=== PATIENT | female | born 1990 | race Caucasian/White ===

== ENCOUNTER → 2016-08-06 | Outpatient (CLI) | payer BC ==
[2016-08-06 15:12] VITALS: BP 144/77; PULSE 76; RESP 14; TEMP 98.4; BMI 42.2
--- NOTE | 2016-08-06 15:42 | P.HPBAR ---
Bariatric H&P - History & Physicial H&P Date: 08/06/16 History & Physicial: Visit/CC: sleeve f/u (March 2016) Patient initial contact: Initial weight: 138.062 kg Initial weight in pounds: 304.37 Height: 5 ft 3 in Initial BMI: 53.8 Last weight: Current weight: 108.136 kg Current weight in pounds: 238.40 Current BMI: 42.2 [place] body weight (based on NIH guidelines): 52.163 kg Excess body weight loss: 34.8% The patient is a 26 year-old F who presents for Bariatric Assessment. The patient presents for sleeve follow-up. She is doing quite well. She has minimal GERD symptoms. She denies any dysphagia. She's lost approximately 65 pounds since surgery. Past Medical History Past Medical History: No Reported History Additional Past Medical History / Comment(s): NAUSEA AND VOMITING History of Any Multi-Drug Resistant Organisms: None Reported Past Surgical History: Bariatric Surgery, Cholecystectomy Additional Past Surgical History / Comment(s): right fallopian tube removed May 2015, SLEEVE GASTRECTOMY 03/26/16 Past Anesthesia/Blood Transfusion Reactions: Postoperative Nausea & Vomiting ( PONV) Past Psychological History: Panic Disorder Smoking Status: Never smoker Past Alcohol Use History: None Reported Past Drug Use History: None Reported - Past Family History Sister(s) Family Medical History: Deep Vein Thrombosis (DVT) Mother Additional Family Medical History / Comment(s): HEART PROBLEMS, IRREG RYTHM Father Family Medical History: Hyperlipidemia, Hypertension Surgical - Exam Vital Signs Temp Pulse Resp BP 98.4 F 76 14 144/77 08/06/16 15:06 08/06/16 15:06 08/06/16 15:06 08/06/16 15:06 - General well developed, no distress - Eyes PERRL - Abdomen Abdomen: soft, non tender Bariatric Assessment & Plan Plan: Status post sleeve gastrectomy. Patient's input well. Her weight loss has been excellent. Her GERD symptoms will be observed. She is currently being treated with omeprazole. She'll follow-up one month. Bariatric Checklist Checklist: Plan: Checklist: EGD: 1. Hiatal hernia: 2. H. Pylori: HgbA1c: Vitamin D: Smoking: Never smoker Primary care physician referral: Dr. Allen Psychiatry clearance: Cardiology clearance: Sleep study: Diet journal: VTE risk score: VTE risk level: Rehab needs at discharge:
[2016-08-06 17:04] LABS: CH 28.8; CHCM 31.7; HCT 38.9 % (34.0-46.0); HDW 2.57; HGB 12.4 gm/dL (11.4-16.0); MCH 29.1 pg (25.0-35.0); MCHC 31.9 g/dL (31.0-37.0); MCV 91.2 fL (80.0-100.0); Mean Platelet Volume 7.3; RBC 4.26 m/uL (3.80-5.40); RDW 13.5 % (11.5-15.5); WBC 6.4 k/uL (3.8-10.6)
[2016-08-06 17:28] LABS: ALT 49 U/L (9-52); AST 30 U/L (14-36); Alkaline Phosphatase 80 U/L (38-126); Anion Gap 11 mmol/L; Blood Urea Nitrogen 13 mg/dL (7-17); Carbon Dioxide 25 mmol/L (22-30); Chloride 107 mmol/L (98-107); Glucose 85 mg/dL (74-99); Non-African American GFR(MDRD) >60 (>60 ml/min/1.73 sqM); Potassium 4.9 mmol/L (3.5-5.1); Sodium 143 mmol/L (137-145); Total Bilirubin 0.5 mg/dL (0.2-1.3); Total Protein 6.6 g/dL (6.3-8.2)
[2016-08-06 17:38] LABS: Prealbumin 17 mg/dL (18-36); Total Iron Binding Capacity 342 ug/dL (265-497)
[2016-08-06 18:33] LABS: Vitamin B12 424 pg/mL (239-931)
== END | disposition home or self-care (01) ==
LOC: BARWHC3 14:49
PROVIDERS: ATTEND Surgery
DX: Z48.815 Encounter for surgical aftercare following surgery on the digestive system (principal); Z71.3 Dietary counseling and surveillance; Z98.84 Bariatric surgery status; E66.01 Morbid (severe) obesity due to excess calories; Z68.41 Body mass index [BMI] 40.0-44.9, adult; K21.9 Gastro-esophageal reflux disease without esophagitis; Z79.899 Other long term (current) drug therapy
CPT/HCPCS: 36415; 80053; 82306; 82607; 82746; 83550; 84134; 84425; 84443; 85027; 99211

== ENCOUNTER → 2016-09-10 | Outpatient (CLI) | payer BC ==
[2016-09-10 13:40] VITALS: BP 123/82; PULSE 56; TEMP 98.2; BMI 40.4
--- NOTE | 2016-09-10 14:07 | P.HPBAR ---
Bariatric H&P - History & Physicial H&P Date: 09/10/16 History & Physicial: Visit/CC: 6 MONTH FOLLOW UP VISIT Patient initial contact: Initial weight: 138.062 kg Initial weight in pounds: 304.37 Height: 5 ft 3 in Initial BMI: 53.8 Last weight: Current weight: 103.51 kg Current weight in pounds: 228.20 Current BMI: 40.4 [place] body weight (based on NIH guidelines): 52.163 kg Excess body weight loss: 40.2% The patient is a 26 year-old F who presents for Bariatric Assessment. The patient presents for sleeve gastrectomy follow-up. She states that she got the flu last week. Her entire family was sick. She had a three-day history of nausea vomiting. Patient states that her symptoms have resolved. She denies any nausea or vomiting today. She's able to drink water without any difficulty. She's had minimal GERD symptoms. Past Medical History Past Medical History: No Reported History Additional Past Medical History / Comment(s): NAUSEA AND VOMITING History of Any Multi-Drug Resistant Organisms: None Reported Past Surgical History: Bariatric Surgery, Cholecystectomy Additional Past Surgical History / Comment(s): right fallopian tube removed May 2015, SLEEVE GASTRECTOMY 03/26/16 Past Anesthesia/Blood Transfusion Reactions: Postoperative Nausea & Vomiting ( PONV) Past Psychological History: Panic Disorder Smoking Status: Never smoker Past Alcohol Use History: None Reported Past Drug Use History: None Reported - Past Family History Sister(s) Family Medical History: Deep Vein Thrombosis (DVT) Mother Additional Family Medical History / Comment(s): HEART PROBLEMS, IRREG RYTHM Father Family Medical History: Hyperlipidemia, Hypertension Surgical - Exam Vital Signs Temp Pulse BP 98.2 F 56 L 123/82 09/10/16 13:37 09/10/16 13:37 09/10/16 13:37 - General well developed, no distress - Eyes PERRL - ENT normal pinna - Neck no masses - Respiratory normal expansion - Cardiovascular Rhythm: regular - Abdomen Abdomen: soft, non tender Bariatric Assessment & Plan Plan: Status post sleeve gastrectomy. Patient's is doing well with weight loss. She will follow-up in one month. Her GERD symptoms we will observe. Bariatric Checklist Checklist: Plan: Checklist: EGD: 1. Hiatal hernia: 2. H. Pylori: HgbA1c: Vitamin D: Smoking: Never smoker Primary care physician referral: Dr. Allen Psychiatry clearance: Cardiology clearance: Sleep study: Diet journal: VTE risk score: VTE risk level: Rehab needs at discharge:
== END | disposition home or self-care (01) ==
LOC: BARWHC3 12:50
PROVIDERS: ATTEND Surgery
DX: Z48.815 Encounter for surgical aftercare following surgery on the digestive system (principal); Z71.3 Dietary counseling and surveillance; K21.9 Gastro-esophageal reflux disease without esophagitis; E55.9 Vitamin D deficiency, unspecified; Z98.84 Bariatric surgery status; Z68.41 Body mass index [BMI] 40.0-44.9, adult
CPT/HCPCS: 99211

== ENCOUNTER 2016-09-30 19:53 | Inpatient (IN) | payer BC, OTHER ==
[2016-09-30] MEDS ORDERED: ONDANSETRON 4 MG/2 ML VIAL IVP STA ×2 (21:19→22:51)
[2016-09-30] MEDS ORDERED: SODIUM CHLORIDE 0.9% 500 ML IV STA (21:19)
[2016-09-30] MEDS ORDERED: MORPHINE SULFATE 4 MG/ML SYRINGE IV STA (21:19)
--- NOTE | 2016-09-30 21:23 | ED ---
Abdominal Pain HPI - General Chief Complaint: Abdominal Pain Stated Complaint: NVD Time Seen by Provider: 09/30/16 21:01 Source: patient Mode of arrival: wheelchair Limitations: no limitations - History of Present Illness Initial Comments: This patient is a 26-year-old woman with history of previous gastric sleeve surgery who presents with complaint that she developed vomiting and diarrhea this morning before she went to work. She states that she did go to work today but then was sent home because she was not feeling well. She had developed epigastric pain that she describes as sharp and aching. She has also continued to have multiple episodes of the vomiting and diarrhea. She has not seen any hematemesis or bloody or dark tarry stools. She states that she had similar symptoms to this back in April when she states she had an obstruction of her "upper intestinal tract" following the gastric sleeve surgery. MD Complaint: abdominal pain Onset/Timin -: hour(s) Location: periumbilical, epigastric Radiation: none Migration to: no migration Severity: severe Quality: aching, sharp Consistency: constant Improves With: nothing Worsens With: nothing Associated Symptoms: nausea, vomiting, diarrhea - Related Data Home Medications Medication Instructions Recorded Confirmed Multivitamin [Multivitamins Adult 1 each PO BID 08/06/16 09/30/16 Gummies] Allergies Allergy/AdvReac Type Severity Reaction Status Date / Time amoxicillin [Amoxicillin] AdvReac yeast Verified 09/30/16 20:22 infection Review of Systems ROS Statement: Those systems with pertinent positive or pertinent negative responses have been documented in the HPI. ROS Other: All systems not noted in ROS Statement are negative. Constitutional: Denies: fever, chills, weakness Respiratory: Denies: cough, dyspnea Cardiovascular: Denies: chest pain, syncope Gastrointestinal: Reports: abdominal pain, nausea, vomiting, diarrhea. Denies: hematemesis, melena, hematochezia Genitourinary: Denies: dysuria Musculoskeletal: Denies: back pain Skin: Denies: rash Neurological: Denies: headache, weakness, numbness Past Medical History Past Medical History: No Reported History Additional Past Medical History / Comment(s): NAUSEA AND VOMITING History of Any Multi-Drug Resistant Organisms: None Reported Past Surgical History: Bariatric Surgery, Cholecystectomy Additional Past Surgical History / Comment(s): right fallopian tube removed May 2015, SLEEVE GASTRECTOMY 03/26/16 Past Anesthesia/Blood Transfusion Reactions: Postoperative Nausea & Vomiting ( PONV) Past Psychological History: Panic Disorder Smoking Status: Never smoker Past Alcohol Use History: None Reported Past Drug Use History: None Reported - Past Family History Sister(s) Family Medical History: Deep Vein Thrombosis (DVT) Mother Additional Family Medical History / Comment(s): HEART PROBLEMS, IRREG RYTHM Father Family Medical History: Hyperlipidemia, Hypertension General Exam Limitations: no limitations General appearance: alert, obese Head exam: Present: atraumatic, normocephalic Eye exam: Present: normal appearance. Absent: scleral icterus, conjunctival injection ENT exam: Present: mucous membranes dry Neck exam: Present: normal inspection Respiratory exam: Present: normal lung sounds bilaterally. Absent: respiratory distress, wheezes, rales, rhonchi, stridor Cardiovascular Exam: Present: regular rate, normal rhythm, normal heart sounds. Absent: systolic murmur, diastolic murmur, rubs, gallop GI/Abdominal exam: Present: soft, tenderness (epigastric tenderness), normal bowel sounds. Absent: distended, guarding, rebound, rigid, mass, bruit, pulsatile mass, hernia Extremities exam: Present: normal inspection, normal capillary refill. Absent: pedal edema, calf tenderness Back exam: Present: normal inspection. Absent: CVA tenderness (R), CVA tenderness (L) Skin exam: Present: warm, dry, intact, normal color. Absent: rash, cyanosis, diaphoretic, erythema, petechiae, pallor, mottled Course Vital Signs 09/30/16 09/30/16 20:14 23:03 Temperature 100.1 F H Pulse Rate 106 H 91 Respiratory 22 16 Rate Blood Pressure 143/97 125/59 O2 Sat by Pulse 100 100 Oximetry Medical Decision Making - Medical Decision Making Patient's a 26-year-old woman with nausea, vomiting and abdominal pain. The workup does reveal elevated transaminases levels. I did review with the patient her use of acetaminophen-containing medications and the patient states that she has not had any Tylenol nor to her knowledge any combination medicines. The ultrasound is negative. Discussed case with Dr. Cruz who is covering tonight and will admit the patient for observation. She has had improvement of the vomiting and some improvement in the pain though it does continue. - Lab Data Result diagrams: 09/30/16 21:45 09/30/16 21:45 Lab Results 09/30/16 09/30/16 09/30/16 Range/Units 21:16 21:16 21:45 WBC (3.8-10.6) k/uL RBC (3.80-5.40) m/uL Hgb (11.4-16.0) gm/dL Hct (34.0-46.0) % MCV (80.0-100.0) fL MCH (25.0-35.0) pg MCHC (31.0-37.0) g/dL RDW (11.5-15.5) % Plt Count (150-450) k/uL Neutrophils % % Lymphocytes % % Monocytes % % Eosinophils % % Basophils % % Neutrophils # (1.3-7.7) k/uL Lymphocytes # (1.0-4.8) k/uL Monocytes # (0-1.0) k/uL Eosinophils # (0-0.7) k/uL Basophils # (0-0.2) k/uL Sodium 140 (137-145) mmol/L Potassium 3.7 (3.5-5.1) mmol/L Chloride 105 (98-107) mmol/L Carbon Dioxide 23 (22-30) mmol/L Anion Gap 12 mmol/L BUN 13 (7-17) mg/dL Creatinine 0.69 (0.52-1.04) mg/dL Est GFR (MDRD) Af Amer >60 (>60 ml/min/1.73 sqM) Est GFR (MDRD) Non-Af >60 (>60 ml/min/1.73 sqM) Glucose 94 (74-99) mg/dL Calcium 8.8 (8.4-10.2) mg/dL Total Bilirubin 1.2 (0.2-1.3) mg/dL AST 311 H (14-36) U/L ALT 155 H (9-52) U/L Alkaline Phosphatase 105 (38-126) U/L Total Protein 6.9 (6.3-8.2) g/dL Albumin 4.0 (3.5-5.0) g/dL Amylase 39 (30-110) U/L Lipase 92 (23-300) U/L Urine Color Yellow Urine Appearance Cloudy H (Clear) Urine pH 5.5 (5.0-8.0) Ur Specific [place] 1.028 (1.001-1.035) Urine Protein Trace H (Negative) Urine Glucose (UA) Negative (Negative) Urine Ketones 1+ H (Negative) Urine Blood Negative (Negative) Urine Nitrite Negative (Negative) Urine Bilirubin 1+ H (Negative) Urine Urobilinogen 2.0 (<2.0) mg/dL Ur Leukocyte Esterase Trace H (Negative) Urine RBC <1 (0-5) /hpf Urine WBC 5 (0-5) /hpf Ur Squamous Epith Cells 11 H (0-4) /hpf Calcium Oxalate Crystal Many H (None) /hpf Hyaline Casts 1 (0-2) /lpf Urine Mucus Rare H (None) /hpf Urine HCG, Qual Not Detected (Not Detectd) 09/30/16 Range/Units 21:45 WBC 6.5 (3.8-10.6) k/uL RBC 4.69 (3.80-5.40) m/uL Hgb 13.5 (11.4-16.0) gm/dL Hct 41.7 (34.0-46.0) % MCV 88.8 (80.0-100.0) fL MCH 28.8 (25.0-35.0) pg MCHC 32.4 (31.0-37.0) g/dL RDW 13.2 (11.5-15.5) % Plt Count 225 (150-450) k/uL Neutrophils % 83 % Lymphocytes % 11 % Monocytes % 4 % Eosinophils % 1 % Basophils % 0 % Neutrophils # 5.3 (1.3-7.7) k/uL Lymphocytes # 0.7 L (1.0-4.8) k/uL Monocytes # 0.3 (0-1.0) k/uL Eosinophils # 0.0 (0-0.7) k/uL Basophils # 0.0 (0-0.2) k/uL Sodium (137-145) mmol/L Potassium (3.5-5.1) mmol/L Chloride (98-107) mmol/L Carbon Dioxide (22-30) mmol/L Anion Gap mmol/L BUN (7-17) mg/dL Creatinine (0.52-1.04) mg/dL Est GFR (MDRD) Af Amer (>60 ml/min/1.73 sqM) Est GFR (MDRD) Non-Af (>60 ml/min/1.73 sqM) Glucose (74-99) mg/dL Calcium (8.4-10.2) mg/dL Total Bilirubin (0.2-1.3) mg/dL AST (14-36) U/L ALT (9-52) U/L Alkaline Phosphatase (38-126) U/L Total Protein (6.3-8.2) g/dL Albumin (3.5-5.0) g/dL Amylase (30-110) U/L Lipase (23-300) U/L Urine Color Urine Appearance (Clear) Urine pH (5.0-8.0) Ur Specific [place] (1.001-1.035) Urine Protein (Negative) Urine Glucose (UA) (Negative) Urine Ketones (Negative) Urine Blood (Negative) Urine Nitrite (Negative) Urine Bilirubin (Negative) Urine Urobilinogen (<2.0) mg/dL Ur Leukocyte Esterase (Negative) Urine RBC (0-5) /hpf Urine WBC (0-5) /hpf Ur Squamous Epith Cells (0-4) /hpf Calcium Oxalate Crystal (None) /hpf Hyaline Casts (0-2) /lpf Urine Mucus (None) /hpf Urine HCG, Qual (Not Detectd) Disposition Clinical Impression: Abdominal pain Disposition: ADMITTED IP TO THIS HOSP Condition: Fair
[2016-09-30 21:31] LABS: Appearance,Urine Cloudy (Clear); Bilirubin,Urine 1+ (Negative); Calcium Oxalate Crystals,Urine Many /hpf; Glucose,Urine (UA) Negative (Negative); Ketones,Urine 1+ (Negative); Leukocyte Esterase,Urine Trace (Negative); Mucus,Urine Rare /hpf; Nitrite,Urine Negative (Negative); PH, Urine 5.5 (5.0-8.0); Particle Count 5799; Protein,Urine Trace (Negative); RBC,Urine <1 /hpf (0-5); Specific Gravity,Urine 1.028 (1.001-1.035); Squamous Epithelial Cell,Urine 11 /hpf (0-4); UA Billing (MACRO vs. MICRO) MICRO; WBC,Urine 5 /hpf (0-5)
[2016-09-30 21:51] LABS: Basophils % (A) 0 %; CHCM 32.7; Eosinophils % (A) 1 %; HCT 41.7 % (34.0-46.0); HDW 2.61; HGB 13.5 gm/dL (11.4-16.0); Luc # (Auto) 0.08; Luc % (Auto) 1; Lymphocytes # (A) 0.7 k/uL (1.0-4.8); Lymphocytes % (A) 11 %; MCH 28.8 pg (25.0-35.0); MCHC 32.4 g/dL (31.0-37.0); MCV 88.8 fL (80.0-100.0); Mean Platelet Volume 7.3; Monocytes # (A) 0.3 k/uL (0-1.0); Monocytes % (A) 4 %; Neutrophils # (A) 5.3 k/uL (1.3-7.7); Neutrophils % (A) 83 %; RBC 4.69 m/uL (3.80-5.40); RDW 13.2 % (11.5-15.5); WBC 6.5 k/uL (3.8-10.6); WBC (Perox) 6.54
[2016-09-30 22:01] LABS: ALT 155 U/L (9-52); AST 311 U/L (14-36); Alkaline Phosphatase 105 U/L (38-126); Amylase 39 U/L (30-110); Anion Gap 12 mmol/L; Blood Urea Nitrogen 13 mg/dL (7-17); Calcium 8.8 mg/dL (8.4-10.2); Carbon Dioxide 23 mmol/L (22-30); Chloride 105 mmol/L (98-107); Glucose 94 mg/dL (74-99); Non-African American GFR(MDRD) >60 (>60 ml/min/1.73 sqM); Potassium 3.7 mmol/L (3.5-5.1); Sodium 140 mmol/L (137-145); Total Bilirubin 1.2 mg/dL (0.2-1.3); Total Protein 6.9 g/dL (6.3-8.2)
--- NOTE | 2016-09-30 22:01 | XR ---
EXAMINATION TYPE: XR abdomen acute w cxr DATE OF EXAM: 09/30/2016 9:55 PM CLINICAL HISTORY: Pain per order. N/V/D per patient. TECHNIQUE: Single frontal view of chest is obtained. Supine and upright views of the abdomen are acq uired. COMPARISON: CXR 07-13-2014. CT abdomen and pelvis 05-11-2016. FINDINGS: The lungs are grossly clear without pleural effusion or pneumothorax. Cardiac silhouette size appears within normal limits. Osseous structures are intact. Sutures epigastric region from sleeve redemonstrated. Gas is noted in nondistended small bowel loops . Gas and fecal material is seen in nondistended colon. Allegra. clips redemonstrated. No pneumoperi toneum, visceromegaly, or suspicious calcification is identified. The osseous structures are intact. IMPRESSION: 1. No acute pulmonary process. 2. Overall nonspecific but likely nonobstructive bowel gas pattern.
[2016-09-30] MEDS ORDERED: HYDROmorphone 1 MG/ML 1 ML SYRINGE IVP STA (22:51)
--- NOTE | 2016-10-01 01:23 | US ---
EXAM: US Abdomen Complete. CLINICAL HISTORY: Reason: Pain, ATTN RUQ. TECHNIQUE: Real-time ultrasound of the abdomen (complete) with image documentation. COMPARISON: CT abdomen and pelvis, 05/11/16 FINDINGS: Liver: Liver measures 13.3 cm. No intrahepatic bile duct dilation. Gallbladder: Gallbladder surgically absent. Common bile duct: CBD measures 3.6 mm. No stones. No dilation. Pancreas: Unremarkable as visualized. Kidneys: Right kidney measures 10.3 cm long. No stones. No hydronephrosis. IMPRESSION: No acute findings. Gallbladder surgically absent.
[2016-10-01] MEDS ORDERED: NALOXONE 0.4 MG/ML 1 ML VIAL IV PRN (02:43)
[2016-10-01] MEDS ORDERED: ONDANSETRON 4 MG/2 ML VIAL IVP PRN (02:43)
[2016-10-01] MEDS ORDERED: SODIUM CHLORIDE 0.9% 1,000 ML IV SCH (02:45)
[2016-10-01] MEDS: FAMOTIDINE 20 MG TAB PO SCH ×2 (09:07→21:00)
[2016-10-01 11:32] LABS: Glucose,Whole Blood 72 mg/dL (75-99)
[2016-10-01] MEDS ORDERED: IOHEXOL 350 MG/ML 25 ML BOTTLE (ORAL USE) PO PRN (12:38)
[2016-10-01] MEDS ORDERED: RX INFO: IV CONTRAST WAS GIVEN 1 EACH MISC MISCELLANE PRN (12:38)
--- NOTE | 2016-10-01 12:42 | P.GSHP ---
History of Present Illness H&P Date: 10/01/16 Chief Complaint: Abdominal pain Patient hospitalized through the emergency department last night with complaints of abdominal pain nausea vomiting and diarrhea. She had a small amount of blood within the emesis on one occasion. She is a patient of Dr. Neely and underwent sleeve gastrectomy in March of last year. Apparently postoperatively she had an episode of a bowel obstruction requiring a one-week hospitalization. On this occasion she first began feeling ill a day or so prior to arrival. She was having some loose stools as well. She thought it may have been related to something that she had eaten. Stools have been brownish in color. No fevers. Her liver enzymes were elevated. She is post cholecystectomy in 2007. White blood cell count amylase and lipase are all normal. She is afebrile. She is still nauseous. No further stool since her hospitalization. Pain is in the upper midabdomen. An ultrasound was done which was normal. No additional studies were performed. She had a T-max of 100.1 on arrival. - Review of Systems Comment: The patient denies any acute changes in his vision or hearing, no dysphagia or odynophagia, no chest pain or shortness of breath, no dysuria or hematuria, no headache, no runny nose, no rectal bleeding or melena, no unexplained weight loss Past Medical History Past Medical History: No Reported History Additional Past Medical History / Comment(s): NAUSEA AND VOMITING History of Any Multi-Drug Resistant Organisms: None Reported Past Surgical History: Bariatric Surgery, Cholecystectomy Additional Past Surgical History / Comment(s): right fallopian tube removed May 2015, SLEEVE GASTRECTOMY 03/26/16 Past Anesthesia/Blood Transfusion Reactions: Postoperative Nausea & Vomiting ( PONV) Past Psychological History: Panic Disorder Smoking Status: Never smoker Past Alcohol Use History: None Reported Past Drug Use History: None Reported - Past Family History Sister(s) Family Medical History: Deep Vein Thrombosis (DVT) Mother Family Medical History: Hyperlipidemia, Hypertension Additional Family Medical History / Comment(s): HEART PROBLEMS, IRREG RYTHM Father Family Medical History: Hyperlipidemia, Hypertension Medications and Allergies Home Medications Medication Instructions Recorded Confirmed Type Multivitamin [Multivitamins Adult 1 tab PO BID 08/06/16 10/01/16 History Gummies] Allergies Allergy/AdvReac Type Severity Reaction Status Date / Time amoxicillin [Amoxicillin] AdvReac yeast Verified 10/01/16 08:37 infection Surgical - Exam Vital Signs Temp Pulse Resp BP Pulse Ox 100.1 F H 106 H 22 143/97 100 09/30/16 20:14 09/30/16 20:14 09/30/16 20:14 09/30/16 20:14 09/30/16 20:14 Physical exam: General: Well-developed, well-nourished HEENT: Normocephalic, sclerae nonicteric Abdomen: Mild upper abdominal tenderness, nondistended Extremities: No edema Neuro: Alert and oriented Results - Labs 09/30/16 21:45 09/30/16 21:45 Abnormal Lab Results - Last 24 Hours (Table) 10/01/16 Range/Units 11:31 POC Glucose (mg/dL) 72 L (75-99) mg/dL Assessment and Plan (1) Abdominal pain Narrative/Plan: Abdominal pain with elevated liver enzymes. Will order a CT abdomen and pelvis to better evaluate this patient's symptoms. Continue nothing by mouth for now. Repeat lab work pending for today. Status: Acute
[2016-10-01] MEDS: DEXTROSE 5%-0.9% NACL 1,000 ML IV SCH ×2 (13:12→21:02)
[2016-10-01 13:48] LABS: Basophils % (A) 0 %; CH 29.2; CHCM 32.5; Eosinophils # (A) 0.1 k/uL (0-0.7); Eosinophils % (A) 4 %; HCT 37.9 % (34.0-46.0); HDW 2.59; Luc # (Auto) 0.08; Luc % (Auto) 3; Lymphocytes # (A) 0.8 k/uL (1.0-4.8); Lymphocytes % (A) 28 %; MCH 28.7 pg (25.0-35.0); MCHC 31.7 g/dL (31.0-37.0); MCV 90.4 fL (80.0-100.0); Mean Platelet Volume 7.9; Monocytes # (A) 0.2 k/uL (0-1.0); Monocytes % (A) 7 %; Neutrophils # (A) 1.7 k/uL (1.3-7.7); Neutrophils % (A) 58 %; RDW 13.4 % (11.5-15.5); WBC 2.9 k/uL (3.8-10.6); WBC (Perox) 3.07
[2016-10-01 13:54] LABS: ALT 930 U/L (9-52); Alkaline Phosphatase 135 U/L (38-126); Anion Gap 10 mmol/L; Blood Urea Nitrogen 11 mg/dL (7-17); Calcium 8.5 mg/dL (8.4-10.2); Carbon Dioxide 23 mmol/L (22-30); Chloride 108 mmol/L (98-107); Glucose 84 mg/dL (74-99); Non-African American GFR(MDRD) >60 (>60 ml/min/1.73 sqM); Sodium 141 mmol/L (137-145); Total Bilirubin 1.3 mg/dL (0.2-1.3); Total Protein 5.9 g/dL (6.3-8.2)
[2016-10-01 14:06] LABS: AST 959 U/L (14-36)
--- NOTE | 2016-10-01 14:17 | P.CONS ---
History of Present Illness - Reason for Consult Consult date: 10/01/16 Requesting physician: Aaron Cruz - Chief Complaint Right upper quadrant abdominal pain radiating to the back - History of Present Illness There is a 26-year-old morbidly obese female who presents to the hospital via the emergency room with acute abdominal pain nausea vomiting and loose stool patient had a small amount of blood with emesis on one occasion she is patient of Dr. 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 He's had no fevers liver enzymes are elevated. Post cholecystectomy in 2007. White cell count Amylase lipase are all normal and she is afebrile patient is still nauseous and has moderate to significant abdominal pain T-max was approximately 100.1 on arrival to the emergency room Review of Systems Constitutional: Reports as per HPI Ears, nose, mouth and throat: Reports as per HPI Cardiovascular: Reports as per HPI Respiratory: Reports as per HPI Gastrointestinal: Reports abdominal pain, Reports nausea, Reports vomiting Past Medical History Past Medical History: No Reported History Additional Past Medical History / Comment(s): NAUSEA AND VOMITING, history of sleeve gastrectomy as well as laparoscopic gallbladder surgery as well History of Any Multi-Drug Resistant Organisms: None Reported Past Surgical History: Bariatric Surgery, Cholecystectomy Additional Past Surgical History / Comment(s): right fallopian tube removed May 2015, SLEEVE GASTRECTOMY 03/26/16 Past Anesthesia/Blood Transfusion Reactions: Postoperative Nausea & Vomiting ( PONV) Past Psychological History: Panic Disorder Smoking Status: Never smoker Past Alcohol Use History: None Reported Past Drug Use History: None Reported - Past Family History Sister(s) Family Medical History: Deep Vein Thrombosis (DVT) Mother Family Medical History: Hyperlipidemia, Hypertension Additional Family Medical History / Comment(s): HEART PROBLEMS, IRREG RYTHM Father Family Medical History: Hyperlipidemia, Hypertension Medications and Allergies Home Medications Medication Instructions Recorded Confirmed Type Multivitamin [Multivitamins Adult 1 tab PO BID 08/06/16 10/01/16 History Gummies] Allergies Allergy/AdvReac Type Severity Reaction Status Date / Time amoxicillin [Amoxicillin] AdvReac yeast Verified 10/01/16 08:37 infection Physical Exam Osteopathic Statement: *. No significant issues noted on an osteopathic structural exam other than those noted in the History and Physical/Consult. Vitals: Vital Signs Temp Pulse Pulse Resp BP Pulse Ox 10/01/16 14:02 98.3 F 57 L 17 113/76 99 10/01/16 03:30 98.6 F 94 18 133/75 Intake and Output 09/30/16 10/01/16 10/01/16 22:59 06:59 14:59 Intake Total 350 100 Balance 350 100 Intake: Intake, IV Titration 200 Amount Sodium Chloride 0.9% 1, 200 000 ml @ 100 mls/hr IV . Q10H JULIO Rx#:[id number] Oral 150 100 Other: Voiding Method Toilet # Voids 1 General: [Patient awake, alert and oriented times 3. Patient in no acute distress.] HEENT: [PERRL. EOMI. No pharyngeal erythema or exudate.] Neck: [No adenopathy.] Cardiac: [Heart regular in rate and rhythm. No S3. No S4. No clicks, rubs. No murmur.] Lungs: [Clear to auscultation bilaterally.] Abdomen: [No mass. No organomegaly. Bowel sounds presnt and pain right upper quadrant radiating to mid epigastric on minimal palpation patient does complains of significant pain Extremes: [No edema no cyanosis no claudication normal pulses] : [] Musculoskeletal: [No joint erythema, edema or tenderness.] Skin: [No rash.] Neurologic: [No lateralizing deficits. CN II - XII grossly intact.] Lymphatic: [No adenopathy.] Results CBC & Chem 7: 10/01/16 13:20 10/01/16 13:20 Labs: Abnormal Lab Results - Last 24 Hours (Table) 10/01/16 10/01/16 10/01/16 Range/Units 11:31 13:20 13:20 WBC 2.9 L (3.8-10.6) k/uL Lymphocytes # 0.8 L (1.0-4.8) k/uL Chloride 108 H (98-107) mmol/L POC Glucose (mg/dL) 72 L (75-99) mg/dL ALT 930 H (9-52) U/L Alkaline Phosphatase 135 H (38-126) U/L Total Protein 5.9 L (6.3-8.2) g/dL Albumin 3.2 L (3.5-5.0) g/dL Assessment and Plan (1) Abdominal pain Narrative/Plan: Elevated liver enzymes and moderate to severe abdominal pain right upper quadrant CT abdomen and pelvis is pending Status: Acute Plan: Thank you Dr. Cruz for this message Suggesting consultation awaiting results of CAT scan at this time
--- NOTE | 2016-10-01 15:29 | CT ---
EXAMINATION TYPE: CT abdomen pelvis w con DATE OF EXAM: 10/01/2016 3:02 PM COMPARISON: 05/11/2016 HISTORY: Right upper quadrant pain and vomiting CT DLP: 1667 mGycm Automated exposure control for dose reduction was used. CONTRAST: CT scan of the abdomen pelvis is performed , patient injected with 100 mL of Omnipaque 300. FINDINGS- LUNG BASES- No significant abnormality is appreciated. LIVER/GB-previous cholecystectomy noted. There is a wedge-shaped area of low attenuation near the dom e of the liver involving the right lobe. Differential include hepatic infarct. Localized fatty infilt ration also a consideration. Hepatic injury felt less likely but should be correlated with the patien t's symptoms and history. PANCREAS- No gross abnormality is seen. SPLEEN- No gross abnormality is seen. ADRENALS- No gross abnormality is seen. KIDNEYS/BLADDER- no hydronephrosis nephrolithiasis or renal mass. BOWEL-a surgical change involving the stomach noted. No abnormal attenuation is seen along the postsu rgical gastric sleeve site.. LYMPH NODES- No greater than 1cm abdominal or pelvic lymph nodes areappreciated. OSSEOUS STRUCTURES- No significant abnormality is seen. OTHER-aorta of normal caliber. 1.5 cm right ovarian cyst noted. IMPRESSION- 1. There is a wedge-shaped have defect extending the outer margin of the liver which is not definitiv papo seen on the previous exam. Finding may represent an area of localized infarction of the liver whi ch would be unusual given the dual blood supply but should be correlated clinically. Localized fatty infiltration or hepatic injury not excluded although there is no surrounding sizable fluid collection . Correlate clinically.
[2016-10-01 16:40] LABS: Glucose,Whole Blood 83 mg/dL (75-99)
[2016-10-01 17:17] LABS: Amylase 30 U/L (30-110)
[2016-10-01] MEDS: MORPHINE SULFATE 4 MG/ML SYRINGE IV PRN (18:44)
[2016-10-01 21:06] LABS: Hepatitis B Surface Ag Index 0.11
[2016-10-01 21:06] LABS: Glucose,Whole Blood 84 mg/dL (75-99)
[2016-10-01 21:12] LABS: Hepatitis B Core IgM Index 0.03
[2016-10-01 21:24] LABS: Hepatitis C Virus IgG Index 0.02
[2016-10-01 21:26] LABS: Hepatitis C Virus IgG Ab Negative (Negative)
[2016-10-02] MEDS: MORPHINE SULFATE 4 MG/ML SYRINGE IV PRN ×2 (02:45→19:20)
[2016-10-02 07:20] LABS: Basophils % (A) 1 %; CH 28.8; Eosinophils # (A) 0.2 k/uL (0-0.7); Eosinophils % (A) 8 %; HCT 37.6 % (34.0-46.0); HDW 2.64; Luc # (Auto) 0.09; Luc % (Auto) 3; Lymphocytes # (A) 0.9 k/uL (1.0-4.8); Lymphocytes % (A) 29 %; MCV 90.6 fL (80.0-100.0); Mean Platelet Volume 8.1; Monocytes # (A) 0.2 k/uL (0-1.0); Monocytes % (A) 8 %; Neutrophils # (A) 1.6 k/uL (1.3-7.7); Neutrophils % (A) 52 %; RBC 4.15 m/uL (3.80-5.40); RDW 13.3 % (11.5-15.5); WBC 3.1 k/uL (3.8-10.6); WBC (Perox) 3.22
[2016-10-02 07:44] LABS: Glucose,Whole Blood 78 mg/dL (75-99)
[2016-10-02 07:59] LABS: ALT 693 U/L (9-52); AST 444 U/L (14-36); Alkaline Phosphatase 154 U/L (38-126); Anion Gap 8 mmol/L; Blood Urea Nitrogen 8 mg/dL (7-17); Calcium 8.6 mg/dL (8.4-10.2); Carbon Dioxide 26 mmol/L (22-30); Chloride 109 mmol/L (98-107); Glucose 93 mg/dL (74-99); Non-African American GFR(MDRD) >60 (>60 ml/min/1.73 sqM); Sodium 143 mmol/L (137-145); Total Bilirubin 1.3 mg/dL (0.2-1.3); Total Protein 5.6 g/dL (6.3-8.2)
[2016-10-02] MEDS: FAMOTIDINE 20 MG TAB PO SCH ×2 (08:01→19:51)
[2016-10-02] MEDS: DEXTROSE 5%-0.9% NACL 1,000 ML IV SCH ×2 (08:02→17:19)
[2016-10-02] MEDS: ONDANSETRON 4 MG/2 ML VIAL IVP PRN (09:17)
[2016-10-02] MEDS: LEVOFLOXACIN 750MG-D5W PMX 750 MG in DEXTROSE/WATER 1 150ML.BAG IVPB SCH ×2 (11:04→14:05)
[2016-10-02 12:15] LABS: Glucose,Whole Blood 91 mg/dL (75-99)
--- NOTE | 2016-10-02 13:10 | P.PN ---
Subjective Principal diagnosis: Abdominal pain Patient is a 26-year-old female with medical history significant for sleeve gastrectomy and cholecystectomy admitted with acute right-sided abdominal pain associated with nausea, vomiting, and loose stools [address] of abdomen and pelvis with evidence of wedge-shaped area of low attenuation in the dome of the liver involving the right lobe with differential diagnosis of hepatic infarct, possible fatty infiltration, or hepatic injury per radiologist. AST and ALT improved from yesterday. Alkaline phosphatase increased from yesterday. Total bilirubin within normal limits. Hepatitis panel negative. Hematology and gastroenterology has been consulted. Patient afebrile. WBC 3.1. Patient continues to complain of mostly right upper quadrant abdominal pain radiating to her back described as dull associated with nausea and vomiting. Patient reports sweats. Denies shortness of breath, chest pain, leg swelling, numbness or tingling. Patient is urinating without difficulty. Patient reports flatus without bowel movements. Objective - Vital Signs Vital signs: Vital Signs Temp 97.8 F 10/02/16 07:00 Pulse 64 10/02/16 08:00 Resp 16 10/02/16 08:00 BP 113/74 10/02/16 07:00 Pulse Ox 100 10/02/16 07:00 Intake & Output 10/01/16 10/02/16 10/02/16 18:59 06:59 18:59 Intake Total 1650 100 120 Balance 1650 100 120 Weight 99.79 kg Intake: Intake, IV Titration 750 Amount Dextrose 5%-0.9% NaCl 1, 750 000 ml @ 100 mls/hr IV . Q10H [facility] Rx#:[id number] Oral 900 100 120 Other: Voiding Method Toilet Toilet # Voids 1 1 - Exam GENERAL: Pt awake and alert, well-appearing, well-nourished, and in no acute distress. HEAD: Atraumatic, normocephalic. EYES: Pupils equal, round, and reactive to light, extraocular movements intact, sclera anicteric, conjunctiva are normal. ENT: Moist mucous membranes. NECK: Supple without lymphadenopathy or JVD. LUNGS: Breath sounds clear to auscultation bilaterally. No wheezes, rales, or rhonchi. HEART: Heart S1, S2, no S3 or S4. Regular rate and rhythm. No murmurs, rubs or gallops. ABDOMEN: Soft, right upper quadrant tenderness, nondistended, normoactive bowel sounds. No guarding, no rebound. No masses or organomegaly appreciated. EXTREMITIES: Palpable peripheral pulses. No edema. No calf tenderness. NEUROLOGICAL: Pt oriented x 3. Cranial nerves II through XII grossly intact. Strength and sensation grossly intact. PSYCH: Normal mood, normal affect. SKIN: Warm, dry, intact. Normal turgor. No rashes or lesions. - Labs CBC & Chem 7: 10/02/16 06:48 10/02/16 06:48 Labs: Abnormal Lab Results - Last 24 Hours (Table) 10/01/16 10/01/16 10/02/16 Range/Units 13:20 13:20 06:48 WBC 2.9 L 3.1 L (3.8-10.6) k/uL Lymphocytes # 0.8 L 0.9 L (1.0-4.8) k/uL Chloride 108 H (98-107) mmol/L AST 959 H (14-36) U/L ALT 930 H (9-52) U/L Alkaline Phosphatase 135 H (38-126) U/L Total Protein 5.9 L (6.3-8.2) g/dL Albumin 3.2 L (3.5-5.0) g/dL 10/02/16 Range/Units 06:48 WBC (3.8-10.6) k/uL Lymphocytes # (1.0-4.8) k/uL Chloride 109 H (98-107) mmol/L AST 444 H (14-36) U/L ALT 693 H (9-52) U/L Alkaline Phosphatase 154 H (38-126) U/L Total Protein 5.6 L (6.3-8.2) g/dL Albumin 3.0 L (3.5-5.0) g/dL Assessment and Plan Plan: Impression: 1. Right upper quadrant abdominal pain, present on admission, associated with nausea, vomiting, and diarrhea. 2. Elevated liver enzymes. 3. Wedge-shaped area of low attenuation near dome of liver involving right lobe with differential diagnosis of hepatic infarct, fatty infiltration, or hepatic injury. 4. Leukopenia. 5. 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 6. History of laparoscopic cholecystectomy. Plan: 1. Continue to monitor patient. Continue to follow with general surgery, GI service, and hematology. Did speak with Dr. Cruz and patient will be started on IV Levaquin for empiric coverage for possible underlying infectious process. Continue symptomatic and pain management. Continue IV hydration. Continue GI and DVT prophylaxis. Repeat CBC, CMP in a.m. The above impression and plan have been discussed and directed by Dr. Erickson. Epifanio CHAUDHARI acting as scribe for Dr. Erickson.
[2016-10-02] MEDS: LEVOFLOXACIN 750 MG TAB PO SCH (14:35)
[2016-10-02 17:20] LABS: Glucose,Whole Blood 104 mg/dL (75-99)
[2016-10-02] MEDS ORDERED: HYDROmorphone 1 MG/ML 1 ML SYRINGE IVP STA (20:31)
[2016-10-02 20:45] LABS: Glucose,Whole Blood 90 mg/dL (75-99)
[2016-10-02] MEDS ORDERED: HYDROmorphone 1 MG/ML 1 ML SYRINGE IVP PRN (21:48)
--- NOTE | 2016-10-02 21:52 | P.PN ---
Subjective Principal diagnosis: abdominal pain patient apparently had been doing fairly well today. She was hoping to go home. This evening per the family the pain became more severe. The mother believes that she was trying to minimize her symptoms so that she could go home after she was told she was staying she began to exhibit more symptoms. Her pain she says is stabbing in nature and present in the right upper abdomen. There is some radiation of the back. No nausea or vomiting at this point. She was eating her diet earlier today. Her liver enzymes which went up yesterday did improved today. The patient was seen by hematology and the CAT scan was apparently reviewed a second time. The likelihood of a liver infarct on that review per hematology was quite low. Isolated fatty infiltration of the liver was suspected. Underlying choledocholithiasis or cholangitis was suspected as the possible etiology for the elevation of liver enzymes. A consultation to GI was placed and I believe that is still pending at this time. Objective - Vital Signs Vital signs: Vital Signs Temp 98.2 F 10/02/16 15:00 Pulse 66 10/02/16 16:00 Resp 16 10/02/16 16:00 BP 105/69 10/02/16 15:00 Pulse Ox 99 10/02/16 15:00 Intake & Output 10/02/16 10/02/16 10/03/16 06:59 18:59 06:59 Intake Total 100 520 Balance 100 520 Weight 99.79 kg Intake: Intake, IV Titration 400 Amount Dextrose 5%-0.9% NaCl 1, 400 000 ml @ 100 mls/hr IV . Q10H [facility] Rx#:[id number] Oral 100 120 Other: Voiding Method Toilet Toilet # Voids 1 1 - Exam abdomen: Soft, mild right upper quadrant tenderness, no rebound or guarding - Labs CBC & Chem 7: 10/02/16 06:48 10/02/16 06:48 Labs: Abnormal Lab Results - Last 24 Hours (Table) 10/02/16 10/02/16 10/02/16 Range/Units 06:48 06:48 17:03 WBC 3.1 L (3.8-10.6) k/uL Lymphocytes # 0.9 L (1.0-4.8) k/uL Chloride 109 H (98-107) mmol/L POC Glucose (mg/dL) 104 H (75-99) mg/dL AST 444 H (14-36) U/L ALT 693 H (9-52) U/L Alkaline Phosphatase 154 H (38-126) U/L Total Protein 5.6 L (6.3-8.2) g/dL Albumin 3.0 L (3.5-5.0) g/dL Assessment and Plan (1) Abdominal pain Narrative/Plan: we'll plan repeat lab work in a.m. Will switch to nothing by mouth until this patient's pain is improved. Add both Dilaudid and Toradol for pain control. Await GI evaluations. Status: Acute
--- NOTE | 2016-10-03 00:58 | P.CONS ---
History of Present Illness - Reason for Consult Consult date: 10/03/16 Possible hepatic infarct - History of Present Illness The patient is a 22-year-old lady, with a prior history of bariatric surgery a few years ago. The patient came to [facility] ER as, she developed right upper quadrant pain, as well as some sweats, fever nausea and vomiting. Liver enzymes were also found to be quite elevated. She was therefore admitted for further management. Ultrasound of the abdomen, did not show any specific liver abnormality. A computed tomography scan of the abdomen and pelvis was done, which noted a possible infarct in the hepatic dome on the right. This appeared to be a different finding compared to a computed tomography scan done in 04/29, when the patient was admitted with nausea vomiting and diarrhea. Consult was therefore placed for further evaluation and recommendations. Patient denies any prior history of venous or arterial thrombo embolism, or any suspicious family history. She denies smoking, or use of any oral contraceptives or steroids. She also denies any cardiac history. Review of Systems Constitutional: Reports chills, Reports fever, Reports poor appetite Eyes: denies blurred vision, denies pain Ears: deny: decreased hearing, ear discharge, earache, tinnitus Ears, nose, mouth and throat: Denies headache, Denies sore throat Cardiovascular: Denies chest pain, Denies shortness of breath Respiratory: Denies cough Gastrointestinal: Reports abdominal pain, Reports nausea, Reports vomiting Genitourinary: Denies dysuria, Denies hematuria Musculoskeletal: Denies myalgias Integumentary: Denies pruritus, Denies rash Neurological: Denies numbness, Denies weakness Psychiatric: Reports anxiety Endocrine: Reports fatigue Hematologic/Lymphatic: Reports as per HPI Past Medical History Past Medical History: No Reported History Additional Past Medical History / Comment(s): NAUSEA AND VOMITING, history of sleeve gastrectomy as well as laparoscopic gallbladder surgery as well History of Any Multi-Drug Resistant Organisms: None Reported Past Surgical History: Bariatric Surgery, Cholecystectomy Additional Past Surgical History / Comment(s): right fallopian tube removed May 2015, SLEEVE GASTRECTOMY 03/26/16 Past Anesthesia/Blood Transfusion Reactions: Postoperative Nausea & Vomiting ( PONV) Past Psychological History: Panic Disorder Smoking Status: Never smoker Past Alcohol Use History: None Reported Past Drug Use History: None Reported - Past Family History Sister(s) Family Medical History: Deep Vein Thrombosis (DVT) Mother Family Medical History: Hyperlipidemia, Hypertension Additional Family Medical History / Comment(s): HEART PROBLEMS, IRREG RYTHM Father Family Medical History: Hyperlipidemia, Hypertension Medications and Allergies Home Medications Medication Instructions Recorded Confirmed Type Multivitamin [Multivitamins Adult 1 tab PO BID 08/06/16 10/01/16 History Gummies] Allergies Allergy/AdvReac Type Severity Reaction Status Date / Time amoxicillin [Amoxicillin] AdvReac yeast Verified 10/01/16 08:37 infection Physical Exam Vitals: Vital Signs Temp Pulse Resp BP Pulse Ox 10/02/16 22:50 66 16 111/74 100 10/02/16 20:00 97.2 F L 64 16 111/69 98 10/02/16 16:00 66 16 10/02/16 15:00 98.2 F 66 16 105/69 99 10/02/16 08:00 64 16 10/02/16 07:00 97.8 F 64 16 113/74 100 10/02/16 02:31 96.9 F L 58 L 16 101/71 100 Intake and Output 10/02/16 10/02/16 10/03/16 14:59 22:59 06:59 Intake Total 520 Balance 520 Intake: Intake, IV Titration 400 Amount Dextrose 5%-0.9% NaCl 1, 400 000 ml @ 100 mls/hr IV . Q10H [facility] Rx#:[id number] Oral 120 Other: Voiding Method Toilet Toilet # Voids 1 1 Weight 99.79 kg 99.79 kg Patient Weight 10/03/16 06:59 Weight 99.79 kg - Constitutional General appearance: no acute distress - EENT Eyes: EOMI, PERRLA ENT: hearing grossly normal, normal oropharynx - Neck Neck: no lymphadenopathy Thyroid: bilateral: normal size - Respiratory Respiratory: bilateral: CTA - Cardiovascular Rhythm: regular Heart sounds: normal: S1, S2 - Gastrointestinal General gastrointestinal: normal bowel sounds, soft Localized gastrointestinal: tender: RUQ - Neurologic Neurologic: CNII-XII intact - Musculoskeletal Musculoskeletal: generalized weakness, strength equal bilaterally - Psychiatric Psychiatric: A&O x's 3, appropriate affect Results CBC & Chem 7: 10/02/16 06:48 10/02/16 06:48 Labs: Abnormal Lab Results - Last 24 Hours (Table) 10/02/16 10/02/1617 Range/Units 06:48 06:48 17:03 WBC 3.1 L (3.8-10.6) k/uL Lymphocytes # 0.9 L (1.0-4.8) k/uL Chloride 109 H (98-107) mmol/L POC Glucose (mg/dL) 104 H (75-99) mg/dL AST 444 H (14-36) U/L ALT 693 H (9-52) U/L Alkaline Phosphatase 154 H (38-126) U/L Total Protein 5.6 L (6.3-8.2) g/dL Albumin 3.0 L (3.5-5.0) g/dL Chest x-ray: report reviewed CT scan - abdomen: report reviewed CT scan - pelvis: report reviewed US - abdomen: report reviewed Assessment and Plan (1) Abdominal pain Narrative/Plan: There is concern for hepatic infarct, as the reason for presentation. The current computed tomography scan, as well as previous computed tomography scan from 04/29 were both reviewed personally. Results were also discussed with radiology, and Dr. Cruz. Hepatic infarcts are extremely rare, because of the double blood supply in the liver. The patient has no risk factors for thromboembolism, or personal or family history for the same . For my discussion with radiology, they felt that area did show delayed filling, and was therefore much less likely to be an infarct. Limited fat infiltration was felt to be much more likely. Even in patients with known hypercoagulable states, hepatic infarcts would be extremely rare. Based on the above, at this time it appears to be much less likely the patient even has hepatic infarct. Therefore , anticoagulation or hypercoagulable state testing is not justified at this point. Per my discussion of Dr. Cruz, an echocardiogram may be considered to rule out a cardiac thrombus. The patient does not have any cardiac risk factors. This would be however, a reasonable modality for further workup. Per my discussion with radiology, there did appear to be any atherosclerotic changes in the visualized arteries Status: Acute
[2016-10-03] MEDS: KETOROLAC 30 MG/ML 1 ML VIAL IVP SCH ×4 (01:58→17:59)
[2016-10-03] MEDS: DEXTROSE 5%-0.9% NACL 1,000 ML IV SCH ×2 (05:12→17:59)
[2016-10-03 07:00] LABS: Glucose,Whole Blood 72 mg/dL (75-99)
[2016-10-03 07:07] LABS: Basophils % (A) 1 %; CH 28.5; CHCM 31.5; Eosinophils # (A) 0.2 k/uL (0-0.7); Eosinophils % (A) 5 %; HCT 35.3 % (34.0-46.0); HDW 2.61; HGB 11.2 gm/dL (11.4-16.0); Hypochromasia Slight; Luc # (Auto) 0.18; Luc % (Auto) 4; Lymphocytes # (A) 1.2 k/uL (1.0-4.8); Lymphocytes % (A) 28 %; MCH 28.9 pg (25.0-35.0); MCHC 31.8 g/dL (31.0-37.0); MCV 90.9 fL (80.0-100.0); Mean Platelet Volume 7.2; Monocytes # (A) 0.2 k/uL (0-1.0); Monocytes % (A) 5 %; Neutrophils # (A) 2.3 k/uL (1.3-7.7); Neutrophils % (A) 57 %; RBC 3.89 m/uL (3.80-5.40); RDW 13.3 % (11.5-15.5); WBC 4.1 k/uL (3.8-10.6); WBC (Perox) 4.37
[2016-10-03 07:20] LABS: ALT 456 U/L (9-52); AST 158 U/L (14-36); Alkaline Phosphatase 132 U/L (38-126); Amylase <30 U/L (30-110); Anion Gap 9 mmol/L; Blood Urea Nitrogen 7 mg/dL (7-17); Calcium 8.7 mg/dL (8.4-10.2); Carbon Dioxide 25 mmol/L (22-30); Chloride 108 mmol/L (98-107); Glucose 87 mg/dL (74-99); Non-African American GFR(MDRD) >60 (>60 ml/min/1.73 sqM); Potassium 4.2 mmol/L (3.5-5.1); Sodium 142 mmol/L (137-145); Total Bilirubin 0.6 mg/dL (0.2-1.3); Total Protein 5.4 g/dL (6.3-8.2)
[2016-10-03] MEDS: FAMOTIDINE 20 MG TAB PO SCH ×2 (08:32→23:24)
--- NOTE | 2016-10-03 08:43 | P.CONS ---
History of Present Illness - Reason for Consult Consult date: 10/03/16 elevated liver enzymezs Requesting physician: Aaron Cruz - History of Present Illness 26-year-old female with a past medical history of cholecystectomy for symptomatic gallstones in 2007, morbid obesity status post laparoscopic sleeve gastrectomy March 2016, and panic disorder. Consultation requested for elevated liver enzymes. Patient presented to the hospital Saturday night with reports of intractable nausea vomiting and nonbloody diarrhea right upper quadrant abdominal pain that started Saturday evening. 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 No recent travels, sick contacts, or changes in diet. She takes a multivitamin daily. No new additional medications over the last few weeks. Presently she still reporting right upper quadrant abdominal pain exacerbated last night but somewhat improved this morning. Diarrhea has subsided. One small emesis/dry heave yesterday. She reports right upper quadrant abdominal pain with multiple episodes of retching diarrhea that proceeded into Saturday. She was feeling very lightheaded on Saturday near passing out when driving to her parents home, almost had to pull her car over to the side of the road. No history of this type of pain. Denies fever, chills, hematemesis, hematochezia, or melena. T-max on admission 100.1. Liver enzymes on 08/06/2016 were normal. 09/30/2016: AST 311. ALT 155. Alkaline phosphatase 105. Lipase 92. Total bilirubin 1.2. 10/01/2016 AST 959. ALT 930. Alkaline phosphatase 135. Total bilirubin 1.3. 10/02/2016 AST 444. ALT 693. Alkaline phosphates 154. Total bilirubin 1.3. 10/03/2016 AST 158. ALT 456. [place] phosphatase 132. Total bilirubin 0.6. White count 2.9-4.1. Hemoglobin 11.2. Hepatitis panel negative. Ultrasound abdomen no focal liver mass. No bile duct dilation. Common bile duct 3.[address] abdomen and pelvis with contrast reported wedge-shaped area of low attenuation near the dome of the liver involving the right lobe differential included hepatic infarct. Localized fatty infiltration also considered. No sizable fluid collection. Review of Systems Constitutional: Denies fever, chills, sweats, weight gain, or loss. HEENT: Negative for migraines, blurred vision or loss, earaches, drainage, tinnitus, oral mucosal lesions, dysphagia, or odynophagia. CARDIAC: Negative for chest pain, arrhythmias, or palpitation. RESPIRATORY: Negative for shortness of breath, hemoptysis, cough, or sputum production. GI: See HPI for pertinent findings. : Negative for hematuria, urgency, frequency, polyuria, or dysuria. GYNc: Denies possibility of . Negative vaginal discharge. MUSCULOSKELETAL: Negative for muscle aches, swelling, arthritis, and arthralgias. NEUROLOGIC: Negative for stroke or TIA. ENDOCRINE: Negative for thyroid problems. SKIN: Negative for rash or itching. PSYCHIATRIC: History of panic disorder. Negative history for depression and anxiety Past Medical History Past Medical History: No Reported History Additional Past Medical History / Comment(s): NAUSEA AND VOMITING, history of sleeve gastrectomy as well as laparoscopic gallbladder surgery as well History of Any Multi-Drug Resistant Organisms: None Reported Past Surgical History: Bariatric Surgery, Cholecystectomy Additional Past Surgical History / Comment(s): right fallopian tube removed May 2015, SLEEVE GASTRECTOMY 03/26/16 Past Anesthesia/Blood Transfusion Reactions: Postoperative Nausea & Vomiting ( PONV) Past Psychological History: Panic Disorder Smoking Status: Never smoker Past Alcohol Use History: None Reported Past Drug Use History: None Reported - Past Family History Sister(s) Family Medical History: Deep Vein Thrombosis (DVT) Mother Family Medical History: Hyperlipidemia, Hypertension Additional Family Medical History / Comment(s): HEART PROBLEMS, IRREG RYTHM Father Family Medical History: Hyperlipidemia, Hypertension Medications and Allergies Home Medications Medication Instructions Recorded Confirmed Type Multivitamin [Multivitamins Adult 1 tab PO BID 08/06/16 10/01/16 History Gummies] Allergies Allergy/AdvReac Type Severity Reaction Status Date / Time amoxicillin [Amoxicillin] AdvReac yeast Verified 10/01/16 08:37 infection Physical Exam Vitals: Vital Signs Temp Pulse Resp BP Pulse Ox 10/03/16 07:00 98.1 F 62 16 110/59 99 10/03/16 01:52 98.7 F 57 L 16 127/73 100 10/02/16 22:50 66 16 111/74 100 10/02/16 20:00 97.2 F L 64 16 111/69 98 10/02/16 16:00 66 16 10/02/16 15:00 98.2 F 66 16 105/69 99 Intake and Output 10/02/16 10/03/16 10/03/16 22:59 06:59 14:59 Intake Total 900 Balance 900 Intake: Intake, IV Titration 900 Amount Dextrose 5%-0.9% NaCl 1, 900 000 ml @ 100 mls/hr IV . Q10H [facility] Rx#:[id number] Other: Voiding Method Toilet # Voids 1 1 Weight 99.79 kg General appearance: The patient is alert, oriented, in no acute distress. HET: Head is normocephalic and atraumatic. Pupils are equal and reactive. Oropharynx is clear without lesions. Neck: Supple without lymphadenopathy. Trachea midline. Heart: S1 S2. Regular rate and rhythm. Lungs: No crackles or wheezes are heard. Abdomen: Soft, mild right upper quadrant abdominal pain, nondistended with bowel sounds. No peritoneal signs. No palpable organomegaly or masses. Extremities: Normal skin color and turgor. No cyanosis, rash, ulceration, clubbing, or edema. Radial and pedal pulses are 2/4 bilaterally. Neurological: No focal deficits. Strength and sensation are grossly intact. Results CBC & Chem 7: 10/03/16 06:25 10/03/16 06:25 Labs: Abnormal Lab Results - Last 24 Hours (Table) 10/02/16 10/03/16 10/03/16 Range/Units 17:03 06:25 06:25 Hgb 11.2 L (11.4-16.0) gm/dL Chloride 108 H (98-107) mmol/L POC Glucose (mg/dL) 104 H (75-99) mg/dL AST 158 H (14-36) U/L ALT 456 H (9-52) U/L Alkaline Phosphatase 132 H (38-126) U/L Total Protein 5.4 L (6.3-8.2) g/dL Albumin 2.9 L (3.5-5.0) g/dL Amylase <30 L (30-110) U/L 10/03/16 Range/Units 06:56 Hgb (11.4-16.0) gm/dL Chloride (98-107) mmol/L POC Glucose (mg/dL) 72 L (75-99) mg/dL AST (14-36) U/L ALT (9-52) U/L Alkaline Phosphatase (38-126) U/L Total Protein (6.3-8.2) g/dL Albumin (3.5-5.0) g/dL Amylase (30-110) U/L CT scan - abdomen: report reviewed (Reviewed by Dr. Vallejo) US - abdomen: report reviewed (Reviewed by Dr. Vallejo) Assessment and Plan (1) Elevated liver enzymes Narrative/Plan: Acute hepatocellular injury secondary to suspected ischemic hepatitis from unwitnessed hypotension dehydration. Patient reports history of multiple episodes of nausea vomiting diarrhea with lightheadedness near syncope prior to admission. Other differentials to consider is passage of choledocholithiasis, she has a history of laparoscopic cholecystectomy for symptomatic gallstones in 2007, passage of microlithiasis could be reason for her right upper quadrant abdominal pain. It is also possible a combination of these 2 factors could have contributed to her presentation. Status: Acute (2) Hepatocellular injury Status: Acute (3) History of cholelithiasis Status: Chronic (4) History of sleeve gastrectomy Status: Chronic (5) Obesity (BMI 30-39.9) Status: Chronic Plan: Recommendations: 1. Considering patient's biochemical profile is improving with absence of fever and leukocytosis would advise starting a clear liquid diet. Continue to observe today with continuation of IV fluids and repeat liver chemistries in the morning. No further workup at this time. Case was discussed with Dr. Cruz. We'll continue to follow closely with you. Thank you for this kind referral and the opportunity to participate in the care of your patient. This consultation was discussed with Dr. Vallejo. The impression and plan of care have been directed as dictated.
[2016-10-03 11:34] LABS: Glucose,Whole Blood 87 mg/dL (75-99)
--- NOTE | 2016-10-03 11:52 | P.PN ---
Subjective Principal diagnosis: abdominal pain Patient's pain is improved since last night. Yesterday evening and with a 10 out of 10 when she was crying in pain. This morning is about a 6 out of 10. She appears comfortable. Pain is in the same location right upper quadrant with stabbing in nature. Today's labs are improved. She is afebrile. No diarrhea. Objective - Vital Signs Vital signs: Vital Signs Temp 98.1 F 10/03/16 07:00 Pulse 62 10/03/16 07:00 Resp 16 10/03/16 07:00 BP 110/59 10/03/16 07:00 Pulse Ox 99 10/03/16 07:00 Intake & Output 10/02/16 10/03/16 10/03/16 18:59 06:59 18:59 Intake Total 520 900 Balance 520 900 Weight 99.79 kg Intake: Intake, IV Titration 400 900 Amount Dextrose 5%-0.9% NaCl 1, 400 900 000 ml @ 100 mls/hr IV . Q10H [facility] Rx#:[id number] Oral 120 Other: Voiding Method Toilet Toilet # Voids 1 1 - Exam Abdomen: Soft, nondistended, mild right upper quadrant tenderness, no rebound or guarding - Labs CBC & Chem 7: 10/03/16 06:25 10/03/16 06:25 Labs: Abnormal Lab Results - Last 24 Hours (Table) 10/02/16 10/03/16 10/03/16 Range/Units 17:03 06:25 06:25 Hgb 11.2 L (11.4-16.0) gm/dL Chloride 108 H (98-107) mmol/L POC Glucose (mg/dL) 104 H (75-99) mg/dL AST 158 H (14-36) U/L ALT 456 H (9-52) U/L Alkaline Phosphatase 132 H (38-126) U/L Total Protein 5.4 L (6.3-8.2) g/dL Albumin 2.9 L (3.5-5.0) g/dL Amylase <30 L (30-110) U/L 10/03/16 Range/Units 06:56 Hgb (11.4-16.0) gm/dL Chloride (98-107) mmol/L POC Glucose (mg/dL) 72 L (75-99) mg/dL AST (14-36) U/L ALT (9-52) U/L Alkaline Phosphatase (38-126) U/L Total Protein (6.3-8.2) g/dL Albumin (3.5-5.0) g/dL Amylase (30-110) U/L Assessment and Plan (1) Abdominal pain Narrative/Plan: Abdominal pain persists although it is improved from yesterday. Her liver enzymes are likewise improving. Still question choledocholithiasis but other etiologies were also discussed with the patient and with GI earlier this morning. Advised continued observation here in the hospital. Repeat liver enzymes tomorrow. Status: Acute
--- NOTE | 2016-10-03 14:12 | P.PN ---
Subjective Patient is a 26-year-old female with medical history significant for sleeve gastrectomy and cholecystectomy admitted with acute right-sided abdominal pain associated with nausea, vomiting, and loose stools 4 days with elevated liver enzymes. Upon exam, patient reports that her abdominal pain is unchanged from when she originally presented to the hospital. Patient reports that she had an episode of severe right upper quadrant abdominal pain last night and waited 10 out of 10 that was treated with Dilaudid and Toradol with relief. Currently patient rates pain 6 out of 10. Patient was kept nothing by mouth overnight and start into liquids this morning. Patient is tolerating diet without difficulty. Patient reports flatus without bowel movement since admission. Afebrile. Liver enzymes improving since yesterday. No evidence of leukocytosis. Surgical service and GI service continues to follow patient. Objective - Vital Signs Vital signs: Vital Signs Temp 97.1 F L 10/03/16 13:52 Pulse 55 L 10/03/16 13:52 Resp 16 10/03/16 13:52 BP 115/70 10/03/16 13:52 Pulse Ox 100 10/03/16 13:52 Intake & Output 10/02/16 10/03/16 10/03/16 18:59 06:59 18:59 Intake Total 520 900 Balance 520 900 Weight 99.79 kg Intake: Intake, IV Titration 400 900 Amount Dextrose 5%-0.9% NaCl 1, 400 900 000 ml @ 100 mls/hr IV . Q10H [facility] Rx#:[id number] Oral 120 Other: Voiding Method Toilet Toilet # Voids 1 1 - Exam GENERAL: Pt awake and alert, well-appearing, well-nourished, and in no acute distress. HEAD: Atraumatic, normocephalic. EYES: Pupils equal, round, and reactive to light, sclera anicteric, conjunctiva are normal. ENT: Moist mucous membranes. NECK: Supple without lymphadenopathy or JVD. LUNGS: Breath sounds clear to auscultation bilaterally. No wheezes, rales, or rhonchi. HEART: Heart S1, S2, no S3 or S4. Regular rate and rhythm. No murmurs, rubs or gallops. ABDOMEN: Soft, right upper quadrant tenderness, nondistended, normoactive bowel sounds. No guarding, no rebound. No masses or organomegaly appreciated. EXTREMITIES: Palpable peripheral pulses. No edema. No calf tenderness. NEUROLOGICAL: Pt oriented x 3. Cranial nerves II through XII grossly intact. Strength and sensation grossly intact. PSYCH: Normal mood, normal affect. SKIN: Warm, dry, intact. Normal turgor. No rashes or lesions. - Labs CBC & Chem 7: 10/03/16 06:25 10/03/16 06:25 Labs: Abnormal Lab Results - Last 24 Hours (Table) 10/02/16 10/03/16 10/03/16 Range/Units 17:03 06:25 06:25 Hgb 11.2 L (11.4-16.0) gm/dL Chloride 108 H (98-107) mmol/L POC Glucose (mg/dL) 104 H (75-99) mg/dL AST 158 H (14-36) U/L ALT 456 H (9-52) U/L Alkaline Phosphatase 132 H (38-126) U/L Total Protein 5.4 L (6.3-8.2) g/dL Albumin 2.9 L (3.5-5.0) g/dL Amylase <30 L (30-110) U/L 10/03/16 Range/Units 06:56 Hgb (11.4-16.0) gm/dL Chloride (98-107) mmol/L POC Glucose (mg/dL) 72 L (75-99) mg/dL AST (14-36) U/L ALT (9-52) U/L Alkaline Phosphatase (38-126) U/L Total Protein (6.3-8.2) g/dL Albumin (3.5-5.0) g/dL Amylase (30-110) U/L Assessment and Plan Plan: Impression: 1. Right upper quadrant abdominal pain, present on admission, associated with nausea, vomiting, and diarrhea. 2. Elevated liver enzymes, improving. Differential diagnoses include possible ischemic hepatitis from hypotension secondary to dehydration; or possibly choledocholithiasis. 3. Wedge-shaped area of low attenuation near dome of liver involving right lobe with differential diagnosis of hepatic infarct, fatty infiltration, or hepatic injury. 4. 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 5. History of laparoscopic cholecystectomy. Plan: 1. Continue to monitor patient. Continue to follow with general surgery, GI service, and hematology. Continue symptomatic and pain management. Continue IV hydration. Continue antibiotics. No further imaging plan at this time. Continue GI and DVT prophylaxis. Repeat CBC, CMP in a.m. The above impression and plan have been discussed and directed by Dr. Erickson. Epiafnio CHAUDHARI acting as scribe for Dr. Erickson.
[2016-10-03 16:55] LABS: Glucose,Whole Blood 74 mg/dL (75-99)
[2016-10-03] MEDS: LEVOFLOXACIN 750 MG TAB PO SCH (18:04)
[2016-10-03] MEDS: MORPHINE SULFATE 4 MG/ML SYRINGE IV PRN (19:34)
[2016-10-03] MEDS: ONDANSETRON 4 MG/2 ML VIAL IVP PRN (19:34)
[2016-10-03 20:32] LABS: Glucose,Whole Blood 81 mg/dL (75-99)
[2016-10-03 21:40] LABS: ALT 410 U/L (9-52); AST 141 U/L (14-36)
[2016-10-04] MEDS: KETOROLAC 30 MG/ML 1 ML VIAL IVP SCH ×2 (00:53→05:40)
[2016-10-04 07:00] LABS: Glucose,Whole Blood 74 mg/dL (75-99)
[2016-10-04 08:14] LABS: Basophils % (A) 0 %; CH 28.6; CHCM 31.7; Eosinophils # (A) 0.1 k/uL (0-0.7); Eosinophils % (A) 3 %; HCT 36.8 % (34.0-46.0); HDW 2.62; HGB 11.8 gm/dL (11.4-16.0); Luc # (Auto) 0.14; Luc % (Auto) 4; Lymphocytes # (A) 1.1 k/uL (1.0-4.8); Lymphocytes % (A) 28 %; MCH 29.2 pg (25.0-35.0); MCHC 32.1 g/dL (31.0-37.0); MCV 90.9 fL (80.0-100.0); Mean Platelet Volume 7.1; Monocytes # (A) 0.3 k/uL (0-1.0); Monocytes % (A) 6 %; Neutrophils # (A) 2.4 k/uL (1.3-7.7); Neutrophils % (A) 59 %; RBC 4.05 m/uL (3.80-5.40); RDW 13.4 % (11.5-15.5); WBC 4.1 k/uL (3.8-10.6); WBC (Perox) 4.22
[2016-10-04] MEDS: ONDANSETRON 4 MG/2 ML VIAL IVP PRN ×2 (08:15→21:49)
[2016-10-04] MEDS: FAMOTIDINE 20 MG TAB PO SCH ×2 (08:16→23:04)
[2016-10-04] MEDS: MORPHINE SULFATE 4 MG/ML SYRINGE IV PRN ×2 (08:16→21:49)
[2016-10-04 08:39] LABS: ALT 482 U/L (9-52); AST 210 U/L (14-36); Alkaline Phosphatase 168 U/L (38-126); Anion Gap 8 mmol/L; Blood Urea Nitrogen 9 mg/dL (7-17); Calcium 9.1 mg/dL (8.4-10.2); Carbon Dioxide 26 mmol/L (22-30); Chloride 109 mmol/L (98-107); Glucose 79 mg/dL (74-99); Non-African American GFR(MDRD) >60 (>60 ml/min/1.73 sqM); Potassium 4.3 mmol/L (3.5-5.1); Sodium 143 mmol/L (137-145); Total Bilirubin 0.8 mg/dL (0.2-1.3); Total Protein 5.8 g/dL (6.3-8.2)
--- NOTE | 2016-10-04 10:36 | P.PN ---
Subjective Principal diagnosis: Right upper quadrant abdominal pain. Elevated liver enzymes. 26-year-old female admitted with gastroenteritis clinical picture with right upper quadrant abdominal pain with elevated liver enzymes. Suspected a component of ischemic hepatitis possible passage of microlithiasis. Transaminases improved this morning they are slightly more elevated than yesterday. Total bilirubin 0.8. Patient is still reporting right upper quadrant abdominal discomfort with emesis last night and after breakfast this morning. Afebrile. Objective - Vital Signs Vital signs: Vital Signs Temp 96.6 F L 10/04/16 07:00 Pulse 48 L 10/04/16 07:00 Resp 16 10/04/16 07:00 BP 105/59 10/04/16 07:00 Pulse Ox 93 L 10/04/16 07:00 Intake & Output 10/03/16 10/04/16 10/04/16 18:59 06:59 18:59 Intake Total 1180 Balance 1180 Intake: Intake, IV Titration 1000 Amount Dextrose 5%-0.9% NaCl 1, 1000 000 ml @ 100 mls/hr IV . Q10H [facility] Rx#:[id number] Oral 180 Other: Voiding Method Toilet # Voids 1 - Exam General appearance: The patient is alert, oriented, in no acute distress. HET: Head is normocephalic and atraumatic. Pupils are equal and reactive. Oropharynx is clear without lesions. Neck: Supple without lymphadenopathy. Trachea midline. Heart: S1 S2. Regular rate and rhythm. Lungs: No crackles or wheezes are heard. Abdomen: Soft, mild right upper quadrant abdominal pain, nondistended with bowel sounds. No peritoneal signs. No palpable organomegaly or masses. Extremities: Normal skin color and turgor. No cyanosis, rash, ulceration, clubbing, or edema. Radial and pedal pulses are 2/4 bilaterally. Neurological: No focal deficits. Strength and sensation are grossly intact. - Labs CBC & Chem 7: 10/04/16 07:10 10/04/16 07:10 Labs: Abnormal Lab Results - Last 24 Hours (Table) 10/03/16 10/03/16 10/04/16 Range/Units 16:51 21:18 06:52 Chloride (98-107) mmol/L POC Glucose (mg/dL) 74 L 74 L (75-99) mg/dL AST 141 H (14-36) U/L ALT 410 H (9-52) U/L Alkaline Phosphatase (38-126) U/L Total Protein (6.3-8.2) g/dL Albumin (3.5-5.0) g/dL 10/04/16 Range/Units 07:10 Chloride 109 H (98-107) mmol/L POC Glucose (mg/dL) (75-99) mg/dL AST 210 H (14-36) U/L ALT 482 H (9-52) U/L Alkaline Phosphatase 168 H (38-126) U/L Total Protein 5.8 L (6.3-8.2) g/dL Albumin 3.2 L (3.5-5.0) g/dL Assessment and Plan (1) Elevated liver enzymes Narrative/Plan: Acute hepatocellular injury secondary to suspected ischemic hepatitis from unwitnessed hypotension dehydration. Patient reports history of multiple episodes of nausea vomiting diarrhea with lightheadedness near syncope prior to admission. Other differentials to consider is passage of choledocholithiasis, she has a history of laparoscopic cholecystectomy for symptomatic gallstones in 2007, passage of microlithiasis could be reason for her right upper quadrant abdominal pain. It is also possible a combination of these 2 factors could have contributed to her presentation. Status: Acute (2) Hepatocellular injury Status: Acute (3) History of cholelithiasis Status: Chronic (4) History of sleeve gastrectomy Status: Chronic (5) Obesity (BMI 30-39.9) Status: Chronic Plan: Recommendations: 1. Liver enzymes/transaminases slightly elevated today compared to yesterday. Still reporting right upper quadrant abdominal pain with persistent intermittent nausea and small emesis. We'll proceed with MRI liver/bile ducts evaluation to rule choledocholithiasis and/or other pathology. Repeat liver chemistries in the morning. Consideration for EGD may be performed by surgical service and/or ERCP based on clinical course over the next 24 hours. 2. Repeat liver chemistries in the morning. Assessment and plan a care discussed with Dr. Vallejo.
[2016-10-04 11:13] LABS: Glucose,Whole Blood 69 mg/dL (75-99)
[2016-10-04] MEDS: LEVOFLOXACIN 750 MG TAB PO SCH (14:52)
--- NOTE | 2016-10-04 15:41 | P.PN ---
Subjective Principal diagnosis: Abdominal pain Patient is a 26-year-old female with medical history significant for sleeve gastrectomy and cholecystectomy admitted with acute right-sided abdominal pain associated with nausea, vomiting, and loose stools 4 days with elevated liver enzymes. Upon exam, patient currently denies abdominal pain except if she tries to eat or drink and then at that time pain is 10 out of 10 associated with nausea and vomiting. Patient reports flatus without bowel movement since admission. Afebrile. No evidence of leukocytosis. Liver enzymes worse than yesterday. Patient is currently scheduled for an MRI of the liver for persistent elevated liver enzymes to rule out common bile duct stone. Surgical service and GI service continues to follow patient. Objective - Vital Signs Vital signs: Vital Signs Temp 97.1 F L 10/04/16 14:03 Pulse 63 10/04/16 14:03 Resp 16 10/04/16 14:03 BP 129/87 10/04/16 14:03 Pulse Ox 100 10/04/16 14:03 Intake & Output 10/03/16 10/04/16 10/04/16 18:59 06:59 18:59 Intake Total 1180 Balance 1180 Intake: Intake, IV Titration 1000 Amount Dextrose 5%-0.9% NaCl 1, 1000 000 ml @ 100 mls/hr IV . Q10H [facility] Rx#:[id number] Oral 180 Other: Voiding Method Toilet # Voids 1 - Exam GENERAL: Pt awake and alert, well-appearing, well-nourished, and in no acute distress. HEAD: Atraumatic, normocephalic. EYES: Pupils equal, round, and reactive to light, sclera anicteric, conjunctiva are normal. ENT: Moist mucous membranes. NECK: Supple without lymphadenopathy or JVD. LUNGS: Breath sounds clear to auscultation bilaterally. No wheezes, rales, or rhonchi. HEART: Heart S1, S2, no S3 or S4. Regular rate and rhythm. No murmurs, rubs or gallops. ABDOMEN: Soft, right upper quadrant tenderness, nondistended, normoactive bowel sounds. No guarding, no rebound. No masses or organomegaly appreciated. EXTREMITIES: Palpable peripheral pulses. No edema. No calf tenderness. NEUROLOGICAL: Pt oriented x 3. Cranial nerves II through XII grossly intact. Strength and sensation grossly intact. PSYCH: Normal mood, normal affect. SKIN: Warm, dry, intact. Normal turgor. No rashes or lesions. - Labs CBC & Chem 7: 10/04/16 07:10 10/04/16 07:10 Labs: Abnormal Lab Results - Last 24 Hours (Table) 10/03/16 10/03/16 10/04/16 Range/Units 16:51 21:18 06:52 Chloride (98-107) mmol/L POC Glucose (mg/dL) 74 L 74 L (75-99) mg/dL AST 141 H (14-36) U/L ALT 410 H (9-52) U/L Alkaline Phosphatase (38-126) U/L Total Protein (6.3-8.2) g/dL Albumin (3.5-5.0) g/dL 10/04/16 10/04/16 Range/Units 07:10 11:10 Chloride 109 H (98-107) mmol/L POC Glucose (mg/dL) 69 L (75-99) mg/dL AST 210 H (14-36) U/L ALT 482 H (9-52) U/L Alkaline Phosphatase 168 H (38-126) U/L Total Protein 5.8 L (6.3-8.2) g/dL Albumin 3.2 L (3.5-5.0) g/dL Assessment and Plan Plan: Impression: 1. Right upper quadrant abdominal pain, present on admission, associated with nausea, vomiting, and diarrhea. 2. Elevated liver enzymes, slightly worse than yesterday. Differential diagnoses include possible ischemic hepatitis from hypotension secondary to dehydration; or possibly choledocholithiasis. Patient scheduled for an MRI of liver to rule out common bile duct stone. 3. Wedge-shaped area of low attenuation near dome of liver involving right lobe with differential diagnosis of hepatic infarct, fatty infiltration, or hepatic injury. 4. 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 5. History of laparoscopic cholecystectomy. Plan: 1. Continue to monitor patient. Continue to follow with general surgery, GI service, and hematology. Continue symptomatic and pain management. Continue IV hydration. Continue antibiotics. Await results of MRI. Continue GI and DVT prophylaxis. Repeat CBC, CMP in a.m. The above impression and plan have been discussed and directed by Dr. Erickson. Epifanio CHAUDHARI acting as scribe for Dr. Erickson.
--- NOTE | 2016-10-04 16:17 | P.PN ---
Subjective Patient is a 26-year-old female with medical history significant for sleeve gastrectomy and cholecystectomy admitted with acute right-sided abdominal pain associated with nausea, vomiting, and loose stools 4 days with elevated liver enzymes. Upon exam, patient currently denies abdominal pain except if she tries to eat or drink and then at that time pain is 10 out of 10 associated with nausea and vomiting. Patient reports flatus without bowel movement since admission. Afebrile. No evidence of leukocytosis. Liver enzymes worse than yesterday. Patient is currently scheduled for an MRI of the liver for persistent elevated liver enzymes to rule out common bile duct stone. Objective - Vital Signs Vital signs: Vital Signs Temp 97.1 F L 10/04/16 14:03 Pulse 63 10/04/16 14:03 Resp 16 10/04/16 14:03 BP 129/87 10/04/16 14:03 Pulse Ox 100 10/04/16 14:03 Intake & Output 10/03/16 10/04/16 10/04/16 18:59 06:59 18:59 Intake Total 1180 Balance 1180 Intake: Intake, IV Titration 1000 Amount Dextrose 5%-0.9% NaCl 1, 1000 000 ml @ 100 mls/hr IV . Q10H [facility] Rx#:[id number] Oral 180 Other: Voiding Method Toilet # Voids 1 - Exam GENERAL: Pt awake and alert, well-appearing, well-nourished, and in no acute distress. LUNGS: Breath sounds clear to auscultation bilaterally. No wheezes, rales, or rhonchi. HEART: Heart S1, S2, no S3 or S4. Regular rate and rhythm. No murmurs, rubs or gallops. ABDOMEN: Soft, right upper quadrant tenderness, nondistended, normoactive bowel sounds. No guarding, no rebound. No masses or organomegaly appreciated. EXTREMITIES: Palpable peripheral pulses. NEUROLOGICAL: Pt oriented x 3. - Labs CBC & Chem 7: 10/04/16 07:10 10/04/16 07:10 Labs: Abnormal Lab Results - Last 24 Hours (Table) 10/03/16 10/03/16 10/04/16 Range/Units 16:51 21:18 06:52 Chloride (98-107) mmol/L POC Glucose (mg/dL) 74 L 74 L (75-99) mg/dL AST 141 H (14-36) U/L ALT 410 H (9-52) U/L Alkaline Phosphatase (38-126) U/L Total Protein (6.3-8.2) g/dL Albumin (3.5-5.0) g/dL 10/04/16 10/04/16 Range/Units 07:10 11:10 Chloride 109 H (98-107) mmol/L POC Glucose (mg/dL) 69 L (75-99) mg/dL AST 210 H (14-36) U/L ALT 482 H (9-52) U/L Alkaline Phosphatase 168 H (38-126) U/L Total Protein 5.8 L (6.3-8.2) g/dL Albumin 3.2 L (3.5-5.0) g/dL Assessment and Plan Plan: Impression: 1. Right upper quadrant abdominal pain, present on admission, associated with nausea, vomiting, and diarrhea. 2. Elevated liver enzymes, slightly worse than yesterday. Differential diagnoses include possible ischemic hepatitis from hypotension secondary to dehydration; or possibly choledocholithiasis. Patient scheduled for an MRI of liver to rule out common bile duct stone. 3. Wedge-shaped area of low attenuation near dome of liver involving right lobe suspect fatty infiltration. 4. 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 5. History of laparoscopic cholecystectomy. Plan: 1. Continue to monitor patient. Continue to follow with GI service and medical service. Continue symptomatic and pain management. Continue IV hydration. Continue antibiotics. Await results of MRI. Continue GI and DVT prophylaxis. Repeat CBC, CMP in a.m. The above impression and plan have been discussed and directed by Dr. Jha. Epifanio CHAUDHARI acting as scribe for Dr. Jha.
[2016-10-04 16:40] LABS: Glucose,Whole Blood 73 mg/dL (75-99)
[2016-10-04] MEDS ORDERED: LORazepam 0.5 MG TAB PO PRN (19:24)
[2016-10-04 21:21] LABS: Glucose,Whole Blood 92 mg/dL (75-99)
[2016-10-04] MEDS: DEXTROSE 5%-0.9% NACL 1,000 ML IV SCH (21:50)
[2016-10-05] MEDS: DEXTROSE 5%-0.9% NACL 1,000 ML IV SCH (03:10)
[2016-10-05 07:06] LABS: Glucose,Whole Blood 83 mg/dL (75-99)
[2016-10-05 07:41] LABS: Basophils % (A) 1 %; CH 28.6; CHCM 31.6; Eosinophils # (A) 0.2 k/uL (0-0.7); Eosinophils % (A) 3 %; HCT 38.8 % (34.0-46.0); HDW 2.56; HGB 12.2 gm/dL (11.4-16.0); Luc # (Auto) 0.17; Luc % (Auto) 3; Lymphocytes # (A) 1.4 k/uL (1.0-4.8); Lymphocytes % (A) 28 %; MCH 28.6 pg (25.0-35.0); MCHC 31.4 g/dL (31.0-37.0); MCV 90.9 fL (80.0-100.0); Mean Platelet Volume 7.3; Monocytes # (A) 0.3 k/uL (0-1.0); Monocytes % (A) 5 %; Neutrophils # (A) 3.1 k/uL (1.3-7.7); Neutrophils % (A) 61 %; RBC 4.26 m/uL (3.80-5.40); RDW 13.3 % (11.5-15.5); WBC 5.2 k/uL (3.8-10.6); WBC (Perox) 5.44
[2016-10-05 08:04] LABS: ALT 408 U/L (9-52); AST 135 U/L (14-36); Alkaline Phosphatase 152 U/L (38-126); Anion Gap 9 mmol/L; Blood Urea Nitrogen 10 mg/dL (7-17); Calcium 9.1 mg/dL (8.4-10.2); Carbon Dioxide 27 mmol/L (22-30); Chloride 107 mmol/L (98-107); Glucose 82 mg/dL (74-99); Non-African American GFR(MDRD) >60 (>60 ml/min/1.73 sqM); Sodium 143 mmol/L (137-145); Total Protein 6.2 g/dL (6.3-8.2)
--- NOTE | 2016-10-05 08:41 | P.PN ---
Subjective Principal diagnosis: Right upper quadrant abdominal pain. Elevated liver enzymes. 26-year-old female admitted with gastroenteritis clinical picture with right upper quadrant abdominal pain with elevated liver enzymes. Suspected a component of ischemic hepatitis possible passage of microlithiasis. Transaminases improved this morning they are slightly better than yesterday. Still reporting right upper quadrant abdominal discomfort but improved. Tolerate clear liquids yesterday afternoon and evening. MRI scheduled for 4 PM today. Afebrile. Objective - Vital Signs Vital signs: Vital Signs Temp 96.6 F L 10/05/16 02:40 Pulse 79 10/05/16 02:40 Resp 17 10/05/16 02:40 BP 108/59 10/05/16 02:40 Pulse Ox 100 10/05/16 02:40 Intake & Output 10/04/16 10/05/16 10/05/16 18:59 06:59 18:59 Intake Total 240 Balance 240 Intake: IV 200 Dextrose 5%-0.9% NaCl 1, 200 000 ml @ 100 mls/hr IV . Q10H [facility] Rx#:[id number] Oral 40 Other: Voiding Method Toilet # Voids 1 - Exam General appearance: The patient is alert, oriented, in no acute distress. HET: Head is normocephalic and atraumatic. Pupils are equal and reactive. Oropharynx is clear without lesions. Neck: Supple without lymphadenopathy. Trachea midline. Heart: S1 S2. Regular rate and rhythm. Lungs: No crackles or wheezes are heard. Abdomen: Soft, mild right upper quadrant abdominal pain, nondistended with bowel sounds. No peritoneal signs. No palpable organomegaly or masses. Extremities: Normal skin color and turgor. No cyanosis, rash, ulceration, clubbing, or edema. Radial and pedal pulses are 2/4 bilaterally. Neurological: No focal deficits. Strength and sensation are grossly intact. - Labs CBC & Chem 7: 10/05/16 07:22 10/05/16 07:22 Labs: Abnormal Lab Results - Last 24 Hours (Table) 10/04/16 10/04/16 10/04/16 Range/Units 07:10 11:10 16:38 Chloride 109 H (98-107) mmol/L POC Glucose (mg/dL) 69 L 73 L (75-99) mg/dL AST 210 H (14-36) U/L ALT 482 H (9-52) U/L Alkaline Phosphatase 168 H (38-126) U/L Total Protein 5.8 L (6.3-8.2) g/dL Albumin 3.2 L (3.5-5.0) g/dL 10/05/16 Range/Units 07:22 Chloride (98-107) mmol/L POC Glucose (mg/dL) (75-99) mg/dL AST 135 H (14-36) U/L ALT 408 H (9-52) U/L Alkaline Phosphatase 152 H (38-126) U/L Total Protein 6.2 L (6.3-8.2) g/dL Albumin (3.5-5.0) g/dL Assessment and Plan (1) Elevated liver enzymes Status: Acute (2) Hepatocellular injury Status: Acute (3) History of cholelithiasis Status: Chronic (4) History of sleeve gastrectomy Status: Chronic (5) Obesity (BMI 30-39.9) Status: Chronic Plan: Recommendations: 1. MRI liver/MRCP. Further recommendations forthcoming at review of MRI. Assessment and plan a care discussed with Dr. Haile.
[2016-10-05] MEDS: FAMOTIDINE 20 MG TAB PO SCH (09:25)
[2016-10-05 11:59] LABS: Glucose,Whole Blood 80 mg/dL (75-99)
[2016-10-05 14:02] VITALS: BMI 38.9
--- NOTE | 2016-10-05 14:44 | P.PN ---
Subjective Patient is a 26-year-old female with medical history significant for sleeve gastrectomy and cholecystectomy admitted with acute right-sided abdominal pain associated with nausea, vomiting, and loose stools 4 days with elevated liver enzymes. Upon exam, patient currently denies abdominal pain. Patient reports flatus without bowel movement since admission. Afebrile. No evidence of leukocytosis. Liver enzymes improved today. Patient is currently scheduled for an MRI of the liver for persistent elevated liver enzymes to rule out common bile duct stone at 4 PM this afternoon. Objective - Vital Signs Vital signs: Vital Signs Temp 97.9 F 10/05/16 07:00 Pulse 78 10/05/16 07:00 Resp 15 10/05/16 07:00 BP 118/73 10/05/16 07:00 Pulse Ox 100 10/05/16 07:00 Intake & Output 10/04/16 10/05/16 10/05/16 18:59 06:59 18:59 Intake Total 240 Balance 240 Weight 99.79 kg Intake: IV 200 Dextrose 5%-0.9% NaCl 1, 200 000 ml @ 100 mls/hr IV . Q10H [facility] Rx#:[id number] Oral 40 Other: Voiding Method Toilet Toilet # Voids 1 - Exam GENERAL: Pt awake and alert, well-appearing, well-nourished, and in no acute distress. LUNGS: Breath sounds clear to auscultation bilaterally. No wheezes, rales, or rhonchi. HEART: Heart S1, S2, no S3 or S4. Regular rate and rhythm. No murmurs, rubs or gallops. ABDOMEN: Soft, mild right upper quadrant tenderness, nondistended, normoactive bowel sounds. No guarding, no rebound. No masses or organomegaly appreciated. EXTREMITIES: Palpable peripheral pulses. NEUROLOGICAL: Pt oriented x 3. - Labs CBC & Chem 7: 10/05/16 07:22 10/05/16 07:22 Labs: Abnormal Lab Results - Last 24 Hours (Table) 10/04/16 10/05/16 Range/Units 16:38 07:22 POC Glucose (mg/dL) 73 L (75-99) mg/dL AST 135 H (14-36) U/L ALT 408 H (9-52) U/L Alkaline Phosphatase 152 H (38-126) U/L Total Protein 6.2 L (6.3-8.2) g/dL Assessment and Plan Plan: Impression: 1. Right upper quadrant abdominal pain, present on admission, associated with nausea, vomiting, and diarrhea. 2. Elevated liver enzymes, slightly improved since yesterday. Differential diagnoses include possible ischemic hepatitis from hypotension secondary to dehydration; or possibly choledocholithiasis. Patient scheduled for an MRI of liver to rule out common bile duct stone. 3. Wedge-shaped area of low attenuation near dome of liver involving right lobe suspect fatty infiltration. 4. 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 5. History of laparoscopic cholecystectomy. Plan: 1. Continue to monitor patient. Continue to follow with GI service and medical service. Continue symptomatic and pain management. Continue IV hydration. Continue antibiotics. Await results of MRI. Continue GI and DVT prophylaxis. Repeat CBC, CMP in a.m. The above impression and plan have been discussed and directed by Dr. Erickson. Epifanio CHAUDHARI acting as scribe for Dr. Erickson.
[2016-10-05 14:56] VITALS: BP 119/76; PULSE 53; RESP 16; TEMP 97.7
[2016-10-05] MEDS ORDERED: [UNRECOGNIZED DRUG - REMARK] IV SCH ×3 (16:00)
--- NOTE | 2016-10-05 16:16 | P.DS ---
Providers Date of admission: 10/01/16 02:45 Expected date of discharge: 10/05/16 Attending physician: Cali Jha Consults: 10/01/16 12:43 Consult Physician Routine Consulting Provider: Arley Allen Consult Reason/Comments: Medical management Do you want consulting provider notified?: Yes 10/01/16 18:34 Consult Physician Routine Consulting Provider: Sudhir Aburto Consult Reason/Comments: POSSIBLE LIVER INFARCT Do you want consulting provider notified?: Yes 10/02/16 10:24 Consult Physician Urgent Consulting Provider: Ekaterina Haile Consult Reason/Comments: ABDOMINAL PAIN/ELEVATED LIVER ENZYMES Do you want consulting provider notified?: Yes Primary care physician: Arley Allen Hospital Course: Patient is a 26-year-old female with medical history significant for sleeve gastrectomy and cholecystectomy admitted with acute right-sided abdominal pain associated with nausea, vomiting, and loose stools 4 days with elevated liver enzymes. Patient was evaluated by gastrointestinal service who recommended patient undergo an MRI of the liver for persistent elevated liver enzymes to rule out common bile duct stone. Abdominal pain improved during hospital stay with diet restriction and conservative management. Patient very determined to go home and will be discharged after MRI of liver with and without contrast and MRCP later this afternoon. Patient will follow-up with Dr. Jha on Saturday in the office. Discharge diagnosis: 1. Right upper quadrant abdominal pain, present on admission, associated with nausea, vomiting, and diarrhea. 2. Elevated liver enzymes, slightly worse than yesterday. Differential diagnoses include possible ischemic hepatitis from hypotension secondary to dehydration; or possibly choledocholithiasis. Patient scheduled for an MRI of liver to rule out common bile duct stone. 3. Wedge-shaped area of low attenuation near dome of liver involving right lobe with differential diagnosis of hepatic infarct, fatty infiltration, or hepatic injury. 4. 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 5. History of laparoscopic cholecystectomy. The above impression and plan have been discussed and directed by Dr. Jha. Epifanio CHAUDHARI acting as scribe for Dr. Jha. Pertinent Studies: Acute abdomen series; abdomen ultrasound; abdomen/pelvis CT Patient Condition at Discharge: Stable Plan - Discharge Summary Discharge Medication List Multivitamin [Multivitamins Adult Gummies] 1 tab PO BID 08/06/16 [History] Follow up Appointment(s)/Referral(s): Arley Allen MD [Primary Care Provider] - 1-2 days Cali Jha MD [STAFF PHYSICIAN] - 10/08/16 Patient Instructions/Handouts: Abdominal Pain (ED) Activity/Diet/Wound Care/Special Instructions: Clear liquid diet, advance as tolerated Discharge Disposition: HOME SELF-CARE Pending Studies Pending Results: MRI liver with and without contrast and MRCP
[2016-10-05 16:58] LABS: Glucose,Whole Blood 73 mg/dL (75-99)
[2016-10-05] MEDS: LEVOFLOXACIN 750 MG TAB PO SCH (18:21)
--- NOTE | 2016-10-05 23:36 | MR ---
EXAMINATION TYPE: MR liver wo/w con and mrcp DATE OF EXAM: 10/05/2016 4:52 PM COMPARISON: NONE HISTORY: PATIENT HAVING RIGHT UPPER QUADRANT PAIN WITH ELEVATED LIVER ENZYMES, R/O CDB STONE CONTRAST: Standard multiplanar, multisequence MRI departmental protocol utilizing 20 mL intravenous MultiHance gadolinium contrast. FINDINGS: Liver has normal size and contour. Bile ducts are not dilated. Spleen appears normal. Ther e is no evidence of a pancreatic mass. There is no ascites. Kidneys show no hydronephrosis. There is no sign of retroperitoneal adenopathy. There is no adrenal mass. There is a somewhat wedge-shaped area that measures 4 x 2 cm in the lateral right lobe of the liver t hat shows differential contrast enhancement. This probably relates to a hemangioma. This appears to f ill-in with contrast on the delayed images and shows increased enhancement on the delayed contrast im ages. The MRCP images show no dilated ducts. I see no filling defect in the common bile duct. Common bile d uct measures up to 5 mm. There is normal tapering of the distal common bile duct. IMPRESSION: Normal MRCP. Wedge-shaped area of delayed enhancement in the lateral right lobe of the liver consistent with a hem angioma. No dilated ducts. No evidence of a common duct stone.
--- NOTE | 2016-10-11 07:54 | CDI ---
In responding to this query, please exercise your independent professional judgment. The [facility] Coding Staff and Clinical Documentation Specialists appreciate your assistance in clarifying documentation, maintaining compliance with coding guidelines, accurately documenting patients condition and capturing severity of illness. The fact that a question is asked does not imply that any particular answer is desired or expected. Communication forms are a method of clarifying documentation and are not made part of the Legal Health Record. Thank you in advance for your clarification. Last Revision, September 2015 Denice Schneider [address] [place] [place] [address] Documentation Clarification Form Date: 10/11/2016 7:29:00 AM From: Iraida Branch Phone: Admit Date: 10/01/2016 2:45:00 AM Patient Name: Caroline Newton Visit Number: [id number] Discharge Date: 10/11/16 Dr. Epifanio Lang Abdominal pain and elevated liver enzymes are documented in the discharge summary. Patient history/risk factors: sp sleeve gastrectomy & cholecystectomy Clinical Indicators: RUQ pain associated with n/v & diarrhea MRI of liver: Normal MRCP, wedge-shape area of delayed enhancement in the lateral right lobe of the liver consistent with a hemangioma. No dilated ducts. No evidence of a common duct stone. In your professional opinion, can you please further clarify the cause of the abdominal pain & elevated liver functions, if known? Please specify Unable to determine Please document in your progress notes and discharge summary in order to capture severity of illness and risk of mortality. Include clinical findings that support your diagnosis. 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 The patient had a transient elevation of her liver function tests. The reason for this was unknown. ERNESTOD
== END 2016-10-05 18:54 | disposition home or self-care (01) | DRG 443 ==
LOC: EC 19:53 → 3SUR 10-01 02:45
PROVIDERS: ADMIT Surgery; ATTEND Surgery
DX: K72.00 Acute and subacute hepatic failure without coma (principal); I95.9 Hypotension, unspecified; K76.0 Fatty (change of) liver, not elsewhere classified; E66.01 Morbid (severe) obesity due to excess calories; E86.0 Dehydration; Z68.39 Body mass index [BMI] 39.0-39.9, adult; R11.2 Nausea with vomiting, unspecified; R19.7 Diarrhea, unspecified; Z90.49 Acquired absence of other specified parts of digestive tract; Z98.84 Bariatric surgery status; Z86.59 Personal history of other mental and behavioral disorders; Z79.899 Other long term (current) drug therapy
CPT/HCPCS: 36415; 74022; 74177; 74183; 76705; 80053; 80074; 81001; 81025; 82150; 83690; 84450; 84460; 85025; 93005; 96361; 96374; 96375; 96376; 99285

== ENCOUNTER → 2016-10-08 | Outpatient (CLI) | payer BC ==
--- NOTE | 2016-10-08 14:29 | FL ---
EXAMINATION TYPE: FL barium swallow DATE OF EXAM ORDERED: 10/08/2016 2:24 PM HISTORY: Epigastric pain. COMPARISON: None. FINDINGS: There is a moderate holdup of barium from the distal esophagus into the stomach. Once in t he stomach, barium quickly reached the ligament of Treitz. IMPRESSION: MODERATE DELAY IN THE EGRESS OF BARIUM FROM THE ESOPHAGUS INTO THE STOMACH.
== END | disposition home or self-care (01) ==
LOC: RADFLWHC 13:43
PROVIDERS: ATTEND Surgery
DX: R13.10 Dysphagia, unspecified (principal)
CPT/HCPCS: 74220

== ENCOUNTER → 2016-10-08 | Outpatient (CLI) | payer BC ==
[2016-10-08 13:26] VITALS: BP 138/98; PULSE 73; TEMP 98.1
--- NOTE | 2016-10-08 15:12 | P.HPBAR ---
Bariatric H&P - History & Physicial H&P Date: 10/08/16 History & Physicial: Visit/CC: Patient initial contact: Initial weight: 138.062 kg Initial weight in pounds: 304.37 Height: 5 ft 3 in Initial BMI: Last weight: Current weight: 101.196 kg Current weight in pounds: Current BMI: [place] body weight (based on NIH guidelines): Excess body weight loss: The patient is a 26 year-old F who presents for Bariatric Assessment. The patient still has some complaints of dysphagia. She's had limited oral intake over the weekend. Review of Systems Constitutional: Reports as per HPI Past Medical History Past Medical History: No Reported History Additional Past Medical History / Comment(s): NAUSEA AND VOMITING, history of sleeve gastrectomy as well as laparoscopic gallbladder surgery as well History of Any Multi-Drug Resistant Organisms: None Reported Past Surgical History: Bariatric Surgery, Cholecystectomy Additional Past Surgical History / Comment(s): right fallopian tube removed May 2015, SLEEVE GASTRECTOMY 03/26/16 Past Anesthesia/Blood Transfusion Reactions: Postoperative Nausea & Vomiting ( PONV) Past Psychological History: Panic Disorder Smoking Status: Never smoker Past Alcohol Use History: None Reported Past Drug Use History: None Reported - Past Family History Sister(s) Family Medical History: Deep Vein Thrombosis (DVT) Mother Family Medical History: Hyperlipidemia, Hypertension Additional Family Medical History / Comment(s): HEART PROBLEMS, IRREG RYTHM Father Family Medical History: Hyperlipidemia, Hypertension Surgical - Exam Vital Signs Temp Pulse BP 98.1 F 73 138/98 10/08/16 13:24 10/08/16 13:24 10/08/16 13:24 - General well developed - Eyes PERRL - ENT normal pinna - Abdomen Abdomen: soft, non tender Bariatric Assessment & Plan Plan: The patient had an esophagram performed. There appears to be some stenosis near the GE junction. There is no evidence of any obstruction during course of her sleeve. The patient will undergo EGD with possible balloon dilatation of GE junction in a.m. Bariatric Checklist Checklist: Plan: Checklist: EGD: 1. Hiatal hernia: 2. H. Pylori: HgbA1c: Vitamin D: Smoking: Never smoker Primary care physician referral: Dr. Allen Psychiatry clearance: Cardiology clearance: Sleep study: Diet journal: VTE risk score: VTE risk level: Rehab needs at discharge:
== END | disposition home or self-care (01) ==
LOC: BARWHC3 13:02
PROVIDERS: ATTEND Surgery
DX: Z48.815 Encounter for surgical aftercare following surgery on the digestive system (principal); R13.10 Dysphagia, unspecified; Z98.84 Bariatric surgery status
CPT/HCPCS: 99211

== ENCOUNTER 2016-10-09 09:18 | Day surgery (SDC) | payer BC ==
[2016-10-09] MEDS ORDERED: LIDOCAINE 1% 20 ML VIAL (10MG/ML) FOR IV START INTRADERMA ONE (09:31)
[2016-10-09 09:58] VITALS: BMI 39.4
[2016-10-09] MEDS ORDERED: LACTATED RINGERS 1,000 ML IV ONE (09:58)
[2016-10-09] MEDS ORDERED: LIDOCAINE 1% INJ 10MG/ML (20 ML MDV) ONE (10:49)
[2016-10-09] MEDS ORDERED: PROPOFOL 10 MG/ML 20 ML VIAL IV ONE (10:49)
--- NOTE | 2016-10-09 10:57 | P.GSHP ---
History of Present Illness H&P Date: 10/09/16 Chief Complaint: Dysphagia, GERD This a 18-year-old female who presents safer EGD. Patient had a recent esophagram which shows possible stenosis of the GE junction. She presents today for EGD and balloon dilatation. Past Medical History Past Medical History: No Reported History Additional Past Medical History / Comment(s): NAUSEA AND VOMITING, history of sleeve gastrectomy as well as laparoscopic gallbladder surgery as well History of Any Multi-Drug Resistant Organisms: None Reported Past Surgical History: Bariatric Surgery, Cholecystectomy Additional Past Surgical History / Comment(s): right fallopian tube removed May 2015, SLEEVE GASTRECTOMY 03/26/16 Past Anesthesia/Blood Transfusion Reactions: Postoperative Nausea & Vomiting ( PONV) Past Psychological History: Panic Disorder Additional Psychological History / Comment(s): PASSED OUT AT WORK AND HAD PANIC ATTACK Smoking Status: Never smoker Past Alcohol Use History: None Reported Past Drug Use History: None Reported - Past Family History Sister(s) Family Medical History: Deep Vein Thrombosis (DVT) Mother Family Medical History: Hyperlipidemia, Hypertension Additional Family Medical History / Comment(s): HEART PROBLEMS, IRREG RYTHM Father Family Medical History: Hyperlipidemia, Hypertension Medications and Allergies Home Medications Medication Instructions Recorded Confirmed Type Multivitamin [Multivitamins Adult 1 tab PO BID 08/06/16 10/09/16 History Gummies] Allergies Allergy/AdvReac Type Severity Reaction Status Date / Time amoxicillin [Amoxicillin] AdvReac yeast Verified 10/09/16 09:33 infection Surgical - Exam Vital Signs Temp Pulse Resp BP Pulse Ox 98.1 F 71 16 132/66 100 10/09/16 10:02 10/09/16 10:02 10/09/16 10:02 10/09/16 10:02 10/09/16 10:02 - General well developed, no distress - Eyes PERRL - ENT normal pinna - Neck no masses - Respiratory normal expansion - Abdomen Abdomen: soft, non tender Assessment and Plan Plan: GERD, dysphagia. We'll perform EGD with possible balloon dilatation of GE junction.
--- NOTE | 2016-10-09 11:15 | P.OP ---
Date of Procedure: 10/09/16 Preoperative Diagnosis: Dysphagia Postoperative Diagnosis: Mild esophagitis No evidence of stricture Procedure(s) Performed: EGD Anesthesia: MAC Surgeon: Cali Jha Pathology: none sent Condition: stable Disposition: PACU Description of Procedure: The patient's placed on the endoscopy table in the lateral position. She received IV sedation. The gastroscope some placed oropharynx passed into the esophagus and into the stomach and then through the pylorus into the first and second portion of duodenum. There appeared to be no evidence of a significant stricture the GE junction. Scope was then withdrawn and the antrum appeared normal. The sleeve appeared to be normal. The GE junction appeared normal. Due to the patient's symptoms and her recent esophagram which showed a possible stricture of the GE junction a 20 mm balloon was placed across the GE junction and held in position for 3 minutes. This is performed the balloon was also placed across the incisura of the stomach and help position for 3 minutes. The balloon was then brought back and there is no evidence of this leave or GE junction. The balloon was easily passed between the esophagus and stomach. This point the balloon was withdrawn and then the scope was withdrawn there is some minimal esophagitis. The proximal esophagus appeared normal. Scope was withdrawn for patient.
[2016-10-09] MEDS ORDERED: HYDROmorphone 1 MG/ML 1 ML SYRINGE IVP ONE ×3 (12:15→13:49)
--- NOTE | 2016-10-09 13:25 | XR ---
EXAMINATION TYPE: XR abdomen 1V DATE OF EXAM: 10/09/2016 1:09 PM CLINICAL HISTORY: Endoscope with esophageal dilatation with new pain. TECHNIQUE: Single upright KUB image of the abdomen is obtained. COMPARISON: CT abdomen and pelvis from 8 days ago. FINDINGS: Gas is seen in nondistended bowel loops. Gas and contrast material is seen in nondistended colon. Cholecystectomy clips are redemonstrated. No pneumoperitoneum is identified. Lung bases are cl ear. Calcified right infrahilar nodules are noted suggesting old granulomatous disease. IMPRESSION: No pneumoperitoneum after recent procedure.
[2016-10-09] MEDS ORDERED: ONDANSETRON 4 MG/2 ML VIAL IVP ONE (13:50)
[2016-10-09] MEDS ORDERED: DEXAMETHASONE SOD PHOSPHATE 10 MG/ML 1 ML VIAL IV ONE (15:45)
[2016-10-09] MEDS ORDERED: PROMETHAZINE INJ 25 MG/ML 1 ML VIAL IVPB ONE (16:32)
[2016-10-09] MEDS ORDERED: HYDROcodone/APAP 5-325MG 1 EACH TAB PO PRN (19:24)
[2016-10-09] MEDS ORDERED: ONDANSETRON 4 MG/2 ML VIAL IVP PRN (19:25)
[2016-10-09] MEDS ORDERED: LACTATED RINGERS 1,000 ML IV SCH (19:30)
[2016-10-09] MEDS ORDERED: KETOROLAC 30 MG/ML 1 ML VIAL IVP PRN ×2 (20:46→20:49)
[2016-10-10 08:10] LABS: Basophils % (A) 0 %; CH 28.7; CHCM 32.4; Eosinophils % (A) 0 %; HDW 2.66; HGB 13.7 gm/dL (11.4-16.0); Luc # (Auto) 0.12; Luc % (Auto) 1; Lymphocytes % (A) 9 %; MCH 29.9 pg (25.0-35.0); MCHC 33.5 g/dL (31.0-37.0); MCV 89.1 fL (80.0-100.0); Monocytes # (A) 0.4 k/uL (0-1.0); Monocytes % (A) 4 %; Neutrophils # (A) 10.1 k/uL (1.3-7.7); Neutrophils % (A) 86 %; RDW 13.3 % (11.5-15.5); WBC 11.7 k/uL (3.8-10.6); WBC (Perox) 12.03
[2016-10-10 08:31] LABS: ALT 168 U/L (9-52); AST 58 U/L (14-36); Alkaline Phosphatase 143 U/L (38-126); Anion Gap 12 mmol/L; Blood Urea Nitrogen 8 mg/dL (7-17); Calcium 9.6 mg/dL (8.4-10.2); Carbon Dioxide 26 mmol/L (22-30); Chloride 106 mmol/L (98-107); Glucose 112 mg/dL (74-99); Non-African American GFR(MDRD) >60 (>60 ml/min/1.73 sqM); Potassium 4.5 mmol/L (3.5-5.1); Sodium 144 mmol/L (137-145); Total Bilirubin 1.1 mg/dL (0.2-1.3); Total Protein 6.7 g/dL (6.3-8.2)
[2016-10-10 08:53] VITALS: BP 118/79; PULSE 88; RESP 20
[2016-10-10 08:59] VITALS: TEMP 97.9
[2016-10-10] MEDS ORDERED: IBUPROFEN 600 MG TAB PO STA (11:45)
--- NOTE | 2016-10-10 12:03 | P.HPIM ---
History of Present Illness H&P Date: 10/10/16 Chief Complaint: Dysphagia This is an medical H&P and discharge summary combined: Patient is a 26-year-old female with medical history significant for nausea and vomiting, history of sleeve gastrectomy as well as laparoscopic cholecystectomy. Patient was recently admitted to the hospital for right upper quadrant pain with elevated liver enzymes suspect secondary from ischemic hepatitis from hypotension secondary to decreased hydration secondary to GI losses. MRCP at that time was negative for choledocholithiasis. Patient recently underwent esophagram which showed possible stenosis of the GE junction. Patient presented to the hospital for elective EGD and balloon dilatation with evidence of mild esophagitis but no evidence of stricture. Postoperatively, patient was complaining of a stabbing pain to the right side and mid abdomen associated with nausea. Patient received 2 mg of Dilaudid and was admitted for observation overnight. Upon examination, patient is feeling much better. Patient denies nausea, vomiting, shortness of breath, or chest pain. Denies dysphagia. Patient reports mild right upper quadrant pain rated 2 out of 10. Patient is tolerating a clear liquid diet and is asking for soft food for lunch. States she is hungry. Patient is urinating without difficulty. Patient is passing flatus. No bowel movement this morning. No fevers.WBC 11.7, liver eimproving from 10/05/2016. Past Medical History Past Medical History: No Reported History Additional Past Medical History / Comment(s): NAUSEA AND VOMITING, history of sleeve gastrectomy as well as laparoscopic gallbladder surgery as well in 2007. removal of rt falopian tube due to cyst in 2014 History of Any Multi-Drug Resistant Organisms: None Reported Past Surgical History: Bariatric Surgery, Cholecystectomy Additional Past Surgical History / Comment(s): right fallopian tube removed May 2015, SLEEVE GASTRECTOMY 03/26/16 Past Anesthesia/Blood Transfusion Reactions: Postoperative Nausea & Vomiting ( PONV) Past Psychological History: Panic Disorder Additional Psychological History / Comment(s): PASSED OUT AT WORK AND HAD PANIC ATTACK. one time issue per pt. no problems since Smoking Status: Never smoker Past Alcohol Use History: None Reported Past Drug Use History: None Reported - Past Family History Sister(s) Family Medical History: Deep Vein Thrombosis (DVT) Mother Family Medical History: Hyperlipidemia, Hypertension Additional Family Medical History / Comment(s): HEART PROBLEMS, IRREG RYTHM Father Family Medical History: Hyperlipidemia, Hypertension Medications and Allergies Home Medications Medication Instructions Recorded Confirmed Type Multivitamin [Multivitamins Adult 1 tab PO BID 08/06/16 10/09/16 History Gummies] Allergies Allergy/AdvReac Type Severity Reaction Status Date / Time amoxicillin [Amoxicillin] AdvReac yeast Verified 10/09/16 09:33 infection Physical Exam Vitals: Vital Signs Temp Pulse Pulse Resp BP BP BP 10/10/16 08:58 97.9 F 10/10/16 08:30 88 20 118/79 10/10/16 04:00 97.6 F 60 18 97/51 10/10/16 00:00 98.0 F 64 18 98/49 10/09/16 20:10 98.6 F 78 18 114/61 10/09/16 20:00 98.6 F 78 20 114/61 10/09/16 19:46 82 16 115/79 10/09/16 17:49 69 18 10/09/16 17:08 68 18 138/81 10/09/16 16:23 87 16 123/78 10/09/16 14:12 81 16 114/80 10/09/16 13:51 75 16 124/82 10/09/16 13:14 62 16 122/83 10/09/16 12:51 72 16 135/91 10/09/16 12:27 57 L 16 124/88 10/09/16 11:59 80 16 147/93 10/09/16 11:46 61 16 138/95 Pulse Ox 10/10/16 08:58 10/10/16 08:30 100 10/10/16 04:00 98 10/10/16 00:00 97 10/09/16 20:10 96 10/09/16 20:00 96 10/09/16 19:46 94 L 10/09/16 17:49 99 10/09/16 17:08 98 10/09/16 16:23 98 10/09/16 14:12 95 10/09/16 13:51 97 10/09/16 13:14 97 10/09/16 12:51 95 10/09/16 12:27 97 10/09/16 11:59 99 10/09/16 11:46 99 Intake and Output 10/09/16 10/10/16 10/10/16 22:59 06:59 14:59 Intake Total 200 Output Total 650 Balance -450 Intake: Oral 200 Output: Urine 650 Other: Voiding Method Toilet # Voids 1 Weight 101.151 kg GENERAL: Pt awake and alert, well-appearing, well-nourished, and in no acute distress. HEAD: Atraumatic, normocephalic. EYES: Pupils equal, round, and reactive to light, extraocular movements intact, sclera anicteric, conjunctiva are normal. ENT: Oropharynx clear without exudates. Moist mucous membranes. NECK: Supple without lymphadenopathy or JVD. No carotid bruits. Thyroid midline , small and firm without palpable masses. LUNGS: Breath sounds clear to auscultation bilaterally. No wheezes, rales, or rhonchi. HEART: Heart S1, S2, no S3 or S4. Regular rate and rhythm. No murmurs, rubs or gallops. ABDOMEN: Soft, mild right upper quadrant tenderness, nondistended, normoactive bowel sounds. No guarding, no rebound. No masses or organomegaly appreciated. EXTREMITIES: Palpable peripheral pulses. No edema, clubbing or cyanosis. No calf tenderness. NEUROLOGICAL: Pt oriented x 3. No focal deficits noted. Strength and sensation grossly intact. PSYCH: Normal mood, normal affect. SKIN: Warm, dry, intact. Normal turgor. No rashes or lesions. Results CBC & Chem 7: 10/10/16 07:58 10/10/16 07:58 Labs: Abnormal Lab Results - Last 24 Hours (Table) 10/10/16 10/10/16 Range/Units 07:58 07:58 WBC 11.7 H (3.8-10.6) k/uL Neutrophils # 10.1 H (1.3-7.7) k/uL Glucose 112 H (74-99) mg/dL AST 58 H (14-36) U/L ALT 168 H (9-52) U/L Alkaline Phosphatase 143 H (38-126) U/L Abdominal x-ray: report reviewed (Negative for pneumoperitoneum.) Thrombosis Risk Factor Assmnt - DVT/VTE Prophylaxis DVT/VTE Prophylaxis: Low risk, early ambulation encouraged - Choose All That Apply Each Factor Represents 1 point: Medical pt on bed rest, Obesity (BMI >25) Other Risk Factors: No Other congenital or acquired thrombophilia - If yes, enter type in comment: No Thrombosis Risk Factor Assessment Total Risk Factor Score: 2 Thrombosis Risk Factor Assessment Level: Low Risk Assessment and Plan Plan: Impression and plan: 1. Dysphagia status post EGD with balloon dilatation with findings of mild esophagitis but no evidence of stricture. 2. Acute abdominal pain postoperatively, resolved. Abdominal x-ray negative for pneumoperitoneum. 3. Leukocytosis, suspect reactive. 4. Elevated liver enzymes, improved, suspect secondary to history of ischemic hepatitis from hypotension secondary to dehydration. 5. 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 6. History of laparoscopic cholecystectomy. From a surgical and medical standpoint, patient is stable for discharge. Patient will be discharged on a soft diet and follow-up with Dr. Allen in the outpatient setting. Discharge diagnoses: 1. Dysphagia status post EGD with balloon dilatation with findings of mild esophagitis but no evidence of stricture. 2. Acute abdominal pain postoperatively, resolved. 3. Leukocytosis, suspect reactive. 4. Elevated liver enzymes, improved, suspect secondary to history of ischemic hepatitis from hypotension secondary to dehydration. 5. 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 6. History of laparoscopic cholecystectomy. The above impression and plan have been discussed and directed by Dr. Allen. Epifanio CHAUDHARI acting as scribe for Dr. Allen.
--- NOTE | 2016-10-10 12:56 | P.GSCN ---
History of Present Illness Consult date: 10/10/16 Reason for Consult: Post EGD, abdominal pain Requesting physician: Arley Allen History of present illness: Patient is a 26-year-old female with medical history significant for nausea and vomiting, history of sleeve gastrectomy as well as laparoscopic cholecystectomy. Patient recently underwent esophagram which showed possible stenosis of the GE junction. Patient presented to the hospital for elective EGD and balloon dilatation with evidence of mild esophagitis but no evidence of stricture. Postoperatively, patient was complaining of a stabbing pain to the right side and mid abdomen associated with nausea. Patient received 2 mg of Dilaudid and was admitted for observation overnight. This morning, patient is feeling much better. Patient denies nausea, vomiting, shortness of breath, or chest pain. Denies dysphagia. Patient reports mild right upper quadrant pain rated 2 out of 10. Patient is tolerating a clear liquid diet and is asking for soft food for lunch. States she is hungry. Patient is urinating without difficulty. Patient is passing flatus. Afebrile. WBC 11.7. Past Medical History Past Medical History: No Reported History Additional Past Medical History / Comment(s): NAUSEA AND VOMITING, history of sleeve gastrectomy as well as laparoscopic gallbladder surgery as well in 2007. removal of rt falopian tube due to cyst in 2014 History of Any Multi-Drug Resistant Organisms: None Reported Past Surgical History: Bariatric Surgery, Cholecystectomy Additional Past Surgical History / Comment(s): right fallopian tube removed May 2015, SLEEVE GASTRECTOMY 03/26/16 Past Anesthesia/Blood Transfusion Reactions: Postoperative Nausea & Vomiting ( PONV) Past Psychological History: Panic Disorder Additional Psychological History / Comment(s): PASSED OUT AT WORK AND HAD PANIC ATTACK. one time issue per pt. no problems since Smoking Status: Never smoker Past Alcohol Use History: None Reported Past Drug Use History: None Reported - Past Family History Sister(s) Family Medical History: Deep Vein Thrombosis (DVT) Mother Family Medical History: Hyperlipidemia, Hypertension Additional Family Medical History / Comment(s): HEART PROBLEMS, IRREG RYTHM Father Family Medical History: Hyperlipidemia, Hypertension Medications and Allergies Home Medications Medication Instructions Recorded Confirmed Type Multivitamin [Multivitamins Adult 1 tab PO BID 08/06/16 10/09/16 History Gummies] Allergies Allergy/AdvReac Type Severity Reaction Status Date / Time amoxicillin [Amoxicillin] AdvReac yeast Verified 10/09/16 09:33 infection Surgical - Exam Vital Signs Temp Pulse Resp BP Pulse Ox 98.1 F 71 16 132/66 100 10/09/16 10:02 10/09/16 10:02 10/09/16 10:02 10/09/16 10:02 10/09/16 10:02 GENERAL: Pt awake and alert, well-appearing, well-nourished, and in no acute distress. HEAD: Atraumatic, normocephalic. EYES: Pupils equal, round, and reactive to light, extraocular movements intact, sclera anicteric, conjunctiva are normal. ENT: Oropharynx clear without exudates. Moist mucous membranes. NECK: Supple without lymphadenopathy or JVD. No carotid bruits. Thyroid midline , small and firm without palpable masses. LUNGS: Breath sounds clear to auscultation bilaterally. No wheezes, rales, or rhonchi. HEART: Heart S1, S2, no S3 or S4. Regular rate and rhythm. No murmurs, rubs or gallops. ABDOMEN: Soft, mild right upper quadrant tenderness, nondistended, normoactive bowel sounds. No guarding, no rebound. No masses or organomegaly appreciated. EXTREMITIES: Palpable peripheral pulses. No edema, clubbing or cyanosis. No calf tenderness. NEUROLOGICAL: Pt oriented x 3. No focal deficits noted. Strength and sensation grossly intact. PSYCH: Normal mood, normal affect. SKIN: Warm, dry, intact. Normal turgor. No rashes or lesions. Results - Labs 10/10/16 07:58 10/10/16 07:58 Abnormal Lab Results - Last 24 Hours (Table) 10/10/16 10/10/16 Range/Units 07:58 07:58 WBC 11.7 H (3.8-10.6) k/uL Neutrophils # 10.1 H (1.3-7.7) k/uL Glucose 112 H (74-99) mg/dL AST 58 H (14-36) U/L ALT 168 H (9-52) U/L Alkaline Phosphatase 143 H (38-126) U/L Diabetes panel 10/10/16 Range/Units 07:58 Sodium 144 (137-145) mmol/L Potassium 4.5 (3.5-5.1) mmol/L Chloride 106 (98-107) mmol/L Carbon Dioxide 26 (22-30) mmol/L BUN 8 (7-17) mg/dL Creatinine 0.53 (0.52-1.04) mg/dL Glucose 112 H (74-99) mg/dL Calcium 9.6 (8.4-10.2) mg/dL AST 58 H (14-36) U/L ALT 168 H (9-52) U/L Alkaline Phosphatase 143 H (38-126) U/L Total Protein 6.7 (6.3-8.2) g/dL Albumin 3.9 (3.5-5.0) g/dL Calcium panel 10/10/16 Range/Units 07:58 Calcium 9.6 (8.4-10.2) mg/dL Albumin 3.9 (3.5-5.0) g/dL Pituitary panel 10/10/16 Range/Units 07:58 Sodium 144 (137-145) mmol/L Potassium 4.5 (3.5-5.1) mmol/L Chloride 106 (98-107) mmol/L Carbon Dioxide 26 (22-30) mmol/L BUN 8 (7-17) mg/dL Creatinine 0.53 (0.52-1.04) mg/dL Glucose 112 H (74-99) mg/dL Calcium 9.6 (8.4-10.2) mg/dL Adrenal panel 10/10/16 Range/Units 07:58 Sodium 144 (137-145) mmol/L Potassium 4.5 (3.5-5.1) mmol/L Chloride 106 (98-107) mmol/L Carbon Dioxide 26 (22-30) mmol/L BUN 8 (7-17) mg/dL Creatinine 0.53 (0.52-1.04) mg/dL Glucose 112 H (74-99) mg/dL Calcium 9.6 (8.4-10.2) mg/dL Total Bilirubin 1.1 (0.2-1.3) mg/dL AST 58 H (14-36) U/L ALT 168 H (9-52) U/L Alkaline Phosphatase 143 H (38-126) U/L Total Protein 6.7 (6.3-8.2) g/dL Albumin 3.9 (3.5-5.0) g/dL - Imaging Abdominal x-ray: report reviewed Assessment and Plan Plan: Impression and plan: 1. Dysphagia status post EGD with balloon dilatation with findings of mild esophagitis but no evidence of stricture. 2. Acute abdominal pain postoperatively, resolved. Abdominal x-ray negative for pneumoperitoneum. 3. Leukocytosis, suspect reactive. 4. Elevated liver enzymes, improved, suspect secondary to history of ischemic hepatitis from hypotension secondary to dehydration. 5. 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 6. History of laparoscopic cholecystectomy. From a surgical standpoint, patient is stable for discharge. Patient will be discharged on a soft diet and follow-up with Dr. Jha in the outpatient setting. The above impression and plan have been discussed and directed by Dr. Jha. Epifanio CHAUDHARI acting as scribe for Dr. Jha.
[2016-10-11 04:33] LABS: EBV - VCA (IgG) <10.0 U/mL (<18.0)
[2016-10-11 04:34] LABS: EBV - EA (IgG) <5.0 U/mL (<9.0); EBV - EBNA (IgG) 11.8 U/mL (<18.0); EBV - VCA IgM <10.0 U/mL (<36.0)
== END 2016-10-10 15:37 | disposition home or self-care (01) ==
LOC: ORWHC2ENDO 09:18 → 6PED 11:09 → ORWHC2ENDO 10-10 15:37
PROVIDERS: ATTEND Surgery
DX: K20.9 Esophagitis, unspecified (principal); R13.10 Dysphagia, unspecified; D72.829 Elevated white blood cell count, unspecified; R74.8 Abnormal levels of other serum enzymes; Z98.84 Bariatric surgery status; E66.9 Obesity, unspecified; F41.0 Panic disorder [episodic paroxysmal anxiety]
CPT/HCPCS: 81025; 85379; 86665 ×2; 80053; 86663; 86664; 85025; 86644; 86645; 74000; 43249; J1100; J2550; J2405; J2001; J1170; J2704; C1726

== ENCOUNTER → 2016-10-23 | Outpatient (CLI) | payer BC ==
[2016-10-23 16:52] LABS: CH 28.7; HCT 43.2 % (34.0-46.0); HDW 2.51; HGB 13.9 gm/dL (11.4-16.0); MCHC 32.2 g/dL (31.0-37.0); Mean Platelet Volume 7.2; RBC 4.79 m/uL (3.80-5.40); RDW 13.6 % (11.5-15.5); WBC 10.3 k/uL (3.8-10.6)
[2016-10-23 17:12] LABS: ALT 34 U/L (9-52); AST 25 U/L (14-36); Alkaline Phosphatase 81 U/L (38-126); Amylase 54 U/L (30-110); Anion Gap 11 mmol/L; Blood Urea Nitrogen 17 mg/dL (7-17); Calcium 9.4 mg/dL (8.4-10.2); Carbon Dioxide 23 mmol/L (22-30); Chloride 107 mmol/L (98-107); Glucose 88 mg/dL (74-99); Non-African American GFR(MDRD) >60 (>60 ml/min/1.73 sqM); Potassium 4.7 mmol/L (3.5-5.1); Sodium 141 mmol/L (137-145); Total Protein 7.5 g/dL (6.3-8.2)
== END | disposition home or self-care (01) ==
LOC: LABWHC1 16:39
PROVIDERS: ATTEND Family Medicine
DX: E66.01 Morbid (severe) obesity due to excess calories (principal); R10.11 Right upper quadrant pain; Z71.89 Other specified counseling; Z68.43 Body mass index [BMI] 50.0-59.9, adult
CPT/HCPCS: 36415; 80053; 82150; 83690; 85027

== ENCOUNTER 2016-10-24 12:47 | Day surgery (SDC) | payer BC ==
[2016-10-24 13:19] VITALS: RESP 16; TEMP 98
[2016-10-24] MEDS ORDERED: LACTATED RINGERS 1,000 ML IV ONE (13:23)
--- NOTE | 2016-10-24 14:32 | P.GSHP ---
History of Present Illness H&P Date: 10/24/16 Chief Complaint: Epigastric and right quadrant pain This is a 18-year-old female who presents today for EGD. Patient's had complaints of epigastric and right upper quadrant pain. Patient has a previous history of gastric sleeve surgery. Patient states her pain ranges from 5-8 out of 10. It is intermittent and crampy - Constitutional Constitutional: Reports as per HPI Past Medical History Past Medical History: No Reported History Additional Past Medical History / Comment(s): NAUSEA AND VOMITING, history of sleeve gastrectomy as well as laparoscopic gallbladder surgery as well in 2007. removal of rt falopian tube due to cyst in 2014 History of Any Multi-Drug Resistant Organisms: None Reported Past Surgical History: Bariatric Surgery, Cholecystectomy Additional Past Surgical History / Comment(s): right fallopian tube removed May 2015, SLEEVE GASTRECTOMY 03/26/16 Past Anesthesia/Blood Transfusion Reactions: Postoperative Nausea & Vomiting ( PONV) Past Psychological History: Panic Disorder Additional Psychological History / Comment(s): PASSED OUT AT WORK AND HAD PANIC ATTACK. one time issue per pt. no problems since Smoking Status: Never smoker Past Alcohol Use History: None Reported Past Drug Use History: None Reported - Past Family History Sister(s) Family Medical History: Deep Vein Thrombosis (DVT) Mother Family Medical History: Hyperlipidemia, Hypertension Additional Family Medical History / Comment(s): HEART PROBLEMS, IRREG RYTHM Father Family Medical History: Hyperlipidemia, Hypertension Medications and Allergies Home Medications Medication Instructions Recorded Confirmed Type Multivitamin [Multivitamins Adult 1 tab PO BID 08/06/16 10/24/16 History Gummies] Cephalexin [Keflex] 500 mg PO Q8HR 10/24/16 10/24/16 History traMADol HCL [Ultram] 50 mg PO Q6HR PRN 10/24/16 10/24/16 History Allergies Allergy/AdvReac Type Severity Reaction Status Date / Time amoxicillin [Amoxicillin] AdvReac yeast Verified 10/09/16 09:33 infection Surgical - Exam Vital Signs Temp Pulse Resp BP Pulse Ox 98.0 F 76 16 126/87 99 10/24/16 13:17 10/24/16 13:17 10/24/16 13:17 10/24/16 13:17 10/24/16 13:17 - General well developed, no distress - Eyes PERRL - ENT normal pinna - Neck no masses - Respiratory normal expansion - Cardiovascular Rhythm: regular - Abdomen Abdomen: soft, non tender Assessment and Plan Plan: Epigastric abdominal pain. We'll perform EGD.
[2016-10-24] MEDS ORDERED: PROPOFOL 10 MG/ML 20 ML VIAL IV ONE (14:37)
--- NOTE | 2016-10-24 14:49 | P.OP ---
Date of Procedure: 10/24/16 Preoperative Diagnosis: Epigastric pain Postoperative Diagnosis: Mild antral gastritis No evidence of sleeve stricture No evidence of GE junction stricture Procedure(s) Performed: EGD Anesthesia: MAC Surgeon: Cali Jha Pathology: other (Antrum, esophagus) Condition: stable Disposition: PACU Description of Procedure: The patient's placed on the endoscopy table in the lateral position. She received IV sedation. The gastroscope placed oropharynx and passed into the esophagus and into the stomach. The scope was then placed through the pylorus. The first and second portion of the duodenum appeared normal. The scope was then brought back the antrum and this appeared to be mild inflammation. This was biopsied. The scope was then brought back through the gastric sleeve. There is no evidence of any twisting or scarring of the sleeve. There is no stenosis of the sleeve. The scope was then brought back to the level of the GE junction and this appeared to be no evidence of obstruction or stenosis. The scope was then brought back and the distal esophagus and this appeared mildly inflamed. A biopsies was performed. The proximal esophagus appeared normal. The scope was withdrawn for patient.
[2016-10-24] MEDS ORDERED: HYDROmorphone 1 MG/ML 1 ML SYRINGE IVP STA ×2 (15:44→16:30)
[2016-10-24] MEDS ORDERED: ONDANSETRON 4 MG/2 ML VIAL IVP STA (15:45)
[2016-10-24 17:13] VITALS: BP 118/74; PULSE 63
== END 2016-10-24 17:51 | disposition home or self-care (01) ==
LOC: ORWHC2ENDO 12:47
PROVIDERS: ATTEND Surgery
DX: K20.8 Other esophagitis (principal); K29.50 Unspecified chronic gastritis without bleeding; Z88.0 Allergy status to penicillin; Z79.1 Long term (current) use of non-steroidal anti-inflammatories (NSAID); Z98.84 Bariatric surgery status; Z79.2 Long term (current) use of antibiotics
CPT/HCPCS: 81025; 88305; 88342; 43239; J2405; J1170; J2704

== ENCOUNTER 2016-10-31 15:36 | Emergency (ER) | payer BC ==
[2016-10-31 16:35] VITALS: RESP 18; TEMP 98.1
[2016-10-31] MEDS ORDERED: HYDROmorphone 1 MG/ML 1 ML SYRINGE IVP STA ×2 (16:58→19:01)
[2016-10-31] MEDS ORDERED: SODIUM CHLORIDE 0.9% 1,000 ML IV STA (16:58)
[2016-10-31] MEDS ORDERED: ONDANSETRON 4 MG/2 ML VIAL IVP STA (16:58)
--- NOTE | 2016-10-31 17:06 | ED ---
Abdominal Pain HPI - General Chief Complaint: Abdominal Pain Stated Complaint: Dr Aguilar/Rt side pain Time Seen by Provider: 10/31/16 16:52 Source: patient, RN notes reviewed Mode of arrival: ambulatory Limitations: no limitations - History of Present Illness Initial Comments: 26-year-old female presents emergency Department chief complaint of right-sided abdominal pain. Patient states she is admitted proximal one month ago for elevated liver function, similar pain. Patient states she's been a few days in the hospital which came back down to normal. Patient states that over the last day or 2 she's had increased pain. She states she saw her primary care physician yesterday Dr. Allen who gave her pain shot and told to come emergency department symptoms worsen. Patient contacted the office today advised to come here. Patient states she's nauseated no vomiting. She states she has had some loose stool and pain with bowel movements. Patient has a rectal bleeding or melena. Patient denies fever, chills, chest pain or shortness breath. She states she cannot tolerate the pain anymore she did try taking Tylenol codeine at home with no relief. Patient denies dysuria or hematuria. She has admitted to started her menstrual cycle and thought this was her pain initially. Patient had a prior gastric sleeve, cholecystectomy, right fallopian tube removed secondary to cyst. Patient states she is scheduled for exploratory surgery but Dr. Jha. Patient has had recent EGD with biopsy which showed gastritis. - Related Data Home Medications Medication Instructions Recorded Confirmed Multivitamin [Multivitamins Adult 1 tab PO BID 08/06/16 10/31/16 Gummies] Cephalexin [Keflex] 500 mg PO Q8HR 10/24/16 10/31/16 Acetaminophen with Codeine 1 tab PO Q4-6H PRN 10/31/16 10/31/16 [Tylenol w/codeine #4] Previous Rx's Medication Instructions Recorded Ketorolac [Toradol] 10 mg PO Q6HR PRN #24 tab 10/10/16 HYDROcodone/APAP 7.5-325MG [[place] 1 tab PO Q6HR PRN #20 tab 10/31/16 7.5-325] Allergies Allergy/AdvReac Type Severity Reaction Status Date / Time amoxicillin [Amoxicillin] AdvReac yeast Verified 10/31/16 17:19 infection Review of Systems ROS Statement: Those systems with pertinent positive or pertinent negative responses have been documented in the HPI. ROS Other: All systems not noted in ROS Statement are negative. Past Medical History Past Medical History: No Reported History Additional Past Medical History / Comment(s): NAUSEA AND VOMITING, history of sleeve gastrectomy as well as laparoscopic gallbladder surgery as well in 2007. removal of rt falopian tube due to cyst in 2014 History of Any Multi-Drug Resistant Organisms: None Reported Past Surgical History: Bariatric Surgery, Cholecystectomy Additional Past Surgical History / Comment(s): right fallopian tube removed May 2015, SLEEVE GASTRECTOMY 03/26/16 Past Anesthesia/Blood Transfusion Reactions: Postoperative Nausea & Vomiting ( PONV) Past Psychological History: Panic Disorder Additional Psychological History / Comment(s): PASSED OUT AT WORK AND HAD PANIC ATTACK. one time issue per pt. no problems since Smoking Status: Never smoker Past Alcohol Use History: None Reported Past Drug Use History: None Reported - Past Family History Sister(s) Family Medical History: Deep Vein Thrombosis (DVT) Mother Family Medical History: Hyperlipidemia, Hypertension Additional Family Medical History / Comment(s): HEART PROBLEMS, IRREG RYTHM Father Family Medical History: Hyperlipidemia, Hypertension General Exam Limitations: no limitations General appearance: alert, in no apparent distress ENT exam: Present: normal exam, mucous membranes moist Neck exam: Present: normal inspection. Absent: tenderness, meningismus, lymphadenopathy Respiratory exam: Present: normal lung sounds bilaterally. Absent: respiratory distress, wheezes, rales, rhonchi, stridor Cardiovascular Exam: Present: regular rate, normal rhythm, normal heart sounds. Absent: systolic murmur, diastolic murmur, rubs, gallop, clicks GI/Abdominal exam: Present: soft, tenderness (Moderate right-sided abdominal tenderness severe lower to mid ), normal bowel sounds. Absent: distended, guarding, rebound, rigid Back exam: Present: full ROM, CVA tenderness (R). Absent: CVA tenderness (L), paraspinal tenderness, vertebral tenderness Neurological exam: Present: alert, oriented X3, CN II-XII intact, reflexes normal. Absent: motor sensory deficit Skin exam: Present: warm, dry, intact, normal color. Absent: rash Course Vital Signs 10/31/16 16:32 Temperature 98.1 F Pulse Rate 78 Respiratory 18 Rate Blood Pressure 139/77 O2 Sat by Pulse 100 Oximetry Medical Decision Making - Medical Decision Making 18-year-old female presented emergency department with chief complaint of developing. CT shows no acute abnormality, lab work within normal limits. Patient has been having ongoing pain. Patient be discharged with pain medication and advised to follow-up with Dr. Jha. - Lab Data Result diagrams: 10/31/16 17:30 10/31/16 17:30 Lab Results 10/31/16 10/31/16 10/31/16 Range/Units 17:30 17:30 17:30 WBC 9.1 (3.8-10.6) k/uL RBC 4.25 (3.80-5.40) m/uL Hgb 12.4 (11.4-16.0) gm/dL Hct 38.4 (34.0-46.0) % MCV 90.4 (80.0-100.0) fL MCH 29.1 (25.0-35.0) pg MCHC 32.2 (31.0-37.0) g/dL RDW 13.6 (11.5-15.5) % Plt Count 239 (150-450) k/uL Neutrophils % 73 % Lymphocytes % 20 % Monocytes % 4 % Eosinophils % 2 % Basophils % 0 % Neutrophils # 6.6 (1.3-7.7) k/uL Lymphocytes # 1.8 (1.0-4.8) k/uL Monocytes # 0.4 (0-1.0) k/uL Eosinophils # 0.1 (0-0.7) k/uL Basophils # 0.0 (0-0.2) k/uL Sodium 142 (137-145) mmol/L Potassium 4.3 (3.5-5.1) mmol/L Chloride 107 (98-107) mmol/L Carbon Dioxide 24 (22-30) mmol/L Anion Gap 11 mmol/L BUN 19 H (7-17) mg/dL Creatinine 0.73 (0.52-1.04) mg/dL Est GFR (MDRD) Af Amer >60 (>60 ml/min/1.73 sqM) Est GFR (MDRD) Non-Af >60 (>60 ml/min/1.73 sqM) Glucose 83 (74-99) mg/dL Calcium 9.4 (8.4-10.2) mg/dL Total Bilirubin 0.8 (0.2-1.3) mg/dL AST 31 (14-36) U/L ALT 39 (9-52) U/L Alkaline Phosphatase 85 (38-126) U/L Total Protein 7.5 (6.3-8.2) g/dL Albumin 4.4 (3.5-5.0) g/dL Amylase 57 (30-110) U/L Lipase 123 (23-300) U/L HCG, Qual Not Detected Urine Color Urine Appearance (Clear) Urine pH (5.0-8.0) Ur Specific [place] (1.001-1.035) Urine Protein (Negative) Urine Glucose (UA) (Negative) Urine Ketones (Negative) Urine Blood (Negative) Urine Nitrite (Negative) Urine Bilirubin (Negative) Urine Urobilinogen (<2.0) mg/dL Ur Leukocyte Esterase (Negative) Urine RBC (0-5) /hpf Urine WBC (0-5) /hpf Urine HCG, Qual (Not Detectd) 10/31/16 10/31/16 Range/Units 17:54 17:54 WBC (3.8-10.6) k/uL RBC (3.80-5.40) m/uL Hgb (11.4-16.0) gm/dL Hct (34.0-46.0) % MCV (80.0-100.0) fL MCH (25.0-35.0) pg MCHC (31.0-37.0) g/dL RDW (11.5-15.5) % Plt Count (150-450) k/uL Neutrophils % % Lymphocytes % % Monocytes % % Eosinophils % % Basophils % % Neutrophils # (1.3-7.7) k/uL Lymphocytes # (1.0-4.8) k/uL Monocytes # (0-1.0) k/uL Eosinophils # (0-0.7) k/uL Basophils # (0-0.2) k/uL Sodium (137-145) mmol/L Potassium (3.5-5.1) mmol/L Chloride (98-107) mmol/L Carbon Dioxide (22-30) mmol/L Anion Gap mmol/L BUN (7-17) mg/dL Creatinine (0.52-1.04) mg/dL Est GFR (MDRD) Af Amer (>60 ml/min/1.73 sqM) Est GFR (MDRD) Non-Af (>60 ml/min/1.73 sqM) Glucose (74-99) mg/dL Calcium (8.4-10.2) mg/dL Total Bilirubin (0.2-1.3) mg/dL AST (14-36) U/L ALT (9-52) U/L Alkaline Phosphatase (38-126) U/L Total Protein (6.3-8.2) g/dL Albumin (3.5-5.0) g/dL Amylase (30-110) U/L Lipase (23-300) U/L HCG, Qual Urine Color Light Red Urine Appearance Clear (Clear) Urine pH 5.5 (5.0-8.0) Ur Specific [place] 1.020 (1.001-1.035) Urine Protein 1+ H (Negative) Urine Glucose (UA) Negative (Negative) Urine Ketones 1+ H (Negative) Urine Blood Large H (Negative) Urine Nitrite Negative (Negative) Urine Bilirubin Negative (Negative) Urine Urobilinogen <2.0 (<2.0) mg/dL Ur Leukocyte Esterase Small H (Negative) Urine RBC >182 H (0-5) /hpf Urine WBC 14 H (0-5) /hpf Urine HCG, Qual Not Detected (Not Detectd) Disposition Clinical Impression: Abdominal pain Disposition: HOME SELF-CARE Condition: Stable Instructions: Abdominal Pain (ED) Additional Instructions: Follow-up with your primary care physician and surgeon.Please return to the Emergency Department if symptoms worsen or any other concerns. Prescriptions: HYDROcodone/APAP 7.5-325MG [[place] 7.5-325] 1 tab PO Q6HR PRN #20 tab PRN Reason: Pain Time of Disposition: 19:33
[2016-10-31 17:40] LABS: Basophils % (A) 0 %; CH 29.3; CHCM 32.6; Eosinophils # (A) 0.1 k/uL (0-0.7); Eosinophils % (A) 2 %; HCT 38.4 % (34.0-46.0); HDW 2.42; HGB 12.4 gm/dL (11.4-16.0); Luc # (Auto) 0.14; Luc % (Auto) 2; Lymphocytes # (A) 1.8 k/uL (1.0-4.8); Lymphocytes % (A) 20 %; MCH 29.1 pg (25.0-35.0); MCHC 32.2 g/dL (31.0-37.0); MCV 90.4 fL (80.0-100.0); Mean Platelet Volume 7.4; Monocytes # (A) 0.4 k/uL (0-1.0); Monocytes % (A) 4 %; Neutrophils # (A) 6.6 k/uL (1.3-7.7); Neutrophils % (A) 73 %; RBC 4.25 m/uL (3.80-5.40); RDW 13.6 % (11.5-15.5); WBC 9.1 k/uL (3.8-10.6); WBC (Perox) 9.36
[2016-10-31 17:50] LABS: ALT 39 U/L (9-52); AST 31 U/L (14-36); Alkaline Phosphatase 85 U/L (38-126); Amylase 57 U/L (30-110); Anion Gap 11 mmol/L; Blood Urea Nitrogen 19 mg/dL (7-17); Calcium 9.4 mg/dL (8.4-10.2); Carbon Dioxide 24 mmol/L (22-30); Chloride 107 mmol/L (98-107); Glucose 83 mg/dL (74-99); Non-African American GFR(MDRD) >60 (>60 ml/min/1.73 sqM); Potassium 4.3 mmol/L (3.5-5.1); Sodium 142 mmol/L (137-145); Total Bilirubin 0.8 mg/dL (0.2-1.3); Total Protein 7.5 g/dL (6.3-8.2)
[2016-10-31] MEDS ORDERED: RX INFO: IV CONTRAST WAS GIVEN 1 EACH MISC MISCELLANE PRN (17:55)
[2016-10-31 18:26] LABS: Appearance,Urine Clear (Clear); Bilirubin,Urine Negative (Negative); Glucose,Urine (UA) Negative (Negative); Ketones,Urine 1+ (Negative); Leukocyte Esterase,Urine Small (Negative); Nitrite,Urine Negative (Negative); PH, Urine 5.5 (5.0-8.0); Particle Count 3037; Protein,Urine 1+ (Negative); RBC,Urine >182 /hpf (0-5); UA Billing (MACRO vs. MICRO) MICRO; Urobilinogen,Urine <2.0 mg/dL (<2.0); WBC,Urine 14 /hpf (0-5)
--- NOTE | 2016-10-31 19:13 | CT ---
EXAMINATION TYPE: CT abdomen pelvis w con DATE OF EXAM: 10/31/2016 6:59 PM COMPARISON: 10/01/2016 HISTORY: Right lower quadrant pain x [address] DLP: 1694.00 mGycm Automated exposure control for dose reduction was used. TECHNIQUE: Helical acquisition of images was performed from the lung bases through the pelvis. CONTRAST: Performed without Oral Contrast and with IV Contrast, patient injected with 100 mL of Omnipaque 300. FINDINGS: The lung bases are clear. There is no pleural effusion. There are clips from cholecystectomy. Liver spleen pancreas appear normal. Bile ducts are not dilated . There is no adrenal mass. Kidneys show satisfactory contrast opacification. There is no hydronephro sis. There is no retroperitoneal adenopathy. There is no ascites. Bladder distends smoothly. There is no sign of a pelvic mass. I see no intestinal wall thickening. There are no dilated loops. Appendix appears normal. There is no evidence of a bony destructive process. IMPRESSION: CHOLECYSTECTOMY. NO DILATED DUCTS. NO SIGN OF ACUTE ABDOMEN AND PELVIS. NORMAL APPENDIX.
[2016-10-31] MEDS ORDERED: KETOROLAC 30 MG/ML 1 ML VIAL IVP STA (19:33)
[2016-10-31 20:16] VITALS: BP 117/63; PULSE 77
== END 2016-10-31 19:54 | disposition home or self-care (01) ==
LOC: EC 15:36
DX: R10.9 Unspecified abdominal pain (principal); R11.0 Nausea; Z79.899 Other long term (current) drug therapy; Z88.0 Allergy status to penicillin; Z98.84 Bariatric surgery status; Z90.49 Acquired absence of other specified parts of digestive tract; Z90.3 Acquired absence of stomach [part of]
CPT/HCPCS: 36415; 80053; 82150; 83690; 85025; 81001; 81025; 84703; 74177; 99284; 96374; 96376; 96375; 96361; J2405; J1170; Q9967

== ENCOUNTER 2016-11-04 19:57 | Emergency (ER) | payer BC ==
[2016-11-04] MEDS ORDERED: SODIUM CHLORIDE 0.9% 1,000 ML IV STA (20:54)
[2016-11-04] MEDS ORDERED: HYDROmorphone 1 MG/ML 1 ML SYRINGE IVP STA ×2 (20:54→23:02)
[2016-11-04] MEDS ORDERED: ONDANSETRON 4 MG/2 ML VIAL IVP STA (20:54)
[2016-11-04 21:45] LABS: Basophils % (A) 1 %; CH 29.6; CHCM 33.3; Eosinophils # (A) 0.2 k/uL (0-0.7); Eosinophils % (A) 2 %; HCT 37.8 % (34.0-46.0); HDW 2.45; HGB 12.2 gm/dL (11.4-16.0); Luc # (Auto) 0.16; Luc % (Auto) 2; Lymphocytes # (A) 2.2 k/uL (1.0-4.8); Lymphocytes % (A) 31 %; MCH 28.8 pg (25.0-35.0); MCHC 32.3 g/dL (31.0-37.0); Monocytes # (A) 0.3 k/uL (0-1.0); Monocytes % (A) 4 %; Neutrophils # (A) 4.5 k/uL (1.3-7.7); Neutrophils % (A) 61 %; RBC 4.25 m/uL (3.80-5.40); RDW 13.7 % (11.5-15.5); WBC 7.4 k/uL (3.8-10.6); WBC (Perox) 7.14
[2016-11-04 21:49] VITALS: RESP 16
[2016-11-04 21:55] LABS: ALT 46 U/L (9-52); AST 25 U/L (14-36); Alkaline Phosphatase 71 U/L (38-126); Amylase 40 U/L (30-110); Anion Gap 9 mmol/L; Blood Urea Nitrogen 17 mg/dL (7-17); Calcium 9.2 mg/dL (8.4-10.2); Carbon Dioxide 23 mmol/L (22-30); Chloride 109 mmol/L (98-107); Glucose 82 mg/dL (74-99); Non-African American GFR(MDRD) >60 (>60 ml/min/1.73 sqM); Potassium 4.1 mmol/L (3.5-5.1); Sodium 141 mmol/L (137-145); Total Bilirubin 0.6 mg/dL (0.2-1.3); Total Protein 6.5 g/dL (6.3-8.2)
--- NOTE | 2016-11-04 21:56 | ED ---
Abdominal Pain HPI - General Chief Complaint: Abdominal Pain Stated Complaint: right flank pain-revisit Time Seen by Provider: 11/04/16 20:20 Source: patient, RN notes reviewed, old records reviewed Mode of arrival: ambulatory Limitations: no limitations - History of Present Illness Initial Comments: Patient is a 26-year-old female with chief complaint of right upper quadrant flank pain for approximately few weeks. She was seen in emergency department a few days ago and was told to follow-up with her surgeon. Lab work at that time was also negative. Patient states that she had a CAT scan earlier this week. Patient states that she was discharged with medication and advised to follow-up with her surgeon Dr. Jha on Saturday. She does have an appointment tomorrow with him. She states that she's been vomiting and she is unable to get comfortable at all. Patient states she's had chills no fever. - Related Data Home Medications Medication Instructions Recorded Confirmed Multivitamin [Multivitamins Adult 1 tab PO BID 08/06/16 11/04/16 Gummies] Acetaminophen Tab [Tylenol Tab] 1,000 mg PO Q6HR PRN 11/04/16 11/04/16 Previous Rx's Medication Instructions Recorded HYDROcodone/APAP 5-325MG [[place] 1 tab PO Q6HR PRN #10 tab 11/04/16 5-325] Ondansetron Odt [Zofran Odt] 4 mg PO Q8HR PRN #12 tab 11/04/16 Allergies Allergy/AdvReac Type Severity Reaction Status Date / Time amoxicillin [Amoxicillin] AdvReac yeast Verified 11/04/16 20:22 infection Review of Systems ROS Statement: Those systems with pertinent positive or pertinent negative responses have been documented in the HPI. ROS Other: All systems not noted in ROS Statement are negative. Past Medical History Past Medical History: No Reported History Additional Past Medical History / Comment(s): NAUSEA AND VOMITING, history of sleeve gastrectomy as well as laparoscopic gallbladder surgery as well in 2007. removal of rt falopian tube due to cyst in 2014 History of Any Multi-Drug Resistant Organisms: None Reported Past Surgical History: Bariatric Surgery, Cholecystectomy Additional Past Surgical History / Comment(s): right fallopian tube removed May 2015, SLEEVE GASTRECTOMY 03/26/16 Past Anesthesia/Blood Transfusion Reactions: Postoperative Nausea & Vomiting ( PONV) Past Psychological History: Panic Disorder Additional Psychological History / Comment(s): PASSED OUT AT WORK AND HAD PANIC ATTACK. one time issue per pt. no problems since Smoking Status: Never smoker Past Alcohol Use History: None Reported Past Drug Use History: None Reported - Past Family History Sister(s) Family Medical History: Deep Vein Thrombosis (DVT) Mother Family Medical History: Hyperlipidemia, Hypertension Additional Family Medical History / Comment(s): HEART PROBLEMS, IRREG RYTHM Father Family Medical History: Hyperlipidemia, Hypertension General Exam - General Exam Comments Initial Comments: 18-year-old female chief complaint of right upper quadrant and right flank pain. Patient reports she does have some diffuse abdominal tenderness. Patient appears to be in discomfort. Limitations: no limitations General appearance: alert, in no apparent distress Head exam: Present: atraumatic, normocephalic, normal inspection Eye exam: Present: normal appearance, PERRL, EOMI. Absent: scleral icterus, conjunctival injection, periorbital swelling ENT exam: Present: normal exam, mucous membranes moist Neck exam: Present: normal inspection. Absent: tenderness, meningismus, lymphadenopathy Respiratory exam: Present: normal lung sounds bilaterally. Absent: respiratory distress, wheezes, rales, rhonchi, stridor Cardiovascular Exam: Present: regular rate, normal rhythm, normal heart sounds. Absent: systolic murmur, diastolic murmur, rubs, gallop, clicks GI/Abdominal exam: Present: soft, tenderness (Right upper quadrant right flank tenderness.), normal bowel sounds. Absent: distended, guarding, rebound, rigid Extremities exam: Present: normal inspection, full ROM, normal capillary refill. Absent: tenderness, pedal edema, joint swelling, calf tenderness Back exam: Present: normal inspection Neurological exam: Present: alert, oriented X3, CN II-XII intact Psychiatric exam: Present: normal affect, normal mood Skin exam: Present: warm, dry, intact, normal color. Absent: rash Course Vital Signs 11/04/16 11/04/16 11/04/16 20:11 21:48 23:23 Temperature 98.6 F 98.2 F 97.8 F Pulse Rate 68 80 78 Respiratory 20 16 16 Rate Blood Pressure 143/91 128/78 140/85 O2 Sat by Pulse 100 98 99 Oximetry Medical Decision Making - Medical Decision Making Patient is a 26-year-old female with chief complaint of right upper quadrant flank pain for approximately few weeks. She was seen in emergency department a few days ago and was told to follow-up with her surgeon. Lab work at that time was also negative. Patient states that she had a CAT scan earlier this week. Patient states that she was discharged with medication and advised to follow-up with her surgeon Dr. Jha on Saturday. Lab work was negative today. Patient given lakeshia medication. Discussed negative cat scan earlier in the week, should not be repeated. Patient agrees to to follow up, will be discharged with pain and nausea medication. - Lab Data Result diagrams: 11/04/16 21:30 11/04/16 21:30 Lab Results 11/04/16 11/04/16 11/04/16 Range/Units 21:30 21:30 22:25 WBC 7.4 (3.8-10.6) k/uL RBC 4.25 (3.80-5.40) m/uL Hgb 12.2 (11.4-16.0) gm/dL Hct 37.8 (34.0-46.0) % MCV 89.0 (80.0-100.0) fL MCH 28.8 (25.0-35.0) pg MCHC 32.3 (31.0-37.0) g/dL RDW 13.7 (11.5-15.5) % Plt Count 237 (150-450) k/uL Neutrophils % 61 % Lymphocytes % 31 % Monocytes % 4 % Eosinophils % 2 % Basophils % 1 % Neutrophils # 4.5 (1.3-7.7) k/uL Lymphocytes # 2.2 (1.0-4.8) k/uL Monocytes # 0.3 (0-1.0) k/uL Eosinophils # 0.2 (0-0.7) k/uL Basophils # 0.0 (0-0.2) k/uL Sodium 141 (137-145) mmol/L Potassium 4.1 (3.5-5.1) mmol/L Chloride 109 H (98-107) mmol/L Carbon Dioxide 23 (22-30) mmol/L Anion Gap 9 mmol/L BUN 17 (7-17) mg/dL Creatinine 0.60 (0.52-1.04) mg/dL Est GFR (MDRD) Af Amer >60 (>60 ml/min/1.73 sqM) Est GFR (MDRD) Non-Af >60 (>60 ml/min/1.73 sqM) Glucose 82 (74-99) mg/dL Calcium 9.2 (8.4-10.2) mg/dL Total Bilirubin 0.6 (0.2-1.3) mg/dL AST 25 (14-36) U/L ALT 46 (9-52) U/L Alkaline Phosphatase 71 (38-126) U/L Total Protein 6.5 (6.3-8.2) g/dL Albumin 3.8 (3.5-5.0) g/dL Amylase 40 (30-110) U/L Lipase 94 (23-300) U/L Urine Color Yellow Urine Appearance Clear (Clear) Urine pH 6.5 (5.0-8.0) Ur Specific [place] 1.021 (1.001-1.035) Urine Protein Negative (Negative) Urine Glucose (UA) Negative (Negative) Urine Ketones 1+ H (Negative) Urine Blood Trace H (Negative) Urine Nitrite Negative (Negative) Urine Bilirubin Negative (Negative) Urine Urobilinogen 2.0 (<2.0) mg/dL Ur Leukocyte Esterase Negative (Negative) Urine RBC 1 (0-5) /hpf Urine WBC 1 (0-5) /hpf Ur Squamous Epith Cells 2 (0-4) /hpf Amorphous Sediment Rare H (None) /hpf Hyaline Casts 1 (0-2) /lpf Urine Mucus Rare H (None) /hpf Disposition Clinical Impression: Abdominal pain Disposition: HOME SELF-CARE Condition: Good Instructions: Abdominal Pain (ED) Additional Instructions: Patient has follow-up with Dr. Jha tomorrow. Continue take pain medication as needed. The emergency room if any alarming signs or symptoms occur. Prescriptions: HYDROcodone/APAP 5-325MG [[place] 5-325] 1 tab PO Q6HR PRN #10 tab PRN Reason: Pain Ondansetron Odt [Zofran Odt] 4 mg PO Q8HR PRN #12 tab PRN Reason: Nausea Referrals: Arley Allen MD [Primary Care Provider] - 1-2 days Time of Disposition: 23:13
[2016-11-04 22:41] LABS: Amorphous Sediment,Urine Rare /hpf; Appearance,Urine Clear (Clear); Bilirubin,Urine Negative (Negative); Glucose,Urine (UA) Negative (Negative); Ketones,Urine 1+ (Negative); Leukocyte Esterase,Urine Negative (Negative); Mucus,Urine Rare /hpf; Nitrite,Urine Negative (Negative); PH, Urine 6.5 (5.0-8.0); Particle Count 3007; Protein,Urine Negative (Negative); RBC,Urine 1 /hpf (0-5); Specific Gravity,Urine 1.021 (1.001-1.035); Squamous Epithelial Cell,Urine 2 /hpf (0-4); UA Billing (MACRO vs. MICRO) MICRO; WBC,Urine 1 /hpf (0-5)
[2016-11-04] MEDS ORDERED: METOCLOPRAMIDE 5 MG/ML 2 ML VIAL IVP STA (23:02)
[2016-11-04 23:25] VITALS: BP 140/85; PULSE 78; TEMP 97.8
== END 2016-11-04 23:48 | disposition home or self-care (01) ==
LOC: EC 19:57
DX: R10.11 Right upper quadrant pain (principal); R11.10 Vomiting, unspecified; Z79.899 Other long term (current) drug therapy; Z88.0 Allergy status to penicillin; Z90.49 Acquired absence of other specified parts of digestive tract; Z98.84 Bariatric surgery status
CPT/HCPCS: 36415; 80053; 82150; 83690; 85025; 81001; 99284; 96374; 96375 ×2; 96376; 96361; J2765; J2405; J1170

== ENCOUNTER → 2016-11-05 | Outpatient (CLI) | payer BC ==
[2016-11-05 12:51] VITALS: BP 128/81; PULSE 69; RESP 16; TEMP 98.1; BMI 38.5
--- NOTE | 2016-11-05 13:43 | P.HPBAR ---
Bariatric H&P - History & Physicial H&P Date: 11/05/16 History & Physicial: Visit/CC: sleeve follow-up Patient initial contact: Initial weight: 138.062 kg Initial weight in pounds: 304.37 Height: 5 ft 3 in Initial BMI: 53.8 Last weight: Current weight: 98.685 kg Current weight in pounds: 217.00 Current BMI: 38.5 [place] body weight (based on NIH guidelines): 52.163 kg Excess body weight loss: 46.1% The patient is a 26 year-old F who presents for Bariatric Assessment. Patient presents today for follow-up. She has complaints of right upper quadrant and right lower quadrant pain she states the pain is quite severe she had she went to the hospital last night and was seen in the emergency room due to pain. Her previous workup including EGD ultrasound CAT scan have all been normal. She states she's had some minimal GERD symptoms. Past Medical History Past Medical History: No Reported History Additional Past Medical History / Comment(s): NAUSEA AND VOMITING, history of sleeve gastrectomy as well as laparoscopic gallbladder surgery as well in 2007. removal of rt falopian tube due to cyst in 2014 History of Any Multi-Drug Resistant Organisms: None Reported Past Surgical History: Bariatric Surgery, Cholecystectomy Additional Past Surgical History / Comment(s): right fallopian tube removed May 2015, SLEEVE GASTRECTOMY 03/26/16 Past Anesthesia/Blood Transfusion Reactions: Postoperative Nausea & Vomiting ( PONV) Past Psychological History: Panic Disorder Additional Psychological History / Comment(s): PASSED OUT AT WORK AND HAD PANIC ATTACK. one time issue per pt. no problems since Smoking Status: Never smoker Past Alcohol Use History: None Reported Past Drug Use History: None Reported - Past Family History Sister(s) Family Medical History: Deep Vein Thrombosis (DVT) Mother Family Medical History: Hyperlipidemia, Hypertension Additional Family Medical History / Comment(s): HEART PROBLEMS, IRREG RYTHM Father Family Medical History: Hyperlipidemia, Hypertension Surgical - Exam Vital Signs Temp Pulse Resp BP 98.1 F 69 16 128/81 11/05/16 12:46 11/05/16 12:46 11/05/16 12:46 11/05/16 12:46 - General well developed, no distress - Eyes PERRL - ENT normal pinna - Neck no masses - Respiratory normal expansion - Cardiovascular Rhythm: regular - Abdomen Patient's abdomen soft. There is some right-sided abdominal pain there is no rebound or guarding. Abdomen: non tender Bariatric Assessment & Plan Plan: Dilantin discussion with the patient. Her workup to date has been negative. The patient wishes to undergo diagnostic laparoscopy to evaluate her pain. I told her that this is unlikely to provide any significant answers for pain. She may have some mild adhesions. I did tell her that I did not think the yield will be high from a diagnostic laparoscopy however the patient is very frustrated. Patiently scheduled for diagnostic laparoscopy. Then over the risks and benefits of the procedure. Bariatric Checklist Checklist: Plan: Checklist: EGD: 1. Hiatal hernia: 2. H. Pylori: HgbA1c: Vitamin D: Smoking: Never smoker Primary care physician referral: Dr. Allen Psychiatry clearance: Cardiology clearance: Sleep study: Diet journal: VTE risk score: VTE risk level: Rehab needs at discharge:
== END | disposition home or self-care (01) ==
LOC: BARWHC3 12:14
PROVIDERS: ATTEND Surgery
DX: R10.31 Right lower quadrant pain (principal); R10.11 Right upper quadrant pain
CPT/HCPCS: 99211

== ENCOUNTER 2016-11-07 11:13 | Observation (INO) | payer BC ==
[2016-11-06 12:12] VITALS: BMI 38.4
[~2016-11-07 11:13] MED LIST: DEXAMETHASONE SOD PHOSPHATE 10 MG/ML 1 ML VIAL IV ONE; LACTATED RINGERS 1,000 ML IV SCH; MIDAZOLAM 2 MG/2 ML VIAL IV PRN; ONDANSETRON 4 MG/2 ML VIAL IVP ONE; Pre Op ABX Message 1 EACH MISC MISCELLANE ONE; SCOPOLAMINE 1.5MG/72HR PATCH TRANSDERM ONE
--- NOTE | 2016-11-07 12:47 | P.GSHP ---
History of Present Illness H&P Date: 11/07/16 Chief Complaint: Abdominal pain This is a 26-year-old female evidence today for diagnostic laparoscopy. The patient has had debilitating right upper quadrant and right lower quadrant pain. Patient's had a previous cholecystectomy performed in the distant past. She has had a CAT scan, EGD, ultrasound which have been normal. The patient states that she is appears history of right ovarian cyst. - Constitutional Constitutional: Reports as per HPI Past Medical History Past Medical History: No Reported History Additional Past Medical History / Comment(s): NAUSEA AND VOMITING, RT FLANK PAIN, History of Any Multi-Drug Resistant Organisms: None Reported Past Surgical History: Bariatric Surgery, Cholecystectomy Additional Past Surgical History / Comment(s): right fallopian tube removed May 2015, SLEEVE GASTRECTOMY 03/26/16, Past Anesthesia/Blood Transfusion Reactions: Postoperative Nausea & Vomiting ( PONV) Past Psychological History: Panic Disorder Additional Psychological History / Comment(s): PASSED OUT AT WORK AND HAD PANIC ATTACK. one time issue per pt. no problems since Smoking Status: Never smoker Past Alcohol Use History: None Reported Past Drug Use History: None Reported - Past Family History Sister(s) Family Medical History: Deep Vein Thrombosis (DVT) Mother Family Medical History: Hyperlipidemia, Hypertension Additional Family Medical History / Comment(s): HEART PROBLEMS, IRREG RYTHM Father Family Medical History: Hyperlipidemia, Hypertension Medications and Allergies Home Medications Medication Instructions Recorded Confirmed Type Multivitamin [Multivitamins Adult 1 tab PO BID 08/06/16 11/07/16 History Gummies] Acetaminophen Tab [Tylenol Tab] 1,000 mg PO Q6HR PRN 11/04/16 11/07/16 History Allergies Allergy/AdvReac Type Severity Reaction Status Date / Time amoxicillin [Amoxicillin] AdvReac yeast Verified 11/07/16 11:42 infection Surgical - Exam Vital Signs Temp Pulse Resp BP Pulse Ox 98.1 F 102 H 16 139/94 99 11/07/16 11:41 11/07/16 11:41 11/07/16 11:41 11/07/16 11:41 11/07/16 11:41 - General well developed, no distress - Eyes PERRL - ENT normal pinna - Neck no masses - Respiratory normal expansion - Cardiovascular Rhythm: regular - Abdomen Abdomen soft. There is mild right upper quadrant and right lower quadrant pain Abdomen: soft Assessment and Plan Plan: Chronic right upper quadrant and right lower quadrant pain we'll perform diagnostic laparoscopy.
[2016-11-07] MEDS ORDERED: fentaNYL (PF) 50 MCG/ML 2 ML AMP ONE (12:59)
[2016-11-07] MEDS ORDERED: GLYCOPYRROLATE 0.2 MG/ML 2 ML VIAL ONE (12:59)
[2016-11-07] MEDS ORDERED: PROPOFOL 10 MG/ML 20 ML VIAL IV ONE (12:59)
[2016-11-07] MEDS ORDERED: SUCCINYLCHOLINE CHLORIDE 100 MG/5 ML SYR IV ONE (12:59)
[2016-11-07] MEDS ORDERED: ROCURONIUM BROMIDE 10 MG/ML 10 ML VIAL IV ONE (12:59)
[2016-11-07] MEDS ORDERED: HYDROmorphone (PF) 1 MG/ML ONE (12:59)
[2016-11-07] MEDS ORDERED: LIDOCAINE 1% INJ 10MG/ML (20 ML MDV) ONE (12:59)
[2016-11-07] MEDS ORDERED: NEOSTIGMINE 1 MG/ML 10 ML VIAL ONE (12:59)
[2016-11-07] MEDS ORDERED: BUPIVACAIN-EPI 0.25%-1:200,000 30 ML VIAL SQ ONE ×2 (13:18)
[2016-11-07] MEDS ORDERED: SODIUM CHLORIDE 0.9% 50 ML with ceFAZolin 2,000 MG IV ONE ×2 (13:29)
--- NOTE | 2016-11-07 14:00 | P.OP ---
Date of Procedure: 11/07/16 Preoperative Diagnosis: Right sided abdominal pain Adhesions Postoperative Diagnosis: Right side dull pain Adhesion Procedure(s) Performed: Diagnostic laparoscopy Lysis of adhesion Anesthesia: ANDI Surgeon: Cali Jha Estimated Blood Loss (ml): 5 Pathology: none sent Condition: stable Disposition: PACU Description of Procedure: The patient's placed on the operating table in the supine position. She received general anesthesia. Her abdomen was prepped and draped in the usual sterile fashion. Using a 5 mm trocar under direct visualization the perineal cavity was entered in the left upper quadrant. Some placed back the pleural cavity and then another 5 mm trocar was placed in the left lower quadrant and another 5 mm trocar was placed in the left lateral position. There were minimal adhesions noted between the right colon and lateral abdominal wall. At this point the patient's placed in Trendelenburg position pelvis was examined. The uterus and ovaries appeared normal. There appeared to be evidence of previous Salpingectomy on the right side. There were adhesions noted between the distal ascending colon and abdominal wall. These were lysed using the Harmonic scissors. There were no other adhesions seen. The small bowel appeared normal. The patient's gastric sleeve was examined and this appeared normal. There is no evidence of any ventral hernias. At this point the trochars withdrawn. The skin was closed interrupted 3-0 Monocryl suture. Dermabond was applied.
[2016-11-07] MEDS: HYDROmorphone 1 MG/ML 1 ML SYRINGE IVP PRN ×5 (14:19→22:13)
[2016-11-07] MEDS ORDERED: HYDROmorphone 1 MG/ML 1 ML SYRINGE IVP ONE ×2 (14:37→15:41)
[2016-11-07] MEDS ORDERED: KETOROLAC 30 MG/ML 1 ML VIAL IVP ONE (14:38)
[2016-11-07] MEDS ORDERED: MEPERIDINE 50 MG/ML SYRINGE IVP ONE (14:44)
[2016-11-07] MEDS ORDERED: MIDAZOLAM 2 MG/2 ML VIAL IVP ONE ×2 (14:47→16:45)
[2016-11-07] MEDS ORDERED: LACTATED RINGERS 1,000 ML IV ONE ×2 (14:54→16:24)
[2016-11-07] MEDS ORDERED: NALOXONE 0.4 MG/ML 1 ML VIAL IV PRN (16:24)
[2016-11-07] MEDS ORDERED: ONDANSETRON 4 MG/2 ML VIAL IVP PRN (16:24)
[2016-11-07] MEDS ORDERED: HYDROcodone/APAP 5-325MG 1 EACH TAB PO PRN (16:24)
[2016-11-07] MEDS ORDERED: MORPHINE SULFATE 4 MG/ML SYRINGE IVP ONE (16:27)
[2016-11-07] MEDS ORDERED: MORPHINE SULFATE 4 MG/ML SYRINGE IVP PRN (16:41)
[2016-11-07] MEDS: KETOROLAC 30 MG/ML 1 ML VIAL IVP SCH (21:08)
[2016-11-08] MEDS: KETOROLAC 30 MG/ML 1 ML VIAL IVP SCH ×2 (02:15→08:20)
[2016-11-08] MEDS: HYDROmorphone 1 MG/ML 1 ML SYRINGE IVP PRN (05:37)
[2016-11-08 07:26] LABS: Basophils % (A) 0 %; CHCM 32.2; Eosinophils % (A) 0 %; HCT 38.2 % (34.0-46.0); HDW 2.51; HGB 12.3 gm/dL (11.4-16.0); Luc # (Auto) 0.07; Luc % (Auto) 1; Lymphocytes # (A) 0.7 k/uL (1.0-4.8); Lymphocytes % (A) 5 %; MCHC 32.1 g/dL (31.0-37.0); MCV 90.3 fL (80.0-100.0); Mean Platelet Volume 6.9; Monocytes # (A) 0.4 k/uL (0-1.0); Monocytes % (A) 4 %; Neutrophils % (A) 90 %; RBC 4.23 m/uL (3.80-5.40); RDW 13.4 % (11.5-15.5); WBC 12.1 k/uL (3.8-10.6); WBC (Perox) 11.69
[2016-11-08] MEDS ORDERED: ENOXAPARIN 40 MG/0.4 ML SYRINGE SQ SCH (09:00)
[2016-11-08] MEDS ORDERED: oxyCODONE-APAP 5-325MG 1 EACH TAB PO PRN (10:43)
--- NOTE | 2016-11-08 11:55 | P.CONS ---
History of Present Illness - Reason for Consult Consult date: 11/07/16 Medical management Requesting physician: Cali Jha - Chief Complaint Abdominal pain - History of Present Illness Patient is a 26-year-old female with medical history significant for nausea and vomiting, history of sleeve gastrectomy as well as laparoscopic cholecystectomy. Patient was recently admitted to the hospital for right upper quadrant pain with elevated liver enzymes and underwent MRCP that was negative for choledocholithiasis. Patient also recently underwent elective EGD and balloon dilatation with evidence of mild esophagitis but no evidence of stricture. Patient continued with complaints of right upper quadrant and right lower quadrant pain and presented to the hospital for elective diagnostic laparoscopy by Dr. Jha on 11/07/2016 where she underwent lysis of adhesions. Postoperatively, patient was admitted for observation overnight for intractable abdominal pain. This morning, patient is sitting up in bed complaining of nausea and left-sided incisional pain. Patient currently rates pain 7 out of 10. Patient has been up ambulating to the bathroom and is urinating without difficulty. Patient reports flatus without bowel movement. Patient tolerated a clear liquid diet for breakfast. Denies chills, fevers, vomiting, shortness of breath, or chest pain. Patient is afebrile. WBC 12.1. Past Medical History Past Medical History: No Reported History Additional Past Medical History / Comment(s): NAUSEA AND VOMITING, RT FLANK PAIN, History of Any Multi-Drug Resistant Organisms: None Reported Past Surgical History: Bariatric Surgery, Cholecystectomy Additional Past Surgical History / Comment(s): right fallopian tube removed May 2015, SLEEVE GASTRECTOMY 03/26/16, Past Anesthesia/Blood Transfusion Reactions: Postoperative Nausea & Vomiting ( PONV) Past Psychological History: Panic Disorder Additional Psychological History / Comment(s): PASSED OUT AT WORK AND HAD PANIC ATTACK. one time issue per pt. no problems since Smoking Status: Never smoker Past Alcohol Use History: None Reported Past Drug Use History: None Reported - Past Family History Sister(s) Family Medical History: Deep Vein Thrombosis (DVT) Mother Family Medical History: Hyperlipidemia, Hypertension Additional Family Medical History / Comment(s): HEART PROBLEMS, IRREG RYTHM Father Family Medical History: Hyperlipidemia, Hypertension Medications and Allergies Home Medications Medication Instructions Recorded Confirmed Type Multivitamin [Multivitamins Adult 1 tab PO BID 08/06/16 11/08/16 History Gummies] Acetaminophen Tab [Tylenol Tab] 1,000 mg PO Q6HR PRN 11/04/16 11/08/16 History Allergies Allergy/AdvReac Type Severity Reaction Status Date / Time amoxicillin [Amoxicillin] AdvReac yeast Verified 11/07/16 14:02 infection Physical Exam Vitals: Vital Signs Temp Pulse Resp BP Pulse Ox 11/08/16 08:15 97.3 F L 51 L 16 115/72 100 11/07/16 23:41 98 F 67 16 120/60 97 11/07/16 21:00 98.2 F 62 18 108/52 97 11/07/16 19:30 61 18 114/55 97 11/07/16 19:00 92 18 111/65 96 11/07/16 18:30 97 18 119/60 96 11/07/16 18:05 76 20 118/75 95 11/07/16 17:50 111 H 20 110/78 95 11/07/16 17:35 98.2 F 116 H 21 129/78 91 L 11/07/16 16:58 85 18 119/67 97 11/07/16 16:30 118 H 18 137/61 97 11/07/16 16:00 118 H 18 143/90 98 11/07/16 15:36 133 H 18 152/87 98 11/07/16 15:21 132 H 18 141/88 97 11/07/16 15:06 147 H 18 148/99 99 11/07/16 15:05 142 H 16 152/87 97 11/07/16 14:45 84 18 155/87 100 11/07/16 14:30 107 H 16 146/85 100 11/07/16 14:15 79 18 140/83 100 11/07/16 14:00 89 16 142/87 100 11/07/16 13:56 96.8 F L 76 18 143/85 100 11/07/16 11:41 98.1 F 102 H 16 139/94 99 Intake and Output 11/07/16 11/08/16 11/08/16 22:59 06:59 14:59 Intake Total 1999 190 Output Total 50 Balance 1999 140 Intake: IV 1999 Oral 190 Output: Emesis 50 Other: Voiding Method Toilet # Voids 2 # Emeses 1 Weight 98.43 kg GENERAL: Pt awake and alert, well-nourished, and in no acute distress. HEAD: Atraumatic, normocephalic. EYES: Pupils equal, round, and reactive to light, extraocular movements intact, sclera anicteric, conjunctiva are normal. ENT: Oropharynx clear without exudates. Moist mucous membranes. NECK:Normal range of motion, supple without lymphadenopathy or JVD. LUNGS: Breath sounds clear to auscultation bilaterally. No wheezes, rales, or rhonchi. HEART: Heart S1, S2, no S3 or S4. Regular rate and rhythm. No murmurs, rubs or gallops. ABDOMEN: Soft, moderate incisional tenderness, nondistended, normoactive bowel sounds. No guarding, no rebound. No masses or organomegaly appreciated. Laparoscopic surgical incisions dry and intact. No erythema or drainage. EXTREMITIES: 2+ peripheral pulses. No edema. No calf tenderness. NEUROLOGICAL: Pt oriented x 3. No focal deficits noted. Strength and sensation grossly intact. PSYCH: Normal mood, normal affect. SKIN: Warm, dry, intact. Normal turgor. No rashes or lesions. Results CBC & Chem 7: 11/08/16 06:29 Labs: Abnormal Lab Results - Last 24 Hours (Table) 11/08/16 Range/Units 06:29 WBC 12.1 H (3.8-10.6) k/uL Neutrophils # 11.0 H (1.3-7.7) k/uL Lymphocytes # 0.7 L (1.0-4.8) k/uL Assessment and Plan Plan: Impression: 1. Right-sided abdominal pain and adhesions, present on admission, status post diagnostic laparoscopic with lysis of adhesions on 11/07/2016. 2. Leukocytosis, suspect reactive. 3. Acute abdominal pain postoperatively, improved. 4. History of laparoscopic sleeve gastrectomy. 5. History of laparoscopic cholecystectomy. Plan: Continue surgical management by surgical service. Continue current medications. We'll add Percocet 5 for moderate to severe pain every 4 hours as needed. Continue GI and DVT prophylaxis. Continue incentive spirometry 10 times an hour while awake. Encourage ambulation. Discharge per surgical service. Patient will follow-up with Dr. Allen in the outpatient setting once discharged. The above impression and plan have been discussed and directed by Dr. Allen. Epifanio CHAUDHARI acting as scribe for Dr. Allen.
[2016-11-08 12:24] VITALS: BP 103/58; PULSE 57; RESP 20; TEMP 98
--- NOTE | 2016-11-08 17:19 | P.PN ---
Subjective Principal diagnosis: adhesions Patient is a 26-year-old female with medical history significant for nausea and vomiting, history of sleeve gastrectomy as well as laparoscopic cholecystectomy. Patient was recently admitted to the hospital for right upper quadrant pain with elevated liver enzymes and underwent MRCP that was negative for choledocholithiasis. Patient also recently underwent elective EGD and balloon dilatation with evidence of mild esophagitis but no evidence of stricture. Patient continued with complaints of right upper quadrant and right lower quadrant pain and presented to the hospital for elective diagnostic laparoscopy on 11/07/2016 where she underwent lysis of adhesions. Postoperatively, patient was admitted for observation overnight for intractable abdominal pain. This morning, patient is sitting up in bed complaining of nausea and left-sided incisional pain. Patient currently rates pain 7 out of 10. Patient has been up ambulating to the bathroom and is urinating without difficulty. Patient reports flatus without bowel movement. Patient tolerated a clear liquid diet for breakfast. Denies chills, fevers, vomiting, shortness of breath, or chest pain. Patient is afebrile. WBC 12.1. Objective - Vital Signs Vital signs: Vital Signs Temp 98.0 F 11/08/16 11:40 Pulse 57 L 11/08/16 11:40 Resp 20 11/08/16 11:40 BP 103/58 11/08/16 11:40 Pulse Ox 96 11/08/16 11:40 Intake & Output 11/07/16 11/08/16 11/08/16 18:59 06:59 18:59 Intake Total 3150 690 Output Total 5 50 Balance 3145 640 Weight 98.43 kg Intake: IV 3150 Oral 690 Output: Emesis 50 Estimated Blood Loss 5 Other: Voiding Method Toilet # Voids 2 2 # Emeses 1 - Exam GENERAL: Pt awake and alert, well-nourished, and in no acute distress. LUNGS: Breath sounds clear to auscultation bilaterally. No wheezes, rales, or rhonchi. HEART: Heart S1, S2, no S3 or S4. Regular rate and rhythm. No murmurs, rubs or gallops. ABDOMEN: Soft, moderate incisional tenderness, nondistended, normoactive bowel sounds. No guarding, no rebound. No masses or organomegaly appreciated. Laparoscopic surgical incisions dry and intact. No erythema or drainage. EXTREMITIES: 2+ peripheral pulses. No edema. No calf tenderness. NEUROLOGICAL: Pt oriented x 3. - Labs CBC & Chem 7: 11/08/16 06:29 Labs: Abnormal Lab Results - Last 24 Hours (Table) 11/08/16 Range/Units 06:29 WBC 12.1 H (3.8-10.6) k/uL Neutrophils # 11.0 H (1.3-7.7) k/uL Lymphocytes # 0.7 L (1.0-4.8) k/uL Assessment and Plan Plan: Impression: 1. Right-sided abdominal pain and adhesions, present on admission, status post diagnostic laparoscopic with lysis of adhesions on 11/07/2016. 2. Leukocytosis, suspect reactive. 3. Acute abdominal pain postoperatively, improved. 4. History of laparoscopic sleeve gastrectomy. 5. History of laparoscopic cholecystectomy. Plan: Continue to monitor patient. Continue current medications. Continue supportive treatment and pain management. Advance diet as tolerated. Continue GI and DVT prophylaxis. Continue incentive spirometry 10 times an hour while awake. Encourage ambulation. Possible discharge later this afternoon. The above impression and plan have been discussed and directed by Dr. Jha. Epifanio CHAUDHARI acting as scribe for Dr. Jha.
--- NOTE | 2016-11-08 17:22 | P.DS ---
Providers Date of admission: 11/08/16 01:50 Expected date of discharge: 11/08/16 Attending physician: Cali Jha Consults: 11/07/16 16:24 Consult Physician Routine Consulting Provider: Arley Gaspar Consult Reason/Comments: Medical management Do you want consulting provider notified?: Yes Primary care physician: Arley Gaspar [facility] Hospital Course: Patient is a 26-year-old female with medical history significant for nausea and vomiting, history of sleeve gastrectomy as well as laparoscopic cholecystectomy. Patient was recently admitted to the hospital for right upper quadrant pain with elevated liver enzymes and underwent MRCP that was negative for choledocholithiasis. Patient also recently underwent elective EGD and balloon dilatation with evidence of mild esophagitis but no evidence of stricture. Patient continued with complaints of right upper quadrant and right lower quadrant pain and presented to the hospital for elective diagnostic laparoscopy on 11/07/2016 where she underwent lysis of adhesions. Postoperatively, patient was admitted for observation overnight for intractable abdominal pain. Patient improved significantly overnight with supportive care and pain management. Patient was deemed stable for discharge to home with close follow-up in the outpatient setting. Discharge diagnoses: Right-sided abdominal pain and adhesions status post diagnostic laparoscopic with lysis of adhesions. The above impression and plan have been discussed and directed by Dr. Jha. Epifanio CHAUDHARI acting as scribe for Dr. Jha. Procedures: diagnostic laparoscopic status post lysis of adhesions. Patient Condition at Discharge: Good Plan - Discharge Summary New Discharge Prescriptions: Docusate [Colace] 100 mg PO BID #20 capsule HYDROcodone/APAP 7.5-325MG [Nixa 7.5] 1 each PO Q4H PRN #60 tab PRN Reason: Pain Discharge Medication List Multivitamin [Multivitamins Adult Gummies] 1 tab PO BID 08/06/16 [History] Acetaminophen Tab [Tylenol Tab] 1,000 mg PO Q6HR PRN 11/04/16 [History] HYDROcodone/APAP 5-325MG [Nixa 5-325] 1 tab PO Q6HR PRN #10 tab 11/04/16 [Rx] Ondansetron Odt [Zofran Odt] 4 mg PO Q8HR PRN #12 tab 11/04/16 [Rx] Docusate [Colace] 100 mg PO BID #20 capsule 11/07/16 [Rx] HYDROcodone/APAP 7.5-325MG [Nixa 7.5] 1 each PO Q4H PRN #60 tab 11/07/16 [Rx] Follow up Appointment(s)/Referral(s): [facility] [NON-STAFF] - 1 Week Arley Gaspar MD [Primary Care Provider] - 1 Week Patient Instructions/Handouts: Lysis of Abdominal Adhesions (DC) Activity/Diet/Wound Care/Special Instructions: HOME TODAY RECHECK IN ONE WEEK WITH DR GASPAR AND ONE WEEK WITH DR JHA, CALL SOONER FOR PROBLEMS OR CONCERNS IE..FEVER, CHILLS, PAIN NOT RELIEVED BY MEDICATION, NOT ABLE TO TOLERATE FLUID/LIGHT DIET, PAIN OR SWELLING IN LOWER EXTREMITIES, PAINFUL URINATION OR ANY OTHER PROBLEMS OR CONCERNS. NO HEAVY LIFTING, PUSHING , OR PULLING OF OBJECTS GREATER THAN 5#. NO DRIVING WHILE TAKING NARCOTICS. SHOWER DAILY AND PAT INCISIONS DRY, NO TUB BATHS, SWIMMING POOLS, OR HOT TUBS. Discharge Disposition: HOME SELF-CARE
== END 2016-11-08 14:30 | disposition home or self-care (01) ==
LOC: OR 11:13 → 6PED 14:01 → OR 11-08 01:50 → 6PED 11-08 01:50
PROVIDERS: ADMIT Surgery; ATTEND Surgery
DX: R10.11 Right upper quadrant pain (principal); R10.31 Right lower quadrant pain; K66.0 Peritoneal adhesions (postprocedural) (postinfection); D72.829 Elevated white blood cell count, unspecified; G89.18 Other acute postprocedural pain; R11.0 Nausea; Z90.49 Acquired absence of other specified parts of digestive tract; Z82.49 Family history of ischemic heart disease and other diseases of the circulatory system; Z88.0 Allergy status to penicillin; Z98.84 Bariatric surgery status
CPT/HCPCS: 81025; 85025; 49329; G0378; J2250; J2270; J1100; J2710; J2175; J2405 ×2; J2001; J1650; J3010; J1885 ×2; J1170 ×2; J0690; J0330; J2704; 96375

== ENCOUNTER → 2016-11-12 | Outpatient (CLI) | payer BC ==
[2016-11-12 13:19] VITALS: BP 141/64; PULSE 74; RESP 16; TEMP 98.1; BMI 37.9
--- NOTE | 2016-11-12 15:38 | P.HPBAR ---
Bariatric H&P - History & Physicial H&P Date: 11/12/16 History & Physicial: Visit/CC: Sleeve follow-up Patient initial contact: Initial weight: 138.062 kg Initial weight in pounds: 304.37 Height: 5 ft 3 in Initial BMI: 53.8 Last weight: Current weight: 97.097 kg Current weight in pounds: 214.00 Current BMI: 37.9 [place] body weight (based on NIH guidelines): 52.163 kg Excess body weight loss: 47.7% The patient is a 26 year-old F who presents for Bariatric Assessment. Patient presents today for follow-up. She underwent recent diagnostic laparoscopy with lysis of adhesion a week ago. She states her right-sided abdominal pain has resolved. Some minimal left-sided pain due to her incision sites for the trochars. Past Medical History Past Medical History: No Reported History Additional Past Medical History / Comment(s): NAUSEA AND VOMITING, RT FLANK PAIN, History of Any Multi-Drug Resistant Organisms: None Reported Past Surgical History: Bariatric Surgery, Cholecystectomy Additional Past Surgical History / Comment(s): right fallopian tube removed May 2015, SLEEVE GASTRECTOMY 03/26/16, Past Anesthesia/Blood Transfusion Reactions: Postoperative Nausea & Vomiting ( PONV) Past Psychological History: Panic Disorder Additional Psychological History / Comment(s): PASSED OUT AT WORK AND HAD PANIC ATTACK. one time issue per pt. no problems since Smoking Status: Never smoker Past Alcohol Use History: None Reported Past Drug Use History: None Reported - Past Family History Sister(s) Family Medical History: Deep Vein Thrombosis (DVT) Mother Family Medical History: Hyperlipidemia, Hypertension Additional Family Medical History / Comment(s): HEART PROBLEMS, IRREG RYTHM Father Family Medical History: Hyperlipidemia, Hypertension Surgical - Exam Vital Signs Temp Pulse Resp BP 98.1 F 74 16 141/64 11/12/16 13:16 11/12/16 13:16 11/12/16 13:16 11/12/16 13:16 - General well developed, no distress - Eyes PERRL - ENT normal pinna - Neck no masses - Cardiovascular Rhythm: regular - Abdomen Abdomen: soft, non tender Bariatric Assessment & Plan Plan: Status post diagnostic laparoscopy with lysis of adhesions. Patient is one- week postop. Her right-sided abdominal pain has resolved. She'll follow-up with the bariatric clinic in 1 month. Bariatric Checklist Checklist: Plan: Checklist: EGD: 1. Hiatal hernia: 2. H. Pylori: HgbA1c: Vitamin D: Smoking: Never smoker Primary care physician referral: Dr. Allen Psychiatry clearance: Cardiology clearance: Sleep study: Diet journal: VTE risk score: VTE risk level: Rehab needs at discharge:
== END ==
LOC: BARWHC3 12:58
PROVIDERS: ATTEND Surgery
DX: Z48.815 Encounter for surgical aftercare following surgery on the digestive system (principal); Z98.84 Bariatric surgery status
CPT/HCPCS: 99211

== ENCOUNTER 2016-11-14 02:18 | Emergency (ER) | payer BC ==
[2016-11-14] MEDS ORDERED: ONDANSETRON 4 MG/2 ML VIAL IVP STA (02:38)
[2016-11-14] MEDS ORDERED: SODIUM CHLORIDE 0.9% 1,000 ML IV STA (02:38)
[2016-11-14] MEDS ORDERED: HYDROmorphone 1 MG/ML 1 ML SYRINGE IVP STA (02:38)
[2016-11-14] MEDS ORDERED: RX INFO: IV CONTRAST WAS GIVEN 1 EACH MISC MISCELLANE PRN (03:34)
--- NOTE | 2016-11-14 03:36 | ED ---
General Adult HPI - General Source: patient, RN notes reviewed Mode of arrival: ambulatory Limitations: no limitations <Aaron Vaca - Last Filed: 11/14/16 03:36> <Carlos Marcano - Last Filed: 11/14/16 05:48> - General Chief complaint: Abdominal Pain Stated complaint: constipation post surgery Time Seen by Provider: 11/14/16 02:31 - History of Present Illness Initial comments: Patient 26-year-old female status post laparoscopic abdominal surgery times one week, who presents emergency room today with chief complaint of increased abdominal pain with bouts constipation. Patient does admit that a bowel movement since surgery. States she's tried stool softeners. Patient does admit to increased pressure in the lower abdomen. Patient mitts that she began having symptoms of nausea vomiting this afternoon. States she's had decreased flatulence. Patient denies any other complaints or symptoms. Patient denies any recent fever, chills, shortness of breath, chest pain, back pain, numbness or tingling, dysuria or hematuria, constipation or diarrhea, headaches or visual changes, or any other complaints. (Aaron Vaca) - Related Data Home Medications Medication Instructions Recorded Confirmed Multivitamin [Multivitamins Adult 1 tab PO BID 08/06/16 11/08/16 Gummies] Acetaminophen Tab [Tylenol Tab] 1,000 mg PO Q6HR PRN 11/04/16 11/08/16 Previous Rx's Medication Instructions Recorded HYDROcodone/APAP 5-325MG [Center 1 tab PO Q6HR PRN #10 tab 11/04/16 5-325] Ondansetron Odt [Zofran Odt] 4 mg PO Q8HR PRN #12 tab 11/04/16 Docusate [Colace] 100 mg PO BID #20 capsule 11/07/16 HYDROcodone/APAP 7.5-325MG [Center 1 each PO Q4H PRN #60 tab 11/07/16 7.5] Allergies Allergy/AdvReac Type Severity Reaction Status Date / Time amoxicillin [Amoxicillin] AdvReac yeast Verified 11/14/16 02:29 infection Review of Systems ROS Other: All systems not noted in ROS Statement are negative. <Aaron Vaca - Last Filed: 11/14/16 03:36> ROS Other: All systems not noted in ROS Statement are negative. <Carlos Marcano - Last Filed: 11/14/16 05:48> ROS Statement: Those systems with pertinent positive or pertinent negative responses have been documented in the HPI. Past Medical History Past Medical History: No Reported History Additional Past Medical History / Comment(s): NAUSEA AND VOMITING, RT FLANK PAIN, History of Any Multi-Drug Resistant Organisms: None Reported Past Surgical History: Bariatric Surgery, Cholecystectomy Additional Past Surgical History / Comment(s): right fallopian tube removed May 2015, SLEEVE GASTRECTOMY 03/26/16, Past Anesthesia/Blood Transfusion Reactions: Postoperative Nausea & Vomiting ( PONV) Past Psychological History: Panic Disorder Additional Psychological History / Comment(s): PASSED OUT AT WORK AND HAD PANIC ATTACK. one time issue per pt. no problems since Smoking Status: Never smoker Past Alcohol Use History: None Reported Past Drug Use History: None Reported - Past Family History Sister(s) Family Medical History: Deep Vein Thrombosis (DVT) Mother Family Medical History: Hyperlipidemia, Hypertension Additional Family Medical History / Comment(s): HEART PROBLEMS, IRREG RYTHM Father Family Medical History: Hyperlipidemia, Hypertension <Aaron Vaca - Last Filed: 11/14/16 03:36> General Exam Limitations: no limitations <Aaron Vaca - Last Filed: 11/14/16 03:36> <Carlos Marcano - Last Filed: 11/14/16 05:48> - General Exam Comments Initial Comments: General: The patient is awake and alert, in no distress, and does not appear acutely ill. Eye: Pupils are equal, round and reactive to light, extra-ocular movements are intact. No nystagmus. There is normal conjunctiva bilaterally. No signs of icterus. Ears, nose, mouth and throat: There are moist mucous membranes and no oral lesions. Neck: The neck is supple, there is no tenderness or JVD. Cardiovascular: There is a regular rate and rhythm. No murmur, rub or gallop is appreciated. Respiratory: Lungs are clear to auscultation, respirations are non-labored, breath sounds are equal. No wheezes, stridor, rales, or rhonchi. Gastrointestinal: Normal appearance abdomen. Normal bowel sounds. Surgical incisions healing well 3 small incisions on the left side of the abdomen. Patient does have tenderness both left and right lower quadrant. Greater on the left side. No rebound tenderness. No guarding. Musculoskeletal: Normal ROM, no tenderness. Strength 5/5. Sensation intact. Pulses equal bilaterally 2+. Neurological: A&O x 3. CN II-XII intact, There are no obvious motor or sensory deficits. Coordination appears grossly intact. Speech is normal. Skin: Skin is warm and dry and no rashes or lesions are noted. Psychiatric: Cooperative, appropriate mood & affect, normal judgment. (Aaron Vaca) Course <Aaron Vaca - Last Filed: 11/14/16 03:36> <Carlos Marcano - Last Filed: 11/14/16 05:48> Vital Signs 11/14/16 11/14/16 02:27 04:49 Temperature 97.6 F 97.5 F L Pulse Rate 105 H 93 Respiratory 22 18 Rate Blood Pressure 137/98 116/68 O2 Sat by Pulse 99 99 Oximetry - Reevaluation(s) Reevaluation #1: 11/14/16 03:36 Case discussed signed out physician at this time. (Aaron Vaca) Medical Decision Making - Lab Data Result diagrams: 11/14/16 04:04 11/14/16 04:04 <Carlos Marcano - Last Filed: 11/14/16 05:48> - Lab Data Lab Results 11/14/16 11/14/16 11/14/16 Range/Units 03:08 03:08 04:04 WBC 7.3 (3.8-10.6) k/uL RBC 4.08 (3.80-5.40) m/uL Hgb 11.8 (11.4-16.0) gm/dL Hct 36.2 (34.0-46.0) % MCV 88.9 (80.0-100.0) fL MCH 29.0 (25.0-35.0) pg MCHC 32.6 (31.0-37.0) g/dL RDW 13.7 (11.5-15.5) % Plt Count 231 (150-450) k/uL Neutrophils % 69 % Lymphocytes % 20 % Monocytes % 6 % Eosinophils % 3 % Basophils % 0 % Neutrophils # 5.0 (1.3-7.7) k/uL Lymphocytes # 1.5 (1.0-4.8) k/uL Monocytes # 0.4 (0-1.0) k/uL Eosinophils # 0.2 (0-0.7) k/uL Basophils # 0.0 (0-0.2) k/uL Sodium (137-145) mmol/L Potassium (3.5-5.1) mmol/L Chloride (98-107) mmol/L Carbon Dioxide (22-30) mmol/L Anion Gap mmol/L BUN (7-17) mg/dL Creatinine (0.52-1.04) mg/dL Est GFR (MDRD) Af Amer (>60 ml/min/1.73 sqM) Est GFR (MDRD) Non-Af (>60 ml/min/1.73 sqM) Glucose (74-99) mg/dL Calcium (8.4-10.2) mg/dL Phosphorus (2.5-4.5) mg/dL Magnesium (1.6-2.3) mg/dL Total Bilirubin (0.2-1.3) mg/dL AST (14-36) U/L ALT (9-52) U/L Alkaline Phosphatase (38-126) U/L Total Protein (6.3-8.2) g/dL Albumin (3.5-5.0) g/dL Lipase (23-300) U/L Urine Color Yellow Urine Appearance Clear (Clear) Urine pH 7.0 (5.0-8.0) Ur Specific [place] 1.011 (1.001-1.035) Urine Protein Negative (Negative) Urine Glucose (UA) Negative (Negative) Urine Ketones Negative (Negative) Urine Blood Negative (Negative) Urine Nitrite Negative (Negative) Urine Bilirubin Negative (Negative) Urine Urobilinogen <2.0 (<2.0) mg/dL Ur Leukocyte Esterase Negative (Negative) Urine RBC <1 (0-5) /hpf Urine WBC 1 (0-5) /hpf Ur Squamous Epith Cells 1 (0-4) /hpf Urine Mucus Rare H (None) /hpf Urine HCG, Qual Not Detected (Not Detectd) 11/14/16 Range/Units 04:04 WBC (3.8-10.6) k/uL RBC (3.80-5.40) m/uL Hgb (11.4-16.0) gm/dL Hct (34.0-46.0) % MCV (80.0-100.0) fL MCH (25.0-35.0) pg MCHC (31.0-37.0) g/dL RDW (11.5-15.5) % Plt Count (150-450) k/uL Neutrophils % % Lymphocytes % % Monocytes % % Eosinophils % % Basophils % % Neutrophils # (1.3-7.7) k/uL Lymphocytes # (1.0-4.8) k/uL Monocytes # (0-1.0) k/uL Eosinophils # (0-0.7) k/uL Basophils # (0-0.2) k/uL Sodium 140 (137-145) mmol/L Potassium 3.9 (3.5-5.1) mmol/L Chloride 110 H (98-107) mmol/L Carbon Dioxide 22 (22-30) mmol/L Anion Gap 8 mmol/L BUN 12 (7-17) mg/dL Creatinine 0.53 (0.52-1.04) mg/dL Est GFR (MDRD) Af Amer >60 (>60 ml/min/1.73 sqM) Est GFR (MDRD) Non-Af >60 (>60 ml/min/1.73 sqM) Glucose 91 (74-99) mg/dL Calcium 8.3 L (8.4-10.2) mg/dL Phosphorus 3.5 (2.5-4.5) mg/dL Magnesium 1.8 (1.6-2.3) mg/dL Total Bilirubin 0.8 (0.2-1.3) mg/dL AST 17 (14-36) U/L ALT 41 (9-52) U/L Alkaline Phosphatase 56 (38-126) U/L Total Protein 5.6 L (6.3-8.2) g/dL Albumin 3.0 L (3.5-5.0) g/dL Lipase 109 (23-300) U/L Urine Color Urine Appearance (Clear) Urine pH (5.0-8.0) Ur Specific [place] (1.001-1.035) Urine Protein (Negative) Urine Glucose (UA) (Negative) Urine Ketones (Negative) Urine Blood (Negative) Urine Nitrite (Negative) Urine Bilirubin (Negative) Urine Urobilinogen (<2.0) mg/dL Ur Leukocyte Esterase (Negative) Urine RBC (0-5) /hpf Urine WBC (0-5) /hpf Ur Squamous Epith Cells (0-4) /hpf Urine Mucus (None) /hpf Urine HCG, Qual (Not Detectd) Disposition <Aaron Vaca - Last Filed: 11/14/16 03:36> <Carlos Marcano - Last Filed: 11/14/16 05:48> Clinical Impression: Constipation, Abdominal pain Disposition: HOME SELF-CARE Condition: Good Instructions: Abdominal Pain (ED), Constipation (ED) Referrals: Arley Allen MD [Primary Care Provider] - 1-2 days
[2016-11-14 03:38] LABS: Appearance,Urine Clear (Clear); Bilirubin,Urine Negative (Negative); Glucose,Urine (UA) Negative (Negative); Ketones,Urine Negative (Negative); Leukocyte Esterase,Urine Negative (Negative); Mucus,Urine Rare /hpf; Nitrite,Urine Negative (Negative); Particle Count 1257; Protein,Urine Negative (Negative); RBC,Urine <1 /hpf (0-5); Specific Gravity,Urine 1.011 (1.001-1.035); Squamous Epithelial Cell,Urine 1 /hpf (0-4); UA Billing (MACRO vs. MICRO) CHEM; Urobilinogen,Urine <2.0 mg/dL (<2.0); WBC,Urine 1 /hpf (0-5)
--- NOTE | 2016-11-14 03:57 | XR ---
EXAM: XR Abdomen Complete, 2 or More Views CLINICAL HISTORY: Reason: pain TECHNIQUE: Frontal view of the abdomen/pelvis with upright and left side down decubitus views of the abdomen. COMPARISON: 10/09/16 plain films, 05/11/16 CT. FINDINGS: Intraperitoneal space: No free air or air-fluid levels are seen on the upright or decubitus views. Gastrointestinal tract: There is a mild-moderate amount of colonic stool, that is seen to the level of the rectum. There is again some air within the colon including splenic flexure, as on the prior radiographs. No dilated small bowel loops are seen. Organs: Prior cholecystectomy. Slightly elongated hepatic shadow is unchanged. Bones/joints: Stable. IMPRESSION: 1. No definite evidence of intestinal obstruction, nor perforation. 2. Mild to moderate colonic stool throughout.
[2016-11-14 04:16] LABS: Basophils % (A) 0 %; CH 28.9; CHCM 32.6; Eosinophils # (A) 0.2 k/uL (0-0.7); Eosinophils % (A) 3 %; HCT 36.2 % (34.0-46.0); HDW 2.52; HGB 11.8 gm/dL (11.4-16.0); Luc # (Auto) 0.14; Luc % (Auto) 2; Lymphocytes # (A) 1.5 k/uL (1.0-4.8); Lymphocytes % (A) 20 %; MCHC 32.6 g/dL (31.0-37.0); MCV 88.9 fL (80.0-100.0); Mean Platelet Volume 6.8; Monocytes # (A) 0.4 k/uL (0-1.0); Monocytes % (A) 6 %; Neutrophils % (A) 69 %; RBC 4.08 m/uL (3.80-5.40); RDW 13.7 % (11.5-15.5); WBC 7.3 k/uL (3.8-10.6); WBC (Perox) 7.35
--- NOTE | 2016-11-14 04:22 | CT ---
EXAM: CT Abdomen and Pelvis With Intravenous Contrast CLINICAL HISTORY: Reason: Pain TECHNIQUE: Axial computed tomography images of the abdomen and pelvis with intravenous contrast. CTDI is 41.20 mGy and DLP is 1430.60 mGy-cm This CT exam was performed using one or more of the following dose reduction techniques: automated exposure control, adjustment of the mA and/or kV according to patient size, and/or use of iterative reconstruction technique. COMPARISON: Current plain films, and recent 10/31/16 CT. FINDINGS: Lower thorax: No acute findings. ABDOMEN: Liver: Stable. No mass. Gallbladder and bile ducts: Prior cholecystectomy. No ductal dilation. Pancreas: Stable. No mass. No ductal dilation. Spleen: Stable. No splenomegaly. Adrenals: Stable. No mass. Kidneys and ureters: Stable. No solid mass. No stone or hydronephrosis. Stomach and bowel: Previous gastric bypass. Moderate amounts of colonic stool throughout, including within the rectum, and increased from prior. No evidence of intestinal obstruction is seen. Appendix: No findings to suggest acute appendicitis. PELVIS: Bladder: Unremarkable. No mass. Reproductive: Within physiologic normal limits. ABDOMEN and PELVIS: Intraperitoneal space: No free air. No significant fluid collection. Bones/joints: Stable. Small sclerotic focus within the left femoral neck is unchanged, statistically a bone island. There are mild degenerative changes including within the SI joints. Soft tissues: Stable. Vasculature: No abdominal aortic aneurysm. Lymph nodes: No adenopathy. IMPRESSION: 1. A somewhat greater degree of colonic stool is now present. 2. The balance of the exam is otherwise unchanged, without new acute intra-abdominal or pelvic abnormality seen, as above.
[2016-11-14 04:27] LABS: ALT 41 U/L (9-52); AST 17 U/L (14-36); Alkaline Phosphatase 56 U/L (38-126); Anion Gap 8 mmol/L; Blood Urea Nitrogen 12 mg/dL (7-17); Calcium 8.3 mg/dL (8.4-10.2); Carbon Dioxide 22 mmol/L (22-30); Chloride 110 mmol/L (98-107); Glucose 91 mg/dL (74-99); Magnesium 1.8 mg/dL (1.6-2.3); Non-African American GFR(MDRD) >60 (>60 ml/min/1.73 sqM); Phosphorous 3.5 mg/dL (2.5-4.5); Potassium 3.9 mmol/L (3.5-5.1); Sodium 140 mmol/L (137-145); Total Bilirubin 0.8 mg/dL (0.2-1.3); Total Protein 5.6 g/dL (6.3-8.2)
[2016-11-14] MEDS ORDERED: MAGNESIUM CITRATE 296 ML BOTTLE PO ONE (04:30)
[2016-11-14] MEDS ORDERED: GLYCERIN ADULT SUPPOSITORY 1 EACH RECTAL STA (04:30)
[2016-11-14] MEDS ORDERED: SENNOSIDES-DOCUSATE SODIUM 1 EACH TAB PO STA (04:30)
[2016-11-14 04:52] VITALS: BP 116/68; PULSE 93; RESP 18; TEMP 97.5
[2016-11-14] MEDS ORDERED: MAGNESIUM CITRATE 296 ML BOTTLE ONE (11:24)
== END 2016-11-14 05:56 | disposition home or self-care (01) ==
LOC: EC 02:18
DX: K59.00 Constipation, unspecified (principal); R10.9 Unspecified abdominal pain; Z79.899 Other long term (current) drug therapy; Z88.0 Allergy status to penicillin; Z98.84 Bariatric surgery status; Z90.49 Acquired absence of other specified parts of digestive tract
CPT/HCPCS: 36415; 80053; 83690; 83735; 84100; 85025; 81003; 81025; 87086; 74020; 74177; 99284; 96374; 96375; 96361 ×2; J2405; J1170; Q9967; 74000; 96372

== ENCOUNTER 2016-11-14 12:19 | Emergency (ER) | payer BC ==
--- NOTE | 2016-11-14 13:02 | ED ---
Abdominal Pain HPI - General Chief Complaint: Abdominal Pain Stated Complaint: Bowel Obstruction Time Seen by Provider: 11/14/16 12:51 Source: patient, RN notes reviewed Mode of arrival: ambulatory Limitations: no limitations - History of Present Illness Initial Comments: 26-year-old female presents emergency Department chief complaint abdominal pain , constipation. Patient states that she had slurred her surgery last week by Dr. Jha. Patient had multiple surgeries in the past including gastric sleeve, cholecystectomy. Patient was found to have adhesions last week. Patient states she has not had a bowel movement since was seen in emergency department by had lab work, CT which she'll constipation. Patient called bariatric services in which they recommended her trying enema. She states she tried which she makes symptoms worse. Patient denies any fevers or chills. Denies any nausea vomiting. Patient has been taking pain medication secondary to pain. Patient states that she did not talk to Dr. Jha this time. - Related Data Home Medications Medication Instructions Recorded Confirmed Multivit with Calcium,Iron,Min 1 tab PO DAILY 11/14/16 11/14/16 [Women's Multivitamin] Allergies Allergy/AdvReac Type Severity Reaction Status Date / Time amoxicillin [Amoxicillin] AdvReac yeast Verified 11/14/16 13:25 infection Review of Systems ROS Statement: Those systems with pertinent positive or pertinent negative responses have been documented in the HPI. ROS Other: All systems not noted in ROS Statement are negative. Past Medical History Past Medical History: No Reported History Additional Past Medical History / Comment(s): NAUSEA AND VOMITING, RT FLANK PAIN, History of Any Multi-Drug Resistant Organisms: None Reported Past Surgical History: Bariatric Surgery, Cholecystectomy Additional Past Surgical History / Comment(s): right fallopian tube removed May 2015, SLEEVE GASTRECTOMY 03/26/16, Past Anesthesia/Blood Transfusion Reactions: Postoperative Nausea & Vomiting ( PONV) Past Psychological History: Panic Disorder Additional Psychological History / Comment(s): PASSED OUT AT WORK AND HAD PANIC ATTACK. one time issue per pt. no problems since Smoking Status: Never smoker Past Alcohol Use History: None Reported Past Drug Use History: None Reported - Past Family History Sister(s) Family Medical History: Deep Vein Thrombosis (DVT) Mother Family Medical History: Hyperlipidemia, Hypertension Additional Family Medical History / Comment(s): HEART PROBLEMS, IRREG RYTHM Father Family Medical History: Hyperlipidemia, Hypertension General Exam Limitations: no limitations General appearance: alert, in no apparent distress Respiratory exam: Present: normal lung sounds bilaterally. Absent: respiratory distress, wheezes, rales, rhonchi, stridor Cardiovascular Exam: Present: regular rate, normal rhythm, normal heart sounds. Absent: systolic murmur, diastolic murmur, rubs, gallop, clicks GI/Abdominal exam: Present: soft, tenderness (Diffuse mild, moderate left lower quadrant tenderness), normal bowel sounds. Absent: distended, guarding, rebound , rigid Back exam: Absent: CVA tenderness (R), CVA tenderness (L) Neurological exam: Present: alert, oriented X3, CN II-XII intact Skin exam: Present: warm, dry, intact, normal color. Absent: rash Course Vital Signs 11/14/16 12:38 Temperature 98.0 F Pulse Rate 112 H Respiratory 20 Rate Blood Pressure 130/61 O2 Sat by Pulse 100 Oximetry - Reevaluation(s) Reevaluation #1: 11/14/16 15:24 Patient had soapsuds, and molasses enema patient had large bowel movement. Patient states pains approved but she is nauseated. Patient be given Reglan at this time. Patient be discharged with follow-up with Dr. Jha. Medical Decision Making - Medical Decision Making 18-year-old female presented for constipation or abdominal pain. Patient had enema here had large bowel movement pain has improved. Patient be discharged at this time with follow-up with Dr. Jha. Disposition Clinical Impression: Constipation, Abdominal pain Disposition: HOME SELF-CARE Condition: Stable Instructions: Constipation (ED) Additional Instructions: Please return to the Emergency Department if symptoms worsen or any other concerns. Time of Disposition: 15:25
--- NOTE | 2016-11-14 13:37 | XR ---
EXAMINATION TYPE: XR KUB DATE OF EXAM: 11/14/2016 1:10 PM COMPARISON: NONE HISTORY: Pain TECHNIQUE: Single supine KUB image of the abdomen is obtained FINDINGS: Small bowel demonstrates no evidence for dilatation or air fluid levels. Gas and fecal material is seen in non-distended colon. No convincing evidence for pneumoperitoneum. No unusual calcifications. Contrast is identified within the urinary bladder. The lung bases are clear. The osseous structures are intact. IMPRESSION: 1. Overall nonobstructive bowel gas pattern.
[2016-11-14] MEDS: MAGNESIUM CITRATE 296 ML BOTTLE PO ONE ×2 (13:38→13:39)
[2016-11-14] MEDS ORDERED: METOCLOPRAMIDE 5 MG/ML 2 ML VIAL IM STA (15:24)
[2016-11-14 15:43] VITALS: BP 140/85; PULSE 66; RESP 16; TEMP 98.1
== END 2016-11-14 15:47 | disposition home or self-care (01) ==
LOC: EC 12:19
DX: K59.00 Constipation, unspecified (principal); R10.9 Unspecified abdominal pain; Z90.49 Acquired absence of other specified parts of digestive tract; Z98.84 Bariatric surgery status; Z88.0 Allergy status to penicillin
CPT/HCPCS: 99284; 96372; 74000; J2765

== ENCOUNTER → 2016-11-26 | Outpatient (CLI) | payer BC ==
[2016-11-26 14:49] VITALS: BP 147/80; PULSE 83; TEMP 98.4; BMI 37.9
--- NOTE | 2016-11-26 15:11 | P.HPBAR ---
Bariatric H&P - History & Physicial H&P Date: 11/26/16 History & Physicial: Visit/CC: post op follow up visit Patient initial contact: Initial weight: 138.062 kg Initial weight in pounds: 304.37 Height: 5 ft 3 in Initial BMI: 53.8 Last weight: Current weight: 97.069 kg Current weight in pounds: 214.00 Current BMI: 37.9 [place] body weight (based on NIH guidelines): 52.163 kg Excess body weight loss: 47.7% The patient is a 26 year-old F who presents for Bariatric Assessment. The patient transferred today for sleeve gastrectomy fall. He states her GERD and dysphagia symptoms are resolved. She has no abdominal pain today. She's had trouble with constipation. Past Medical History Past Medical History: No Reported History Additional Past Medical History / Comment(s): NAUSEA AND VOMITING, RT FLANK PAIN, History of Any Multi-Drug Resistant Organisms: None Reported Past Surgical History: Bariatric Surgery, Cholecystectomy Additional Past Surgical History / Comment(s): right fallopian tube removed May 2015, SLEEVE GASTRECTOMY 03/26/16, Past Anesthesia/Blood Transfusion Reactions: Postoperative Nausea & Vomiting ( PONV) Past Psychological History: Panic Disorder Additional Psychological History / Comment(s): PASSED OUT AT WORK AND HAD PANIC ATTACK. one time issue per pt. no problems since Smoking Status: Never smoker Past Alcohol Use History: None Reported Past Drug Use History: None Reported - Past Family History Sister(s) Family Medical History: Deep Vein Thrombosis (DVT) Mother Family Medical History: Hyperlipidemia, Hypertension Additional Family Medical History / Comment(s): HEART PROBLEMS, IRREG RYTHM Father Family Medical History: Hyperlipidemia, Hypertension Surgical - Exam Vital Signs Temp Pulse BP 98.4 F 83 147/80 11/26/16 14:46 11/26/16 14:46 11/26/16 14:46 - General well developed, no distress - Eyes PERRL - ENT normal pinna - Neck no masses - Respiratory normal expansion - Cardiovascular Rhythm: regular - Abdomen Abdomen: soft, non tender Bariatric Assessment & Plan Plan: Status post sleeve yesterday. Patient's GERD symptoms are well-controlled. I recommended she try Benefiber 1 tablespoon by mouth twice a day for treatment of constipation.. She'll follow-up in one month. Bariatric Checklist Checklist: Plan: Checklist: EGD: 1. Hiatal hernia: 2. H. Pylori: HgbA1c: Vitamin D: Smoking: Never smoker Primary care physician referral: Dr. Allen Psychiatry clearance: Cardiology clearance: Sleep study: Diet journal: VTE risk score: VTE risk level: Rehab needs at discharge:
== END | disposition home or self-care (01) ==
LOC: BARWHC3 14:02
PROVIDERS: ATTEND Surgery
DX: Z09 Encounter for follow-up examination after completed treatment for conditions other than malignant neoplasm (principal); Z98.84 Bariatric surgery status
CPT/HCPCS: 99211

== ENCOUNTER 2016-12-06 16:58 | Emergency (ER) | payer BC ==
--- NOTE | 2016-12-06 17:53 | ED ---
General Adult HPI - General Source: patient, RN notes reviewed Mode of arrival: wheelchair Limitations: no limitations <Carlos Levy - Last Filed: 12/06/16 18:36> <Carlos Marcano - Last Filed: 12/06/16 22:20> - General Chief complaint: Dizziness Stated complaint: Lightheaded Time Seen by Provider: 12/06/16 17:15 - History of Present Illness Initial comments: This is a 26-year-old female presents to the emergency department stating that she felt as though she was going to pass out earlier. 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 Patient states associated with this she feels as though her heart is racing. Patient denies any history of similar symptoms. Patient denies any history of anxiety. Patient denies any chest pain or pressure. Patient denies any shortness of breath or difficulty breathing. Patient denies any headache patient denies any numbness or weakness. Patient denies any recent fever chills or cough. Patient denies abdominal pain patient denies nausea vomiting or diarrhea. Patient denies any dysuria hematuria urinary frequency. (Carlos Levy) - Related Data Home Medications Medication Instructions Recorded Confirmed Multivitamin [Multivitamins Adult 1 tab PO BID 12/06/16 12/06/16 Gummies] Allergies Allergy/AdvReac Type Severity Reaction Status Date / Time amoxicillin [Amoxicillin] AdvReac Yeast Verified 12/06/16 17:50 Infection Review of Systems ROS Other: All systems not noted in ROS Statement are negative. <Carlos Levy - Last Filed: 12/06/16 18:36> ROS Other: All systems not noted in ROS Statement are negative. <Carlos Marcano - Last Filed: 12/06/16 22:20> ROS Statement: Those systems with pertinent positive or pertinent negative responses have been documented in the HPI. Past Medical History Past Medical History: No Reported History Additional Past Medical History / Comment(s): NAUSEA AND VOMITING, RT FLANK PAIN, History of Any Multi-Drug Resistant Organisms: None Reported Past Surgical History: Bariatric Surgery, Cholecystectomy Additional Past Surgical History / Comment(s): right fallopian tube removed May 2015, SLEEVE GASTRECTOMY 03/26/16, Past Anesthesia/Blood Transfusion Reactions: Postoperative Nausea & Vomiting ( PONV) Past Psychological History: Panic Disorder Additional Psychological History / Comment(s): PASSED OUT AT WORK AND HAD PANIC ATTACK. one time issue per pt. no problems since Smoking Status: Never smoker Past Alcohol Use History: None Reported Past Drug Use History: None Reported - Past Family History Sister(s) Family Medical History: Deep Vein Thrombosis (DVT) Mother Family Medical History: Hyperlipidemia, Hypertension Additional Family Medical History / Comment(s): HEART PROBLEMS, IRREG RYTHM Father Family Medical History: Hyperlipidemia, Hypertension <Carlos Levy - Last Filed: 12/06/16 18:36> General Exam Limitations: no limitations <Carlos Levy - Last Filed: 12/06/16 18:36> <Carlos Marcano - Last Filed: 12/06/16 22:20> - General Exam Comments Initial Comments: GENERAL: Patient is well-developed and well-nourished. Patient is nontoxic and well- hydrated and is in mild distress. ENT: Neck is soft and supple. No significant lymphadenopathy is noted. Oropharynx is clear. Moist mucous membranes. Neck has full range of motion without eliciting any pain. EYES: The sclera were anicteric and conjunctiva were pink and moist. Extraocular movements were intact and pupils were equal round and reactive to light. Eyelids were unremarkable. PULMONARY: Unlabored respirations. Good breath sounds bilaterally. No audible rales rhonchi or wheezing was noted. CARDIOVASCULAR: There is a regular rate and rhythm without any murmurs gallops or rubs. ABDOMEN: Soft and nontender with normal bowel sounds. No palpable organomegaly was noted. There is no palpable pulsatile mass. SKIN: Skin is clear with no lesions or rashes and otherwise unremarkable. NEUROLOGIC: Patient is alert and oriented x3. Cranial nerves II through XII are grossly intact. Motor and sensory are also intact. Normal speech, volume and content. Symmetrical smile. MUSCULOSKELETAL: Normal extremities with adequate strength and full range of motion. No lower extremity swelling or edema. No calf tenderness. LYMPHATICS: No significant lymphadenopathy is noted PSYCHIATRIC: Patient is mildly anxious (Carlos Levy) Medical Decision Making - Lab Data Result diagrams: 12/06/16 17:54 12/06/16 17:54 <Carlos Levy - Last Filed: 12/06/16 18:36> - Lab Data Result diagrams: 12/06/16 17:54 12/06/16 17:54 <Carlos Marcano - Last Filed: 12/06/16 22:20> - Medical Decision Making EKG shows normal sinus rhythm at [address] interval is 140 QRS is 82 QT interval 396 QTC is 442. Patient's EKG shows no ST segment elevation or depression or T-wave abdomen is noted. Dr. Marcano dictating of the care of this patient at 6:30 (Carlos Levy) - Lab Data Lab Results 12/06/16 12/06/16 12/06/16 Range/Units 17:54 17:54 17:54 WBC 6.7 (3.8-10.6) k/uL RBC 4.22 (3.80-5.40) m/uL Hgb 12.1 (11.4-16.0) gm/dL Hct 37.3 (34.0-46.0) % MCV 88.5 (80.0-100.0) fL MCH 28.7 (25.0-35.0) pg MCHC 32.4 (31.0-37.0) g/dL RDW 13.8 (11.5-15.5) % Plt Count 249 (150-450) k/uL Neutrophils % 65 % Lymphocytes % 26 % Monocytes % 4 % Eosinophils % 3 % Basophils % 0 % Neutrophils # 4.3 (1.3-7.7) k/uL Lymphocytes # 1.7 (1.0-4.8) k/uL Monocytes # 0.3 (0-1.0) k/uL Eosinophils # 0.2 (0-0.7) k/uL Basophils # 0.0 (0-0.2) k/uL PT (9.0-12.0) sec INR (<1.1) APTT (22.0-30.0) sec D-Dimer (<0.60) mg/L FEU Sodium 141 (137-145) mmol/L Potassium 4.2 (3.5-5.1) mmol/L Chloride 109 H (98-107) mmol/L Carbon Dioxide 21 L (22-30) mmol/L Anion Gap 11 mmol/L BUN 18 H (7-17) mg/dL Creatinine 0.60 (0.52-1.04) mg/dL Est GFR (MDRD) Af Amer >60 (>60 ml/min/1.73 sqM) Est GFR (MDRD) Non-Af >60 (>60 ml/min/1.73 sqM) Glucose 79 (74-99) mg/dL Calcium 9.2 (8.4-10.2) mg/dL Phosphorus (2.5-4.5) mg/dL Magnesium 1.9 (1.6-2.3) mg/dL Total Bilirubin 0.5 (0.2-1.3) mg/dL AST 24 (14-36) U/L ALT 32 (9-52) U/L Alkaline Phosphatase 59 (38-126) U/L Total Creatine Kinase 60 (30-135) U/L CK-MB (CK-2) 0.4 (0.0-2.4) ng/mL CK-MB (CK-2) Rel Index 0.7 Troponin I <0.012 (0.000-0.034) ng/mL Total Protein 6.5 (6.3-8.2) g/dL Albumin 4.0 (3.5-5.0) g/dL Lipase (23-300) U/L TSH 0.836 (0.465-4.680) mIU/L Free T4 0.97 (0.78-2.19) ng/dL Urine Color Urine Appearance (Clear) Urine pH (5.0-8.0) Ur Specific [place] (1.001-1.035) Urine Protein (Negative) Urine Glucose (UA) (Negative) Urine Ketones (Negative) Urine Blood (Negative) Urine Nitrite (Negative) Urine Bilirubin (Negative) Urine Urobilinogen (<2.0) mg/dL Ur Leukocyte Esterase (Negative) Urine RBC (0-5) /hpf Urine WBC (0-5) /hpf Ur Squamous Epith Cells (0-4) /hpf Urine Mucus (None) /hpf Urine HCG, Qual (Not Detectd) Urine Opiates Screen (NotDetected) Ur Oxycodone Screen (NotDetected) Urine Methadone Screen (NotDetected) Ur Propoxyphene Screen (NotDetected) Ur Barbiturates Screen (NotDetected) U Tricyclic Antidepress (NotDetected) Ur Phencyclidine Scrn (NotDetected) Ur Amphetamines Screen (NotDetected) U Methamphetamines Scrn (NotDetected) U Benzodiazepines Scrn (NotDetected) Urine Cocaine Screen (NotDetected) U Marijuana (THC) Screen (NotDetected) 12/06/16 12/06/16 12/06/16 Range/Units 17:54 17:54 17:54 WBC (3.8-10.6) k/uL RBC (3.80-5.40) m/uL Hgb (11.4-16.0) gm/dL Hct (34.0-46.0) % MCV (80.0-100.0) fL MCH (25.0-35.0) pg MCHC (31.0-37.0) g/dL RDW (11.5-15.5) % Plt Count (150-450) k/uL Neutrophils % % Lymphocytes % % Monocytes % % Eosinophils % % Basophils % % Neutrophils # (1.3-7.7) k/uL Lymphocytes # (1.0-4.8) k/uL Monocytes # (0-1.0) k/uL Eosinophils # (0-0.7) k/uL Basophils # (0-0.2) k/uL PT 10.6 (9.0-12.0) sec INR 1.0 (<1.1) APTT 23.5 (22.0-30.0) sec D-Dimer 0.19 (<0.60) mg/L FEU Sodium (137-145) mmol/L Potassium (3.5-5.1) mmol/L Chloride (98-107) mmol/L Carbon Dioxide (22-30) mmol/L Anion Gap mmol/L BUN (7-17) mg/dL Creatinine (0.52-1.04) mg/dL Est GFR (MDRD) Af Amer (>60 ml/min/1.73 sqM) Est GFR (MDRD) Non-Af (>60 ml/min/1.73 sqM) Glucose (74-99) mg/dL Calcium (8.4-10.2) mg/dL Phosphorus 3.3 (2.5-4.5) mg/dL Magnesium (1.6-2.3) mg/dL Total Bilirubin (0.2-1.3) mg/dL AST (14-36) U/L ALT (9-52) U/L Alkaline Phosphatase (38-126) U/L Total Creatine Kinase (30-135) U/L CK-MB (CK-2) (0.0-2.4) ng/mL CK-MB (CK-2) Rel Index Troponin I (0.000-0.034) ng/mL Total Protein (6.3-8.2) g/dL Albumin (3.5-5.0) g/dL Lipase 155 (23-300) U/L TSH (0.465-4.680) mIU/L Free T4 (0.78-2.19) ng/dL Urine Color Urine Appearance (Clear) Urine pH (5.0-8.0) Ur Specific [place] (1.001-1.035) Urine Protein (Negative) Urine Glucose (UA) (Negative) Urine Ketones (Negative) Urine Blood (Negative) Urine Nitrite (Negative) Urine Bilirubin (Negative) Urine Urobilinogen (<2.0) mg/dL Ur Leukocyte Esterase (Negative) Urine RBC (0-5) /hpf Urine WBC (0-5) /hpf Ur Squamous Epith Cells (0-4) /hpf Urine Mucus (None) /hpf Urine HCG, Qual (Not Detectd) Urine Opiates Screen (NotDetected) Ur Oxycodone Screen (NotDetected) Urine Methadone Screen (NotDetected) Ur Propoxyphene Screen (NotDetected) Ur Barbiturates Screen (NotDetected) U Tricyclic Antidepress (NotDetected) Ur Phencyclidine Scrn (NotDetected) Ur Amphetamines Screen (NotDetected) U Methamphetamines Scrn (NotDetected) U Benzodiazepines Scrn (NotDetected) Urine Cocaine Screen (NotDetected) U Marijuana (THC) Screen (NotDetected) 12/06/16 12/06/16 Range/Units 17:54 18:05 WBC (3.8-10.6) k/uL RBC (3.80-5.40) m/uL Hgb (11.4-16.0) gm/dL Hct (34.0-46.0) % MCV (80.0-100.0) fL MCH (25.0-35.0) pg MCHC (31.0-37.0) g/dL RDW (11.5-15.5) % Plt Count (150-450) k/uL Neutrophils % % Lymphocytes % % Monocytes % % Eosinophils % % Basophils % % Neutrophils # (1.3-7.7) k/uL Lymphocytes # (1.0-4.8) k/uL Monocytes # (0-1.0) k/uL Eosinophils # (0-0.7) k/uL Basophils # (0-0.2) k/uL PT (9.0-12.0) sec INR (<1.1) APTT (22.0-30.0) sec D-Dimer (<0.60) mg/L FEU Sodium (137-145) mmol/L Potassium (3.5-5.1) mmol/L Chloride (98-107) mmol/L Carbon Dioxide (22-30) mmol/L Anion Gap mmol/L BUN (7-17) mg/dL Creatinine (0.52-1.04) mg/dL Est GFR (MDRD) Af Amer (>60 ml/min/1.73 sqM) Est GFR (MDRD) Non-Af (>60 ml/min/1.73 sqM) Glucose (74-99) mg/dL Calcium (8.4-10.2) mg/dL Phosphorus (2.5-4.5) mg/dL Magnesium (1.6-2.3) mg/dL Total Bilirubin (0.2-1.3) mg/dL AST (14-36) U/L ALT (9-52) U/L Alkaline Phosphatase (38-126) U/L Total Creatine Kinase (30-135) U/L CK-MB (CK-2) (0.0-2.4) ng/mL CK-MB (CK-2) Rel Index Troponin I (0.000-0.034) ng/mL Total Protein (6.3-8.2) g/dL Albumin (3.5-5.0) g/dL Lipase (23-300) U/L TSH (0.465-4.680) mIU/L Free T4 (0.78-2.19) ng/dL Urine Color Yellow Urine Appearance Clear (Clear) Urine pH 6.5 (5.0-8.0) Ur Specific [place] 1.027 (1.001-1.035) Urine Protein Trace H (Negative) Urine Glucose (UA) Negative (Negative) Urine Ketones 1+ H (Negative) Urine Blood Negative (Negative) Urine Nitrite Negative (Negative) Urine Bilirubin Negative (Negative) Urine Urobilinogen 3.0 (<2.0) mg/dL Ur Leukocyte Esterase Small H (Negative) Urine RBC 1 (0-5) /hpf Urine WBC 1 (0-5) /hpf Ur Squamous Epith Cells 2 (0-4) /hpf Urine Mucus Rare H (None) /hpf Urine HCG, Qual Not Detected (Not Detectd) Urine Opiates Screen Not Detected (NotDetected) Ur Oxycodone Screen Not Detected (NotDetected) Urine Methadone Screen Not Detected (NotDetected) Ur Propoxyphene Screen Not Detected (NotDetected) Ur Barbiturates Screen Not Detected (NotDetected) U Tricyclic Antidepress Not Detected (NotDetected) Ur Phencyclidine Scrn Not Detected (NotDetected) Ur Amphetamines Screen Not Detected (NotDetected) U Methamphetamines Scrn Not Detected (NotDetected) U Benzodiazepines Scrn Not Detected (NotDetected) Urine Cocaine Screen Not Detected (NotDetected) U Marijuana (THC) Screen Not Detected (NotDetected) Disposition <Carlos Levy - Last Filed: 12/06/16 18:36> <Carlos Marcano - Last Filed: 12/06/16 22:20> Clinical Impression: Dizziness Disposition: HOME SELF-CARE Condition: Good Instructions: Dizziness (ED) Referrals: Arley Allen MD [Primary Care Provider] - 1-2 days
[2016-12-06 18:01] LABS: Basophils % (A) 0 %; CH 29.3; CHCM 33.2; Eosinophils # (A) 0.2 k/uL (0-0.7); Eosinophils % (A) 3 %; HCT 37.3 % (34.0-46.0); HDW 2.49; HGB 12.1 gm/dL (11.4-16.0); Luc # (Auto) 0.18; Luc % (Auto) 3; Lymphocytes # (A) 1.7 k/uL (1.0-4.8); Lymphocytes % (A) 26 %; MCH 28.7 pg (25.0-35.0); MCHC 32.4 g/dL (31.0-37.0); MCV 88.5 fL (80.0-100.0); Mean Platelet Volume 6.8; Monocytes # (A) 0.3 k/uL (0-1.0); Monocytes % (A) 4 %; Neutrophils # (A) 4.3 k/uL (1.3-7.7); Neutrophils % (A) 65 %; RBC 4.22 m/uL (3.80-5.40); RDW 13.8 % (11.5-15.5); WBC 6.7 k/uL (3.8-10.6); WBC (Perox) 6.75
[2016-12-06 18:09] LABS: Partial Thromboplastin Time 23.5 sec (22.0-30.0); Prothrombin Time 10.6 sec (9.0-12.0)
[2016-12-06 18:17] LABS: ALT 32 U/L (9-52); AST 24 U/L (14-36); Alkaline Phosphatase 59 U/L (38-126); Anion Gap 11 mmol/L; Blood Urea Nitrogen 18 mg/dL (7-17); Calcium 9.2 mg/dL (8.4-10.2); Carbon Dioxide 21 mmol/L (22-30); Chloride 109 mmol/L (98-107); Glucose 79 mg/dL (74-99); Magnesium 1.9 mg/dL (1.6-2.3); Non-African American GFR(MDRD) >60 (>60 ml/min/1.73 sqM); Potassium 4.2 mmol/L (3.5-5.1); Sodium 141 mmol/L (137-145); Total Bilirubin 0.5 mg/dL (0.2-1.3); Total Protein 6.5 g/dL (6.3-8.2)
--- NOTE | 2016-12-06 18:25 | XR ---
EXAMINATION TYPE: XR chest 2V DATE OF EXAM: 12/06/2016 6:21 PM COMPARISON: 07/13/2014 HISTORY: Dizziness TECHNIQUE: Frontal and lateral views of the chest are obtained. FINDINGS: Heart and mediastinum are normal. Lungs are clear. Diaphragm is normal. There are chest le ads. Bony thorax is intact. IMPRESSION: Normal chest. No change.
[2016-12-06 18:36] LABS: Creatine Kinase 60 U/L (30-135)
[2016-12-06 18:38] LABS: Appearance,Urine Clear (Clear); Bilirubin,Urine Negative (Negative); Glucose,Urine (UA) Negative (Negative); Ketones,Urine 1+ (Negative); Leukocyte Esterase,Urine Small (Negative); Mucus,Urine Rare /hpf; Nitrite,Urine Negative (Negative); PH, Urine 6.5 (5.0-8.0); Particle Count 3709; Protein,Urine Trace (Negative); RBC,Urine 1 /hpf (0-5); Specific Gravity,Urine 1.027 (1.001-1.035); Squamous Epithelial Cell,Urine 2 /hpf (0-4); UA Billing (MACRO vs. MICRO) MICRO; WBC,Urine 1 /hpf (0-5)
[2016-12-06] MEDS ORDERED: ONDANSETRON 4 MG/2 ML VIAL IVP STA (18:48)
[2016-12-06] MEDS ORDERED: SODIUM CHLORIDE 0.9% 1,000 ML IV STA ×2 (18:48)
[2016-12-06] MEDS ORDERED: SODIUM CHLORIDE 0.9% 500 ML IV STA (18:48)
[2016-12-06 18:50] LABS: Creatine Kinase MB 0.4 ng/mL (0.0-2.4); Troponin I <0.012 ng/mL (0.000-0.034)
[2016-12-06 19:13] LABS: Phosphorous 3.3 mg/dL (2.5-4.5)
[2016-12-06 19:29] VITALS: RESP 18
[2016-12-06] MEDS ORDERED: DIAZEPAM 5 MG/ML 2 ML SYRINGE IVP STA (19:50)
[2016-12-06] MEDS ORDERED: THIAMINE 100 MG/ML 2 ML VIAL IVP STA (19:50)
[2016-12-06] MEDS ORDERED: diphenhydrAMINE 50 MG/ML 1 ML VIAL IVP STA (21:17)
[2016-12-06] MEDS ORDERED: MORPHINE SULFATE 2 MG/ML SYRINGE IVP ONE (21:17)
[2016-12-06 22:39] VITALS: BP 118/67; PULSE 65; TEMP 97.8
== END 2016-12-06 22:48 | disposition home or self-care (01) ==
LOC: EC 16:58
DX: R42 Dizziness and giddiness (principal); R00.2 Palpitations; Z79.899 Other long term (current) drug therapy; Z88.0 Allergy status to penicillin
CPT/HCPCS: 36415; 93005; 85379; 84439; 80053; 82550; 82553; 83690; 83735; 84100; 84443; 84484; 85025; 85610; 85730; 81001; 81025; 80306; 71020; 99284; 96374; 96375 ×4; 96361 ×3; J1200; J3411; J3360; J2405; J2270

== ENCOUNTER 2016-12-16 16:47 | Emergency (ER) | payer BC, OTHER ==
[2016-12-16 17:00] VITALS: RESP 20
[2016-12-16] MEDS ORDERED: ONDANSETRON 4 MG ODT STARTER PACK 2 TAB BTL PO STA (18:32)
[2016-12-16] MEDS ORDERED: ACETAMINOPHEN TAB 500 MG TAB PO STA (18:32)
--- NOTE | 2016-12-16 19:07 | CT ---
EXAMINATION TYPE: CT brain wo con DATE OF EXAM: 12/16/2016 7:03 PM COMPARISON: NONE HISTORY: Left parietal injury today. complains of Headache, nausea and dizziness CT DLP: 999.8 mGycm Automated exposure control for dose reduction was used. FINDINGS: The ventricles and sulci appear normal. There is no mass effect nor midline shift. There is no sign o f intracranial hemorrhage. The calvarium is intact. IMPRESSION: Normal unenhanced head CT scan.
--- NOTE | 2016-12-16 19:11 | ED ---
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 PAtient reports she bent over, stood up quickly and hit the back of her head on a towel dispense.She reports that since then she has felt dizzy, vomited twice, and has a horrible headache. Patient denies an laceration to the scalp. Denies change in vision, peripheral paresthesias, abdominal pain, chest pain, shortness of breath. Place: work - Related Data Home Medications Medication Instructions Recorded Confirmed Multivitamin [Multivitamins Adult 1 tab PO BID 12/06/16 12/17/16 Gummies] Acetaminophen with Codeine 1 tab PO DAILY PRN 12/16/16 12/17/16 [Tylenol w/codeine #4] Allergies/Adverse reactions: Allergies Allergy/AdvReac Type Severity Reaction Status Date / Time amoxicillin [Amoxicillin] AdvReac Yeast Verified 12/17/16 15:50 Infection Review of Systems ROS Statement: Those systems with pertinent positive or pertinent negative responses have been documented in the HPI. ROS Other: All systems not noted in ROS Statement are negative. Past Medical History Past Medical History: No Reported History Additional Past Medical History / Comment(s): NAUSEA AND VOMITING, RT FLANK PAIN, History of Any Multi-Drug Resistant Organisms: None Reported Past Surgical History: Bariatric Surgery, Cholecystectomy Additional Past Surgical History / Comment(s): right fallopian tube removed May 2015, SLEEVE GASTRECTOMY 03/26/16, Past Anesthesia/Blood Transfusion Reactions: Postoperative Nausea & Vomiting ( PONV) Past Psychological History: Panic Disorder Additional Psychological History / Comment(s): PASSED OUT AT WORK AND HAD PANIC ATTACK. one time issue per pt. no problems since Smoking Status: Never smoker Past Alcohol Use History: None Reported Past Drug Use History: None Reported - Past Family History Sister(s) Family Medical History: Deep Vein Thrombosis (DVT) Mother Family Medical History: Hyperlipidemia, Hypertension Additional Family Medical History / Comment(s): HEART PROBLEMS, IRREG RYTHM Father Family Medical History: Hyperlipidemia, Hypertension General Exam - General Exam Comments Initial Comments: Well appearing 26 year old female. No acute distress. Limitations: no limitations General appearance: alert, in no apparent distress Head exam: Present: atraumatic, normocephalic, normal inspection Eye exam: Present: normal appearance, PERRL, EOMI. Absent: scleral icterus, conjunctival injection, periorbital swelling ENT exam: Present: normal exam, mucous membranes moist Neck exam: Present: normal inspection. Absent: tenderness, meningismus, lymphadenopathy Respiratory exam: Present: normal lung sounds bilaterally. Absent: respiratory distress, wheezes, rales, rhonchi, stridor Cardiovascular Exam: Present: regular rate, normal rhythm, normal heart sounds. Absent: systolic murmur, diastolic murmur, rubs, gallop, clicks GI/Abdominal exam: Present: soft, normal bowel sounds. Absent: distended, tenderness, guarding, rebound, rigid Extremities exam: Present: normal inspection, full ROM, normal capillary refill. Absent: tenderness, pedal edema, joint swelling, calf tenderness Back exam: Present: normal inspection Neurological exam: Present: alert, oriented X3, CN II-XII intact Expanded Patient oriented to: Present: person, place, time Speech: Present: fluid speech Cranial nerves: EOM's Intact: Normal, Gag Reflex: Normal, Tongue Deviation: Normal, Facial Sensation: Normal Cerebellar function: Finger to Nose: Normal Upper motor neuron: Pronator Drift: Normal Sensory exam: Upper Extremity Light Touch: Normal, Lower Extremity Light Touch: Normal Motor strength exam: RUE: 5, LUE: 5, RLE: 5, LLE: 5 Eye Response: (4) open spontaneously Motor Response: (6) obeys commands Verbal Response: (5) oriented [place] Total: 15 Psychiatric exam: Present: normal affect, normal mood Course Vital Signs 12/16/16 12/16/16 16:57 19:36 Temperature 98.4 F 98.0 F Pulse Rate 87 86 Respiratory 20 20 Rate Blood Pressure 129/73 148/80 O2 Sat by Pulse 100 98 Oximetry Medical Decision Making - Medical Decision Making This is a 26 year old female with chief 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 PAtient reports she bent over, stood up quickly and hit the back of her head on a towel dispense.She reports that since then she has felt dizzy, vomited twice, and has a horrible headache. Patient denies an laceration to the scalp. Denies change in vision, peripheral paresthesias, abdominal pain, chest pain, shortness of breath. Patient is neurologically intact, given tyelnol for headache. Given nature of symptoms, patient given CT Brain. Negative for any acute process. Given the rest of the day and tomorrow off of work. Instructed with head injury precautions. PAtient understands treatment plan and will comply. - Radiology Data Radiology results: report reviewed CT brain negative. Disposition Clinical Impression: Minor head injury without loss of consciousness Disposition: HOME SELF-CARE Condition: Good Instructions: Head Injury (ED) Additional Instructions: Patient is advised to take any Motrin or Tylenol for pain. He is not medication as needed. Follow-up with her primary care provider tomorrow. Return to the emergency department if any alarming signs or symptoms occur. Referrals: Arley Allen MD [Primary Care Provider] - 1-2 days Time of Disposition: 19:10
[2016-12-16 19:37] VITALS: BP 148/80; PULSE 86; TEMP 98
== END 2016-12-16 19:35 | disposition home or self-care (01) ==
LOC: EC 16:47
DX: S09.90XA Unspecified injury of head, initial encounter (principal); Z79.899 Other long term (current) drug therapy; Z88.0 Allergy status to penicillin; W22.8XXA Striking against or struck by other objects, initial encounter; Y93.89 Activity, other specified; Y92.69 Other specified industrial and construction area as the place of occurrence of the external cause
CPT/HCPCS: 70450; 99283; S0119

== ENCOUNTER → 2016-12-17 | Outpatient (CLI) | payer BC ==
[2016-12-17 14:37] VITALS: BP 127/74; PULSE 89; RESP 16; TEMP 98.1; BMI 37.2
--- NOTE | 2016-12-17 15:47 | P.HPBAR ---
Bariatric H&P - History & Physicial H&P Date: 12/17/16 History & Physicial: Visit/CC: Sleeve follow-up Patient initial contact: Initial weight: 138.062 kg Initial weight in pounds: 304.37 Height: 5 ft 3 in Initial BMI: 53.8 Last weight: Current weight: 95.254 kg Current weight in pounds: 210.00 Current BMI: 37.2 [place] body weight (based on NIH guidelines): 52.163 kg Excess body weight loss: 49.8% The patient is a 26 year-old F who presents for Bariatric Assessment. The patient states that she bumped her head at work yesterday. She had her head on a metal first a box. She states she had a quite hard and was sent to the emergency room she had a small scalp hematoma. Patient developed some nausea after striking her head. She states prior to this that she was able eat and drink without difficulty. She's had good weight loss with her sleeve gastrectomy. Past Medical History Past Medical History: No Reported History Additional Past Medical History / Comment(s): NAUSEA AND VOMITING, RT FLANK PAIN, History of Any Multi-Drug Resistant Organisms: None Reported Past Surgical History: Bariatric Surgery, Cholecystectomy Additional Past Surgical History / Comment(s): right fallopian tube removed May 2015, SLEEVE GASTRECTOMY 03/26/16, Past Anesthesia/Blood Transfusion Reactions: Postoperative Nausea & Vomiting ( PONV) Past Psychological History: Panic Disorder Additional Psychological History / Comment(s): PASSED OUT AT WORK AND HAD PANIC ATTACK. one time issue per pt. no problems since Smoking Status: Never smoker Past Alcohol Use History: None Reported Past Drug Use History: None Reported - Past Family History Sister(s) Family Medical History: Deep Vein Thrombosis (DVT) Mother Family Medical History: Hyperlipidemia, Hypertension Additional Family Medical History / Comment(s): HEART PROBLEMS, IRREG RYTHM Father Family Medical History: Hyperlipidemia, Hypertension Surgical - Exam Vital Signs Temp Pulse Resp BP 98.1 F 89 16 127/74 12/17/16 14:35 12/17/16 14:35 12/17/16 14:35 12/17/16 14:35 - General well developed, no distress - Eyes PERRL - ENT normal pinna - Neck no masses - Respiratory normal expansion - Cardiovascular Rhythm: regular - Abdomen Abdomen: soft, non tender Bariatric Assessment & Plan Plan: Nausea related to mild head injury. Patient will be observed. She'll follow- up in clinic in 2-4 weeks. Bariatric Checklist Checklist: Plan: Checklist: EGD: 1. Hiatal hernia: 2. H. Pylori: HgbA1c: Vitamin D: Smoking: Never smoker Primary care physician referral: Dr. Allen Psychiatry clearance: Cardiology clearance: Sleep study: Diet journal: VTE risk score: VTE risk level: Rehab needs at discharge:
== END | disposition home or self-care (01) ==
LOC: BARWHC3 14:19
PROVIDERS: ATTEND Surgery
DX: Z48.815 Encounter for surgical aftercare following surgery on the digestive system (principal); Z98.84 Bariatric surgery status
CPT/HCPCS: 99211

== ENCOUNTER → 2017-01-02 | Outpatient (CLI) | payer BC ==
--- NOTE | 2017-01-02 12:37 | XR ---
EXAMINATION TYPE: XR abdomen complete w decub DATE OF EXAM: 01/02/2017 CLINICAL HISTORY: Upper abdominal pain for 3 weeks per patient. Right upper quadrant pain per order TECHNIQUE: Supine, upright, and left side down lateral decubitus views of the abdomen are obtained. COMPARISON: Abdominal x-ray and CT abdomen and pelvis November 14, 2016. FINDINGS: Surgical sutures epigastric region from gastric sleeve procedure are redemonstrated Scatter ed gas is seen in non-distended small bowel loops. Gas and fecal material is seen in non-distended c olon. Cholecystectomy clips are again seen. No pneumoperitoneum is identified. No visceromegaly is se en. Lung bases are clear and visualized osseous structures are intact. IMPRESSION: Overall nonobstructive bowel gas pattern. No significant change from prior studies.
[2017-01-03 09:41] LABS: HCT 40.9 % (34.0-46.0); MCHC 31.7 g/dL (31.0-37.0); MCV 91.3 fL (80.0-100.0); RBC 4.48 m/uL (3.80-5.40); WBC 4.5 k/uL (3.8-10.6); WBC (Perox) 4.82
[2017-01-03 09:42] LABS: Basophils % (A) 0 %; Eosinophils # (A) 0.1 k/uL (0-0.7); Eosinophils % (A) 2 %; Lymphocytes # (A) 1.2 k/uL (1.0-4.8); Lymphocytes % (A) 27 %; Monocytes # (A) 0.2 k/uL (0-1.0); Monocytes % (A) 5 %; Neutrophils # (A) 2.8 k/uL (1.3-7.7); Neutrophils % (A) 63 %; RDW 13.5 % (11.5-15.5)
[2017-01-03 09:43] LABS: CHCM 31.9; HDW 2.42
[2017-01-03 09:44] LABS: Luc # (Auto) 0.11; Luc % (Auto) 3; Mean Platelet Volume 7.2
[2017-01-03 09:46] LABS: Anion Gap 11 mmol/L; Blood Urea Nitrogen 14 mg/dL (7-17); Calcium 9.3 mg/dL (8.4-10.2); Carbon Dioxide 25 mmol/L (22-30); Chloride 106 mmol/L (98-107); Glucose 94 mg/dL (74-99); Non-African American GFR(MDRD) >60 (>60 ml/min/1.73 sqM); Potassium 4.9 mmol/L (3.5-5.1); Sodium 142 mmol/L (137-145)
[2017-01-03 09:47] LABS: ALT 195 U/L (9-52); AST 61 U/L (14-36); Alkaline Phosphatase 103 U/L (38-126); Total Protein 6.9 g/dL (6.3-8.2)
== END | disposition home or self-care (01) ==
LOC: LABWHC1 11:55
PROVIDERS: ATTEND Family Medicine
DX: R10.11 Right upper quadrant pain (principal)
CPT/HCPCS: 36415; 74020; 80053; 84443; 85025

== ENCOUNTER → 2017-01-07 | Outpatient (CLI) | payer BC ==
[2017-01-07 15:22] VITALS: BP 129/84; PULSE 97; TEMP 97.8; BMI 36.8
--- NOTE | 2017-01-21 16:55 | P.HPBAR ---
Bariatric H&P - History & Physicial H&P Date: 01/07/17 History & Physicial: Visit/CC: follow up visit Patient initial contact: Initial weight: 138.062 kg Initial weight in pounds: 304.37 Height: 5 ft 3 in Initial BMI: 53.8 Last weight: Current weight: 94.302 kg Current weight in pounds: 207.90 Current BMI: 36.8 [place] body weight (based on NIH guidelines): 52.163 kg Excess body weight loss: 50.9% The patient is a 26 year-old F who presents for Bariatric Assessment. Patient presents today for sleeve gastric a follow-up. She states her nausea and abdominal pain symptoms improved. She has mild GERD and mild arthritis of her feet. Past Medical History Past Medical History: No Reported History Additional Past Medical History / Comment(s): NAUSEA AND VOMITING, RT FLANK PAIN, History of Any Multi-Drug Resistant Organisms: None Reported Past Surgical History: Bariatric Surgery, Cholecystectomy Additional Past Surgical History / Comment(s): right fallopian tube removed May 2015, SLEEVE GASTRECTOMY 03/26/16, Past Anesthesia/Blood Transfusion Reactions: Postoperative Nausea & Vomiting ( PONV) Past Psychological History: Panic Disorder Additional Psychological History / Comment(s): PASSED OUT AT WORK AND HAD PANIC ATTACK. one time issue per pt. no problems since Smoking Status: Never smoker - Past Family History Sister(s) Family Medical History: Deep Vein Thrombosis (DVT) Mother Family Medical History: Hyperlipidemia, Hypertension Additional Family Medical History / Comment(s): HEART PROBLEMS, IRREG RYTHM Father Family Medical History: Hyperlipidemia, Hypertension Surgical - Exam Vital Signs Temp Pulse BP 97.8 F 97 129/84 01/07/17 15:18 01/07/17 15:18 01/07/17 15:18 - General well developed, no distress - Eyes PERRL - ENT normal pinna - Neck no masses - Abdomen Abdomen: soft, non tender Bariatric Assessment & Plan Plan: Status post sleeve yesterday. Patient is doing quite well. Her GERD symptoms are minimal be observed. Bariatric Checklist Checklist: Plan: Checklist: EGD: 1. Hiatal hernia: 2. H. Pylori: HgbA1c: Vitamin D: Smoking: Never smoker Primary care physician referral: Dr. Allen Psychiatry clearance: Cardiology clearance: Sleep study: Diet journal: VTE risk score: VTE risk level: Rehab needs at discharge:
== END | disposition home or self-care (01) ==
LOC: BARWHC3 14:34
PROVIDERS: ATTEND Surgery
DX: Z09 Encounter for follow-up examination after completed treatment for conditions other than malignant neoplasm (principal); Z98.84 Bariatric surgery status
CPT/HCPCS: 99211

== ENCOUNTER 2017-01-15 21:01 | Emergency (ER) | payer BC ==
[2017-01-15 21:22] VITALS: RESP 18
[2017-01-15] MEDS ORDERED: SODIUM CHLORIDE 0.9% 1,000 ML IV ONE (21:33)
[2017-01-15] MEDS ORDERED: KETOROLAC 30 MG/ML 1 ML VIAL IVP STA (21:49)
[2017-01-15] MEDS ORDERED: ONDANSETRON 4 MG/2 ML VIAL IVP STA (21:49)
--- NOTE | 2017-01-15 21:52 | ED ---
Nausea/Vomiting/Diarrhea HPI - General Chief complaint: Nausea/Vomiting/Diarrhea Stated complaint: vomiting Time Seen by Provider: 01/15/17 21:31 Source: patient, RN notes reviewed Mode of arrival: ambulatory Limitations: no limitations - History of Present Illness Initial comments: Patient is a 26-year-old female presents to the emergency room for evaluation nausea, vomiting and diarrhea. Patient states that she's had nausea and diarrhea since yesterday. Patient states that she feels very weak from vomiting. Patient states she's having abdominal discomfort from vomiting. Patient states she has a history of gastric sleeve in 2016, cholecystectomy and scar tissue removed from right lower quadrant. Patient denies any fevers or chills. Patient denies recent travels out of the country. Patient denies trying new foods. Patient denies recent antibiotic use. Patient states she's having 7 out of 10 pain. Patient states she is still very nauseous. Patient states her last menstrual cycle was 12/22/16. Patient denies any possibility being . Patient denies any other symptoms or complaints. - Related Data Home Medications Medication Instructions Recorded Confirmed Multivitamin [Multivitamins Adult 1 tab PO BID 12/06/16 01/15/17 Gummies] Previous Rx's Medication Instructions Recorded Ondansetron Odt [Zofran Odt] 4 mg PO Q8HR PRN #12 tab 01/16/17 Allergies Allergy/AdvReac Type Severity Reaction Status Date / Time amoxicillin [Amoxicillin] AdvReac Yeast Verified 01/15/17 21:22 Infection Review of Systems ROS Statement: Those systems with pertinent positive or pertinent negative responses have been documented in the HPI. ROS Other: All systems not noted in ROS Statement are negative. Past Medical History Past Medical History: No Reported History Additional Past Medical History / Comment(s): NAUSEA AND VOMITING, RT FLANK PAIN, History of Any Multi-Drug Resistant Organisms: None Reported Past Surgical History: Bariatric Surgery, Cholecystectomy Additional Past Surgical History / Comment(s): right fallopian tube removed May 2015, SLEEVE GASTRECTOMY 03/26/16, gastric sleeve 03/2016 Past Anesthesia/Blood Transfusion Reactions: Postoperative Nausea & Vomiting ( PONV) Past Psychological History: Panic Disorder Smoking Status: Never smoker Past Alcohol Use History: None Reported Past Drug Use History: None Reported - Past Family History Sister(s) Family Medical History: Deep Vein Thrombosis (DVT) Mother Family Medical History: Hyperlipidemia, Hypertension Additional Family Medical History / Comment(s): HEART PROBLEMS, IRREG RYTHM Father Family Medical History: Hyperlipidemia, Hypertension General Exam - General Exam Comments Initial Comments: Laying in exam room, no acute distress. Limitations: no limitations General appearance: alert, in no apparent distress Head exam: Present: atraumatic, normocephalic, normal inspection Eye exam: Present: normal appearance ENT exam: Present: normal exam Neck exam: Present: normal inspection Respiratory exam: Present: normal lung sounds bilaterally. Absent: respiratory distress Cardiovascular Exam: Present: regular rate, normal rhythm, normal heart sounds GI/Abdominal exam: Present: soft, tenderness (RUQ, LUQ, upper epigastric discomfort on palpation), normal bowel sounds. Absent: distended, guarding, rebound, rigid Extremities exam: Present: normal inspection Back exam: Present: normal inspection Neurological exam: Present: alert, oriented X3, CN II-XII intact, normal gait Psychiatric exam: Present: normal affect, normal mood Skin exam: Present: warm, dry, intact, normal color. Absent: rash Course Vital Signs 01/15/17 01/15/17 01/15/17 21:18 22:11 23:44 Temperature 98.6 F Pulse Rate 89 92 87 Respiratory 18 18 18 Rate Blood Pressure 143/86 114/58 102/55 O2 Sat by Pulse 100 100 98 Oximetry Medical Decision Making - Medical Decision Making Patient is a 18-year-old female since emergency room for evaluation nausea, vomiting and diarrhea. Patient is complaining of upper abdominal pain. Abdomen/ pelvis CT nondilated scattered fluid-filled small bowel loops are nonspecific. Enteritis cannot be excluded. No small bowel obstruction or inflammation. Normal appendix. Patient's symptoms consistent with gastroenteritis. Patient will be sent home with [facility] and advised follow-up with primary care provider. Patient states she understands everything that was discussed with her. Return parameters discussed. Case discussed Dr. Hill. - Lab Data Result diagrams: 01/15/17 22:05 01/15/17 22:05 Lab Results 01/15/17 01/15/17 01/15/17 Range/Units 22:05 22:05 22:05 WBC 9.8 (3.8-10.6) k/uL RBC 4.35 (3.80-5.40) m/uL Hgb 13.1 (11.4-16.0) gm/dL Hct 38.3 (34.0-46.0) % MCV 88.0 (80.0-100.0) fL MCH 30.2 (25.0-35.0) pg MCHC 34.3 (31.0-37.0) g/dL RDW 13.3 (11.5-15.5) % Plt Count 270 (150-450) k/uL Neutrophils % 65 % Lymphocytes % 24 % Monocytes % 6 % Eosinophils % 2 % Basophils % 0 % Neutrophils # 6.4 (1.3-7.7) k/uL Lymphocytes # 2.3 (1.0-4.8) k/uL Monocytes # 0.6 (0-1.0) k/uL Eosinophils # 0.2 (0-0.7) k/uL Basophils # 0.0 (0-0.2) k/uL Sodium 142 (137-145) mmol/L Potassium 4.2 (3.5-5.1) mmol/L Chloride 109 H (98-107) mmol/L Carbon Dioxide 23 (22-30) mmol/L Anion Gap 10 mmol/L BUN 18 H (7-17) mg/dL Creatinine 0.69 (0.52-1.04) mg/dL Est GFR (MDRD) Af Amer >60 (>60 ml/min/1.73 sqM) Est GFR (MDRD) Non-Af >60 (>60 ml/min/1.73 sqM) Glucose 94 (74-99) mg/dL Calcium 9.0 (8.4-10.2) mg/dL Total Bilirubin 0.6 (0.2-1.3) mg/dL AST 20 (14-36) U/L ALT 33 (9-52) U/L Alkaline Phosphatase 71 (38-126) U/L Total Protein 6.7 (6.3-8.2) g/dL Albumin 3.9 (3.5-5.0) g/dL Amylase 46 (30-110) U/L Lipase 155 (23-300) U/L Urine Color Urine Appearance (Clear) Urine pH (5.0-8.0) Ur Specific [place] (1.001-1.035) Urine Protein (Negative) Urine Glucose (UA) (Negative) Urine Ketones (Negative) Urine Blood (Negative) Urine Nitrite (Negative) Urine Bilirubin (Negative) Urine Urobilinogen (<2.0) mg/dL Ur Leukocyte Esterase (Negative) Urine RBC (0-5) /hpf Urine WBC (0-5) /hpf Ur Squamous Epith Cells (0-4) /hpf Urine Bacteria (None) /hpf Urine Mucus (None) /hpf Urine HCG, Qual Not Detected (Not Detectd) 01/15/17 Range/Units 22:05 WBC (3.8-10.6) k/uL RBC (3.80-5.40) m/uL Hgb (11.4-16.0) gm/dL Hct (34.0-46.0) % MCV (80.0-100.0) fL MCH (25.0-35.0) pg MCHC (31.0-37.0) g/dL RDW (11.5-15.5) % Plt Count (150-450) k/uL Neutrophils % % Lymphocytes % % Monocytes % % Eosinophils % % Basophils % % Neutrophils # (1.3-7.7) k/uL Lymphocytes # (1.0-4.8) k/uL Monocytes # (0-1.0) k/uL Eosinophils # (0-0.7) k/uL Basophils # (0-0.2) k/uL Sodium (137-145) mmol/L Potassium (3.5-5.1) mmol/L Chloride (98-107) mmol/L Carbon Dioxide (22-30) mmol/L Anion Gap mmol/L BUN (7-17) mg/dL Creatinine (0.52-1.04) mg/dL Est GFR (MDRD) Af Amer (>60 ml/min/1.73 sqM) Est GFR (MDRD) Non-Af (>60 ml/min/1.73 sqM) Glucose (74-99) mg/dL Calcium (8.4-10.2) mg/dL Total Bilirubin (0.2-1.3) mg/dL AST (14-36) U/L ALT (9-52) U/L Alkaline Phosphatase (38-126) U/L Total Protein (6.3-8.2) g/dL Albumin (3.5-5.0) g/dL Amylase (30-110) U/L Lipase (23-300) U/L Urine Color Yellow Urine Appearance Cloudy H (Clear) Urine pH 5.5 (5.0-8.0) Ur Specific [place] 1.030 (1.001-1.035) Urine Protein Trace H (Negative) Urine Glucose (UA) Negative (Negative) Urine Ketones Negative (Negative) Urine Blood Negative (Negative) Urine Nitrite Negative (Negative) Urine Bilirubin Negative (Negative) Urine Urobilinogen 2.0 (<2.0) mg/dL Ur Leukocyte Esterase Negative (Negative) Urine RBC 2 (0-5) /hpf Urine WBC <1 (0-5) /hpf Ur Squamous Epith Cells 2 (0-4) /hpf Urine Bacteria Rare H (None) /hpf Urine Mucus Rare H (None) /hpf Urine HCG, Qual (Not Detectd) - Radiology Data Radiology results: report reviewed, image reviewed Disposition Clinical Impression: Nausea & vomiting, Diarrhea Disposition: HOME SELF-CARE Condition: Good Instructions: Gastroenteritis (ED) Additional Instructions: Drink plenty of water. Clear liquid diet for the next 1-2 days. Take Zofran as needed for nausea. Please follow up with primary care provider in 1-2 days. If any new symptom arises or symptoms worsen, return to ER as soon as possible. Prescriptions: Ondansetron Odt [Zofran Odt] 4 mg PO Q8HR PRN #12 tab PRN Reason: Nausea Referrals: Arley Allen MD [Primary Care Provider] - 1-2 days Time of Disposition: 00:14
[2017-01-15 22:21] LABS: Basophils % (A) 0 %; CHCM 33.1; Eosinophils # (A) 0.2 k/uL (0-0.7); Eosinophils % (A) 2 %; HCT 38.3 % (34.0-46.0); HDW 2.51; HGB 13.1 gm/dL (11.4-16.0); Luc # (Auto) 0.22; Luc % (Auto) 2; Lymphocytes # (A) 2.3 k/uL (1.0-4.8); Lymphocytes % (A) 24 %; MCH 30.2 pg (25.0-35.0); MCHC 34.3 g/dL (31.0-37.0); Mean Platelet Volume 7.4; Monocytes # (A) 0.6 k/uL (0-1.0); Monocytes % (A) 6 %; Neutrophils # (A) 6.4 k/uL (1.3-7.7); Neutrophils % (A) 65 %; RBC 4.35 m/uL (3.80-5.40); RDW 13.3 % (11.5-15.5); WBC 9.8 k/uL (3.8-10.6); WBC (Perox) 10.28
[2017-01-15 22:25] LABS: Appearance,Urine Cloudy (Clear); Bacteria,Urine Rare /hpf; Bilirubin,Urine Negative (Negative); Glucose,Urine (UA) Negative (Negative); Ketones,Urine Negative (Negative); Leukocyte Esterase,Urine Negative (Negative); Mucus,Urine Rare /hpf; Nitrite,Urine Negative (Negative); PH, Urine 5.5 (5.0-8.0); Particle Count 4433; Protein,Urine Trace (Negative); RBC,Urine 2 /hpf (0-5); Squamous Epithelial Cell,Urine 2 /hpf (0-4); UA Billing (MACRO vs. MICRO) MICRO; WBC,Urine <1 /hpf (0-5)
[2017-01-15 22:33] LABS: ALT 33 U/L (9-52); AST 20 U/L (14-36); Alkaline Phosphatase 71 U/L (38-126); Amylase 46 U/L (30-110); Anion Gap 10 mmol/L; Blood Urea Nitrogen 18 mg/dL (7-17); Carbon Dioxide 23 mmol/L (22-30); Chloride 109 mmol/L (98-107); Glucose 94 mg/dL (74-99); Non-African American GFR(MDRD) >60 (>60 ml/min/1.73 sqM); Potassium 4.2 mmol/L (3.5-5.1); Sodium 142 mmol/L (137-145); Total Bilirubin 0.6 mg/dL (0.2-1.3); Total Protein 6.7 g/dL (6.3-8.2)
[2017-01-15] MEDS ORDERED: HYDROmorphone 1 MG/ML 1 ML SYRINGE IVP STA (23:19)
[2017-01-15] MEDS ORDERED: RX INFO: IV CONTRAST WAS GIVEN 1 EACH MISC MISCELLANE PRN (23:20)
[2017-01-15] MEDS ORDERED: FAMOTIDINE 20 MG/2 ML VIAL IV STA (23:20)
--- NOTE | 2017-01-16 00:08 | CT ---
EXAM: CT Abdomen and Pelvis With Intravenous Contrast CLINICAL HISTORY: Reason: nausea, vomitting , diarrhea, lower abd pain TECHNIQUE: Axial computed tomography images of the abdomen and pelvis with intravenous contrast. CTDI is 37 mGy and DLP is 1411.20 mGy-cm. This CT exam was performed using one or more of the following dose reduction techniques: automated exposure control, adjustment of the mA and/or kV according to patient size, and/or use of iterative reconstruction technique. COMPARISON: CT abdomen/pelvis on 11/14/2016 FINDINGS: Liver: Normal. No focal lesion. Spleen: Normal. No focal lesion. Gallbladder: Status post cholecystectomy. Pancreas: Normal. No mass. Adrenal glands: Stable nonspecific tiny nodule in the left adrenal gland. Kidneys: Normal. No hydronephrosis or stone. No mass. Bowel: Status post gastric bypass surgery. Normal appendix. Nondilated scattered fluid-filled small bowel loops, nonspecific. No bowel obstruction or inflammation. Urinary bladder: Normal. No wall thickening or mass. Reproductive organs: Involuting cyst/follicle in the right ovary. Muscles: No mass. Subcutaneous tissues: Postsurgical changes of the anterior abdominal wall. Peritoneal space: Normal. No free fluid. Lymph nodes: Similar small mesenteric lymph nodes are nonspecific but likely reactive. Vessels: Normal. No aneurysm or dissection. Bones: Stable bone island in the left femoral head. No acute fracture. Lung bases: Stable 5 mm nodule in the right lower lobe. IMPRESSION: 1. Nondilated scattered fluid-filled small bowel loops are nonspecific. Enteritis cannot be excluded. No small bowel obstruction or inflammation. Normal appendix. 2. Other incidental findings as described above.
[2017-01-16 00:39] VITALS: BP 109/53; PULSE 82; TEMP 97.6
== END 2017-01-16 00:39 | disposition home or self-care (01) ==
LOC: EC 21:01
DX: R11.2 Nausea with vomiting, unspecified (principal); R19.7 Diarrhea, unspecified; R10.811 Right upper quadrant abdominal tenderness; R10.812 Left upper quadrant abdominal tenderness; R10.816 Epigastric abdominal tenderness; R53.1 Weakness; Z90.49 Acquired absence of other specified parts of digestive tract; Z88.0 Allergy status to penicillin; Z79.899 Other long term (current) drug therapy
CPT/HCPCS: 99284; 96374; 96375 ×3; 96361; 36415; 80053; 82150; 83690; 85025; 81001; 81025; 74177; J2405; J1885; J1170; Q9967

== ENCOUNTER → 2017-01-21 | Outpatient (CLI) | payer BC ==
--- NOTE | 2017-01-21 09:54 | US ---
EXAMINATION TYPE: US abdomen complete DATE OF EXAM: 01/21/2017 COMPARISON: NONE CLINICAL HISTORY: 26-year-old female with R94.5 ABD PAIN. Fluctuating liver enzymes, in September 12 was,0 00 now back down to 200, h/o cholecystectomy, weight loss surgery TECHNIQUE: Multiple sonographic images of the abdomen are obtained. FINDINGS: Liver Length: 15.1 cm Gallbladder Wall: N/A cm CBD: 0.6 cm Spleen: 11.9 cm Right Kidney: 8.9 x 4.5 x 4.8 cm Left Kidney: 10.1 x 5.1 x 5.9 cm Pancreas: Only a small portion of the pancreatic neck is seen. Remainder suboptimally visualized sec ondary to shadowing from bowel gas. Liver: Slightly heterogeneous echotexture could be on a technical basis. No focal lesion is seen. Gallbladder: Surgically absent Evidence for sonographic Lang's sign: no CBD: Borderline dilated but within normal limits postcholecystectomy status. Spleen: wnl Right Kidney: smaller in size without hydronephrosis. Left Kidney: No hydronephrosis Upper IVC: wnl Abd Aorta: limited views appeared wnl IMPRESSION: 1. Borderline dilatation of the bile duct (6 mm), likely within normal limits postcholecystectomy sta tus. 2. Slight heterogeneous echotexture of the liver could be on a technical basis. Correlate to exclude nonspecific hepatocellular disease.
== END | disposition home or self-care (01) ==
LOC: RADUSWWP 08:49
PROVIDERS: ATTEND Family Medicine
DX: K76.89 Other specified diseases of liver (principal); Z90.49 Acquired absence of other specified parts of digestive tract
CPT/HCPCS: 76700

== ENCOUNTER 2017-01-23 20:55 | Emergency (ER) | payer BC ==
[2017-01-23] MEDS ORDERED: ONDANSETRON 4 MG/2 ML VIAL IVP STA (21:29)
[2017-01-23] MEDS ORDERED: MAG HYDROX/AL HYDROX/SIMETH 30 ML, HYOSCYAMINE ELIXIR 10 ML, CIMETIDINE HCL 300 MG, LID... PO STA ×4 (21:29)
[2017-01-23] MEDS ORDERED: SODIUM CHLORIDE 0.9% 1,000 ML IV STA (21:29)
--- NOTE | 2017-01-23 21:38 | ED ---
Abdominal Pain HPI - General Chief Complaint: Abdominal Pain Stated Complaint: Abd Pain Time Seen by Provider: 01/23/17 21:25 Source: patient, family, RN notes reviewed Mode of arrival: ambulatory - History of Present Illness Initial Comments: 26-year-old female presents to the emergency department with a chief complaint of epigastric abdominal pain. Patient suffers chronically from this epigastric abdominal pain and is waiting to see a GI specialist this coming week. Tonight her chronic pain flared up. Patient states the stabbing type pain right in her epigastric area. Patient denies any chest pain or shortness of breath with this. Patient states she has not had any nausea or vomiting. Patient states exactly like her typical flareup of her chronic pain. Patient states they have not found a cause for this pain yet and that is worse when specialist. She took a Motrin tonight with no improvement to the symptoms so she thought maybe we could help her feel better. Patient is very tearful.Patient denies any recent fever, chills, shortness of breath, chest pain, back pain, nausea vomiting, numbness or tingling, dysuria or hematuria, constipation or diarrhea, headaches or visual changes, or any other current symptoms. - Related Data Home Medications Medication Instructions Recorded Confirmed No Known Home Medications [No 01/23/17 01/23/17 Known Home Medications] Allergies Allergy/AdvReac Type Severity Reaction Status Date / Time amoxicillin [Amoxicillin] AdvReac Yeast Verified 01/23/17 21:11 Infection Review of Systems ROS Statement: Those systems with pertinent positive or pertinent negative responses have been documented in the HPI. ROS Other: All systems not noted in ROS Statement are negative. Past Medical History Past Medical History: No Reported History Additional Past Medical History / Comment(s): elevated liver ezymes for unknown reason. History of Any Multi-Drug Resistant Organisms: None Reported Past Surgical History: Bariatric Surgery, Cholecystectomy Additional Past Surgical History / Comment(s): right fallopian tube removed May 2015, SLEEVE GASTRECTOMY 03/26/16, gastric sleeve 03/2016 Past Anesthesia/Blood Transfusion Reactions: Postoperative Nausea & Vomiting ( PONV) Past Psychological History: Panic Disorder Smoking Status: Never smoker Past Alcohol Use History: None Reported Past Drug Use History: None Reported - Past Family History Sister(s) Family Medical History: Deep Vein Thrombosis (DVT) Mother Family Medical History: Hyperlipidemia, Hypertension Additional Family Medical History / Comment(s): HEART PROBLEMS, IRREG RYTHM Father Family Medical History: Hyperlipidemia, Hypertension General Exam - General Exam Comments Initial Comments: General: The patient is awake and alert, cheerful, and does not appear acutely ill. Eye: Pupils are equal, round and reactive to light, extra-ocular movements are intact; there is normal conjunctiva bilaterally. No signs of icterus. Ears, nose, mouth and throat: There are moist mucous membranes and no oral lesions. Neck: The neck is supple, there is no tenderness or JVD. Cardiovascular: There is a regular rate and rhythm. No murmur, rub or gallop is appreciated. Respiratory: Lungs are clear to auscultation, respirations are non-labored, breath sounds are equal. No wheezes, stridor, rales, or rhonchi. Gastrointestinal: Soft, non-distended, non-tender abdomen without masses or organomegaly noted. There is no rebound or guarding present. CVA tenderness. Bowel sounds are unremarkable. Back: There is no tenderness to palpation in the midline. There is no obvious deformity. No rashes noted. Musculoskeletal: Normal ROM, no tenderness, There is no pedal edema. There is no calf tenderness or swelling. Sensation intact. Pulses equal bilaterally 2+. Neurological: CN II-XII intact, There are no obvious motor or sensory deficits. Coordination appears grossly intact. Speech is normal. Skin: Skin is warm and dry and no rashes or lesions are noted. Psychiatric: Cooperative, appropriate mood & affect, normal judgment. Course Vital Signs 01/23/17 01/23/17 01/23/17 21:05 22:15 22:58 Temperature 97.9 F 97.5 F L Pulse Rate 130 H 90 78 Respiratory 18 16 16 Rate Blood Pressure 153/88 137/91 117/66 O2 Sat by Pulse 99 96 100 Oximetry Medical Decision Making - Medical Decision Making 26-year-old female presents to the emergency Department chief complaint of epigastric abdominal pain. At this time patient is reexamined and states her pain has improved with our treatment. At this time we did discuss that she needs to follow-up with GI and she was given their information. This time lab work is not showing any acute process. X-rays reviewed and does not show any abnormalities. This and the patient will be discharged home to follow-up. The patient stated that she understood all her questions have been answered. - Lab Data Result diagrams: 01/23/17 21:25 01/23/17 21:25 Lab Results 01/23/17 01/23/17 01/23/17 Range/Units 21:25 21:25 22:07 WBC 8.8 (3.8-10.6) k/uL RBC 4.23 (3.80-5.40) m/uL Hgb 12.2 (11.4-16.0) gm/dL Hct 36.2 (34.0-46.0) % MCV 85.5 (80.0-100.0) fL MCH 28.7 (25.0-35.0) pg MCHC 33.6 (31.0-37.0) g/dL RDW 13.4 (11.5-15.5) % Plt Count 245 (150-450) k/uL Neutrophils % 65 % Lymphocytes % 26 % Monocytes % 5 % Eosinophils % 2 % Basophils % 0 % Neutrophils # 5.7 (1.3-7.7) k/uL Lymphocytes # 2.3 (1.0-4.8) k/uL Monocytes # 0.4 (0-1.0) k/uL Eosinophils # 0.2 (0-0.7) k/uL Basophils # 0.0 (0-0.2) k/uL Sodium 141 (137-145) mmol/L Potassium 4.2 (3.5-5.1) mmol/L Chloride 108 H (98-107) mmol/L Carbon Dioxide 25 (22-30) mmol/L Anion Gap 8 mmol/L BUN 21 H (7-17) mg/dL Creatinine 0.75 (0.52-1.04) mg/dL Est GFR (MDRD) Af Amer >60 (>60 ml/min/1.73 sqM) Est GFR (MDRD) Non-Af >60 (>60 ml/min/1.73 sqM) Glucose 95 (74-99) mg/dL Calcium 9.2 (8.4-10.2) mg/dL Total Bilirubin 0.4 (0.2-1.3) mg/dL AST 34 (14-36) U/L ALT 42 (9-52) U/L Alkaline Phosphatase 68 (38-126) U/L Total Protein 6.9 (6.3-8.2) g/dL Albumin 4.1 (3.5-5.0) g/dL Amylase 53 (30-110) U/L Lipase 200 (23-300) U/L Urine Color Yellow Urine Appearance Cloudy H (Clear) Urine pH 7.0 (5.0-8.0) Ur Specific [place] 1.021 (1.001-1.035) Urine Protein Trace H (Negative) Urine Glucose (UA) Negative (Negative) Urine Ketones Negative (Negative) Urine Blood Trace H (Negative) Urine Nitrite Negative (Negative) Urine Bilirubin Negative (Negative) Urine Urobilinogen <2.0 (<2.0) mg/dL Ur Leukocyte Esterase Trace H (Negative) Urine RBC 3 (0-5) /hpf Urine WBC 1 (0-5) /hpf Ur Squamous Epith Cells 3 (0-4) /hpf Amorphous Sediment Rare H (None) /hpf Urine Bacteria Occasional H (None) /hpf Urine Mucus Rare H (None) /hpf - EKG Data -: EKG Interpreted by Me 01/23/17 21:39 Sinus tachycardia 103 bpm, normal axis, no atopy, no S-T depressions or elevations, Disposition Clinical Impression: Chronic abdominal pain Disposition: HOME SELF-CARE Condition: Stable Instructions: Abdominal Pain (ED) Additional Instructions: Please use medication as discussed. Please follow up with family doctor if symptoms have not improved over the next two days. Please return to the emergency room if your symptoms increase or worsen or for any other concerns. Referrals: Arley Allen MD [Primary Care Provider] - 1-2 days [place] Vallejo MD [STAFF PHYSICIAN] - 1-2 days Time of Disposition: 23:24
[2017-01-23 21:49] LABS: Basophils % (A) 0 %; CH 28.7; CHCM 33.7; Eosinophils # (A) 0.2 k/uL (0-0.7); Eosinophils % (A) 2 %; HCT 36.2 % (34.0-46.0); HDW 2.53; HGB 12.2 gm/dL (11.4-16.0); Luc % (Auto) 2; Lymphocytes # (A) 2.3 k/uL (1.0-4.8); Lymphocytes % (A) 26 %; MCH 28.7 pg (25.0-35.0); MCHC 33.6 g/dL (31.0-37.0); MCV 85.5 fL (80.0-100.0); Mean Platelet Volume 7.1; Monocytes # (A) 0.4 k/uL (0-1.0); Monocytes % (A) 5 %; Neutrophils # (A) 5.7 k/uL (1.3-7.7); Neutrophils % (A) 65 %; RBC 4.23 m/uL (3.80-5.40); RDW 13.4 % (11.5-15.5); WBC 8.8 k/uL (3.8-10.6); WBC (Perox) 8.86
--- NOTE | 2017-01-23 22:00 | XR ---
EXAMINATION TYPE: XR abdomen 2V DATE OF EXAM: 01/23/2017 HISTORY: Pain. Technique: 3 views of the abdomen are submitted. Comparison: None. Findings: There is no convincing evidence of pneumoperitoneum. The Bowel gas pattern is nonspecific and nonobstructive. No sizable air-fluid levels are seen. No mass effects are noted. No renal calcifications are identified. IMPRESSION: 1. Nonspecific nonobstructive bowel gas pattern
[2017-01-23 22:11] LABS: ALT 42 U/L (9-52); AST 34 U/L (14-36); Alkaline Phosphatase 68 U/L (38-126); Amylase 53 U/L (30-110); Anion Gap 8 mmol/L; Blood Urea Nitrogen 21 mg/dL (7-17); Calcium 9.2 mg/dL (8.4-10.2); Carbon Dioxide 25 mmol/L (22-30); Chloride 108 mmol/L (98-107); Glucose 95 mg/dL (74-99); Non-African American GFR(MDRD) >60 (>60 ml/min/1.73 sqM); Potassium 4.2 mmol/L (3.5-5.1); Sodium 141 mmol/L (137-145); Total Bilirubin 0.4 mg/dL (0.2-1.3); Total Protein 6.9 g/dL (6.3-8.2)
[2017-01-23] MEDS ORDERED: KETOROLAC 30 MG/ML 1 ML VIAL IVP STA (22:14)
[2017-01-23 22:15] VITALS: RESP 16
[2017-01-23 22:35] LABS: Amorphous Sediment,Urine Rare /hpf; Appearance,Urine Cloudy (Clear); Bacteria,Urine Occasional /hpf; Bilirubin,Urine Negative (Negative); Glucose,Urine (UA) Negative (Negative); Ketones,Urine Negative (Negative); Leukocyte Esterase,Urine Trace (Negative); Mucus,Urine Rare /hpf; Nitrite,Urine Negative (Negative); Particle Count 8498; Protein,Urine Trace (Negative); RBC,Urine 3 /hpf (0-5); Specific Gravity,Urine 1.021 (1.001-1.035); Squamous Epithelial Cell,Urine 3 /hpf (0-4); UA Billing (MACRO vs. MICRO) MICRO; Urobilinogen,Urine <2.0 mg/dL (<2.0); WBC,Urine 1 /hpf (0-5)
[2017-01-23] MEDS ORDERED: FAMOTIDINE 20 MG/2 ML VIAL IV STA (22:37)
[2017-01-23] MEDS ORDERED: DICYCLOMINE 10 MG/ML 2 ML AMP IM STA (22:37)
[2017-01-23 22:59] VITALS: BP 117/66; PULSE 78; TEMP 97.5
== END 2017-01-23 23:35 | disposition home or self-care (01) ==
LOC: EC 20:55
DX: G89.29 Other chronic pain (principal); R10.13 Epigastric pain; Z98.84 Bariatric surgery status; Z88.0 Allergy status to penicillin
CPT/HCPCS: 36415; 93005; 80053; 82150; 83690; 85025; 81001; 74020; 99284; 96372; 96374; 96375; 96361; J0500; J2405; J1885

== ENCOUNTER 2017-02-05 21:51 | Emergency (ER) | payer BC ==
[2017-02-05 21:59] VITALS: BP 139/90; PULSE 96; RESP 18; TEMP 98.8
[2017-02-05] MEDS ORDERED: LORATADINE-PSEUDOEPH 5-120 MG 1 EACH TAB.ER.12H PO STA (22:15)
--- NOTE | 2017-02-05 22:15 | ED ---
General Adult HPI - General Chief complaint: ENT Stated complaint: Ear Pain Time Seen by Provider: 02/05/17 21:59 Source: patient, family, RN notes reviewed Mode of arrival: ambulatory Limitations: no limitations - History of Present Illness Initial comments: 18-year-old female presents emergency room chief complaint of left ear pain. Patient states this started over the last day or so. Patient was unable to get into her doctor's office so she came here. Patient states that it radiates into her jaw. Patient denies any fever chills with this any cough cold. Patient states she is not currently having any other symptoms at this time. Patient denies any recent fever, chills, shortness of breath, chest pain, back pain, abdominal pain, nausea vomiting, numbness or tingling, dysuria or hematuria, constipation or diarrhea, headaches or visual changes, or any other current symptoms. - Related Data Home Medications Medication Instructions Recorded Confirmed Multivitamin [Multivitamins Adult 2 each PO 02/05/17 Gummies] Previous Rx's Medication Instructions Recorded Loratadine-Pseudoeph 10-240 mg 1 each PO DAILY #10 tab 02/05/17 [Claritin-D 24 Hr] Allergies Allergy/AdvReac Type Severity Reaction Status Date / Time amoxicillin [Amoxicillin] AdvReac Yeast Verified 02/05/17 22:01 Infection hydrocodone [From [place]] AdvReac Nausea & Verified 02/05/17 22:01 Vomiting Review of Systems ROS Statement: Those systems with pertinent positive or pertinent negative responses have been documented in the HPI. ROS Other: All systems not noted in ROS Statement are negative. Past Medical History Past Medical History: No Reported History Additional Past Medical History / Comment(s): elevated liver ezymes for unknown reason. History of Any Multi-Drug Resistant Organisms: None Reported Past Surgical History: Bariatric Surgery, Cholecystectomy Additional Past Surgical History / Comment(s): right fallopian tube removed May 2015, SLEEVE GASTRECTOMY 03/26/16, gastric sleeve 03/2016 Past Anesthesia/Blood Transfusion Reactions: Postoperative Nausea & Vomiting ( PONV) Past Psychological History: Panic Disorder Smoking Status: Never smoker Past Alcohol Use History: None Reported Past Drug Use History: None Reported - Past Family History Sister(s) Family Medical History: Deep Vein Thrombosis (DVT) Mother Family Medical History: Hyperlipidemia, Hypertension Additional Family Medical History / Comment(s): HEART PROBLEMS, IRREG RYTHM Father Family Medical History: Hyperlipidemia, Hypertension General Exam - General Exam Comments Initial Comments: General exam: Alert, active, comfortable in no apparent distress Head: Normocephalic Eyes: Normal reaction of pupils, equal size, normal range of extraocular motion Ears: normal external ear canals, pink tympanic membranes with normal cone of light Nose: clear with pink turbinates Throat: no erythema or exudates with normal sized tonsils Neck: no masses, no nuchal rigidity Chest: no chest wall deformity Lungs: equal air entry with no crackles or wheeze CVS: S1 and S2 normal with no audible mumurs, regular rhythm Spine: no scoliosis or deformity Skin: no rashes Neurological: No focal deficits, tone is normal in all 4 extremities Limitations: no limitations Course Vital Signs 02/05/17 21:55 Temperature 98.8 F Pulse Rate 96 Respiratory 18 Rate Blood Pressure 139/90 O2 Sat by Pulse 99 Oximetry Medical Decision Making - Medical Decision Making 18-year-old female presents emergency Department chief complaint of left ear pain. This time we will start the patient on Claritin. We did discuss return parameters and follow-up. Questions. Patient stated that she understood and she is in agreement the plan. This time she will be discharged home. Disposition Clinical Impression: Left ear pain Disposition: HOME SELF-CARE Condition: Stable Instructions: Earache (ED) Additional Instructions: Please use medication as discussed. Please follow up with family doctor if symptoms have not improved over the next two days. Please return to the emergency room if your symptoms increase or worsen or for any other concerns. Prescriptions: Loratadine-Pseudoeph 10-240 mg [Claritin-D 24 Hr] 1 each PO DAILY #10 tab Referrals: Arley Allen MD [Primary Care Provider] - 1-2 days Time of Disposition: 22:15
== END 2017-02-05 22:32 | disposition home or self-care (01) ==
LOC: EC 21:51
DX: H92.02 Otalgia, left ear (principal); Z79.899 Other long term (current) drug therapy; Z88.0 Allergy status to penicillin; Z88.5 Allergy status to narcotic agent
CPT/HCPCS: 99282

== ENCOUNTER 2017-03-01 18:40 | Inpatient (IN) | payer BC ==
[2017-03-01] MEDS ORDERED: SODIUM CHLORIDE 0.9% 2,000 ML IV STA (19:19)
[2017-03-01] MEDS ORDERED: ONDANSETRON 4 MG/2 ML VIAL IVP STA ×2 (19:19→20:53)
[2017-03-01] MEDS ORDERED: SODIUM CHLORIDE 0.9% 1,000 ML IV STA (19:19)
[2017-03-01] MEDS ORDERED: HYDROmorphone 1 MG/ML 1 ML SYRINGE IVP STA ×2 (19:19→21:04)
[2017-03-01] MEDS ORDERED: RX INFO: IV CONTRAST WAS GIVEN 1 EACH MISC MISCELLANE PRN (19:25)
[2017-03-01] MEDS ORDERED: IOHEXOL 350 MG/ML 25 ML BOTTLE (ORAL USE) PO PRN (19:25)
--- NOTE | 2017-03-01 19:30 | ED ---
General Adult HPI - General Chief complaint: Abdominal Pain Stated complaint: abdominal pain Time Seen by Provider: 03/01/17 19:07 Source: patient, RN notes reviewed, old records reviewed Mode of arrival: ambulatory Limitations: no limitations - History of Present Illness Initial comments: Chief complaint and history of present illness a 26-year-old female complaining of epigastric pain ongoing for 7 days. Nausea but no vomiting she has had diarrhea for 3 days. In March of last year she had bariatric surgery, the sleeve. No problems for the first for 6 months and then she started having upper epigastric pain. - Related Data Home Medications Medication Instructions Recorded Confirmed Ibuprofen [Motrin] 400 mg PO TID PRN 03/01/17 03/01/17 Multivitamins, Thera [Multivitamin 1 tab PO BID 03/01/17 03/01/17 (formulary)] Allergies Allergy/AdvReac Type Severity Reaction Status Date / Time amoxicillin [Amoxicillin] AdvReac Yeast Verified 03/01/17 19:05 Infection hydrocodone [From [place]] AdvReac Nausea & Verified 03/01/17 19:05 Vomiting Review of Systems ROS Statement: Those systems with pertinent positive or pertinent negative responses have been documented in the HPI. Review of systems. No headache or visual acuity changes no chest pain or shortness of breath she has pain in the epigastric region. No back pain. Nausea but no vomiting, diarrhea for 3 days. Epigastric pain ongoing for 7 days. Afraid to eat because it causes discomfort. All systems are reviewed. Past medical problems as noted above bariatric surgery March last . She 's also had a cholecystectomy, right fallopian tube surgery. Otherwise denies any medical problems. Family history includes cancers prostate, thyroid and cervical. Nonsmoker nondrinker. Patient has ALLERGIES to amoxicillin and hydrocodone. But she states she can take Dilaudid. ROS Other: All systems not noted in ROS Statement are negative. Past Medical History Past Medical History: No Reported History Additional Past Medical History / Comment(s): elevated liver ezymes for unknown reason. History of Any Multi-Drug Resistant Organisms: None Reported Past Surgical History: Bariatric Surgery, Cholecystectomy Additional Past Surgical History / Comment(s): right fallopian tube removed May 2015, SLEEVE GASTRECTOMY 03/26/16, gastric sleeve 03/2016 Past Anesthesia/Blood Transfusion Reactions: Postoperative Nausea & Vomiting ( PONV) Past Psychological History: Panic Disorder Smoking Status: Never smoker Past Alcohol Use History: None Reported Past Drug Use History: None Reported - Past Family History Sister(s) Family Medical History: Deep Vein Thrombosis (DVT) Mother Family Medical History: Hyperlipidemia, Hypertension Additional Family Medical History / Comment(s): HEART PROBLEMS, IRREG RYTHM Father Family Medical History: Hyperlipidemia, Hypertension General Exam - General Exam Comments Initial Comments: General: The patient is awake and alert, mild to moderate distress because of persistent epigastric pain. Vital signs temperature 98.0 pulse 95 respiratory rate 20 pulse ox on percent room air blood pressure 168. Eye: Pupils are equal, , extra-ocular movements are intact; there is normal conjunctiva bilaterally. No signs of icterus. Ears, nose, mouth and throat: There are moist mucous membranes Neck: The neck is supple, there is no tenderness Cardiovascular: There is a regular rate and rhythm. No murmur, rub or gallop is appreciated. Respiratory: Lungs are clear to auscultation, respirations are non-labored, breath sounds are equal. No wheezes, stridor, rales, or rhonchi. Gastrointestinal: Epigastric pain persistent and getting worse over the past week. Diarrhea for 3 days. Decreased appetite. History bariatric, sleeve surgery. Back: There is no tenderness to palpation in the midline. There is no obvious deformity. No rashes noted. Musculoskeletal: Normal ROM, no tenderness, There is no pedal edema. There is no calf tenderness or swelling. Sensation intact. Neurological: No neuro deficits Skin: Skin is warm and dry and no rashes or lesions are noted. Limitations: no limitations Course Vital Signs 03/01/17 03/01/17 19:03 19:46 Temperature 98.0 F Pulse Rate 95 95 Respiratory 20 18 Rate Blood Pressure 168/97 136/80 O2 Sat by Pulse 100 98 Oximetry Medical Decision Making - Medical Decision Making Medical decision making; patient's white count 6.7 hemoglobin 12.7 hematocrit 38.3. His INR is 1.1, potassium 4.3 with a BUN of 15 creatinine 0.6 and GFR greater than 60. Glucose 85. Urine shows 7 red 2 whites. Urine test negative. CT of the abdomen was done and reviewed by radiologist; findings include lung bases are clear. There is no pleural effusion. There are surgical clips apparently from bariatric surgery in the stomach. Liver shows no focal defect. There are clips from cholecystectomy. Spleen and pancreas are normal. Bile ducts are not dilated. There is no adrenal mass. Kidney show satisfactory contrast opacification. There is no hydronephrosis. Significant tests normal thickening. There are no dilated loops bladder is almost empty. There is no ascites. There is no sign of pelvic mass. There is normal. I see no bony destructive process. Uterus anteverted. Impression negative computed tomography scan of the abdomen and pelvis. No adverse change compared to old exam. There is clearing of the problem cyst on the right ovary compared to the old exam. As read by Dr. Goldberg Patient continues have discomfort. Reexamination finds epigastric discomfort. No rebound. Case discussed with Dr. Garnica. Patient be admitted his service with consultation from Dr. dr boucher. Patient be kept nothing by mouth at this time IV fluids and repeat labs in the morning. - Lab Data Result diagrams: 03/01/17 19:35 03/01/17 19:35 Lab Results 03/01/17 03/01/17 03/01/17 Range/Units 19:35 19:35 19:35 WBC 6.7 (3.8-10.6) k/uL RBC 4.35 (3.80-5.40) m/uL Hgb 12.7 (11.4-16.0) gm/dL Hct 38.3 (34.0-46.0) % MCV 88.2 (80.0-100.0) fL MCH 29.3 (25.0-35.0) pg MCHC 33.2 (31.0-37.0) g/dL RDW 13.6 (11.5-15.5) % Plt Count 263 (150-450) k/uL Neutrophils % 65 % Lymphocytes % 26 % Monocytes % 4 % Eosinophils % 3 % Basophils % 0 % Neutrophils # 4.3 (1.3-7.7) k/uL Lymphocytes # 1.7 (1.0-4.8) k/uL Monocytes # 0.3 (0-1.0) k/uL Eosinophils # 0.2 (0-0.7) k/uL Basophils # 0.0 (0-0.2) k/uL PT (9.0-12.0) sec INR (<1.2) Sodium 143 (137-145) mmol/L Potassium 4.3 (3.5-5.1) mmol/L Chloride 108 H (98-107) mmol/L Carbon Dioxide 23 (22-30) mmol/L Anion Gap 12 mmol/L BUN 15 (7-17) mg/dL Creatinine 0.60 (0.52-1.04) mg/dL Est GFR (MDRD) Af Amer >60 (>60 ml/min/1.73 sqM) Est GFR (MDRD) Non-Af >60 (>60 ml/min/1.73 sqM) Glucose 85 (74-99) mg/dL Plasma Lactic Acid Roney (0.7-2.0) mmol/L Calcium 9.3 (8.4-10.2) mg/dL Total Bilirubin 0.6 (0.2-1.3) mg/dL AST 22 (14-36) U/L ALT 37 (9-52) U/L Alkaline Phosphatase 61 (38-126) U/L Total Protein 6.3 (6.3-8.2) g/dL Albumin 3.9 (3.5-5.0) g/dL Amylase 41 (30-110) U/L Lipase 85 (23-300) U/L Urine Color Yellow Urine Appearance Cloudy H (Clear) Urine pH 6.0 (5.0-8.0) Ur Specific [place] 1.028 (1.001-1.035) Urine Protein Trace H (Negative) Urine Glucose (UA) Negative (Negative) Urine Ketones 1+ H (Negative) Urine Blood Negative (Negative) Urine Nitrite Negative (Negative) Urine Bilirubin Negative (Negative) Urine Urobilinogen 2.0 (<2.0) mg/dL Ur Leukocyte Esterase Trace H (Negative) Urine RBC 7 H (0-5) /hpf Urine WBC 2 (0-5) /hpf Ur Squamous Epith Cells 7 H (0-4) /hpf Urine Bacteria Rare H (None) /hpf Urine Mucus Few H (None) /hpf Urine HCG, Qual (Not Detectd) 03/01/17 03/01/17 03/01/17 Range/Units 19:35 19:35 19:35 WBC (3.8-10.6) k/uL RBC (3.80-5.40) m/uL Hgb (11.4-16.0) gm/dL Hct (34.0-46.0) % MCV (80.0-100.0) fL MCH (25.0-35.0) pg MCHC (31.0-37.0) g/dL RDW (11.5-15.5) % Plt Count (150-450) k/uL Neutrophils % % Lymphocytes % % Monocytes % % Eosinophils % % Basophils % % Neutrophils # (1.3-7.7) k/uL Lymphocytes # (1.0-4.8) k/uL Monocytes # (0-1.0) k/uL Eosinophils # (0-0.7) k/uL Basophils # (0-0.2) k/uL PT 10.9 (9.0-12.0) sec INR 1.1 (<1.2) Sodium (137-145) mmol/L Potassium (3.5-5.1) mmol/L Chloride (98-107) mmol/L Carbon Dioxide (22-30) mmol/L Anion Gap mmol/L BUN (7-17) mg/dL Creatinine (0.52-1.04) mg/dL Est GFR (MDRD) Af Amer (>60 ml/min/1.73 sqM) Est GFR (MDRD) Non-Af (>60 ml/min/1.73 sqM) Glucose (74-99) mg/dL Plasma Lactic Acid Roney 1.0 (0.7-2.0) mmol/L Calcium (8.4-10.2) mg/dL Total Bilirubin (0.2-1.3) mg/dL AST (14-36) U/L ALT (9-52) U/L Alkaline Phosphatase (38-126) U/L Total Protein (6.3-8.2) g/dL Albumin (3.5-5.0) g/dL Amylase (30-110) U/L Lipase (23-300) U/L Urine Color Urine Appearance (Clear) Urine pH (5.0-8.0) Ur Specific Randolph (1.001-1.035) Urine Protein (Negative) Urine Glucose (UA) (Negative) Urine Ketones (Negative) Urine Blood (Negative) Urine Nitrite (Negative) Urine Bilirubin (Negative) Urine Urobilinogen (<2.0) mg/dL Ur Leukocyte Esterase (Negative) Urine RBC (0-5) /hpf Urine WBC (0-5) /hpf Ur Squamous Epith Cells (0-4) /hpf Urine Bacteria (None) /hpf Urine Mucus (None) /hpf Urine HCG, Qual Not Detected (Not Detectd) Disposition Clinical Impression: Abdominal pain Disposition: ADMITTED IP TO THIS HOSP Condition: Stable Referrals: Arley Allen MD [Primary Care Provider] - 1-2 days
[2017-03-01 19:58] LABS: Basophils % (A) 0 %; CH 28.7; CHCM 32.6; Eosinophils # (A) 0.2 k/uL (0-0.7); Eosinophils % (A) 3 %; HCT 38.3 % (34.0-46.0); HDW 2.48; HGB 12.7 gm/dL (11.4-16.0); Luc # (Auto) 0.19; Luc % (Auto) 3; Lymphocytes # (A) 1.7 k/uL (1.0-4.8); Lymphocytes % (A) 26 %; MCH 29.3 pg (25.0-35.0); MCHC 33.2 g/dL (31.0-37.0); MCV 88.2 fL (80.0-100.0); Monocytes # (A) 0.3 k/uL (0-1.0); Monocytes % (A) 4 %; Neutrophils # (A) 4.3 k/uL (1.3-7.7); Neutrophils % (A) 65 %; RBC 4.35 m/uL (3.80-5.40); RDW 13.6 % (11.5-15.5); WBC 6.7 k/uL (3.8-10.6); WBC (Perox) 6.95
[2017-03-01 20:02] LABS: Appearance,Urine Cloudy (Clear); Bacteria,Urine Rare /hpf; Bilirubin,Urine Negative (Negative); Glucose,Urine (UA) Negative (Negative); Ketones,Urine 1+ (Negative); Leukocyte Esterase,Urine Trace (Negative); Mucus,Urine Few /hpf; Nitrite,Urine Negative (Negative); Particle Count 6328; Protein,Urine Trace (Negative); RBC,Urine 7 /hpf (0-5); Specific Gravity,Urine 1.028 (1.001-1.035); Squamous Epithelial Cell,Urine 7 /hpf (0-4); UA Billing (MACRO vs. MICRO) MICRO; WBC,Urine 2 /hpf (0-5)
[2017-03-01 20:09] LABS: INR 1.1 (<1.2); Prothrombin Time 10.9 sec (9.0-12.0)
[2017-03-01 20:21] LABS: ALT 37 U/L (9-52); AST 22 U/L (14-36); Alkaline Phosphatase 61 U/L (38-126); Amylase 41 U/L (30-110); Anion Gap 12 mmol/L; Blood Urea Nitrogen 15 mg/dL (7-17); Calcium 9.3 mg/dL (8.4-10.2); Carbon Dioxide 23 mmol/L (22-30); Chloride 108 mmol/L (98-107); Glucose 85 mg/dL (74-99); Non-African American GFR(MDRD) >60 (>60 ml/min/1.73 sqM); Potassium 4.3 mmol/L (3.5-5.1); Sodium 143 mmol/L (137-145); Total Bilirubin 0.6 mg/dL (0.2-1.3); Total Protein 6.3 g/dL (6.3-8.2)
--- NOTE | 2017-03-01 20:35 | CT ---
EXAMINATION TYPE: CT abdomen pelvis w con DATE OF EXAM: 03/01/2017 COMPARISON: 01/15/2017 HISTORY: Mid upper abdominal pain x 1 week. Diarrhea x [address] DLP: 1532.00 mGycm Automated exposure control for dose reduction was used. TECHNIQUE: Helical acquisition of images was performed from the lung bases through the pelvis. CONTRAST: Performed with Oral Contrast and with IV Contrast, patient injected with 100 mL of Omnipaque 300. FINDINGS: Lung bases are clear. There is no pleural effusion. There are surgical clips apparently from bariatri c surgery in the stomach. Liver shows no focal defect. There are clips from cholecystectomy. Spleen a nd pancreas appear normal. Bile ducts are not dilated. There is no adrenal mass. Kidneys show satisfactory contrast opacification. There is no hydronephrosis. I see no intestinal wal l thickening. There are no dilated loops. Bladder is almost empty. There is no ascites. There is no s ign of a pelvic mass. Appendix appears normal. I see no bony destructive process. Uterus is anteverte d. IMPRESSION: NEGATIVE CT SCAN OF THE ABDOMEN AND PELVIS. NO ADVERSE CHANGE COMPARED TO OLD EXAM. THERE IS CLEARING OF THE PROBABLE 2 CM CYST ON THE RIGHT OVARY COMPARED TO OLD EXAM.
[2017-03-01] MEDS ORDERED: HYDROmorphone 1 MG/ML 1 ML SYRINGE IV PRN (21:04)
[2017-03-01] MEDS ORDERED: NALOXONE 0.4 MG/ML 1 ML VIAL IV PRN (21:04)
[2017-03-01] MEDS: SODIUM CHLORIDE 0.9% 1,000 ML IV SCH (21:35)
[2017-03-01] MEDS: PANTOPRAZOLE 40 MG/10 ML VIAL IV SCH (22:23)
[2017-03-02] MEDS: HYDROmorphone 1 MG/ML 1 ML SYRINGE IV PRN ×8 (00:30→23:22)
[2017-03-02] MEDS: SODIUM CHLORIDE 0.9% 1,000 ML IV SCH ×2 (04:35→11:59)
[2017-03-02 06:11] VITALS: BMI 36.4
[2017-03-02] MEDS: ONDANSETRON 4 MG/2 ML VIAL IVP PRN ×2 (06:29→16:23)
[2017-03-02 06:57] LABS: Basophils % (A) 0 %; CH 29.4; Eosinophils # (A) 0.1 k/uL (0-0.7); Eosinophils % (A) 2 %; HCT 35.9 % (34.0-46.0); HDW 2.43; HGB 11.1 gm/dL (11.4-16.0); Luc # (Auto) 0.11; Luc % (Auto) 2; Lymphocytes # (A) 1.3 k/uL (1.0-4.8); Lymphocytes % (A) 23 %; MCH 28.4 pg (25.0-35.0); MCHC 30.9 g/dL (31.0-37.0); MCV 92.1 fL (80.0-100.0); Mean Platelet Volume 7.6; Monocytes # (A) 0.3 k/uL (0-1.0); Monocytes % (A) 5 %; Neutrophils # (A) 3.9 k/uL (1.3-7.7); Neutrophils % (A) 67 %; WBC 5.8 k/uL (3.8-10.6)
[2017-03-02 07:14] LABS: ALT 35 U/L (9-52); AST 25 U/L (14-36); Alkaline Phosphatase 47 U/L (38-126); Anion Gap 5 mmol/L; Blood Urea Nitrogen 8 mg/dL (7-17); Calcium 8.2 mg/dL (8.4-10.2); Carbon Dioxide 25 mmol/L (22-30); Chloride 109 mmol/L (98-107); Glucose 84 mg/dL (74-99); Non-African American GFR(MDRD) >60 (>60 ml/min/1.73 sqM); Sodium 139 mmol/L (137-145); Total Bilirubin 0.7 mg/dL (0.2-1.3); Total Protein 5.2 g/dL (6.3-8.2)
[2017-03-02] MEDS: PANTOPRAZOLE 40 MG/10 ML VIAL IV SCH (09:24)
--- NOTE | 2017-03-02 10:33 | P.GSCN ---
History of Present Illness Consult date: 03/02/17 Reason for Consult: Abdominal pain. Requesting physician: Beto Erickson Jr History of present illness: Thank you very much for asking us to see this patient. She is a 26-year-old white female who had a 60 procedure in March 2016. She did fine until about a week ago when she developed some epigastric right upper quadrant discomfort that progressively worsened. Seem to be worse with eating food. No fever or chills. No radiation to the back. Some nausea but no vomiting. Did have several frequent the loose stools over the last 3 days. She did have in addition to the sleeve procedure laparoscopic cholecystectomy in the past and salpingo-oophorectomy. Denies any excessive alcohol intake infection doesn't drink. She cannot recall any precipitating factors. Does take ibuprofen 200 mg to 3 times a day as needed. Computed tomography scan was unremarkable for any significant pathology. In particular the liver and bile ducts looked normal with no distention. No fluid collection. No evidence of any bowel obstruction. Does have a history of elevated liver enzymes in the past. However her LFTs on admission are normal. Denies any urinary symptoms. Past history. As above. Otherwise fairly healthy. Does have a history of panic disorder. ALLERGIES. [place] the [place] of [place] with the amoxicillin. Hydrocodone causes nausea. Social history. Nonsmoker denies alcohol. On examination the patient is well-built well-nourished in no acute distress. She states the pain is a 7 on a scale 1-10. Did receive some Dilaudid within the last few minutes. We'll. Vitals are normal. She is anicteric. No color is good hydration is good. Her abdomen is quite soft. Trocar sites look fine with no evidence of hernia. No mass or organomegaly. Has some mild epigastric tenderness the and some tenderness in the right upper quadrant but no guarding or rebound or rigidity. No mass or organomegaly is noted. Urinalysis is unremarkable. CBC is normal. WBC is normal. LFTs are normal. CT was reviewed. Impression upper abdominal pain with nausea and some diarrhea. Possible gastroenteritis. Possible peptic ulcer disease. Rule out common bile duct pathology. Recommendation. Continued antiulcer regimen symptomatic treatment for now. Ultrasound evaluate her biliary tree mostly. May need EGD. We will follow with you. Past Medical History Past Medical History: No Reported History Additional Past Medical History / Comment(s): Elevated liver enzymes for unknown reason in September 2016 History of Any Multi-Drug Resistant Organisms: None Reported Past Surgical History: Bariatric Surgery, Cholecystectomy Additional Past Surgical History / Comment(s): Right fallopian tube removed May 2015, SLEEVE GASTRECTOMY 03/26/15, Choleycystectomy Past Anesthesia/Blood Transfusion Reactions: Postoperative Nausea & Vomiting ( PONV) Past Psychological History: Panic Disorder Additional Psychological History / Comment(s): PASSED OUT AT WORK AND HAD PANIC ATTACK. one time issue per pt. no problems since Smoking Status: Never smoker Past Alcohol Use History: None Reported Past Drug Use History: None Reported - Past Family History Sister(s) Family Medical History: Cancer, Deep Vein Thrombosis (DVT) Additional Family Medical History / Comment(s): Cervical cancer Mother Family Medical History: Hyperlipidemia, Hypertension Additional Family Medical History / Comment(s): HEART PROBLEMS, IRREG RYTHM Father Family Medical History: Hyperlipidemia, Hypertension Additional Family Medical History / Comment(s): Paternal grandfather had kidney disorder and colon cancer. Medications and Allergies Home Medications Medication Instructions Recorded Confirmed Type Ibuprofen [Motrin] 400 mg PO TID PRN 03/01/17 03/01/17 History Multivitamins, Thera [Multivitamin 1 tab PO BID 03/01/17 03/01/17 History (formulary)] Allergies Allergy/AdvReac Type Severity Reaction Status Date / Time amoxicillin [Amoxicillin] AdvReac Yeast Verified 03/01/17 19:05 Infection hydrocodone [From [place]] AdvReac Nausea & Verified 03/01/17 19:05 Vomiting Surgical - Exam Vital Signs Temp Pulse Resp BP Pulse Ox 98.0 F 95 20 168/97 100 03/01/17 19:03 03/01/17 19:03 03/01/17 19:03 03/01/17 19:03 03/01/17 19:03 Results - Labs 03/02/17 06:39 03/02/17 06:39 Abnormal Lab Results - Last 24 Hours (Table) 03/01/17 03/01/17 03/02/17 Range/Units 19:35 19:35 06:39 Hgb 11.1 L (11.4-16.0) gm/dL MCHC 30.9 L (31.0-37.0) g/dL Chloride 108 H (98-107) mmol/L Calcium (8.4-10.2) mg/dL Total Protein (6.3-8.2) g/dL Albumin (3.5-5.0) g/dL Urine Appearance Cloudy H (Clear) Urine Protein Trace H (Negative) Urine Ketones 1+ H (Negative) Ur Leukocyte Esterase Trace H (Negative) Urine RBC 7 H (0-5) /hpf Ur Squamous Epith Cells 7 H (0-4) /hpf Urine Bacteria Rare H (None) /hpf Urine Mucus Few H (None) /hpf 03/02/17 Range/Units 06:39 Hgb (11.4-16.0) gm/dL MCHC (31.0-37.0) g/dL Chloride 109 H (98-107) mmol/L Calcium 8.2 L (8.4-10.2) mg/dL Total Protein 5.2 L (6.3-8.2) g/dL Albumin 3.1 L (3.5-5.0) g/dL Urine Appearance (Clear) Urine Protein (Negative) Urine Ketones (Negative) Ur Leukocyte Esterase (Negative) Urine RBC (0-5) /hpf Ur Squamous Epith Cells (0-4) /hpf Urine Bacteria (None) /hpf Urine Mucus (None) /hpf Microbiology - Last 24 Hours (Table) 03/01/17 19:35 Urine Culture - Preliminary Urine,Voided Diabetes panel 03/01/17 03/02/17 Range/Units 19:35 06:39 Sodium 143 139 (137-145) mmol/L Potassium 4.3 4.0 (3.5-5.1) mmol/L Chloride 108 H 109 H (98-107) mmol/L Carbon Dioxide 23 25 (22-30) mmol/L BUN 15 8 (7-17) mg/dL Creatinine 0.60 0.58 (0.52-1.04) mg/dL Glucose 85 84 (74-99) mg/dL Calcium 9.3 8.2 L (8.4-10.2) mg/dL AST 22 25 (14-36) U/L ALT 37 35 (9-52) U/L Alkaline Phosphatase 61 47 (38-126) U/L Total Protein 6.3 5.2 L (6.3-8.2) g/dL Albumin 3.9 3.1 L (3.5-5.0) g/dL Calcium panel 03/01/17 03/02/17 Range/Units 19:35 06:39 Calcium 9.3 8.2 L (8.4-10.2) mg/dL Albumin 3.9 3.1 L (3.5-5.0) g/dL Pituitary panel 03/01/17 03/02/17 Range/Units 19:35 06:39 Sodium 143 139 (137-145) mmol/L Potassium 4.3 4.0 (3.5-5.1) mmol/L Chloride 108 H 109 H (98-107) mmol/L Carbon Dioxide 23 25 (22-30) mmol/L BUN 15 8 (7-17) mg/dL Creatinine 0.60 0.58 (0.52-1.04) mg/dL Glucose 85 84 (74-99) mg/dL Calcium 9.3 8.2 L (8.4-10.2) mg/dL Adrenal panel 03/01/17 03/02/17 Range/Units 19:35 06:39 Sodium 143 139 (137-145) mmol/L Potassium 4.3 4.0 (3.5-5.1) mmol/L Chloride 108 H 109 H (98-107) mmol/L Carbon Dioxide 23 25 (22-30) mmol/L BUN 15 8 (7-17) mg/dL Creatinine 0.60 0.58 (0.52-1.04) mg/dL Glucose 85 84 (74-99) mg/dL Calcium 9.3 8.2 L (8.4-10.2) mg/dL Total Bilirubin 0.6 0.7 (0.2-1.3) mg/dL AST 22 25 (14-36) U/L ALT 37 35 (9-52) U/L Alkaline Phosphatase 61 47 (38-126) U/L Total Protein 6.3 5.2 L (6.3-8.2) g/dL Albumin 3.9 3.1 L (3.5-5.0) g/dL
--- NOTE | 2017-03-02 12:42 | US ---
EXAMINATION TYPE: US abdomen limited DATE OF EXAM: 03/02/2017 COMPARISON: NONE CLINICAL HISTORY: RUQ pain. EXAM MEASUREMENTS: Liver Length: 15.9 cm Gallbladder Wall: Surgically absent cm 01/21/2017 CBD: 0.51 cm Right Kidney: 10.3 x 4.9 x 4.9 cm Pancreas: Tail obscured by overlying bowel gas Liver: wnl Gallbladder: Surgically absent CBD: wnl Right Kidney: No hydronephrosis or masses seen IMPRESSION: Cholecystectomy. No dilated ducts. No adverse change compared to old exam.
--- NOTE | 2017-03-02 14:03 | P.HPIM ---
History of Present Illness H&P Date: 03/02/17 Chief Complaint: Right upper quadrant abdominal pain This is a 26-year-old female known to the practice, employee here at [facility] who underwent a gastric sleeve bariatric procedure March of last year. Patient had no surgical complications or problems for the first 6 month, then she began starting having intermittent abdominal pain epigastric pain. She also underwent laparoscopic cholecystectomy. She has had multiple loose stools up until 10 per day over the last 4 or 5 days and she describes one episode of vomiting yesterday. Review of Systems Constitutional: Reports as per HPI, Reports poor appetite Ears, nose, mouth and throat: Reports as per HPI Cardiovascular: Reports as per HPI Respiratory: Reports as per HPI Gastrointestinal: Reports abdominal pain, Reports diarrhea, Reports dyspepsia, Reports heartburn, Reports vomiting Genitourinary: Reports as per HPI Menstruation: Reports as per HPI Musculoskeletal: Reports as per HPI Integumentary: Reports as per HPI Neurological: Reports as per HPI Psychiatric: Reports as per HPI Past Medical History Past Medical History: No Reported History Additional Past Medical History / Comment(s): Elevated liver enzymes for unknown reason in September 2016 History of Any Multi-Drug Resistant Organisms: None Reported Past Surgical History: Bariatric Surgery, Cholecystectomy Additional Past Surgical History / Comment(s): Right fallopian tube removed May 2015, SLEEVE GASTRECTOMY 03/26/15, Choleycystectomy Past Anesthesia/Blood Transfusion Reactions: Postoperative Nausea & Vomiting ( PONV) Past Psychological History: Panic Disorder Additional Psychological History / Comment(s): PASSED OUT AT WORK AND HAD PANIC ATTACK. one time issue per pt. no problems since Smoking Status: Never smoker Past Alcohol Use History: None Reported Past Drug Use History: None Reported - Past Family History Sister(s) Family Medical History: Cancer, Deep Vein Thrombosis (DVT) Additional Family Medical History / Comment(s): Cervical cancer Mother Family Medical History: Hyperlipidemia, Hypertension Additional Family Medical History / Comment(s): HEART PROBLEMS, IRREG RYTHM Father Family Medical History: Hyperlipidemia, Hypertension Additional Family Medical History / Comment(s): Paternal grandfather had kidney disorder and colon cancer. Medications and Allergies Home Medications Medication Instructions Recorded Confirmed Type Ibuprofen [Motrin] 400 mg PO TID PRN 03/01/17 03/01/17 History Multivitamins, Thera [Multivitamin 1 tab PO BID 03/01/17 03/01/17 History (formulary)] Allergies Allergy/AdvReac Type Severity Reaction Status Date / Time amoxicillin [Amoxicillin] AdvReac Yeast Verified 03/01/17 19:05 Infection hydrocodone [From [place]] AdvReac Nausea & Verified 03/01/17 19:05 Vomiting Physical Exam Osteopathic Statement: *. No significant issues noted on an osteopathic structural exam other than those noted in the History and Physical/Consult. Vitals: Vital Signs Temp Pulse Pulse Resp BP BP Pulse Ox 03/02/17 11:56 97.9 F 75 19 130/83 100 03/02/17 07:00 97.5 F L 65 18 98/56 100 03/01/17 21:40 97.8 F 78 20 125/79 99 03/01/17 21:02 95 18 134/86 95 03/01/17 19:46 95 18 136/80 98 03/01/17 19:03 98.0 F 95 20 168/97 100 Intake and Output 03/01/17 03/02/17 03/02/17 22:59 06:59 14:59 Intake Total 940 Output Total 500 Balance 940 -500 Intake: IV 940 Sodium Chloride 0.9% 1, 940 000 ml @ 125 mls/hr IV . Q8H [facility] Rx#:[id number] Output: Urine 500 Other: # Voids 1 Weight 93.34 kg General: [Patient awake, alert and oriented times 3. Patient in no acute distress.] HEENT: [PERRL. EOMI. No pharyngeal erythema or exudate.] Neck: [No adenopathy.] Cardiac: [Heart regular in rate and rhythm. No S3. No S4. No clicks, rubs. No murmur.] Lungs: [Clear to auscultation bilaterally.] Abdomen: [No mass. No organomegaly. Bowel sounds diminished and right upper quadrant tenderness epigastric tenderness to palpation Extremes: [No edema no cyanosis no claudication normal pulses] : [] Musculoskeletal: [No joint erythema, edema or tenderness.] Skin: [No rash.] Neurologic: [No lateralizing deficits. CN II - XII grossly intact.] Lymphatic: [No adenopathy.] Results CBC & Chem 7: 03/02/17 06:39 03/02/17 06:39 Labs: Abnormal Lab Results - Last 24 Hours (Table) 03/01/17 03/01/17 03/02/17 Range/Units 19:35 19:35 06:39 Hgb 11.1 L (11.4-16.0) gm/dL MCHC 30.9 L (31.0-37.0) g/dL Chloride 108 H (98-107) mmol/L Calcium (8.4-10.2) mg/dL Total Protein (6.3-8.2) g/dL Albumin (3.5-5.0) g/dL Urine Appearance Cloudy H (Clear) Urine Protein Trace H (Negative) Urine Ketones 1+ H (Negative) Ur Leukocyte Esterase Trace H (Negative) Urine RBC 7 H (0-5) /hpf Ur Squamous Epith Cells 7 H (0-4) /hpf Urine Bacteria Rare H (None) /hpf Urine Mucus Few H (None) /hpf 03/02/17 Range/Units 06:39 Hgb (11.4-16.0) gm/dL MCHC (31.0-37.0) g/dL Chloride 109 H (98-107) mmol/L Calcium 8.2 L (8.4-10.2) mg/dL Total Protein 5.2 L (6.3-8.2) g/dL Albumin 3.1 L (3.5-5.0) g/dL Urine Appearance (Clear) Urine Protein (Negative) Urine Ketones (Negative) Ur Leukocyte Esterase (Negative) Urine RBC (0-5) /hpf Ur Squamous Epith Cells (0-4) /hpf Urine Bacteria (None) /hpf Urine Mucus (None) /hpf Microbiology - Last 24 Hours (Table) 03/01/17 19:35 Urine Culture - Preliminary Urine,Voided Thrombosis Risk Factor Assmnt - DVT/VTE Prophylaxis DVT/VTE Prophylaxis: Low risk, early ambulation encouraged - Choose All That Apply Each Factor Represents 1 point: Obesity (BMI >25) Thrombosis Risk Factor Assessment Total Risk Factor Score: 1 Thrombosis Risk Factor Assessment Level: Low Risk Assessment and Plan (1) Abdominal pain Status: Acute Plan: Abdominal pain, epigastric tenderness, heartburn History of cholecystectomy History of laparoscopic sleeve gastrectomy Laboratory evaluation unremarkable CAT scan findings were unremarkable Abdominal ultrasound was also unremarkable Surgical evaluation reviewed We will reevaluate patient in the morning
[2017-03-03] MEDS: ONDANSETRON 4 MG/2 ML VIAL IVP PRN (00:19)
[2017-03-03] MEDS: SODIUM CHLORIDE 0.9% 1,000 ML IV SCH ×3 (01:08→12:21)
[2017-03-03] MEDS: HYDROmorphone 1 MG/ML 1 ML SYRINGE IV PRN ×4 (01:42→06:33)
[2017-03-03] MEDS: PANTOPRAZOLE 40 MG/10 ML VIAL IV SCH (08:43)
[2017-03-03 09:26] VITALS: RESP 19
--- NOTE | 2017-03-03 12:19 | P.PN ---
Progress Note - Text The patient continues complaining of epigastric pain. She states that somewhat improved but still moderate to severe. She did have a few small emesis last night but this morning she feels a lot better in terms of wanting to have some soft food to eat. The is passing some flatus. On examination the patient is awake alert in absolutely no distress. Vitals are normal temperature is normal. Abdomen is quite soft with no tenderness at all. No guarding or rebound no mass or organomegaly megaly or hernia noted. Ultrasound of the right upper quadrant was entirely normal. Impression epigastric pain etiology undetermined. Somewhat improved. Recommendation. Soft diet. If tolerated she can probably go home and have her EGD scheduled as an outpatient. If however she doesn't tolerate it and continues to have pain consider EGD as an inpatient.
[2017-03-03 13:10] VITALS: BP 141/72; PULSE 95; TEMP 98.8
--- NOTE | 2017-03-03 13:16 | P.DS ---
Providers Date of admission: 03/01/17 21:08 Expected date of discharge: 03/03/17 Attending physician: Beto rEickson Consults: 03/01/17 21:04 Consult Physician Stat Consulting Provider: Dariel Pina Consult Reason/Comments: Abdominal pain Do you want consulting provider notified?: Already Contacted Primary care physician: Arley Allen - Discharge Diagnosis(es) (1) Abdominal pain Current Visit: Yes Status: Acute Hospital Course: Patient was admitted via the emergency room with abdominal pain Negative CAT scan , a negative ultrasound Unremarkable laboratory evaluation Today patient states abdominal pain is not as significant as yesterday, she did not tolerate soft diet. Plan at this time is to discharge patient home on clear liquids, and schedule an EGD as an outpatient with Dr. Aaron Cruz M.D. at patient's request General: [Patient awake, alert and oriented times 3. Patient in no acute distress.] HEENT: [PERRL. EOMI. No pharyngeal erythema or exudate.] Neck: [No adenopathy.] Cardiac: [Heart regular in rate and rhythm. No S3. No S4. No clicks, rubs. No murmur.] Lungs: [Clear to auscultation bilaterally.] Abdomen: [No mass. No organomegaly. Bowel sounds presnt and normoactive in all 4 quadrants.] Soft nonsurgical abdomen Extremes: [No edema no cyanosis no claudication normal pulses] : [] Musculoskeletal: [No joint erythema, edema or tenderness.] Skin: [No rash.] Neurologic: [No lateralizing deficits. CN II - XII grossly intact.] Lymphatic: [No adenopathy.] Pertinent Studies: Negative CAT scan Negative ultrasound of the abdomen and pelvis Unremarkable laboratory evaluation Procedures: Will schedule EGD as outpatient Patient Condition at Discharge: Stable Plan - Discharge Summary New Discharge Prescriptions: New Ondansetron [Zuplenz] 8 mg PO TID #20 film Pantoprazole Sodium [Protonix] 40 mg PO DAILY #30 tablet.dr Ordonez Action Multivitamins, Thera [Multivitamin (formulary)] 1 tab PO BID Ibuprofen [Motrin] 400 mg PO TID PRN PRN Reason: Pain Discharge Medication List Ibuprofen [Motrin] 400 mg PO TID PRN 03/01/17 [History] Multivitamins, Thera [Multivitamin (formulary)] 1 tab PO BID 03/01/17 [History] Ondansetron [Zuplenz] 8 mg PO TID #20 film 03/03/17 [Rx] Pantoprazole Sodium [Protonix] 40 mg PO DAILY #30 tablet. 03/03/17 [Rx] Follow up Appointment(s)/Referral(s): Arley Allen MD [Primary Care Provider] - 1-2 days
== END 2017-03-03 13:57 | disposition home or self-care (01) | DRG 392 ==
LOC: EC 18:40 → 6PED 21:08
PROVIDERS: ADMIT Family Medicine; ATTEND Family Medicine
DX: R10.13 Epigastric pain (principal); R11.2 Nausea with vomiting, unspecified; R19.7 Diarrhea, unspecified; Z88.1 Allergy status to other antibiotic agents; Z90.49 Acquired absence of other specified parts of digestive tract; Z79.899 Other long term (current) drug therapy; Z88.5 Allergy status to narcotic agent
CPT/HCPCS: 36415; 74177; 76705; 80053; 81001; 81025; 82150; 83605; 83690; 85025; 85610; 87086; 96361; 96374; 96375; 96376; 99285

== ENCOUNTER → 2017-03-11 | Outpatient (CLI) | payer BC ==
[2017-03-11 16:32] VITALS: BP 133/78; PULSE 78; TEMP 98.3; BMI 35.3
--- NOTE | 2017-03-11 16:52 | P.HPBAR ---
Bariatric H&P - History & Physicial H&P Date: 03/11/17 History & Physicial: Visit/CC: folow up visit Patient initial contact: Initial weight: 138.062 kg Initial weight in pounds: 304.37 Height: 5 ft 3 in Initial BMI: 53.8 Last weight: Current weight: 90.537 kg Current weight in pounds: 199.60 Current BMI: 35.3 [place] body weight (based on NIH guidelines): 52.163 kg Excess body weight loss: 55.3% The patient is a 26 year-old F who presents for Bariatric Assessment. The patient had a recent hospital for abdominal pain last week. Apparently her pain resolved spontaneously. She has been taking Motrin for an inflamed wisdom tooth. She states taking 46 Motrin per day. Past Medical History Past Medical History: No Reported History Additional Past Medical History / Comment(s): Elevated liver enzymes for unknown reason in September 2016 History of Any Multi-Drug Resistant Organisms: None Reported Past Surgical History: Bariatric Surgery, Cholecystectomy Additional Past Surgical History / Comment(s): Right fallopian tube removed May 2015, SLEEVE GASTRECTOMY 03/26/15, Choleycystectomy Past Anesthesia/Blood Transfusion Reactions: Postoperative Nausea & Vomiting ( PONV) Past Psychological History: Panic Disorder Additional Psychological History / Comment(s): PASSED OUT AT WORK AND HAD PANIC ATTACK. one time issue per pt. no problems since Smoking Status: Never smoker Past Alcohol Use History: None Reported Past Drug Use History: None Reported - Past Family History Sister(s) Family Medical History: Cancer, Deep Vein Thrombosis (DVT) Additional Family Medical History / Comment(s): Cervical cancer Mother Family Medical History: Hyperlipidemia, Hypertension Additional Family Medical History / Comment(s): HEART PROBLEMS, IRREG RYTHM Father Family Medical History: Hyperlipidemia, Hypertension Additional Family Medical History / Comment(s): Paternal grandfather had kidney disorder and colon cancer. Surgical - Exam Vital Signs Temp Pulse BP 98.3 F 78 133/78 03/11/17 16:26 03/11/17 16:26 03/11/17 16:26 - General well developed, no distress - Eyes PERRL - Abdomen Abdomen: soft, non tender Bariatric Assessment & Plan Plan: The patient was scheduled for esophagram. She'll undergo EGD this week. I've instructed to stop Motrin and use Tylenol for pain. Patient most likely has some gastritis due to NSAID use Bariatric Checklist Checklist: Plan: Checklist: EGD: 1. Hiatal hernia: 2. H. Pylori: HgbA1c: Vitamin D: Smoking: Never smoker Primary care physician referral: Dr. Allen Psychiatry clearance: Cardiology clearance: Sleep study: Diet journal: VTE risk score: VTE risk level: Rehab needs at discharge:
== END | disposition home or self-care (01) ==
LOC: BARWHC3 15:37
PROVIDERS: ATTEND Surgery
DX: Z48.815 Encounter for surgical aftercare following surgery on the digestive system (principal); Z98.84 Bariatric surgery status; Z79.1 Long term (current) use of non-steroidal anti-inflammatories (NSAID)
CPT/HCPCS: 99211

== ENCOUNTER → 2017-03-12 | Outpatient (CLI) | payer BC ==
--- NOTE | 2017-03-12 13:27 | FL ---
EXAMINATION TYPE: FL barium swallow DATE OF EXAM: 03/12/2017 CLINICAL HISTORY: Vomiting and upper abdominal pain for one week. Heartburn and diarrhea. TECHNIQUE: A single contrast esophagram is performed utilizing air and barium. COMPARISON: None FINDINGS: The esophagus shows normal motility and emptying into the stomach during the gravity depend ent portion the examination. No evidence of hiatal hernia or stricture noted. During the gravity ind ependent portion of the examination there is delayed propulsion and spontaneous reflux to the level o f the distal thoracic esophagus. IMPRESSION: Delayed propulsion through the distal esophagus on the gravity independent portion of the examination with mild spontaneous reflux.
== END | disposition home or self-care (01) ==
LOC: RADFLMAIN 11:51
PROVIDERS: ATTEND Surgery
DX: K21.9 Gastro-esophageal reflux disease without esophagitis (principal)
CPT/HCPCS: 74220

== ENCOUNTER 2017-03-13 08:45 | Day surgery (SDC) | payer BC ==
[2017-03-12 13:24] VITALS: BMI 35.2
[2017-03-13 09:57] VITALS: TEMP 97.3
[2017-03-13] MEDS ORDERED: LACTATED RINGERS 1,000 ML IV ONE (10:09)
[2017-03-13] MEDS ORDERED: LIDOCAINE 1% INJ 10MG/ML (20 ML MDV) ONE (11:10)
[2017-03-13] MEDS ORDERED: PROPOFOL 10 MG/ML 20 ML VIAL IV ONE (11:10)
[2017-03-13] MEDS ORDERED: fentaNYL (PF) 50 MCG/ML 2 ML AMP ONE ×2 (11:10)
--- NOTE | 2017-03-13 11:16 | P.GSHP ---
History of Present Illness H&P Date: 03/13/17 Chief Complaint: Dysphagia This a 18-year-old female with a history of gastric sleeve. Patient's had problems intermittent dysphagia. She feels today for EGD. Her recent esophagram shows no evidence of obstruction or stricture. Past Medical History Past Medical History: No Reported History Additional Past Medical History / Comment(s): Elevated liver enzymes for unknown reason in September 2016, vomtiing,diarrhea and heartburn for past week. lost of 7 lb in past week History of Any Multi-Drug Resistant Organisms: None Reported Past Surgical History: Bariatric Surgery, Cholecystectomy Additional Past Surgical History / Comment(s): Right fallopian tube removed, gastric SLEEVE 03/26/15 Past Anesthesia/Blood Transfusion Reactions: Postoperative Nausea & Vomiting ( PONV) Smoking Status: Never smoker - Past Family History Sister(s) Family Medical History: Cancer, Deep Vein Thrombosis (DVT) Additional Family Medical History / Comment(s): Cervical cancer Mother Family Medical History: Hyperlipidemia Additional Family Medical History / Comment(s): HEART PROBLEMS, IRREG RYTHM Father Family Medical History: Hyperlipidemia, Hypertension Additional Family Medical History / Comment(s): Paternal grandfather had kidney disorder and colon cancer. Medications and Allergies Home Medications Medication Instructions Recorded Confirmed Type Multivitamins, Thera [Multivitamin 1 tab PO BID 03/01/17 03/13/17 History (formulary)] Ranitidine HCl [Zantac] 150 mg PO BID 03/12/17 03/13/17 History Allergies Allergy/AdvReac Type Severity Reaction Status Date / Time amoxicillin [Amoxicillin] AdvReac Yeast Verified 03/13/17 09:59 Infection hydrocodone [From [place]] AdvReac Nausea & Verified 03/13/17 09:59 Vomiting Surgical - Exam Vital Signs Temp Pulse Resp BP Pulse Ox 97.3 F L 62 20 124/88 99 03/13/17 09:55 03/13/17 09:55 03/13/17 09:55 03/13/17 09:55 03/13/17 09:55 - General well developed, no distress - Eyes PERRL - ENT normal pinna - Neck no masses - Respiratory normal expansion - Cardiovascular Rhythm: regular - Abdomen Abdomen: soft, non tender Assessment and Plan Plan: Dysphagia. We'll perform EGD.
--- NOTE | 2017-03-13 11:23 | P.OP ---
Date of Procedure: 03/13/17 Preoperative Diagnosis: Dysphagia Postoperative Diagnosis: Mild antral gastritis No evidence of stricture of gastric sleeve Slightly proximal dilated gastric pouch Procedure(s) Performed: EGD Implants: Anesthesia: MAC Surgeon: Cali Jha Pathology: other (Antrum) Condition: stable Disposition: PACU Indications for Procedure: Operative Findings: Description of Procedure: The patient's placed on the endoscopy table in the lateral position. She received IV sedation. The gastric scope was placed oropharynx passed in the esophagus and into the stomach. Scope was then placed through the pylorus. The first and second portion of the duodenum appeared normal. The scope was then brought back and the antrum and this appeared mildly inflamed. A biopsies was performed. The scope was then brought back through the gastric sleeve. There is no evidence of any stricture of the gastric sleeve. The scope was brought back to the cardia stomach and there appeared to be slightly dilated proximal gastric pouch. There is no incision any GE junction stricture or hiatal hernia. The distal esophagus appeared normal. The proximal esophagus. Normal. Scope was withdrawn for patient.
[2017-03-13] MEDS ORDERED: FAMOTIDINE 20 MG/2 ML VIAL IVP ONE (11:40)
[2017-03-13 11:41] VITALS: RESP 16
[2017-03-13 12:22] VITALS: BP 117/79; PULSE 60
[2017-03-13] MEDS ORDERED: METOCLOPRAMIDE 5 MG/ML 2 ML VIAL IVP ONE (12:45)
[2017-03-13] MEDS ORDERED: ONDANSETRON 4 MG/2 ML VIAL IVP ONE (12:50)
[2017-03-13] MEDS ORDERED: ACETAMINOPHEN IV (For NPO) 1,000 MG/100 ML VIAL IVPB ONE (12:52)
== END 2017-03-13 13:25 | disposition home or self-care (01) ==
LOC: ORWHC2ENDO 08:45
PROVIDERS: ATTEND Surgery
DX: K21.9 Gastro-esophageal reflux disease without esophagitis (principal); K29.50 Unspecified chronic gastritis without bleeding; Z98.84 Bariatric surgery status; Z79.899 Other long term (current) drug therapy; Z88.5 Allergy status to narcotic agent; Z88.0 Allergy status to penicillin
CPT/HCPCS: 81025; 88305; 88342; 43239; J2765; J2405; J2001; J3010; J0131; J2704

== ENCOUNTER → 2017-04-01 | Outpatient (CLI) | payer BC ==
[2017-04-01 11:47] LABS: Basophils % (A) 0 %; CH 29.4; CHCM 32.8; Eosinophils # (A) 0.1 k/uL (0-0.7); Eosinophils % (A) 1 %; HDW 2.56; HGB 12.9 gm/dL (11.4-16.0); Luc # (Auto) 0.14; Luc % (Auto) 3; Lymphocytes # (A) 1.2 k/uL (1.0-4.8); Lymphocytes % (A) 25 %; MCHC 32.2 g/dL (31.0-37.0); MCV 89.9 fL (80.0-100.0); Monocytes # (A) 0.3 k/uL (0-1.0); Monocytes % (A) 5 %; Neutrophils # (A) 3.2 k/uL (1.3-7.7); Neutrophils % (A) 66 %; RBC 4.44 m/uL (3.80-5.40); RDW 14.4 % (11.5-15.5); WBC 4.9 k/uL (3.8-10.6); WBC (Perox) 5.19
[2017-04-01 12:07] LABS: Anion Gap 8 mmol/L; Blood Urea Nitrogen 17 mg/dL (7-17); Carbon Dioxide 26 mmol/L (22-30); Chloride 108 mmol/L (98-107); Glucose 83 mg/dL (74-99); Non-African American GFR(MDRD) >60 (>60 ml/min/1.73 sqM); Potassium 4.4 mmol/L (3.5-5.1); Sodium 142 mmol/L (137-145)
== END ==
LOC: LABWHC1 11:23
PROVIDERS: ATTEND Family Medicine
DX: J00 Acute nasopharyngitis [common cold] (principal); R94.5 Abnormal results of liver function studies
CPT/HCPCS: 36415; 80048; 84439; 84443; 85025

== ENCOUNTER 2017-07-17 16:36 | Inpatient (IN) | payer BC ==
[2017-07-17] MEDS ORDERED: ONDANSETRON 4 MG/2 ML VIAL IVP STA (17:20)
[2017-07-17] MEDS ORDERED: HYDROmorphone 1 MG/ML 1 ML SYRINGE IVP STA (17:20)
[2017-07-17] MEDS ORDERED: SODIUM CHLORIDE 0.9% 1,000 ML IV STA (17:20)
--- NOTE | 2017-07-17 17:44 | ED ---
Abdominal Pain HPI - General Chief Complaint: Abdominal Pain Stated Complaint: Rt side Pain Time Seen by Provider: 07/17/17 17:01 Source: patient Mode of arrival: wheelchair Limitations: no limitations - History of Present Illness Initial Comments: 27-year-old female patient presents to the emergency department today with complaints of right upper quadrant abdominal pain. Patient states that she has had this pain on and off for the last couple of weeks. She states that over the last 4 days the pain has been worsening. States that she has had multiple episodes of vomiting over the last couple of days with this. Patient states that having normal bowel movements with no diarrhea, hematochezia, or melena. She denies any hematemesis. Patient has underwent gastric bypass surgery in 2016. She states that she has had episodes similar to this throughout the last year, had transaminitis and intractable nausea and vomiting. She states there were never able to find a cause for her elevated liver enzymes. She states that she has underwent multiple testing including MRI of the liver, pancreatic ducts, HIDA scan, and upper GI scopes without any diagnosis of what has been causing her pain. Patient is also status post cholecystectomy. Patient states that with this current episode she has been unable to keep any food or fluids down. States that the pain is currently constant, she describes it as a sharp pain. She denies any fevers or chills. She denies any hematuria, dysuria, urinary frequency, urinary urgency. Denies any chance of . Patient denies any recent rash, shortness breath, numbness, tingling, dizziness, weakness, headache, visual changes, or any other complaints. - Related Data Home Medications Medication Instructions Recorded Confirmed Multivitamins, Thera [Multivitamin 1 tab PO DAILY 03/01/17 07/17/17 (formulary)] Ranitidine HCl [Zantac] 150 mg PO BID 04/21/17 07/17/17 Diazepam [Valium] 10 mg PO HS 07/17/17 07/17/17 HYDROcodone/APAP 7.5-325MG [[place] 1 tab PO Q6HR PRN 07/17/17 07/17/17 7.5-325] Allergies Allergy/AdvReac Type Severity Reaction Status Date / Time amoxicillin [Amoxicillin] AdvReac Yeast Verified 07/17/17 17:08 Infection hydrocodone [From [place]] AdvReac Nausea & Verified 07/17/17 17:08 Vomiting Review of Systems ROS Statement: Those systems with pertinent positive or pertinent negative responses have been documented in the HPI. ROS Other: All systems not noted in ROS Statement are negative. Past Medical History Past Medical History: No Reported History Additional Past Medical History / Comment(s): Elevated liver enzymes for unknown reason in September 2016, gall stones History of Any Multi-Drug Resistant Organisms: None Reported Past Surgical History: Cholecystectomy Additional Past Surgical History / Comment(s): Right fallopian tube removed May 2015, SLEEVE GASTRECTOMY 03/26/15 Past Anesthesia/Blood Transfusion Reactions: Postoperative Nausea & Vomiting ( PONV) Past Psychological History: Panic Disorder Smoking Status: Never smoker Past Alcohol Use History: None Reported Past Drug Use History: None Reported - Past Family History Sister(s) Family Medical History: Cancer, Deep Vein Thrombosis (DVT) Additional Family Medical History / Comment(s): Cervical cancer Mother Family Medical History: Hyperlipidemia Additional Family Medical History / Comment(s): HEART PROBLEMS, IRREG RYTHM Father Family Medical History: Hyperlipidemia, Hypertension Additional Family Medical History / Comment(s): Paternal grandfather had kidney disorder and colon cancer. General Exam Limitations: no limitations General appearance: alert, in no apparent distress, other (This is a well- developed, well-nourished adult female patient in no acute distress. Vital signs upon presentation were temperature 98.0F, pulse 84, respirations 16, blood pressure 127/70, pulse ox 100% on room air.) Eye exam: Present: normal appearance, PERRL, EOMI. Absent: scleral icterus, conjunctival injection, periorbital swelling ENT exam: Present: normal exam, normal oropharynx, mucous membranes moist Respiratory exam: Present: normal lung sounds bilaterally. Absent: respiratory distress, wheezes, rales, rhonchi, stridor Cardiovascular Exam: Present: regular rate, normal rhythm, normal heart sounds. Absent: systolic murmur, diastolic murmur, rubs, gallop, clicks GI/Abdominal exam: Present: soft, tenderness (Mid epigastric tenderness, right upper quadrant tenderness), normal bowel sounds. Absent: distended, guarding, rebound, rigid Neurological exam: Present: alert, oriented X3, CN II-XII intact Psychiatric exam: Present: normal affect, normal mood Skin exam: Present: warm, dry, intact, normal color. Absent: rash Course Vital Signs 07/17/17 07/17/17 07/17/17 16:44 18:58 20:30 Temperature 98 F 97.8 F 97.9 F Pulse Rate 84 86 88 Respiratory 16 18 16 Rate Blood Pressure 127/70 133/65 124/67 O2 Sat by Pulse 100 100 97 Oximetry Medical Decision Making - Medical Decision Making 27-year-old female patient percents to the emergency department today for complaints of right upper quadrant abdominal pain. Physical examination did reveal some tenderness to the right upper quadrant and the mid epigastric region. Labs reviewed and are unremarkable. Urinalysis was negative for any acute infection. HCG was not detected. KUB x-ray of the abdomen was negative for any acute process. Patient does have a history of chronic abdominal pain, has had idiopathic transaminitis and intractable nausea and vomiting in the past. They were unable to find a cause for her symptoms. Patient reports that she has too uncomfortable to be discharged home at this time. She does follow with Dr. Haile outpatient. I did speak to Alonzo Scott for Dr. Pollock who accepts patient. We will consult Dr. Haile. Patient has been informed of plan. - Lab Data Result diagrams: 07/17/17 17:49 07/17/17 17:49 Lab Results 07/17/17 07/17/17 07/17/17 Range/Units 17:49 17:49 17:49 WBC 6.1 (3.8-10.6) k/uL RBC 4.08 (3.80-5.40) m/uL Hgb 11.6 (11.4-16.0) gm/dL Hct 36.0 (34.0-46.0) % MCV 88.1 (80.0-100.0) fL MCH 28.3 (25.0-35.0) pg MCHC 32.2 (31.0-37.0) g/dL RDW 14.4 (11.5-15.5) % Plt Count 225 (150-450) k/uL Neutrophils % 53 % Lymphocytes % 28 % Monocytes % 5 % Eosinophils % 9 % Basophils % 1 % Neutrophils # 3.3 (1.3-7.7) k/uL Lymphocytes # 1.7 (1.0-4.8) k/uL Monocytes # 0.3 (0-1.0) k/uL Eosinophils # 0.5 (0-0.7) k/uL Basophils # 0.0 (0-0.2) k/uL Sodium 142 (137-145) mmol/L Potassium 4.1 (3.5-5.1) mmol/L Chloride 107 (98-107) mmol/L Carbon Dioxide 26 (22-30) mmol/L Anion Gap 9 mmol/L BUN 17 (7-17) mg/dL Creatinine 0.60 (0.52-1.04) mg/dL Est GFR (MDRD) Af Amer >60 (>60 ml/min/1.73 sqM) Est GFR (MDRD) Non-Af >60 (>60 ml/min/1.73 sqM) Glucose 83 (74-99) mg/dL Calcium 8.8 (8.4-10.2) mg/dL Total Bilirubin 0.3 (0.2-1.3) mg/dL AST 22 (14-36) U/L ALT 44 (9-52) U/L Alkaline Phosphatase 64 (38-126) U/L Total Protein 6.0 L (6.3-8.2) g/dL Albumin 3.4 L (3.5-5.0) g/dL Amylase 44 (30-110) U/L Lipase 138 (23-300) U/L Urine Color Yellow Urine Appearance Cloudy H (Clear) Urine pH 6.5 (5.0-8.0) Ur Specific [place] 1.022 (1.001-1.035) Urine Protein Trace H (Negative) Urine Glucose (UA) Negative (Negative) Urine Ketones Negative (Negative) Urine Blood Negative (Negative) Urine Nitrite Negative (Negative) Urine Bilirubin Negative (Negative) Urine Urobilinogen <2.0 (<2.0) mg/dL Ur Leukocyte Esterase Negative (Negative) Urine RBC 1 (0-5) /hpf Urine WBC 3 (0-5) /hpf Ur Squamous Epith Cells 7 H (0-4) /hpf Urine Mucus Rare H (None) /hpf Urine HCG, Qual (Not Detectd) 07/17/17 Range/Units 18:44 WBC (3.8-10.6) k/uL RBC (3.80-5.40) m/uL Hgb (11.4-16.0) gm/dL Hct (34.0-46.0) % MCV (80.0-100.0) fL MCH (25.0-35.0) pg MCHC (31.0-37.0) g/dL RDW (11.5-15.5) % Plt Count (150-450) k/uL Neutrophils % % Lymphocytes % % Monocytes % % Eosinophils % % Basophils % % Neutrophils # (1.3-7.7) k/uL Lymphocytes # (1.0-4.8) k/uL Monocytes # (0-1.0) k/uL Eosinophils # (0-0.7) k/uL Basophils # (0-0.2) k/uL Sodium (137-145) mmol/L Potassium (3.5-5.1) mmol/L Chloride (98-107) mmol/L Carbon Dioxide (22-30) mmol/L Anion Gap mmol/L BUN (7-17) mg/dL Creatinine (0.52-1.04) mg/dL Est GFR (MDRD) Af Amer (>60 ml/min/1.73 sqM) Est GFR (MDRD) Non-Af (>60 ml/min/1.73 sqM) Glucose (74-99) mg/dL Calcium (8.4-10.2) mg/dL Total Bilirubin (0.2-1.3) mg/dL AST (14-36) U/L ALT (9-52) U/L Alkaline Phosphatase (38-126) U/L Total Protein (6.3-8.2) g/dL Albumin (3.5-5.0) g/dL Amylase (30-110) U/L Lipase (23-300) U/L Urine Color Urine Appearance (Clear) Urine pH (5.0-8.0) Ur Specific [place] (1.001-1.035) Urine Protein (Negative) Urine Glucose (UA) (Negative) Urine Ketones (Negative) Urine Blood (Negative) Urine Nitrite (Negative) Urine Bilirubin (Negative) Urine Urobilinogen (<2.0) mg/dL Ur Leukocyte Esterase (Negative) Urine RBC (0-5) /hpf Urine WBC (0-5) /hpf Ur Squamous Epith Cells (0-4) /hpf Urine Mucus (None) /hpf Urine HCG, Qual Not Detected (Not Detectd) - Radiology Data Radiology results: report reviewed, image reviewed Disposition Clinical Impression: Intractable abdominal pain Disposition: ADMITTED IP TO THIS [facility] Condition: Serious Decision to Admit Reason: Admit from EC Decision Date: 07/17/17 Decision Time: 19:39
[2017-07-17 18:04] LABS: Appearance,Urine Cloudy (Clear); Basophils % (A) 1 %; Bilirubin,Urine Negative (Negative); Blood,Urine Negative (Negative); Color,Urine Yellow; Eosinophils # (A) 0.5 k/uL (0-0.7); Eosinophils % (A) 9 %; Glucose,Urine (UA) Negative (Negative); HGB 11.6 gm/dL (11.4-16.0); Ketones,Urine Negative (Negative); Leukocyte Esterase,Urine Negative (Negative); Lymphocytes # (A) 1.7 k/uL (1.0-4.8); Lymphocytes % (A) 28 %; MCH 28.3 pg (25.0-35.0); MCHC 32.2 g/dL (31.0-37.0); MCV 88.1 fL (80.0-100.0); Mean Platelet Volume 7.7; Monocytes # (A) 0.3 k/uL (0-1.0); Monocytes % (A) 5 %; Mucus,Urine Rare /hpf; Neutrophils # (A) 3.3 k/uL (1.3-7.7); Neutrophils % (A) 53 %; Nitrite,Urine Negative (Negative); PH, Urine 6.5 (5.0-8.0); Platelet Count 225 k/uL (150-450); Protein,Urine Trace (Negative); RBC 4.08 m/uL (3.80-5.40); RBC,Urine 1 /hpf (0-5); RDW 14.4 % (11.5-15.5); Specific Gravity,Urine 1.022 (1.001-1.035); Squamous Epithelial Cell,Urine 7 /hpf (0-4); Urobilinogen,Urine <2.0 mg/dL (<2.0); WBC 6.1 k/uL (3.8-10.6); WBC,Urine 3 /hpf (0-5)
[2017-07-17 18:19] LABS: ALT 44 U/L (9-52); AST 22 U/L (14-36); Albumin 3.4 g/dL (3.5-5.0); Alkaline Phosphatase 64 U/L (38-126); Amylase 44 U/L (30-110); Anion Gap 9 mmol/L; Blood Urea Nitrogen 17 mg/dL (7-17); Calcium 8.8 mg/dL (8.4-10.2); Carbon Dioxide 26 mmol/L (22-30); Chloride 107 mmol/L (98-107); Glucose 83 mg/dL (74-99); Lipase 138 U/L (23-300); Potassium 4.1 mmol/L (3.5-5.1); Sodium 142 mmol/L (137-145); Total Bilirubin 0.3 mg/dL (0.2-1.3)
--- NOTE | 2017-07-17 19:17 | XR ---
EXAMINATION TYPE: XR KUB DATE OF EXAM: 07/17/2017 COMPARISON: 01/23/2017 HISTORY: Pain and vomiting TECHNIQUE: 2 views FINDINGS: There are clips from cholecystectomy. Bowel gas pattern is normal. There is no sign of inte stinal obstruction or pneumoperitoneum. Fecal pattern is normal. There are no pathologic calcificatio ns over the kidneys. Lung bases are clear. IMPRESSION: Nonacute abdomen. No change.
[2017-07-17] MEDS ORDERED: NALOXONE 0.4 MG/ML 1 ML VIAL IV PRN (19:39)
[2017-07-17] MEDS: HYDROmorphone 1 MG/ML 1 ML SYRINGE IVP PRN (20:17)
[2017-07-17] MEDS: SODIUM CHLORIDE 0.9% 1,000 ML IV SCH (20:20)
[2017-07-17] MEDS: DIAZEPAM 5 MG TAB PO SCH (21:21)
[2017-07-17] MEDS: KETOROLAC 30 MG/ML 1 ML VIAL IVP PRN (21:21)
[2017-07-17] MEDS: FAMOTIDINE 20 MG TAB PO SCH (21:21)
[2017-07-17] MEDS ORDERED: HYDROcodone/APAP 7.5-325MG 1 EACH TAB PO PRN (23:04)
[2017-07-18] MEDS: HYDROmorphone 1 MG/ML 1 ML SYRINGE IVP PRN ×6 (00:08→18:41)
[2017-07-18] MEDS: KETOROLAC 30 MG/ML 1 ML VIAL IVP PRN ×2 (04:28→21:06)
[2017-07-18] MEDS: SODIUM CHLORIDE 0.9% 1,000 ML IV SCH ×2 (04:28→15:05)
--- NOTE | 2017-07-18 05:32 | HP ---
HISTORY AND PHYSICAL DATE OF SERVICE: 07/17/2017 CHIEF COMPLAINT: Abdominal pain. HISTORY OF PRESENT ILLNESS: This 27-year-old woman with a past medical history of multiple medical problems including history of sleeve gastrectomy 03/16/2015 and history of the elevated liver enzymes, history of panic disorder being followed by Dr. Jha in the outpatient setting was complaining abdominal pain. Patient also had cholecystectomy also. The pain is mainly felt on the upper part of the chest and below the breast, which is ongoing for the last several weeks which was intolerable last night. The patient came to [facility] and admitted for further evaluation and treatment. In the emergency room, evaluation showed normal CBC, CMP, and as for the urine was cloudy. The patient also had abdominal x-ray, KUB x-ray, which did not show any acute abnormality. The patient also had further evaluation recently including MRCP in the month of April showed no evidence of choledocholithiasis and no other findings as well. A CAT scan of the abdomen and pelvis also done during the same time during the hospitalization which showed mild hepatomegaly. There is no history of fever, rigors or chills. No history of headache, loss of consciousness, seizures. PAST MEDICAL HISTORY: History of gastric bypass sleeve gastrectomy, cholecystectomy, and elevated LFTs. MEDICATIONS: Medications prior to admission: 2. Zantac 150 mg b.i.d. 3. Multivitamins. 4. Valium 10 mg q.h.s. ALLERGIES: AMOXICILLIN. FAMILY HISTORY: History of cancer, DVT, cervical cancer in the family. SOCIAL HISTORY: No history of smoking. No history of alcohol. REVIEW OF SYSTEMS: ENT: No diminished hearing or diminished vision. CARDIOVASCULAR SYSTEM: No angina. RESPIRATORY SYSTEM: as mentioned earlier. GI: As mentioned earlier. : No dysuria. NERVOUS SYSTEM: No numbness or weakness. ALLERGY/IMMUNOLOGY: No history of asthma or hayfever. MUSCULOSKELETAL: As mentioned earlier. HEMATOLOGY/ONCOLOGY: No history of anemia. ENDOCRINE: No history of diabetes or hypothyroidism. CONSTITUTIONAL: As mentioned earlier. DERMATOLOGY: Negative. RHEUMATOLOGY: Negative. PSYCHIATRY: As mentioned earlier. PHYSICAL EXAMINATION: The patient is alert and oriented x3. Pulse 88, blood pressure 124/67, respirations 16, temperature 97.9, pulse ox 97% in room air. HEENT: Conjunctivae normal. Oral mucosa moist. Neck is no jugular venous distention. No carotid bruit. No lymph node enlargement. CARDIOVASCULAR: S1 and S2 muffled. RESPIRATORY: Breath sounds diminished at the base. No rhonchi, no crackles. ABDOMEN: Soft, obese, mild diffuse tenderness present. No guarding. No rigidity. No mass palpable. LEGS: No edema, no swelling. NERVOUS SYSTEM: Higher functions as mentioned. Moves all 4 limbs. No focal motor or sensory deficits. LYMPHATICS: No lymphadenopathy of the neck, axillae or groin. SKIN: No ulcer, rash or bleeding. LABS: Labs are CBC, CMP within normal limits and HCG is negative. UA noted. ASSESSMENT: 1. Abdominal pain, upper abdominal acute on chronic abdominal pain. Etiology undetermined, possible acute gastritis. 2. Status post gastric sleeve surgery. 3. Previous negative MRCP. 4. History of elevated LFTs, currently normal. 5. History of panic disorder. 6. FULL CODE. RECOMMENDATIONS AND DISCUSSION: In this 27-year-old woman who presented with multiple complex medical issues, will monitor the patient closely. Continue the current medications. Continue symptomatic treatment. We will resume the home medications also. DVT prophylaxis. Otherwise surgical evaluation and gastroenterology evaluation. Repeat labs. Prognosis guarded because of multiple complex medical issues. Further recommendations to follow. Discussed with patient. Recommend close follow up with Dr. Ruiz in the outpatient setting also. MMSHANIQUAL / IJN: [id number] / MTDBeatriz
[2017-07-18 08:01] LABS: Basophils % (A) 1 %; Eosinophils # (A) 0.4 k/uL (0-0.7); Eosinophils % (A) 8 %; HGB 10.5 gm/dL (11.4-16.0); Lymphocytes # (A) 1.3 k/uL (1.0-4.8); Lymphocytes % (A) 28 %; MCH 27.7 pg (25.0-35.0); MCHC 29.9 g/dL (31.0-37.0); MCV 92.6 fL (80.0-100.0); Mean Platelet Volume 7.5; Monocytes # (A) 0.3 k/uL (0-1.0); Monocytes % (A) 6 %; Neutrophils # (A) 2.7 k/uL (1.3-7.7); Neutrophils % (A) 55 %; Platelet Count 196 k/uL (150-450); RBC 3.78 m/uL (3.80-5.40); RDW 14.6 % (11.5-15.5); WBC 4.9 k/uL (3.8-10.6)
[2017-07-18] MEDS: FAMOTIDINE 20 MG TAB PO SCH ×2 (08:06→21:06)
[2017-07-18 08:31] LABS: ALT 48 U/L (9-52); AST 34 U/L (14-36); Albumin 2.8 g/dL (3.5-5.0); Alkaline Phosphatase 59 U/L (38-126); Anion Gap 5 mmol/L; Blood Urea Nitrogen 15 mg/dL (7-17); Calcium 8.8 mg/dL (8.4-10.2); Carbon Dioxide 27 mmol/L (22-30); Chloride 108 mmol/L (98-107); Glucose 77 mg/dL (74-99); Potassium 4.2 mmol/L (3.5-5.1); Sodium 140 mmol/L (137-145); Total Bilirubin 0.5 mg/dL (0.2-1.3); Total Protein 5.1 g/dL (6.3-8.2)
[2017-07-18] MEDS: MULTIVITAMINS, THERA 1 EACH TAB PO SCH (11:50)
--- NOTE | 2017-07-18 12:17 | P.CONS ---
History of Present Illness - Reason for Consult Consult date: 07/18/17 Abdominal pain Requesting physician: Reta Pollock - History of Present Illness 27-year-old female with a history of sleeve gastrectomy, laparoscopic adhesive lysis performed both by Dr. Jha, cholecystectomy well-known to the GI service patient of Dr. Haile. Presents with acute on chronic abdominal pain. Patient states since her cholecystectomy she has experienced persistent upper abdominal pain for the last several months with change in bowel habits more constipation. Pain is localized the midepigastrium radiating around to the bilateral upper abdomen. In the past she's had transient elevation of her liver enzymes. MRI/CT abdomen April 2017 unremarkable. EGD w/Dr. Jha February 2017 mild antral gastritis. She was referred to a tertiary center in regards to intermittent elevated transaminases over the last several months and underwent an EUS April with unremarkable findings. Recent left foot surgery was taking Motrin but it's been more than a few weeks since her last dose. Denies hematemesis hematochezia melena. Slow persistent weight loss over the last several months. Admission white count 6.1. Hemoglobin 11.6. LFTs within normal limits. Lipase 138. HCG not detected. KUB nonacute abdomen. No change. Review of Systems Constitutional: Denies fever, chills, sweats, weight gain, or loss. HEENT: Negative for migraines, blurred vision or loss, earaches, drainage, tinnitus, oral mucosal lesions, dysphagia, or odynophagia. CARDIAC: Negative for chest pain, arrhythmias, or palpitation. RESPIRATORY: Negative for shortness of breath, hemoptysis, cough, or sputum production. GI: See HPI for pertinent findings. : Negative for hematuria, urgency, frequency, polyuria, or dysuria. GYNc: Denies possibility of . Negative vaginal discharge. MUSCULOSKELETAL: Negative for muscle aches, swelling, arthritis, and arthralgias. NEUROLOGIC: Negative for stroke or TIA. ENDOCRINE: Negative for thyroid problems. SKIN: Negative for rash or itching. PSYCHIATRIC: Negative history for depression and anxiety Past Medical History Past Medical History: No Reported History Additional Past Medical History / Comment(s): Elevated liver enzymes for unknown reason in September 2016, gall stones History of Any Multi-Drug Resistant Organisms: None Reported Past Surgical History: Cholecystectomy Additional Past Surgical History / Comment(s): Right fallopian tube removed May 2015, SLEEVE GASTRECTOMY 03/26/15 Past Anesthesia/Blood Transfusion Reactions: Postoperative Nausea & Vomiting ( PONV) Past Psychological History: Panic Disorder Smoking Status: Never smoker Past Alcohol Use History: None Reported Past Drug Use History: None Reported - Past Family History Sister(s) Family Medical History: Cancer, Deep Vein Thrombosis (DVT) Additional Family Medical History / Comment(s): Cervical cancer Mother Family Medical History: Hyperlipidemia Additional Family Medical History / Comment(s): HEART PROBLEMS, IRREG RYTHM Father Family Medical History: Hyperlipidemia, Hypertension Additional Family Medical History / Comment(s): Paternal grandfather had kidney disorder and colon cancer. Medications and Allergies Home Medications Medication Instructions Recorded Confirmed Type Multivitamins, Thera [Multivitamin 1 tab PO DAILY 03/01/17 07/17/17 History (formulary)] Ranitidine HCl [Zantac] 150 mg PO BID 04/21/17 07/17/17 History Diazepam [Valium] 10 mg PO HS 07/17/17 07/17/17 History HYDROcodone/APAP 7.5-325MG [[place] 1 tab PO Q6HR PRN 07/17/17 07/17/17 History 7.5-325] Allergies Allergy/AdvReac Type Severity Reaction Status Date / Time amoxicillin [Amoxicillin] AdvReac Yeast Verified 07/17/17 17:08 Infection hydrocodone [From [place]] AdvReac Nausea & Verified 07/17/17 17:08 Vomiting Physical Exam Vitals: Vital Signs Temp Pulse Pulse Resp BP BP Pulse Ox 07/18/17 11:22 98.0 F 79 16 106/62 97 07/18/17 08:10 97.8 F 82 16 108/62 96 07/18/17 04:32 14 07/17/17 20:44 97.3 F L 78 20 132/89 96 07/17/17 20:30 97.9 F 88 16 124/67 97 07/17/17 18:58 97.8 F 86 18 133/65 100 07/17/17 16:44 98 F 84 16 127/70 100 Intake and Output 07/17/17 07/18/17 07/18/17 22:59 06:59 14:59 Intake Total 0 0 Output Total 300 300 Balance -300 0 -300 Intake: Oral 0 0 Output: Urine 300 300 Other: Voiding Method Toilet Weight 85.275 kg General appearance: The patient is alert, oriented, in no acute distress. HET: Head is normocephalic and atraumatic. Pupils are equal and reactive. Oropharynx is clear without lesions. Neck: Supple without lymphadenopathy. Trachea midline. Heart: S1 S2. Regular rate and rhythm. Lungs: No crackles or wheezes are heard. Abdomen: Soft, tenderness midepigastrium left upper quadrant, nondistended with bowel sounds. No peritoneal signs. No palpable organomegaly or masses. Extremities: Normal skin color and turgor. No cyanosis, rash, ulceration, clubbing, or edema. Radial and pedal pulses are 2/4 bilaterally. Neurological: No focal deficits. Strength and sensation are grossly intact. Results CBC & Chem 7: 07/18/17 06:58 07/18/17 06:58 Labs: Abnormal Lab Results - Last 24 Hours (Table) 07/17/17 07/17/17 07/18/17 Range/Units 17:49 17:49 06:58 RBC 3.78 L (3.80-5.40) m/uL Hgb 10.5 L (11.4-16.0) gm/dL MCHC 29.9 L (31.0-37.0) g/dL Chloride (98-107) mmol/L Total Protein 6.0 L (6.3-8.2) g/dL Albumin 3.4 L (3.5-5.0) g/dL Urine Appearance Cloudy H (Clear) Urine Protein Trace H (Negative) Ur Squamous Epith Cells 7 H (0-4) /hpf Urine Mucus Rare H (None) /hpf 07/18/17 Range/Units 06:58 RBC (3.80-5.40) m/uL Hgb (11.4-16.0) gm/dL MCHC (31.0-37.0) g/dL Chloride 108 H (98-107) mmol/L Total Protein 5.1 L (6.3-8.2) g/dL Albumin 2.8 L (3.5-5.0) g/dL Urine Appearance (Clear) Urine Protein (Negative) Ur Squamous Epith Cells (0-4) /hpf Urine Mucus (None) /hpf Abdominal x-ray: report reviewed (Dr. Vallejo) Assessment and Plan (1) Abdominal pain Narrative/Plan: Unclear etiology with extensive workup over the last several months including tertiary care center evaluation with unremarkable findings. History of sleeve gastrectomy cholecystectomy. Current Visit: No Status: Acute Code(s): R10.9 - UNSPECIFIED ABDOMINAL PAIN SNOMED Code(s): 99763344 Plan: 1. Agree with general surgical evaluation unsure patient's symptomology is mechanical in nature or not. We'll defer to general surgery for further workup. Endoscopic exams are not planned at this time. Continue GI prophylaxis. Diet as tolerated after evaluated by general surgery if agreeable. Thank you for this kind referral and the opportunity to participate in the care of your patient. This consultation was discussed with Dr. Vallejo. The impression and plan of care have been directed as dictated.
[2017-07-18] MEDS: ONDANSETRON 4 MG/2 ML VIAL IVP PRN (15:11)
--- NOTE | 2017-07-18 18:22 | P.GSCN ---
History of Present Illness Consult date: 07/18/17 Reason for Consult: Abdominal pain, nausea History of present illness: 's is a 27-year-old female who is well-known to myself. Patient has a previous history of sleeve gastrectomy. Patient lost approximately 120 pounds since her surgery. The patient states she's had a one-week history of epigastric abdominal pain. The pain radiates to the right left upper quadrant. She's also had some nausea. Past Medical History Past Medical History: No Reported History Additional Past Medical History / Comment(s): Elevated liver enzymes for unknown reason in September 2016, gall stones History of Any Multi-Drug Resistant Organisms: None Reported Past Surgical History: Cholecystectomy Additional Past Surgical History / Comment(s): Right fallopian tube removed May 2015, SLEEVE GASTRECTOMY 03/26/15 Past Anesthesia/Blood Transfusion Reactions: Postoperative Nausea & Vomiting ( PONV) Past Psychological History: Panic Disorder Smoking Status: Never smoker Past Alcohol Use History: None Reported Past Drug Use History: None Reported - Past Family History Sister(s) Family Medical History: Cancer, Deep Vein Thrombosis (DVT) Additional Family Medical History / Comment(s): Cervical cancer Mother Family Medical History: Hyperlipidemia Additional Family Medical History / Comment(s): HEART PROBLEMS, IRREG RYTHM Father Family Medical History: Hyperlipidemia, Hypertension Additional Family Medical History / Comment(s): Paternal grandfather had kidney disorder and colon cancer. Medications and Allergies Home Medications Medication Instructions Recorded Confirmed Type Multivitamins, Thera [Multivitamin 1 tab PO DAILY 03/01/17 07/17/17 History (formulary)] Ranitidine HCl [Zantac] 150 mg PO BID 04/21/17 07/17/17 History Diazepam [Valium] 10 mg PO HS 07/17/17 07/17/17 History HYDROcodone/APAP 7.5-325MG [[place] 1 tab PO Q6HR PRN 07/17/17 07/17/17 History 7.5-325] Allergies Allergy/AdvReac Type Severity Reaction Status Date / Time amoxicillin [Amoxicillin] AdvReac Yeast Verified 07/17/17 17:08 Infection hydrocodone [From [place]] AdvReac Nausea & Verified 07/17/17 17:08 Vomiting Surgical - Exam Vital Signs Temp Pulse Resp BP Pulse Ox 98 F 84 16 127/70 100 07/17/17 16:44 07/17/17 16:44 07/17/17 16:44 07/17/17 16:44 07/17/17 16:44 - General well developed, no distress - Eyes PERRL - ENT normal pinna - Neck no masses - Respiratory normal expansion - Cardiovascular Rhythm: regular - Abdomen Mild epigastric tenderness. There is no rebound or guarding. Patient is also tender in the right and left upper quadrants. There is no evidence of any peritoneal signs. Abdomen: soft Results - Labs 07/18/17 06:58 07/18/17 06:58 Abnormal Lab Results - Last 24 Hours (Table) 07/17/17 07/18/17 07/18/17 Range/Units 17:49 06:58 06:58 RBC 3.78 L (3.80-5.40) m/uL Hgb 10.5 L (11.4-16.0) gm/dL MCHC 29.9 L (31.0-37.0) g/dL Chloride 108 H (98-107) mmol/L Total Protein 6.0 L 5.1 L (6.3-8.2) g/dL Albumin 3.4 L 2.8 L (3.5-5.0) g/dL Diabetes panel 07/17/17 07/18/17 Range/Units 17:49 06:58 Sodium 142 140 (137-145) mmol/L Potassium 4.1 4.2 (3.5-5.1) mmol/L Chloride 107 108 H (98-107) mmol/L Carbon Dioxide 26 27 (22-30) mmol/L BUN 17 15 (7-17) mg/dL Creatinine 0.60 0.66 (0.52-1.04) mg/dL Glucose 83 77 (74-99) mg/dL Calcium 8.8 8.8 (8.4-10.2) mg/dL AST 22 34 (14-36) U/L ALT 44 48 (9-52) U/L Alkaline Phosphatase 64 59 (38-126) U/L Total Protein 6.0 L 5.1 L (6.3-8.2) g/dL Albumin 3.4 L 2.8 L (3.5-5.0) g/dL Calcium panel 07/17/17 07/18/17 Range/Units 17:49 06:58 Calcium 8.8 8.8 (8.4-10.2) mg/dL Albumin 3.4 L 2.8 L (3.5-5.0) g/dL Pituitary panel 07/17/17 07/18/17 Range/Units 17:49 06:58 Sodium 142 140 (137-145) mmol/L Potassium 4.1 4.2 (3.5-5.1) mmol/L Chloride 107 108 H (98-107) mmol/L Carbon Dioxide 26 27 (22-30) mmol/L BUN 17 15 (7-17) mg/dL Creatinine 0.60 0.66 (0.52-1.04) mg/dL Glucose 83 77 (74-99) mg/dL Calcium 8.8 8.8 (8.4-10.2) mg/dL Adrenal panel 18 07/18/17 Range/Units 17:49 06:58 Sodium 142 140 (137-145) mmol/L Potassium 4.1 4.2 (3.5-5.1) mmol/L Chloride 107 108 H (98-107) mmol/L Carbon Dioxide 26 27 (22-30) mmol/L BUN 17 15 (7-17) mg/dL Creatinine 0.60 0.66 (0.52-1.04) mg/dL Glucose 83 77 (74-99) mg/dL Calcium 8.8 8.8 (8.4-10.2) mg/dL Total Bilirubin 0.3 0.5 (0.2-1.3) mg/dL AST 22 34 (14-36) U/L ALT 44 48 (9-52) U/L Alkaline Phosphatase 64 59 (38-126) U/L Total Protein 6.0 L 5.1 L (6.3-8.2) g/dL Albumin 3.4 L 2.8 L (3.5-5.0) g/dL Assessment and Plan Assessment: Abdominal pain and nausea. Unsure of etiology this point. Patient will be observed. We'll place her on a clear liquid diet.
[2017-07-18] MEDS: DIAZEPAM 5 MG TAB PO SCH (21:06)
[2017-07-19] MEDS: ONDANSETRON 4 MG/2 ML VIAL IVP PRN (03:21)
[2017-07-19] MEDS: HYDROmorphone 1 MG/ML 1 ML SYRINGE IVP PRN (03:22)
[2017-07-19] MEDS: SODIUM CHLORIDE 0.9% 1,000 ML IV SCH (08:21)
[2017-07-19] MEDS: FAMOTIDINE 20 MG TAB PO SCH ×2 (08:21→21:01)
[2017-07-19] MEDS: KETOROLAC 30 MG/ML 1 ML VIAL IVP PRN ×3 (08:25→21:00)
[2017-07-19] MEDS: HYDROmorphone 2 MG/ML 1 ML SYRINGE IVP PRN ×4 (10:49→23:38)
[2017-07-19] MEDS: MULTIVITAMINS, THERA 1 EACH TAB PO SCH (11:57)
--- NOTE | 2017-07-19 14:26 | P.PN ---
<Helena Rajan - Last Filed: 07/19/17 14:07> Subjective Progress Note Date: 07/19/17 27-year-old female seen and examined sitting up in bed reports "if I were to drink even water causes pain across my abdominal wall I feel nauseated and start get dry heaves patient states is the been ongoing for the past several weeks patient states feeling frustrated that she not getting any better. Patient has a prior history of having a sleeve gastrectomy done no labs pending this morning Objective - Vital Signs Vital signs: Vital Signs Temp 97.7 F 07/19/17 10:58 Pulse 80 07/19/17 10:58 Resp 16 07/19/17 10:58 BP 111/62 07/19/17 10:58 Pulse Ox 100 07/19/17 10:58 Intake & Output 07/18/17 07/19/17 07/19/17 18:59 06:59 18:59 Output Total 300 400 Balance -300 -400 Output: Urine 300 400 Other: Voiding Method Toilet Toilet # Voids 2 1 - Exam Physical exam 27-year-old female sitting up in bed talkative Lungs adequate air movement bilaterally on room air Heart S1-S2 audible regular denying chest pain Abdomen diffuse abdominal discomfort across the abdominal wall bowel tones present states has not had a bowel movement "days reports a nausea sensation inability to keep liquids down bowel tones present soft not distended Extremities no edema noted cast on the left lower extremity - Labs CBC & Chem 7: 07/18/17 06:58 07/18/17 06:58 Assessment and Plan Assessment: Impression Present on admission abdominal pain with nausea sensation unclear etiology with an extensive workup over the last several months including tertiary center eval unremarkable Plan IV fluid hydration GI prophylaxis Will order a esophagram follow up on results The above impression and plan of care have been discussed and directed by signing physician. Helena Rajan nurse practitioner acting as scribe for signing physician. <Cali Jha - Last Filed: 07/19/17 16:14> Objective - Vital Signs Vital signs: Vital Signs Temp 97.7 F 07/19/17 10:58 Pulse 80 07/19/17 10:58 Resp 16 07/19/17 10:58 BP 111/62 07/19/17 10:58 Pulse Ox 100 07/19/17 10:58 Intake & Output 07/18/17 07/19/17 07/19/17 18:59 06:59 18:59 Output Total 300 400 Balance -300 -400 Output: Urine 300 400 Other: Voiding Method Toilet Toilet # Voids 2 1 1 - Labs CBC & Chem 7: 07/18/17 06:58 07/18/17 06:58 Assessment and Plan Assessment: The patient's esophagram shows a proximal dilatation stomach. The gastric sleeve appeared to be patent. There is presumed to be some stenosis of the proximal gastric sleeve. On exam the patient is lesser stable. Her abdomen soft. She has some mild epigastric tenderness. Patient will undergo EGD with possible balloon dilatation of the gastric sleeve tomorrow.
--- NOTE | 2017-07-19 14:55 | FL ---
EXAMINATION TYPE: FL barium swallow DATE OF EXAM: 07/19/2017 LIMITED UGI: CLINICAL HISTORY: Nausea and vomiting with right upper quadrant pain. History of gastric sleeve surg marco 1 year ago. TECHNIQUE: Limited esophagram is performed utilizing 20 oz of Omnipaque 350. A total of 2 minutes 1 8 seconds of fluoroscopic time was utilized during procedure. 24 spot images are saved. COMPARISON: CT abdomen pelvis April 21, 2017. Prior Limited esophagram study March 12, 2017 FINDINGS: The patient swallowed contrast without difficulty or delay. Esophageal peristalsis and mo tility are within normal limits. There is good flow of contrast along the diaphragmatic hiatus into proximal stomach above the proximal anastomosis of gastric sleeve. There is marked delay in passage o f contrast through proximal anastomosis into sleeve. There is small irregular outpouching along mesen teric surface suspect tiny diverticulum. There is poor flow through sleeve. There is poor flow at dis waqas anastomosis into remnant antrum. There is significant amount of reflux back into distal esophagus seen at several times during procedure. Cholecystectomy clips are visualized. Patient is nauseous wi thout vomiting throughout the procedure. IMPRESSION: Moderate to severe obstruction proximal anastomosis with gastroesophageal reflux, poor fl ow of contrast through sleeve and distal anastomosis also noted.
--- NOTE | 2017-07-19 18:47 | P.PN ---
Subjective Progress Note Date: 07/18/17 Progress note being dictated for Dr. Das. Interval history: A 27-year-old female admitted with acute on chronic abdominal pain, etiology unclear, possible acute gastritis in a patient with history of gastric sleeve and multiple other medical issues. Complains of nausea. LFTs normal. Lipase 138. Hemoglobin 11.6 denies chest pain, palpitations or shortness of breath.. Evaluated by GI with recommendations noted. Surgical consult in place with recommendations pending. Objective - Vital Signs Vital signs: Vital Signs Temp 98.0 F 07/18/17 11:22 Pulse 79 07/18/17 11:22 Resp 16 07/18/17 11:22 BP 106/62 07/18/17 11:22 Pulse Ox 97 07/18/17 11:22 Intake & Output 07/17/17 07/18/17 07/18/17 18:59 06:59 18:59 Intake Total 0 Output Total 300 300 Balance -300 -300 Weight 85.275 kg Intake: Oral 0 Output: Urine 300 300 Other: Voiding Method Toilet # Voids 2 - Exam PHYSICAL EXAM: VITAL SIGNS: [As above] GENERAL: Sitting up in bed, no acute distress HEENT: Conjunctivae normal. eyes normal. Oral mucosa moist. NECK: No JVD. No thyroid enlargement. No LNs CARDIOVASCULAR: S1, S2 muffled. No murmur RESPIRATION: Breath sounds diminished in the bases. No rhonchi or crackles. ABDOMEN: Soft, mild diffuse tenderness -to minimal touch. No guarding. no masses palpable. No ascites, No hepatosplenomegaly.Bowel sounds heard. LEGS: No edema. no swelling PSYCHIATRY: Alert and oriented -3, mood and affect normal. NERVOUS SYSTEM: Cranial N 2-12 grossly normal. Moves all 4 limbs. Diffuse weakness No focal deficits. No sensory deficit. Skin: no ulcer no rash Joints: No active swelling. No inflammation. Lymphatic system. No LN neck axilla or groin. - Labs CBC & Chem 7: 07/18/17 06:58 07/18/17 06:58 Labs: Abnormal Lab Results - Last 24 Hours (Table) 07/17/17 07/18/17 07/18/17 Range/Units 17:49 06:58 06:58 RBC 3.78 L (3.80-5.40) m/uL Hgb 10.5 L (11.4-16.0) gm/dL MCHC 29.9 L (31.0-37.0) g/dL Chloride 108 H (98-107) mmol/L Total Protein 6.0 L 5.1 L (6.3-8.2) g/dL Albumin 3.4 L 2.8 L (3.5-5.0) g/dL Assessment and Plan Assessment: 1. Abdominal pain, upper abdominal acute on chronic, etiology unclear, possible acute gastritis. 2. [ Status post gastric sleeve surgery]. 3. [ Previous negative MRCP]. 4. [ History of elevated LFTs, currently normal]. 5. [Panic disorder]. Plan: Continue on current medication regime ,monitoring and symptomatic treatment. Surgical evaluation and recommendations pending. GI and DVT prophylaxis in place. Increase in relation as tolerated. Aggressive pulmonary toileting. The impression and plan of care has been dictated as directed. : I performed a history and examination of this patient, discussed the same with the dictator. I agree with the dictator's note ,documented as a scribe. Any additional findings or plans will be noted.
--- NOTE | 2017-07-19 18:50 | P.PN ---
Subjective Progress Note Date: 07/19/17 Progress note being dictated for Dr. Das. Interval history: A 27-year-old female admitted with acute on chronic abdominal pain, etiology unclear, possible acute gastritis in a patient with history of gastric sleeve and multiple other medical issues. Complains of nausea. LFTs normal. Lipase 138. Hemoglobin 11.6 denies chest pain, palpitations or shortness of breath.. Evaluated by GI with recommendations noted. Surgical consult in place with recommendations pending. -2017. No acute overnight events. Maintained on IV fluid hydration. Complaining of nausea and vomiting, unable to tolerate diet. Evaluated by surgery, esophagram ordered. Nares chest pain, palpitations or shortness of breath. Objective - Vital Signs Vital signs: Vital Signs Temp 99.1 F 07/19/17 16:16 Pulse 70 07/19/17 16:16 Resp 20 07/19/17 16:16 BP 134/76 07/19/17 16:16 Pulse Ox 100 07/19/17 16:16 Intake & Output 07/18/17 07/19/17 07/19/17 18:59 06:59 18:59 Output Total 300 400 Balance -300 -400 Output: Urine 300 400 Other: Voiding Method Toilet Toilet # Voids 2 1 1 - Exam PHYSICAL EXAM: VITAL SIGNS: [As above] GENERAL: Sitting up in bed, no acute distress HEENT: Conjunctivae normal. eyes normal. Oral mucosa moist. NECK: No JVD. No thyroid enlargement. No LNs CARDIOVASCULAR: S1, S2 muffled. No murmur RESPIRATION: Breath sounds diminished in the bases. No rhonchi or crackles. ABDOMEN: Soft, mild diffuse tenderness -to minimal touch. No guarding. no masses palpable. No ascites, No hepatosplenomegaly.Bowel sounds heard. LEGS: No edema. no swelling PSYCHIATRY: Alert and oriented -3, mood and affect normal. NERVOUS SYSTEM: Cranial N 2-12 grossly normal. Moves all 4 limbs. Diffuse weakness No focal deficits. No sensory deficit. Skin: no ulcer no rash Joints: No active swelling. No inflammation. Lymphatic system. No LN neck axilla or groin. - Labs CBC & Chem 7: 07/18/17 06:58 07/18/17 06:58 Assessment and Plan Assessment: 1. Abdominal pain, upper abdominal acute on chronic, etiology unclear, possible acute gastritis. 2. [ Status post gastric sleeve surgery]. 3. [ Previous negative MRCP]. 4. [ History of elevated LFTs, currently normal]. 5. [Panic disorder]. Plan: Continue on current medication regime ,monitoring and symptomatic treatment. Esophagram pending. Aggressive pulmonary toileting. Increase ambulation as tolerated. Discharge planning in progress for tomorrow. The impression and plan of care has been dictated as directed. : I performed a history and examination of this patient, discussed the same with the dictator. I agree with the dictator's note ,documented as a scribe. Any additional findings or plans will be noted.
[2017-07-19] MEDS: DIAZEPAM 5 MG TAB PO SCH (21:01)
[2017-07-20] MEDS: HYDROmorphone 2 MG/ML 1 ML SYRINGE IVP PRN ×4 (06:00→20:17)
[2017-07-20] MEDS ORDERED: LIDOCAINE 1% INJ 10MG/ML (20 ML MDV) ONE (08:22)
[2017-07-20] MEDS ORDERED: IV FLUID CONTINUATION 1,000 ML IV ONE (08:22)
[2017-07-20] MEDS ORDERED: PROPOFOL 10 MG/ML 20 ML VIAL IV ONE (08:22)
--- NOTE | 2017-07-20 08:51 | P.OP ---
Date of Procedure: 07/20/17 Preoperative Diagnosis: Epigastric abdominal pain Postoperative Diagnosis: Mild antral gastritis No significant sleeve stricture Procedure(s) Performed: EGD with biopsy and dilatation of gastric sleeve Anesthesia: MAC Surgeon: Cali Jha Pathology: other (Antrum) Condition: stable Disposition: PACU Description of Procedure: The patient's placed on the endoscopy table in the lateral position. She received IV sedation. The gastric was placed oropharynx and passed into the esophagus and into the stomach. The scope was then placed through the pylorus. The first and second portion of duodenum appeared normal. Scope was then brought back the antrum and this was mildly inflamed. The patient a previous gastric sleeve. The gastric sleeve appeared to be patent. There is no significant stricture seen. Due to the patient's complaints of abdominal pain a balloon dilator was placed across the gastric sleeve. A 20 mm balloon was placed across the incisura and inflated. There is no evidence of any stricture of the gaseously the balloon. We brought back easily within the gastric sleeve. The balloon was then removed. The scope was then brought back and the gaseously was inspected. There is known to any inflammatory changes along the gastric sleeve. The patient had a mildly enlarged fundic areas. There is known to any inflammatory changes of this area. The GE junction was at 47 is. The distal esophagus appeared normal. The proximal esophagus appeared normal. Scope was then withdrawn for patient.
[2017-07-20] MEDS: SODIUM CHLORIDE 0.9% 1,000 ML IV SCH (10:04)
--- NOTE | 2017-07-20 10:42 | P.PN ---
Progress Note - Text Progress Note Date: 07/20/17 The patient underwent EGD this morning. No significant obstruction was visualized. On exam the patient's vital signs are stable. She has complaints of epigastric abdominal pain. I had a lengthy discussion the patient and regarding her EGD. I recommended we try clear liquid diet. She'll be observed. If her pain improves we will feed her. The parents patient is also had complaints of some constipation. She will receive a Fleet enema today.
[2017-07-20] MEDS ORDERED: NA PHOS,M-B/NA PHOS,DI-BA 133 ML ENEMA RECTAL ONE (11:00)
[2017-07-20] MEDS: FAMOTIDINE 20 MG TAB PO SCH ×2 (11:24→21:34)
[2017-07-20] MEDS: MULTIVITAMINS, THERA 1 EACH TAB PO SCH (12:00)
[2017-07-20] MEDS: KETOROLAC 30 MG/ML 1 ML VIAL IVP PRN ×2 (12:05→18:58)
[2017-07-20] MEDS ORDERED: HYDROmorphone 1 MG/ML 1 ML SYRINGE IVP PRN (13:14)
[2017-07-20] MEDS ORDERED: HYDROcodone/APAP 5-325MG 1 EACH TAB PO PRN (13:15)
[2017-07-20] MEDS: ONDANSETRON 4 MG/2 ML VIAL IVP PRN (13:52)
--- NOTE | 2017-07-20 19:11 | PN ---
PROGRESS NOTE DATE OF SERVICE: 07/20/2017 This 27 year-old woman who was admitted with abdominal pain, was found to have gastric sleeve stricture, underwent EGD and as well as dilatation by Dr. Jha antral gastritis noted. No chest pain. No palpitations. No fever. EXAM: Alert and oriented times three. Pulse 62. Blood pressure 113/76, respiration 18, temperature 97.8, pulse ox 100% on room air. HEENT: Conjunctivae normal. Neck: No jugular venous distention. Cardiovascular: S1, S2 muffled. Respiratory: Breath sounds diminished in the bases. A few scattered rhonchi. No crackles. Abdomen is soft, nontender. No mass palpable. Legs are no edema. No swelling. LABS: WBC 4.2, hemoglobin is 10.5, and albumin is 2.8. Urinalysis is negative. ASSESSMENT: 1. Abdominal pain, possibly gastric sleeve stricture status post EGD and dilatation. 2. Status post gastric sleeve surgery. 3. History of previous negative MRCP. 4. History of increased LFTs, currently normal. 5. History of panic disorder. RECOMMENDATIONS AND DISCUSSION: Recommend to continue current management and symptomatic treatment. Closely follow with gastric surgery. Guarded prognosis. Further recommendations to follow. MMODL / IJN: [id number] /
[2017-07-20] MEDS: DIAZEPAM 5 MG TAB PO SCH (21:34)
[2017-07-20] MEDS: PANTOPRAZOLE 40 MG/10 ML VIAL IVP SCH (21:34)
[2017-07-21] MEDS: PANTOPRAZOLE 40 MG/10 ML VIAL IVP SCH ×2 (08:44→21:30)
[2017-07-21] MEDS: FAMOTIDINE 20 MG TAB PO SCH ×2 (08:44→21:26)
[2017-07-21] MEDS: KETOROLAC 30 MG/ML 1 ML VIAL IVP PRN ×3 (08:56→21:29)
--- NOTE | 2017-07-21 10:58 | P.PN ---
Progress Note - Text Progress Note Date: 07/21/17 The patient states she feels slightly better today. She is tolerating clear liquids. She states her pain is decreased. She thinks she can get off of that a lot of. On exam her vital signs are stable. Her abdomen soft. She has minimal right and left upper quadrant discomfort. The patient will have her diet advanced to a full liquid diet. If she continues to improve she'll be discharged home tomorrow.
[2017-07-21] MEDS: HYDROmorphone 2 MG/ML 1 ML SYRINGE IVP PRN ×3 (11:44→23:37)
[2017-07-21] MEDS: MULTIVITAMINS, THERA 1 EACH TAB PO SCH (12:25)
[2017-07-21] MEDS: ONDANSETRON 4 MG/2 ML VIAL IVP PRN ×2 (13:10→23:38)
--- NOTE | 2017-07-21 15:57 | PN ---
PROGRESS NOTE DATE OF SERVICE: 07/22/2016 This 27-year-old woman was admitted with abdominal pain. Possibly gastric sleeve stricture is being closely monitored. The diet has been advanced by Dr. Jha. No chest pain. No palpitations. No fever. EXAM: Alert and oriented times three. Pulse 69, blood pressure 130/74, respiration 18, temperature 98.4, pulse ox 98% on room air. HEENT: Conjunctivae normal. Neck: No JVD. Cardiovascular: S1, S2 muffled. Respiratory: Breath sounds diminished in the bases. A few scattered rhonchi. No crackles. Abdomen is soft, mild tenderness present. Legs are no edema. No swelling. Central nervous system: No focal deficits. LABORATORY DATA: WBC 4.2, hemoglobin 7.5. ASSESSMENT: 1. Abdominal pain possible gastric sleeve stricture status post EGD and dilatation. 2. History of gastric sleeve surgery. 3. History of previous negative MRCP. 4. History of increased LFTs, currently normal. 5. History of panic disorder. RECOMMENDATIONS AND DISCUSSION: Recommend to continue current management. Continue current medications. Symptomatic treatment. Otherwise, at this time, I recommend follow the patient closely. Otherwise further recommendations to follow. MMODL / IJN: [id number] /
[2017-07-21] MEDS: SODIUM CHLORIDE 0.9% 1,000 ML IV SCH (16:17)
[2017-07-21] MEDS: DIAZEPAM 5 MG TAB PO SCH (21:26)
[2017-07-22] MEDS: FAMOTIDINE 20 MG TAB PO SCH ×2 (07:52→21:23)
[2017-07-22] MEDS: PANTOPRAZOLE 40 MG/10 ML VIAL IVP SCH ×2 (07:52→21:23)
[2017-07-22] MEDS: HYDROmorphone 2 MG/ML 1 ML SYRINGE IVP PRN ×3 (08:03→19:36)
[2017-07-22] MEDS: SODIUM CHLORIDE 0.9% 1,000 ML IV SCH (08:07)
[2017-07-22] MEDS: KETOROLAC 30 MG/ML 1 ML VIAL IVP PRN ×2 (10:44→16:35)
[2017-07-22] MEDS: MULTIVITAMINS, THERA 1 EACH TAB PO SCH (12:13)
[2017-07-22] MEDS ORDERED: IOHEXOL 350 MG/ML 25 ML BOTTLE (ORAL USE) PO PRN (17:56)
[2017-07-22] MEDS ORDERED: RX INFO: IV CONTRAST WAS GIVEN 1 EACH MISC MISCELLANE PRN (17:56)
[2017-07-22] MEDS: ONDANSETRON 4 MG/2 ML VIAL IVP PRN (19:36)
--- NOTE | 2017-07-22 20:25 | CT ---
EXAMINATION TYPE: CT abdomen pelvis w con DATE OF EXAM: 07/22/2017 HISTORY: Generalized pain CT DLP: 1616mGycm Automated Exposure Control for Dose Reduction was Utilized. CONTRAST: CT scan of the abdomen and pelvis is performed with IV Contrast, patient injected with 100 mL of Omni paque 300. COMPARISON: 04/21/2017, 04/22/2017 and 05/29/2015 FINDINGS: LUNG BASES: Minimal left basilar subsegmental atelectasis is noted as well as stable right lower lobe 4 mm, or nodule. This is stable back to 05/29/2015 and should be considered benign. LIVER/GB: There is a linear bandlike focal area of hypoattenuation within the right hepatic lobe that is unchanged in comparison to the exam of 04/21/2017. This may represent a focal area of scarring fro m prior trauma or atypical focal fatty infiltration. Gallbladder surgically absent. PANCREAS: No significant abnormality is seen. SPLEEN: Spleen is nonenlarged. ADRENALS: No significant abnormality is seen. KIDNEYS: Kidneys are of symmetric enhancement. BOWEL: No significant abnormality is seen. No dilated bowel. UTERUS/ADNEXA: Follicular changes are seen in the ovaries with crenulated follicle of the left ovary, likely relating to an involuting hemorrhagic cyst. There is diffuse low-attenuation in the endometri um, likely related to the phase of menses in this premenopausal female. LYMPH NODES: No greater than 1cm abdominal or pelvic lymph nodes are appreciated. OSSEOUS STRUCTURES: Nonspecific sclerotic focus of the left femoral head likely relates to a bone isl and. OTHER: No significant additional abnormality is seen. IMPRESSION: 1. No significant acute finding is seen to account for patient's clinical symptoms. 2. Follicular changes of the ovaries with a crenulated left ovarian follicle likely representing an i nvoluting hemorrhagic cyst/follicle. 3. No evidence of bowel obstruction. 4. Bandlike area of hypoattenuation within the right hepatic lobe that may represent sequela of prior trauma, scarring or atypical focal fatty infiltration.
[2017-07-22] MEDS: DIAZEPAM 5 MG TAB PO SCH (21:23)
[2017-07-22] MEDS: HYDROmorphone 2 MG/ML 1 ML SYRINGE IV PRN (23:30)
[2017-07-23] MEDS: ONDANSETRON 4 MG/2 ML VIAL IVP PRN ×2 (02:59→15:17)
[2017-07-23] MEDS: SODIUM CHLORIDE 0.9% 1,000 ML IV SCH ×2 (02:59→21:22)
[2017-07-23] MEDS: HYDROmorphone 2 MG/ML 1 ML SYRINGE IV PRN ×2 (03:29→10:53)
[2017-07-23] MEDS: FAMOTIDINE 20 MG TAB PO SCH (08:10)
[2017-07-23] MEDS: PANTOPRAZOLE 40 MG/10 ML VIAL IVP SCH ×2 (08:10→21:23)
[2017-07-23] MEDS: METOCLOPRAMIDE 5 MG/ML 2 ML VIAL IVP SCH ×3 (09:57→21:24)
--- NOTE | 2017-07-23 10:20 | PN ---
PROGRESS NOTE DATE OF SERVICE: 07/22/2017 INTERVAL HISTORY: This 27-year-old woman who was admitted with abdominal pain also had EGD as well as dilatation. An abdominal-pelvis CAT scan was done by Dr. Jha, which showed no significant acute findings. No chest pain. No palpitations. No fever. EXAM: Alert and oriented x3. Pulse is 64, blood pressure 123/74, respirations 16, temperature 97.8, pulse ox 100% on room air. HEENT: Conjunctivae normal. NECK: No jugular venous distention. RESPIRATORY: Breath sounds diminished in the bases. No rhonchi. No crackles. ABDOMEN: Soft. Mild diffuse tenderness present. No guarding. No rigidity. No mass palpable. LEGS: No edema. NERVOUS SYSTEM: Nonfocal. LABS: WBC 4.2, hemoglobin is 10.5. ASSESSMENT: 1. Abdominal pain with possible gastric sleeve stricture status post esophagogastroduodenoscopy with dilatation. 2. History of gastric sleeve surgery. 3. History of previous negative magnetic resonance cholangiopancreatography. 4. Increased LFTs, currently normal. 5. History of panic disorder. RECOMMENDATIONS AND DISCUSSION: Recommend to continue current medical management and symptomatic treatment. Also closely follow with Gastroenterology as well as Surgery. Guarded prognosis because of multiple complex medical issues. Further recommendations to follow. MMODL / IJN: [id number] /
--- NOTE | 2017-07-23 12:35 | P.PN ---
Subjective Progress Note Date: 07/23/17 27-year-old female seen and examined sitting up in bed. Patient states symptoms have not resolved they feel the same as when she came into the hospital "the only thing that I think will help is to have surgery think I have adhesions again" IV pain medication helps relieve the pain patient states has no appetite. CAT scan of the abdomen pelvis showed no significant acute findings to account for patient's clinical symptoms. No evidence of a bowel obstruction area bandlike area of hypoattenuation within the right hepatic lobe could represent atypical hepatic infiltrate prior trauma or scarring Objective - Vital Signs Vital signs: Vital Signs Temp 98.3 F 07/23/17 08:00 Pulse 64 07/23/17 08:00 Resp 20 07/23/17 08:00 BP 114/66 07/23/17 08:00 Pulse Ox 100 07/23/17 08:00 Intake & Output 07/22/17 07/23/17 07/23/17 18:59 06:59 18:59 Intake Total 60 Output Total 31 Balance 29 Weight 87.1 kg Intake: Oral 60 Output: Emesis 31 Other: # Voids 1 1 - Exam Physical exam 27-year-old female sitting up in bed appears in no acute distress talkative Lungs adequate air movement bilaterally Heart S1-S2 audible regular Abdomen soft not distended states diffuse tenderness across the abdominal wall lack of appetite nausea sensation no active emesis states no bowel movement extremities no edema - Labs CBC & Chem 7: 07/18/17 06:58 07/18/17 06:58 Assessment and Plan Assessment: Impression Present on admission abdominal pain with nausea sensation unclear etiology with an extensive workup over the last several months including tertiary center eval unremarkable CAT scan abdomen pelvis done July 22 show no significant acute findings to contributed patient's clinical symptoms no evidence of a bowel obstruction Plan IV fluid hydration GI prophylaxis Pain control Further surgical recommendations pending The above impression and plan of care have been discussed and directed by signing physician. Helena Rajan nurse practitioner acting as scribe for signing physician.
[2017-07-23] MEDS: MULTIVITAMINS, THERA 1 EACH TAB PO SCH (12:48)
[2017-07-23] MEDS ORDERED: HYDROcodone/APAP 5-325MG 1 EACH TAB PO PRN (13:43)
--- NOTE | 2017-07-23 17:32 | PN ---
PROGRESS NOTE DATE OF SERVICE: 07/23/2017 This 27-year-old woman with past medical history of multiple medical problems was admitted with epigastric abdominal pain. Mild antral gastritis and no significant esophageal stricture was noted by Dr. Jha. However the patient underwent EGD with biopsy and dilatation of the gastric sleeve. No chest pain. No palpitations. No fever. EXAM: Alert and oriented times three. Pulse is 64. Blood pressure 114/66, respiration 20, temp 98.2, pulse ox 100% on room air. HEENT: Conjunctivae normal. Neck: No jugular venous distention. Cardiovascular: S1, S2 muffled. Respirations: Breath sounds diminished in the bases. No rhonchi and no crackles. Abdomen is soft, mild diffuse tenderness. Legs are no edema, no swelling. Central nervous system: No focal deficits. LABS: WBC 4.2, hemoglobin 10.5. Urine HCG is negative. ASSESSMENT: 1. Abdominal pain status post EGD and as well as a gastric sleeve dilatation with no evidence of significant gastric sleeve stricture or EGD. 2. History of gastric sleeve surgery. 3. History of previous negative MRCP. 4. Increased LFTs, currently normal. 5. History of panic disorder. RECOMMENDATIONS AND DISCUSSION: Recommend to continue current medications, management and symptomatic treatment. Repeat labs and advance diet per surgery. Symptomatic treatment being offered. Guarded prognosis. Further recommendations to follow. MMODL / IJN: [id number] /
[2017-07-23] MEDS ORDERED: HYDROmorphone 1 MG/ML 1 ML SYRINGE IVP PRN (19:56)
[2017-07-23] MEDS: DIAZEPAM 5 MG TAB PO SCH (21:23)
[2017-07-23] MEDS: HYDROmorphone 2 MG/ML 1 ML SYRINGE IVP PRN (21:24)
[2017-07-24] MEDS: HYDROmorphone 2 MG/ML 1 ML SYRINGE IVP PRN ×8 (00:39→21:54)
[2017-07-24] MEDS: METOCLOPRAMIDE 5 MG/ML 2 ML VIAL IVP SCH ×4 (02:57→18:44)
[2017-07-24] MEDS: PANTOPRAZOLE 40 MG/10 ML VIAL IVP SCH ×2 (09:38→21:26)
[2017-07-24] MEDS: MULTIVITAMINS, THERA 1 EACH TAB PO SCH (12:32)
[2017-07-24] MEDS: SODIUM CHLORIDE 0.9% 1,000 ML IV SCH (15:56)
--- NOTE | 2017-07-24 17:27 | P.PN ---
Subjective Progress Note Date: 07/24/17 Principal diagnosis: Abdominal pain, nausea The patient states she has pain now that is in the periumbilical area with radiates to the pubic area. She is requiring Dilaudid every 3 hours. She did try to eat something this morning and had some nausea and emesis. She is now to water without difficulty during the day. Objective - Vital Signs Vital signs: Vital Signs Temp 98.8 F 07/24/17 16:38 Pulse 69 07/24/17 16:38 Resp 20 07/24/17 16:38 BP 112/74 07/24/17 16:38 Pulse Ox 99 07/24/17 16:38 Intake & Output 07/23/17 07/24/17 07/24/17 18:59 06:59 18:59 Intake Total 60 1160 Output Total 0 Balance 60 1160 Weight 87.1 kg Intake: Oral 60 1160 Output: Urine 0 Other: Voiding Method Toilet # Voids 1 1 1 # Emeses 1 - Constitutional General appearance: Present: cooperative - Cardiovascular Rhythm: regular - Gastrointestinal Gastrointestinal Comment(s): Abdomen soft. There is some infraumbilical pain. There is no rebound or guarding. - Labs CBC & Chem 7: 07/18/17 06:58 07/18/17 06:58 Assessment and Plan Assessment: Chronic nausea and abdominal pain requiring narcotic pain control. I don't discussion the patient . I'm not sure was causing her pain. I did review her esophagram with her. She does have some proximal dilation of her gastric fundus. However there is no obstruction of her sleeve. The patient's symptoms are not obstructive. Her pain is the main issue. The patient will be observed tonight. If she still has significant pain and recommend transferring [facility] in the a.m. For second opinion.
[2017-07-24 18:04] LABS: Basophils % (A) 1 %; Eosinophils # (A) 0.2 k/uL (0-0.7); Eosinophils % (A) 5 %; HCT 37.1 % (34.0-46.0); HGB 11.6 gm/dL (11.4-16.0); Lymphocytes # (A) 1.1 k/uL (1.0-4.8); Lymphocytes % (A) 28 %; MCH 27.8 pg (25.0-35.0); MCHC 31.3 g/dL (31.0-37.0); MCV 88.8 fL (80.0-100.0); Mean Platelet Volume 7.6; Monocytes # (A) 0.3 k/uL (0-1.0); Monocytes % (A) 7 %; Neutrophils # (A) 2.2 k/uL (1.3-7.7); Neutrophils % (A) 57 %; Platelet Count 210 k/uL (150-450); RBC 4.18 m/uL (3.80-5.40); RDW 14.8 % (11.5-15.5); WBC 3.8 k/uL (3.8-10.6)
[2017-07-24 18:15] LABS: ALT 172 U/L (9-52); AST 204 U/L (14-36); Albumin 3.4 g/dL (3.5-5.0); Alkaline Phosphatase 85 U/L (38-126); Anion Gap 9 mmol/L; Blood Urea Nitrogen 6 mg/dL (7-17); Calcium 8.8 mg/dL (8.4-10.2); Carbon Dioxide 27 mmol/L (22-30); Chloride 106 mmol/L (98-107); Glucose 80 mg/dL (74-99); Sodium 142 mmol/L (137-145); Total Bilirubin 0.6 mg/dL (0.2-1.3); Total Protein 5.8 g/dL (6.3-8.2)
[2017-07-24] MEDS: 1: MVI, ADULT NO.4 WITH VIT K 10 ML, THIAMINE 100 MG, FOLIC ACID 1 MG in SODIUM CHLORIDE IV SCH ×4 (19:03)
[2017-07-24] MEDS: DIAZEPAM 5 MG TAB PO SCH (21:26)
[2017-07-25] MEDS: METOCLOPRAMIDE 5 MG/ML 2 ML VIAL IVP SCH ×3 (00:23→12:08)
[2017-07-25] MEDS: HYDROmorphone 2 MG/ML 1 ML SYRINGE IVP PRN ×4 (01:29→11:26)
[2017-07-25] MEDS: 1: MVI, ADULT NO.4 WITH VIT K 10 ML, THIAMINE 100 MG, FOLIC ACID 1 MG in SODIUM CHLORIDE IV SCH ×4 (04:41)
[2017-07-25 07:21] LABS: ALT 139 U/L (9-52); AST 97 U/L (14-36); Albumin 3.3 g/dL (3.5-5.0); Alkaline Phosphatase 84 U/L (38-126); Anion Gap 8 mmol/L; Blood Urea Nitrogen 5 mg/dL (7-17); Calcium 8.9 mg/dL (8.4-10.2); Carbon Dioxide 28 mmol/L (22-30); Chloride 105 mmol/L (98-107); Glucose 76 mg/dL (74-99); Potassium 3.8 mmol/L (3.5-5.1); Sodium 141 mmol/L (137-145); Total Bilirubin 0.8 mg/dL (0.2-1.3); Total Protein 5.6 g/dL (6.3-8.2)
[2017-07-25] MEDS: PANTOPRAZOLE 40 MG/10 ML VIAL IVP SCH (08:20)
[2017-07-25 11:46] VITALS: BP 101/66; PULSE 74; RESP 16; TEMP 98.1
--- NOTE | 2017-07-25 12:21 | P.OBCN ---
History of Present Illness Consult date: 07/25/17 Requesting physician: Cali Jha Reason for consult: pelvic pain Chief complaint: abdominal pain over the last 6 days History of present illness: 27 year old admitted for epigastric pain 6 days ago requiring IV narcotic pain medication. She has a history of gastric sleeve surgery in 2014 and then laparoscopic adhesiolysis last year. She says the pain is now periumbilical and sometimes radiates to both sides of her pelvis. I did take her for a laparoscopy myself in 2014 for a significant 13cm torsed hydrosalpinx. CT scan a few days ago showed an involuting hemorrahagic cyst which fits with her history of having a period 3 weeks ago as she probably just ovulated earlier this week. I was consulted for this cyst as a possible cause for her pain. Review of Systems All systems: negative Constitutional: Denies chills, Denies fever Eyes: denies blurred vision, denies pain Ears, nose, mouth and throat: Denies headache, Denies sore throat Cardiovascular: Denies chest pain, Denies shortness of breath Respiratory: Denies cough Gastrointestinal: Reports abdominal pain, Reports constipation (has not had a bowel movement since last Saturday (4 days)), Denies diarrhea, Denies nausea, Denies vomiting Genitourinary: Denies dysuria, Denies hematuria Musculoskeletal: Denies myalgias Integumentary: Denies pruritus, Denies rash Neurological: Denies numbness, Denies weakness Psychiatric: Denies anxiety, Denies depression Endocrine: Denies fatigue, Denies weight change Past Medical History Past Medical History: No Reported History Additional Past Medical History / Comment(s): Elevated liver enzymes for unknown reason in September 2016, gall stones History of Any Multi-Drug Resistant Organisms: None Reported Past Surgical History: Cholecystectomy Additional Past Surgical History / Comment(s): Right fallopian tube removed May 2015, SLEEVE GASTRECTOMY 03/26/15 Past Anesthesia/Blood Transfusion Reactions: Postoperative Nausea & Vomiting ( PONV) Past Psychological History: Panic Disorder Smoking Status: Never smoker Past Alcohol Use History: None Reported Past Drug Use History: None Reported - Past Family History Sister(s) Family Medical History: Cancer, Deep Vein Thrombosis (DVT) Additional Family Medical History / Comment(s): Cervical cancer Mother Family Medical History: Hyperlipidemia Additional Family Medical History / Comment(s): HEART PROBLEMS, IRREG RYTHM Father Family Medical History: Hyperlipidemia, Hypertension Additional Family Medical History / Comment(s): Paternal grandfather had kidney disorder and colon cancer. Medications and Allergies Home Medications Medication Instructions Recorded Confirmed Type Multivitamins, Thera [Multivitamin 1 tab PO DAILY 03/01/17 07/17/17 History (formulary)] Diazepam [Valium] 10 mg PO HS 07/17/17 07/17/17 History HYDROcodone/APAP 7.5-325MG [[place] 1 tab PO Q6HR PRN 07/17/17 07/17/17 History 7.5-325] Pantoprazole Sodium [Protonix] 40 mg PO BID #60 tablet. 07/22/17 Rx Allergies Allergy/AdvReac Type Severity Reaction Status Date / Time amoxicillin [Amoxicillin] AdvReac Yeast Verified 07/17/17 17:08 Infection hydrocodone [From [place]] AdvReac Nausea & Verified 07/17/17 17:08 Vomiting Exam Osteopathic Statement: *. No significant issues noted on an osteopathic structural exam other than those noted in the History and Physical/Consult. - Vital Signs Vital signs: Vital Signs Temp Pulse Pulse Resp BP Pulse Ox 07/25/17 11:45 98.1 F 74 16 101/66 100 07/25/17 08:05 98.3 F 81 18 118/76 100 07/25/17 00:00 98.1 F 68 18 125/78 07/24/17 20:04 98.2 F 66 20 125/83 100 07/24/17 19:20 66 20 07/24/17 16:38 98.8 F 69 20 112/74 99 07/24/17 15:54 98.6 F 80 16 98/62 97 07/24/17 12:20 98.3 F 80 16 115/71 99 Intake and Output 07/24/17 07/25/17 07/25/17 22:59 06:59 14:59 Other: Voiding Method Toilet Toilet Toilet # Voids 1 1 1 Abdomen: soft, mildly tender periumbilical. Results Result Diagrams: 07/24/17 17:48 07/25/17 06:38 Abnormal Lab Results - Last 24 Hours (Table) 07/24/17 07/25/17 Range/Units 17:48 06:38 BUN 6 L 5 L (7-17) mg/dL AST 204 H 97 H (14-36) U/L ALT 172 H 139 H (9-52) U/L Total Protein 5.8 L 5.6 L (6.3-8.2) g/dL Albumin 3.4 L 3.3 L (3.5-5.0) g/dL Assessment and Plan (1) Abdominal pain Current Visit: No Status: Acute Code(s): R10.9 - UNSPECIFIED ABDOMINAL PAIN SNOMED Code(s): 38404863 (2) Follicular cyst of left ovary Current Visit: Yes Status: Acute Code(s): N83.02 - FOLLICULAR CYST OF LEFT OVARY SNOMED Code(s): 5540587 Plan: 1. pelvic ultrasound 2. if pelvic ultrasound is normal, I would be agreeable to patient being discharged home and follow up outpatient. She may need to be seen in the pelvic pain clinic at [facility].
--- NOTE | 2017-07-25 13:32 | US ---
EXAMINATION TYPE: US pelvic complete DATE OF EXAM: 07/25/2017 COMPARISON: CT dated July 22, 2017 CLINICAL HISTORY: pelvic pain, cyst. recent Ct mentioned possible involuting cyst TECHNIQUE: TA Date of LMP: 07/03/2017 EXAM MEASUREMENTS: Uterus: 8.6 x 5.1 x 4.0 cm Endometrial Stripe: 0.9 cm Right Ovary: 2.6 x 1.8 x 1.3 cm Left Ovary: 3.4 x 2.6 x 1.9 cm 1. Uterus: Anteverted wnl 2. Endometrium: wnl 3. Right Ovary: wnl 4. Left Ovary: wnl 5. Bilateral Adnexa: wnl 6. Posterior cul-de-sac: wnl IMPRESSION: 1. No significant abnormality identified.
[2017-07-25 14:56] VITALS: BMI 34.0
--- NOTE | 2017-07-25 15:01 | P.PN ---
Subjective Progress Note Date: 07/24/17 Progress note being dictated for Dr. Davis Interval history: A 27-year-old female admitted with acute on chronic abdominal pain, etiology unclear, possible acute gastritis in a patient with history of gastric sleeve and multiple other medical issues. Complains of nausea. LFTs normal. Lipase 138. Hemoglobin 11.6 denies chest pain, palpitations or shortness of breath.. Evaluated by GI with recommendations noted. Surgical consult in place with recommendations pending. -2017. No acute overnight events. Maintained on IV fluid hydration. Complaining of nausea and vomiting, unable to tolerate diet. Evaluated by surgery, esophagram ordered. Nares chest pain, palpitations or shortness of breath. 07/24/2017 continues on IV fluid hydration. complains of nausea ,small amount of emesis post breakfast, periumbilical tenderness.States pain controlled on Dilaudid IV push-receiving every 3 hours when necessary.denies chest pain, palpitations or shortness of breath.afebrile, normal WBC. Surgery reviewed esophagram and reports some proximal dilation of her gastric fundus with no obstruction of her sleeve. Objective - Vital Signs Vital signs: Vital Signs Temp 98.1 F 07/25/17 11:45 Pulse 74 07/25/17 11:45 Resp 16 07/25/17 11:45 BP 101/66 07/25/17 11:45 Pulse Ox 100 07/25/17 11:45 Intake & Output 07/24/17 07/25/17 07/25/17 18:59 06:59 18:59 Other: Voiding Method Toilet Toilet Toilet # Voids 1 1 1 # Emeses 1 - Exam PHYSICAL EXAM: VITAL SIGNS: [As above] GENERAL: Sitting up in bed, no acute distress HEENT: Conjunctivae normal. eyes normal. Oral mucosa moist. NECK: No JVD. No thyroid enlargement. No LNs CARDIOVASCULAR: S1, S2 muffled. No murmur RESPIRATION: Breath sounds diminished in the bases. No rhonchi or crackles. ABDOMEN: Soft, mild diffuse tenderness periumbilical. No guarding. no masses palpable. No ascites, No hepatosplenomegaly.Bowel sounds heard. LEGS: No edema. no swelling PSYCHIATRY: Alert and oriented -3, mood and affect normal. NERVOUS SYSTEM: Cranial N 2-12 grossly normal. Moves all 4 limbs. Diffuse weakness No focal deficits. No sensory deficit. Skin: no ulcer no rash Joints: No active swelling. No inflammation. Lymphatic system. No LN neck axilla or groin. - Labs CBC & Chem 7: 07/24/17 17:48 07/25/17 06:38 Labs: Abnormal Lab Results - Last 24 Hours (Table) 07/24/17 07/25/17 Range/Units 17:48 06:38 BUN 6 L 5 L (7-17) mg/dL AST 204 H 97 H (14-36) U/L ALT 172 H 139 H (9-52) U/L Total Protein 5.8 L 5.6 L (6.3-8.2) g/dL Albumin 3.4 L 3.3 L (3.5-5.0) g/dL Assessment and Plan Assessment: 1. Abdominal pain, upper abdominal acute on chronic, etiology unclear, possible acute gastritis. 2. [ Status post gastric sleeve surgery]. 3. [ Previous negative MRCP]. 4. [ History of elevated LFTs, currently normal]. 5. [Panic disorder]. Plan: Continue on current medication regime ,monitoring and symptomatic treatment. Aggressive pulmonary toileting. Increase ambulation as tolerated. pelvis ultrasound pending. Discharge planning in progress for tomorrow. The impression and plan of care has been dictated as directed. : I performed a history and examination of this patient, discussed the same with the dictator. I agree with the dictator's note ,documented as a scribe. Any additional findings or plans will be noted.
--- NOTE | 2017-07-25 15:24 | P.DS ---
Providers Date of admission: 07/23/17 13:56 Expected date of discharge: 07/25/17 Attending physician: Reta Davis Consults: 07/17/17 22:46 Consult Physician Routine Consulting Provider: Cali Jha Consult Reason/Comments: Prior Gastric Sleeve surgery Do you want consulting provider notified?: Yes 07/25/17 09:05 Consult Physician Routine Consulting Provider: Pippa Pichardo Consult Reason/Comments: hx of ovarian cyst...abdominal pain Do you want consulting provider notified?: Already Contacted Primary care physician: Sara Cole [facility] Course: Final Diagnoses: 1. Abdominal pain, upper abdominal acute on chronic, etiology unclear,status post esophagogram, mild chronic gastritis per pathology. 2. [ Status post gastric sleeve surgery]. 3. [ Previous negative MRCP]. 4. [ History of elevated LFTs, currently normal]. 5. [Panic disorder]. Hospital Course:A 27-year-old female admitted with acute on chronic abdominal pain, etiology unclear, possible acute gastritis in a patient with history of gastric sleeve and multiple other medical issues.evaluated by general surgery, [employer], GI. multiple radiography tests.maintained on IV fluid hydration along with pain management. Significant clinical improvement. Patient cleared by all consults for discharge. Patient is being discharged home in a stable condition with guarded prognosis. physical exam:VSS, cardiovascular: Regular S1 and S2, no edema. Respiratory lungs clear, no rhonchi, no crackles no wheezes. Abdomen soft,mild diffuse tenderness, positive bowel sounds. psychiatry: A & O X 3, mood and affect normal,No focal deficits. The impression and plan of care has been dictated as directed. : I performed a history and examination of this patient, discussed the same with the dictator. I agree with the dictator's note ,documented as a scribe. Any additional findings or plans will be noted. time taken:35 minutes Patient Condition at Discharge: Stable Plan - Discharge Summary Discharge Rx Participant: Yes New Discharge Prescriptions: New Pantoprazole Sodium [Protonix] 40 mg PO BID #60 tablet. HYDROcodone/APAP 7.5-325MG [[place] 7.5] 1 each PO Q4H PRN #30 tab PRN Reason: Pain Continue Multivitamins, Thera [Multivitamin (formulary)] 1 tab PO DAILY Diazepam [Valium] 10 mg PO HS HYDROcodone/APAP 7.5-325MG [[place] 7.5-325] 1 tab PO Q6HR PRN PRN Reason: Severe Pain Discharge Medication List Multivitamins, Thera [Multivitamin (formulary)] 1 tab PO DAILY 03/01/17 [History ] Diazepam [Valium] 10 mg PO HS 07/17/17 [History] HYDROcodone/APAP 7.5-325MG [[place] 7.5-325] 1 tab PO Q6HR PRN 07/17/17 [History] Pantoprazole Sodium [Protonix] 40 mg PO BID #60 tablet. 07/22/17 [Rx] HYDROcodone/APAP 7.5-325MG [[place] 7.5] 1 each PO Q4H PRN #30 tab 07/25/17 [Rx] Follow up Appointment(s)/Referral(s): Berlin Vallejo MD [STAFF PHYSICIAN] - As Needed Kelsey Ruiz MD [Primary Care Provider] - 3 Days (FOLLOW UP ON AT 1:20PM) Cali Jha MD [STAFF PHYSICIAN] - 10 Days (July AT 2PM) Ambulatory/Diagnostic Orders: Complete Blood Count w/diff [LAB.AMB] Time Frame: 3 Days, Location: Determined By Patient Activity/Diet/Wound Care/Special Instructions: OK TO DISCHARGE HOME, FOLLOW UP DIRECTED. PER DR JHA IF PAIN PERSISTS OR WORSENS WILL NEED EVALUATION AT [facility]. Discharge Disposition: HOME SELF-CARE
== END 2017-07-25 15:01 | disposition home or self-care (01) | DRG 392 ==
LOC: EC 16:36 → 6PED 19:42 → OBSVTOIN 07-23 13:56 → 6PED 07-25 12:37
PROVIDERS: ADMIT Internal Medicine; ATTEND Internal Medicine
PROC: 0D768ZZ Dilation of Stomach, Via Natural or Artificial Opening Endoscopic (ICD-10-PCS; principal; 2017-07-23)
DX: R10.10 Upper abdominal pain, unspecified (principal); F41.0 Panic disorder [episodic paroxysmal anxiety]; K29.60 Other gastritis without bleeding; G89.29 Other chronic pain; K59.00 Constipation, unspecified; K31.89 Other diseases of stomach and duodenum; N83.02 Follicular cyst of left ovary; Z80.0 Family history of malignant neoplasm of digestive organs; Z80.49 Family history of malignant neoplasm of other genital organs; Z82.49 Family history of ischemic heart disease and other diseases of the circulatory system; Z98.84 Bariatric surgery status; Z79.899 Other long term (current) drug therapy; Z88.1 Allergy status to other antibiotic agents
CPT/HCPCS: 36415; 43239; 43249; 74018; 74177; 74220; 76856; 80053; 81001; 81025; 82150; 83690; 85025; 88305; 88342; 96361; 96374; 96375; 96376; 99285

== ENCOUNTER 2017-08-09 10:49 | Day surgery (SDC) | payer BC ==
[2017-08-08 11:33] VITALS: BMI 32.9
[~2017-08-09 10:49] MED LIST changes: -DEXAMETHASONE SOD PHOSPHATE 10 MG/ML 1 ML VIAL IV ONE; -MIDAZOLAM 2 MG/2 ML VIAL IV PRN; -ONDANSETRON 4 MG/2 ML VIAL IVP ONE; -Pre Op ABX Message 1 EACH MISC MISCELLANE ONE; -SCOPOLAMINE 1.5MG/72HR PATCH TRANSDERM ONE
[2017-08-09 11:23] VITALS: TEMP 98.2
[2017-08-09] MEDS ORDERED: PROPOFOL 10 MG/ML 20 ML VIAL IV ONE (12:24)
--- NOTE | 2017-08-09 12:26 | P.GSHP ---
History of Present Illness H&P Date: 08/09/17 Chief Complaint: Constipation, abdominal pain This a 27-year-old female referred from Dr. Ruiz. Patient presents today for colonoscopy. She's had chronic issues with constipation and bilateral lower quadrant abdominal pain. Past Medical History Past Medical History: No Reported History Additional Past Medical History / Comment(s): ABDOMINAL PAIN, CONSTIPATION/ DIARRHEA, Elevated liver enzymes for unknown reason. WEARING BOOT ON LEFT FOOT POST SX. UNABLE TO WALK LONG DISTANCES ON FOOT AT THIS TIME History of Any Multi-Drug Resistant Organisms: None Reported Past Surgical History: Cholecystectomy, Orthopedic Surgery Additional Past Surgical History / Comment(s): LEFT FOOT SX, Right fallopian tube removed May 2015, SLEEVE GASTRECTOMY 03/26/15, EGD Past Anesthesia/Blood Transfusion Reactions: Postoperative Nausea & Vomiting ( PONV) Smoking Status: Never smoker - Past Family History Sister(s) Family Medical History: Cancer, Deep Vein Thrombosis (DVT) Additional Family Medical History / Comment(s): Cervical cancer Mother Family Medical History: Hyperlipidemia Additional Family Medical History / Comment(s): HEART PROBLEMS, IRREG RYTHM Father Family Medical History: Hyperlipidemia, Hypertension Additional Family Medical History / Comment(s): Paternal grandfather had kidney disorder and colon cancer. Medications and Allergies Home Medications Medication Instructions Recorded Confirmed Type Multivitamins, Thera [Multivitamin 1 tab PO DAILY 03/01/17 08/08/17 History (formulary)] Diazepam [Valium] 10 mg PO HS 07/17/17 08/08/17 History HYDROcodone/APAP 7.5-325MG [[place] 1 tab PO Q6HR PRN 07/17/17 08/08/17 History 7.5-325] Pantoprazole Sodium [Protonix] 40 mg PO BID #60 tablet. 07/22/17 08/08/17 Rx Ranitidine HCl [Zantac] 300 mg PO BID 08/08/17 08/08/17 History Allergies Allergy/AdvReac Type Severity Reaction Status Date / Time amoxicillin [Amoxicillin] AdvReac Yeast Verified 08/08/17 11:12 Infection hydrocodone [From [place]] AdvReac Nausea & Verified 08/08/17 11:12 Vomiting Surgical - Exam Vital Signs Temp Pulse Resp BP Pulse Ox 98.2 F 92 16 128/89 99 08/09/17 11:21 08/09/17 11:21 08/09/17 11:21 08/09/17 11:21 08/09/17 11:21 - General well developed, no distress - Eyes PERRL - ENT normal pinna - Neck no masses - Respiratory normal expansion - Cardiovascular Rhythm: regular - Abdomen Mild tenderness in the right and left lower quadrant Abdomen: soft Assessment and Plan Assessment: Constipation, bilateral lower quadrant abdominal pain. We'll perform colonoscopy.
--- NOTE | 2017-08-09 12:38 | P.OP ---
Date of Procedure: 08/09/17 Preoperative Diagnosis: Constipation Abdominal pain Postoperative Diagnosis: Normal colonoscopy Procedure(s) Performed: Colonoscopy Anesthesia: MAC Surgeon: Cali Jha Pathology: none sent Condition: stable Disposition: PACU Description of Procedure: N PROCEDURE: The patient was placed on the endoscopy table in the lateral position. Digital rectal examination was performed which revealed no abnormalities. . Flexible colonoscope was then placed in the patient's anus and passed throughout the entire colon. The ileocecal valve was visualized. The cecum, ascending, transverse, descending and sigmoid colon were normal. The rectum was normal as well. There were no masses, polyps or diverticula noted in the entire colon. SUMMARY OF FINDINGS: Normal colonoscopy.
[2017-08-09] MEDS ORDERED: fentaNYL (PF) 50 MCG/ML 2 ML AMP IV ONE (13:08)
[2017-08-09] MEDS ORDERED: HYDROmorphone 1 MG/ML 1 ML SYRINGE IVP ONE (13:20)
[2017-08-09] MEDS ORDERED: MORPHINE SULFATE 10 MG/ML SYRINGE IV ONE ×2 (14:17→15:13)
[2017-08-09] MEDS ORDERED: ONDANSETRON 4 MG/2 ML VIAL IVP ONE (14:29)
[2017-08-09 14:42] VITALS: RESP 16
--- NOTE | 2017-08-09 14:50 | XR ---
EXAMINATION TYPE: XR abdomen 2V DATE OF EXAM: 08/09/2017 2:40 PM CLINICAL HISTORY: Abdominal pain TECHNIQUE: Upright and supine abdominal radiograph's were obtained. COMPARISON: 07/17/2017. FINDINGS: Scattered gas is seen in non-distended small bowel loops. Gas and fecal material is seen in non-distended colon. No differential air-fluid levels. There is no visceromegaly, pneumoperitoneum, or abnormal calcification appreciated. The lung bases are clear and the osseous structures are intact . Surgical sutures are seen within the left upper quadrant. Cholecystectomy changes are noted within the right upper quadrant. IMPRESSION: Nonobstructive bowel gas pattern.
[2017-08-09 15:58] VITALS: BP 112/58; PULSE 100
== END 2017-08-09 16:20 | disposition home or self-care (01) ==
LOC: ORWHC2ENDO 10:49
PROVIDERS: ATTEND Surgery
DX: K59.00 Constipation, unspecified (principal); K21.9 Gastro-esophageal reflux disease without esophagitis; F39 Unspecified mood [affective] disorder; R10.32 Left lower quadrant pain; R10.31 Right lower quadrant pain; Z90.3 Acquired absence of stomach [part of]; Z98.51 Tubal ligation status; Z82.49 Family history of ischemic heart disease and other diseases of the circulatory system; Z80.0 Family history of malignant neoplasm of digestive organs; Z79.899 Other long term (current) drug therapy; Z88.0 Allergy status to penicillin; Z88.5 Allergy status to narcotic agent; Z90.49 Acquired absence of other specified parts of digestive tract
CPT/HCPCS: 74019; 45378; J2270; J2405; J3010; J1170; J2704

== ENCOUNTER 2017-08-11 12:31 | Observation (INO) | payer BC ==
[2017-08-11] MEDS ORDERED: HYDROmorphone 2 MG/ML 1 ML SYRINGE IVP STA ×2 (13:53→16:13)
[2017-08-11] MEDS ORDERED: SODIUM CHLORIDE 0.9% 1,000 ML IV STA (13:53)
[2017-08-11] MEDS ORDERED: RX INFO: IV CONTRAST WAS GIVEN 1 EACH MISC MISCELLANE PRN (13:53)
[2017-08-11] MEDS ORDERED: ONDANSETRON 4 MG/2 ML VIAL IVP STA (13:53)
--- NOTE | 2017-08-11 13:56 | ED ---
General Adult HPI - General Chief complaint: Abdominal Pain Stated complaint: PO Colonoscopy/Abdominal Pain Time Seen by Provider: 08/11/17 13:44 Source: patient, RN notes reviewed Mode of arrival: ambulatory Limitations: no limitations - History of Present Illness Initial comments: Patient is a 27-year-old female status post colonoscopy 2 days, who presents emergency room today with chief complaint of increased lower abdominal pain. She does admit that she was experiencing pain on the right side of the lower abdomen. She states she's had this off-and-on over the last several months. States had a colonoscopy 2 days ago and since waking up from a colonoscopy is having increased pain both in the right lower side radiating across the lower abdomen. Patient does admit to feeling nauseated. She admits to having a loose stool yesterday. Patient denies any other associated symptoms. Patient denies any recent fever, chills, shortness of breath, chest pain, back pain, vomiting, numbness or tingling, dysuria or hematuria, constipation, headaches or visual changes, or any other complaints. - Related Data Home Medications Medication Instructions Recorded Confirmed Multivitamins, Thera [Multivitamin 1 tab PO DAILY 03/01/17 08/11/17 (formulary)] Diazepam [Valium] 10 mg PO HS 07/17/17 08/11/17 HYDROcodone/APAP 7.5-325MG [[place] 1 tab PO Q6HR PRN 07/17/17 08/11/17 7.5-325] Ranitidine HCl [Zantac] 300 mg PO BID 08/08/17 08/11/17 Previous Rx's Medication Instructions Recorded Pantoprazole Sodium [Protonix] 40 mg PO BID #60 tablet. 07/22/17 Allergies Allergy/AdvReac Type Severity Reaction Status Date / Time amoxicillin [Amoxicillin] AdvReac Yeast Verified 08/11/17 13:59 Infection hydrocodone [From [place]] AdvReac Nausea & Verified 08/11/17 13:59 Vomiting Review of Systems ROS Statement: Those systems with pertinent positive or pertinent negative responses have been documented in the HPI. ROS Other: All systems not noted in ROS Statement are negative. Past Medical History Past Medical History: No Reported History Additional Past Medical History / Comment(s): ABDOMINAL PAIN, CONSTIPATION/ DIARRHEA, Elevated liver enzymes for unknown reason. WEARING BOOT ON LEFT FOOT POST SX. UNABLE TO WALK LONG DISTANCES ON FOOT AT THIS TIME History of Any Multi-Drug Resistant Organisms: None Reported Past Surgical History: Cholecystectomy, Orthopedic Surgery Additional Past Surgical History / Comment(s): LEFT FOOT SX, Right fallopian tube removed May 2015, SLEEVE GASTRECTOMY 03/26/15, EGD Past Anesthesia/Blood Transfusion Reactions: Postoperative Nausea & Vomiting ( PONV) Past Psychological History: Panic Disorder Smoking Status: Never smoker - Past Family History Sister(s) Family Medical History: Cancer, Deep Vein Thrombosis (DVT) Additional Family Medical History / Comment(s): Cervical cancer Mother Family Medical History: Hyperlipidemia Additional Family Medical History / Comment(s): HEART PROBLEMS, IRREG RYTHM Father Family Medical History: Hyperlipidemia, Hypertension Additional Family Medical History / Comment(s): Paternal grandfather had kidney disorder and colon cancer. General Exam - General Exam Comments Initial Comments: General: The patient is awake and alert, in no distress, and does not appear acutely ill. Eye: Pupils are equal, round and reactive to light, extra-ocular movements are intact. No nystagmus. There is normal conjunctiva bilaterally. No signs of icterus. Ears, nose, mouth and throat: There are moist mucous membranes and no oral lesions. Neck: The neck is supple, there is no tenderness or JVD. Cardiovascular: There is a regular rate and rhythm. No murmur, rub or gallop is appreciated. Respiratory: Lungs are clear to auscultation, respirations are non-labored, breath sounds are equal. No wheezes, stridor, rales, or rhonchi. Gastrointestinal: Normal appearance of the abdomen. Normal bowel sounds. Abdomen is soft on palpation. Increased tenderness greatest the right lower quadrant. Tender in left lower quadrant. No rebound tenderness no guarding. Musculoskeletal: Normal ROM, no tenderness. Strength 5/5. Sensation intact. Pulses equal bilaterally 2+. Neurological: A&O x 3. CN II-XII intact, There are no obvious motor or sensory deficits. Coordination appears grossly intact. Speech is normal. Skin: Skin is warm and dry and no rashes or lesions are noted. Psychiatric: Cooperative, appropriate mood & affect, normal judgment. Limitations: no limitations Course Vital Signs 08/11/17 08/11/17 08/11/17 12:36 15:01 16:30 Temperature 97.5 F L 98.0 F Pulse Rate 103 H 80 Respiratory 18 18 16 Rate Blood Pressure 137/77 113/64 O2 Sat by Pulse 100 100 Oximetry Medical Decision Making - Medical Decision Making Patient's CT reviewed and showing no acute abnormality to account the patient's symptoms. She does admit that she was advised by on-call surgeon to come here to the emergency room. She states she's talked to Dr. Arriola in the past about exploratory laparotomy. Patient still expressing discomfort in lower abdomen. Pain medicine has not helped improve her symptoms very much. Patient will be admitted with surgical consult. Labs are unremarkable. Negative lactic gas. Vital stable with no fever. No evidence for any free air. - Lab Data Result diagrams: 08/11/17 14:50 08/11/17 15:54 Lab Results 08/11/17 08/11/17 08/11/17 Range/Units 14:50 14:50 14:50 WBC 7.3 (3.8-10.6) k/uL RBC 4.56 (3.80-5.40) m/uL Hgb 12.9 (11.4-16.0) gm/dL Hct 41.2 (34.0-46.0) % MCV 90.3 (80.0-100.0) fL MCH 28.4 (25.0-35.0) pg MCHC 31.4 (31.0-37.0) g/dL RDW 13.8 (11.5-15.5) % Plt Count 224 (150-450) k/uL Neutrophils % 63 % Lymphocytes % 24 % Monocytes % 5 % Eosinophils % 5 % Basophils % 1 % Neutrophils # 4.6 (1.3-7.7) k/uL Lymphocytes # 1.7 (1.0-4.8) k/uL Monocytes # 0.4 (0-1.0) k/uL Eosinophils # 0.4 (0-0.7) k/uL Basophils # 0.0 (0-0.2) k/uL Sodium (137-145) mmol/L Potassium (3.5-5.1) mmol/L Chloride (98-107) mmol/L Carbon Dioxide (22-30) mmol/L Anion Gap mmol/L BUN (7-17) mg/dL Creatinine (0.52-1.04) mg/dL Est GFR (MDRD) Af Amer (>60 ml/min/1.73 sqM) Est GFR (MDRD) Non-Af (>60 ml/min/1.73 sqM) Glucose (74-99) mg/dL Plasma Lactic Acid Roney (0.7-2.0) mmol/L Calcium (8.4-10.2) mg/dL Total Bilirubin (0.2-1.3) mg/dL AST (14-36) U/L ALT (9-52) U/L Alkaline Phosphatase (38-126) U/L Total Protein (6.3-8.2) g/dL Albumin (3.5-5.0) g/dL Amylase (30-110) U/L Lipase (23-300) U/L Urine Color Yellow Urine Appearance Cloudy H (Clear) Urine pH 7.0 (5.0-8.0) Ur Specific [place] 1.023 (1.001-1.035) Urine Protein Trace H (Negative) Urine Glucose (UA) Negative (Negative) Urine Ketones 1+ H (Negative) Urine Blood Negative (Negative) Urine Nitrite Negative (Negative) Urine Bilirubin Negative (Negative) Urine Urobilinogen 2.0 (<2.0) mg/dL Ur Leukocyte Esterase Trace H (Negative) Urine WBC 4 (0-5) /hpf Ur Squamous Epith Cells 14 H (0-4) /hpf Calcium Oxalate Crystal Rare H (None) /hpf Urine Bacteria Rare H (None) /hpf Urine Mucus Many H (None) /hpf Urine HCG, Qual Not Detected (Not Detectd) 08/11/17 08/11/17 Range/Units 15:54 15:54 WBC (3.8-10.6) k/uL RBC (3.80-5.40) m/uL Hgb (11.4-16.0) gm/dL Hct (34.0-46.0) % MCV (80.0-100.0) fL MCH (25.0-35.0) pg MCHC (31.0-37.0) g/dL RDW (11.5-15.5) % Plt Count (150-450) k/uL Neutrophils % % Lymphocytes % % Monocytes % % Eosinophils % % Basophils % % Neutrophils # (1.3-7.7) k/uL Lymphocytes # (1.0-4.8) k/uL Monocytes # (0-1.0) k/uL Eosinophils # (0-0.7) k/uL Basophils # (0-0.2) k/uL Sodium 140 (137-145) mmol/L Potassium 3.9 (3.5-5.1) mmol/L Chloride 107 (98-107) mmol/L Carbon Dioxide 24 (22-30) mmol/L Anion Gap 9 mmol/L BUN 15 (7-17) mg/dL Creatinine 0.60 (0.52-1.04) mg/dL Est GFR (MDRD) Af Amer >60 (>60 ml/min/1.73 sqM) Est GFR (MDRD) Non-Af >60 (>60 ml/min/1.73 sqM) Glucose 77 (74-99) mg/dL Plasma Lactic Acid Roney 1.0 (0.7-2.0) mmol/L Calcium 8.4 (8.4-10.2) mg/dL Total Bilirubin 0.4 (0.2-1.3) mg/dL AST 20 (14-36) U/L ALT 24 (9-52) U/L Alkaline Phosphatase 51 (38-126) U/L Total Protein 5.7 L (6.3-8.2) g/dL Albumin 3.3 L (3.5-5.0) g/dL Amylase 36 (30-110) U/L Lipase 147 (23-300) U/L Urine Color Urine Appearance (Clear) Urine pH (5.0-8.0) Ur Specific Hood (1.001-1.035) Urine Protein (Negative) Urine Glucose (UA) (Negative) Urine Ketones (Negative) Urine Blood (Negative) Urine Nitrite (Negative) Urine Bilirubin (Negative) Urine Urobilinogen (<2.0) mg/dL Ur Leukocyte Esterase (Negative) Urine WBC (0-5) /hpf Ur Squamous Epith Cells (0-4) /hpf Calcium Oxalate Crystal (None) /hpf Urine Bacteria (None) /hpf Urine Mucus (None) /hpf Urine HCG, Qual (Not Detectd) Disposition Clinical Impression: Intractable abdominal pain Disposition: ADMITTED IP TO THIS [facility] Condition: Stable Instructions: Abdominal Pain (ED) Referrals: Kelsey Ruiz MD [Primary Care Provider] - 1-2 days Time of Disposition: 17:14
[2017-08-11 15:09] LABS: Basophils % (A) 1 %; Eosinophils # (A) 0.4 k/uL (0-0.7); Eosinophils % (A) 5 %; HCT 41.2 % (34.0-46.0); HGB 12.9 gm/dL (11.4-16.0); Lymphocytes # (A) 1.7 k/uL (1.0-4.8); Lymphocytes % (A) 24 %; MCH 28.4 pg (25.0-35.0); MCHC 31.4 g/dL (31.0-37.0); MCV 90.3 fL (80.0-100.0); Mean Platelet Volume 8.3; Monocytes # (A) 0.4 k/uL (0-1.0); Monocytes % (A) 5 %; Neutrophils # (A) 4.6 k/uL (1.3-7.7); Neutrophils % (A) 63 %; Platelet Count 224 k/uL (150-450); RBC 4.56 m/uL (3.80-5.40); RDW 13.8 % (11.5-15.5); WBC 7.3 k/uL (3.8-10.6)
[2017-08-11 15:16] LABS: Appearance,Urine Cloudy (Clear); Bacteria,Urine Rare /hpf; Bilirubin,Urine Negative (Negative); Blood,Urine Negative (Negative); Calcium Oxalate Crystals,Urine Rare /hpf; Color,Urine Yellow; Glucose,Urine (UA) Negative (Negative); Ketones,Urine 1+ (Negative); Leukocyte Esterase,Urine Trace (Negative); Mucus,Urine Many /hpf; Nitrite,Urine Negative (Negative); Protein,Urine Trace (Negative); Specific Gravity,Urine 1.023 (1.001-1.035); Squamous Epithelial Cell,Urine 14 /hpf (0-4); WBC,Urine 4 /hpf (0-5)
--- NOTE | 2017-08-11 15:36 | XR ---
EXAMINATION TYPE: XR KUB DATE OF EXAM: 08/11/2017 3:30 PM CLINICAL HISTORY: Abdominal pain TECHNIQUE: Upright abdominal radiograph was obtained. COMPARISON: None. FINDINGS: Scattered gas is seen in non-distended small bowel loops. Gas and fecal material is seen in non-distended colon. There is no visceromegaly, pneumoperitoneum, or abnormal calcification apprecia los. The lung bases are clear and the osseous structures are intact. Cholecystectomy clips are noted within the right upper quadrant IMPRESSION: Nonobstructive bowel gas pattern.
--- NOTE | 2017-08-11 16:05 | CT ---
EXAMINATION TYPE: CT abdomen pelvis w con DATE OF EXAM: 08/11/2017 HISTORY: Lower abd pain with recent colonoscopy. CT DLP: 1581mGycm Automated Exposure Control for Dose Reduction was Utilized. CONTRAST: CT scan of the abdomen and pelvis is performed with IV Contrast, patient injected with 100ml mL of Om nipaque 300. COMPARISON: 07/22/2017. FINDINGS: LUNG BASES: No significant abnormality is appreciated. LIVER/GB: Again there is a linear bandlike focal area of hypoattenuation within the right hepatic lob e dating back to 05/03/2017. This could represent atypical focal fatty infiltration or scarring from prior trauma. No perihepatic fluid is seen. Cholecystectomy has been performed. PANCREAS: No significant abnormality is seen. SPLEEN: No significant abnormality is seen. ADRENALS: No significant abnormality is seen. KIDNEYS: There is a 2 mm nonobstructing left midpole renal calculus. No hydronephrosis or right-sided nephrolithiasis. No calcifications along the courses of the ureters or within the urinary bladder. BOWEL: Postsurgical changes of the greater curvature the stomach. Appendix is air-filled and within n ormal limits. No dilated bowel to suggest obstruction. UTERUS/ADNEXA:. Crenulated appearing left adnexal lesion on the prior exam has increased in the inter im now measuring 2.7 cm, this meet size criteria for a dominant follicle but not a cyst. LYMPH NODES: No greater than 1cm abdominal or pelvic lymph nodes are appreciated. OSSEOUS STRUCTURES: Again the nonspecific punctate sclerotic focus of the left femoral head likely re lates to a bone island although other etiologies are possible. Osseous structures appear intact. IMPRESSION: 1. No significant acute finding is seen to account for patient's clinical symptoms. No evidence of pn eumoperitoneum or bowel obstruction. 2. Minimally enlarging left ovarian follicle. 3. Redemonstration of a bandlike area of hypoattenuation within the right hepatic lobe that may repre sent sequela of prior trauma/scarring or atypical focal fatty infiltration. This is unchanged from prior exam.
[2017-08-11] MEDS ORDERED: KETOROLAC 30 MG/ML 1 ML VIAL IVP STA (16:13)
[2017-08-11 16:27] LABS: ALT 24 U/L (9-52); AST 20 U/L (14-36); Albumin 3.3 g/dL (3.5-5.0); Alkaline Phosphatase 51 U/L (38-126); Amylase 36 U/L (30-110); Anion Gap 9 mmol/L; Blood Urea Nitrogen 15 mg/dL (7-17); Calcium 8.4 mg/dL (8.4-10.2); Carbon Dioxide 24 mmol/L (22-30); Chloride 107 mmol/L (98-107); Glucose 77 mg/dL (74-99); Lipase 147 U/L (23-300); Potassium 3.9 mmol/L (3.5-5.1); Sodium 140 mmol/L (137-145); Total Bilirubin 0.4 mg/dL (0.2-1.3); Total Protein 5.7 g/dL (6.3-8.2)
[2017-08-11] MEDS ORDERED: LORazepam 2 MG/ML INJ IV PRN (17:18)
[2017-08-11] MEDS ORDERED: NALOXONE 0.4 MG/ML 1 ML VIAL IV PRN (17:18)
[2017-08-11] MEDS ORDERED: ONDANSETRON 4 MG/2 ML VIAL IVP PRN (17:18)
[2017-08-11 18:53] VITALS: BMI 32.5
[2017-08-11] MEDS: LACTATED RINGERS 1,000 ML IV SCH (19:57)
[2017-08-11] MEDS: HYDROmorphone 2 MG/ML 1 ML SYRINGE IVP PRN ×2 (19:57→23:19)
[2017-08-12] MEDS: HYDROmorphone 2 MG/ML 1 ML SYRINGE IVP PRN ×3 (02:23→09:41)
[2017-08-12] MEDS: LACTATED RINGERS 1,000 ML IV SCH (04:40)
[2017-08-12 06:36] LABS: Basophils % (A) 0 %; Eosinophils # (A) 0.3 k/uL (0-0.7); Eosinophils % (A) 6 %; HCT 31.2 % (34.0-46.0); Hypochromasia Slight; Lymphocytes # (A) 1.7 k/uL (1.0-4.8); Lymphocytes % (A) 37 %; MCH 28.7 pg (25.0-35.0); MCHC 32.2 g/dL (31.0-37.0); MCV 89.1 fL (80.0-100.0); Mean Platelet Volume 8.6; Monocytes # (A) 0.2 k/uL (0-1.0); Monocytes % (A) 5 %; Neutrophils # (A) 2.2 k/uL (1.3-7.7); Neutrophils % (A) 49 %; Platelet Count 188 k/uL (150-450); RDW 14.6 % (11.5-15.5); WBC 4.6 k/uL (3.8-10.6)
[2017-08-12 06:47] LABS: ALT 28 U/L (9-52); AST 18 U/L (14-36); Albumin 2.8 g/dL (3.5-5.0); Alkaline Phosphatase 48 U/L (38-126); Anion Gap 8 mmol/L; Blood Urea Nitrogen 14 mg/dL (7-17); Calcium 8.7 mg/dL (8.4-10.2); Carbon Dioxide 28 mmol/L (22-30); Chloride 108 mmol/L (98-107); Glucose 71 mg/dL (74-99); Sodium 144 mmol/L (137-145); Total Bilirubin 0.6 mg/dL (0.2-1.3); Total Protein 5.1 g/dL (6.3-8.2)
--- NOTE | 2017-08-12 13:15 | P.HPIM ---
History of Present Illness 27-year-old female status post colonoscopy 2 days, who presents emergency room today with chief complaint of increased lower abdominal pain. She does admit that she was experiencing pain on the right side of the lower abdomen. She states she's had this off-and-on over the last several months. States had a colonoscopy 2 days ago and since waking up from a colonoscopy is having increased pain both in the right lower side radiating across the lower abdomen. Patient does admit to feeling nauseated. She admits to having a loose stool yesterday. Patient denies any other associated symptoms. Patient denies any recent fever, chills, shortness of breath, chest pain, back pain, vomiting, numbness or tingling, dysuria or hematuria, constipation, headaches or visual changes, or any other complaints. Patient has multiple hospitalizations for similar abdominal pain was extensively evaluated in the past patient follows with Dr. Archer Senior surgery for her abdominal pain who suggested follow-up as an outpatient in [facility] nothing much can be offered as no etiology was found for her abdominal pain. Patient is still complaining of 8 x 10 abdominal pain. Patient denied any fever chills or diarrhea urease completely contaminated urine sample. Patient's he is not consistent with urinary tract infection. Patient has narcotic seeking behavior. Opiates that were ordered for her abdominal pain from ER were discontinued Review of Systems REVIEW OF SYSTEMS: CONSTITUTIONAL: No fever, no malaise, no fatigue. HEENT: No recent visual problems or hearing problems. Denied any sore throat. CARDIOVASCULAR: No chest pain, orthopnea, PND, no palpitations, no syncope. PULMONARY: No shortness of breath, no cough, no hemoptysis. GASTROINTESTINAL: No diarrhea, no nausea, no vomiting, NEUROLOGICAL: No headaches, no weakness, no numbness. HEMATOLOGICAL: Denies any bleeding or petechiae. GENITOURINARY: Denies any burning micturition, frequency, or urgency. MUSCULOSKELETAL/RHEUMATOLOGICAL: Denies any joint pain, swelling, or any muscle pain. ENDOCRINE: Denies any polyuria or polydipsia. The rest of the 14-point review of systems is negative. Past Medical History Past Medical History: No Reported History Additional Past Medical History / Comment(s): ABDOMINAL PAIN, CONSTIPATION/ DIARRHEA, Elevated liver enzymes for unknown reason. WEARING BOOT ON LEFT FOOT POST SX. UNABLE TO WALK LONG DISTANCES ON FOOT AT THIS TIME History of Any Multi-Drug Resistant Organisms: None Reported Past Surgical History: Cholecystectomy, Orthopedic Surgery Additional Past Surgical History / Comment(s): LEFT FOOT SX, Right fallopian tube removed May 2015, SLEEVE GASTRECTOMY 03/26/15, EGD Past Anesthesia/Blood Transfusion Reactions: Postoperative Nausea & Vomiting ( PONV) Additional Psychological History / Comment(s): PASSED OUT AT WORK AND HAD PANIC ATTACK. one time issue per pt. no problems since Smoking Status: Never smoker Past Alcohol Use History: None Reported Past Drug Use History: None Reported - Past Family History Sister(s) Family Medical History: Cancer, Deep Vein Thrombosis (DVT) Additional Family Medical History / Comment(s): Cervical cancer Mother Family Medical History: Hyperlipidemia Additional Family Medical History / Comment(s): HEART PROBLEMS, IRREG RYTHM Father Family Medical History: Hyperlipidemia, Hypertension Additional Family Medical History / Comment(s): Paternal grandfather had kidney disorder and colon cancer. Medications and Allergies Home Medications Medication Instructions Recorded Confirmed Type Multivitamins, Thera [Multivitamin 1 tab PO DAILY 03/01/17 08/11/17 History (formulary)] Diazepam [Valium] 10 mg PO HS 07/17/17 08/11/17 History HYDROcodone/APAP 7.5-325MG [[place] 1 tab PO Q6HR PRN 07/17/17 08/11/17 History 7.5-325] Pantoprazole Sodium [Protonix] 40 mg PO BID #60 tablet. 07/22/17 08/11/17 Rx Ranitidine HCl [Zantac] 300 mg PO BID 08/08/17 08/11/17 History Allergies Allergy/AdvReac Type Severity Reaction Status Date / Time amoxicillin [Amoxicillin] AdvReac Yeast Verified 08/11/17 13:59 Infection hydrocodone [From [place]] AdvReac Nausea & Verified 08/11/17 13:59 Vomiting Physical Exam Vitals: Vital Signs Temp Pulse Pulse Resp BP BP Pulse Ox 08/12/17 08:15 97.9 F 86 17 115/77 100 08/12/17 02:15 97.9 F 99 16 97/55 99 08/11/17 18:45 97.8 F 73 18 125/80 100 08/11/17 18:22 98.0 F 85 16 140/81 96 08/11/17 16:30 98.0 F 80 16 113/64 100 08/11/17 15:01 18 Intake and Output 08/11/17 08/12/17 08/12/17 22:59 06:59 14:59 Intake Total 500 950 Balance 500 950 Intake: Amount of Fluid Infused ( 500 ml) Intake, IV Titration 950 Amount Lactated Ringers 1,000 ml 950 @ 100 mls/hr IV .Q10H JULIO Rx#:[id number] Other: # Voids 1 2 Weight 83.461 kg PHYSICAL EXAMINATION: GENERAL: The patient is alert and oriented x3, not in any acute distress. Well developed, well nourished. HEENT: Pupils are round and equally reacting to light. EOMI. No scleral icterus. No conjunctival pallor. Normocephalic, atraumatic. No pharyngeal erythema. No thyromegaly. CARDIOVASCULAR: S1 and S2 present. No murmurs, rubs, or gallops. PULMONARY: Chest is clear to auscultation, no wheezing or crackles. ABDOMEN: Soft, no rebound or rigidity but patient does have some subjective to suprapubic tenderness, nondistended, normoactive bowel sounds. No palpable organomegaly. MUSCULOSKELETAL: No joint swelling or deformity. EXTREMITIES: No cyanosis, clubbing, or pedal edema. NEUROLOGICAL: Gross neurological examination did not reveal any focal deficits. SKIN: No rashes. Results CBC & Chem 7: 08/12/17 06:16 08/12/17 06:16 Labs: Abnormal Lab Results - Last 24 Hours (Table) 08/11/17 08/11/17 08/12/17 Range/Units 14:50 15:54 06:16 RBC 3.50 L (3.80-5.40) m/uL Hgb 10.0 L D (11.4-16.0) gm/dL Hct 31.2 L (34.0-46.0) % Chloride (98-107) mmol/L Glucose (74-99) mg/dL Total Protein 5.7 L (6.3-8.2) g/dL Albumin 3.3 L (3.5-5.0) g/dL Urine Appearance Cloudy H (Clear) Urine Protein Trace H (Negative) Urine Ketones 1+ H (Negative) Ur Leukocyte Esterase Trace H (Negative) Ur Squamous Epith Cells 14 H (0-4) /hpf Calcium Oxalate Crystal Rare H (None) /hpf Urine Bacteria Rare H (None) /hpf Urine Mucus Many H (None) /hpf 08/12/17 Range/Units 06:16 RBC (3.80-5.40) m/uL Hgb (11.4-16.0) gm/dL Hct (34.0-46.0) % Chloride 108 H (98-107) mmol/L Glucose 71 L (74-99) mg/dL Total Protein 5.1 L (6.3-8.2) g/dL Albumin 2.8 L (3.5-5.0) g/dL Urine Appearance (Clear) Urine Protein (Negative) Urine Ketones (Negative) Ur Leukocyte Esterase (Negative) Ur Squamous Epith Cells (0-4) /hpf Calcium Oxalate Crystal (None) /hpf Urine Bacteria (None) /hpf Urine Mucus (None) /hpf Thrombosis Risk Factor Assmnt - Choose All That Apply Any of the Below Risk Factors Present?: Yes Each Factor Represents 1 point: Obesity (BMI >25) Thrombosis Risk Factor Assessment Total Risk Factor Score: 1 Thrombosis Risk Factor Assessment Level: Low Risk Assessment and Plan Plan: -Abdominal pain: Etiology is unknown extensive workup did not reveal any significant findings patient most probably is malingering or psychosomatic in nature.-History of bariatric surgery in the past. -Contaminated urine sample without any urinary tract infection rule out UTI
--- NOTE | 2017-08-12 13:16 | P.DS ---
Providers Date of admission: 08/11/17 17:52 Attending physician: Lucia Das Consults: 08/11/17 17:18 Consult Physician Stat Consulting Provider: Cali Jha Consult Reason/Comments: Abdominal pain Do you want consulting provider notified?: Yes Primary care physician: Sara Cole [facility] Course: Please refer to my HPI Patient Condition at Discharge: Stable Plan - Discharge Summary New Discharge Prescriptions: No Action Multivitamins, Thera [Multivitamin (formulary)] 1 tab PO DAILY Diazepam [Valium] 10 mg PO HS HYDROcodone/APAP 7.5-325MG [[place] 7.5-325] 1 tab PO Q6HR PRN PRN Reason: Severe Pain Pantoprazole Sodium [Protonix] 40 mg PO BID #60 tablet. Ranitidine HCl [Zantac] 300 mg PO BID Discharge Medication List Multivitamins, Thera [Multivitamin (formulary)] 1 tab PO DAILY 03/01/17 [History ] Diazepam [Valium] 10 mg PO HS 07/17/17 [History] HYDROcodone/APAP 7.5-325MG [[place] 7.5-325] 1 tab PO Q6HR PRN 07/17/17 [History] Pantoprazole Sodium [Protonix] 40 mg PO BID #60 tablet. 07/22/17 [Rx] Ranitidine HCl [Zantac] 300 mg PO BID 08/08/17 [History] Follow up Appointment(s)/Referral(s): Kelsey Ruiz MD [Primary Care Provider] - 3 Days Patient Instructions/Handouts: Abdominal Pain (ED)
[2017-08-12 13:23] VITALS: BP 114/75; PULSE 84; RESP 18; TEMP 98.1
--- NOTE | 2017-08-12 14:31 | P.GSCN ---
History of Present Illness Consult date: 08/12/17 Reason for Consult: Intractable abdominal pain History of present illness: This is a 27-year-old female well-known to myself. Patient was admitted through the emergency room with complaints of right and left lower quadrant abdominal pain. Patient has chronic issues abdominal pain. The patient's had a recent hospital for similar problem. Chin extensive workup including multiple CAT scans and x-rays. All her testing has been normal. She had a recent colonoscopy which was normal as well. Patient states that she had pain before colonoscopy and after her colonoscopy. She is requesting narcotic pain medications. Past Medical History Past Medical History: No Reported History Additional Past Medical History / Comment(s): ABDOMINAL PAIN, CONSTIPATION/ DIARRHEA, Elevated liver enzymes for unknown reason. WEARING BOOT ON LEFT FOOT POST SX. UNABLE TO WALK LONG DISTANCES ON FOOT AT THIS TIME History of Any Multi-Drug Resistant Organisms: None Reported Past Surgical History: Cholecystectomy, Orthopedic Surgery Additional Past Surgical History / Comment(s): LEFT FOOT SX, Right fallopian tube removed May 2015, SLEEVE GASTRECTOMY 03/26/15, EGD Past Anesthesia/Blood Transfusion Reactions: Postoperative Nausea & Vomiting ( PONV) Additional Psychological History / Comment(s): PASSED OUT AT WORK AND HAD PANIC ATTACK. one time issue per pt. no problems since Smoking Status: Never smoker Past Alcohol Use History: None Reported Past Drug Use History: None Reported - Past Family History Sister(s) Family Medical History: Cancer, Deep Vein Thrombosis (DVT) Additional Family Medical History / Comment(s): Cervical cancer Mother Family Medical History: Hyperlipidemia Additional Family Medical History / Comment(s): HEART PROBLEMS, IRREG RYTHM Father Family Medical History: Hyperlipidemia, Hypertension Additional Family Medical History / Comment(s): Paternal grandfather had kidney disorder and colon cancer. Medications and Allergies Home Medications Medication Instructions Recorded Confirmed Type Multivitamins, Thera [Multivitamin 1 tab PO DAILY 03/01/17 08/11/17 History (formulary)] Diazepam [Valium] 10 mg PO HS 07/17/17 08/11/17 History HYDROcodone/APAP 7.5-325MG [[place] 1 tab PO Q6HR PRN 07/17/17 08/11/17 History 7.5-325] Pantoprazole Sodium [Protonix] 40 mg PO BID #60 tablet. 07/22/17 08/11/17 Rx Ranitidine HCl [Zantac] 300 mg PO BID 08/08/17 08/11/17 History Allergies Allergy/AdvReac Type Severity Reaction Status Date / Time amoxicillin [Amoxicillin] AdvReac Yeast Verified 08/11/17 13:59 Infection hydrocodone [From [place]] AdvReac Nausea & Verified 08/11/17 13:59 Vomiting Surgical - Exam Vital Signs Temp Pulse Resp BP Pulse Ox 97.5 F L 103 H 18 137/77 100 08/11/17 12:36 08/11/17 12:36 08/11/17 12:36 08/11/17 12:36 08/11/17 12:36 - General well developed, no distress - Eyes PERRL - ENT normal pinna - Neck no masses - Respiratory normal expansion - Cardiovascular Rhythm: regular - Abdomen Mild tenderness in the right and left lower quadrants. There is no rebound or guarding. Abdomen: soft Results - Labs 08/12/17 06:16 08/12/17 06:16 Abnormal Lab Results - Last 24 Hours (Table) 08/11/17 08/11/17 08/12/17 Range/Units 14:50 15:54 06:16 RBC 3.50 L (3.80-5.40) m/uL Hgb 10.0 L D (11.4-16.0) gm/dL Hct 31.2 L (34.0-46.0) % Chloride (98-107) mmol/L Glucose (74-99) mg/dL Total Protein 5.7 L (6.3-8.2) g/dL Albumin 3.3 L (3.5-5.0) g/dL Urine Appearance Cloudy H (Clear) Urine Protein Trace H (Negative) Urine Ketones 1+ H (Negative) Ur Leukocyte Esterase Trace H (Negative) Ur Squamous Epith Cells 14 H (0-4) /hpf Calcium Oxalate Crystal Rare H (None) /hpf Urine Bacteria Rare H (None) /hpf Urine Mucus Many H (None) /hpf 08/12/17 Range/Units 06:16 RBC (3.80-5.40) m/uL Hgb (11.4-16.0) gm/dL Hct (34.0-46.0) % Chloride 108 H (98-107) mmol/L Glucose 71 L (74-99) mg/dL Total Protein 5.1 L (6.3-8.2) g/dL Albumin 2.8 L (3.5-5.0) g/dL Urine Appearance (Clear) Urine Protein (Negative) Urine Ketones (Negative) Ur Leukocyte Esterase (Negative) Ur Squamous Epith Cells (0-4) /hpf Calcium Oxalate Crystal (None) /hpf Urine Bacteria (None) /hpf Urine Mucus (None) /hpf Diabetes panel 08/11/17 08/12/17 Range/Units 15:54 06:16 Sodium 140 144 (137-145) mmol/L Potassium 3.9 4.0 (3.5-5.1) mmol/L Chloride 107 108 H (98-107) mmol/L Carbon Dioxide 24 28 (22-30) mmol/L BUN 15 14 (7-17) mg/dL Creatinine 0.60 0.64 (0.52-1.04) mg/dL Glucose 77 71 L (74-99) mg/dL Calcium 8.4 8.7 (8.4-10.2) mg/dL AST 20 18 (14-36) U/L ALT 24 28 (9-52) U/L Alkaline Phosphatase 51 48 (38-126) U/L Total Protein 5.7 L 5.1 L (6.3-8.2) g/dL Albumin 3.3 L 2.8 L (3.5-5.0) g/dL Calcium panel 08/11/17 08/12/17 Range/Units 15:54 06:16 Calcium 8.4 8.7 (8.4-10.2) mg/dL Albumin 3.3 L 2.8 L (3.5-5.0) g/dL Pituitary panel 08/11/17 08/12/17 Range/Units 15:54 06:16 Sodium 140 144 (137-145) mmol/L Potassium 3.9 4.0 (3.5-5.1) mmol/L Chloride 107 108 H (98-107) mmol/L Carbon Dioxide 24 28 (22-30) mmol/L BUN 15 14 (7-17) mg/dL Creatinine 0.60 0.64 (0.52-1.04) mg/dL Glucose 77 71 L (74-99) mg/dL Calcium 8.4 8.7 (8.4-10.2) mg/dL Adrenal panel 08/11/17 08/12/17 Range/Units 15:54 06:16 Sodium 140 144 (137-145) mmol/L Potassium 3.9 4.0 (3.5-5.1) mmol/L Chloride 107 108 H (98-107) mmol/L Carbon Dioxide 24 28 (22-30) mmol/L BUN 15 14 (7-17) mg/dL Creatinine 0.60 0.64 (0.52-1.04) mg/dL Glucose 77 71 L (74-99) mg/dL Calcium 8.4 8.7 (8.4-10.2) mg/dL Total Bilirubin 0.4 0.6 (0.2-1.3) mg/dL AST 20 18 (14-36) U/L ALT 24 28 (9-52) U/L Alkaline Phosphatase 51 48 (38-126) U/L Total Protein 5.7 L 5.1 L (6.3-8.2) g/dL Albumin 3.3 L 2.8 L (3.5-5.0) g/dL - Imaging CT scan - pelvis: report reviewed (Computed tomography scan shows no significant abnormalities. There is no sign of bowel obstruction. There is known to any inflammatory changes.) Assessment and Plan Assessment: Chronic abdominal pain. I recommended stopping all narcotic pain medications. The patient's her full liquid diet. She'll be hopefully discharge home later today.
== END 2017-08-12 15:15 | disposition home or self-care (01) ==
LOC: EC 12:31 → 6PED 17:52
PROVIDERS: ADMIT Hospitalist; ATTEND Hospitalist
DX: R10.32 Left lower quadrant pain (principal); Z98.890 Other specified postprocedural states; F41.0 Panic disorder [episodic paroxysmal anxiety]; E66.9 Obesity, unspecified; Z68.25 Body mass index [BMI] 25.0-25.9, adult; Z98.84 Bariatric surgery status; Z79.891 Long term (current) use of opiate analgesic; Z79.899 Other long term (current) drug therapy; Z88.0 Allergy status to penicillin; Z88.5 Allergy status to narcotic agent; Z80.49 Family history of malignant neoplasm of other genital organs; Z82.49 Family history of ischemic heart disease and other diseases of the circulatory system; Z80.0 Family history of malignant neoplasm of digestive organs; Z83.2 Family history of diseases of the blood and blood-forming organs and certain disorders involving the immune mechanism
CPT/HCPCS: 99285 ×2; 96374 ×2; 96375 ×3; 96376 ×4; 96361 ×5; 36415; 80053 ×2; 82150; 83605; 83690; 85025 ×2; 81001; 81025; 74018; 74177; G0378 ×2; J1170 ×2; J2405; J1885; Q9967

== ENCOUNTER 2017-08-29 19:00 | Observation (INO) | payer BC ==
[2017-08-29] MEDS ORDERED: ONDANSETRON 4 MG/2 ML VIAL IVP STA (20:35)
[2017-08-29] MEDS ORDERED: KETOROLAC 30 MG/ML 1 ML VIAL IVP STA (20:35)
[2017-08-29] MEDS ORDERED: SODIUM CHLORIDE 0.9% 1,000 ML IV STA (20:35)
[2017-08-29 20:38] LABS: Appearance,Urine Cloudy (Clear); Bilirubin,Urine Negative (Negative); Blood,Urine Negative (Negative); Color,Urine Yellow; Glucose,Urine (UA) Negative (Negative); Ketones,Urine Negative (Negative); Leukocyte Esterase,Urine Small (Negative); Mucus,Urine Many /hpf; Nitrite,Urine Negative (Negative); Protein,Urine Trace (Negative); RBC,Urine 4 /hpf (0-5); Specific Gravity,Urine 1.028 (1.001-1.035); Squamous Epithelial Cell,Urine 6 /hpf (0-4); WBC,Urine 2 /hpf (0-5)
--- NOTE | 2017-08-29 20:46 | ED ---
Abdominal Pain HPI - General Chief Complaint: Abdominal Pain Stated Complaint: Abdominal pain Time Seen by Provider: 08/29/17 20:14 Source: patient, old records reviewed Mode of arrival: ambulatory Limitations: no limitations - History of Present Illness Initial Comments: Patient presents with chronic abdominal pain. His recurrent problem for her. Patient states she started experiencing worsening symptoms today while at work, therefore she left and came to the ER. Patient has multiple ER visits for similar problem, well known to staff at the hospital. Patient states she was referred to [facility] for her chronic abdominal pain, states they are starting her on Linzess. Patient states she has intermittent constipation, feels that she has been constipated this week with small hard stools. Patient complains of nausea. Patient has a history of gastric sleeve surgery. Denies fevers, chills, vomiting, diarrhea. Patient states this is the same chronic abdominal pain she always experiences, nothing new about this time. States "I just wish they could tell me what is causing it". Patient was admitted 2017 for the same symptoms. Computed tomography scan of that time was negative. MD Complaint: abdominal pain Location: diffuse - Related Data Home Medications Medication Instructions Recorded Confirmed Multivitamins, Thera [Multivitamin 1 tab PO DAILY 03/01/17 08/29/17 (formulary)] Diazepam [Valium] 10 mg PO HS 07/17/17 08/29/17 Ranitidine HCl [Zantac] 300 mg PO BID 08/08/17 08/29/17 Acetaminophen-Codeine 300-30mg 1 tab PO Q6H PRN 08/29/17 08/29/17 [Tylenol #3] Ibuprofen [Motrin] 800 mg PO TID PRN 08/29/17 08/29/17 Linaclotide [Linzess] 72 mcg PO DAILY 08/29/17 08/29/17 Previous Rx's Medication Instructions Recorded Pantoprazole Sodium [Protonix] 40 mg PO BID #60 tablet. 07/22/17 Allergies Allergy/AdvReac Type Severity Reaction Status Date / Time amoxicillin [Amoxicillin] AdvReac Yeast Verified 08/29/17 20:37 Infection hydrocodone [From [place]] AdvReac Nausea & Verified 08/29/17 20:37 Vomiting Review of Systems ROS Statement: Those systems with pertinent positive or pertinent negative responses have been documented in the HPI. ROS Other: All systems not noted in ROS Statement are negative. Constitutional: Denies: fever, chills, weakness Eyes: Denies: vision change ENT: Denies: ear pain, throat pain, congestion Respiratory: Denies: cough Cardiovascular: Denies: chest pain Endocrine: Denies: fatigue Gastrointestinal: Reports: abdominal pain, nausea, constipation. Denies: vomiting, diarrhea, hematemesis, melena, hematochezia Genitourinary: Denies: urgency, dysuria, frequency, hematuria, discharge, abnormal menses Musculoskeletal: Denies: back pain Skin: Denies: rash, change in color Neurological: Denies: headache Past Medical History Past Medical History: No Reported History Additional Past Medical History / Comment(s): ABDOMINAL PAIN, CONSTIPATION/ DIARRHEA, Elevated liver enzymes for unknown reason. WEARING BOOT ON LEFT FOOT POST SX. UNABLE TO WALK LONG DISTANCES ON FOOT AT THIS TIME History of Any Multi-Drug Resistant Organisms: None Reported Past Surgical History: Cholecystectomy, Orthopedic Surgery Additional Past Surgical History / Comment(s): LEFT FOOT SX, Right fallopian tube removed May 2015, SLEEVE GASTRECTOMY 03/26/15, EGD Past Anesthesia/Blood Transfusion Reactions: Postoperative Nausea & Vomiting ( PONV) Past Psychological History: Panic Disorder Smoking Status: Never smoker Past Alcohol Use History: None Reported Past Drug Use History: None Reported - Past Family History Sister(s) Family Medical History: Cancer, Deep Vein Thrombosis (DVT) Additional Family Medical History / Comment(s): Cervical cancer Mother Family Medical History: Hyperlipidemia Additional Family Medical History / Comment(s): HEART PROBLEMS, IRREG RYTHM Father Family Medical History: Hyperlipidemia, Hypertension Additional Family Medical History / Comment(s): Paternal grandfather had kidney disorder and colon cancer. General Exam - General Exam Comments Initial Comments: Sitting up on side of her car. No acute distress. Well appearing. Does not appear in pain. Limitations: no limitations General appearance: alert, in no apparent distress Head exam: Present: atraumatic, normocephalic Eye exam: Present: normal appearance, PERRL, EOMI ENT exam: Present: normal exam, normal oropharynx, mucous membranes moist Neck exam: Present: normal inspection. Absent: tenderness Respiratory exam: Present: normal lung sounds bilaterally. Absent: respiratory distress, wheezes, rales, rhonchi, stridor Cardiovascular Exam: Present: regular rate, normal rhythm GI/Abdominal exam: Present: soft, tenderness, normal bowel sounds. Absent: distended, guarding, rebound, rigid, hernia (No hernias appreciated. Mild generalized tenderness, however abdomen appears nontender when distracted.) Extremities exam: Present: other (No gross deformities) Neurological exam: Present: alert, oriented X3 Psychiatric exam: Present: normal affect, normal mood Skin exam: Present: warm, dry, intact, normal color. Absent: rash, diaphoretic Course Vital Signs 08/29/17 19:35 Temperature 98.0 F Pulse Rate 98 Respiratory 20 Rate Blood Pressure 166/72 O2 Sat by Pulse 99 Oximetry Medical Decision Making - Medical Decision Making IV fluids, Zofran, Toradol ordered. Risk-benefit of computed tomography scan discussed with patient, states she has had multiple the past, states her symptoms are the exact same as when CAT scans have been negative in the past, patient request and at this time. Patient agrees to acute abdominal series x-rays. We'll draw blood work. Notes from patient's last admission reviewed, surgeon Dr. Jarvis's notes indicate that he knows patient well and recommends no narcotics. 20:51 05 by RN patient is declining Toradol for pain, and requesting narcotics for pain. Explained to patient will continue with workup as ordered, at this time will not treat chronic pain with narcotic medications. No acute process on acute abdominal series. No significant abnormalities on lab work. Patient agreed to dose of Toradol, however states she continues in pain. Spoke with patient's primary care physician Dr. Burt, updated patient condition results, agrees with observation at this time for intractable abdominal pain, request consult to GI and general surgery. Patient updated with results and plan. Per previous recommendations will hold narcotics at this time. Motrin and Tylenol for pain. - Lab Data Result diagrams: 08/29/17 20:51 08/29/17 20:51 Lab Results 08/29/17 08/29/17 08/29/17 Range/Units 20:25 20:25 20:51 WBC 5.9 (3.8-10.6) k/uL RBC 4.08 (3.80-5.40) m/uL Hgb 11.4 (11.4-16.0) gm/dL Hct 37.0 (34.0-46.0) % MCV 90.5 (80.0-100.0) fL MCH 28.0 (25.0-35.0) pg MCHC 31.0 (31.0-37.0) g/dL RDW 13.8 (11.5-15.5) % Plt Count 223 (150-450) k/uL Neutrophils % 56 % Lymphocytes % 32 % Monocytes % 5 % Eosinophils % 5 % Basophils % 0 % Neutrophils # 3.3 (1.3-7.7) k/uL Lymphocytes # 1.9 (1.0-4.8) k/uL Monocytes # 0.3 (0-1.0) k/uL Eosinophils # 0.3 (0-0.7) k/uL Basophils # 0.0 (0-0.2) k/uL Sodium (137-145) mmol/L Potassium (3.5-5.1) mmol/L Chloride (98-107) mmol/L Carbon Dioxide (22-30) mmol/L Anion Gap mmol/L BUN (7-17) mg/dL Creatinine (0.52-1.04) mg/dL Est GFR (MDRD) Af Amer (>60 ml/min/1.73 sqM) Est GFR (MDRD) Non-Af (>60 ml/min/1.73 sqM) Glucose (74-99) mg/dL Calcium (8.4-10.2) mg/dL Total Bilirubin (0.2-1.3) mg/dL AST (14-36) U/L ALT (9-52) U/L Alkaline Phosphatase (38-126) U/L Total Protein (6.3-8.2) g/dL Albumin (3.5-5.0) g/dL Lipase (23-300) U/L Urine Color Yellow Urine Appearance Cloudy H (Clear) Urine pH 6.0 (5.0-8.0) Ur Specific [place]all[place] 1.028 (1.001-1.035) Urine Protein Trace H (Negative) Urine Glucose (UA) Negative (Negative) Urine Ketones Negative (Negative) Urine Blood Negative (Negative) Urine Nitrite Negative (Negative) Urine Bilirubin Negative (Negative) Urine Urobilinogen 3.0 (<2.0) mg/dL Ur Leukocyte Esterase Small H (Negative) Urine RBC 4 (0-5) /hpf Urine WBC 2 (0-5) /hpf Ur Squamous Epith Cells 6 H (0-4) /hpf Urine Mucus Many H (None) /hpf Urine HCG, Qual Not Detected (Not Detectd) 08/29/17 Range/Units 20:51 WBC (3.8-10.6) k/uL RBC (3.80-5.40) m/uL Hgb (11.4-16.0) gm/dL Hct (34.0-46.0) % MCV (80.0-100.0) fL MCH (25.0-35.0) pg MCHC (31.0-37.0) g/dL RDW (11.5-15.5) % Plt Count (150-450) k/uL Neutrophils % % Lymphocytes % % Monocytes % % Eosinophils % % Basophils % % Neutrophils # (1.3-7.7) k/uL Lymphocytes # (1.0-4.8) k/uL Monocytes # (0-1.0) k/uL Eosinophils # (0-0.7) k/uL Basophils # (0-0.2) k/uL Sodium 142 (137-145) mmol/L Potassium 4.1 (3.5-5.1) mmol/L Chloride 105 (98-107) mmol/L Carbon Dioxide 26 (22-30) mmol/L Anion Gap 11 mmol/L BUN 23 H (7-17) mg/dL Creatinine 0.77 (0.52-1.04) mg/dL Est GFR (MDRD) Af Amer >60 (>60 ml/min/1.73 sqM) Est GFR (MDRD) Non-Af >60 (>60 ml/min/1.73 sqM) Glucose 89 (74-99) mg/dL Calcium 9.5 (8.4-10.2) mg/dL Total Bilirubin 0.4 (0.2-1.3) mg/dL AST 19 (14-36) U/L ALT 21 (9-52) U/L Alkaline Phosphatase 65 (38-126) U/L Total Protein 7.0 (6.3-8.2) g/dL Albumin 4.2 (3.5-5.0) g/dL Lipase 127 (23-300) U/L Urine Color Urine Appearance (Clear) Urine pH (5.0-8.0) Ur Specific [place] (1.001-1.035) Urine Protein (Negative) Urine Glucose (UA) (Negative) Urine Ketones (Negative) Urine Blood (Negative) Urine Nitrite (Negative) Urine Bilirubin (Negative) Urine Urobilinogen (<2.0) mg/dL Ur Leukocyte Esterase (Negative) Urine RBC (0-5) /hpf Urine WBC (0-5) /hpf Ur Squamous Epith Cells (0-4) /hpf Urine Mucus (None) /hpf Urine HCG, Qual (Not Detectd) Disposition Clinical Impression: Intractable abdominal pain Disposition: ADMITTED IP TO THIS HOSP Referrals: Jacinto Olivares MD [Primary Care Provider] - 1-2 days
[2017-08-29 21:10] LABS: ALT 21 U/L (9-52); AST 19 U/L (14-36); Albumin 4.2 g/dL (3.5-5.0); Alkaline Phosphatase 65 U/L (38-126); Anion Gap 11 mmol/L; Basophils % (A) 0 %; Blood Urea Nitrogen 23 mg/dL (7-17); Calcium 9.5 mg/dL (8.4-10.2); Carbon Dioxide 26 mmol/L (22-30); Chloride 105 mmol/L (98-107); Eosinophils # (A) 0.3 k/uL (0-0.7); Eosinophils % (A) 5 %; Glucose 89 mg/dL (74-99); HGB 11.4 gm/dL (11.4-16.0); Lipase 127 U/L (23-300); Lymphocytes # (A) 1.9 k/uL (1.0-4.8); Lymphocytes % (A) 32 %; MCV 90.5 fL (80.0-100.0); Mean Platelet Volume 7.2; Monocytes # (A) 0.3 k/uL (0-1.0); Monocytes % (A) 5 %; Neutrophils # (A) 3.3 k/uL (1.3-7.7); Neutrophils % (A) 56 %; Platelet Count 223 k/uL (150-450); Potassium 4.1 mmol/L (3.5-5.1); RBC 4.08 m/uL (3.80-5.40); RDW 13.8 % (11.5-15.5); Sodium 142 mmol/L (137-145); Total Bilirubin 0.4 mg/dL (0.2-1.3); WBC 5.9 k/uL (3.8-10.6)
--- NOTE | 2017-08-29 21:50 | XR ---
EXAMINATION TYPE: XR abdomen acute w cxr DATE OF EXAM: 08/29/2017 COMPARISON: 08/11/2017 HISTORY: Chest pain abdominal pain TECHNIQUE: 3 views FINDINGS: Heart and mediastinum are normal. Lungs are clear. Diaphragm is normal. There is contrast in the colo n. I see no sign of intestinal obstruction or pneumoperitoneum. Fecal pattern is normal. There are cl ips from cholecystectomy. There is no evidence of a mass. IMPRESSION: Normal chest. Nonacute abdomen. No change compared to old exam.
[2017-08-29] MEDS ORDERED: IBUPROFEN 400 MG TAB PO PRN (23:35)
[2017-08-30] MEDS ORDERED: CYCLOBENZAPRINE 5 MG TAB PO STA (00:51)
[2017-08-30] MEDS: DIAZEPAM 5 MG TAB PO SCH ×2 (00:54→20:46)
[2017-08-30] MEDS: DOCUSATE 100 MG CAP PO SCH ×3 (04:38→21:19)
[2017-08-30 07:23] LABS: Basophils % (A) 1 %; Eosinophils # (A) 0.2 k/uL (0-0.7); Eosinophils % (A) 5 %; HCT 31.5 % (34.0-46.0); HGB 10.1 gm/dL (11.4-16.0); Lymphocytes # (A) 1.7 k/uL (1.0-4.8); Lymphocytes % (A) 41 %; MCH 28.4 pg (25.0-35.0); Mean Platelet Volume 7.6; Monocytes # (A) 0.2 k/uL (0-1.0); Monocytes % (A) 6 %; Neutrophils # (A) 1.8 k/uL (1.3-7.7); Neutrophils % (A) 44 %; Platelet Count 198 k/uL (150-450); RBC 3.53 m/uL (3.80-5.40); RDW 13.6 % (11.5-15.5); WBC 4.1 k/uL (3.8-10.6)
[2017-08-30 07:30] LABS: ALT 21 U/L (9-52); AST 14 U/L (14-36); Alkaline Phosphatase 48 U/L (38-126); Anion Gap 5 mmol/L; Blood Urea Nitrogen 17 mg/dL (7-17); Calcium 8.8 mg/dL (8.4-10.2); Carbon Dioxide 26 mmol/L (22-30); Chloride 110 mmol/L (98-107); Glucose 83 mg/dL (74-99); Magnesium 1.9 mg/dL (1.6-2.3); Phosphorus 4.6 mg/dL (2.5-4.5); Sodium 141 mmol/L (137-145); Total Bilirubin 0.7 mg/dL (0.2-1.3); Total Protein 5.3 g/dL (6.3-8.2)
[2017-08-30] MEDS: LINACLOTIDE 72 MCG PO SCH (07:57)
[2017-08-30] MEDS: FAMOTIDINE 20 MG TAB PO SCH ×2 (07:57→20:46)
[2017-08-30] MEDS: PANTOPRAZOLE 40 MG TABLET PO SCH ×2 (07:57→20:47)
[2017-08-30] MEDS: MULTIVITAMINS, THERA 1 EACH TAB PO SCH (07:57)
--- NOTE | 2017-08-30 08:05 | P.CONS ---
History of Present Illness - Reason for Consult Consult date: 08/30/17 abdominal pain Requesting physician: Jacinto Olivares - Chief Complaint abdominal pain vomiting - History of Present Illness 27-year-old female with a history of chronic abdominal pain greater than 6 months duration, sleeve gastrectomy, laparoscopic adhesiolysis, cholecystectomy , cholelithiasis, ovarian cysts, and right oophorectomy. Patient has had multiple hospitalizations for chronic abdominal pain nausea vomiting. She was recently evaluated by the GI service early July 2017 for these symptoms. Pain is localized mostly in the mid epigastrium across the mid bilateral abdomen. She has had multiple CAT scans MRIs, endoscopic exams not are able to clearly identify source of her symptoms. She has had consultations with WATER TREATMENT TECHNICIAN and general surgery. She was referred to the [facility] and was seen in consultation by a field crop grower week ago Saturday. She reports blood work and repeat barium swallow exam was performed. She cannot provide the field crop grower name except that started with the letter "N". She was told that she may have a bowel motility disorder and was placed on Linzess which she takes daily, [facility] follow-up appointment scheduled November 12. She reports her symptoms have not improved with Linzess. She is admitted with intractable nausea vomiting abdominal pain. She is requesting pain medications. Home medications included but not limited to Zantac, Motrin and Lortab E.S, Valium. Last bowel movement 3 days ago. Denied fevers. No bleeding. Hemoglobin 10.1. White count 4.1. Platelet 198. She was evaluated by general surgery last month and underwent EGD with biopsy with findings of gastritis and dilation of gastric sleeve by Dr. Jha. Biopsies negative for H. pylori. Three-view of the abdomen normal chest; nonacute abdomen no change compared to old exam. Review of Systems Constitutional: Denies fever, chills, sweats, weight gain, or loss. HEENT: Negative for migraines, blurred vision or loss, earaches, drainage, tinnitus, oral mucosal lesions, dysphagia, or odynophagia. CARDIAC: Negative for chest pain, arrhythmias, or palpitation. RESPIRATORY: Negative for shortness of breath, hemoptysis, cough, or sputum production. GI: See HPI for pertinent findings. : Negative for hematuria, urgency, frequency, polyuria, or dysuria. GYNc: Denies possibility of . Negative vaginal discharge. MUSCULOSKELETAL: Negative for muscle aches, swelling, arthritis, and arthralgias. NEUROLOGIC: Negative for stroke or TIA. ENDOCRINE: Negative for thyroid problems. SKIN: Negative for rash or itching. PSYCHIATRIC: Negative history for depression and anxiety Past Medical History Past Medical History: GERD/Reflux Additional Past Medical History / Comment(s): ABDOMINAL PAIN, CONSTIPATION/ DIARRHEA, Elevated liver enzymes for unknown reason. History of Any Multi-Drug Resistant Organisms: None Reported Past Surgical History: Cholecystectomy, Orthopedic Surgery Additional Past Surgical History / Comment(s): LEFT FOOT SX, Right fallopian tube removed May 2015, SLEEVE GASTRECTOMY 03/26/15, EGD Past Anesthesia/Blood Transfusion Reactions: Postoperative Nausea & Vomiting ( PONV) Past Psychological History: Panic Disorder Additional Psychological History / Comment(s): PASSED OUT AT WORK AND HAD PANIC ATTACK. one time issue per pt. no problems since Smoking Status: Never smoker Past Alcohol Use History: None Reported Past Drug Use History: None Reported - Past Family History Sister(s) Family Medical History: Cancer, Deep Vein Thrombosis (DVT) Additional Family Medical History / Comment(s): Cervical cancer Mother Family Medical History: Hyperlipidemia Additional Family Medical History / Comment(s): HEART PROBLEMS, IRREG RYTHM Father Family Medical History: Hyperlipidemia, Hypertension Additional Family Medical History / Comment(s): Paternal grandfather had kidney disorder and colon cancer. Medications and Allergies Home Medications Medication Instructions Recorded Confirmed Type Multivitamins, Thera [Multivitamin 1 tab PO DAILY 03/01/17 08/29/17 History (formulary)] Diazepam [Valium] 10 mg PO HS 07/17/17 08/29/17 History Pantoprazole Sodium [Protonix] 40 mg PO BID #60 tablet. 07/22/17 08/29/17 Rx Ranitidine HCl [Zantac] 300 mg PO BID 08/08/17 08/29/17 History Acetaminophen-Codeine 300-30mg 1 tab PO Q6H PRN 08/29/17 08/29/17 History [Tylenol #3] Ibuprofen [Motrin] 800 mg PO TID PRN 08/29/17 08/29/17 History Linaclotide [Linzess] 72 mcg PO DAILY 08/29/17 08/29/17 History Hydrocodone/Acetaminophen 1 each PO Q6HR PRN 08/30/17 08/30/17 History [Hydrocodon-Acetaminoph 7.5-325] Allergies Allergy/AdvReac Type Severity Reaction Status Date / Time amoxicillin [Amoxicillin] AdvReac Yeast Verified 08/29/17 20:37 Infection hydrocodone [From [place]] AdvReac Nausea & Verified 08/29/17 20:37 Vomiting Physical Exam Vitals: Vital Signs Temp Pulse Pulse Resp BP BP Pulse Ox 08/30/17 00:04 97.9 F 79 18 128/75 99 08/30/17 00:00 97.9 F 82 18 146/80 100 08/29/17 19:35 98.0 F 98 20 166/72 99 Intake and Output 08/29/17 08/30/17 08/30/17 22:59 06:59 14:59 Intake Total 0 Balance 0 Intake: Oral 0 Other: # Voids 1 # Bowel Movements 1 Weight 83.915 kg 87.1 kg General appearance: The patient is alert, oriented, in no acute distress. HET: Head is normocephalic and atraumatic. Pupils are equal and reactive. Oropharynx is clear without lesions. Neck: Supple without lymphadenopathy. Trachea midline. Heart: S1 S2. Regular rate and rhythm. Lungs: No crackles or wheezes are heard. Abdomen: Soft, mild tenderness midepigastrium upper midabdomen, nondistended with bowel sounds. No peritoneal signs. No palpable organomegaly or masses. Extremities: Normal skin color and turgor. No cyanosis, rash, ulceration, clubbing, or edema. Radial and pedal pulses are 2/4 bilaterally. Neurological: No focal deficits. Strength and sensation are grossly intact. Results CBC & Chem 7: 08/30/17 06:41 08/30/17 06:41 Labs: Abnormal Lab Results - Last 24 Hours (Table) 08/29/17 08/29/17 08/30/17 Range/Units 20:25 20:51 06:41 RBC 3.53 L (3.80-5.40) m/uL Hgb 10.1 L (11.4-16.0) gm/dL Hct 31.5 L (34.0-46.0) % Chloride (98-107) mmol/L BUN 23 H (7-17) mg/dL Phosphorus (2.5-4.5) mg/dL Total Protein (6.3-8.2) g/dL Albumin (3.5-5.0) g/dL Urine Appearance Cloudy H (Clear) Urine Protein Trace H (Negative) Ur Leukocyte Esterase Small H (Negative) Ur Squamous Epith Cells 6 H (0-4) /hpf Urine Mucus Many H (None) /hpf 08/30/17 Range/Units 06:41 RBC (3.80-5.40) m/uL Hgb (11.4-16.0) gm/dL Hct (34.0-46.0) % Chloride 110 H (98-107) mmol/L BUN (7-17) mg/dL Phosphorus 4.6 H (2.5-4.5) mg/dL Total Protein 5.3 L (6.3-8.2) g/dL Albumin 3.0 L (3.5-5.0) g/dL Urine Appearance (Clear) Urine Protein (Negative) Ur Leukocyte Esterase (Negative) Ur Squamous Epith Cells (0-4) /hpf Urine Mucus (None) /hpf Microbiology - Last 24 Hours (Table) 08/29/17 20:25 Urine Culture - Preliminary Urine,Clean Catch Abdominal x-ray: report reviewed (Dr. Vallejo) Assessment and Plan (1) Chronic abdominal pain Narrative/Plan: 27-year-old female with a history of sleeve gastrectomy chronic abdominal pain greater than 6 months duration unclear etiology. She's had multiple radiographic imaging studies, surgical and WATER TREATMENT TECHNICIAN consultations, endoscopic exams and barium swallows without clear source. Recently refer to [facility] is presently being evaluated placed on Linzess with minimal improvement. Current Visit: Yes Status: Acute Code(s): R10.9 - UNSPECIFIED ABDOMINAL PAIN ; G89.29 - OTHER CHRONIC PAIN SNOMED Code(s): 557809329 Plan: 1. Patient is requesting pain medications she was advised to discuss this with her attending. 2. Diet as tolerated. 3. Patient was advised to have her spouse bring in her Linzess as it is not formulary and may continue as previously advised. 4. General surgical consult. 5. Endoscopic exams are not planned at this time. 6. She was advised to follow-up with [facility] field crop grower for further evaluation and workup. Thank you for this kind referral and the opportunity to participate in the care of your patient. This consultation was discussed with Dr. Vallejo. The impression and plan of care have been directed as dictated.
[2017-08-30] MEDS: ACETAMINOPHEN TAB 325 MG TAB PO PRN (10:42)
--- NOTE | 2017-08-30 12:24 | P.GSCN ---
<Helena Rajan - Last Filed: 08/30/17 12:25> History of Present Illness Consult date: 08/30/17 Reason for Consult: Abdominal pain History of present illness: 27-year-old female being seen for a surgical eval at the request of the attending. Patient is well known to Dr. boucher service. was seen twice in July for admissions for abdominal pain seen by surgical service. Patient has chronic issues with abdominal pain. Patient has had an extensive workup involving multiple CAT scans and x-rays all the testing had been normal. There was a recent colonoscopy August 09 2017 done by which was normal additionally patient underwent on July 20 this year EGD which showed mild antral gastritis no significant sleeve stricture. Procedure EGD with biopsy and dilatation of the gastric sleeve was done procedure was done by Dr. boucher. Patient has a history of having a gastric sleeve surgery done. Also reports having chronic intermittent episodes of nausea The most recent admission August 11 for similar presentation at that time Dr. boucher recommended no IV narcotics or oral and would not treat chronic abdominal pain with narcotic medication this was reinforced to the patient this admission patient verbalized an understanding Patient presented to the emergency room stating that she's been experiencing bilateral lower abdominal pain pain was intense left work came into the emergency room. Patient has had multiple emergency room visits for abdominal pain. Patient states that she was referred to the [facility] for her chronic abdominal pain and was started on linzess. According to the patient has been on it for at least 2 weeks Patient states that she has episodes of intermittent constipation and her last bowel movement was 2 days ago. Patient states she did see a doctor kaur at the [facility] 2 weeks ago. He started the patient on linzess and according to the patient she had lab work drawn there as well as a barium enema has not heard the results. Patient states she is told that she will follow-up in November. Patient states no prescription for narcotics was provided by this doctor dr dietrich Review of Systems Essentially unremarkable except as mentioned in the present illness Past Medical History Past Medical History: GERD/Reflux Additional Past Medical History / Comment(s): ABDOMINAL PAIN, CONSTIPATION/ DIARRHEA, Elevated liver enzymes for unknown reason. History of Any Multi-Drug Resistant Organisms: None Reported Past Surgical History: Cholecystectomy, Orthopedic Surgery Additional Past Surgical History / Comment(s): LEFT FOOT SX, Right fallopian tube removed May 2015, SLEEVE GASTRECTOMY 03/26/15, EGD Past Anesthesia/Blood Transfusion Reactions: Postoperative Nausea & Vomiting ( PONV) Past Psychological History: Panic Disorder Additional Psychological History / Comment(s): PASSED OUT AT WORK AND HAD PANIC ATTACK. one time issue per pt. no problems since Smoking Status: Never smoker Past Alcohol Use History: None Reported Past Drug Use History: None Reported - Past Family History Sister(s) Family Medical History: Cancer, Deep Vein Thrombosis (DVT) Additional Family Medical History / Comment(s): Cervical cancer Mother Family Medical History: Hyperlipidemia Additional Family Medical History / Comment(s): HEART PROBLEMS, IRREG RYTHM Father Family Medical History: Hyperlipidemia, Hypertension Additional Family Medical History / Comment(s): Paternal grandfather had kidney disorder and colon cancer. Medications and Allergies Home Medications Medication Instructions Recorded Confirmed Type Multivitamins, Thera [Multivitamin 1 tab PO DAILY 03/01/17 08/29/17 History (formulary)] Diazepam [Valium] 10 mg PO HS 07/17/17 08/29/17 History Pantoprazole Sodium [Protonix] 40 mg PO BID #60 tablet. 07/22/17 08/29/17 Rx Ranitidine HCl [Zantac] 300 mg PO BID 08/08/17 08/29/17 History Acetaminophen-Codeine 300-30mg 1 tab PO Q6H PRN 08/29/17 08/29/17 History [Tylenol w/codeine #3] Ibuprofen [Motrin] 800 mg PO TID PRN 08/29/17 08/29/17 History Linaclotide [Linzess] 72 mcg PO DAILY 08/29/17 08/29/17 History Hydrocodone/Acetaminophen 1 each PO Q6HR PRN 08/30/17 08/30/17 History [Hydrocodon-Acetaminoph 7.5-325] HYDROcodone/APAP 7.5-325MG [[place] 1 each PO Q4H PRN #20 tab 09/02/17 Rx 7.5-325] Allergies Allergy/AdvReac Type Severity Reaction Status Date / Time amoxicillin [Amoxicillin] AdvReac Yeast Verified 08/29/17 20:37 Infection hydrocodone [From [place]] AdvReac Nausea & Verified 08/29/17 20:37 Vomiting Surgical - Exam Vital Signs Temp Pulse Resp BP Pulse Ox 98.0 F 98 20 166/72 99 08/29/17 19:35 08/29/17 19:35 08/29/17 19:35 08/29/17 19:35 08/29/17 19:35 GENERAL APPEARANCE: 27-year-old female patient is alert, oriented, in no acute distress. Talkative VITAL SIGNS: Reviewed HEENT: Head is normocephalic and atraumatic. Pupils are equal and reactive. The nares are patent. Oropharynx is clear without lesions. NECK: Supple without lymphadenopathy. Traches midline. HEART: S1, S2. Regular rate and rhythm. No murmur noted LUNGS: No crackles or wheezes are heard. Adequate air movement bilaterally ABDOMEN: Soft, nontender, nondistended with good bowel sounds. No peritoneal signs. No palpable organomegaly or masses. States is hungry currently nothing by mouth no nausea no vomiting no stool states last bowel movement 2 days ago EXTREMITIES: Normal skin color and turgor. No cyanosis, rash, ulceration, clubbing or edema. Radial pedal pulses are 2/4 bilaterally. NEUROLOGICAL: No focal deficits. Strength and sensation are grossly intact. Results - Labs 08/30/17 06:41 08/30/17 06:41 Abnormal Lab Results - Last 24 Hours (Table) 08/29/17 08/29/17 08/30/17 Range/Units 20:25 20:51 06:41 RBC 3.53 L (3.80-5.40) m/uL Hgb 10.1 L (11.4-16.0) gm/dL Hct 31.5 L (34.0-46.0) % Chloride (98-107) mmol/L BUN 23 H (7-17) mg/dL Phosphorus (2.5-4.5) mg/dL Total Protein (6.3-8.2) g/dL Albumin (3.5-5.0) g/dL Urine Appearance Cloudy H (Clear) Urine Protein Trace H (Negative) Ur Leukocyte Esterase Small H (Negative) Ur Squamous Epith Cells 6 H (0-4) /hpf Urine Mucus Many H (None) /hpf 08/30/17 Range/Units 06:41 RBC (3.80-5.40) m/uL Hgb (11.4-16.0) gm/dL Hct (34.0-46.0) % Chloride 110 H (98-107) mmol/L BUN (7-17) mg/dL Phosphorus 4.6 H (2.5-4.5) mg/dL Total Protein 5.3 L (6.3-8.2) g/dL Albumin 3.0 L (3.5-5.0) g/dL Urine Appearance (Clear) Urine Protein (Negative) Ur Leukocyte Esterase (Negative) Ur Squamous Epith Cells (0-4) /hpf Urine Mucus (None) /hpf Microbiology - Last 24 Hours (Table) 08/29/17 20:25 Urine Culture - Preliminary Urine,Clean Catch Diabetes panel 08/29/17 08/30/17 Range/Units 20:51 06:41 Sodium 142 141 (137-145) mmol/L Potassium 4.1 4.0 (3.5-5.1) mmol/L Chloride 105 110 H (98-107) mmol/L Carbon Dioxide 26 26 (22-30) mmol/L BUN 23 H 17 (7-17) mg/dL Creatinine 0.77 0.68 (0.52-1.04) mg/dL Glucose 89 83 (74-99) mg/dL Calcium 9.5 8.8 (8.4-10.2) mg/dL AST 19 14 (14-36) U/L ALT 21 21 (9-52) U/L Alkaline Phosphatase 65 48 (38-126) U/L Total Protein 7.0 5.3 L (6.3-8.2) g/dL Albumin 4.2 3.0 L (3.5-5.0) g/dL Calcium panel 08/29/17 08/30/17 Range/Units 20:51 06:41 Calcium 9.5 8.8 (8.4-10.2) mg/dL Phosphorus 4.6 H (2.5-4.5) mg/dL Albumin 4.2 3.0 L (3.5-5.0) g/dL Pituitary panel 08/29/17 08/30/17 Range/Units 20:51 06:41 Sodium 142 141 (137-145) mmol/L Potassium 4.1 4.0 (3.5-5.1) mmol/L Chloride 105 110 H (98-107) mmol/L Carbon Dioxide 26 26 (22-30) mmol/L BUN 23 H 17 (7-17) mg/dL Creatinine 0.77 0.68 (0.52-1.04) mg/dL Glucose 89 83 (74-99) mg/dL Calcium 9.5 8.8 (8.4-10.2) mg/dL Adrenal panel 08/29/17 08/30/17 Range/Units 20:51 06:41 Sodium 142 141 (137-145) mmol/L Potassium 4.1 4.0 (3.5-5.1) mmol/L Chloride 105 110 H (98-107) mmol/L Carbon Dioxide 26 26 (22-30) mmol/L BUN 23 H 17 (7-17) mg/dL Creatinine 0.77 0.68 (0.52-1.04) mg/dL Glucose 89 83 (74-99) mg/dL Calcium 9.5 8.8 (8.4-10.2) mg/dL Total Bilirubin 0.4 0.7 (0.2-1.3) mg/dL AST 19 14 (14-36) U/L ALT 21 21 (9-52) U/L Alkaline Phosphatase 65 48 (38-126) U/L Total Protein 7.0 5.3 L (6.3-8.2) g/dL Albumin 4.2 3.0 L (3.5-5.0) g/dL Assessment and Plan Assessment: Impression Chronic abdominal pain greater than 6 months Recently diagnosed bowel motility disorder started on linzess History of sleeve gastrectomy March 2015 Recent EGD 07/20/2017 mild antral gastritis, no significant sleeve stricture Recent 08/09/2017 colonoscopy normal no acute findings Recent in June 2017 left foot surgery plan no narcotic pain mediction for chronic abdominal pain start full liquid diet No further surgical recommendations at this time No evidence of an acute surgical abdomen Defer to the attending for medical management Resume home meds Reinforce to the patient the need to follow-up with [facility] ornamental metal worker helper dr dietrich as directed Continue recommendations by GI service no plan for further endoscopic is at this time Surgical consultation note dictated for dr Miranda rounding on behalf of dr boucher The above impression and plan of care have been discussed and directed by signing physician. Helena Rajan nurse practitioner acting as scribe for signing physician. <Alexsandra Miranda Last Filed: 09/03/17 04:33> Surgical - Exam Vital Signs Temp Pulse Resp BP Pulse Ox 98.0 F 98 20 166/72 99 08/29/17 19:35 08/29/17 19:35 08/29/17 19:35 08/29/17 19:35 08/29/17 19:35 Results - Labs 09/02/17 05:20 08/30/17 06:41 Abnormal Lab Results - Last 24 Hours (Table) 09/02/17 09/02/17 Range/Units 05:20 05:20 WBC 3.5 L (3.8-10.6) k/uL RBC 3.32 L (3.80-5.40) m/uL Hgb 9.3 L (11.4-16.0) gm/dL Hct 30.1 L (34.0-46.0) % MCHC 30.9 L (31.0-37.0) g/dL Iron 37 L (50-170) ug/dL Diabetes panel 09/02/17 Range/Units 05:20 Hemoglobin A1c 4.4 (4.0-6.0) % Thyroid panel 09/02/17 Range/Units 05:20 TSH 3.340 (0.465-4.680) mIU/L Pituitary panel 09/02/17 Range/Units 05:20 TSH 3.340 (0.465-4.680) mIU/L Assessment and Plan (1) Peritonitis Status: Acute Code(s): K65.9 - PERITONITIS, UNSPECIFIED SNOMED Code(s): 81266377 (2) Chronic abdominal pain Status: Acute Code(s): R10.9 - UNSPECIFIED ABDOMINAL PAIN; G89.29 - OTHER CHRONIC PAIN SNOMED Code(s): 231955354 (3) Hemoperitoneum (nontraumatic) Status: Acute Code(s): K66.1 - HEMOPERITONEUM SNOMED Code(s): 65765602 (4) Endometriosis determined by laparoscopy Status: Acute Code(s): N80.9 - ENDOMETRIOSIS, UNSPECIFIED SNOMED Code(s): 460734912 (5) Small bowel volvulus Status: Acute Code(s): K56.2 - VOLVULUS SNOMED Code(s): 678041920
[2017-08-30] MEDS: ONDANSETRON 4 MG/2 ML VIAL IVP PRN (15:38)
[2017-08-30] MEDS: KETOROLAC 30 MG/ML 1 ML VIAL IVP PRN ×2 (16:25→23:48)
--- NOTE | 2017-08-31 02:40 | HP ---
HISTORY AND PHYSICAL CHIEF COMPLAINT: A 27-year-old white female comes in with acute abdominal pain, acute on chronic abdominal pain she has had for the last 9 months. She has been to [facility]. They looked for stenosis in the gastric sleeve area, she had before, that has been repair. Her pain still persists right lower quadrant, where she had pain 9 month ago, relieved with a laparoscopy with scar tissue removal, which improved her pain. She is requesting this again by her surgeon at this time. Gastroenterology says there is nothing more they can do. They gave her Linzess. That is all they can do. Waiting for surgical consultation at this time. Apparently there has been some concerns with a lot of narcotics from multiple doctors. The patient states she is not addicted to any narcotics and nothing is really taking her pain away. She is requesting surgery for scar tissue to be repaired. White count 4.1, hemoglobin 10.1, platelets 198. She was evaluated by General surgery. EGD with biopsy, gastritis, dilation, gastric sleeve. Negative for H pylori, but pain has continued to persist and the pain is in the right lower quadrant. She was cleared by gynecology apparently on last admission 2 weeks ago. REVIEW OF SYSTEM: Fourteen point review of systems negative except from HPI. She is a pretty healthy female. PAST MEDICAL HISTORY: GERD, reflux, constipation, diarrhea, elevated liver enzymes. PAST SURGICAL HISTORY: Cholecystectomy, orthopedic surgery, sleeve gastrectomy, right fallopian tube removal, left foot surgery, panic disorder. SOCIAL HISTORY: No alcohol, no drugs. PAST FAMILY HISTORY: Sister with DVT and cancers. Mother, dyslipidemia, heart problems, father with hypertension, colon cancer. HOME MEDICINES: 1. Valium 10 mg at night. 2. Protonix 40 mg b.i.d. 3. Zantac 300 b.i.d. 4. Tylenol 3 1 every 6 hours p.r.n. 5. Linzess 72 mcg daily. 6. Motrin 800 mg t.i.d. 7. [place] p.r.n. ALLERGIES: MENTIONED ABOVE WOUND AMOXICILLIN, HYDROCODONE FROM [place], NAUSEA VOMITING. PHYSICAL EXAMINATION: Vital signs: Blood pressure 120s over 70s, respiratory 18-20, temp 97 to 98, pulse 79 to 80. General appearance: She is alert, oriented x3. Head: Normocephalic atraumatic. Neck is supple. Midline. Heart S1, S2 with regular rate and rhythm. Lungs is no crackles, rales, or wheezes. Abdomen is soft. Mild midepigastric tenderness, but great most of her tenderness is right lower quadrant, right inguinal area. Extremities: Normal skin color. No cyanosis, clubbing, or edema. Neurologic: Cranial nerves are intact. LABORATORY DATA: UA is negative. Potassium 4.6. Total protein 5.3, albumin is 3.0, chloride is 110. ASSESSMENT: Chronic abdominal pain, status post gastric sleeve, status post fallopian tube removal right lower quadrant, status post cyst removal right lower quadrant, status post prior laparotomy for scar tissue removal was cleared by Gynecology 2 weeks ago. Endoscopy, barium swallows are improved on last admission 2 weeks ago. Suspect she has a scar tissue in the right lower quadrant in need of vascular tissue repair with a laparoscopy. Awaiting surgical consultation. Possible referral back to [facility]. I doubt anybody will do anything from a Gastroenterology perspective, possibly surgery. If not, transferred down to [facility]. MMSHANIQUAL / NERISSAN: [id number] /
--- NOTE | 2017-08-31 02:42 | HP ---
HISTORY AND PHYSICAL CHIEF COMPLAINT: This is a 27-year-old white female with chronic abdominal pain for about 8-9 months, unclear etiology. She has seen Gastroenterology and surgical on admissions multiple times without any improvement except for 1 time she had. She states she has scar tissue, improved with surgery, but since then continue to have abdominal pain. MMODL / IJN: [id number] /
[2017-08-31] MEDS: ACETAMINOPHEN TAB 325 MG TAB PO PRN (07:09)
--- NOTE | 2017-08-31 07:56 | P.PN ---
Subjective Progress Note Date: 08/31/17 The patient is a 27-year-old female with acute on chronic abdominal pain. She reports decreased bowel movements including flatus. She reports having personal history of peritoneal adhesions. Since admission, her pain continues to progress. His history of multiple abdominal surgeries. She reports intolerance to her diet. Objective - Vital Signs Vital signs: Vital Signs Temp 97.5 F L 08/31/17 00:02 Pulse 75 08/31/17 00:02 Resp 16 08/31/17 00:02 BP 93/55 08/31/17 00:02 Pulse Ox 96 08/31/17 00:02 Intake & Output 08/30/17 08/31/17 08/31/17 18:59 06:59 18:59 Intake Total 240 Balance 240 Intake: Oral 240 Other: Voiding Method Toilet # Voids 1 - Exam GENERAL: Well developed and in mild distress. Pleasant. HEENT: No sclera icterus. Extraocular movements grossly intact. Moist buccal mucosa. Head is atraumatic, normocephalic. Hears conversational speech. No nasal drainage. NECK: Supple without lymphadenopathy. No JV distention. CHEST: Non-labored respirations and equal bilateral excursions. CARDIOVASCULAR: Palpable 2+ radial pulses. ABDOMEN: Tender along the right lower quadrant. Has rebound tenderness. MUSCULOSKELETAL: No clubbing, cyanosis or edema. NEUROLOGIC: No focal or lateralizing signs. PSYCH: Appropriate affect. Alert and oriented to person, place and time. SKIN: Good skin turgor. Well perfused. - Labs CBC & Chem 7: 08/30/17 06:41 08/30/17 06:41 Labs: Microbiology - Last 24 Hours (Table) 08/29/17 20:25 Urine Culture - Final Urine,Clean Catch Assessment and Plan (1) Peritonitis Current Visit: Yes Status: Acute Code(s): K65.9 - PERITONITIS, UNSPECIFIED SNOMED Code(s): 81994241 (2) Chronic abdominal pain Current Visit: Yes Status: Acute Code(s): R10.9 - UNSPECIFIED ABDOMINAL PAIN ; G89.29 - OTHER CHRONIC PAIN SNOMED Code(s): 903230193 Plan: 1. On exam, she has rebound tenderness including guarding of the right lower quadrant. Recommend surgical intervention. Possibility of recurrent peritoneal adhesions were described.
[2017-08-31] MEDS: KETOROLAC 30 MG/ML 1 ML VIAL IVP PRN (12:51)
[2017-08-31] MEDS: FAMOTIDINE 20 MG TAB PO SCH ×2 (12:56→22:42)
[2017-08-31] MEDS: MULTIVITAMINS, THERA 1 EACH TAB PO SCH (12:56)
[2017-08-31] MEDS: DOCUSATE 100 MG CAP PO SCH ×2 (12:56→22:42)
[2017-08-31] MEDS: PANTOPRAZOLE 40 MG TABLET PO SCH ×2 (12:56→22:42)
[2017-08-31] MEDS: LINACLOTIDE 72 MCG PO SCH (12:56)
[2017-08-31] MEDS ORDERED: LIDOCAINE 1% INJ 10MG/ML (20 ML MDV) ONE (17:17)
[2017-08-31] MEDS ORDERED: SUCCINYLCHOLINE CHLORIDE 100 MG/5 ML SYR IV ONE (17:17)
[2017-08-31] MEDS ORDERED: fentaNYL (PF) 50 MCG/ML 2 ML AMP ONE (17:17)
[2017-08-31] MEDS ORDERED: PROPOFOL 10 MG/ML 20 ML VIAL IV ONE (17:17)
[2017-08-31] MEDS ORDERED: MIDAZOLAM 2 MG/2 ML VIAL ONE (17:17)
[2017-08-31] MEDS ORDERED: ceFAZolin 1,000 MG VIAL ONE (17:17)
[2017-08-31] MEDS ORDERED: LACTATED RINGERS 1,000 ML IV ONE ×2 (17:17→19:30)
[2017-08-31] MEDS ORDERED: HYDROmorphone (PF) 1 MG/ML ONE (17:17)
[2017-08-31] MEDS ORDERED: GLYCOPYRROLATE 0.2 MG/ML 2 ML VIAL ONE (17:17)
[2017-08-31] MEDS ORDERED: ONDANSETRON 4 MG/2 ML VIAL ONE (17:17)
[2017-08-31] MEDS ORDERED: DEXAMETHASONE SOD PHOS (MDV) 100 MG/10 ML VIAL ONE (17:17)
[2017-08-31] MEDS ORDERED: ROCURONIUM BROMIDE 10 MG/ML 10 ML VIAL IV ONE (17:17)
[2017-08-31] MEDS ORDERED: NEOSTIGMINE 1 MG/ML 10 ML VIAL ONE (17:17)
[2017-08-31] MEDS ORDERED: SODIUM CHLORIDE 0.9% 50 ML with ceFAZolin 2,000 MG IV ONE ×2 (17:20)
[2017-08-31] MEDS ORDERED: BUPIVACAINE (PF) 0.25% 30 ML VIAL SQ ONE (17:45)
--- NOTE | 2017-08-31 18:24 | P.PCN ---
Date of Procedure: 08/31/17 Preoperative Diagnosis: Acute and chronic abdominal pain, peritonitis Postoperative Diagnosis: Same, hemoperitoneum, endometriosis involving sigmoid colon, pelvis, small bowel volvulus involving jejunum Procedure(s) Performed: Laparoscopic evacuation of hemoperitoneum, laparoscopic ablation of endometrial deposits pelvis, laparoscopic reduction of small bowel volvulus Anesthesia: GETA, local Surgeon: Alexsandra Miranda Estimated Blood Loss (ml): 5 Pathology: none sent Condition: stable Disposition: floor Operative Findings: 1. Small bowel volvulus involving the jejunum 2. Hemoperitoneum along the pelvis. 3. Endometrial deposits along the pelvis including the sigmoid colon
[2017-08-31] MEDS ORDERED: ACETAMINOPHEN IV (For NPO) 1,000 MG in EMPTY BAG 1 BAG IVPB ONE (18:25)
[2017-08-31] MEDS ORDERED: HYDROcodone/APAP 5-325MG 1 EACH TAB PO PRN (18:25)
[2017-08-31] MEDS ORDERED: NALOXONE 0.4 MG/ML 1 ML VIAL IV PRN (18:25)
[2017-08-31] MEDS ORDERED: MIDAZOLAM 2 MG/2 ML VIAL IVP ONE (18:40)
[2017-08-31] MEDS: MEPERIDINE 50 MG/ML SYRINGE IVP ONE ×2 (18:50→19:10)
--- NOTE | 2017-08-31 21:14 | PN ---
PROGRESS NOTE SUBJECTIVE: 27-year-old white female who has been evaluated by Dr. Miranda is going to do a laparoscopy for scar tissue removal of the right lower quadrant and possibly a Kristin revision down the road. CARDIOVASCULAR: S1, S2. Lungs clear. GI: Tenderness to palpation right lower quadrant. ASSESSMENT: 1. Chronic constipation secondary to possibly abdominal adhesions. 2. Gastroesophageal reflux disease status post Kristin repair. Continue with current treatments. Proton pump inhibitors. Possible scar tissue reduction today per Dr. Miranda. Follow up in the next 24 hours. MMODL / IJN: [id number] /
[2017-08-31] MEDS: ONDANSETRON 4 MG/2 ML VIAL IVP PRN (21:48)
[2017-08-31] MEDS: HYDROmorphone 0.5 MG/0.5 ML SYRINGE IVP PRN (21:48)
[2017-08-31] MEDS: DIAZEPAM 5 MG TAB PO SCH (22:42)
[2017-09-01] MEDS: HYDROmorphone 0.5 MG/0.5 ML SYRINGE IVP PRN ×5 (01:24→22:14)
[2017-09-01] MEDS: ONDANSETRON 4 MG/2 ML VIAL IVP PRN ×2 (05:21→13:17)
[2017-09-01] MEDS: KETOROLAC 30 MG/ML 1 ML VIAL IVP PRN ×2 (05:27→13:36)
[2017-09-01 07:34] LABS: Basophils % (A) 0 %; Eosinophils % (A) 0 %; HCT 34.4 % (34.0-46.0); HGB 10.5 gm/dL (11.4-16.0); Lymphocytes # (A) 0.8 k/uL (1.0-4.8); Lymphocytes % (A) 10 %; MCH 27.7 pg (25.0-35.0); MCHC 30.6 g/dL (31.0-37.0); MCV 90.3 fL (80.0-100.0); Mean Platelet Volume 6.8; Monocytes # (A) 0.3 k/uL (0-1.0); Monocytes % (A) 4 %; Neutrophils # (A) 6.6 k/uL (1.3-7.7); Neutrophils % (A) 84 %; Platelet Count 214 k/uL (150-450); RBC 3.81 m/uL (3.80-5.40); RDW 13.2 % (11.5-15.5); WBC 7.8 k/uL (3.8-10.6)
[2017-09-01] MEDS: LINACLOTIDE 72 MCG PO SCH (09:12)
[2017-09-01] MEDS: FAMOTIDINE 20 MG TAB PO SCH ×2 (09:20→22:11)
[2017-09-01] MEDS: DOCUSATE 100 MG CAP PO SCH ×2 (09:21→22:14)
[2017-09-01] MEDS: PANTOPRAZOLE 40 MG TABLET PO SCH ×2 (09:21→22:12)
[2017-09-01] MEDS: MULTIVITAMINS, THERA 1 EACH TAB PO SCH (10:06)
--- NOTE | 2017-09-01 12:27 | P.PN ---
Subjective Progress Note Date: 09/01/17 The patient is a 27-year-old female with acute on chronic abdominal pain. She is now postoperative day 1 status post diagnostic laparoscopy with evacuation of hemoperitoneum. Her initial presenting pain is now resolved. She complains of mild post incisional pain. She continues to have gastroesophageal reflux disease as a result of her sleeve gastrectomy. Objective - Vital Signs Vital signs: Vital Signs Temp 98.2 F 09/01/17 11:20 Pulse 76 09/01/17 11:20 Resp 18 09/01/17 11:20 BP 115/73 09/01/17 11:20 Pulse Ox 97 09/01/17 11:20 Intake & Output 08/31/17 09/01/17 09/01/17 18:59 06:59 18:59 Intake Total 500 1320 Output Total 30 Balance 470 1320 Intake: IV 500 400 Oral 920 Output: Urine 25 Estimated Blood Loss 5 Other: # Voids 2 1 - Exam GENERAL: Well developed and in mild distress. Pleasant. HEENT: No sclera icterus. Extraocular movements grossly intact. Moist buccal mucosa. Head is atraumatic, normocephalic. Hears conversational speech. No nasal drainage. NECK: Supple without lymphadenopathy. No JV distention. CHEST: Non-labored respirations and equal bilateral excursions. CARDIOVASCULAR: Palpable 2+ radial pulses. ABDOMEN: Resolve rebound tenderness. All incisions clean dry and intact. Minimal incisional pain. MUSCULOSKELETAL: No clubbing, cyanosis or edema. NEUROLOGIC: No focal or lateralizing signs. PSYCH: Appropriate affect. Alert and oriented to person, place and time. SKIN: Good skin turgor. Well perfused. - Labs CBC & Chem 7: 09/01/17 07:18 08/30/17 06:41 Labs: Abnormal Lab Results - Last 24 Hours (Table) 09/01/17 Range/Units 07:18 Hgb 10.5 L (11.4-16.0) gm/dL MCHC 30.6 L (31.0-37.0) g/dL Lymphocytes # 0.8 L (1.0-4.8) k/uL Assessment and Plan (1) Peritonitis Current Visit: Yes Status: Acute Code(s): K65.9 - PERITONITIS, UNSPECIFIED SNOMED Code(s): 27892477 (2) Chronic abdominal pain Current Visit: Yes Status: Acute Code(s): R10.9 - UNSPECIFIED ABDOMINAL PAIN ; G89.29 - OTHER CHRONIC PAIN SNOMED Code(s): 578202123 (3) Hemoperitoneum (nontraumatic) Current Visit: Yes Status: Acute Code(s): K66.1 - HEMOPERITONEUM SNOMED Code(s): 20267478 (4) Endometriosis determined by laparoscopy Current Visit: Yes Status: Acute Code(s): N80.9 - ENDOMETRIOSIS, UNSPECIFIED SNOMED Code(s): 478044784 (5) Small bowel volvulus Current Visit: Yes Status: Acute Code(s): K56.2 - VOLVULUS SNOMED Code(s) : 424671271 Plan: 1. Clinically, her pain has improved. 2. Diet as tolerated. 3. Patient cleared from a surgical standpoint for discharge with follow-up in the office in 48-72 hours.
[2017-09-01] MEDS ORDERED: SCOPOLAMINE 1.5MG/72HR PATCH TRANSDERM STA (13:20)
[2017-09-01] MEDS: SODIUM CHLORIDE 0.9% 1,000 ML IV SCH ×2 (13:33→14:39)
--- NOTE | 2017-09-01 14:55 | PN ---
PROGRESS NOTE SUBJECTIVE: A 27-year-old white female with chronic abdominal pain postoperative day 1 after surgery for which found endometriosis, hemoperitoneum. Her pain is greatly improved in the right lower quadrant. She has incisional pain. She is worried about her GERD from the gastric sleeve surgery. Vital signs appear to be stable. Pulse 76, respiratory 16 to 18, temp 98.2, blood pressure 151/over 70s, O2 97% on room air. Cardiovascular S1, S2. Lungs are clear. GI incisional pain, right lower quadrant pain is much improved. Psych: Fair mood and affect. White count 7.8, hemoglobin 10.5. ASSESSMENT: 1. Acute abdominal pain status post laparoscopy. Diagnosed by surgery with hemoperitoneum. 2. Peritonitis. 3. Chronic abdominal pain. 4. Endometriosis. 5. Small-bowel volvulus. Her pain is improving. Diet as tolerated. Discharge home in the next 24-48 hours. MMODL / IJN: [id number] /
[2017-09-01 17:46] LABS: Magnesium 1.6 mg/dL (1.6-2.3); Phosphorus 3.4 mg/dL (2.5-4.5)
[2017-09-01] MEDS: DIAZEPAM 5 MG TAB PO SCH (22:12)
[2017-09-02 00:46] VITALS: RESP 18
[2017-09-02] MEDS: HYDROmorphone 0.5 MG/0.5 ML SYRINGE IVP PRN ×3 (01:40→09:27)
[2017-09-02 05:57] LABS: Basophils % (A) 1 %; Eosinophils # (A) 0.2 k/uL (0-0.7); Eosinophils % (A) 5 %; HCT 30.1 % (34.0-46.0); HGB 9.3 gm/dL (11.4-16.0); Hypochromasia Slight; Lymphocytes # (A) 1.7 k/uL (1.0-4.8); Lymphocytes % (A) 49 %; MCHC 30.9 g/dL (31.0-37.0); MCV 90.8 fL (80.0-100.0); Mean Platelet Volume 7.4; Monocytes # (A) 0.2 k/uL (0-1.0); Monocytes % (A) 4 %; Neutrophils # (A) 1.4 k/uL (1.3-7.7); Neutrophils % (A) 39 %; Platelet Count 171 k/uL (150-450); RBC 3.32 m/uL (3.80-5.40); RDW 13.5 % (11.5-15.5); WBC 3.5 k/uL (3.8-10.6)
[2017-09-02] MEDS: MAGNESIUM SULFATE-D5W PMX 1 GM in DEXTROSE/WATER 1 100ML.BAG IVPB SCH ×4 (06:51→10:51)
[2017-09-02 08:01] VITALS: BP 105/70; PULSE 62; TEMP 97.9
[2017-09-02] MEDS: LINACLOTIDE 72 MCG PO SCH (08:25)
[2017-09-02] MEDS: DOCUSATE 100 MG CAP PO SCH (08:27)
[2017-09-02] MEDS: FAMOTIDINE 20 MG TAB PO SCH (08:27)
[2017-09-02] MEDS: MULTIVITAMINS, THERA 1 EACH TAB PO SCH (08:27)
[2017-09-02] MEDS: PANTOPRAZOLE 40 MG TABLET PO SCH (08:27)
[2017-09-02 12:01] LABS: Iron Saturation 12.85 (12.00-45.00)
[2017-09-02 12:05] LABS: Parathyroid Hormone Intact 24.4 pg/mL (14.0-72.0)
[2017-09-02] MEDS: HYDROcodone/APAP 7.5-325MG 1 EACH TAB PO PRN ×2 (12:43→13:49)
[2017-09-02] MEDS: ONDANSETRON 4 MG/2 ML VIAL IVP PRN (12:58)
--- NOTE | 2017-09-02 13:22 | P.PN ---
<Helena Rajan M - Last Filed: 09/02/17 13:16> Subjective Progress Note Date: 09/02/17 27-year-old female seen and examined sitting up in bed. Patient states she has been up ambulating in the hallway. Patient states passing gas and tolerating a diet and is asking per diet to be advanced. Patient was seen with Dr. Miranda at the bedside. Patient is anxious to be discharged. The plan will be to discharge the patient home today and patient will be seen tomorrow in the office with Dr. Miranda Patient is postop 31 of August Laparoscopic evacuation of hemoperitoneum, laparoscopic ablation of endometrial deposits pelvis, laparoscopic reduction of small bowel volvulus Objective - Vital Signs Vital signs: Vital Signs Temp 97.9 F 09/02/17 07:58 Pulse 62 09/02/17 07:58 Resp 18 09/02/17 07:58 BP 105/70 09/02/17 07:58 Pulse Ox 100 09/02/17 07:58 Intake & Output 09/01/17 09/02/17 09/02/17 18:59 06:59 18:59 Intake Total 60 Output Total 60 65 Balance 0 -65 Intake: Oral 60 Output: Urine 25 Emesis 60 40 Other: Voiding Method Toilet Toilet # Voids 1 1 1 - Exam Physical exam 27-year-old female sitting up in bed does not appear in any acute distress Lungs clear adequate air movement on room air Heart S1-S2 audible regular Abdomen surgical incision sites dry no redness surgical tenderness appropriate not distended bowel tones active passing gas no stool Extremities no edema - Labs CBC & Chem 7: 09/02/17 05:20 08/30/17 06:41 Labs: Abnormal Lab Results - Last 24 Hours (Table) 09/02/17 09/02/17 Range/Units 05:20 05:20 WBC 3.5 L (3.8-10.6) k/uL RBC 3.32 L (3.80-5.40) m/uL Hgb 9.3 L (11.4-16.0) gm/dL Hct 30.1 L (34.0-46.0) % MCHC 30.9 L (31.0-37.0) g/dL Iron 37 L (50-170) ug/dL Assessment and Plan Assessment: Impression Chronic abdominal pain greater than 6 months 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 Miranda start full liquid diet Defer to the attending for medical management Resume home meds Reinforce to the patient the need to follow-up with [facility] factory superintendent dr dietrich as directed Continue recommendations by GI service no plan for further endoscopic is at this time note dictated for dr Miranda rounding on behalf of dr boucher The above impression and plan of care have been discussed and directed by signing physician. Helena Rajan nurse practitioner acting as scribe for signing physician. <Alexsandra Miranda N - Last Filed: 09/03/17 04:33> Objective - Vital Signs Vital signs: Vital Signs Temp 97.9 F 09/02/17 07:58 Pulse 62 09/02/17 07:58 Resp 18 09/02/17 07:58 BP 105/70 09/02/17 07:58 Pulse Ox 100 09/02/17 07:58 Intake & Output 09/02/17 09/02/17 09/03/17 06:59 18:59 06:59 Intake Total 60 Output Total 65 Balance -5 Intake: Oral 60 Output: Urine 25 Emesis 40 Other: Voiding Method Toilet Toilet # Voids 1 1 - Labs CBC & Chem 7: 09/02/17 05:20 08/30/17 06:41 Labs: Abnormal Lab Results - Last 24 Hours (Table) 09/02/17 09/02/17 Range/Units 05:20 05:20 WBC 3.5 L (3.8-10.6) k/uL RBC 3.32 L (3.80-5.40) m/uL Hgb 9.3 L (11.4-16.0) gm/dL Hct 30.1 L (34.0-46.0) % MCHC 30.9 L (31.0-37.0) g/dL Iron 37 L (50-170) ug/dL Assessment and Plan (1) Peritonitis Status: Acute Code(s): K65.9 - PERITONITIS, UNSPECIFIED SNOMED Code(s): 42059294 (2) Chronic abdominal pain Status: Acute Code(s): R10.9 - UNSPECIFIED ABDOMINAL PAIN; G89.29 - OTHER CHRONIC PAIN SNOMED Code(s): 227084813 (3) Hemoperitoneum (nontraumatic) Status: Acute Code(s): K66.1 - HEMOPERITONEUM SNOMED Code(s): 04289898 (4) Endometriosis determined by laparoscopy Status: Acute Code(s): N80.9 - ENDOMETRIOSIS, UNSPECIFIED SNOMED Code(s): 217099136 (5) Small bowel volvulus Status: Acute Code(s): K56.2 - VOLVULUS SNOMED Code(s): 930612852
[2017-09-02 13:27] LABS: Folate, Serum 7.3 ng/mL
[2017-09-02 13:58] LABS: Hemoglobin A1C 4.4 % (4.0-6.0)
[2017-09-03 14:08] LABS: Zinc, Serum 71 ug/dL (60-130)
[2017-09-03 14:18] LABS: Vitamin D, 1, 25-Dihydroxy 36 pg/mL (20 - 79)
[2017-09-04 03:56] LABS: Vitamin B1 38 ug/L (38-122)
[2017-09-04 05:56] LABS: Vitamin A 18 ug/dL (38-106)
--- NOTE | 2017-09-11 22:17 | P.OP ---
Date of Procedure: 08/31/17 Description of Procedure: Date of Procedure: 08/31/17 SURGEON: JAGUAR PRADO MD LINE CLEARANCE FOREMAN: Corazon Hooper PREOPERATIVE DIAGNOSES: 1. Acute and chronic abdominal pain 2. Peritonitis 3. History of sleeve gastrectomy 4. Status post massive weight loss, 100+ pounds 5. Intractable nausea and vomiting 6. Obesity, BMI 34.0. 7. Previous history of intra-abdominal adhesions. POSTOPERATIVE DIAGNOSES: 1. Acute and chronic abdominal pain 2. Peritonitis 3. History of sleeve gastrectomy 4. Status post massive weight loss, 100+ pounds 5. Intractable nausea and vomiting 6. Obesity, BMI 34.0. 7. Previous history of intra-abdominal adhesions. 8. Hemoperitoneum 9. Endometriosis involving sigmoid colon and pelvis 10. Small bowel volvulus involving jejunum PROCEDURES PERFORMED: 1. Diagnostic laparoscopy. 2. Laparoscopic evacuation of hemoperitoneum 3. Laparoscopic ablation of endometrial deposits along the pelvis 4. Laparoscopic reduction of small bowel volvulus ANESTHESIA: GETA, local ESTIMATED BLOOD LOSS: 5 mL SPECIMENS REMOVED: None. COMPLICATIONS: None. Condition: stable Disposition: floor OPERATIVE FINDINGS: 1. Small bowel volvulus involving the jejunum 2. Hemoperitoneum along the pelvis. 3. Endometrial deposits along the pelvis including the sigmoid colon INDICATIONS: The patient is a 27-year-old female who presents with acute on chronic abdominal pain. Clinical exam consistent with peritonitis out of proportion to exam. Given the severity of her symptoms, diagnostic laparoscopy with lysis of adhesions was described. Benefits and risks, including possibility of open technique were described at length. Informed consent was obtained. DESCRIPTION OF PROCEDURE: Patient was brought to the operating room, laid in supine position. After general induction, the abdomen was prepped and draped in standard sterile fashion. Prior to incision, a timeout protocol was confirmed with surgical team regarding patient's name including procedure to be performed. Preoperative medications including antibiotics were given. Additionally, bilateral SCDs including heparin was administered. A 5 mm laparoscopic trocar entry performed of the left upper quadrant after anesthetizing the skin with local anesthetic. The abdomen was insufflated to 15 mmHg pressure she tolerated well. Diagnostic laparoscopy demonstrated blood along the pelvis of unclear etiology. Bilateral ovaries including the ovary was within normal limits. Along the pelvis and sigmoid colon, endometrial deposits were identified and ablated with electrical cautery. Next, the hemoperitoneum pelvis was aspirated at least 30 to 50 mL. No bilateral inguinal hernias were identified. Additionally, the small bowel was slightly distended. Two additional 5-mm trocars were placed along the left lateral abdominal wall. The base of the cecum was without inflammation. The small bowel was investigated from the terminal ileum proximally. A marked demarcation of the jejunum was identified with a small bowel volvulus. The small bowel was reduced from proximally to distally. The abdomen was irrigated with 1 L of normal saline until the aspirant was completely clear. The small bowel was re-investigated in a retrograde fashion as well as the antegrade fashion to confirm closure of all internal hernias including reduction of any small bowel volvulus. Final inspection of the abdomen demonstrated adequate hemostasis including no enterotomies. All instruments and pneumoperitoneum were evacuated from the abdominal cavity. All local was infiltrated in all wounds for postop analgesia. The skin was cleansed with hydrogen peroxide. Dermabond was applied to the skin after reapproximating the incisions with 4-0 Monocryl as described. At the end of the procedure, needle, sponge, and instrument count was verified correct by fire protection equipment technician. The patient had tolerated the procedure well, was taken to the postanesthesia care unit in stable condition. Intraoperative abdominal films were described and discussed with the family who were overall pleased with the level of care.
== END 2017-09-02 15:41 | disposition home or self-care (01) ==
LOC: EC 19:00 → 6PED 23:39
PROVIDERS: ADMIT Family Medicine; ATTEND Family Medicine
DX: G89.29 Other chronic pain (principal); K65.9 Peritonitis, unspecified; K56.2 Volvulus; N80.5 Endometriosis of intestine; N80.3 Endometriosis of pelvic peritoneum; K66.1 Hemoperitoneum; F41.0 Panic disorder [episodic paroxysmal anxiety]; R74.8 Abnormal levels of other serum enzymes; K21.9 Gastro-esophageal reflux disease without esophagitis; K29.70 Gastritis, unspecified, without bleeding; Z88.5 Allergy status to narcotic agent; Z98.84 Bariatric surgery status; Z79.899 Other long term (current) drug therapy; Z88.0 Allergy status to penicillin; Z90.49 Acquired absence of other specified parts of digestive tract; Z80.49 Family history of malignant neoplasm of other genital organs; Z80.0 Family history of malignant neoplasm of digestive organs; Z82.49 Family history of ischemic heart disease and other diseases of the circulatory system; Z83.2 Family history of diseases of the blood and blood-forming organs and certain disorders involving the immune mechanism; Z90.721 Acquired absence of ovaries, unilateral; R63.4 Abnormal weight loss; Z68.34 Body mass index [BMI] 34.0-34.9, adult; E66.9 Obesity, unspecified
CPT/HCPCS: 58662; 44238; 96361 ×2; 96374 ×2; 96375 ×2; 96376 ×2; 99285; 36415; 84255; 82652; 84425; 80053 ×2; 82607; 82728; 82525; 82746; 83540; 83550; 83690; 83735 ×2; 84100 ×2; 84443; 84590; 84630; 85025 ×4; 81001; 81025; 83970; 87086; 83036; 74022; G0378 ×5; J2250; J2710; J2175; J2405 ×5; J0690 ×2; J2001; J3010; J1885 ×4; J1170 ×4; J3475; J1100; J0131; J0330; J2704

== ENCOUNTER → 2017-09-04 | Outpatient (CLI) | payer BC ==
[2017-09-04 17:01] VITALS: BP 141/82; PULSE 83; RESP 15; TEMP 98.2; BMI 33.1
--- NOTE | 2017-11-07 13:50 | P.PN ---
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 Intraoperative findings included hemoperitoneum which was evacuated. Additional workup including review her records demonstrated narrowing and stenosis of her sleeve. She had a prior sleeve gastrectomy 2016. Previous balloon dilatation was performed. She reports recurrent nausea and vomiting. Fluid intake has been minimal. At height of 5 feet 3 inches, her ideal body weight is 140 pounds. Highest weight of 304 pounds. She comes in 185 pounds. Total weight loss 119 pounds. Percent excess weight loss 72%. Body mass index reduced from 54.0 to 33.1 PHYSICAL EXAM: VITAL SIGNS: Height 5 foot 3 inches, weight 185 pounds. BMI 33.1 Vital Signs Temp 98.2 F 09/04/17 14:59 Pulse 83 09/04/17 14:59 Resp 15 09/04/17 14:59 BP 141/82 09/04/17 14:59 Pulse Ox GENERAL: Well-developed in no acute distress. HEENT: No scleral icterus. Extraocular movements grossly intact. Hears conversational speech. No nasal drainage. NECK: Supple without lymphadenopathy. CHEST: Nonlabored respirations with equal bilateral excursions. CARDIOVASCULAR: Regular rate and regular rhythm. Distal 2+ pulses. ABDOMEN: Obese, soft, nontender, nondistended. Incisions well approximated. No signs of infection. MUSCULOSKELETAL: No clubbing, cyanosis. Gross strength 5/5 distal lower extremities. NEURO: No focal or lateralizing signs. Cranial nerves 2 through 12 grossly within normal limits. PSYCH: Appropriate affect. Alert and oriented to person, place and time. SKIN: Poor skin turgor. Well perfused. ASSESSMENT: 1. Morbid obesity due to excess calories. 2. Body mass index of 53.4 to 33.1 3. Intractable nausea and vomiting 4. Complications sleeve gastrectomy 5. Dehydration 6. History of hypomagnesia PLAN: 1. 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 May benefit from a revision to a gastric bypass. 2. In the interim, scopolamine patches for chronic nausea. 3. IV fluid hydration recommended. 4. Recommend correction of nutritional deficiencies.
== END | disposition home or self-care (01) ==
LOC: BARWHC3 13:50
PROVIDERS: ATTEND Surgery Plastic and Reconstructive Surgery
DX: K95.89 Other complications of other bariatric procedure (principal); E66.01 Morbid (severe) obesity due to excess calories; R11.2 Nausea with vomiting, unspecified; E86.0 Dehydration; E83.42 Hypomagnesemia; Z68.33 Body mass index [BMI] 33.0-33.9, adult; Z98.84 Bariatric surgery status
CPT/HCPCS: 99211

== ENCOUNTER → 2017-09-11 | Outpatient (CLI) | payer BC ==
--- NOTE | 2017-09-11 10:36 | FL ---
EXAMINATION TYPE: FL esophagus cervic/pharynx DATE OF EXAM: 09/11/2017 COMPARISON: 07/19/2017 CLINICAL HISTORY: Gastric sleeve with stricture dilatation x4. Contrast: Omnipaque 350 50 mL 54 seconds of fluoroscopic time. 14 images submitted. Noted are changes of sleeve gastrectomy. There is no evidence for esophageal dilatation. Previously n oted area of stricture demonstrates persistent mild narrowing however there is no evidence for obstru ction as contrast is noted to flow into the distal stomach without difficulty or delay. There is no e vidence for leak. IMPRESSION: 1. Persistent mild narrowing at the site of prior dilatation proximal gastric body however there is n o evidence for obstruction at this time as contrast is noted to flow into the distal stomach without significant delay at this time.
== END | disposition home or self-care (01) ==
LOC: RADFLWHC 09:51
PROVIDERS: ATTEND Surgery
DX: K31.89 Other diseases of stomach and duodenum (principal); Z88.1 Allergy status to other antibiotic agents; Z88.5 Allergy status to narcotic agent
CPT/HCPCS: 74210

== ENCOUNTER → 2017-09-16 | Outpatient (CLI) | payer BC ==
[2017-09-16 13:45] VITALS: BP 121/70; PULSE 95; RESP 14; TEMP 98.4; BMI 32.3
--- NOTE | 2017-09-16 15:05 | P.HPBAR ---
Bariatric H&P - History & Physicial H&P Date: 09/16/17 History & Physicial: Visit/CC: dysphagia, discuss potential EGD Patient initial contact: Initial weight: 138.062 kg Initial weight in pounds: 304.37 Height: 5 ft 3 in Initial BMI: 53.8 Last weight: Current weight: 82.962 kg Current weight in pounds: 182.90 Current BMI: 32.3 Ellinger body weight (based on NIH guidelines): 52.163 kg Excess body weight loss: 64.1% The patient is a 27 year-old F who presents for Bariatric Assessment. Patient presents today for sleeve gastrectomy follow-up. She's had issues with some chronic nausea and dysphagia. She denies a significant abdominal pain. Past Medical History Past Medical History: GERD/Reflux Additional Past Medical History / Comment(s): ABDOMINAL PAIN, CONSTIPATION/ DIARRHEA, Elevated liver enzymes for unknown reason. History of Any Multi-Drug Resistant Organisms: None Reported Past Surgical History: Cholecystectomy, Orthopedic Surgery Additional Past Surgical History / Comment(s): LEFT FOOT SX, Right fallopian tube removed May 2015, SLEEVE GASTRECTOMY 03/26/15, EGD Past Anesthesia/Blood Transfusion Reactions: Postoperative Nausea & Vomiting ( PONV) Past Psychological History: Panic Disorder Additional Psychological History / Comment(s): PASSED OUT AT WORK AND HAD PANIC ATTACK. one time issue per pt. no problems since Smoking Status: Never smoker Past Alcohol Use History: None Reported Past Drug Use History: None Reported - Past Family History Sister(s) Family Medical History: Cancer, Deep Vein Thrombosis (DVT) Additional Family Medical History / Comment(s): Cervical cancer Mother Family Medical History: Hyperlipidemia Additional Family Medical History / Comment(s): HEART PROBLEMS, IRREG RYTHM Father Family Medical History: Hyperlipidemia, Hypertension Additional Family Medical History / Comment(s): Paternal grandfather had kidney disorder and colon cancer. Surgical - Exam Vital Signs Temp Pulse Resp BP 98.4 F 95 14 121/70 09/16/17 13:40 09/16/17 13:40 09/16/17 13:40 09/16/17 13:40 - General well developed, no distress - Eyes PERRL - ENT normal pinna - Neck no masses - Respiratory normal expansion - Cardiovascular Rhythm: regular - Abdomen Abdomen: soft, non tender Bariatric Assessment & Plan Plan: Status post sleeve yesterday. Patient has chronic nausea dysphagia and intermittent GERD. Patient is scheduled for EGD tomorrow. Bariatric Checklist Checklist: Plan: Checklist: EGD: 1. Hiatal hernia: 2. H. Pylori: HgbA1c: Vitamin D: Smoking: Never smoker Primary care physician referral: DR. Nanette PHAM Psychiatry clearance: Cardiology clearance: Sleep study: Diet journal: VTE risk score: VTE risk level: Rehab needs at discharge:
== END | disposition home or self-care (01) ==
LOC: BARWHC3 13:22
PROVIDERS: ATTEND Surgery
DX: Z48.815 Encounter for surgical aftercare following surgery on the digestive system (principal); K95.89 Other complications of other bariatric procedure; K21.9 Gastro-esophageal reflux disease without esophagitis; R11.2 Nausea with vomiting, unspecified; F41.0 Panic disorder [episodic paroxysmal anxiety]; Z90.49 Acquired absence of other specified parts of digestive tract; Z98.84 Bariatric surgery status; Z98.890 Other specified postprocedural states
CPT/HCPCS: 99211

== ENCOUNTER 2017-09-17 08:35 | Day surgery (SDC) | payer BC ==
[2017-09-17 09:41] VITALS: TEMP 98.4
[2017-09-17] MEDS: LACTATED RINGERS 1,000 ML IV SCH ×2 (09:51→10:00)
[2017-09-17] MEDS ORDERED: PROPOFOL 10 MG/ML 20 ML VIAL IV ONE (10:02)
[2017-09-17] MEDS ORDERED: LIDOCAINE 1% INJ 10MG/ML (20 ML MDV) ONE (10:02)
--- NOTE | 2017-09-17 10:12 | P.GSHP ---
History of Present Illness H&P Date: 09/17/17 Chief Complaint: GERD, dysphagia This a 27-year-old female who's had complaints of GERD and dysphagia. Patient presents today for EGD. She has a history of gastric sleeve. Past Medical History Past Medical History: GERD/Reflux Additional Past Medical History / Comment(s): ABDOMINAL PAIN, CONSTIPATION/ DIARRHEA, Elevated liver enzymes for unknown reason. History of Any Multi-Drug Resistant Organisms: None Reported Past Surgical History: Cholecystectomy, Orthopedic Surgery Additional Past Surgical History / Comment(s): LEFT FOOT SX, Right fallopian tube removed May 2015, SLEEVE GASTRECTOMY 03/26/15, EGD W DILATION, LAPROSCOPIC EXAM [address] PRADO Past Anesthesia/Blood Transfusion Reactions: Postoperative Nausea & Vomiting ( PONV) Past Psychological History: Panic Disorder Additional Psychological History / Comment(s): PASSED OUT AT WORK AND HAD PANIC ATTACK. one time issue per pt. no problems since Smoking Status: Never smoker Past Alcohol Use History: None Reported Past Drug Use History: None Reported - Past Family History Sister(s) Family Medical History: Cancer, Deep Vein Thrombosis (DVT) Additional Family Medical History / Comment(s): Cervical cancer Mother Family Medical History: Hyperlipidemia Additional Family Medical History / Comment(s): HEART PROBLEMS, IRREG RYTHM Father Family Medical History: Hyperlipidemia, Hypertension Additional Family Medical History / Comment(s): Paternal grandfather had kidney disorder and colon cancer. Medications and Allergies Home Medications Medication Instructions Recorded Confirmed Type Multivitamins, Thera [Multivitamin 1 tab PO DAILY 03/01/17 09/17/17 History (formulary)] Pantoprazole Sodium [Protonix] 40 mg PO BID #60 tablet. 07/22/17 09/17/17 Rx Ranitidine HCl [Zantac] 300 mg PO BID 08/08/17 09/17/17 History Temazepam [Restoril] 7.5 mg PO DAILY 09/10/17 09/17/17 History Cyanocobalamin (Vitamin B-12) 1,000 mcg PO DAILY 09/14/17 09/17/17 History [Vitamin B-12] Vitamin A Acetate [Vitamin A] 10,000 unit SL DAILY 09/14/17 09/17/17 History Ibuprofen 200 mg PO DAILY PRN 09/16/17 09/17/17 History Magnesium 500 mg PO DAILY 09/17/17 09/17/17 History Allergies Allergy/AdvReac Type Severity Reaction Status Date / Time amoxicillin [Amoxicillin] AdvReac Yeast Verified 09/17/17 09:40 Infection hydrocodone [From [place]] AdvReac Nausea & Verified 09/17/17 09:40 Vomiting Surgical - Exam Vital Signs Temp Pulse Resp BP Pulse Ox 98.4 F 81 16 116/71 100 09/17/17 09:38 09/17/17 09:38 09/17/17 09:38 09/17/17 09:38 09/17/17 09:38 - General well developed, no distress - Eyes PERRL - ENT normal pinna - Neck no masses - Respiratory normal expansion - Cardiovascular Rhythm: regular - Abdomen Abdomen: soft, non tender Assessment and Plan Assessment: GERD. We'll perform EGD and possible balloon dilatation of gastric sleeve. Patient is where risks of surgery including sleeve perforation.
--- NOTE | 2017-09-17 10:23 | P.OP ---
Date of Procedure: 09/17/17 Preoperative Diagnosis: GERD Postoperative Diagnosis: Antral gastritis Procedure(s) Performed: EGD with balloon dilatation Anesthesia: MAC Surgeon: Cali Jha Pathology: other (Antrum) Condition: stable Disposition: PACU Description of Procedure: The patient's placed on the endoscopy table in the lateral position. She received IV sedation. The gastroscope placed oropharynx passed in the esophagus and stomach. Scope was then placed through the pylorus. First and second portion of the duodenum appeared normal. Scope was then brought back the antrum this is mildly inflamed. A biopsies performed. The scope was then brought back through the sleeve. There is no evidence of any obvious obstruction the sleeve. Due to patient's symptoms and dysphagia a 20 mm balloon was placed into the gastric sleeve. This balloon traveled easily throughout sleeve. Just below the GE junction into. There is slight torsion of the gastric sleeve in this area was dilated easily. The GE junction was at 47 is. There was no evidence of a hiatal hernia. The distal esophagus appeared normal. The proximal esophagus. Normal. Scope was then withdrawn for patient.
[2017-09-17] MEDS ORDERED: ONDANSETRON 4 MG/2 ML VIAL IVP ONE (10:40)
[2017-09-17] MEDS ORDERED: fentaNYL (PF) 50 MCG/ML 2 ML AMP IVP ONE ×2 (10:52→11:11)
[2017-09-17] MEDS ORDERED: FAMOTIDINE 20 MG/2 ML VIAL IVP ONE (10:52)
[2017-09-17] MEDS ORDERED: MIDAZOLAM 2 MG/2 ML VIAL IVP ONE ×2 (10:52→11:27)
[2017-09-17 12:04] VITALS: RESP 18
[2017-09-17 12:05] VITALS: BP 114/64; PULSE 74
== END 2017-09-17 12:33 | disposition home or self-care (01) ==
LOC: ORWHC2ENDO 08:35
PROVIDERS: ATTEND Surgery
DX: K29.50 Unspecified chronic gastritis without bleeding (principal); K21.9 Gastro-esophageal reflux disease without esophagitis; R13.10 Dysphagia, unspecified; Z98.84 Bariatric surgery status; K95.89 Other complications of other bariatric procedure; R74.8 Abnormal levels of other serum enzymes; Z79.899 Other long term (current) drug therapy; Z88.5 Allergy status to narcotic agent; Z88.0 Allergy status to penicillin
CPT/HCPCS: 81025; 88305; 43239; 43245; J2250; J2405; J2001; J3010; J2704; C1726

== ENCOUNTER → 2018-01-08 | Outpatient (CLI) | payer BC ==
[2018-01-08 12:18] LABS: Basophils % (A) 0 %; Eosinophils # (A) 0.2 k/uL (0-0.7); Eosinophils % (A) 2 %; HCT 38.2 % (34.0-46.0); HGB 13.1 gm/dL (11.4-16.0); Lymphocytes # (A) 1.4 k/uL (1.0-4.8); Lymphocytes % (A) 23 %; MCH 31.6 pg (25.0-35.0); MCHC 34.3 g/dL (31.0-37.0); MCV 92.1 fL (80.0-100.0); Mean Platelet Volume 6.9; Monocytes # (A) 0.3 k/uL (0-1.0); Monocytes % (A) 5 %; Neutrophils # (A) 4.3 k/uL (1.3-7.7); Neutrophils % (A) 68 %; Platelet Count 200 k/uL (150-450); RBC 4.15 m/uL (3.80-5.40); WBC 6.3 k/uL (3.8-10.6)
--- NOTE | 2018-01-08 12:22 | US ---
EXAMINATION TYPE: US kidneys/renal and bladder DATE OF EXAM: 01/08/2018 COMPARISON: CT 08/11/2017 CLINICAL HISTORY: R10.2 LUQ Abdominal Pain. fever x 3 days EXAM MEASUREMENTS: Right Kidney: 10.1 x 5.3 x 4.2 cm Left Kidney: 11.0 x 5.5 x 5.2 cm Post Void Residual Volume: Bladder insufficiently full to get post void mL Right Kidney: No hydronephrosis or masses seen Left Kidney: No hydronephrosis or masses seen Bladder: Insufficiently full to fully evaluate Bilateral Jets seen: Yes Normal Post Void Residual: Bladder insufficiently full to get post void There is no evidence for hydronephrosis at this point in time. No nephrolithiasis is seen. No andressa s are identified. The urinary bladder is anechoic. Bilateral ureteral jets are seen. Sub optimal exam overall due to overlying bowel gas and insufficiently full bladder. IMPRESSION: 1. Limited examination. No distinct abnormality appreciated at this time.
[2018-01-08 12:28] LABS: Calcium 8.8 mg/dL (8.4-10.2); Magnesium 1.8 mg/dL (1.6-2.3)
== END | disposition home or self-care (01) ==
LOC: RADUSWWP 11:32
PROVIDERS: ATTEND Family Medicine
DX: R10.12 Left upper quadrant pain (principal); I10 Essential (primary) hypertension; N39.0 Urinary tract infection, site not specified; B89 Unspecified parasitic disease
CPT/HCPCS: 36415; 76770; 82150; 82310; 83690; 83735; 84443; 85025

== ENCOUNTER 2018-01-13 10:45 | Observation (INO) | payer BC ==
[2018-01-13 12:58] VITALS: BMI 34.4
[2018-01-13] MEDS ORDERED: HYDROcodone/APAP 5-325MG 1 EACH TAB PO PRN (15:23)
[2018-01-13] MEDS ORDERED: ACETAMINOPHEN TAB 500 MG TAB PO PRN (15:40)
[2018-01-13 15:41] VITALS: RESP 18
[2018-01-13 16:03] LABS: HCT 37.5 % (34.0-46.0); HGB 12.5 gm/dL (11.4-16.0); MCH 30.6 pg (25.0-35.0); MCHC 33.4 g/dL (31.0-37.0); MCV 91.8 fL (80.0-100.0); Platelet Count 184 k/uL (150-450); RBC 4.09 m/uL (3.80-5.40); RDW 12.9 % (11.5-15.5); WBC 5.2 k/uL (3.8-10.6)
[2018-01-13 16:12] LABS: ALT 31 U/L (9-52); AST 19 U/L (14-36); Albumin 3.4 g/dL (3.5-5.0); Alkaline Phosphatase 42 U/L (38-126); Anion Gap 8 mmol/L; Blood Urea Nitrogen 11 mg/dL (7-17); Calcium 8.5 mg/dL (8.4-10.2); Carbon Dioxide 25 mmol/L (22-30); Chloride 106 mmol/L (98-107); Glucose 84 mg/dL (74-99); Potassium 4.2 mmol/L (3.5-5.1); Sodium 139 mmol/L (137-145); Total Bilirubin 0.5 mg/dL (0.2-1.3); Total Protein 5.8 g/dL (6.3-8.2)
[2018-01-13] MEDS: SODIUM CHLORIDE 0.9% 1,000 ML IV SCH (17:31)
[2018-01-13] MEDS: ZOLPIDEM 5 MG TAB PO SCH ×2 (20:21→21:46)
[2018-01-13] MEDS: PANTOPRAZOLE 40 MG TABLET PO SCH (22:57)
[2018-01-14] MEDS ORDERED: ONDANSETRON 4 MG/2 ML VIAL IVP STA (04:14)
[2018-01-14] MEDS ORDERED: KETOROLAC 30 MG/ML 1 ML VIAL IVP PRN (04:26)
[2018-01-14] MEDS ORDERED: PANTOPRAZOLE 40 MG TABLET PO SCH (07:30)
[2018-01-14 07:31] LABS: Basophils % (A) 0 %; Eosinophils # (A) 0.2 k/uL (0-0.7); Eosinophils % (A) 5 %; HCT 34.7 % (34.0-46.0); HGB 11.6 gm/dL (11.4-16.0); Lymphocytes # (A) 1.9 k/uL (1.0-4.8); Lymphocytes % (A) 41 %; MCH 30.8 pg (25.0-35.0); MCHC 33.5 g/dL (31.0-37.0); Mean Platelet Volume 7.1; Monocytes # (A) 0.3 k/uL (0-1.0); Monocytes % (A) 7 %; Neutrophils # (A) 2.1 k/uL (1.3-7.7); Neutrophils % (A) 45 %; Platelet Count 164 k/uL (150-450); RBC 3.77 m/uL (3.80-5.40); RDW 12.9 % (11.5-15.5); WBC 4.6 k/uL (3.8-10.6)
[2018-01-14] MEDS: SODIUM CHLORIDE 0.9% 1,000 ML IV SCH (07:37)
[2018-01-14 07:47] LABS: ALT 29 U/L (9-52); AST 18 U/L (14-36); Albumin 2.8 g/dL (3.5-5.0); Alkaline Phosphatase 34 U/L (38-126); Anion Gap 8 mmol/L; Blood Urea Nitrogen 9 mg/dL (7-17); Calcium 8.2 mg/dL (8.4-10.2); Carbon Dioxide 23 mmol/L (22-30); Chloride 109 mmol/L (98-107); Glucose 78 mg/dL (74-99); Potassium 3.9 mmol/L (3.5-5.1); Sodium 140 mmol/L (137-145); Total Bilirubin 0.6 mg/dL (0.2-1.3); Total Protein 5.2 g/dL (6.3-8.2)
[2018-01-14 07:50] VITALS: BP 105/74; PULSE 53; TEMP 98.3
[2018-01-14] MEDS: PANTOPRAZOLE 40 MG TABLET PO SCH (08:18)
--- NOTE | 2018-01-14 08:20 | US ---
EXAMINATION TYPE: US abdomen complete DATE OF EXAM: 01/14/2018 COMPARISON: Renal US 01/08/2018, CT 08/11/2017, Abdomen US 01/21/2017 CLINICAL HISTORY: abdominal pain. Patient had gastric sleeve done a couple years ago. Abdominal pain ever since. GB surgically absent EXAM MEASUREMENTS: Liver Length: 17.4 cm Gallbladder Wall: Surgically absent CBD: 0.3 cm Spleen: 10.0 cm Right Kidney: 10.6 x 4.2 x 5.1 cm Left Kidney: 10.5 x 5.4 x 4.8 cm Pancreas: Tail obscured by overlying bowel gas, visualized portions wnl Liver: Measuring upper limits of normal, heterogeneous. Portal vein appears prominent measuring 1.4 cm Gallbladder: Surgically absent Evidence for sonographic Lang's sign: No CBD: wnl Spleen: wnl Right Kidney: No hydronephrosis or masses seen Left Kidney: No hydronephrosis or masses seen Upper IVC: wnl Abd Aorta: wnl IMPRESSION: 1. Liver is heterogeneous is nonspecific and be seen with diffuse hepatocellular disease, fatty infil tration, or hepatitis. Portal vein is prominent in size correlate for portal hypertension. 2. Postcholecystectomy changes. 3. Limited assessment of the pancreas.
--- NOTE | 2018-01-14 09:15 | P.GSCN ---
<Helena Rajan - Last Filed: 01/14/18 09:07> History of Present Illness Consult date: 01/14/18 Reason for Consult: Abdominal pain History of present illness: 27-year-old female being seen at the request of the attending for a surgical eval for abdominal discomfort. Patient was a direct admission from her PCPs office Dr. Olivares. Patient stated that she presented to the office for eval having episodes of nausea with no emesis. Stated that she was having heartburn sensation. Patient stated that she had been seen in the past at [facility] in the gastroenterology service and did have an EGD but continues to have persistent esophageal reflux symptoms. Patient is also known to Dr. Richard service. Did undergo on September [address] Richard. White count on admission was 4.6. Patient was afebrile. Ultrasound of the abdomen post cholecystectomy changes AST and ALT were not elevated alk phos nonelevated Currently patient states abdominal discomfort esophageal reflux symptoms slightly improved. Patient is felt to be appropriate to be discharged from a surgical perspective Patient does have a history of having a gastric sleeve surgery done. Also reports having chronic intermittent episodes of nausea. Patient is being followed by [facility] gastroenterology service for the symptoms. Review of Systems Essentially unremarkable except as mentioned present illness Past Medical History Past Medical History: GERD/Reflux Additional Past Medical History / Comment(s): ABDOMINAL PAIN, CONSTIPATION/ DIARRHEA, Elevated liver enzymes for unknown reason 2016 History of Any Multi-Drug Resistant Organisms: None Reported Past Surgical History: Cholecystectomy, Orthopedic Surgery Additional Past Surgical History / Comment(s): LEFT FOOT SX, Right fallopian tube removed May 2015, SLEEVE GASTRECTOMY 2015, EGD W DILATION ALEN TONY , LAPROSCOPIC EXAM DR PRADO AUG 2017, Past Anesthesia/Blood Transfusion Reactions: Postoperative Nausea & Vomiting ( PONV) Past Psychological History: Panic Disorder Additional Psychological History / Comment(s): PASSED OUT AT WORK AND HAD PANIC ATTACK. one time issue per pt. no problems since Smoking Status: Never smoker Past Alcohol Use History: None Reported Past Drug Use History: None Reported - Past Family History Sister(s) Family Medical History: Cancer, Deep Vein Thrombosis (DVT) Additional Family Medical History / Comment(s): Cervical cancer Mother Family Medical History: Hyperlipidemia Additional Family Medical History / Comment(s): HEART PROBLEMS, IRREG RYTHM Father Family Medical History: Hyperlipidemia, Hypertension Additional Family Medical History / Comment(s): Paternal grandfather had kidney disorder and colon cancer. Medications and Allergies Home Medications Medication Instructions Recorded Confirmed Type Multivit/Folic Acid/Vit K1 1 tab PO DAILY 01/13/18 01/13/18 History [One-A-Day Women's 50 Plus Tab] RX: Omeprazole 40 mg PO BID 01/13/18 01/13/18 History Zolpidem Tartrate [Ambien Cr] 12.5 mg PO DAILY 01/13/18 01/13/18 History Ranitidine HCl [Zantac] 150 mg PO BID #60 tab 01/14/18 Rx Allergies Allergy/AdvReac Type Severity Reaction Status Date / Time amoxicillin [Amoxicillin] AdvReac Yeast Verified 01/13/18 12:57 Infection hydrocodone [From [place]] AdvReac Nausea & Verified 01/13/18 12:57 Vomiting Surgical - Exam Vital Signs Temp Pulse Resp BP Pulse Ox 98.3 F 73 16 132/81 98 01/13/18 12:05 01/13/18 12:05 01/13/18 12:05 01/13/18 12:05 01/13/18 12:05 GENERAL APPEARANCE: 27 -year-old female patient is alert, oriented, in no acute distress. VITAL SIGNS: Reviewed HEENT: Head is normocephalic and atraumatic. Pupils are equal and reactive. The nares are patent. Oropharynx is clear without lesions. NECK: Supple without lymphadenopathy. Traches midline. HEART: S1, S2. Regular rate and rhythm. Denying chest pain LUNGS: No crackles or wheezes are heard. No shortness of breath ABDOMEN: Soft, nontender, nondistended with good bowel sounds. No peritoneal signs. No palpable organomegaly or masses. EXTREMITIES: Normal skin color and turgor. No cyanosis, rash, ulceration, clubbing or edema. Radial pedal pulses are 2/4 bilaterally. NEUROLOGICAL: No focal deficits. Strength and sensation are grossly intact. Results - Labs 01/14/18 06:52 01/14/18 06:52 Abnormal Lab Results - Last 24 Hours (Table) 01/13/18 01/14/18 01/14/18 Range/Units 15:45 06:52 06:52 RBC 3.77 L (3.80-5.40) m/uL Chloride 109 H (98-107) mmol/L Calcium 8.2 L (8.4-10.2) mg/dL Alkaline Phosphatase 34 L (38-126) U/L Total Protein 5.8 L 5.2 L (6.3-8.2) g/dL Albumin 3.4 L 2.8 L (3.5-5.0) g/dL Diabetes panel 01/13/18 01/14/18 Range/Units 15:45 06:52 Sodium 139 140 (137-145) mmol/L Potassium 4.2 3.9 (3.5-5.1) mmol/L Chloride 106 109 H (98-107) mmol/L Carbon Dioxide 25 23 (22-30) mmol/L BUN 11 9 (7-17) mg/dL Creatinine 0.66 0.67 (0.52-1.04) mg/dL Glucose 84 78 (74-99) mg/dL Calcium 8.5 8.2 L (8.4-10.2) mg/dL AST 19 18 (14-36) U/L ALT 31 29 (9-52) U/L Alkaline Phosphatase 42 34 L (38-126) U/L Total Protein 5.8 L 5.2 L (6.3-8.2) g/dL Albumin 3.4 L 2.8 L (3.5-5.0) g/dL Calcium panel 01/13/18 01/14/18 Range/Units 15:45 06:52 Calcium 8.5 8.2 L (8.4-10.2) mg/dL Albumin 3.4 L 2.8 L (3.5-5.0) g/dL Pituitary panel 01/13/18 01/14/18 Range/Units 15:45 06:52 Sodium 139 140 (137-145) mmol/L Potassium 4.2 3.9 (3.5-5.1) mmol/L Chloride 106 109 H (98-107) mmol/L Carbon Dioxide 25 23 (22-30) mmol/L BUN 11 9 (7-17) mg/dL Creatinine 0.66 0.67 (0.52-1.04) mg/dL Glucose 84 78 (74-99) mg/dL Calcium 8.5 8.2 L (8.4-10.2) mg/dL Adrenal panel 01/13/18 01/14/18 Range/Units 15:45 06:52 Sodium 139 140 (137-145) mmol/L Potassium 4.2 3.9 (3.5-5.1) mmol/L Chloride 106 109 H (98-107) mmol/L Carbon Dioxide 25 23 (22-30) mmol/L BUN 11 9 (7-17) mg/dL Creatinine 0.66 0.67 (0.52-1.04) mg/dL Glucose 84 78 (74-99) mg/dL Calcium 8.5 8.2 L (8.4-10.2) mg/dL Total Bilirubin 0.5 0.6 (0.2-1.3) mg/dL AST 19 18 (14-36) U/L ALT 31 29 (9-52) U/L Alkaline Phosphatase 42 34 L (38-126) U/L Total Protein 5.8 L 5.2 L (6.3-8.2) g/dL Albumin 3.4 L 2.8 L (3.5-5.0) g/dL Assessment and Plan Assessment: Impression Chronic intermittent episodes of nausea History of a gastric sleeve done Chronic issues with abdominal pain with an extensive workup involving multiple CAT scans and x-rays all testing have been normal Endometriosis determined by a prior laparoscopically Plan No surgical intervention at this time no evidence of an acute surgical abdomen From a surgical perspective is felt to be appropriate to be discharged per to the timing to the attending Increase Zantac to 50 twice a day and continue protonix 40 twice a day Follow-up with Dr. Prado in the bariatric center as directed Continue clear liquid diet advance slowly as tolerated Surgical consultation note dictated for Dr. Prado The above impression and plan of care have been discussed and directed by signing physician. Helena Rajan nurse practitioner acting as scribe for signing physician. <Alexsandra Prado - Last Filed: 01/16/18 14:23> Surgical - Exam Vital Signs Temp Pulse Resp BP Pulse Ox 98.3 F 73 16 132/81 98 01/13/18 12:05 01/13/18 12:05 01/13/18 12:05 01/13/18 12:05 01/13/18 12:05 Results - Labs 01/14/18 06:52 01/14/18 06:52 Assessment and Plan Plan: Patient has history of chronic abdominal pain. Patient advised to follow up at the bariatric center. May add Zantac to help with severity of reflux.
--- NOTE | 2018-01-14 09:18 | HP ---
HISTORY AND PHYSICAL CHIEF COMPLAINT: A 27-year-old white female who was admitted with left upper quadrant abdominal pain for surgical evaluation, 8 out of 10, curled up into ball, unable ambulate she states. She says she was told she had a problem with a gastric sleeve done in [place] and wants it repaired. She is nauseated and vomiting with any intake. She was admitted for surgical observation at this time. Unable to keep any solids or liquids down. Abdominal ultrasound was ordered of the abdomen which came back essentially possibly some portal hypertension with no acute abdominal findings. REVIEW OF SYSTEMS: Fourteen point review of systems negative except for mentioned in HPI. PHYSICAL EXAM: Temp 98.3, pulse is 53 to 57, respiratory rate 16 to 18, blood pressure 109/69 and 100% on room air. CARDIOVASCULAR: S1, S2. LUNGS: Clear. ENDOCRINE: BMI is over 40. GI: Tender to palpation left upper quadrant. No guarding. No rebound tenderness. HEMATOLOGY: Negative Homans. PSYCH: Fair mood and affect. ASSESSMENT: Acute abdominal pain left upper quadrant, status post gastric sleeve with abdominal folding abnormality on recent test at [place]. Await surgical evaluation. Rehydrate the patient. cleared for discharge then I will have to send her home. MMODL / IJN: [id number] /
== END 2018-01-14 09:56 | disposition home or self-care (01) ==
LOC: 3OBS 11:17
PROVIDERS: ADMIT Family Medicine; ATTEND Family Medicine
DX: G89.29 Other chronic pain (principal); R10.12 Left upper quadrant pain; Z98.84 Bariatric surgery status; N80.9 Endometriosis, unspecified; K21.9 Gastro-esophageal reflux disease without esophagitis; F41.0 Panic disorder [episodic paroxysmal anxiety]; Z90.49 Acquired absence of other specified parts of digestive tract; Z80.49 Family history of malignant neoplasm of other genital organs; Z82.49 Family history of ischemic heart disease and other diseases of the circulatory system; Z80.0 Family history of malignant neoplasm of digestive organs; Z84.1 Family history of disorders of kidney and ureter; Z79.899 Other long term (current) drug therapy; Z88.5 Allergy status to narcotic agent; Z88.0 Allergy status to penicillin
CPT/HCPCS: 96374; 96375; 80053 ×2; 85025; 85027; 76700; G0378 ×2; G0379; J2405; J1885

== ENCOUNTER → 2018-01-22 | Outpatient (CLI) | payer BC ==
[2018-01-22 16:10] VITALS: BP 134/85; PULSE 70; RESP 16; TEMP 98.3; BMI 33.2
--- NOTE | 2018-01-22 16:27 | P.PN ---
Subjective Progress Note Date: 01/22/18 HPI: She has severe reflux and change in contour of her sleeve. She has been referred to many different bariatric centers for correction of her operation. Clinically, she has been placed on double dose Zantac and Omeprazole above therapuetic doses. Her gallbladder is removed. She complains STUDIES: UGI confirmed abnormality of sleeve contour with functional GERD not amenable to dilation. PLAN: 1. Recommend EGD for severe GERD. 2. Release of medical information from [facility] 3. Recommend corrective revisional surgery to anti-reflux operation of the gastric bypass. Objective - Vital Signs Vital signs: Vital Signs Temp 98.3 F 01/22/18 16:07 Pulse 70 01/22/18 16:07 Resp 16 01/22/18 16:07 BP 134/85 01/22/18 16:07 Pulse Ox Intake & Output 01/21/18 01/22/18 01/22/18 18:59 06:59 18:59 Weight 85.049 kg
== END | disposition home or self-care (01) ==
LOC: BARWHC3 15:30
PROVIDERS: ATTEND Surgery Plastic and Reconstructive Surgery
DX: K21.9 Gastro-esophageal reflux disease without esophagitis (principal); Z79.899 Other long term (current) drug therapy; Z90.49 Acquired absence of other specified parts of digestive tract
CPT/HCPCS: 99211

== ENCOUNTER → 2018-01-23 | Outpatient (CLI) | payer BC ==
[2018-01-23 15:51] LABS: Partial Thromboplastin Time 23.3 sec (22.0-30.0); Prothrombin Time 9.9 sec (9.0-12.0)
[2018-01-23 15:56] LABS: Phosphorus 3.6 mg/dL (2.5-4.5)
[2018-01-24 00:42] LABS: Parathyroid Hormone Intact 40.1 pg/mL (14.0-72.0)
[2018-01-24 01:16] LABS: Iron Saturation 30.62 (12.00-45.00)
[2018-01-24 12:13] LABS: Zinc, Serum 71 ug/dL (60-130)
== END | disposition home or self-care (01) ==
LOC: LABWHC1 15:12
PROVIDERS: ATTEND Surgery Plastic and Reconstructive Surgery
DX: E44.1 Mild protein-calorie malnutrition (principal); E66.01 Morbid (severe) obesity due to excess calories; D50.8 Other iron deficiency anemias; E55.9 Vitamin D deficiency, unspecified; K74.1 Hepatic sclerosis; N19 Unspecified kidney failure; K50.90 Crohn's disease, unspecified, without complications
CPT/HCPCS: 36415; 82306; 82525; 82607; 82728; 82746; 83540; 83550; 83970; 84100; 84134; 84255; 84425; 84443; 84590; 84630; 85610; 85730

== ENCOUNTER 2018-02-21 10:24 | Day surgery (SDC) | payer BC ==
[2018-02-18 15:33] VITALS: BMI 32.9
[2018-02-21 11:01] VITALS: RESP 18; TEMP 98
[2018-02-21] MEDS ORDERED: LIDOCAINE 1% 20 ML VIAL (10MG/ML) FOR IV START INTRADERMA ONE (11:06)
[2018-02-21] MEDS ORDERED: ONDANSETRON 4 MG/2 ML VIAL IVP ONE (11:09)
--- NOTE | 2018-02-21 11:09 | P.GSHP ---
History of Present Illness H&P Date: 02/21/18 CHIEF COMPLAINT: GERD HISTORY OF PRESENT ILLNESS: The patient is a 27-year-old female who presents reports gastroesophageal reflux disease. Upper endoscopy was offered for further evaluation and management. PAST MEDICAL HISTORY: Please see list. PAST SURGICAL HISTORY: Please see list. MEDICATIONS: Please see list. ALLERGIES: Please see list. SOCIAL HISTORY: No illicit drug use FAMILY HISTORY: No reports of Crohn disease or ulcerative colitis. REVIEW OF ORGAN SYSTEMS: CONSTITUTIONAL: No reports of fevers or chills. GI: Denies any blood in stools or constipation. PHYSICAL EXAM: VITAL SIGNS: Stable GENERAL: Well-developed and pleasant in no acute distress. HEENT: No scleral icterus. Extraocular movements grossly intact. Moist buccal mucosa. NECK: Supple without lymphadenopathy. CHEST: Unlabored respirations. Equal bilateral excursions. CARDIOVASCULAR: Regular rate and rhythm. Distal 2+ pulses. ABDOMEN: Soft, nondistended. MUSCULOSKELETAL: No clubbing, cyanosis, or edema. ASSESSMENT: 1. Gastroesophageal reflux disease PLAN: 1. Recommend proceeding with an upper endoscopy Past Medical History Past Medical History: GERD/Reflux Additional Past Medical History / Comment(s): ABDOMINAL PAIN, CONSTIPATION/ DIARRHEA, Elevated liver enzymes for unknown reason 2017 History of Any Multi-Drug Resistant Organisms: None Reported Past Surgical History: Cholecystectomy, Orthopedic Surgery Additional Past Surgical History / Comment(s): LEFT FOOT SX, Right fallopian tube removed; SLEEVE GASTRECTOMY; EGD W DILATION [place], LAPROSCOPIC EXAM Past Anesthesia/Blood Transfusion Reactions: Postoperative Nausea & Vomiting ( PONV) Smoking Status: Never smoker - Past Family History Sister(s) Family Medical History: Cancer, Deep Vein Thrombosis (DVT) Additional Family Medical History / Comment(s): Cervical cancer Mother Family Medical History: Hyperlipidemia Additional Family Medical History / Comment(s): HEART PROBLEMS, IRREG RYTHM Father Family Medical History: Hyperlipidemia, Hypertension Additional Family Medical History / Comment(s): Paternal grandfather had kidney disorder and colon cancer. Medications and Allergies Home Medications Medication Instructions Recorded Confirmed Type Omeprazole 40 mg PO BID 01/13/18 02/21/18 History Zolpidem Tartrate [Ambien Cr] 12.5 mg PO HS 01/13/18 02/21/18 History Ranitidine HCl [Zantac] 150 mg PO BID #60 tab 01/14/18 02/21/18 Rx Cholecalciferol (Vitamin D3) 10,000 unit PO DAILY 02/18/18 02/18/18 History [Vitamin D3] Multivitamins, Thera [Multivitamin 1 tab PO DAILY 02/18/18 02/18/18 History (formulary)] Allergies Allergy/AdvReac Type Severity Reaction Status Date / Time amoxicillin [Amoxicillin] AdvReac Yeast Verified 02/18/18 15:28 Infection hydrocodone [From [place]] AdvReac Nausea & Verified 02/18/18 15:28 Vomiting Surgical - Exam Vital Signs Temp Pulse Resp BP Pulse Ox 98.0 F 106 H 18 118/80 100 02/21/18 11:00 02/21/18 11:00 02/21/18 11:00 02/21/18 11:00 02/21/18 11:00
[2018-02-21] MEDS ORDERED: PROPOFOL 10 MG/ML 20 ML VIAL IV ONE (11:12)
[2018-02-21] MEDS ORDERED: MIDAZOLAM 2 MG/2 ML VIAL IVP ONE (12:22)
[2018-02-21 12:28] VITALS: BP 126/80; PULSE 79
--- NOTE | 2018-02-21 12:40 | P.PCN ---
Date of Procedure: 02/21/18 Description of Procedure: PREOPERATIVE DIAGNOSIS: Status post sleeve gastrectomy. Gastroesophageal reflux disease. Epigastric abdominal pain. POSTOPERATIVE DIAGNOSIS: Status post sleeve gastrectomy. Gastroesophageal reflux disease. Epigastric abdominal pain. OPERATION: Esophagogastroduodenoscopy SURGEON: Alexsandra Miranda MD ANESTHESIA: MAC. INDICATIONS: The patient is a 27-year-old female who presents with a history of sleeve gastrectomy with abdominal pain. She is 2 years out from her bariatric procedure. Benefits and risks of the procedure were described. Informed consent was obtained. DESCRIPTION: The patient was brought into the endoscopy suite and laid in the left lateral decubitus position. An Olympus gastroscope was passed along the posterior oropharynx down to the distal esophagus where the squamocolumnar junction was at 36 centimeters from the incisors and unremarkable. The stomach was entered where she had no evidence of a large hiatal hernia as the diaphragmatic hiatus found at 36 cm. The sleeve reservoir allowed easy retroflexion of the scope to view the angularis incisura. No acute gastritis was found. The first through third portion of the duodenum was examined and unremarkable. The scope again had easily retroflexed along the antrum. The stomach was desufflated. The patient tolerated the procedure well. FINDINGS: No acute ulceration found along her sleeve. No corkscrewing sleeve gastrectomy. Squamocolumnar junction at 36 cm from the incisors. Diaphragmatic hiatus at 36 cm. Moderate large gastric reservoir with prior history of sleeve gastrectomy allowing easy retroflexion of the gastroscope to view the angularis incisura No moderate stricture was identified along the angularis incisura. No LA grade A erosive esophagitis. No active duodenitis. No chronic gastritis. RECOMMENDATIONS: Upper endoscopy as needed. Patient may benefit from follow-[facility] at [facility]. Plan - Discharge Summary New Discharge Prescriptions: No Action Omeprazole 40 mg PO BID Zolpidem Tartrate [Ambien Cr] 12.5 mg PO HS Ranitidine HCl [Zantac] 150 mg PO BID #60 tab Multivitamins, Thera [Multivitamin (formulary)] 1 tab PO DAILY Cholecalciferol (Vitamin D3) [Vitamin D3] 10,000 unit PO DAILY Discharge Medication List Omeprazole 40 mg PO BID 01/13/18 [History] Zolpidem Tartrate [Ambien Cr] 12.5 mg PO HS 01/13/18 [History] Ranitidine HCl [Zantac] 150 mg PO BID #60 tab 01/14/18 [Rx] Cholecalciferol (Vitamin D3) [Vitamin D3] 10,000 unit PO DAILY 02/18/18 [History ] Multivitamins, Thera [Multivitamin (formulary)] 1 tab PO DAILY 02/18/18 [History ] Patient Instructions/Handouts: *Surgery [facility] - (Anesthesia) Endoscopy Discharge Instructions, Upper Endoscopy (GEN)
== END 2018-02-21 13:04 | disposition home or self-care (01) ==
LOC: ORWHC2ENDO 10:24
PROVIDERS: ATTEND Surgery Plastic and Reconstructive Surgery
DX: K21.9 Gastro-esophageal reflux disease without esophagitis (principal); Z98.84 Bariatric surgery status; Z90.3 Acquired absence of stomach [part of]; F39 Unspecified mood [affective] disorder; Z90.49 Acquired absence of other specified parts of digestive tract; Z79.899 Other long term (current) drug therapy; Z88.5 Allergy status to narcotic agent; Z88.0 Allergy status to penicillin
CPT/HCPCS: 81025; 43235; J2250; J2405; J2704

== ENCOUNTER 2018-06-07 02:40 | Emergency (ER) | payer BC ==
[2018-06-07 02:47] VITALS: TEMP 97.7
[2018-06-07] MEDS ORDERED: SODIUM CHLORIDE 0.9% 1,000 ML IV STA ×2 (02:52)
[2018-06-07] MEDS ORDERED: PANTOPRAZOLE 40 MG/10 ML VIAL IVP STA (02:52)
[2018-06-07] MEDS ORDERED: ONDANSETRON 4 MG/2 ML VIAL IVP STA (02:52)
[2018-06-07 03:36] LABS: Basophils % (A) 0 %; Eosinophils # (A) 0.2 k/uL (0-0.7); Eosinophils % (A) 2 %; HCT 37.6 % (34.0-46.0); HGB 12.7 gm/dL (11.4-16.0); Lymphocytes # (A) 1.7 k/uL (1.0-4.8); Lymphocytes % (A) 19 %; MCH 30.6 pg (25.0-35.0); MCHC 33.9 g/dL (31.0-37.0); MCV 90.4 fL (80.0-100.0); Monocytes # (A) 0.4 k/uL (0-1.0); Monocytes % (A) 5 %; Neutrophils # (A) 6.3 k/uL (1.3-7.7); Neutrophils % (A) 72 %; Platelet Count 220 k/uL (150-450); RBC 4.16 m/uL (3.80-5.40); RDW 12.7 % (11.5-15.5); WBC 8.8 k/uL (3.8-10.6)
[2018-06-07 03:39] LABS: Albumin 3.6 g/dL (3.5-5.0); Amylase 43 U/L (30-110); Anion Gap 4 mmol/L; Calcium 8.8 mg/dL (8.4-10.2); Carbon Dioxide 25 mmol/L (22-30); Chloride 109 mmol/L (98-107); Glucose 101 mg/dL (74-99); INR 1.1 (<1.2); Lipase 162 U/L (23-300); Partial Thromboplastin Time 23.1 sec (22.0-30.0); Prothrombin Time 10.3 sec (9.0-12.0); Sodium 138 mmol/L (137-145); Total Bilirubin 0.7 mg/dL (0.2-1.3); Total Protein 6.5 g/dL (6.3-8.2)
[2018-06-07 03:47] LABS: Blood Urea Nitrogen 21 mg/dL (7-17); Potassium 4.3 mmol/L (3.5-5.1)
[2018-06-07 03:48] LABS: ALT 25 U/L (9-52); AST 24 U/L (14-36); Alkaline Phosphatase 38 U/L (38-126)
[2018-06-07] MEDS ORDERED: MAG HYDROX/AL HYDROX/SIMETH 30 ML, HYOSCYAMINE ELIXIR 10 ML, CIMETIDINE HCL 300 MG, LID... PO STA ×4 (03:51)
[2018-06-07 04:18] LABS: Appearance,Urine Clear (Clear); Bilirubin,Urine Negative (Negative); Blood,Urine Large (Negative); Color,Urine Yellow; Glucose,Urine (UA) Negative (Negative); Ketones,Urine Negative (Negative); Leukocyte Esterase,Urine Small (Negative); Mucus,Urine Occasional /hpf; Nitrite,Urine Negative (Negative); Protein,Urine Trace (Negative); RBC,Urine >182 /hpf (0-5); Specific Gravity,Urine 1.026 (1.001-1.035); Squamous Epithelial Cell,Urine 1 /hpf (0-4); WBC,Urine 5 /hpf (0-5)
--- NOTE | 2018-06-07 04:27 | XR ---
EXAMINATION TYPE: XR KUB DATE OF EXAM: 06/07/2018 COMPARISON: 08/29/2017 HISTORY: Abdominal pain TECHNIQUE: 2 views upright FINDINGS: Bowel gas pattern is normal. There is no sign of intestinal obstruction or pneumoperitoneum . Fecal pattern is normal. There are clips from cholecystectomy. There are no pathologic calcificatio ns over the kidneys. Lung bases are clear. IMPRESSION: Nonacute abdomen. No change.
--- NOTE | 2018-06-07 04:28 | ED ---
Abdominal Pain HPI - General Source: patient, RN notes reviewed, old records reviewed Mode of arrival: ambulatory Limitations: no limitations <Tricia Viveros - Last Filed: 06/07/18 05:49> <Jeison Fowler - Last Filed: 06/07/18 06:12> - General Chief Complaint: Abdominal Pain Stated Complaint: Abd pain Time Seen by Provider: 06/07/18 02:51 - History of Present Illness Initial Comments: Patient is a 28-year-old female presents emergency department today she complained of epigastric abdominal pain. Instructions for the past 4 days. She also reports that she's had history of gastric bypass surgery. Since that time she's had severe acid reflux. She's been using Pepcid, Prilosec, and Reglan to help regulate this. Patient states that she did have a bowel movement 3 days ago. She states it seemed bloody dark at that time. Patient reports that she's had no further bowel movements since then. Patient reports that she's had no significant emesis. Patient denies any chest pain shortness breath. Patient's surgeon is Dr. Richard (Tricia Viveros) - Related Data Home Medications Medication Instructions Recorded Confirmed Omeprazole 40 mg PO BID 01/13/18 02/21/18 Zolpidem Tartrate [Ambien Cr] 12.5 mg PO HS 01/13/18 02/21/18 Cholecalciferol (Vitamin D3) 10,000 unit PO DAILY 02/18/18 02/18/18 [Vitamin D3] Multivitamins, Thera [Multivitamin 1 tab PO DAILY 02/18/18 02/18/18 (formulary)] Previous Rx's Medication Instructions Recorded Ranitidine HCl [Zantac] 150 mg PO BID #60 tab 01/14/18 HYDROcodone/APAP 5-325MG [[place] 1 tab PO Q6HR PRN 3 Days #10 tab 06/07/18 5-325] Allergies Allergy/AdvReac Type Severity Reaction Status Date / Time amoxicillin [Amoxicillin] AdvReac Yeast Verified 06/07/18 02:46 Infection hydrocodone [From [place]] AdvReac Nausea & Verified 06/07/18 02:46 Vomiting Review of Systems ROS Other: All systems not noted in ROS Statement are negative. <Tricia Viveros - Last Filed: 06/07/18 05:49> ROS Other: All systems not noted in ROS Statement are negative. <Jeison Fowler - Last Filed: 06/07/18 06:12> ROS Statement: Those systems with pertinent positive or pertinent negative responses have been documented in the HPI. Past Medical History Past Medical History: GERD/Reflux Additional Past Medical History / Comment(s): ABDOMINAL PAIN, CONSTIPATION/ DIARRHEA, Elevated liver enzymes for unknown reason 2017 History of Any Multi-Drug Resistant Organisms: None Reported Past Surgical History: Cholecystectomy, Orthopedic Surgery Additional Past Surgical History / Comment(s): LEFT FOOT SX, Right fallopian tube removed; SLEEVE GASTRECTOMY; EGD W DILATION WTIH BALLON, LAPROSCOPIC EXAM Past Anesthesia/Blood Transfusion Reactions: Postoperative Nausea & Vomiting ( PONV) Past Psychological History: Panic Disorder Smoking Status: Never smoker - Past Family History Sister(s) Family Medical History: Cancer, Deep Vein Thrombosis (DVT) Additional Family Medical History / Comment(s): Cervical cancer Mother Family Medical History: Hyperlipidemia Additional Family Medical History / Comment(s): HEART PROBLEMS, IRREG RYTHM Father Family Medical History: Hyperlipidemia, Hypertension Additional Family Medical History / Comment(s): Paternal grandfather had kidney disorder and colon cancer. <Tricia Viveros - Last Filed: 06/07/18 05:49> General Exam Limitations: no limitations General appearance: alert, in no apparent distress Head exam: Present: atraumatic, normocephalic, normal inspection Eye exam: Present: normal appearance, PERRL, EOMI. Absent: scleral icterus, conjunctival injection, periorbital swelling ENT exam: Present: normal exam, mucous membranes moist Neck exam: Present: normal inspection. Absent: tenderness, meningismus, lymphadenopathy Respiratory exam: Present: normal lung sounds bilaterally. Absent: respiratory distress, wheezes, rales, rhonchi, stridor Cardiovascular Exam: Present: regular rate, normal rhythm, normal heart sounds. Absent: systolic murmur, diastolic murmur, rubs, gallop, clicks GI/Abdominal exam: Present: soft, normal bowel sounds. Absent: distended, tenderness, guarding, rebound, rigid Extremities exam: Present: normal inspection, full ROM, normal capillary refill. Absent: tenderness, pedal edema, joint swelling, calf tenderness Back exam: Present: normal inspection Neurological exam: Present: alert, oriented X3, CN II-XII intact Psychiatric exam: Present: normal affect, normal mood Skin exam: Present: warm, dry, intact, normal color. Absent: rash <Tricia Viveros - Last Filed: 06/07/18 05:49> <Jeison Fowler - Last Filed: 06/07/18 06:12> - General Exam Comments Initial Comments: This is a 28-year-old female. Alert and oriented. Patient appears in no significant distress. (Tricia Viveros) Vital Signs 06/07/18 06/07/18 02:43 05:18 Temperature 97.7 F Pulse Rate 104 H 74 Respiratory 16 20 Rate Blood Pressure 149/97 126/89 O2 Sat by Pulse 100 99 Oximetry Medical Decision Making - Lab Data Result diagrams: 06/07/18 03:10 06/07/18 03:10 <Tricia Viveros - Last Filed: 06/07/18 05:49> - Lab Data Result diagrams: 06/07/18 03:10 06/07/18 03:10 <Jeison Fowler - Last Filed: 06/07/18 06:12> - Medical Decision Making 28-year-old female history gastric bypass surgery presents for energy with epigastric abdominal pain for 4 days as well as multiple episodes of vomiting. She's been using [id number] medications and prescribed Reglan to help regulate her GI tract. At this time Patient states that she has had multiple episodes vomiting. Given IV fluids, Rob nausea medication. She is given GI cocktail proceeded to vomit this up. I discussed concern for other etiologies considered for bowel obstruction and proceeded with computed tomography scan. Patient case transferred to Dr. Nunez at 5:[address] results. Patient's blood work was reviewed and normal. She is also on her menstrual cycle and can account for the hematuria. (Tricia Viveros) This is a 28-year-old female who presents emergency department for epigastric abdominal pain. The patient has a history of a gastric sleeve. Apparently the patient has had this pain multiple times in the past with unclear etiology. She 's had multiple EGDs in the past. Patient was given morphine with improvement in her symptoms. CTA did not show any acute abnormalities. Blood work was reviewed and unremarkable. The patient will be sent home. She has follow-up with her doctor the next 3 days. I told her that I would give her some [place] to get her through the next 3 days. Can return if she has worsening or changing symptoms. All questions were answered. (Jeison Fowler) - Lab Data Lab Results 06/07/18 06/07/18 06/07/18 Range/Units 03:10 03:10 03:10 WBC 8.8 (3.8-10.6) k/uL RBC 4.16 (3.80-5.40) m/uL Hgb 12.7 (11.4-16.0) gm/dL Hct 37.6 (34.0-46.0) % MCV 90.4 (80.0-100.0) fL MCH 30.6 (25.0-35.0) pg MCHC 33.9 (31.0-37.0) g/dL RDW 12.7 (11.5-15.5) % Plt Count 220 (150-450) k/uL Neutrophils % 72 % Lymphocytes % 19 % Monocytes % 5 % Eosinophils % 2 % Basophils % 0 % Neutrophils # 6.3 (1.3-7.7) k/uL Lymphocytes # 1.7 (1.0-4.8) k/uL Monocytes # 0.4 (0-1.0) k/uL Eosinophils # 0.2 (0-0.7) k/uL Basophils # 0.0 (0-0.2) k/uL PT 10.3 (9.0-12.0) sec INR 1.1 (<1.2) APTT 23.1 (22.0-30.0) sec Sodium 138 (137-145) mmol/L Potassium 4.3 (3.5-5.1) mmol/L Chloride 109 H (98-107) mmol/L Carbon Dioxide 25 (22-30) mmol/L Anion Gap 4 mmol/L BUN 21 H (7-17) mg/dL Creatinine 0.61 (0.52-1.04) mg/dL Est GFR (CKD-EPI)AfAm >90 (>60 ml/min/1.73 sqM) Est GFR (CKD-EPI)NonAf >90 (>60 ml/min/1.73 sqM) Glucose 101 H (74-99) mg/dL Calcium 8.8 (8.4-10.2) mg/dL Total Bilirubin 0.7 (0.2-1.3) mg/dL AST 24 (14-36) U/L ALT 25 (9-52) U/L Alkaline Phosphatase 38 (38-126) U/L Total Protein 6.5 (6.3-8.2) g/dL Albumin 3.6 (3.5-5.0) g/dL Amylase 43 (30-110) U/L Lipase 162 (23-300) U/L Urine Color Urine Appearance (Clear) Urine pH (5.0-8.0) Ur Specific [place] (1.001-1.035) Urine Protein (Negative) Urine Glucose (UA) (Negative) Urine Ketones (Negative) Urine Blood (Negative) Urine Nitrite (Negative) Urine Bilirubin (Negative) Urine Urobilinogen (<2.0) mg/dL Ur Leukocyte Esterase (Negative) Urine RBC (0-5) /hpf Urine WBC (0-5) /hpf Ur Squamous Epith Cells (0-4) /hpf Urine Mucus (None) /hpf 06/07/18 Range/Units 04:05 WBC (3.8-10.6) k/uL RBC (3.80-5.40) m/uL Hgb (11.4-16.0) gm/dL Hct (34.0-46.0) % MCV (80.0-100.0) fL MCH (25.0-35.0) pg MCHC (31.0-37.0) g/dL RDW (11.5-15.5) % Plt Count (150-450) k/uL Neutrophils % % Lymphocytes % % Monocytes % % Eosinophils % % Basophils % % Neutrophils # (1.3-7.7) k/uL Lymphocytes # (1.0-4.8) k/uL Monocytes # (0-1.0) k/uL Eosinophils # (0-0.7) k/uL Basophils # (0-0.2) k/uL PT (9.0-12.0) sec INR (<1.2) APTT (22.0-30.0) sec Sodium (137-145) mmol/L Potassium (3.5-5.1) mmol/L Chloride (98-107) mmol/L Carbon Dioxide (22-30) mmol/L Anion Gap mmol/L BUN (7-17) mg/dL Creatinine (0.52-1.04) mg/dL Est GFR (CKD-EPI)AfAm (>60 ml/min/1.73 sqM) Est GFR (CKD-EPI)NonAf (>60 ml/min/1.73 sqM) Glucose (74-99) mg/dL Calcium (8.4-10.2) mg/dL Total Bilirubin (0.2-1.3) mg/dL AST (14-36) U/L ALT (9-52) U/L Alkaline Phosphatase (38-126) U/L Total Protein (6.3-8.2) g/dL Albumin (3.5-5.0) g/dL Amylase (30-110) U/L Lipase (23-300) U/L Urine Color Yellow Urine Appearance Clear (Clear) Urine pH 6.0 (5.0-8.0) Ur Specific [place] 1.026 (1.001-1.035) Urine Protein Trace H (Negative) Urine Glucose (UA) Negative (Negative) Urine Ketones Negative (Negative) Urine Blood Large H (Negative) Urine Nitrite Negative (Negative) Urine Bilirubin Negative (Negative) Urine Urobilinogen 2.0 (<2.0) mg/dL Ur Leukocyte Esterase Small H (Negative) Urine RBC >182 H (0-5) /hpf Urine WBC 5 (0-5) /hpf Ur Squamous Epith Cells 1 (0-4) /hpf Urine Mucus Occasional H (None) /hpf Disposition <Tricia Viveros - Last Filed: 06/07/18 05:49> Is patient prescribed a controlled substance at d/c from ED?: Yes When asked, does pt state using other controlled substances?: No If prescribed controlled substance>3 days was MAPS reviewed?: Prescribed <3 Days If opioid is for acute pain is fill amount 7 days or less?: Yes If Rx opioid, was Start Talking consent form obtained?: Yes <Jeison Fowler - Last Filed: 06/07/18 06:12> Clinical Impression: Epigastric pain Disposition: HOME SELF-CARE Condition: Stable Instructions: Abdominal Pain (ED) Prescriptions: HYDROcodone/APAP 5-325MG [[place] 5-325] 1 tab PO Q6HR PRN 3 Days #10 tab PRN Reason: Pain Referrals: Mullally,Jacinto, MD [Primary Care Provider] - 1-2 days
[2018-06-07] MEDS ORDERED: IOPAMIDOL-300 CONTRAST 30 ML VIAL (ORAL USE) PO PRN (04:45)
[2018-06-07] MEDS ORDERED: MORPHINE SULFATE 4 MG/ML SYRINGE IVP STA (04:45)
--- NOTE | 2018-06-07 05:53 | CT ---
EXAM: CT Abdomen and Pelvis With Intravenous Contrast CLINICAL HISTORY: Epigastric pain, Bypass surgery TECHNIQUE: Axial computed tomography images of the abdomen and pelvis with intravenous contrast. CTDI is 20.7 mGy and DLP is no evidence for mGy-cm. This CT exam was performed using one or more of the following dose reduction techniques: automated exposure control, adjustment of the mA and/or kV according to patient size, and/or use of iterative reconstruction technique. Coronal and sagittal reconstructions are performed COMPARISON: 08/11/17 FINDINGS: Lung bases: Unremarkable. No mass. No consolidation. ABDOMEN: Liver: Unremarkable. No mass. Gallbladder and bile ducts: Cholecystectomy clips. No ductal dilation. Pancreas: Unremarkable. No mass. No ductal dilation. Spleen: Unremarkable. No splenomegaly. Adrenals: Unremarkable. No mass. Kidneys and ureters: 3 mm nonobstructing midpole left renal stone. Stomach and bowel: partial gastrectomy sutures. No obstruction. PELVIS: Appendix: Normal appendix. Bladder: Unremarkable. No mass. Reproductive: Unremarkable as visualized. ABDOMEN and PELVIS: Intraperitoneal space: Unremarkable. No free air. No significant fluid collection. Bones/joints: No acute fracture. No dislocation. Soft tissues: Midline abdominal and pelvic scar.. Vasculature: Unremarkable. No abdominal aortic aneurysm. Lymph nodes: Unremarkable. No enlarged lymph nodes. IMPRESSION: No acute findings or substantial change.
[2018-06-07 06:37] VITALS: BP 129/89; PULSE 78; RESP 18
== END 2018-06-07 06:37 | disposition home or self-care (01) ==
LOC: EC 02:40
DX: R10.13 Epigastric pain (principal); R11.10 Vomiting, unspecified; K21.9 Gastro-esophageal reflux disease without esophagitis; Z90.49 Acquired absence of other specified parts of digestive tract; Z98.84 Bariatric surgery status; Z79.899 Other long term (current) drug therapy; Z88.0 Allergy status to penicillin; Z88.5 Allergy status to narcotic agent
CPT/HCPCS: 36415; 80053; 82150; 83690; 85025; 85610; 85730; 81001; 74018; 74177; 99284; 96374; 96375 ×2; 96361 ×3; J2270; J2405; C9113; Q9967

== ENCOUNTER 2018-07-30 16:18 | Emergency (ER) | payer BC ==
[2018-07-30 16:38] VITALS: TEMP 98.7
[2018-07-30] MEDS ORDERED: ONDANSETRON 4 MG/2 ML VIAL IVP STA (17:03)
[2018-07-30] MEDS ORDERED: HYDROmorphone 1 MG/ML 1 ML SYRINGE IVP STA ×2 (17:03→18:53)
[2018-07-30 17:30] LABS: Basophils % (A) 0 %; Eosinophils # (A) 0.2 k/uL (0-0.7); Eosinophils % (A) 3 %; HCT 39.6 % (34.0-46.0); HGB 12.8 gm/dL (11.4-16.0); Lymphocytes # (A) 1.4 k/uL (1.0-4.8); Lymphocytes % (A) 21 %; MCH 29.7 pg (25.0-35.0); MCHC 32.4 g/dL (31.0-37.0); MCV 91.8 fL (80.0-100.0); Mean Platelet Volume 6.3; Monocytes # (A) 0.3 k/uL (0-1.0); Monocytes % (A) 4 %; Neutrophils # (A) 4.8 k/uL (1.3-7.7); Neutrophils % (A) 70 %; Platelet Count 287 k/uL (150-450); RBC 4.31 m/uL (3.80-5.40); RDW 12.6 % (11.5-15.5); WBC 6.8 k/uL (3.8-10.6)
[2018-07-30 17:45] LABS: ALT 55 U/L (9-52); AST 18 U/L (14-36); Albumin 4.2 g/dL (3.5-5.0); Alkaline Phosphatase 57 U/L (38-126); Anion Gap 8 mmol/L; Blood Urea Nitrogen 12 mg/dL (7-17); Calcium 9.7 mg/dL (8.4-10.2); Carbon Dioxide 26 mmol/L (22-30); Chloride 105 mmol/L (98-107); Glucose 92 mg/dL (74-99); Potassium 4.3 mmol/L (3.5-5.1); Sodium 139 mmol/L (137-145); Total Bilirubin 0.7 mg/dL (0.2-1.3); Total Protein 7.1 g/dL (6.3-8.2)
[2018-07-30 18:11] VITALS: BP 126/81; PULSE 83; RESP 18
--- NOTE | 2018-07-30 18:51 | ED ---
General Adult HPI - General Source: patient, RN notes reviewed Mode of arrival: wheelchair Limitations: no limitations <Carlos Levy - Last Filed: 07/30/18 19:42> <Aaron Vaca - Last Filed: 07/30/18 19:49> - General Chief complaint: Extremity Problem,Nontraumatic Stated complaint: Post Op puking, poss infection in foot. Time Seen by Provider: 07/30/18 16:35 - History of Present Illness Initial comments: This is a 28-year-old female comes in stating that she had surgery on her left foot [address] Arnett. Patient states she had the same surgery about a year ago and never had any other complications she is here for today. Patient states the pain on the medial aspect of her left foot is quite intense. He should also complains of nausea since Saturday. Patient states she never experienced this in the past. Patient states the pain radiates up to the top of the cast. Patient states she contacted Dr. Arnett and she has an appointment with Dr. Arnett tomorrow but he was unable to see her today. Patient denies any fever but states she feels hot sometimes patient denies any chills. Patient denies any difficulty breathing or shortness of breath. Patient does have normal sensation to the toes but she says occasionally they do tingle a little. (Carlos Levy) - Related Data Home Medications Medication Instructions Recorded Confirmed Zolpidem Tartrate [Ambien Cr] 12.5 mg PO HS 01/13/18 07/30/18 Cholecalciferol (Vitamin D3) 10,000 unit PO DAILY 02/18/18 07/30/18 [Vitamin D3] Multivitamins, Thera [Multivitamin 1 tab PO DAILY 02/18/18 07/30/18 (formulary)] Ibuprofen [Motrin] 800 mg PO TID PRN 07/30/18 07/30/18 Metoclopramide HCl [Reglan] 5 mg PO AC-TID 07/30/18 07/30/18 traMADol HCL [Ultram] 50 mg PO TID PRN 07/30/18 07/30/18 Previous Rx's Medication Instructions Recorded Ranitidine HCl [Zantac] 150 mg PO BID #60 tab 01/14/18 Allergies Allergy/AdvReac Type Severity Reaction Status Date / Time amoxicillin [Amoxicillin] AdvReac Yeast Verified 07/30/18 16:49 Infection hydrocodone [From [place]] AdvReac Nausea & Verified 07/30/18 16:49 Vomiting Review of Systems ROS Other: All systems not noted in ROS Statement are negative. <Carlos Levy - Last Filed: 07/30/18 19:42> ROS Other: All systems not noted in ROS Statement are negative. <Aaron Vaca - Last Filed: 07/30/18 19:49> ROS Statement: Those systems with pertinent positive or pertinent negative responses have been documented in the HPI. Past Medical History Past Medical History: GERD/Reflux Additional Past Medical History / Comment(s): ABDOMINAL PAIN, CONSTIPATION/ DIARRHEA, Elevated liver enzymes for unknown reason 2017 History of Any Multi-Drug Resistant Organisms: None Reported Past Surgical History: Cholecystectomy, Orthopedic Surgery Additional Past Surgical History / Comment(s): LEFT FOOT SX, Right fallopian tube removed; SLEEVE GASTRECTOMY; EGD W DILATION WTIH [place], LAPROSCOPIC EXAM Past Anesthesia/Blood Transfusion Reactions: Postoperative Nausea & Vomiting ( PONV) Past Psychological History: Panic Disorder Smoking Status: Never smoker Past Alcohol Use History: None Reported Past Drug Use History: None Reported - Past Family History Sister(s) Family Medical History: Cancer, Deep Vein Thrombosis (DVT) Additional Family Medical History / Comment(s): Cervical cancer Mother Family Medical History: Hyperlipidemia Additional Family Medical History / Comment(s): HEART PROBLEMS, IRREG RYTHM Father Family Medical History: Hyperlipidemia, Hypertension Additional Family Medical History / Comment(s): Paternal grandfather had kidney disorder and colon cancer. <Carlos Levy - Last Filed: 07/30/18 19:42> General Exam Limitations: no limitations <Carlos Levy - Last Filed: 07/30/18 19:42> <Aaron Vaca - Last Filed: 07/30/18 19:49> - General Exam Comments Initial Comments: GENERAL: Patient is well-developed and well-nourished. Patient is nontoxic and well- hydrated and is in moderate distress. ENT: Neck is soft and supple. No significant lymphadenopathy is noted. EYES: The sclera were anicteric and conjunctiva were pink and moist. Extraocular movements were intact and pupils were equal round and reactive to light. Eyelids were unremarkable. PULMONARY: Unlabored respirations. Good breath sounds bilaterally. No audible rales rhonchi or wheezing was noted. CARDIOVASCULAR: There is a regular rate and rhythm without any murmurs gallops or rubs. SKIN: Skin is clear with no lesions or rashes and otherwise unremarkable. NEUROLOGIC: Patient is alert and oriented x3. Cranial nerves II through XII are grossly intact. Motor and sensory are also intact. Normal speech, volume and content. Symmetrical smile. MUSCULOSKELETAL: Patient's left leg is in a cast there is no calf tenderness is no swelling that I can see and there is no redness beyond the cast. Patient has full sensation at her toes but states it does tingle occasionally. LYMPHATICS: No significant lymphadenopathy is noted PSYCHIATRIC: Normal psychiatric evaluation. (Carlos Levy) Vital Signs 07/30/18 07/30/18 16:35 18:10 Temperature 98.7 F Pulse Rate 99 83 Respiratory 16 18 Rate Blood Pressure 151/100 126/81 O2 Sat by Pulse 100 100 Oximetry Procedures <Carlos Levy - Last Filed: 07/30/18 19:42> <Aaron Vaca - Last Filed: 07/30/18 19:49> - Procedures Initial comment: Dressing and padding was placed around the incision site. A short leg posterior OCL splint was applied. Neurovascular was rechecked and intact. ( Aaron Vaca) Medical Decision Making - Lab Data Result diagrams: 07/30/18 17:10 07/30/18 17:10 <aCrlos Levy - Last Filed: 07/30/18 19:42> - Lab Data Result diagrams: 07/30/18 17:10 07/30/18 17:10 <Aaron Vaca - Last Filed: 07/30/18 19:49> - Medical Decision Making I called Dr. Arnett's answering service and I did not respond for 2 hours before finally a restaurant called back and was okay with me taking off the patient's cast and have the patient follow-up tomorrow. The physician media center assistant remove the cast replaced it with a splint the patient felt more comfortable she will be following up with Dr. Arnett tomorrow. (Carlos Levy) - Lab Data Lab Results 07/30/18 07/30/18 Range/Units 17:10 17:10 WBC 6.8 (3.8-10.6) k/uL RBC 4.31 (3.80-5.40) m/uL Hgb 12.8 (11.4-16.0) gm/dL Hct 39.6 (34.0-46.0) % MCV 91.8 (80.0-100.0) fL MCH 29.7 (25.0-35.0) pg MCHC 32.4 (31.0-37.0) g/dL RDW 12.6 (11.5-15.5) % Plt Count 287 (150-450) k/uL Neutrophils % 70 % Lymphocytes % 21 % Monocytes % 4 % Eosinophils % 3 % Basophils % 0 % Neutrophils # 4.8 (1.3-7.7) k/uL Lymphocytes # 1.4 (1.0-4.8) k/uL Monocytes # 0.3 (0-1.0) k/uL Eosinophils # 0.2 (0-0.7) k/uL Basophils # 0.0 (0-0.2) k/uL Sodium 139 (137-145) mmol/L Potassium 4.3 (3.5-5.1) mmol/L Chloride 105 (98-107) mmol/L Carbon Dioxide 26 (22-30) mmol/L Anion Gap 8 mmol/L BUN 12 (7-17) mg/dL Creatinine 0.65 (0.52-1.04) mg/dL Est GFR (CKD-EPI)AfAm >90 (>60 ml/min/1.73 sqM) Est GFR (CKD-EPI)NonAf >90 (>60 ml/min/1.73 sqM) Glucose 92 (74-99) mg/dL Calcium 9.7 (8.4-10.2) mg/dL Total Bilirubin 0.7 (0.2-1.3) mg/dL AST 18 (14-36) U/L ALT 55 H (9-52) U/L Alkaline Phosphatase 57 (38-126) U/L Total Protein 7.1 (6.3-8.2) g/dL Albumin 4.2 (3.5-5.0) g/dL Disposition Is patient prescribed a controlled substance at d/c from ED?: No <Carlos Levy - Last Filed: 07/30/18 19:42> <Aaron Vaca - Last Filed: 07/30/18 19:49> Clinical Impression: Status post foot surgery, Postoperative pain Disposition: HOME SELF-CARE Additional Instructions: Follow-up with Dr. Arnett tomorrow Referrals: Jacinto Olivares MD [Primary Care Provider] - 1-2 days
[2018-07-30] MEDS ORDERED: KETOROLAC 60 MG/2 ML VIAL IVP STA (18:53)
== END 2018-07-30 20:10 | disposition home or self-care (01) ==
LOC: EC 16:18
DX: M79.672 Pain in left foot (principal); G89.18 Other acute postprocedural pain; K21.9 Gastro-esophageal reflux disease without esophagitis; Z90.49 Acquired absence of other specified parts of digestive tract; Z98.890 Other specified postprocedural states; Z79.899 Other long term (current) drug therapy; Z88.0 Allergy status to penicillin; Z88.5 Allergy status to narcotic agent
CPT/HCPCS: 99283; 29515; 96374; 96375 ×2; 96376; 36415; 80053; 85025; 87040; J2405; J1885; J1170

== ENCOUNTER 2018-08-11 06:18 | Emergency (ER) | payer BC ==
[2018-08-11] MEDS ORDERED: SODIUM CHLORIDE 0.9% 1,000 ML IV STA (06:32)
[2018-08-11] MEDS ORDERED: ONDANSETRON 4 MG/2 ML VIAL IVP STA (06:32)
--- NOTE | 2018-08-11 06:33 | ED ---
Nausea/Vomiting/Diarrhea HPI - General Source: patient Mode of arrival: wheelchair Limitations: physical limitation <Theresa Real - Last Filed: 08/11/18 07:08> <Rudy Mendez - Last Filed: 08/11/18 09:57> - General Chief complaint: Nausea/Vomiting/Diarrhea Stated complaint: Vomiting Time Seen by Provider: 08/11/18 06:32 - History of Present Illness Initial comments: Caroline is a 28-year-old female who presents to the emergency department today for evaluation of not feeling well, 2 days of nausea and vomiting and feeling like she gets twitchy and her tongue has gone numb when she attempts to close her eyes. Patient reports that she has had some nausea and nonbloody nonbilious emesis for approximately 2 days. She reports generalized malaise and not feeling well. She reports that last night she took her Ambien and despite taking it she couldn't sleep throughout the night. Patient reports that she sat up in bed and any time she closed her eyes she felt like she got twitching in her extremities and she felt as though her tongue went numb. This made her very anxious. Patient does have when necessary Xanax to help her sleep when Ambien is not enough however she didn't take any. Patient reports that she was started on control earlier in the month, she states that she's had a headache for the past week she doesn't typically get headaches she is intermittently tried taking Tylenol with no improvement in her headache. She believes her nausea and vomiting may be related to the headache and that the headache is worsened by inability to sleep. (Theresa Real) - Related Data Home Medications Medication Instructions Recorded Confirmed Zolpidem Tartrate [Ambien Cr] 12.5 mg PO HS 01/13/18 08/11/18 Multivitamins, Thera [Multivitamin 1 tab PO DAILY 02/18/18 08/11/18 (formulary)] Ibuprofen [Motrin] 800 mg PO TID PRN 07/30/18 08/11/18 Metoclopramide HCl [Reglan] 5 mg PO AC-TID 07/30/18 08/11/18 traMADol HCL [Ultram] 50 mg PO TID PRN 07/30/18 08/11/18 ALPRAZolam [Xanax] 0.5 mg PO HS PRN 08/11/18 08/11/18 Previous Rx's Medication Instructions Recorded Ranitidine HCl [Zantac] 150 mg PO BID #60 tab 01/14/18 Allergies Allergy/AdvReac Type Severity Reaction Status Date / Time amoxicillin [Amoxicillin] AdvReac Yeast Verified 08/11/18 07:19 Infection hydrocodone [From [place]] AdvReac Nausea & Verified 08/11/18 07:19 Vomiting Review of Systems ROS Other: All systems not noted in ROS Statement are negative. <Theresa Real - Last Filed: 08/11/18 07:08> ROS Other: All systems not noted in ROS Statement are negative. <Rudy Mendez - Last Filed: 08/11/18 09:57> ROS Statement: Those systems with pertinent positive or pertinent negative responses have been documented in the HPI. Past Medical History Past Medical History: GERD/Reflux Additional Past Medical History / Comment(s): ABDOMINAL PAIN, CONSTIPATION/ DIARRHEA, Elevated liver enzymes for unknown reason 2017 History of Any Multi-Drug Resistant Organisms: None Reported Past Surgical History: Cholecystectomy, Orthopedic Surgery Additional Past Surgical History / Comment(s): LEFT FOOT SX, Right fallopian tube removed; SLEEVE GASTRECTOMY; EGD W DILATION WTIH [place], LAPROSCOPIC EXAM Past Anesthesia/Blood Transfusion Reactions: Postoperative Nausea & Vomiting ( PONV) Past Psychological History: Panic Disorder Smoking Status: Never smoker Past Alcohol Use History: None Reported Past Drug Use History: None Reported - Past Family History Sister(s) Family Medical History: Cancer, Deep Vein Thrombosis (DVT) Additional Family Medical History / Comment(s): Cervical cancer Mother Family Medical History: Hyperlipidemia Additional Family Medical History / Comment(s): HEART PROBLEMS, IRREG RYTHM Father Family Medical History: Hyperlipidemia, Hypertension Additional Family Medical History / Comment(s): Paternal grandfather had kidney disorder and colon cancer. <Theresa Real P - Last Filed: 08/11/18 07:08> General Exam Limitations: physical limitation <Theresa Real - Last Filed: 08/11/18 07:08> Vital Signs 08/11/18 08/11/18 08/11/18 06:25 07:00 07:30 Temperature 98.6 F Pulse Rate 100 85 86 Respiratory 18 18 17 Rate Blood Pressure 137/88 133/86 121/76 O2 Sat by Pulse 100 96 96 Oximetry 08/11/18 08:00 Temperature Pulse Rate 80 Respiratory 18 Rate Blood Pressure 123/83 O2 Sat by Pulse 100 Oximetry Medical Decision Making <Theresa Real - Last Filed: 08/11/18 07:08> - Lab Data Result diagrams: 08/11/18 06:46 08/11/18 06:46 <Rudy Mendez - Last Filed: 08/11/18 09:57> - Medical Decision Making The patient was seen and evaluated history was obtained from patient Patient recently started on oral contraceptive, having mild headache for approximately one week, nausea and vomiting for 2 days, feeling very tremulous and feels as though she's twitching when she closes her eyes Labs were ordered to evaluate electrolytes kidney function Medications for headache and IV fluid resuscitation were ordered Patient care is signed out to Dr. Mendez at shift change he will follow up on labs and reevaluation of patient (Theresa Real) Patient reevaluated by myself, Dr. Mendez. Patient is feeling mostly better. Patient states no nausea or vomiting at this time. Patient does complain of somewhat continued headache. Patient states headache is rated 4/10. Patient states headache was gradual onset starting 3-4 days ago and has progressively worsened. Patient does request medication for headache prior to discharge. Patient is updated on results. (Rudy Mendez) - Lab Data Lab Results 08/11/18 08/11/18 08/11/18 Range/Units 06:46 06:46 06:46 WBC 5.5 (3.8-10.6) k/uL RBC 4.32 (3.80-5.40) m/uL Hgb 13.3 (11.4-16.0) gm/dL Hct 39.1 (34.0-46.0) % MCV 90.6 (80.0-100.0) fL MCH 30.9 (25.0-35.0) pg MCHC 34.1 (31.0-37.0) g/dL RDW 13.3 (11.5-15.5) % Plt Count 283 (150-450) k/uL Neutrophils % 60 % Lymphocytes % 28 % Monocytes % 5 % Eosinophils % 3 % Basophils % 0 % Neutrophils # 3.3 (1.3-7.7) k/uL Lymphocytes # 1.5 (1.0-4.8) k/uL Monocytes # 0.3 (0-1.0) k/uL Eosinophils # 0.2 (0-0.7) k/uL Basophils # 0.0 (0-0.2) k/uL Sodium 140 (137-145) mmol/L Potassium 4.5 (3.5-5.1) mmol/L Chloride 107 (98-107) mmol/L Carbon Dioxide 26 (22-30) mmol/L Anion Gap 7 mmol/L BUN 14 (7-17) mg/dL Creatinine 0.74 (0.52-1.04) mg/dL Est GFR (CKD-EPI)AfAm >90 (>60 ml/min/1.73 sqM) Est GFR (CKD-EPI)NonAf >90 (>60 ml/min/1.73 sqM) Glucose 84 (74-99) mg/dL Calcium 9.2 (8.4-10.2) mg/dL Magnesium 1.8 (1.6-2.3) mg/dL Total Bilirubin 0.6 (0.2-1.3) mg/dL AST 26 (14-36) U/L ALT 41 (9-52) U/L Alkaline Phosphatase 43 (38-126) U/L Total Protein 6.7 (6.3-8.2) g/dL Albumin 3.9 (3.5-5.0) g/dL Amylase 59 (30-110) U/L Lipase 116 (23-300) U/L Urine Color Urine Appearance (Clear) Urine pH (5.0-8.0) Ur Specific [place] (1.001-1.035) Urine Protein (Negative) Urine Glucose (UA) (Negative) Urine Ketones (Negative) Urine Blood (Negative) Urine Nitrite (Negative) Urine Bilirubin (Negative) Urine Urobilinogen (<2.0) mg/dL Ur Leukocyte Esterase (Negative) Urine WBC (0-5) /hpf Ur Squamous Epith Cells (0-4) /hpf Urine Bacteria (None) /hpf Urine Mucus (None) /hpf Urine HCG, Qual Not Detected (Not Detectd) 08/11/18 Range/Units 06:46 WBC (3.8-10.6) k/uL RBC (3.80-5.40) m/uL Hgb (11.4-16.0) gm/dL Hct (34.0-46.0) % MCV (80.0-100.0) fL MCH (25.0-35.0) pg MCHC (31.0-37.0) g/dL RDW (11.5-15.5) % Plt Count (150-450) k/uL Neutrophils % % Lymphocytes % % Monocytes % % Eosinophils % % Basophils % % Neutrophils # (1.3-7.7) k/uL Lymphocytes # (1.0-4.8) k/uL Monocytes # (0-1.0) k/uL Eosinophils # (0-0.7) k/uL Basophils # (0-0.2) k/uL Sodium (137-145) mmol/L Potassium (3.5-5.1) mmol/L Chloride (98-107) mmol/L Carbon Dioxide (22-30) mmol/L Anion Gap mmol/L BUN (7-17) mg/dL Creatinine (0.52-1.04) mg/dL Est GFR (CKD-EPI)AfAm (>60 ml/min/1.73 sqM) Est GFR (CKD-EPI)NonAf (>60 ml/min/1.73 sqM) Glucose (74-99) mg/dL Calcium (8.4-10.2) mg/dL Magnesium (1.6-2.3) mg/dL Total Bilirubin (0.2-1.3) mg/dL AST (14-36) U/L ALT (9-52) U/L Alkaline Phosphatase (38-126) U/L Total Protein (6.3-8.2) g/dL Albumin (3.5-5.0) g/dL Amylase (30-110) U/L Lipase (23-300) U/L Urine Color Light Yellow Urine Appearance Cloudy H (Clear) Urine pH 6.5 (5.0-8.0) Ur Specific [place] 1.012 (1.001-1.035) Urine Protein Negative (Negative) Urine Glucose (UA) Negative (Negative) Urine Ketones Negative (Negative) Urine Blood Negative (Negative) Urine Nitrite Negative (Negative) Urine Bilirubin Negative (Negative) Urine Urobilinogen <2.0 (<2.0) mg/dL Ur Leukocyte Esterase Negative (Negative) Urine WBC 2 (0-5) /hpf Ur Squamous Epith Cells 4 (0-4) /hpf Urine Bacteria Rare H (None) /hpf Urine Mucus Rare H (None) /hpf Urine HCG, Qual (Not Detectd) Disposition <Theresa Real - Last Filed: 08/11/18 07:08> Is patient prescribed a controlled substance at d/c from ED?: No Time of Disposition: 09:57 <Rudy Mendez - Last Filed: 08/11/18 09:57> Clinical Impression: Vomiting, Headache Disposition: HOME SELF-CARE Condition: Stable Instructions (If sedation given, give patient instructions): Acute Nausea and Vomiting (ED) Additional Instructions: Please follow-up with primary care physician in the next day or 2 for recheck. Return for not tolerating fluids, fevers, increased pain, change or worsening symptoms or other concerns. Referrals: Jacinto Olivares MD [Primary Care Provider] - 1-2 days
[2018-08-11] MEDS ORDERED: diphenhydrAMINE 50 MG/ML 1 ML VIAL IVP STA (06:57)
[2018-08-11] MEDS ORDERED: METOCLOPRAMIDE 5 MG/ML 2 ML VIAL IVP STA (06:57)
[2018-08-11 07:12] LABS: Basophils % (A) 0 %; Eosinophils # (A) 0.2 k/uL (0-0.7); Eosinophils % (A) 3 %; HCT 39.1 % (34.0-46.0); HGB 13.3 gm/dL (11.4-16.0); Lymphocytes # (A) 1.5 k/uL (1.0-4.8); Lymphocytes % (A) 28 %; MCH 30.9 pg (25.0-35.0); MCHC 34.1 g/dL (31.0-37.0); MCV 90.6 fL (80.0-100.0); Mean Platelet Volume 6.5; Monocytes # (A) 0.3 k/uL (0-1.0); Monocytes % (A) 5 %; Neutrophils # (A) 3.3 k/uL (1.3-7.7); Neutrophils % (A) 60 %; Platelet Count 283 k/uL (150-450); RBC 4.32 m/uL (3.80-5.40); RDW 13.3 % (11.5-15.5); WBC 5.5 k/uL (3.8-10.6)
[2018-08-11 07:19] LABS: Appearance,Urine Cloudy (Clear); Bacteria,Urine Rare /hpf; Bilirubin,Urine Negative (Negative); Blood,Urine Negative (Negative); Color,Urine Light Yellow; Glucose,Urine (UA) Negative (Negative); Ketones,Urine Negative (Negative); Leukocyte Esterase,Urine Negative (Negative); Mucus,Urine Rare /hpf; Nitrite,Urine Negative (Negative); PH, Urine 6.5 (5.0-8.0); Protein,Urine Negative (Negative); Specific Gravity,Urine 1.012 (1.001-1.035); Squamous Epithelial Cell,Urine 4 /hpf (0-4); Urobilinogen,Urine <2.0 mg/dL (<2.0); WBC,Urine 2 /hpf (0-5)
[2018-08-11 07:28] LABS: ALT 41 U/L (9-52); AST 26 U/L (14-36); Albumin 3.9 g/dL (3.5-5.0); Alkaline Phosphatase 43 U/L (38-126); Amylase 59 U/L (30-110); Anion Gap 7 mmol/L; Blood Urea Nitrogen 14 mg/dL (7-17); Calcium 9.2 mg/dL (8.4-10.2); Carbon Dioxide 26 mmol/L (22-30); Chloride 107 mmol/L (98-107); Glucose 84 mg/dL (74-99); Lipase 116 U/L (23-300); Magnesium 1.8 mg/dL (1.6-2.3); Potassium 4.5 mmol/L (3.5-5.1); Sodium 140 mmol/L (137-145); Total Bilirubin 0.6 mg/dL (0.2-1.3); Total Protein 6.7 g/dL (6.3-8.2)
[2018-08-11] MEDS ORDERED: LORazepam 2 MG/ML INJ IV STA (08:33)
[2018-08-11] MEDS ORDERED: MORPHINE SULFATE 2 MG/ML SYRINGE IVP STA (09:57)
[2018-08-11 10:21] VITALS: BP 122/77; PULSE 90; RESP 16; TEMP 99.1
[2018-08-11] MEDS ORDERED: ONDANSETRON ODT 4 MG TAB PO STA (10:23)
[2018-08-11] MEDS ORDERED: MORPHINE SULFATE 4 MG/ML SYRINGE IVP STA (10:25)
--- NOTE | 2018-08-12 05:14 | CDI ---
Documentation Clarification OP Dear Dr. Andrea Grant Please do addendum to ED report for missing Physical examination. Thank you, Adria Valdivia Director Digital Communications If you have any questions, please contact Wireless Sales Expert at [phone] Real. [facility] HOSPITALBeatriz
== END 2018-08-11 10:35 | disposition home or self-care (01) ==
LOC: EC 06:18
DX: R11.2 Nausea with vomiting, unspecified (principal); R51 Headache; R19.7 Diarrhea, unspecified; R53.81 Other malaise; Z53.8 Procedure and treatment not carried out for other reasons; Z90.49 Acquired absence of other specified parts of digestive tract; Z98.84 Bariatric surgery status; Z90.79 Acquired absence of other genital organ(s); Z79.3 Long term (current) use of hormonal contraceptives; Z79.899 Other long term (current) drug therapy; Z88.0 Allergy status to penicillin; Z88.5 Allergy status to narcotic agent
CPT/HCPCS: 99284; 96374; 96375 ×3; 96361; 36415; 80053; 82150; 83690; 83735; 85025; 81001; 81025; J2060; J2270; J1200; J2765

== ENCOUNTER → 2018-08-25 | Outpatient (CLI) | payer BC ==
--- NOTE | 2018-08-25 10:56 | US ---
EXAMINATION TYPE: US pelvic complete DATE OF EXAM: 08/25/2018 COMPARISON: CT 2018 CLINICAL HISTORY: N83.201 Right ovarian cyst seen on US done elsewhere. TECHNIQUE: . Transabdominal sonographic images of the pelvis were acquired. Date of LMP: 08/13/2018 EXAM MEASUREMENTS: Uterus: 7.5 x 5.0 x 3.6 cm Endometrial Stripe: 0.4 cm Right Ovary: 2.8 x 2.1 x 2.0 cm Left Ovary: 2.0 x 1.9 x 1.5 cm 1. Uterus: Anteverted wnl 2. Endometrium: wnl 3. Right Ovary: small, 0.8 cm follicle seen. 4. Left Ovary: 2 small (1.2 & 1.1 cm) follicles seen. 5. Bilateral Adnexa: wnl 6. Posterior cul-de-sac: wnl IMPRESSION: 1. Two small left ovarian cysts. 2. Follicles on the right ovary.
== END | disposition home or self-care (01) ==
LOC: RADUSWWP 10:13
PROVIDERS: ATTEND Obstetrics & Gynecology
DX: N83.202 Unspecified ovarian cyst, left side (principal)
CPT/HCPCS: 76856

== ENCOUNTER 2018-09-01 14:06 | Inpatient (IN) | payer BC ==
[2018-09-01] MEDS ORDERED: SODIUM CHLORIDE 0.9% 1,000 ML IV STA ×2 (14:20)
[2018-09-01] MEDS ORDERED: SODIUM CHLORIDE 0.9% 500 ML 500 ML IV STA (14:20)
--- NOTE | 2018-09-01 14:21 | ED ---
Arrhythmia/Palpitations HPI - General Chief Complaint: Arrhythmia/Palpitations Stated Complaint: SEIZURE Time Seen by Provider: 09/01/18 14:19 Source: patient, EMS, RN notes reviewed, old records reviewed Mode of arrival: ambulatory Limitations: no limitations - History of Present Illness Initial Comments: This is an 28-year-old female the ER for evaluation of multiple complaints of mainly complaining of shaking and inability to catch her breath from or shakes. She states she does get this symptoms often. Patient is brought in for evaluation by . Patient does again have similar symptoms of this in the past is just worse today. Patient has history of gastric bypass. No other significant medications are new. No change in medications denies drug or alcohol patient complaining of elevated heart rate possible SVT. MD Complaint: rapid heart beat, "heart racing", "skipped beats" -: hour(s) Context: occurred during rest Arrhythmia History: other (prior history) Associated Symptoms: near-syncope, anxiety, muscle cramps Treatments Prior to Arrival: adenosine - Related Data Home Medications Medication Instructions Recorded Confirmed Zolpidem Tartrate [Ambien Cr] 12.5 mg PO HS 01/13/18 09/01/18 Multivitamins, Thera [Multivitamin 1 tab PO DAILY 02/18/18 09/01/18 (formulary)] Ibuprofen [Motrin] 800 mg PO TID PRN 07/30/18 09/01/18 Metoclopramide HCl [Reglan] 5 mg PO AC-TID 07/30/18 09/01/18 traMADol HCL [Ultram] 50 mg PO TID PRN 07/30/18 09/01/18 ALPRAZolam [Xanax] 0.5 mg PO HS PRN 08/11/18 09/01/18 [place] 28 1 tab PO DAILY 09/01/18 09/01/18 Previous Rx's Medication Instructions Recorded Ranitidine HCl [Zantac] 150 mg PO BID #60 tab 01/14/18 Allergies Allergy/AdvReac Type Severity Reaction Status Date / Time amoxicillin [Amoxicillin] AdvReac Yeast Verified 09/01/18 14:51 Infection hydrocodone [From [place]] AdvReac Nausea & Verified 09/01/18 14:51 Vomiting Review of Systems ROS Statement: Those systems with pertinent positive or pertinent negative responses have been documented in the HPI. ROS Other: All systems not noted in ROS Statement are negative. Past Medical History Past Medical History: GERD/Reflux Additional Past Medical History / Comment(s): ABDOMINAL PAIN, CONSTIPATION/ DIARRHEA, Elevated liver enzymes for unknown reason 2017 History of Any Multi-Drug Resistant Organisms: None Reported Past Surgical History: Cholecystectomy, Orthopedic Surgery Additional Past Surgical History / Comment(s): LEFT FOOT SX, Right fallopian tube removed; SLEEVE GASTRECTOMY; EGD W DILATION WTIH [place], LAPROSCOPIC EXAM Past Anesthesia/Blood Transfusion Reactions: Postoperative Nausea & Vomiting ( PONV) Past Psychological History: Panic Disorder Smoking Status: Never smoker Past Alcohol Use History: None Reported Past Drug Use History: None Reported - Past Family History Sister(s) Family Medical History: Cancer, Deep Vein Thrombosis (DVT) Additional Family Medical History / Comment(s): Cervical cancer Mother Family Medical History: Hyperlipidemia Additional Family Medical History / Comment(s): HEART PROBLEMS, IRREG RYTHM Father Family Medical History: Hyperlipidemia, Hypertension Additional Family Medical History / Comment(s): Paternal grandfather had kidney disorder and colon cancer. General Exam - General Exam Comments Initial Comments: Patient actively twitching on exam both face and upper extremities Limitations: no limitations General appearance: alert, in no apparent distress Head exam: Present: atraumatic, normocephalic, normal inspection Eye exam: Present: normal appearance, PERRL, EOMI. Absent: scleral icterus, conjunctival injection, periorbital swelling ENT exam: Present: normal exam, mucous membranes moist Neck exam: Present: normal inspection. Absent: tenderness, meningismus, lymphadenopathy Respiratory exam: Present: normal lung sounds bilaterally. Absent: respiratory distress, wheezes, rales, rhonchi, stridor Cardiovascular Exam: Present: normal rhythm, tachycardia, normal heart sounds. Absent: systolic murmur, diastolic murmur, rubs, gallop, clicks GI/Abdominal exam: Present: soft, normal bowel sounds. Absent: distended, tenderness, guarding, rebound, rigid Extremities exam: Present: normal inspection, full ROM, normal capillary refill. Absent: tenderness, pedal edema, joint swelling, calf tenderness Back exam: Present: normal inspection Neurological exam: Present: alert, oriented X3, CN II-XII intact Psychiatric exam: Present: normal affect, normal mood Skin exam: Present: warm, dry, intact, normal color. Absent: rash Course Vital Signs 09/01/18 09/01/18 09/01/18 14:09 14:15 14:30 Temperature 97.8 F Pulse Rate 129 H 126 H 123 H Respiratory 42 H 25 H Rate Blood Pressure 133/85 133/85 135/85 O2 Sat by Pulse 100 100 100 Oximetry 09/01/18 09/01/18 09/01/18 14:45 15:00 15:15 Temperature Pulse Rate 100 96 86 Respiratory 25 H 24 23 Rate Blood Pressure 134/86 129/80 125/82 O2 Sat by Pulse 100 100 100 Oximetry 09/01/18 09/01/18 09/01/18 15:30 15:45 16:00 Temperature Pulse Rate 97 147 H Respiratory 25 H 30 H Rate Blood Pressure 121/87 125/79 130/69 O2 Sat by Pulse 100 94 L Oximetry 09/01/18 09/01/18 09/01/18 16:15 16:30 16:45 Temperature Pulse Rate 126 H 115 H Respiratory Rate Blood Pressure 117/60 114/62 116/71 O2 Sat by Pulse 100 Oximetry 09/01/18 09/01/18 09/01/18 17:00 17:15 17:30 Temperature Pulse Rate 106 H 100 101 H Respiratory 18 18 Rate Blood Pressure 118/79 123/86 123/86 O2 Sat by Pulse 100 100 100 Oximetry 09/01/18 09/01/18 09/01/18 17:45 18:00 18:15 Temperature Pulse Rate 96 101 H 93 Respiratory 18 17 14 Rate Blood Pressure 121/85 119/82 116/81 O2 Sat by Pulse 86 L 100 Oximetry 09/01/18 09/01/18 09/01/18 18:30 18:45 19:00 Temperature Pulse Rate 87 90 97 Respiratory 15 16 16 Rate Blood Pressure 115/72 116/75 114/78 O2 Sat by Pulse Oximetry 09/01/18 09/01/18 09/01/18 19:15 19:30 20:00 Temperature Pulse Rate 89 90 93 Respiratory 18 18 15 Rate Blood Pressure 112/78 109/63 109/63 O2 Sat by Pulse 100 99 100 Oximetry 09/01/18 09/01/18 20:30 21:00 Temperature Pulse Rate 90 80 Respiratory 10 L 16 Rate Blood Pressure 107/71 112/69 O2 Sat by Pulse 98 99 Oximetry - Reevaluation(s) Reevaluation #1: 09/01/18 16:37 Medical record is reviewed Reevaluation #2: 09/01/18 16:37 Patient initially seen with SVT. EMS did give 6 of adenosine and 12 adenosine with no improvement. Upon arrival to emergency room patient is tachycardic in the 160s on rhythm strip and EKG she is showing sinus tachycardia down in the 110s 120s Reevaluation #3: 09/01/18 16:38 Patient went to the bathroom in the bathroom she had seizure-like activity with loss of consciousness. Patient is improving from postictal state seizure did cease by itself EKG Findings - EKG Comments: EKG Findings:: EKG shows sinus tachycardia rate of 127, AL 142, QRS 80, QTC 467 Medical Decision Making - Medical Decision Making 28-year-old female the ER with SVT, sinus tachycardia and tachycardia, will symptoms are improving with hydration, patient is multiple electrode abnormalities which are being replaced. Patient also has twitching which exacerbated into seizure activity, patient started on antiepileptics - Lab Data Result diagrams: 09/04/18 05:35 09/04/18 05:35 Lab Results 09/01/18 09/01/18 09/01/18 Range/Units 14:23 14:23 14:23 WBC 4.5 (3.8-10.6) k/uL RBC 3.91 (3.80-5.40) m/uL Hgb 12.0 (11.4-16.0) gm/dL Hct 36.0 (34.0-46.0) % MCV 92.0 (80.0-100.0) fL MCH 30.7 (25.0-35.0) pg MCHC 33.3 (31.0-37.0) g/dL RDW 12.9 (11.5-15.5) % Plt Count 199 (150-450) k/uL Neutrophils % 60 % Lymphocytes % 27 % Monocytes % 5 % Eosinophils % 5 % Basophils % 0 % Neutrophils # 2.7 (1.3-7.7) k/uL Lymphocytes # 1.2 (1.0-4.8) k/uL Monocytes # 0.2 (0-1.0) k/uL Eosinophils # 0.2 (0-0.7) k/uL Basophils # 0.0 (0-0.2) k/uL PT (9.0-12.0) sec INR (<1.2) APTT (22.0-30.0) sec D-Dimer (<0.60) mg/L FEU Sodium 139 (137-145) mmol/L Potassium 3.8 (3.5-5.1) mmol/L Chloride 110 H (98-107) mmol/L Carbon Dioxide 24 (22-30) mmol/L Anion Gap 5 mmol/L BUN 17 (7-17) mg/dL Creatinine 0.68 (0.52-1.04) mg/dL Est GFR (CKD-EPI)AfAm >90 (>60 ml/min/1.73 sqM) Est GFR (CKD-EPI)NonAf >90 (>60 ml/min/1.73 sqM) Glucose 97 (74-99) mg/dL Calcium 8.9 (8.4-10.2) mg/dL Phosphorus 1.3 L (2.5-4.5) mg/dL Magnesium 1.4 L (1.6-2.3) mg/dL Total Bilirubin 0.5 (0.2-1.3) mg/dL AST 18 (14-36) U/L ALT 30 (9-52) U/L Alkaline Phosphatase 44 (38-126) U/L Total Creatine Kinase 52 (30-135) U/L CK-MB (CK-2) <0.2 (0.0-2.4) ng/mL CK-MB (CK-2) Rel Index Troponin I <0.012 (0.000-0.034) ng/mL NT-Pro-B Natriuret Pep pg/mL Total Protein 5.9 L (6.3-8.2) g/dL Albumin 3.4 L (3.5-5.0) g/dL TSH 2.660 (0.465-4.680) mIU/L 09/01/18 09/01/18 Range/Units 14:23 14:23 WBC (3.8-10.6) k/uL RBC (3.80-5.40) m/uL Hgb (11.4-16.0) gm/dL Hct (34.0-46.0) % MCV (80.0-100.0) fL MCH (25.0-35.0) pg MCHC (31.0-37.0) g/dL RDW (11.5-15.5) % Plt Count (150-450) k/uL Neutrophils % % Lymphocytes % % Monocytes % % Eosinophils % % Basophils % % Neutrophils # (1.3-7.7) k/uL Lymphocytes # (1.0-4.8) k/uL Monocytes # (0-1.0) k/uL Eosinophils # (0-0.7) k/uL Basophils # (0-0.2) k/uL PT 10.2 (9.0-12.0) sec INR 0.9 (<1.2) APTT 22.4 (22.0-30.0) sec D-Dimer 0.35 (<0.60) mg/L FEU Sodium (137-145) mmol/L Potassium (3.5-5.1) mmol/L Chloride (98-107) mmol/L Carbon Dioxide (22-30) mmol/L Anion Gap mmol/L BUN (7-17) mg/dL Creatinine (0.52-1.04) mg/dL Est GFR (CKD-EPI)AfAm (>60 ml/min/1.73 sqM) Est GFR (CKD-EPI)NonAf (>60 ml/min/1.73 sqM) Glucose (74-99) mg/dL Calcium (8.4-10.2) mg/dL Phosphorus (2.5-4.5) mg/dL Magnesium (1.6-2.3) mg/dL Total Bilirubin (0.2-1.3) mg/dL AST (14-36) U/L ALT (9-52) U/L Alkaline Phosphatase (38-126) U/L Total Creatine Kinase (30-135) U/L CK-MB (CK-2) (0.0-2.4) ng/mL CK-MB (CK-2) Rel Index Troponin I (0.000-0.034) ng/mL NT-Pro-B Natriuret Pep 33 pg/mL Total Protein (6.3-8.2) g/dL Albumin (3.5-5.0) g/dL TSH (0.465-4.680) mIU/L - Radiology Data Radiology results: report reviewed (CT brain is negative for acute disease), image reviewed Critical Care Time Critical Care Time: Yes Total Critical Care Time: 65 Disposition Clinical Impression: Tachycardia, Supraventricular tachycardia, Palpitations, Hypokalemia, Hypomagnesemia, Hypocalcemia, Hypophosphatemia, New onset seizure Disposition: ADMITTED IP TO THIS [facility] Condition: Serious Is patient prescribed a controlled substance at d/c from ED?: No
[2018-09-01 14:49] LABS: Basophils % (A) 0 %; Eosinophils # (A) 0.2 k/uL (0-0.7); Eosinophils % (A) 5 %; Lymphocytes # (A) 1.2 k/uL (1.0-4.8); Lymphocytes % (A) 27 %; MCH 30.7 pg (25.0-35.0); MCHC 33.3 g/dL (31.0-37.0); Mean Platelet Volume 6.8; Monocytes # (A) 0.2 k/uL (0-1.0); Monocytes % (A) 5 %; Neutrophils # (A) 2.7 k/uL (1.3-7.7); Neutrophils % (A) 60 %; Platelet Count 199 k/uL (150-450); RBC 3.91 m/uL (3.80-5.40); RDW 12.9 % (11.5-15.5); WBC 4.5 k/uL (3.8-10.6)
[2018-09-01 14:57] LABS: ALT 30 U/L (9-52); AST 18 U/L (14-36); Albumin 3.4 g/dL (3.5-5.0); Alkaline Phosphatase 44 U/L (38-126); Anion Gap 5 mmol/L; Blood Urea Nitrogen 17 mg/dL (7-17); Calcium 8.9 mg/dL (8.4-10.2); Carbon Dioxide 24 mmol/L (22-30); Chloride 110 mmol/L (98-107); Glucose 97 mg/dL (74-99); Magnesium 1.4 mg/dL (1.6-2.3); Phosphorus 1.3 mg/dL (2.5-4.5); Potassium 3.8 mmol/L (3.5-5.1); Sodium 139 mmol/L (137-145); Total Bilirubin 0.5 mg/dL (0.2-1.3); Total Protein 5.9 g/dL (6.3-8.2)
[2018-09-01 15:00] LABS: D-Dimer 0.35 mg/L FEU (<0.60); INR 0.9 (<1.2); Partial Thromboplastin Time 22.4 sec (22.0-30.0); Prothrombin Time 10.2 sec (9.0-12.0)
[2018-09-01 15:06] LABS: Creatine Kinase 52 U/L (30-135)
[2018-09-01 15:19] LABS: Creatine Kinase MB <0.2 ng/mL (0.0-2.4); Troponin I <0.012 ng/mL (0.000-0.034)
[2018-09-01] MEDS ORDERED: levETIRAcetam IV 1,500 MG in SALINE 1 100ML.BAG IVPB STA (15:49)
[2018-09-01] MEDS: MAGNESIUM SULFATE-D5W PMX 1 GM in DEXTROSE/WATER 1 100ML.BAG IVPB SCH ×4 (15:49→19:39)
[2018-09-01] MEDS ORDERED: SODIUM PHOSPH/0.9 NACL 10 MMOL in SALINE 100 100ML.BAG IVPB STA (16:02)
[2018-09-01] MEDS ORDERED: SODIUM PHOSPHATE 10 MMOL in SODIUM CHLORIDE 0.9% 100 ML IV STA (16:07)
[2018-09-01] MEDS ORDERED: CALCIUM GLUCONATE 1 GM in SODIUM CHLORIDE 0.9% 100 ML IVPB ONE (16:30)
[2018-09-01] MEDS ORDERED: THIAMINE 100 MG/ML 2 ML VIAL IM STA (16:42)
[2018-09-01] MEDS ORDERED: LORazepam 2 MG/ML INJ IV PRN ×3 (16:42)
--- NOTE | 2018-09-01 16:59 | CT ---
EXAMINATION TYPE: CT brain wo con DATE OF EXAM: 09/01/2018 COMPARISON: 12/16/2016 HISTORY: Seizure CT DLP: 1028.4 mGycm. Automated Exposure Control for Dose Reduction was Utilized. TECHNIQUE: CT scan of the head is performed without contrast. FINDINGS: Ventricles of normal size. There is no mass effect nor midline shift. There is no sign of i ntracranial hemorrhage. The calvarium is intact. IMPRESSION: Negative CT scan of the brain. No change.
[2018-09-01] MEDS ORDERED: NITROGLYCERIN SL TABS 0.4 MG TAB SUBLINGUAL PRN (17:05)
[2018-09-01] MEDS: POTAS-SOD-PHOS 278-164-250 MG 1 EACH PACKET PO SCH ×2 (17:09→23:41)
[2018-09-01] MEDS: SODIUM CHLORIDE 0.9% 1,000 ML IV SCH (18:19)
[2018-09-01] MEDS ORDERED: ALPRAZolam 0.5 MG TAB PO PRN (22:14)
[2018-09-01] MEDS ORDERED: IBUPROFEN 800 MG TAB PO PRN (22:14)
[2018-09-01] MEDS ORDERED: traMADol 50 MG TAB PO PRN (22:14)
[2018-09-01] MEDS ORDERED: ZOLPIDEM 10 MG TAB PO SCH (22:15)
[2018-09-01] MEDS ORDERED: Magnesium Replacement Protocol 1 EACH MISC MISCELLANE PRN (22:16)
[2018-09-01] MEDS: KETOROLAC 30 MG/ML 1 ML VIAL IVP PRN (22:35)
[2018-09-01] MEDS ORDERED: ZOLPIDEM 5 MG TAB PO SCH (22:47)
[2018-09-01] MEDS: levETIRAcetam IV 1,000 MG in SALINE 1 100ML.BAG IVPB SCH (23:30)
--- NOTE | 2018-09-01 23:32 | HP ---
HISTORY AND PHYSICAL CHIEF COMPLAINT: A 28-year-old with rapid heart beat, heart racing, skipped beats, possible seizure at home saw to be in SVT [address] Was given some adenosine in the EMS. Found to have hypokalemia, hypomagnesemia, hypophosphatemia secondary to gastric bypass surgery for surgery consult. HOME MEDICATIONS: Reviewed. REVIEW OF SYSTEMS: Fourteen point review of systems negative except for mentioned in HPI. PAST MEDICAL HISTORY: Constipation, diarrhea, irritable bowel syndrome, GERD, gastric bypass surgery, right fallopian tube, sleeve gastrectomy, EGD with dilation, panic disorder, anxiety disorder. FAMILY HISTORY: Sister with DVT and cancer. ALLERGIES: AMOXICILLIN, NORCO. Mother with dyslipidemia, heart problems. Father with hypertension and dyslipidemia. PHYSICAL EXAM: VITAL SIGNS: Stable, afebrile. Cardiovascular: S1, S2. Lungs transmitted upper sounds. GI soft, nontender. HEMATOLOGY: Negative Homans. PSYCH: Fair mood and affect. NEUROLOGIC: Alert and orient x3. OPHTHALMOLOGIC: Pupils equal, round, reactive to light and accommodation. : No suprapubic tenderness. Blood pressure 130s over 80s, respiratory 25-30. ASSESSMENT: 1. Tachycardia. 2. Supraventricular tachycardia. 3. Palpitations. 4. Hyperkalemia. 5. Hypomagnesemia. 6. Hypercalcemia. 7. Hypophosphatemia. 8. New onset seizure. EEG. Replace electrolytes. Get cardiology and neurologist to see and surgery. MMODL / IJN: [id number] /
[2018-09-01] MEDS: ZOLPIDEM 5 MG TAB PO SCH (23:42)
[2018-09-02] MEDS ORDERED: KETOROLAC 30 MG/ML 1 ML VIAL IVP SCH
[2018-09-02 01:34] LABS: Magnesium 2.3 mg/dL (1.6-2.3); Phosphorus 3.8 mg/dL (2.5-4.5)
[2018-09-02 04:08] LABS: Cholesterol 128 mg/dL (<200); HDL Cholesterol 43 mg/dL (40-60); LDL Cholesterol,Calculated 77 mg/dL (0-99); Triglycerides 39 mg/dL (<150)
[2018-09-02] MEDS: SODIUM CHLORIDE 0.9% 1,000 ML IV SCH ×3 (05:28→23:09)
[2018-09-02] MEDS: METOCLOPRAMIDE 5 MG TAB PO SCH ×3 (06:25→18:12)
[2018-09-02] MEDS: KETOROLAC 30 MG/ML 1 ML VIAL IVP PRN ×2 (06:29→13:30)
[2018-09-02] MEDS: ASPIRIN 325 MG TAB PO SCH (09:08)
[2018-09-02] MEDS: ENOXAPARIN 40 MG/0.4 ML SYRINGE SQ SCH (09:08)
[2018-09-02] MEDS: MULTIVITAMINS, THERA 1 EACH TAB PO SCH (09:09)
[2018-09-02] MEDS: THIAMINE 100 MG TAB PO SCH ×2 (09:10→17:58)
[2018-09-02] MEDS: FAMOTIDINE 20 MG TAB PO SCH ×2 (09:10→21:03)
[2018-09-02] MEDS: POTAS-SOD-PHOS 278-164-250 MG 1 EACH PACKET PO SCH ×3 (09:10→21:04)
[2018-09-02] MEDS: VELIVET PO SCH (09:19)
--- NOTE | 2018-09-02 10:27 | P.GSCN ---
History of Present Illness Consult date: 09/02/18 Reason for Consult: history of gastric sleeve Requesting physician: Carlos Marcano History of present illness: CHIEF COMPLAINT: arrhythmia HISTORY OF PRESENT ILLNESS: 28-year-old female who was admitted to the hospital secondary to SVT. Patient's history of gastric sleeve in 2015. Patient was found to have multiple electrolyte abnormalities upon admission. She currently denies abdominal pain. Denies nausea or vomiting. She is tolerating regular diet. PAST MEDICAL HISTORY: See list. PAST SURGICAL HISTORY: See list. MEDICATIONS: See list. ALLERGIES: See list. SOCIAL HISTORY: No illicit drug use. REVIEW OF SYSTEMS: CONSTITUTIONAL: Denies fever or chills. HEENT: Denies blurred vision, vision changes, or eye pain. Denies hemoptysis ENDOCRINE: Denies heat or cold intolerance. CARDIOVASCULAR: Denies chest pain or pressure. RESPIRATORY: No shortness of breath. GASTROINTESTINAL: Denies abdominal pain. Denies nausea or vomiting. NEURO: Denies history of seizures. PSYCH: No depression or suicidal ideation HEMATOLOGIC: Denies bleeding disorders. LYMPHATIC: The patient denies any lumps and bumps around the neck. GENITOURINARY: Denies any blood in urine or increased urinary frequency. MUSCULOSKELETAL: Denies myalgias. Denies joint swelling. Denies decreased range of motion beyond patients baseline. SKIN: Denies pruitis. Denies rash. PHYSICAL EXAM: VITAL SIGNS: Currently stable. GENERAL: Well-developed in no acute distress. HEENT: No sclera icterus. Extraocular movements grossly intact. Moist buccal mucosa. Head is atraumatic, normocephalic. Hears conversational speech. No nasal drainage. NECK: Supple without lymphadenopathy. CHEST: Non-labored respirations and equal bilateral excursions. CARDIOVASCULAR: Regular rate with regular rhythm. Palpable 2+ radial pulses. ABDOMEN: Soft. Nondistended. Nontender. MUSCULOSKELETAL: No clubbing, cyanosis or edema. NEUROLOGIC: No focal or lateralizing signs. Cranial nerves II through XII grossly intact. PSYCH: Appropriate affect. Alert and oriented to person, place and time. SKIN: Well perfused. Good skin turgor. Cast to left foot. ASSESSMENT: 1. History of sleeve gastrectomy, 2016 2. Hypophosphatemia 3. Hypomagnesemia PLAN: 1. Continue to monitor electrolytes 2. No surgical intervention required 3. Consult dietary for nutritional support secondary to electrolyte abnormalities Nurse practitioner note has been reviewed by physician. Signing provider agrees with the documented findings, assessment, and plan of care. Past Medical History Past Medical History: GERD/Reflux Additional Past Medical History / Comment(s): ABDOMINAL PAIN, CONSTIPATION/ DIARRHEA, Elevated liver enzymes for unknown reason 2016 History of Any Multi-Drug Resistant Organisms: None Reported Past Surgical History: Cholecystectomy, Orthopedic Surgery Additional Past Surgical History / Comment(s): LEFT FOOT SX, Right fallopian tube removed; SLEEVE GASTRECTOMY 2016. ; EGD W DILATION WTIH BALLON, LAPROSCOPIC EXAM Past Anesthesia/Blood Transfusion Reactions: Postoperative Nausea & Vomiting ( PONV) Past Psychological History: Panic Disorder Additional Psychological History / Comment(s): PASSED OUT AT WORK AND HAD PANIC ATTACK. one time issue per pt. no problems since Smoking Status: Never smoker Past Alcohol Use History: None Reported Past Drug Use History: None Reported - Past Family History Sister(s) Family Medical History: Cancer, Deep Vein Thrombosis (DVT) Additional Family Medical History / Comment(s): Cervical cancer Mother Family Medical History: Hyperlipidemia Additional Family Medical History / Comment(s): HEART PROBLEMS, IRREG RYTHM Father Family Medical History: Hyperlipidemia, Hypertension Additional Family Medical History / Comment(s): Paternal grandfather had kidney disorder and colon cancer. Medications and Allergies Home Medications Medication Instructions Recorded Confirmed Type Zolpidem Tartrate [Ambien Cr] 12.5 mg PO HS 01/13/18 09/01/18 History Ranitidine HCl [Zantac] 150 mg PO BID #60 tab 01/14/18 09/01/18 Rx Multivitamins, Thera [Multivitamin 1 tab PO DAILY 02/18/18 09/01/18 History (formulary)] Ibuprofen [Motrin] 800 mg PO TID PRN 07/30/18 09/01/18 History Metoclopramide HCl [Reglan] 5 mg PO AC-TID 07/30/18 09/01/18 History traMADol HCL [Ultram] 50 mg PO TID PRN 07/30/18 09/01/18 History ALPRAZolam [Xanax] 0.5 mg PO HS PRN 08/11/18 09/01/18 History Velivet 28 1 tab PO DAILY 09/01/18 09/01/18 History Allergies Allergy/AdvReac Type Severity Reaction Status Date / Time amoxicillin [Amoxicillin] AdvReac Yeast Verified 09/01/18 14:51 Infection hydrocodone [From [facility]] AdvReac Nausea & Verified 09/01/18 14:51 Vomiting Surgical - Exam Vital Signs Temp Pulse Resp BP Pulse Ox 97.8 F 129 H 42 H 133/85 100 09/01/18 14:09 09/01/18 14:09 09/01/18 14:09 09/01/18 14:09 09/01/18 14:09 Results - Labs 09/01/18 14:23 09/01/18 14:23 Abnormal Lab Results - Last 24 Hours (Table) 09/01/18 Range/Units 14:23 Chloride 110 H (98-107) mmol/L Phosphorus 1.3 L (2.5-4.5) mg/dL Magnesium 1.4 L (1.6-2.3) mg/dL Total Protein 5.9 L (6.3-8.2) g/dL Albumin 3.4 L (3.5-5.0) g/dL Diabetes panel 09/01/18 09/02/18 Range/Units 14:23 03:18 Sodium 139 (137-145) mmol/L Potassium 3.8 (3.5-5.1) mmol/L Chloride 110 H (98-107) mmol/L Carbon Dioxide 24 (22-30) mmol/L BUN 17 (7-17) mg/dL Creatinine 0.68 (0.52-1.04) mg/dL Glucose 97 (74-99) mg/dL Calcium 8.9 (8.4-10.2) mg/dL AST 18 (14-36) U/L ALT 30 (9-52) U/L Alkaline Phosphatase 44 (38-126) U/L Total Protein 5.9 L (6.3-8.2) g/dL Albumin 3.4 L (3.5-5.0) g/dL Triglycerides 39 (<150) mg/dL HDL Cholesterol 43 (40-60) mg/dL Thyroid panel 09/01/18 Range/Units 14:23 TSH 2.660 (0.465-4.680) mIU/L Calcium panel 09/01/18 09/02/18 Range/Units 14:23 00:36 Calcium 8.9 (8.4-10.2) mg/dL Phosphorus 1.3 L 3.8 (2.5-4.5) mg/dL Albumin 3.4 L (3.5-5.0) g/dL Pituitary panel 09/01/18 Range/Units 14:23 Sodium 139 (137-145) mmol/L Potassium 3.8 (3.5-5.1) mmol/L Chloride 110 H (98-107) mmol/L Carbon Dioxide 24 (22-30) mmol/L BUN 17 (7-17) mg/dL Creatinine 0.68 (0.52-1.04) mg/dL Glucose 97 (74-99) mg/dL Calcium 8.9 (8.4-10.2) mg/dL TSH 2.660 (0.465-4.680) mIU/L Adrenal panel 09/01/18 Range/Units 14:23 Sodium 139 (137-145) mmol/L Potassium 3.8 (3.5-5.1) mmol/L Chloride 110 H (98-107) mmol/L Carbon Dioxide 24 (22-30) mmol/L BUN 17 (7-17) mg/dL Creatinine 0.68 (0.52-1.04) mg/dL Glucose 97 (74-99) mg/dL Calcium 8.9 (8.4-10.2) mg/dL Total Bilirubin 0.5 (0.2-1.3) mg/dL AST 18 (14-36) U/L ALT 30 (9-52) U/L Alkaline Phosphatase 44 (38-126) U/L Total Protein 5.9 L (6.3-8.2) g/dL Albumin 3.4 L (3.5-5.0) g/dL
--- NOTE | 2018-09-02 10:43 | P.CRDCN ---
History of Present Illness Consult date: 09/02/18 Requesting physician: Jacinto Olivares Consult reason: sycope Chief complaint: Syncope History of present illness: This is a pleasant 28-year-old female with no prior documented history of hypertension, no diabetes, no hyperlipidemia, she is a nonsmoker. She does occasionally drink caffeine may be one to 2 per day. She also has a history of a gastric sleeve which was performed in 2016. Patient was brought to the hospital via EMS after experiencing a syncopal episode at home. Apparently the patient was sitting in a lazy boy chair at home, her grandma noticed some snoring sounds, initially tried to wake her up and she was unresponsive. By the time EMS arrived, the patient was awake, alert but sluggish. She was noted according to the documentation to have an supraventricular tachycardia with a heart rate in the 160s. They attempted vasovagal maneuver, they also give the patient 6 mg of adenosine and repeated it with 12 mg of adenosine, and she continued to be rapid. She was transferred then to the emergency center. The initial EKG on presentation here showed a sinus tachycardia with a heart rate in the 120s. According to the ER documentation, the patient was up in the bathroom in the emergency room and again had an unresponsive episode, which appeared to be a possible seizure. Her heart rate at that time continued to be in the range of 120. According to the patient she does feel intermittent palpitations at times at home, and does get episodes of lightheadedness, she has never had a prior syncopal episode. Patient did have a recent surgery performed on her right lower extremity. A CAT scan of the brain was performed on arrival here which was negative. Blood pressure on arrival here 133/80, heart rate in the 120s, 100% on 2 L of oxygen. White blood cell count 4.5, hemoglobin 12.0, platelet count 199. D-dimer negative at 0.35. Sodium 139, potassium 3.8, BUN 17 and creatinine 0.6. Troponins negative 3. Albumin 5.9, phosphorus 1.3 and magnesium 1.4. TSH level 2.6. At the time of my examination this morning, patient states she feels mildly weak and tired, denies any further palpitations, no shortness of breath, no lightheadedness. She does have seizure precautions in place at this time. Past Medical History Past Medical History: GERD/Reflux Additional Past Medical History / Comment(s): ABDOMINAL PAIN, CONSTIPATION/ DIARRHEA, Elevated liver enzymes for unknown reason 2016 History of Any Multi-Drug Resistant Organisms: None Reported Past Surgical History: Cholecystectomy, Orthopedic Surgery Additional Past Surgical History / Comment(s): LEFT FOOT SX, Right fallopian tube removed; SLEEVE GASTRECTOMY 2016. ; EGD W DILATION WTIH [place]ALLON, LAPROSCOPIC EXAM Past Anesthesia/Blood Transfusion Reactions: Postoperative Nausea & Vomiting ( PONV) Past Psychological History: Panic Disorder Additional Psychological History / Comment(s): PASSED OUT AT WORK AND HAD PANIC ATTACK. one time issue per pt. no problems since Smoking Status: Never smoker Past Alcohol Use History: None Reported Past Drug Use History: None Reported - Past Family History Sister(s) Family Medical History: Cancer, Deep Vein Thrombosis (DVT) Additional Family Medical History / Comment(s): Cervical cancer Mother Family Medical History: Hyperlipidemia Additional Family Medical History / Comment(s): HEART PROBLEMS, IRREG RYTHM Father Family Medical History: Hyperlipidemia, Hypertension Additional Family Medical History / Comment(s): Paternal grandfather had kidney disorder and colon cancer. Medications and Allergies Home Medications Medication Instructions Recorded Confirmed Type Zolpidem Tartrate [Ambien Cr] 12.5 mg PO HS 01/13/18 09/01/18 History Ranitidine HCl [Zantac] 150 mg PO BID #60 tab 01/14/18 09/01/18 Rx Multivitamins, Thera [Multivitamin 1 tab PO DAILY 02/18/18 09/01/18 History (formulary)] Ibuprofen [Motrin] 800 mg PO TID PRN 07/30/18 09/01/18 History Metoclopramide HCl [Reglan] 5 mg PO AC-TID 07/30/18 09/01/18 History traMADol HCL [Ultram] 50 mg PO TID PRN 07/30/18 09/01/18 History ALPRAZolam [Xanax] 0.5 mg PO HS PRN 08/11/18 09/01/18 History Velivet 28 1 tab PO DAILY 09/01/18 09/01/18 History Allergies Allergy/AdvReac Type Severity Reaction Status Date / Time amoxicillin [Amoxicillin] AdvReac Yeast Verified 09/01/18 14:51 Infection hydrocodone [From [facility]] AdvReac Nausea & Verified 09/01/18 14:51 Vomiting Physical Exam Vitals: Vital Signs Temp Pulse Pulse Resp BP BP Pulse Ox 09/02/18 04:00 97.4 F L 83 18 109/61 100 09/02/18 02:34 75 18 09/02/18 00:00 97.7 F 75 18 105/55 100 09/01/18 22:03 98.0 F 89 18 121/74 96 09/01/18 22:00 75 18 09/01/18 21:00 80 16 112/69 99 09/01/18 20:30 90 10 L 107/71 98 09/01/18 20:00 93 15 109/63 100 09/01/18 19:30 90 18 109/63 99 09/01/18 19:15 89 18 112/78 100 09/01/18 19:00 97 16 114/78 09/01/18 18:45 90 16 116/75 09/01/18 18:30 87 15 115/72 09/01/18 18:15 93 14 116/81 100 09/01/18 18:00 101 H 17 119/82 09/01/18 17:45 96 18 121/85 86 L 09/01/18 17:30 101 H 18 123/86 100 09/01/18 17:15 100 18 123/86 100 09/01/18 17:00 106 H 118/79 100 09/01/18 16:45 115 H 116/71 09/01/18 16:30 126 H 114/62 100 09/01/18 16:15 117/60 09/01/18 16:00 147 H 30 H 130/69 94 L 09/01/18 15:45 125/79 09/01/18 15:30 97 25 H 121/87 100 09/01/18 15:15 86 23 125/82 100 09/01/18 15:00 96 24 129/80 100 09/01/18 14:45 100 25 H 134/86 100 09/01/18 14:30 123 H 25 H 135/85 100 09/01/18 14:15 126 H 133/85 100 09/01/18 14:09 97.8 F 129 H 42 H 133/85 100 Intake and Output 09/01/18 09/02/18 09/02/18 22:59 06:59 14:59 Other: Voiding Method Toilet Toilet # Voids 1 0 Weight 82 kg PHYSICAL EXAMINATION: GENERAL: 28-year-old female in no acute distress at the time of my examination HEENT: Head is atraumatic, normocephalic. Pupils equal, round. Sclera anicteric. Conjunctiva are clear. Mucous membranes of the mouth are moist. Neck is supple. There is no elevated jugular venous pressure. No carotid bruit is heard. HEART EXAMINATION: Heart S1, S2 normal. No murmur or gallop heard. CHEST EXAMINATION: Lungs are clear to auscultation and precussion. No chest wall tenderness is noted on palpation or with deep breathing. ABDOMEN: Soft, nontender. Bowel sounds are heard. No organomegaly noted. EXTREMITIES: 2+ peripheral pulses with no evidence of peripheral edema and no calf tenderness noted. She does have a cast on her left lower extremity NEUROLOGIC patient is awake, alert and oriented 3 . Results 09/01/18 14:23 09/01/18 14:23 Cardiac Enzymes 09/01/18 09/01/18 09/01/18 Range/Units 14:23 14:23 20:40 AST 18 (14-36) U/L CK-MB (CK-2) <0.2 (0.0-2.4) ng/mL Troponin I <0.012 <0.012 (0.000-0.034) ng/mL 09/02/18 Range/Units 03:18 AST (14-36) U/L CK-MB (CK-2) (0.0-2.4) ng/mL Troponin I <0.012 (0.000-0.034) ng/mL Coagulation 09/01/18 Range/Units 14:23 PT 10.2 (9.0-12.0) sec APTT 22.4 (22.0-30.0) sec Lipids 09/02/18 Range/Units 03:18 Triglycerides 39 (<150) mg/dL Cholesterol 128 (<200) mg/dL HDL Cholesterol 43 (40-60) mg/dL CBC 09/01/18 Range/Units 14:23 WBC 4.5 (3.8-10.6) k/uL RBC 3.91 (3.80-5.40) m/uL Hgb 12.0 (11.4-16.0) gm/dL Hct 36.0 (34.0-46.0) % Plt Count 199 (150-450) k/uL Comprehensive Metabolic Panel 09/01/18 Range/Units 14:23 Sodium 139 (137-145) mmol/L Potassium 3.8 (3.5-5.1) mmol/L Chloride 110 H (98-107) mmol/L Carbon Dioxide 24 (22-30) mmol/L BUN 17 (7-17) mg/dL Creatinine 0.68 (0.52-1.04) mg/dL Glucose 97 (74-99) mg/dL Calcium 8.9 (8.4-10.2) mg/dL AST 18 (14-36) U/L ALT 30 (9-52) U/L Alkaline Phosphatase 44 (38-126) U/L Total Protein 5.9 L (6.3-8.2) g/dL Albumin 3.4 L (3.5-5.0) g/dL Current Medications Generic Name Dose Route Start Last Admin Trade Name Freq PRN Reason Stop Dose Admin Alprazolam 0.5 mg 09/01/18 22:14 Xanax PO HS PRN Insomnia Aspirin 325 mg 09/02/18 09:00 09/02/18 09:08 Aspirin PO 325 mg DAILY JULIO Administration Enoxaparin Sodium 40 mg 09/02/18 09:00 09/02/18 09:08 Lovenox SQ 40 mg DAILY JULIO Administration Famotidine 20 mg 09/02/18 09:00 09/02/18 09:10 Pepcid PO 20 mg BID JULIO Administration Levetiracetam 1,000 mg/ IV 100 mls @ 400 mls/hr 09/02/18 00:00 09/01/18 23:30 Solution IVPB 400 mls/hr Q12H JULIO Administration Sodium Chloride 1,000 mls @ 100 mls/hr 09/01/18 17:15 09/02/18 05:28 Saline 0.9% IV Not Given .Q10H JULIO Ibuprofen 800 mg 09/01/18 22:14 09/02/18 09:08 Motrin PO 800 mg TID PRN Administration Pain Ketorolac Tromethamine 15 mg 09/01/18 22:19 09/02/18 06:29 Toradol IVP 09/05/18 22:15 15 mg Q6HR PRN Administration Mild to Moderate Pain Lorazepam 1 mg 09/01/18 16:42 Ativan IV Q2HR PRN CIWA 8 or 9 Lorazepam 1 mg 09/01/18 16:42 Ativan IV Q1HR PRN CIWA 10 to 15 Lorazepam 2 mg 09/01/18 16:42 Ativan IV 09/03/18 16:42 Q10M PRN CIWA 16 or higher Lorazepam 2 mg 09/01/18 16:42 Ativan IV Q6HR PRN Seizures Metoclopramide HCl 5 mg 09/02/18 07:30 09/02/18 06:25 Reglan PO 5 mg AC-TID JULIO Administration Miscellaneous Information 1 each 09/01/18 22:16 Magnesium Per Protocol MISCELLANE DAILY PRN Per Protocol Protocol Multivitamins 1 each 09/02/18 12:00 09/02/18 09:09 Theragran PO 1 each DAILY@1200 JULIO Administration Nitroglycerin 0.4 mg 09/01/18 17:05 Nitrostat SUBLINGUAL Q5M PRN Chest Pain Non-Formulary Medication 1 tab 09/02/18 09:00 09/02/18 09:19 Velivet 28 PO Not Given DAILY JULIO Potassium Phos/Sodium Phos 1 each 09/01/18 16:00 09/02/18 09:10 Neutra-Phos Packet PO 1 each TID JULIO Administration Thiamine HCl 100 mg 09/02/18 12:00 09/02/18 09:10 Vitamin B-1 PO 100 mg BID@1200,1700 JULIO Administration Tramadol HCl 50 mg 09/01/18 22:14 Ultram PO TID PRN Pain Zolpidem Tartrate 10 mg 09/01/18 23:00 09/01/18 23:42 Ambien PO 10 mg HS JULIO Administration Intake and Output 09/01/18 09/02/18 09/02/18 22:59 06:59 14:59 Other: Voiding Method Toilet Toilet # Voids 1 0 Weight 82 kg 09/01/18 14:23 09/01/18 14:23 EKG Interpretations (text) Initial EKG shows a sinus tachycardia subsequent EKG shows normal sinus Assessment and Plan Plan: Assessment and plan #1 syncopal episode, rule out cardiac causes. Rule out seizures. CT of the brain negative. #2 questionable supraventricular tachycardia, according to EMS documentation patient was found to be in SVT, was given adenosine twice without effect. We will attempt to obtain that EKG. Initial EKG on presentation here showed a sinus tachycardia, TSH normal #3 history of gastric sleeve #4 hypomagnesemia #5 hypophosphatemia #6 recent orthopedic surgery to left lower extremity, cast in place Plan We will obtain an echocardiogram with Doppler study. Replace magnesium. We will also attempt to get rhythm strips and EKGs from EMS to confirm whether or not the patient had supraventricular tachycardia. Continue to monitor for any significant tachycardia or bradycardia arrhythmias. Check orthostatic blood pressure and heart rate every shift. Further recommendations to follow. DNP note has been reviewed, I agree with a documented findings and plan of care. Patient was seen and examined.
[2018-09-02] MEDS: levETIRAcetam IV 1,000 MG in SALINE 1 100ML.BAG IVPB SCH ×2 (11:17→23:11)
[2018-09-02] MEDS ORDERED: MULTIVITAMINS, THERA 1 EACH TAB PO SCH (12:00)
--- NOTE | 2018-09-02 12:25 | ECHOF ---
Referral Reason:tachycardia, suncope MEASUREMENTS -------- HEIGHT: 160.0 cm WEIGHT: 81.6 kg BP: 109/61 RVIDd: 2.8 cm (< 3.3) IVSd: 0.9 cm (0.6 - 1.1) LVIDd: 4.5 cm (3.9 - 5.3) LVPWd: 1.0 cm (0.6 - 1.1) IVSs: 1.2 cm LVIDs: 3.2 cm LVPWs: 1.3 cm LA Diam: 3.2 cm (2.7 - 3.8) LAESV Index (A-L): 23.51 ml/m Ao Diam: 2.8 cm (2.0 - 3.7) AV Cusp: 1.8 cm (1.5 - 2.6) MV EXCURSION: 16.074 mm (> 18.000) MV EF SLOPE: 84 mm/s (70 - 150) EPSS: 0.8 cm MV E Pelon: 0.90 m/s MV DecT: 215 ms MV A Pelon: 0.55 m/s MV E/A Ratio: 1.64 RAP: 5.00 mmHg RVSP: 23.82 mmHg FINDINGS -------- Sinus rhythm. This was a technically good study. The left ventricular size is normal. Left ventricular wall thickness is normal. Overall left vent ricular systolic function is normal with, an EF between 60 - 65 %. The right ventricle is normal in size. Normal LA size by volume 22+/-6 ml/m2. The right atrium is normal in size. The aortic valve is trileaflet and appears structurally normal. There is trace mitral regurgitation. Mild tricuspid regurgitation present. Right ventricular systolic pressure is normal at < 35 mmHg. Trace/mild (physiologic) pulmonic regurgitation. The aortic root size is normal. Normal inferior vena cava with normal inspiratory collapse consistent with estimated right atrial pre ssure of 5 mmHg. There is no pericardial effusion. CONCLUSIONS -------- 1. Sinus rhythm. 2. This was a technically good study. 3. The left ventricular size is normal. 4. Left ventricular wall thickness is normal. 5. Overall left ventricular systolic function is normal with, an EF between 60 - 65 %. 6. The right ventricle is normal in size. 7. Normal LA size by volume 22+/-6 ml/m2. 8. The right atrium is normal in size. 9. The aortic valve is trileaflet and appears structurally normal. 10. There is trace mitral regurgitation. 11. Mild tricuspid regurgitation present. 12. Right ventricular systolic pressure is normal at < 35 mmHg. 13. Trace/mild (physiologic) pulmonic regurgitation. 14. The aortic root size is normal. 15. Normal inferior vena cava with normal inspiratory collapse consistent with estimated right atrial pressure of 5 mmHg. 16. There is no pericardial effusion. PAPER MACHINE OPERATOR: Ratna Shukla RDCS
[2018-09-02 13:34] VITALS: BMI 32.0
[2018-09-02] MEDS ORDERED: ACETAMINOPHEN TAB 325 MG TAB PO PRN (14:36)
[2018-09-02] MEDS: ZOLPIDEM 5 MG TAB PO SCH (21:03)
[2018-09-02 23:33] LABS: Amphetamine Screen,Urine Not Detected (NotDetected); Barbiturate Screen,Urine Not Detected (NotDetected); Benzodiazepines Screen,Urine Detected (NotDetected); Cocaine Screen,Urine Not Detected (NotDetected); Methadone Screen, Urine Not Detected (NotDetected); Opiate Screen,Urine Not Detected (NotDetected); Oxycodone Screen, Urine Not Detected (NotDetected); Phencyclidine Screen,Urine Not Detected (NotDetected); Tricyclic Antidepressant,Urine Detected (NotDetected); Urn Cannabinoid Scrn Not Detected (NotDetected)
--- NOTE | 2018-09-03 04:07 | PN ---
PROGRESS NOTE SUBJECTIVE: This is a 28-year-old white female, continues to have migraine headaches. Fioricet will have to be ordered as she has failed all other medications. Tramadol we will not want to give her because she possibly had a seizure. EEG is pending. Cardiology is evaluating for SVT and tachycardia. Echocardiogram has been ordered which shows sinus rhythm and no significant abnormalities on the echo. PSYCH: Fair mood and affect. NEUROLOGIC: Alert and orient x3. CARDIOVASCULAR: S1, S2. LUNGS: Clear. GI: Soft. HEMATOLOGY: Negative Homans. ASSESSMENT: 1. Tachycardia versus supraventricular tachycardia. 2. Migraine headaches. 3. Possible seizure. 4. Hypomagnesemia, improved. 5. Hypophosphatemia was improved. ( ) has been ruled out as being normal. Echo was normal. Await for EEG report prior to going home. Surgery also saw the patient. Monitor electrolytes. No surgical intervention. Consult dietary. Please see further orders. MMODL / IJN: [id number] /
[2018-09-03 06:30] LABS: Blood Urea Nitrogen 8 mg/dL (7-17); Calcium 8.3 mg/dL (8.4-10.2); Carbon Dioxide 26 mmol/L (22-30); Glucose 83 mg/dL (74-99); Magnesium 1.7 mg/dL (1.6-2.3); Phosphorus 3.5 mg/dL (2.5-4.5)
[2018-09-03] MEDS: METOCLOPRAMIDE 5 MG TAB PO SCH ×4 (06:32→20:12)
[2018-09-03 06:35] LABS: Anion Gap 4 mmol/L; Chloride 109 mmol/L (98-107); Potassium 3.6 mmol/L (3.5-5.1); Sodium 139 mmol/L (137-145)
[2018-09-03] MEDS: ASPIRIN 325 MG TAB PO SCH (08:32)
[2018-09-03] MEDS: MULTIVITAMINS, THERA 1 EACH TAB PO SCH ×2 (08:32→08:38)
[2018-09-03] MEDS: THIAMINE 100 MG TAB PO SCH ×3 (08:32→18:16)
[2018-09-03] MEDS: POTAS-SOD-PHOS 278-164-250 MG 1 EACH PACKET PO SCH ×4 (08:32→20:12)
[2018-09-03] MEDS: FAMOTIDINE 20 MG TAB PO SCH ×2 (08:32→20:12)
[2018-09-03] MEDS: ENOXAPARIN 40 MG/0.4 ML SYRINGE SQ SCH (08:32)
[2018-09-03] MEDS: VELIVET PO SCH (08:38)
--- NOTE | 2018-09-03 09:30 | P.PN ---
Subjective Progress Note Date: 09/03/18 CHIEF COMPLAINT: arrhythmia HISTORY OF PRESENT ILLNESS: 28-year-old female who was admitted to the hospital secondary to SVT. Patient's history of gastric sleeve in 2016. Patient was found to have multiple electrolyte abnormalities upon admission. She currently denies abdominal pain. Denies nausea or vomiting. She is tolerating regular diet. She is anxious to be discharged home today. PHYSICAL EXAM: VITAL SIGNS: Currently stable. GENERAL: Well-developed in no acute distress. HEENT: No sclera icterus. Extraocular movements grossly intact. Moist buccal mucosa. Head is atraumatic, normocephalic. Hears conversational speech. No nasal drainage. NECK: Supple without lymphadenopathy. CHEST: Non-labored respirations and equal bilateral excursions. CARDIOVASCULAR: Regular rate with regular rhythm. Palpable 2+ radial pulses. ABDOMEN: Soft. Nondistended. Nontender. MUSCULOSKELETAL: No clubbing, cyanosis or edema. NEUROLOGIC: No focal or lateralizing signs. Cranial nerves II through XII grossly intact. PSYCH: Appropriate affect. Alert and oriented to person, place and time. SKIN: Well perfused. Good skin turgor. Cast to left foot. ASSESSMENT: 1. History of sleeve gastrectomy, 2016 2. Hypophosphatemia 3. Hypomagnesemia PLAN: Supplement magnesium IV No surgical intervention required Stable for discharge from a surgical standpoint Patient may follow up with Dr. Jha outpatient as needed Nurse practitioner note has been reviewed by physician. Signing provider agrees with the documented findings, assessment, and plan of care. Objective - Vital Signs Vital signs: Vital Signs Temp 98.0 F 09/03/18 04:00 Pulse 79 09/03/18 04:00 Resp 18 09/03/18 04:00 BP 117/75 09/03/18 04:00 Pulse Ox 98 09/03/18 04:00 Intake & Output 09/02/18 09/03/18 09/03/18 18:59 06:59 18:59 Intake Total 100 Output Total 200 Balance 100 -200 Weight 82 kg 92.3 kg Intake: Oral 100 Output: Urine 200 Other: Voiding Method Toilet # Voids 1 1 - Labs CBC & Chem 7: 09/01/18 14:23 09/03/18 05:47 Labs: Abnormal Lab Results - Last 24 Hours (Table) 09/02/18 09/03/18 Range/Units 23:19 05:47 Chloride 109 H (98-107) mmol/L Calcium 8.3 L (8.4-10.2) mg/dL U Tricyclic Antidepress Detected H (NotDetected) U Benzodiazepines Scrn Detected H (NotDetected)
[2018-09-03] MEDS: MAGNESIUM SULFATE-D5W PMX 1 GM in DEXTROSE/WATER 1 100ML.BAG IVPB SCH ×2 (10:14→11:11)
[2018-09-03] MEDS: levETIRAcetam IV 1,000 MG in SALINE 1 100ML.BAG IVPB SCH ×2 (11:11→23:11)
[2018-09-03] MEDS: BUTALB/APAP/CAFF 50-325-40MG TAB PO PRN (13:36)
[2018-09-03] MEDS: SODIUM CHLORIDE 0.9% 1,000 ML IV SCH ×2 (18:16→20:10)
[2018-09-03] MEDS: ZOLPIDEM 5 MG TAB PO SCH (20:12)
[2018-09-03 20:21] VITALS: RESP 17
--- NOTE | 2018-09-03 23:59 | PN ---
PROGRESS NOTE SUBJECTIVE: 28-year-old white female white female SVT. She has got mild tachycardia at this time given Fioricet for headaches. Await for Cardiology clearance. Await for further EEG for seizure workup to see if there is any signs of seizures all the patient and she had a seizure prior to discharge. She just woke up out bed. Spoke about a but did sleep unresponsive doubt seizure disorder. For few minutes cardiovascular S1-S2 lungs clear GI soft. Hematology negative Homans. Psych fair mood and affect. Assessment this SVT, syncope, doubt seizure disorder, but we will run a EEG prior to discharge. This patient wants to go home. She has got chronic hypomagnesemia secondary to. Surgery: Home on Mag sulfate 400 mg daily. Await further clearance from EEG prior to discharge. MMODL / IJN: [id number] /
[2018-09-04 05:25] VITALS: BP 126/85; PULSE 89; TEMP 98.2
[2018-09-04] MEDS: BUTALB/APAP/CAFF 50-325-40MG TAB PO PRN (05:29)
[2018-09-04 05:36] LABS: Glucose,Whole Blood 82 mg/dL (75-99)
[2018-09-04] MEDS: SODIUM CHLORIDE 0.9% 1,000 ML IV SCH (05:46)
[2018-09-04 05:54] LABS: Basophils % (A) 1 %; Eosinophils # (A) 0.2 k/uL (0-0.7); Eosinophils % (A) 4 %; HCT 37.4 % (34.0-46.0); HGB 12.2 gm/dL (11.4-16.0); Lymphocytes # (A) 1.8 k/uL (1.0-4.8); Lymphocytes % (A) 31 %; MCH 30.6 pg (25.0-35.0); MCHC 32.7 g/dL (31.0-37.0); MCV 93.5 fL (80.0-100.0); Mean Platelet Volume 6.3; Monocytes # (A) 0.4 k/uL (0-1.0); Monocytes % (A) 6 %; Neutrophils # (A) 3.2 k/uL (1.3-7.7); Neutrophils % (A) 56 %; Platelet Count 214 k/uL (150-450); RDW 13.1 % (11.5-15.5); WBC 5.7 k/uL (3.8-10.6)
[2018-09-04 06:08] LABS: ALT 28 U/L (9-52); AST 23 U/L (14-36); Albumin 3.5 g/dL (3.5-5.0); Alkaline Phosphatase 47 U/L (38-126); Anion Gap 5 mmol/L; Blood Urea Nitrogen 9 mg/dL (7-17); Calcium 8.9 mg/dL (8.4-10.2); Carbon Dioxide 29 mmol/L (22-30); Chloride 110 mmol/L (98-107); Glucose 88 mg/dL (74-99); Potassium 4.1 mmol/L (3.5-5.1); Sodium 144 mmol/L (137-145); Total Bilirubin 0.6 mg/dL (0.2-1.3); Total Protein 6.1 g/dL (6.3-8.2)
[2018-09-04] MEDS: LORazepam 2 MG/ML INJ IV PRN ×3 (06:25→09:08)
[2018-09-04] MEDS: DIAZEPAM 5 MG/ML (10 ML MDV) IVP STA ×2 (06:42→08:33)
[2018-09-04] MEDS ORDERED: ONDANSETRON 4 MG/2 ML VIAL IVP PRN (06:52)
[2018-09-04] MEDS ORDERED: PHENYTOIN SODIUM EXTENDED 100 MG CAP PO SCH (07:00)
[2018-09-04] MEDS ORDERED: PROPOFOL 1,000 MG in EMPTY BAG 1 BAG IV SCH (07:00)
[2018-09-04] MEDS ORDERED: DIAZEPAM 5 MG/ML 2 ML INJ IVP STA (07:21)
[2018-09-04] MEDS ORDERED: PHENYTOIN SODIUM INJ 1,000 MG in SODIUM CHLORIDE 0.9% 100 ML IVPB STA (07:22)
[2018-09-04] MEDS ORDERED: DIAZEPAM 5 MG/ML (10 ML MDV) IVP STA (07:39)
[2018-09-04] MEDS ORDERED: PROPOFOL 10 MG/ML 20 ML VIAL IV ONE (07:55)
[2018-09-04] MEDS ORDERED: MIDAZOLAM 1 MG/ML 5 ML VIAL ONE (07:55)
[2018-09-04] MEDS ORDERED: ROCURONIUM BROMIDE 10 MG/ML 10 ML VIAL IV ONE (07:55)
--- NOTE | 2018-09-04 08:31 | XR ---
EXAMINATION TYPE: XR chest 1V portable, XR chest 1V portable DATE OF EXAM: 09/04/2018 Comparison: Exams are compared to each other and performed 3 minutes apart. Clinical History: 28-year-old female verify tube placement and reposition ET tube. Findings: Exam from 0801 hours: There is right mainstem intubation. The ET tube can be pulled back approximately 5 cm and reassess. N G tube courses below diaphragm. Poor aeration in the left lung with prominent retrocardiac and left b asilar opacity and some shift of the heart toward the left suggesting prominent atelectasis. Focal ri ght upper lobe opacity is present. Exam from 0804 hours: ET tube has been pulled back. The tip is located approximately 1.9 cm from the konrad. NG tube course s below the diaphragm. There is patchy left perihilar and left basilar opacity and additional right u pper lobe opacity. Some improvement in aeration on the left side. No sizable effusion. No pneumothora x. Combined Impression: 1. Initial right mainstem intubation. The ET tube is subsequently pulled back and final tip position is approximately 1.9 cm from the konrad. 2. After the ET tube is pulled back, there is improvement in aeration within the left lung but with p ersistent patchy left hilar and left basilar atelectasis versus infiltrates. 3. Focal right upper lobe airspace disease could represent pneumonia.
[2018-09-04] MEDS ORDERED: PHENYTOIN SODIUM INJ 50 MG/ML 2 ML VIAL IVP SCH (16:00)
--- NOTE | 2018-09-05 09:24 | EEG ---
ELECTROENCEPHALOGRAM REPORT DATE OF PROCEDURE: 09/02/2018 ELECTROENCEPHALOGRAM (EEG) REPORT: TECHNIQUE: A routine 18-channel EEG was performed with video using the 10-20 international placement system. HISTORY: Patient presented with a new onset syncopal event times two and a headache. One was witnessed, patient making snorting noise and unresponsive, patient regained consciousness. One was unwitnessed, in the ED bathroom. OTHER MEDICAL HISTORY: Includes panic attacks, foot surgery, insomnia. CURRENT MEDICATIONS: Keppra, Xanax, Ambien, Ultram, Ativan prn. STUDY DURATION: 25 minutes. FINDINGS: BACKGROUND: The background activity consisted of 8-9 Hz rhythmic waveforms, symmetrically distributed to both posterior quadrants. ACTIVATION: Hyperventilation: Induced physiological slowing. PHOTIC STIMULATION: Symmetric driving seen. SLEEP: Stages I and II sleep noted. ABNORMALITIES: Occasional runs of generalized 4-5 Hz theta range slowing were seen. IMPRESSION: Mildly abnormal EEG. The occasional runs of generalized theta range slowing mentioned above are not epileptiform in nature. These are thought to be stage related, potentially to drowsiness. These findings indicate mild diffuse cerebral dysfunction and may in part be due to medication effect. Clinical correlation is recommended. No seizures were recorded. No epileptiform activity was present. MMODL / IJN: [id number] /
--- NOTE | 2018-09-11 08:43 | DS ---
DISCHARGE SUMMARY DATE OF ADMISSION: 09/01/2018 DATE OF DISCHARGE: 09/04/2018 MEDICATIONS: 1. Ambien 12.5 q.h.s. 2. Zantac 150 b.i.d. 3. Multivitamin daily. 4. Tramadol 50 mg t.i.d. 5. Reglan 5 mg t.i.d. 6. Motrin 800 t.i.d. 7. Xanax 0.5 q.h.s. CONDITION: Guarded. PROGNOSIS: Guarded. HOSPITAL COURSE OF EVENTS: This is a white female who is admitted with syncope. We are awaiting the EEG report for multiple days. The report was not back. She was cleared by Cardiology for chest pain. The patient's EEG did not come back for multiple days at which time patient was waiting for EEG prior to sending her home. She had no seizures in the hospital until the day of discharge, at which time, multiple medicines were given for seizures. The patient was intubated and sent over to the other hospital where neurology is on staff. Please see further orders in the chart. MMODL / IJN: [id number] /
== END 2018-09-04 09:21 | disposition short-term general hospital (02) | DRG 310 ==
LOC: EC 14:06 → 3SCARD 17:05
PROVIDERS: ADMIT Family Medicine; ATTEND Family Medicine
PROC: 5A1935Z Respiratory Ventilation, Less than 24 Consecutive Hours (ICD-10-PCS; principal; 2018-09-04)
PROC: 0BH17EZ Insertion of Endotracheal Airway into Trachea, Via Natural or Artificial Opening (ICD-10-PCS; 2018-09-04)
DX: I47.1 Supraventricular tachycardia (principal); G40.909 Epilepsy, unspecified, not intractable, without status epilepticus; E83.39 Other disorders of phosphorus metabolism; E83.42 Hypomagnesemia; E83.51 Hypocalcemia; E83.52 Hypercalcemia; E87.5 Hyperkalemia; E87.6 Hypokalemia; F41.0 Panic disorder [episodic paroxysmal anxiety]; G43.909 Migraine, unspecified, not intractable, without status migrainosus; K21.9 Gastro-esophageal reflux disease without esophagitis; K58.2 Mixed irritable bowel syndrome; Z80.0 Family history of malignant neoplasm of digestive organs; Z80.49 Family history of malignant neoplasm of other genital organs; Z82.49 Family history of ischemic heart disease and other diseases of the circulatory system; Z98.84 Bariatric surgery status; Z98.890 Other specified postprocedural states; Z88.5 Allergy status to narcotic agent; Z88.0 Allergy status to penicillin; Z83.2 Family history of diseases of the blood and blood-forming organs and certain disorders involving the immune mechanism; Z84.1 Family history of disorders of kidney and ureter
CPT/HCPCS: 36415; 70450; 71045; 80048; 80053; 80061; 80306; 82550; 82553; 83735; 83880; 84100; 84443; 84484; 85025; 85379; 85610; 85730; 93005; 93306; 95819; 96361; 96365; 96366; 96368; 96372; 99291

== ENCOUNTER 2018-10-01 16:01 | Emergency (ER) | payer BC ==
[2018-10-01] MEDS ORDERED: SODIUM CHLORIDE 0.9% 1,000 ML IV STA ×2 (16:05→17:04)
[2018-10-01 16:53] LABS: Basophils % (A) 0 %; Eosinophils # (A) 0.4 k/uL (0-0.7); Eosinophils % (A) 6 %; HCT 38.5 % (34.0-46.0); HGB 11.9 gm/dL (11.4-16.0); Lymphocytes # (A) 1.6 k/uL (1.0-4.8); Lymphocytes % (A) 25 %; MCH 28.9 pg (25.0-35.0); MCHC 30.9 g/dL (31.0-37.0); MCV 93.6 fL (80.0-100.0); Mean Platelet Volume 6.7; Monocytes # (A) 0.3 k/uL (0-1.0); Monocytes % (A) 5 %; Neutrophils % (A) 62 %; Platelet Count 278 k/uL (150-450); RBC 4.11 m/uL (3.80-5.40); RDW 13.2 % (11.5-15.5); WBC 6.4 k/uL (3.8-10.6)
[2018-10-01 17:02] LABS: ALT 23 U/L (9-52); AST 22 U/L (14-36); Albumin 3.6 g/dL (3.5-5.0); Alkaline Phosphatase 60 U/L (38-126); Anion Gap 10 mmol/L; Blood Urea Nitrogen 15 mg/dL (7-17); Calcium 8.8 mg/dL (8.4-10.2); Carbon Dioxide 19 mmol/L (22-30); Chloride 110 mmol/L (98-107); Glucose 78 mg/dL (74-99); Potassium 4.3 mmol/L (3.5-5.1); Sodium 139 mmol/L (137-145); Total Bilirubin 0.3 mg/dL (0.2-1.3); Total Protein 6.3 g/dL (6.3-8.2)
[2018-10-01] MEDS ORDERED: DIAZEPAM 5 MG/ML 2 ML INJ IVP STA (17:04)
[2018-10-01] MEDS ORDERED: levETIRAcetam IV 1,000 MG in SALINE 1 100ML.BAG IVPB STA (17:04)
--- NOTE | 2018-10-01 17:06 | ED ---
Seizure HPI - General Chief Complaint: Seizure Stated Complaint: Seizure Time Seen by Provider: 10/01/18 16:05 Source: patient, EMS, RN notes reviewed, old records reviewed Mode of arrival: EMS Limitations: altered mental status - History of Present Illness Initial Comments: This is a 28-year-old female the ER for evaluation of seizure. Patient has rec ent diagnosis of pseudoseizures. Patient on Topamax is been taking all medications as directed. Patient was on her porch when she had an event today. She did get thrown from her porch secondary to shaking and seizure activity. Patient does have abrasion to left leg denies hitting her head. No headaches. Patient states she does feel shaky is appreciated she felt the course of the day. Denies any suicidal thoughts, homicidal thoughts or severe anxiety currently. Patient admits to appropriate appetite. MD Complaint: seizure, possible seizure, shaking -: hour(s) Description of Episode: loss of consciousness -: second(s) Witnessed: no Trauma: No Seizure History: known seizure disorder (Suicidal) Place: home Possible Precipitating Event: none Associated Symptoms: weakness, other (Shaking) Treatments Prior to Arrival: none - Related Data Home Medications Medication Instructions Recorded Confirmed Zolpidem Tartrate [Ambien Cr] 12.5 mg PO HS 01/13/18 10/01/18 Metoclopramide HCl [Reglan] 5 mg PO DAILY 07/30/18 10/01/18 traMADol HCL [Ultram] 50 mg PO TID PRN 07/30/18 10/01/18 Velivet 28 1 tab PO DAILY 09/01/18 10/01/18 ALPRAZolam [Xanax] 1 mg PO DAILY 10/01/18 10/01/18 QUEtiapine FUMARATE [SEROquel] 25 mg PO BID 10/01/18 10/01/18 Topiramate 50 mg PO DAILY 10/01/18 10/01/18 Previous Rx's Medication Instructions Recorded Ranitidine HCl [Zantac] 150 mg PO BID #60 tab 01/14/18 Allergies Allergy/AdvReac Type Severity Reaction Status Date / Time amoxicillin [Amoxicillin] AdvReac Yeast Verified 10/01/18 16:42 Infection hydrocodone [From [place]] AdvReac Nausea & Verified 10/01/18 16:42 Vomiting Review of Systems ROS Statement: Those systems with pertinent positive or pertinent negative responses have been documented in the HPI. ROS Other: All systems not noted in ROS Statement are negative. Past Medical History Past Medical History: GERD/Reflux, Seizure Disorder Additional Past Medical History / Comment(s): ABDOMINAL PAIN, CONSTIPATI ON/DIARRHEA, Elevated liver enzymes for unknown reason 2017 History of Any Multi-Drug Resistant Organisms: None Reported Past Surgical History: Cholecystectomy, Orthopedic Surgery Additional Past Surgical History / Comment(s): LEFT FOOT SX, Right fallopian tube removed; SLEEVE GASTRECTOMY; EGD W DILATION WTIH [place], LAPROSCOPIC EXAM Past Anesthesia/Blood Transfusion Reactions: Postoperative Nausea & Vomiting (PONV) Past Psychological History: Panic Disorder Smoking Status: Never smoker Past Alcohol Use History: None Reported Past Drug Use History: None Reported - Past Family History Sister(s) Family Medical History: Cancer, Deep Vein Thrombosis (DVT) Additional Family Medical History / Comment(s): Cervical cancer Mother Family Medical History: Hyperlipidemia Additional Family Medical History / Comment(s): HEART PROBLEMS, IRREG RYTHM Father Family Medical History: Hyperlipidemia, Hypertension Additional Family Medical History / Comment(s): Paternal grandfather had kidney disorder and colon cancer. General Exam Limitations: altered mental status General appearance: alert, in no apparent distress, anxious Head exam: Present: atraumatic, normocephalic, normal inspection Eye exam: Present: normal appearance, PERRL, EOMI. Absent: scleral icterus, conjunctival injection, periorbital swelling ENT exam: Present: normal exam, mucous membranes moist Neck exam: Present: normal inspection. Absent: tenderness, meningismus, lympha denopathy Respiratory exam: Present: normal lung sounds bilaterally. Absent: respiratory distress, wheezes, rales, rhonchi, stridor Cardiovascular Exam: Present: normal rhythm, tachycardia, normal heart sounds. Absent: systolic murmur, diastolic murmur, rubs, gallop, clicks GI/Abdominal exam: Present: soft, normal bowel sounds. Absent: distended, tenderness, guarding, rebound, rigid Extremities exam: Present: normal inspection, full ROM, normal capillary refill. Absent: tenderness, pedal edema, joint swelling, calf tenderness Back exam: Present: normal inspection Neurological exam: Present: alert, oriented X3, CN II-XII intact Psychiatric exam: Present: normal affect, normal mood Skin exam: Present: warm, dry, intact, normal color. Absent: rash Course Vital Signs 10/01/18 10/01/18 16:13 17:07 Temperature 98.1 F Pulse Rate 119 H 107 H Respiratory 20 20 Rate Blood Pressure 131/85 117/71 O2 Sat by Pulse 98 99 Oximetry - Reevaluation(s) Reevaluation #1: 10/01/18 18:01 Medical record is reviewed including prior inpatient hospitalization Reevaluation #2: 10/01/18 18:01 Dr. Mraie regarding patient, he does report patient clearly from prior inpatient hospitalization. Patient did have significant seizure activity here in the hospital was transferred outpatient facility where she was subsequently diagnosed with pseudoseizures, states patient should be fine with and electrode placement necessary, hydration and discharged Reevaluation #3: 10/01/18 18:02 Patient is without recurrent seizure activity here in the ER Medical Decision Making - Medical Decision Making 28-year-old female the ER for evaluation presented today for evaluation regards to seizure versus pseudoseizure, patient is taking Topamax as directed encouraged to continue medication, computed tomography scan of brain is negative and patient can be discharged at this time patient's left lites are normal - Lab Data Result diagrams: 10/01/18 16:39 10/01/18 16:39 Lab Results 10/01/18 10/01/18 Range/Units 16:39 16:39 WBC 6.4 (3.8-10.6) k/uL RBC 4.11 (3.80-5.40) m/uL Hgb 11.9 (11.4-16.0) gm/dL Hct 38.5 (34.0-46.0) % MCV 93.6 (80.0-100.0) fL MCH 28.9 (25.0-35.0) pg MCHC 30.9 L (31.0-37.0) g/dL RDW 13.2 (11.5-15.5) % Plt Count 278 (150-450) k/uL Neutrophils % 62 % Lymphocytes % 25 % Monocytes % 5 % Eosinophils % 6 % Basophils % 0 % Neutrophils # 4.0 (1.3-7.7) k/uL Lymphocytes # 1.6 (1.0-4.8) k/uL Monocytes # 0.3 (0-1.0) k/uL Eosinophils # 0.4 (0-0.7) k/uL Basophils # 0.0 (0-0.2) k/uL Sodium 139 (137-145) mmol/L Potassium 4.3 (3.5-5.1) mmol/L Chloride 110 H (98-107) mmol/L Carbon Dioxide 19 L (22-30) mmol/L Anion Gap 10 mmol/L BUN 15 (7-17) mg/dL Creatinine 0.80 (0.52-1.04) mg/dL Est GFR (CKD-EPI)AfAm >90 (>60 ml/min/1.73 sqM) Est GFR (CKD-EPI)NonAf >90 (>60 ml/min/1.73 sqM) Glucose 78 (74-99) mg/dL Calcium 8.8 (8.4-10.2) mg/dL Phosphorus 3.0 (2.5-4.5) mg/dL Magnesium 2.0 (1.6-2.3) mg/dL Total Bilirubin 0.3 (0.2-1.3) mg/dL AST 22 (14-36) U/L ALT 23 (9-52) U/L Alkaline Phosphatase 60 (38-126) U/L Total Protein 6.3 (6.3-8.2) g/dL Albumin 3.6 (3.5-5.0) g/dL - Radiology Data Radiology results: report reviewed (CT brain C-spine negative for acute disease), image reviewed Disposition Clinical Impression: Generalized seizure, Recurrent seizures Disposition: HOME SELF-CARE Condition: Good Instructions (If sedation given, give patient instructions): Recurrent Seizures in Adults (ED) Is patient prescribed a controlled substance at d/c from ED?: No Referrals: Jacinto Olivares MD [Primary Care Provider] - 1-2 days
--- NOTE | 2018-10-01 18:09 | CT ---
EXAMINATION TYPE: CT brain cspine wo con DATE OF EXAM: 10/01/2018 COMPARISON: 09/01/2018 HISTORY: Seizure CT DLP: 1292 mGycm Automated exposure control for dose reduction was used. TECHNIQUE: CT scan of the head and cervical spine are performed without contrast. FINDINGS: Ventricles and sulci appear normal. There is no mass effect nor midline shift. There is n o sign of intracranial hemorrhage. The calvarium is intact. Cervical vertebra have normal alignment. Posterior elements are intact. Disc spaces are fairly normal . Skull base is intact. There is anterior spurring at C4-5. Facet joints are intact. IMPRESSION: Negative CT scan of the brain. No change. Negative CT scan of the cervical spine.
[2018-10-01 18:26] LABS: Appearance,Urine Clear (Clear); Bilirubin,Urine Negative (Negative); Blood,Urine Negative (Negative); Color,Urine Light Yellow; Glucose,Urine (UA) Negative (Negative); Ketones,Urine Negative (Negative); Leukocyte Esterase,Urine Negative (Negative); Nitrite,Urine Negative (Negative); Protein,Urine Negative (Negative); Specific Gravity,Urine 1.006 (1.001-1.035); Urobilinogen,Urine <2.0 mg/dL (<2.0)
[2018-10-01 19:00] VITALS: BP 105/70; PULSE 86; RESP 18; TEMP 98.2
== END 2018-10-01 18:59 | disposition home or self-care (01) ==
LOC: EC 16:01
DX: G40.409 Other generalized epilepsy and epileptic syndromes, not intractable, without status epilepticus (principal); F41.0 Panic disorder [episodic paroxysmal anxiety]; Z79.899 Other long term (current) drug therapy; Z88.0 Allergy status to penicillin; Z88.5 Allergy status to narcotic agent
CPT/HCPCS: 36415; 70450; 72125; 80053; 81003; 83735; 84100; 85025; 87086; 96361; 96374; 96375; 99285

== ENCOUNTER 2018-10-09 04:52 | Emergency (ER) | payer BC ==
--- NOTE | 2018-10-09 05:35 | ED ---
Abdominal Pain HPI - General Chief Complaint: Abdominal Pain Stated Complaint: Abd Pain Source: patient, family Mode of arrival: ambulatory Limitations: no limitations - History of Present Illness Initial Comments: Negative is a 28-year-old female past medical history of gastric bypass, chronic abdominal pain and recent diagnosis of possible seizure-like activity for which she was admitted outside hospital. Patient presents this morning for evaluation of abdominal pain. Patient reports that 2 days ago she started new medication that is triangle in shape and she does not know her medication is. She states that she feels that this patient is making her stomach hurt. She describes crampy epigastric abdominal pain, acid reflux she reports that she can taste her stomach acid when she lays down at night. Patient reports that she is on 2 PPIs as well as Reglan daily. Is concerned that the multiple medications she is on are contributing to her chronic abdominal pain and asked reflux. brought multiple medications with her, including 2 bottles of meclizine for which she's prescribed when necessary for dizziness however patient stated that she takes one daily every day and she is not certain why. She also wasn't certain why she has a prescription for Reglan but she takes one daily. She's prescribed Topamax for seizures. She did not bring the pill that she describes is triangular in shape with her but states that she is only been aching for the past 2 days and feels like her symptoms have worsened over the last 2 days. - Related Data Home Medications Medication Instructions Recorded Confirmed Zolpidem Tartrate [Ambien Cr] 12.5 mg PO HS 01/13/18 10/01/18 Metoclopramide HCl [Reglan] 5 mg PO DAILY 07/30/18 10/01/18 traMADol HCL [Ultram] 50 mg PO TID PRN 07/30/18 10/01/18 Velivet 28 1 tab PO DAILY 09/01/18 10/01/18 ALPRAZolam [Xanax] 1 mg PO DAILY 10/01/18 10/01/18 QUEtiapine FUMARATE [SEROquel] 25 mg PO BID 10/01/18 10/01/18 Topiramate 50 mg PO DAILY 10/01/18 10/01/18 Previous Rx's Medication Instructions Recorded Ranitidine HCl [Zantac] 150 mg PO BID #60 tab 01/14/18 Allergies Allergy/AdvReac Type Severity Reaction Status Date / Time amoxicillin [Amoxicillin] AdvReac Yeast Verified 10/09/18 05:00 Infection hydrocodone [From [place]] AdvReac Nausea & Verified 10/09/18 05:00 Vomiting Review of Systems ROS Statement: Those systems with pertinent positive or pertinent negative responses have been documented in the HPI. ROS Other: All systems not noted in ROS Statement are negative. Past Medical History Past Medical History: GERD/Reflux, Seizure Disorder Additional Past Medical History / Comment(s): ABDOMINAL PAIN, CONSTIPATION/DIARRHEA, Elevated liver enzymes for unknown reason 2016 History of Any Multi-Drug Resistant Organisms: None Reported Past Surgical History: Bariatric Surgery, Cholecystectomy, Orthopedic Surgery Additional Past Surgical History / Comment(s): LEFT FOOT SX, Right fallopian tube removed; SLEEVE GASTRECTOMY; EGD W DILATION WTIH [place], MONEROSCOPIC EXAM Past Anesthesia/Blood Transfusion Reactions: Postoperative Nausea & Vomiting (PONV) Past Psychological History: Panic Disorder Smoking Status: Never smoker Past Alcohol Use History: None Reported Past Drug Use History: None Reported - Past Family History Sister(s) Family Medical History: Cancer, Deep Vein Thrombosis (DVT) Additional Family Medical History / Comment(s): Cervical cancer Mother Family Medical History: Hyperlipidemia Additional Family Medical History / Comment(s): HEART PROBLEMS, IRREG RYTHM Father Family Medical History: Hyperlipidemia, Hypertension Additional Family Medical History / Comment(s): Paternal grandfather had kidney disorder and colon cancer. General Exam - General Exam Comments Initial Comments: Physical Exam GENERAL: Patient is well-developed and well-nourished. Patient is nontoxic and well-hydrated and is in no distress. HENT: Normocephalic, Atraumatic. EYES: PERRL, EOMI PULMONARY: Unlabored respirations. No audible rales rhonchi or wheezing was noted. CARDIOVASCULAR: RRR ABDOMEN: Soft and nontender with normal bowel sounds. Well healed surgical incisions SKIN: Skin is clear with no lesions or rashes and otherwise unremarkable. : Deferred NEUROLOGIC: Patient is alert and oriented x3. Moving all extremities spontaneously No seizure activity MUSCULOSKELETAL: Normal extremities with adequate strength and full range of motion. No lower extremity swelling or edema. No calf tenderness. PSYCHIATRIC: Normal psychiatric evaluation. Odd affect Limitations: no limitations Limitations: no limitations Course Vital Signs 10/09/18 04:55 Temperature 97.7 F Pulse Rate 105 H Respiratory 20 Rate Blood Pressure 115/72 O2 Sat by Pulse 100 Oximetry Medical Decision Making - Medical Decision Making Patient was seen and evaluated history was obtained from the patient and review of medical record This patient is on multiple medication she recently started new medication which she does not have with her she does not know the name of and she does not know why she is taking. She is concerned that this is worsening her acid reflux. Patient had gastric bypass in 2014 and has not followed with her surgeon in number of years she does not follow with gastroenterology. Patient also states that she is recently diagnosed with seizure disorder but does not have a neurologist. Patient's physical exam is unremarkable patient has no abdominal tenderness, normal vital signs Labs and imaging were obtained Labs were unremarkable abdominal x-ray with no acute findings Given the patient's description of her discomfort being able to taste in her mouth I do suspect that her symptoms may be secondary to acid reflux or gas tritis I did order a GI cocktail however the patient declined it stating that anytime she tries to drink the she vomited so she is not willing to try it. Patient asking for narcotic pain medication for her epigastric abdominal comfort. I advised the patient to given her completely normal workup I do not feel narcotics are warranted. Patient then asking for something for her nausea. Zofran starter pack will be ordered. I discussed with the patient that I feel she needs to advocate for her own health, have a better understanding of the multiple medication she is on and why she is on them to prevent medication air is. I advised the patient I think she needs follow-up with multiple specialists including her surgeon possibly gastroenterology as well as neurology. These referrals were placed in her discharge paperwork. All questions pertaining care were answered the best of my ability return parameters were discussed the importance of follow-up was stressed to the patient and the patient was discharged home in stable condition. - Lab Data Result diagrams: 10/09/18 05:38 10/09/18 05:38 Lab Results 10/09/18 10/09/18 10/09/18 Range/Units 05:38 05:38 05:38 WBC 7.9 (3.8-10.6) k/uL RBC 4.33 (3.80-5.40) m/uL Hgb 12.7 (11.4-16.0) gm/dL Hct 39.4 (34.0-46.0) % MCV 91.0 (80.0-100.0) fL MCH 29.3 (25.0-35.0) pg MCHC 32.2 (31.0-37.0) g/dL RDW 13.2 (11.5-15.5) % Plt Count 284 (150-450) k/uL Neutrophils % 65 % Lymphocytes % 22 % Monocytes % 5 % Eosinophils % 5 % Basophils % 0 % Neutrophils # 5.1 (1.3-7.7) k/uL Lymphocytes # 1.8 (1.0-4.8) k/uL Monocytes # 0.4 (0-1.0) k/uL Eosinophils # 0.4 (0-0.7) k/uL Basophils # 0.0 (0-0.2) k/uL Sodium 141 (137-145) mmol/L Potassium 4.1 (3.5-5.1) mmol/L Chloride 115 H (98-107) mmol/L Carbon Dioxide 18 L (22-30) mmol/L Anion Gap 8 mmol/L BUN 26 H (7-17) mg/dL Creatinine 0.85 (0.52-1.04) mg/dL Est GFR (CKD-EPI)AfAm >90 (>60 ml/min/1.73 sqM) Est GFR (CKD-EPI)NonAf >90 (>60 ml/min/1.73 sqM) Glucose 85 (74-99) mg/dL Calcium 9.0 (8.4-10.2) mg/dL Total Bilirubin 0.6 (0.2-1.3) mg/dL AST 13 L (14-36) U/L ALT 13 (9-52) U/L Alkaline Phosphatase 56 (38-126) U/L Total Protein 6.5 (6.3-8.2) g/dL Albumin 3.7 (3.5-5.0) g/dL Amylase 34 (30-110) U/L Lipase 94 (23-300) U/L Urine Color Urine Appearance (Clear) Urine pH (5.0-8.0) Ur Specific [place] (1.001-1.035) Urine Protein (Negative) Urine Glucose (UA) (Negative) Urine Ketones (Negative) Urine Blood (Negative) Urine Nitrite (Negative) Urine Bilirubin (Negative) Urine Urobilinogen (<2.0) mg/dL Ur Leukocyte Esterase (Negative) Urine RBC (0-5) /hpf Urine WBC (0-5) /hpf Ur Squamous Epith Cells (0-4) /hpf Urine Mucus (None) /hpf Urine HCG, Qual Not Detected (Not Detectd) 10/09/18 Range/Units 05:38 WBC (3.8-10.6) k/uL RBC (3.80-5.40) m/uL Hgb (11.4-16.0) gm/dL Hct (34.0-46.0) % MCV (80.0-100.0) fL MCH (25.0-35.0) pg MCHC (31.0-37.0) g/dL RDW (11.5-15.5) % Plt Count (150-450) k/uL Neutrophils % % Lymphocytes % % Monocytes % % Eosinophils % % Basophils % % Neutrophils # (1.3-7.7) k/uL Lymphocytes # (1.0-4.8) k/uL Monocytes # (0-1.0) k/uL Eosinophils # (0-0.7) k/uL Basophils # (0-0.2) k/uL Sodium (137-145) mmol/L Potassium (3.5-5.1) mmol/L Chloride (98-107) mmol/L Carbon Dioxide (22-30) mmol/L Anion Gap mmol/L BUN (7-17) mg/dL Creatinine (0.52-1.04) mg/dL Est GFR (CKD-EPI)AfAm (>60 ml/min/1.73 sqM) Est GFR (CKD-EPI)NonAf (>60 ml/min/1.73 sqM) Glucose (74-99) mg/dL Calcium (8.4-10.2) mg/dL Total Bilirubin (0.2-1.3) mg/dL AST (14-36) U/L ALT (9-52) U/L Alkaline Phosphatase (38-126) U/L Total Protein (6.3-8.2) g/dL Albumin (3.5-5.0) g/dL Amylase (30-110) U/L Lipase (23-300) U/L Urine Color Yellow Urine Appearance Clear (Clear) Urine pH 6.0 (5.0-8.0) Ur Specific [place] 1.035 (1.001-1.035) Urine Protein Trace H (Negative) Urine Glucose (UA) Negative (Negative) Urine Ketones Negative (Negative) Urine Blood Negative (Negative) Urine Nitrite Negative (Negative) Urine Bilirubin Negative (Negative) Urine Urobilinogen 2.0 (<2.0) mg/dL Ur Leukocyte Esterase Trace H (Negative) Urine RBC 2 (0-5) /hpf Urine WBC 3 (0-5) /hpf Ur Squamous Epith Cells 3 (0-4) /hpf Urine Mucus Occasional H (None) /hpf Urine HCG, Qual (Not Detectd) Disposition Clinical Impression: Epigastric abdominal pain Disposition: HOME SELF-CARE Condition: Stable Instructions (If sedation given, give patient instructions): Abdominal Pain (ED) Is patient prescribed a controlled substance at d/c from ED?: No Referrals: Jacinto Olivares MD [Primary Care Provider] - 1-2 days Cali Jha MD [STAFF PHYSICIAN] - 1-2 days Kevan Wilson MD [STAFF PHYSICIAN] - 1-2 days Chemo Sweeney MD [Medical Doctor] - 1-2 days Jae Sun MD [STAFF PHYSICIAN] - 1-2 days Chanel Sun MD [STAFF PHYSICIAN] - 1-2 days
[2018-10-09 05:45] LABS: Appearance,Urine Clear (Clear); Bilirubin,Urine Negative (Negative); Blood,Urine Negative (Negative); Color,Urine Yellow; Glucose,Urine (UA) Negative (Negative); Ketones,Urine Negative (Negative); Leukocyte Esterase,Urine Trace (Negative); Mucus,Urine Occasional /hpf; Nitrite,Urine Negative (Negative); Protein,Urine Trace (Negative); RBC,Urine 2 /hpf (0-5); Specific Gravity,Urine 1.035 (1.001-1.035); Squamous Epithelial Cell,Urine 3 /hpf (0-4); WBC,Urine 3 /hpf (0-5)
[2018-10-09 05:46] LABS: Basophils % (A) 0 %; Eosinophils # (A) 0.4 k/uL (0-0.7); Eosinophils % (A) 5 %; HCT 39.4 % (34.0-46.0); HGB 12.7 gm/dL (11.4-16.0); Lymphocytes # (A) 1.8 k/uL (1.0-4.8); Lymphocytes % (A) 22 %; MCH 29.3 pg (25.0-35.0); MCHC 32.2 g/dL (31.0-37.0); Mean Platelet Volume 6.9; Monocytes # (A) 0.4 k/uL (0-1.0); Monocytes % (A) 5 %; Neutrophils # (A) 5.1 k/uL (1.3-7.7); Neutrophils % (A) 65 %; Platelet Count 284 k/uL (150-450); RBC 4.33 m/uL (3.80-5.40); RDW 13.2 % (11.5-15.5); WBC 7.9 k/uL (3.8-10.6)
[2018-10-09 06:06] LABS: ALT 13 U/L (9-52); AST 13 U/L (14-36); Albumin 3.7 g/dL (3.5-5.0); Alkaline Phosphatase 56 U/L (38-126); Amylase 34 U/L (30-110); Anion Gap 8 mmol/L; Blood Urea Nitrogen 26 mg/dL (7-17); Carbon Dioxide 18 mmol/L (22-30); Chloride 115 mmol/L (98-107); Glucose 85 mg/dL (74-99); Lipase 94 U/L (23-300); Potassium 4.1 mmol/L (3.5-5.1); Sodium 141 mmol/L (137-145); Total Bilirubin 0.6 mg/dL (0.2-1.3); Total Protein 6.5 g/dL (6.3-8.2)
[2018-10-09] MEDS ORDERED: MAG HYDROX/AL HYDROX/SIMETH 30 ML, HYOSCYAMINE ELIXIR 10 ML, CIMETIDINE HCL 300 MG, LID... PO STA ×4 (06:09)
--- NOTE | 2018-10-09 06:11 | XR ---
EXAMINATION TYPE: XR KUB DATE OF EXAM: 10/09/2018 5:59 AM CLINICAL HISTORY: History of GERD and prior bariatric surgery with abdominal pain TECHNIQUE: Two Upright KUB images of the abdomen are obtained. COMPARISON: Abdominal x-ray and CT abdomen June 07, 2018.. FINDINGS: Surgical changes epigastric region from gastric sleeve surgery are appreciated. Scattered g as is seen in non-distended small bowel loops. Gas and fecal material is seen in non-distended colon. Cholecystectomy clips are redemonstrated. No pneumoperitoneum or suspicious calcification is seen. L eleno bases are clear. Osseous structures are intact. IMPRESSION: Overall nonobstructive bowel gas pattern.
[2018-10-09] MEDS ORDERED: ONDANSETRON 4 MG ODT STARTER PACK 2 TAB BTL PO STA (06:45)
[2018-10-09 06:56] VITALS: BP 119/72; PULSE 82; RESP 16; TEMP 98.2
== END 2018-10-09 06:59 | disposition home or self-care (01) ==
LOC: EC 04:52
DX: R10.13 Epigastric pain (principal); F41.0 Panic disorder [episodic paroxysmal anxiety]; Z79.899 Other long term (current) drug therapy; Z79.3 Long term (current) use of hormonal contraceptives; Z88.0 Allergy status to penicillin; Z88.5 Allergy status to narcotic agent; Z53.29 Procedure and treatment not carried out because of patient's decision for other reasons; Z98.84 Bariatric surgery status; Z90.49 Acquired absence of other specified parts of digestive tract
CPT/HCPCS: 36415; 80053; 82150; 83690; 85025; 81001; 81025; 74018; 99284; S0119

== ENCOUNTER → 2018-10-15 | Day surgery (SDC) | payer BC ==
[2018-10-14 12:31] VITALS: BMI 34.3
[~2018-10-15] MED LIST changes: +LIDOCAINE 1% 20 ML VIAL (10MG/ML) FOR IV START INTRADERMA ONE; +MIDAZOLAM 2 MG/2 ML VIAL IVP ONE; +ONDANSETRON 4 MG/2 ML VIAL IVP ONE; +PROPOFOL 10 MG/ML 20 ML VIAL IV ONE
[2018-10-15 12:43] VITALS: TEMP 97.8
--- NOTE | 2018-10-15 13:38 | P.GSHP ---
History of Present Illness H&P Date: 10/15/18 Chief Complaint: Gastritis This is a 28-year-old female who presents today for EGD. She's had issues with some epigastric abdominal pain. Past Medical History Past Medical History: GERD/Reflux, Seizure Disorder Additional Past Medical History / Comment(s): epigastric pain, nauseated, last seizure week & half ago, placed on atenolol recently for fast heart rate, intermittent vertigo, hx. elevated liver enzymes for unknown reason 2017 History of Any Multi-Drug Resistant Organisms: None Reported Past Surgical History: Bariatric Surgery, Cholecystectomy, Orthopedic Surgery Additional Past Surgical History / Comment(s): LEFT FOOT SX, Right fallopian tube removed; SLEEVE GASTRECTOMY; EGD W DILATION, LAPAROSCOPIC EXAM Past Anesthesia/Blood Transfusion Reactions: Motion Sickness, Postoperative Nausea & Vomiting (PONV) Smoking Status: Never smoker - Past Family History Sister(s) Family Medical History: Cancer, Deep Vein Thrombosis (DVT) Additional Family Medical History / Comment(s): Cervical cancer Mother Family Medical History: Hyperlipidemia Additional Family Medical History / Comment(s): HEART PROBLEMS, IRREG RYTHM Father Family Medical History: Hyperlipidemia, Hypertension Additional Family Medical History / Comment(s): Paternal grandfather had kidney disorder and colon cancer. Medications and Allergies Home Medications Medication Instructions Recorded Confirmed Type Zolpidem Tartrate [Ambien Cr] 12.5 mg PO HS 01/13/18 10/15/18 History Ranitidine HCl [Zantac] 150 mg PO BID #60 tab 01/14/18 10/15/18 Rx Metoclopramide HCl [Reglan] 5 mg PO DAILY 07/30/18 10/15/18 History traMADol HCL [Ultram] 50 mg PO TID PRN 07/30/18 10/15/18 History ALPRAZolam [Xanax] 1 mg PO HS PRN 10/01/18 10/15/18 History QUEtiapine FUMARATE [SEROquel] 25 mg PO BID 10/01/18 10/15/18 History Topiramate 100 mg PO BID 10/01/18 10/15/18 History Atenolol [Tenormin] 25 mg PO DAILY 10/14/18 10/15/18 History Meclizine [Antivert] 25 mg PO TID 10/14/18 10/15/18 History Allergies Allergy/AdvReac Type Severity Reaction Status Date / Time amoxicillin [Amoxicillin] AdvReac Yeast Verified 10/15/18 12:37 Infection hydrocodone [From [place]] AdvReac Nausea & Verified 10/15/18 12:37 Vomiting Surgical - Exam Vital Signs Temp Pulse Resp BP Pulse Ox 97.8 F 100 16 133/77 98 10/15/18 12:41 10/15/18 12:41 10/15/18 12:41 10/15/18 12:41 10/15/18 12:41 - General well developed, well nourished, no distress - Eyes PERRL - ENT normal pinna - Neck no masses - Respiratory normal expansion - Cardiovascular Rhythm: regular - Abdomen Abdomen: soft, non tender Assessment and Plan Assessment: Gastritis. We'll perform EGD.
[2018-10-15 14:07] VITALS: BP 113/60; RESP 17
[2018-10-15 14:15] VITALS: PULSE 77
--- NOTE | 2018-10-15 15:37 | P.OP ---
Date of Procedure: 10/15/18 Preoperative Diagnosis: Epigastric abdominal pain Postoperative Diagnosis: Gastritis Procedure(s) Performed: EGD Anesthesia: MAC Surgeon: Cali Jha Pathology: other (Antrum) Condition: stable Disposition: PACU Description of Procedure: The patient's placed on the endoscopy table lateral position and she received IV sedation. The gastroscope was placed oropharynx passed in the esophagus and into the stomach. Scope was then placed through the pylorus. The first and second portion of the duodenum appeared normal. Scope was then brought back the antrum and this was moderately inflamed. A biopsies performed. The scope was then brought back through the gastric sleeve. The sleeve was without evidence of stricture. There was no tortuosity the sleeve. The sleeve was completely patent. The GE junction was at 47 is. There is no evidence of a hiatal hernia. The distal esophagus appeared normal. The proximal esophagus. Normal. Scope was withdrawn for patient.
== END ==
LOC: ORWHC2ENDO 12:11
PROVIDERS: ATTEND Surgery
DX: K29.50 Unspecified chronic gastritis without bleeding (principal); R10.13 Epigastric pain; K21.9 Gastro-esophageal reflux disease without esophagitis; G40.909 Epilepsy, unspecified, not intractable, without status epilepticus; I10 Essential (primary) hypertension; E78.5 Hyperlipidemia, unspecified; Z80.0 Family history of malignant neoplasm of digestive organs; Z80.49 Family history of malignant neoplasm of other genital organs; Z98.84 Bariatric surgery status; Z79.899 Other long term (current) drug therapy; Z88.1 Allergy status to other antibiotic agents; Z88.5 Allergy status to narcotic agent
CPT/HCPCS: 88305; 43239; J2250; J2405; J2704

== ENCOUNTER 2018-10-18 18:45 | Emergency (ER) | payer BC ==
[2018-10-18] MEDS ORDERED: SODIUM CHLORIDE 0.9% 1,000 ML IV STA (19:26)
[2018-10-18] MEDS ORDERED: KETOROLAC 30 MG/ML 1 ML VIAL IVP STA (19:26)
[2018-10-18] MEDS ORDERED: SODIUM CHLORIDE 0.9% 1,000 ML IV ONE (19:26)
--- NOTE | 2018-10-18 19:41 | ED ---
General Adult HPI - General Source: patient Mode of arrival: wheelchair Limitations: no limitations <Cassia Potter - Last Filed: 10/19/18 00:07> <Theresa Real - Last Filed: 10/19/18 07:26> - General Chief complaint: Seizure Stated complaint: Seizure Time Seen by Provider: 10/18/18 19:17 - History of Present Illness Initial comments: 28-year-old female patient presents to the emergency department today for evaluation of possible seizure. Patient states that she has recently been diagnosed with seizures, previous reports from an inpatient and emergency visit report that she was diagnosed with pseudoseizures. Patient states this afternoon she was in the living room when she said became dizzy, her heart was racing, and then she fell. was present and did witness the episode. States he was able to catch her and assist her to the floor. States she sat down on the floor and stated that she was not feeling well. Patient does not remember anything after falling. reports that she never lost consciousness and did speak to him throughout the entire episode. He denies any convulsions. She did not lose bowel or bladder control. Patient states currently she feels rundown and tired like she ran a marathon. Patient states she is currently experiencing a headache and some palpitations. She denies any chest pain, nausea, or vomiting. Denies any numbness or tingling to her ex tremities. Patient states she has had syncopal episodes in the past, urinary able to find a cause. Patient denies any recent rash, fever, chills, shortness breath, abdominal pain, diarrhea, constipation, back pain, numbness, tingling, hematuria, dysuria, urinary urgency, urinary frequency, or any other complaints. (Cassia Potter) - Related Data Home Medications Medication Instructions Recorded Confirmed Zolpidem Tartrate [Ambien Cr] 12.5 mg PO HS 01/13/18 10/15/18 Metoclopramide HCl [Reglan] 5 mg PO DAILY 07/30/18 10/15/18 traMADol HCL [Ultram] 50 mg PO TID PRN 07/30/18 10/15/18 ALPRAZolam [Xanax] 1 mg PO HS PRN 10/01/18 10/15/18 QUEtiapine FUMARATE [SEROquel] 25 mg PO BID 10/01/18 10/15/18 Topiramate 100 mg PO BID 10/01/18 10/15/18 Atenolol [Tenormin] 25 mg PO DAILY 10/14/18 10/15/18 Meclizine [Antivert] 25 mg PO TID 10/14/18 10/15/18 Previous Rx's Medication Instructions Recorded Ranitidine HCl [Zantac] 150 mg PO BID #60 tab 01/14/18 Allergies Allergy/AdvReac Type Severity Reaction Status Date / Time amoxicillin [Amoxicillin] AdvReac Yeast Verified 10/18/18 19:03 Infection hydrocodone [From [place]] AdvReac Nausea & Verified 10/18/18 19:03 Vomiting Review of Systems ROS Other: All systems not noted in ROS Statement are negative. <Cassia Potter - Last Filed: 10/19/18 00:07> ROS Other: All systems not noted in ROS Statement are negative. <Theresa Real - Last Filed: 10/19/18 07:26> ROS Statement: Those systems with pertinent positive or pertinent negative responses have been documented in the HPI. Past Medical History Past Medical History: GERD/Reflux, Seizure Disorder Additional Past Medical History / Comment(s): epigastric pain, nauseated, last seizure week & half ago, placed on atenolol recently for fast heart rate, intermittent vertigo, hx. elevated liver enzymes for unknown reason 2017 History of Any Multi-Drug Resistant Organisms: None Reported Past Surgical History: Bariatric Surgery, Cholecystectomy, Orthopedic Surgery Additional Past Surgical History / Comment(s): LEFT FOOT SX, Right fallopian tube removed; SLEEVE GASTRECTOMY; EGD W DILATION, LAPAROSCOPIC EXAM Past Anesthesia/Blood Transfusion Reactions: Motion Sickness, Postoperative Nausea & Vomiting (PONV) Past Psychological History: Panic Disorder Smoking Status: Never smoker Past Alcohol Use History: None Reported Past Drug Use History: None Reported - Past Family History Sister(s) Family Medical History: Cancer, Deep Vein Thrombosis (DVT) Additional Family Medical History / Comment(s): Cervical cancer Mother Family Medical History: Hyperlipidemia Additional Family Medical History / Comment(s): HEART PROBLEMS, IRREG RYTHM Father Family Medical History: Hyperlipidemia, Hypertension Additional Family Medical History / Comment(s): Paternal grandfather had kidney disorder and colon cancer. <Cassia Potter - Last Filed: 10/19/18 00:07> General Exam Limitations: no limitations General appearance: alert, in no apparent distress, other (Physical well- developed, well-nourished adult female patient in no acute distress. Vital signs upon presentation are temperature 98.0F, pulse 90, respirations 18, blood pressure 131/86, pulse ox 100% on room air.) Eye exam: Present: normal appearance, PERRL, EOMI. Absent: scleral icterus, conjunctival injection, nystagmus, periorbital swelling ENT exam: Present: normal exam, normal oropharynx, mucous membranes moist Respiratory exam: Present: normal lung sounds bilaterally. Absent: respiratory distress, wheezes, rales, rhonchi, stridor Cardiovascular Exam: Present: regular rate, normal rhythm, normal heart sounds. Absent: systolic murmur, diastolic murmur, rubs, gallop, clicks GI/Abdominal exam: Present: soft, normal bowel sounds. Absent: distended, tenderness, guarding, rebound, rigid Neurological exam: Present: alert, oriented X3, CN II-XII intact, other (Strength in all 4 extremities is 5/5.) Psychiatric exam: Present: normal affect, normal mood Skin exam: Present: warm, dry, intact, normal color. Absent: rash <Cassia Potter Matt - Last Filed: 10/19/18 00:07> Course Vital Signs 10/18/18 10/18/18 10/18/18 19:00 21:00 22:19 Temperature 98.0 F 97.6 F Pulse Rate 90 86 74 Respiratory 18 16 16 Rate Blood Pressure 131/86 132/78 111/65 O2 Sat by Pulse 100 98 99 Oximetry EKG Findings - EKG Comments: EKG Findings:: EKG obtained at 2012 shows normal sinus rhythm with a ventricular rate of 67, NV interval 136, QRS duration 86, QT 404, QTC 426. No evidence of ST elevation or depression. <Cassia Potter - Last Filed: 10/19/18 00:07> Medical Decision Making - Lab Data Result diagrams: 10/18/18 19:45 10/18/18 19:45 <Cassia Potter - Last Filed: 10/19/18 00:07> - Lab Data Result diagrams: 10/18/18 19:45 10/18/18 19:45 <Theresa Real - Last Filed: 10/19/18 07:26> - Medical Decision Making 28-year-old female patient presents to the emergency department today for evaluation after she had an episode where she became dizzy and fell to the ground. Patient does have difficulty remembering the episode. Boyfriend witnessed the episode and denies any evidence of seizure activity. Physical examination is unremarkable. She is neurologically intact with no focal deficits. EKG showed normal sinus rhythm. Labs reviewed and were unremarkable. Patient did have some mild dehydration with an elevated BUN. I did discuss signs and results with the patient. We did rehydrate using normal saline. She does report feeling improvement of symptoms. She will be discharged home at this time to follow-up with the primary care physician for recheck in 1-2 days. Return parameters were discussed in detail. She verbalizes understanding and agrees this plan. (Cassia Potter) I was available for consultation in the emergency department. The history and physical exam were done by the midlevel provider. I was consulted for this patient's care. I reviewed the case with the midlevel provider and based on their presentation of the patient, I agree with the assessment, medical decision making and plan of care as documented. (Theresa Real) - Lab Data Lab Results 10/18/18 10/18/18 10/18/18 Range/Units 19:45 19:45 19:45 WBC 6.2 (3.8-10.6) k/uL RBC 4.08 (3.80-5.40) m/uL Hgb 12.3 (11.4-16.0) gm/dL Hct 34.9 (34.0-46.0) % MCV 85.8 D (80.0-100.0) fL MCH 30.2 (25.0-35.0) pg MCHC 35.2 (31.0-37.0) g/dL RDW 15.8 H (11.5-15.5) % Plt Count 280 (150-450) k/uL Neutrophils % 62 % Lymphocytes % 25 % Monocytes % 5 % Eosinophils % 5 % Basophils % 0 % Neutrophils # 3.8 (1.3-7.7) k/uL Lymphocytes # 1.6 (1.0-4.8) k/uL Monocytes # 0.3 (0-1.0) k/uL Eosinophils # 0.3 (0-0.7) k/uL Basophils # 0.0 (0-0.2) k/uL PT (9.0-12.0) sec INR (<1.2) APTT (22.0-30.0) sec Sodium 140 (137-145) mmol/L Potassium 4.1 (3.5-5.1) mmol/L Chloride 112 H (98-107) mmol/L Carbon Dioxide 21 L (22-30) mmol/L Anion Gap 7 mmol/L BUN 21 H (7-17) mg/dL Creatinine 0.75 (0.52-1.04) mg/dL Est GFR (CKD-EPI)AfAm >90 (>60 ml/min/1.73 sqM) Est GFR (CKD-EPI)NonAf >90 (>60 ml/min/1.73 sqM) Glucose 82 (74-99) mg/dL Calcium 9.0 (8.4-10.2) mg/dL Magnesium 2.2 (1.6-2.3) mg/dL Total Bilirubin 0.2 (0.2-1.3) mg/dL AST 17 (14-36) U/L ALT 21 (9-52) U/L Alkaline Phosphatase 65 (38-126) U/L Troponin I (0.000-0.034) ng/mL Total Protein 6.5 (6.3-8.2) g/dL Albumin 3.7 (3.5-5.0) g/dL Urine Color Urine Appearance (Clear) Urine pH (5.0-8.0) Ur Specific [place] (1.001-1.035) Urine Protein (Negative) Urine Glucose (UA) (Negative) Urine Ketones (Negative) Urine Blood (Negative) Urine Nitrite (Negative) Urine Bilirubin (Negative) Urine Urobilinogen (<2.0) mg/dL Ur Leukocyte Esterase (Negative) Urine RBC (0-5) /hpf Urine WBC (0-5) /hpf Ur Squamous Epith Cells (0-4) /hpf Hyaline Casts (0-2) /lpf Urine Mucus (None) /hpf Urine HCG, Qual Not Detected (Not Detectd) 10/18/18 10/18/18 10/18/18 Range/Units 19:45 19:45 19:45 WBC (3.8-10.6) k/uL RBC (3.80-5.40) m/uL Hgb (11.4-16.0) gm/dL Hct (34.0-46.0) % MCV (80.0-100.0) fL MCH (25.0-35.0) pg MCHC (31.0-37.0) g/dL RDW (11.5-15.5) % Plt Count (150-450) k/uL Neutrophils % % Lymphocytes % % Monocytes % % Eosinophils % % Basophils % % Neutrophils # (1.3-7.7) k/uL Lymphocytes # (1.0-4.8) k/uL Monocytes # (0-1.0) k/uL Eosinophils # (0-0.7) k/uL Basophils # (0-0.2) k/uL PT 9.9 (9.0-12.0) sec INR 0.9 (<1.2) APTT 22.7 (22.0-30.0) sec Sodium (137-145) mmol/L Potassium (3.5-5.1) mmol/L Chloride (98-107) mmol/L Carbon Dioxide (22-30) mmol/L Anion Gap mmol/L BUN (7-17) mg/dL Creatinine (0.52-1.04) mg/dL Est GFR (CKD-EPI)AfAm (>60 ml/min/1.73 sqM) Est GFR (CKD-EPI)NonAf (>60 ml/min/1.73 sqM) Glucose (74-99) mg/dL Calcium (8.4-10.2) mg/dL Magnesium (1.6-2.3) mg/dL Total Bilirubin (0.2-1.3) mg/dL AST (14-36) U/L ALT (9-52) U/L Alkaline Phosphatase (38-126) U/L Troponin I <0.012 (0.000-0.034) ng/mL Total Protein (6.3-8.2) g/dL Albumin (3.5-5.0) g/dL Urine Color Yellow Urine Appearance Clear (Clear) Urine pH 6.5 (5.0-8.0) Ur Specific [place] 1.026 (1.001-1.035) Urine Protein Negative (Negative) Urine Glucose (UA) Negative (Negative) Urine Ketones Negative (Negative) Urine Blood Small H (Negative) Urine Nitrite Negative (Negative) Urine Bilirubin Negative (Negative) Urine Urobilinogen <2.0 (<2.0) mg/dL Ur Leukocyte Esterase Negative (Negative) Urine RBC 20 H (0-5) /hpf Urine WBC 2 (0-5) /hpf Ur Squamous Epith Cells 2 (0-4) /hpf Hyaline Casts 1 (0-2) /lpf Urine Mucus Rare H (None) /hpf Urine HCG, Qual (Not Detectd) Disposition Is patient prescribed a controlled substance at d/c from ED?: No Time of Disposition: 22:07 <Cassia Potter - Last Filed: 10/19/18 00:07> <Theresa Real - Last Filed: 10/19/18 07:26> Clinical Impression: Near syncope Disposition: HOME SELF-CARE Condition: Good Instructions (If sedation given, give patient instructions): Dehydration (ED), Near Syncope (ED) Additional Instructions: Increase fluids. Rest. Follow-up through primary care physician for recheck in 1-2 days. Return to the emergency department immediately for any new, worsening, or concerning symptoms. Referrals: Jacinto Olivares MD [Primary Care Provider] - 1-2 days
[2018-10-18 20:23] LABS: Basophils % (A) 0 %; Eosinophils # (A) 0.3 k/uL (0-0.7); Eosinophils % (A) 5 %; HCT 34.9 % (34.0-46.0); HGB 12.3 gm/dL (11.4-16.0); Lymphocytes # (A) 1.6 k/uL (1.0-4.8); Lymphocytes % (A) 25 %; MCH 30.2 pg (25.0-35.0); MCHC 35.2 g/dL (31.0-37.0); Mean Platelet Volume 9.2; Monocytes # (A) 0.3 k/uL (0-1.0); Monocytes % (A) 5 %; Neutrophils # (A) 3.8 k/uL (1.3-7.7); Neutrophils % (A) 62 %; Platelet Count 280 k/uL (150-450); RBC 4.08 m/uL (3.80-5.40); RDW 15.8 % (11.5-15.5); WBC 6.2 k/uL (3.8-10.6)
[2018-10-18 20:26] LABS: ALT 21 U/L (9-52); AST 17 U/L (14-36); Albumin 3.7 g/dL (3.5-5.0); Alkaline Phosphatase 65 U/L (38-126); Anion Gap 7 mmol/L; Blood Urea Nitrogen 21 mg/dL (7-17); Carbon Dioxide 21 mmol/L (22-30); Chloride 112 mmol/L (98-107); Glucose 82 mg/dL (74-99); INR 0.9 (<1.2); Magnesium 2.2 mg/dL (1.6-2.3); Partial Thromboplastin Time 22.7 sec (22.0-30.0); Potassium 4.1 mmol/L (3.5-5.1); Prothrombin Time 9.9 sec (9.0-12.0); Sodium 140 mmol/L (137-145); Total Bilirubin 0.2 mg/dL (0.2-1.3); Total Protein 6.5 g/dL (6.3-8.2)
[2018-10-18 20:29] LABS: Appearance,Urine Clear (Clear); Bilirubin,Urine Negative (Negative); Blood,Urine Small (Negative); Color,Urine Yellow; Glucose,Urine (UA) Negative (Negative); Hyaline Casts,Urine 1 /lpf (0-2); Ketones,Urine Negative (Negative); Leukocyte Esterase,Urine Negative (Negative); MCV 85.8 fL (80.0-100.0); Mucus,Urine Rare /hpf; Nitrite,Urine Negative (Negative); PH, Urine 6.5 (5.0-8.0); Protein,Urine Negative (Negative); RBC,Urine 20 /hpf (0-5); Specific Gravity,Urine 1.026 (1.001-1.035); Squamous Epithelial Cell,Urine 2 /hpf (0-4); Urobilinogen,Urine <2.0 mg/dL (<2.0); WBC,Urine 2 /hpf (0-5)
[2018-10-18 21:02] VITALS: RESP 16
[2018-10-18 22:21] VITALS: BP 111/65; PULSE 74; TEMP 97.6
== END 2018-10-18 22:33 | disposition home or self-care (01) ==
LOC: EC 18:45
DX: R55 Syncope and collapse (principal); R51 Headache; R00.2 Palpitations; R42 Dizziness and giddiness; E86.0 Dehydration; R79.89 Other specified abnormal findings of blood chemistry; F41.0 Panic disorder [episodic paroxysmal anxiety]; G40.909 Epilepsy, unspecified, not intractable, without status epilepticus; Z79.899 Other long term (current) drug therapy; Z88.0 Allergy status to penicillin; Z88.5 Allergy status to narcotic agent; Z98.84 Bariatric surgery status; Z90.49 Acquired absence of other specified parts of digestive tract
CPT/HCPCS: 36415; 93005; 80053; 83735; 84484; 85025; 85610; 85730; 81001; 81025; 99284; 96374; 96361; J1885

== ENCOUNTER 2019-01-10 18:20 | Emergency (ER) | payer BC ==
[2019-01-10 19:11] VITALS: TEMP 98.4
[2019-01-10 19:50] LABS: Amorphous Sediment,Urine Rare /hpf; Appearance,Urine Cloudy (Clear); Bacteria,Urine Occasional /hpf; Bilirubin,Urine Negative (Negative); Blood,Urine Negative (Negative); Color,Urine Yellow; Glucose,Urine (UA) Negative (Negative); Hyaline Casts,Urine 2 /lpf (0-2); Ketones,Urine Negative (Negative); Leukocyte Esterase,Urine Small (Negative); Mucus,Urine Occasional /hpf; Nitrite,Urine Negative (Negative); PH, Urine 6.5 (5.0-8.0); Protein,Urine Negative (Negative); Specific Gravity,Urine 1.018 (1.001-1.035); Squamous Epithelial Cell,Urine 2 /hpf (0-4); Urobilinogen,Urine <2.0 mg/dL (<2.0); WBC,Urine 2 /hpf (0-5)
[2019-01-10] MEDS ORDERED: KETOROLAC 30 MG/ML 1 ML VIAL IVP STA (20:11)
--- NOTE | 2019-01-10 20:13 | ED ---
Female Urogenital HPI - General Chief complaint: Urogenital Stated complaint: poss ruptured cyst Time Seen by Provider: 01/10/19 19:20 Source: patient Mode of arrival: ambulatory Limitations: no limitations - History of Present Illness Initial comments: This patient is a 28-year-old woman with history of previous RSO and known history of left-sided ovarian cyst. She states that around 5 PM tonight while she was carrying a heavy tray at work she felt something like a pop in the lower left abdomen and then developed sharp abdominal pain. The patient rates the pain is constant, sharp, severe. She has not noted any relieving factors. She states it is a little worse when she tries to walk. Patient states it feels identical to previous ovarian cyst she had a ruptured. The patient further relates that she is seeing Dr. Pichardo for her known ovarian cyst and also endometriosis and that she was told she will probably have a hysterectomy in the next 1-2 months. MD Complaint: pelvic pain Onset/Timin -: hour(s) Location: LLQ Radiation: non-radiating Severity: moderate Quality: sharp Consistency: constant Improves with: none Worsens with: none Last Menstrual Period: 11/28/18 Patient : No - Related Data Home Medications Medication Instructions Recorded Confirmed Zolpidem Tartrate [Ambien Cr] 12.5 mg PO HS 01/13/18 01/10/19 Metoclopramide HCl [Reglan] 5 mg PO BID 07/30/18 01/10/19 traMADol HCL [Ultram] 50 mg PO TID PRN 07/30/18 01/10/19 ALPRAZolam [Xanax] 1 mg PO HS PRN 10/01/18 01/10/19 Topiramate [Topamax] 100 mg PO BID 01/10/19 01/10/19 busPIRone HCL 15 mg PO TID 01/10/19 01/10/19 Previous Rx's Medication Instructions Recorded Ranitidine HCl [Zantac] 150 mg PO BID #60 tab 01/14/18 Hydrocodone/Acetaminophen [[place] 1 each PO Q6HR PRN #12 tab 01/11/19 5-325] Allergies Allergy/AdvReac Type Severity Reaction Status Date / Time amoxicillin [Amoxicillin] AdvReac Yeast Verified 01/10/19 19:27 Infection hydrocodone [From [place]] AdvReac Nausea & Verified 01/10/19 19:27 Vomiting Review of Systems ROS Statement: Those systems with pertinent positive or pertinent negative responses have been documented in the HPI. ROS Other: All systems not noted in ROS Statement are negative. Constitutional: Denies: fever, chills, weakness Respiratory: Denies: cough, dyspnea Cardiovascular: Denies: chest pain, palpitations, edema Gastrointestinal: Reports: as per HPI, abdominal pain. Denies: nausea, vomiting, diarrhea Genitourinary: Denies: dysuria, frequency, hematuria, discharge Musculoskeletal: Denies: back pain Skin: Denies: rash Neurological: Denies: headache, weakness, numbness Past Medical History Past Medical History: GERD/Reflux, Seizure Disorder Additional Past Medical History / Comment(s): epigastric pain, nauseated, last seizure week & half ago, placed on atenolol recently for fast heart rate, intermittent vertigo, hx. elevated liver enzymes for unknown reason 2017 History of Any Multi-Drug Resistant Organisms: None Reported Past Surgical History: Bariatric Surgery, Cholecystectomy, Orthopedic Surgery Additional Past Surgical History / Comment(s): LEFT FOOT SX, Right fallopian tube removed; SLEEVE GASTRECTOMY; EGD W DILATION, LAPAROSCOPIC EXAM Past Anesthesia/Blood Transfusion Reactions: Motion Sickness, Postoperative Nausea & Vomiting (PONV) Past Psychological History: Panic Disorder Smoking Status: Never smoker Past Alcohol Use History: None Reported Past Drug Use History: None Reported - Past Family History Sister(s) Family Medical History: Cancer, Deep Vein Thrombosis (DVT) Additional Family Medical History / Comment(s): Cervical cancer Mother Family Medical History: Hyperlipidemia Additional Family Medical History / Comment(s): HEART PROBLEMS, IRREG RYTHM Father Family Medical History: Hyperlipidemia, Hypertension Additional Family Medical History / Comment(s): Paternal grandfather had kidney disorder and colon cancer. General Exam Limitations: no limitations General appearance: alert, in no apparent distress Head exam: Present: atraumatic, normocephalic Eye exam: Present: normal appearance. Absent: scleral icterus, conjunctival injection ENT exam: Present: normal oropharynx Neck exam: Present: normal inspection Respiratory exam: Present: normal lung sounds bilaterally. Absent: respiratory distress, wheezes, rales, rhonchi, stridor Cardiovascular Exam: Present: regular rate, normal rhythm, normal heart sounds. Absent: systolic murmur, diastolic murmur, rubs, gallop GI/Abdominal exam: Present: soft, tenderness (There is mild left lower quadrant tenderness), normal bowel sounds. Absent: distended, guarding, rebound, rigid, mass, pulsatile mass, hernia Extremities exam: Present: normal inspection, normal capillary refill. Absent: pedal edema, calf tenderness Back exam: Present: normal inspection. Absent: CVA tenderness (R), CVA tenderness (L) Neurological exam: Present: alert Skin exam: Present: warm, dry, intact, normal color. Absent: rash Course Vital Signs 01/10/19 01/10/19 19:08 21:35 Temperature 98.4 F Pulse Rate 82 70 Respiratory 18 16 Rate Blood Pressure 125/84 124/87 O2 Sat by Pulse 100 100 Oximetry Medical Decision Making - Lab Data Result diagrams: 01/10/19 20:53 01/10/19 20:53 Lab Results 01/10/19 01/10/19 01/10/19 Range/Units 19:34 19:34 20:53 WBC 6.2 (3.8-10.6) k/uL RBC 4.20 (3.80-5.40) m/uL Hgb 12.3 (11.4-16.0) gm/dL Hct 38.4 (34.0-46.0) % MCV 91.4 (80.0-100.0) fL MCH 29.3 (25.0-35.0) pg MCHC 32.1 (31.0-37.0) g/dL RDW 13.5 (11.5-15.5) % Plt Count 278 (150-450) k/uL Neutrophils % 63 % Lymphocytes % 26 % Monocytes % 5 % Eosinophils % 2 % Basophils % 0 % Neutrophils # 3.9 (1.3-7.7) k/uL Lymphocytes # 1.6 (1.0-4.8) k/uL Monocytes # 0.3 (0-1.0) k/uL Eosinophils # 0.2 (0-0.7) k/uL Basophils # 0.0 (0-0.2) k/uL Sodium (137-145) mmol/L Potassium (3.5-5.1) mmol/L Chloride (98-107) mmol/L Carbon Dioxide (22-30) mmol/L Anion Gap mmol/L BUN (7-17) mg/dL Creatinine (0.52-1.04) mg/dL Est GFR (CKD-EPI)AfAm (>60 ml/min/1.73 sqM) Est GFR (CKD-EPI)NonAf (>60 ml/min/1.73 sqM) Glucose (74-99) mg/dL Calcium (8.4-10.2) mg/dL Total Bilirubin (0.2-1.3) mg/dL AST (14-36) U/L ALT (9-52) U/L Alkaline Phosphatase (38-126) U/L Total Protein (6.3-8.2) g/dL Albumin (3.5-5.0) g/dL Urine Color Yellow Urine Appearance Cloudy H (Clear) Urine pH 6.5 (5.0-8.0) Ur Specific [place] 1.018 (1.001-1.035) Urine Protein Negative (Negative) Urine Glucose (UA) Negative (Negative) Urine Ketones Negative (Negative) Urine Blood Negative (Negative) Urine Nitrite Negative (Negative) Urine Bilirubin Negative (Negative) Urine Urobilinogen <2.0 (<2.0) mg/dL Ur Leukocyte Esterase Small H (Negative) Urine WBC 2 (0-5) /hpf Ur Squamous Epith Cells 2 (0-4) /hpf Amorphous Sediment Rare H (None) /hpf Urine Bacteria Occasional H (None) /hpf Hyaline Casts 2 (0-2) /lpf Urine Mucus Occasional H (None) /hpf Urine HCG, Qual Not Detected (Not Detectd) 01/10/19 Range/Units 20:53 WBC (3.8-10.6) k/uL RBC (3.80-5.40) m/uL Hgb (11.4-16.0) gm/dL Hct (34.0-46.0) % MCV (80.0-100.0) fL MCH (25.0-35.0) pg MCHC (31.0-37.0) g/dL RDW (11.5-15.5) % Plt Count (150-450) k/uL Neutrophils % % Lymphocytes % % Monocytes % % Eosinophils % % Basophils % % Neutrophils # (1.3-7.7) k/uL Lymphocytes # (1.0-4.8) k/uL Monocytes # (0-1.0) k/uL Eosinophils # (0-0.7) k/uL Basophils # (0-0.2) k/uL Sodium 143 (137-145) mmol/L Potassium 4.1 (3.5-5.1) mmol/L Chloride 112 H (98-107) mmol/L Carbon Dioxide 21 L (22-30) mmol/L Anion Gap 10 mmol/L BUN 19 H (7-17) mg/dL Creatinine 0.81 (0.52-1.04) mg/dL Est GFR (CKD-EPI)AfAm >90 (>60 ml/min/1.73 sqM) Est GFR (CKD-EPI)NonAf >90 (>60 ml/min/1.73 sqM) Glucose 93 (74-99) mg/dL Calcium 9.0 (8.4-10.2) mg/dL Total Bilirubin 0.3 (0.2-1.3) mg/dL AST 20 (14-36) U/L ALT 16 (9-52) U/L Alkaline Phosphatase 70 (38-126) U/L Total Protein 6.9 (6.3-8.2) g/dL Albumin 4.0 (3.5-5.0) g/dL Urine Color Urine Appearance (Clear) Urine pH (5.0-8.0) Ur Specific [place] (1.001-1.035) Urine Protein (Negative) Urine Glucose (UA) (Negative) Urine Ketones (Negative) Urine Blood (Negative) Urine Nitrite (Negative) Urine Bilirubin (Negative) Urine Urobilinogen (<2.0) mg/dL Ur Leukocyte Esterase (Negative) Urine WBC (0-5) /hpf Ur Squamous Epith Cells (0-4) /hpf Amorphous Sediment (None) /hpf Urine Bacteria (None) /hpf Hyaline Casts (0-2) /lpf Urine Mucus (None) /hpf Urine HCG, Qual (Not Detectd) Disposition Clinical Impression: Pelvic pain Disposition: HOME SELF-CARE Condition: Fair Instructions (If sedation given, give patient instructions): Pelvic Pain in Women (ED) Prescriptions: Hydrocodone/Acetaminophen [[place] 5-325] 1 each PO Q6HR PRN #12 tab PRN Reason: Pain Is patient prescribed a controlled substance at d/c from ED?: Yes When asked, does pt state using other controlled substances?: No If prescribed controlled substance>3 days was MAPS reviewed?: Prescribed <3 Days If opioid is for acute pain is fill amount 7 days or less?: Yes If Rx opioid, was Start Talking consent form obtained?: Yes Referrals: Jacinto Olivares MD [Primary Care Provider] - 1-2 days Pippa Pichardo DO [Doctor of Osteopathic Medicine] - 1-2 days
[2019-01-10 21:14] LABS: Basophils % (A) 0 %; Eosinophils # (A) 0.2 k/uL (0-0.7); Eosinophils % (A) 2 %; HCT 38.4 % (34.0-46.0); HGB 12.3 gm/dL (11.4-16.0); Lymphocytes # (A) 1.6 k/uL (1.0-4.8); Lymphocytes % (A) 26 %; MCH 29.3 pg (25.0-35.0); MCHC 32.1 g/dL (31.0-37.0); MCV 91.4 fL (80.0-100.0); Mean Platelet Volume 6.5; Monocytes # (A) 0.3 k/uL (0-1.0); Monocytes % (A) 5 %; Neutrophils # (A) 3.9 k/uL (1.3-7.7); Neutrophils % (A) 63 %; Platelet Count 278 k/uL (150-450); RDW 13.5 % (11.5-15.5); WBC 6.2 k/uL (3.8-10.6)
[2019-01-10] MEDS ORDERED: MORPHINE SULFATE 4 MG/ML SYRINGE IV STA (21:18)
[2019-01-10 21:24] LABS: ALT 16 U/L (9-52); AST 20 U/L (14-36); African American GFR (CKD) >90 (>60 ml/min/1.73 sqM); Alkaline Phosphatase 70 U/L (38-126); Anion Gap 10 mmol/L; Blood Urea Nitrogen 19 mg/dL (7-17); Carbon Dioxide 21 mmol/L (22-30); Chloride 112 mmol/L (98-107); Glucose 93 mg/dL (74-99); Potassium 4.1 mmol/L (3.5-5.1); Sodium 143 mmol/L (137-145); Total Bilirubin 0.3 mg/dL (0.2-1.3); Total Protein 6.9 g/dL (6.3-8.2)
--- NOTE | 2019-01-10 21:36 | US ---
EXAMINATION TYPE: US transvaginal DATE OF EXAM: 01/10/2019 COMPARISON: 08/25/2018 pelvic ultrasound CLINICAL HISTORY: Pain, R/O torsion. lt side pain. Patient states having right fallopian tube remove d due a cyst within. TECHNIQUE: Transvaginal (TV). Date of LMP: 11/28/2018, G0 EXAM MEASUREMENTS: Uterus: 6.0 x 3.6 x 2.9 cm Endometrial Stripe: 0.4 cm Right Ovary: 3.1 x 1.3 x 2.0 cm Limited exam due to patient being unable to tolerate 1. Uterus: Anteverted heterogenous with probable anterior uterine leiomyoma of the uterine fundus measuring 1.7 cm. 2. Endometrium: wnl 3. Right Ovary: follicles seen 4. Left Ovary: Obscured by overlying bowel gas, not visualized Spectral, color and waveform doppler imaging shows good arterial and venous flow within the right o vary; there is no evidence for right ovarian torsion. 5. Bilateral Adnexa: wnl 6. Posterior cul-de-sac: no free fluid Cervix- fluid seen within canal IMPRESSION: 1. Nonvisualization of the left ovary due to overlying bowel gas. 2. The right ovary demonstrates arterial and vascular flow without evidence of torsion on the examina tion. Multiple physiologic follicles are seen. 3. Heterogenous uterine myometrium with probable anterior fundal leiomyoma. This is not well seen on the prior of 08/25/2018 and therefore short-term follow-up could ensure no interval growth
[2019-01-10] MEDS ORDERED: HYDROmorphone 1 MG/ML 1 ML SYRINGE IVP STA (22:07)
[2019-01-10] MEDS ORDERED: HYDROcodone/APAP 7.5-325MG 1 EACH TAB PO ONE (22:41)
--- NOTE | 2019-01-10 23:53 | CT ---
EXAM: CT Abdomen and Pelvis Without Intravenous Contrast CLINICAL HISTORY: Abdomen pain. Hx endometriosis, polyps, cysts. TECHNIQUE: Axial computed tomography images of the abdomen and pelvis without intravenous contrast. DLP is 833.6 mGy-cm. This CT exam was performed using one or more of the following dose reduction techniques: automated exposure control, adjustment of the mA and/or kV according to patient size, and/or use of iterative reconstruction technique. Disclaimer: Lack of contrast decreases the sensitivity of this exam. COMPARISON: 06/07/18 FINDINGS: Lung bases: Unremarkable. No mass. No consolidation. ABDOMEN: Liver: Unremarkable. Gallbladder and bile ducts: Cholecystectomy clips. No ductal dilation. Pancreas: Unremarkable. No ductal dilation. Spleen: Unremarkable. No splenomegaly. Adrenals: Unremarkable. No mass. Kidneys and ureters: 2 mm nonobstructing midpole left renal stone. Stomach and bowel: Partial gastrectomy sutures. No obstruction. PELVIS: Appendix: Normal appendix. Bladder: Unremarkable. No stones. Reproductive: Unremarkable as visualized. ABDOMEN and PELVIS: Intraperitoneal space: Unremarkable. No free air. No significant fluid collection. Bones/joints: No acute fracture. No dislocation. Soft tissues: Unremarkable. Vasculature: Unremarkable. No abdominal aortic aneurysm. Lymph nodes: Unremarkable. No enlarged lymph nodes. IMPRESSION: 1. No acute findings. 2. 2 mm nonobstructing midpole left renal stone.
[2019-01-11] MEDS ORDERED: ONDANSETRON 4 MG/2 ML VIAL IVP STA (01:10)
[2019-01-11] MEDS ORDERED: HYDROmorphone 0.5 MG/0.5 ML SYRINGE IVP STA (01:15)
[2019-01-11 03:17] VITALS: BP 129/70; PULSE 95; RESP 18
== END 2019-01-11 02:06 | disposition home or self-care (01) ==
LOC: EC 18:20
DX: R10.2 Pelvic and perineal pain (principal); G40.909 Epilepsy, unspecified, not intractable, without status epilepticus; F41.0 Panic disorder [episodic paroxysmal anxiety]; Z88.0 Allergy status to penicillin; Z88.5 Allergy status to narcotic agent; Z79.899 Other long term (current) drug therapy; Z87.19 Personal history of other diseases of the digestive system; Z87.42 Personal history of other diseases of the female genital tract; Z90.49 Acquired absence of other specified parts of digestive tract; Z98.84 Bariatric surgery status; Z90.79 Acquired absence of other genital organ(s); Z80.0 Family history of malignant neoplasm of digestive organs
CPT/HCPCS: 36415; 80053; 85025; 81001; 81025; 93976; 76830; 74176; 99284; 96374; 96375 ×3; 96376; J2270; J2405; J1885; J1170 ×2

== ENCOUNTER → 2019-01-12 | Outpatient (CLI) | payer BC ==
--- NOTE | 2019-01-12 10:45 | US ---
EXAMINATION TYPE: US pelvic complete DATE OF EXAM: 01/12/2019 COMPARISON: US & CT 01/10/19 CLINICAL HISTORY: R10.2 Pelvic Pain, N80.9 Endometriosis. Pt states pelvic pain, more on left/ left o vary not visualized on TV in ER TECHNIQUE: Transabdominal (TA). Transabdominal sonographic images of the pelvis were acquired. Date of LMP: 12/27/2018 EXAM MEASUREMENTS: Uterus: 8.4 x 3.5 x 4.6 cm Endometrial Stripe: 0.4 cm Right Ovary: 3.4 x 2.3 x 2.3 cm Left Ovary: 2.5 x 2.3 x 1.6 cm 1. Uterus: Anteverted wnl 2. Endometrium: wnl 3. Right Ovary: wnl, follicles 4. Left Ovary: wnl, follicles 5. Bilateral Adnexa: wnl 6. Posterior cul-de-sac: wnl No abnormality visualized to account for pt's symptoms IMPRESSION: Unremarkable pelvic ultrasound.
== END | disposition home or self-care (01) ==
LOC: RADUSWWP 09:46
PROVIDERS: ATTEND Obstetrics & Gynecology
DX: N94.10 Unspecified dyspareunia (principal); N80.9 Endometriosis, unspecified
CPT/HCPCS: 76856

== ENCOUNTER 2019-01-14 23:01 | Emergency (ER) | payer BC ==
[2019-01-14 23:27] VITALS: RESP 18
[2019-01-14] MEDS ORDERED: ONDANSETRON 4 MG/2 ML VIAL IVP STA (23:56)
[2019-01-14] MEDS ORDERED: SODIUM CHLORIDE 0.9% 1,000 ML IV STA (23:56)
[2019-01-14] MEDS ORDERED: HYDROmorphone 1 MG/ML 1 ML SYRINGE IVP STA (23:56)
[2019-01-14] MEDS ORDERED: KETOROLAC 30 MG/ML 1 ML VIAL IVP STA (23:56)
[2019-01-14] MEDS ORDERED: SODIUM CHLORIDE 0.9% 500 ML 500 ML IV STA (23:56)
[2019-01-15 01:02] LABS: Appearance,Urine Cloudy (Clear); Bacteria,Urine Rare /hpf; Bilirubin,Urine Negative (Negative); Blood,Urine Negative (Negative); Color,Urine Yellow; Glucose,Urine (UA) Negative (Negative); Ketones,Urine Negative (Negative); Leukocyte Esterase,Urine Negative (Negative); Mucus,Urine Rare /hpf; Nitrite,Urine Negative (Negative); PH, Urine 6.5 (5.0-8.0); Protein,Urine Negative (Negative); Specific Gravity,Urine 1.018 (1.001-1.035); Squamous Epithelial Cell,Urine 3 /hpf (0-4); Urobilinogen,Urine <2.0 mg/dL (<2.0); WBC,Urine 1 /hpf (0-5)
--- NOTE | 2019-01-15 01:12 | XR ---
EXAM: XR Abdomen, 2 Views CLINICAL HISTORY: ITS.REASON XR Reason: abdominal pain TECHNIQUE: Frontal view of the abdomen/pelvis with upright view of the abdomen. COMPARISON: No relevant prior studies available. FINDINGS: Intraperitoneal space: No free air. Operative changes to the upper abdomen suggesting gastric sleeve procedure and cholecystectomy Gastrointestinal tract: Mild fecal retention. No dilation. Bones/joints: Unremarkable. IMPRESSION: Mild fecal retention
[2019-01-15 01:14] LABS: ALT 125 U/L (9-52); AST 31 U/L (14-36); African American GFR (CKD) >90 (>60 ml/min/1.73 sqM); Albumin 3.9 g/dL (3.5-5.0); Alkaline Phosphatase 88 U/L (38-126); Amylase 42 U/L (30-110); Anion Gap 8 mmol/L; Blood Urea Nitrogen 14 mg/dL (7-17); Carbon Dioxide 19 mmol/L (22-30); Chloride 115 mmol/L (98-107); Glucose 100 mg/dL (74-99); Lipase 208 U/L (23-300); Potassium 3.6 mmol/L (3.5-5.1); Sodium 142 mmol/L (137-145); Total Bilirubin 0.2 mg/dL (0.2-1.3); Total Protein 6.5 g/dL (6.3-8.2)
[2019-01-15] MEDS ORDERED: HYDROmorphone 1 MG/ML 1 ML SYRINGE IVP STA (01:14)
[2019-01-15 01:16] LABS: Basophils % (A) 0 %; Eosinophils # (A) 0.2 k/uL (0-0.7); Eosinophils % (A) 3 %; HGB 12.7 gm/dL (11.4-16.0); Lymphocytes # (A) 1.7 k/uL (1.0-4.8); Lymphocytes % (A) 21 %; MCH 30.3 pg (25.0-35.0); MCHC 32.4 g/dL (31.0-37.0); MCV 93.3 fL (80.0-100.0); Mean Platelet Volume 7.6; Monocytes # (A) 0.5 k/uL (0-1.0); Monocytes % (A) 6 %; Neutrophils # (A) 5.5 k/uL (1.3-7.7); Neutrophils % (A) 68 %; Platelet Count 289 k/uL (150-450); RBC 4.18 m/uL (3.80-5.40); RDW 14.6 % (11.5-15.5); WBC 8.1 k/uL (3.8-10.6)
--- NOTE | 2019-01-15 01:27 | ED ---
Abdominal Pain HPI - General Chief Complaint: Abdominal Pain Stated Complaint: Female , kidney stone Time Seen by Provider: 01/14/19 23:30 Source: patient Mode of arrival: ambulatory Limitations: no limitations - History of Present Illness Initial Comments: 28-year-old female patient with past medical history significant for endometriosis and ovarian cysts presents to the emergency department today for evaluation of left pelvic pain. Patient states that she's had this pain for the last 2-3 days. States she was seen and evaluated here in the emergency department she did undergo ultrasound and CAT scan was diagnosed with a ruptured ovarian cyst and a kidney stone. Patient states that she did see her HEALTH AND SAFETY INSPECTOR Dr. Pichardo who performed outpatient ultrasound which showed no abnormalities. Patient states that the pain has been a constant and severe to the left pelvic region. She does report some burning pain to the right flank region. Denies a ny hematuria, dysuria, urinary frequency, urinary urgency. Denies any fevers but states she has been chilled. Denies any nausea or vomiting. States that she does have a hysterectomy scheduled with Dr. Pichardo for her endometriosis. Patient denies any recent rash, shortness breath, chest pain, diarrhea, constipation, numbness, tingling, dizziness, weakness, headache, visual changes, or any other complaints. - Related Data Home Medications Medication Instructions Recorded Confirmed Zolpidem Tartrate [Ambien Cr] 12.5 mg PO HS 01/13/18 01/10/19 Metoclopramide HCl [Reglan] 5 mg PO BID 07/30/18 01/10/19 traMADol HCL [Ultram] 50 mg PO TID PRN 07/30/18 01/10/19 ALPRAZolam [Xanax] 1 mg PO HS PRN 10/01/18 01/10/19 Topiramate [Topamax] 100 mg PO BID 01/10/19 01/10/19 busPIRone HCL 15 mg PO TID 01/10/19 01/10/19 Previous Rx's Medication Instructions Recorded Ranitidine HCl [Zantac] 150 mg PO BID #60 tab 01/14/18 Hydrocodone/Acetaminophen [[place] 1 each PO Q6HR PRN #12 tab 01/11/19 5-325] Hydrocodone/Acetaminophen [[place] 1 tab PO Q6HR PRN #12 tab 01/15/19 5-325] Allergies Allergy/AdvReac Type Severity Reaction Status Date / Time amoxicillin [Amoxicillin] AdvReac Yeast Verified 01/14/19 23:27 Infection hydrocodone [From [place]] AdvReac Nausea & Verified 01/14/19 23:27 Vomiting Review of Systems ROS Statement: Those systems with pertinent positive or pertinent negative responses have been documented in the HPI. ROS Other: All systems not noted in ROS Statement are negative. Past Medical History Past Medical History: GERD/Reflux, Seizure Disorder Additional Past Medical History / Comment(s): epigastric pain, nauseated, last seizure week & half ago, placed on atenolol recently for fast heart rate, intermittent vertigo, hx. elevated liver enzymes for unknown reason 2016 History of Any Multi-Drug Resistant Organisms: None Reported Past Surgical History: Bariatric Surgery, Cholecystectomy, Orthopedic Surgery Additional Past Surgical History / Comment(s): LEFT FOOT SX, Right fallopian tube removed; SLEEVE GASTRECTOMY; EGD W DILATION, LAPAROSCOPIC EXAM Past Anesthesia/Blood Transfusion Reactions: Motion Sickness, Postoperative Nausea & Vomiting (PONV) Past Psychological History: Panic Disorder Smoking Status: Never smoker Past Alcohol Use History: None Reported Past Drug Use History: None Reported - Past Family History Sister(s) Family Medical History: Cancer, Deep Vein Thrombosis (DVT) Additional Family Medical History / Comment(s): Cervical cancer Mother Family Medical History: Hyperlipidemia Additional Family Medical History / Comment(s): HEART PROBLEMS, IRREG RYTHM Father Family Medical History: Hyperlipidemia, Hypertension Additional Family Medical History / Comment(s): Paternal grandfather had kidney disorder and colon cancer. General Exam Limitations: no limitations General appearance: alert, in no apparent distress, other (This is a well- developed, well-nourished adult female patient in no acute distress. Vital signs upon presentation are temperature 97.9F, pulse 126, respirations 18, blood pressure 123/81, pulse ox 100% on room air.) Eye exam: Present: normal appearance, PERRL, EOMI. Absent: scleral icterus, conjunctival injection, periorbital swelling ENT exam: Present: normal exam, normal oropharynx, mucous membranes moist Respiratory exam: Present: normal lung sounds bilaterally. Absent: respiratory distress, wheezes, rales, rhonchi, stridor Cardiovascular Exam: Present: regular rate, normal rhythm, normal heart sounds. Absent: systolic murmur, diastolic murmur, rubs, gallop, clicks GI/Abdominal exam: Present: soft, tenderness (Left pelvic tenderness), normal bowel sounds. Absent: distended, guarding, rebound, rigid Neurological exam: Present: alert, oriented X3, CN II-XII intact Psychiatric exam: Present: normal affect, normal mood Skin exam: Present: warm, dry, intact, normal color. Absent: rash Course Vital Signs 01/14/19 01/15/19 23:24 00:29 Temperature 97.9 F Pulse Rate 126 H 123 H Respiratory 18 18 Rate Blood Pressure 123/81 142/96 O2 Sat by Pulse 100 98 Oximetry Medical Decision Making - Medical Decision Making 28-year-old female patient presents to the emergency department today for evaluation of left lower quadrant abdominal pain. Physical examination did r eveal tenderness to the left lower quadrant. Mild right CVA tenderness. Labs reviewed and are unremarkable. Urinalysis negative for any evidence of infection. Patient did undergo outpatient transvaginal and transabdominal ultrasound yesterday which showed no acute abnormalities. 2 days ago she did undergo additional ultrasound and CT abdomen and pelvis which also showed no acute abnormalities. Patient states her pain has been the same since its onset on Saturday. She is afebrile, vital signs. Patient does have a history of chronic abdominal pain with diagnosis of endometriosis. She is scheduled to have a hysterectomy in February 12. She does admit that she was recently on a trip to [place] and left her prescription of pain medication there. She will be discharged home at this time of pain medication. She is instructed to follow-up with her HEALTH AND SAFETY INSPECTOR and her primary care physician for recheck as soon as possible. Return parameters were discussed in detail. She verbalizes understanding and agrees with this plan. - Lab Data Result diagrams: 01/15/19 00:15 01/15/19 00:15 Lab Results 01/15/19 01/15/19 01/15/19 Range/Units 00:15 00:15 00:15 WBC 8.1 (3.8-10.6) k/uL RBC 4.18 (3.80-5.40) m/uL Hgb 12.7 (11.4-16.0) gm/dL Hct 39.0 (34.0-46.0) % MCV 93.3 (80.0-100.0) fL MCH 30.3 (25.0-35.0) pg MCHC 32.4 (31.0-37.0) g/dL RDW 14.6 (11.5-15.5) % Plt Count 289 (150-450) k/uL Neutrophils % 68 % Lymphocytes % 21 % Monocytes % 6 % Eosinophils % 3 % Basophils % 0 % Neutrophils # 5.5 (1.3-7.7) k/uL Lymphocytes # 1.7 (1.0-4.8) k/uL Monocytes # 0.5 (0-1.0) k/uL Eosinophils # 0.2 (0-0.7) k/uL Basophils # 0.0 (0-0.2) k/uL Sodium 142 (137-145) mmol/L Potassium 3.6 (3.5-5.1) mmol/L Chloride 115 H (98-107) mmol/L Carbon Dioxide 19 L (22-30) mmol/L Anion Gap 8 mmol/L BUN 14 (7-17) mg/dL Creatinine 0.76 (0.52-1.04) mg/dL Est GFR (CKD-EPI)AfAm >90 (>60 ml/min/1.73 sqM) Est GFR (CKD-EPI)NonAf >90 (>60 ml/min/1.73 sqM) Glucose 100 H (74-99) mg/dL Calcium 9.0 (8.4-10.2) mg/dL Total Bilirubin 0.2 (0.2-1.3) mg/dL AST 31 (14-36) U/L ALT 125 H (9-52) U/L Alkaline Phosphatase 88 (38-126) U/L Total Protein 6.5 (6.3-8.2) g/dL Albumin 3.9 (3.5-5.0) g/dL Amylase 42 (30-110) U/L Lipase 208 (23-300) U/L Urine Color Urine Appearance (Clear) Urine pH (5.0-8.0) Ur Specific [place] (1.001-1.035) Urine Protein (Negative) Urine Glucose (UA) (Negative) Urine Ketones (Negative) Urine Blood (Negative) Urine Nitrite (Negative) Urine Bilirubin (Negative) Urine Urobilinogen (<2.0) mg/dL Ur Leukocyte Esterase (Negative) Urine WBC (0-5) /hpf Ur Squamous Epith Cells (0-4) /hpf Urine Bacteria (None) /hpf Urine Mucus (None) /hpf Urine HCG, Qual Not Detected (Not Detectd) 01/15/19 Range/Units 00:15 WBC (3.8-10.6) k/uL RBC (3.80-5.40) m/uL Hgb (11.4-16.0) gm/dL Hct (34.0-46.0) % MCV (80.0-100.0) fL MCH (25.0-35.0) pg MCHC (31.0-37.0) g/dL RDW (11.5-15.5) % Plt Count (150-450) k/uL Neutrophils % % Lymphocytes % % Monocytes % % Eosinophils % % Basophils % % Neutrophils # (1.3-7.7) k/uL Lymphocytes # (1.0-4.8) k/uL Monocytes # (0-1.0) k/uL Eosinophils # (0-0.7) k/uL Basophils # (0-0.2) k/uL Sodium (137-145) mmol/L Potassium (3.5-5.1) mmol/L Chloride (98-107) mmol/L Carbon Dioxide (22-30) mmol/L Anion Gap mmol/L BUN (7-17) mg/dL Creatinine (0.52-1.04) mg/dL Est GFR (CKD-EPI)AfAm (>60 ml/min/1.73 sqM) Est GFR (CKD-EPI)NonAf (>60 ml/min/1.73 sqM) Glucose (74-99) mg/dL Calcium (8.4-10.2) mg/dL Total Bilirubin (0.2-1.3) mg/dL AST (14-36) U/L ALT (9-52) U/L Alkaline Phosphatase (38-126) U/L Total Protein (6.3-8.2) g/dL Albumin (3.5-5.0) g/dL Amylase (30-110) U/L Lipase (23-300) U/L Urine Color Yellow Urine Appearance Cloudy H (Clear) Urine pH 6.5 (5.0-8.0) Ur Specific [place] 1.018 (1.001-1.035) Urine Protein Negative (Negative) Urine Glucose (UA) Negative (Negative) Urine Ketones Negative (Negative) Urine Blood Negative (Negative) Urine Nitrite Negative (Negative) Urine Bilirubin Negative (Negative) Urine Urobilinogen <2.0 (<2.0) mg/dL Ur Leukocyte Esterase Negative (Negative) Urine WBC 1 (0-5) /hpf Ur Squamous Epith Cells 3 (0-4) /hpf Urine Bacteria Rare H (None) /hpf Urine Mucus Rare H (None) /hpf Urine HCG, Qual (Not Detectd) - Radiology Data Radiology results: report reviewed, image reviewed Two-view x-ray of the abdomen is obtained. Report was reviewed in its entirety. Impression by Dr. Carrillo shows mild fecal retention. Disposition Clinical Impression: Pelvic pain Disposition: HOME SELF-CARE Condition: Good Instructions (If sedation given, give patient instructions): Pelvic Pain in Women (ED) Additional Instructions: Follow up with your primary care physician for recheck in 1-2 days. Return to the emergency department for recheck for any new, worsening, or concerning symptoms. Prescriptions: Hydrocodone/Acetaminophen [[place] 5-325] 1 tab PO Q6HR PRN #12 tab PRN Reason: Pain Is patient prescribed a controlled substance at d/c from ED?: Yes When asked, does pt state using other controlled substances?: Yes If prescribed controlled substance>3 days was MAPS reviewed?: Prescribed <3 Days If opioid is for acute pain is fill amount 7 days or less?: Yes If Rx opioid, was Start Talking consent form obtained?: Yes Referrals: Jacinto Olivares MD [Primary Care Provider] - 1-2 days Pippa Pichardo DO [Doctor of Osteopathic Medicine] - 1-2 days Time of Disposition: 02:30
[2019-01-15] MEDS ORDERED: MORPHINE SULFATE 4 MG/ML SYRINGE IVP STA (02:30)
[2019-01-15 02:56] VITALS: BP 126/72; PULSE 117; TEMP 97.7
== END 2019-01-15 03:21 | disposition home or self-care (01) ==
LOC: EC 23:01
DX: R10.2 Pelvic and perineal pain (principal); G40.909 Epilepsy, unspecified, not intractable, without status epilepticus; Z87.42 Personal history of other diseases of the female genital tract; Z98.84 Bariatric surgery status; Z90.49 Acquired absence of other specified parts of digestive tract; Z90.79 Acquired absence of other genital organ(s); Z79.899 Other long term (current) drug therapy; Z88.5 Allergy status to narcotic agent; Z88.0 Allergy status to penicillin
CPT/HCPCS: 36415; 74018; 80053; 81001; 81025; 82150; 83690; 85025; 96361; 96374; 96375; 96376; 99285

== ENCOUNTER 2019-01-17 15:24 | Emergency (ER) | payer BC ==
[2019-01-17 15:46] VITALS: RESP 16
[2019-01-17] MEDS ORDERED: SODIUM CHLORIDE 0.9% 1,000 ML IV STA (15:57)
[2019-01-17] MEDS ORDERED: KETOROLAC 30 MG/ML 1 ML VIAL IVP STA (15:58)
[2019-01-17] MEDS ORDERED: MECLIZINE 12.5 MG TAB PO STA (15:58)
[2019-01-17 16:50] LABS: Basophils % (A) 0 %; Eosinophils # (A) 0.2 k/uL (0-0.7); Eosinophils % (A) 2 %; HCT 38.8 % (34.0-46.0); HGB 12.7 gm/dL (11.4-16.0); Lymphocytes # (A) 1.4 k/uL (1.0-4.8); Lymphocytes % (A) 19 %; MCH 29.8 pg (25.0-35.0); MCHC 32.7 g/dL (31.0-37.0); MCV 91.2 fL (80.0-100.0); Mean Platelet Volume 6.7; Monocytes # (A) 0.4 k/uL (0-1.0); Monocytes % (A) 6 %; Neutrophils % (A) 69 %; Platelet Count 273 k/uL (150-450); RBC 4.25 m/uL (3.80-5.40); RDW 13.4 % (11.5-15.5); WBC 7.2 k/uL (3.8-10.6)
[2019-01-17 16:50] LABS: Appearance,Urine Clear (Clear); Bilirubin,Urine Negative (Negative); Blood,Urine Negative (Negative); Color,Urine Light Yellow; Glucose,Urine (UA) Negative (Negative); Ketones,Urine Negative (Negative); Leukocyte Esterase,Urine Negative (Negative); Nitrite,Urine Negative (Negative); PH, Urine 7.5 (5.0-8.0); Protein,Urine Negative (Negative); Specific Gravity,Urine 1.013 (1.001-1.035); Urobilinogen,Urine <2.0 mg/dL (<2.0)
[2019-01-17] MEDS ORDERED: HYDROmorphone 1 MG/ML 1 ML SYRINGE IVP STA (16:55)
[2019-01-17] MEDS ORDERED: ONDANSETRON 4 MG/2 ML VIAL IVP STA (16:56)
[2019-01-17 17:03] LABS: ALT 149 U/L (9-52); AST 43 U/L (14-36); African American GFR (CKD) >90 (>60 ml/min/1.73 sqM); Albumin 4.1 g/dL (3.5-5.0); Alkaline Phosphatase 99 U/L (38-126); Anion Gap 9 mmol/L; Blood Urea Nitrogen 14 mg/dL (7-17); Carbon Dioxide 21 mmol/L (22-30); Chloride 113 mmol/L (98-107); Glucose 82 mg/dL (74-99); Sodium 143 mmol/L (137-145); Total Bilirubin 0.3 mg/dL (0.2-1.3); Total Protein 6.9 g/dL (6.3-8.2)
[2019-01-17 17:24] VITALS: PULSE 92
[2019-01-17] MEDS ORDERED: TOPIRAMATE 100 MG TAB PO ONE (17:27)
--- NOTE | 2019-01-17 18:13 | ED ---
General Adult HPI - General Chief complaint: Dizziness Stated complaint: Dizziness Time Seen by Provider: 01/17/19 15:42 Source: patient Mode of arrival: wheelchair Limitations: no limitations - History of Present Illness Initial comments: Patient is a 28-year-old female presenting to emergency Department with complaints of dizziness and nausea times one day. Patient states she is also having severe left lower quadrant pain that she has been dealing with for weeks now. Patient has been in the ER twice in the last week, the most recent 2 days ago, for left lower quadrant pain. Patient is set to have a hysterectomy on February 12 the states her pain has been so intense that she thinks is causing her to become nauseous and dizzy. Patient denies having fever, chills, vomiting, diarrhea. Patient states she is unable to get ahold her surgeon, Dr. Pichardo or her PCP and wants us to get a hold of them. No other complaints at this time. - Related Data Home Medications Medication Instructions Recorded Confirmed Zolpidem Tartrate [Ambien Cr] 12.5 mg PO HS 01/13/18 01/17/19 Metoclopramide HCl [Reglan] 5 mg PO BID 07/30/18 01/17/19 ALPRAZolam [Xanax] 1 mg PO HS PRN 10/01/18 01/17/19 Topiramate [Topamax] 100 mg PO BID 01/10/19 01/17/19 busPIRone HCL 15 mg PO TID 01/10/19 01/17/19 Previous Rx's Medication Instructions Recorded Ranitidine HCl [Zantac] 150 mg PO BID #60 tab 01/14/18 Allergies Allergy/AdvReac Type Severity Reaction Status Date / Time amoxicillin [Amoxicillin] AdvReac Yeast Verified 01/17/19 17:07 Infection hydrocodone [From [place]] AdvReac Nausea & Verified 01/17/19 17:07 Vomiting Review of Systems ROS Statement: Those systems with pertinent positive or pertinent negative responses have been documented in the HPI. ROS Other: All systems not noted in ROS Statement are negative. Past Medical History Past Medical History: GERD/Reflux, Seizure Disorder Additional Past Medical History / Comment(s): epigastric pain, nauseated, last seizure week & half ago, placed on atenolol recently for fast heart rate, intermittent vertigo, hx. elevated liver enzymes for unknown reason 2017 History of Any Multi-Drug Resistant Organisms: None Reported Past Surgical History: Bariatric Surgery, Cholecystectomy, Orthopedic Surgery Additional Past Surgical History / Comment(s): LEFT FOOT SX, Right fallopian tube removed; SLEEVE GASTRECTOMY; EGD W DILATION, LAPAROSCOPIC EXAM Past Anesthesia/Blood Transfusion Reactions: Motion Sickness, Postoperative Nausea & Vomiting (PONV) Past Psychological History: Panic Disorder Smoking Status: Never smoker Past Alcohol Use History: None Reported Past Drug Use History: None Reported - Past Family History Sister(s) Family Medical History: Cancer, Deep Vein Thrombosis (DVT) Additional Family Medical History / Comment(s): Cervical cancer Mother Family Medical History: Hyperlipidemia Additional Family Medical History / Comment(s): HEART PROBLEMS, IRREG RYTHM Father Family Medical History: Hyperlipidemia, Hypertension Additional Family Medical History / Comment(s): Paternal grandfather had kidney disorder and colon cancer. General Exam - General Exam Comments Initial Comments: GENERAL: Well-appearing, well-nourished and in no acute distress. HEAD: Atraumatic, normocephalic. EYES: Pupils equal round and reactive to light, extraocular movements intact, sclera anicteric, conjunctiva are normal. ENT: Nares patent, oropharynx clear without exudates. Moist mucous membranes. NECK: Normal range of motion, supple without lymphadenopathy or JVD. LUNGS: Breath sounds clear to auscultation bilaterally and equal. No wheezes rales or rhonchi. HEART: Regular rate and rhythm without murmurs, rubs or gallops. ABDOMEN: Tender to the left lower quadrant with guarding. Soft, normoactive bowel sounds. No masses appreciated. : Deferred EXTREMITIES: Normal range of motion, no pitting or edema. No clubbing or cyanosis. NEUROLOGICAL: Cranial nerves II through XII grossly intact. Normal speech, normal gait. PSYCH: Normal mood, normal affect. SKIN: Warm, Dry, normal turgor, no rashes or lesions noted. Limitations: no limitations Neurological exam: Present: alert, altered, oriented X3, normal gait Expanded Motor strength exam: RUE: 5, LUE: 5, RLE: 5, LLE: 5 Course Vital Signs 01/17/19 01/17/19 15:43 17:23 Temperature 98.1 F Pulse Rate 104 H 92 Respiratory 16 16 Rate Blood Pressure 144/87 142/92 O2 Sat by Pulse 100 100 Oximetry Medical Decision Making - Medical Decision Making Patient is a 28-year-old female with complaints of dizziness and left lower quadrant pain. Patient has been here multiple times in the last week for the left lower quadrant pain. Patient is set to have a hysterectomy February 12. Patient states she was feeling dizzy today secondary to the pain. Her exam was normal except for the left lower quadrant pain. Patient denies fever, chills, vomiting, diarrhea. CBC, CMP, urine were all within normal limits today. Vital signs have been stable, Afebrile. Recent CT of the abdomen and KUB images were reviewed. Discussed with patient that she needs to follow up with Dr. Pichardo on Saturday. Discussed alternating Tylenol and Motrin for pain relief. Patient was given [place]'s 2 days ago, therefore no narcotics will be given today. Case discussed with Dr. Lerma who is in agreement with this plan of care. Zane hodge will be discharged home. - Lab Data Result diagrams: 01/17/19 16:24 01/17/19 16:24 Lab Results 01/17/19 01/17/19 01/17/19 Range/Units 16:24 16:24 16:30 WBC 7.2 (3.8-10.6) k/uL RBC 4.25 (3.80-5.40) m/uL Hgb 12.7 (11.4-16.0) gm/dL Hct 38.8 (34.0-46.0) % MCV 91.2 (80.0-100.0) fL MCH 29.8 (25.0-35.0) pg MCHC 32.7 (31.0-37.0) g/dL RDW 13.4 (11.5-15.5) % Plt Count 273 (150-450) k/uL Neutrophils % 69 % Lymphocytes % 19 % Monocytes % 6 % Eosinophils % 2 % Basophils % 0 % Neutrophils # 5.0 (1.3-7.7) k/uL Lymphocytes # 1.4 (1.0-4.8) k/uL Monocytes # 0.4 (0-1.0) k/uL Eosinophils # 0.2 (0-0.7) k/uL Basophils # 0.0 (0-0.2) k/uL Sodium 143 (137-145) mmol/L Potassium 4.0 (3.5-5.1) mmol/L Chloride 113 H (98-107) mmol/L Carbon Dioxide 21 L (22-30) mmol/L Anion Gap 9 mmol/L BUN 14 (7-17) mg/dL Creatinine 0.87 (0.52-1.04) mg/dL Est GFR (CKD-EPI)AfAm >90 (>60 ml/min/1.73 sqM) Est GFR (CKD-EPI)NonAf 90 (>60 ml/min/1.73 sqM) Glucose 82 (74-99) mg/dL Calcium 9.0 (8.4-10.2) mg/dL Total Bilirubin 0.3 (0.2-1.3) mg/dL AST 43 H (14-36) U/L ALT 149 H (9-52) U/L Alkaline Phosphatase 99 (38-126) U/L Total Protein 6.9 (6.3-8.2) g/dL Albumin 4.1 (3.5-5.0) g/dL Urine Color Light Yellow Urine Appearance Clear (Clear) Urine pH 7.5 (5.0-8.0) Ur Specific [place] 1.013 (1.001-1.035) Urine Protein Negative (Negative) Urine Glucose (UA) Negative (Negative) Urine Ketones Negative (Negative) Urine Blood Negative (Negative) Urine Nitrite Negative (Negative) Urine Bilirubin Negative (Negative) Urine Urobilinogen <2.0 (<2.0) mg/dL Ur Leukocyte Esterase Negative (Negative) Disposition Clinical Impression: Abdominal pain, Dizziness Disposition: HOME SELF-CARE Condition: Stable Instructions (If sedation given, give patient instructions): Abdominal Pain (ED) Additional Instructions: Please return to the Emergency Department if symptoms worsen or any other concerns. Follow-up with Dr. Pichardo on Saturday. Is patient prescribed a controlled substance at d/c from ED?: No Referrals: Jacinto Olivares MD [Primary Care Provider] - 1-2 days Pippa Pichardo DO [Doctor of Osteopathic Medicine] - 1-2 days
[2019-01-17 20:13] VITALS: BP 132/79; TEMP 97.9
== END 2019-01-17 20:00 | disposition home or self-care (01) ==
LOC: EC 15:24
DX: R42 Dizziness and giddiness (principal); R10.32 Left lower quadrant pain; R11.0 Nausea; K21.9 Gastro-esophageal reflux disease without esophagitis; G40.909 Epilepsy, unspecified, not intractable, without status epilepticus; F41.0 Panic disorder [episodic paroxysmal anxiety]; Z80.0 Family history of malignant neoplasm of digestive organs; Z88.0 Allergy status to penicillin; Z88.5 Allergy status to narcotic agent; Z79.899 Other long term (current) drug therapy; Z90.49 Acquired absence of other specified parts of digestive tract; Z98.84 Bariatric surgery status
CPT/HCPCS: 36415; 80053; 85025; 81003; 99284; 96374; 96375 ×2; 96361; J2405; J1885; J1170

== ENCOUNTER 2019-01-23 12:54 | Observation (INO) | payer BC ==
[2019-01-23] MEDS ORDERED: LORazepam 2 MG/ML INJ IV STA (13:13)
--- NOTE | 2019-01-23 13:21 | ED ---
General Adult HPI - General Chief complaint: Syncope Stated complaint: syncope Time Seen by Provider: 01/23/19 13:05 Source: patient Mode of arrival: wheelchair Limitations: no limitations - History of Present Illness Initial comments: Dictation was produced using [employer] dictation software. please excuse any grammatical, word or spelling errors. Chief Complaint: 28-year-old female presents with episode of syncope today. History of Present Illness: [id number] female she was diagnosed with seizure versus epilepsy 5 months ago. Patient takes milligrams of Topamax twice a day. Patient states this morning she woke up and had multiple facial twitching episodes. She then woke up on the ground. She states she did have urinary incontinence. Patient did report some taste of blood in her mouth. Patient states last time she had a seizure was in September. She reports that her neurologist is Dr. Sun. She has not seen a neurologist in several months denies any recent increased stress, denies any insomnia or lack of sleep. She patient states she's been eating normally. Patient is not or . The ROS documented in this emergency department record has been reviewed and confirmed by me. Those systems with pertinent positive or negative responses have been documented in the HPI. All other systems are other negative and/or noncontributory. PHYSICAL EXAM: General Impression: Alert and oriented x3, not in acute distress, actively having facial twitching episodes HEENT: Normocephalic atraumatic, extra-ocular movements intact, pupils equal and reactive to light bilaterally, mucous membranes moist, right lateral tongue avulsions Cardiovascular: Heart regular rate and rhythm, S1&S2 audible, no murmurs, rubs or gallops Chest: Lungs clear to auscultation bilaterally, no rhonchi, no wheeze, no rales Abdomen: Bowel sounds present, abdomen soft, non-tender, non-distended, no organomegaly Musculoskeletal: Pulses present and equal in all extremities, no peripheral edema Motor: no focal deficits noted Neurological: CN II-XII grossly intact, no focal motor or sensory deficits noted Skin: Intact with no visualized rashes Psych: Normal affect and mood ED course: 28-year-old female presents with clinical presentation consistent with seizure. Patient continues to have twitching episodes to her face. On arrival shows heart rate of 119 cumbersome vital signs within acceptable limits. Given the patient is having active twitching episodes is concern of active non- generalized seizure at this time. Patient given 2 mg of Ativan. Seizure precautions ordered Laboratory evaluation obtained. CBC unremarkable. Chemistry panel shows anion gap acidosis. His likely secondary to lactic acidosis. From seizure. Urinalysis is positive for 14 white blood cells with 30 cacciatore patient denies any urinary symptoms. Any urine culture. She'll be admitted for seizures. The concern that patient's seizures are more complex and noncompliance to medications. Neurology be on consult. Discussed patient case with Dr. Talley who was instructional technology coach for Dr. Burt. - Related Data Home Medications Medication Instructions Recorded Confirmed Zolpidem Tartrate [Ambien Cr] 12.5 mg PO HS 01/13/18 01/23/19 Metoclopramide HCl [Reglan] 5 mg PO BID 07/30/18 01/23/19 ALPRAZolam [Xanax] 1 mg PO HS PRN 10/01/18 01/23/19 Topiramate [Topamax] 100 mg PO BID 01/10/19 01/23/19 busPIRone HCL 15 mg PO TID 01/10/19 01/23/19 traMADol HCl [Ultram] 50 mg PO BID PRN 01/23/19 01/23/19 Previous Rx's Medication Instructions Recorded Ranitidine HCl [Zantac] 150 mg PO BID #60 tab 01/14/18 Allergies Allergy/AdvReac Type Severity Reaction Status Date / Time amoxicillin [Amoxicillin] AdvReac Yeast Verified 01/23/19 14:24 Infection hydrocodone [From [place]] AdvReac Nausea & Verified 01/23/19 14:24 Vomiting Review of Systems ROS Statement: Those systems with pertinent positive or pertinent negative responses have been documented in the HPI. ROS Other: All systems not noted in ROS Statement are negative. Past Medical History Past Medical History: GERD/Reflux, Seizure Disorder Additional Past Medical History / Comment(s): epigastric pain, nauseated, last seizure week & half ago, placed on atenolol recently for fast heart rate, interm ittent vertigo, hx. elevated liver enzymes for unknown reason 2016 History of Any Multi-Drug Resistant Organisms: None Reported Past Surgical History: Bariatric Surgery, Cholecystectomy, Orthopedic Surgery Additional Past Surgical History / Comment(s): LEFT FOOT SX, Right fallopian tube removed; SLEEVE GASTRECTOMY; EGD W DILATION, LAPAROSCOPIC EXAM Past Anesthesia/Blood Transfusion Reactions: Motion Sickness, Postoperative Nausea & Vomiting (PONV) Past Psychological History: Panic Disorder Smoking Status: Never smoker Past Alcohol Use History: None Reported Past Drug Use History: None Reported - Past Family History Sister(s) Family Medical History: Cancer, Deep Vein Thrombosis (DVT) Additional Family Medical History / Comment(s): Cervical cancer Mother Family Medical History: Hyperlipidemia Additional Family Medical History / Comment(s): HEART PROBLEMS, IRREG RYTHM Father Family Medical History: Hyperlipidemia, Hypertension Additional Family Medical History / Comment(s): Paternal grandfather had kidney disorder and colon cancer. General Exam Limitations: no limitations Course Vital Signs 01/23/19 13:00 Temperature 98.4 F Pulse Rate 119 H Respiratory 18 Rate Blood Pressure 132/87 O2 Sat by Pulse 100 Oximetry Medical Decision Making - Lab Data Result diagrams: 01/23/19 13:25 01/23/19 13:25 Lab Results 01/23/19 01/23/19 01/23/19 Range/Units 13:25 13:25 13:35 WBC 10.0 (3.8-10.6) k/uL RBC 4.50 (3.80-5.40) m/uL Hgb 13.4 (11.4-16.0) gm/dL Hct 41.6 (34.0-46.0) % MCV 92.3 (80.0-100.0) fL MCH 29.8 (25.0-35.0) pg MCHC 32.2 (31.0-37.0) g/dL RDW 13.4 (11.5-15.5) % Plt Count 270 (150-450) k/uL Neutrophils % 83 % Lymphocytes % 9 % Monocytes % 4 % Eosinophils % 1 % Basophils % 0 % Neutrophils # 8.3 H (1.3-7.7) k/uL Lymphocytes # 0.9 L (1.0-4.8) k/uL Monocytes # 0.4 (0-1.0) k/uL Eosinophils # 0.1 (0-0.7) k/uL Basophils # 0.0 (0-0.2) k/uL Sodium 140 (137-145) mmol/L Potassium 4.3 (3.5-5.1) mmol/L Chloride 113 H (98-107) mmol/L Carbon Dioxide 13 L (22-30) mmol/L Anion Gap 14 mmol/L BUN 14 (7-17) mg/dL Creatinine 0.89 (0.52-1.04) mg/dL Est GFR (CKD-EPI)AfAm >90 (>60 ml/min/1.73 sqM) Est GFR (CKD-EPI)NonAf 87 (>60 ml/min/1.73 sqM) Glucose 90 (74-99) mg/dL Calcium 8.9 (8.4-10.2) mg/dL Magnesium 2.0 (1.6-2.3) mg/dL Urine Color Urine Appearance (Clear) Urine pH (5.0-8.0) Ur Specific [place] (1.001-1.035) Urine Protein (Negative) Urine Glucose (UA) (Negative) Urine Ketones (Negative) Urine Blood (Negative) Urine Nitrite (Negative) Urine Bilirubin (Negative) Urine Urobilinogen (<2.0) mg/dL Ur Leukocyte Esterase (Negative) Urine RBC (0-5) /hpf Urine WBC (0-5) /hpf Ur Squamous Epith Cells (0-4) /hpf Amorphous Sediment (None) /hpf Urine Bacteria (None) /hpf Hyaline Casts (0-2) /lpf Urine Mucus (None) /hpf Urine HCG, Qual Not Detected (Not Detectd) 01/23/19 Range/Units 13:35 WBC (3.8-10.6) k/uL RBC (3.80-5.40) m/uL Hgb (11.4-16.0) gm/dL Hct (34.0-46.0) % MCV (80.0-100.0) fL MCH (25.0-35.0) pg MCHC (31.0-37.0) g/dL RDW (11.5-15.5) % Plt Count (150-450) k/uL Neutrophils % % Lymphocytes % % Monocytes % % Eosinophils % % Basophils % % Neutrophils # (1.3-7.7) k/uL Lymphocytes # (1.0-4.8) k/uL Monocytes # (0-1.0) k/uL Eosinophils # (0-0.7) k/uL Basophils # (0-0.2) k/uL Sodium (137-145) mmol/L Potassium (3.5-5.1) mmol/L Chloride (98-107) mmol/L Carbon Dioxide (22-30) mmol/L Anion Gap mmol/L BUN (7-17) mg/dL Creatinine (0.52-1.04) mg/dL Est GFR (CKD-EPI)AfAm (>60 ml/min/1.73 sqM) Est GFR (CKD-EPI)NonAf (>60 ml/min/1.73 sqM) Glucose (74-99) mg/dL Calcium (8.4-10.2) mg/dL Magnesium (1.6-2.3) mg/dL Urine Color Yellow Urine Appearance Turbid H (Clear) Urine pH 7.5 (5.0-8.0) Ur Specific [place] 1.018 (1.001-1.035) Urine Protein 1+ H (Negative) Urine Glucose (UA) Negative (Negative) Urine Ketones Negative (Negative) Urine Blood Negative (Negative) Urine Nitrite Negative (Negative) Urine Bilirubin Negative (Negative) Urine Urobilinogen <2.0 (<2.0) mg/dL Ur Leukocyte Esterase Moderate H (Negative) Urine RBC 4 (0-5) /hpf Urine WBC 14 H (0-5) /hpf Ur Squamous Epith Cells 5 H (0-4) /hpf Amorphous Sediment Few H (None) /hpf Urine Bacteria Occasional H (None) /hpf Hyaline Casts 4 H (0-2) /lpf Urine Mucus Occasional H (None) /hpf Urine HCG, Qual (Not Detectd) Disposition Clinical Impression: Seizure Disposition: ADMITTED IP TO THIS [facility] Condition: Fair Referrals: Jacinto Olivares MD [Primary Care Provider] - 1-2 days Decision Time: 15:31
[2019-01-23 13:37] LABS: Basophils % (A) 0 %; Eosinophils # (A) 0.1 k/uL (0-0.7); Eosinophils % (A) 1 %; HCT 41.6 % (34.0-46.0); HGB 13.4 gm/dL (11.4-16.0); Lymphocytes # (A) 0.9 k/uL (1.0-4.8); Lymphocytes % (A) 9 %; MCH 29.8 pg (25.0-35.0); MCHC 32.2 g/dL (31.0-37.0); MCV 92.3 fL (80.0-100.0); Mean Platelet Volume 6.6; Monocytes # (A) 0.4 k/uL (0-1.0); Monocytes % (A) 4 %; Neutrophils # (A) 8.3 k/uL (1.3-7.7); Neutrophils % (A) 83 %; Platelet Count 270 k/uL (150-450); RDW 13.4 % (11.5-15.5)
[2019-01-23 13:49] LABS: African American GFR (CKD) >90 (>60 ml/min/1.73 sqM); Anion Gap 14 mmol/L; Blood Urea Nitrogen 14 mg/dL (7-17); Calcium 8.9 mg/dL (8.4-10.2); Carbon Dioxide 13 mmol/L (22-30); Chloride 113 mmol/L (98-107); Glucose 90 mg/dL (74-99); Sodium 140 mmol/L (137-145)
[2019-01-23 13:55] LABS: Potassium 4.3 mmol/L (3.5-5.1)
[2019-01-23 14:17] LABS: Amorphous Sediment,Urine Few /hpf; Appearance,Urine Turbid (Clear); Bacteria,Urine Occasional /hpf; Bilirubin,Urine Negative (Negative); Blood,Urine Negative (Negative); Color,Urine Yellow; Glucose,Urine (UA) Negative (Negative); Hyaline Casts,Urine 4 /lpf (0-2); Ketones,Urine Negative (Negative); Leukocyte Esterase,Urine Moderate (Negative); Mucus,Urine Occasional /hpf; Nitrite,Urine Negative (Negative); PH, Urine 7.5 (5.0-8.0); Protein,Urine 1+ (Negative); RBC,Urine 4 /hpf (0-5); Specific Gravity,Urine 1.018 (1.001-1.035); Squamous Epithelial Cell,Urine 5 /hpf (0-4); Urobilinogen,Urine <2.0 mg/dL (<2.0)
[2019-01-23] MEDS ORDERED: ONDANSETRON 4 MG/2 ML VIAL IVP STA (15:27)
[2019-01-23] MEDS ORDERED: ACETAMINOPHEN TAB 325 MG TAB PO PRN (15:28)
[2019-01-23] MEDS ORDERED: ONDANSETRON 4 MG/2 ML VIAL IVP PRN (15:28)
[2019-01-23] MEDS ORDERED: NALOXONE 0.4 MG/ML 1 ML VIAL IV PRN (15:28)
[2019-01-23] MEDS ORDERED: LORazepam 2 MG/ML INJ IV PRN (15:30)
[2019-01-23] MEDS ORDERED: SODIUM CHLORIDE 0.9% 1,000 ML IV SCH (15:30)
--- NOTE | 2019-01-23 17:33 | P.HPIM ---
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 Sun and she has been referred to [facility] as well exact details are not available Review of Systems All systems: negative Past Medical History Past Medical History: GERD/Reflux, Seizure Disorder Additional Past Medical History / Comment(s): epigastric pain, nauseated, last seizure week & half ago, placed on atenolol recently for fast heart rate, intermittent vertigo, hx. elevated liver enzymes for unknown reason 2016 History of Any Multi-Drug Resistant Organisms: None Reported Past Surgical History: Bariatric Surgery, Cholecystectomy, Orthopedic Surgery Additional Past Surgical History / Comment(s): LEFT FOOT SX, Right fallopian tube removed; SLEEVE GASTRECTOMY; EGD W DILATION, LAPAROSCOPIC EXAM Past Anesthesia/Blood Transfusion Reactions: Motion Sickness, Postoperative Nausea & Vomiting (PONV) Past Psychological History: Panic Disorder Smoking Status: Never smoker Past Alcohol Use History: None Reported Past Drug Use History: None Reported - Past Family History Sister(s) Family Medical History: Cancer, Deep Vein Thrombosis (DVT) Additional Family Medical History / Comment(s): Cervical cancer Mother Family Medical History: Hyperlipidemia Additional Family Medical History / Comment(s): HEART PROBLEMS, IRREG RYTHM Father Family Medical History: Hyperlipidemia, Hypertension Additional Family Medical History / Comment(s): Paternal grandfather had kidney disorder and colon cancer. Medications and Allergies Home Medications Medication Instructions Recorded Confirmed Type Zolpidem Tartrate [Ambien Cr] 12.5 mg PO HS 01/13/18 01/23/19 History Ranitidine HCl [Zantac] 150 mg PO BID #60 tab 01/14/18 01/23/19 Rx Metoclopramide HCl [Reglan] 5 mg PO BID 07/30/18 01/23/19 History ALPRAZolam [Xanax] 1 mg PO HS PRN 10/01/18 01/23/19 History Topiramate [Topamax] 100 mg PO BID 01/10/19 01/23/19 History busPIRone HCL 15 mg PO TID 01/10/19 01/23/19 History traMADol HCl [Ultram] 50 mg PO BID PRN 01/23/19 01/23/19 History Allergies Allergy/AdvReac Type Severity Reaction Status Date / Time amoxicillin [Amoxicillin] AdvReac Yeast Verified 01/23/19 14:24 Infection hydrocodone [From [place]] AdvReac Nausea & Verified 01/23/19 14:24 Vomiting Physical Exam Vitals: Vital Signs Temp Pulse Resp BP Pulse Ox 01/23/19 13:00 98.4 F 119 H 18 132/87 100 Intake and Output 01/23/19 01/23/19 01/23/19 06:59 14:59 22:59 Other: Weight 89.811 kg - Constitutional General appearance: average body habitus, cooperative, disheveled, obese - EENT Eyes: anicteric sclerae, EOMI, PERRLA, dentition normal, normal appearance ENT: hearing grossly normal, normal oropharynx Ears: bilateral: normal - Neck Neck: other Carotids: bilateral: upstroke normal, bruit absent Thyroid: bilateral: normal size - Respiratory Respiratory: bilateral: CTA - Cardiovascular Rhythm: regular Heart sounds: normal: S1, S2 - Gastrointestinal General gastrointestinal: distended, soft - Integumentary Integumentary: normal turgor - Neurologic Neurologic: CNII-XII intact - Musculoskeletal Musculoskeletal: gait normal, generalized weakness, strength equal bilaterally - Psychiatric Psychiatric: A&O x's 3, appropriate affect, intact judgment & insight Results CBC & Chem 7: 01/23/19 13:25 01/23/19 13:25 Labs: Abnormal Lab Results - Last 24 Hours (Table) 01/23/19 01/23/19 01/23/19 Range/Units 13:25 13:25 13:35 Neutrophils # 8.3 H (1.3-7.7) k/uL Lymphocytes # 0.9 L (1.0-4.8) k/uL Chloride 113 H (98-107) mmol/L Carbon Dioxide 13 L (22-30) mmol/L Urine Appearance Turbid H (Clear) Urine Protein 1+ H (Negative) Ur Leukocyte Esterase Moderate H (Negative) Urine WBC 14 H (0-5) /hpf Ur Squamous Epith Cells 5 H (0-4) /hpf Amorphous Sediment Few H (None) /hpf Urine Bacteria Occasional H (None) /hpf Hyaline Casts 4 H (0-2) /lpf Urine Mucus Occasional H (None) /hpf Assessment and Plan Assessment: Seizure-like activity Metabolic acidosis due to acute seizure UTI Plan: Gentle rehydration Continue Topamax Check EEG Send urine for culture, hold antibiotics at this time Seizure precautions Ativan when necessary for seizure Further recommendations pending plan of care as per clinical response of the patient Time with Patient: Greater than 30
[2019-01-23] MEDS: TOPIRAMATE 100 MG TAB PO SCH (19:08)
[2019-01-23] MEDS: LORazepam 0.5 MG TAB PO PRN (19:11)
[2019-01-23] MEDS ORDERED: ZOLPIDEM 10 MG TAB PO SCH (21:00)
[2019-01-24] MEDS: TOPIRAMATE 100 MG TAB PO SCH (05:51)
[2019-01-24 06:54] VITALS: BP 102/70; PULSE 76; RESP 18; TEMP 98.2
[2019-01-24] MEDS ORDERED: METOCLOPRAMIDE 5 MG TAB PO SCH (07:30)
[2019-01-24] MEDS: LORazepam 0.5 MG TAB PO PRN (07:45)
--- NOTE | 2019-01-24 12:55 | PN ---
PROGRESS NOTE A 28-year-old white female admitted with seizures and syncope of unclear etiology. She has been under a lot of stress lately, but she does not think that is causing it. She had another EEG which has been ordered. Wait for neurology and psych consults. She has a history of pseudoseizures. CARDIOVASCULAR: S1, S2. LUNGS: Clear. GI: Soft. HEMATOLOGY: Negative Homans. ASSESSMENT: 1. seizures, seizure disorder, possible syncope. EEG, neuro consult. MMODL / IJN: [id number] /
== END 2019-01-24 14:57 | disposition home or self-care (01) ==
LOC: EC 12:54 → 4MS4W 16:02
PROVIDERS: ADMIT Family Medicine; ATTEND Family Medicine
DX: G40.909 Epilepsy, unspecified, not intractable, without status epilepticus (principal); K21.9 Gastro-esophageal reflux disease without esophagitis; F41.0 Panic disorder [episodic paroxysmal anxiety]; N39.0 Urinary tract infection, site not specified; R32 Unspecified urinary incontinence; E87.2 Acidosis; E66.9 Obesity, unspecified; Z68.35 Body mass index [BMI] 35.0-35.9, adult; Z90.49 Acquired absence of other specified parts of digestive tract; Z98.84 Bariatric surgery status; Z79.899 Other long term (current) drug therapy; Z79.891 Long term (current) use of opiate analgesic; Z88.5 Allergy status to narcotic agent; Z88.0 Allergy status to penicillin; Z80.49 Family history of malignant neoplasm of other genital organs; Z82.49 Family history of ischemic heart disease and other diseases of the circulatory system; Z83.2 Family history of diseases of the blood and blood-forming organs and certain disorders involving the immune mechanism; Z80.0 Family history of malignant neoplasm of digestive organs; Z84.1 Family history of disorders of kidney and ureter
CPT/HCPCS: 96374; 96375; 99285; 36415; 93005; 80048; 83735; 85025; 81001; 81025; 87086; G0378 ×2; J2060; J2405

== ENCOUNTER → 2019-02-03 | Outpatient (CLI) | payer BC ==
[2019-02-03 15:31] LABS: Basophils % (A) 0 %; Eosinophils # (A) 0.2 k/uL (0-0.7); Eosinophils % (A) 3 %; HGB 13.4 gm/dL (11.4-16.0); Lymphocytes # (A) 1.7 k/uL (1.0-4.8); Lymphocytes % (A) 32 %; MCH 30.1 pg (25.0-35.0); MCHC 32.6 g/dL (31.0-37.0); MCV 92.3 fL (80.0-100.0); Mean Platelet Volume 6.7; Monocytes # (A) 0.3 k/uL (0-1.0); Monocytes % (A) 5 %; Neutrophils % (A) 56 %; Platelet Count 250 k/uL (150-450); RBC 4.44 m/uL (3.80-5.40); RDW 13.2 % (11.5-15.5); WBC 5.4 k/uL (3.8-10.6)
[2019-02-03 15:46] LABS: African American GFR (CKD) >90 (>60 ml/min/1.73 sqM); Anion Gap 8 mmol/L; Blood Urea Nitrogen 21 mg/dL (7-17); Carbon Dioxide 23 mmol/L (22-30); Chloride 111 mmol/L (98-107); Glucose 95 mg/dL (74-99); Sodium 142 mmol/L (137-145)
== END | disposition home or self-care (01) ==
LOC: LABPAT 14:45
PROVIDERS: ATTEND Obstetrics & Gynecology
DX: Z01.812 Encounter for preprocedural laboratory examination (principal)
CPT/HCPCS: 36415; 80048; 85025

== ENCOUNTER 2019-02-08 00:15 | Inpatient (IN) | payer BC ==
--- NOTE | 2019-02-08 00:18 | ED ---
Seizure HPI - General Stated Complaint: Seizure Time Seen by Provider: 02/08/19 00:17 Source: RN notes reviewed, old records reviewed - History of Present Illness Initial Comments: This is a 28-year-old female the ER for evaluation, patient presenting from work for evaluation of seizure probably with history of seizures, patient on Topamax for seizures in the medication as directed. No recent nausea vomiting chest pain. No recent travel history or sick contacts. Denies recent alcohol abuse. Patient has history of similar symptoms. Patient states currently she just does not feel well MD Complaint: seizure -: minutes(s) Description of Episode: loss of consciousness, tonic-clonic movement -: second(s) Witnessed: yes - by bystander Trauma: No Seizure History: known seizure disorder Place: work Possible Precipitating Event: none Associated Symptoms: chest pain Treatments Prior to Arrival: none - Related Data Home Medications Medication Instructions Recorded Confirmed Zolpidem Tartrate [Ambien Cr] 12.5 mg PO HS 01/13/18 02/06/19 Metoclopramide HCl [Reglan] 5 mg PO BID 07/30/18 02/06/19 ALPRAZolam [Xanax] 1 mg PO HS PRN 10/01/18 02/06/19 Topiramate [Topamax] 100 mg PO BID 01/10/19 02/06/19 busPIRone HCL 15 mg PO TID 01/10/19 02/06/19 traMADol HCl [Ultram] 50 mg PO BID PRN 01/23/19 02/06/19 Previous Rx's Medication Instructions Recorded Ranitidine HCl [Zantac] 150 mg PO BID #60 tab 01/14/18 Allergies Allergy/AdvReac Type Severity Reaction Status Date / Time amoxicillin [Amoxicillin] AdvReac Yeast Verified 02/08/19 00:17 Infection hydrocodone [From [place]] AdvReac Nausea & Verified 02/08/19 00:17 Vomiting Review of Systems ROS Statement: Those systems with pertinent positive or pertinent negative responses have been documented in the HPI. ROS Other: All systems not noted in ROS Statement are negative. Past Medical History Past Medical History: GERD/Reflux, Seizure Disorder Additional Past Medical History / Comment(s): epigastric pain, nauseated, last seizure week & half ago, placed on atenolol recently for fast heart rate, intermittent vertigo, hx. elevated liver enzymes for unknown reason 2017 History of Any Multi-Drug Resistant Organisms: None Reported Past Surgical History: Bariatric Surgery, Cholecystectomy, Orthopedic Surgery Additional Past Surgical History / Comment(s): LEFT FOOT SX, Right fallopian tube removed; SLEEVE GASTRECTOMY; EGD W DILATION, LAPAROSCOPIC EXAM Past Anesthesia/Blood Transfusion Reactions: Motion Sickness, Postoperative N ausea & Vomiting (PONV) Past Psychological History: Panic Disorder - Past Family History Sister(s) Family Medical History: Cancer, Deep Vein Thrombosis (DVT) Additional Family Medical History / Comment(s): Cervical cancer. Mother Family Medical History: Hyperlipidemia Additional Family Medical History / Comment(s): HEART PROBLEMS, IRREG RYTHM Father Family Medical History: Hyperlipidemia, Hypertension Additional Family Medical History / Comment(s): Paternal grandfather had kidney disorder and colon cancer. General Exam General appearance: alert, in no apparent distress Head exam: Present: atraumatic, normocephalic, normal inspection Eye exam: Present: normal appearance, PERRL, EOMI. Absent: scleral icterus, conjunctival injection, periorbital swelling ENT exam: Present: normal exam, mucous membranes moist Neck exam: Present: normal inspection. Absent: tenderness, meningismus, lymphadenopathy Respiratory exam: Present: normal lung sounds bilaterally. Absent: respiratory distress, wheezes, rales, rhonchi, stridor Cardiovascular Exam: Present: normal rhythm, tachycardia, normal heart sounds. Absent: systolic murmur, diastolic murmur, rubs, gallop, clicks GI/Abdominal exam: Present: soft, normal bowel sounds. Absent: distended, tenderness, guarding, rebound, rigid Extremities exam: Present: normal inspection, full ROM, normal capillary refill. Absent: tenderness, pedal edema, joint swelling, calf tenderness Back exam: Present: normal inspection Neurological exam: Present: alert, oriented X3, CN II-XII intact Psychiatric exam: Present: normal affect, normal mood Skin exam: Present: warm, dry, intact, normal color. Absent: rash Course Vital Signs 02/08/19 02/08/19 02/08/19 00:17 03:31 03:46 Temperature 98.3 F 98.1 F Pulse Rate 110 H 81 72 Respiratory 15 16 19 Rate Blood Pressure 150/85 114/72 105/68 O2 Sat by Pulse 99 99 100 Oximetry - Reevaluation(s) Reevaluation #1: 02/08/19 02:44 Medical record reviewed Reevaluation #2: 02/08/19 02:44 Patient is multiple hospitalizations for seizures Reevaluation #3: 02/08/19 02:44 Current seizure-like activity here in the ER Medical Decision Making - Medical Decision Making 28 female the ER for evaluation of seizure. Patient having recurrent seizures will admit for neurology evaluation, patient started on Keppra given Ativan for as necessary with headache - Lab Data Result diagrams: 02/08/19 01:30 02/08/19 01:30 Lab Results 02/08/19 02/08/19 Range/Units 01:30 01:30 WBC 8.2 (3.8-10.6) k/uL RBC 4.86 (3.80-5.40) m/uL Hgb 14.2 (11.4-16.0) gm/dL Hct 44.8 (34.0-46.0) % MCV 92.3 (80.0-100.0) fL MCH 29.2 (25.0-35.0) pg MCHC 31.7 (31.0-37.0) g/dL RDW 13.2 (11.5-15.5) % Plt Count 317 (150-450) k/uL Neutrophils % 50 % Lymphocytes % 38 % Monocytes % 5 % Eosinophils % 3 % Basophils % 0 % Neutrophils # 4.1 (1.3-7.7) k/uL Lymphocytes # 3.1 (1.0-4.8) k/uL Monocytes # 0.4 (0-1.0) k/uL Eosinophils # 0.2 (0-0.7) k/uL Basophils # 0.0 (0-0.2) k/uL Sodium 148 H (137-145) mmol/L Potassium 4.3 (3.5-5.1) mmol/L Chloride 113 H (98-107) mmol/L Carbon Dioxide 20 L (22-30) mmol/L Anion Gap 15 mmol/L BUN 16 (7-17) mg/dL Creatinine 0.94 (0.52-1.04) mg/dL Est GFR (CKD-EPI)AfAm >90 (>60 ml/min/1.73 sqM) Est GFR (CKD-EPI)NonAf 82 (>60 ml/min/1.73 sqM) Glucose 84 (74-99) mg/dL Calcium 9.8 (8.4-10.2) mg/dL Phosphorus 3.1 (2.5-4.5) mg/dL Magnesium 2.3 (1.6-2.3) mg/dL Total Bilirubin 0.3 (0.2-1.3) mg/dL AST 21 (14-36) U/L ALT 14 (9-52) U/L Alkaline Phosphatase 82 (38-126) U/L Creatine Kinase 54 (30-135) U/L Total Protein 7.3 (6.3-8.2) g/dL Albumin 4.4 (3.5-5.0) g/dL - EKG Data -: EKG Interpreted by Me (EKG shows sinus rhythm rate of 83, [place] 142, QRS 82, QTc 457) - Radiology Data Radiology results: report reviewed (CT brain negative for acute disease), image reviewed Disposition Clinical Impression: Generalized seizure, Epileptic seizure, Seizure, New onset seizure Disposition: ADMITTED IP TO THIS [facility] Condition: Fair Is patient prescribed a controlled substance at d/c from ED?: No Referrals: Jacinto Olivares MD [Primary Care Provider] - 1-2 days
[2019-02-08] MEDS ORDERED: SODIUM CHLORIDE 0.9% 1,000 ML IV STA ×2 (00:42→04:11)
[2019-02-08] MEDS ORDERED: LORazepam 2 MG/ML INJ IV STA (00:42)
[2019-02-08 01:46] LABS: Basophils % (A) 0 %; Eosinophils # (A) 0.2 k/uL (0-0.7); Eosinophils % (A) 3 %; HCT 44.8 % (34.0-46.0); HGB 14.2 gm/dL (11.4-16.0); Lymphocytes # (A) 3.1 k/uL (1.0-4.8); Lymphocytes % (A) 38 %; MCH 29.2 pg (25.0-35.0); MCHC 31.7 g/dL (31.0-37.0); MCV 92.3 fL (80.0-100.0); Mean Platelet Volume 6.9; Monocytes # (A) 0.4 k/uL (0-1.0); Monocytes % (A) 5 %; Neutrophils # (A) 4.1 k/uL (1.3-7.7); Neutrophils % (A) 50 %; Platelet Count 317 k/uL (150-450); RBC 4.86 m/uL (3.80-5.40); RDW 13.2 % (11.5-15.5); WBC 8.2 k/uL (3.8-10.6)
[2019-02-08 01:55] LABS: ALT 14 U/L (9-52); AST 21 U/L (14-36); African American GFR (CKD) >90 (>60 ml/min/1.73 sqM); Albumin 4.4 g/dL (3.5-5.0); Alkaline Phosphatase 82 U/L (38-126); Anion Gap 15 mmol/L; Blood Urea Nitrogen 16 mg/dL (7-17); Calcium 9.8 mg/dL (8.4-10.2); Carbon Dioxide 20 mmol/L (22-30); Chloride 113 mmol/L (98-107); Creatine Kinase 54 U/L (30-135); Glucose 84 mg/dL (74-99); Magnesium 2.3 mg/dL (1.6-2.3); Phosphorus 3.1 mg/dL (2.5-4.5); Potassium 4.3 mmol/L (3.5-5.1); Sodium 148 mmol/L (137-145); Total Bilirubin 0.3 mg/dL (0.2-1.3); Total Protein 7.3 g/dL (6.3-8.2)
[2019-02-08] MEDS ORDERED: SODIUM CHLORIDE 0.9% 1,000 ML IV ONE (04:06)
[2019-02-08] MEDS ORDERED: LORazepam 2 MG/ML INJ IV PRN (04:06)
[2019-02-08] MEDS ORDERED: SODIUM CHLORIDE 0.9% 500 ML 500 ML IV STA (04:11)
[2019-02-08] MEDS ORDERED: DIAZEPAM 5 MG/ML 2 ML INJ IVP STA (04:11)
[2019-02-08] MEDS ORDERED: MORPHINE SULFATE 4 MG/ML SYRINGE IVP STA (04:11)
[2019-02-08] MEDS ORDERED: levETIRAcetam IV 1,000 MG in SALINE 1 100ML.BAG IVPB ONE (04:15)
[2019-02-08] MEDS: MORPHINE SULFATE 4 MG/ML SYRINGE IVP PRN ×3 (10:53→20:28)
[2019-02-08] MEDS ORDERED: DEXTROSE 10 % IN WATER 250 ML IV STA (16:06)
[2019-02-08 16:20] LABS: Glucose,Whole Blood 72 mg/dL (75-99)
[2019-02-08] MEDS ORDERED: levETIRAcetam IV 1,000 MG in SALINE 1 100ML.BAG IVPB SCH (17:00)
[2019-02-08 19:31] VITALS: BP 125/76; PULSE 89; RESP 18; TEMP 98.8
[2019-02-08] MEDS ORDERED: ZOLPIDEM 5 MG TAB PO PRN (21:00)
[2019-02-08] MEDS ORDERED: TOPIRAMATE 100 MG TAB PO SCH (21:00)
[2019-02-08] MEDS ORDERED: FAMOTIDINE 20 MG TAB PO SCH (21:00)
--- NOTE | 2019-02-08 23:26 | HP ---
HISTORY AND PHYSICAL PAST SURGICAL HISTORY: GERD, seizure disorders and pseudoseizures. She was seen at [facility] for pseudoseizures in the past. She has been admitted for seizures. She has had 2 seizures on the floor today, not responding to Ativan. There is no neurology consult here. She will be transferred to [facility]. PAST SURGICAL HISTORY: Bariatric surgery, cholecystectomy, orthopedic surgery, panic disorder. FAMILY HISTORY: Sister has DVT, mother with dyslipidemia. Father with hypertension. Pulse rate is 81-110, temp 99.3. Blood pressure 105 to 1950 over 70s 80s. O2 respiratory rate 16-18, cardiovascular S1, S2. Lungs clear. GI soft. Hematology negative Homans. Neurologic is cranial nerves are intact. PSYCH: Fair mood and affect. ASSESSMENT: Seizure versus be transferred down to [facility] today due to poor neurology care here at the hospital. Medically she is cleared for transfer. Discussed with [facility]. Seizure workup will be done at [facility] has there is no Neurology here. MMODL / IJN: [id number] /
--- NOTE | 2019-02-08 23:26 | HP ---
HISTORY AND PHYSICAL A 28-year-old white female came in with seizure versus pseudoseizures. She is on Topamax at home for seizures. No recent travel or sick contacts. No alcohol abuse. Neurology consult is pending. She has seen a psychiatrist in the past for pseudoseizures and Neurology [place]. HOME MEDS: Include Reglan 5 mg b.i.d. for gastroparesis, Xanax 1 mg p.r.n. for anxiety, Topamax 100 b.i.d., BuSpar 15 t.i.d., tramadol 50 b.i.d. p.r.n. ALLERGIES: AMOXICILLIN, NORCO. REVIEW OF SYSTEMS: Fourteen point review of systems negative except for mentioned in HPI. PAST MEDICAL HISTORY: GERD, seizures, cholecystectomy, orthopedic surgery, EGD, dilation. MMODL / IJN: [id number] /
== END 2019-02-08 20:35 | disposition short-term general hospital (02) | DRG 101 ==
LOC: EC 00:15 → 4SSUR 04:08
PROVIDERS: ADMIT Family Medicine; ATTEND Family Medicine
DX: G40.909 Epilepsy, unspecified, not intractable, without status epilepticus (principal); F41.0 Panic disorder [episodic paroxysmal anxiety]; K21.9 Gastro-esophageal reflux disease without esophagitis; K31.84 Gastroparesis; Z80.0 Family history of malignant neoplasm of digestive organs; Z82.49 Family history of ischemic heart disease and other diseases of the circulatory system; Z84.1 Family history of disorders of kidney and ureter; Z83.2 Family history of diseases of the blood and blood-forming organs and certain disorders involving the immune mechanism; Z88.5 Allergy status to narcotic agent; Z88.0 Allergy status to penicillin; Z98.84 Bariatric surgery status; Z80.49 Family history of malignant neoplasm of other genital organs
CPT/HCPCS: 36415; 80053; 80201; 82550; 83735; 84100; 84443; 85025; 93005; 96361; 96365; 96375; 99285

== ENCOUNTER 2019-02-12 05:32 | Observation (INO) | payer BC ==
[2019-02-12] MEDS ORDERED: SCOPOLAMINE 1.5MG/72HR PATCH TRANSDERM ONE (05:46)
[2019-02-12] MEDS ORDERED: DEXAMETHASONE SOD PHOSPHATE 10 MG/ML 1 ML VIAL IV ONE (05:46)
[2019-02-12] MEDS ORDERED: ONDANSETRON 4 MG/2 ML VIAL IVP ONE (05:46)
[2019-02-12] MEDS ORDERED: MIDAZOLAM 2 MG/2 ML VIAL IV PRN (05:46)
[2019-02-12] MEDS ORDERED: LIDOCAINE 1% 20 ML VIAL (10MG/ML) FOR IV START INTRADERMA PRN (05:46)
[2019-02-12] MEDS: LACTATED RINGERS 1,000 ML IV SCH ×2 (06:50→17:59)
--- NOTE | 2019-02-12 06:55 | P.HPOB ---
History of Present Illness H&P Date: 02/12/19 Chief Complaint: Pelvic pain 28-year-old G0 presents for total laparoscopic hysterectomy with da Toni and diagnostic cystoscopy. She's been suffering with increasing pelvic pain and dysmenorrhea for the last couple of years. She's failed hormone therapy and desires definitive treatment. Review of Systems All systems: negative Constitutional: Denies chills, Denies fever Eyes: denies blurred vision, denies pain Ears, nose, mouth and throat: Denies headache, Denies sore throat Cardiovascular: Denies chest pain, Denies shortness of breath Respiratory: Denies cough Gastrointestinal: Denies abdominal pain, Denies diarrhea, Denies nausea, Denies vomiting Genitourinary: Denies dysuria, Denies hematuria Musculoskeletal: Denies myalgias Integumentary: Denies pruritus, Denies rash Neurological: Denies numbness, Denies weakness Psychiatric: Denies anxiety, Denies depression Endocrine: Denies fatigue, Denies weight change Past Medical History Past Medical History: GERD/Reflux, Seizure Disorder (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) Additional Past Medical History / Comment(s): last pseudoseizure week & half ago she was then worked up at [facility] and discharged home., placed on atenolol recently for fast heart rate, intermittent vertigo History of Any Multi-Drug Resistant Organisms: None Reported Past Surgical History: Bariatric Surgery, Cholecystectomy, Orthopedic Surgery Additional Past Surgical History / Comment(s): LEFT FOOT SX, Right fallopian tube removed; SLEEVE GASTRECTOMY; EGD W DILATION, LAPAROSCOPIC EXAM Past Anesthesia/Blood Transfusion Reactions: Motion Sickness, Postoperative Nausea & Vomiting (PONV) Additional Past Anesthesia/Blood Transfusion Reaction / Comment(s): Family hx PONV. Past Psychological History: Anxiety Smoking Status: Never smoker - Past Family History Sister(s) Family Medical History: Cancer, Deep Vein Thrombosis (DVT) Additional Family Medical History / Comment(s): Cervical cancer. Mother Family Medical History: Hyperlipidemia Additional Family Medical History / Comment(s): HEART PROBLEMS, IRREG RYTHM Father Family Medical History: Hyperlipidemia, Hypertension Additional Family Medical History / Comment(s): Paternal grandfather had kidney disorder and colon cancer. Medications and Allergies Home Medications Medication Instructions Recorded Confirmed Type Zolpidem Tartrate [Ambien Cr] 12.5 mg PO HS 01/13/18 02/12/19 History Ranitidine HCl [Zantac] 150 mg PO BID #60 tab 01/14/18 02/12/19 Rx Metoclopramide HCl [Reglan] 5 mg PO BID 07/30/18 02/12/19 History ALPRAZolam [Xanax] 1 mg PO HS PRN 10/01/18 02/12/19 History busPIRone HCL 15 mg PO TID 01/10/19 02/12/19 History traMADol HCl [Ultram] 50 mg PO BID PRN 01/23/19 02/12/19 History Allergies Allergy/AdvReac Type Severity Reaction Status Date / Time amoxicillin [Amoxicillin] AdvReac Yeast Verified 02/12/19 06:13 Infection hydrocodone [From [place]] AdvReac Nausea & Verified 02/12/19 06:13 Vomiting Exam Osteopathic Statement: *. No significant issues noted on an osteopathic structural exam other than those noted in the History and Physical/Consult. Vital Signs Temp Pulse Resp BP Pulse Ox 02/12/19 06:15 98.1 F 113 H 16 128/78 99 Heart: Regular rate and rhythm Lungs: Clear to auscultation bilaterally Abdomen: Soft, nontender Extremities: Negative Homans sign Assessment and Plan (1) Pelvic pain Current Visit: Yes Status: Acute Code(s): R10.2 - PELVIC AND PERINEAL PAIN SNOMED Code(s): 01210436 (2) Dysmenorrhea Current Visit: Yes Status: Acute Code(s): N94.6 - DYSMENORRHEA, UNSPECIFIED SNOMED Code(s): 893668409 Plan: 1. Total laparoscopic hysterectomy with da Toni and diagnostic cystoscopy
[2019-02-12] MEDS ORDERED: BUPIVACAINE (PF) 0.25% 30 ML VIAL SQ ONE ×2 (08:01→08:19)
[2019-02-12] MEDS ORDERED: Acetaminophen-Codeine 300-30mg TAB PO PRN (08:48)
[2019-02-12] MEDS ORDERED: SIMETHICONE 80 MG CHEWABLE PO PRN (08:48)
[2019-02-12] MEDS ORDERED: KETOROLAC 30 MG/ML 1 ML VIAL IVP ONE (08:50)
--- NOTE | 2019-02-12 08:53 | P.OP ---
Date of Procedure: 02/12/19 Preoperative Diagnosis: 1. Pelvic pain 2. Endometriosis Postoperative Diagnosis: 1. Pelvic pain 2. Endometriosis Procedure(s) Performed: Total laparoscopic hysterectomy with da Toni and diagnostic cystoscopy Anesthesia: ANDI Surgeon: Pippa Pichrado Assistant Hall Director #1: Micheal Albert Estimated Blood Loss (ml): 5 IV fluids (ml): 600 Urine output (ml): 30 Pathology: other (uterus and cervix) Condition: stable Disposition: PACU Operative Findings: Endometriosis since scarring seen in the posterior cul-de-sac Description of Procedure: Patient taken the operating room where general anesthesia was obtained without difficulty. She is prepped and draped in normal sterile fashion dorsal lithotomy position, legs placed in the Rick stirrups. Weighted speculum placed in the vagina and the anterior lip the cervix was grasped with single-tooth tenaculum. The uterus sounded to 6 cm and the cervix diameter was 3 cm. The appropriate manipulator tip and ring were placed on the Junie manipulator. The Junie manipulator was then placed in the uterus. Brunson catheter was also placed. Attention was then turned to the abdomen and gloves were changed. A 5 mm supraumbilical incision was made the scalpel and a 5 mm optical trocar was placed under direct visualization. 10 cm to the right of this and 2 cm down a 5 mm incision was made and 8 mm da Toni port was placed under direct visualization. Same measurements on the opposite side of the patient's abdomen, the 5 mm incision was made and 8 mm da Toni port was placed under direct visualization. In the left upper quadrant a 10 mm incision was made and a 10 mm optical trocar was placed under direct visualization. The 5 mm optical trocar was then replaced with the 8 mm da Toni camera port. The robot was docked on patient's right side. The camera was introduced and then the monopolar curved scissor and [place] bipolar placed under direct visualization. I broke scrub and went to the physician console. The left utero-ovarian ligament was cauterized with the [place] bipolar and cut with monopolar curved scissors. The left round ligament was cauterized with the [place] bipolar and cut with monopolar curved scissors. The posterior leaf of the broad ligament was taken down using the monopolar curved scissors. Anterior leaf of the broad ligament was then taken down using the monopolar curved scissors. The uterine artery was cauterized with the [place] bipolar and cut with monopolar curved scissors. The bladder flap was then started using the monopolar curved scissors. Attention was then turned to the right side of the patient's anatomy and the right utero-ovarian ligament was cauterized with the [place] bipolar and cut with monopolar curved scissors. The right round ligament was cauterized with the [place] bipolar and cut with monopolar curved scissors. Posterior leaf of the broad ligament was taken down using the monopolar curved scissors and the anterior leaf was taken down using the monopolar curved scissors. The uterine artery was cauterized the [place] bipolar cut with monopolar curved scissors. The bladder flap was then finished on this side. Anterior colpotomy was made using the monopolar curved scissors. The rest of the uterus was from the vaginal cuff by following the ring around with the monopolar curved scissors through the uterosacral ligaments back to the anterior portion. Once the uterus and cervix were amputated they were pulled through the vaginal cuff. Hemostasis was assured. The instruments were changed for the Cardier forcep and the boo s uture cut. The vaginal cuff was then closed using O stratafix barbed suture in a running fashion. Hemostasis was again assured and the pelvis was irrigated. All instruments were removed from the abdomen and the robot was undocked. I scrubbed back in to perform a cystoscopy. There were jets from both ureteral orifices. The abdominal incisions were closed with 4-0 Vicryl in a subcuticular fashion. Patient tolerated the procedure well, sponge and instrument counts correct 2 and she was taken to recovery room in stable condition condition
[2019-02-12] MEDS: HYDROmorphone 0.5 MG/0.5 ML SYRINGE IVP PRN ×2 (08:57→09:04)
[2019-02-12] MEDS ORDERED: FAMOTIDINE 20 MG TAB PO SCH (09:00)
[2019-02-12] MEDS ORDERED: busPIRone HCl 5 MG TAB PO SCH (09:00)
[2019-02-12] MEDS ORDERED: SENNOSIDES-DOCUSATE SODIUM 1 EACH TAB PO SCH (09:00)
[2019-02-12] MEDS ORDERED: METOCLOPRAMIDE 5 MG TAB PO SCH (09:00)
[2019-02-12] MEDS: MEPERIDINE 50 MG/ML SYRINGE IVP ONE ×2 (09:17→09:24)
[2019-02-12 12:20] VITALS: BMI 34.7
[2019-02-12] MEDS ORDERED: HYDROmorphone 1 MG/ML 1 ML SYRINGE IVP STA (12:53)
[2019-02-12] MEDS: KETOROLAC 30 MG/ML 1 ML VIAL IVP PRN ×2 (15:19→21:42)
[2019-02-12] MEDS: Acetaminophen-Codeine 300-30mg TAB PO PRN (15:53)
[2019-02-12] MEDS: METOCLOPRAMIDE 5 MG TAB PO SCH (17:21)
[2019-02-12] MEDS: LACOSAMIDE 50 MG TABLET PO SCH (17:21)
[2019-02-12] MEDS: SENNOSIDES-DOCUSATE SODIUM 1 EACH TAB PO SCH (17:21)
[2019-02-12] MEDS: FAMOTIDINE 20 MG TAB PO SCH (17:21)
[2019-02-12] MEDS: HYDROmorphone 1 MG/ML 1 ML SYRINGE IVP PRN (20:33)
[2019-02-12] MEDS ORDERED: ZOLPIDEM TARTRATE 12.5 MG PO SCH (21:00)
[2019-02-12] MEDS ORDERED: ALPRAZolam 1 MG TAB PO PRN (21:00)
[2019-02-12] MEDS ORDERED: ZOLPIDEM 5 MG TAB PO PRN (21:00)
[2019-02-13] MEDS: HYDROmorphone 1 MG/ML 1 ML SYRINGE IVP PRN ×2 (00:26→05:23)
[2019-02-13] MEDS: METOCLOPRAMIDE 5 MG TAB PO SCH (05:24)
[2019-02-13] MEDS: LACOSAMIDE 50 MG TABLET PO SCH (05:24)
[2019-02-13] MEDS: SENNOSIDES-DOCUSATE SODIUM 1 EACH TAB PO SCH (05:24)
[2019-02-13] MEDS: FAMOTIDINE 20 MG TAB PO SCH (05:24)
[2019-02-13] MEDS: Acetaminophen-Codeine 300-30mg TAB PO PRN (07:47)
[2019-02-13 08:02] LABS: Basophils % (A) 0 %; Eosinophils # (A) 0.2 k/uL (0-0.7); Eosinophils % (A) 3 %; HCT 36.5 % (34.0-46.0); HGB 11.7 gm/dL (11.4-16.0); Lymphocytes # (A) 2.3 k/uL (1.0-4.8); Lymphocytes % (A) 34 %; MCH 29.5 pg (25.0-35.0); MCHC 31.9 g/dL (31.0-37.0); MCV 92.5 fL (80.0-100.0); Mean Platelet Volume 7.2; Monocytes # (A) 0.5 k/uL (0-1.0); Monocytes % (A) 8 %; Neutrophils # (A) 3.4 k/uL (1.3-7.7); Neutrophils % (A) 51 %; Platelet Count 232 k/uL (150-450); RBC 3.95 m/uL (3.80-5.40); RDW 13.1 % (11.5-15.5); WBC 6.6 k/uL (3.8-10.6)
[2019-02-13 10:54] VITALS: BP 131/85; PULSE 84; RESP 16; TEMP 97.9
== END 2019-02-13 13:00 | disposition home or self-care (01) ==
LOC: OR 05:32 → 6PED 08:40 → OR 23:26 → 6PED 23:26
PROVIDERS: ADMIT Obstetrics & Gynecology; ATTEND Obstetrics & Gynecology
DX: N80.3 Endometriosis of pelvic peritoneum (principal); K21.9 Gastro-esophageal reflux disease without esophagitis; F44.5 Conversion disorder with seizures or convulsions; F41.9 Anxiety disorder, unspecified; Z88.1 Allergy status to other antibiotic agents; Z88.5 Allergy status to narcotic agent; Z79.899 Other long term (current) drug therapy; Z90.49 Acquired absence of other specified parts of digestive tract; Z98.84 Bariatric surgery status; Z98.890 Other specified postprocedural states; Z82.49 Family history of ischemic heart disease and other diseases of the circulatory system; Z80.49 Family history of malignant neoplasm of other genital organs; Z80.0 Family history of malignant neoplasm of digestive organs
CPT/HCPCS: 58570; S2900; 81025; 85025; 86850; 86900; 86901; 88307

== ENCOUNTER 2019-02-18 22:26 | Emergency (ER) | payer BC ==
[2019-02-18] MEDS ORDERED: SODIUM CHLORIDE 0.9% 1,000 ML IV STA (23:01)
--- NOTE | 2019-02-18 23:03 | ED ---
General Adult HPI - General Chief complaint: Seizure Stated complaint: seizure Time Seen by Provider: 02/18/19 22:37 Source: patient Mode of arrival: ambulatory Limitations: no limitations - History of Present Illness Initial comments: Dictation was produced using [employer] dictation software. please excuse any grammatical, word or spelling errors. Chief Complaint: 28-year-old female with past medical history of stress-induced seizures presents with seizure today. History of Present Illness: 28-year-old female she has past medical history of stress-induced seizures. Patient states she did she had a seizure earlier toda y. She does take seizure medications. She reports that today she was at rest at home when she had an episode of oral. She started to feel lightheaded and seeing stars. She threw the remote at her significant other to get his attention. Patient then went into convulsions however she was awake the whole time. Patient reports that she takes medication for her seizures but does not know the name of it. She reports that she bit her tongue. She states that she's been feeling weak. The ROS documented in this emergency department record has been reviewed and confirmed by me. Those systems with pertinent positive or negative responses have been documented in the HPI. All other systems are other negative and/or noncontributory. PHYSICAL EXAM: General Impression: Alert and oriented x3, not in acute distress HEENT: Normocephalic atraumatic, extra-ocular movements intact, pupils equal and reactive to light bilaterally, mucous membranes moist. Cardiovascular: Heart regular rate and rhythm, S1&S2 audible, no murmurs, rubs or gallops Chest: Lungs clear to auscultation bilaterally, no rhonchi, no wheeze, no rales Abdomen: Bowel sounds present, abdomen soft, non-tender, non-distended, no organomegaly Musculoskeletal: Pulses present and equal in all extremities, no peripheral edema Motor: no focal deficits noted Neurological: CN II-XII grossly intact, no focal motor or sensory deficits noted Skin: Intact with no visualized rashes Psych: Normal affect and mood ED course: 28yo female with concerns of seizures today. Vital signs upon arrival shows heart rate of 140, rest of vital signs within acceptable limits. Laboratory evaluation was obtained showing no acute processes. Patient had an episode of sooner genic seizure urine emergency department while awaiting labs. Patient had shaking tremors to the arm. She was sternal rub and was no longer shaking. Laboratory evaluation obtained. CBC, metabolic panel is grossly unremarkable. Urinalysis is negative. Patient observed in emergency department for several hours with no other issues. There is questionable patient is malingering. Patient was reevaluated. She is not complaining of headache. She is given Toradol and Decadron. Patient is to follow-up with her neurologist. At this point that epilepsy. Patient's clinical presentation more consistent with non-epileptogenic seizures. - Related Data Home Medications Medication Instructions Recorded Confirmed Zolpidem Tartrate [Ambien Cr] 12.5 mg PO HS 01/13/18 02/18/19 Metoclopramide HCl [Reglan] 5 mg PO BID 07/30/18 02/18/19 ALPRAZolam [Xanax] 1 mg PO HS PRN 10/01/18 02/18/19 traMADol HCl [Ultram] 50 mg PO BID PRN 01/23/19 02/18/19 Lacosamide [Vimpat] 100 mg PO BID 02/12/19 02/18/19 Acetaminophen-Codeine 300-30mg 2 tab PO Q6HR PRN 02/18/19 02/18/19 [Tylenol w/codeine #3] Previous Rx's Medication Instructions Recorded Ranitidine HCl [Zantac] 150 mg PO BID #60 tab 01/14/18 Ibuprofen [Motrin] 600 mg PO Q6HR PRN #30 tab 02/13/19 Allergies Allergy/AdvReac Type Severity Reaction Status Date / Time amoxicillin [Amoxicillin] AdvReac Mild Yeast Verified 02/18/19 22:38 Infection hydrocodone [From [place]] AdvReac Mild Nausea & Verified 02/18/19 22:38 Vomiting Review of Systems ROS Statement: Those systems with pertinent positive or pertinent negative responses have been documented in the HPI. ROS Other: All systems not noted in ROS Statement are negative. Past Medical History Past Medical History: GERD/Reflux, Seizure Disorder Additional Past Medical History / Comment(s): last pseudoseizure week & half ago she was then worked up at [facility] and discharged home., placed on atenolol recently for fast heart rate, intermittent vertigo History of Any Multi-Drug Resistant Organisms: None Reported Past Surgical History: Bariatric Surgery, Cholecystectomy, Hysterectomy, Orthopedic Surgery Additional Past Surgical History / Comment(s): LEFT FOOT SX, Right fallopian tube removed; SLEEVE GASTRECTOMY; EGD W DILATION, LAPAROSCOPIC EXAM. 02/12/2019 Robotic Hysterectomy Past Anesthesia/Blood Transfusion Reactions: Motion Sickness, Postoperative Nausea & Vomiting (PONV) Past Psychological History: Panic Disorder Smoking Status: Never smoker Past Alcohol Use History: None Reported Past Drug Use History: None Reported - Past Family History Sister(s) Family Medical History: Cancer, Deep Vein Thrombosis (DVT) Additional Family Medical History / Comment(s): Cervical cancer. Mother Family Medical History: Hyperlipidemia Additional Family Medical History / Comment(s): HEART PROBLEMS, IRREG RYTHM Father Family Medical History: Hyperlipidemia, Hypertension Additional Family Medical History / Comment(s): Paternal grandfather had kidney disorder and colon cancer. General Exam Limitations: no limitations Course Vital Signs 02/18/19 02/19/19 22:27 00:36 Temperature 97.2 F L Pulse Rate 148 H 112 H Respiratory 22 18 Rate Blood Pressure 114/79 129/89 O2 Sat by Pulse 100 98 Oximetry Medical Decision Making - Lab Data Result diagrams: 02/18/19 23:23 02/18/19 23:23 Lab Results 02/18/19 02/18/19 02/19/19 Range/Units 23:23 23:23 02:23 WBC 8.5 (3.8-10.6) k/uL RBC 3.96 (3.80-5.40) m/uL Hgb 11.9 (11.4-16.0) gm/dL Hct 36.4 (34.0-46.0) % MCV 91.8 (80.0-100.0) fL MCH 29.9 (25.0-35.0) pg MCHC 32.6 (31.0-37.0) g/dL RDW 14.2 (11.5-15.5) % Plt Count 250 (150-450) k/uL Neutrophils % 68 % Lymphocytes % 21 % Monocytes % 6 % Eosinophils % 3 % Basophils % 0 % Neutrophils # 5.8 (1.3-7.7) k/uL Lymphocytes # 1.8 (1.0-4.8) k/uL Monocytes # 0.5 (0-1.0) k/uL Eosinophils # 0.2 (0-0.7) k/uL Basophils # 0.0 (0-0.2) k/uL Sodium 139 (137-145) mmol/L Potassium 4.1 (3.5-5.1) mmol/L Chloride 109 H (98-107) mmol/L Carbon Dioxide 23 (22-30) mmol/L Anion Gap 7 mmol/L BUN 20 H (7-17) mg/dL Creatinine 0.59 (0.52-1.04) mg/dL Est GFR (CKD-EPI)AfAm >90 (>60 ml/min/1.73 sqM) Est GFR (CKD-EPI)NonAf >90 (>60 ml/min/1.73 sqM) Glucose 99 (74-99) mg/dL Calcium 8.8 (8.4-10.2) mg/dL Magnesium 1.9 (1.6-2.3) mg/dL Urine Color Yellow Urine Appearance Clear (Clear) Urine pH 6.5 (5.0-8.0) Ur Specific [place] 1.028 (1.001-1.035) Urine Protein Negative (Negative) Urine Glucose (UA) Negative (Negative) Urine Ketones Trace H (Negative) Urine Blood Trace H (Negative) Urine Nitrite Negative (Negative) Urine Bilirubin Negative (Negative) Urine Urobilinogen <2.0 (<2.0) mg/dL Ur Leukocyte Esterase Negative (Negative) Urine RBC 1 (0-5) /hpf Urine WBC 3 (0-5) /hpf Ur Squamous Epith Cells 1 (0-4) /hpf Urine Bacteria Rare H (None) /hpf Urine Mucus Rare H (None) /hpf Disposition Clinical Impression: Seizure Disposition: HOME SELF-CARE Condition: Good Instructions (If sedation given, give patient instructions): Nonepileptic Seiz ures (ED) Is patient prescribed a controlled substance at d/c from ED?: No Referrals: Jacinto Olivares MD [Primary Care Provider] - 1-2 days Time of Disposition: 02:52
[2019-02-18 23:36] LABS: Basophils % (A) 0 %; Eosinophils # (A) 0.2 k/uL (0-0.7); Eosinophils % (A) 3 %; HCT 36.4 % (34.0-46.0); HGB 11.9 gm/dL (11.4-16.0); Lymphocytes # (A) 1.8 k/uL (1.0-4.8); Lymphocytes % (A) 21 %; MCH 29.9 pg (25.0-35.0); MCHC 32.6 g/dL (31.0-37.0); MCV 91.8 fL (80.0-100.0); Mean Platelet Volume 6.8; Monocytes # (A) 0.5 k/uL (0-1.0); Monocytes % (A) 6 %; Neutrophils # (A) 5.8 k/uL (1.3-7.7); Neutrophils % (A) 68 %; Platelet Count 250 k/uL (150-450); RBC 3.96 m/uL (3.80-5.40); RDW 14.2 % (11.5-15.5); WBC 8.5 k/uL (3.8-10.6)
--- NOTE | 2019-02-18 23:39 | XR ---
EXAM: XR Chest, 1 View CLINICAL HISTORY: ITS.REASON XR Reason: seizure TECHNIQUE: Frontal view of the chest. COMPARISON: Chest radiography 09/04/18. FINDINGS: Lungs: Unremarkable. No consolidation. Pleural space: Unremarkable. No pneumothorax. Heart: Unremarkable. No cardiomegaly. Mediastinum: Unremarkable. Bones/joints: Unremarkable. IMPRESSION: Normal chest x-ray.
[2019-02-18 23:49] LABS: African American GFR (CKD) >90 (>60 ml/min/1.73 sqM); Anion Gap 7 mmol/L; Blood Urea Nitrogen 20 mg/dL (7-17); Calcium 8.8 mg/dL (8.4-10.2); Carbon Dioxide 23 mmol/L (22-30); Chloride 109 mmol/L (98-107); Glucose 99 mg/dL (74-99); Magnesium 1.9 mg/dL (1.6-2.3); Non-African American GFR(CKD) >90 (>60 ml/min/1.73 sqM); Potassium 4.1 mmol/L (3.5-5.1); Sodium 139 mmol/L (137-145)
[2019-02-19 00:40] VITALS: RESP 18
[2019-02-19 02:30] LABS: Appearance,Urine Clear (Clear); Bacteria,Urine Rare /hpf; Bilirubin,Urine Negative (Negative); Blood,Urine Trace (Negative); Color,Urine Yellow; Glucose,Urine (UA) Negative (Negative); Ketones,Urine Trace (Negative); Leukocyte Esterase,Urine Negative (Negative); Mucus,Urine Rare /hpf; Nitrite,Urine Negative (Negative); PH, Urine 6.5 (5.0-8.0); Protein,Urine Negative (Negative); RBC,Urine 1 /hpf (0-5); Specific Gravity,Urine 1.028 (1.001-1.035); Squamous Epithelial Cell,Urine 1 /hpf (0-4); Urobilinogen,Urine <2.0 mg/dL (<2.0); WBC,Urine 3 /hpf (0-5)
[2019-02-19] MEDS ORDERED: KETOROLAC 30 MG/ML 1 ML VIAL IVP STA (02:50)
[2019-02-19] MEDS ORDERED: DEXAMETHASONE SOD PHOSPHATE 10 MG/ML 1 ML VIAL IV STA (02:50)
[2019-02-19 03:31] VITALS: BP 123/77; PULSE 90; TEMP 98
== END 2019-02-19 03:31 | disposition home or self-care (01) ==
LOC: EC 22:26
DX: G40.909 Epilepsy, unspecified, not intractable, without status epilepticus (principal); R53.1 Weakness; Z79.899 Other long term (current) drug therapy; Z88.0 Allergy status to penicillin; Z88.5 Allergy status to narcotic agent
CPT/HCPCS: 99284; 96361; 96374; 96375; 36415; 93005; 80048; 83735; 85025; 81001; 71045; J1100; J1885

== ENCOUNTER → 2019-02-19 | Outpatient (CLI) | payer BC ==
[2019-02-19 18:41] LABS: ALT 36 U/L (8-44); AST 18 U/L (13-35); Albumin/Globulin Ratio 2.22 (1.60-3.17); Alkaline Phosphatase 80 U/L (41-126); Bilirubin, Conjugated <0.20 mg/dL (0.20-0.40); Globulin 1.8 g/dL (1.6-3.3); Total Bilirubin 0.3 mg/dL (0.2-1.2); Total Protein 5.8 g/dL (6.2-8.2)
== END | disposition home or self-care (01) ==
LOC: LABWHC1 11:50
PROVIDERS: ATTEND Family Medicine
DX: I10 Essential (primary) hypertension (principal); Z79.899 Other long term (current) drug therapy
CPT/HCPCS: 36415; 80076

== ENCOUNTER 2019-03-15 19:43 | Emergency (ER) | payer BC ==
[2019-03-15] MEDS ORDERED: LORazepam 2 MG/ML INJ IV STA ×2 (20:41→22:23)
[2019-03-15 21:15] LABS: Basophils % (A) 1 %; Eosinophils # (A) 0.3 k/uL (0-0.7); Eosinophils % (A) 4 %; HCT 39.3 % (34.0-46.0); Lymphocytes # (A) 2.1 k/uL (1.0-4.8); Lymphocytes % (A) 31 %; MCH 30.1 pg (25.0-35.0); MCHC 33.1 g/dL (31.0-37.0); Mean Platelet Volume 7.1; Monocytes # (A) 0.4 k/uL (0-1.0); Monocytes % (A) 7 %; Neutrophils # (A) 3.6 k/uL (1.3-7.7); Neutrophils % (A) 55 %; Platelet Count 288 k/uL (150-450); RBC 4.33 m/uL (3.80-5.40); RDW 14.2 % (11.5-15.5); WBC 6.7 k/uL (3.8-10.6)
[2019-03-15 21:23] LABS: ALT 15 U/L (9-52); AST 19 U/L (14-36); African American GFR (CKD) >90 (>60 ml/min/1.73 sqM); Albumin 4.1 g/dL (3.5-5.0); Alkaline Phosphatase 69 U/L (38-126); Anion Gap 10 mmol/L; Blood Urea Nitrogen 22 mg/dL (7-17); Calcium 9.1 mg/dL (8.4-10.2); Carbon Dioxide 22 mmol/L (22-30); Chloride 108 mmol/L (98-107); Glucose 98 mg/dL (74-99); Potassium 4.2 mmol/L (3.5-5.1); Sodium 140 mmol/L (137-145); Total Bilirubin 0.1 mg/dL (0.2-1.3); Total Protein 6.9 g/dL (6.3-8.2)
[2019-03-15] MEDS ORDERED: DEXAMETHASONE SOD PHOSPHATE 10 MG/ML 1 ML VIAL IM STA (22:14)
[2019-03-15] MEDS ORDERED: KETOROLAC 30 MG/ML 1 ML VIAL IVP STA (22:14)
[2019-03-15] MEDS ORDERED: levETIRAcetam IV 500 MG in SODIUM CHLORIDE 0.9% 100 ML IVPB STA (22:40)
--- NOTE | 2019-03-15 22:59 | ED ---
General Adult HPI - General Source: EMS Mode of arrival: EMS Limitations: no limitations <Jerry Álvarez - Last Filed: 03/16/19 00:36> <Theresa Real - Last Filed: 03/16/19 21:12> - General Chief complaint: Seizure Stated complaint: Seizure Time Seen by Provider: 03/15/19 20:18 - History of Present Illness Initial comments: Patient is a 28-year-old female with history of stress-induced seizures become to emergency Department with a chief complaint of seizure. Patient reports she was at work sitting on a table during her break when she started noticing bright spots in her vision and does not remember anything afterward. Her boss was contacted and she was brought to the ED. states the patient does take multiple medications for her seizures. Patient does see an neurologist but was never diagnosed with epilepsy. Patient states her most recent seizure was approximately 3 months ago. Patient states she took her medication as prescribed. (Jerry Álvarez) - Related Data Home Medications Medication Instructions Recorded Confirmed Zolpidem Tartrate [Ambien Cr] 12.5 mg PO HS 01/13/18 03/15/19 Metoclopramide HCl [Reglan] 5 mg PO BID 07/30/18 03/15/19 ALPRAZolam [Xanax] 1 mg PO HS PRN 10/01/18 03/15/19 traMADol HCl [Ultram] 50 mg PO BID PRN 01/23/19 03/15/19 Lacosamide [Vimpat] 100 mg PO BID 02/12/19 03/15/19 Acetaminophen-Codeine 300-30mg 2 tab PO Q6HR PRN 02/18/19 03/15/19 [Tylenol w/codeine #3] Previous Rx's Medication Instructions Recorded Ranitidine HCl [Zantac] 150 mg PO BID #60 tab 01/14/18 Allergies Allergy/AdvReac Type Severity Reaction Status Date / Time amoxicillin [Amoxicillin] AdvReac Mild Yeast Verified 03/15/19 20:06 Infection hydrocodone [From [place]] AdvReac Mild Nausea & Verified 03/15/19 20:06 Vomiting Review of Systems ROS Other: All systems not noted in ROS Statement are negative. <Jerry Álvarez - Last Filed: 03/16/19 00:36> ROS Other: All systems not noted in ROS Statement are negative. <Theresa Real - Last Filed: 03/16/19 21:12> ROS Statement: Those systems with pertinent positive or pertinent negative responses have been documented in the HPI. Past Medical History Past Medical History: GERD/Reflux, Seizure Disorder Additional Past Medical History / Comment(s): last pseudoseizure week & half ago she was then worked up at [facility] and discharged home., placed on atenolol recently for fast heart rate, intermittent vertigo History of Any Multi-Drug Resistant Organisms: None Reported Past Surgical History: Bariatric Surgery, Cholecystectomy, Hysterectomy, Orthopedic Surgery Additional Past Surgical History / Comment(s): LEFT FOOT SX, Right fallopian tube removed; SLEEVE GASTRECTOMY; EGD W DILATION, LAPAROSCOPIC EXAM. 02/12/2019 Robotic Hysterectomy Past Anesthesia/Blood Transfusion Reactions: Motion Sickness, Postoperative Nausea & Vomiting (PONV) Past Psychological History: Panic Disorder Smoking Status: Never smoker Past Alcohol Use History: None Reported Past Drug Use History: None Reported - Past Family History Sister(s) Family Medical History: Cancer, Deep Vein Thrombosis (DVT) Additional Family Medical History / Comment(s): Cervical cancer. Mother Family Medical History: Hyperlipidemia Additional Family Medical History / Comment(s): HEART PROBLEMS, IRREG RYTHM Father Family Medical History: Hyperlipidemia, Hypertension Additional Family Medical History / Comment(s): Paternal grandfather had kidney disorder and colon cancer. <Jerry Álvarez - Last Filed: 03/16/19 00:36> General Exam Limitations: no limitations General appearance: alert, in no apparent distress Head exam: Present: atraumatic, normocephalic, normal inspection Eye exam: Present: normal appearance, PERRL, EOMI. Absent: conjunctival injection Pupils: Present: normal accommodation ENT exam: Present: normal exam, mucous membranes moist, normal external ear exam Neck exam: Present: normal inspection, full ROM Respiratory exam: Present: normal lung sounds bilaterally Cardiovascular Exam: Present: regular rate, normal rhythm, normal heart sounds GI/Abdominal exam: Present: soft. Absent: tenderness, guarding Extremities exam: Present: normal inspection, full ROM, normal capillary refill, other (+2 ulnar radial pulses bilaterally. +2 dorsalis pedis and posterior tibialis bilaterally.) Back exam: Present: normal inspection, full ROM Neurological exam: Present: alert, oriented X3, CN II-XII intact Psychiatric exam: Present: normal affect, normal mood Skin exam: Present: warm <Jerry Álvarez - Last Filed: 03/16/19 00:36> Course Vital Signs 03/15/19 03/15/19 03/15/19 19:54 20:30 21:00 Temperature 99.1 F Pulse Rate 122 H 115 H 99 Respiratory 20 28 H 12 Rate Blood Pressure 148/107 147/102 141/88 O2 Sat by Pulse 96 100 96 Oximetry 03/15/19 03/15/19 03/15/19 21:30 22:00 22:26 Temperature Pulse Rate 96 92 103 H Respiratory 19 17 20 Rate Blood Pressure 117/81 116/79 116/78 O2 Sat by Pulse 97 95 98 Oximetry 03/15/19 03/15/19 03/16/19 23:00 23:30 00:00 Temperature Pulse Rate 95 98 93 Respiratory 25 H 17 19 Rate Blood Pressure 131/88 113/97 129/87 O2 Sat by Pulse 99 98 99 Oximetry 03/16/19 03/16/19 03/16/19 00:30 01:31 02:00 Temperature Pulse Rate 92 75 93 Respiratory 16 15 15 Rate Blood Pressure 130/86 130/89 123/77 O2 Sat by Pulse 97 98 98 Oximetry 03/16/19 02:30 Temperature 98.3 F Pulse Rate 73 Respiratory 13 Rate Blood Pressure 126/92 O2 Sat by Pulse 100 Oximetry Medical Decision Making - Lab Data Result diagrams: 03/15/19 20:00 03/15/19 20:00 <Jerry Álvarez - Last Filed: 03/16/19 00:36> - Lab Data Result diagrams: 03/15/19 20:00 03/15/19 20:00 <Theresa Real - Last Filed: 03/16/19 21:12> - Medical Decision Making Patient is a 28-year-old female with history of stress-induced seizures presenting to emergency Department with a chief complaint of a seizure. Patient reports she was a work when she started to develop blurry vision and white spots which was followed by seizure. Patient was brought to the emergency department. On initial examination patient appears to have a jerky movements in her lower extremities. Patient will not answer questions when prompted. states that the patient was having a seizure. Patient was given 2 mg of Ativan. After demonstration, her symptoms have resolved. Patient still reports a headache, blurry vision and spots. Patient reports typically after seizure she does not have any symptoms leg is. Basic labs were obtained. EKG is unremarkable. On reevaluation patient continues to be experiencing the same symptoms at before. Sternal rub was applied and patient does not appear to responsive. Lactate and creatinine canis workups obtained. Lactic is 3.0. Patient was given fluids. Dr. Real also examined the patient and spoke with Dr. Olivares who states the patient has been examined multiple times every forward and by neurologist and was not diagnosed with seizures. Patient will be admitted for psychiatric evaluation. (Jerry Álvarez) Personally saw and evaluated this patient. This is a 28-year-old female with a history of pseudoseizures. Upon my evaluation the patient had intentional shaking of her upper and lower extremities, when spoken to she would make eye contact would not speak back to me. Upon physical exam patient resisted and pulled against any range of motion testing. When I lifted her arm into the air she kept her arm frozen elevated in the air, the arm did not drop, the shaking subsided. At this time I do not feel the patient is having an active seizure but is pseudo-seizing. I discussed this with her primary care physician Dr. Olivares who is very familiar with the patient, he recommends the patient be evaluated by psychiatry. I advised the patient that I do not think she is having seizures she will not receive any more Ativan for seizures. She will be evaluated by psychiatry. Patient was evaluated by the EPS nurse, at that time the patient had stopped pseudo-seizing was resting comfortably and cooperative. Patient stable for discharge home at this time. (Theresa Real) - Lab Data Lab Results 03/15/19 03/15/19 03/15/19 Range/Units 20:00 20:00 20:00 WBC 6.7 (3.8-10.6) k/uL RBC 4.33 (3.80-5.40) m/uL Hgb 13.0 (11.4-16.0) gm/dL Hct 39.3 (34.0-46.0) % MCV 91.0 (80.0-100.0) fL MCH 30.1 (25.0-35.0) pg MCHC 33.1 (31.0-37.0) g/dL RDW 14.2 (11.5-15.5) % Plt Count 288 (150-450) k/uL Neutrophils % 55 % Lymphocytes % 31 % Monocytes % 7 % Eosinophils % 4 % Basophils % 1 % Neutrophils # 3.6 (1.3-7.7) k/uL Lymphocytes # 2.1 (1.0-4.8) k/uL Monocytes # 0.4 (0-1.0) k/uL Eosinophils # 0.3 (0-0.7) k/uL Basophils # 0.0 (0-0.2) k/uL Sodium 140 (137-145) mmol/L Potassium 4.2 (3.5-5.1) mmol/L Chloride 108 H (98-107) mmol/L Carbon Dioxide 22 (22-30) mmol/L Anion Gap 10 mmol/L BUN 22 H (7-17) mg/dL Creatinine 0.86 (0.52-1.04) mg/dL Est GFR (CKD-EPI)AfAm >90 (>60 ml/min/1.73 sqM) Est GFR (CKD-EPI)NonAf >90 (>60 ml/min/1.73 sqM) Glucose 98 (74-99) mg/dL Lactic Ac Sepsis Rflx Plasma Lactic Acid Roney 3.0 H* (0.7-2.0) mmol/L Calcium 9.1 (8.4-10.2) mg/dL Total Bilirubin 0.1 L (0.2-1.3) mg/dL AST 19 (14-36) U/L ALT 15 (9-52) U/L Alkaline Phosphatase 69 (38-126) U/L Creatine Kinase (30-135) U/L Total Protein 6.9 (6.3-8.2) g/dL Albumin 4.1 (3.5-5.0) g/dL Urine Color Urine Appearance (Clear) Urine pH (5.0-8.0) Ur Specific [place] (1.001-1.035) Urine Protein (Negative) Urine Glucose (UA) (Negative) Urine Ketones (Negative) Urine Blood (Negative) Urine Nitrite (Negative) Urine Bilirubin (Negative) Urine Urobilinogen (<2.0) mg/dL Ur Leukocyte Esterase (Negative) Urine RBC (0-5) /hpf Urine WBC (0-5) /hpf Ur Squamous Epith Cells (0-4) /hpf Urine Mucus (None) /hpf Urine HCG, Qual (Not Detectd) Urine Opiates Screen (NotDetected) Ur Oxycodone Screen (NotDetected) Urine Methadone Screen (NotDetected) Ur Propoxyphene Screen (NotDetected) Ur Barbiturates Screen (NotDetected) U Tricyclic Antidepress (NotDetected) Ur Phencyclidine Scrn (NotDetected) Ur Amphetamines Screen (NotDetected) U Methamphetamines Scrn (NotDetected) U Benzodiazepines Scrn (NotDetected) Urine Cocaine Screen (NotDetected) U Marijuana (THC) Screen (NotDetected) 03/15/19 03/15/19 03/16/19 Range/Units 20:00 23:10 01:30 WBC (3.8-10.6) k/uL RBC (3.80-5.40) m/uL Hgb (11.4-16.0) gm/dL Hct (34.0-46.0) % MCV (80.0-100.0) fL MCH (25.0-35.0) pg MCHC (31.0-37.0) g/dL RDW (11.5-15.5) % Plt Count (150-450) k/uL Neutrophils % % Lymphocytes % % Monocytes % % Eosinophils % % Basophils % % Neutrophils # (1.3-7.7) k/uL Lymphocytes # (1.0-4.8) k/uL Monocytes # (0-1.0) k/uL Eosinophils # (0-0.7) k/uL Basophils # (0-0.2) k/uL Sodium (137-145) mmol/L Potassium (3.5-5.1) mmol/L Chloride (98-107) mmol/L Carbon Dioxide (22-30) mmol/L Anion Gap mmol/L BUN (7-17) mg/dL Creatinine (0.52-1.04) mg/dL Est GFR (CKD-EPI)AfAm (>60 ml/min/1.73 sqM) Est GFR (CKD-EPI)NonAf (>60 ml/min/1.73 sqM) Glucose (74-99) mg/dL Lactic Ac Sepsis Rflx Y Plasma Lactic Acid Roney (0.7-2.0) mmol/L Calcium (8.4-10.2) mg/dL Total Bilirubin (0.2-1.3) mg/dL AST (14-36) U/L ALT (9-52) U/L Alkaline Phosphatase (38-126) U/L Creatine Kinase 52 (30-135) U/L Total Protein (6.3-8.2) g/dL Albumin (3.5-5.0) g/dL Urine Color Urine Appearance (Clear) Urine pH (5.0-8.0) Ur Specific [place] (1.001-1.035) Urine Protein (Negative) Urine Glucose (UA) (Negative) Urine Ketones (Negative) Urine Blood (Negative) Urine Nitrite (Negative) Urine Bilirubin (Negative) Urine Urobilinogen (<2.0) mg/dL Ur Leukocyte Esterase (Negative) Urine RBC (0-5) /hpf Urine WBC (0-5) /hpf Ur Squamous Epith Cells (0-4) /hpf Urine Mucus (None) /hpf Urine HCG, Qual Not Detected (Not Detectd) Urine Opiates Screen (NotDetected) Ur Oxycodone Screen (NotDetected) Urine Methadone Screen (NotDetected) Ur Propoxyphene Screen (NotDetected) Ur Barbiturates Screen (NotDetected) U Tricyclic Antidepress (NotDetected) Ur Phencyclidine Scrn (NotDetected) Ur Amphetamines Screen (NotDetected) U Methamphetamines Scrn (NotDetected) U Benzodiazepines Scrn (NotDetected) Urine Cocaine Screen (NotDetected) U Marijuana (THC) Screen (NotDetected) 03/16/19 03/16/19 03/16/19 Range/Units 01:30 01:30 01:44 WBC (3.8-10.6) k/uL RBC (3.80-5.40) m/uL Hgb (11.4-16.0) gm/dL Hct (34.0-46.0) % MCV (80.0-100.0) fL MCH (25.0-35.0) pg MCHC (31.0-37.0) g/dL RDW (11.5-15.5) % Plt Count (150-450) k/uL Neutrophils % % Lymphocytes % % Monocytes % % Eosinophils % % Basophils % % Neutrophils # (1.3-7.7) k/uL Lymphocytes # (1.0-4.8) k/uL Monocytes # (0-1.0) k/uL Eosinophils # (0-0.7) k/uL Basophils # (0-0.2) k/uL Sodium (137-145) mmol/L Potassium (3.5-5.1) mmol/L Chloride (98-107) mmol/L Carbon Dioxide (22-30) mmol/L Anion Gap mmol/L BUN (7-17) mg/dL Creatinine (0.52-1.04) mg/dL Est GFR (CKD-EPI)AfAm (>60 ml/min/1.73 sqM) Est GFR (CKD-EPI)NonAf (>60 ml/min/1.73 sqM) Glucose (74-99) mg/dL Lactic Ac Sepsis Rflx Plasma Lactic Acid Roney 0.6 L (0.7-2.0) mmol/L Calcium (8.4-10.2) mg/dL Total Bilirubin (0.2-1.3) mg/dL AST (14-36) U/L ALT (9-52) U/L Alkaline Phosphatase (38-126) U/L Creatine Kinase (30-135) U/L Total Protein (6.3-8.2) g/dL Albumin (3.5-5.0) g/dL Urine Color Yellow Urine Appearance Cloudy H (Clear) Urine pH 7.5 (5.0-8.0) Ur Specific [place] 1.022 (1.001-1.035) Urine Protein Trace H (Negative) Urine Glucose (UA) Negative (Negative) Urine Ketones Negative (Negative) Urine Blood Negative (Negative) Urine Nitrite Negative (Negative) Urine Bilirubin Negative (Negative) Urine Urobilinogen <2.0 (<2.0) mg/dL Ur Leukocyte Esterase Large H (Negative) Urine RBC 10 H (0-5) /hpf Urine WBC 8 H (0-5) /hpf Ur Squamous Epith Cells 5 H (0-4) /hpf Urine Mucus Occasional H (None) /hpf Urine HCG, Qual (Not Detectd) Urine Opiates Screen Not Detected (NotDetected) Ur Oxycodone Screen Not Detected (NotDetected) Urine Methadone Screen Not Detected (NotDetected) Ur Propoxyphene Screen Not Detected (NotDetected) Ur Barbiturates Screen Not Detected (NotDetected) U Tricyclic Antidepress Detected H (NotDetected) Ur Phencyclidine Scrn Not Detected (NotDetected) Ur Amphetamines Screen Not Detected (NotDetected) U Methamphetamines Scrn Not Detected (NotDetected) U Benzodiazepines Scrn Detected H (NotDetected) Urine Cocaine Screen Not Detected (NotDetected) U Marijuana (THC) Screen Not Detected (NotDetected) Disposition Is patient prescribed a controlled substance at d/c from ED?: No Time of Disposition: 00:37 <Jerry Álvarez - Last Filed: 03/16/19 00:36> Is patient prescribed a controlled substance at d/c from ED?: No <Theresa Real - Last Filed: 03/16/19 21:12> Clinical Impression: Pseudoseizure Disposition: HOME SELF-CARE Condition: Stable Instructions (If sedation given, give patient instructions): Recurrent Seizures in Adults (ED), New-Onset Seizure in Adults (ED) Referrals: Jacinto Olivares MD [Primary Care Provider] - 1-2 days
[2019-03-15] MEDS ORDERED: SODIUM CHLORIDE 0.9% 1,000 ML IV ONE (23:13)
[2019-03-15] MEDS ORDERED: SODIUM CHLORIDE 0.9% 1,000 ML IV STA (23:38)
[2019-03-16 02:01] LABS: Appearance,Urine Cloudy (Clear); Bilirubin,Urine Negative (Negative); Blood,Urine Negative (Negative); Color,Urine Yellow; Glucose,Urine (UA) Negative (Negative); Ketones,Urine Negative (Negative); Leukocyte Esterase,Urine Large (Negative); Mucus,Urine Occasional /hpf; Nitrite,Urine Negative (Negative); PH, Urine 7.5 (5.0-8.0); Protein,Urine Trace (Negative); RBC,Urine 10 /hpf (0-5); Specific Gravity,Urine 1.022 (1.001-1.035); Squamous Epithelial Cell,Urine 5 /hpf (0-4); Urobilinogen,Urine <2.0 mg/dL (<2.0); WBC,Urine 8 /hpf (0-5)
[2019-03-16 02:07] LABS: Amphetamine Screen,Urine Not Detected (NotDetected); Barbiturate Screen,Urine Not Detected (NotDetected); Benzodiazepines Screen,Urine Detected (NotDetected); Cocaine Screen,Urine Not Detected (NotDetected); Methadone Screen, Urine Not Detected (NotDetected); Opiate Screen,Urine Not Detected (NotDetected); Oxycodone Screen, Urine Not Detected (NotDetected); Phencyclidine Screen,Urine Not Detected (NotDetected); Tricyclic Antidepressant,Urine Detected (NotDetected); Urn Cannabinoid Scrn Not Detected (NotDetected)
[2019-03-16 02:39] VITALS: BP 126/92; PULSE 73; RESP 13; TEMP 98.3
== END 2019-03-16 02:40 | disposition home or self-care (01) ==
LOC: EC 19:43
DX: F44.5 Conversion disorder with seizures or convulsions (principal); H53.8 Other visual disturbances; R51 Headache; F41.0 Panic disorder [episodic paroxysmal anxiety]; Z79.899 Other long term (current) drug therapy; Z88.0 Allergy status to penicillin; Z88.5 Allergy status to narcotic agent; Z98.84 Bariatric surgery status
CPT/HCPCS: 36415 ×2; 93005; 80053; 82550; 83605 ×2; 85025; 81001; 81025; 80306; 99285; 96374; 96375; 96376; 96361; J2060; J1885

== ENCOUNTER 2019-03-19 08:15 | Emergency (ER) | payer BC ==
[2019-03-19 08:22] VITALS: RESP 18; TEMP 98.2
[2019-03-19] MEDS ORDERED: SODIUM CHLORIDE 0.9% 1,000 ML IV ONE (08:45)
[2019-03-19] MEDS ORDERED: LORazepam 2 MG/ML INJ IV STA (08:46)
--- NOTE | 2019-03-19 08:52 | ED ---
Seizure HPI - General Chief Complaint: Seizure Stated Complaint: Seizure Time Seen by Provider: 03/19/19 08:33 Source: patient, RN notes reviewed Mode of arrival: wheelchair Limitations: no limitations - History of Present Illness Initial Comments: This is a 28-year-old female presents emergency Department with chief complaint of feeling that she's been having seizure. Patient has had several ER visits and hospitalizations recently for recurrent seizures. Patient was transferred on to [facility] 2 weeks ago for evaluation and states that they changed her medications from Topamax to Vimpat. Patient did have a seizure couple days ago. Patient states that they diagnosed her with pseudoseizures. Patient states that she call her PCP who advised her to come the ER if she is having more issues. Patient denies any current chest pain, nausea, vomiting, focal weakness. Patient complaint of intermittent headaches but these are unchanged. Patient states she just feels foggy feels that she is going to have another seizure. Patient does not have a current neurologist secondary to insurance issues. Patient is scheduled see Dr. Stevenson. Patient also has been started on atenolol for tachycardia. Patient does not complain of any palpi tations or chest discomfort - Related Data Home Medications Medication Instructions Recorded Confirmed Zolpidem Tartrate [Ambien Cr] 12.5 mg PO HS 01/13/18 03/19/19 Metoclopramide HCl [Reglan] 5 mg PO TID 07/30/18 03/19/19 ALPRAZolam [Xanax] 1 mg PO HS PRN 10/01/18 03/19/19 Lacosamide [Vimpat] 100 mg PO BID 02/12/19 03/19/19 Galcanezumab-Gnlm [Emgality 120 mg SQ Q28D 03/19/19 03/19/19 Syringe] Previous Rx's Medication Instructions Recorded Ranitidine HCl [Zantac] 150 mg PO BID #60 tab 01/14/18 Allergies Allergy/AdvReac Type Severity Reaction Status Date / Time amoxicillin [Amoxicillin] AdvReac Mild Yeast Verified 03/19/19 09:04 Infection hydrocodone [From [place]] AdvReac Mild Nausea & Verified 03/19/19 09:04 Vomiting Review of Systems ROS Statement: Those systems with pertinent positive or pertinent negative responses have been documented in the HPI. ROS Other: All systems not noted in ROS Statement are negative. Past Medical History Past Medical History: GERD/Reflux, Seizure Disorder Additional Past Medical History / Comment(s): last pseudoseizure week & half ago she was then worked up at [facility] and discharged home., placed on atenolol recently for fast heart rate, intermittent vertigo History of Any Multi-Drug Resistant Organisms: None Reported Past Surgical History: Bariatric Surgery, Cholecystectomy, Hysterectomy, Orthopedic Surgery Additional Past Surgical History / Comment(s): LEFT FOOT SX, Right fallopian tube removed; SLEEVE GASTRECTOMY; EGD W DILATION, LAPAROSCOPIC EXAM. 02/12/2019 Robotic Hysterectomy Past Anesthesia/Blood Transfusion Reactions: Motion Sickness, Postoperative Nausea & Vomiting (PONV) Past Psychological History: Panic Disorder Smoking Status: Never smoker Past Alcohol Use History: None Reported Past Drug Use History: None Reported - Past Family History Sister(s) Family Medical History: Cancer, Deep Vein Thrombosis (DVT) Additional Family Medical History / Comment(s): Cervical cancer. Mother Family Medical History: Hyperlipidemia Additional Family Medical History / Comment(s): HEART PROBLEMS, IRREG RYTHM Father Family Medical History: Hyperlipidemia, Hypertension Additional Family Medical History / Comment(s): Paternal grandfather had kidney disorder and colon cancer. General Exam Limitations: no limitations General appearance: alert, in no apparent distress Head exam: Present: atraumatic, normocephalic, normal inspection Eye exam: Present: normal appearance, PERRL, EOMI. Absent: scleral icterus, conjunctival injection, periorbital swelling ENT exam: Present: normal exam, normal oropharynx, mucous membranes moist Neck exam: Present: normal inspection, full ROM. Absent: tenderness, meningismus, lymphadenopathy Respiratory exam: Present: normal lung sounds bilaterally. Absent: respiratory distress, wheezes, rales, rhonchi, stridor Cardiovascular Exam: Present: normal rhythm, tachycardia, normal heart sounds. Absent: systolic murmur, diastolic murmur, rubs, gallop, clicks GI/Abdominal exam: Present: soft, normal bowel sounds. Absent: distended, tenderness, guarding, rebound, rigid Neurological exam: Present: alert, oriented X3, CN II-XII intact, reflexes normal. Absent: motor sensory deficit Skin exam: Present: warm, dry, intact, normal color. Absent: rash Course Vital Signs 03/19/19 03/19/19 03/19/19 08:16 08:40 09:00 Temperature 98.2 F Pulse Rate 127 H 126 H 105 H Respiratory 18 18 18 Rate Blood Pressure 132/86 135/91 O2 Sat by Pulse 99 99 99 Oximetry 03/19/19 03/19/19 03/19/19 09:30 10:00 10:30 Temperature Pulse Rate 131 H 112 H 112 H Respiratory 18 18 18 Rate Blood Pressure 129/82 139/101 132/85 O2 Sat by Pulse 100 100 100 Oximetry 03/19/19 11:25 Temperature Pulse Rate 106 H Respiratory 18 Rate Blood Pressure 120/82 O2 Sat by Pulse 100 Oximetry Medical Decision Making - Medical Decision Making 28-year-old female presented for suspected seizure or feeling that she may have a seizure. Patient has a negative workup. Patient does have persistent tachycardia and which EKG and d-dimer added negative d-dimer which is no concern for PE at this time. She has no chest pain or shortness breath. Patient's tachycardia the past in which she has been started on medication. Patient case discussed with her primary care physician in which she has an appointment in 2 hours patient may be discharged and will follow-up in his office today. - Lab Data Result diagrams: 03/19/19 08:39 03/19/19 08:39 Lab Results 03/19/19 03/19/19 03/19/19 Range/Units 08:39 08:39 08:39 WBC 10.7 H (3.8-10.6) k/uL RBC 4.33 (3.80-5.40) m/uL Hgb 13.2 (11.4-16.0) gm/dL Hct 38.7 (34.0-46.0) % MCV 89.3 (80.0-100.0) fL MCH 30.4 (25.0-35.0) pg MCHC 34.1 (31.0-37.0) g/dL RDW 12.8 (11.5-15.5) % Plt Count 278 (150-450) k/uL Neutrophils % 86 % Lymphocytes % 9 % Monocytes % 4 % Eosinophils % 1 % Basophils % 0 % Neutrophils # 9.2 H (1.3-7.7) k/uL Lymphocytes # 0.9 L (1.0-4.8) k/uL Monocytes # 0.4 (0-1.0) k/uL Eosinophils # 0.1 (0-0.7) k/uL Basophils # 0.0 (0-0.2) k/uL D-Dimer 0.45 (<0.60) mg/L FEU Sodium 140 (137-145) mmol/L Potassium 3.7 (3.5-5.1) mmol/L Chloride 107 (98-107) mmol/L Carbon Dioxide 20 L (22-30) mmol/L Anion Gap 13 mmol/L BUN 18 H (7-17) mg/dL Creatinine 0.83 (0.52-1.04) mg/dL Est GFR (CKD-EPI)AfAm >90 (>60 ml/min/1.73 sqM) Est GFR (CKD-EPI)NonAf >90 (>60 ml/min/1.73 sqM) Glucose 121 H (74-99) mg/dL Calcium 9.9 (8.4-10.2) mg/dL Total Bilirubin 0.5 (0.2-1.3) mg/dL AST 20 (14-36) U/L ALT 18 (9-52) U/L Alkaline Phosphatase 77 (38-126) U/L Total Protein 7.5 (6.3-8.2) g/dL Albumin 4.3 (3.5-5.0) g/dL Disposition Clinical Impression: Seizure disorder, Tachycardia Disposition: HOME SELF-CARE Condition: Stable Instructions (If sedation given, give patient instructions): Recurrent Seizures in Adults (ED) Additional Instructions: Please return to the Emergency Department if symptoms worsen or any other concerns. Is patient prescribed a controlled substance at d/c from ED?: No Referrals: Jacinto Olivares MD [Primary Care Provider] - 1-2 days Time of Disposition: 11:30
[2019-03-19 08:55] LABS: Basophils % (A) 0 %; Eosinophils # (A) 0.1 k/uL (0-0.7); Eosinophils % (A) 1 %; HCT 38.7 % (34.0-46.0); HGB 13.2 gm/dL (11.4-16.0); Lymphocytes # (A) 0.9 k/uL (1.0-4.8); Lymphocytes % (A) 9 %; MCH 30.4 pg (25.0-35.0); MCHC 34.1 g/dL (31.0-37.0); MCV 89.3 fL (80.0-100.0); Mean Platelet Volume 6.6; Monocytes # (A) 0.4 k/uL (0-1.0); Monocytes % (A) 4 %; Neutrophils # (A) 9.2 k/uL (1.3-7.7); Neutrophils % (A) 86 %; Platelet Count 278 k/uL (150-450); RBC 4.33 m/uL (3.80-5.40); RDW 12.8 % (11.5-15.5); WBC 10.7 k/uL (3.8-10.6)
[2019-03-19 09:06] LABS: ALT 18 U/L (9-52); AST 20 U/L (14-36); African American GFR (CKD) >90 (>60 ml/min/1.73 sqM); Albumin 4.3 g/dL (3.5-5.0); Alkaline Phosphatase 77 U/L (38-126); Anion Gap 13 mmol/L; Blood Urea Nitrogen 18 mg/dL (7-17); Calcium 9.9 mg/dL (8.4-10.2); Carbon Dioxide 20 mmol/L (22-30); Chloride 107 mmol/L (98-107); Glucose 121 mg/dL (74-99); Potassium 3.7 mmol/L (3.5-5.1); Sodium 140 mmol/L (137-145); Total Bilirubin 0.5 mg/dL (0.2-1.3); Total Protein 7.5 g/dL (6.3-8.2)
[2019-03-19] MEDS ORDERED: KETOROLAC 30 MG/ML 1 ML VIAL IVP STA (10:38)
[2019-03-19 11:26] VITALS: BP 120/82; PULSE 106
== END 2019-03-19 11:54 | disposition home or self-care (01) ==
LOC: EC 08:15
DX: G40.909 Epilepsy, unspecified, not intractable, without status epilepticus (principal); R00.0 Tachycardia, unspecified; R51 Headache; Z79.899 Other long term (current) drug therapy; Z88.0 Allergy status to penicillin; Z88.5 Allergy status to narcotic agent
CPT/HCPCS: 36415; 93005; 85379; 80053; 85025; 99284; 96374; 96375; J2060; J1885

== ENCOUNTER 2019-03-22 00:04 | Emergency (ER) | payer BC ==
[2019-03-22] MEDS ORDERED: diphenhydrAMINE 50 MG/ML 1 ML VIAL IVP STA (00:55)
[2019-03-22] MEDS ORDERED: METOCLOPRAMIDE 5 MG/ML 2 ML VIAL IVP STA (00:55)
[2019-03-22] MEDS ORDERED: KETOROLAC 30 MG/ML 1 ML VIAL IVP STA (00:55)
[2019-03-22] MEDS ORDERED: SODIUM CHLORIDE 0.9% 1,000 ML IV ONE (00:55)
--- NOTE | 2019-03-22 01:49 | CT ---
EXAM: CT Head Without Intravenous Contrast CLINICAL HISTORY: Headache. TECHNIQUE: Axial computed tomography images of the head/brain without intravenous contrast. CTDI is 49.1 mGy and DLP is 1032 mGy-cm. This CT exam was performed using one or more of the following dose reduction techniques: automated exposure control, adjustment of the mA and/or kV according to patient size, and/or use of iterative reconstruction technique. COMPARISON: 10/01/2018. FINDINGS: Brain: No abnormal periventricular densities are noted. No hemorrhage. Midline shift: There is no midline shift or mass-effect. Ventricles: The ventricular system is age appropriate. Bones/joints: Bony skull is unremarkable. No acute fracture. Soft tissues: Unremarkable. Sinuses: Unremarkable as visualized. No acute sinusitis. Mastoid air cells: Visualized sinuses and mastoid air cells are unremarkable. IMPRESSION: No acute intracranial pathology, similar to the previous study.
[2019-03-22 01:50] LABS: Basophils % (A) 0 %; Eosinophils # (A) 0.3 k/uL (0-0.7); Eosinophils % (A) 4 %; HCT 38.2 % (34.0-46.0); HGB 12.8 gm/dL (11.4-16.0); Lymphocytes # (A) 1.9 k/uL (1.0-4.8); Lymphocytes % (A) 23 %; MCH 30.2 pg (25.0-35.0); MCHC 33.6 g/dL (31.0-37.0); Mean Platelet Volume 6.6; Monocytes # (A) 0.5 k/uL (0-1.0); Monocytes % (A) 6 %; Neutrophils # (A) 5.4 k/uL (1.3-7.7); Neutrophils % (A) 65 %; Platelet Count 272 k/uL (150-450); RBC 4.24 m/uL (3.80-5.40); WBC 8.4 k/uL (3.8-10.6)
[2019-03-22] MEDS ORDERED: KETOROLAC 30 MG/ML 1 ML VIAL IM STA (01:57)
[2019-03-22 02:01] LABS: ALT 19 U/L (9-52); AST 26 U/L (14-36); African American GFR (CKD) >90 (>60 ml/min/1.73 sqM); Albumin 4.1 g/dL (3.5-5.0); Alkaline Phosphatase 72 U/L (38-126); Anion Gap 12 mmol/L; Blood Urea Nitrogen 25 mg/dL (7-17); Calcium 8.9 mg/dL (8.4-10.2); Carbon Dioxide 22 mmol/L (22-30); Chloride 105 mmol/L (98-107); Glucose 87 mg/dL (74-99); Potassium 4.3 mmol/L (3.5-5.1); Sodium 139 mmol/L (137-145); Total Bilirubin 0.3 mg/dL (0.2-1.3); Total Protein 7.1 g/dL (6.3-8.2)
[2019-03-22 02:07] LABS: Appearance,Urine Cloudy (Clear); Bacteria,Urine Occasional /hpf; Bilirubin,Urine Negative (Negative); Blood,Urine Negative (Negative); Color,Urine Yellow; Glucose,Urine (UA) Negative (Negative); Hyaline Casts,Urine 2 /lpf (0-2); Ketones,Urine Negative (Negative); Leukocyte Esterase,Urine Small (Negative); Mucus,Urine Rare /hpf; Nitrite,Urine Negative (Negative); Protein,Urine Negative (Negative); RBC,Urine 2 /hpf (0-5); Specific Gravity,Urine 1.021 (1.001-1.035); Squamous Epithelial Cell,Urine 14 /hpf (0-4); Urobilinogen,Urine <2.0 mg/dL (<2.0); WBC,Urine 12 /hpf (0-5)
[2019-03-22 02:14] LABS: Amphetamine Screen,Urine Not Detected (NotDetected); Barbiturate Screen,Urine Not Detected (NotDetected); Benzodiazepines Screen,Urine Detected (NotDetected); Cocaine Screen,Urine Not Detected (NotDetected); Methadone Screen, Urine Not Detected (NotDetected); Opiate Screen,Urine Detected (NotDetected); Oxycodone Screen, Urine Not Detected (NotDetected); Phencyclidine Screen,Urine Not Detected (NotDetected); Tricyclic Antidepressant,Urine Detected (NotDetected); Urn Cannabinoid Scrn Not Detected (NotDetected)
[2019-03-22] MEDS ORDERED: DEXAMETHASONE SOD PHOSPHATE 10 MG/ML 1 ML VIAL IV STA (02:59)
--- NOTE | 2019-03-22 02:59 | ED ---
Headache HPI - General Chief Complaint: Headache Stated Complaint: Head Pain Time Seen by Provider: 03/22/19 00:26 Mode of arrival: ambulatory Limitations: no limitations - History of Present Illness Initial Comments: 28-year-old female patient with past medical history significant for migraine headache presents to the emergency department today for evaluation of migraine headache. Patient's that she's had a headache for the last 2-3 days. Patient states she does receive injections for these headaches but doesn't seem to be helping. Patient states that she is having black spots in her vision. States that she does feel dizzy. She reports some nausea but denies any vomiting. Denies any numbness, tingling, or weakness to her extremities. States that she feels as though her head is in a "fishbowl", but she is unable to describe what this means. 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 She is taking Vimpat. She does have an MRI of her brain scheduled for Saturday. Patient denies any recent rash, fever, chills, shortness breath, chest pain, abdominal pain, diarrhea, constipation, back pain, numbness, tingling, dizziness, weakness, hematuria, dysuria, urinary urgency, urinary frequency, or any other complaints. - Related Data Home Medications Medication Instructions Recorded Confirmed Zolpidem Tartrate [Ambien Cr] 12.5 mg PO HS 01/13/18 03/22/19 Metoclopramide HCl [Reglan] 5 mg PO TID 07/30/18 03/22/19 ALPRAZolam [Xanax] 1 mg PO HS PRN 10/01/18 03/22/19 Lacosamide [Vimpat] 100 mg PO BID 02/12/19 03/22/19 Galcanezumab-Gnlm [Emgality 120 mg SQ Q28D 03/19/19 03/22/19 Syringe] Previous Rx's Medication Instructions Recorded Ranitidine HCl [Zantac] 150 mg PO BID #60 tab 01/14/18 Allergies Allergy/AdvReac Type Severity Reaction Status Date / Time amoxicillin [Amoxicillin] AdvReac Mild Yeast Verified 03/19/19 09:04 Infection hydrocodone [From [place]] AdvReac Mild Nausea & Verified 03/19/19 09:04 Vomiting Review of Systems ROS Statement: Those systems with pertinent positive or pertinent negative responses have been documented in the HPI. ROS Other: All systems not noted in ROS Statement are negative. Past Medical History Past Medical History: GERD/Reflux, Seizure Disorder Additional Past Medical History / Comment(s): last pseudoseizure week & half ago she was then worked up at [facility] and discharged home., placed on atenolol recently for fast heart rate, intermittent vertigo History of Any Multi-Drug Resistant Organisms: None Reported Past Surgical History: Bariatric Surgery, Cholecystectomy, Hysterectomy, Orthopedic Surgery Additional Past Surgical History / Comment(s): LEFT FOOT SX, Right fallopian tube removed; SLEEVE GASTRECTOMY; EGD W DILATION, LAPAROSCOPIC EXAM. 02/12/2019 Robotic Hysterectomy Past Anesthesia/Blood Transfusion Reactions: Motion Sickness, Postoperative Nausea & Vomiting (PONV) Past Psychological History: Panic Disorder Smoking Status: Never smoker Past Alcohol Use History: None Reported Past Drug Use History: None Reported - Past Family History Sister(s) Family Medical History: Cancer, Deep Vein Thrombosis (DVT) Additional Family Medical History / Comment(s): Cervical cancer. Mother Family Medical History: Hyperlipidemia Additional Family Medical History / Comment(s): HEART PROBLEMS, IRREG RYTHM Father Family Medical History: Hyperlipidemia, Hypertension Additional Family Medical History / Comment(s): Paternal grandfather had kidney disorder and colon cancer. General Exam Limitations: no limitations General appearance: alert, in no apparent distress, other (This is a well- developed, well-nourished adult female patient in no acute distress. Vital signs upon presentation are temperature 97.4F, pulse 107, respirations 20, blood pressure 127/85, pulse ox 100% on room air.) Eye exam: Present: normal appearance, PERRL, EOMI. Absent: scleral icterus, conjunctival injection, periorbital swelling ENT exam: Present: normal exam, normal oropharynx, mucous membranes moist Respiratory exam: Present: normal lung sounds bilaterally. Absent: respiratory distress, wheezes, rales, rhonchi, stridor Cardiovascular Exam: Present: regular rate, normal rhythm, normal heart sounds. Absent: systolic murmur, diastolic murmur, rubs, gallop, clicks GI/Abdominal exam: Present: soft, normal bowel sounds. Absent: distended, tenderness, guarding, rebound, rigid Neurological exam: Present: alert, oriented X3, CN II-XII intact, other (Strength in all 4 extremities is 5/5.) Psychiatric exam: Present: normal affect, normal mood Skin exam: Present: warm, dry, intact, normal color. Absent: rash Course Vital Signs 03/22/19 03/22/19 00:15 03:28 Temperature 97.4 F L 97.8 F Pulse Rate 107 H 83 Respiratory 20 18 Rate Blood Pressure 127/85 112/80 O2 Sat by Pulse 100 100 Oximetry Medical Decision Making - Medical Decision Making 28-year-old female patient presented to the emergency department today for evaluation of headache and feeling unwell. Physical examination is unremarkable. She is neurologically intact with no focal deficits. Labs reviewed and are unremarkable. CT brain was unremarkable. To be discharged home to follow-up with her primary care physician. Return parameters were discussed in detail. She verbalizes understanding and agrees with this plan. - Lab Data Result diagrams: 03/22/19 01:30 03/22/19 01:30 Lab Results 03/22/19 03/22/19 03/22/19 Range/Units 01:30 01:30 01:30 WBC 8.4 (3.8-10.6) k/uL RBC 4.24 (3.80-5.40) m/uL Hgb 12.8 (11.4-16.0) gm/dL Hct 38.2 (34.0-46.0) % MCV 90.0 (80.0-100.0) fL MCH 30.2 (25.0-35.0) pg MCHC 33.6 (31.0-37.0) g/dL RDW 13.0 (11.5-15.5) % Plt Count 272 (150-450) k/uL Neutrophils % 65 % Lymphocytes % 23 % Monocytes % 6 % Eosinophils % 4 % Basophils % 0 % Neutrophils # 5.4 (1.3-7.7) k/uL Lymphocytes # 1.9 (1.0-4.8) k/uL Monocytes # 0.5 (0-1.0) k/uL Eosinophils # 0.3 (0-0.7) k/uL Basophils # 0.0 (0-0.2) k/uL Sodium 139 (137-145) mmol/L Potassium 4.3 (3.5-5.1) mmol/L Chloride 105 (98-107) mmol/L Carbon Dioxide 22 (22-30) mmol/L Anion Gap 12 mmol/L BUN 25 H (7-17) mg/dL Creatinine 0.84 (0.52-1.04) mg/dL Est GFR (CKD-EPI)AfAm >90 (>60 ml/min/1.73 sqM) Est GFR (CKD-EPI)NonAf >90 (>60 ml/min/1.73 sqM) Glucose 87 (74-99) mg/dL Calcium 8.9 (8.4-10.2) mg/dL Magnesium 2.0 (1.6-2.3) mg/dL Total Bilirubin 0.3 (0.2-1.3) mg/dL AST 26 (14-36) U/L ALT 19 (9-52) U/L Alkaline Phosphatase 72 (38-126) U/L Total Protein 7.1 (6.3-8.2) g/dL Albumin 4.1 (3.5-5.0) g/dL TSH 2.670 (0.465-4.680) mIU/L Urine Color Yellow Urine Appearance Cloudy H (Clear) Urine pH 6.0 (5.0-8.0) Ur Specific [place] 1.021 (1.001-1.035) Urine Protein Negative (Negative) Urine Glucose (UA) Negative (Negative) Urine Ketones Negative (Negative) Urine Blood Negative (Negative) Urine Nitrite Negative (Negative) Urine Bilirubin Negative (Negative) Urine Urobilinogen <2.0 (<2.0) mg/dL Ur Leukocyte Esterase Small H (Negative) Urine RBC 2 (0-5) /hpf Urine WBC 12 H (0-5) /hpf Ur Squamous Epith Cells 14 H (0-4) /hpf Urine Bacteria Occasional H (None) /hpf Hyaline Casts 2 (0-2) /lpf Urine Mucus Rare H (None) /hpf Urine HCG, Qual (Not Detectd) Urine Opiates Screen Detected H (NotDetected) Ur Oxycodone Screen Not Detected (NotDetected) Urine Methadone Screen Not Detected (NotDetected) Ur Propoxyphene Screen Not Detected (NotDetected) Ur Barbiturates Screen Not Detected (NotDetected) U Tricyclic Antidepress Detected H (NotDetected) Ur Phencyclidine Scrn Not Detected (NotDetected) Ur Amphetamines Screen Not Detected (NotDetected) U Methamphetamines Scrn Not Detected (NotDetected) U Benzodiazepines Scrn Detected H (NotDetected) Urine Cocaine Screen Not Detected (NotDetected) U Marijuana (THC) Screen Not Detected (NotDetected) 03/22/19 Range/Units 01:30 WBC (3.8-10.6) k/uL RBC (3.80-5.40) m/uL Hgb (11.4-16.0) gm/dL Hct (34.0-46.0) % MCV (80.0-100.0) fL MCH (25.0-35.0) pg MCHC (31.0-37.0) g/dL RDW (11.5-15.5) % Plt Count (150-450) k/uL Neutrophils % % Lymphocytes % % Monocytes % % Eosinophils % % Basophils % % Neutrophils # (1.3-7.7) k/uL Lymphocytes # (1.0-4.8) k/uL Monocytes # (0-1.0) k/uL Eosinophils # (0-0.7) k/uL Basophils # (0-0.2) k/uL Sodium (137-145) mmol/L Potassium (3.5-5.1) mmol/L Chloride (98-107) mmol/L Carbon Dioxide (22-30) mmol/L Anion Gap mmol/L BUN (7-17) mg/dL Creatinine (0.52-1.04) mg/dL Est GFR (CKD-EPI)AfAm (>60 ml/min/1.73 sqM) Est GFR (CKD-EPI)NonAf (>60 ml/min/1.73 sqM) Glucose (74-99) mg/dL Calcium (8.4-10.2) mg/dL Magnesium (1.6-2.3) mg/dL Total Bilirubin (0.2-1.3) mg/dL AST (14-36) U/L ALT (9-52) U/L Alkaline Phosphatase (38-126) U/L Total Protein (6.3-8.2) g/dL Albumin (3.5-5.0) g/dL TSH (0.465-4.680) mIU/L Urine Color Urine Appearance (Clear) Urine pH (5.0-8.0) Ur Specific [place] (1.001-1.035) Urine Protein (Negative) Urine Glucose (UA) (Negative) Urine Ketones (Negative) Urine Blood (Negative) Urine Nitrite (Negative) Urine Bilirubin (Negative) Urine Urobilinogen (<2.0) mg/dL Ur Leukocyte Esterase (Negative) Urine RBC (0-5) /hpf Urine WBC (0-5) /hpf Ur Squamous Epith Cells (0-4) /hpf Urine Bacteria (None) /hpf Hyaline Casts (0-2) /lpf Urine Mucus (None) /hpf Urine HCG, Qual Not Detected (Not Detectd) Urine Opiates Screen (NotDetected) Ur Oxycodone Screen (NotDetected) Urine Methadone Screen (NotDetected) Ur Propoxyphene Screen (NotDetected) Ur Barbiturates Screen (NotDetected) U Tricyclic Antidepress (NotDetected) Ur Phencyclidine Scrn (NotDetected) Ur Amphetamines Screen (NotDetected) U Methamphetamines Scrn (NotDetected) U Benzodiazepines Scrn (NotDetected) Urine Cocaine Screen (NotDetected) U Marijuana (THC) Screen (NotDetected) - Radiology Data Radiology results: report reviewed, image reviewed CT brain was obtained. Report was reviewed in its entirety. Impression by Dr. Hardin shows no acute intracranial pathology, similar to the previous study. Disposition Clinical Impression: Migraine headache Disposition: HOME SELF-CARE Condition: Good Instructions (If sedation given, give patient instructions): Migraine Headache (ED) Additional Instructions: Increase fluids. Follow-up with your primary care physician. Return to the emergency department immediately for any new, worsening, or concerning symptoms. Is patient prescribed a controlled substance at d/c from ED?: No Referrals: Jacinto Olivares MD [Primary Care Provider] - 1-2 days Time of Disposition: 02:59
[2019-03-22 03:29] VITALS: BP 112/80; PULSE 83; RESP 18; TEMP 97.8
== END 2019-03-22 03:32 | disposition home or self-care (01) ==
LOC: EC 00:04
DX: G43.909 Migraine, unspecified, not intractable, without status migrainosus (principal); G40.909 Epilepsy, unspecified, not intractable, without status epilepticus; Z79.899 Other long term (current) drug therapy; Z88.0 Allergy status to penicillin; Z88.5 Allergy status to narcotic agent; Z53.29 Procedure and treatment not carried out because of patient's decision for other reasons
CPT/HCPCS: 36415; 80053; 84443; 83735; 85025; 81001; 81025; 80306; 70450; 99284; 96374; 96375 ×2; 96361 ×2; J1200; J1100; J1885

== ENCOUNTER 2019-03-22 15:55 | Emergency (ER) | payer BC ==
[2019-03-22 16:37] VITALS: RESP 18; TEMP 97.9
[2019-03-22] MEDS ORDERED: LORazepam 2 MG/ML INJ IV STA (16:43)
[2019-03-22] MEDS ORDERED: KETOROLAC 30 MG/ML 1 ML VIAL IVP STA (16:43)
[2019-03-22] MEDS ORDERED: SODIUM CHLORIDE 0.9% 1,000 ML IV STA ×2 (16:43→18:11)
--- NOTE | 2019-03-22 16:54 | ED ---
Seizure HPI - General Chief Complaint: Seizure Stated Complaint: Seizure Time Seen by Provider: 03/22/19 16:25 Source: patient, EMS, RN notes reviewed, old records reviewed Mode of arrival: EMS Limitations: no limitations - History of Present Illness Initial Comments: This is a 28-year-old female who has a diagnosis of a seizure versus pseudoseizure disorder per family induced by stress who presents by EMS today with complaints of a possible seizure prior to arrival the patient is unable to tell me what she experienced a family member did not see anything in particular. Upon arrival she started complaining of pain with breathing in her throat. She denies any fevers chills nausea vomiting sweats she does have anxiety disorder and does demonstrate anxiety that this time per family she has had recent evaluations for the above. Stated including a workup at [facility]. This also included changes in her medication. MD Complaint: possible seizure - Related Data Home Medications Medication Instructions Recorded Confirmed Zolpidem Tartrate [Ambien Cr] 12.5 mg PO HS 01/13/18 03/22/19 Metoclopramide HCl [Reglan] 5 mg PO TID 07/30/18 03/22/19 ALPRAZolam [Xanax] 1 mg PO HS PRN 10/01/18 03/22/19 Lacosamide [Vimpat] 100 mg PO BID 02/12/19 03/22/19 Galcanezumab-Gnlm [Emgality 120 mg SQ Q28D 03/19/19 03/22/19 Syringe] Previous Rx's Medication Instructions Recorded Ranitidine HCl [Zantac] 150 mg PO BID #60 tab 01/14/18 Allergies Allergy/AdvReac Type Severity Reaction Status Date / Time amoxicillin [Amoxicillin] AdvReac Mild Yeast Verified 03/22/19 15:59 Infection hydrocodone [From [place]] AdvReac Mild Nausea & Verified 03/22/19 15:59 Vomiting Review of Systems ROS Statement: Those systems with pertinent positive or pertinent negative responses have been documented in the HPI. ROS Other: All systems not noted in ROS Statement are negative. Past Medical History Past Medical History: GERD/Reflux, Seizure Disorder Additional Past Medical History / Comment(s): last pseudoseizure week & half ago she was then worked up at [facility] and discharged home., placed on atenolol recently for fast heart rate, intermittent vertigo History of Any Multi-Drug Resistant Organisms: None Reported Past Surgical History: Bariatric Surgery, Cholecystectomy, Hysterectomy, Orthopedic Surgery Additional Past Surgical History / Comment(s): LEFT FOOT SX, Right fallopian tube removed; SLEEVE GASTRECTOMY; EGD W DILATION, LAPAROSCOPIC EXAM. 02/12/2019 Robotic Hysterectomy Past Anesthesia/Blood Transfusion Reactions: Motion Sickness, Postoperative Nausea & Vomiting (PONV) Past Psychological History: Panic Disorder Smoking Status: Never smoker Past Alcohol Use History: None Reported Past Drug Use History: None Reported - Past Family History Sister(s) Family Medical History: Cancer, Deep Vein Thrombosis (DVT) Additional Family Medical History / Comment(s): Cervical cancer. Mother Family Medical History: Hyperlipidemia Additional Family Medical History / Comment(s): HEART PROBLEMS, IRREG RYTHM Father Family Medical History: Hyperlipidemia, Hypertension Additional Family Medical History / Comment(s): Paternal grandfather had kidney disorder and colon cancer. General Exam - General Exam Comments Initial Comments: This a well-developed well-nourished awake alert anxious appearing female she is demonstrating hyperventilation Limitations: no limitations General appearance: alert, anxious Head exam: Present: atraumatic, normocephalic, normal inspection Eye exam: Present: normal appearance, PERRL, EOMI. Absent: scleral icterus, conjunctival injection, periorbital swelling ENT exam: Present: normal exam, mucous membranes moist Neck exam: Present: normal inspection, full ROM, other (No stridor JVD or bruits). Absent: tenderness, meningismus, lymphadenopathy Respiratory exam: Present: normal lung sounds bilaterally. Absent: respiratory distress, wheezes, rales, rhonchi, stridor Cardiovascular Exam: Present: normal rhythm, tachycardia, normal heart sounds. Absent: systolic murmur, diastolic murmur, rubs, gallop, clicks GI/Abdominal exam: Present: soft, normal bowel sounds. Absent: distended, tenderness, guarding, rebound, rigid Extremities exam: Present: normal inspection, full ROM, normal capillary refill. Absent: tenderness, pedal edema, joint swelling, calf tenderness Back exam: Present: normal inspection Neurological exam: Present: alert, oriented X3, CN II-XII intact Psychiatric exam: Present: normal affect, normal mood Skin exam: Present: warm, dry, intact, normal color. Absent: rash Course Vital Signs 03/22/19 03/22/19 15:58 18:00 Temperature 97.9 F Pulse Rate 108 H 77 Respiratory 18 18 Rate Blood Pressure 121/81 119/74 O2 Sat by Pulse 100 98 Oximetry Medical Decision Making - Medical Decision Making Patient's been reevaluated on several occasions she is improved after medicat ions were rendered. The fluids discuss this with the patient and her . - Lab Data Result diagrams: 03/22/19 16:06 03/22/19 16:06 Lab Results 03/22/19 03/22/19 Range/Units 16:06 16:06 WBC 13.3 H (3.8-10.6) k/uL RBC 4.19 (3.80-5.40) m/uL Hgb 12.5 (11.4-16.0) gm/dL Hct 38.3 (34.0-46.0) % MCV 91.4 (80.0-100.0) fL MCH 29.7 (25.0-35.0) pg MCHC 32.5 (31.0-37.0) g/dL RDW 14.9 (11.5-15.5) % Plt Count 330 (150-450) k/uL Neutrophils % 83 % Lymphocytes % 7 % Monocytes % 6 % Eosinophils % 1 % Basophils % 0 % Neutrophils # 11.0 H (1.3-7.7) k/uL Lymphocytes # 1.0 (1.0-4.8) k/uL Monocytes # 0.8 (0-1.0) k/uL Eosinophils # 0.2 (0-0.7) k/uL Basophils # 0.0 (0-0.2) k/uL Sodium 146 H (137-145) mmol/L Potassium 4.6 (3.5-5.1) mmol/L Chloride 111 H (98-107) mmol/L Carbon Dioxide 23 (22-30) mmol/L Anion Gap 12 mmol/L BUN 21 H (7-17) mg/dL Creatinine 0.90 (0.52-1.04) mg/dL Est GFR (CKD-EPI)AfAm >90 (>60 ml/min/1.73 sqM) Est GFR (CKD-EPI)NonAf 87 (>60 ml/min/1.73 sqM) Glucose 81 (74-99) mg/dL Calcium 9.3 (8.4-10.2) mg/dL Magnesium 2.1 (1.6-2.3) mg/dL Total Bilirubin 0.3 (0.2-1.3) mg/dL AST 21 (14-36) U/L ALT 14 (9-52) U/L Alkaline Phosphatase 69 (38-126) U/L Creatine Kinase 29 L (30-135) U/L Total Protein 7.2 (6.3-8.2) g/dL Albumin 4.1 (3.5-5.0) g/dL - EKG Data -: EKG Interpreted by [place] EKG shows normal: sinus rhythm (Normal sinus rhythm of 100 NH interval 128 QRS duration 84 QT since QTC 342/[address]-T wave changes) Disposition Clinical Impression: Anxiety reaction, Dehydration Disposition: HOME SELF-CARE Condition: Good Instructions (If sedation given, give patient instructions): Anxiety (ED), De hydration (ED) Is patient prescribed a controlled substance at d/c from ED?: No Referrals: Jacinto Olivares MD [Primary Care Provider] - 1-2 days
[2019-03-22 17:02] LABS: Basophils % (A) 0 %; Eosinophils # (A) 0.2 k/uL (0-0.7); Eosinophils % (A) 1 %; HCT 38.3 % (34.0-46.0); HGB 12.5 gm/dL (11.4-16.0); Lymphocytes % (A) 7 %; MCH 29.7 pg (25.0-35.0); MCHC 32.5 g/dL (31.0-37.0); MCV 91.4 fL (80.0-100.0); Mean Platelet Volume 7.4; Monocytes # (A) 0.8 k/uL (0-1.0); Monocytes % (A) 6 %; Neutrophils % (A) 83 %; Platelet Count 330 k/uL (150-450); RBC 4.19 m/uL (3.80-5.40); RDW 14.9 % (11.5-15.5); WBC 13.3 k/uL (3.8-10.6)
[2019-03-22 17:13] LABS: ALT 14 U/L (9-52); AST 21 U/L (14-36); African American GFR (CKD) >90 (>60 ml/min/1.73 sqM); Albumin 4.1 g/dL (3.5-5.0); Alkaline Phosphatase 69 U/L (38-126); Anion Gap 12 mmol/L; Blood Urea Nitrogen 21 mg/dL (7-17); Calcium 9.3 mg/dL (8.4-10.2); Carbon Dioxide 23 mmol/L (22-30); Chloride 111 mmol/L (98-107); Creatine Kinase 29 U/L (30-135); Glucose 81 mg/dL (74-99); Magnesium 2.1 mg/dL (1.6-2.3); Potassium 4.6 mmol/L (3.5-5.1); Sodium 146 mmol/L (137-145); Total Bilirubin 0.3 mg/dL (0.2-1.3); Total Protein 7.2 g/dL (6.3-8.2)
--- NOTE | 2019-03-22 17:17 | XR ---
EXAMINATION TYPE: XR chest 2V DATE OF EXAM: 03/22/2019 COMPARISON: NONE HISTORY: 02/18/2019 TECHNIQUE: Frontal and lateral views of the chest are obtained. FINDINGS: Heart and mediastinum are normal. Lungs are clear of infiltrate. There is no pleural effus ion. There are chest leads. Bony thorax is intact. IMPRESSION: No active cardiopulmonary disease. Inspiration decreased slightly compared to old exam.
[2019-03-22 18:12] VITALS: BP 119/74; PULSE 77
== END 2019-03-22 18:25 | disposition home or self-care (01) ==
LOC: EC 15:55
DX: F41.9 Anxiety disorder, unspecified (principal); E86.0 Dehydration; G40.909 Epilepsy, unspecified, not intractable, without status epilepticus; K21.9 Gastro-esophageal reflux disease without esophagitis; F41.0 Panic disorder [episodic paroxysmal anxiety]; Z79.899 Other long term (current) drug therapy; Z88.0 Allergy status to penicillin; Z88.5 Allergy status to narcotic agent
CPT/HCPCS: 36415; 93005; 80053; 82550; 83735; 85025; 71046; 99285; 96374; 96375; 96361; J2060; J1885

== ENCOUNTER → 2019-03-23 | Outpatient (CLI) | payer BC ==
--- NOTE | 2019-03-23 08:16 | MR ---
EXAMINATION TYPE: MR brain wo/w con DATE OF EXAM: 03/23/2019 COMPARISON: CT brain 03/22/2019 HISTORY: elevated prolactin galatorrhea CONTRAST: Performed utilizing 10 mL intravenous Gadavist gadolinium contrast. TECHNIQUE: Multiplanar, multiecho imaging on a 3.0 Melva magnet is performed through the brain. Stud y is performed within 24 hours of arrival to the hospital. The craniovertebral junction is normal. The pituitary is normal. No enlargement of the pituitary is identified. Optic chiasm is visualized is normal. Pituitary stalk extends slightly to the right. No left pituitary lobe mass is evident. Exam is not maximize for pituitary evaluation. Microadenoma may be difficult to exclude. Recommend follow-up MRI pituitary with contrast. Diffusion-weighted imaging is performed. No abnormal hyperintensity is present to suggest an acute i ntracranial infarct or acute ischemic change. There are scattered punctate areas of hyperintensity on T2 and Inversion Recovery weighted sequences which are non-specific but can be related to microvascular ischemic changes. Ventricles and sulci are appropriate for the patient age. IMPRESSIONS: 1. Overall, MRI of the brain without and with contrast appears within normal limits. 2. Recommend follow-up MRI with contrast with pituitary to evaluate for microadenoma which may not be appreciated on this exam.
== END | disposition home or self-care (01) ==
LOC: RADMRIMAIN 06:38
PROVIDERS: ATTEND Obstetrics & Gynecology
DX: N64.3 Galactorrhea not associated with childbirth (principal)
CPT/HCPCS: 70553; A9585

== ENCOUNTER 2019-03-24 21:04 | Inpatient (IN) | payer BC ==
[2019-03-24] MEDS: LORazepam 2 MG/ML INJ IV STA ×2 (21:17→22:28)
[2019-03-24 21:22] LABS: Glucose,Whole Blood 82 mg/dL (75-99)
[2019-03-24] MEDS ORDERED: ETOMIDATE 2 MG/ML 10 ML VIAL IVP STA (21:30)
[2019-03-24] MEDS ORDERED: ROCURONIUM BROMIDE 10 MG/ML 10 ML VIAL IV STA (21:30)
[2019-03-24 21:36] LABS: Basophils % (A) 0 %; Eosinophils # (A) 0.3 k/uL (0-0.7); Eosinophils % (A) 4 %; HCT 36.4 % (34.0-46.0); Lymphocytes # (A) 2.2 k/uL (1.0-4.8); Lymphocytes % (A) 28 %; MCH 30.1 pg (25.0-35.0); MCHC 33.1 g/dL (31.0-37.0); Mean Platelet Volume 6.7; Monocytes # (A) 0.5 k/uL (0-1.0); Monocytes % (A) 6 %; Neutrophils # (A) 4.8 k/uL (1.3-7.7); Neutrophils % (A) 59 %; Platelet Count 291 k/uL (150-450); RDW 13.1 % (11.5-15.5); WBC 8.1 k/uL (3.8-10.6)
[2019-03-24 21:46] LABS: ALT 9 U/L (9-52); AST 21 U/L (14-36); Acetaminophen <10.0 ug/mL; African American GFR (CKD) >90 (>60 ml/min/1.73 sqM); Albumin 3.5 g/dL (3.5-5.0); Alcohol <10 mg/dL; Alkaline Phosphatase 67 U/L (38-126); Anion Gap 10 mmol/L; Appearance,Urine Clear (Clear); Bilirubin,Urine Negative (Negative); Blood Urea Nitrogen 20 mg/dL (7-17); Blood,Urine Negative (Negative); Calcium 8.6 mg/dL (8.4-10.2); Carbon Dioxide 21 mmol/L (22-30); Chloride 111 mmol/L (98-107); Color,Urine Yellow; Glucose 83 mg/dL (74-99); Glucose,Urine (UA) Negative (Negative); Ketones,Urine Negative (Negative); Leukocyte Esterase,Urine Negative (Negative); Nitrite,Urine Negative (Negative); PH, Urine 6.5 (5.0-8.0); Potassium 4.1 mmol/L (3.5-5.1); Protein,Urine Trace (Negative); Salicylate <1.0 mg/dL; Sodium 142 mmol/L (137-145); Specific Gravity,Urine 1.028 (1.001-1.035); Total Bilirubin 0.2 mg/dL (0.2-1.3); Total Protein 6.2 g/dL (6.3-8.2); Urobilinogen,Urine <2.0 mg/dL (<2.0)
[2019-03-24] MEDS ORDERED: RX INFO: IV CONTRAST WAS GIVEN 1 EACH MISC MISCELLANE PRN (21:50)
[2019-03-24] MEDS ORDERED: PROPOFOL 1,000 MG in EMPTY BAG 1 BAG IV ONE (21:50)
[2019-03-24 21:55] LABS: Amphetamine Screen,Urine Not Detected (NotDetected); Barbiturate Screen,Urine Not Detected (NotDetected); Benzodiazepines Screen,Urine Detected (NotDetected); Cocaine Screen,Urine Not Detected (NotDetected); Methadone Screen, Urine Not Detected (NotDetected); Opiate Screen,Urine Not Detected (NotDetected); Oxycodone Screen, Urine Not Detected (NotDetected); Phencyclidine Screen,Urine Not Detected (NotDetected); Tricyclic Antidepressant,Urine Detected (NotDetected); Urn Cannabinoid Scrn Not Detected (NotDetected)
--- NOTE | 2019-03-24 22:05 | XR ---
EXAMINATION: XR chest 1V portable DATE AND TIME: 03/24/2019 9:45 PM CLINICAL INDICATION: PHH; seizure TECHNIQUE: AP portable supine COMPARISON: 03/22/2019 at 5:20 PM FINDINGS: ET tube tip superimposed over the right mainstem bronchus and may be better placed if retra cted 4 cm. Repeat radiograph at that time can hopefully be taken in the upright position. If not, con health and safety director bilateral decubitus chest radiographs. EKG leads noted. There is a whiteout of the left hemithorax with prominent volume loss, as evidenced by the decreased rib interspaces and slight leftward shift of the mediastinum. These findings are consistent with inte rval development of a major atelectasis component of the left lung parenchyma. The right lung is well-expanded and clear. There is no pneumothorax. However, noted that supine radiography cannot exclude abnormal gas collecti ons. Cardiac silhouette cannot be seen. No acute skeletal findings or soft tissue findings. IMPRESSION: 1) ET TUBE TIP SUPERIMPOSED OVER THE RIGHT MAINSTEM BRONCHUS, DISCUSSED. 2) INTERVAL WHITE OUT OF THE LEFT LUNG PARENCHYMA. Results discussed with the ordering provider just now.
--- NOTE | 2019-03-24 22:24 | XR ---
EXAM: XR Chest, 1 View CLINICAL HISTORY: ITS.REASON XR Reason: tube placement TECHNIQUE: Frontal view of the chest. COMPARISON: 03/24/2019 FINDINGS: Endotracheal tube is identified, tip has been pulled back slightly and is likely at or near the level of the konrad/proximal right mainstem bronchus. Recommend pulling back approximately 2.5 cm and reimaging. Interval resolution of the left-sided pulmonary opacification. There may be a small left pleural effusion. No other interval changes. IMPRESSION: Endotracheal tube tip appears to be within proximity of the konrad/proximal right mainstem bronchus. Recommend pulling back 2.5 cm. There has been resolution of the previously seen left lung opacification. Slight left pleural effusion may be present. <MYCVCSECTION> Critical [employer] 03/24/19 22:49 Verify Receipt Verified receipt with Patricia in ER for Dr. Kinney
[2019-03-24] MEDS ORDERED: MIDAZOLAM 1 MG/ML 5 ML VIAL IV STA (22:52)
[2019-03-24] MEDS ORDERED: CISATRACURIUM 200 MG in SODIUM CHLORIDE 0.9% 180 ML IV SCH (23:15)
--- NOTE | 2019-03-24 23:29 | ED ---
General Adult HPI - General Chief complaint: Seizure Stated complaint: Poss Seizure Time Seen by Provider: 03/24/19 21:22 Source: EMS Mode of arrival: EMS Limitations: altered mental status - History of Present Illness Initial comments: The patient is a 28-year-old female who presents to the emergency department in status epilepticus. The patient does have a history of pseudoseizures and seizure disorder. The grandmother presents to bedside and provides majority of the history. He states that the patient began having seizures in August of this year. She has had several, the last of which she was seen yesterday in the emergency department for them. She recently had an MRI as there was concern for a pituitary adenoma. The patient does have an appointment coming up with a neurologist however they are unaware of the name of the physician. The patient currently takes Clonopin and Vimpat. She was recently taken off of Xanax and placed on Clonopin. Grandmother does believe that she is taking all of her medications as directed. She declot with friends today. She ended up coming home and was complaining of a headache. This was around 2:30. The patient then laid down and took a nap until 5. At 5:00 she awoke and stated that she didn't feel right. Grandmother had her sit down on the floor when she began having a seizure. EMS was called. They did provide the patient with 5 mg of Versed 15 minutes prior to arrival to the hospital. The patient continued to have seizure-like activity in all 4 of her extremities. She does arrive to tx and has no response to painful stimuli. The remainder of the HPI is limited because the patient's current condition - Related Data Home Medications Medication Instructions Recorded Confirmed Zolpidem Tartrate [Ambien Cr] 12.5 mg PO HS 01/13/18 03/24/19 Metoclopramide HCl [Reglan] 5 mg PO TID 07/30/18 03/24/19 ALPRAZolam [Xanax] 1 mg PO HS PRN 10/01/18 03/24/19 Lacosamide [Vimpat] 100 mg PO BID 02/12/19 03/24/19 Galcanezumab-Gnlm [Emgality 120 mg SQ Q28D 03/19/19 03/24/19 Syringe] clonazePAM 0.5 mg PO TID PRN 03/24/19 03/24/19 Previous Rx's Medication Instructions Recorded Ranitidine HCl [Zantac] 150 mg PO BID #60 tab 01/14/18 Allergies Allergy/AdvReac Type Severity Reaction Status Date / Time amoxicillin [Amoxicillin] AdvReac Mild Yeast Verified 03/24/19 21:12 Infection hydrocodone [From [place]] AdvReac Mild Nausea & Verified 03/24/19 21:12 Vomiting Review of Systems ROS Statement: Those systems with pertinent positive or pertinent negative responses have been documented in the HPI. ROS Other: All systems not noted in ROS Statement are negative. Past Medical History Past Medical History: GERD/Reflux, Seizure Disorder Additional Past Medical History / Comment(s): last pseudoseizure week & half ago she was then worked up at [facility] and discharged home., placed on atenolol recently for fast heart rate, intermittent vertigo History of Any Multi-Drug Resistant Organisms: None Reported Past Surgical History: Bariatric Surgery, Cholecystectomy, Hysterectomy, Orthopedic Surgery Additional Past Surgical History / Comment(s): LEFT FOOT SX, Right fallopian tube removed; SLEEVE GASTRECTOMY; EGD W DILATION, LAPAROSCOPIC EXAM. 02/12/2019 Robotic Hysterectomy Past Anesthesia/Blood Transfusion Reactions: Motion Sickness, Postoperative Nausea & Vomiting (PONV) Past Psychological History: Panic Disorder Smoking Status: Never smoker Past Alcohol Use History: None Reported Past Drug Use History: None Reported - Past Family History Sister(s) Family Medical History: Cancer, Deep Vein Thrombosis (DVT) Additional Family Medical History / Comment(s): Cervical cancer. Mother Family Medical History: Hyperlipidemia Additional Family Medical History / Comment(s): HEART PROBLEMS, IRREG RYTHM Father Family Medical History: Hyperlipidemia, Hypertension Additional Family Medical History / Comment(s): Paternal grandfather had kidney disorder and colon cancer. General Exam Limitations: altered mental status Course Vital Signs 03/24/19 03/24/19 03/24/19 21:06 21:13 21:16 Temperature 98 F Pulse Rate 105 H Respiratory 30 H Rate Blood Pressure 151/99 151/99 143/88 O2 Sat by Pulse 100 95 Oximetry 03/24/19 03/24/19 03/24/19 21:30 21:45 22:00 Temperature Pulse Rate 97 Respiratory 22 Rate Blood Pressure 152/108 146/95 133/87 O2 Sat by Pulse 96 99 Oximetry 03/24/19 03/24/19 03/24/19 22:24 22:30 23:00 Temperature Pulse Rate 89 Respiratory 22 22 Rate Blood Pressure 138/92 136/79 O2 Sat by Pulse 99 99 Oximetry 03/24/19 03/24/19 23:28 23:56 Temperature 97.6 F Pulse Rate 82 80 Respiratory 20 22 Rate Blood Pressure 133/28 126/73 O2 Sat by Pulse 100 100 Oximetry EKG Findings - EKG Comments: EKG Findings:: EKG demonstrates a normal sinus rhythm with ventricular rate of 92. ND interval 136. QRS 92. QTC 472. No acute ST segment elevations or depressions concerning for ischemic changes Medical Decision Making - Medical Decision Making Upon arrival the patient is placed in trauma bay 2. She is hooked up to continuous pulse ox and cardiac monitoring. I do attempt to obtain a thorough history and physical exam. The patient was provided with 1 mg of Ativan through her peripheral IV. The patient continues to have seizure-like activity. As it is reported the patient has been seizing for over an hour I did make the decision to intubate the patient. I did perform a neuro exam prior to intubation. The patient would not open her eyes to verbal or painful stimuli. She did not withdraw any of her extremities to pain. She did have a gag reflex. The patient was pretreated with 100% FiO2. She was provided with 20 mg of etomidate and 100 mg of rocuronium. I used the glide scope and visualized the ET tube passing to the cords. There is bilateral breath sounds auscultated however the right side greater breath sounds. We did shoot a portable chest x- ray which did demonstrate a right mainstem intubation. Because this we did retract the ET tube 2 cm. It was initially secured at 23 cm at the teeth. I did repeat a film which demonstrated retraction with improved aeration of the left lung however the tube appeared to be at the konrad. When discussed with the primary therapist, he did state that he originally told the tube back 1 cm. I did request further retraction of the tube with placement at 20 cm at the teeth. A second chest x-ray was performed which demonstrated placement still somewhat close to the konrad. As the patient is oxygenating appropriately and has good aeration of the lungs I will leave the tube in place. Laboratory studies were conducted. The patient was sent over for a CT of her head. I also performed a CT of the patient's chest as did report a history of a mass that he thought was in the chest. CT exam does not demonstrate such. I will admit the patient to Dr. Olivares. I did call and discuss case with him. He do es request of Dr. Talley be placed on consult. I did call discuss case with Dr. Cohn who accepted admission. I will consult Dr. Leyva. The patient was originally placed on propofol. She did begin having purposeful movements of her extremities. The patient is propofol was titrated up and we had difficulty sedating the patient. Because this we did place the patient on Bextra. She remained in stable condition was transported the ICU - Lab Data Result diagrams: 03/24/19 21:27 03/24/19 21:27 Lab Results 03/24/19 03/24/19 03/24/19 Range/Units 21:11 21:27 21:27 WBC 8.1 (3.8-10.6) k/uL RBC 4.00 (3.80-5.40) m/uL Hgb 12.0 (11.4-16.0) gm/dL Hct 36.4 (34.0-46.0) % MCV 91.0 (80.0-100.0) fL MCH 30.1 (25.0-35.0) pg MCHC 33.1 (31.0-37.0) g/dL RDW 13.1 (11.5-15.5) % Plt Count 291 (150-450) k/uL Neutrophils % 59 % Lymphocytes % 28 % Monocytes % 6 % Eosinophils % 4 % Basophils % 0 % Neutrophils # 4.8 (1.3-7.7) k/uL Lymphocytes # 2.2 (1.0-4.8) k/uL Monocytes # 0.5 (0-1.0) k/uL Eosinophils # 0.3 (0-0.7) k/uL Basophils # 0.0 (0-0.2) k/uL Sodium 142 (137-145) mmol/L Potassium 4.1 (3.5-5.1) mmol/L Chloride 111 H (98-107) mmol/L Carbon Dioxide 21 L (22-30) mmol/L Anion Gap 10 mmol/L BUN 20 H (7-17) mg/dL Creatinine 0.71 (0.52-1.04) mg/dL Est GFR (CKD-EPI)AfAm >90 (>60 ml/min/1.73 sqM) Est GFR (CKD-EPI)NonAf >90 (>60 ml/min/1.73 sqM) Glucose 83 (74-99) mg/dL POC Glucose (mg/dL) 82 (75-99) mg/dL POC Glu [employer] ID Bhavna Pennington Calcium 8.6 (8.4-10.2) mg/dL Total Bilirubin 0.2 (0.2-1.3) mg/dL AST 21 (14-36) U/L ALT 9 (9-52) U/L Alkaline Phosphatase 67 (38-126) U/L Total Protein 6.2 L (6.3-8.2) g/dL Albumin 3.5 (3.5-5.0) g/dL Urine Color Urine Appearance (Clear) Urine pH (5.0-8.0) Ur Specific [place] (1.001-1.035) Urine Protein (Negative) Urine Glucose (UA) (Negative) Urine Ketones (Negative) Urine Blood (Negative) Urine Nitrite (Negative) Urine Bilirubin (Negative) Urine Urobilinogen (<2.0) mg/dL Ur Leukocyte Esterase (Negative) Urine HCG, Qual (Not Detectd) Salicylates <1.0 mg/dL Urine Opiates Screen (NotDetected) Ur Oxycodone Screen (NotDetected) Urine Methadone Screen (NotDetected) Ur Propoxyphene Screen (NotDetected) Acetaminophen <10.0 ug/mL Ur Barbiturates Screen (NotDetected) U Tricyclic Antidepress (NotDetected) Ur Phencyclidine Scrn (NotDetected) Ur Amphetamines Screen (NotDetected) U Methamphetamines Scrn (NotDetected) U Benzodiazepines Scrn (NotDetected) Urine Cocaine Screen (NotDetected) U Marijuana (THC) Screen (NotDetected) Serum Alcohol <10 mg/dL 03/24/19 03/24/19 Range/Units 21:27 21:27 WBC (3.8-10.6) k/uL RBC (3.80-5.40) m/uL Hgb (11.4-16.0) gm/dL Hct (34.0-46.0) % MCV (80.0-100.0) fL MCH (25.0-35.0) pg MCHC (31.0-37.0) g/dL RDW (11.5-15.5) % Plt Count (150-450) k/uL Neutrophils % % Lymphocytes % % Monocytes % % Eosinophils % % Basophils % % Neutrophils # (1.3-7.7) k/uL Lymphocytes # (1.0-4.8) k/uL Monocytes # (0-1.0) k/uL Eosinophils # (0-0.7) k/uL Basophils # (0-0.2) k/uL Sodium (137-145) mmol/L Potassium (3.5-5.1) mmol/L Chloride (98-107) mmol/L Carbon Dioxide (22-30) mmol/L Anion Gap mmol/L BUN (7-17) mg/dL Creatinine (0.52-1.04) mg/dL Est GFR (CKD-EPI)AfAm (>60 ml/min/1.73 sqM) Est GFR (CKD-EPI)NonAf (>60 ml/min/1.73 sqM) Glucose (74-99) mg/dL POC Glucose (mg/dL) (75-99) mg/dL POC Glu [employer] ID Calcium (8.4-10.2) mg/dL Total Bilirubin (0.2-1.3) mg/dL AST (14-36) U/L ALT (9-52) U/L Alkaline Phosphatase (38-126) U/L Total Protein (6.3-8.2) g/dL Albumin (3.5-5.0) g/dL Urine Color Yellow Urine Appearance Clear (Clear) Urine pH 6.5 (5.0-8.0) Ur Specific [place] 1.028 (1.001-1.035) Urine Protein Trace H (Negative) Urine Glucose (UA) Negative (Negative) Urine Ketones Negative (Negative) Urine Blood Negative (Negative) Urine Nitrite Negative (Negative) Urine Bilirubin Negative (Negative) Urine Urobilinogen <2.0 (<2.0) mg/dL Ur Leukocyte Esterase Negative (Negative) Urine HCG, Qual Not Detected (Not Detectd) Salicylates mg/dL Urine Opiates Screen Not Detected (NotDetected) Ur Oxycodone Screen Not Detected (NotDetected) Urine Methadone Screen Not Detected (NotDetected) Ur Propoxyphene Screen Not Detected (NotDetected) Acetaminophen ug/mL Ur Barbiturates Screen Not Detected (NotDetected) U Tricyclic Antidepress Detected H (NotDetected) Ur Phencyclidine Scrn Not Detected (NotDetected) Ur Amphetamines Screen Not Detected (NotDetected) U Methamphetamines Scrn Not Detected (NotDetected) U Benzodiazepines Scrn Detected H (NotDetected) Urine Cocaine Screen Not Detected (NotDetected) U Marijuana (THC) Screen Not Detected (NotDetected) Serum Alcohol mg/dL Disposition Clinical Impression: Seizure disorder, Dependent on ventilator Disposition: ADMITTED IP TO THIS [facility] Condition: Serious Is patient prescribed a controlled substance at d/c from ED?: No Decision to Admit Reason: Admit from EC Decision Date: 03/25/19 Decision Time: 00:11
[2019-03-25] MEDS ORDERED: NALOXONE 0.4 MG/ML 1 ML VIAL IV PRN (00:12)
[2019-03-25] MEDS ORDERED: LACOSAMIDE 50 MG TABLET PO SCH (00:15)
--- NOTE | 2019-03-25 01:02 | CT ---
EXAM: CT Head Without Intravenous Contrast CLINICAL HISTORY: ITS.REASON CT Reason: seizure activity TECHNIQUE: Axial computed tomography images of the head/brain without intravenous contrast. CTDI is 49.2 mGy and DLP is 1090.4 mGy-cm. This CT exam was performed using one or more of the following dose reduction techniques: automated exposure control, adjustment of the mA and/or kV according to patient size, and/or use of iterative reconstruction technique. COMPARISON: 03/22/2019 FINDINGS: Brain: No evidence for cortical infarct or significant interval change from the previous examination is noted. No hemorrhage. No significant white matter disease. Ventricles: Unremarkable. No ventriculomegaly. Bones/joints: Unremarkable. No acute fracture. Soft tissues: Unremarkable. Sinuses: No significant paranasal sinus mucosal disease identified. Mastoid air cells: Unremarkable as visualized. No mastoid effusion. Tubes, lines and devices: A nasogastric tube is identified in position. IMPRESSION: No acute intracranial process identified.
[2019-03-25 01:04] LABS: Glucose,Whole Blood 85 mg/dL (75-99)
--- NOTE | 2019-03-25 01:06 | CT ---
EXAM: CT Chest With Intravenous Contrast CLINICAL HISTORY: ITS.REASON CT Reason: left lung opacity TECHNIQUE: Axial computed tomography images of the chest with intravenous contrast. CTDI is 16.7 mGy and DLP is 717.3 mGy-cm. This CT exam was performed using one or more of the following dose reduction techniques: automated exposure control, adjustment of the mA and/or kV according to patient size, and/or use of iterative reconstruction technique. COMPARISON: No relevant prior studies available. FINDINGS: Lungs: There are diminished lung volumes noted. There are dependent subsegmental opacities identified posteriorly. There are a few air bronchograms noted at the left lung base. Pleural space: Unremarkable. No pneumothorax. No significant effusion. Heart: Unremarkable. No cardiomegaly. No significant pericardial effusion. Bones/joints: Unremarkable. No acute fracture. No dislocation. Soft tissues: Unremarkable. Vasculature: Unremarkable. No thoracic aortic aneurysm. Lymph nodes: Unremarkable. No enlarged lymph nodes. Tubes, lines and devices: The endotracheal tube is identified immediately above the konrad, with the tip approximately 6 mm from the inferior konrad. A nasogastric tube traverses the mediastinum and extends into the stomach. IMPRESSION: 1. The endotracheal tube is identified immediately above the konrad, with the tip approximately 6 mm from the inferior konrad. Recommend retraction approximately 2 cm, as clinically appropriate. 2. A nasogastric tube traverses the mediastinum and extends into the stomach. 3. There are diminished lung volumes noted. There are dependent subsegmental opacities identified posteriorly. There are a few air bronchograms noted at the left lung base. Primary consideration is subsegmental atelectasis. Subtle infection, particularly at the left lung base is difficult to entirely exclude. Please correlate clinically. No pleural effusion or pneumothorax. <MYCVCSECTION> [employer] 03/25/19 01:17 Verify Receipt with Nurse Verified receipt with Dr. Myers on 03/25 01:17 (-04:00)
[2019-03-25 01:22] LABS: ABG Base Excess 0.2 mmol/L; ABG HCO3 25 mmol/L (21-25); ABG Oxygen Saturation 99.7 % (94-97); ABG PCO2 37 mmHg (35-45); ABG PH 7.43 (7.35-7.45); ABG PO2 >400 mmHg (83-108); ABG TCO2 26 mmol/L (19-24); Allen Test Performed? Yes
[2019-03-25] MEDS: PROPOFOL 1,000 MG in EMPTY BAG 1 BAG IV SCH ×4 (01:31→10:16)
[2019-03-25 02:11] VITALS: BMI 39.4
[2019-03-25 05:08] LABS: Basophils % (A) 0 %; Eosinophils # (A) 0.1 k/uL (0-0.7); Eosinophils % (A) 1 %; HCT 37.1 % (34.0-46.0); HGB 11.9 gm/dL (11.4-16.0); Hypochromasia Slight; Lymphocytes # (A) 1.4 k/uL (1.0-4.8); Lymphocytes % (A) 15 %; MCH 30.4 pg (25.0-35.0); MCHC 32.2 g/dL (31.0-37.0); MCV 94.5 fL (80.0-100.0); Mean Platelet Volume 6.7; Monocytes # (A) 0.5 k/uL (0-1.0); Monocytes % (A) 5 %; Neutrophils # (A) 7.1 k/uL (1.3-7.7); Neutrophils % (A) 78 %; Platelet Count 250 k/uL (150-450); RBC 3.92 m/uL (3.80-5.40); RDW 12.9 % (11.5-15.5); WBC 9.1 k/uL (3.8-10.6)
[2019-03-25 05:25] LABS: African American GFR (CKD) >90 (>60 ml/min/1.73 sqM); Anion Gap 5 mmol/L; Blood Urea Nitrogen 14 mg/dL (7-17); Calcium 8.5 mg/dL (8.4-10.2); Carbon Dioxide 22 mmol/L (22-30); Chloride 112 mmol/L (98-107); Glucose 100 mg/dL (74-99); Phosphorus 3.6 mg/dL (2.5-4.5); Potassium 3.9 mmol/L (3.5-5.1); Sodium 139 mmol/L (137-145)
[2019-03-25 06:03] LABS: Glucose,Whole Blood 90 mg/dL (75-99)
[2019-03-25] MEDS: INSULIN ASPART (NovoLOG) 100 UNIT/ML VIAL SQ SCH ×3 (06:27→18:12)
[2019-03-25] MEDS: SODIUM CHLORIDE 0.9% 1,000 ML IV SCH (07:45)
--- NOTE | 2019-03-25 08:16 | XR ---
EXAMINATION TYPE: XR chest 1V DATE OF EXAM: 03/25/2019 COMPARISON: 03/24/2019 HISTORY: 28 year-old female tube placement TECHNIQUE: Single frontal view of the chest is obtained. FINDINGS: ET tube is satisfactory. Heart normal size. NG tube courses below the diaphragm. No consol idation, pneumothorax, or pleural effusion. IMPRESSION: Satisfactory ET tube. Improved aeration from prior. No acute process appreciated radiographically.
[2019-03-25] MEDS: LACTATED RINGERS 1,000 ML IV SCH (08:42)
[2019-03-25] MEDS ORDERED: CHLORHEXIDINE GLUCONATE 15 ML CUP MUCOUS MEM SCH (09:00)
[2019-03-25] MEDS ORDERED: FAMOTIDINE 20 MG TAB PO SCH (09:00)
[2019-03-25] MEDS: ONDANSETRON 4 MG/2 ML VIAL IVP PRN (10:47)
[2019-03-25] MEDS: PANTOPRAZOLE 40 MG/10 ML VIAL IV SCH (10:48)
[2019-03-25] MEDS: HEPARIN SODIUM,PORCINE 5,000 UNIT/ML 1 ML VIAL SQ SCH ×2 (10:53→22:22)
[2019-03-25 12:06] LABS: Glucose,Whole Blood 93 mg/dL (75-99)
[2019-03-25] MEDS: LACOSAMIDE IV 100 MG in SODIUM CHLORIDE 0.9% 50 ML IVPB SCH ×2 (12:11→22:23)
--- NOTE | 2019-03-25 13:17 | P.CNPUL ---
History of Present Illness Consult date: 03/25/19 Reason for consult: dyspnea, cough, other Chief complaint: Seizures History of present illness: The patient is a 28-year-old female who presents to the emergency department in status epilepticus. The patient does have a history of pseudoseizures and seizure disorder. The grandmother presents to bedside in ICU and provides majority of the history. She states that the patient began having seizures in August of this year. She has had several, the last of which she was seen yesterday in the emergency department for them. She recently had an MRI as there was concern for a pituitary adenoma. As per discussion with Dr. Pichardo CFA ProTect him prolactin level was 106 likely suggestive of prolactinoma The patient does have an appointment coming up with a neurologist however they are unaware of the name of the physician. Grandmother does believe that she is taking all of her medications as directed. She was complaining of a headache around 2:30 yesterday followed by a short nap until 5 at 5 she woke up and had a seizure-like activity, she was intubated in the ER, patient has been on propofol which has been discontinued she opens eyes follow simple commands the vent settings include assist control rate of 16 and volume 450 and 30% oxygen sats are 99% she is breathing adequately with good volumes initially patient was attempted on CPAP and pressure support but she was extremely restless was seen was done to extubate patient directly and not to do weaning trial which was accomplished successfully and patient was placed on 2 L nasal oxygen Review of Systems All systems: negative Past Medical History Past Medical History: GERD/Reflux, Seizure Disorder Additional Past Medical History / Comment(s): last pseudoseizure week & half ago she was then worked up at [facility] and discharged home., placed on atenolol recently for fast heart rate, intermittent vertigo History of Any Multi-Drug Resistant Organisms: None Reported Past Surgical History: Bariatric Surgery, Cholecystectomy, Hysterectomy, Orthopedic Surgery Additional Past Surgical History / Comment(s): LEFT FOOT SX, Right fallopian tube removed; SLEEVE GASTRECTOMY; EGD W DILATION, LAPAROSCOPIC EXAM. 02/12/2019 Robotic Hysterectomy Past Anesthesia/Blood Transfusion Reactions: Motion Sickness, Postoperative Nausea & Vomiting (PONV) Past Psychological History: Panic Disorder Smoking Status: Never smoker Past Alcohol Use History: None Reported Past Drug Use History: None Reported - Past Family History Sister(s) Family Medical History: Cancer, Deep Vein Thrombosis (DVT) Additional Family Medical History / Comment(s): Cervical cancer. Mother Family Medical History: Hyperlipidemia Additional Family Medical History / Comment(s): HEART PROBLEMS, IRREG RYTHM Father Family Medical History: Hyperlipidemia, Hypertension Additional Family Medical History / Comment(s): Paternal grandfather had kidney disorder and colon cancer. Medications and Allergies Home Medications Medication Instructions Recorded Confirmed Type Zolpidem Tartrate [Ambien Cr] 12.5 mg PO HS 01/13/18 03/24/19 History Ranitidine HCl [Zantac] 150 mg PO BID #60 tab 01/14/18 03/24/19 Rx Metoclopramide HCl [Reglan] 5 mg PO TID 07/30/18 03/24/19 History ALPRAZolam [Xanax] 1 mg PO HS PRN 10/01/18 03/24/19 History Lacosamide [Vimpat] 100 mg PO BID 02/12/19 03/24/19 History Galcanezumab-Gnlm [Emgality 120 mg SQ Q28D 03/19/19 03/24/19 History Syringe] clonazePAM 0.5 mg PO TID PRN 03/24/19 03/24/19 History Allergies Allergy/AdvReac Type Severity Reaction Status Date / Time amoxicillin [Amoxicillin] AdvReac Mild Yeast Verified 03/24/19 21:12 Infection hydrocodone [From [place]] AdvReac Mild Nausea & Verified 03/24/19 21:12 Vomiting Physical Exam Vitals: Vital Signs Temp Pulse Resp BP Pulse Ox 03/25/19 12:35 100 03/25/19 12:00 78 15 124/70 100 03/25/19 11:00 78 14 136/80 100 03/25/19 10:00 89 14 132/114 100 03/25/19 09:30 92 14 129/83 100 03/25/19 09:00 80 14 146/94 100 03/25/19 08:40 16 100 03/25/19 08:30 102 H 16 133/87 100 03/25/19 08:00 98 F 86 19 130/82 100 03/25/19 07:30 69 14 123/78 100 03/25/19 07:00 70 14 131/79 100 03/25/19 06:30 73 14 125/77 100 03/25/19 06:00 72 14 129/87 100 03/25/19 05:30 75 14 100 03/25/19 05:00 70 14 109/78 100 03/25/19 04:30 72 14 116/75 100 03/25/19 04:00 97.7 F 74 14 123/79 100 03/25/19 03:30 69 14 03/25/19 03:00 69 14 126/78 03/25/19 02:30 70 14 03/25/19 02:00 73 19 123/92 100 03/25/19 01:30 74 14 03/25/19 01:20 70 14 03/25/19 01:10 97.6 F 74 14 109/77 03/25/19 00:45 76 116/74 03/25/19 00:30 81 124/72 100 03/25/19 00:15 79 136/79 99 03/25/19 00:05 84 140/82 100 03/24/19 23:56 97.6 F 80 22 126/73 100 03/24/19 23:28 82 20 133/28 100 03/24/19 23:00 22 03/24/19 22:30 136/79 99 03/24/19 22:24 89 22 138/92 99 03/24/19 22:00 97 22 133/87 99 03/24/19 21:45 146/95 03/24/19 21:30 152/108 96 03/24/19 21:16 143/88 95 03/24/19 21:13 98 F 105 H 30 H 151/99 100 03/24/19 21:06 151/99 Intake and Output 03/24/19 03/25/19 03/25/19 22:59 06:59 14:59 Intake Total 9.735 461.376 337.026 Output Total 100 1435 565 Balance -90.265 -973.624 -227.974 Intake: IV 240 200 0.9 NS 240 200 Intake, IV Titration 9.735 221.376 137.026 Amount Cisatracurium 200 mg In 54.981 Sodium Chloride 0.9% 180 ml @ 1 MCG/KG/MIN 6.053 mls/hr IV .Q24H [facility] Rx#: [id number] Propofol 1,000 mg In 9.735 41.007 Empty Bag 1 bag @ Titrate IV .Q0M ONE Rx#: [id number] Propofol 1,000 mg In 180.369 82.045 Empty Bag 1 bag @ Titrate IV .Q0M [facility] Rx#: [id number] Output: Urine 100 1435 565 Uretheral (Brunson) 100 Other: Voiding Method Indwelling Catheter Indwelling Catheter Weight 100.879 kg - Constitutional General appearance: average body habitus, cooperative, disheveled - EENT Eyes: anicteric sclerae, EOMI, PERRLA, poor dentition ENT: normal oropharynx - Neck Neck: normal ROM Carotids: bilateral: upstroke normal, bruit absent Thyroid: bilateral: normal size - Respiratory Respiratory: bilateral: CTA - Cardiovascular Rhythm: regular Heart sounds: normal: S1, S2 - Gastrointestinal General gastrointestinal: distended, soft - Integumentary Integumentary: normal, normal turgor - Neurologic Neurologic: CNII-XII intact - Musculoskeletal Musculoskeletal: generalized weakness, strength equal bilaterally - Psychiatric Psychiatric: A&O x's 3, appropriate affect, intact judgment & insight Results - Laboratory Findings CBC and BMP: 03/25/19 04:38 03/25/19 04:38 ABG ABG pH 7.43 (7.35-7.45) 03/25/19 01:20 ABG pCO2 37 mmHg (35-45) 03/25/19 01:20 ABG pO2 >400 mmHg (83-108) H 03/25/19 01:20 ABG O2 Saturation 99.7 % (94-97) H 03/25/19 01:20 Abnormal lab findings: Abnormal Labs 03/24/19 03/24/19 03/25/19 21:27 21:27 01:20 ABG pO2 >400 H ABG Total CO2 26 H ABG O2 Saturation 99.7 H Chloride 111 H Carbon Dioxide 21 L BUN 20 H Creatinine Glucose Total Protein 6.2 L Urine Protein Trace H U Tricyclic Antidepress Detected H U Benzodiazepines Scrn Detected H 03/25/19 04:38 ABG pO2 ABG Total CO2 ABG O2 Saturation Chloride 112 H Carbon Dioxide BUN Creatinine 0.51 L Glucose 100 H Total Protein Urine Protein U Tricyclic Antidepress U Benzodiazepines Scrn - Diagnostic Findings Chest x-ray: report reviewed, image reviewed (Normal chest x-ray) Assessment and Plan Assessment: Acute seizures Respiratory failure due to seizures Headaches Recent MRI and labs suggestive of prolactinoma Major depression Morbid obesity Sleep disorder breathing and sleep apnea Plan: Patient being extubated successfully Patient is being evaluated by neurology and psychiatry Her plan discussed with Dr. Pichardo CFA Repeat labs tomorrow Gentle IV rehydration Start by mouth His seizure precautions The recommendations pending plan of care as per clinical response of patient A shunt will be monitored in ICU tonight Critical care time spent 60 minutes Time with Patient: Greater than 30
[2019-03-25] MEDS: ACETAMINOPHEN TAB 325 MG TAB PO PRN (13:25)
--- NOTE | 2019-03-25 14:01 | EEG ---
ELECTROENCEPHALOGRAM REPORT PROCEDURE DATE: 03/25/2019. ELECTROENCEPHALOGRAM (EEG) REPORT: TECHNIQUE: A routine 18 channel EEG was performed with video using the 10/20 international placement system. HISTORY: Seizures. Patient had a seizure witnessed by her mother. EMS was called, 5 mg of Versed given. Patient continued to have seizure-like activity in 4 extremities. Patient intubated, admitted to the ICU. Please note that sedation was turned off just prior to the hookup. CURRENT MEDICATIONS: Propofol, Protonix, lacosamide, insulin, Pepcid. STUDY DURATION: 20 minutes. FINDINGS: Please note that portions of the recording were limited and interpretation by the presence of muscle artifact. BACKGROUND: The background activity consisted of unsustained 6-7 hertz rhythmic waveforms symmetric through both posterior quadrants. ACTIVATION: HYPERVENTILATION: Not performed. PHOTIC STIMULATION: Mild symmetric driving seen. SLEEP: Drowsy. ABNORMALITIES: 1. Occasional to frequent frontal intermittent rhythmic delta activity (FIRDA) was seen. 2. Intermixed with the above mentioned #1 were occasional triphasic waves, frontally predominant. 3. Intermittent diffuse 4-6 hertz polymorphic theta range slowing was seen with superimposed faster, beta frequencies. IMPRESSION: Limited study, abnormal EEG. The triphasic waves mentioned above are not epileptiform in nature. Triphasic waves can be seen in the setting of a metabolic encephalopathy. The frontally predominant delta range slowing mentioned above as well as the diffuse theta range slowing mentioned above is not epileptiform in nature. In combination with the slow background, these findings indicate moderate diffuse cerebral dysfunction as may be seen in a toxometabolic encephalopathy. No seizures were recorded. No epileptiform activity was present. These findings were called to the neurologist taking care of the patient at 1:15 pm on 03/25/2019. MMODL / IJN: [id number] /
[2019-03-25] MEDS: LORazepam 2 MG/ML INJ IV PRN ×5 (14:18→22:22)
--- NOTE | 2019-03-25 15:11 | P.CN ---
Psychiatric Consult - . 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 HISTORY OF PRESENT ILLNESS: The patient was was brought into the hospital in status epilepticus. Patient has been having ongoing seizures since August of this year and has been seen in multiple different hospitals including [facility]. Psychiatry was consult that for possibility of psychogenic seizures?. Patient was seen at the bedside today and was somnolent however was following some directions/commands and was able to squeeze writers hands appropriately and give thumbs-up when asked which was weak. and patient's mother were at the bedside and were agreeable to speak to typewriter operator automatic and give further history. They state that patient has been having more seizures since August of this year which all proceed in the same manner which is described as patient feeling like her head hurts lies down on the ground and then bites her tongue convulses with her arms and sometimes loses continence with urine and then has postictal symptoms including confusion. describes patient being at her baseline yesterday afternoon when she began to complaining of her head hurting and proceeded to sit down and twitched her arms along with biting her tongue. She did lose consciousness however did not lose continence yesterday. They state that patient has been having seizures approximately 2-3 times a week now which has been progressing they are unsure of the etiology. They state that they did multiple workups at [facility] however do not know any information and alluded to possible pseudoseizures. When asked about patient's daily life they state that and agree that patient does not have much stress and was cheerful no dep ression and was out with her friends. 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 They claim that patient does have some anxiety however has been treated with Klonopin and Xanax in the past by her outpatient primary care doc. They also deny patient using any illicit substances at this time. PAST PSYCHIATRIC HISTORY: Family denies any previous psych admits claims that patient does have a history of "some anxiety that's mild". They deny her following up with any psychiatrist and claims she used to be on Xanax at night which was switched to Klonopin which needed to be titrated off. They deny patient having any previous suicide attempts. PAST MEDICAL HISTORY: GERD and seizure disorder. ALLERGIES: Amoxicillin and hydrocortisone. CHEMICAL DEPENDENCY HISTORY: UDS was positive for benzodiazepines and TCAs how ever family denies patient using any illicit substances including alcohol marijuana. 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 She was recently demoted at work due to medical problems and hospitalizations. MENTAL STATUS EXAM: General Appearance: Patient appears to be stated age is somnolent, however is somewhat directable and follows commands. Fair hygiene and grooming. Behavior: Patient is calmly lying in bed without any agitated behavior. Speech: Patient's speech is fluent and nonpressured. Mood/Affect: Unable to assess. Suicidality/Homicidality: Unable to assess. Perceptions: Unable to assess. Though content/process: Patient is not able to speak at this time and is somnolent however follow some commands. Memory and concentration: Unable to assess at this time Judgment and insight: Unable to assess at this time. IMPRESSIONS: Anxiety disorder unspecified rule out pseudoseizures vs seizures secondary to toxic metabolic encephalopathy. PLAN: -At this time patient does NOT meet criteria for inpatient psychiatric admission. -At this time it appears unlikely that the patient is having pseudoseizures as most of the symptoms leading up to the seizure and afterwards tend to align with having an actual seizure (including tongue biting incontinence postictal confusion etc). If pseudoseizures were to be a possibility then patient would have to have every test and workup be negative and at this time patient does have the pituitary adenoma on MRI which continues to be worked up/evaluated. Also it does not seem the patient is having any secondary gain at this time from the history and does not appear to be benefiting from the seizures. -Reviewed the EEG done on this visit and as per report it appears that there are no epileptiform discharges however patient does appear to have indicators that suggest toxic metabolic factors at play. -Will request the primary team or social work program coordinator to send for reports from [facility] or other hospital which patient was evaluated at for further information to be reviewed. -Would recommend the following medication changes/additions: No changes to the medications. -Psychiatry will sign off at this point please contact with any further questions.
[2019-03-25 17:32] LABS: Glucose,Whole Blood 103 mg/dL (75-99)
[2019-03-25] MEDS ORDERED: LORazepam 2 MG/ML INJ IV PRN (18:29)
--- NOTE | 2019-03-25 22:40 | HP ---
HISTORY AND PHYSICAL CHIEF COMPLAINT: [id number] white female came in with status epilepticus. She was intubated and placed in ICU. She has a history of pseudoseizures, seizure disorder. She has been re- extubated today in the ICU. She was having tremors and extreme motions of her arms. Lying in bed here today she is not speaking. She has jerking motions bilaterally in her arms. She had a recent MRI that was negative for pituitary adenoma ordered by TARIFF CLERK due to high prolactin level. Grandma states she has been taking all her medicines, including Vimpat at home for seizures. She [place] twice in the past 6 months, both times diagnosed with pseudoseizures. Once while she was intubated they extubated her down there and took her off seizure medicines. She is opening her eyes, moving around, sitting in bed, moving her arms right and left, grabbing at her over and over again, extremely restless. Ativan has been ordered for anxiety. PAST MEDICAL HISTORY: 1. Severe seizure disorder. 2. Pseudoseizures. 3. Severe anxiety. 4. GERD. 5. Hypertension. 6. Tachycardia. PAST SURGICAL HISTORY: 1. Bariatric surgery. 2. Cholecystectomy. 3. Hysterectomy, robotic. 4. Orthopedic surgery. 5. She had a fallopian tube removed. 6. Sleeve gastrectomy. FAMILY HISTORY: Sister with cancer, DVT. Mother with dyslipidemia, heart problems. Father with dyslipidemia, hypertension. ALLERGIES: 1. AMOXICILLIN. 2. NORCO. PHYSICAL EXAMINATION: Blood pressure 130s to 140s over 70s to 90s, oxygen 100%, pulse 70s to 90s, temperature 98. CARDIOVASCULAR: S1, S2. LUNGS: Rales at the base. Lungs are clear. HEMATOLOGY: Negative Homans. PSYCH: Fair mood and affect. NEUROLOGIC: Alert and oriented x3. She has jerking movements with her arms, picking at her 's arms over and over and over again, not talking, sitting up in bed on her own strength. OPHTHALMOLOGIC: Pupils equal, round, reactive to light and accommodation. EXTREMITIES: Negative edema. LABS: Reviewed. ABGs reviewed. ASSESSMENT: 1. Acute seizures. 2. Respiratory failure secondary to seizures. 3. Pseudoseizures. 4. Psychiatric anxiety of severe nature. 5. Possible elevated prolactin levels. 6. Major depression. 7. Anxiety. 8. Obesity. 9. Sleeping disorder. 10.Sleep apnea. Rehydration, seizure precautions. Wait for spray i painter notes and neurology and psychiatry notes. ICU time 60 minutes. SLOANE / NERISSAN: [id number] /
[2019-03-26] MEDS: LORazepam 2 MG/ML INJ IV PRN ×5 (00:17→21:59)
[2019-03-26] MEDS ORDERED: FLUMAZENIL 0.1 MG/ML 5 ML VIAL IVP STA (01:13)
[2019-03-26] MEDS: clonazePAM 0.5 MG TAB PO PRN ×2 (01:54→20:43)
[2019-03-26 04:19] LABS: ALT 23 U/L (9-52); AST 26 U/L (14-36); African American GFR (CKD) >90 (>60 ml/min/1.73 sqM); Albumin 3.5 g/dL (3.5-5.0); Alkaline Phosphatase 77 U/L (38-126); Anion Gap 8 mmol/L; Blood Urea Nitrogen 13 mg/dL (7-17); Calcium 8.5 mg/dL (8.4-10.2); Carbon Dioxide 25 mmol/L (22-30); Chloride 110 mmol/L (98-107); Creatine Kinase 29 U/L (30-135); Glucose 96 mg/dL (74-99); Potassium 3.7 mmol/L (3.5-5.1); Sodium 143 mmol/L (137-145); Total Bilirubin 0.2 mg/dL (0.2-1.3)
[2019-03-26 06:19] LABS: Basophils % (A) 1 %; Eosinophils # (A) 0.3 k/uL (0-0.7); Eosinophils % (A) 4 %; HCT 32.6 % (34.0-46.0); HGB 10.5 gm/dL (11.4-16.0); Lymphocytes % (A) 28 %; MCH 29.5 pg (25.0-35.0); MCHC 32.1 g/dL (31.0-37.0); Mean Platelet Volume 6.6; Monocytes # (A) 0.4 k/uL (0-1.0); Monocytes % (A) 5 %; Neutrophils # (A) 4.3 k/uL (1.3-7.7); Neutrophils % (A) 61 %; Platelet Count 229 k/uL (150-450); RBC 3.54 m/uL (3.80-5.40); RDW 13.1 % (11.5-15.5); WBC 7.1 k/uL (3.8-10.6)
[2019-03-26 06:29] LABS: African American GFR (CKD) >90 (>60 ml/min/1.73 sqM); Anion Gap 4 mmol/L; Blood Urea Nitrogen 12 mg/dL (7-17); Calcium 8.2 mg/dL (8.4-10.2); Carbon Dioxide 28 mmol/L (22-30); Chloride 110 mmol/L (98-107); Glucose 89 mg/dL (74-99); Potassium 3.7 mmol/L (3.5-5.1); Sodium 142 mmol/L (137-145)
[2019-03-26 06:57] LABS: Glucose,Whole Blood 177 mg/dL (75-99)
[2019-03-26] MEDS: SODIUM CHLORIDE 0.9% 1,000 ML IV SCH (07:45)
[2019-03-26] MEDS: INSULIN ASPART (NovoLOG) 100 UNIT/ML VIAL SQ SCH ×4 (07:49→20:37)
--- NOTE | 2019-03-26 08:54 | XR ---
EXAMINATION TYPE: XR chest 1V DATE OF EXAM: 03/26/2019 COMPARISON: 03/25/2019 HISTORY: mechanical ventilation TECHNIQUE: Single frontal view of the chest is obtained. FINDINGS: Endotracheal tube and NG tube have been removed. No pneumothorax seen. There is no focal air space opacity, pleural effusion, or pneumothorax seen. The cardiac silhouette size is within normal limits. The osseous structures are intact. IMPRESSION: 1. No acute process.
[2019-03-26] MEDS: HEPARIN SODIUM,PORCINE 5,000 UNIT/ML 1 ML VIAL SQ SCH ×2 (09:22→20:30)
[2019-03-26] MEDS: PANTOPRAZOLE 40 MG/10 ML VIAL IV SCH (09:22)
[2019-03-26] MEDS: LACOSAMIDE IV 100 MG in SODIUM CHLORIDE 0.9% 50 ML IVPB SCH (09:46)
[2019-03-26 11:59] LABS: Glucose,Whole Blood 95 mg/dL (75-99)
--- NOTE | 2019-03-26 14:39 | CDI ---
Documentation Clarification Form Date: 03/26/2019 2:26:08 PM From: Aida Jarrell CCS, CCDS Admit Date: 03/25/2019 12:12:00 AM Patient Name: Caroline Newton Visit Number: [id number] Discharge Date: ATTENTION: The Clinical Documentation Specialists (CDI) and [facility] Coding Staff appreciate your assistance in clarifying documentation. Please respond to the clarification below the line at the bottom and electronically sign. The CDI & [facility] Coding staff will review the response and follow-up if needed. Please note: Queries are made part of the Legal Health Record. If you have any questions, please contact the author of this message via ITS. Dr. Jr Talley: Per the 03/25 History & Physical and also the Pulmonary/Critical Care Consult: "Respiratory failure due to seizures." History/Risk Factors: Possible pseudoseizures, Morbid Obesity, BMI 40.0, Sleep apnea, GERD, Hypertension, Major Depression, Panic Disorder, Bariatric Surgery. Tobacco use: non smoker. Home oxygen: none Clinical Indicators: Patient presented to the ED with possible status epilepticus with history of possible pseudoseizures. Intubated in ED & admitted to ICU. Vital signs: P 105^, R 30^, BP 151/99^,, PO 100 RA - 95 nrb 15%, then intubated. ABGs 03/25 am: pO2 >400^, Total CO2 26^, O2 Sat 99.7^. LAB: CO2 21*, Pos antidepressants, Benzodiazepines. Treatment: IV Ativan, IV Amidate, IV Zemuron, IV fluid rate 40, IV Lacosamide, Intubated/Extubated <24 hrs. Remains in ICU. In your professional opinion, can you please clarify if these findings signify one of the following conditions? Acuity o Acute o Chronic o Acute on Chronic Specificity o Respiratory Failure (further specify (if known)): With hypercapnia? (pCO2 >50 and pH <7.35) With hypoxia? (pO2 <60 mm Hg or SpO2 <91% on room air) o Respiratory Distress o Respiratory Insufficiency o Other Diagnosis, please specify o Unable to determine (Last Revision: October 2017) MTDD
--- NOTE | 2019-03-26 15:08 | P.PN ---
Subjective Progress Note Date: 03/26/19 Principal diagnosis: Acute seizures Respiratory failure due to seizures Headaches Recent MRI and labs suggestive of prolactinoma Major depression Morbid obesity Sleep disorder breathing and sleep apnea Pseudoseizures 03/26/2019, patient seen and evaluated examined during rounds clinically he is she is doing better denies any cough congestion and denies any shortness of breath patient had episodes of what it looks like soda she seizures one was the one in the morning and another early this morning both lasted for half an hour to 45 minutes responded reverted back without any significant event currently at the time of my evaluation she is on room air breathing comfortably denies any chest pain denies headache she is awaiting an MRI, she is likely to be placed still in ICU given that the extent of seizures she is having with his spontaneous respiratory difficulty and spontaneous resolution of those difficulties The patient is a 28-year-old female who presents to the emergency department in status epilepticus. The patient does have a history of pseudoseizures and seizure disorder. The grandmother presents to bedside in ICU and provides majority of the history. She states that the patient began having seizures in August of this year. She has had several, the last of which she was seen yesterday in the emergency department for them. She recently had an MRI as there was concern for a pituitary adenoma. As per discussion with Dr. Pichardo RE EXAMINER ProTect him prolactin level was 106 likely suggestive of prolactinoma The patient does have an appointment coming up with a neurologist however they are unaware of the name of the physician. Grandmother does believe that she is taking all of her medications as directed. She was complaining of a headache around 2:30 yesterday followed by a short nap until 5 at 5 she woke up and had a seizure-like activity, she was intubated in the ER, patient has been on propofol which has been discontinued she opens eyes follow simple commands the vent settings include assist control rate of 16 and volume 450 and 30% oxygen sats are 99% she is breathing adequately with good volumes initially patient was attempted on CPAP and pressure support but she was extremely restless was seen was done to extubate patient directly and not to do weaning trial which was accomplished successfully and patient was placed on 2 L nasal oxygen Objective - Vital Signs Vital signs: Vital Signs Temp 98.2 F 03/26/19 12:00 Pulse 78 03/26/19 14:00 Resp 15 03/26/19 14:00 BP 115/69 03/26/19 14:00 Pulse Ox 98 03/26/19 14:00 Intake & Output 03/25/19 03/26/19 03/26/19 18:59 06:59 18:59 Intake Total 557.026 130 340 Output Total 815 Balance -257.974 130 340 Weight 102.4 kg Intake: IV 420 130 340 0.9 NS 420 130 290 Lacosamide IV 100 mg In 50 Sodium Chloride 0.9% 50 ml @ 100 mls/hr IVPB BID JULIO Rx#:[id number] Intake, IV Titration 137.026 Amount Cisatracurium 200 mg In 54.981 Sodium Chloride 0.9% 180 ml @ 1 MCG/KG/MIN 6.053 mls/hr IV .Q24H JULIO Rx#: [id number] Propofol 1,000 mg In 82.045 Empty Bag 1 bag @ Titrate IV .Q0M JULIO Rx#: [id number] Output: Urine 815 Other: Voiding Method Indwelling Catheter Indwelling Catheter Bedside Commode # Voids 1 1 # Bowel Movements 1 - Exam - Constitutional General appearance: average body habitus, cooperative, disheveled - EENT Eyes: anicteric sclerae, EOMI, PERRLA, poor dentition ENT: normal oropharynx - Neck Neck: normal ROM Carotids: bilateral: upstroke normal, bruit absent Thyroid: bilateral: normal size - Respiratory Respiratory: bilateral: CTA - Cardiovascular Rhythm: regular Heart sounds: normal: S1, S2 - Gastrointestinal General gastrointestinal: distended, soft - Integumentary Integumentary: normal, normal turgor - Neurologic Neurologic: CNII-XII intact - Musculoskeletal Musculoskeletal: generalized weakness, strength equal bilaterally - Psychiatric Psychiatric: A&O x's 3, appropriate affect, intact judgment & insight - Labs CBC & Chem 7: 03/26/19 05:49 03/26/19 05:49 Labs: Abnormal Lab Results - Last 24 Hours (Table) 03/25/19 03/26/19 03/26/19 Range/Units 17:30 01:48 01:48 RBC (3.80-5.40) m/uL Hgb (11.4-16.0) gm/dL Hct (34.0-46.0) % Chloride 110 H (98-107) mmol/L POC Glucose (mg/dL) 103 H (75-99) mg/dL Calcium (8.4-10.2) mg/dL Creatine Kinase 29 L (30-135) U/L Total Protein 6.0 L (6.3-8.2) g/dL Prolactin 45.6 H (2.8-29.2) ng/mL 03/26/19 03/26/19 03/26/19 Range/Units 05:49 05:49 06:55 RBC 3.54 L (3.80-5.40) m/uL Hgb 10.5 L (11.4-16.0) gm/dL Hct 32.6 L (34.0-46.0) % Chloride 110 H (98-107) mmol/L POC Glucose (mg/dL) 177 H (75-99) mg/dL Calcium 8.2 L (8.4-10.2) mg/dL Creatine Kinase (30-135) U/L Total Protein (6.3-8.2) g/dL Prolactin (2.8-29.2) ng/mL Assessment and Plan Assessment: Acute seizures Pseudoseizures Respiratory failure due to seizures Headaches Recent MRI and labs suggestive of prolactinoma Major depression Morbid obesity Sleep disorder breathing and sleep apnea Plan: Patient being extubated successfully, now off of oxygen Patient is being evaluated by neurology and psychiatry Her plan discussed with Dr. Pichardo RE EXAMINER Repeat labs tomorrow Gentle IV rehydration Continue feeding by mouth as tolerated His seizure precautions The recommendations pending plan of care as per clinical response of patient Patient will be monitored in ICU tonight Time with Patient: Greater than 30
--- NOTE | 2019-03-26 16:13 | P.PN ---
Subjective Progress Note Date: 03/26/19 This is a 28-year-old female admitted with acute seizures, respiratory failure, pseudoseizures, significant anxiety, depression and multiple other medical issues. Extubated yesterday and ICU. Vital signs stable, Maintaining O2 sats in the high 90s on room air. Seizure precautions maintained. Vimpat level pending.Prolactin level high initially 45.6, repeat level 27.3. MRI pending ruling out pituitary adenoma. Seizure reported early this morning lasting for about an hour with patient attempting to get out of bed, grabbing at rales, jerky movements, coughing, gagging-not responding to noxious stimuli. Denies lightheadedness dizziness or focal deficits. Denies headache .[facility] records regarding seizure work-up in transit.Evaluated by psychiatry, recommendations noted, appreciated. Blood sugars controlled. Objective - Vital Signs Vital signs: Vital Signs Temp 98 F 03/26/19 08:00 Pulse 87 03/26/19 10:00 Resp 20 03/26/19 10:00 BP 109/95 03/26/19 10:00 Pulse Ox 98 03/26/19 10:00 Intake & Output 03/25/19 03/26/19 03/26/19 18:59 06:59 18:59 Intake Total 557.026 130 180 Output Total 815 Balance -257.974 130 180 Weight 102.4 kg Intake: IV 420 130 180 0.9 NS 420 130 130 Lacosamide IV 100 mg In 50 Sodium Chloride 0.9% 50 ml @ 100 mls/hr IVPB BID JULIO Rx#:[id number] Intake, IV Titration 137.026 Amount Cisatracurium 200 mg In 54.981 Sodium Chloride 0.9% 180 ml @ 1 MCG/KG/MIN 6.053 mls/hr IV .Q24H JULIO Rx#: [id number] Propofol 1,000 mg In 82.045 Empty Bag 1 bag @ Titrate IV .Q0M JULIO Rx#: [id number] Output: Urine 815 Other: Voiding Method Indwelling Catheter Indwelling Catheter Bedside Commode # Voids 1 1 - Exam PHYSICAL EXAM: VITAL SIGNS: As above GENERAL: Sitting up in bed, no acute distress HEENT: Conjunctivae normal. eyes normal. Poor dentition. NECK: No JVD. No thyroid enlargement. No LNs CARDIOVASCULAR: S1, S2 regular. No murmur RESPIRATION: Breath sounds diminished in the bases. No rhonchi or crackles. No bronchial breathing. ABDOMEN: Soft, nontender . No guarding. no masses palpable. Bowel sounds heard. LEGS: No edema. no swelling PSYCHIATRY: Alert and oriented X3, mood and affect normal. NERVOUS SYSTEM: Cranial N 2-12 grossly normal. Moves all 4 limbs. Diffuse weakness, No focal deficits. Strength and sensation grossly intact. Skin: no rash - Labs CBC & Chem 7: 03/26/19 05:49 03/26/19 05:49 Labs: Abnormal Lab Results - Last 24 Hours (Table) 03/25/19 03/26/19 03/26/19 Range/Units 17:30 01:48 01:48 RBC (3.80-5.40) m/uL Hgb (11.4-16.0) gm/dL Hct (34.0-46.0) % Chloride 110 H (98-107) mmol/L POC Glucose (mg/dL) 103 H (75-99) mg/dL Calcium (8.4-10.2) mg/dL Creatine Kinase 29 L (30-135) U/L Total Protein 6.0 L (6.3-8.2) g/dL Prolactin 45.6 H (2.8-29.2) ng/mL 03/26/19 03/26/19 03/26/19 Range/Units 05:49 05:49 06:55 RBC 3.54 L (3.80-5.40) m/uL Hgb 10.5 L (11.4-16.0) gm/dL Hct 32.6 L (34.0-46.0) % Chloride 110 H (98-107) mmol/L POC Glucose (mg/dL) 177 H (75-99) mg/dL Calcium 8.2 L (8.4-10.2) mg/dL Creatine Kinase (30-135) U/L Total Protein (6.3-8.2) g/dL Prolactin (2.8-29.2) ng/mL Assessment and Plan Assessment: -Acute hypoxic respiratory failure, status post ventilator dependent, secondary to seizures -Acute seizures -Pseudoseizures -toxic metabolic encephalopathy -Anxiety disorder -Major Depression -Patient recent MRI and lab work suggestive of possible pituitary adenoma, workup in progress, MRI ordered. -Obesity, BMI 40 -Obstructive sleep apnea -Sleeping disorder Plan: Continue on current medication regime ,monitoring and symptomatic treatment. MRI ordered. [facility] records being obtained. Seizure precautions. Gentle IV fluid hydration. The impression and plan of care has been dictated as directed. : I performed a history and examination of this patient, discussed the same with the dictator. I agree with the dictator's note ,documented as a scribe. Any additional findings or plans will be noted.
[2019-03-26 17:05] LABS: Glucose,Whole Blood 93 mg/dL (75-99)
[2019-03-26] MEDS: ONDANSETRON 4 MG/2 ML VIAL IVP PRN (18:50)
[2019-03-26] MEDS: LACOSAMIDE 50 MG TABLET PO SCH (20:30)
[2019-03-26 20:38] LABS: Glucose,Whole Blood 98 mg/dL (75-99)
[2019-03-27] MEDS ORDERED: KETOROLAC 30 MG/ML 1 ML VIAL IVP SCH
[2019-03-27] MEDS: LACTATED RINGERS 1,000 ML IV SCH (00:42)
[2019-03-27 06:07] LABS: Glucose,Whole Blood 85 mg/dL (75-99)
[2019-03-27] MEDS: INSULIN ASPART (NovoLOG) 100 UNIT/ML VIAL SQ SCH ×4 (06:08→20:35)
[2019-03-27] MEDS: SODIUM CHLORIDE 0.9% 1,000 ML IV SCH (06:08)
[2019-03-27] MEDS: PANTOPRAZOLE 40 MG TABLET PO SCH (06:19)
[2019-03-27] MEDS: LACOSAMIDE 50 MG TABLET PO SCH ×2 (08:27→20:30)
[2019-03-27] MEDS: HEPARIN SODIUM,PORCINE 5,000 UNIT/ML 1 ML VIAL SQ SCH ×2 (08:27→20:30)
[2019-03-27] MEDS: LORazepam 2 MG/ML INJ IV PRN ×5 (09:31→20:30)
[2019-03-27 12:03] LABS: Glucose,Whole Blood 96 mg/dL (75-99)
[2019-03-27] MEDS: ONDANSETRON 4 MG/2 ML VIAL IVP PRN ×2 (12:22→20:57)
--- NOTE | 2019-03-27 15:38 | P.PN ---
Subjective Progress Note Date: 03/27/19 Principal diagnosis: Acute seizures Respiratory failure due to seizures Headaches Recent MRI and labs suggestive of prolactinoma Major depression Morbid obesity Sleep disorder breathing and sleep apnea Pseudoseizures 03/27/2019, patient has been moved from the ICU, doing well no seizures has been seen respiratory status stable intermittent soda she seizures have been obtained psychiatry and neurology of following 03/26/2019, patient seen and evaluated examined during rounds clinically he is she is doing better denies any cough congestion and denies any shortness of breath patient had episodes of what it looks like soda she seizures one was the one in the morning and another early this morning both lasted for half an hour to 45 minutes responded reverted back without any significant event currently at the time of my evaluation she is on room air breathing comfortably denies any chest pain denies headache she is awaiting an MRI, she is likely to be placed still in ICU given that the extent of seizures she is having with his spontaneous respiratory difficulty and spontaneous resolution of those difficulties The patient is a 28-year-old female who presents to the emergency department in status epilepticus. The patient does have a history of pseudoseizures and seizure disorder. The grandmother presents to bedside in ICU and provides majority of the history. She states that the patient began having seizures in August of this year. She has had several, the last of which she was seen yesterday in the emergency department for them. She recently had an MRI as there was concern for a pituitary adenoma. As per discussion with Dr. Pichardo KEY BED INSTALLER ProTect him prolactin level was 106 likely suggestive of prolactinoma The patient does have an appointment coming up with a neurologist however they are unaware of the name of the physician. Grandmother does believe that she is taking all of her medications as directed. She was complaining of a headache around 2:30 yesterday followed by a short nap until 5 at 5 she woke up and had a seizure-like activity, she was intubated in the ER, patient has been on propofol which has been discontinued she opens eyes follow simple commands the vent settings include assist control rate of 16 and volume 450 and 30% oxygen sats are 99% she is breathing adequately with good volumes initially patient was attempted on CPAP and pressure support but she was extremely restless was seen was done to extubate patient directly and not to do weaning trial which was accomplished successfully and patient was placed on 2 L nasal oxygen Objective - Vital Signs Vital signs: Vital Signs Temp 98.2 F 03/27/19 15:12 Pulse 86 03/27/19 15:25 Resp 33 H 03/27/19 15:25 BP 111/74 03/27/19 15:12 Pulse Ox 96 03/27/19 15:12 Intake & Output 03/26/19 03/27/19 03/27/19 18:59 06:59 18:59 Intake Total 840 100 300 Output Total 300 Balance 840 100 0 Weight 96 kg Intake: IV 340 0.9 NS 290 Lacosamide IV 100 mg In 50 Sodium Chloride 0.9% 50 ml @ 100 mls/hr IVPB BID JULIO Rx#:[id number] Oral 500 100 300 Output: Urine 300 Other: Voiding Method Bedside Commode Bedside Commode Bedside Commode # Voids 1 1 1 # Bowel Movements 1 - Exam - Constitutional General appearance: average body habitus, cooperative, disheveled - EENT Eyes: anicteric sclerae, EOMI, PERRLA, poor dentition ENT: normal oropharynx - Neck Neck: normal ROM Carotids: bilateral: upstroke normal, bruit absent Thyroid: bilateral: normal size - Respiratory Respiratory: bilateral: CTA - Cardiovascular Rhythm: regular Heart sounds: normal: S1, S2 - Gastrointestinal General gastrointestinal: distended, soft - Integumentary Integumentary: normal, normal turgor - Neurologic Neurologic: CNII-XII intact - Musculoskeletal Musculoskeletal: generalized weakness, strength equal bilaterally - Psychiatric Psychiatric: A&O x's 3, appropriate affect, intact judgment & insight - Labs CBC & Chem 7: 03/26/19 05:49 03/26/19 05:49 Assessment and Plan Assessment: Acute seizures Pseudoseizures Respiratory failure due to seizures Headaches Recent MRI and labs suggestive of prolactinoma Major depression Morbid obesity Sleep disorder breathing and sleep apnea Plan: Patient being extubated successfully, now off of oxygen Patient is being evaluated by neurology and psychiatry Her plan discussed with Dr. Pichardo KEY BED INSTALLER Repeat labs tomorrow Gentle IV rehydration Continue feeding by mouth as tolerated His seizure precautions The recommendations pending plan of care as per clinical response of patient Patient will be monitored in ICU tonight Time with Patient: Greater than 30
--- NOTE | 2019-03-27 16:35 | P.PN ---
Subjective Progress Note Date: 03/27/19 This is a 28-year-old female admitted with acute seizures, respiratory failure, pseudoseizures, significant anxiety, depression and multiple other medical issues. Extubated yesterday and ICU. Vital signs stable, Maintaining O2 sats in the high 90s on room air. Seizure precautions maintained. Vimpat level pending.Prolactin level high initially 45.6, repeat level 27.3. MRI pending ruling out pituitary adenoma. Seizure reported early this morning lasting for about an hour with patient attempting to get out of bed, grabbing at rales, jerky movements, coughing, gagging-not responding to noxious stimuli. Denies lightheadedness dizziness or focal deficits. Denies headache .[facility] records regarding seizure work-up in transit.Evaluated by psychiatry, recommendations noted, appreciated. Blood sugars controlled. 03/27/2019 transferred out of ICU currently on telemetry unit. Seizure precautions maintained. Possible Seizure activity reported when arrived and also when mother arrived. Episodes lasting for about 15 minute involving blank staring, no shaking no incontinence, no lip biting. Received Ativan. MRI attempted yesterday 2 unsuccessful, rescheduled for today. Afebrile. Denies chest pain, palpitations or shortness of breath. Denies lightheadedness dizziness or focal deficits. Objective - Vital Signs Vital signs: Vital Signs Temp 98.1 F 03/27/19 08:32 Pulse 76 03/27/19 08:32 Resp 16 03/27/19 08:32 BP 117/79 03/27/19 08:32 Pulse Ox 99 03/27/19 08:32 Intake & Output 03/26/19 03/27/19 03/27/19 18:59 06:59 18:59 Intake Total 840 100 Balance 840 100 Weight 96 kg Intake: IV 340 0.9 NS 290 Lacosamide IV 100 mg In 50 Sodium Chloride 0.9% 50 ml @ 100 mls/hr IVPB BID JULIO Rx#:[id number] Oral 500 100 Other: Voiding Method Bedside Commode Bedside Commode Bedside Commode # Voids 1 1 # Bowel Movements 1 - Exam PHYSICAL EXAM: VITAL SIGNS: As above GENERAL: Sitting up in bed, no acute distress HEENT: Conjunctivae normal. eyes normal. Poor dentition. NECK: No JVD. No thyroid enlargement. No LNs. CARDIOVASCULAR: S1, S2 regular. No murmur RESPIRATION: Breath sounds diminished in the bases. No rhonchi or crackles. No wheezing ABDOMEN: Soft, nontender . No guarding. no masses palpable. Bowel sounds heard. LEGS: No edema. no swelling. PSYCHIATRY: Alert and oriented X3, mood and affect flat. NERVOUS SYSTEM: Cranial N 2-12 grossly normal. Moves all 4 limbs. No focal deficits. Strength and sensation grossly intact. Skin: no rash - Labs CBC & Chem 7: 03/26/19 05:49 03/26/19 05:49 Labs: Abnormal Lab Results - Last 24 Hours (Table) 03/26/19 Range/Units 01:48 Prolactin 45.6 H (2.8-29.2) ng/mL Assessment and Plan Assessment: -Acute hypoxic respiratory failure, status post ventilator dependent, secondary to seizures -Acute seizures -Pseudoseizures -toxic metabolic encephalopathy -Anxiety disorder -Major Depression -Patient recent MRI and lab work suggestive of possible pituitary adenoma, workup in progress, MRI pending -Obesity, BMI 40 -Obstructive sleep apnea -Sleeping disorder Plan: Continue on current medication regime ,monitoring and symptomatic treatment. Maintain Seizure precautions. MRI had been rescheduled for today; appears it has been pushed back until tomorrow related to 8 emergent cases. Maintain gentle IV fluid hydration. Follow closely with neurology. Further recommendations to follow. The impression and plan of care has been dictated as directed. : I performed a history and examination of this patient, discussed the same with the dictator. I agree with the dictator's note ,documented as a scribe. Any additional findings or plans will be noted.
[2019-03-27 17:03] LABS: Glucose,Whole Blood 123 mg/dL (75-99)
[2019-03-27] MEDS: clonazePAM 0.5 MG TAB PO PRN (17:27)
--- NOTE | 2019-03-27 19:34 | P.CNNES ---
History of Present Illness Consult date: 03/25/19 Reason for Consult: Concern for status epilepticus History of Present Illness: REFERRING PHYSICIAN: Dr. Shila Myres HISTORY OF PRESENT ILLNESS: Thank you for allowing me to evaluate Mrs. Nate Newton. Ms. Newton is a 28 year-old woman with PMHx of GERD, seizure disorder (recently admitted to [facility] to work up for seizure, was given diagnosis of pseudoseizure), panic disorder, endometriosis, presenting to [facility] for seizure episodes. Grandmother and are at bedside. Patient is intubated and sedated. Grandmother states that she was at her usual state of health, but around 5pm yesterday, patient told grandmother that she was not feeling right and started having seizures. Patient's eyes were closed during the event. Patient intubated in ER for airway protection. Family provide report that patient underwent EEG monitoring at [facility] about 4-5 months ago where she was given diagnosis of "pseudoseizure." Patient was at [facility] for at least 5 days. In February, patient underwent hysterectomy due to patient having heavy menstrual periods and most likely had diagnosis of endometriosis. 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 Grandmother states that patient is a "workaholic," and she's been stressed as she hasn't not be able to go back to work. No financial burden experienced at this time per . also works, at . PAST MEDICAL HISTORY: GERD, seizure disorder (recently admitted to [facility] to work up for seizure), panic disorder, endometriosis, microadenoma (elevated prolactin, galactorrhea), migraine PAST SURGICAL HISTORY: Bariatric surgery, cholecystectomy, hysterectomy, left foot surgery HOME MEDICATIONS: Zolpidem 12.5 mg daily at bedtime, ranitidine, Reglan 5 mg 3 times a day, mucosal night 100 mg twice a day, clonazepam when necessary, Emgality ALLERGIES: Amoxicillin, hydrocodone SOCIAL HISTORY: Never smoker, denies all goal abuse or drug abuse FAMILY HISTORY: Mother with hyperlipidemia, irregular heart rhythm. Father with hyperlipidemia and hypertension. Paternal grandfather with kidney disorder colon cancer. Sister DVT and cervical cancer REVIEW OF SYSTEMS: The 14 systems are reviewed and no additional points are identified compared to the review of systems documented history and physical PHYSICAL EXAMINATION: VITAL SIGNS: T 97.7 HR 74 RR 14 BP 123/79 O2 Sat 100% on vent GEN.: NAD, intubated and sedated HEENT: NCAT, sclera without icterus NECK: Supple SKIN AND EXTREMITIES: Warm to touch, no edema NEURO: MENTAL STATUS: Patient at the beginning of evaluation had eyes open. CRANIAL NERVES II THROUGH XII: II: Pupils are equal and reactive to light symmetrically. Blinks to threat bilaterally. III, IV, : No ptosis. VII. No clear facial asymmetry. MOTOR: Normal bulk/tone. Moving all 4 extremities spontaneously SENSORY: Mild grimacing to pain in all 4 extremities (patient on propofol gtt) REFLEXES: 2+ throughout. Toes are downgoing. COORDINATION/GAIT: deferred as patient on propofol gtt DIAGNOSTIC TESTING: LABORATORY: WBC 10.1 hemoglobin 11.9 and platelet 250 sodium 139 potassium 3.9 chloride 112 bicarb 22 BUN 14 creatinine 0.51 glucose 100 AST 21 ALT 19 alk phos 67 urinalysis negative urine toxicology positive for TCA and benzo IMAGING: EEG 03/25/2019: CT head without contrast 03/25/2019: No acute intracranial process present. MRI brain with and without contrast 03/23/2019: Overall, MRI brain without and with contrast appears within normal limits. Recommend follow-up MRI with contrast with pituitary tumor microadenoma which may not be appreciated on exam. ASSESSMENT: Ms. Newton is a 28 year-old woman with PMHx of GERD, seizure disorder (recently admitted to [facility] to work up for seizure, was given diagnosis of pseudoseizure), panic disorder, endometriosis, presenting to [facility] for seizure episodes. Patient most likely had this event in the setting of acut e stressor (hysterectomy, inability to return to work) but also cannot rule out seizure even if patient has had extensive EMU monitoring at [facility]. RECOMMENDATIONS: 1. Continue home dose of Vimpat 100mg BID 2. Patient does not have an outpatient Neurologist at this time. Patient needs an outpatient Neurology follow-up within 2-3 weeks of discharge. 3. Routine EEG 3. Neurology will sign off at this time. Please feel free to contact Neurology again if with additional questions or concerns. Past Medical History Past Medical History: GERD/Reflux, Seizure Disorder Additional Past Medical History / Comment(s): last pseudoseizure week & half ago she was then worked up at [facility] and discharged home., placed on atenolol recently for fast heart rate, intermittent vertigo History of Any Multi-Drug Resistant Organisms: None Reported Past Surgical History: Bariatric Surgery, Cholecystectomy, Hysterectomy, Orthopedic Surgery Additional Past Surgical History / Comment(s): LEFT FOOT SX, Right fallopian tube removed; SLEEVE GASTRECTOMY; EGD W DILATION, LAPAROSCOPIC EXAM. 02/12/2019 Robotic Hysterectomy Past Anesthesia/Blood Transfusion Reactions: Motion Sickness, Postoperative Nausea & Vomiting (PONV) Past Psychological History: Panic Disorder Smoking Status: Never smoker Past Alcohol Use History: None Reported Past Drug Use History: None Reported - Past Family History Sister(s) Family Medical History: Cancer, Deep Vein Thrombosis (DVT) Additional Family Medical History / Comment(s): Cervical cancer. Mother Family Medical History: Hyperlipidemia Additional Family Medical History / Comment(s): HEART PROBLEMS, IRREG RYTHM Father Family Medical History: Hyperlipidemia, Hypertension Additional Family Medical History / Comment(s): Paternal grandfather had kidney disorder and colon cancer. Medications and Allergies Home Medications Medication Instructions Recorded Confirmed Type Zolpidem Tartrate [Ambien Cr] 12.5 mg PO HS 01/13/18 03/24/19 History Ranitidine HCl [Zantac] 150 mg PO BID #60 tab 01/14/18 03/24/19 Rx Metoclopramide HCl [Reglan] 5 mg PO TID 07/30/18 03/24/19 History ALPRAZolam [Xanax] 1 mg PO HS PRN 10/01/18 03/24/19 History Lacosamide [Vimpat] 100 mg PO BID 02/12/19 03/24/19 History Galcanezumab-Gnlm [Emgality 120 mg SQ Q28D 03/19/19 03/24/19 History Syringe] clonazePAM 0.5 mg PO TID PRN 03/24/19 03/24/19 History Allergies Allergy/AdvReac Type Severity Reaction Status Date / Time amoxicillin [Amoxicillin] AdvReac Mild Yeast Verified 03/24/19 21:12 Infection hydrocodone [From [place]] AdvReac Mild Nausea & Verified 03/24/19 21:12 Vomiting Physical Examination - Vital Signs Vital Signs: Vital Signs Temp Pulse Resp BP Pulse Ox 03/25/19 07:00 70 14 131/79 100 03/25/19 06:30 73 14 125/77 100 03/25/19 06:00 72 14 129/87 100 03/25/19 05:30 75 14 100 03/25/19 05:00 70 14 109/78 100 03/25/19 04:30 72 14 116/75 100 03/25/19 04:00 97.7 F 74 14 123/79 100 03/25/19 03:30 69 14 100 03/25/19 03:00 69 14 126/78 100 03/25/19 02:30 70 14 100 03/25/19 02:00 73 19 123/92 100 03/25/19 01:30 74 14 100 03/25/19 01:20 70 14 100 03/25/19 01:10 97.6 F 74 14 109/77 100 03/25/19 00:45 76 116/74 100 03/25/19 00:30 81 124/72 100 03/25/19 00:15 79 136/79 99 03/25/19 00:05 84 140/82 100 03/24/19 23:56 97.6 F 80 22 126/73 100 03/24/19 23:28 82 20 133/28 100 03/24/19 23:00 22 03/24/19 22:30 136/79 99 03/24/19 22:24 89 22 138/92 99 03/24/19 22:00 97 22 133/87 99 03/24/19 21:45 146/95 03/24/19 21:30 152/108 96 03/24/19 21:16 143/88 95 03/24/19 21:13 98 F 105 H 30 H 151/99 100 03/24/19 21:06 151/99 Intake and Output 03/24/19 03/25/19 03/25/19 22:59 06:59 14:59 Intake Total 9.735 461.376 40 Output Total 100 1435 75 Balance -90.265 -973.624 -35 Intake: IV 240 40 0.9 NS 240 40 Intake, IV Titration 9.735 221.376 Amount Propofol 1,000 mg In 9.735 41.007 Empty Bag 1 bag @ Titrate IV .Q0M ONE Rx#: [id number] Propofol 1,000 mg In 180.369 Empty Bag 1 bag @ Titrate IV .Q0M [facility] Rx#: [id number] Output: Urine 100 1435 75 Uretheral (Brunson) 100 Other: Voiding Method Indwelling Catheter Weight 100.879 kg Results - Laboratory Findings CBC and BMP: 03/25/19 04:38 03/25/19 04:38 Abnormal Lab Findings: Abnormal Labs 03/24/19 03/24/19 03/25/19 21:27 21:27 01:20 ABG pO2 >400 H ABG Total CO2 26 H ABG O2 Saturation 99.7 H Chloride 111 H Carbon Dioxide 21 L BUN 20 H Creatinine Glucose Total Protein 6.2 L Urine Protein Trace H U Tricyclic Antidepress Detected H U Benzodiazepines Scrn Detected H 03/25/19 04:38 ABG pO2 ABG Total CO2 ABG O2 Saturation Chloride 112 H Carbon Dioxide BUN Creatinine 0.51 L Glucose 100 H Total Protein Urine Protein U Tricyclic Antidepress U Benzodiazepines Scrn
[2019-03-27 20:37] LABS: Glucose,Whole Blood 123 mg/dL (75-99)
--- NOTE | 2019-03-28 00:03 | MR ---
EXAMINATION TYPE: MR pituitary wo/w con DATE OF EXAM: 03/27/2019 COMPARISON: Prior MRI brain January 30, 2019. HISTORY: asses for pituitary adenoma, prior abnormal MRI. TECHNIQUE: Multiplanar, multisequence images of the brain and brainstem is performed without and with IV contras t, utilizing 10 mL intravenous Gadavist . Pituitary gland protocol. FINDINGS: There is some fullness of the pituitary gland and sella turcica. Pituitary stalk shows norm al enhancement in the midline. Suprasellar cistern is maintained. Postcontrast images show fairly paola ogeneous enhancement without definitive area of nonenhancement. Optic chiasm is not effaced. No gross hydrocephalus. Adjacent carotid siphons are maintained. Craniocervical junction is within normal martins its. IMPRESSION: No convincing MRI evidence for pituitary microadenoma or macroadenoma on this study.
[2019-03-28 06:06] LABS: Glucose,Whole Blood 93 mg/dL (75-99)
[2019-03-28] MEDS: INSULIN ASPART (NovoLOG) 100 UNIT/ML VIAL SQ SCH ×4 (06:20→19:46)
[2019-03-28] MEDS: PANTOPRAZOLE 40 MG TABLET PO SCH (06:32)
[2019-03-28] MEDS: SODIUM CHLORIDE 0.9% 1,000 ML IV SCH (08:54)
[2019-03-28] MEDS: KETOROLAC 30 MG/ML 1 ML VIAL IVP PRN (09:05)
[2019-03-28] MEDS: HEPARIN SODIUM,PORCINE 5,000 UNIT/ML 1 ML VIAL SQ SCH ×2 (09:05→19:24)
[2019-03-28] MEDS: ONDANSETRON 4 MG/2 ML VIAL IVP PRN ×2 (09:05→18:07)
[2019-03-28] MEDS: LACOSAMIDE 50 MG TABLET PO SCH ×2 (09:05→19:24)
[2019-03-28] MEDS: LORazepam 2 MG/ML INJ IV PRN ×5 (09:32→22:36)
[2019-03-28 12:10] LABS: Glucose,Whole Blood 67 mg/dL (75-99)
[2019-03-28 12:10] LABS: Glucose,Whole Blood 75 mg/dL (75-99)
--- NOTE | 2019-03-28 13:34 | P.PN ---
Subjective Progress Note Date: 03/28/19 Principal diagnosis: Acute seizures Respiratory failure due to seizures Headaches Recent MRI and labs suggestive of prolactinoma Major depression Morbid obesity Sleep disorder breathing and sleep apnea Pseudoseizures 03/28/2019, patient seen and evaluated examined during the rounds doing well breathing comfortably denies any chest pain is still have intermittent episodes of pseudoseizures, I've discussed with patient at length that needs to follow-up with endocrine as outpatient in addition to her primary care and PAPER BAG MAKER 03/27/2019, patient has been moved from the ICU, doing well no seizures has been seen respiratory status stable intermittent Pseudo seizures have been obtained psychiatry and neurology of following 03/26/2019, patient seen and evaluated examined during rounds clinically he is she is doing better denies any cough congestion and denies any shortness of breath patient had episodes of what it looks like soda she seizures one was the one in the morning and another early this morning both lasted for half an hour to 45 minutes responded reverted back without any significant event currently at the time of my evaluation she is on room air breathing comfortably denies any chest pain denies headache she is awaiting an MRI, she is likely to be placed still in ICU given that the extent of seizures she is having with his spontaneous respiratory difficulty and spontaneous resolution of those difficulties The patient is a 28-year-old female who presents to the emergency department in status epilepticus. The patient does have a history of pseudoseizures and seizure disorder. The grandmother presents to bedside in ICU and provides majority of the history. She states that the patient began having seizures in August of this year. She has had several, the last of which she was seen yesterday in the emergency department for them. She recently had an MRI as there was concern for a pituitary adenoma. As per discussion with Dr. Pichardo PAPER BAG MAKER ProTect him prolactin level was 106 likely suggestive of prolactinoma The patient does have an appointment coming up with a neurologist however they are unaware of the name of the physician. Grandmother does believe that she is taking all of her medications as directed. She was complaining of a headache around 2:30 yesterday followed by a short nap until 5 at 5 she woke up and had a seizure-like activity, she was intubated in the ER, patient has been on propofol which has been discontinued she opens eyes follow simple commands the vent settings include assist control rate of 16 and volume 450 and 30% oxygen sats are 99% she is breathing adequately with good volumes initially patient was attempted on CPAP and pressure support but she was extremely restless was seen was done to extubate patient directly and not to do weaning trial which was accomplished successfully and patient was placed on 2 L nasal oxygen Objective - Vital Signs Vital signs: Vital Signs Temp 97.6 F 03/28/19 12:00 Pulse 87 03/28/19 12:00 Resp 18 03/28/19 12:00 BP 116/79 03/28/19 12:00 Pulse Ox 97 03/28/19 12:00 Intake & Output 03/27/19 03/28/19 03/28/19 18:59 06:59 18:59 Intake Total 300 10 Output Total 300 Balance 0 10 Weight 94.2 kg Intake: IV 10 Invasive Line 2 10 Oral 300 Output: Urine 300 Other: Voiding Method Bedside Commode Bedside Commode # Voids 1 1 - Exam - Constitutional General appearance: average body habitus, cooperative, disheveled - EENT Eyes: anicteric sclerae, EOMI, PERRLA, poor dentition ENT: normal oropharynx - Neck Neck: normal ROM Carotids: bilateral: upstroke normal, bruit absent Thyroid: bilateral: normal size - Respiratory Respiratory: bilateral: CTA - Cardiovascular Rhythm: regular Heart sounds: normal: S1, S2 - Gastrointestinal General gastrointestinal: distended, soft - Integumentary Integumentary: normal, normal turgor - Neurologic Neurologic: CNII-XII intact - Musculoskeletal Musculoskeletal: generalized weakness, strength equal bilaterally - Psychiatric Psychiatric: A&O x's 3, appropriate affect, intact judgment & insight - Labs CBC & Chem 7: 03/26/19 05:49 03/26/19 05:49 Labs: Abnormal Lab Results - Last 24 Hours (Table) 03/27/19 03/27/19 03/28/19 Range/Units 16:44 20:35 11:45 POC Glucose (mg/dL) 123 H 123 H 67 L (75-99) mg/dL Assessment and Plan Assessment: Microadenoma Pituatry/prolactinoma Acute seizures Pseudoseizures Respiratory failure due to seizures Headaches Recent MRI and labs suggestive of prolactinoma Major depression Morbid obesity Sleep disorder breathing and sleep apnea Plan: Patient is being evaluated by neurology and psychiatry Her plan discussed with Dr. Pichardo PAPER BAG MAKER Continue feeding by mouth as tolerated seizure precautions The recommendations pending plan of care as per clinical response of patient Follow with endocrine as outpatient Time with Patient: Greater than 30
[2019-03-28] MEDS: clonazePAM 0.5 MG TAB PO PRN (17:21)
[2019-03-28 19:29] LABS: Glucose,Whole Blood 104 mg/dL (75-99)
[2019-03-28] MEDS ORDERED: ZOLPIDEM 5 MG TAB PO PRN (20:47)
[2019-03-29] MEDS: PANTOPRAZOLE 40 MG TABLET PO SCH (06:09)
[2019-03-29] MEDS: INSULIN ASPART (NovoLOG) 100 UNIT/ML VIAL SQ SCH ×4 (06:10→19:44)
[2019-03-29 06:11] LABS: Glucose,Whole Blood 79 mg/dL (75-99)
[2019-03-29] MEDS: SODIUM CHLORIDE 0.9% 1,000 ML IV SCH (06:15)
[2019-03-29] MEDS: LACOSAMIDE 50 MG TABLET PO SCH ×2 (09:36→19:50)
[2019-03-29] MEDS: HEPARIN SODIUM,PORCINE 5,000 UNIT/ML 1 ML VIAL SQ SCH ×2 (09:36→19:49)
[2019-03-29 11:43] LABS: Glucose,Whole Blood 105 mg/dL (75-99)
--- NOTE | 2019-03-29 12:18 | P.PN ---
Subjective Progress Note Date: 03/29/19 Principal diagnosis: Acute seizures Respiratory failure due to seizures Headaches Recent MRI and labs suggestive of prolactinoma Major depression Morbid obesity Sleep disorder breathing and sleep apnea Pseudoseizures 03/29/2019, patient seen eval examined during the rounds, overall no significant change at this point time we'll follow this patient on as needed basis 03/28/2019, patient seen and evaluated examined during the rounds doing well breathing comfortably denies any chest pain is still have intermittent episodes of pseudoseizures, I've discussed with patient at length that needs to follow-up with endocrine as outpatient in addition to her primary care and [employer]IST 03/27/2019, patient has been moved from the ICU, doing well no seizures has been seen respiratory status stable intermittent Pseudo seizures have been obtained psychiatry and neurology of following 03/26/2019, patient seen and evaluated examined during rounds clinically he is she is doing better denies any cough congestion and denies any shortness of breath patient had episodes of what it looks like soda she seizures one was the one in the morning and another early this morning both lasted for half an hour to 45 minutes responded reverted back without any significant event currently at the time of my evaluation she is on room air breathing comfortably denies any chest pain denies headache she is awaiting an MRI, she is likely to be placed still in ICU given that the extent of seizures she is having with his spontaneous respiratory difficulty and spontaneous resolution of those difficulties The patient is a 28-year-old female who presents to the emergency department in status epilepticus. The patient does have a history of pseudoseizures and seizure disorder. The grandmother presents to bedside in ICU and provides majority of the history. She states that the patient began having seizures in August of this year. She has had several, the last of which she was seen yesterday in the emergency department for them. She recently had an MRI as there was concern for a pituitary adenoma. As per discussion with Dr. Pichardo [employer] MANUFACTURING SPECIALIST ProTect him prolactin level was 106 likely suggestive of prolactinoma The patient does have an appointment coming up with a neurologist however they are unaware of the name of the physician. Grandmother does believe that she is taking all of her medications as directed. She was complaining of a headache around 2:30 yesterday followed by a short nap until 5 at 5 she woke up and had a seizure-like activity, she was intubated in t ER, patient has been on propofol which has been discontinued she opens eyes follow simple commands the vent settings include assist control rate of 16 and volume 450 and 30% oxygen sats are 99% she is breathing adequately with good volumes initially patient was attempted on CPAP and pressure support but she was extremely restless was seen was done to extubate patient directly and not to do weaning trial which was accomplished successfully and patient was placed on 2 L nasal oxygen Objective - Vital Signs Vital signs: Vital Signs Temp 97.5 F L 03/29/19 08:00 Pulse 83 03/29/19 08:00 Resp 20 03/29/19 08:00 BP 111/60 03/29/19 08:00 Pulse Ox 100 03/29/19 08:00 Intake & Output 03/28/19 03/29/19 03/29/19 18:59 06:59 18:59 Intake Total 300 222 Balance 300 222 Intake: Oral 300 222 Other: Voiding Method Bedside Commode # Voids 1 0 - Exam - Constitutional General appearance: average body habitus, cooperative, disheveled - EENT Eyes: anicteric sclerae, EOMI, PERRLA, poor dentition ENT: normal oropharynx - Neck Neck: normal ROM Carotids: bilateral: upstroke normal, bruit absent Thyroid: bilateral: normal size - Respiratory Respiratory: bilateral: CTA - Cardiovascular Rhythm: regular Heart sounds: normal: S1, S2 - Gastrointestinal General gastrointestinal: distended, soft - Integumentary Integumentary: normal, normal turgor - Neurologic Neurologic: CNII-XII intact - Musculoskeletal Musculoskeletal: generalized weakness, strength equal bilaterally - Psychiatric Psychiatric: A&O x's 3, appropriate affect, intact judgment & insight - Labs CBC & Chem 7: 03/26/19 05:49 03/26/19 05:49 Labs: Abnormal Lab Results - Last 24 Hours (Table) 03/28/19 03/29/19 Range/Units 19:28 11:42 POC Glucose (mg/dL) 104 H 105 H (75-99) mg/dL Assessment and Plan Assessment: Microadenoma Pituatry/prolactinoma Acute seizures/Pseudoseizures Respiratory failure due to seizures, resolved Chronic Headaches Recent labs suggestive of prolactinoma Major depression Morbid obesity Sleep disorder breathing and sleep apnea Plan: Patient is being evaluated by neurology and psychiatry Her plan discussed with Dr. Pichardo [employer]CT[employer]ING SPECIALIST Continue feeding by mouth as tolerated seizure precautions The recommendations pending plan of care as per clinical response of patient Follow with endocrine as outpatient Time with Patient: Greater than 30
[2019-03-29] MEDS: ONDANSETRON 4 MG/2 ML VIAL IVP PRN ×2 (12:33→18:43)
[2019-03-29] MEDS: LORazepam 2 MG/ML INJ IV PRN (12:55)
[2019-03-29 16:47] LABS: Glucose,Whole Blood 102 mg/dL (75-99)
[2019-03-29] MEDS: ACETAMINOPHEN TAB 325 MG TAB PO PRN (18:43)
[2019-03-29] MEDS: clonazePAM 0.5 MG TAB PO PRN (19:50)
[2019-03-29] MEDS: ZOLPIDEM 5 MG TAB PO PRN (19:50)
[2019-03-29] MEDS: KETOROLAC 30 MG/ML 1 ML VIAL IVP PRN (19:55)
--- NOTE | 2019-03-29 21:25 | PN ---
PROGRESS NOTE SUBJECTIVE: 28-year-old white female with seizure-like activity, severe lethargy. Apparently she can ambulate but has difficulty with movement issues when her family is around. EEG is normal. Neurology signed off. Psychiatry may have signed off also. Possible discharge home tomorrow if she ambulates and does well. Cardiovascular S1-S2. Lungs clear. GI soft. Hematology: Negative Homans. ASSESSMENT: Acute seizures, respiratory failure secondary to seizures, headaches, prolactinoma, major depression, obesity, sleep disorder, sleep apnea, pseudoseizures. Possible discharge home tomorrow if the patient is doing well. Increase ambulation. Pituitary MRI shows no pituitary difficulties in the brain at all. Discharge home in the morning. MMODL / IJN: [id number] /
[2019-03-30] MEDS: PANTOPRAZOLE 40 MG TABLET PO SCH (06:22)
[2019-03-30] MEDS: SODIUM CHLORIDE 0.9% 1,000 ML IV SCH (08:46)
[2019-03-30] MEDS: HEPARIN SODIUM,PORCINE 5,000 UNIT/ML 1 ML VIAL SQ SCH ×2 (08:51→20:18)
[2019-03-30] MEDS: LACOSAMIDE 50 MG TABLET PO SCH ×2 (08:52→20:18)
[2019-03-30] MEDS: clonazePAM 0.5 MG TAB PO PRN (20:19)
[2019-03-30] MEDS: LORazepam 2 MG/ML INJ IV PRN ×2 (20:19→23:11)
[2019-03-30] MEDS: KETOROLAC 30 MG/ML 1 ML VIAL IVP PRN (20:27)
[2019-03-30] MEDS: ZOLPIDEM 5 MG TAB PO PRN ×2 (20:27→20:58)
[2019-03-30] MEDS: ONDANSETRON 4 MG/2 ML VIAL IVP PRN (22:00)
[2019-03-31] MEDS: ASPIRIN-ACET-CAFF 250-250-65MG 1 EACH TAB PO PRN ×2 (00:30→13:04)
[2019-03-31 06:47] VITALS: RESP 17
[2019-03-31] MEDS: PANTOPRAZOLE 40 MG TABLET PO SCH (06:54)
[2019-03-31] MEDS: SODIUM CHLORIDE 0.9% 1,000 ML IV SCH (09:19)
[2019-03-31] MEDS: HEPARIN SODIUM,PORCINE 5,000 UNIT/ML 1 ML VIAL SQ SCH (09:19)
[2019-03-31] MEDS: LACOSAMIDE 50 MG TABLET PO SCH (09:20)
[2019-03-31] MEDS: clonazePAM 0.5 MG TAB PO PRN (09:20)
[2019-03-31 11:44] VITALS: TEMP 97.2
[2019-03-31] MEDS ORDERED: clonazePAM 0.5 MG TAB PO PRN (11:44)
[2019-03-31] MEDS ORDERED: SERTRALINE 50 MG TAB PO SCH (11:45)
--- NOTE | 2019-03-31 12:08 | P.PN ---
Progress Note - Text Progress Note Date: 03/31/19 Interval History: Psychiatry was asked to see patient today for follow-up prior to discharge and to review medications. As per nurse taking care of the patient states that patient has had no behavioral problems and has been taking her medications. Patient was agreeable to speak to health science writer however appear to be irritable/upset at the fact that nobody had answers for her. She spoke of going to too many doctors and claims that they look at her like "I'm crazy". Patient states that the only thing she feels stressed about is having another seizure and wants to get back to her life. She claims that her mood is "okay" and denies any depressive symptoms. She did endorse mild anxiety at this time and states that she has poor sleep at home. She claimed that she has fair energy and fair appetite and wants to get discharged soon as she can. Patient denies any stressors at home at this time only the fact that she cannot go back to work. Patient did review some of her symptoms pre-at all and post ictal with the health science writer just to clarify. She states that she does have some tongue biting she admitted to losing continence and also admitted to some postictal confusion. At this time patient denies any suicidal or homical ideations, intent or plan. Patient denies any auditory, visual hallucinations and denies any paranoia or delusions. Patient denies any side effects from the medications and has been compliant with meds. Mental Status Exam: General Appearance: Patient appears to be stated age is alert, pleasant, and cooperative. Patient is in hospital gown and appears to have fair hygiene and fair grooming. Behavior: Patient is lying calmly in the hospital bed without any agitated behavior. Patient appeared to be somewhat irritable this morning. Speech: Patient's speech is fluent and nonpressured. Somewhat irritable tone. Mood/Affect: Mood is "ok", affect is congruent and constricted. Suicidality/Homicidality: Patient denies having any suicidal or homicidal ideation intent or plan. Perceptions: Patient denies any auditory or visual hallucinations. Though content/process: There is no evidence of any delusional thought content and thought process is linear and goal-directed. Memory and concentration: AOX3, grossly intact for the purposes of this session Judgment and insight: fair Assessment Anxiety disorder unspecified rule out pseudoseizures vs seizures secondary to toxic metabolic encephalopathy. PLAN: -At this time patient does NOT meet criteria for inpatient psychiatric admission. - Patient again confirms that she is having certain symptoms which are not congruent/aligned with pseudoseizures including tongue biting, incontinence, postictal confusion etc. Also it does not seem the patient is having any secondary gain at this time from having these seizures. Patient will need to continue to have workup/consultation with endocrinology for the elevated prolactin levels and the EEG findings of toxic metabolic changes. -Although anxiety/stress may be partially contributing to her current condition, patient is agreeable to start medication for anxiety. Started patient on Zoloft 50 mg daily for mood/anxiety with 1 dose now. Also will start patient on hydroxyzine 50 mg daily at bedtime for sleep/anxiety. Zoloft can be titrated up in 3-4 days to 100 mg daily for anxiety by her outpatient primary care provider. If patient continues to have problems with sleep difficulties patient can be started on either trazodone 50 mg daily at bedtime or Remeron 15 mg daily at bedtime for insomnia and mood. -Decreased patient's Klonopin to 0.5 mg daily when necessary for anxiety and discontinued Ambien at this time. Please try to avoid benzodiazepines including Xanax to treat anxiety in this patient as he could develop abuse/tolerance. -Psychiatry will sign off at this point and patient was instructed to follow up with her primary care doctor and also with endocrinology for further workup. Suggested to patient to also have outpatient neurology follow-up as well.
[2019-03-31 14:41] VITALS: BP 139/82; PULSE 107
--- NOTE | 2019-03-31 16:23 | P.PN ---
Subjective Progress Note Date: 03/30/19 This is a 28-year-old female admitted with acute seizures, respiratory failure, pseudoseizures, significant anxiety, depression and multiple other medical issues. Extubated yesterday and ICU. Vital signs stable, Maintaining O2 sats in the high 90s on room air. Seizure precautions maintained. Vimpat level pending.Prolactin level high initially 45.6, repeat level 27.3. MRI pending ruling out pituitary adenoma. Seizure reported early this morning lasting for about an hour with patient attempting to get out of bed, grabbing at rales, jerky movements, coughing, gagging-not responding to noxious stimuli. Denies lightheadedness dizziness or focal deficits. Denies headache .[facility] records regarding seizure work-up in transit.Evaluated by psychiatry, recommendations noted, appreciated. Blood sugars controlled. 03/27/2019 transferred out of ICU currently on telemetry unit. Seizure precautions maintained. Possible Seizure activity reported when arrived and also when mother arrived. Episodes lasting for about 15 minute involving blank staring, no shaking no incontinence, no lip biting. Received Ativan. MRI attempted yesterday 2 unsuccessful, rescheduled for today. Afebrile. Denies chest pain, palpitations or shortness of breath. Denies lightheadedness dizziness or focal deficits. 03/30/2019 currently calm, without anxiety, no further seizure activity. Seizure precautions maintained. Good diet intake with no nausea vomiting or diarrhea. Denies abdominal pain. Ambulating, tolerating exertion well. Denies lightheadedness dizziness or focal deficits. Denies chest pain, palpitations or shortness of breath. Discharge planning in progress pending psychiatry r ecommendations. Vital signs stable. Objective - Vital Signs Vital signs: Vital Signs Temp 97.6 F 03/30/19 07:00 Pulse 94 03/30/19 15:00 Resp 20 03/30/19 15:00 BP 131/80 03/30/19 15:00 Pulse Ox 94 L 03/30/19 15:00 Intake & Output 03/29/19 03/30/19 03/30/19 18:59 06:59 18:59 Intake Total 666 310 562 Balance 666 310 562 Intake: IV 10 Invasive Line 5 10 Oral 666 300 562 Other: Voiding Method Bedside Commode # Voids 2 1 1 - Exam PHYSICAL EXAM: VITAL SIGNS: As above GENERAL: Sitting up in bed, no acute distress HEENT: Conjunctivae normal. eyes normal. Oral mucosa moist. NECK: No JVD. No thyroid enlargement. No LNs. CARDIOVASCULAR: S1, S2 regular. No murmur RESPIRATION: Breath sounds diminished in the bases. No rhonchi or crackles. No wheezing ABDOMEN: Soft, nontender . No guarding. no masses palpable. Bowel sounds heard. LEGS: No edema. no swelling. PSYCHIATRY: Alert and oriented X3, mood and affect flat. NERVOUS SYSTEM: Cranial N 2-12 grossly normal. Moves all 4 limbs. No focal deficits. Strength and sensation grossly intact. Skin: no rash - Labs CBC & Chem 7: 03/26/19 05:49 03/26/19 05:49 Assessment and Plan Assessment: -Acute hypoxic respiratory failure, status post ventilator dependent, secondary to seizures -Acute seizures -Pseudoseizures -toxic metabolic encephalopathy -Anxiety disorder -Major Depression -Prolactinoma, pituitary MRI did not report pituitary microadenoma or macroadenoma -Obesity, BMI 40 -Obstructive sleep apnea -Sleeping disorder Plan: Continue on current medication regime ,monitoring and symptomatic treatment. Maintain Seizure precautions. Discharge planning in progress for today pending psychiatry DC recommendations/clearance. The impression and plan of care has been dictated as directed. : I performed a history and examination of this patient, discussed the same with the dictator. I agree with the dictator's note ,documented as a scribe. Any additional findings or plans will be noted.
--- NOTE | 2019-03-31 16:40 | P.DS ---
Providers Date of admission: 03/25/19 00:12 Expected date of discharge: 03/31/19 Attending physician: Jacinto Olivares Consults: 03/25/19 00:12 Consult Physician Urgent Consulting Provider: Jr Talley Consult Reason/Comments: vent dependance Do you want consulting provider notified?: Yes, Notify in am Consult Physician Urgent Consulting Provider: Emily Leyva Consult Reason/Comments: status epilepticus Do you want consulting provider notified?: Yes, Notify in am 03/25/19 10:51 Consult Physician Routine Consulting Provider: Brad Richardson Consult Reason/Comments: potential pschogenic seizures Do you want consulting provider notified?: Yes 03/29/19 10:16 Consult Physician Routine Consulting Provider: Brad Richardson Consult Reason/Comments: Pseudoseizures Do you want consulting provider notified?: Yes Primary care physician: [facility] Course: Final Diagnoses: -Acute hypoxic respiratory failure, status post ventilator dependent, secondary to seizures -Acute seizures -Pseudoseizures -toxic metabolic encephalopathy -Anxiety disorder -Major Depression -Prolactinoma, pituitary MRI did not report pituitary microadenoma or macroadenoma -Obesity, BMI 40 -Obstructive sleep apnea -Sleeping disorder This is a 28-year-old female admitted with acute seizures, respiratory failure, pseudoseizures, significant anxiety, depression and multiple other medical issues. Extubated yesterday and ICU. Vital signs stable, Maintaining O2 sats in the high 90s on room air. Seizure precautions maintained. Vimpat level pending.Prolactin level high initially 45.6, repeat level 27.3. MRI pending ruling out pituitary adenoma. Seizure reported early this morning lasting for about an hour with patient attempting to get out of bed, grabbing at rales, j erky movements, coughing, gagging-not responding to noxious stimuli. Denies lightheadedness dizziness or focal deficits. Denies headache .[facility] records regarding seizure work-up in transit.Evaluated by psychiatry, recommendations noted, appreciated. Blood sugars controlled. 03/27/2019 transferred out of ICU currently on telemetry unit. Seizure precautions maintained. Possible Seizure activity reported when arrived and also when mother arrived. Episodes lasting for about 15 minute involving blank staring, no shaking no incontinence, no lip biting. Received Ativan. MRI attempted yesterday 2 unsuccessful, rescheduled for today. Afebrile. Denies chest pain, palpitations or shortness of breath. Denies lightheadedness dizziness or focal deficits. 03/30/2019 currently calm, without anxiety, no further seizure activity. Seizure precautions maintained. Good diet intake with no nausea vomiting or diarrhea. Denies abdominal pain. Ambulating, tolerating exertion well. Denies lightheadedness dizziness or focal deficits. Denies chest pain, palpitations or shortness of breath. Discharge planning in progress pending psychiatry recommendations. Vital signs stable. Evaluated by a psychiatry, recommendations/med adjustments noted and appreciated. Cleared by psychiatry for discharge home. Patient is being discharged home in a stable condition with guarded prognosis. EXAM: GENERAL: Alert and oriented 3, no acute distress CARDIOVASCULAR: S1, S2 regular. No murmur RESPIRATION: Breath sounds diminished in the bases. No rhonchi or crackles. No wheezing ABDOMEN: Soft, nontender . No guarding. no masses palpable. Bowel sounds heard. NERVOUS SYSTEM: No focal deficits. The impression and plan of care has been dictated as directed. : I performed a history and examination of this patient, discussed the same with the dictator. I agree with the dictator's note ,documented as a scribe. Any additional findings or plans will be noted. Time taken: 35 minutes Patient Condition at Discharge: Stable Plan - Discharge Summary Discharge Rx Participant: Yes New Discharge Prescriptions: New hydrOXYzine HCL [Atarax] 50 mg PO HS PRN #30 tab PRN Reason: Anxiety Sertraline HCl [Zoloft] 50 mg PO HS #30 tablet Continue Ranitidine HCl [Zantac] 150 mg PO BID #60 tab Metoclopramide HCl [Reglan] 5 mg PO TID Lacosamide [Vimpat] 100 mg PO BID Galcanezumab-Gnlm [Emgality Syringe] 120 mg SQ Q28D Changed clonazePAM 0.5 mg PO DAILY PRN #0 PRN Reason: Anxiety Discharge Medication List Ranitidine HCl [Zantac] 150 mg PO BID #60 tab 01/14/18 [Rx] Metoclopramide HCl [Reglan] 5 mg PO TID 07/30/18 [History] Lacosamide [Vimpat] 100 mg PO BID 02/12/19 [History] Galcanezumab-Gnlm [Emgality Syringe] 120 mg SQ Q28D 03/19/19 [History] Sertraline HCl [Zoloft] 50 mg PO HS #30 tablet 03/31/19 [Rx] clonazePAM 0.5 mg PO DAILY PRN #0 03/31/19 [Rx] hydrOXYzine HCL [Atarax] 50 mg PO HS PRN #30 tab 03/31/19 [Rx] Follow up Appointment(s)/Referral(s): [facility], Psychiatry [Other] - 1 Week (Please follow up with outpatient counceling.) Jacinto Olivares MD [Primary Care Provider] - 04/02/19 2:00 pm Chanel Sun MD [STAFF PHYSICIAN] - 04/09/19 9:30 am (Please bring referral from primary care provider. ) Anne-Marie Talley MD [STAFF PHYSICIAN] - 1 Week (Endocrinology. Left message for office to call you with a follow up appointment. ) Jr Talley MD [STAFF PHYSICIAN] - 04/13/19 11:45 am Patient Instructions/Handouts: Recurrent Seizures in Adults (DC) Discharge Disposition: HOME SELF-CARE
[2019-03-31] MEDS ORDERED: hydrOXYzine PAMOATE 25 MG CAP PO SCH (21:00)
== END 2019-03-31 15:30 | disposition home or self-care (01) | DRG 100 ==
LOC: EC 21:04 → 2SICU 03-25 00:12 → 3SCARD 03-26 23:20
PROVIDERS: ADMIT Family Medicine; ATTEND Family Medicine
PROC: 5A1935Z Respiratory Ventilation, Less than 24 Consecutive Hours (ICD-10-PCS; principal; 2019-03-24)
PROC: 0BH17EZ Insertion of Endotracheal Airway into Trachea, Via Natural or Artificial Opening (ICD-10-PCS; 2019-03-24)
DX: G40.901 Epilepsy, unspecified, not intractable, with status epilepticus (principal); G92 Toxic encephalopathy; J96.01 Acute respiratory failure with hypoxia; F05 Delirium due to known physiological condition; Z68.41 Body mass index [BMI] 40.0-44.9, adult; Z99.11 Dependence on respirator [ventilator] status; E66.01 Morbid (severe) obesity due to excess calories; F32.9 Major depressive disorder, single episode, unspecified; F41.0 Panic disorder [episodic paroxysmal anxiety]; G47.33 Obstructive sleep apnea (adult) (pediatric); I10 Essential (primary) hypertension; K21.9 Gastro-esophageal reflux disease without esophagitis; N80.9 Endometriosis, unspecified; Z79.899 Other long term (current) drug therapy; Z80.0 Family history of malignant neoplasm of digestive organs; Z80.49 Family history of malignant neoplasm of other genital organs; Z82.49 Family history of ischemic heart disease and other diseases of the circulatory system; Z90.710 Acquired absence of both cervix and uterus; Z83.2 Family history of diseases of the blood and blood-forming organs and certain disorders involving the immune mechanism; Z88.5 Allergy status to narcotic agent; Z88.0 Allergy status to penicillin; Z84.1 Family history of disorders of kidney and ureter; R00.0 Tachycardia, unspecified; Z98.84 Bariatric surgery status; D35.2 Benign neoplasm of pituitary gland
CPT/HCPCS: 31500; 36415; 36600; 51702; 70450; 70553; 71045; 71260; 80048; 80053; 80306; 80320; 80329; 81003; 81025; 82140; 82550; 82553; 82805; 83520; 83735; 84100; 84146; 85025; 93005; 94002; 94003; 95816; 96365; 96366; 96375; 96376; 99285

== ENCOUNTER → 2019-04-08 | Outpatient (CLI) | payer BC ==
[2019-04-08 20:38] LABS: T4, Free (Free Thyroxine) 0.9 ng/dL (0.80-1.80)
[2019-04-09 01:27] LABS: ACTH 10.1 pg/mL (0.00-45.99)
== END | disposition home or self-care (01) ==
LOC: LABWHC1 12:14
PROVIDERS: ATTEND Internal Medicine Endocrinology, Diabetes & Metabolism
DX: N64.3 Galactorrhea not associated with childbirth (principal)
CPT/HCPCS: 36415; 82024; 82533; 84146; 84305; 84439; 84443; 84480

== ENCOUNTER → 2019-04-10 | Outpatient (CLI) | payer BC | END | disposition home or self-care (01) | LOC: LABWHC1 11:00 | PROVIDERS: ATTEND Psychiatry & Neurology Neurology | DX: N64.3 Galactorrhea not associated with childbirth (principal); R56.9 Unspecified convulsions | CPT/HCPCS: 36415; 80339; 84305 ==

== ENCOUNTER 2019-04-13 01:47 | Emergency (ER) | payer BC ==
[2019-04-13] MEDS ORDERED: SODIUM CHLORIDE 0.9% 1,000 ML IV STA (02:58)
[2019-04-13] MEDS ORDERED: ONDANSETRON 4 MG/2 ML VIAL IVP STA (02:58)
[2019-04-13] MEDS ORDERED: SODIUM CHLORIDE 0.9% 500 ML 500 ML IV STA (02:58)
--- NOTE | 2019-04-13 03:22 | XR ---
EXAMINATION TYPE: XR KUB DATE OF EXAM: 04/13/2019 COMPARISON: 01/15/2019 HISTORY: Abdominal pain TECHNIQUE: 2 views upright FINDINGS: Bowel gas pattern is normal. There is no sign of intestinal obstruction or pneumoperitoneum . Fecal pattern is normal. There is no evidence of a mass. There are no pathologic calcifications ove r the kidneys. Lung bases are clear. IMPRESSION: Nonacute abdomen. No change.
[2019-04-13 03:36] LABS: ALT 112 U/L (9-52); AST 39 U/L (14-36); African American GFR (CKD) >90 (>60 ml/min/1.73 sqM); Albumin 3.9 g/dL (3.5-5.0); Alkaline Phosphatase 73 U/L (38-126); Amylase 65 U/L (30-110); Anion Gap 9 mmol/L; Blood Urea Nitrogen 21 mg/dL (7-17); Calcium 9.1 mg/dL (8.4-10.2); Carbon Dioxide 26 mmol/L (22-30); Chloride 105 mmol/L (98-107); Glucose 97 mg/dL (74-99); Potassium 4.4 mmol/L (3.5-5.1); Sodium 140 mmol/L (137-145); Total Bilirubin 0.5 mg/dL (0.2-1.3); Total Protein 6.9 g/dL (6.3-8.2)
[2019-04-13] MEDS ORDERED: KETOROLAC 30 MG/ML 1 ML VIAL IVP STA (03:37)
[2019-04-13] MEDS ORDERED: ACETAMINOPHEN TAB 325 MG TAB PO STA (03:37)
[2019-04-13 03:39] LABS: Basophils % (A) 1 %; Eosinophils # (A) 0.3 k/uL (0-0.7); Eosinophils % (A) 5 %; HCT 35.6 % (34.0-46.0); HGB 12.3 gm/dL (11.4-16.0); Lymphocytes # (A) 1.7 k/uL (1.0-4.8); Lymphocytes % (A) 26 %; MCH 30.6 pg (25.0-35.0); MCHC 34.6 g/dL (31.0-37.0); MCV 88.6 fL (80.0-100.0); Mean Platelet Volume 6.7; Monocytes # (A) 0.4 k/uL (0-1.0); Monocytes % (A) 6 %; Neutrophils # (A) 3.8 k/uL (1.3-7.7); Neutrophils % (A) 59 %; Platelet Count 261 k/uL (150-450); RBC 4.01 m/uL (3.80-5.40); WBC 6.3 k/uL (3.8-10.6)
[2019-04-13] MEDS ORDERED: HYDROmorphone 1 MG/ML 1 ML SYRINGE IVP STA (04:11)
[2019-04-13] MEDS ORDERED: ONDANSETRON 4 MG ODT STARTER PACK 2 TAB BTL PO STA (04:11)
--- NOTE | 2019-04-13 04:11 | ED ---
General Adult HPI - General Chief complaint: Nausea/Vomiting/Diarrhea Stated complaint: Syncope Hx Seizure Time Seen by Provider: 04/13/19 02:18 Source: patient, family Mode of arrival: ambulatory Limitations: no limitations - History of Present Illness Initial comments: 28-year-old female patient presents to the emergency department today for evaluation of vomiting and syncope. Patient states she has been vomiting consistently for the last 2 days. Patient states that her muscles in her abdomen are sore from vomiting but she denies any abdominal pain. Denies diarrhea or constipation. Denies any hematochezia, melena, or hematemesis. States this evening she was in the bathroom vomiting when she passed out. Patient states she does have Reglan at home was unable to keep it down. She is also reporting headache with this. She does have a history of migraines. She denies any recent travel or sick contacts. Denies any ingestion of questionable foods. Patient denies any recent rash, shortness breath, chest pain, diarrhea, constipation, back pain, numbness, tingling, dizziness, weakness, hematuria, dysuria, urinary urgency, urinary frequency, headache, visual changes, or any other complaints. - Related Data Home Medications Medication Instructions Recorded Confirmed Metoclopramide HCl [Reglan] 5 mg PO TID 07/30/18 03/24/19 Lacosamide [Vimpat] 100 mg PO BID 02/12/19 03/24/19 Galcanezumab-Gnlm [Emgality 120 mg SQ Q28D 03/19/19 03/24/19 Syringe] Previous Rx's Medication Instructions Recorded Ranitidine HCl [Zantac] 150 mg PO BID #60 tab 01/14/18 Sertraline HCl [Zoloft] 50 mg PO HS #30 tablet 03/31/19 clonazePAM 0.5 mg PO DAILY PRN #0 03/31/19 hydrOXYzine HCL [Atarax] 50 mg PO HS PRN #30 tab 03/31/19 Allergies Allergy/AdvReac Type Severity Reaction Status Date / Time No Known Allergies Allergy Verified 04/13/19 02:00 Review of Systems ROS Statement: Those systems with pertinent positive or pertinent negative responses have been documented in the HPI. ROS Other: All systems not noted in ROS Statement are negative. Past Medical History Past Medical History: GERD/Reflux, Seizure Disorder Additional Past Medical History / Comment(s): last pseudoseizure week & half ago she was then worked up at [facility] and discharged home., placed on atenolol recently for fast heart rate, intermittent vertigo History of Any Multi-Drug Resistant Organisms: None Reported Past Surgical History: Bariatric Surgery, Cholecystectomy, Hysterectomy, Orthopedic Surgery Additional Past Surgical History / Comment(s): LEFT FOOT SX, Right fallopian tube removed; SLEEVE GASTRECTOMY; EGD W DILATION, LAPAROSCOPIC EXAM. 02/12/2019 Robotic Hysterectomy Past Anesthesia/Blood Transfusion Reactions: Motion Sickness, Postoperative Nausea & Vomiting (PONV) Past Psychological History: Panic Disorder Smoking Status: Never smoker Past Alcohol Use History: None Reported Past Drug Use History: None Reported - Past Family History Sister(s) Family Medical History: Cancer, Deep Vein Thrombosis (DVT) Additional Family Medical History / Comment(s): Cervical cancer. Mother Family Medical History: Hyperlipidemia Additional Family Medical History / Comment(s): HEART PROBLEMS, IRREG RYTHM Father Family Medical History: Hyperlipidemia, Hypertension Additional Family Medical History / Comment(s): Paternal grandfather had kidney disorder and colon cancer. General Exam Limitations: no limitations General appearance: alert, in no apparent distress, other (This is a well- developed, well-nourished adult female patient in no acute distress. Vital signs upon presentation are temperature 98.1F, pulse 91, respirations 20, blood pressure 127/84, pulse ox 100% on room air.) Eye exam: Present: normal appearance, PERRL, EOMI. Absent: scleral icterus, conjunctival injection, periorbital swelling ENT exam: Present: normal exam, normal oropharynx, mucous membranes moist Respiratory exam: Present: normal lung sounds bilaterally. Absent: respiratory distress, wheezes, rales, rhonchi, stridor Cardiovascular Exam: Present: regular rate, normal rhythm, normal heart sounds. Absent: systolic murmur, diastolic murmur, rubs, gallop, clicks GI/Abdominal exam: Present: soft, normal bowel sounds. Absent: distended, tend erness, guarding, rebound, rigid Neurological exam: Present: alert, oriented X3, CN II-XII intact Psychiatric exam: Present: normal affect, normal mood Skin exam: Present: warm, dry, intact, normal color. Absent: rash Course Vital Signs 04/13/19 04/13/19 01:56 04:42 Temperature 98.1 F 98 F Pulse Rate 91 82 Respiratory 20 18 Rate Blood Pressure 127/84 108/64 O2 Sat by Pulse 100 98 Oximetry Medical Decision Making - Medical Decision Making 28-year-old female patient presents to the emergency department today for evaluation of vomiting and sick up he. Physical examination is unremarkable. She is neurologically intact with no focal deficits. Abdomen is soft and nontender. Labs reviewed and are unremarkable. Upon reevaluation she does report improvement of nausea but is reporting headache. She given pain medication. She has agreed to be discharged home. She is instructed follow up with her primary care physician for recheck in 1-2 days. Return parameters were discussed in detail. She verbalizes understanding and agrees with this plan. - Lab Data Result diagrams: 04/13/19 03:20 04/13/19 03:20 Lab Results 04/13/19 04/13/19 04/13/19 Range/Units 03:20 03:20 03:57 WBC 6.3 (3.8-10.6) k/uL RBC 4.01 (3.80-5.40) m/uL Hgb 12.3 (11.4-16.0) gm/dL Hct 35.6 (34.0-46.0) % MCV 88.6 (80.0-100.0) fL MCH 30.6 (25.0-35.0) pg MCHC 34.6 (31.0-37.0) g/dL RDW 13.0 (11.5-15.5) % Plt Count 261 (150-450) k/uL Neutrophils % 59 % Lymphocytes % 26 % Monocytes % 6 % Eosinophils % 5 % Basophils % 1 % Neutrophils # 3.8 (1.3-7.7) k/uL Lymphocytes # 1.7 (1.0-4.8) k/uL Monocytes # 0.4 (0-1.0) k/uL Eosinophils # 0.3 (0-0.7) k/uL Basophils # 0.0 (0-0.2) k/uL Sodium 140 (137-145) mmol/L Potassium 4.4 (3.5-5.1) mmol/L Chloride 105 (98-107) mmol/L Carbon Dioxide 26 (22-30) mmol/L Anion Gap 9 mmol/L BUN 21 H (7-17) mg/dL Creatinine 0.81 (0.52-1.04) mg/dL Est GFR (CKD-EPI)AfAm >90 (>60 ml/min/1.73 sqM) Est GFR (CKD-EPI)NonAf >90 (>60 ml/min/1.73 sqM) Glucose 97 (74-99) mg/dL Calcium 9.1 (8.4-10.2) mg/dL Total Bilirubin 0.5 (0.2-1.3) mg/dL AST 39 H (14-36) U/L ALT 112 H (9-52) U/L Alkaline Phosphatase 73 (38-126) U/L Total Protein 6.9 (6.3-8.2) g/dL Albumin 3.9 (3.5-5.0) g/dL Amylase 65 (30-110) U/L Lipase 153 (23-300) U/L Urine Color Light Yellow Urine Appearance Clear (Clear) Urine pH 6.5 (5.0-8.0) Ur Specific [place] 1.011 (1.001-1.035) Urine Protein Negative (Negative) Urine Glucose (UA) Negative (Negative) Urine Ketones Negative (Negative) Urine Blood Negative (Negative) Urine Nitrite Negative (Negative) Urine Bilirubin Negative (Negative) Urine Urobilinogen <2.0 (<2.0) mg/dL Ur Leukocyte Esterase Trace H (Negative) Urine RBC 1 (0-5) /hpf Urine WBC 1 (0-5) /hpf Ur Squamous Epith Cells 1 (0-4) /hpf Urine Mucus Rare H (None) /hpf Disposition Clinical Impression: Vomiting, Syncope Disposition: HOME SELF-CARE Condition: Good Instructions (If sedation given, give patient instructions): Syncope (ED), Acut e Nausea and Vomiting (ED) Additional Instructions: Follow-up through primary care physician for recheck in 1-2 days. Use medications as directed. Return to the emergency department immediately for any new, worsening, or concerning symptoms. Is patient prescribed a controlled substance at d/c from ED?: No Referrals: Jacinto Olivares MD [Primary Care Provider] - 1-2 days Time of Disposition: 04:11
[2019-04-13 04:20] LABS: Appearance,Urine Clear (Clear); Bilirubin,Urine Negative (Negative); Blood,Urine Negative (Negative); Color,Urine Light Yellow; Glucose,Urine (UA) Negative (Negative); Ketones,Urine Negative (Negative); Leukocyte Esterase,Urine Trace (Negative); Mucus,Urine Rare /hpf; Nitrite,Urine Negative (Negative); PH, Urine 6.5 (5.0-8.0); Protein,Urine Negative (Negative); RBC,Urine 1 /hpf (0-5); Specific Gravity,Urine 1.011 (1.001-1.035); Squamous Epithelial Cell,Urine 1 /hpf (0-4); Urobilinogen,Urine <2.0 mg/dL (<2.0); WBC,Urine 1 /hpf (0-5)
[2019-04-13 04:43] VITALS: BP 108/64; PULSE 82; RESP 18; TEMP 98
== END 2019-04-13 04:50 | disposition home or self-care (01) ==
LOC: EC 01:47
DX: R55 Syncope and collapse (principal); R11.2 Nausea with vomiting, unspecified; R51 Headache; G40.909 Epilepsy, unspecified, not intractable, without status epilepticus; Z79.899 Other long term (current) drug therapy; Z98.84 Bariatric surgery status
CPT/HCPCS: 36415; 80053; 82150; 83690; 85025; 81001; 74018; 99284; 96374; 96375 ×2; 96361; J2405; J1885; J1170; S0119

== ENCOUNTER → 2019-04-15 | Outpatient (CLI) | payer BC ==
[2019-04-16 02:52] LABS: ACTH 11.4 pg/mL (0.00-45.99)
== END | disposition home or self-care (01) ==
LOC: LABWHC1 16:40
PROVIDERS: ATTEND Internal Medicine Endocrinology, Diabetes & Metabolism
DX: N64.3 Galactorrhea not associated with childbirth (principal)
CPT/HCPCS: 36415; 82024; 82533; 84146

== ENCOUNTER 2019-04-26 01:21 | Emergency (ER) | payer BC ==
[2019-04-26 01:31] VITALS: TEMP 97.6
[2019-04-26] MEDS ORDERED: LORazepam 2 MG/ML INJ IV STA (01:42)
[2019-04-26] MEDS ORDERED: KETOROLAC 30 MG/ML 1 ML VIAL IVP STA (01:42)
[2019-04-26] MEDS ORDERED: SODIUM CHLORIDE 0.9% 1,000 ML IV STA (01:42)
[2019-04-26] MEDS ORDERED: diphenhydrAMINE 50 MG/ML 1 ML VIAL IVP STA (01:43)
[2019-04-26] MEDS ORDERED: METOCLOPRAMIDE 5 MG/ML 2 ML VIAL IVP STA (01:43)
--- NOTE | 2019-04-26 01:49 | ED ---
General Adult HPI - General Chief complaint: Seizure Stated complaint: seizure Time Seen by Provider: 04/26/19 01:33 Source: patient, family Mode of arrival: ambulatory Limitations: no limitations - History of Present Illness Initial comments: 28-year-old female patient with past medical history significant for seizures presents to the emergency department today reporting tingling to the bilateral hands and feet, headache, and involuntary speech. States that she has been feeling unwell since Saturday. States she does have history of migraine headaches. Denies taking any medication for headache. She states that she has been incontinent of urine 4-5 times today. States that she does not completely empty her bladder, but it is enough to have to change her underwear. States she has been making involuntary noises. States that she has had these symptoms in the past preceding a seizure. She does take Vimpat and has been taking this as directed. She does see Dr. Fallon Sun for neurology. Patient denies any recent rash, shortness breath, chest pain, abdominal pain, nausea, vomiting, diarrhea, constipation, back pain, or any other complaints. - Related Data Home Medications Medication Instructions Recorded Confirmed Metoclopramide HCl [Reglan] 5 mg PO TID 07/30/18 03/24/19 Lacosamide [Vimpat] 100 mg PO BID 02/12/19 03/24/19 Galcanezumab-Gnlm [Emgality 120 mg SQ Q28D 03/19/19 03/24/19 Syringe] Previous Rx's Medication Instructions Recorded Ranitidine HCl [Zantac] 150 mg PO BID #60 tab 01/14/18 Sertraline HCl [Zoloft] 50 mg PO HS #30 tablet 03/31/19 clonazePAM 0.5 mg PO DAILY PRN #0 03/31/19 hydrOXYzine HCL [Atarax] 50 mg PO HS PRN #30 tab 03/31/19 Allergies Allergy/AdvReac Type Severity Reaction Status Date / Time No Known Allergies Allergy Verified 04/26/19 01:31 Review of Systems ROS Statement: Those systems with pertinent positive or pertinent negative responses have been documented in the HPI. ROS Other: All systems not noted in ROS Statement are negative. Past Medical History Past Medical History: GERD/Reflux, Seizure Disorder Additional Past Medical History / Comment(s): last pseudoseizure week & half ago she was then worked up at [facility] and discharged home., placed on atenolol recently for fast heart rate, intermittent vertigo History of Any Multi-Drug Resistant Organisms: None Reported Past Surgical History: Bariatric Surgery, Cholecystectomy, Hysterectomy, Orthopedic Surgery Additional Past Surgical History / Comment(s): LEFT FOOT SX, Right fallopian tube removed; SLEEVE GASTRECTOMY; EGD W DILATION, LAPAROSCOPIC EXAM. 02/12/2019 Robotic Hysterectomy Past Anesthesia/Blood Transfusion Reactions: Motion Sickness, Postoperative Nausea & Vomiting (PONV) Past Psychological History: Panic Disorder Smoking Status: Never smoker Past Alcohol Use History: None Reported Past Drug Use History: None Reported - Past Family History Sister(s) Family Medical History: Cancer, Deep Vein Thrombosis (DVT) Additional Family Medical History / Comment(s): Cervical cancer. Mother Family Medical History: Hyperlipidemia Additional Family Medical History / Comment(s): HEART PROBLEMS, IRREG RYTHM Father Family Medical History: Hyperlipidemia, Hypertension Additional Family Medical History / Comment(s): Paternal grandfather had kidney disorder and colon cancer. General Exam Limitations: no limitations General appearance: alert, in no apparent distress, other (Social well- developed, well-nourished adult female patient in no acute distress. Vital signs upon presentation are temperature 97.6F, pulse 103, respirations 20, blood pressure 126/78, pulse ox 100% on room air) Eye exam: Present: normal appearance, PERRL, EOMI. Absent: scleral icterus, conjunctival injection, periorbital swelling ENT exam: Present: normal exam, normal oropharynx, mucous membranes moist Respiratory exam: Present: normal lung sounds bilaterally. Absent: respiratory distress, wheezes, rales, rhonchi, stridor Cardiovascular Exam: Present: regular rate, normal rhythm, normal heart sounds. Absent: systolic murmur, diastolic murmur, rubs, gallop, clicks GI/Abdominal exam: Present: soft, normal bowel sounds. Absent: distended, tenderness, guarding, rebound, rigid Neurological exam: Present: alert, oriented X3, CN II-XII intact, other (Tremor of the right arm. Involuntary vocal outbursts. ) Psychiatric exam: Present: normal affect, normal mood Skin exam: Present: warm, dry, intact, normal color. Absent: rash Course Vital Signs 04/26/19 01:26 Temperature 97.6 F Pulse Rate 103 H Respiratory 20 Rate Blood Pressure 126/78 O2 Sat by Pulse 100 Oximetry EKG Findings - EKG Comments: EKG Findings:: EKG obtained at 0209 shows normal sinus rhythm with a ventricular rate of 92, AK interval 138, QR spiritism 92, QT 406, QTc 502. No evidence of ST elevation or depression. Medical Decision Making - Medical Decision Making 28-year-old female patient presents to the emergency department today for evaluation of headache, involuntary verbal outbursts, and shaking on the right side. Patient states this is how she feels before she has a seizure. She has been taking her Vimpat. Physical examination is unremarkable. She is neurologically intact with no focal deficits. She does have a history of headaches. She was given IV fluids, medication here in the emergency department. She was given Ativan. She has exhibited no seizure activity. Labs are unremarkable. She'll be discharged home to follow-up with her neurologist and primary care physician on Saturday. She is instructed to return if she exhibits any seizure-like activity or has any worsening symptoms. She verbalizes understanding and agrees this plan. - Lab Data Result diagrams: 04/26/19 02:26 04/26/19 02:26 Lab Results 04/26/19 04/26/19 04/26/19 Range/Units 01:53 01:53 02:26 WBC 10.7 H (3.8-10.6) k/uL RBC 4.89 (3.80-5.40) m/uL Hgb 14.1 (11.4-16.0) gm/dL Hct 45.0 (34.0-46.0) % MCV 92.1 (80.0-100.0) fL MCH 28.9 (25.0-35.0) pg MCHC 31.4 (31.0-37.0) g/dL RDW 13.1 (11.5-15.5) % Plt Count 301 (150-450) k/uL Neutrophils % 78 % Lymphocytes % 14 % Monocytes % 3 % Eosinophils % 3 % Basophils % 1 % Neutrophils # 8.3 H (1.3-7.7) k/uL Lymphocytes # 1.5 (1.0-4.8) k/uL Monocytes # 0.3 (0-1.0) k/uL Eosinophils # 0.3 (0-0.7) k/uL Basophils # 0.1 (0-0.2) k/uL Sodium (137-145) mmol/L Potassium (3.5-5.1) mmol/L Chloride (98-107) mmol/L Carbon Dioxide (22-30) mmol/L Anion Gap mmol/L BUN (7-17) mg/dL Creatinine (0.52-1.04) mg/dL Est GFR (CKD-EPI)AfAm (>60 ml/min/1.73 sqM) Est GFR (CKD-EPI)NonAf (>60 ml/min/1.73 sqM) Glucose (74-99) mg/dL Calcium (8.4-10.2) mg/dL Total Bilirubin (0.2-1.3) mg/dL AST (14-36) U/L ALT (9-52) U/L Alkaline Phosphatase (38-126) U/L Total Protein (6.3-8.2) g/dL Albumin (3.5-5.0) g/dL Urine Color Light Yellow Urine Appearance Cloudy H (Clear) Urine pH 7.0 (5.0-8.0) Ur Specific [place] 1.016 (1.001-1.035) Urine Protein Negative (Negative) Urine Glucose (UA) Negative (Negative) Urine Ketones Negative (Negative) Urine Blood Negative (Negative) Urine Nitrite Negative (Negative) Urine Bilirubin Negative (Negative) Urine Urobilinogen <2.0 (<2.0) mg/dL Ur Leukocyte Esterase Negative (Negative) Ur Squamous Epith Cells 2 (0-4) /hpf Amorphous Sediment Moderate H (None) /hpf Urine HCG, Qual Not Detected (Not Detectd) 04/26/19 Range/Units 02:26 WBC (3.8-10.6) k/uL RBC (3.80-5.40) m/uL Hgb (11.4-16.0) gm/dL Hct (34.0-46.0) % MCV (80.0-100.0) fL MCH (25.0-35.0) pg MCHC (31.0-37.0) g/dL RDW (11.5-15.5) % Plt Count (150-450) k/uL Neutrophils % % Lymphocytes % % Monocytes % % Eosinophils % % Basophils % % Neutrophils # (1.3-7.7) k/uL Lymphocytes # (1.0-4.8) k/uL Monocytes # (0-1.0) k/uL Eosinophils # (0-0.7) k/uL Basophils # (0-0.2) k/uL Sodium 142 (137-145) mmol/L Potassium 4.8 (3.5-5.1) mmol/L Chloride 107 (98-107) mmol/L Carbon Dioxide 20 L (22-30) mmol/L Anion Gap 15 mmol/L BUN 17 (7-17) mg/dL Creatinine 0.87 (0.52-1.04) mg/dL Est GFR (CKD-EPI)AfAm >90 (>60 ml/min/1.73 sqM) Est GFR (CKD-EPI)NonAf 90 (>60 ml/min/1.73 sqM) Glucose 78 (74-99) mg/dL Calcium 9.6 (8.4-10.2) mg/dL Total Bilirubin 0.6 (0.2-1.3) mg/dL AST 38 H (14-36) U/L ALT 25 (9-52) U/L Alkaline Phosphatase 86 (38-126) U/L Total Protein 8.6 H (6.3-8.2) g/dL Albumin 4.9 (3.5-5.0) g/dL Urine Color Urine Appearance (Clear) Urine pH (5.0-8.0) Ur Specific [place] (1.001-1.035) Urine Protein (Negative) Urine Glucose (UA) (Negative) Urine Ketones (Negative) Urine Blood (Negative) Urine Nitrite (Negative) Urine Bilirubin (Negative) Urine Urobilinogen (<2.0) mg/dL Ur Leukocyte Esterase (Negative) Ur Squamous Epith Cells (0-4) /hpf Amorphous Sediment (None) /hpf Urine HCG, Qual (Not Detectd) Disposition Clinical Impression: Headache, Aura Disposition: HOME SELF-CARE Condition: Good Instructions (If sedation given, give patient instructions): Migraine Headache (ED) Additional Instructions: Increase fluids. Rest. Follow up with your neurologist for recheck as soon as possible. Follow up with your primary care physician for recheck in 1-2 days. Return for any new, worsening, or concerning symptoms. Is patient prescribed a controlled substance at d/c from ED?: No Referrals: Jacinto Olivares MD [Primary Care Provider] - 1-2 days Jae Sun MD [STAFF PHYSICIAN] - 1-2 days Time of Disposition: 03:31
[2019-04-26 02:34] LABS: Basophils # (A) 0.1 k/uL (0-0.2); Basophils % (A) 1 %; Eosinophils # (A) 0.3 k/uL (0-0.7); Eosinophils % (A) 3 %; HGB 14.1 gm/dL (11.4-16.0); Lymphocytes # (A) 1.5 k/uL (1.0-4.8); Lymphocytes % (A) 14 %; MCH 28.9 pg (25.0-35.0); MCHC 31.4 g/dL (31.0-37.0); MCV 92.1 fL (80.0-100.0); Mean Platelet Volume 6.6; Monocytes # (A) 0.3 k/uL (0-1.0); Monocytes % (A) 3 %; Neutrophils # (A) 8.3 k/uL (1.3-7.7); Neutrophils % (A) 78 %; Platelet Count 301 k/uL (150-450); RBC 4.89 m/uL (3.80-5.40); RDW 13.1 % (11.5-15.5); WBC 10.7 k/uL (3.8-10.6)
[2019-04-26 02:38] LABS: Amorphous Sediment,Urine Moderate /hpf; Appearance,Urine Cloudy (Clear); Bilirubin,Urine Negative (Negative); Blood,Urine Negative (Negative); Color,Urine Light Yellow; Glucose,Urine (UA) Negative (Negative); Ketones,Urine Negative (Negative); Leukocyte Esterase,Urine Negative (Negative); Nitrite,Urine Negative (Negative); Protein,Urine Negative (Negative); Specific Gravity,Urine 1.016 (1.001-1.035); Squamous Epithelial Cell,Urine 2 /hpf (0-4); Urobilinogen,Urine <2.0 mg/dL (<2.0)
[2019-04-26 02:47] LABS: ALT 25 U/L (9-52); AST 38 U/L (14-36); African American GFR (CKD) >90 (>60 ml/min/1.73 sqM); Albumin 4.9 g/dL (3.5-5.0); Alkaline Phosphatase 86 U/L (38-126); Anion Gap 15 mmol/L; Blood Urea Nitrogen 17 mg/dL (7-17); Calcium 9.6 mg/dL (8.4-10.2); Carbon Dioxide 20 mmol/L (22-30); Chloride 107 mmol/L (98-107); Glucose 78 mg/dL (74-99); Potassium 4.8 mmol/L (3.5-5.1); Sodium 142 mmol/L (137-145); Total Bilirubin 0.6 mg/dL (0.2-1.3); Total Protein 8.6 g/dL (6.3-8.2)
[2019-04-26] MEDS ORDERED: DEXAMETHASONE SOD PHOSPHATE 10 MG/ML 1 ML VIAL IV STA (03:35)
[2019-04-26] MEDS ORDERED: Acetaminophen-Codeine 300-30mg TAB PO STA (03:35)
[2019-04-26 03:56] VITALS: BP 138/84; PULSE 90; RESP 18
== END 2019-04-26 03:56 | disposition home or self-care (01) ==
LOC: EC 01:21
DX: G43.109 Migraine with aura, not intractable, without status migrainosus (principal); G40.909 Epilepsy, unspecified, not intractable, without status epilepticus; Z79.899 Other long term (current) drug therapy; Z98.84 Bariatric surgery status
CPT/HCPCS: 36415; 93005; 80053; 85025; 81001; 81025; 99284; 96374; 96375 ×4; 96361; J2060; J1200; J1100; J2765; J1885

== ENCOUNTER 2019-04-26 11:17 | Emergency (ER) | payer BC ==
--- NOTE | 2019-04-26 12:06 | ED ---
General Adult HPI - General Chief complaint: Neuro Symptoms/Deficit Stated complaint: Shaking, Seeing black spots Time Seen by Provider: 04/26/19 11:32 Source: patient Mode of arrival: wheelchair Limitations: no limitations - History of Present Illness Initial comments: Patient is a 28-year-old female with history of pseudoseizures presenting to the emergency department with a chief complaint of a seizure. Patient reports she was discharged early this morning for having similar symptoms. She reports that symptoms have not resolved and she continues to have the shaking and visual disturbances. Patient reports that she is seen black spots. Patient reports she also bit the side of her tongue. Patient reports shaking of the right hand and occasionally of the left hand. Patient also reports shaking of the right leg while she was at home but has since resolved. Patient reports she took her Vimpat this morning As prescribed. Patient denies any headaches, nausea, vomiting, diarrhea or chest pain or chest tightness. Patient has been evaluated at [facility] for her seizures was diagnosed with pseudoseizures. - Related Data Home Medications Medication Instructions Recorded Confirmed Metoclopramide HCl [Reglan] 5 mg PO BID 07/30/18 04/26/19 Lacosamide [Vimpat] 100 mg PO BID 02/12/19 04/26/19 Galcanezumab-Gnlm [Emgality 120 mg SQ Q28D 03/19/19 04/26/19 Syringe] Atenolol [Tenormin] 25 mg PO BID 04/26/19 04/26/19 HYDROcodone/APAP 5-325MG [[place] 1 tab PO TID PRN 04/26/19 04/26/19 5-325] Zolpidem Tartrate [Ambien Cr] 12.5 mg PO HS 04/26/19 04/26/19 clonazePAM 0.5 mg PO TID PRN 04/26/19 04/26/19 Previous Rx's Medication Instructions Recorded Ranitidine HCl [Zantac] 150 mg PO BID #60 tab 01/14/18 Sertraline HCl [Zoloft] 50 mg PO HS #30 tablet 03/31/19 hydrOXYzine HCL [Atarax] 50 mg PO HS PRN #30 tab 03/31/19 Allergies Allergy/AdvReac Type Severity Reaction Status Date / Time No Known Allergies Allergy Verified 04/26/19 11:30 Review of Systems ROS Statement: Those systems with pertinent positive or pertinent negative responses have been documented in the HPI. ROS Other: All systems not noted in ROS Statement are negative. Past Medical History Past Medical History: GERD/Reflux, Seizure Disorder Additional Past Medical History / Comment(s): last pseudoseizure, tachycardia, intermittent vertigo History of Any Multi-Drug Resistant Organisms: None Reported Past Surgical History: Bariatric Surgery, Cholecystectomy, Hysterectomy, Orthopedic Surgery Additional Past Surgical History / Comment(s): LEFT FOOT SX, Right fallopian tube removed; SLEEVE GASTRECTOMY; EGD W DILATION, LAPAROSCOPIC EXAM. 02/12/2019 Robotic Hysterectomy Past Anesthesia/Blood Transfusion Reactions: Motion Sickness, Postoperative Nausea & Vomiting (PONV) Past Psychological History: Panic Disorder Smoking Status: Never smoker Past Alcohol Use History: None Reported Past Drug Use History: None Reported - Past Family History Sister(s) Family Medical History: Cancer, Deep Vein Thrombosis (DVT) Additional Family Medical History / Comment(s): Cervical cancer. Mother Family Medical History: Hyperlipidemia Additional Family Medical History / Comment(s): HEART PROBLEMS, IRREG RYTHM Father Family Medical History: Hyperlipidemia, Hypertension Additional Family Medical History / Comment(s): Paternal grandfather had kidney disorder and colon cancer. General Exam Limitations: no limitations General appearance: alert, in no apparent distress Head exam: Present: atraumatic, normocephalic, normal inspection Eye exam: Present: normal appearance, PERRL, EOMI. Absent: scleral icterus, conjunctival injection Pupils: Present: normal accommodation ENT exam: Present: normal exam, normal oropharynx (Bilateral tongue bite davila), mucous membranes moist, TM's normal bilaterally, normal external ear exam Neck exam: Present: normal inspection, full ROM Respiratory exam: Present: normal lung sounds bilaterally Cardiovascular Exam: Present: normal rhythm, tachycardia, normal heart sounds Extremities exam: Present: normal inspection, full ROM, normal capillary refill, other (+2 ulnar and radial pulses bilaterally. Repetitive shaking of the right hand that decreases when talking to the patient.) Back exam: Present: normal inspection, full ROM Neurological exam: Present: alert, oriented X3, CN II-XII intact, normal gait, reflexes normal Psychiatric exam: Present: normal affect, normal mood Skin exam: Present: warm, intact, normal color. Absent: rash Course Vital Signs 04/26/19 04/26/1919 11:20 13:23 15:00 Temperature 98.8 F 98.3 F Pulse Rate 120 H 100 91 Respiratory 18 16 16 Rate Blood Pressure 132/64 97/78 112/75 O2 Sat by Pulse 100 100 99 Oximetry Medical Decision Making - Medical Decision Making Patient is a 28-year-old female with history of pseudoseizures is presenting to the emergency department with a chief complaint of seizures. Patient reports she was discharged yesterday from the ED for similar symptoms. Her symptoms have apparently not improved and she continues to have shaking in the right hand. On initial evaluation patient does have tremors in her right hand. Phy sical examination there appears to be bite davila on bilateral tongue sides. CBC, CMP and UA are unremarkable. Patient given Ativan IV and Toradol with only mild improvement in her shaking and headache. On reevaluation patient was given oral Xanax. A secondary evaluation patient reports that there is a decrease in the shaking of the right hand. Patient reports resolution of her visual disturbances. Patient reports the headache continues to persist. Patient given Toradol and Benadryl. Patient reports he feels the pain has almost completely resolved. Patient advised to follow-up with neurology. Strict return parameters were thoroughly discussed the patient was understanding and agreeable. Case discussed physician. - Lab Data Result diagrams: 04/26/19 12:20 04/26/19 12:20 Lab Results 04/26/19 04/26/19 Range/Units 12:20 12:20 WBC 11.0 H (3.8-10.6) k/uL RBC 4.22 (3.80-5.40) m/uL Hgb 12.5 (11.4-16.0) gm/dL Hct 38.3 (34.0-46.0) % MCV 90.8 (80.0-100.0) fL MCH 29.7 (25.0-35.0) pg MCHC 32.7 (31.0-37.0) g/dL RDW 12.8 (11.5-15.5) % Plt Count 290 (150-450) k/uL Neutrophils % 93 % Lymphocytes % 5 % Monocytes % 1 % Eosinophils % 0 % Basophils % 0 % Neutrophils # 10.2 H (1.3-7.7) k/uL Lymphocytes # 0.5 L (1.0-4.8) k/uL Monocytes # 0.2 (0-1.0) k/uL Eosinophils # 0.0 (0-0.7) k/uL Basophils # 0.0 (0-0.2) k/uL Sodium 142 (137-145) mmol/L Potassium 4.3 (3.5-5.1) mmol/L Chloride 113 H (98-107) mmol/L Carbon Dioxide 17 L (22-30) mmol/L Anion Gap 12 mmol/L BUN 13 (7-17) mg/dL Creatinine 0.73 (0.52-1.04) mg/dL Est GFR (CKD-EPI)AfAm >90 (>60 ml/min/1.73 sqM) Est GFR (CKD-EPI)NonAf >90 (>60 ml/min/1.73 sqM) Glucose 128 H (74-99) mg/dL Calcium 8.9 (8.4-10.2) mg/dL Total Bilirubin 0.4 (0.2-1.3) mg/dL AST 21 (14-36) U/L ALT 18 (9-52) U/L Alkaline Phosphatase 76 (38-126) U/L Total Protein 7.1 (6.3-8.2) g/dL Albumin 4.1 (3.5-5.0) g/dL Disposition Clinical Impression: Headache Disposition: HOME SELF-CARE Condition: Stable Instructions (If sedation given, give patient instructions): Recurrent Seizures in Adults (ED) Additional Instructions: Please follow up with neurology. Please return to emergency department if symptoms worsen. Is patient prescribed a controlled substance at d/c from ED?: No Referrals: Jacinto Olivares MD [Primary Care Provider] - 1-2 days Time of Disposition: 14:54
[2019-04-26 12:28] LABS: Basophils % (A) 0 %; Eosinophils % (A) 0 %; HCT 38.3 % (34.0-46.0); HGB 12.5 gm/dL (11.4-16.0); Lymphocytes # (A) 0.5 k/uL (1.0-4.8); Lymphocytes % (A) 5 %; MCH 29.7 pg (25.0-35.0); MCHC 32.7 g/dL (31.0-37.0); MCV 90.8 fL (80.0-100.0); Mean Platelet Volume 6.1; Monocytes # (A) 0.2 k/uL (0-1.0); Monocytes % (A) 1 %; Neutrophils # (A) 10.2 k/uL (1.3-7.7); Neutrophils % (A) 93 %; Platelet Count 290 k/uL (150-450); RBC 4.22 m/uL (3.80-5.40); RDW 12.8 % (11.5-15.5)
[2019-04-26 12:42] LABS: ALT 18 U/L (9-52); AST 21 U/L (14-36); African American GFR (CKD) >90 (>60 ml/min/1.73 sqM); Albumin 4.1 g/dL (3.5-5.0); Alkaline Phosphatase 76 U/L (38-126); Anion Gap 12 mmol/L; Blood Urea Nitrogen 13 mg/dL (7-17); Calcium 8.9 mg/dL (8.4-10.2); Carbon Dioxide 17 mmol/L (22-30); Chloride 113 mmol/L (98-107); Glucose 128 mg/dL (74-99); Potassium 4.3 mmol/L (3.5-5.1); Sodium 142 mmol/L (137-145); Total Bilirubin 0.4 mg/dL (0.2-1.3); Total Protein 7.1 g/dL (6.3-8.2)
[2019-04-26] MEDS ORDERED: KETOROLAC 30 MG/ML 1 ML VIAL IVP STA ×2 (12:49→14:51)
[2019-04-26] MEDS ORDERED: LORazepam 2 MG/ML INJ IV STA (12:58)
[2019-04-26 13:25] VITALS: RESP 16
[2019-04-26] MEDS ORDERED: ALPRAZolam 1 MG TAB PO STA (13:52)
[2019-04-26] MEDS ORDERED: diphenhydrAMINE 50 MG/ML 1 ML VIAL IVP STA (14:50)
[2019-04-26 15:07] VITALS: BP 112/75; PULSE 91; TEMP 98.3
== END 2019-04-26 15:00 | disposition home or self-care (01) ==
LOC: EC 11:17
DX: R51 Headache (principal); G40.909 Epilepsy, unspecified, not intractable, without status epilepticus; Z79.899 Other long term (current) drug therapy; Z98.84 Bariatric surgery status
CPT/HCPCS: 36415; 93005; 80053; 85025; 99284; 96374; 96375 ×2; 96376; J2060; J1200; J1885

== ENCOUNTER 2019-05-04 14:25 | Emergency (ER) | payer BC ==
[2019-05-04 14:54] VITALS: TEMP 98.1
[2019-05-04] MEDS ORDERED: LORazepam 2 MG/ML INJ IM STA (15:07)
[2019-05-04] MEDS ORDERED: SODIUM CHLORIDE 0.9% 1,000 ML IV STA (15:16)
--- NOTE | 2019-05-04 15:36 | ED ---
General Adult HPI - General Chief complaint: Headache Stated complaint: Headache, seeing spots-hx of seizures Time Seen by Provider: 05/04/19 15:14 Source: patient Mode of arrival: ambulatory Limitations: no limitations - History of Present Illness Initial comments: 28-year-old female patient with past medical history significant for migraine headache and pseudoseizures presents to the emergency department today for evaluation of headache and visual disturbance. Patient did begin having seizure while in the waiting room was immediately brought back to a room. is present and provides history states that she has been feeling "slightly off" today. States she is reporting headache and seeing spots in her vision. States her last seizure was on Saturday. She does take Vimpat consistently. Patient did take some pain medication for her headache, but he is unsure what it was. He denies any recent head injury or fall. Denies any vomiting today. States she does not use illicit drugs. - Related Data Home Medications Medication Instructions Recorded Confirmed Metoclopramide HCl [Reglan] 5 mg PO BID 07/30/18 05/04/19 Lacosamide [Vimpat] 100 mg PO BID 02/12/19 05/04/19 Galcanezumab-Gnlm [Emgality 120 mg SQ Q28D 03/19/19 05/04/19 Syringe] Atenolol [Tenormin] 25 mg PO BID 04/26/19 05/04/19 HYDROcodone/APAP 5-325MG [[place] 1 tab PO TID PRN 04/26/19 05/04/19 5-325] Zolpidem Tartrate [Ambien Cr] 12.5 mg PO HS 04/26/19 05/04/19 clonazePAM 0.5 mg PO TID PRN 04/26/19 05/04/19 Previous Rx's Medication Instructions Recorded Ranitidine HCl [Zantac] 150 mg PO BID #60 tab 01/14/18 Sertraline HCl [Zoloft] 50 mg PO HS #30 tablet 03/31/19 hydrOXYzine HCL [Atarax] 50 mg PO HS PRN #30 tab 03/31/19 Allergies Allergy/AdvReac Type Severity Reaction Status Date / Time No Known Allergies Allergy Verified 05/04/19 15:07 Review of Systems ROS Statement: Those systems with pertinent positive or pertinent negative responses have been documented in the HPI. ROS Other: All systems not noted in ROS Statement are negative. Past Medical History Past Medical History: GERD/Reflux, Seizure Disorder Additional Past Medical History / Comment(s): last pseudoseizure, tachycardia, intermittent vertigo History of Any Multi-Drug Resistant Organisms: None Reported Past Surgical History: Bariatric Surgery, Cholecystectomy, Hysterectomy, Orthop edic Surgery Additional Past Surgical History / Comment(s): LEFT FOOT SX, Right fallopian tube removed; SLEEVE GASTRECTOMY; EGD W DILATION, LAPAROSCOPIC EXAM. 02/12/2019 Robotic Hysterectomy Past Anesthesia/Blood Transfusion Reactions: Motion Sickness, Postoperative Nausea & Vomiting (PONV) Past Psychological History: Panic Disorder Smoking Status: Never smoker Past Alcohol Use History: None Reported Past Drug Use History: None Reported - Past Family History Sister(s) Family Medical History: Cancer, Deep Vein Thrombosis (DVT) Additional Family Medical History / Comment(s): Cervical cancer. Mother Family Medical History: Hyperlipidemia Additional Family Medical History / Comment(s): HEART PROBLEMS, IRREG RYTHM Father Family Medical History: Hyperlipidemia, Hypertension Additional Family Medical History / Comment(s): Paternal grandfather had kidney disorder and colon cancer. General Exam Limitations: no limitations General appearance: other (Patient appears to be seizing, there is left arm stiffness, and general leg shaking. ) Eye exam: Present: normal appearance, PERRL, EOMI. Absent: scleral icterus, conjunctival injection, periorbital swelling ENT exam: Present: normal exam, other (Jaw clenched) Neck exam: Present: normal inspection. Absent: tenderness, meningismus, lymphadenopathy Respiratory exam: Present: normal lung sounds bilaterally. Absent: respiratory distress, wheezes, rales, rhonchi, stridor Cardiovascular Exam: Present: regular rate, normal rhythm, normal heart sounds. Absent: systolic murmur, diastolic murmur, rubs, gallop, clicks GI/Abdominal exam: Present: soft, normal bowel sounds. Absent: distended, tenderness, guarding, rebound, rigid Neurological exam: Present: other (Appears to be seizing. Left arm stiffness, bilateral leg shaking. Does adjust left leg for comfort. Does show reaction when face is touched. Not responding to verbal or painful stimuli.). Absent: alert, oriented X3 Skin exam: Present: warm, dry, intact, normal color. Absent: rash Course Vital Signs 05/04/19 05/04/19 05/04/19 14:51 16:00 16:37 Temperature 98.1 F Pulse Rate 75 76 76 Respiratory 18 16 16 Rate Blood Pressure 119/85 115/76 136/71 O2 Sat by Pulse 100 99 99 Oximetry Medical Decision Making - Medical Decision Making 28-year-old female patient percents into the emergency department today for evaluation of headache, visual disturbance. Patient does have history of migraines and has had symptoms similar to this in the past. Upon arrival she did have seizure-like activity. Upon reevaluation patient was exhibiting clenched jaw, left arm stiffness, left leg shaking. She wasnot responding to verbal or painful stimuli however she did react when her face is touched and was adjusting her left leg for comfort. She did receive 2mg IM ativan. Once seizure resolved there were no post-ictal symptoms. She was alert and answering questions appropriately. It is felt that this was most likely pseudoseizure which she has been diagnosed within the past. Labs reviewed and were unremarkable. She'll be given medication for headache and discharged home to follow-up with her neurologist and her primary care physician. Return manuela eters were discussed in detail. She verbalizes understanding and agrees with this plan. - Lab Data Result diagrams: 05/04/19 15:42 05/04/19 15:42 Lab Results 05/04/19 05/04/19 Range/Units 15:42 15:42 WBC 9.1 (3.8-10.6) k/uL RBC 4.13 (3.80-5.40) m/uL Hgb 12.2 (11.4-16.0) gm/dL Hct 37.9 (34.0-46.0) % MCV 91.7 (80.0-100.0) fL MCH 29.6 (25.0-35.0) pg MCHC 32.2 (31.0-37.0) g/dL RDW 13.6 (11.5-15.5) % Plt Count 251 (150-450) k/uL Neutrophils % 66 % Lymphocytes % 22 % Monocytes % 4 % Eosinophils % 4 % Basophils % 1 % Neutrophils # 6.1 (1.3-7.7) k/uL Lymphocytes # 2.0 (1.0-4.8) k/uL Monocytes # 0.4 (0-1.0) k/uL Eosinophils # 0.4 (0-0.7) k/uL Basophils # 0.1 (0-0.2) k/uL Sodium 138 (137-145) mmol/L Potassium 4.4 (3.5-5.1) mmol/L Chloride 107 (98-107) mmol/L Carbon Dioxide 25 (22-30) mmol/L Anion Gap 6 mmol/L BUN 13 (7-17) mg/dL Creatinine 0.71 (0.52-1.04) mg/dL Est GFR (CKD-EPI)AfAm >90 (>60 ml/min/1.73 sqM) Est GFR (CKD-EPI)NonAf >90 (>60 ml/min/1.73 sqM) Glucose 87 (74-99) mg/dL Calcium 8.4 (8.4-10.2) mg/dL Total Bilirubin 0.2 (0.2-1.3) mg/dL AST 21 (14-36) U/L ALT 36 (9-52) U/L Alkaline Phosphatase 64 (38-126) U/L Total Protein 5.8 L (6.3-8.2) g/dL Albumin 3.3 L (3.5-5.0) g/dL - EKG Data -: EKG Interpreted by Me EKG Comments: EKG obtained at 1546 shows normal sinus rhythm with a ventricular rate of 67, KS interval 136, QRS duration 82, QT 408, QTC 431. No evidence of ST elevation or depression. Disposition Clinical Impression: Pseudoseizures, Migraine headache Disposition: HOME SELF-CARE Condition: Good Instructions (If sedation given, give patient instructions): Migraine Headache (ED), Recurrent Seizures in Adults (ED) Additional Instructions: Rest. Increase fluids. Follow-up through primary care physician and your neurologist for further evaluation as soon as possible. Return to the emergency department immediately for any new, worsening, or concerning symptoms. Is patient prescribed a controlled substance at d/c from ED?: No Referrals: Jacinto Olivares MD [Primary Care Provider] - 1-2 days Chemo Sweeney MD [Medical Doctor] - 1-2 days Time of Disposition: 16:55
[2019-05-04 15:59] LABS: Basophils # (A) 0.1 k/uL (0-0.2); Basophils % (A) 1 %; Eosinophils # (A) 0.4 k/uL (0-0.7); Eosinophils % (A) 4 %; HCT 37.9 % (34.0-46.0); HGB 12.2 gm/dL (11.4-16.0); Lymphocytes % (A) 22 %; MCH 29.6 pg (25.0-35.0); MCHC 32.2 g/dL (31.0-37.0); MCV 91.7 fL (80.0-100.0); Mean Platelet Volume 6.5; Monocytes # (A) 0.4 k/uL (0-1.0); Monocytes % (A) 4 %; Neutrophils # (A) 6.1 k/uL (1.3-7.7); Neutrophils % (A) 66 %; Platelet Count 251 k/uL (150-450); RBC 4.13 m/uL (3.80-5.40); RDW 13.6 % (11.5-15.5); WBC 9.1 k/uL (3.8-10.6)
[2019-05-04 16:13] LABS: ALT 36 U/L (9-52); AST 21 U/L (14-36); African American GFR (CKD) >90 (>60 ml/min/1.73 sqM); Albumin 3.3 g/dL (3.5-5.0); Alkaline Phosphatase 64 U/L (38-126); Anion Gap 6 mmol/L; Blood Urea Nitrogen 13 mg/dL (7-17); Calcium 8.4 mg/dL (8.4-10.2); Carbon Dioxide 25 mmol/L (22-30); Chloride 107 mmol/L (98-107); Glucose 87 mg/dL (74-99); Potassium 4.4 mmol/L (3.5-5.1); Sodium 138 mmol/L (137-145); Total Bilirubin 0.2 mg/dL (0.2-1.3); Total Protein 5.8 g/dL (6.3-8.2)
[2019-05-04] MEDS ORDERED: ACETAMINOPHEN TAB 325 MG TAB PO STA (16:22)
[2019-05-04 16:39] VITALS: BP 136/71; PULSE 76; RESP 16
[2019-05-04] MEDS ORDERED: KETOROLAC 30 MG/ML 1 ML VIAL IVP STA (16:54)
[2019-05-04] MEDS ORDERED: METOCLOPRAMIDE 5 MG/ML 2 ML VIAL IVP STA (16:54)
[2019-05-04] MEDS ORDERED: diphenhydrAMINE 50 MG/ML 1 ML VIAL IVP STA (16:54)
== END 2019-05-04 17:16 | disposition home or self-care (01) ==
LOC: EC 14:25
DX: G43.909 Migraine, unspecified, not intractable, without status migrainosus (principal); F44.5 Conversion disorder with seizures or convulsions; K21.9 Gastro-esophageal reflux disease without esophagitis; Z79.899 Other long term (current) drug therapy
CPT/HCPCS: 36415; 93005; 80053; 85025; 99283; 96374; 96375 ×2; 96372; 96361; J2060; J1200; J2765; J1885

== ENCOUNTER → 2019-05-06 | Outpatient (CLI) | payer BC ==
[2019-05-06 13:02] LABS: Appearance,Urine Clear (Clear); Bilirubin,Urine Negative (Negative); Blood,Urine Negative (Negative); Color,Urine Yellow; Glucose,Urine (UA) Negative (Negative); Ketones,Urine Negative (Negative); Leukocyte Esterase,Urine Negative (Negative); Nitrite,Urine Negative (Negative); PH, Urine 6.5 (5.0-8.0); Protein,Urine Negative (Negative); Specific Gravity,Urine 1.014 (1.001-1.035); Urobilinogen,Urine <2.0 mg/dL (<2.0)
== END ==
LOC: LABWHC1 10:53
PROVIDERS: ATTEND Family Medicine
DX: N39.0 Urinary tract infection, site not specified (principal); I10 Essential (primary) hypertension; Z79.899 Other long term (current) drug therapy
CPT/HCPCS: 36415; 81003; 86001; 86003; 87086

== ENCOUNTER 2019-05-09 23:09 | Emergency (ER) | payer BC ==
[2019-05-09 23:23] VITALS: RESP 18; TEMP 98.1
[2019-05-09] MEDS ORDERED: DIAZEPAM 5 MG TAB PO STA (23:41)
[2019-05-09] MEDS ORDERED: HYDROcodone/APAP 5-325MG 1 EACH TAB PO STA (23:41)
[2019-05-10 00:12] VITALS: BP 121/83; PULSE 80
--- NOTE | 2019-05-10 00:40 | ED ---
Seizure HPI - General Chief Complaint: Seizure Stated Complaint: Seizure Time Seen by Provider: 05/09/19 23:27 Source: patient, RN notes reviewed, old records reviewed Mode of arrival: ambulatory Limitations: no limitations - History of Present Illness Initial Comments: This is a 28-year-old female the ER for evaluation patient presents today for evaluation of seizure activity. Patient states she was seizure home. Unwitnessed. Patient states she was having some shaking tremors hand pain and headache after seizure. Patient is had multiple hospital admissions and ER visits for this before. Patient's been taking her seizure medication as prescribed. Denies any fevers. No recent change in medications, no recent change in appetite or diet. Patient has had history of electrode abnormalities. Patient states she's been keeping good diet currently. MD Complaint: possible seizure, shaking -: hour(s) Description of Episode: loss of consciousness (Patient does not remember 5) -: minutes(s) Trauma: Yes Seizure History: known seizure disorder Place: home Possible Precipitating Event: none Associated Symptoms: denies other symptoms Treatments Prior to Arrival: none - Related Data Home Medications Medication Instructions Recorded Confirmed Metoclopramide HCl [Reglan] 5 mg PO BID 07/30/18 05/04/19 Lacosamide [Vimpat] 100 mg PO BID 02/12/19 05/04/19 Galcanezumab-Gnlm [Emgality 120 mg SQ Q28D 03/19/19 05/04/19 Syringe] Atenolol [Tenormin] 25 mg PO BID 04/26/19 05/04/19 HYDROcodone/APAP 5-325MG [[place] 1 tab PO TID PRN 04/26/19 05/04/19 5-325] Zolpidem Tartrate [Ambien Cr] 12.5 mg PO HS 04/26/19 05/04/19 clonazePAM 0.5 mg PO TID PRN 04/26/19 05/04/19 Previous Rx's Medication Instructions Recorded Ranitidine HCl [Zantac] 150 mg PO BID #60 tab 01/14/18 Sertraline HCl [Zoloft] 50 mg PO HS #30 tablet 03/31/19 hydrOXYzine HCL [Atarax] 50 mg PO HS PRN #30 tab 03/31/19 Allergies Allergy/AdvReac Type Severity Reaction Status Date / Time amoxicillin Allergy Unknown Verified 05/09/19 23:23 Review of Systems ROS Statement: Those systems with pertinent positive or pertinent negative responses have been documented in the HPI. ROS Other: All systems not noted in ROS Statement are negative. Past Medical History Past Medical History: GERD/Reflux, Seizure Disorder Additional Past Medical History / Comment(s): last pseudoseizure, tachycardia, intermittent vertigo History of Any Multi-Drug Resistant Organisms: None Reported Past Surgical History: Bariatric Surgery, Cholecystectomy, Hysterectomy, Orthopedic Surgery Additional Past Surgical History / Comment(s): LEFT FOOT SX, Right fallopian tube removed; SLEEVE GASTRECTOMY; EGD W DILATION, LAPAROSCOPIC EXAM. 02/12/2019 Robotic Hysterectomy Past Anesthesia/Blood Transfusion Reactions: Motion Sickness, Postoperative Nausea & Vomiting (PONV) Past Psychological History: Panic Disorder Smoking Status: Never smoker Past Alcohol Use History: None Reported Past Drug Use History: None Reported - Past Family History Sister(s) Family Medical History: Cancer, Deep Vein Thrombosis (DVT) Additional Family Medical History / Comment(s): Cervical cancer. Mother Family Medical History: Hyperlipidemia Additional Family Medical History / Comment(s): HEART PROBLEMS, IRREG RYTHM Father Family Medical History: Hyperlipidemia, Hypertension Additional Family Medical History / Comment(s): Paternal grandfather had kidney disorder and colon cancer. General Exam Limitations: no limitations General appearance: alert, in no apparent distress Head exam: Present: atraumatic, normocephalic, normal inspection Eye exam: Present: normal appearance, PERRL, EOMI. Absent: scleral icterus, conjunctival injection, periorbital swelling ENT exam: Present: normal exam, mucous membranes moist Neck exam: Present: normal inspection. Absent: tenderness, meningismus, lymphadenopathy Respiratory exam: Present: normal lung sounds bilaterally. Absent: respiratory distress, wheezes, rales, rhonchi, stridor Cardiovascular Exam: Present: regular rate, normal rhythm, normal heart sounds. Absent: systolic murmur, diastolic murmur, rubs, gallop, clicks GI/Abdominal exam: Present: soft, normal bowel sounds. Absent: distended, tenderness, guarding, rebound, rigid Extremities exam: Present: normal inspection, full ROM, normal capillary refill. Absent: tenderness, pedal edema, joint swelling, calf tenderness Back exam: Present: normal inspection Neurological exam: Present: alert, oriented X3, CN II-XII intact Psychiatric exam: Present: normal affect, normal mood Skin exam: Present: warm, dry, intact, normal color. Absent: rash Course Vital Signs 05/09/19 05/10/19 23:20 00:11 Temperature 98.1 F Pulse Rate 91 80 Respiratory 18 18 Rate Blood Pressure 111/71 121/83 O2 Sat by Pulse 100 98 Oximetry - Reevaluation(s) Reevaluation #1: 05/10/19 00:45 Medical records reviewed Reevaluation #2: 05/10/19 00:45 Patient without seizure Reevaluation #3: 05/10/19 00:45 Patient pain headache is controlled, no seizure activity Medical Decision Making - Medical Decision Making -year-old female with recurrent seizure-like activity. Unwitnessed. Patient currently without seizure activity. Patient encouraged to continue take seizure medication. Patient's been diagnosed with pseudoseizures, patient continue to follow up with neurology discharged home Disposition Clinical Impression: Generalized seizure, Pseudoseizures Disposition: HOME SELF-CARE Condition: Good Instructions (If sedation given, give patient instructions): Recurrent Seizures in Adults (ED) Is patient prescribed a controlled substance at d/c from ED?: No Referrals: Jacinto Olivares MD [Primary Care Provider] - 1-2 days
[2019-05-10] MEDS ORDERED: HYDROmorphone 1 MG/ML 1 ML SYRINGE IM STA (00:44)
== END 2019-05-10 01:18 | disposition home or self-care (01) ==
LOC: EC 23:09
DX: G40.409 Other generalized epilepsy and epileptic syndromes, not intractable, without status epilepticus (principal); K21.9 Gastro-esophageal reflux disease without esophagitis; F41.0 Panic disorder [episodic paroxysmal anxiety]; Z79.899 Other long term (current) drug therapy; Z88.0 Allergy status to penicillin; Z90.49 Acquired absence of other specified parts of digestive tract; Z98.84 Bariatric surgery status
CPT/HCPCS: 99284; 96372; J1170

== ENCOUNTER 2019-05-11 15:13 | Emergency (ER) | payer BC ==
[2019-05-11] MEDS ORDERED: DIAZEPAM 5 MG/ML 2 ML INJ IVP STA (15:53)
[2019-05-11 16:01] LABS: Basophils % (A) 0 %; Eosinophils # (A) 0.1 k/uL (0-0.7); Eosinophils % (A) 2 %; HGB 13.1 gm/dL (11.4-16.0); Lymphocytes # (A) 1.1 k/uL (1.0-4.8); Lymphocytes % (A) 13 %; MCHC 32.6 g/dL (31.0-37.0); MCV 91.8 fL (80.0-100.0); Mean Platelet Volume 5.7; Monocytes # (A) 0.3 k/uL (0-1.0); Monocytes % (A) 3 %; Neutrophils # (A) 7.2 k/uL (1.3-7.7); Neutrophils % (A) 81 %; Platelet Count 250 k/uL (150-450); RBC 4.36 m/uL (3.80-5.40); RDW 13.1 % (11.5-15.5); WBC 8.9 k/uL (3.8-10.6)
--- NOTE | 2019-05-11 16:02 | ED ---
General Adult HPI - General Chief complaint: Neuro Symptoms/Deficit Stated complaint: poss seizure Time Seen by Provider: 05/11/19 15:39 Source: patient, RN notes reviewed Mode of arrival: ambulatory Limitations: no limitations - History of Present Illness Initial comments: 28-year-old female presents emergency dept chief complaint of shaking, feeling weak. Patient states that she stood up earlier today and felt weak in her knees, legs. Patient states that she fell her children have a seizure but had no seizure. Patient states that comes out states that she is very anxious. Patient states that she just does not feel right. Patient has a history of pseudoseizures. Patient sees Dr. Sweeney. Patient denies any nausea vomiting diarrhea constipation no blurred vision no headache no dizziness. - Related Data Home Medications Medication Instructions Recorded Confirmed Metoclopramide HCl [Reglan] 5 mg PO BID 07/30/18 05/11/19 Lacosamide [Vimpat] 100 mg PO BID 02/12/19 05/11/19 Zolpidem Tartrate [Ambien Cr] 12.5 mg PO HS 04/26/19 05/11/19 Previous Rx's Medication Instructions Recorded Ranitidine HCl [Zantac] 150 mg PO BID #60 tab 01/14/18 Sertraline HCl [Zoloft] 50 mg PO HS #30 tablet 03/31/19 Allergies Allergy/AdvReac Type Severity Reaction Status Date / Time amoxicillin Allergy Unknown Verified 05/11/19 15:48 Review of Systems ROS Statement: Those systems with pertinent positive or pertinent negative responses have been documented in the HPI. ROS Other: All systems not noted in ROS Statement are negative. Past Medical History Past Medical History: GERD/Reflux, Seizure Disorder Additional Past Medical History / Comment(s): last pseudoseizure, tachycardia, intermittent vertigo History of Any Multi-Drug Resistant Organisms: None Reported Past Surgical History: Bariatric Surgery, Cholecystectomy, Hysterectomy, Orthopedic Surgery Additional Past Surgical History / Comment(s): LEFT FOOT SX, Right fallopian tube removed; SLEEVE GASTRECTOMY; EGD W DILATION, LAPAROSCOPIC EXAM. 02/12/2019 Robotic Hysterectomy Past Anesthesia/Blood Transfusion Reactions: Motion Sickness, Postoperative Nausea & Vomiting (PONV) Past Psychological History: Panic Disorder Smoking Status: Never smoker Past Alcohol Use History: None Reported Past Drug Use History: None Reported - Past Family History Sister(s) Family Medical History: Cancer, Deep Vein Thrombosis (DVT) Additional Family Medical History / Comment(s): Cervical cancer. Mother Family Medical History: Hyperlipidemia Additional Family Medical History / Comment(s): HEART PROBLEMS, IRREG RYTHM Father Family Medical History: Hyperlipidemia, Hypertension Additional Family Medical History / Comment(s): Paternal grandfather had kidney disorder and colon cancer. General Exam Limitations: no limitations General appearance: alert, in no apparent distress Head exam: Present: atraumatic, normocephalic, normal inspection Eye exam: Present: normal appearance, PERRL, EOMI. Absent: scleral icterus, conjunctival injection, periorbital swelling ENT exam: Present: normal exam, normal oropharynx, mucous membranes moist Neck exam: Present: normal inspection, full ROM. Absent: tenderness, meningismus, lymphadenopathy Respiratory exam: Present: normal lung sounds bilaterally. Absent: respiratory distress, wheezes, rales, rhonchi, stridor Cardiovascular Exam: Present: regular rate, normal rhythm, normal heart sounds. Absent: systolic murmur, diastolic murmur, rubs, gallop, clicks Neurological exam: Present: alert, oriented X3, CN II-XII intact, reflexes normal, other (Finger to nose intact bilaterally). Absent: motor sensory deficit Skin exam: Present: warm, dry, intact, normal color. Absent: rash Course Vital Signs 05/11/19 15:20 Temperature 98.2 F Pulse Rate 76 Respiratory 18 Rate Blood Pressure 121/72 O2 Sat by Pulse 100 Oximetry EKG Findings - EKG Comments: EKG Findings:: EKG performed at 15:59 normal sinus rhythm rate of 74 CA 152 QRS 82 QT/QTC 400/444 Medical Decision Making - Medical Decision Making I did thoroughly review her medical records and history she's been diagnosed with pseudoseizures she has been seen by neurology here and was clear. Patient's had extensive stay at [facility] with no acute findings. Patient's symptoms today seem to be related to anxiety as she is very anxious about her health issues. There are no focal neurological findings she has a GCS of 15, NIH 0. Patient will be discharged she is advised follow-up with PCP discussed medications for anxiety. - Lab Data Result diagrams: 05/11/19 15:50 05/11/19 15:50 Lab Results 05/11/19 05/11/19 Range/Units 15:50 15:50 WBC 8.9 (3.8-10.6) k/uL RBC 4.36 (3.80-5.40) m/uL Hgb 13.1 (11.4-16.0) gm/dL Hct 40.0 (34.0-46.0) % MCV 91.8 (80.0-100.0) fL MCH 30.0 (25.0-35.0) pg MCHC 32.6 (31.0-37.0) g/dL RDW 13.1 (11.5-15.5) % Plt Count 250 (150-450) k/uL Neutrophils % 81 % Lymphocytes % 13 % Monocytes % 3 % Eosinophils % 2 % Basophils % 0 % Neutrophils # 7.2 (1.3-7.7) k/uL Lymphocytes # 1.1 (1.0-4.8) k/uL Monocytes # 0.3 (0-1.0) k/uL Eosinophils # 0.1 (0-0.7) k/uL Basophils # 0.0 (0-0.2) k/uL Sodium 140 (137-145) mmol/L Potassium 4.8 (3.5-5.1) mmol/L Chloride 108 H (98-107) mmol/L Carbon Dioxide 25 (22-30) mmol/L Anion Gap 7 mmol/L BUN 17 (7-17) mg/dL Creatinine 0.76 (0.52-1.04) mg/dL Est GFR (CKD-EPI)AfAm >90 (>60 ml/min/1.73 sqM) Est GFR (CKD-EPI)NonAf >90 (>60 ml/min/1.73 sqM) Glucose 120 H (74-99) mg/dL Calcium 9.1 (8.4-10.2) mg/dL Total Bilirubin 0.3 (0.2-1.3) mg/dL AST 63 H (14-36) U/L ALT 311 H (9-52) U/L Alkaline Phosphatase 156 H (38-126) U/L Total Protein 6.8 (6.3-8.2) g/dL Albumin 3.8 (3.5-5.0) g/dL Disposition Clinical Impression: Anxiety, Pseudoseizures, Occasional tremors Disposition: HOME SELF-CARE Condition: Stable Instructions (If sedation given, give patient instructions): Anxiety (ED) Additional Instructions: Please return to the Emergency Department if symptoms worsen or any other concerns. Is patient prescribed a controlled substance at d/c from ED?: No Referrals: Jacinto Olivares MD [Primary Care Provider] - 1-2 days Time of Disposition: 16:16
[2019-05-11 16:08] LABS: ALT 311 U/L (9-52); African American GFR (CKD) >90 (>60 ml/min/1.73 sqM); Albumin 3.8 g/dL (3.5-5.0); Alkaline Phosphatase 156 U/L (38-126); Blood Urea Nitrogen 17 mg/dL (7-17); Carbon Dioxide 25 mmol/L (22-30); Glucose 120 mg/dL (74-99); Potassium 4.8 mmol/L (3.5-5.1); Sodium 140 mmol/L (137-145); Total Bilirubin 0.3 mg/dL (0.2-1.3); Total Protein 6.8 g/dL (6.3-8.2)
[2019-05-11 16:09] LABS: AST 63 U/L (14-36); Anion Gap 7 mmol/L; Calcium 9.1 mg/dL (8.4-10.2); Chloride 108 mmol/L (98-107)
[2019-05-11 16:34] VITALS: BP 98/58; PULSE 69; RESP 16; TEMP 98.3
== END 2019-05-11 16:34 | disposition home or self-care (01) ==
LOC: EC 15:13
DX: G40.909 Epilepsy, unspecified, not intractable, without status epilepticus (principal); F41.9 Anxiety disorder, unspecified; Z79.899 Other long term (current) drug therapy; Z88.0 Allergy status to penicillin
CPT/HCPCS: 36415; 93005; 80053; 85025; 99285; 96374; J3360

== ENCOUNTER 2019-05-19 06:41 | Day surgery (SDC) | payer BC ==
[2019-05-15 09:35] VITALS: BMI 36.6
[~2019-05-19 06:41] MED LIST changes: -LIDOCAINE 1% 20 ML VIAL (10MG/ML) FOR IV START INTRADERMA ONE; +LIDOCAINE 1% 20 ML VIAL (10MG/ML) FOR IV START INTRADERMA PRN; -MIDAZOLAM 2 MG/2 ML VIAL IVP ONE; -ONDANSETRON 4 MG/2 ML VIAL IVP ONE; -PROPOFOL 10 MG/ML 20 ML VIAL IV ONE
[2019-05-19] MEDS ORDERED: LACTATED RINGERS 1,000 ML IV ONE (07:03)
[2019-05-19 07:09] VITALS: TEMP 97.4
[2019-05-19] MEDS ORDERED: PROPOFOL 10 MG/ML 20 ML VIAL IV ONE (07:39)
[2019-05-19] MEDS ORDERED: fentaNYL (PF) 50 MCG/ML 2 ML AMP ONE (07:39)
[2019-05-19] MEDS ORDERED: diphenhydrAMINE 50 MG/ML 1 ML VIAL ONE (07:39)
[2019-05-19] MEDS ORDERED: ONDANSETRON 4 MG/2 ML VIAL ONE (07:39)
[2019-05-19] MEDS ORDERED: MIDAZOLAM 2 MG/2 ML VIAL ONE (07:39)
--- NOTE | 2019-05-19 07:50 | P.GSHP ---
History of Present Illness H&P Date: 05/19/19 Chief Complaint: GERD This is a 29-year-old female who presents today for EGD. She's had issues with GERD. Past Medical History Past Medical History: GERD/Reflux, Seizure Disorder Additional Past Medical History / Comment(s): last pseudoseizure, tachycardia, intermittent vertigo History of Any Multi-Drug Resistant Organisms: None Reported Past Surgical History: Bariatric Surgery, Cholecystectomy, Hysterectomy, Orthopedic Surgery Additional Past Surgical History / Comment(s): LEFT FOOT SX, Right fallopian tube removed; SLEEVE GASTRECTOMY; EGD W DILATION, LAPAROSCOPIC EXAM. 02/12/2019 Robotic Hysterectomy Past Anesthesia/Blood Transfusion Reactions: Motion Sickness, Postoperative Nausea & Vomiting (PONV) Smoking Status: Never smoker - Past Family History Sister(s) Family Medical History: Cancer, Deep Vein Thrombosis (DVT) Additional Family Medical History / Comment(s): Cervical cancer. Mother Family Medical History: Hyperlipidemia Additional Family Medical History / Comment(s): HEART PROBLEMS, IRREG RYTHM Father Family Medical History: Hyperlipidemia, Hypertension Additional Family Medical History / Comment(s): Paternal grandfather had kidney disorder and colon cancer. Medications and Allergies Home Medications Medication Instructions Recorded Confirmed Type Ranitidine HCl [Zantac] 150 mg PO BID #60 tab 01/14/18 05/19/19 Rx Metoclopramide HCl [Reglan] 5 mg PO BID 07/30/18 05/19/19 History Lacosamide [Vimpat] 200 mg PO BID 02/12/19 05/19/19 History Sertraline HCl [Zoloft] 50 mg PO DAILY 05/15/19 05/19/19 History Atenolol 05/19/19 History Allergies Allergy/AdvReac Type Severity Reaction Status Date / Time amoxicillin Allergy Unknown Verified 05/19/19 07:10 Surgical - Exam Vital Signs Temp Pulse Resp BP Pulse Ox 97.4 F L 75 14 115/73 98 05/19/19 07:07 05/19/19 07:07 05/19/19 07:07 05/19/19 07:07 05/19/19 07:07 - General well developed, well nourished, no distress - Eyes PERRL - ENT normal pinna - Neck no masses - Respiratory normal expansion - Cardiovascular Rhythm: regular - Abdomen Abdomen: soft, non tender Assessment and Plan Assessment: GERD. We'll perform EGD.
--- NOTE | 2019-05-19 08:01 | P.OP ---
Date of Procedure: 05/19/19 Preoperative Diagnosis: GERD Postoperative Diagnosis: Antral gastritis Procedure(s) Performed: EGD Anesthesia: MAC Surgeon: Cali Jha Pathology: other (Antral gastritis) Condition: stable Disposition: PACU Description of Procedure: The patient's placed on the endoscopy table in the lateral position. She received IV sedation. The gastro-placed oropharynx and passed in the esophagus. The patient had a previous gastric sleeve. This gastric sleeve was widely patent. There is no evidence of any obstruction the sleeve. Scope was placed through the pylorus. The first and second portion of duodenum appeared normal. Scope was then brought back the antrum this appeared mildly inflamed. A biop sies performed. Scope was then brought back through the sleeve. There is no evidence of obstruction or scarring of the sleeve. There is no tortuosity the sleeve. The sleeve appeared to be widely open. The GE junction was at 47 is. There is no evidence of a hiatal hernia. There is no evidence of any esophagitis. The distal esophagus appeared normal. The proximal esophagus appeared normal. Scope was withdrawn for patient.
[2019-05-19 08:07] VITALS: RESP 16
[2019-05-19] MEDS ORDERED: LORazepam 2 MG/ML INJ IV ONE (08:18)
[2019-05-19 08:36] VITALS: BP 98/65; PULSE 66
== END 2019-05-19 08:43 | disposition home or self-care (01) ==
LOC: ORWHC2ENDO 06:41
PROVIDERS: ATTEND Surgery
DX: K21.9 Gastro-esophageal reflux disease without esophagitis (principal); K31.9 Disease of stomach and duodenum, unspecified; K29.70 Gastritis, unspecified, without bleeding; G40.909 Epilepsy, unspecified, not intractable, without status epilepticus; R00.0 Tachycardia, unspecified; F39 Unspecified mood [affective] disorder; Z90.49 Acquired absence of other specified parts of digestive tract; Z90.710 Acquired absence of both cervix and uterus; Z98.84 Bariatric surgery status; Z98.890 Other specified postprocedural states; Z80.49 Family history of malignant neoplasm of other genital organs; Z80.0 Family history of malignant neoplasm of digestive organs; Z79.899 Other long term (current) drug therapy; Z88.0 Allergy status to penicillin; Z82.49 Family history of ischemic heart disease and other diseases of the circulatory system
CPT/HCPCS: 88305; 43239; J2250; J2060; J1200; J2405; J3010; J2704

== ENCOUNTER 2019-05-20 13:11 | Emergency (ER) | payer BC ==
[2019-05-20 13:17] VITALS: RESP 18; TEMP 98.2
[2019-05-20] MEDS ORDERED: KETOROLAC 60 MG/2 ML VIAL IVP STA (14:10)
--- NOTE | 2019-05-20 14:18 | ED ---
General Adult HPI - General Chief complaint: Altered Mental Status Stated complaint: seizure Time Seen by Provider: 05/20/19 13:15 Source: patient, RN notes reviewed Mode of arrival: EMS Limitations: no limitations - History of Present Illness Initial comments: This is a 29-year-old female who presents to the emergency department with a history of pseudoseizures. Patient was having [id number] activity at home no postictal phase per EMS patient was brought into the emergency department now she complains of a mild migraine headache. Patient denies any lightheadedness but states she is dizzy. Patient denies any nausea vomiting patient denies any diarrhea. Patient as any recent fever chills or cough. Patient denies any chest pain palpitations difficulty breathing or shortness of breath. Patient denies any abdominal pain. Patient states she's had a hysterectomy so she couldn't be . Patient denies any dysuria hematuria urinary frequency. I spoke with Dr. Olivares he stated that the patient needs no workup because the patient is having pseudoseizures any she has been seen in the emergency department his office at Dr. Sweeney'radha many times for similar. He states that he will follow her up upon discharge. - Related Data Home Medications Medication Instructions Recorded Confirmed Metoclopramide HCl [Reglan] 5 mg PO BID 07/30/18 05/19/19 Lacosamide [Vimpat] 200 mg PO BID 02/12/19 05/19/19 Sertraline HCl [Zoloft] 50 mg PO DAILY 05/15/19 05/19/19 Atenolol 05/19/19 Previous Rx's Medication Instructions Recorded Ranitidine HCl [Zantac] 150 mg PO BID #60 tab 01/14/18 Allergies Allergy/AdvReac Type Severity Reaction Status Date / Time amoxicillin Allergy Unknown Verified 05/19/19 07:10 Review of Systems ROS Statement: Those systems with pertinent positive or pertinent negative responses have been documented in the HPI. ROS Other: All systems not noted in ROS Statement are negative. Past Medical History Past Medical History: GERD/Reflux, Seizure Disorder Additional Past Medical History / Comment(s): last pseudoseizure, tachycardia, intermittent vertigo History of Any Multi-Drug Resistant Organisms: None Reported Past Surgical History: Bariatric Surgery, Cholecystectomy, Hysterectomy, Orthopedic Surgery Additional Past Surgical History / Comment(s): LEFT FOOT SX, Right fallopian tube removed; SLEEVE GASTRECTOMY; EGD W DILATION, LAPAROSCOPIC EXAM. 02/12/2019 Robotic Hysterectomy Past Anesthesia/Blood Transfusion Reactions: Motion Sickness, Postoperative Nausea & Vomiting (PONV) Past Psychological History: Panic Disorder Smoking Status: Never smoker - Past Family History Sister(s) Family Medical History: Cancer, Deep Vein Thrombosis (DVT) Additional Family Medical History / Comment(s): Cervical cancer. Mother Family Medical History: Hyperlipidemia Additional Family Medical History / Comment(s): HEART PROBLEMS, IRREG RYTHM Father Family Medical History: Hyperlipidemia, Hypertension Additional Family Medical History / Comment(s): Paternal grandfather had kidney disorder and colon cancer. General Exam - General Exam Comments Initial Comments: GENERAL: Patient is well-developed and well-nourished. Patient is nontoxic and well- hydrated and is in no acute distress. ENT: Neck is soft and supple. No significant lymphadenopathy is noted. Oropharynx is clear. Moist mucous membranes. Neck has full range of motion without eliciting any pain. EYES: The sclera were anicteric and conjunctiva were pink and moist. Extraocular movements were intact and pupils were equal round and reactive to light. Eyelids were unremarkable. PULMONARY: Unlabored respirations. Good breath sounds bilaterally. No audible rales rhonchi or wheezing was noted. CARDIOVASCULAR: There is a regular rate and rhythm without any murmurs gallops or rubs. ABDOMEN: Soft and nontender with normal bowel sounds. SKIN: Skin is clear with no lesions or rashes and otherwise unremarkable. NEUROLOGIC: Patient is alert and oriented x3. Cranial nerves II through XII are grossly intact. Motor and sensory are also intact. Normal speech, volume and content. Symmetrical smile. MUSCULOSKELETAL: Normal extremities with adequate strength and full range of motion. LYMPHATICS: No significant lymphadenopathy is noted PSYCHIATRIC: Normal psychiatric evaluation. Limitations: no limitations Course Vital Signs 05/20/19 05/20/19 13:13 14:24 Temperature 98.2 F Pulse Rate 72 89 Respiratory 18 18 Rate Blood Pressure 120/74 119/69 O2 Sat by Pulse 96 100 Oximetry Medical Decision Making - Medical Decision Making I spoke with Dr. Olivares he did not feel so the patient needed any lab work or radiologic studies because the patient's been here many times and worked up many times here in his office and as well with Dr. Sweeney. Dr. Giles and he will follow-up the patient his office and he had seen her already yesterday. Patient was given a Toradol shot for the headache. Disposition Clinical Impression: Pseudoseizure, Headache Disposition: HOME SELF-CARE Condition: Good Instructions (If sedation given, give patient instructions): Acute Headache (ED) Additional Instructions: Patient is to call Dr. Higgins office today and make an appointment. Is patient prescribed a controlled substance at d/c from ED?: No Referrals: Jacinto Olivares MD [Primary Care Provider] - 1-2 days Time of Disposition: 14:34
[2019-05-20] MEDS ORDERED: ONDANSETRON 4 MG/2 ML VIAL IVP STA (15:23)
[2019-05-20 15:26] VITALS: PULSE 72
[2019-05-20 18:28] VITALS: BP 121/72
== END 2019-05-20 15:00 | disposition home or self-care (01) ==
LOC: EC 13:11
DX: G40.909 Epilepsy, unspecified, not intractable, without status epilepticus (principal); R51 Headache; R42 Dizziness and giddiness; R41.82 Altered mental status, unspecified; F41.0 Panic disorder [episodic paroxysmal anxiety]; Z79.899 Other long term (current) drug therapy; Z88.0 Allergy status to penicillin
CPT/HCPCS: 99284; 96374; 96375; J2405; J1885

== ENCOUNTER 2019-06-08 15:16 | Emergency (ER) | payer BC ==
[2019-06-08 15:36] VITALS: TEMP 97.6
[2019-06-08] MEDS ORDERED: ONDANSETRON 4 MG/2 ML VIAL IVP STA (15:57)
[2019-06-08] MEDS ORDERED: PANTOPRAZOLE 40 MG/10 ML VIAL IVP STA (15:57)
[2019-06-08] MEDS ORDERED: SODIUM CHLORIDE 0.9% 1,000 ML IV STA ×2 (15:57)
[2019-06-08] MEDS ORDERED: KETOROLAC 30 MG/ML 1 ML VIAL IVP STA (15:57)
[2019-06-08] MEDS ORDERED: LORazepam 2 MG/ML INJ IV STA (15:58)
[2019-06-08 16:24] LABS: Basophils % (A) 1 %; Eosinophils # (A) 0.3 k/uL (0-0.7); Eosinophils % (A) 5 %; HCT 36.4 % (34.0-46.0); HGB 11.8 gm/dL (11.4-16.0); Lymphocytes # (A) 1.7 k/uL (1.0-4.8); Lymphocytes % (A) 28 %; MCH 29.8 pg (25.0-35.0); MCHC 32.5 g/dL (31.0-37.0); MCV 91.7 fL (80.0-100.0); Mean Platelet Volume 6.3; Monocytes # (A) 0.4 k/uL (0-1.0); Monocytes % (A) 6 %; Neutrophils # (A) 3.6 k/uL (1.3-7.7); Neutrophils % (A) 59 %; Platelet Count 254 k/uL (150-450); RBC 3.97 m/uL (3.80-5.40); RDW 13.5 % (11.5-15.5); WBC 6.2 k/uL (3.8-10.6)
[2019-06-08 16:27] LABS: Appearance,Urine Clear (Clear); Bilirubin,Urine Negative (Negative); Blood,Urine Negative (Negative); Color,Urine Yellow; Glucose,Urine (UA) Negative (Negative); Ketones,Urine Negative (Negative); Leukocyte Esterase,Urine Trace (Negative); Mucus,Urine Rare /hpf; Nitrite,Urine Negative (Negative); Protein,Urine Negative (Negative); RBC,Urine 1 /hpf (0-5); Specific Gravity,Urine 1.021 (1.001-1.035); Squamous Epithelial Cell,Urine 1 /hpf (0-4); WBC,Urine 1 /hpf (0-5)
[2019-06-08 16:34] LABS: ALT 15 U/L (9-52); AST 24 U/L (14-36); African American GFR (CKD) >90 (>60 ml/min/1.73 sqM); Albumin 3.8 g/dL (3.5-5.0); Alkaline Phosphatase 62 U/L (38-126); Amylase 60 U/L (30-110); Anion Gap 6 mmol/L; Blood Urea Nitrogen 16 mg/dL (7-17); Calcium 8.6 mg/dL (8.4-10.2); Carbon Dioxide 26 mmol/L (22-30); Chloride 113 mmol/L (98-107); Glucose 99 mg/dL (74-99); Non-African American GFR(CKD) >90 (>60 ml/min/1.73 sqM); Potassium 4.3 mmol/L (3.5-5.1); Sodium 145 mmol/L (137-145); Total Bilirubin 0.3 mg/dL (0.2-1.3); Total Protein 6.4 g/dL (6.3-8.2)
[2019-06-08 16:39] LABS: INR 0.9 (<1.2); Prothrombin Time 9.5 sec (9.0-12.0)
--- NOTE | 2019-06-08 16:46 | XR ---
EXAMINATION TYPE: XR KUB DATE OF EXAM: 06/08/2019 COMPARISON: 04/13/2019 HISTORY: Burning pain and nausea TECHNIQUE: 2 views upright FINDINGS: There are clips from cholecystectomy. Bowel gas pattern is normal. There is no sign of inte stinal obstruction or pneumoperitoneum. Fecal pattern is normal. Lung bases are clear. There are clip s from tubal ligation. IMPRESSION: Nonacute abdomen. No change.
[2019-06-08 16:54] LABS: Partial Thromboplastin Time 19.9 sec (22.0-30.0)
--- NOTE | 2019-06-08 17:01 | ED ---
Abdominal Pain HPI - General Chief Complaint: Abdominal Pain Stated Complaint: Abd Pain Time Seen by Provider: 06/08/19 15:39 Source: patient, RN notes reviewed, old records reviewed Mode of arrival: ambulatory Limitations: no limitations - History of Present Illness Initial Comments: 29 year old female presents today for evaluation for epigastric pain and one episode of coffee ground emesis. She reports vomiting started one hour ago. She reports she felt unwell yesterday and was seen at [facility]. She denies fevers or chills. Denies any other complains including chest pain, shortness of breath. - Related Data Home Medications Medication Instructions Recorded Confirmed Metoclopramide HCl [Reglan] 5 mg PO BID 07/30/18 06/09/19 Sertraline HCl [Zoloft] 50 mg PO BID 05/15/19 06/09/19 Atenolol 25 mg PO BID 05/19/19 06/09/19 Meclizine [Antivert] 12.5 mg PO BID 05/20/19 06/09/19 Ondansetron [Zofran] 4 mg PO Q6H PRN 05/20/19 06/09/19 HYDROcodone/APAP 5-325MG [[place] 1 tab PO BID PRN 06/09/19 06/09/19 5-325] Ibuprofen [Motrin] 800 mg PO TID PRN 06/09/19 06/09/19 Lacosamide [Vimpat] 200 mg PO BID 06/09/19 06/09/19 clonazePAM [KlonoPIN] 0.5 mg PO BID 06/09/19 06/09/19 Previous Rx's Medication Instructions Recorded Ranitidine HCl [Zantac] 150 mg PO BID #60 tab 01/14/18 Allergies Allergy/AdvReac Type Severity Reaction Status Date / Time amoxicillin Allergy Unknown Verified 06/09/19 11:28 Review of Systems ROS Statement: Those systems with pertinent positive or pertinent negative responses have been documented in the HPI. ROS Other: All systems not noted in ROS Statement are negative. Past Medical History Past Medical History: GERD/Reflux, Seizure Disorder Additional Past Medical History / Comment(s): last pseudoseizure, tachycardia, intermittent vertigo History of Any Multi-Drug Resistant Organisms: None Reported Past Surgical History: Bariatric Surgery, Cholecystectomy, Hysterectomy, Orthopedic Surgery Additional Past Surgical History / Comment(s): LEFT FOOT SX, Right fallopian tube removed; SLEEVE GASTRECTOMY; EGD W DILATION, LAPAROSCOPIC EXAM. 02/12/2019 Robotic Hysterectomy Past Anesthesia/Blood Transfusion Reactions: Motion Sickness, Postoperative Nausea & Vomiting (PONV) Past Psychological History: Panic Disorder Smoking Status: Never smoker Past Alcohol Use History: None Reported Past Drug Use History: None Reported - Past Family History Sister(s) Family Medical History: Cancer, Deep Vein Thrombosis (DVT) Additional Family Medical History / Comment(s): Cervical cancer. Mother Family Medical History: Hyperlipidemia Additional Family Medical History / Comment(s): HEART PROBLEMS, IRREG RYTHM Father Family Medical History: Hyperlipidemia, Hypertension Additional Family Medical History / Comment(s): Paternal grandfather had kidney disorder and colon cancer. General Exam - General Exam Comments Initial Comments: 29 year old female, Anxious. Limitations: no limitations General appearance: alert, in no apparent distress, anxious Head exam: Present: atraumatic, normocephalic, normal inspection Eye exam: Present: normal appearance, PERRL, EOMI. Absent: scleral icterus, conjunctival injection, periorbital swelling ENT exam: Present: normal exam, mucous membranes moist Neck exam: Present: normal inspection. Absent: tenderness, meningismus, l ymphadenopathy Respiratory exam: Present: normal lung sounds bilaterally. Absent: respiratory distress, wheezes, rales, rhonchi, stridor Cardiovascular Exam: Present: regular rate, normal rhythm, normal heart sounds. Absent: systolic murmur, diastolic murmur, rubs, gallop, clicks GI/Abdominal exam: Present: soft, normal bowel sounds. Absent: distended, tenderness, guarding, rebound, rigid Extremities exam: Present: normal inspection, full ROM, normal capillary refill. Absent: tenderness, pedal edema, joint swelling, calf tenderness Back exam: Present: normal inspection Neurological exam: Present: alert, oriented X3, CN II-XII intact Psychiatric exam: Present: normal affect, normal mood Skin exam: Present: warm, dry, intact, normal color. Absent: rash Course Vital Signs 06/08/19 06/08/19 15:35 18:00 Temperature 97.6 F Pulse Rate 123 H 85 Respiratory 26 H 18 Rate Blood Pressure 126/74 120/77 O2 Sat by Pulse 99 100 Oximetry Medical Decision Making - Medical Decision Making 29 year old female, presents with epigastric pain and one episdoe of vomiting. Patient reports it had appearance of coffee ground emesis. She has had no further vomiting in ED. She has history of gastric weight loss surgery. She had Upper GI within the pastmonth and had mild gastritis. Labs are unremarkble. Patient given IV fluids and protonix. Patient advised to follow up with GI spe cialist and return parameters discussed. - Lab Data Result diagrams: 06/08/19 16:12 06/08/19 16:12 Lab Results 06/08/19 06/08/19 06/08/19 Range/Units 16:12 16:12 16:12 WBC 6.2 (3.8-10.6) k/uL RBC 3.97 (3.80-5.40) m/uL Hgb 11.8 (11.4-16.0) gm/dL Hct 36.4 (34.0-46.0) % MCV 91.7 (80.0-100.0) fL MCH 29.8 (25.0-35.0) pg MCHC 32.5 (31.0-37.0) g/dL RDW 13.5 (11.5-15.5) % Plt Count 254 (150-450) k/uL Neutrophils % 59 % Lymphocytes % 28 % Monocytes % 6 % Eosinophils % 5 % Basophils % 1 % Neutrophils # 3.6 (1.3-7.7) k/uL Lymphocytes # 1.7 (1.0-4.8) k/uL Monocytes # 0.4 (0-1.0) k/uL Eosinophils # 0.3 (0-0.7) k/uL Basophils # 0.0 (0-0.2) k/uL PT 9.5 (9.0-12.0) sec INR 0.9 (<1.2) APTT 19.9 L (22.0-30.0) sec Sodium 145 (137-145) mmol/L Potassium 4.3 (3.5-5.1) mmol/L Chloride 113 H (98-107) mmol/L Carbon Dioxide 26 (22-30) mmol/L Anion Gap 6 mmol/L BUN 16 (7-17) mg/dL Creatinine 0.69 (0.52-1.04) mg/dL Est GFR (CKD-EPI)AfAm >90 (>60 ml/min/1.73 sqM) Est GFR (CKD-EPI)NonAf >90 (>60 ml/min/1.73 sqM) Glucose 99 (74-99) mg/dL Calcium 8.6 (8.4-10.2) mg/dL Total Bilirubin 0.3 (0.2-1.3) mg/dL AST 24 (14-36) U/L ALT 15 (9-52) U/L Alkaline Phosphatase 62 (38-126) U/L Troponin I (0.000-0.034) ng/mL Total Protein 6.4 (6.3-8.2) g/dL Albumin 3.8 (3.5-5.0) g/dL Amylase 60 (30-110) U/L Lipase 202 (23-300) U/L Urine Color Urine Appearance (Clear) Urine pH (5.0-8.0) Ur Specific [place] (1.001-1.035) Urine Protein (Negative) Urine Glucose (UA) (Negative) Urine Ketones (Negative) Urine Blood (Negative) Urine Nitrite (Negative) Urine Bilirubin (Negative) Urine Urobilinogen (<2.0) mg/dL Ur Leukocyte Esterase (Negative) Urine RBC (0-5) /hpf Urine WBC (0-5) /hpf Ur Squamous Epith Cells (0-4) /hpf Urine Mucus (None) /hpf 06/08/19 06/08/19 Range/Units 16:12 16:12 WBC (3.8-10.6) k/uL RBC (3.80-5.40) m/uL Hgb (11.4-16.0) gm/dL Hct (34.0-46.0) % MCV (80.0-100.0) fL MCH (25.0-35.0) pg MCHC (31.0-37.0) g/dL RDW (11.5-15.5) % Plt Count (150-450) k/uL Neutrophils % % Lymphocytes % % Monocytes % % Eosinophils % % Basophils % % Neutrophils # (1.3-7.7) k/uL Lymphocytes # (1.0-4.8) k/uL Monocytes # (0-1.0) k/uL Eosinophils # (0-0.7) k/uL Basophils # (0-0.2) k/uL PT (9.0-12.0) sec INR (<1.2) APTT (22.0-30.0) sec Sodium (137-145) mmol/L Potassium (3.5-5.1) mmol/L Chloride (98-107) mmol/L Carbon Dioxide (22-30) mmol/L Anion Gap mmol/L BUN (7-17) mg/dL Creatinine (0.52-1.04) mg/dL Est GFR (CKD-EPI)AfAm (>60 ml/min/1.73 sqM) Est GFR (CKD-EPI)NonAf (>60 ml/min/1.73 sqM) Glucose (74-99) mg/dL Calcium (8.4-10.2) mg/dL Total Bilirubin (0.2-1.3) mg/dL AST (14-36) U/L ALT (9-52) U/L Alkaline Phosphatase (38-126) U/L Troponin I <0.012 (0.000-0.034) ng/mL Total Protein (6.3-8.2) g/dL Albumin (3.5-5.0) g/dL Amylase (30-110) U/L Lipase (23-300) U/L Urine Color Yellow Urine Appearance Clear (Clear) Urine pH 6.0 (5.0-8.0) Ur Specific [place] 1.021 (1.001-1.035) Urine Protein Negative (Negative) Urine Glucose (UA) Negative (Negative) Urine Ketones Negative (Negative) Urine Blood Negative (Negative) Urine Nitrite Negative (Negative) Urine Bilirubin Negative (Negative) Urine Urobilinogen 2.0 (<2.0) mg/dL Ur Leukocyte Esterase Trace H (Negative) Urine RBC 1 (0-5) /hpf Urine WBC 1 (0-5) /hpf Ur Squamous Epith Cells 1 (0-4) /hpf Urine Mucus Rare H (None) /hpf Disposition Clinical Impression: Gastritis Disposition: HOME SELF-CARE Condition: Good Instructions (If sedation given, give patient instructions): Gastritis (ED), Diet for Stomach Ulcers and Gastritis (ED) Additional Instructions: Please use medication as discussed. Please follow up with family doctor if symptoms have not improved over the next two days. Please return to the emergency room if your symptoms increase or worsen or for any other concerns. Is patient prescribed a controlled substance at d/c from ED?: No Referrals: Jacinto Olivares MD [Primary Care Provider] - 1-2 days Time of Disposition: 18:47
[2019-06-08] MEDS ORDERED: MORPHINE SULFATE 4 MG/ML SYRINGE IVP STA (17:53)
[2019-06-08 18:04] VITALS: BP 120/77; PULSE 85; RESP 18
[2019-06-08] MEDS ORDERED: diphenhydrAMINE 50 MG/ML 1 ML VIAL IVP STA (18:48)
[2019-06-08] MEDS ORDERED: METOCLOPRAMIDE 5 MG/ML 2 ML VIAL IVP STA (18:48)
== END 2019-06-08 19:52 | disposition home or self-care (01) ==
LOC: EC 15:16
DX: K29.70 Gastritis, unspecified, without bleeding (principal); K21.9 Gastro-esophageal reflux disease without esophagitis; G40.909 Epilepsy, unspecified, not intractable, without status epilepticus; F41.0 Panic disorder [episodic paroxysmal anxiety]; Z88.0 Allergy status to penicillin; Z79.899 Other long term (current) drug therapy; Z90.49 Acquired absence of other specified parts of digestive tract; Z98.84 Bariatric surgery status; Z80.0 Family history of malignant neoplasm of digestive organs
CPT/HCPCS: 36415; 80053; 82150; 83690; 84484; 85025; 85610; 85730; 81001; 74018; 99284; 96374; 96375 ×6; 96361 ×3; J2060; J2270; J1200; J2765; J2405; J1885; C9113

== ENCOUNTER 2019-06-09 09:31 | Observation (INO) | payer BC ==
[2019-06-09] MEDS ORDERED: PANTOPRAZOLE 40 MG/10 ML VIAL IVP SCH (11:00)
[2019-06-09] MEDS: SODIUM CHLORIDE 0.9% 1,000 ML IV SCH ×2 (11:04→21:01)
[2019-06-09 11:05] LABS: Basophils # (A) 0.1 k/uL (0-0.2); Basophils % (A) 1 %; Eosinophils # (A) 0.2 k/uL (0-0.7); Eosinophils % (A) 4 %; HCT 34.8 % (34.0-46.0); HGB 11.4 gm/dL (11.4-16.0); Lymphocytes % (A) 30 %; MCH 30.3 pg (25.0-35.0); MCHC 32.8 g/dL (31.0-37.0); MCV 92.3 fL (80.0-100.0); Mean Platelet Volume 6.7; Monocytes # (A) 0.3 k/uL (0-1.0); Monocytes % (A) 5 %; Neutrophils # (A) 3.8 k/uL (1.3-7.7); Neutrophils % (A) 59 %; Platelet Count 223 k/uL (150-450); RBC 3.77 m/uL (3.80-5.40); RDW 13.5 % (11.5-15.5); WBC 6.5 k/uL (3.8-10.6)
[2019-06-09] MEDS: HYDROmorphone 0.5 MG/0.5 ML SYRINGE IVP PRN ×4 (11:05→22:09)
[2019-06-09 11:23] LABS: ALT 25 U/L (9-52); AST 23 U/L (14-36); African American GFR (CKD) >90 (>60 ml/min/1.73 sqM); Albumin 3.4 g/dL (3.5-5.0); Alkaline Phosphatase 54 U/L (38-126); Amylase 40 U/L (30-110); Anion Gap 6 mmol/L; Blood Urea Nitrogen 17 mg/dL (7-17); Calcium 8.5 mg/dL (8.4-10.2); Carbon Dioxide 27 mmol/L (22-30); Chloride 110 mmol/L (98-107); Glucose 75 mg/dL (74-99); Magnesium 1.9 mg/dL (1.6-2.3); Non-African American GFR(CKD) >90 (>60 ml/min/1.73 sqM); Potassium 3.9 mmol/L (3.5-5.1); Sodium 143 mmol/L (137-145); Total Bilirubin 0.3 mg/dL (0.2-1.3); Total Protein 5.9 g/dL (6.3-8.2)
[2019-06-09] MEDS ORDERED: LACTATED RINGERS 2,000 ML IV ONE (12:15)
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
--- NOTE | 2019-06-09 16:40 | US ---
EXAMINATION TYPE: US abdomen complete DATE OF EXAM: 06/09/2019 COMPARISON: NONE CLINICAL HISTORY: 29-year-old female abdominal pain, nausea/vomiting. Pain and vomiting. TECHNIQUE: Multiple sonographic images of the abdomen are obtained. FINDINGS: EXAM MEASUREMENTS: Liver Length: 17.3 cm Gallbladder: Surgically absent CBD: .5 cm Spleen: 10.8 cm Right Kidney: 10.2 x 4.5 x 5.1 cm Left Kidney: 10.9 x 5.2 x 4.7 cm Pancreas: Tail obscured by overlying bowel gas Liver: Borderline enlarged. Slight heterogeneity may be on a technical basis. Of the lesion seen. Gallbladder: Surgically absent Evidence for sonographic Lang's sign: No CBD: wnl Spleen: wnl Right Kidney: wnl Left Kidney: wnl Upper IVC: wnl Abd Aorta: wnl IMPRESSION: 1. Borderline hepatomegaly (17.3 cm). Slight heterogeneity of the liver may be undetectable basis or could reflect nonspecific hepatocellular disease. Correlate with LFTs. 2. Status post cholecystectomy. No biliary ductal dilatation.
[2019-06-09] MEDS: PANTOPRAZOLE 40 MG/10 ML VIAL IVP SCH (21:00)
[2019-06-09] MEDS: MECLIZINE 12.5 MG TAB PO SCH (21:01)
[2019-06-09] MEDS: SERTRALINE 50 MG TAB PO SCH (21:01)
[2019-06-09] MEDS: clonazePAM 0.5 MG TAB PO SCH (21:01)
[2019-06-09] MEDS: ATENOLOL 25 MG TAB PO SCH (21:01)
[2019-06-09] MEDS: METOCLOPRAMIDE 5 MG TAB PO SCH (21:01)
[2019-06-10] MEDS: HYDROmorphone 0.5 MG/0.5 ML SYRINGE IVP PRN ×3 (01:30→09:07)
[2019-06-10] MEDS: DICYCLOMINE 20 MG TAB PO PRN (02:04)
[2019-06-10] MEDS: ONDANSETRON 4 MG TAB PO PRN (02:25)
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
[2019-06-10] MEDS: METOCLOPRAMIDE 5 MG TAB PO SCH ×2 (08:44→22:08)
[2019-06-10] MEDS: MECLIZINE 12.5 MG TAB PO SCH ×2 (08:44→22:08)
[2019-06-10] MEDS: SERTRALINE 50 MG TAB PO SCH ×2 (08:44→22:08)
[2019-06-10] MEDS: PANTOPRAZOLE 40 MG/10 ML VIAL IVP SCH ×2 (08:45→21:03)
[2019-06-10] MEDS: clonazePAM 0.5 MG TAB PO SCH ×2 (08:45→22:08)
[2019-06-10] MEDS: ATENOLOL 25 MG TAB PO SCH ×2 (08:45→22:08)
[2019-06-10] MEDS ORDERED: HYDROmorphone 0.5 MG/0.5 ML SYRINGE IVP PRN (09:37)
[2019-06-10] MEDS ORDERED: SODIUM CHLORIDE 0.9% 1,000 ML IV ONE (10:00)
--- NOTE | 2019-06-10 10:04 | P.PN ---
<Macy Walker - Last Filed: 06/10/19 09:57> Subjective Progress Note Date: 06/10/19 CHIEF COMPLAINT: Abdominal pain HISTORY OF PRESENT ILLNESS: Patient examined this morning at the bedside. She continues to report generalized abdominal pain. She is requiring IV Dilaudid to manage her pain. She reports episodes of brown and bilious emesis overnight. She continues to report nausea. She is passing flatus. She reports having a bowel movement yesterday. PHYSICAL EXAM: VITAL SIGNS: Reviewed. GENERAL: Well-developed in no acute distress. HEENT: No sclera icterus. Extraocular movements grossly intact. Moist buccal mucosa. Head is atraumatic, normocephalic. ABDOMEN: Soft. Nondistended. Tenderness with palpation. NEUROLOGIC: Alert and oriented. Cranial nerves II through XII grossly intact. ASSESSMENT: 1. Abdominal pain, nausea 2. History of sleeve gastrectomy 3. Recent EGD, 05/19/2019, revealing gastritis PLAN: 1L 0.9NS bolus Patient may have ice chips and popsicles. If nausea improves, begin clear liquid diet Patient with recent EGD on 05/19/2019 revealing gastritis. No plans for repeat e ndoscopy at this time Continue Protonix Recommend discontinuing Dilaudid May be discharged home when tolerating liquids. Patient to follow up with Dr. Jha outpatient Nurse practitioner note has been reviewed by physician. Signing provider agrees with the documented findings, assessment, and plan of care. Objective - Vital Signs Vital signs: Vital Signs Temp 97.7 F 06/10/19 07:25 Pulse 85 06/10/19 09:06 Resp 18 06/10/19 07:25 BP 141/85 06/10/19 09:06 Pulse Ox 99 06/10/19 07:25 Intake & Output 06/09/19 06/10/19 06/10/19 18:59 06:59 18:59 Weight 100.4 kg Other: Voiding Method Toilet Toilet # Voids 1 1 - Labs CBC & Chem 7: 06/09/19 10:00 06/09/19 10:00 Labs: Abnormal Lab Results - Last 24 Hours (Table) 06/09/19 06/09/19 Range/Units 10:00 10:00 RBC 3.77 L (3.80-5.40) m/uL Chloride 110 H (98-107) mmol/L Total Protein 5.9 L (6.3-8.2) g/dL Albumin 3.4 L (3.5-5.0) g/dL <Aaron Cruz - Last Filed: 06/10/19 19:55> Subjective As above. Patient states she has been dealing with intermittent episodes of regurgitation of vomiting ever since her sleeve gastrectomy. Symptoms seem to be aggravated now and she is not sure why. Recent upper endoscopy performed showing gastritis without obstruction. Continue antiacid therapy. Continue liquid diet. Recommend patient be seen by tertiary care bariatric center ideally [facility] post discharge to discuss conversion to gastric bypass given her ongoing difficulties. Objective - Vital Signs Vital signs: Vital Signs Temp 98.1 F 06/10/19 18:46 Pulse 91 06/10/19 18:46 Resp 18 06/10/19 16:00 BP 113/79 06/10/19 18:46 Pulse Ox 100 06/10/19 18:46 Intake & Output 06/10/19 06/10/19 06/11/19 06:59 18:59 06:59 Intake Total 400 Balance 400 Intake: Intake, IV Titration 400 Amount Sodium Chloride 0.9% 1, 400 000 ml @ 100 mls/hr IV . Q10H [facility] Rx#:[id number] Other: Voiding Method Toilet Toilet # Voids 1 1 - Labs CBC & Chem 7: 06/09/19 10:00 06/09/19 10:00
[2019-06-10] MEDS: HYDROcodone/APAP 5-325MG 1 EACH TAB PO PRN ×3 (13:02→23:30)
[2019-06-10] MEDS ORDERED: HYOSCYAMINE SULFATE 0.125 MG TAB PO PRN (15:18)
[2019-06-10] MEDS: KETOROLAC 30 MG/ML 1 ML VIAL IVP PRN ×2 (16:18→22:13)
[2019-06-10] MEDS: SODIUM CHLORIDE 0.9% 1,000 ML IV SCH ×3 (20:41→23:30)
[2019-06-10] MEDS: SIMETHICONE 80 MG CHEWABLE PO SCH (22:07)
[2019-06-11] MEDS: ONDANSETRON 4 MG TAB PO PRN ×2 (00:28→21:25)
[2019-06-11] MEDS: HYDROcodone/APAP 5-325MG 1 EACH TAB PO PRN ×3 (06:26→18:21)
--- NOTE | 2019-06-11 07:59 | HP ---
HISTORY AND PHYSICAL HISTORY OF PRESENT ILLNESS: A 29-year-old female history of pseudoseizures, gastric sleeve syndrome, gastritis, comes in the hospital with severe 10/10 abdominal pain, nausea, vomiting worse in the epigastric region of her abdomen. States she cannot take the pain. She has severe crying and anxiety. All new pain issues that has never happened before. She has had multiple testing done in the past including gastric surgery, EGD, and was diagnosed with irritable bowel syndrome, but she states this pain is severe pain and she has been in the ER twice in the last 2 days as she cannot take the pain anymore so we admitted her to the hospital. 14-point review of system negative except for mentioned. Anxiety, severe depression, possible pseudoseizures and psychogenic issues. PAST MEDICAL HISTORY: History of GERD, gastric bypass surgery, seizure, and pseudoseizures and vertigo. Possible prolactinoma although nothing was seen on MRI PAST SURGICAL HISTORY: Surgery includes: Bariatric surgery, cholecystectomy, hysterectomy, orthopedic surgery, tendon repairs, abdomen salpingectomies, EGD, dilations. FAMILY HISTORY: Cancer and DVT, hypertension, dyslipidemia, CVA, TIA. Father hypertension and dyslipidemia. MEDICATIONS: Zoloft, Reglan, Zantac, atenolol, Antivert, Zofran, Sabael, Motrin, Vimpat and Klonopin. ALLERGIES: AMOXICILLIN. PHYSICAL EXAMINATION: Temp 97 to 98, heart rate 60s to 70s, respiratory rate is 16 to 18, blood pressure is 120 to 130s over 80s, O2 99-100 percent on room air. Appears comfortable. No acute distress. Head normocephalic, atraumatic. Pupils equal, round, react to light and accommodation. Neck is supple. Heart regular rate and rhythm. Lungs show negative. Abdomen is soft. Extremities: No cyanosis, clubbing or edema. Skin: No rashes, excoriations, bruising. LABS: Are all reviewed. ASSESSMENT: 1. Acute abdominal pain of unclear etiology. Has significant pain 10/10 with nausea, vomiting, chronic abdominal pain. 2. History of irritable bowel syndrome. Will get Gastroenterology and surgical consult. Failed outpatient treatment. She has been ER twice showed to rule out any significant pathology prior to going home. 3. Pseudoseizures. 4. Anxiety, depression. 5. Psychogenic pain, possibly. We will get psych consult. Please see further orders. Continue home medicines. MMODL / IJN: [id number] /
[2019-06-11] MEDS: KETOROLAC 30 MG/ML 1 ML VIAL IVP PRN ×3 (08:14→18:22)
[2019-06-11] MEDS: SUCRALFATE 1 GM TAB PO SCH ×3 (08:15→16:53)
[2019-06-11] MEDS: SIMETHICONE 80 MG CHEWABLE PO SCH ×4 (09:50→21:20)
[2019-06-11] MEDS: PANTOPRAZOLE 40 MG/10 ML VIAL IVP SCH ×2 (09:50→21:20)
[2019-06-11] MEDS: LACOSAMIDE 50 MG TABLET PO SCH ×2 (09:50→21:19)
[2019-06-11] MEDS: clonazePAM 0.5 MG TAB PO SCH ×2 (09:51→21:20)
[2019-06-11] MEDS: ATENOLOL 25 MG TAB PO SCH ×2 (09:51→21:20)
[2019-06-11] MEDS: MECLIZINE 12.5 MG TAB PO SCH ×2 (10:02→21:20)
[2019-06-11] MEDS: SERTRALINE 50 MG TAB PO SCH ×2 (10:02→21:20)
[2019-06-11] MEDS: HYDROmorphone 0.5 MG/0.5 ML SYRINGE IM PRN ×3 (10:02→22:43)
[2019-06-11] MEDS: METOCLOPRAMIDE 5 MG TAB PO SCH ×2 (10:02→21:20)
--- NOTE | 2019-06-11 10:02 | P.PN ---
Subjective Progress Note Date: 06/10/19 Principal diagnosis: Abdominal pain Patient seen lying in bed reporting more nausea and vomiting over night. Still reporting abdominal pain. Objective - Vital Signs Vital signs: Vital Signs Temp 97.7 F 06/10/19 07:25 Pulse 85 06/10/19 09:06 Resp 18 06/10/19 07:25 BP 141/85 06/10/19 09:06 Pulse Ox 99 06/10/19 07:25 Intake & Output 06/09/19 06/10/19 06/10/19 18:59 06:59 18:59 Intake Total 400 Balance 400 Weight 100.4 kg Intake: Intake, IV Titration 400 Amount Sodium Chloride 0.9% 1, 400 000 ml @ 100 mls/hr IV . Q10H [facility] Rx#:[id number] Other: Voiding Method Toilet Toilet Toilet # Voids 1 1 1 - Exam On physical examination, patient appears comfortable in no apparent distress. HEAD: Normocephalic, atraumatic. EYES: No scleral icterus. No conjunctival injection. MOUTH: No lesions, tongue midline. NECK: Trachea midline, no gross abnormalities. ABDOMEN: Soft, obese, mildly tender to palpation. Bowel sounds are positive. No organomegaly. No guarding or rigidity. EXTREMITIES: No pedal edema. SKIN: No rashes, no jaundice. NEUROLOGIC: Alert and oriented x3. No focal deficits. - Labs CBC & Chem 7: 06/09/19 10:00 06/09/19 10:00 Assessment and Plan (1) Abdominal pain Narrative/Plan: 29-year-old female with multiple medical comorbidities including pseudoseizures, prior sleeve gastrectomy, gastritis presenting with acute on chronic abdominal pain, nausea and vomiting. The patient has a long history of similar complaints and has been diagnosed with irritable bowel syndrome in the past. She reports trying numerous medications all which have not helped her symptoms. She denies any change in bowel habits associated with her abdominal pain, nausea and vomiting. Laboratory evaluation including liver enzymes, amylase and lipase all normal. Symptoms may be secondary to a gastroenteritis, functional bowel disorder, with ultrasound ordered to rule out biliary pathology and essentially negative with only findings of steatosis/hepatomegaly. She has a well-establis hed relationship with the surgical service and had a recent EGD on 05/19/2019 which was significant only for gastritis. Current Visit: No Status: Acute Code(s): R10.9 - UNSPECIFIED ABDOMINAL PAIN SNOMED Code(s): 28015672 (2) Chronic abdominal pain Current Visit: No Status: Acute Code(s): R10.9 - UNSPECIFIED ABDOMINAL PAIN; G89.29 - OTHER CHRONIC PAIN SNOMED Code(s): 241405262 Plan: Supportive care Defer endoscopy to the surgical service who have manage the patient in the past Okay for diet as tolerated Continue twice daily PPI therapy Dicyclomine as needed for abdominal pain Continue to monitor symptomatically Ultrasound abdomen ordered an essentially negative except for findings of hepatic steatosis which was explained to the patient and hepatomegaly Agree with psychiatry consultation No further recommendations at this time, okay for discharge from GI standpoint Thank you for allowing us to participate in the care of the patient
--- NOTE | 2019-06-11 12:12 | P.PN ---
Subjective Progress Note Date: 06/11/19 Principal diagnosis: Intractable vomiting Patient said she had additional reflux and vomiting. Still having mild pain. Scheduled for esophagram tomorrow. Objective - Vital Signs Vital signs: Vital Signs Temp 97.9 F 06/11/19 08:45 Pulse 66 06/11/19 08:45 Resp 14 06/11/19 08:45 BP 114/67 06/11/19 08:45 Pulse Ox 98 06/11/19 08:45 Intake & Output 06/10/19 06/11/19 06/11/19 18:59 06:59 18:59 Intake Total 400 Balance 400 Intake: Intake, IV Titration 400 Amount Sodium Chloride 0.9% 1, 400 000 ml @ 100 mls/hr IV . Q10H [facility] Rx#:[id number] Other: Voiding Method Toilet Toilet Toilet # Voids 1 1 1 - Exam Abdomen: Soft, nontender, nondistended - Labs CBC & Chem 7: 06/09/19 10:00 06/09/19 10:00 Assessment and Plan (1) Intractable nausea and vomiting Narrative/Plan: Continue liquids. Await esophagram findings. Outpatient tertiary care referral advised. Current Visit: No Status: Acute Code(s): R11.2 - NAUSEA WITH VOMITING, UNSPECIFIED SNOMED Code(s): 459750367
[2019-06-11] MEDS: SODIUM CHLORIDE 0.9% 1,000 ML IV SCH ×2 (12:36→23:52)
[2019-06-11] MEDS: ZOLPIDEM 5 MG TAB PO PRN (22:44)
[2019-06-12] MEDS: KETOROLAC 30 MG/ML 1 ML VIAL IVP PRN ×4 (01:10→21:25)
[2019-06-12] MEDS: HYDROcodone/APAP 5-325MG 1 EACH TAB PO PRN ×4 (01:11→21:25)
--- NOTE | 2019-06-12 02:31 | PN ---
PROGRESS NOTE SUBJECTIVE: 29-year-old white female with progressive nausea, vomiting, ordered a barium swallow with follow-through. She is complaining of migraines due to vomiting. She wants Dilaudid shots which we will start low-dose, Toradol is not effective. Continues on Levsin p.r.n. for abdominal cramping. Await GI and surgical recommendations. CARDIOVASCULAR: S1, S2. Lungs clear. GI is increased bowel sounds x4. Distended, obesity. Hematology negative Homans. ASSESSMENT AND PLAN: 1. Acute gastritis, gastroenteritis, possible bowel obstruction, gastroparesis, chronic GERD. 2. Barium swallow is being ordered. 3. Continue next 24-48 hours. 4. Please see orders and changes as mentioned above. MMODL / IJN: [id number] /
[2019-06-12] MEDS: SODIUM CHLORIDE 0.9% 1,000 ML IV SCH ×2 (08:19→19:05)
[2019-06-12] MEDS: PANTOPRAZOLE 40 MG/10 ML VIAL IVP SCH ×2 (08:19→21:25)
[2019-06-12] MEDS: LACOSAMIDE 50 MG TABLET PO SCH ×2 (08:22→21:26)
[2019-06-12] MEDS: clonazePAM 0.5 MG TAB PO SCH ×2 (08:23→21:25)
[2019-06-12] MEDS: HYDROmorphone 0.5 MG/0.5 ML SYRINGE IM PRN (10:30)
--- NOTE | 2019-06-12 10:48 | P.PN ---
<Macy Walker - Last Filed: 06/12/19 10:42> Subjective Progress Note Date: 06/12/19 CHIEF COMPLAINT: Abdominal pain HISTORY OF PRESENT ILLNESS: Patient examined this morning at the bedside with Dr. Cruz. She reports two episodes of emesis overnight. She continues to report mild abdominal pain. PHYSICAL EXAM: VITAL SIGNS: Reviewed. GENERAL: Well-developed in no acute distress. HEENT: No sclera icterus. Extraocular movements grossly intact. Moist buccal mucosa. Head is atraumatic, normocephalic. ABDOMEN: Soft. Nondistended. Nontender. NEUROLOGIC: Alert and oriented. Cranial nerves II through XII grossly intact. ASSESSMENT: 1. Abdominal pain, nausea 2. History of sleeve gastrectomy 3. Recent EGD, 05/19/2019, revealing gastritis PLAN: Dr. Cruz reviewed UGI with radiology. No delay or obstruction visualized Continue Protonix Continue clear liquids as tolerated Outpatient tertiary care evaluation recommended by Dr. Cruz Nurse practitioner note has been reviewed by physician. Signing provider agrees with the documented findings, assessment, and plan of care. Objective - Vital Signs Vital signs: Vital Signs Temp 98.2 F 06/12/19 04:50 Pulse 63 06/12/19 04:50 Resp 20 06/12/19 04:50 BP 110/72 06/12/19 04:50 Pulse Ox 99 06/12/19 04:50 Intake & Output 06/11/19 06/12/19 06/12/19 18:59 06:59 18:59 Intake Total 320 Balance 320 Intake: Oral 320 Other: Voiding Method Toilet Toilet # Voids 1 1 - Labs CBC & Chem 7: 06/09/19 10:00 06/09/19 10:00 <Aaron Cruz - Last Filed: 06/12/19 12:56> Subjective As above. Upper GI earlier today showed no evidence of obstruction per radiologist. Continue diet. Discharge when patient tolerating adequate oral intake. Objective - Vital Signs Vital signs: Vital Signs Temp 98.2 F 06/12/19 04:50 Pulse 63 06/12/19 04:50 Resp 20 06/12/19 04:50 BP 110/72 06/12/19 04:50 Pulse Ox 99 06/12/19 04:50 Intake & Output 06/11/19 06/12/19 06/12/19 18:59 06:59 18:59 Intake Total 320 Balance 320 Intake: Oral 320 Other: Voiding Method Toilet Toilet # Voids 1 1 - Labs CBC & Chem 7: 06/09/19 10:00 06/09/19 10:00 Assessment and Plan (1) Intractable nausea and vomiting Current Visit: No Status: Acute Code(s): R11.2 - NAUSEA WITH VOMITING, UNSPECIFIED SNOMED Code(s): 038497322
[2019-06-12] MEDS: SERTRALINE 50 MG TAB PO SCH ×2 (11:18→21:26)
[2019-06-12] MEDS: SIMETHICONE 80 MG CHEWABLE PO SCH ×4 (11:18→21:25)
[2019-06-12] MEDS: MECLIZINE 12.5 MG TAB PO SCH ×2 (11:18→21:25)
[2019-06-12] MEDS: METOCLOPRAMIDE 5 MG TAB PO SCH ×2 (11:18→21:25)
[2019-06-12] MEDS: ATENOLOL 25 MG TAB PO SCH ×2 (11:19→21:25)
[2019-06-12] MEDS: SUCRALFATE 1 GM TAB PO SCH ×3 (11:19→17:45)
--- NOTE | 2019-06-12 11:45 | P.CN ---
Psychiatric Consult - . Consult date: 06/12/19 Consult:: IDENTIFYING DATA: The patient is a 29-year-old female admitted to medicine for treatment of abdominal pain, nausea and and vomiting. Her history is significant for multiple gastrointestinal complaints and problems as well as a diagnosis of pseudoseizures. The hospitalist submitted a consult for evaluation of psychotropic pain and anxiety. HISTORY OF PRESENT ILLNESS: I reviewed the medical record and interviewed the patient. She was distressed that she had to remain in the hospital over Thanks holiday. She commented that this is the first Thanksgiving that she has not been with her family. She talked about her multiple abdominal complaints that she alleged developed after she had gastric sleeve surgery. She denied persistent and disabling anxiety that interferes with her ability to work or enjoy herself. She denied experiencing periods of increased anxiety consistent with panic attack. She denied obsessions or compulsions. She denied experiencing such psychotic symptoms as hallucinations, delusions or thought disturbances. She denied feeling persistently depressed. She complained of difficulty falling and staying asleep since her bariatric surgery. She states that she is able to enjoy herself with family and friends. She denied feeling hopeless, helpless or worthless. She denied having suicidal thoughts or wishes. She developed pseudoseizures years in August of this year. She has had multiple was neurological evaluation and her neurologist referred her to a psychologist. She met with the psychologist, Dr. Michaels, the week prior to this admission. Apparently the neurologist explained to her that her seizures are not actual seizures but related to her psychological distress. She stated that she plans to work with Dr. Michaels to improve her skills and coping with stress and stressful situations. PAST PSYCHIATRIC HISTORY: She denied prior psychiatric hospitalizations. She denied contact with mental health professional prior to her initial meeting with Dr. Michaels. Her primary care provider has prescribed her psychotropic medications for anxiety and depression including clonazepam, sertraline and Ambien.. PAST MEDICAL HISTORY: She has a cupcake medical history with multiple hospitalizations, multiple gastrointestinal assessments and multiple neurological assessments. She has history of GERD/reflux, pseudoseizure disorder, she underwent bariatric surgery and had a hysterectomy earlier this year. ALLERGIES: Amoxicillin. SUBSTANCE USE HISTORY: She does not drink denied the use of drugs to get high, help her sleep or change her mood.. FAMILY PSYCHIATRIC/SUBSTANCE USE HISTORY: She described a family history of alcohol and drug use problems. Her father and grandfather had history of alcohol use problems. She had a cousin who overdosed on methamphetamine. SOCIAL HISTORY: She was born and raised in [place] to an intact family. She graduated from high school and attended community college briefly. 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 She is for 10 years. They do not have children. She had her live with her grandmother and her grandmother's home. She denied history of physical, sexual or emotional abuse MENTAL STATUS EXAM:. She presented as a moderately obese young female who was pleasant on approach. She was sitting comfortably in her hospital bed dressed in hospital gown. She made eye contact and attended to the interview. She had no distinguishing features or prominent physical abnormalities. She had a bright facial expression. She is alert and oriented to person, place and time. She did not demonstrate psychomotor retardation or agitation. Her gait was slow but stable and steady. Her speech was spontaneous with normal rate, rhythm and volume. She had no articulation difficulties. Her affect was blunted but bright, stable and appropriate. She denied suicidal ideation, homicidal homicidal ideation or wishes. She did not express ideas r eference, paranoid ideation or delusions. Her thinking was abstract and associations were coherent, logical and goal directed. She denied hallucinations and did not appear to be responding to internal internal stimuli. IMPRESSIONS: She is a 29-year-old female with multiple medical problems. She admitted to medicine service for reevaluation of abdominal distress, nausea and vomiting. Her history is significant for pseudoseizures which she has been referred for individual therapy. She has chronic symptoms of anxiety for which she's been treated with, patient clonazepam, sertraline and Ambien. I am unable to determine whether or abdominal pain complaints this time are conversion symptoms or related to stress. 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 There is no indication for additional outpatient mental health services. She should continue with individual therapy with the psychologist after discharge. Thank you for the consult.. 06/12/19 11:29
--- NOTE | 2019-06-12 12:00 | FL ---
EXAMINATION TYPE: FL barium swallow w SBFT DATE OF EXAM: 06/12/2019 CLINICAL HISTORY: Emesis COMPARISON: 10/01/2016 Contrast: EZ paque barium. 1 min 10 sec fl The patient ingested contrast without difficulty or delay. Noted are postsurgical changes of gastric sleeve. There is no evidence for leak or obstruction. Contrast is noted within the duodenum signi ficant delay. Small bowel follow-through was subsequently performed with a normal transit time of 1 hour 50 minutes . Small bowel loops are of normal caliber and demonstrate normal mucosal wall pattern. No intrinsic o r extrinsic mass effects are seen. Terminal ileum has a normal appearance. IMPRESSION: 1. Gastric sleeve without evidence for structural change at this time. 2. Unremarkable small bowel follow-through
[2019-06-12] MEDS: ONDANSETRON 4 MG TAB PO PRN (17:47)
[2019-06-12] MEDS: DICYCLOMINE 20 MG TAB PO PRN (19:21)
[2019-06-12] MEDS: ZOLPIDEM 5 MG TAB PO PRN (21:25)
[2019-06-12 22:17] VITALS: TEMP 97.7
--- NOTE | 2019-06-12 22:48 | PN ---
PROGRESS NOTE SUBJECTIVE: Ebegyh[age]mat-[age]-old white female had an upper barium swallow which was normal. Dilaudid shots were stopped. We are going to give her treatment for acute gastritis, migraines, dehydration, and she will go home on clear liquids tomorrow. Continue with irritable bowel syndrome medications and follow up in next 24-48 hours for possible discharge. MMODL / IJN: [id number] /
[2019-06-13] MEDS: SODIUM CHLORIDE 0.9% 1,000 ML IV SCH (05:13)
[2019-06-13 05:20] VITALS: BP 91/55; PULSE 69; RESP 12
[2019-06-13] MEDS: PANTOPRAZOLE 40 MG/10 ML VIAL IVP SCH (07:55)
[2019-06-13] MEDS: LACOSAMIDE 50 MG TABLET PO SCH (07:55)
[2019-06-13] MEDS: SUCRALFATE 1 GM TAB PO SCH (07:55)
[2019-06-13] MEDS: clonazePAM 0.5 MG TAB PO SCH (07:55)
[2019-06-13] MEDS: ATENOLOL 25 MG TAB PO SCH (07:55)
[2019-06-13] MEDS: SERTRALINE 50 MG TAB PO SCH (07:55)
[2019-06-13] MEDS: KETOROLAC 30 MG/ML 1 ML VIAL IVP PRN (07:59)
[2019-06-13] MEDS: HYDROcodone/APAP 5-325MG 1 EACH TAB PO PRN (07:59)
[2019-06-13] MEDS: MECLIZINE 12.5 MG TAB PO SCH (09:11)
[2019-06-13] MEDS: SIMETHICONE 80 MG CHEWABLE PO SCH (09:12)
[2019-06-13] MEDS: METOCLOPRAMIDE 5 MG TAB PO SCH (09:12)
--- NOTE | 2019-06-13 10:10 | P.PN ---
Subjective Progress Note Date: 06/13/19 Principal diagnosis: Intractable vomiting Patient doing better today. Tolerating liquids. Pain is improved. She would like to go home. Yesterday's upper GI small bowel series shows no evidence of obstruction. Objective - Vital Signs Vital signs: Vital Signs Temp 97.7 F 06/13/19 05:19 Pulse 69 06/13/19 05:19 Resp 12 06/13/19 05:19 BP 91/55 06/13/19 05:19 Pulse Ox 96 06/13/19 05:19 Intake & Output 06/12/19 06/13/19 06/13/19 18:59 06:59 18:59 Intake Total 840 Balance 840 Intake: Oral 840 Other: Voiding Method Toilet # Voids 1 3 # Bowel Movements 1 - Exam Abdomen: Soft, nontender, nondistended - Labs CBC & Chem 7: 06/09/19 10:00 06/09/19 10:00 Assessment and Plan (1) Intractable nausea and vomiting Narrative/Plan: Continue full liquids. Gradually advance post discharge. Follow-up in the bariatric center. Current Visit: No Status: Acute Code(s): R11.2 - NAUSEA WITH VOMITING, UNSPECIFIED SNOMED Code(s): 094613538
--- NOTE | 2019-06-19 11:06 | DS ---
DISCHARGE SUMMARY DATE OF ADMISSION: 06/10/2019 DATE OF DISCHARGE: 06/13/2019 DISCHARGE MEDICATIONS: 1. Zantac 150 b.i.d. 2. Reglan 5 mg b.i.d. 3. Zoloft 50 mg b.i.d. 4. Atenolol 25 b.i.d. 5. Zofran 4 mg q.6 hours p.r.n. 6. Meclizine 12.5 b.i.d. 7. Vimpat 200 mg b.i.d. 8. Klonopin 0.5 b.i.d. 9. [place] b.i.d. 10.Motrin 800 t.i.d. CONDITION: Stable. PROGNOSIS: Guarded. Ambulate as tolerated. DISCHARGE DIAGNOSES: 1. seizures. 2. Migraines. 3. Anxiety, depression. 4. Progressive emesis with dehydration. She had upper GI and small-bowel follow-through, which was normal. Cleared by Surgery, who recommend a Patrick-en-Y procedure as an outpatient and Psych cleared for discharge. She will follow up as an outpatient. There is no evidence of any obstruction. Discussed case with surgeon who says she has gained 30 pounds in the last 1 year or so. She is not having serious weight loss. She will continue with clear liquid diet. Follow up in the Bariatric Center. MMODL / IJN: [id number] /
== END 2019-06-13 10:32 | disposition home or self-care (01) ==
LOC: UNDOADMOB 09:37 → 1SOBS 09:37 → INTOOBSV 06-10 09:40 → OBSVTOIN 06-10 09:40 → 1SOBS 06-11 11:07 → 4MS4W 06-11 11:07 → UNDODISIN 06-13 10:32
PROVIDERS: ADMIT Family Medicine; ATTEND Family Medicine
DX: K29.00 Acute gastritis without bleeding (principal); F44.5 Conversion disorder with seizures or convulsions; E86.0 Dehydration; G89.29 Other chronic pain; K58.9 Irritable bowel syndrome, unspecified; K21.9 Gastro-esophageal reflux disease without esophagitis; F32.9 Major depressive disorder, single episode, unspecified; F41.9 Anxiety disorder, unspecified; E66.9 Obesity, unspecified; G43.909 Migraine, unspecified, not intractable, without status migrainosus; Z68.39 Body mass index [BMI] 39.0-39.9, adult; G47.00 Insomnia, unspecified; Z79.899 Other long term (current) drug therapy; Z90.49 Acquired absence of other specified parts of digestive tract; Z98.84 Bariatric surgery status; Z90.710 Acquired absence of both cervix and uterus; Z90.79 Acquired absence of other genital organ(s); Z98.890 Other specified postprocedural states; Z88.0 Allergy status to penicillin; Z82.49 Family history of ischemic heart disease and other diseases of the circulatory system; Z83.2 Family history of diseases of the blood and blood-forming organs and certain disorders involving the immune mechanism; Z82.3 Family history of stroke; Z80.49 Family history of malignant neoplasm of other genital organs; Z81.1 Family history of alcohol abuse and dependence; Z81.4 Family history of other substance abuse and dependence
CPT/HCPCS: 96376 ×6; 96361 ×2; 96372 ×3; 96374; 96375 ×2; 80053; 82150; 83690; 83735; 85025; 74245; 76700; G0378 ×6; G0379; J1885 ×4; C9113 ×5; J1170 ×4

== ENCOUNTER 2019-06-14 18:44 | Emergency (ER) | payer BC ==
[2019-06-14 18:50] VITALS: RESP 18
[2019-06-14] MEDS ORDERED: METOCLOPRAMIDE 5 MG/ML 2 ML VIAL IVP STA (19:07)
[2019-06-14] MEDS ORDERED: SODIUM CHLORIDE 0.9% 2,000 ML IV STA (19:07)
[2019-06-14] MEDS ORDERED: SODIUM CHLORIDE 0.9% 1,000 ML IV STA (19:07)
[2019-06-14] MEDS ORDERED: diphenhydrAMINE 50 MG/ML 1 ML VIAL IVP STA (19:07)
[2019-06-14] MEDS ORDERED: PANTOPRAZOLE 40 MG/10 ML VIAL IVP STA (19:08)
[2019-06-14] MEDS ORDERED: KETOROLAC 30 MG/ML 1 ML VIAL IVP STA (19:08)
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
[2019-06-14 19:21] LABS: Basophils % (A) 0 %; Eosinophils # (A) 0.3 k/uL (0-0.7); Eosinophils % (A) 6 %; HCT 37.2 % (34.0-46.0); HGB 12.3 gm/dL (11.4-16.0); Lymphocytes # (A) 1.5 k/uL (1.0-4.8); Lymphocytes % (A) 29 %; MCH 30.1 pg (25.0-35.0); MCHC 33.2 g/dL (31.0-37.0); MCV 90.8 fL (80.0-100.0); Mean Platelet Volume 6.5; Monocytes # (A) 0.3 k/uL (0-1.0); Monocytes % (A) 5 %; Neutrophils # (A) 2.9 k/uL (1.3-7.7); Neutrophils % (A) 56 %; Platelet Count 220 k/uL (150-450); RDW 13.5 % (11.5-15.5); WBC 5.2 k/uL (3.8-10.6)
--- NOTE | 2019-06-14 19:33 | XR ---
EXAMINATION TYPE: XR KUB DATE OF EXAM: 06/14/2019 COMPARISON: 06/08/2019 HISTORY: Headache. Nausea and vomiting TECHNIQUE: 2 views upright FINDINGS: There is some contrast in the large bowel. There is no sign of intestinal obstruction or pn eumoperitoneum. There are clips from cholecystectomy. Lung bases are clear. There is no sign of a mas s. IMPRESSION: Nonacute abdomen. No adverse change.
[2019-06-14 19:34] LABS: ALT 23 U/L (9-52); AST 24 U/L (14-36); African American GFR (CKD) >90 (>60 ml/min/1.73 sqM); Albumin 3.8 g/dL (3.5-5.0); Alkaline Phosphatase 59 U/L (38-126); Amylase 57 U/L (30-110); Anion Gap 8 mmol/L; Blood Urea Nitrogen 16 mg/dL (7-17); Calcium 8.5 mg/dL (8.4-10.2); Carbon Dioxide 25 mmol/L (22-30); Chloride 109 mmol/L (98-107); Glucose 94 mg/dL (74-99); Non-African American GFR(CKD) >90 (>60 ml/min/1.73 sqM); Potassium 3.9 mmol/L (3.5-5.1); Sodium 142 mmol/L (137-145); Total Bilirubin 0.3 mg/dL (0.2-1.3); Total Protein 6.4 g/dL (6.3-8.2)
[2019-06-14] MEDS ORDERED: ORPHENADRINE 30 MG/ML 2 ML VIAL IVP STA (20:11)
[2019-06-14 20:20] LABS: Appearance,Urine Clear (Clear); Bacteria,Urine Rare /hpf; Bilirubin,Urine Negative (Negative); Blood,Urine Negative (Negative); Color,Urine Light Yellow; Glucose,Urine (UA) Negative (Negative); Ketones,Urine Negative (Negative); Leukocyte Esterase,Urine Small (Negative); Mucus,Urine Rare /hpf; Nitrite,Urine Negative (Negative); Protein,Urine Negative (Negative); RBC,Urine 1 /hpf (0-5); Specific Gravity,Urine 1.015 (1.001-1.035); Squamous Epithelial Cell,Urine 9 /hpf (0-4); Urobilinogen,Urine <2.0 mg/dL (<2.0); WBC,Urine 9 /hpf (0-5)
[2019-06-14 20:33] VITALS: TEMP 97.5
[2019-06-14] MEDS ORDERED: methylPREDNISolone SOD SUCCI 125 MG/2 ML VIAL IV STA (21:40)
[2019-06-14] MEDS ORDERED: MORPHINE SULFATE 2 MG/ML SYRINGE IVP STA (21:40)
[2019-06-14 21:53] VITALS: BP 143/90; PULSE 75
== END 2019-06-14 22:15 | disposition home or self-care (01) ==
LOC: EC 18:44
DX: R51 Headache (principal); R10.9 Unspecified abdominal pain; H57.89 Other specified disorders of eye and adnexa; H53.8 Other visual disturbances; R11.2 Nausea with vomiting, unspecified; K21.9 Gastro-esophageal reflux disease without esophagitis; G40.909 Epilepsy, unspecified, not intractable, without status epilepticus; F41.0 Panic disorder [episodic paroxysmal anxiety]; Z88.0 Allergy status to penicillin; Z79.899 Other long term (current) drug therapy; Z87.19 Personal history of other diseases of the digestive system; Z98.84 Bariatric surgery status; Z97.3 Presence of spectacles and contact lenses; Z80.0 Family history of malignant neoplasm of digestive organs
CPT/HCPCS: 99284; 96374; 96375 ×6; 96361 ×3; 36415; 80053; 82150; 83690; 81001; 85025; 74018; J1200; J2360; J2765; J2930; J1885; J2270; C9113

== ENCOUNTER → 2019-06-15 | Outpatient (CLI) | payer BC ==
[2019-06-15 16:16] VITALS: BP 124/87; PULSE 71; RESP 16; TEMP 97.6; BMI 39.4
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
== END | disposition home or self-care (01) ==
LOC: BARWHC3 15:50
PROVIDERS: ATTEND Surgery
DX: K21.9 Gastro-esophageal reflux disease without esophagitis (principal); R13.10 Dysphagia, unspecified; Z98.84 Bariatric surgery status; Z90.49 Acquired absence of other specified parts of digestive tract; Z90.710 Acquired absence of both cervix and uterus
CPT/HCPCS: 99211

== ENCOUNTER 2019-06-19 19:46 | Emergency (ER) | payer BC ==
[2019-06-19] MEDS ORDERED: SODIUM CHLORIDE 0.9% 1,000 ML IV STA (20:17)
[2019-06-19] MEDS ORDERED: ONDANSETRON 4 MG/2 ML VIAL IVP STA (20:27)
[2019-06-19] MEDS ORDERED: FAMOTIDINE 20 MG/2 ML VIAL IV STA (20:27)
[2019-06-19 21:16] LABS: Basophils % (A) 0 %; Eosinophils # (A) 0.4 k/uL (0-0.7); Eosinophils % (A) 5 %; HCT 33.8 % (34.0-46.0); HGB 11.1 gm/dL (11.4-16.0); Lymphocytes # (A) 1.8 k/uL (1.0-4.8); Lymphocytes % (A) 21 %; MCH 29.8 pg (25.0-35.0); MCHC 32.8 g/dL (31.0-37.0); MCV 90.9 fL (80.0-100.0); Mean Platelet Volume 7.3; Monocytes # (A) 0.5 k/uL (0-1.0); Monocytes % (A) 6 %; Neutrophils # (A) 5.7 k/uL (1.3-7.7); Neutrophils % (A) 65 %; Platelet Count 292 k/uL (150-450); RBC 3.72 m/uL (3.80-5.40); RDW 13.5 % (11.5-15.5); WBC 8.7 k/uL (3.8-10.6)
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
[2019-06-19 21:25] LABS: ALT 39 U/L (9-52); AST 24 U/L (14-36); African American GFR (CKD) >90 (>60 ml/min/1.73 sqM); Albumin 3.6 g/dL (3.5-5.0); Alkaline Phosphatase 62 U/L (38-126); Anion Gap 8 mmol/L; Blood Urea Nitrogen 19 mg/dL (7-17); Carbon Dioxide 26 mmol/L (22-30); Chloride 106 mmol/L (98-107); Glucose 103 mg/dL (74-99); Non-African American GFR(CKD) >90 (>60 ml/min/1.73 sqM); Potassium 4.1 mmol/L (3.5-5.1); Sodium 140 mmol/L (137-145); Total Bilirubin 0.2 mg/dL (0.2-1.3); Total Protein 6.1 g/dL (6.3-8.2)
[2019-06-19 21:31] LABS: Appearance,Urine Cloudy (Clear); Bacteria,Urine Rare /hpf; Bilirubin,Urine Negative (Negative); Blood,Urine Negative (Negative); Color,Urine Yellow; Glucose,Urine (UA) Negative (Negative); Ketones,Urine Negative (Negative); Leukocyte Esterase,Urine Negative (Negative); Mucus,Urine Occasional /hpf; Nitrite,Urine Negative (Negative); PH, Urine 6.5 (5.0-8.0); Protein,Urine Negative (Negative); RBC,Urine 2 /hpf (0-5); Specific Gravity,Urine 1.024 (1.001-1.035); Squamous Epithelial Cell,Urine 2 /hpf (0-4); Urobilinogen,Urine <2.0 mg/dL (<2.0)
[2019-06-19] MEDS ORDERED: LORazepam 1 MG TAB PO STA (23:00)
[2019-06-20 00:04] VITALS: BP 124/94; PULSE 68; RESP 18; TEMP 98
== END 2019-06-20 00:11 | disposition home or self-care (01) ==
LOC: EC 19:46
DX: R10.13 Epigastric pain (principal); G89.29 Other chronic pain; R11.2 Nausea with vomiting, unspecified; R10.816 Epigastric abdominal tenderness; F41.0 Panic disorder [episodic paroxysmal anxiety]; G40.909 Epilepsy, unspecified, not intractable, without status epilepticus; Z79.899 Other long term (current) drug therapy; Z88.0 Allergy status to penicillin; Z98.84 Bariatric surgery status
CPT/HCPCS: 36415; 80053; 85025; 81001; 81025; 99284; 96374; 96375; 96361 ×3; J2405

== ENCOUNTER 2019-07-03 14:38 | Emergency (ER) | payer BC ==
[2019-07-03] MEDS ORDERED: SODIUM CHLORIDE 0.9% 500 ML 500 ML IV STA ×2 (15:02→15:58)
[2019-07-03] MEDS ORDERED: LORazepam 1 MG TAB PO STA (15:02)
[2019-07-03] MEDS ORDERED: KETOROLAC 30 MG/ML 1 ML VIAL IVP STA (15:04)
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
[2019-07-03 15:40] LABS: Basophils % (A) 1 %; Eosinophils # (A) 0.3 k/uL (0-0.7); Eosinophils % (A) 4 %; HCT 37.5 % (34.0-46.0); HGB 12.4 gm/dL (11.4-16.0); Lymphocytes # (A) 1.5 k/uL (1.0-4.8); Lymphocytes % (A) 21 %; MCH 29.7 pg (25.0-35.0); MCV 90.1 fL (80.0-100.0); Mean Platelet Volume 7.2; Monocytes # (A) 0.4 k/uL (0-1.0); Monocytes % (A) 6 %; Neutrophils # (A) 4.7 k/uL (1.3-7.7); Neutrophils % (A) 65 %; Platelet Count 316 k/uL (150-450); RBC 4.17 m/uL (3.80-5.40); RDW 13.4 % (11.5-15.5); WBC 7.2 k/uL (3.8-10.6)
[2019-07-03] MEDS ORDERED: ONDANSETRON 4 MG/2 ML VIAL IVP STA (15:42)
[2019-07-03 15:51] LABS: ALT 17 U/L (4-34); AST 25 U/L (14-36); African American GFR (CKD) >90 (>60 ml/min/1.73 sqM); Albumin 4.2 g/dL (3.5-5.0); Alkaline Phosphatase 68 U/L (38-126); Anion Gap 6 mmol/L; Blood Urea Nitrogen 17 mg/dL (7-17); Calcium 8.9 mg/dL (8.4-10.2); Carbon Dioxide 26 mmol/L (22-30); Chloride 107 mmol/L (98-107); Glucose 98 mg/dL (74-99); Non-African American GFR(CKD) >90 (>60 ml/min/1.73 sqM); Sodium 139 mmol/L (137-145); Total Bilirubin 0.3 mg/dL (0.2-1.3); Total Protein 6.9 g/dL (6.3-8.2)
[2019-07-03] MEDS ORDERED: diphenhydrAMINE 50 MG/ML 1 ML VIAL IVP STA (15:58)
[2019-07-03 16:11] VITALS: RESP 16
[2019-07-03] MEDS ORDERED: ACETAMINOPHEN TAB 325 MG TAB PO STA (16:30)
[2019-07-03] MEDS ORDERED: MORPHINE SULFATE 4 MG/ML SYRINGE IV STA (17:22)
[2019-07-03 18:23] VITALS: BP 116/71; PULSE 67; TEMP 97.6
== END 2019-07-03 18:25 | disposition home or self-care (01) ==
LOC: EC 14:38
DX: G43.109 Migraine with aura, not intractable, without status migrainosus (principal); K21.9 Gastro-esophageal reflux disease without esophagitis; G40.909 Epilepsy, unspecified, not intractable, without status epilepticus; F41.0 Panic disorder [episodic paroxysmal anxiety]; Z79.899 Other long term (current) drug therapy; Z88.0 Allergy status to penicillin; Z98.84 Bariatric surgery status; Z90.49 Acquired absence of other specified parts of digestive tract
CPT/HCPCS: 36415; 93005; 80053; 85025; 99284; 96374; 96375 ×3; 96361 ×2; J2270; J1200; J2405; J1885

== ENCOUNTER 2019-07-19 23:38 | Emergency (ER) | payer BC ==
[2019-07-19 23:47] VITALS: TEMP 98
[2019-07-20] MEDS ORDERED: SODIUM CHLORIDE 0.9% 1,000 ML IV STA (00:08)
[2019-07-20] MEDS ORDERED: METOCLOPRAMIDE 5 MG/ML 2 ML VIAL IVP STA (00:09)
[2019-07-20] MEDS ORDERED: KETOROLAC 30 MG/ML 1 ML VIAL IVP STA (00:09)
[2019-07-20] MEDS ORDERED: diphenhydrAMINE 50 MG/ML 1 ML VIAL IVP STA (00:09)
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
[2019-07-20 01:23] LABS: Basophils % (A) 1 %; Eosinophils # (A) 0.6 k/uL (0-0.7); Eosinophils % (A) 9 %; HCT 36.8 % (34.0-46.0); HGB 12.1 gm/dL (11.4-16.0); Lymphocytes # (A) 1.8 k/uL (1.0-4.8); Lymphocytes % (A) 27 %; MCH 29.7 pg (25.0-35.0); MCHC 32.9 g/dL (31.0-37.0); MCV 90.4 fL (80.0-100.0); Mean Platelet Volume 7.2; Monocytes # (A) 0.3 k/uL (0-1.0); Monocytes % (A) 5 %; Neutrophils # (A) 3.6 k/uL (1.3-7.7); Neutrophils % (A) 56 %; Platelet Count 281 k/uL (150-450); RBC 4.07 m/uL (3.80-5.40); RDW 13.7 % (11.5-15.5); WBC 6.5 k/uL (3.8-10.6)
[2019-07-20 01:24] LABS: Amorphous Sediment,Urine Rare /hpf; Appearance,Urine Cloudy (Clear); Bacteria,Urine Rare /hpf; Bilirubin,Urine Negative (Negative); Blood,Urine Negative (Negative); Color,Urine Yellow; Glucose,Urine (UA) Negative (Negative); Ketones,Urine Negative (Negative); Leukocyte Esterase,Urine Negative (Negative); Mucus,Urine Rare /hpf; Nitrite,Urine Negative (Negative); Protein,Urine Trace (Negative); RBC,Urine 2 /hpf (0-5); Specific Gravity,Urine 1.031 (1.001-1.035); Squamous Epithelial Cell,Urine 2 /hpf (0-4); Urobilinogen,Urine <2.0 mg/dL (<2.0); WBC,Urine 1 /hpf (0-5)
[2019-07-20 01:32] LABS: ALT 22 U/L (4-34); AST 22 U/L (14-36); African American GFR (CKD) >90 (>60 ml/min/1.73 sqM); Alkaline Phosphatase 77 U/L (38-126); Amylase 55 U/L (30-110); Anion Gap 9 mmol/L; Blood Urea Nitrogen 26 mg/dL (7-17); Calcium 9.3 mg/dL (8.4-10.2); Carbon Dioxide 24 mmol/L (22-30); Chloride 109 mmol/L (98-107); Glucose 90 mg/dL (74-99); Non-African American GFR(CKD) >90 (>60 ml/min/1.73 sqM); Sodium 142 mmol/L (137-145); Total Bilirubin 0.2 mg/dL (0.2-1.3); Total Protein 6.9 g/dL (6.3-8.2)
--- NOTE | 2019-07-20 01:32 | XR ---
EXAMINATION TYPE: XR KUB DATE OF EXAM: 07/20/2019 COMPARISON: 06/14/2019 HISTORY: Abdominal pain TECHNIQUE: 2 views upright FINDINGS: There is no sign of intestinal obstruction or pneumoperitoneum. There is mild retained feca l material in the large bowel. There is no evidence of a mass. Lung bases are clear. There are clips from cholecystectomy. IMPRESSION: Nonacute abdomen. Mild constipation.
[2019-07-20] MEDS ORDERED: MORPHINE SULFATE 4 MG/ML SYRINGE IVP STA (01:55)
[2019-07-20 02:25] VITALS: BP 122/81; PULSE 84; RESP 18
== END 2019-07-20 02:24 | disposition home or self-care (01) ==
LOC: EC 23:38
DX: K59.00 Constipation, unspecified (principal); R11.2 Nausea with vomiting, unspecified; R19.7 Diarrhea, unspecified; R12 Heartburn; G40.909 Epilepsy, unspecified, not intractable, without status epilepticus; F41.0 Panic disorder [episodic paroxysmal anxiety]; Z87.19 Personal history of other diseases of the digestive system; Z98.84 Bariatric surgery status; Z90.49 Acquired absence of other specified parts of digestive tract; Z90.710 Acquired absence of both cervix and uterus; Z79.899 Other long term (current) drug therapy; Z88.0 Allergy status to penicillin
CPT/HCPCS: 36415; 80053; 82150; 83690; 85025; 81001; 74018; 99284; 96374; 96375 ×3; 96361; J2270; J1200; J2765; J1885

== ENCOUNTER 2019-07-25 13:13 | Emergency (ER) | payer BC ==
[2019-07-25 13:24] VITALS: BP 125/86; PULSE 75; RESP 16; TEMP 97.9
[2019-07-25] MEDS ORDERED: diphenhydrAMINE 50 MG/ML 1 ML VIAL IVP STA (14:10)
[2019-07-25] MEDS ORDERED: METOCLOPRAMIDE 5 MG/ML 2 ML VIAL IVP STA (14:10)
[2019-07-25] MEDS ORDERED: SODIUM CHLORIDE 0.9% 1,000 ML IV STA (14:10)
[2019-07-25] MEDS ORDERED: KETOROLAC 30 MG/ML 1 ML VIAL IVP STA (14:10)
[2019-07-25] MEDS ORDERED: BUTALB/APAP/CAFF 50-325-40MG TAB PO STA (14:12)
[2019-07-25 15:09] LABS: Basophils % (A) 0 %; Eosinophils # (A) 0.2 k/uL (0-0.7); Eosinophils % (A) 1 %; HGB 11.9 gm/dL (11.4-16.0); Lymphocytes # (A) 2.9 k/uL (1.0-4.8); Lymphocytes % (A) 21 %; MCH 29.5 pg (25.0-35.0); MCHC 33.2 g/dL (31.0-37.0); Mean Platelet Volume 7.2; Monocytes # (A) 0.7 k/uL (0-1.0); Monocytes % (A) 5 %; Neutrophils # (A) 9.4 k/uL (1.3-7.7); Neutrophils % (A) 70 %; Platelet Count 386 k/uL (150-450); RBC 4.05 m/uL (3.80-5.40); RDW 13.4 % (11.5-15.5); WBC 13.4 k/uL (3.8-10.6)
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
[2019-07-25 15:13] LABS: African American GFR (CKD) >90 (>60 ml/min/1.73 sqM); Anion Gap 4 mmol/L; Blood Urea Nitrogen 20 mg/dL (7-17); Calcium 8.9 mg/dL (8.4-10.2); Carbon Dioxide 27 mmol/L (22-30); Chloride 107 mmol/L (98-107); Glucose 87 mg/dL (74-99); Non-African American GFR(CKD) >90 (>60 ml/min/1.73 sqM); Sodium 138 mmol/L (137-145)
[2019-07-25] MEDS ORDERED: HYDROmorphone 1 MG/ML 1 ML SYRINGE IVP STA (15:34)
== END 2019-07-25 16:37 | disposition home or self-care (01) ==
LOC: EC 13:13
DX: R51 Headache (principal); G40.909 Epilepsy, unspecified, not intractable, without status epilepticus; F41.0 Panic disorder [episodic paroxysmal anxiety]; Z79.899 Other long term (current) drug therapy; Z88.0 Allergy status to penicillin
CPT/HCPCS: 36415; 80048; 83735; 85025; 99284; 96374; 96375 ×3; 96361; J1200; J2765; J1885; J1170

== ENCOUNTER → 2019-08-03 | Outpatient (CLI) | payer BC ==
[2019-08-03 15:38] LABS: Basophils # (A) 0.1 k/uL (0-0.2); Basophils % (A) 1 %; Eosinophils # (A) 0.6 k/uL (0-0.7); Eosinophils % (A) 7 %; HCT 41.1 % (34.0-46.0); HGB 12.2 gm/dL (11.4-16.0); Hypochromasia Marked; Lymphocytes # (A) 1.9 k/uL (1.0-4.8); Lymphocytes % (A) 20 %; MCH 28.5 pg (25.0-35.0); MCHC 29.7 g/dL (31.0-37.0); Mean Platelet Volume 7.2; Monocytes # (A) 0.6 k/uL (0-1.0); Monocytes % (A) 6 %; Neutrophils # (A) 6.2 k/uL (1.3-7.7); Neutrophils % (A) 65 %; Platelet Count 346 k/uL (150-450); RBC 4.29 m/uL (3.80-5.40); RDW 13.7 % (11.5-15.5); WBC 9.5 k/uL (3.8-10.6)
[2019-08-03 15:49] LABS: MCV 95.7 fL (80.0-100.0)
[2019-08-03 21:54] LABS: African American GFR (CKD) 133.8 (60.0-200.0); Albumin 4.1 g/dL (3.80-4.90); Albumin/Globulin Ratio 2.41 (1.60-3.17); Anion Gap 10.5 mmol/L (4.00-12.00); BUN/Creat Ratio 34.29 Ratio (12.00-20.00); Calcium 8.5 mg/dL (8.7-10.3); Carbon Dioxide 19.5 mmol/L (21.6-31.8); Globulin 1.7 g/dL (1.6-3.3); Non-African American GFR(CKD) 115.4 (60.0-200.0); Potassium 4.4 mmol/L (3.5-5.5); Total Bilirubin 0.1 mg/dL (0.2-1.2); Total Protein 5.8 g/dL (6.2-8.2)
== END | disposition home or self-care (01) ==
LOC: LABWHC1 15:01
PROVIDERS: ATTEND Nurse Practitioner Acute Care
DX: R51 Headache (principal); E55.9 Vitamin D deficiency, unspecified; R53.82 Chronic fatigue, unspecified
CPT/HCPCS: 36415; 80053; 82306; 82607; 84207; 85025

== ENCOUNTER 2019-12-25 20:01 | Emergency (ER) | payer BC ==
[2019-12-25 20:13] VITALS: RESP 18; TEMP 97.3
[2019-12-25 21:20] LABS: Basophils % (A) 1 %; Eosinophils # (A) 0.7 k/uL (0-0.7); Eosinophils % (A) 12 %; HCT 34.9 % (34.0-46.0); Hypochromasia Moderate; Lymphocytes # (A) 1.6 k/uL (1.0-4.8); Lymphocytes % (A) 28 %; MCH 28.8 pg (25.0-35.0); MCHC 31.6 g/dL (31.0-37.0); MCV 91.2 fL (80.0-100.0); Mean Platelet Volume 7.5; Monocytes # (A) 0.4 k/uL (0-1.0); Monocytes % (A) 7 %; Neutrophils # (A) 2.8 k/uL (1.3-7.7); Neutrophils % (A) 50 %; Platelet Count 279 k/uL (150-450); RBC 3.83 m/uL (3.80-5.40); WBC 5.7 k/uL (3.8-10.6)
[2019-12-25 21:28] LABS: ALT 15 U/L (4-34); AST 23 U/L (14-36); African American GFR (CKD) >90 (>60 ml/min/1.73 sqM); Albumin 3.4 g/dL (3.5-5.0); Alkaline Phosphatase 56 U/L (38-126); Anion Gap 6 mmol/L; Blood Urea Nitrogen 20 mg/dL (7-17); Calcium 8.3 mg/dL (8.4-10.2); Carbon Dioxide 21 mmol/L (22-30); Chloride 113 mmol/L (98-107); Glucose 86 mg/dL (74-99); Non-African American GFR(CKD) >90 (>60 ml/min/1.73 sqM); Potassium 4.3 mmol/L (3.5-5.1); Sodium 140 mmol/L (137-145); Total Bilirubin 0.2 mg/dL (0.2-1.3); Total Protein 6.1 g/dL (6.3-8.2)
[2019-12-25] MEDS ORDERED: KETOROLAC 30 MG/ML 1 ML VIAL IVP STA (21:40)
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
--- NOTE | 2019-12-25 21:59 | CT ---
EXAMINATION TYPE: CT brain wo con DATE OF EXAM: 12/25/2019 COMPARISON: 07/13/2019 HISTORY: Seizure, posterior head injury CT DLP: 1099.4 mGycm Automated exposure control for dose reduction was used. Ventricles have normal size. There is no mass effect nor midline shift. There is no sign of intracran ial hemorrhage. The calvarium is intact. There is no evidence of cerebral edema. IMPRESSION: Negative unenhanced head CT scan.
[2019-12-25 22:00] VITALS: BP 114/72; PULSE 73
[2019-12-25] MEDS ORDERED: traMADol 50 MG STARTER PACK 3 TAB BTL PO STA (22:52)
== END 2019-12-25 23:16 | disposition home or self-care (01) ==
LOC: EC 20:01
DX: G40.909 Epilepsy, unspecified, not intractable, without status epilepticus (principal); S00.83XA Contusion of other part of head, initial encounter; M79.632 Pain in left forearm; F41.0 Panic disorder [episodic paroxysmal anxiety]; Z79.899 Other long term (current) drug therapy; Z88.0 Allergy status to penicillin; Z98.84 Bariatric surgery status; W01.190A Fall on same level from slipping, tripping and stumbling with subsequent striking against furniture, initial encounter; Y92.89 Other specified places as the place of occurrence of the external cause; Y99.0 Civilian activity done for income or pay; Z80.0 Family history of malignant neoplasm of digestive organs
CPT/HCPCS: 99284; 96374; 36415; 80053; 85025; 70450; J1885

== ENCOUNTER → 2020-02-26 | Outpatient (CLI) | payer BC ==
[2020-02-26 10:10] LABS: Basophils % (A) 1 %; Eosinophils # (A) 0.4 k/uL (0-0.7); Eosinophils % (A) 8 %; HCT 34.9 % (34.0-46.0); HGB 10.6 gm/dL (11.4-16.0); Hypochromasia Moderate; Lymphocytes # (A) 1.3 k/uL (1.0-4.8); Lymphocytes % (A) 24 %; MCH 27.2 pg (25.0-35.0); MCHC 30.3 g/dL (31.0-37.0); MCV 89.7 fL (80.0-100.0); Mean Platelet Volume 7.4; Monocytes # (A) 0.3 k/uL (0-1.0); Monocytes % (A) 5 %; Neutrophils # (A) 3.3 k/uL (1.3-7.7); Neutrophils % (A) 61 %; Platelet Count 260 k/uL (150-450); RBC 3.88 m/uL (3.80-5.40); RDW 13.9 % (11.5-15.5); WBC 5.4 k/uL (3.8-10.6)
[2020-02-26 17:25] LABS: % Iron Saturation 9.61 (12.00-45.00); ALT 22 U/L (8-44); AST 18 U/L (13-35); African American GFR (CKD) 140.8 (60.0-200.0); Albumin/Globulin Ratio 2.06 (1.60-3.17); Alkaline Phosphatase 64 U/L (41-126); BUN/Creat Ratio 43.33 Ratio (12.00-20.00); C Reactive Protein <0.4 mg/dL (0.0-0.8); Calcium 8.2 mg/dL (8.7-10.3); Carbon Dioxide 18.3 mmol/L (21.6-31.8); Chloride 115 mmol/L (96-109); Creatine Kinase 83 U/L (26-186); Globulin 1.8 g/dL (1.6-3.3); Glucose 93 mg/dL (70-110); Iron 37 ug/dL (50-170); Non-African American GFR(CKD) 121.5 (60.0-200.0); Potassium 4.4 mmol/L (3.5-5.5); Rheumatoid Factor, Qnt 6 IU/mL (0-15); Sodium 140 mmol/L (135-145); Total Bilirubin 0.2 mg/dL (0.3-1.2); Total Iron Binding Capacity 385 ug/dL (228-460); Total Protein 5.5 g/dL (6.2-8.2)
[2020-02-26 17:52] LABS: Erythrocyte Sedimentation Rate 12 mm/Hr (0-20)
== END | disposition home or self-care (01) ==
LOC: LABWHC1 09:15
PROVIDERS: ATTEND Psychiatry & Neurology Neurology
DX: D64.9 Anemia, unspecified (principal); R51 Headache; R56.9 Unspecified convulsions; E55.9 Vitamin D deficiency, unspecified; R53.82 Chronic fatigue, unspecified; Z51.81 Encounter for therapeutic drug level monitoring; Z79.899 Other long term (current) drug therapy
CPT/HCPCS: 36415; 80053; 82306; 82550; 82607; 83540; 83550; 84207; 84439; 84443; 84481; 85025; 85652; 86140; 86431

== ENCOUNTER 2020-07-21 02:39 | Emergency (ER) | payer BC ==
[2020-07-21] MEDS ORDERED: MORPHINE SULFATE 4 MG/ML SYRINGE IV STA (03:04)
[2020-07-21] MEDS ORDERED: SODIUM CHLORIDE 0.9% 1,000 ML IV STA ×2 (03:04→06:15)
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
[2020-07-21 04:32] LABS: ALT 17 U/L (4-34); African American GFR (CKD) >90 (>60 ml/min/1.73 sqM); Albumin 3.7 g/dL (3.5-5.0); Amylase 51 U/L (30-110); Anion Gap 6 mmol/L; Blood Urea Nitrogen 23 mg/dL (7-17); Calcium 8.5 mg/dL (8.4-10.2); Carbon Dioxide 21 mmol/L (22-30); Chloride 114 mmol/L (98-107); Glucose 79 mg/dL (74-99); Lipase 135 U/L (23-300); Non-African American GFR(CKD) >90 (>60 ml/min/1.73 sqM); Sodium 141 mmol/L (137-145); Total Bilirubin 0.4 mg/dL (0.2-1.3); Total Protein 6.8 g/dL (6.3-8.2)
[2020-07-21 04:42] LABS: Anisocytosis Slight; Basophils % (A) 1 %; Eosinophils # (A) 0.2 k/uL (0-0.7); Eosinophils % (A) 3 %; HCT 35.5 % (34.0-46.0); HGB 11.4 gm/dL (11.4-16.0); Hypochromasia Slight; Lymphocytes # (A) 2.2 k/uL (1.0-4.8); Lymphocytes % (A) 31 %; MCH 26.9 pg (25.0-35.0); MCV 84.1 fL (80.0-100.0); Mean Platelet Volume 7.5; Monocytes # (A) 0.3 k/uL (0-1.0); Monocytes % (A) 5 %; Neutrophils # (A) 4.3 k/uL (1.3-7.7); Neutrophils % (A) 59 %; Platelet Count 282 k/uL (150-450); RBC 4.22 m/uL (3.80-5.40); RDW 16.2 % (11.5-15.5); WBC 7.2 k/uL (3.8-10.6)
[2020-07-21 04:49] LABS: Appearance,Urine Cloudy (Clear); Bacteria,Urine Occasional /hpf; Bilirubin,Urine Negative (Negative); Blood,Urine Large (Negative); Color,Urine Yellow; Glucose,Urine (UA) Negative (Negative); Hyaline Casts,Urine 5 /lpf (0-2); Ketones,Urine Negative (Negative); Leukocyte Esterase,Urine Negative (Negative); Mucus,Urine Many /hpf; Nitrite,Urine Negative (Negative); PH, Urine 6.5 (5.0-8.0); Protein,Urine 1+ (Negative); RBC,Urine 159 /hpf (0-5); Specific Gravity,Urine 1.041 (1.001-1.035); Squamous Epithelial Cell,Urine 15 /hpf (0-4); WBC,Urine 7 /hpf (0-5)
--- NOTE | 2020-07-21 04:56 | CT ---
EXAM: CT Abdomen and Pelvis With Intravenous Contrast CLINICAL HISTORY: ITS.REASON CT Reason: abdominal pain TECHNIQUE: Axial computed tomography images of the abdomen and pelvis with intravenous contrast. CTDI is 49.97 mGy and DLP is 1986 mGy-cm. This CT exam was performed using one or more of the following dose reduction techniques: automated exposure control, adjustment of the mA and/or kV according to patient size, and/or use of iterative reconstruction technique. COMPARISON: No relevant prior studies available. FINDINGS: Lung bases: Unremarkable. No mass. No consolidation. ABDOMEN: Liver: Unremarkable. No mass. Gallbladder and bile ducts: Status post cholecystectomy. No ductal dilation. Pancreas: Unremarkable. No mass. No ductal dilation. Spleen: Unremarkable. No splenomegaly. Adrenals: Unremarkable. No mass. Kidneys and ureters: Unremarkable. No solid mass. No hydronephrosis. Delayed phase imaging demonstrates normal excreted contrast in the renal collecting systems and visualized proximal ureters Stomach and bowel: Postsurgical changes involving the greater curvature the stomach, most consistent with gastric reduction surgery. There is moderate stool throughout the colon. Mucosal prominence of the decompressed sigmoid colon is presumed related to underdistention. Scattered fluid-filled loops of small bowel in the inferior abdomen and pelvis is nonspecific. No evidence for high-grade bowel obstruction. PELVIS: Appendix: A normal caliber appendix is noted in the right lower quadrant. Bladder: Unremarkable. No mass. Reproductive: Status post hysterectomy. ABDOMEN and PELVIS: Intraperitoneal space: Unremarkable. No free air. No significant fluid collection. Bones/joints: No acute fracture. No dislocation. Soft tissues: Unremarkable. Vasculature: Unremarkable. No abdominal aortic aneurysm. Lymph nodes: Unremarkable. No enlarged lymph nodes. IMPRESSION: Moderate stool throughout the colon. Scattered fluid-filled loops of small bowel in the inferior abdomen and pelvis is presumed normal variation. Mild enteritis is considered less likely. No evidence for high-grade bowel obstruction. No free intraperitoneal fluid or pneumoperitoneum. Incidental normal caliber appendix.
[2020-07-21 04:57] LABS: AST 30 U/L (14-36); Potassium 4.7 mmol/L (3.5-5.1)
[2020-07-21 04:58] LABS: Alkaline Phosphatase 60 U/L (38-126)
[2020-07-21] MEDS ORDERED: HYDROmorphone 1 MG/ML 1 ML SYRINGE IVP STA ×2 (05:11→06:15)
[2020-07-21 06:15] VITALS: RESP 18; TEMP 97.6
--- NOTE | 2020-07-21 07:38 | US ---
EXAMINATION TYPE: US transvaginal DATE OF EXAM: 07/21/2020 COMPARISON: ct 07/21/2020, us 01/12/2019 CLINICAL HISTORY: pain. Rt side pain. difficult exam as the patient is in pain TECHNIQUE: . Transabdominal sonographic images of the pelvis were acquired. Transvaginal sonographi c images were medically necessary to better assess the following anatomy: ovaries Date of LMP: 2018 EXAM MEASUREMENTS: Uterus: Surgically absent Endometrial Stripe: Surgically absent Right Ovary: Not visualized Left Ovary: not visualized 1. Uterus: Surgically absent 2. Endometrium: Surgically absent 3. Right Ovary: Obscured by overlying bowel gas 4. Left Ovary: Obscured by overlying bowel gas 5. Bilateral Adnexa: wnl as visualized 6. Posterior cul-de-sac: small amount of free fluid visualized IMPRESSION: 1. Free fluid within the pelvis.
[2020-07-21] MEDS ORDERED: KETOROLAC 15 MG/ML 1 ML VIAL IVP STA (08:48)
[2020-07-21 09:06] VITALS: BP 104/65; PULSE 91
== END 2020-07-21 09:34 | disposition home or self-care (01) ==
LOC: EC 02:39
DX: R10.9 Unspecified abdominal pain (principal); R11.0 Nausea; G40.909 Epilepsy, unspecified, not intractable, without status epilepticus; K21.9 Gastro-esophageal reflux disease without esophagitis; F41.0 Panic disorder [episodic paroxysmal anxiety]; Z79.899 Other long term (current) drug therapy; Z88.0 Allergy status to penicillin; Z98.84 Bariatric surgery status; Z90.49 Acquired absence of other specified parts of digestive tract; Z90.710 Acquired absence of both cervix and uterus
CPT/HCPCS: 36415; 80053; 82150; 83605; 83690; 85025; 81001; 76830; 74177; 99285; 96374; 96375 ×2; 96376; 96361 ×4; J2270; J1170; J1885; Q9967

== ENCOUNTER 2020-07-27 21:35 | Emergency (ER) | payer BC ==
[2020-07-27 21:42] VITALS: TEMP 97.9
[2020-07-27] MEDS ORDERED: ONDANSETRON 4 MG/2 ML VIAL IVP STA (22:01)
[2020-07-27] MEDS ORDERED: SODIUM CHLORIDE 0.9% 500 ML 500 ML IV STA (22:01)
[2020-07-27] MEDS ORDERED: diphenhydrAMINE 50 MG/ML 1 ML VIAL IVP STA (22:01)
[2020-07-27] MEDS ORDERED: HYDROmorphone 1 MG/ML 1 ML SYRINGE IVP STA ×2 (22:01→23:33)
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
[2020-07-27 22:41] LABS: Anisocytosis Slight; Basophils % (A) 1 %; Eosinophils # (A) 0.2 k/uL (0-0.7); Eosinophils % (A) 2 %; HCT 35.3 % (34.0-46.0); HGB 11.1 gm/dL (11.4-16.0); Hypochromasia Slight; Lymphocytes # (A) 1.7 k/uL (1.0-4.8); Lymphocytes % (A) 25 %; MCH 26.4 pg (25.0-35.0); MCHC 31.5 g/dL (31.0-37.0); MCV 83.9 fL (80.0-100.0); Monocytes # (A) 0.3 k/uL (0-1.0); Monocytes % (A) 5 %; Neutrophils # (A) 4.5 k/uL (1.3-7.7); Neutrophils % (A) 66 %; Platelet Count 313 k/uL (150-450); RBC 4.21 m/uL (3.80-5.40); RDW 16.1 % (11.5-15.5); WBC 6.8 k/uL (3.8-10.6)
[2020-07-27 22:46] LABS: Appearance,Urine Clear (Clear); Bacteria,Urine Rare /hpf; Bilirubin,Urine Negative (Negative); Blood,Urine Negative (Negative); Color,Urine Yellow; Glucose,Urine (UA) Negative (Negative); Ketones,Urine Negative (Negative); Leukocyte Esterase,Urine Small (Negative); Mucus,Urine Rare /hpf; Nitrite,Urine Negative (Negative); PH, Urine 7.5 (5.0-8.0); Protein,Urine Negative (Negative); RBC,Urine 1 /hpf (0-5); Specific Gravity,Urine 1.027 (1.001-1.035); Squamous Epithelial Cell,Urine 1 /hpf (0-4); Urobilinogen,Urine <2.0 mg/dL (<2.0); WBC,Urine 1 /hpf (0-5)
[2020-07-27 22:58] LABS: ALT 57 U/L (4-34); AST 20 U/L (14-36); African American GFR (CKD) >90 (>60 ml/min/1.73 sqM); Albumin 3.9 g/dL (3.5-5.0); Alkaline Phosphatase 72 U/L (38-126); Amylase 49 U/L (30-110); Anion Gap 7 mmol/L; Blood Urea Nitrogen 24 mg/dL (7-17); Calcium 8.6 mg/dL (8.4-10.2); Carbon Dioxide 19 mmol/L (22-30); Chloride 114 mmol/L (98-107); Glucose 88 mg/dL (74-99); Lipase 135 U/L (23-300); Non-African American GFR(CKD) >90 (>60 ml/min/1.73 sqM); Potassium 4.7 mmol/L (3.5-5.1); Sodium 140 mmol/L (137-145); Total Bilirubin 0.2 mg/dL (0.2-1.3); Total Protein 6.9 g/dL (6.3-8.2)
[2020-07-27] MEDS ORDERED: KETOROLAC 15 MG/ML 1 ML VIAL IVP STA (23:33)
--- NOTE | 2020-07-27 23:46 | US ---
EXAMINATION TYPE: US transvaginal DATE OF EXAM: 07/27/2020 COMPARISON: NONE CLINICAL HISTORY: Pelvic pain; hx ovarian cysts. Pain x 1 month. Hx ovarian cysts. Endometriosis. Par tial hysterectomy 2019. TECHNIQUE: Transvaginal (TV). Date of LMP: 2019, hysterectomy. EXAM MEASUREMENTS: Uterus: Hysterectomy. Right Ovary: Not visualized due to overlying bowel. Left Ovary: Not visualized due to overlying bowel. 1. Uterus: Hysterectomy. 2. Right Ovary: Not visualized. 3. Left Ovary: Not visualized. 4. Bilateral Adnexa: Appear wnl. 5. Posterior cul-de-sac: Appears wnl Very limited exam. IMPRESSION: No solid or cystic pelvic mass. No free fluid. No demonstrated abnormality.
[2020-07-27 23:50] VITALS: BP 118/83; PULSE 86; RESP 18
[2020-07-28] MEDS ORDERED: ACET/COD 300 MG/30 MG STARTER PACK 6 TAB BTL PO STA (00:03)
== END 2020-07-28 00:18 | disposition home or self-care (01) ==
LOC: EC 21:35
DX: R10.2 Pelvic and perineal pain (principal); F41.0 Panic disorder [episodic paroxysmal anxiety]; K21.9 Gastro-esophageal reflux disease without esophagitis; G40.909 Epilepsy, unspecified, not intractable, without status epilepticus; G47.00 Insomnia, unspecified; Z79.899 Other long term (current) drug therapy; Z98.84 Bariatric surgery status; Z87.19 Personal history of other diseases of the digestive system; Z90.49 Acquired absence of other specified parts of digestive tract
CPT/HCPCS: 36415; 80053; 82150; 83690; 85025; 81001; 76830; 99284; 96374; 96375 ×3; 96376; 96361; J1200; J2405; J1170; J1885

== ENCOUNTER 2020-08-10 01:38 | Emergency (ER) | payer BC ==
[2020-08-10 01:54] VITALS: BP 126/79; TEMP 98.1
[2020-08-10] MEDS ORDERED: SODIUM CHLORIDE 0.9% 1,000 ML IV ONE (02:07)
[2020-08-10] MEDS ORDERED: KETOROLAC 15 MG/ML 1 ML VIAL IVP STA (02:07)
[2020-08-10] MEDS ORDERED: SODIUM CHLORIDE 0.9% 1,000 ML IV SCH (02:15)
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
[2020-08-10 03:16] LABS: Anisocytosis Slight; Basophils % (A) 1 %; Eosinophils # (A) 0.2 k/uL (0-0.7); Eosinophils % (A) 3 %; HCT 33.7 % (34.0-46.0); HGB 10.4 gm/dL (11.4-16.0); Hypochromasia Moderate; Lymphocytes # (A) 1.7 k/uL (1.0-4.8); Lymphocytes % (A) 28 %; MCH 26.4 pg (25.0-35.0); MCHC 30.8 g/dL (31.0-37.0); MCV 85.6 fL (80.0-100.0); Mean Platelet Volume 7.6; Monocytes # (A) 0.4 k/uL (0-1.0); Monocytes % (A) 6 %; Neutrophils # (A) 3.6 k/uL (1.3-7.7); Neutrophils % (A) 60 %; Platelet Count 265 k/uL (150-450); RBC 3.94 m/uL (3.80-5.40); RDW 16.4 % (11.5-15.5); WBC 6.1 k/uL (3.8-10.6)
[2020-08-10 03:17] LABS: Appearance,Urine Clear (Clear); Bilirubin,Urine Negative (Negative); Blood,Urine Negative (Negative); Color,Urine Yellow; Glucose,Urine (UA) Negative (Negative); Ketones,Urine Trace (Negative); Leukocyte Esterase,Urine Negative (Negative); Nitrite,Urine Negative (Negative); PH, Urine 6.5 (5.0-8.0); Protein,Urine Trace (Negative); Specific Gravity,Urine 1.035 (1.001-1.035)
[2020-08-10 03:30] LABS: African American GFR (CKD) >90 (>60 ml/min/1.73 sqM); Albumin 3.7 g/dL (3.5-5.0); Anion Gap 5 mmol/L; Calcium 8.1 mg/dL (8.4-10.2); Carbon Dioxide 19 mmol/L (22-30); Chloride 116 mmol/L (98-107); Glucose 96 mg/dL (74-99); Non-African American GFR(CKD) >90 (>60 ml/min/1.73 sqM); Sodium 140 mmol/L (137-145); Total Bilirubin 1.3 mg/dL (0.2-1.3); Total Protein 6.8 g/dL (6.3-8.2)
[2020-08-10 03:31] LABS: Cocaine Screen,Urine Not Detected (NotDetected); Opiate Screen,Urine Not Detected (NotDetected); Phencyclidine Screen,Urine Detected (NotDetected); Urn Cannabinoid Scrn Not Detected (NotDetected)
[2020-08-10 03:32] LABS: Amphetamine Screen,Urine Not Detected (NotDetected); Barbiturate Screen,Urine Detected (NotDetected); Benzodiazepines Screen,Urine Not Detected (NotDetected); Methadone Screen, Urine Not Detected (NotDetected); Oxycodone Screen, Urine Not Detected (NotDetected); Tricyclic Antidepressant,Urine Detected (NotDetected)
[2020-08-10 03:36] LABS: ALT 31 U/L (4-34); AST 54 U/L (14-36); Alkaline Phosphatase 46 U/L (38-126); Blood Urea Nitrogen 23 mg/dL (7-17); Potassium 6.1 mmol/L (3.5-5.1)
[2020-08-10 04:29] VITALS: PULSE 85; RESP 18
== END 2020-08-10 04:29 | disposition home or self-care (01) ==
LOC: EC 01:38
DX: G89.29 Other chronic pain (principal); R10.30 Lower abdominal pain, unspecified; K21.9 Gastro-esophageal reflux disease without esophagitis; G40.909 Epilepsy, unspecified, not intractable, without status epilepticus; F41.0 Panic disorder [episodic paroxysmal anxiety]; Z79.899 Other long term (current) drug therapy; Z98.84 Bariatric surgery status
CPT/HCPCS: 36415; 80053; 80306; 81003; 81025; 84132; 85025; 96361; 96374; 99284

== ENCOUNTER 2020-09-16 18:23 | Emergency (ER) | payer BC ==
[2020-09-16 18:27] LABS: Glucose,Whole Blood 192 mg/dL (75-99)
[2020-09-16 18:51] VITALS: RESP 18
[2020-09-16] MEDS ORDERED: SODIUM CHLORIDE 0.9% 1,000 ML IV STA (18:52)
[2020-09-16 19:19] LABS: ALT 69 U/L (4-34); AST 21 U/L (14-36); African American GFR (CKD) >90 (>60 ml/min/1.73 sqM); Albumin 3.3 g/dL (3.5-5.0); Alkaline Phosphatase 92 U/L (38-126); Anion Gap 7 mmol/L; Blood Urea Nitrogen 17 mg/dL (7-17); Calcium 8.3 mg/dL (8.4-10.2); Carbon Dioxide 16 mmol/L (22-30); Chloride 115 mmol/L (98-107); Glucose 193 mg/dL (74-99); Non-African American GFR(CKD) >90 (>60 ml/min/1.73 sqM); Potassium 4.3 mmol/L (3.5-5.1); Sodium 138 mmol/L (137-145); Total Bilirubin 0.2 mg/dL (0.2-1.3); Total Protein 5.9 g/dL (6.3-8.2)
[2020-09-16 19:21] LABS: Anisocytosis Slight; Basophils % (A) 0 %; Eosinophils # (A) 0.1 k/uL (0-0.7); Eosinophils % (A) 3 %; HCT 34.6 % (34.0-46.0); HGB 11.1 gm/dL (11.4-16.0); Hypochromasia Slight; Lymphocytes # (A) 1.2 k/uL (1.0-4.8); Lymphocytes % (A) 28 %; MCH 28.1 pg (25.0-35.0); MCV 87.7 fL (80.0-100.0); Mean Platelet Volume 7.6; Monocytes # (A) 0.2 k/uL (0-1.0); Monocytes % (A) 6 %; Neutrophils # (A) 2.6 k/uL (1.3-7.7); Neutrophils % (A) 61 %; Platelet Count 251 k/uL (150-450); RBC 3.95 m/uL (3.80-5.40); RDW 16.9 % (11.5-15.5); WBC 4.2 k/uL (3.8-10.6)
[2020-09-16 19:24] LABS: Valproic Acid (Depakene) 20.3 ug/mL
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
--- NOTE | 2020-09-16 19:38 | CT ---
EXAMINATION TYPE: CT brain cspine wo con DATE OF EXAM: 09/16/2020 COMPARISON: CT brain 12/25/2019 HISTORY: Seizure. CT DLP: 1726.2 mGycm Automated exposure control for dose reduction was used. Images of the brain and cervical spine were obtained without contrast. Ventricles have normal size. There is no mass effect nor midline shift. There is no sign of intracran ial hemorrhage. The calvarium is intact. Skull base is intact. There is normal aeration of the mastoi d sinuses. Cervical vertebra have normal alignment. Posterior elements are intact. Facet joints are intact. Ther e is mild anterior spurring at C4-5. Prevertebral soft tissues are intact. Facet joints appear normal . IMPRESSION: Negative CT scan of the brain. No change. Negative CT scan cervical spine.
[2020-09-16 19:58] LABS: Appearance,Urine Cloudy (Clear); Bilirubin,Urine Negative (Negative); Blood,Urine Negative (Negative); Color,Urine Yellow; Glucose,Urine (UA) 2+ (Negative); Ketones,Urine Negative (Negative); Leukocyte Esterase,Urine Trace (Negative); Mucus,Urine Rare /hpf; Nitrite,Urine Negative (Negative); Protein,Urine Negative (Negative); RBC,Urine 1 /hpf (0-5); Specific Gravity,Urine 1.021 (1.001-1.035); Squamous Epithelial Cell,Urine 3 /hpf (0-4); Urobilinogen,Urine <2.0 mg/dL (<2.0); WBC,Urine 1 /hpf (0-5)
[2020-09-16 20:18] LABS: Amphetamine Screen,Urine Not Detected (NotDetected); Barbiturate Screen,Urine Detected (NotDetected); Benzodiazepines Screen,Urine Not Detected (NotDetected); Cocaine Screen,Urine Not Detected (NotDetected); Methadone Screen, Urine Not Detected (NotDetected); Opiate Screen,Urine Not Detected (NotDetected); Oxycodone Screen, Urine Not Detected (NotDetected); Phencyclidine Screen,Urine Not Detected (NotDetected); Tricyclic Antidepressant,Urine Detected (NotDetected); Urn Cannabinoid Scrn Not Detected (NotDetected)
[2020-09-16 21:17] VITALS: BP 113/64; PULSE 61; TEMP 98
== END 2020-09-16 21:27 | disposition home or self-care (01) ==
LOC: EC 18:23
DX: G40.909 Epilepsy, unspecified, not intractable, without status epilepticus (principal); K21.9 Gastro-esophageal reflux disease without esophagitis
CPT/HCPCS: 36415; 70450; 72125; 80053; 80164; 80306; 81001; 83605; 85025; 93005; 96360; 99284

== ENCOUNTER 2020-09-17 21:46 | Emergency (ER) | payer BC ==
[2020-09-17] MEDS ORDERED: LORazepam 2 MG/ML INJ IV STA ×2 (21:53→22:04)
[2020-09-17] MEDS ORDERED: SODIUM CHLORIDE 0.9% 1,000 ML IV ONE (21:56)
[2020-09-17 21:59] LABS: Glucose,Whole Blood 104 mg/dL (75-99)
[2020-09-17] MEDS ORDERED: SODIUM CHLORIDE 0.9% 1,000 ML IV STA (21:59)
[2020-09-17] MEDS ORDERED: levETIRAcetam IV 1,000 MG in SALINE 1 100ML.BAG IVPB STA ×2 (22:00→22:17)
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
[2020-09-17] MEDS ORDERED: ETOMIDATE 2 MG/ML 10 ML VIAL IVP STA (22:02)
[2020-09-17] MEDS ORDERED: SUCCINYLCHOLINE CHLORIDE VIAL 200 MG/10 ML VIAL IV STA (22:11)
[2020-09-17] MEDS ORDERED: ONDANSETRON 4 MG/2 ML VIAL IVP STA (22:22)
--- NOTE | 2020-09-17 22:46 | XR ---
EXAMINATION TYPE: XR chest 1V portable DATE OF EXAM: 09/17/2020 COMPARISON: 03/26/2019 HISTORY: Respiratory failure TECHNIQUE: FINDINGS: There is endotracheal tube which is 3.5 cm into the right mainstem bronchus. There is compl ete atelectasis of the left lung. Heart and mediastinum are shifted to the left side. There is nasoga stric tube with the tip probably in the body of the stomach. Right lung is relatively clear. There is a minimal right suprahilar pulmonary infiltrate. IMPRESSION: There is malposition of the endotracheal tube in the right mainstem bronchus. Left pulmon pallavi atelectasis.
[2020-09-17] MEDS ORDERED: MIDAZOLAM HCL 50 MG in SODIUM CHLORIDE 0.9% 40 ML IV SCH (23:00)
[2020-09-17 23:26] LABS: Amphetamine Screen,Urine Not Detected (NotDetected); Barbiturate Screen,Urine Not Detected (NotDetected); Benzodiazepines Screen,Urine Detected (NotDetected); Cocaine Screen,Urine Not Detected (NotDetected); Methadone Screen, Urine Not Detected (NotDetected); Opiate Screen,Urine Not Detected (NotDetected); Oxycodone Screen, Urine Not Detected (NotDetected); Phencyclidine Screen,Urine Not Detected (NotDetected); Tricyclic Antidepressant,Urine Detected (NotDetected); Urn Cannabinoid Scrn Not Detected (NotDetected)
[2020-09-17 23:39] LABS: Allen Test Performed? Yes
[2020-09-17 23:40] LABS: ABG Base Excess -9.4 mmol/L; ABG HCO3 17 mmol/L (21-25); ABG PCO2 33 mmHg (35-45); ABG PH 7.31 (7.35-7.45); ABG PO2 108 mmHg (83-108); ABG TCO2 18 mmol/L (19-24)
[2020-09-17] MEDS ORDERED: ROCURONIUM 10 MG/ML (5 ML VIAL) IV STA (23:41)
--- NOTE | 2020-09-18 00:08 | CT ---
EXAMINATION TYPE: CT brain wo con DATE OF EXAM: 09/17/2020 COMPARISON: 09/16/2020 HISTORY: seizures. Pt. ventilated. unable to remove earrings. prior on PACS. CT DLP: 1099.4 mGycm. Automated Exposure Control for Dose Reduction was Utilized. TECHNIQUE: CT scan of the head is performed without contrast. FINDINGS: There is no acute intracranial hemorrhage, mass effect, or midline shift identified. The ventricles and sulci are within normal limits in size. The globes are intact and the visualized sin uses are clear. IMPRESSION: No acute intracranial hemorrhage, mass effect, or midline shift is seen.
[2020-09-18 00:43] LABS: ALT 53 U/L (4-34); AST 38 U/L (14-36); Acetaminophen <10.0 ug/mL; African American GFR (CKD) >90 (>60 ml/min/1.73 sqM); Albumin 3.7 g/dL (3.5-5.0); Alcohol <10 mg/dL; Alkaline Phosphatase 78 U/L (38-126); Anion Gap 7 mmol/L; Blood Urea Nitrogen 13 mg/dL (7-17); Calcium 8.1 mg/dL (8.4-10.2); Carbon Dioxide 16 mmol/L (22-30); Chloride 118 mmol/L (98-107); Glucose 109 mg/dL (74-99); Non-African American GFR(CKD) >90 (>60 ml/min/1.73 sqM); Potassium 4.6 mmol/L (3.5-5.1); Salicylate <1.0 mg/dL; Sodium 141 mmol/L (137-145); Total Bilirubin 0.6 mg/dL (0.2-1.3); Total Protein 6.5 g/dL (6.3-8.2)
[2020-09-18 00:48] LABS: Valproic Acid (Depakene) 14.6 ug/mL
[2020-09-18 00:55] VITALS: TEMP 97.9
[2020-09-18 01:07] LABS: Anisocytosis Slight; HCT 36.7 % (34.0-46.0); HGB 11.6 gm/dL (11.4-16.0); Hypochromasia Moderate; MCH 27.9 pg (25.0-35.0); MCHC 31.5 g/dL (31.0-37.0); MCV 88.7 fL (80.0-100.0); Mean Platelet Volume 8.1; Platelet Count 277 k/uL (150-450); RBC 4.14 m/uL (3.80-5.40); RDW 16.9 % (11.5-15.5)
--- NOTE | 2020-09-18 01:29 | XR ---
EXAM: XR Chest, 1 View CLINICAL HISTORY: ITS.REASON XR Reason: ET tube repositioning TECHNIQUE: Frontal view of the chest. COMPARISON: Prior 09/17/20 2233 hrs. FINDINGS: Lungs: Hazy opacity of the left lung likely atelectasis. Improved aeration compared to the prior. Low lung volumes. Pleural space: Unremarkable. No pneumothorax. Heart: Unremarkable. No cardiomegaly. Mediastinum: Unremarkable. Bones/joints: Unremarkable. Tubes, lines and devices: Endotracheal tube is in the right mainstem bronchus, 2 cm from the konrad. Slightly higher than the prior. Enteric tube tip in the proximal to mid stomach. IMPRESSION: 1. Endotracheal tube is in the right mainstem bronchus, 2 cm from the konrad. 2. Hazy opacity of the left lung likely atelectasis. Improved aeration compared to the prior.
--- NOTE | 2020-09-18 01:32 | XR ---
EXAM: XR Chest, 1 View CLINICAL HISTORY: ITS.REASON XR Reason: ET tube repositioning TECHNIQUE: Frontal view of the chest. COMPARISON: Prior study earlier today, 09/18/20 0011 hours FINDINGS: Lungs: Low lung volumes and left lung atelectasis, similar to the prior. Pleural space: Unremarkable. No pneumothorax. Heart: Unremarkable. No cardiomegaly. Mediastinum: Unremarkable. Bones/joints: Unremarkable. Tubes, lines and devices: Endotracheal tube is higher than on the prior with the tip likely 5 mm above the konrad, directed towards the right. Stable enteric tube with the tip in the proximal to mid stomach. IMPRESSION: 1. Endotracheal tube is higher than on the prior with the tip likely 5 mm above the konrad, directed towards the right. 2. Low lung volumes and left lung atelectasis, similar to the prior. <MYCVCSECTION> Communications: 09/18/20 01:48 Verify Receipt Verified receipt with [facility] in ER given to Dr. Nixon on 09/18 01:48 (-05:00)
[2020-09-18 02:25] VITALS: BP 119/63; PULSE 75; RESP 18
[2020-09-18 02:29] LABS: Lymphocytes # (M) 1.47 k/uL (1.0-4.8); Monocytes # (M) 0.63 k/uL (0-1.0); Neutrophils % (M) 70 %; Nucleated Red Blood Cells 0 /100 WBC (0-0); Ovalocytes Present; Total Cells Counted 100
[2020-09-18 02:30] LABS: Poikilocytosis (M) Present
== END 2020-09-18 02:34 | disposition other institution (70) ==
LOC: EC 21:46
DX: G40.901 Epilepsy, unspecified, not intractable, with status epilepticus (principal); R00.0 Tachycardia, unspecified; K21.9 Gastro-esophageal reflux disease without esophagitis; F41.0 Panic disorder [episodic paroxysmal anxiety]; Z79.899 Other long term (current) drug therapy; Z90.49 Acquired absence of other specified parts of digestive tract; Z90.710 Acquired absence of both cervix and uterus; Z90.721 Acquired absence of ovaries, unilateral; Z98.84 Bariatric surgery status
CPT/HCPCS: 99291; 99292; 96365; 96366 ×4; 96375 ×4; 31500; 36415; 36600; 93005 ×2; 80164; 80053; 82805; 84484; 85025; 80306; 80143; 80320; 80179; 71045 ×2; 70450; J0330; J2060; J2405; J2250; J2704; J1953; 94002

== ENCOUNTER 2020-10-23 17:53 | Emergency (ER) | payer BC ==
[2020-10-23 18:04] VITALS: BP 111/68; PULSE 107; RESP 18; TEMP 98.4
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
--- NOTE | 2020-10-23 18:53 | XR ---
EXAMINATION TYPE: XR chest 1V portable DATE OF EXAM: 10/23/2020 COMPARISON: 09/18/2020. HISTORY: Respiratory distress. TECHNIQUE: Single frontal view of the chest is obtained. FINDINGS: There is mild to moderate perihilar and bibasilar patchy opacities. No pleural effusion, o r pneumothorax seen. The cardiac silhouette size is within normal limits. The osseous structures a re intact. IMPRESSION: Bilateral infiltrates.
== END 2020-10-23 19:40 | disposition left against medical advice (07) ==
LOC: EC 17:53
DX: U07.1 COVID-19 (principal); K21.9 Gastro-esophageal reflux disease without esophagitis
CPT/HCPCS: 71045; 87635; 99285

== ENCOUNTER 2020-11-01 00:42 | Emergency (ER) | payer BC ==
[2020-11-01 00:54] VITALS: RESP 18
[2020-11-01] MEDS ORDERED: SODIUM CHLORIDE 0.9% 500 ML 500 ML IV STA (02:59)
[2020-11-01 04:45] LABS: Anisocytosis Slight; Basophils % (A) 0 %; Eosinophils % (A) 0 %; HCT 34.8 % (34.0-46.0); HGB 11.2 gm/dL (11.4-16.0); Hypochromasia Moderate; Lymphocytes # (A) 0.9 k/uL (1.0-4.8); Lymphocytes % (A) 8 %; MCH 27.4 pg (25.0-35.0); MCHC 32.2 g/dL (31.0-37.0); MCV 85.3 fL (80.0-100.0); Mean Platelet Volume 6.8; Monocytes # (A) 0.5 k/uL (0-1.0); Monocytes % (A) 4 %; Neutrophils # (A) 9.1 k/uL (1.3-7.7); Neutrophils % (A) 86 %; Platelet Count 423 k/uL (150-450); RBC 4.08 m/uL (3.80-5.40); RDW 16.2 % (11.5-15.5); WBC 10.6 k/uL (3.8-10.6)
[2020-11-01 05:15] LABS: ALT 27 U/L (4-34); AST 30 U/L (14-36); African American GFR (CKD) >90 (>60 ml/min/1.73 sqM); Albumin 3.9 g/dL (3.5-5.0); Alkaline Phosphatase 99 U/L (38-126); Anion Gap 7 mmol/L; Blood Urea Nitrogen 17 mg/dL (7-17); Calcium 8.8 mg/dL (8.4-10.2); Carbon Dioxide 25 mmol/L (22-30); Chloride 110 mmol/L (98-107); Glucose 101 mg/dL (74-99); Non-African American GFR(CKD) >90 (>60 ml/min/1.73 sqM); Potassium 4.5 mmol/L (3.5-5.1); Sodium 142 mmol/L (137-145); Total Bilirubin 0.2 mg/dL (0.2-1.3); Total Protein 6.5 g/dL (6.3-8.2)
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
[2020-11-01] MEDS ORDERED: KETOROLAC 15 MG/ML 1 ML VIAL IVP STA (05:45)
[2020-11-01] MEDS ORDERED: Acetaminophen-Codeine 300-30mg TAB PO STA (07:01)
[2020-11-01 07:40] VITALS: BP 113/78; PULSE 71; TEMP 97.8
== END 2020-11-01 07:30 | disposition home or self-care (01) ==
LOC: EC 00:42
DX: D64.9 Anemia, unspecified (principal); R41.0 Disorientation, unspecified; G40.909 Epilepsy, unspecified, not intractable, without status epilepticus; K21.9 Gastro-esophageal reflux disease without esophagitis; Z79.899 Other long term (current) drug therapy
CPT/HCPCS: 36415; 80053; 85025; 99285; 96374; 96361; J1885

== ENCOUNTER 2020-12-13 15:53 | Emergency (ER) | payer BC ==
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
[2020-12-13 16:17] VITALS: TEMP 98
[2020-12-13 16:21] LABS: Anisocytosis Slight; Basophils % (A) 0 %; Eosinophils # (A) 0.2 k/uL (0-0.7); Eosinophils % (A) 4 %; HGB 10.9 gm/dL (11.4-16.0); Hypochromasia Slight; Lymphocytes # (A) 1.4 k/uL (1.0-4.8); Lymphocytes % (A) 26 %; MCV 87.4 fL (80.0-100.0); Mean Platelet Volume 7.3; Monocytes # (A) 0.4 k/uL (0-1.0); Monocytes % (A) 7 %; Neutrophils # (A) 3.2 k/uL (1.3-7.7); Neutrophils % (A) 60 %; Platelet Count 225 k/uL (150-450); RBC 3.89 m/uL (3.80-5.40); RDW 16.6 % (11.5-15.5); WBC 5.2 k/uL (3.8-10.6)
--- NOTE | 2020-12-13 16:25 | XR ---
EXAMINATION TYPE: XR chest 1V portable DATE OF EXAM: 12/13/2020 COMPARISON: Chest x-ray 10/23/2020 HISTORY: Seizure TECHNIQUE: Single frontal view of the chest is obtained. FINDINGS: Exam is expiratory and rotated. No evident pneumothorax or pleural effusion. Cardiac media stinal silhouette is likely stable, heart appearance may be accentuated due to technique. Patchy yessenia hilar density is noted. IMPRESSION: Expiratory rotated exam. Difficult to exclude airspace disease on the basis of this exam , consider follow-up PA and lateral chest x-ray for better evaluation.
[2020-12-13 16:32] LABS: ALT 8 U/L (4-34); AST 20 U/L (14-36); African American GFR (CKD) >90 (>60 ml/min/1.73 sqM); Albumin 3.3 g/dL (3.5-5.0); Alkaline Phosphatase 61 U/L (38-126); Anion Gap 4 mmol/L; Blood Urea Nitrogen 20 mg/dL (7-17); Calcium 8.4 mg/dL (8.4-10.2); Carbon Dioxide 22 mmol/L (22-30); Chloride 114 mmol/L (98-107); Glucose 74 mg/dL (74-99); Non-African American GFR(CKD) >90 (>60 ml/min/1.73 sqM); Potassium 4.9 mmol/L (3.5-5.1); Sodium 140 mmol/L (137-145); Total Bilirubin <0.1 mg/dL (0.2-1.3); Total Protein 5.9 g/dL (6.3-8.2)
[2020-12-13 16:37] LABS: Valproic Acid (Depakene) 33.3 ug/mL
[2020-12-13] MEDS ORDERED: LORazepam 2 MG/ML INJ IV STA (16:43)
[2020-12-13 16:53] VITALS: RESP 18
--- NOTE | 2020-12-13 20:46 | XR ---
EXAMINATION TYPE: XR Hip Complete RT DATE OF EXAM: 12/13/2020 COMPARISON: None HISTORY: Pain TECHNIQUE: Two-view right hip FINDINGS: Femoral head articulates with the acetabulum. No acute fracture or dislocation is evident. Joint spaces preserved. Follow-up can be performed for continued pain. IMPRESSION: 1. Two-view right hip.
[2020-12-13 21:29] VITALS: BP 103/60; PULSE 70
== END 2020-12-13 21:28 | disposition home or self-care (01) ==
LOC: EC 15:53
DX: R56.9 Unspecified convulsions (principal); K21.9 Gastro-esophageal reflux disease without esophagitis; F41.0 Panic disorder [episodic paroxysmal anxiety]; Z79.82 Long term (current) use of aspirin
CPT/HCPCS: 99285 ×2; 96374; 36415; 93005; 80164; 80053; 80201; 85025; 73502; 71045; J2060

== ENCOUNTER 2020-12-24 22:12 | Emergency (ER) | payer BC ==
[2020-12-24] MEDS ORDERED: MORPHINE SULFATE 4 MG/ML SYRINGE IM STA (23:37)
--- NOTE | 2020-12-25 00:09 | XR ---
EXAMINATION TYPE: XR chest 2V DATE OF EXAM: 12/24/2020 COMPARISON: 12/13/2020 HISTORY: Chest pain TECHNIQUE: FINDINGS: Heart and mediastinum are normal. Lungs are clear. Diaphragm is normal. Bony thorax is inta ct. Pulmonary vascularity is normal. IMPRESSION: Normal chest. There is improved inspiration compared to old exam.
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
[2020-12-25] MEDS ORDERED: MORPHINE SULFATE 4 MG/ML SYRINGE IM STA (00:56)
[2020-12-25 01:22] VITALS: BP 115/71; PULSE 85; RESP 16; TEMP 98
== END 2020-12-25 01:15 | disposition home or self-care (01) ==
LOC: EC 22:12
DX: R07.9 Chest pain, unspecified (principal); K21.9 Gastro-esophageal reflux disease without esophagitis; G40.909 Epilepsy, unspecified, not intractable, without status epilepticus; G47.00 Insomnia, unspecified
CPT/HCPCS: 71046; 99283; 96372 ×2; J2270 ×2

== ENCOUNTER → 2020-12-28 | Outpatient (CLI) | payer BC | END | disposition home or self-care (01) | LOC: LABWHC1 08:46 | PROVIDERS: ATTEND Psychiatry & Neurology Pain Medicine | DX: Z51.81 Encounter for therapeutic drug level monitoring (principal) ==

== ENCOUNTER → 2020-12-29 | Outpatient (CLI) | payer BC ==
[2020-12-29 22:39] LABS: Valproic Acid (Depakene) 32.2 ug/mL (50.0-100.0)
[2020-12-29 22:46] LABS: African American GFR (CKD) 113.1 (60.0-200.0); Albumin/Globulin Ratio 1.74 (1.60-3.17); Anion Gap 11.6 mmol/L (4.00-12.00); Calcium 8.3 mg/dL (8.7-10.3); Carbon Dioxide 16.4 mmol/L (21.6-31.8); Globulin 2.3 g/dL (1.6-3.3); Non-African American GFR(CKD) 97.6 (60.0-200.0); Total Bilirubin 0.2 mg/dL (0.3-1.2); Total Protein 6.3 g/dL (6.2-8.2)
== END | disposition home or self-care (01) ==
LOC: LABWHC1 11:29
PROVIDERS: ATTEND Psychiatry & Neurology Pain Medicine
DX: Z51.81 Encounter for therapeutic drug level monitoring (principal)
CPT/HCPCS: 36415; 80053; 80164

== ENCOUNTER → 2021-03-25 | Outpatient (CLI) | payer BC | END | disposition home or self-care (01) | LOC: LABWHC1 11:32 | PROVIDERS: ATTEND Psychiatry & Neurology Pain Medicine | DX: Z51.81 Encounter for therapeutic drug level monitoring (principal); E16.2 Hypoglycemia, unspecified; Z79.899 Other long term (current) drug therapy | CPT/HCPCS: 36415; 80164 ==

== ENCOUNTER 2021-03-27 12:44 | Day surgery (SDC) | payer BC ==
[2021-03-23 16:14] VITALS: BMI 42.1
[~2021-03-27 12:44] MED LIST changes: -LIDOCAINE 1% 20 ML VIAL (10MG/ML) FOR IV START INTRADERMA PRN
[2021-03-27 13:56] VITALS: TEMP 97.3
[2021-03-27] MEDS ORDERED: ONDANSETRON 4 MG/2 ML VIAL ONE (14:02)
[2021-03-27] MEDS ORDERED: ONDANSETRON 4 MG/2 ML VIAL IVP ONE (14:04)
[2021-03-27] MEDS ORDERED: PROPOFOL 10 MG/ML 20 ML VIAL IV ONE (15:34)
[2021-03-27] MEDS ORDERED: LIDOCAINE 1% INJ 10MG/ML (20 ML MDV) ONE (15:34)
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
--- NOTE | 2021-03-27 15:44 | P.OP ---
Date of Procedure: 03/27/21 Preoperative Diagnosis: GERD Postoperative Diagnosis: Antral gastritis Mature gastric sleeve without obstruction No significant esophagitis Procedure(s) Performed: EGD Anesthesia: MAC Surgeon: Cali Jha Pathology: other (Antrum, esophagus) Condition: stable Disposition: PACU Description of Procedure: The patient's placed on the endoscopy table in the lateral position. She received IV sedation. The gastroscope placed oropharynx passed in the esophagus and stomach. Scope was then placed through the pylorus. First and second portion of the duodenum appeared normal. Scope was then brought back into the stomach. The antrum was inflamed. Biopsies performed. The scope was then brought back patient. Sleeve gastrectomy. There appeared to be no unsteady obstruction sleeve. The GE junction was at 47 is. There is no significant hiatal hernia. The distal esophagus appeared normal but is patient's symptoms of GERD a biopsies performed. The proximal esophagus appeared normal. Scope was withdrawn for patient.
[2021-03-27 16:34] VITALS: PULSE 67
[2021-03-27 16:48] VITALS: BP 130/75; RESP 18
== END 2021-03-27 16:59 | disposition home or self-care (01) ==
LOC: ORWHC2ENDO 12:44
PROVIDERS: ATTEND Surgery
DX: K29.50 Unspecified chronic gastritis without bleeding (principal); F41.9 Anxiety disorder, unspecified; G40.909 Epilepsy, unspecified, not intractable, without status epilepticus; K21.9 Gastro-esophageal reflux disease without esophagitis; Z79.1 Long term (current) use of non-steroidal anti-inflammatories (NSAID); Z82.49 Family history of ischemic heart disease and other diseases of the circulatory system; Z83.49 Family history of other endocrine, nutritional and metabolic diseases; Z90.49 Acquired absence of other specified parts of digestive tract; Z98.84 Bariatric surgery status; Z87.19 Personal history of other diseases of the digestive system
CPT/HCPCS: 43239; 88305; 88312; J2405; J2001; J2704

== ENCOUNTER 2021-04-03 22:44 | Emergency (ER) | payer BC ==
[2021-04-03 23:00] VITALS: TEMP 97.7
[2021-04-04] MEDS ORDERED: ONDANSETRON 4 MG/2 ML VIAL IVP STA (00:17)
[2021-04-04] MEDS ORDERED: KETOROLAC 15 MG/ML 1 ML VIAL IVP STA (00:17)
[2021-04-04] MEDS ORDERED: SODIUM CHLORIDE 0.9% 1,000 ML IV STA (00:17)
[2021-04-04 01:00] LABS: Basophils % (A) 0 %; Eosinophils # (A) 0.2 k/uL (0-0.7); Eosinophils % (A) 3 %; HCT 37.6 % (34.0-46.0); HGB 11.4 gm/dL (11.4-16.0); Hypochromasia Slight; Lymphocytes % (A) 21 %; MCH 27.2 pg (25.0-35.0); MCHC 30.3 g/dL (31.0-37.0); MCV 89.8 fL (80.0-100.0); Mean Platelet Volume 7.3; Monocytes # (A) 0.6 k/uL (0-1.0); Monocytes % (A) 6 %; Neutrophils # (A) 6.4 k/uL (1.3-7.7); Neutrophils % (A) 67 %; Platelet Count 279 k/uL (150-450); RBC 4.18 m/uL (3.80-5.40); RDW 15.3 % (11.5-15.5); WBC 9.5 k/uL (3.8-10.6)
--- NOTE | 2021-04-04 01:06 | XR ---
EXAMINATION TYPE: XR KUB DATE OF EXAM: 04/04/2021 COMPARISON: 07/20/2019 HISTORY: Abdominal pain TECHNIQUE: 2 views upright FINDINGS: Bowel gas pattern is normal. There is no sign of intestinal obstruction or pneumoperitoneum . There is retained fecal material throughout the large bowel. Lung bases are clear. Bony structures are intact. There are no calcifications over the kidneys. There are clips from cholecystectomy.. IMPRESSION: Nonacute abdomen. Constipation. No change.
[2021-04-04 01:07] LABS: ALT 33 U/L (4-34); AST 28 U/L (14-36); African American GFR (CKD) >90 (>60 ml/min/1.73 sqM); Albumin 3.8 g/dL (3.5-5.0); Alkaline Phosphatase 65 U/L (38-126); Amylase 55 U/L (30-110); Anion Gap 7 mmol/L; Blood Urea Nitrogen 25 mg/dL (7-17); Calcium 9.1 mg/dL (8.4-10.2); Carbon Dioxide 23 mmol/L (22-30); Chloride 109 mmol/L (98-107); Glucose 82 mg/dL (74-99); Lipase 192 U/L (23-300); Non-African American GFR(CKD) >90 (>60 ml/min/1.73 sqM); Sodium 139 mmol/L (137-145); Total Bilirubin 0.4 mg/dL (0.2-1.3); Total Protein 6.6 g/dL (6.3-8.2)
[2021-04-04 01:21] LABS: Appearance,Urine Cloudy (Clear); Bacteria,Urine Rare /hpf; Bilirubin,Urine Negative (Negative); Blood,Urine Negative (Negative); Calcium Oxalate Crystals,Urine Occasional /hpf; Color,Urine Yellow; Glucose,Urine (UA) Negative (Negative); Hyaline Casts,Urine 30 /lpf (0-2); Ketones,Urine Negative (Negative); Leukocyte Esterase,Urine Negative (Negative); Mucus,Urine Few /hpf; Nitrite,Urine Negative (Negative); Protein,Urine 1+ (Negative); RBC,Urine 1 /hpf (0-5); Squamous Epithelial Cell,Urine 2 /hpf (0-4); WBC,Urine 2 /hpf (0-5)
[2021-04-04 01:26] LABS: Specific Gravity,Urine 1.047 (1.001-1.035)
[2021-04-04] MEDS ORDERED: MAGNESIUM CITRATE 296 ML BOTTLE PO ONE (02:13)
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
[2021-04-04 02:40] VITALS: BP 113/72; PULSE 72; RESP 20
== END 2021-04-04 02:47 | disposition home or self-care (01) ==
LOC: EC 22:44
DX: K59.00 Constipation, unspecified (principal); G40.909 Epilepsy, unspecified, not intractable, without status epilepticus; K21.9 Gastro-esophageal reflux disease without esophagitis; Z79.899 Other long term (current) drug therapy; Z90.49 Acquired absence of other specified parts of digestive tract
CPT/HCPCS: 36415; 80053; 82150; 83690; 85025; 81001; 81025; 74018; 99284; 96375; 96361; 96374; J2405; J1885

== ENCOUNTER 2021-04-14 20:44 | Emergency (ER) | payer BC ==
[2021-04-14 20:49] VITALS: TEMP 97.8
[2021-04-14 21:11] VITALS: RESP 17
[2021-04-14 21:13] LABS: Glucose,Whole Blood 93 mg/dL (75-99)
[2021-04-14] MEDS ORDERED: SODIUM CHLORIDE 0.9% 1,000 ML IV STA (21:57)
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
[2021-04-14 22:16] LABS: Basophils % (A) 1 %; Eosinophils # (A) 0.2 k/uL (0-0.7); Eosinophils % (A) 3 %; HCT 32.1 % (34.0-46.0); Hypochromasia Slight; Lymphocytes # (A) 1.2 k/uL (1.0-4.8); Lymphocytes % (A) 23 %; MCH 27.1 pg (25.0-35.0); MCV 87.2 fL (80.0-100.0); Mean Platelet Volume 7.6; Monocytes # (A) 0.3 k/uL (0-1.0); Monocytes % (A) 5 %; Neutrophils # (A) 3.4 k/uL (1.3-7.7); Neutrophils % (A) 66 %; Platelet Count 265 k/uL (150-450); RBC 3.68 m/uL (3.80-5.40); RDW 15.4 % (11.5-15.5); WBC 5.1 k/uL (3.8-10.6)
--- NOTE | 2021-04-14 22:29 | XR ---
EXAMINATION TYPE: XR chest 2V DATE OF EXAM: 04/14/2021 COMPARISON: 12/24/2020 HISTORY: Weakness TECHNIQUE: 2 views FINDINGS: Heart and mediastinum are normal. Costophrenic angles are clear. There is left axillary pac emaker. There is no pleural effusion. IMPRESSION: There is poor inspiration. No pulmonary consolidation or heart failure. Inspiration decre ased compared to old exam.
[2021-04-14 22:30] LABS: ALT 521 U/L (4-34); African American GFR (CKD) >90 (>60 ml/min/1.73 sqM); Albumin 3.3 g/dL (3.5-5.0); Anion Gap 5 mmol/L; Blood Urea Nitrogen 22 mg/dL (7-17); Calcium 7.8 mg/dL (8.4-10.2); Carbon Dioxide 21 mmol/L (22-30); Chloride 110 mmol/L (98-107); Creatine Kinase 75 U/L (30-135); Glucose 92 mg/dL (74-99); Non-African American GFR(CKD) >90 (>60 ml/min/1.73 sqM); Sodium 136 mmol/L (137-145); Total Bilirubin 0.4 mg/dL (0.2-1.3); Total Protein 5.9 g/dL (6.3-8.2)
[2021-04-14 22:45] LABS: Phosphorus 3.9 mg/dL (2.5-4.5); Potassium 5.1 mmol/L (3.5-5.1)
[2021-04-14 22:46] LABS: AST 402 U/L (14-36); Alkaline Phosphatase 75 U/L (38-126); Magnesium 2.1 mg/dL (1.6-2.3)
[2021-04-14] MEDS ORDERED: ONDANSETRON 4 MG/2 ML VIAL IVP PRN (23:25)
[2021-04-14] MEDS ORDERED: NALOXONE 0.4 MG/ML 1 ML VIAL IV PRN (23:25)
[2021-04-14] MEDS ORDERED: SODIUM CHLORIDE 0.9% 1,000 ML IV SCH (23:30)
[2021-04-14 23:49] VITALS: BP 114/65; PULSE 80
[2021-04-15] MEDS ORDERED: PANTOPRAZOLE 40 MG/10 ML VIAL IV SCH (09:00)
== END 2021-04-14 23:49 | disposition home or self-care (01) ==
LOC: EC 20:44
DX: G40.909 Epilepsy, unspecified, not intractable, without status epilepticus (principal); K21.9 Gastro-esophageal reflux disease without esophagitis; Z79.899 Other long term (current) drug therapy
CPT/HCPCS: 36415; 71046; 80053; 82550; 83735; 84100; 85025; 93005; 96360; 99284

== ENCOUNTER 2021-04-17 21:43 | Emergency (ER) | payer BC ==
[2021-04-17 21:53] VITALS: RESP 18
[2021-04-17] MEDS ORDERED: SODIUM CHLORIDE 0.9% 500 ML 500 ML IV STA (21:59)
[2021-04-17 22:33] LABS: Basophils % (A) 0 %; Eosinophils # (A) 0.2 k/uL (0-0.7); Eosinophils % (A) 3 %; HCT 30.5 % (34.0-46.0); HGB 9.5 gm/dL (11.4-16.0); Hypochromasia Moderate; Lymphocytes # (A) 1.6 k/uL (1.0-4.8); Lymphocytes % (A) 24 %; MCH 27.9 pg (25.0-35.0); MCHC 31.2 g/dL (31.0-37.0); MCV 89.4 fL (80.0-100.0); Mean Platelet Volume 7.4; Monocytes # (A) 0.3 k/uL (0-1.0); Monocytes % (A) 5 %; Neutrophils # (A) 4.4 k/uL (1.3-7.7); Neutrophils % (A) 66 %; Platelet Count 245 k/uL (150-450); RBC 3.41 m/uL (3.80-5.40); RDW 15.3 % (11.5-15.5); WBC 6.7 k/uL (3.8-10.6)
[2021-04-17 22:51] LABS: ALT 144 U/L (4-34); AST 32 U/L (14-36); African American GFR (CKD) >90 (>60 ml/min/1.73 sqM); Alkaline Phosphatase 71 U/L (38-126); Anion Gap 5 mmol/L; Blood Urea Nitrogen 18 mg/dL (7-17); Calcium 7.9 mg/dL (8.4-10.2); Carbon Dioxide 22 mmol/L (22-30); Chloride 112 mmol/L (98-107); Glucose 96 mg/dL (74-99); Non-African American GFR(CKD) >90 (>60 ml/min/1.73 sqM); Potassium 4.3 mmol/L (3.5-5.1); Sodium 139 mmol/L (137-145); Total Bilirubin 0.2 mg/dL (0.2-1.3); Total Protein 5.4 g/dL (6.3-8.2)
[2021-04-17] MEDS ORDERED: KETOROLAC 15 MG/ML 1 ML VIAL IVP STA (23:44)
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
[2021-04-17 23:56] VITALS: BP 100/57; PULSE 89; TEMP 98.7
== END 2021-04-17 23:56 | disposition home or self-care (01) ==
LOC: EC 21:43
DX: G40.909 Epilepsy, unspecified, not intractable, without status epilepticus (principal); K21.9 Gastro-esophageal reflux disease without esophagitis; Z79.899 Other long term (current) drug therapy; Z79.82 Long term (current) use of aspirin
CPT/HCPCS: 36415; 80053; 85025; 99284; 96374; J1885

== ENCOUNTER → 2021-04-18 | Outpatient (CLI) | payer BC ==
[2021-04-18 14:56] LABS: African American GFR (CKD) >90 (>60 ml/min/1.73 sqM); Blood Urea Nitrogen 21 mg/dL (7-17); Non-African American GFR(CKD) >90 (>60 ml/min/1.73 sqM)
[2021-04-18 15:01] LABS: Valproic Acid (Depakene) 12.8 ug/mL
== END | disposition home or self-care (01) ==
LOC: LABT 13:20
PROVIDERS: ATTEND Psychiatry & Neurology Pain Medicine
DX: Z01.812 Encounter for preprocedural laboratory examination (principal); R56.9 Unspecified convulsions
CPT/HCPCS: 80164; 82565; 84520

== ENCOUNTER 2021-04-19 15:29 | Emergency (ER) | payer BC ==
[2021-04-19] MEDS ORDERED: SODIUM CHLORIDE 0.9% 1,000 ML IV STA (15:42)
[2021-04-19 15:46] VITALS: TEMP 98.9
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
[2021-04-19 16:38] LABS: Basophils % (A) 0 %; Eosinophils # (A) 0.2 k/uL (0-0.7); Eosinophils % (A) 4 %; HCT 35.4 % (34.0-46.0); HGB 10.5 gm/dL (11.4-16.0); Hypochromasia Moderate; Lymphocytes # (A) 1.1 k/uL (1.0-4.8); Lymphocytes % (A) 24 %; MCH 26.7 pg (25.0-35.0); MCHC 29.7 g/dL (31.0-37.0); MCV 89.8 fL (80.0-100.0); Mean Platelet Volume 7.7; Monocytes # (A) 0.2 k/uL (0-1.0); Monocytes % (A) 4 %; Neutrophils # (A) 3.1 k/uL (1.3-7.7); Neutrophils % (A) 66 %; Platelet Count 248 k/uL (150-450); RBC 3.94 m/uL (3.80-5.40); RDW 15.2 % (11.5-15.5); WBC 4.8 k/uL (3.8-10.6)
[2021-04-19 16:48] LABS: ALT 99 U/L (4-34); AST 31 U/L (14-36); African American GFR (CKD) >90 (>60 ml/min/1.73 sqM); Albumin 3.6 g/dL (3.5-5.0); Alkaline Phosphatase 76 U/L (38-126); Anion Gap 7 mmol/L; Blood Urea Nitrogen 18 mg/dL (7-17); Calcium 8.5 mg/dL (8.4-10.2); Carbon Dioxide 24 mmol/L (22-30); Chloride 107 mmol/L (98-107); Glucose 88 mg/dL (74-99); Non-African American GFR(CKD) >90 (>60 ml/min/1.73 sqM); Potassium 4.2 mmol/L (3.5-5.1); Sodium 138 mmol/L (137-145); Total Bilirubin 0.3 mg/dL (0.2-1.3); Total Protein 6.3 g/dL (6.3-8.2)
--- NOTE | 2021-04-19 17:31 | CT ---
EXAMINATION TYPE: CT brain wo con DATE OF EXAM: 04/19/2021 COMPARISON: 09/17/2020 HISTORY: seizures TECHNIQUE: CT scan of the head performed without contour CT DLP: 1070.4 mGycm Automated exposure control for dose reduction was used. FINDINGS: No acute intracranial hemorrhage, midline shift or mass effect. Darden-white matter differentiation is preserved. Posterior fossa structures are within normal limit. Ventricles and CSF spaces are normal in configuration. No acute orbital, osseous or soft tissue abnormality. Paranasal sinuses and mastoid air cells are well aerated. IMPRESSION: NO EVIDENCE FOR ACUTE INTRACRANIAL ABNORMALITY.
[2021-04-19] MEDS ORDERED: KETOROLAC 15 MG/ML 1 ML VIAL IVP STA (18:08)
[2021-04-19] MEDS ORDERED: diphenhydrAMINE 50 MG/ML 1 ML VIAL IVP STA (18:08)
[2021-04-19 18:11] VITALS: BP 121/77; PULSE 74; RESP 22
== END 2021-04-19 18:25 | disposition home or self-care (01) ==
LOC: EC 15:29
DX: G40.909 Epilepsy, unspecified, not intractable, without status epilepticus (principal); K21.9 Gastro-esophageal reflux disease without esophagitis; Z79.899 Other long term (current) drug therapy
CPT/HCPCS: 36415; 93005; 80053; 83605; 83735; 85025; 70450; 99284; 96374; 96375; 96361; J1200; J1885

== ENCOUNTER 2021-04-27 21:38 | Emergency (ER) | payer BC ==
[2021-04-27 21:46] VITALS: RESP 20; TEMP 97.4
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
[2021-04-27] MEDS ORDERED: ACETAMINOPHEN TAB 325 MG TAB PO STA (22:04)
[2021-04-27] MEDS ORDERED: IBUPROFEN 400 MG TAB PO STA (22:04)
[2021-04-27 22:31] LABS: Basophils % (A) 0 %; Eosinophils # (A) 0.3 k/uL (0-0.7); Eosinophils % (A) 5 %; HGB 10.3 gm/dL (11.4-16.0); Hypochromasia Slight; Lymphocytes # (A) 1.5 k/uL (1.0-4.8); Lymphocytes % (A) 26 %; MCH 27.1 pg (25.0-35.0); MCHC 31.4 g/dL (31.0-37.0); MCV 86.6 fL (80.0-100.0); Mean Platelet Volume 7.3; Monocytes # (A) 0.3 k/uL (0-1.0); Monocytes % (A) 5 %; Neutrophils # (A) 3.6 k/uL (1.3-7.7); Neutrophils % (A) 60 %; Platelet Count 360 k/uL (150-450); RBC 3.81 m/uL (3.80-5.40); RDW 15.5 % (11.5-15.5)
[2021-04-27 22:34] LABS: AST 28 U/L (14-36); African American GFR (CKD) >90 (>60 ml/min/1.73 sqM); Alkaline Phosphatase 73 U/L (38-126); Anion Gap 8 mmol/L; Blood Urea Nitrogen 22 mg/dL (7-17); Carbon Dioxide 23 mmol/L (22-30); Chloride 110 mmol/L (98-107); Glucose 88 mg/dL (74-99); Non-African American GFR(CKD) >90 (>60 ml/min/1.73 sqM); Sodium 141 mmol/L (137-145); Total Bilirubin 0.3 mg/dL (0.2-1.3); Total Protein 6.7 g/dL (6.3-8.2)
[2021-04-27 22:40] LABS: ALT 26 U/L (4-34); Potassium 4.3 mmol/L (3.5-5.1)
[2021-04-27 22:45] LABS: Valproic Acid (Depakene) <10.0 ug/mL
--- NOTE | 2021-04-27 22:55 | CT ---
EXAMINATION TYPE: CT brain wo con DATE OF EXAM: 04/27/2021 COMPARISON: 04/19/2021 INDICATION: fall DLP: 1041.4 mGycm, Automated exposure control for dose reduction was used. CONTRAST: None CT of the brain is performed utilizing 3 mm thick sections through the posterior fossa and 3 mm thick sections through the remaining calvarium. Study is performed within 24 hours of arrival to the hosp ital. No abnormal hyperdensity is present to suggest an acute intracranial hemorrhage. No mass lesion is evident. No acute infarcts are evident. Ventricles and sulci are appropriate for the patient age. Paranasal sinuses and mastoid air cells within the [id number] are clear. IMPRESSIONS: 1. Normal CT Brain
[2021-04-28 00:13] VITALS: BP 106/67; PULSE 87
== END 2021-04-28 00:13 | disposition home or self-care (01) ==
LOC: EC 21:38
DX: G40.909 Epilepsy, unspecified, not intractable, without status epilepticus (principal); K21.9 Gastro-esophageal reflux disease without esophagitis; Z79.899 Other long term (current) drug therapy
CPT/HCPCS: 36415; 70450; 80053; 80164; 80175; 85025; 93005; 99284

== ENCOUNTER 2021-05-04 23:14 | Emergency (ER) | payer BC ==
[2021-05-04] MEDS ORDERED: ONDANSETRON 4 MG/2 ML VIAL IVP STA (23:55)
[2021-05-04] MEDS ORDERED: SODIUM CHLORIDE 0.9% 1,000 ML IV STA (23:55)
[2021-05-04] MEDS ORDERED: HYDROmorphone 1 MG/ML 1 ML SYRINGE IVP STA (23:55)
[2021-05-04] MEDS ORDERED: PANTOPRAZOLE 40 MG/10 ML VIAL IVP STA (23:56)
[2021-05-05 00:35] LABS: Basophils % (A) 0 %; Eosinophils % (A) 0 %; HCT 28.5 % (34.0-46.0); Hypochromasia Marked; Lymphocytes # (A) 1.2 k/uL (1.0-4.8); Lymphocytes % (A) 9 %; MCH 26.5 pg (25.0-35.0); MCHC 30.4 g/dL (31.0-37.0); MCV 87.2 fL (80.0-100.0); Mean Platelet Volume 7.3; Monocytes # (A) 0.7 k/uL (0-1.0); Monocytes % (A) 5 %; Neutrophils # (A) 10.8 k/uL (1.3-7.7); Neutrophils % (A) 82 %; Platelet Count 334 k/uL (150-450); RBC 3.27 m/uL (3.80-5.40); RDW 15.2 % (11.5-15.5); WBC 13.2 k/uL (3.8-10.6)
[2021-05-05 00:46] LABS: ALT 24 U/L (4-34); AST 20 U/L (14-36); African American GFR (CKD) >90 (>60 ml/min/1.73 sqM); Albumin 3.3 g/dL (3.5-5.0); Alkaline Phosphatase 58 U/L (38-126); Blood Urea Nitrogen 16 mg/dL (7-17); Calcium 8.6 mg/dL (8.4-10.2); Carbon Dioxide 25 mmol/L (22-30); Glucose 104 mg/dL (74-99); Lipase 89 U/L (23-300); Non-African American GFR(CKD) >90 (>60 ml/min/1.73 sqM); Total Bilirubin <0.1 mg/dL (0.2-1.3); Total Protein 5.8 g/dL (6.3-8.2)
[2021-05-05 00:53] LABS: HGB 8.6 gm/dL (11.4-16.0)
[2021-05-05 00:59] LABS: Anion Gap 4 mmol/L; Chloride 108 mmol/L (98-107); Potassium 4.6 mmol/L (3.5-5.1); Sodium 137 mmol/L (137-145)
[2021-05-05 01:30] LABS: Appearance,Urine Clear (Clear); Bilirubin,Urine Negative (Negative); Blood,Urine Negative (Negative); Color,Urine Yellow; Glucose,Urine (UA) Negative (Negative); Ketones,Urine Negative (Negative); Leukocyte Esterase,Urine Negative (Negative); Nitrite,Urine Negative (Negative); Protein,Urine Negative (Negative); Specific Gravity,Urine 1.026 (1.001-1.035); Urobilinogen,Urine <2.0 mg/dL (<2.0)
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
[2021-05-05] MEDS ORDERED: HYDROmorphone 0.5 MG/0.5 ML SYRINGE IVP STA (02:29)
[2021-05-05 02:47] VITALS: BP 116/75; PULSE 65; RESP 20; TEMP 98
== END 2021-05-05 02:47 | disposition home or self-care (01) ==
LOC: EC 23:14
DX: D64.9 Anemia, unspecified (principal); R10.30 Lower abdominal pain, unspecified; K21.9 Gastro-esophageal reflux disease without esophagitis; G40.909 Epilepsy, unspecified, not intractable, without status epilepticus; Z79.899 Other long term (current) drug therapy
CPT/HCPCS: 36415; 80053; 83605; 83690; 85025; 82272; 81003; 99284; 96374; 96376; 96375; 96361; J2405; J1170 ×2; C9113

== ENCOUNTER 2021-05-05 20:04 | Emergency (ER) | payer BC ==
[2021-05-05] MEDS ORDERED: ONDANSETRON ODT 4 MG TAB PO STA (21:36)
[2021-05-05] MEDS ORDERED: DIPHENOX-ATROP 2.5-0.025 MG 1 EACH TAB PO STA (21:36)
[2021-05-05 21:49] LABS: Basophils % (A) 0 %; Eosinophils # (A) 0.2 k/uL (0-0.7); Eosinophils % (A) 3 %; HCT 30.4 % (34.0-46.0); HGB 9.1 gm/dL (11.4-16.0); Hypochromasia Moderate; Lymphocytes % (A) 29 %; MCHC 29.8 g/dL (31.0-37.0); MCV 87.3 fL (80.0-100.0); Mean Platelet Volume 7.1; Monocytes # (A) 0.5 k/uL (0-1.0); Monocytes % (A) 7 %; Neutrophils # (A) 4.1 k/uL (1.3-7.7); Neutrophils % (A) 59 %; Platelet Count 333 k/uL (150-450); RBC 3.49 m/uL (3.80-5.40); RDW 15.2 % (11.5-15.5)
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
[2021-05-05 21:58] LABS: ALT 30 U/L (4-34); AST 30 U/L (14-36); African American GFR (CKD) >90 (>60 ml/min/1.73 sqM); Albumin 3.5 g/dL (3.5-5.0); Alkaline Phosphatase 69 U/L (38-126); Anion Gap 5 mmol/L; Blood Urea Nitrogen 22 mg/dL (7-17); Calcium 8.6 mg/dL (8.4-10.2); Carbon Dioxide 25 mmol/L (22-30); Chloride 108 mmol/L (98-107); Glucose 91 mg/dL (74-99); Magnesium 1.9 mg/dL (1.6-2.3); Non-African American GFR(CKD) >90 (>60 ml/min/1.73 sqM); Phosphorus 4.1 mg/dL (2.5-4.5); Potassium 4.2 mmol/L (3.5-5.1); Sodium 138 mmol/L (137-145); Total Bilirubin 0.3 mg/dL (0.2-1.3); Total Protein 6.2 g/dL (6.3-8.2)
--- NOTE | 2021-05-05 22:05 | XR ---
EXAMINATION TYPE: XR KUB portable DATE OF EXAM: 05/05/2021 COMPARISON: 04/04/2021 HISTORY: Abdominal pain. Partial hysterectomy. TECHNIQUE: 2 views upright FINDINGS: There is no sign of intestinal obstruction or pneumoperitoneum. Fecal pattern is normal. Th ere is no evidence of a mass. There are clips from cholecystectomy. There is mild subsegmental atelec tasis left lung base. There are no calcifications over the kidneys. IMPRESSION: Nonacute abdomen. There is decrease in the fecal material compared to old exam.
[2021-05-05] MEDS ORDERED: ONDANSETRON 4 MG ODT STARTER PACK 2 TAB BTL PO STA (22:13)
[2021-05-05] MEDS ORDERED: DIPHENOX-ATROP STARTER PACK 8 TAB BTL PO STA (22:13)
[2021-05-05] MEDS ORDERED: Acetaminophen-Codeine 300-30mg TAB PO STA (22:13)
[2021-05-05] MEDS ORDERED: ACET/COD 300 MG/30 MG STARTER PACK 6 TAB BTL PO STA (22:13)
[2021-05-05 22:35] VITALS: BP 127/77; PULSE 71; RESP 22; TEMP 98
== END 2021-05-05 22:35 | disposition home or self-care (01) ==
LOC: EC 20:04
DX: R10.13 Epigastric pain (principal); R10.30 Lower abdominal pain, unspecified; R10.84 Generalized abdominal pain; R19.7 Diarrhea, unspecified; R11.2 Nausea with vomiting, unspecified; K21.9 Gastro-esophageal reflux disease without esophagitis; G40.909 Epilepsy, unspecified, not intractable, without status epilepticus; Z90.49 Acquired absence of other specified parts of digestive tract; Z79.899 Other long term (current) drug therapy
CPT/HCPCS: 99284; 36415; 80053; 83735; 84100; 85025; 74018; S0119

== ENCOUNTER 2021-05-08 19:52 | Emergency (ER) | payer BC ==
[2021-05-08 20:27] VITALS: TEMP 97.7
[2021-05-08] MEDS ORDERED: MORPHINE SULFATE 4 MG/ML SYRINGE IM STA (20:37)
[2021-05-08 21:20] LABS: Basophils % (A) 0 %; Eosinophils # (A) 0.5 k/uL (0-0.7); Eosinophils % (A) 6 %; HCT 33.4 % (34.0-46.0); HGB 10.4 gm/dL (11.4-16.0); Hypochromasia Moderate; Lymphocytes # (A) 1.7 k/uL (1.0-4.8); Lymphocytes % (A) 22 %; MCH 26.8 pg (25.0-35.0); MCHC 31.1 g/dL (31.0-37.0); MCV 86.1 fL (80.0-100.0); Mean Platelet Volume 8.1; Monocytes # (A) 0.4 k/uL (0-1.0); Monocytes % (A) 5 %; Neutrophils % (A) 64 %; Platelet Count 367 k/uL (150-450); RBC 3.88 m/uL (3.80-5.40); RDW 15.3 % (11.5-15.5); WBC 7.9 k/uL (3.8-10.6)
[2021-05-08 21:26] LABS: ALT 22 U/L (4-34); AST 25 U/L (14-36); African American GFR (CKD) >90 (>60 ml/min/1.73 sqM); Albumin 3.4 g/dL (3.5-5.0); Alkaline Phosphatase 63 U/L (38-126); Anion Gap 5 mmol/L; Blood Urea Nitrogen 17 mg/dL (7-17); Calcium 8.7 mg/dL (8.4-10.2); Carbon Dioxide 24 mmol/L (22-30); Chloride 105 mmol/L (98-107); Glucose 99 mg/dL (74-99); Non-African American GFR(CKD) >90 (>60 ml/min/1.73 sqM); Potassium 5.1 mmol/L (3.5-5.1); Sodium 134 mmol/L (137-145); Total Bilirubin 0.3 mg/dL (0.2-1.3); Total Protein 6.2 g/dL (6.3-8.2)
[2021-05-08 21:54] LABS: Appearance,Urine Clear (Clear); Bilirubin,Urine Negative (Negative); Blood,Urine Negative (Negative); Color,Urine Light Yellow; Glucose,Urine (UA) Negative (Negative); Ketones,Urine Negative (Negative); Leukocyte Esterase,Urine Negative (Negative); Nitrite,Urine Negative (Negative); Protein,Urine Negative (Negative); Specific Gravity,Urine 1.019 (1.001-1.035); Urobilinogen,Urine <2.0 mg/dL (<2.0)
--- NOTE | 2021-05-08 21:57 | US ---
EXAMINATION TYPE: US venous doppler duplex LE RT DATE OF EXAM: 05/08/2021 9:32 PM COMPARISON: NONE CLINICAL HISTORY: pain/swelling. Pain and swelling in right leg. No hx of DVT. Patient does not take blood thinners. SIDE PERFORMED: Right TECHNIQUE: The lower extremity deep venous system is examined utilizing real time linear array sonog amna with graded compression, doppler sonography and color-flow sonography. VESSELS IMAGED: Common Femoral Vein Deep Femoral Vein Greater Saphenous Vein * Femoral Vein Popliteal Vein Small Saphenous Vein * Proximal Calf Veins (* superficial vessels) Right Leg: No evidence of DVT in veins imaged at this time. IMPRESSION: No evidence of deep vein thrombosis in the right leg.
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
[2021-05-08] MEDS ORDERED: traMADol 50 MG STARTER PACK 3 TAB BTL PO STA (22:22)
[2021-05-08 22:29] VITALS: BP 118/68; PULSE 76; RESP 16
== END 2021-05-08 22:29 | disposition home or self-care (01) ==
LOC: EC 19:52
DX: M79.89 Other specified soft tissue disorders (principal); M79.604 Pain in right leg; K21.9 Gastro-esophageal reflux disease without esophagitis; G40.909 Epilepsy, unspecified, not intractable, without status epilepticus; Z79.899 Other long term (current) drug therapy
CPT/HCPCS: 36415; 80053; 85025; 81003; 93971; 99284; 96372; J2270

== ENCOUNTER 2021-06-02 04:22 | Emergency (ER) | payer BC ==
[2021-06-02 04:28] VITALS: TEMP 97.9
[2021-06-02 05:24] LABS: African American GFR (CKD) >90 (>60 ml/min/1.73 sqM); Anion Gap 5 mmol/L; Blood Urea Nitrogen 24 mg/dL (7-17); Calcium 8.4 mg/dL (8.4-10.2); Carbon Dioxide 26 mmol/L (22-30); Chloride 107 mmol/L (98-107); Glucose 85 mg/dL (74-99); Non-African American GFR(CKD) >90 (>60 ml/min/1.73 sqM); Sodium 138 mmol/L (137-145)
[2021-06-02 05:29] LABS: Valproic Acid (Depakene) 33.5 ug/mL
[2021-06-02 05:31] LABS: Basophils % (A) 0 %; Eosinophils # (A) 0.2 k/uL (0-0.7); Eosinophils % (A) 4 %; HCT 31.4 % (34.0-46.0); HGB 9.8 gm/dL (11.4-16.0); Hypochromasia Slight; Lymphocytes # (A) 1.7 k/uL (1.0-4.8); Lymphocytes % (A) 27 %; MCHC 31.1 g/dL (31.0-37.0); MCV 83.4 fL (80.0-100.0); Mean Platelet Volume 7.1; Monocytes # (A) 0.4 k/uL (0-1.0); Monocytes % (A) 6 %; Neutrophils # (A) 3.6 k/uL (1.3-7.7); Neutrophils % (A) 58 %; Platelet Count 324 k/uL (150-450); RBC 3.77 m/uL (3.80-5.40); RDW 15.7 % (11.5-15.5); WBC 6.1 k/uL (3.8-10.6)
[2021-06-02] MEDS ORDERED: DIVALPROEX 500 MG TABLET.DR PO STA (06:36)
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
[2021-06-02 06:53] VITALS: BP 120/68; PULSE 82; RESP 17
== END 2021-06-02 06:52 | disposition home or self-care (01) ==
LOC: EC 04:22
DX: G40.909 Epilepsy, unspecified, not intractable, without status epilepticus (principal); K21.9 Gastro-esophageal reflux disease without esophagitis; Z79.899 Other long term (current) drug therapy
CPT/HCPCS: 36415; 80048; 80164; 85025; 99284

== ENCOUNTER 2021-06-05 12:17 | Day surgery (SDC) | payer BC ==
[2021-06-02 12:49] VITALS: BMI 46.9
[2021-06-05] MEDS: LACTATED RINGERS 1,000 ML IV SCH ×2 (12:55→14:08)
[2021-06-05 12:57] VITALS: TEMP 97
[2021-06-05] MEDS ORDERED: PROPOFOL 10 MG/ML 20 ML VIAL IV ONE (14:09)
[2021-06-05] MEDS ORDERED: LIDOCAINE 1% INJ 10MG/ML (20 ML MDV) ONE (14:09)
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
--- NOTE | 2021-06-05 14:24 | P.OP ---
Date of Procedure: 06/05/21 Preoperative Diagnosis: Anemia Rectal bleeding Postoperative Diagnosis: Normal colonoscopy left colon. Poor colonic prep was large amount of solid stool in: Procedure(s) Performed: Colonoscopy Anesthesia: MAC Surgeon: Cali Jha Pathology: none sent Condition: stable Disposition: PACU Description of Procedure: The patient's placed on the endoscopy table in the lateral position. She received IV sedation. Digital rectal exam was performed which revealed a few external hemorrhoids. Flexible colonoscope was then placed patient anus passed with colon. Scope could not be passed beyond the left colon secondary to a large amount of solid stool. Scope was then withdrawn. There is a large amount stool within the colon. This limited the view of the mucosa. No obvious abnormality could be seen in the left and sigmoid colon. Scope back the rectum this appeared normal. Scope withdrawn for patient. Colonoscopy did not visualize the transverse colon. It was felt that the patient may have had bleeding from hemorrhoids. She will need to be reprepped and rescheduled for colonoscopy
[2021-06-05 14:30] VITALS: PULSE 73; RESP 16
[2021-06-05 14:43] VITALS: BP 101/61
== END 2021-06-05 15:34 | disposition home or self-care (01) ==
LOC: ORWHC2ENDO 12:17
PROVIDERS: ATTEND Surgery
DX: K62.5 Hemorrhage of anus and rectum (principal); K21.9 Gastro-esophageal reflux disease without esophagitis; G40.909 Epilepsy, unspecified, not intractable, without status epilepticus; F41.9 Anxiety disorder, unspecified; Z79.899 Other long term (current) drug therapy
CPT/HCPCS: 45378; J2001; J2704

== ENCOUNTER 2021-06-06 13:03 | Emergency (ER) | payer BC ==
[2021-06-06 13:28] VITALS: BP 137/83; PULSE 84; RESP 19; TEMP 98.7
[2021-06-06] MEDS ORDERED: MORPHINE SULFATE 4 MG/ML SYRINGE IM STA (15:43)
[2021-06-06] MEDS ORDERED: ACET/COD 300 MG/30 MG STARTER PACK 6 TAB BTL PO STA (15:43)
[2021-06-06] MEDS ORDERED: AMOXIC-POT CLAV 875MG STARTER PACK 2 TAB BTL PO STA (15:43)
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
== END 2021-06-06 15:57 | disposition home or self-care (01) ==
LOC: EC 13:03
DX: K04.7 Periapical abscess without sinus (principal); K21.9 Gastro-esophageal reflux disease without esophagitis; G40.909 Epilepsy, unspecified, not intractable, without status epilepticus; Z79.899 Other long term (current) drug therapy
CPT/HCPCS: 99282; 96372; J2270

== ENCOUNTER 2021-06-15 10:53 | Day surgery (SDC) | payer BC ==
[2021-06-14 10:27] VITALS: BMI 48.3
[~2021-06-15 10:53] MED LIST changes: +LIDOCAINE 1% (10MG/ML) FOR IV START INTRADERMA PRN
[2021-06-15 12:15] VITALS: TEMP 96.2
[2021-06-15] MEDS ORDERED: PROPOFOL 10 MG/ML 20 ML VIAL IV ONE (12:40)
[2021-06-15] MEDS ORDERED: LIDOCAINE 1% INJ 10MG/ML (20 ML MDV) ONE (12:40)
[2021-06-15] MEDS ORDERED: MIDAZOLAM 2 MG/2 ML VIAL ONE (12:40)
[2021-06-15] MEDS ORDERED: .fentaNYL (PF) 50 MCG/ML AMP ONE (12:40)
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
--- NOTE | 2021-06-15 13:13 | P.OP ---
Date of Procedure: 06/15/21 Preoperative Diagnosis: Anemia, GI bleed Postoperative Diagnosis: Normal colon, poor colonic prep Procedure(s) Performed: Colonoscopy Anesthesia: MAC Surgeon: Cali Jha Pathology: none sent Condition: stable Disposition: PACU Description of Procedure: Patient's placed on the endoscopy table in the lateral position. She received IV sedation. Digital rectal exam was performed which revealed a large amount liquid brown stool. The flexible colonoscope was then placed patient anus. Scope was placed throughout the colon. The scope was passed beyond the transverse colon secondary to poor colonic prep. This point scope was withdrawn. The transverse colon, descending colon and sigmoid colon appeared normal. However there was significant liquid brown stool which limited the view of the mucosa. Scope was brought back the rectum and this appeared normal. Scope withdrawn for patient.
[2021-06-15 13:32] VITALS: RESP 16
[2021-06-15 13:57] VITALS: PULSE 84
[2021-06-15] MEDS ORDERED: HYDROcodone/APAP 10-325MG 1 EACH TAB ONE (14:03)
[2021-06-15] MEDS ORDERED: HYDROcodone/APAP 10-325MG 1 EACH TAB PO ONE (14:04)
[2021-06-15 14:18] VITALS: BP 133/77
== END 2021-06-15 14:40 | disposition home or self-care (01) ==
LOC: ORWHC2ENDO 10:53
PROVIDERS: ATTEND Surgery
DX: D64.9 Anemia, unspecified (principal); K21.9 Gastro-esophageal reflux disease without esophagitis; G40.909 Epilepsy, unspecified, not intractable, without status epilepticus; Z98.84 Bariatric surgery status; K29.70 Gastritis, unspecified, without bleeding; Z79.899 Other long term (current) drug therapy
CPT/HCPCS: 45378; J2250; J2001; J3010; J2704

== ENCOUNTER 2021-06-16 22:58 | Observation (INO) | payer BC ==
--- NOTE | 2021-06-17 00:21 | XR ---
EXAMINATION TYPE: XR KUB DATE OF EXAM: 06/16/2021 COMPARISON: 05/05/2021 HISTORY: Abdominal pain TECHNIQUE: 2 views FINDINGS: Bowel gas pattern is normal. There is no sign of intestinal obstruction or pneumoperitoneum . There are clips from cholecystectomy. There is no evidence of a mass. Lung bases are clear. There a re surgical clips over the left upper quadrant. IMPRESSION: Previous surgery. Nonacute abdomen. No adverse change.
[2021-06-17] MEDS ORDERED: SODIUM CHLORIDE 0.9% 1,000 ML IV STA (02:32)
[2021-06-17] MEDS ORDERED: MORPHINE SULFATE 4 MG/ML SYRINGE IV STA (02:32)
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
[2021-06-17 03:40] LABS: Basophils % (A) 0 %; Eosinophils # (A) 0.1 k/uL (0-0.7); Eosinophils % (A) 2 %; HCT 31.3 % (34.0-46.0); HGB 9.6 gm/dL (11.4-16.0); Hypochromasia Slight; Lymphocytes # (A) 1.4 k/uL (1.0-4.8); Lymphocytes % (A) 21 %; MCH 25.4 pg (25.0-35.0); MCHC 30.8 g/dL (31.0-37.0); MCV 82.4 fL (80.0-100.0); Mean Platelet Volume 7.1; Monocytes # (A) 0.4 k/uL (0-1.0); Monocytes % (A) 6 %; Neutrophils # (A) 4.4 k/uL (1.3-7.7); Neutrophils % (A) 68 %; Platelet Count 299 k/uL (150-450); RDW 15.9 % (11.5-15.5); WBC 6.5 k/uL (3.8-10.6)
[2021-06-17 03:50] LABS: ALT 14 U/L (4-34); AST 20 U/L (14-36); African American GFR (CKD) >90 (>60 ml/min/1.73 sqM); Albumin 3.5 g/dL (3.5-5.0); Alkaline Phosphatase 56 U/L (38-126); Amylase 45 U/L (30-110); Anion Gap 7 mmol/L; Blood Urea Nitrogen 19 mg/dL (7-17); Calcium 8.3 mg/dL (8.4-10.2); Carbon Dioxide 22 mmol/L (22-30); Chloride 106 mmol/L (98-107); Glucose 84 mg/dL (74-99); Lipase 103 U/L (23-300); Non-African American GFR(CKD) >90 (>60 ml/min/1.73 sqM); Potassium 4.7 mmol/L (3.5-5.1); Sodium 135 mmol/L (137-145); Total Bilirubin 0.1 mg/dL (0.2-1.3); Total Protein 6.1 g/dL (6.3-8.2)
[2021-06-17] MEDS ORDERED: ONDANSETRON 4 MG/2 ML VIAL IVP PRN (04:08)
[2021-06-17] MEDS ORDERED: NALOXONE 0.4 MG/ML 1 ML VIAL IV PRN (04:08)
--- NOTE | 2021-06-17 04:13 | CT ---
EXAMINATION TYPE: CT abdomen pelvis w con DATE OF EXAM: 06/17/2021 COMPARISON: 07/21/2020 HISTORY: abd pain after recent colonscopy CT DLP: 2312.1 mGycm Automated exposure control for dose reduction was used. CONTRAST: Performed with IV Contrast, patient injected with 100 mL of Isovue 300 There is mild subsegmental atelectasis at the lung bases. There is no pleural effusion. Heart size is normal. There are clips from gastric bariatric surgery. T here are clips from cholecystectomy. The bile ducts are not dilated. Spleen is intact. There is no pa ncreatic mass. Liver shows no focal defect. There is no adrenal mass. Kidneys show satisfactory contrast opacification. There is no hydronephrosi s. There is 2 mm calculus anterior left kidney. There is no evidence of renal obstruction. Ureters ar e not dilated. There is no retroperitoneal adenopathy. Appendix is posterior and appears normal. Ther e is some minimal stranding in the left paracolic gutter. There is some mild stranding also in the la teral right paracolic gutter. Bladder distends smoothly. There is no inguinal hernia. There is mild f at stranding around the mid sigmoid colon. There is no evidence of free air. There is no bowel obstruction. The lumbar vertebra have normal alignment. Posterior elements are intact. There is no compression fra cture. Bony pelvis is intact. The hip joints are intact. IMPRESSION: There is some mild free fluid in the abdomen as above. Minimal stranding at the mid sigmoid colon sug gestive of colitis or diverticulitis. This appears new compared to old exam. Fluid is new compared to old exam. No free air. No sign of a perforation. There is some mild atelectasis at the posterior lung bases which is new compared to old exam.
[2021-06-17] MEDS: HYDROmorphone 1 MG/ML 1 ML SYRINGE IVP PRN ×4 (05:06→18:00)
[2021-06-17 05:30] LABS: Appearance,Urine Clear (Clear); Bilirubin,Urine Negative (Negative); Blood,Urine Negative (Negative); Color,Urine Light Yellow; Glucose,Urine (UA) Negative (Negative); Ketones,Urine Negative (Negative); Leukocyte Esterase,Urine Negative (Negative); Nitrite,Urine Negative (Negative); PH, Urine 6.5 (5.0-8.0); Protein,Urine Negative (Negative); Specific Gravity,Urine 1.033 (1.001-1.035); Urobilinogen,Urine <2.0 mg/dL (<2.0)
[2021-06-17] MEDS ORDERED: AMPICILLIN-SULBACTAM 3 GM in SODIUM CHLORIDE 0.9% 100 ML IVPB STA (05:57)
[2021-06-17] MEDS: SODIUM CHLORIDE 0.9% 1,000 ML IV SCH ×3 (07:53→20:49)
[2021-06-17] MEDS ORDERED: PANTOPRAZOLE 40 MG/10 ML VIAL IV SCH (09:00)
[2021-06-17] MEDS ORDERED: LORazepam 0.5 MG TAB PO PRN (09:31)
[2021-06-17] MEDS ORDERED: CYCLOBENZAPRINE 10 MG TAB PO PRN (09:31)
[2021-06-17] MEDS ORDERED: polyethylene glycoL 3350 17 GM POWD.PACK PO PRN (09:36)
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
[2021-06-17] MEDS ORDERED: LINZESS 290 MCG PO PRN (09:45)
[2021-06-17] MEDS ORDERED: NON FORMULARY DRUG (Clobazam [Clobazam] 20 MG Tablet) PO SCH (10:30)
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
[2021-06-17] MEDS: lamoTRIgine 25 MG TAB PO SCH ×2 (13:27→20:46)
[2021-06-17] MEDS: HYDROcodone/APAP 10-325MG 1 EACH TAB PO PRN ×2 (13:28→20:46)
[2021-06-17] MEDS: AMPICILLIN-SULBACTAM 3 GM in SODIUM CHLORIDE 0.9% 100 ML IVPB SCH ×2 (14:38→23:22)
[2021-06-17] MEDS: PANTOPRAZOLE 40 MG TABLET PO SCH (17:21)
[2021-06-17] MEDS: KETOROLAC 30 MG/ML 1 ML VIAL IVP PRN (17:25)
[2021-06-17] MEDS: QUEtiapine 200 MG TAB PO SCH (20:46)
[2021-06-17] MEDS: DIVALPROEX 500 MG TABLET.DR PO SCH (20:46)
[2021-06-17] MEDS: atenoloL 25 MG TAB PO SCH (20:46)
[2021-06-17] MEDS: NON FORMULARY DRUG (Clobazam [Clobazam] 10 MG Tablet) PO SCH (22:16)
[2021-06-18] MEDS: KETOROLAC 30 MG/ML 1 ML VIAL IVP PRN (01:41)
[2021-06-18] MEDS: HYDROcodone/APAP 10-325MG 1 EACH TAB PO PRN (04:05)
[2021-06-18] MEDS: SODIUM CHLORIDE 0.9% 1,000 ML IV SCH ×3 (04:07→18:02)
[2021-06-18 06:06] LABS: Basophils % (A) 0 %; Eosinophils # (A) 0.1 k/uL (0-0.7); Eosinophils % (A) 4 %; HCT 29.3 % (34.0-46.0); Hypochromasia Moderate; Lymphocytes # (A) 1.4 k/uL (1.0-4.8); Lymphocytes % (A) 43 %; MCH 25.8 pg (25.0-35.0); MCHC 30.8 g/dL (31.0-37.0); MCV 83.8 fL (80.0-100.0); Mean Platelet Volume 7.9; Monocytes # (A) 0.3 k/uL (0-1.0); Monocytes % (A) 8 %; Neutrophils # (A) 1.4 k/uL (1.3-7.7); Neutrophils % (A) 43 %; Platelet Count 241 k/uL (150-450); RBC 3.49 m/uL (3.80-5.40); WBC 3.4 k/uL (3.8-10.6)
[2021-06-18 06:18] LABS: ALT 17 U/L (4-34); AST 22 U/L (14-36); African American GFR (CKD) >90 (>60 ml/min/1.73 sqM); Alkaline Phosphatase 61 U/L (38-126); Anion Gap 4 mmol/L; Blood Urea Nitrogen 12 mg/dL (7-17); Calcium 7.6 mg/dL (8.4-10.2); Carbon Dioxide 25 mmol/L (22-30); Chloride 110 mmol/L (98-107); Glucose 86 mg/dL (74-99); Lipase 86 U/L (23-300); Magnesium 2.1 mg/dL (1.6-2.3); Non-African American GFR(CKD) >90 (>60 ml/min/1.73 sqM); Phosphorus 3.9 mg/dL (2.5-4.5); Potassium 4.2 mmol/L (3.5-5.1); Sodium 139 mmol/L (137-145); Total Bilirubin 0.2 mg/dL (0.2-1.3); Total Protein 5.4 g/dL (6.3-8.2)
[2021-06-18] MEDS: HYDROmorphone 1 MG/ML 1 ML SYRINGE IVP PRN ×2 (07:02→13:41)
[2021-06-18] MEDS: AMPICILLIN-SULBACTAM 3 GM in SODIUM CHLORIDE 0.9% 100 ML IVPB SCH ×2 (09:05→16:11)
[2021-06-18] MEDS: DIVALPROEX 500 MG TABLET.DR PO SCH ×2 (09:05→21:35)
[2021-06-18] MEDS: PANTOPRAZOLE 40 MG TABLET PO SCH ×2 (09:05→16:11)
[2021-06-18] MEDS: lamoTRIgine 25 MG TAB PO SCH ×2 (09:05→21:35)
[2021-06-18] MEDS: atenoloL 25 MG TAB PO SCH ×2 (09:05→21:34)
[2021-06-18] MEDS: NON FORMULARY DRUG (Clobazam [Clobazam] 10 MG Tablet) PO SCH ×2 (09:06→21:34)
--- NOTE | 2021-06-18 11:27 | P.PN ---
Progress Note - Text Progress Note Date: 06/18/21 Patient still has complaints of abdominal pain. She still is on a bowel movement. On exam vital signs are stable. Abdomen soft. Minimal tenderness throughout. There is no rebound or guarding Constipation. Patient will start on lactulose today.
[2021-06-18] MEDS: LACTULOSE 20 GM/30 ML CUP PO SCH ×3 (12:08→21:33)
[2021-06-18] MEDS: HYDROcodone/APAP 5-325MG 1 EACH TAB PO PRN ×2 (12:16→17:58)
--- NOTE | 2021-06-18 15:42 | P.PN ---
Subjective Patient is a 81-year-old female came in with severe 10/10 abdominal pain in bilateral lower abdominal quadrants patient had a CT of the abdomen which is suspicious for colitis nonspecific. There is also some creates in the colon although patient had colonoscopy about 3 days ago which showed normal colon at that time. Patient states she hasn't moved her bowels since her colonoscopy. Patient grades her pain 10/10 no nausea no vomiting. No fever 06/18/2021 Patient still didn't have any bowel movement patient was started on lactulose patient is a 70 bowel sounds Dilaudid will be discontinued continue with Toradol and [place], patient remains on Unasyn. Continues to complain of abdominal pain. Constitutional: Denied any fatigue denied any fever. Cardio vascular: denied any chest pain, palpitations Gastrointestinal mentioned in HPI Pulmonary: Denied any shortness of breath cough Neurologic denied any new focal deficits All inpatient medications were reviewed and appropriate changes in these medications as dictated in the interval history and assessment and plan. PHYSICAL EXAMINATION: GENERAL: The patient is alert and oriented x3, not in any acute distress. Obese HEENT: Pupils are round and equally reacting to light. EOMI. No scleral icterus. No conjunctival pallor. Normocephalic, atraumatic. No pharyngeal erythema. No thyromegaly. CARDIOVASCULAR: S1 and S2 present. No murmurs, rubs, or gallops. PULMONARY: Chest is clear to auscultation, no wheezing or crackles. ABDOMEN: Soft, nontender, nondistended, normoactive bowel sounds. No palpable organomegaly. MUSCULOSKELETAL: No joint swelling or deformity. EXTREMITIES: No cyanosis, clubbing, or pedal edema. NEUROLOGICAL: Gross neurological examination did not reveal any focal deficits. SKIN: No rashes. Assessment and plan -Lower abdominal pain: Possibly of colitis. Patient will be continued on Unasyn this may be a competent of narcotic seeking behavior as well. Discontinue Dilaudid and patient is on on Toradol along with GI prophylaxis -History of seizures/ pseudoseizures for with chip patient is on multiple antiseizure medications which will be continued -Constipation Will use MiraLAX and lactulose -Gastro- esophageal reflux disease DVT prophylaxis: Lovenox Objective - Vital Signs Vital signs: Vital Signs Temp 98.6 F 06/18/21 14:00 Pulse 77 06/18/21 14:00 Resp 16 06/18/21 14:00 BP 103/69 06/18/21 14:00 Pulse Ox 93 L 06/18/21 14:00 Intake & Output 06/17/21 06/18/21 06/18/21 18:59 06:59 18:59 Intake Total 1020 780 540 Balance 1020 780 540 Weight 120.202 kg Intake: Intake, IV Titration 620 780 Amount Ampicillin-Sulbactam 3 gm 100 In Sodium Chloride 0.9% 100 ml @ 200 mls/hr IVPB Q8HR [facility] Rx#:[id number] Sodium Chloride 0.9% 1, 520 780 000 ml @ 130 mls/hr IV . Q7H42M [facility] Rx#:[id number] Oral 400 540 Other: # Voids 1 2 1 - Labs CBC & Chem 7: 06/18/21 05:32 06/18/21 05:32 Labs: Abnormal Lab Results - Last 24 Hours (Table) 06/18/21 06/18/21 Range/Units 05:32 05:32 WBC 3.4 L (3.8-10.6) k/uL RBC 3.49 L (3.80-5.40) m/uL Hgb 9.0 L (11.4-16.0) gm/dL Hct 29.3 L (34.0-46.0) % MCHC 30.8 L (31.0-37.0) g/dL RDW 16.0 H (11.5-15.5) % Chloride 110 H (98-107) mmol/L Calcium 7.6 L (8.4-10.2) mg/dL Total Protein 5.4 L (6.3-8.2) g/dL Albumin 3.0 L (3.5-5.0) g/dL Microbiology - Last 24 Hours (Table) 06/17/21 07:50 Blood Culture - Preliminary Blood No Growth after 24 hours 06/17/21 07:50 Blood Culture - Preliminary Blood No Growth after 24 hours
[2021-06-18] MEDS: QUEtiapine 200 MG TAB PO SCH (21:35)
[2021-06-19] MEDS: HYDROcodone/APAP 5-325MG 1 EACH TAB PO PRN ×4 (00:16→18:10)
[2021-06-19] MEDS: AMPICILLIN-SULBACTAM 3 GM in SODIUM CHLORIDE 0.9% 100 ML IVPB SCH ×3 (00:18→17:11)
[2021-06-19] MEDS: SODIUM CHLORIDE 0.9% 1,000 ML IV SCH ×3 (00:21→18:10)
[2021-06-19] MEDS: PANTOPRAZOLE 40 MG TABLET PO SCH ×2 (05:56→17:11)
[2021-06-19] MEDS ORDERED: GALCANEZUMAB GNLM 120 MG/ML SQ SCH (09:00)
[2021-06-19] MEDS: DIVALPROEX 500 MG TABLET.DR PO SCH ×2 (09:25→20:40)
[2021-06-19] MEDS: LACTULOSE 20 GM/30 ML CUP PO SCH ×3 (09:25→20:48)
[2021-06-19] MEDS: atenoloL 25 MG TAB PO SCH ×2 (09:25→20:42)
[2021-06-19] MEDS: lamoTRIgine 25 MG TAB PO SCH ×2 (09:25→20:40)
[2021-06-19] MEDS: KETOROLAC 30 MG/ML 1 ML VIAL IVP PRN ×2 (09:28→17:10)
[2021-06-19] MEDS: polyethylene glycoL 3350 17 GM POWD.PACK PO SCH ×3 (11:25→20:43)
[2021-06-19] MEDS: NON FORMULARY DRUG (Clobazam [Clobazam] 10 MG Tablet) PO SCH ×2 (12:29→20:47)
[2021-06-19] MEDS ORDERED: PEG 3350-NA SULF,BICARB,CL/KCL 4,000 ML BOTTLE PO ONE (14:24)
--- NOTE | 2021-06-19 15:00 | P.PN ---
Subjective Progress Note Date: 06/19/21 CHIEF COMPLAINT: Abdominal pain HISTORY OF PRESENT ILLNESS: Patient still complaining of abdominal pain. She reports that her pain is about a 9 out of 10 which is the same that she presented with. She reports that the pain starts on the right side and moves towards the left. She is having minimal flatus. Denies any bowel movement even after the lactulose. There are concerns that patient is pain medication seeking. She denies any nausea or vomiting. She was only able to eat a few bites of clear liquids. She had recent colonoscopy a few days ago. Discussed case with Dr. boucher PHYSICAL EXAM: VITAL SIGNS: Reviewed. GENERAL: Well-developed in no acute distress. HEENT: No sclera icterus. Extraocular movements grossly intact. Moist buccal mucosa. Head is atraumatic, normocephalic. ABDOMEN: Soft. Nondistended. Diffuse tenderness NEUROLOGIC: Alert and oriented. Cranial nerves II through XII grossly intact. ASSESSMENT: 1. Abdominal pain 2. Constipation 3. Possible colitis 4. History of chronic abdominal pain PLAN: -Give 2 L GoLYTELY to help with constipation -Continue clear liquid diet -Continue supportive care -Continue lactulose -No surgical intervention Physician Explosive Man note has been reviewed by physician. Signing provider agrees with the documented findings, assessment, and plan of care. Objective - Vital Signs Vital signs: Vital Signs Temp 98.5 F 06/19/21 08:18 Pulse 72 06/19/21 08:18 Resp 18 06/19/21 08:18 BP 109/72 06/19/21 08:18 Pulse Ox 96 06/19/21 08:18 Intake & Output 06/18/21 06/19/21 06/19/21 18:59 06:59 18:59 Intake Total 2190 Balance 2190 Intake: Intake, IV Titration 1400 Amount Ampicillin-Sulbactam 3 gm 100 In Sodium Chloride 0.9% 100 ml @ 200 mls/hr IVPB Q8HR [facility] Rx#:[id number] Sodium Chloride 0.9% 1, 1300 000 ml @ 130 mls/hr IV . Q7H42M [facility] Rx#:[id number] Oral 790 Other: # Voids 2 1 - Labs CBC & Chem 7: 06/18/21 05:32 06/18/21 05:32 Labs: Microbiology - Last 24 Hours (Table) 06/17/21 07:50 Blood Culture - Preliminary Blood No Growth after 48 hours 06/17/21 07:50 Blood Culture - Preliminary Blood No Growth after 48 hours
--- NOTE | 2021-06-19 17:20 | P.PN ---
Subjective Progress Note Date: 06/19/21 This is a 31-year-old female admitted with lower abdominal pain, constipation and multiple other medical issues. Maintained on Unasyn. No bowel movement on lactulose. Minimal flatus. Consuming 25% of breakfast,Denies nausea or vomiting. Denies chest pain, palpitations or shortness of breath. Afebrile. No surgical intervention as per surgery. Objective - Vital Signs Vital signs: Vital Signs Temp 98.5 F 06/19/21 08:18 Pulse 72 06/19/21 08:18 Resp 18 06/19/21 08:18 BP 109/72 06/19/21 08:18 Pulse Ox 96 06/19/21 08:18 Intake & Output 06/18/21 06/19/21 06/19/21 18:59 06:59 18:59 Intake Total 2190 Balance 2190 Intake: Intake, IV Titration 1400 Amount Ampicillin-Sulbactam 3 gm 100 In Sodium Chloride 0.9% 100 ml @ 200 mls/hr IVPB Q8HR [facility] Rx#:[id number] Sodium Chloride 0.9% 1, 1300 000 ml @ 130 mls/hr IV . Q7H42M [facility] Rx#:[id number] Oral 790 Other: # Voids 2 1 - Exam PHYSICAL EXAMINATION: GENERAL: alert and oriented x3, NAD, Obese. HEENT: Pupils are round and equally reacting to light. EOMI. No scleral icterus. No conjunctival pallor. Normocephalic, atraumatic. CARDIOVASCULAR: S1 and S2 present. No murmurs, rubs, or gallops. PULMONARY: Chest is clear to auscultation, no wheezing or crackles. ABDOMEN: Soft, nontender, nondistended, normoactive bowel sounds. No palpable organomegaly. MUSCULOSKELETAL: No joint swelling or deformity. EXTREMITIES: No cyanosis, clubbing, or pedal edema. NEUROLOGICAL: Gross neurological examination did not reveal any focal deficits. SKIN: No rashes, warm and dry. - Labs CBC & Chem 7: 06/18/21 05:32 06/18/21 05:32 Labs: Microbiology - Last 24 Hours (Table) 06/17/21 07:50 Blood Culture - Preliminary Blood No Growth after 48 hours 06/17/21 07:50 Blood Culture - Preliminary Blood No Growth after 48 hours Assessment and Plan Assessment: Abdominal pain, possible colitis Constipation Gastroesophageal reflux disease History of chronic abdominal pain History of seizures, pseudoseizures Plan: Continue on current medication regime ,monitoring and symptomatic treatment. MiraLAX added to med regimen. Maintain PPI. Increase ambulation as tolerated. The impression and plan of care has been dictated as directed. : I performed a history and examination of this patient, discussed the same with the dictator. I agree with the dictator's note ,documented as a scribe. Any additional findings or plans will be noted.
[2021-06-19] MEDS: QUEtiapine 200 MG TAB PO SCH (20:41)
[2021-06-20] MEDS: AMPICILLIN-SULBACTAM 3 GM in SODIUM CHLORIDE 0.9% 100 ML IVPB SCH ×2 (00:09→08:49)
[2021-06-20] MEDS: KETOROLAC 30 MG/ML 1 ML VIAL IVP PRN (01:02)
[2021-06-20] MEDS: SODIUM CHLORIDE 0.9% 1,000 ML IV SCH (03:19)
[2021-06-20] MEDS: HYDROcodone/APAP 5-325MG 1 EACH TAB PO PRN ×2 (06:20→12:09)
[2021-06-20] MEDS: PANTOPRAZOLE 40 MG TABLET PO SCH (06:20)
[2021-06-20] MEDS: atenoloL 25 MG TAB PO SCH (08:56)
[2021-06-20] MEDS: LACTULOSE 20 GM/30 ML CUP PO SCH ×6 (08:57→15:34)
[2021-06-20] MEDS: DIVALPROEX 500 MG TABLET.DR PO SCH (08:57)
[2021-06-20] MEDS: polyethylene glycoL 3350 17 GM POWD.PACK PO SCH (08:58)
[2021-06-20] MEDS: NON FORMULARY DRUG (Clobazam [Clobazam] 10 MG Tablet) PO SCH (09:12)
[2021-06-20] MEDS: lamoTRIgine 25 MG TAB PO SCH (09:12)
[2021-06-20 09:53] LABS: Anisocytosis Slight; Basophils % (A) 0 %; Eosinophils # (A) 0.2 k/uL (0-0.7); Eosinophils % (A) 5 %; HCT 32.9 % (34.0-46.0); HGB 10.3 gm/dL (11.4-16.0); Hypochromasia Slight; Lymphocytes # (A) 1.3 k/uL (1.0-4.8); Lymphocytes % (A) 34 %; MCH 26.2 pg (25.0-35.0); MCHC 31.3 g/dL (31.0-37.0); MCV 83.6 fL (80.0-100.0); Mean Platelet Volume 7.2; Monocytes # (A) 0.2 k/uL (0-1.0); Monocytes % (A) 6 %; Neutrophils % (A) 51 %; Platelet Count 286 k/uL (150-450); RBC 3.93 m/uL (3.80-5.40); RDW 16.1 % (11.5-15.5); WBC 3.9 k/uL (3.8-10.6)
[2021-06-20 10:03] LABS: African American GFR (CKD) >90 (>60 ml/min/1.73 sqM); Anion Gap 6 mmol/L; Blood Urea Nitrogen 3 mg/dL (7-17); Calcium 8.4 mg/dL (8.4-10.2); Carbon Dioxide 25 mmol/L (22-30); Chloride 110 mmol/L (98-107); Glucose 78 mg/dL (74-99); Non-African American GFR(CKD) >90 (>60 ml/min/1.73 sqM); Potassium 3.9 mmol/L (3.5-5.1); Sodium 141 mmol/L (137-145)
--- NOTE | 2021-06-20 12:01 | P.DS ---
Providers Date of admission: 06/17/21 04:09 Expected date of discharge: 06/20/21 Attending physician: Carlton Johnson MD Consults: 06/17/21 04:09 Consult Physician Routine Consulting Provider: Cali Jha Consult Reason/Comments: known Do you want consulting provider notified?: Yes Primary care physician: Carlton Johnson MD Hospital Course: Final Diagnoses: Abdominal pain, constipation, possible colitis Gastroesophageal reflux disease History of chronic abdominal pain History of seizures, pseudoseizures Depression Hospital course:This is a 31-year-old female admitted with lower abdominal pain, constipation and multiple other medical issues. Maintained on Unasyn. No bowel movement on lactulose. Minimal flatus. Consuming 25% of breakfast,Denies nausea or vomiting. Denies chest pain, palpitations or shortness of breath. Afebrile. No surgical intervention as per surgery. Continues on MiraLAX and lactulose .Significant clinical improvement. Patient reports small bowel movement last night. Minimal suprapubic pain to deep palpitation. Currently on clear liquid diet, Denies nausea or vomiting. Denies chest pain, palpitations or shortness of breath. Diet has been advanced as per surgery for lunch. Patient will be discharged home today in a stable condition with guarded prognosis, if patient tolerates diet advancement, positive bowel movement today with final DC recommendations and clearance per surgery. Patient has been advised to increase ambulation as tolerated. The impression and plan of care has been dictated as directed. : I performed a history and examination of this patient, discussed the same with the dictator. I agree with the dictator's note ,documented as a scribe. Any additional findings or plans will be noted. Patient Condition at Discharge: Stable Plan - Discharge Summary Discharge Rx Participant: No New Discharge Prescriptions: No Action atenoloL [Atenolol] 25 mg PO BID Pantoprazole Sodium [Protonix] 40 mg PO DAILY Galcanezumab-Gnlm [Emgality Syringe] 120 mg SQ Q30D LORazepam [Ativan] 0.5 mg PO TID PRN PRN Reason: Anxiety ondansetron HCL [Zofran] 8 mg PO TID PRN PRN Reason: Nausea Cyclobenzaprine [Flexeril] 10 mg PO HS PRN PRN Reason: SLEEP/MIGRAINES cloBAZam [Clobazam] 20 mg PO BID Loratadine [Claritin] 10 mg PO DAILY cloNIDine HCL [Catapres] 0.3 mg PO HS PRN PRN Reason: SLEEP Divalproex Sodium [Depakote] 500 mg PO BID FLUoxetine HCL [Sarafem] 60 mg PO DAILY HYDROcodone/APAP 5-325MG [[place] 5-325] 1 tab PO Q6H PRN PRN Reason: Pain lamoTRIgine 50 mg PO BID QUEtiapine [SEROquel] 400 mg PO HS Linaclotide [Linzess] 290 mcg PO DAILY PRN PRN Reason: Constipation QUEtiapine [SEROquel] 200 mg PO HS Diclofenac Sodium Gel [Voltaren Gel] 4 gm TOPICAL QID PRN PRN Reason: Pain rOPINIRole HCL [Requip] 2 mg PO HS Baclofen [Lioresal] 10 mg PO DAILY PRN PRN Reason: Muscle Pain Discharge Medication List atenoloL [Atenolol] 25 mg PO BID 05/19/19 [History] Pantoprazole Sodium [Protonix] 40 mg PO DAILY 07/21/20 [History] Galcanezumab-Gnlm [Emgality Syringe] 120 mg SQ Q30D 04/14/21 [History] LORazepam [Ativan] 0.5 mg PO TID PRN 04/14/21 [History] ondansetron HCL [Zofran] 8 mg PO TID PRN 04/14/21 [History] Cyclobenzaprine [Flexeril] 10 mg PO HS PRN 04/19/21 [History] Loratadine [Claritin] 10 mg PO DAILY 06/02/21 [History] QUEtiapine [SEROquel] 200 mg PO HS 06/02/21 [History] cloBAZam [Clobazam] 20 mg PO BID 06/02/21 [History] Baclofen [Lioresal] 10 mg PO DAILY PRN 06/17/21 [History] Diclofenac Sodium Gel [Voltaren Gel] 4 gm TOPICAL QID PRN 06/17/21 [History] Divalproex Sodium [Depakote] 500 mg PO BID 06/17/21 [History] FLUoxetine HCL [Sarafem] 60 mg PO DAILY 06/17/21 [History] HYDROcodone/APAP 5-325MG [[place] 5-325] 1 tab PO Q6H PRN 06/17/21 [History] Linaclotide [Linzess] 290 mcg PO DAILY PRN 06/17/21 [History] QUEtiapine [SEROquel] 400 mg PO HS 06/17/21 [History] cloNIDine HCL [Catapres] 0.3 mg PO HS PRN 06/17/21 [History] lamoTRIgine 50 mg PO BID 06/17/21 [History] rOPINIRole HCL [Requip] 2 mg PO HS 06/17/21 [History] Follow up Appointment(s)/Referral(s): Carlton Johnson MD [Primary Care Provider] - 1-2 days Patient Instructions/Handouts: Seizure/Epilepsy Discharge Instructions & Follow-Up
--- NOTE | 2021-06-20 13:41 | P.PN ---
Subjective Progress Note Date: 06/20/21 CHIEF COMPLAINT: Abdominal pain HISTORY OF PRESENT ILLNESS: Patient is still complaining of the same abdominal pain. She was only able to have one small liquidy bowel movement after the GoLYTELY prep. She did have vomiting yellow emesis. Afebrile. WBC is 3.9 hemoglobin 10.3 platelets [address] boucher PHYSICAL EXAM: VITAL SIGNS: Reviewed. GENERAL: Well-developed in no acute distress. HEENT: No sclera icterus. Extraocular movements grossly intact. Moist buccal mucosa. Head is atraumatic, normocephalic. ABDOMEN: Soft. Nondistended. Diffuse tenderness NEUROLOGIC: Alert and oriented. Cranial nerves II through XII grossly intact. ASSESSMENT: 1. Abdominal pain 2. Constipation 3. Possible colitis 4. History of chronic abdominal pain PLAN: -We'll give lactulose 30 mL every hour 5 doses -Advance diet to full liquids -If patient tolerates diet, has bowel movements and pain is better controlled. She can be discharged from surgical standpoint -No surgical intervention -Patient has been evaluated at [facility] in past. She may benefit from outpatient follow-up with [facility] GI physician outpatient. Physician Museum Guide note has been reviewed by physician. Signing provider agrees with the documented findings, assessment, and plan of care. Objective - Vital Signs Vital signs: Vital Signs Temp 97.6 F 06/20/21 08:05 Pulse 62 06/20/21 08:05 Resp 16 06/20/21 08:05 BP 112/78 06/20/21 08:05 Pulse Ox 100 06/20/21 08:05 Intake & Output 06/19/21 06/20/21 06/20/21 18:59 06:59 18:59 Intake Total 1000 Balance 1000 Intake: Oral 1000 Other: Voiding Method Toilet # Voids 2 1 1 # Bowel Movements 1 1 - Labs CBC & Chem 7: 06/20/21 08:56 06/20/21 08:56 Labs: Abnormal Lab Results - Last 24 Hours (Table) 06/20/21 06/20/21 Range/Units 08:56 08:56 Hgb 10.3 L (11.4-16.0) gm/dL Hct 32.9 L (34.0-46.0) % RDW 16.1 H (11.5-15.5) % Chloride 110 H (98-107) mmol/L BUN 3 L (7-17) mg/dL Microbiology - Last 24 Hours (Table) 06/17/21 07:50 Blood Culture - Preliminary Blood No Growth after 72 hours 06/17/21 07:50 Blood Culture - Preliminary Blood No Growth after 72 hours
[2021-06-20 15:04] VITALS: BP 138/89; PULSE 68; RESP 18; TEMP 98.6
== END 2021-06-20 15:59 | disposition home or self-care (01) ==
LOC: EC 22:58 → 6NMEDSUR 06-17 04:09 → 6PED 06-17 14:01
PROVIDERS: ADMIT Family Medicine; ATTEND Family Medicine
DX: G89.29 Other chronic pain (principal); R10.32 Left lower quadrant pain; R10.31 Right lower quadrant pain; K59.09 Other constipation; R10.2 Pelvic and perineal pain; K21.9 Gastro-esophageal reflux disease without esophagitis; G40.909 Epilepsy, unspecified, not intractable, without status epilepticus; F32.A Depression, unspecified; G47.00 Insomnia, unspecified; R00.0 Tachycardia, unspecified; R42 Dizziness and giddiness; E86.0 Dehydration; F41.9 Anxiety disorder, unspecified; R19.7 Diarrhea, unspecified; E66.9 Obesity, unspecified; Z68.42 Body mass index [BMI] 45.0-49.9, adult; Z91.19 Patient's noncompliance with other medical treatment and regimen; Z20.822 Contact with and (suspected) exposure to COVID-19; Z79.899 Other long term (current) drug therapy; Z71.9 Counseling, unspecified; D24.2 Benign neoplasm of left breast; D24.1 Benign neoplasm of right breast; Z90.49 Acquired absence of other specified parts of digestive tract; Z90.710 Acquired absence of both cervix and uterus; Z98.84 Bariatric surgery status; Z80.49 Family history of malignant neoplasm of other genital organs; Z82.49 Family history of ischemic heart disease and other diseases of the circulatory system; Z80.0 Family history of malignant neoplasm of digestive organs; Z83.438 Family history of other disorder of lipoprotein metabolism and other lipidemia; Z84.1 Family history of disorders of kidney and ureter
CPT/HCPCS: 96376 ×6; 96361 ×6; 96366 ×5; 96375 ×3; 96365; 99285; 36415; 80053 ×2; 80048; 82150; 83690 ×2; 83735; 84100; 85025 ×3; 81003; 87040; 87635; 74018; 74177; G0378 ×5; J2270; J2405; J1885 ×4; J1170 ×2; J0295 ×4; C9113; Q9967

== ENCOUNTER 2021-06-28 17:09 | Emergency (ER) | payer BC ==
[2021-06-28 18:17] VITALS: TEMP 98.1
[2021-06-28] MEDS ORDERED: KETOROLAC 15 MG/ML 1 ML VIAL IVP STA (18:50)
[2021-06-28] MEDS ORDERED: SODIUM CHLORIDE 0.9% 1,000 ML IV STA (18:50)
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
--- NOTE | 2021-06-28 19:30 | XR ---
EXAM: Abdomen radiograph. HISTORY: Pain. TECHNIQUE: Upright AP view. COMPARISON: CT 06/17/2021. FINDINGS: There are nondilated bowel loops with a nonobstructive pattern. There is no pneumoperitoneum. There a re no pathologic calcifications. No acute osseous abnormality seen. Small to moderate amount of colon ic stool volume seen. Cholecystectomy noted. IMPRESSION: Stool burden. Otherwise no acute process.
[2021-06-28 20:08] LABS: Appearance,Urine Clear (Clear); Basophils % (A) 1 %; Bilirubin,Urine Negative (Negative); Blood,Urine Negative (Negative); Color,Urine Colorless; Eosinophils # (A) 0.2 k/uL (0-0.7); Eosinophils % (A) 4 %; Glucose,Urine (UA) Negative (Negative); HCT 33.3 % (34.0-46.0); HGB 10.3 gm/dL (11.4-16.0); Hypochromasia Marked; Ketones,Urine Negative (Negative); Leukocyte Esterase,Urine Negative (Negative); Lymphocytes # (A) 1.9 k/uL (1.0-4.8); Lymphocytes % (A) 37 %; MCHC 30.9 g/dL (31.0-37.0); MCV 83.9 fL (80.0-100.0); Mean Platelet Volume 7.2; Monocytes # (A) 0.4 k/uL (0-1.0); Monocytes % (A) 7 %; Neutrophils # (A) 2.5 k/uL (1.3-7.7); Neutrophils % (A) 48 %; Nitrite,Urine Negative (Negative); PH, Urine 7.5 (5.0-8.0); Platelet Count 304 k/uL (150-450); Protein,Urine Negative (Negative); RBC 3.97 m/uL (3.80-5.40); RDW 15.4 % (11.5-15.5); Specific Gravity,Urine 1.007 (1.001-1.035); Urobilinogen,Urine <2.0 mg/dL (<2.0); WBC 5.1 k/uL (3.8-10.6)
[2021-06-28 20:13] VITALS: BP 122/68; PULSE 69; RESP 18
[2021-06-28 20:18] LABS: ALT 13 U/L (4-34); AST 20 U/L (14-36); African American GFR (CKD) >90 (>60 ml/min/1.73 sqM); Albumin 3.7 g/dL (3.5-5.0); Alkaline Phosphatase 57 U/L (38-126); Amylase 45 U/L (30-110); Anion Gap 7 mmol/L; Blood Urea Nitrogen 15 mg/dL (7-17); Calcium 8.6 mg/dL (8.4-10.2); Carbon Dioxide 26 mmol/L (22-30); Chloride 108 mmol/L (98-107); Glucose 87 mg/dL (74-99); Lipase 106 U/L (23-300); Non-African American GFR(CKD) >90 (>60 ml/min/1.73 sqM); Potassium 4.6 mmol/L (3.5-5.1); Sodium 141 mmol/L (137-145); Total Bilirubin 0.1 mg/dL (0.2-1.3); Total Protein 6.3 g/dL (6.3-8.2)
[2021-06-28] MEDS ORDERED: KETOROLAC 15 MG/ML 1 ML VIAL IM STA (20:41)
[2021-06-28] MEDS ORDERED: MAGNESIUM CITRATE 296 ML BOTTLE PO STA (21:01)
[2021-06-28] MEDS ORDERED: DICYCLOMINE 10 MG/ML 2 ML AMP IM STA (21:01)
== END 2021-06-28 21:15 | disposition home or self-care (01) ==
LOC: EC 17:09
DX: R10.9 Unspecified abdominal pain (principal); K59.00 Constipation, unspecified; K21.9 Gastro-esophageal reflux disease without esophagitis; G40.909 Epilepsy, unspecified, not intractable, without status epilepticus; Z79.899 Other long term (current) drug therapy; Z90.49 Acquired absence of other specified parts of digestive tract
CPT/HCPCS: 36415; 80053; 82150; 83690; 85025; 81003; 81025; 74018; 99284; 96372; J1885

== ENCOUNTER 2021-07-01 18:18 | Observation (INO) | payer BC ==
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
[2021-07-01] MEDS ORDERED: SODIUM CHLORIDE 0.9% 500 ML 500 ML IV STA (18:46)
[2021-07-01] MEDS ORDERED: SODIUM CHLORIDE 0.9% 1,000 ML IV STA (18:46)
[2021-07-01] MEDS ORDERED: levETIRAcetam IV 1,000 MG in SALINE 1 100ML.BAG IVPB STA (21:32)
[2021-07-01 23:20] LABS: Basophils % (A) 1 %; Eosinophils # (A) 0.2 k/uL (0-0.7); Eosinophils % (A) 3 %; HCT 32.6 % (34.0-46.0); HGB 9.6 gm/dL (11.4-16.0); Hypochromasia Marked; Lymphocytes # (A) 1.5 k/uL (1.0-4.8); Lymphocytes % (A) 22 %; MCH 25.7 pg (25.0-35.0); MCHC 29.5 g/dL (31.0-37.0); MCV 87.1 fL (80.0-100.0); Mean Platelet Volume 7.1; Monocytes # (A) 0.4 k/uL (0-1.0); Monocytes % (A) 6 %; Neutrophils # (A) 4.4 k/uL (1.3-7.7); Neutrophils % (A) 65 %; Platelet Count 252 k/uL (150-450); RBC 3.75 m/uL (3.80-5.40); RDW 15.8 % (11.5-15.5); WBC 6.8 k/uL (3.8-10.6)
[2021-07-01 23:23] LABS: ALT 11 U/L (4-34); AST 24 U/L (14-36); African American GFR (CKD) >90 (>60 ml/min/1.73 sqM); Albumin 3.6 g/dL (3.5-5.0); Alkaline Phosphatase 45 U/L (38-126); Anion Gap 10 mmol/L; Blood Urea Nitrogen 13 mg/dL (7-17); Calcium 8.9 mg/dL (8.4-10.2); Carbon Dioxide 23 mmol/L (22-30); Chloride 106 mmol/L (98-107); Creatine Kinase 48 U/L (30-135); Glucose 89 mg/dL (74-99); Magnesium 1.7 mg/dL (1.6-2.3); Non-African American GFR(CKD) >90 (>60 ml/min/1.73 sqM); Sodium 139 mmol/L (137-145); Total Bilirubin 0.3 mg/dL (0.2-1.3); Total Protein 6.2 g/dL (6.3-8.2)
[2021-07-02] MEDS ORDERED: ONDANSETRON 4 MG/2 ML VIAL IVP PRN (00:25)
[2021-07-02] MEDS ORDERED: NALOXONE 0.4 MG/ML 1 ML VIAL IV PRN (00:25)
[2021-07-02] MEDS: SODIUM CHLORIDE 0.9% 1,000 ML IV SCH ×2 (01:14→19:20)
[2021-07-02] MEDS ORDERED: levETIRAcetam IV 1,000 MG in SALINE 1 100ML.BAG IVPB SCH (09:00)
[2021-07-02] MEDS: LORazepam 2 MG/ML INJ IV PRN ×2 (10:27→16:56)
[2021-07-02] MEDS ORDERED: LORazepam 2 MG/ML INJ IV STA (10:29)
[2021-07-02] MEDS ORDERED: VALPROATE SODIUM 500 MG in SODIUM CHLORIDE 0.9% 100 ML IVPB STA (11:45)
[2021-07-02] MEDS ORDERED: HYDROcodone/APAP 5-325MG 1 EACH TAB PO PRN (14:12)
[2021-07-02] MEDS ORDERED: DICLOFENAC SODIUM GEL 100 GM TUBE TOPICAL PRN (14:12)
[2021-07-02] MEDS ORDERED: ONDANSETRON ODT 4 MG TAB PO PRN (14:12)
[2021-07-02] MEDS ORDERED: NON FORMULARY DRUG (Linaclotide [Linzess] 290 MCG Capsule) PO PRN (14:12)
[2021-07-02] MEDS ORDERED: DICYCLOMINE 10 MG CAP PO PRN (14:12)
[2021-07-02] MEDS ORDERED: CYCLOBENZAPRINE 10 MG TAB PO PRN (14:12)
[2021-07-02] MEDS ORDERED: polyethylene glycoL 3350 17 GM POWD.PACK PO PRN (14:12)
[2021-07-02] MEDS ORDERED: BACLOFEN 10 MG TAB PO PRN (14:12)
[2021-07-02] MEDS ORDERED: SIMETHICONE 80 MG CHEWABLE PO PRN (14:12)
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
[2021-07-02] MEDS: LACTULOSE 20 GM/30 ML CUP PO SCH ×2 (16:16→21:00)
[2021-07-02] MEDS ORDERED: ACETAMINOPHEN TAB 325 MG TAB PO PRN (17:23)
--- NOTE | 2021-07-02 18:00 | HP ---
HISTORY AND PHYSICAL I am covering for Dr. Johnson. DATE OF SERVICE: 07/02/2021. CHIEF COMPLAINT: Seizures. This 31-year-old woman with a past medical history of multiple medical problems, including GERD, seizure disorder, syncope, history of pseudoseizures, history of bariatric surgery, cholecystectomy, being followed by Dr. Johnson in the outpatient setting, was admitted with multiple episodes of seizures. The patient's last seizure was about 4 months ago. Generalized tonic-clonic seizure was suspected. Patient was also evaluated by Neurology. During neurology evaluation, apparently the patient had a seizure episode. Pseudoseizure was also suspected. EEG has been ordered. There is no history of any fever, rigors or chills at this time. 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 There is no history of any fever, rigor or chills. PAST MEDICAL HISTORY: Seizures or pseudoseizures, syncope, GERD, bariatric surgery, cholecystectomy. HOME MEDICATIONS: Lamictal, ventolin, Protonix, Claritin, lithium, Cephulac, Sarafem. Doses and other medications are reviewed. ALLERGIES: NONE. FAMILY HISTORY: History of cancer, DVT, cervical cancer. SOCIAL HISTORY: No history of smoking. No history of alcohol intake. REVIEW OF SYSTEMS: ENT: No diminished hearing. No diminished vision. CARDIOVASCULAR SYSTEM: No angina, palpitations. RESPIRATORY SYSTEM: As mentioned earlier. GI: As mentioned earlier. : No dysuria. NERVOUS SYSTEM: As mentioned earlier. ALLERGY/IMMUNOLOGY: No asthma or hay fever. MUSCULOSKELETAL: As mentioned earlier. HEMATOLOGY/ONCOLOGY: No history of anemia. ENDOCRINE: No history of diabetes or hypothyroidism. CONSTITUTIONAL: As mentioned earlier. DERMATOLOGY: Negative. RHEUMATOLOGY: Negative. PSYCHIATRY: As mentioned earlier. PHYSICAL EXAMINATION: Patient is alert, oriented x3. Pulse is 95, blood pressure 108/66, respiration 18, temperature 97.6, pulse ox 98% on room air. HEENT: Conjunctivae normal. NECK: No jugular venous distention. CARDIOVASCULAR: S1, S2 muffled. RESPIRATION: Breath sounds diminished at the bases. No rhonchi. No crackles. ABDOMEN: Soft, obese, non-tender. No mass palpable. LEGS: No edema. No swelling. NERVOUS SYSTEM: Higher functions as mentioned earlier. Moves all 4 limbs. No focal motor or sensory deficit. LYMPHATICS: No lymph node palpable in neck, axillae or groin. SKIN: No ulcer, rash, bleeding. JOINTS: No active deforming arthropathy. LABS: WBC 6.8, hemoglobin 9.6. Other labs are noted. EKG shows no acute abnormality. ASSESSMENT: 1. Seizure versus pseudoseizure. 2. History of seizures and pseudoseizures. 3. Social stressors. 4. Gastroesophageal reflux disease. 5. History of syncope. 6. History of bariatric surgery. 7. History of cholecystectomy. 8. History of hysterectomy. 9. Anemia. 10.History of colonoscopy. 11.History of gastric sleeve surgery. 12.Anxiety. 13.Obesity with body mass index of 47.8. 14.FULL CODE. RECOMMENDATIONS AND DISCUSSION: In this 31-year-old woman who presented with multiple complex medical issues, we will monitor the patient closely, continue the current medications, continue the neuro checks. EEG. Closely follow with Neurology. The possibility of pseudoseizures also to be considered. Resume the home medications. Prognosis guarded. Further recommendations to follow. Dr. Johnson will follow tomorrow. MMODL / IJN: [id number] / [id number]
[2021-07-02] MEDS: NON FORMULARY DRUG (Clobazam [Clobazam] 20 MG Tablet) PO SCH (20:37)
[2021-07-02] MEDS: atenoloL 25 MG TAB PO SCH (20:59)
[2021-07-02] MEDS: LITHIUM CARBONATE 300 MG CAP PO SCH (21:00)
[2021-07-02] MEDS ORDERED: cloNIDine HCL 0.1 MG TAB PO PRN (21:00)
[2021-07-02] MEDS: DIVALPROEX 250 MG TABLET.DR PO SCH (21:00)
[2021-07-02] MEDS: lamoTRIgine 25 MG TAB PO SCH (21:00)
[2021-07-02] MEDS ORDERED: QUEtiapine 200 MG TAB PO SCH (21:00)
[2021-07-02] MEDS ORDERED: QUEtiapine 400 MG TAB PO SCH (21:00)
[2021-07-03] MEDS: SODIUM CHLORIDE 0.9% 1,000 ML IV SCH ×2 (00:43→08:41)
[2021-07-03 07:34] VITALS: BP 128/88; PULSE 75; RESP 15; TEMP 97.7
[2021-07-03] MEDS: DIVALPROEX 250 MG TABLET.DR PO SCH (08:42)
[2021-07-03] MEDS: LACTULOSE 20 GM/30 ML CUP PO SCH (08:42)
[2021-07-03] MEDS: atenoloL 25 MG TAB PO SCH (08:42)
[2021-07-03] MEDS: lamoTRIgine 25 MG TAB PO SCH (08:43)
[2021-07-03] MEDS: NON FORMULARY DRUG (Clobazam [Clobazam] 20 MG Tablet) PO SCH (08:43)
[2021-07-03] MEDS: LITHIUM CARBONATE 300 MG CAP PO SCH (08:44)
[2021-07-03] MEDS ORDERED: PANTOPRAZOLE 40 MG TABLET PO SCH (09:00)
[2021-07-03] MEDS ORDERED: FLUoxetine HCL 20 MG CAP PO SCH (09:00)
[2021-07-03] MEDS ORDERED: LORATADINE 10 MG TAB PO SCH (09:00)
[2021-07-03 09:30] LABS: Basophils # (A) 0.04 X 10*3/uL (0.00-0.10); Basophils % (A) 0.7 %; Eosinophils # (A) 0.31 X 10*3/uL (0.04-0.35); Eosinophils % (A) 5.1 %; HCT 29.5 % (37.2-46.3); HGB 8.5 g/dL (12.0-15.0); Lymphocytes # (A) 1.76 X 10*3/uL (0.90-5.00); Lymphocytes % (A) 28.9 %; MCH 24.8 pg (27.0-32.0); MCHC 28.8 g/dL (32.0-37.0); Mean Platelet Volume 9.8 fL (9.5-12.2); Monocytes # (A) 0.44 X 10*3/uL (0.20-1.00); Monocytes % (A) 7.2 %; Neutrophils % (A) 57.6 %; Platelet Count 261 X 10*3/uL (140-440); RBC 3.43 X 10*6/uL (4.10-5.20); RDW 16.3 % (11.5-14.5); WBC 6.08 X 10*3/uL (4.50-10.00)
[2021-07-03 09:32] LABS: ALT 11 U/L (8-44); AST 11 U/L (13-35); African American GFR (CKD) 131.9 (60.0-200.0); Albumin 3.3 g/dL (3.8-4.9); Albumin/Globulin Ratio 1.94 (1.60-3.17); Alkaline Phosphatase 46 U/L (41-126); Blood Urea Nitrogen 8.4 mg/dL (9.0-27.0); Carbon Dioxide 22.5 mmol/L (20.0-27.5); Chloride 111 mmol/L (96-109); Globulin 1.7 g/dL (1.6-3.3); Glucose 80 mg/dL (70-110); Non-African American GFR(CKD) 113.8 (60.0-200.0); Phosphorus 3.2 mg/dL (2.4-5.1); Potassium 3.6 mmol/L (3.5-5.5); Sodium 143 mmol/L (135-145); Total Bilirubin <0.20 mg/dL (0.30-1.20)
--- NOTE | 2021-07-03 11:39 | P.PN ---
Subjective Progress Note Date: 07/03/21 This is a 31-year-old female recently admitted with lower abdominal pain and constipation, now presents with complaints of seizure activity. Evaluated by neurology. Maintained on increased Depakote and clobazam with seizure precautions. Scheduled for EEG this morning. Denies any further abdominal pain. During the night patient, patient called the nurse in prior to a" seizure-like spell". Denies chest pain, palpitations or shortness of breath. Denies blurred vision. Reports mild headache. Objective - Vital Signs Vital signs: Vital Signs Temp 97.7 F 07/03/21 07:00 Pulse 75 07/03/21 07:00 Resp 15 07/03/21 07:00 BP 128/88 07/03/21 07:00 Pulse Ox 100 07/03/21 07:00 Intake & Output 07/02/21 07/03/21 07/03/21 18:59 06:59 18:59 Intake Total 50 100 Balance 50 100 Intake: Oral 50 100 Other: # Voids 1 2 - Exam PHYSICAL EXAMINATION: GENERAL: alert and oriented x3, NAD, Obese. Flat affect. HEENT: Pupils are round and equally reacting to light. EOMI. No scleral icterus. No conjunctival pallor. Normocephalic, atraumatic. CARDIOVASCULAR: S1 and S2 present. No murmurs, rubs, or gallops. PULMONARY: Chest is clear to auscultation, no wheezing or crackles. ABDOMEN: Soft, nontender, nondistended, normoactive bowel sounds. No palpable organomegaly. MUSCULOSKELETAL: No joint swelling or deformity. EXTREMITIES: No cyanosis, clubbing, or pedal edema. NEUROLOGICAL: Gross neurological examination did not reveal any focal deficits. SKIN: No rashes, warm and dry. - Labs CBC & Chem 7: 07/03/21 05:43 07/03/21 05:43 Labs: Abnormal Lab Results - Last 24 Hours (Table) 07/03/21 07/03/21 Range/Units 05:43 05:43 RBC 3.43 L (4.10-5.20) X 10*6/uL Hgb 8.5 L (12.0-15.0) g/dL Hct 29.5 L (37.2-46.3) % MCH 24.8 L (27.0-32.0) pg MCHC 28.8 L (32.0-37.0) g/dL RDW 16.3 H (11.5-14.5) % Chloride 111 H (96-109) mmol/L Anion Gap 9.50 L (10.00-18.00) mmol/L BUN 8.4 L (9.0-27.0) mg/dL Calcium 8.0 L (8.7-10.3) mg/dL Total Bilirubin <0.20 L (0.30-1.20) mg/dL AST 11 L (13-35) U/L Total Protein 5.0 L (6.2-8.2) g/dL Albumin 3.3 L (3.8-4.9) g/dL Assessment and Plan Assessment: Breakthrough seizure activity, possible nonepileptic event in a patient with history of seizure disorder 4 years. Depakote level on admission subtherapeutic, 19.3 History of VNS placement Gastroesophageal reflux disease Obesity, morbid, BMI 47.8 History of bariatric surgery Plan: Continue on current medication regime ,monitoring and symptomatic treatment. Maintain seizure precautions. Antiepileptics as per neurology. EEG pending. Discharge planning in progress pending neurology's final DC recommendations and clearance The impression and plan of care has been dictated as directed. : I performed a history and examination of this patient, discussed the same with the dictator. I agree with the dictator's note ,documented as a scribe. Any additional findings or plans will be noted.
--- NOTE | 2021-07-03 12:54 | P.DS ---
Providers Date of admission: 07/02/21 00:25 Expected date of discharge: 07/03/21 Attending physician: Carlton Johnson MD Consults: 07/02/21 00:25 Consult Physician Routine Consulting Provider: Sumeet Ontiveros Consult Reason/Comments: sz Do you want consulting provider notified?: Yes Primary care physician: Carlton Johnson MD Hospital Course: Final Diagnoses: Breakthrough seizure activity, possible nonepileptic event in a patient with history of seizure disorder 4 years. Depakote level on admission subtherapeutic, 19.3 History of VNS placement Gastroesophageal reflux disease Obesity, morbid, BMI 47.8 History of bariatric surgery Hospital course:This is a 31-year-old female recently admitted with lower abdominal pain and constipation, now presents with complaints of seizure activity. Evaluated by neurology. Maintained on increased Depakote and clobazam with seizure precautions. Scheduled for EEG this morning. Denies any further abdominal pain. During the night patient, patient called the nurse in prior to a" seizure-like spell". Denies chest pain, palpitations or shortness of breath. Denies blurred vision. Reports mild headache. Significant clinical improvement. Patient will be discharged home today in a stable condition with guarded prognosis pending EEG, final DC recommendations and clearance per neurology. The impression and plan of care has been dictated as directed. : I performed a history and examination of this patient, discussed the same with the dictator. I agree with the dictator's note ,documented as a scribe. Any additional findings or plans will be noted. Patient Condition at Discharge: Stable Plan - Discharge Summary New Discharge Prescriptions: New Divalproex [Depakote] 750 mg PO BID #180 tablet Continue atenoloL 25 mg PO BID Pantoprazole Sodium [Protonix] 40 mg PO DAILY Galcanezumab-Gnlm [Emgality Syringe] 120 mg SQ Q30D LORazepam [Ativan] 0.5 mg PO TID PRN PRN Reason: Anxiety ondansetron HCL [Zofran] 8 mg PO TID PRN PRN Reason: Nausea Cyclobenzaprine [Flexeril] 10 mg PO HS PRN PRN Reason: SLEEP/MIGRAINES cloBAZam [Clobazam] 20 mg PO BID Loratadine [Claritin] 10 mg PO DAILY cloNIDine HCL [Catapres] 0.3 mg PO HS PRN PRN Reason: SLEEP FLUoxetine HCL [Sarafem] 60 mg PO DAILY HYDROcodone/APAP 5-325MG [[place] 5-325] 1 tab PO Q6H PRN PRN Reason: Pain lamoTRIgine 50 mg PO BID QUEtiapine [SEROquel] 400 mg PO HS Linaclotide [Linzess] 290 mcg PO DAILY PRN PRN Reason: Constipation Dicyclomine HCl 10 mg PO TID PRN PRN Reason: cramping polyethylene glycoL 3350 [Miralax] 17 gm PO TID PRN PRN Reason: Constipation QUEtiapine [SEROquel] 200 mg PO HS Diclofenac Sodium Gel [Voltaren Gel] 4 gm TOPICAL QID PRN PRN Reason: Pain rOPINIRole HCL [Requip] 2 mg PO HS Baclofen [Lioresal] 10 mg PO DAILY PRN PRN Reason: Muscle Pain Lactulose [Cephulac] 20 gm PO TID #900 ml Simethicone Chew [Mylicon Chew] 80 mg PO Q6H PRN PRN Reason: BLOATING/GAS [place] Carbonate 300 mg PO BID Ondansetron Odt [Zofran ODT] 4 mg PO Q8H PRN PRN Reason: Nausea Discontinued Divalproex Sodium [Depakote] 500 mg PO BID Discharge Medication List atenoloL 25 mg PO BID 05/19/19 [History] Pantoprazole Sodium [Protonix] 40 mg PO DAILY 07/21/20 [History] Galcanezumab-Gnlm [Emgality Syringe] 120 mg SQ Q30D 04/14/21 [History] LORazepam [Ativan] 0.5 mg PO TID PRN 04/14/21 [History] ondansetron HCL [Zofran] 8 mg PO TID PRN 04/14/21 [History] Cyclobenzaprine [Flexeril] 10 mg PO HS PRN 04/19/21 [History] Loratadine [Claritin] 10 mg PO DAILY 06/02/21 [History] QUEtiapine [SEROquel] 200 mg PO HS 06/02/21 [History] cloBAZam [Clobazam] 20 mg PO BID 06/02/21 [History] Baclofen [Lioresal] 10 mg PO DAILY PRN 06/17/21 [History] Diclofenac Sodium Gel [Voltaren Gel] 4 gm TOPICAL QID PRN 06/17/21 [History] FLUoxetine HCL [Sarafem] 60 mg PO DAILY 06/17/21 [History] HYDROcodone/APAP 5-325MG [[place] 5-325] 1 tab PO Q6H PRN 06/17/21 [History] Linaclotide [Linzess] 290 mcg PO DAILY PRN 06/17/21 [History] QUEtiapine [SEROquel] 400 mg PO HS 06/17/21 [History] cloNIDine HCL [Catapres] 0.3 mg PO HS PRN 06/17/21 [History] lamoTRIgine 50 mg PO BID 06/17/21 [History] rOPINIRole HCL [Requip] 2 mg PO HS 06/17/21 [History] Lactulose [Cephulac] 20 gm PO TID #900 ml 06/20/21 [Rx] Dicyclomine HCl 10 mg PO TID PRN 06/28/21 [History] polyethylene glycoL 3350 [Miralax] 17 gm PO TID PRN 06/28/21 [History] [place] Carbonate 300 mg PO BID 07/01/21 [History] Ondansetron Odt [Zofran ODT] 4 mg PO Q8H PRN 07/01/21 [History] Simethicone Chew [Mylicon Chew] 80 mg PO Q6H PRN 07/01/21 [History] Divalproex [Depakote] 750 mg PO BID #180 tablet 07/03/21 [Rx] Follow up Appointment(s)/Referral(s): Carlton Johnson MD [Primary Care Provider] - 3 Days Chemo Sweeney MD [Medical Doctor] - 2 Weeks Patient Instructions/Handouts: Seizure/Epilepsy Discharge Instructions & Follow-Up Activity/Diet/Wound Care/Special Instructions: No driving 6 months
--- NOTE | 2021-07-03 15:19 | EEG ---
ELECTROENCEPHALOGRAM REPORT DATE OF SERVICE: 07/03/2021. CLINICAL HISTORY: This is a 31-year-old woman with reported history of seizures who presented because of a breakthrough seizure. The video EEG is obtained to evaluate for seizure epileptiform activity. RELEVANT MEDICATION: The patient is on Depakote. EEG TYPE: A routine 21-channel EEG is performed with video using the 10/20 electrode placement system. DESCRIPTION: Awake state is obtained. During awake state, there is a posterior-dominant rhythm of low to moderate voltage that is well modulated of 10-11 hertz activity. There is no physiological stage 2 sleep architecture. There is no focal slowing. Interictal and ictal is none. ACTIVATION PROCEDURE: Photic stimulation did not evoke a posterior driving response. There is no abnormality during the photic stimulation. Hyperventilation is not performed. CLINICAL INTERPRETATION: This is a normal routine EEG. There are no focal slowing, epileptiform discharges or seizure noted on this routine EEG. Clinical correlation is recommended. RECOMMENDATION: If there is still concern for seizure, recommend prolonged EEG, and that could be done as an outpatient. MMODL / IJN: [id number] / MAINOR
== END 2021-07-03 14:25 ==
LOC: EC 18:18 → 6NMEDSUR 07-02 00:25
PROVIDERS: ADMIT Family Medicine; ATTEND Family Medicine
DX: G40.409 Other generalized epilepsy and epileptic syndromes, not intractable, without status epilepticus (principal); F43.9 Reaction to severe stress, unspecified; K21.9 Gastro-esophageal reflux disease without esophagitis; G47.00 Insomnia, unspecified; F41.9 Anxiety disorder, unspecified; D24.2 Benign neoplasm of left breast; D24.1 Benign neoplasm of right breast; D64.9 Anemia, unspecified; K59.00 Constipation, unspecified; R51.9 Headache, unspecified; Z56.6 Other physical and mental strain related to work; E66.01 Morbid (severe) obesity due to excess calories; Z68.42 Body mass index [BMI] 45.0-49.9, adult; Z20.822 Contact with and (suspected) exposure to COVID-19; Z79.899 Other long term (current) drug therapy; Z87.09 Personal history of other diseases of the respiratory system; Z96.82 Presence of neurostimulator; Z98.84 Bariatric surgery status; Z90.711 Acquired absence of uterus with remaining cervical stump; Z90.49 Acquired absence of other specified parts of digestive tract; Z90.79 Acquired absence of other genital organ(s); Z87.828 Personal history of other (healed) physical injury and trauma; Z98.890 Other specified postprocedural states; Z82.49 Family history of ischemic heart disease and other diseases of the circulatory system; Z83.49 Family history of other endocrine, nutritional and metabolic diseases; Z80.49 Family history of malignant neoplasm of other genital organs; Z80.0 Family history of malignant neoplasm of digestive organs; Z84.1 Family history of disorders of kidney and ureter
CPT/HCPCS: 96376 ×2; 96361 ×3; 96365; 96367; 96375; 99285; 36415; 95819; 93005; 80164; 80053 ×2; 82550; 80178; 83735 ×2; 84100; 85025 ×2; 87635; G0378 ×2; J2060; J1953 ×2

== ENCOUNTER 2021-07-12 19:29 | Emergency (ER) | payer BC ==
[2021-07-12 19:44] VITALS: RESP 16
[2021-07-12] MEDS ORDERED: LORazepam 2 MG/ML INJ IM STA (19:52)
[2021-07-12] MEDS ORDERED: SODIUM CHLORIDE 0.9% 500 ML 500 ML IV STA (19:53)
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
[2021-07-12 21:03] LABS: Glucose,Whole Blood 65 mg/dL (75-99)
[2021-07-12 21:50] LABS: Glucose,Whole Blood 99 mg/dL (75-99)
[2021-07-12 21:55] LABS: Anisocytosis Slight; Basophils % (A) 0 %; Eosinophils # (A) 0.3 k/uL (0-0.7); Eosinophils % (A) 4 %; HCT 32.8 % (34.0-46.0); Hypochromasia Marked; Lymphocytes # (A) 1.6 k/uL (1.0-4.8); Lymphocytes % (A) 22 %; MCHC 30.4 g/dL (31.0-37.0); MCV 85.6 fL (80.0-100.0); Mean Platelet Volume 7.8; Monocytes # (A) 0.4 k/uL (0-1.0); Monocytes % (A) 5 %; Neutrophils % (A) 67 %; Platelet Count 289 k/uL (150-450); RBC 3.83 m/uL (3.80-5.40); RDW 16.4 % (11.5-15.5); WBC 7.4 k/uL (3.8-10.6)
[2021-07-12 22:05] LABS: ALT 11 U/L (4-34); AST 16 U/L (14-36); African American GFR (CKD) >90 (>60 ml/min/1.73 sqM); Albumin 3.5 g/dL (3.5-5.0); Alkaline Phosphatase 44 U/L (38-126); Anion Gap 9 mmol/L; Blood Urea Nitrogen 15 mg/dL (7-17); Calcium 8.1 mg/dL (8.4-10.2); Carbon Dioxide 20 mmol/L (22-30); Chloride 108 mmol/L (98-107); Glucose 104 mg/dL (74-99); Magnesium 2.2 mg/dL (1.6-2.3); Non-African American GFR(CKD) >90 (>60 ml/min/1.73 sqM); Potassium 4.7 mmol/L (3.5-5.1); Sodium 137 mmol/L (137-145); Total Bilirubin 0.1 mg/dL (0.2-1.3)
[2021-07-12 22:06] LABS: Appearance,Urine Clear (Clear); Bilirubin,Urine Negative (Negative); Blood,Urine Negative (Negative); Color,Urine Yellow; Glucose,Urine (UA) Negative (Negative); Ketones,Urine Negative (Negative); Leukocyte Esterase,Urine Negative (Negative); Nitrite,Urine Negative (Negative); PH, Urine 7.5 (5.0-8.0); Protein,Urine Trace (Negative); Specific Gravity,Urine 1.023 (1.001-1.035); Urobilinogen,Urine <2.0 mg/dL (<2.0)
[2021-07-12 22:19] LABS: Amphetamine Screen,Urine Not Detected (NotDetected); Barbiturate Screen,Urine Not Detected (NotDetected); Benzodiazepines Screen,Urine Detected (NotDetected); Cocaine Screen,Urine Not Detected (NotDetected); Methadone Screen, Urine Not Detected (NotDetected); Opiate Screen,Urine Not Detected (NotDetected); Oxycodone Screen, Urine Not Detected (NotDetected); Phencyclidine Screen,Urine Not Detected (NotDetected); Tricyclic Antidepressant,Urine Detected (NotDetected); Urn Cannabinoid Scrn Not Detected (NotDetected)
[2021-07-12] MEDS ORDERED: HYDROmorphone 0.5 MG/0.5 ML SYRINGE IVP STA (22:31)
[2021-07-12 23:25] VITALS: TEMP 98.8
[2021-07-12 23:26] VITALS: BP 101/52; PULSE 85
== END 2021-07-12 23:27 | disposition home or self-care (01) ==
LOC: EC 19:29
DX: G40.909 Epilepsy, unspecified, not intractable, without status epilepticus (principal); K21.9 Gastro-esophageal reflux disease without esophagitis; Z79.899 Other long term (current) drug therapy
CPT/HCPCS: 36415; 93005; 80053; 83735; 85025; 81003; 81025; 80306; 99284; 96374; 96361; 96372; J2060; J1170

== ENCOUNTER 2021-08-13 17:09 | Inpatient (IN) | payer BC ==
[2021-08-13] MEDS ORDERED: MORPHINE SULFATE 4 MG/ML SYRINGE IV STA (17:58)
[2021-08-13] MEDS ORDERED: SODIUM CHLORIDE 0.9% 1,000 ML IV STA ×2 (17:58→19:56)
[2021-08-13] MEDS ORDERED: diphenhydrAMINE 50 MG/ML 1 ML VIAL IVP STA (17:58)
[2021-08-13] MEDS ORDERED: ONDANSETRON 4 MG/2 ML VIAL IVP STA (17:58)
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
[2021-08-13 18:53] LABS: Anisocytosis Slight; Basophils % (A) 0 %; Eosinophils # (A) 0.3 k/uL (0-0.7); Eosinophils % (A) 3 %; HCT 34.7 % (34.0-46.0); HGB 10.7 gm/dL (11.4-16.0); Hypochromasia Marked; Lymphocytes # (A) 1.4 k/uL (1.0-4.8); Lymphocytes % (A) 14 %; MCH 26.5 pg (25.0-35.0); MCHC 30.9 g/dL (31.0-37.0); MCV 85.8 fL (80.0-100.0); Monocytes # (A) 0.4 k/uL (0-1.0); Monocytes % (A) 4 %; Neutrophils # (A) 7.1 k/uL (1.3-7.7); Neutrophils % (A) 75 %; Platelet Count 396 k/uL (150-450); RBC 4.04 m/uL (3.80-5.40); WBC 9.4 k/uL (3.8-10.6)
[2021-08-13 18:54] LABS: Appearance,Urine Clear (Clear); Bilirubin,Urine Negative (Negative); Blood,Urine Negative (Negative); Color,Urine Light Yellow; Glucose,Urine (UA) Negative (Negative); Ketones,Urine Negative (Negative); Leukocyte Esterase,Urine Negative (Negative); Nitrite,Urine Negative (Negative); PH, Urine 6.5 (5.0-8.0); Protein,Urine Negative (Negative); Specific Gravity,Urine 1.012 (1.001-1.035); Urobilinogen,Urine <2.0 mg/dL (<2.0)
[2021-08-13 19:07] LABS: ALT 12 U/L (4-34); AST 22 U/L (14-36); African American GFR (CKD) >90 (>60 ml/min/1.73 sqM); Albumin 3.9 g/dL (3.5-5.0); Alkaline Phosphatase 57 U/L (38-126); Amylase 71 U/L (30-110); Anion Gap 1 mmol/L; Blood Urea Nitrogen 14 mg/dL (7-17); Calcium 9.2 mg/dL (8.4-10.2); Carbon Dioxide 29 mmol/L (22-30); Chloride 105 mmol/L (98-107); Glucose 94 mg/dL (74-99); Lipase 272 U/L (23-300); Non-African American GFR(CKD) 88 (>60 ml/min/1.73 sqM); Sodium 135 mmol/L (137-145); Total Bilirubin 0.3 mg/dL (0.2-1.3); Total Protein 6.8 g/dL (6.3-8.2)
--- NOTE | 2021-08-13 19:14 | XR ---
EXAMINATION TYPE: XR KUB DATE OF EXAM: 08/13/2021 COMPARISON: 06/28/2021 HISTORY: Abdominal pain TECHNIQUE: 2 views upright FINDINGS: Bowel gas pattern is normal. There is no sign of intestinal obstruction or pneumoperitoneum . Fecal pattern is normal. Lung bases are clear. There are no pathologic calcifications over the kidn eys. IMPRESSION: Nonacute abdomen. No adverse change.
--- NOTE | 2021-08-13 19:36 | US ---
EXAMINATION TYPE: US pelvis complete transvag DATE OF EXAM: 08/13/2021 COMPARISON: NONE CLINICAL HISTORY: Pelvic pain, evaluate for ovarian torsion. TECHNIQUE: Transvaginal (TV) and Transabdominal (TA) . Transvaginal sonographic images of the pelvi s were acquired. Transabdominal sonographic images were medically necessary to better assess the fol lowing anatomy: ovaries Date of LMP: 2019/hysterectomy EXAM MEASUREMENTS: Uterus: Surgically absent Endometrial Stripe: Surgically absent Right Ovary: Obscured by overlying bowel gas/obesity Left Ovary: Obscured by overlying bowel gas/obesity Gross morbid obesity limiting exam 1. Uterus: Surgically absent 2. Endometrium: Surgically absent 3. Right Ovary: Obscured by overlying bowel gas/obesity 4. Left Ovary: Obscured by overlying bowel gas/obesity 5. Bilateral Adnexa: wnl as seen 6. Posterior cul-de-sac: wnl as seen IMPRESSION: No free fluid in the pelvis. Hysterectomy. No evidence of a pelvic mass. Ovaries not seen.
[2021-08-13] MEDS ORDERED: HYDROmorphone 0.5 MG/0.5 ML SYRINGE IVP STA ×2 (19:46→19:56)
[2021-08-13] MEDS ORDERED: SODIUM POLYSTYRENE SULFONATE 15 GM/60 ML BOTTLE PO ONE (19:47)
[2021-08-13] MEDS ORDERED: INSULIN REGULAR 100 UNIT/ML VIAL (IV) IV ONE (19:47)
[2021-08-13] MEDS ORDERED: ALBUTEROL NEB (CONC) 2.5 MG/0.5 ML INHALATION ONE (19:47)
[2021-08-13] MEDS ORDERED: DEXTROSE 50% SYRINGE 50 ML IVP ONE (19:47)
--- NOTE | 2021-08-13 20:36 | CT ---
EXAMINATION TYPE: CT abdomen pelvis w con DATE OF EXAM: 08/13/2021 COMPARISON: 06/17/2021 . HISTORY: Abdominal/pelvic pain. Hx gastric sleve, era, partial hysterectomy. CT DLP: 3044.4 mGycm Automated exposure control for dose reduction was used. CONTRAST: Performed with IV Contrast, patient injected with 100 mL of Isovue 300. lung bases are clear. There is no pleural effusion. Heart size is normal. There is no pericardial eff usion. There are clips from gastric bariatric surgery. There are clips from cholecystectomy. Liver sp jesika pancreas appear intact. The bile duct are not dilated. There is no adrenal mass. Kidneys show satisfactory contrast opacification. There is no hydronephrosi s. Ureters are not dilated. There is no retroperitoneal adenopathy. Appendix is posterior and appears normal. Bladder distends smoothly. There is no inguinal hernia. There is no free fluid in the pelvis . There is no mesenteric edema. There is no ascites or free air. There is no sign of a bowel obstructio n. The lumbar vertebrae have normal spacing and alignment. Posterior elements are intact. The bony pelvi s appears intact. Hip joints are intact. Sacroiliac joints appear normal. IMPRESSION: Negative CT scan abdomen and pelvis. Normal appendix. No adverse change compared to old exam. There i s clearing of the minimal fluid in the left paracolic gutter compared to old exam. There is clearing of the mild fat stranding at the sigmoid colon compared to old exam. There is clearing of the mild at electasis at the lung bases compared to old exam.
[2021-08-13] MEDS ORDERED: NALOXONE 0.4 MG/ML 1 ML VIAL IV PRN (20:39)
[2021-08-13] MEDS ORDERED: KETOROLAC 30 MG/ML 1 ML VIAL IVP STA (21:12)
[2021-08-13] MEDS ORDERED: KETOROLAC 15 MG/ML 1 ML VIAL IVP STA (21:19)
[2021-08-13] MEDS: HYDROmorphone 0.5 MG/0.5 ML SYRINGE IVP PRN (22:36)
[2021-08-13] MEDS ORDERED: DICYCLOMINE 10 MG CAP PO PRN (22:49)
[2021-08-13] MEDS ORDERED: cloNIDine HCL 0.1 MG TAB PO PRN (22:49)
[2021-08-13] MEDS ORDERED: BUTALB/APAP/CAFF 50-325-40MG TAB PO PRN (22:49)
[2021-08-13] MEDS ORDERED: LITHIUM CARBONATE 300 MG CAP PO PRN (22:49)
[2021-08-13] MEDS ORDERED: BACLOFEN 10 MG TAB PO PRN (22:49)
[2021-08-14] MEDS: HYDROmorphone 0.5 MG/0.5 ML SYRINGE IVP PRN ×8 (01:38→23:02)
[2021-08-14] MEDS: lamoTRIgine 100 MG TAB PO SCH ×2 (07:51→20:06)
[2021-08-14] MEDS: LORATADINE 10 MG TAB PO SCH (07:52)
[2021-08-14] MEDS: PANTOPRAZOLE 40 MG TABLET PO SCH ×2 (07:52→16:54)
[2021-08-14] MEDS: busPIRone HCl 10 MG TAB PO SCH ×2 (07:52→20:06)
[2021-08-14] MEDS: atenoloL 25 MG TAB PO SCH ×2 (07:52→20:05)
[2021-08-14] MEDS: DIVALPROEX 250 MG TABLET.DR PO SCH ×2 (07:53→20:05)
[2021-08-14 08:55] LABS: Anisocytosis Slight; Basophils % (A) 1 %; Eosinophils # (A) 0.3 k/uL (0-0.7); Eosinophils % (A) 4 %; HCT 33.2 % (34.0-46.0); HGB 9.6 gm/dL (11.4-16.0); Hypochromasia Marked; Lymphocytes # (A) 1.6 k/uL (1.0-4.8); Lymphocytes % (A) 22 %; MCH 26.1 pg (25.0-35.0); MCHC 28.9 g/dL (31.0-37.0); MCV 90.4 fL (80.0-100.0); Mean Platelet Volume 7.3; Monocytes # (A) 0.5 k/uL (0-1.0); Monocytes % (A) 7 %; Neutrophils # (A) 4.6 k/uL (1.3-7.7); Neutrophils % (A) 63 %; Platelet Count 321 k/uL (150-450); RBC 3.67 m/uL (3.80-5.40); RDW 17.2 % (11.5-15.5); WBC 7.3 k/uL (3.8-10.6)
[2021-08-14 10:26] LABS: African American GFR (CKD) 112.3 (60.0-200.0); Anion Gap 10.4 mmol/L (10.00-18.00); BUN/Creat Ratio 18.5 Ratio (12.00-20.00); Blood Urea Nitrogen 14.8 mg/dL (9.0-27.0); Calcium 7.9 mg/dL (8.7-10.3); Carbon Dioxide 21.6 mmol/L (20.0-27.5); Magnesium 2.2 mg/dL (1.5-2.4); Non-African American GFR(CKD) 96.9 (60.0-200.0); Potassium 4.9 mmol/L (3.5-5.5)
[2021-08-14] MEDS: NON FORMULARY DRUG (Clobazam [Clobazam] 20 MG Tablet) PO SCH ×2 (11:22→22:00)
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
[2021-08-14] MEDS: ZOLPIDEM 5 MG TAB PO SCH (20:06)
[2021-08-14] MEDS: OLANZapine 10 MG TAB PO SCH (20:06)
[2021-08-15] MEDS: HYDROmorphone 0.5 MG/0.5 ML SYRINGE IVP PRN ×8 (02:12→23:43)
[2021-08-15] MEDS: PANTOPRAZOLE 40 MG TABLET PO SCH ×2 (07:58→17:29)
[2021-08-15] MEDS: NON FORMULARY DRUG (Clobazam [Clobazam] 20 MG Tablet) PO SCH ×2 (07:58→21:36)
[2021-08-15] MEDS: LORATADINE 10 MG TAB PO SCH (07:59)
[2021-08-15] MEDS: busPIRone HCl 10 MG TAB PO SCH ×2 (07:59→20:34)
[2021-08-15] MEDS: lamoTRIgine 100 MG TAB PO SCH ×2 (07:59→20:35)
[2021-08-15] MEDS: atenoloL 25 MG TAB PO SCH ×2 (08:00→20:33)
[2021-08-15] MEDS: DIVALPROEX 250 MG TABLET.DR PO SCH ×2 (08:00→20:35)
--- NOTE | 2021-08-15 08:09 | P.PN ---
Progress Note - Text Progress Note Date: 08/15/21 Pt seen and examined at bedside. She says that her pain is similar to the pain from her endometriosis but it suprapubic and goes into her vagina. The pain has been going on for a couple weeks but then got very intense in the last few days. The sudden onset of pain is what brought her into the hospital. Patient has a long history of endometriosis and pelvic pain for which I did perform a total laparoscopic hysterectomy. She is also had some surgeries with Dr. Richard for her bowels. Patient is still on only IV Dilaudid. I will add Toradol for anti-inflammatory properties. Vital signs stable Heart: Regular rhythm Lungs: Clear stage bilaterally Abdomen: Soft and tender over suprapubic region Extremities: Negative Homans Assessment 1. Chronic pelvic pain with acute exacerbation-endometriosis with the possibility of interstitial cystitis Plan 1. But had several discussions with this patient about her endometriosis it doesn't seem that she grasped at this is a chronic condition that she needs to work on every day. We discussed exercises and diet that will decrease the inflammation in her pelvis. As I looked around her room I see flavored to 3 rolls, chips, crackers and a large sugar filled icy drink. We discussed that none of this is helping her pain especially with endometriosis and or interstitial cystitis. She is to increase her water intake and protein, decreasing carbohydrates. I will add Toradol to help with inflammation. I want to get her through this acute issue and then we discussed possible pelvic pain clinic or Depo-Lupron. Patient is not sure if she may have had Depo-Lupron in the past. I will port through her chart today at the office and make sure that this plan has not been done already.
[2021-08-15] MEDS: KETOROLAC 30 MG/ML 1 ML VIAL IVP SCH ×3 (08:18→20:35)
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
[2021-08-15 16:14] LABS: C. trachomatis,PCR Negative (Neg,Equiv); Chlamydia trachomatis Source Cervix; N. gonorrhoeae,PCR Negative (Neg,Equiv); Neisseria Source Cervix
--- NOTE | 2021-08-15 17:21 | P.PN ---
Subjective Progress Note Date: 08/15/21 Caroline Newton is a 31 yo F with PMH of endometriosis s/p hysterectomy, seizure disorder, depression who presented to the ED complaining of 3 week history of worsening generalized abdominal pain. She describes this as throughout her entire abdomen but worse suprapubic and in the vaginal region. No nausea, vomiting, fever, chills. She had an appointment scheduled with her OB to discuss this but her pain worsened so she came in. On presentation her vitals were stable, labs unremarkable, UA clear, CT abd/pelvis no acute process, improved from previous. 08/15/2021 no overnight events. Similar presentation as yesterday continued ongoing suprapelvic abdominal pain. Reports intractable pain, requiring Dilaudid IV push around the clock, averaging every 3 hours. Toradol added to med regimen as per [employer]. Afebrile, normal WBC. Hemoglobin 9.6. Electrolytes within normal limits. Renal function stable. Denies chest pain, palpitations or shortness of breath. Objective - Vital Signs Vital signs: Vital Signs Temp 98.1 F 08/15/21 15:00 Pulse 90 08/15/21 15:00 Resp 18 08/15/21 15:00 BP 108/74 08/15/21 15:00 Pulse Ox 99 08/15/21 15:00 Intake & Output 08/14/21 08/15/21 08/15/21 18:59 06:59 18:59 Intake Total 948 1180 Balance 948 1180 Intake: Oral 948 1180 Other: # Voids 3 1 4 # Bowel Movements 1 - Exam PHYSICAL EXAM: VITAL SIGNS: [As above] GENERAL: Sitting up in bed, no acute distress HEENT: Conjunctivae normal. eyes normal. Oral mucosa moist NECK: Supple, No JVD. CARDIOVASCULAR: S1, S2 regular. No murmur RESPIRATION: Breath sounds diminished in the bases. No rhonchi or crackles. ABDOMEN: Soft, nondistended. Diffuse suprapubic tenderness, No guarding. no masses palpable. Bowel sounds heard. LEGS: No edema. no swelling PSYCHIATRY: Alert and oriented X3, mood and affect normal. NERVOUS SYSTEM: Cranial N 2-12 grossly normal. No focal deficits. Strength and sensation grossly intact. Skin: Warm and dry, no rash - Labs CBC & Chem 7: 08/14/21 07:43 08/14/21 07:43 Assessment and Plan Assessment: Acute suprapubic pain, history of ICD and and endometriosis, in a patient with history of total laparoscopic hysterectomy, failed OCP in the past. Acute endometriosis exacerbation, poss. interstitial cystitis per [employer] Bipolar disorder Seizure disorder Plan: Continue on current medication regime ,monitoring and symptomatic treatme nt. Maintain gentle IV fluid hydration, encourage oral water intake. Dietitian consulted regarding chronicity of endometriosis, diet to facilitate decrease pelvis inflammation. Pain management; at this time pain is uncontrolled ,Toradol has been added to med regimen. At this time patient is a high risk for readmission related to her uncontrolled pain and might benefit from further instruction by dietitian regarding anti-inflammatory diet.Discharge planning in progress for tomorrow pending GYNs final DC recommendations and clearance. The impression and plan of care has been dictated as directed. : I performed a history and examination of this patient, discussed the same with the dictator. I agree with the dictator's note ,documented as a scribe. Any additional findings or plans will be noted.
[2021-08-15] MEDS: ZOLPIDEM 5 MG TAB PO SCH (20:33)
[2021-08-15] MEDS: OLANZapine 10 MG TAB PO SCH (20:34)
[2021-08-16] MEDS: KETOROLAC 30 MG/ML 1 ML VIAL IVP SCH ×2 (02:43→08:35)
[2021-08-16] MEDS: HYDROmorphone 0.5 MG/0.5 ML SYRINGE IVP PRN ×4 (02:44→11:40)
[2021-08-16 07:46] VITALS: BP 112/77; PULSE 87; RESP 16; TEMP 97.7
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
[2021-08-16 10:09] VITALS: BMI 47.8
--- NOTE | 2021-08-16 10:11 | P.DS ---
Providers Date of admission: 08/15/21 10:07 Expected date of discharge: 08/16/21 Attending physician: Carlton Johnson MD Consults: 08/13/21 21:13 Consult Physician Routine Consulting Provider: Pippa Pichardo Consult Reason/Comments: vaginal pain, abd pain. History of Hysterectomy, endometriosis Do you want consulting provider notified?: Yes Primary care physician: Carlton Johnson MD Hospital Course: Final Diagnoses: Acute suprapubic pain, history of ICD and and endometriosis, in a patient with history of total laparoscopic hysterectomy, failed OCP in the past. Acute endom etriosis exacerbation, poss. interstitial cystitis per [employer] Chronic pelvic pain secondary to the above as per [employer] Bipolar disorder Seizure disorder Hospital course:Caroline Newton is a 31 yo F with PMH of endometriosis s/p hysterectomy, seizure disorder, depression who presented to the ED complaining of 3 week history of worsening generalized abdominal pain. She describes this as throughout her entire abdomen but worse suprapubic and in the vaginal region. No nausea, vomiting, fever, chills. She had an appointment scheduled with her OB to discuss this but her pain worsened so she came in. On presentation her vitals were stable, labs unremarkable, UA clear, CT abd/pelvis no acute process, improved from previous. 08/15/2021 no overnight events. Similar presentation as yesterday continued on going suprapelvic abdominal pain. Reports intractable pain, requiring Dilaudid IV push around the clock, averaging every 3 hours. Toradol added to med regimen as per [employer]IN[employer]NANCE. Afebrile, normal WBC. Hemoglobin 9.6. Electrolytes within normal limits. Renal function stable. Denies chest pain, palpitations or shortness of breath. Dietitian consulted regarding chronicity of endometriosis, diet to facilitate decrease pelvis inflammation. Pain management; at this time pain is uncontrolled ,Toradol has been added to med regimen. At this time patient is a high risk for readmission related to her uncontrolled pain and might benefit from further instruction by dietitian regarding anti-inflammatory diet.Discharge planning in progress for tomorrow pending GYNs final DC recommendations and clearance. 08/16/21 Significant clinical improvement. Cramping abdominal pain improving. Denies nausea or vomiting this morning. Denies chest pain, palpitations or shortness of breath.Evaluated by MECH[employer]ICAL MAINTENANCE, cleared for discharge with pain medications prescribed. Patient will be discharged home today after she meets with dietitian, in stable condition with guarded prognosis. Patient is eager to be discharged prior to orm. The impression and plan of care has been dictated as directed. : I performed a history and examination of this patient, discussed the same with the dictator. I agree with the dictator's note ,documented as a scribe. Any additional findings or plans will be noted. Patient Condition at Discharge: Stable Plan - Discharge Summary Discharge Rx Participant: No New Discharge Prescriptions: New Zolpidem Tartrate [Ambien] 10 mg PO HS PRN #15 tab PRN Reason: Insomnia Ibuprofen [Motrin] 600 mg PO Q6HR PRN #40 tab PRN Reason: Mild Pain Or Fever >= 100.5 oxyCODONE HCL 5 mg PO Q4HR PRN 3 Days #18 tab PRN Reason: Severe Pain Continue atenoloL 25 mg PO BID Pantoprazole Sodium [Protonix] 40 mg PO BID Galcanezumab-Gnlm [Emgality Syringe] 120 mg SQ Q30D cloBAZam [Clobazam] 20 mg PO BID Loratadine [Claritin] 10 mg PO DAILY cloNIDine HCL [Catapres] 0.3 mg PO HS PRN PRN Reason: SLEEP lamoTRIgine 50 mg PO BID Dicyclomine HCl 10 mg PO TID PRN PRN Reason: cramping Divalproex [Depakote] 750 mg PO BID #180 tablet Butalb/APAP/Caff 50-325-40Mg [Fioricet 50-325-40] 1 tab PO BID PRN PRN Reason: Migraine Headache rOPINIRole HCL [Requip] 2 mg PO HS Baclofen [Lioresal] 10 mg PO DAILY PRN PRN Reason: Muscle Pain Simethicone Chew [Mylicon Chew] 80 mg PO Q6H PRN PRN Reason: BLOATING/GAS [place] Carbonate 300 mg PO DAILY PRN PRN Reason: Agitation OLANZapine 10 mg PO HS busPIRone HCl [Buspar] 10 mg PO BID Zolpidem [Ambien] 5 mg PO HS Discharge Medication List atenoloL 25 mg PO BID 05/19/19 [History] Pantoprazole Sodium [Protonix] 40 mg PO BID 07/21/20 [History] Galcanezumab-Gnlm [Emgality Syringe] 120 mg SQ Q30D 04/14/21 [History] Loratadine [Claritin] 10 mg PO DAILY 06/02/21 [History] cloBAZam [Clobazam] 20 mg PO BID 06/02/21 [History] Baclofen [Lioresal] 10 mg PO DAILY PRN 06/17/21 [History] cloNIDine HCL [Catapres] 0.3 mg PO HS PRN 06/17/21 [History] lamoTRIgine 50 mg PO BID 06/17/21 [History] rOPINIRole HCL [Requip] 2 mg PO HS 06/17/21 [History] Dicyclomine HCl 10 mg PO TID PRN 06/28/21 [History] [place] Carbonate 300 mg PO DAILY PRN 07/01/21 [History] Simethicone Chew [Mylicon Chew] 80 mg PO Q6H PRN 07/01/21 [History] Divalproex [Depakote] 750 mg PO BID #180 tablet 07/03/21 [Rx] OLANZapine 10 mg PO HS 07/12/21 [History] Butalb/APAP/Caff 50-325-40Mg [Fioricet 50-325-40] 1 tab PO BID PRN 08/13/21 [History] Zolpidem [Ambien] 5 mg PO HS 08/13/21 [History] busPIRone HCl [Buspar] 10 mg PO BID 08/13/21 [History] Ibuprofen [Motrin] 600 mg PO Q6HR PRN #40 tab 08/16/21 [Rx] Zolpidem Tartrate [Ambien] 10 mg PO HS PRN #15 tab 08/16/21 [Rx] oxyCODONE HCL 5 mg PO Q4HR PRN 3 Days #18 tab 08/16/21 [Rx] Follow up Appointment(s)/Referral(s): Carlton Johnson MD [Primary Care Provider] - 1 Week Pippa Pichardo DO [Doctor of Osteopathic Medicine] - 1 Week Discharge Disposition: HOME SELF-CARE
[2021-08-16] MEDS: DIVALPROEX 250 MG TABLET.DR PO SCH (10:29)
[2021-08-16] MEDS: busPIRone HCl 10 MG TAB PO SCH (10:30)
[2021-08-16] MEDS: PANTOPRAZOLE 40 MG TABLET PO SCH (10:30)
[2021-08-16] MEDS: lamoTRIgine 100 MG TAB PO SCH (10:31)
[2021-08-16] MEDS: LORATADINE 10 MG TAB PO SCH (10:32)
[2021-08-16] MEDS: atenoloL 25 MG TAB PO SCH (10:33)
[2021-08-16] MEDS: NON FORMULARY DRUG (Clobazam [Clobazam] 20 MG Tablet) PO SCH (10:58)
== END 2021-08-16 12:40 | disposition home or self-care (01) | DRG 761 ==
LOC: EC 17:09 → 6NMEDSUR 20:39 → OBSVTOIN 08-15 10:07
PROVIDERS: ADMIT Family Medicine; ATTEND Family Medicine
DX: N80.9 Endometriosis, unspecified (principal); N30.10 Interstitial cystitis (chronic) without hematuria; D64.9 Anemia, unspecified; E87.5 Hyperkalemia; R11.2 Nausea with vomiting, unspecified; F31.9 Bipolar disorder, unspecified; Z20.822 Contact with and (suspected) exposure to COVID-19; G47.00 Insomnia, unspecified; F41.9 Anxiety disorder, unspecified; G40.909 Epilepsy, unspecified, not intractable, without status epilepticus; N83.209 Unspecified ovarian cyst, unspecified side; R42 Dizziness and giddiness; K59.00 Constipation, unspecified; R19.7 Diarrhea, unspecified; K29.70 Gastritis, unspecified, without bleeding; K21.9 Gastro-esophageal reflux disease without esophagitis; G89.29 Other chronic pain; Z79.899 Other long term (current) drug therapy; Z80.0 Family history of malignant neoplasm of digestive organs; Z80.49 Family history of malignant neoplasm of other genital organs; Z82.49 Family history of ischemic heart disease and other diseases of the circulatory system; Z90.711 Acquired absence of uterus with remaining cervical stump; Z95.810 Presence of automatic (implantable) cardiac defibrillator; Z98.84 Bariatric surgery status; Z90.49 Acquired absence of other specified parts of digestive tract; Z90.79 Acquired absence of other genital organ(s); Z96.82 Presence of neurostimulator
CPT/HCPCS: 36415; 36556; 74018; 74177; 76830; 76856; 80048; 80053; 81003; 81025; 82150; 83605; 83690; 83735; 84132; 85025; 87491; 87591; 87635; 87808; 93005; 94640; 96361; 96374; 96375; 99285

== ENCOUNTER 2021-08-18 21:39 | Emergency (ER) | payer BC ==
[2021-08-18 21:49] VITALS: TEMP 97.7
[2021-08-18] MEDS ORDERED: SODIUM CHLORIDE 0.9% 1,000 ML IV STA (21:53)
[2021-08-18] MEDS ORDERED: HYDROmorphone 1 MG/ML 1 ML SYRINGE IVP STA (21:53)
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
[2021-08-18 22:35] LABS: Anisocytosis Slight; Basophils % (A) 0 %; Eosinophils # (A) 0.2 k/uL (0-0.7); Eosinophils % (A) 4 %; HCT 34.7 % (34.0-46.0); HGB 10.6 gm/dL (11.4-16.0); Hypochromasia Moderate; Lymphocytes # (A) 0.9 k/uL (1.0-4.8); Lymphocytes % (A) 15 %; MCH 26.1 pg (25.0-35.0); MCHC 30.6 g/dL (31.0-37.0); Mean Platelet Volume 7.4; Monocytes # (A) 0.3 k/uL (0-1.0); Monocytes % (A) 5 %; Neutrophils # (A) 4.2 k/uL (1.3-7.7); Neutrophils % (A) 74 %; Platelet Count 318 k/uL (150-450); RBC 4.07 m/uL (3.80-5.40); RDW 16.7 % (11.5-15.5); WBC 5.6 k/uL (3.8-10.6)
[2021-08-18 22:38] LABS: MCV 85.4 fL (80.0-100.0)
[2021-08-18 22:47] LABS: African American GFR (CKD) >90 (>60 ml/min/1.73 sqM); Anion Gap 7 mmol/L; Blood Urea Nitrogen 19 mg/dL (7-17); Calcium 9.3 mg/dL (8.4-10.2); Carbon Dioxide 23 mmol/L (22-30); Chloride 108 mmol/L (98-107); Glucose 111 mg/dL (74-99); Non-African American GFR(CKD) 82 (>60 ml/min/1.73 sqM); Sodium 138 mmol/L (137-145)
[2021-08-18] MEDS ORDERED: HYDROmorphone 0.5 MG/0.5 ML SYRINGE IVP STA (23:03)
[2021-08-18 23:35] VITALS: BP 110/84; PULSE 84; RESP 18
== END 2021-08-18 23:50 | disposition home or self-care (01) ==
LOC: EC 21:39
DX: R56.9 Unspecified convulsions (principal); G89.29 Other chronic pain; R10.2 Pelvic and perineal pain; K21.9 Gastro-esophageal reflux disease without esophagitis; Z79.1 Long term (current) use of non-steroidal anti-inflammatories (NSAID)
CPT/HCPCS: 36415; 93005; 80048; 85025; 99285; 96374; 96375; J1170 ×2

== ENCOUNTER 2021-08-22 15:24 | Emergency (ER) | payer BC ==
[2021-08-22 15:37] VITALS: TEMP 98.2
[2021-08-22] MEDS ORDERED: SODIUM CHLORIDE 0.9% 1,000 ML IV STA (15:51)
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
[2021-08-22] MEDS ORDERED: KETOROLAC 15 MG/ML 1 ML VIAL IVP STA (16:23)
[2021-08-22] MEDS ORDERED: diphenhydrAMINE 50 MG/ML 1 ML VIAL IVP STA (16:28)
[2021-08-22 16:34] LABS: Anisocytosis Slight; Basophils % (A) 1 %; Eosinophils # (A) 0.3 k/uL (0-0.7); Eosinophils % (A) 4 %; HCT 35.5 % (34.0-46.0); HGB 11.1 gm/dL (11.4-16.0); Hypochromasia Marked; Lymphocytes # (A) 1.3 k/uL (1.0-4.8); Lymphocytes % (A) 19 %; MCH 26.5 pg (25.0-35.0); MCHC 31.1 g/dL (31.0-37.0); MCV 85.2 fL (80.0-100.0); Mean Platelet Volume 7.2; Monocytes # (A) 0.4 k/uL (0-1.0); Monocytes % (A) 6 %; Neutrophils # (A) 4.8 k/uL (1.3-7.7); Neutrophils % (A) 68 %; Platelet Count 298 k/uL (150-450); RBC 4.17 m/uL (3.80-5.40); RDW 16.5 % (11.5-15.5); WBC 7.1 k/uL (3.8-10.6)
[2021-08-22 16:39] LABS: Sodium 136 mmol/L (137-145)
[2021-08-22 16:42] LABS: AST 23 U/L (14-36); African American GFR (CKD) >90 (>60 ml/min/1.73 sqM); Anion Gap 7 mmol/L; Blood Urea Nitrogen 20 mg/dL (7-17); Carbon Dioxide 23 mmol/L (22-30); Chloride 106 mmol/L (98-107); Glucose 93 mg/dL (74-99); Non-African American GFR(CKD) 85 (>60 ml/min/1.73 sqM); Potassium 5.7 mmol/L (3.5-5.1); Total Bilirubin 0.3 mg/dL (0.2-1.3); Total Protein 6.7 g/dL (6.3-8.2)
[2021-08-22 16:43] LABS: ALT 14 U/L (4-34); Alkaline Phosphatase 55 U/L (38-126); Calcium 8.7 mg/dL (8.4-10.2)
[2021-08-22 17:13] VITALS: PULSE 84
[2021-08-22 18:40] VITALS: BP 130/69; RESP 18
== END 2021-08-22 18:40 | disposition home or self-care (01) ==
LOC: EC 15:24
DX: G40.409 Other generalized epilepsy and epileptic syndromes, not intractable, without status epilepticus (principal); K21.9 Gastro-esophageal reflux disease without esophagitis; Z79.1 Long term (current) use of non-steroidal anti-inflammatories (NSAID)
CPT/HCPCS: 36415; 93005; 80053; 83735; 85025; 99285; 96374; 96375; 96361; J1200; J1885

== ENCOUNTER 2021-08-22 20:43 | Emergency (ER) | payer BC ==
[2021-08-22 20:59] VITALS: TEMP 98.2
[2021-08-22 22:22] LABS: Anisocytosis Slight; Basophils % (A) 0 %; Eosinophils # (A) 0.2 k/uL (0-0.7); Eosinophils % (A) 3 %; HCT 34.6 % (34.0-46.0); HGB 10.4 gm/dL (11.4-16.0); Hypochromasia Marked; Lymphocytes # (A) 1.6 k/uL (1.0-4.8); Lymphocytes % (A) 19 %; MCH 25.4 pg (25.0-35.0); MCHC 30.2 g/dL (31.0-37.0); MCV 84.3 fL (80.0-100.0); Monocytes # (A) 0.5 k/uL (0-1.0); Monocytes % (A) 6 %; Neutrophils # (A) 5.9 k/uL (1.3-7.7); Neutrophils % (A) 68 %; Platelet Count 333 k/uL (150-450); RDW 16.5 % (11.5-15.5); WBC 8.7 k/uL (3.8-10.6)
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
[2021-08-22 22:31] LABS: ALT 13 U/L (4-34); AST 23 U/L (14-36); African American GFR (CKD) >90 (>60 ml/min/1.73 sqM); Albumin 3.8 g/dL (3.5-5.0); Alkaline Phosphatase 55 U/L (38-126); Anion Gap 6 mmol/L; Blood Urea Nitrogen 20 mg/dL (7-17); Calcium 8.9 mg/dL (8.4-10.2); Carbon Dioxide 24 mmol/L (22-30); Chloride 106 mmol/L (98-107); Glucose 90 mg/dL (74-99); Magnesium 2.5 mg/dL (1.6-2.3); Non-African American GFR(CKD) >90 (>60 ml/min/1.73 sqM); Potassium 4.7 mmol/L (3.5-5.1); Sodium 136 mmol/L (137-145); Total Bilirubin 0.3 mg/dL (0.2-1.3); Total Protein 6.5 g/dL (6.3-8.2)
[2021-08-22] MEDS ORDERED: DIVALPROEX 500 MG TABLET.DR PO STA (23:11)
[2021-08-22] MEDS ORDERED: KETOROLAC 30 MG/ML 1 ML VIAL IVP STA (23:22)
[2021-08-22] MEDS ORDERED: diphenhydrAMINE 50 MG/ML 1 ML VIAL IVP STA (23:50)
[2021-08-23 01:00] VITALS: BP 120/68; PULSE 70; RESP 18
== END 2021-08-23 01:00 | disposition home or self-care (01) ==
LOC: EC 20:43
DX: R56.9 Unspecified convulsions (principal); K21.9 Gastro-esophageal reflux disease without esophagitis; Z79.1 Long term (current) use of non-steroidal anti-inflammatories (NSAID)
CPT/HCPCS: 36415; 93005; 80164; 80053; 83735; 85025; 99285; 96374; 96375; J1200; J1885

== ENCOUNTER 2021-08-31 18:42 | Emergency (ER) | payer BC ==
[2021-08-31] MEDS ORDERED: SODIUM CHLORIDE 0.9% 1,000 ML IV STA (19:15)
[2021-08-31] MEDS ORDERED: ONDANSETRON 4 MG/2 ML VIAL IVP STA (19:24)
[2021-08-31] MEDS ORDERED: HYDROmorphone 1 MG/ML 1 ML SYRINGE IVP STA (19:24)
[2021-08-31] MEDS ORDERED: KETOROLAC 15 MG/ML 1 ML VIAL IVP STA (19:24)
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
[2021-08-31] MEDS ORDERED: HYDROmorphone 1 MG/ML 1 ML SYRINGE IM STA ×2 (20:09→22:07)
[2021-08-31] MEDS ORDERED: KETOROLAC 15 MG/ML 1 ML VIAL IM STA (20:09)
[2021-08-31] MEDS ORDERED: ONDANSETRON ODT 4 MG TAB PO STA (20:10)
[2021-08-31 20:22] LABS: Appearance,Urine Clear (Clear); Bilirubin,Urine Negative (Negative); Blood,Urine Negative (Negative); Color,Urine Light Yellow; Glucose,Urine (UA) Negative (Negative); Ketones,Urine Negative (Negative); Leukocyte Esterase,Urine Negative (Negative); Nitrite,Urine Negative (Negative); PH, Urine 7.5 (5.0-8.0); Protein,Urine Negative (Negative); Specific Gravity,Urine 1.014 (1.001-1.035); Urobilinogen,Urine <2.0 mg/dL (<2.0)
--- NOTE | 2021-08-31 20:43 | XR ---
EXAMINATION TYPE: XR KUB DATE OF EXAM: 08/31/2021 7:42 PM INDICATION: Patient age:Female; 31 years old; Reason for study: abdominal pain; COMPARISON: 08/13/2021 TECHNIQUE: One radiographic view of the abdomen was obtained. FINDINGS: The bowel gas pattern is nonspecific without dilated loops of small or large bowel. There i s no evidence for organomegaly or pneumoperitoneum. The osseous structures are intact. No abnormal calcifications are present. Fecal material and gas are demonstrated throughout the colon and rectum. Cholecystectomy clips are present. IMPRESSION: Nonspecific bowel gas pattern without radiographic evidence for acute process.
[2021-08-31 20:55] LABS: Anisocytosis Slight; Basophils % (A) 0 %; Eosinophils # (A) 0.2 k/uL (0-0.7); Eosinophils % (A) 3 %; HCT 33.1 % (34.0-46.0); HGB 10.1 gm/dL (11.4-16.0); Hypochromasia Marked; Lymphocytes # (A) 1.5 k/uL (1.0-4.8); Lymphocytes % (A) 18 %; MCH 26.5 pg (25.0-35.0); MCHC 30.6 g/dL (31.0-37.0); MCV 86.7 fL (80.0-100.0); Monocytes # (A) 0.4 k/uL (0-1.0); Monocytes % (A) 4 %; Neutrophils # (A) 5.9 k/uL (1.3-7.7); Neutrophils % (A) 72 %; Platelet Count 314 k/uL (150-450); RBC 3.82 m/uL (3.80-5.40); RDW 16.7 % (11.5-15.5); WBC 8.2 k/uL (3.8-10.6)
[2021-08-31 21:04] LABS: ALT 12 U/L (4-34); AST 26 U/L (14-36); African American GFR (CKD) >90 (>60 ml/min/1.73 sqM); Albumin 3.7 g/dL (3.5-5.0); Alkaline Phosphatase 43 U/L (38-126); Anion Gap 6 mmol/L; Blood Urea Nitrogen 12 mg/dL (7-17); Calcium 9.3 mg/dL (8.4-10.2); Carbon Dioxide 23 mmol/L (22-30); Chloride 108 mmol/L (98-107); Glucose 96 mg/dL (74-99); Non-African American GFR(CKD) >90 (>60 ml/min/1.73 sqM); Potassium 4.9 mmol/L (3.5-5.1); Sodium 137 mmol/L (137-145); Total Bilirubin 0.5 mg/dL (0.2-1.3); Total Protein 6.5 g/dL (6.3-8.2)
--- NOTE | 2021-08-31 21:22 | US ---
EXAMINATION TYPE: US pelvis complete transvag DATE OF EXAM: 08/31/2021 COMPARISON: CT, US CLINICAL HISTORY: Pelvic pain. Pelvic pain. Hx endometriosis, hysterectomy 2019. Pt states she has shoshana th ovaries. G0. TECHNIQUE: Transvaginal (TV) and Transabdominal (TA) . Date of LMP: Hysterectomy 2019. EXAM MEASUREMENTS: 1. Uterus: Hysterectomy. 2. Endometrium: - 3. Right Ovary: Not visualized. 4. Left Ovary: Not visualized. 5. Bilateral Adnexa: Appear to be wnl 6. Posterior cul-de-sac: Fluid seen measurin.7 x 2.1 x 2.4 cm. IMPRESSION: 1. No evidence for acute process. 2. Small amount of fluid within the cul-de-sac which is nonspecific.
[2021-08-31] MEDS ORDERED: ACETAMINOPHEN TAB 500 MG TAB PO STA (22:07)
[2021-08-31 22:55] VITALS: BP 136/72; PULSE 82; RESP 20; TEMP 97.7
== END 2021-08-31 22:17 | disposition home or self-care (01) ==
LOC: EC 18:42
DX: R10.2 Pelvic and perineal pain (principal); K21.9 Gastro-esophageal reflux disease without esophagitis; G40.909 Epilepsy, unspecified, not intractable, without status epilepticus; Z79.899 Other long term (current) drug therapy
CPT/HCPCS: 36415; 80053; 85025; 81003; 74018; 76856; 76830; 99284; 96372; J1170; J1885

== ENCOUNTER 2021-09-08 19:12 | Emergency (ER) | payer BC ==
[2021-09-08 19:16] VITALS: RESP 18; TEMP 98.2
[2021-09-08] MEDS ORDERED: ONDANSETRON 4 MG/2 ML VIAL IVP STA (20:20)
[2021-09-08] MEDS ORDERED: SODIUM CHLORIDE 0.9% 1,000 ML IV STA (20:20)
[2021-09-08] MEDS ORDERED: HYDROmorphone 0.5 MG/0.5 ML SYRINGE IVP STA ×2 (20:20→22:09)
[2021-09-08 21:15] LABS: Appearance,Urine Cloudy (Clear); Bacteria,Urine Occasional /hpf; Bilirubin,Urine Negative (Negative); Blood,Urine Negative (Negative); Color,Urine Yellow; Glucose,Urine (UA) Negative (Negative); Hyaline Casts,Urine 3 /lpf (0-2); Ketones,Urine Negative (Negative); Leukocyte Esterase,Urine Negative (Negative); Mucus,Urine Many /hpf; Nitrite,Urine Negative (Negative); PH, Urine 6.5 (5.0-8.0); Protein,Urine Trace (Negative); RBC,Urine 1 /hpf (0-5); Specific Gravity,Urine 1.024 (1.001-1.035); Squamous Epithelial Cell,Urine 5 /hpf (0-4); Urobilinogen,Urine <2.0 mg/dL (<2.0); WBC,Urine 2 /hpf (0-5)
[2021-09-08 21:38] LABS: Anisocytosis Slight; Basophils % (A) 0 %; Eosinophils # (A) 0.4 k/uL (0-0.7); Eosinophils % (A) 5 %; HCT 33.1 % (34.0-46.0); HGB 10.2 gm/dL (11.4-16.0); Hypochromasia Marked; Lymphocytes # (A) 1.8 k/uL (1.0-4.8); Lymphocytes % (A) 22 %; MCH 26.2 pg (25.0-35.0); MCHC 30.7 g/dL (31.0-37.0); MCV 85.4 fL (80.0-100.0); Mean Platelet Volume 7.3; Monocytes # (A) 0.4 k/uL (0-1.0); Monocytes % (A) 5 %; Neutrophils # (A) 5.2 k/uL (1.3-7.7); Neutrophils % (A) 65 %; Platelet Count 344 k/uL (150-450); RBC 3.87 m/uL (3.80-5.40); RDW 16.2 % (11.5-15.5)
[2021-09-08 21:46] LABS: ALT 44 U/L (4-34); AST 18 U/L (14-36); African American GFR (CKD) >90 (>60 ml/min/1.73 sqM); Albumin 3.6 g/dL (3.5-5.0); Alkaline Phosphatase 56 U/L (38-126); Anion Gap 5 mmol/L; Blood Urea Nitrogen 13 mg/dL (7-17); Calcium 8.9 mg/dL (8.4-10.2); Carbon Dioxide 23 mmol/L (22-30); Chloride 107 mmol/L (98-107); Glucose 92 mg/dL (74-99); Magnesium 2.1 mg/dL (1.6-2.3); Non-African American GFR(CKD) >90 (>60 ml/min/1.73 sqM); Sodium 135 mmol/L (137-145); Total Bilirubin 0.3 mg/dL (0.2-1.3); Total Protein 6.1 g/dL (6.3-8.2)
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
[2021-09-08 23:11] VITALS: BP 120/42; PULSE 62
== END 2021-09-08 22:56 | disposition home or self-care (01) ==
LOC: EC 19:12
DX: N80.9 Endometriosis, unspecified (principal); K21.9 Gastro-esophageal reflux disease without esophagitis; Z79.890 Hormone replacement therapy
CPT/HCPCS: 36415; 80053; 83735; 85025; 81001; 99284; 96374; 96375; 96376; 96361; J2405; J1170

== ENCOUNTER 2021-09-09 10:44 | Emergency (ER) | payer BC, OTHER ==
[2021-09-09] MEDS ORDERED: HYDROmorphone 1 MG/ML 1 ML SYRINGE IVP STA ×2 (11:21→13:54)
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
[2021-09-09 12:04] LABS: ALT 112 U/L (4-34); African American GFR (CKD) >90 (>60 ml/min/1.73 sqM); Albumin 3.3 g/dL (3.5-5.0); Anion Gap 2 mmol/L; Blood Urea Nitrogen 9 mg/dL (7-17); Calcium 8.4 mg/dL (8.4-10.2); Carbon Dioxide 22 mmol/L (22-30); Chloride 111 mmol/L (98-107); Glucose 84 mg/dL (74-99); Non-African American GFR(CKD) >90 (>60 ml/min/1.73 sqM); Sodium 135 mmol/L (137-145); Total Bilirubin 0.5 mg/dL (0.2-1.3)
[2021-09-09 12:09] LABS: Anisocytosis Slight; Basophils % (A) 0 %; Eosinophils # (A) 0.3 k/uL (0-0.7); Eosinophils % (A) 5 %; HCT 33.8 % (34.0-46.0); HGB 10.4 gm/dL (11.4-16.0); Hypochromasia Marked; Lymphocytes # (A) 0.9 k/uL (1.0-4.8); Lymphocytes % (A) 14 %; MCH 26.7 pg (25.0-35.0); MCHC 30.7 g/dL (31.0-37.0); MCV 86.9 fL (80.0-100.0); Mean Platelet Volume 8.6; Monocytes # (A) 0.4 k/uL (0-1.0); Monocytes % (A) 6 %; Neutrophils # (A) 4.9 k/uL (1.3-7.7); Neutrophils % (A) 74 %; Platelet Count 288 k/uL (150-450); RBC 3.89 m/uL (3.80-5.40); WBC 6.7 k/uL (3.8-10.6)
[2021-09-09 12:18] LABS: AST 93 U/L (14-36); Alkaline Phosphatase 61 U/L (38-126); Potassium 4.8 mmol/L (3.5-5.1)
[2021-09-09] MEDS ORDERED: diphenhydrAMINE 50 MG/ML 1 ML VIAL IVP STA (14:01)
[2021-09-09 16:11] VITALS: BP 126/81; PULSE 82; RESP 20; TEMP 97.6
== END 2021-09-09 16:46 | disposition home or self-care (01) ==
LOC: EC 10:44
DX: R10.2 Pelvic and perineal pain (principal); Z79.1 Long term (current) use of non-steroidal anti-inflammatories (NSAID); K21.9 Gastro-esophageal reflux disease without esophagitis
CPT/HCPCS: 36415; 80053; 85025; 80143; 99284; 96374; 96375; 96376; J1200; J1170

== ENCOUNTER 2021-09-18 00:25 | Emergency (ER) | payer BC, OTHER ==
[2021-09-18 00:32] VITALS: TEMP 98.2
[2021-09-18] MEDS ORDERED: DIAZEPAM 5 MG/ML 2 ML INJ IVP STA (00:44)
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
[2021-09-18 01:10] LABS: Anisocytosis Slight; Basophils % (A) 0 %; Eosinophils # (A) 0.2 k/uL (0-0.7); Eosinophils % (A) 4 %; HCT 31.7 % (34.0-46.0); HGB 9.6 gm/dL (11.4-16.0); Hypochromasia Marked; Lymphocytes # (A) 1.3 k/uL (1.0-4.8); Lymphocytes % (A) 24 %; MCH 26.1 pg (25.0-35.0); MCHC 30.4 g/dL (31.0-37.0); MCV 85.7 fL (80.0-100.0); Mean Platelet Volume 7.2; Monocytes # (A) 0.3 k/uL (0-1.0); Monocytes % (A) 5 %; Neutrophils # (A) 3.6 k/uL (1.3-7.7); Neutrophils % (A) 65 %; Platelet Count 285 k/uL (150-450); RBC 3.69 m/uL (3.80-5.40); WBC 5.5 k/uL (3.8-10.6)
[2021-09-18 01:24] VITALS: RESP 18
[2021-09-18 01:24] LABS: ALT 20 U/L (4-34); AST 27 U/L (14-36); African American GFR (CKD) >90 (>60 ml/min/1.73 sqM); Albumin 3.3 g/dL (3.5-5.0); Alkaline Phosphatase 56 U/L (38-126); Anion Gap 5 mmol/L; Blood Urea Nitrogen 14 mg/dL (7-17); Calcium 8.3 mg/dL (8.4-10.2); Carbon Dioxide 24 mmol/L (22-30); Chloride 107 mmol/L (98-107); Glucose 118 mg/dL (74-99); Lithium 0.7 mmol/L; Magnesium 2.2 mg/dL (1.6-2.3); Non-African American GFR(CKD) >90 (>60 ml/min/1.73 sqM); Phosphorus 3.9 mg/dL (2.5-4.5); Potassium 4.1 mmol/L (3.5-5.1); Sodium 136 mmol/L (137-145); Total Bilirubin 0.3 mg/dL (0.2-1.3); Total Protein 5.8 g/dL (6.3-8.2)
[2021-09-18] MEDS ORDERED: HYDROmorphone 0.5 MG/0.5 ML SYRINGE IVP STA (01:58)
[2021-09-18] MEDS ORDERED: KETOROLAC 15 MG/ML 1 ML VIAL IVP STA (03:23)
[2021-09-18 03:43] VITALS: BP 96/52; PULSE 76
== END 2021-09-18 03:43 | disposition home or self-care (01) ==
LOC: EC 00:25
DX: G40.909 Epilepsy, unspecified, not intractable, without status epilepticus (principal); R10.9 Unspecified abdominal pain; K21.9 Gastro-esophageal reflux disease without esophagitis; Z79.1 Long term (current) use of non-steroidal anti-inflammatories (NSAID)
CPT/HCPCS: 36415; 80053; 80178; 83735; 84100; 85025; 99284; 96374; 96375; J3360; J1885; J1170

== ENCOUNTER 2021-09-23 20:21 | Emergency (ER) | payer BC, OTHER ==
[2021-09-23 20:30] VITALS: TEMP 97.8
[2021-09-23] MEDS ORDERED: KETOROLAC 15 MG/ML 1 ML VIAL IVP STA (21:45)
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
--- NOTE | 2021-09-23 22:41 | CT ---
EXAMINATION TYPE: CT abdomen pelvis wo con DATE OF EXAM: 09/23/2021 COMPARISON: None HISTORY: Left lower quadrant abdominal pain. CT DLP: 1806.4 mGycm Automated exposure control for dose reduction was used. Images obtained from the diaphragm to the floor the pelvis without contrast. Lung bases are clear of infiltrate. There is no pleural effusion. Heart size is normal. There is no p ericardial effusion. There is previous gastric bariatric surgery. Liver and spleen are intact. There is no pancreatic mass. There are clips from cholecystectomy. The bile ducts are not dilated. There is no adrenal mass. Kidneys show normal size and contour. There is no hydronephrosis. Ureters a re not dilated. There is no retroperitoneal adenopathy. Bladder distends smoothly. There is no inguin al hernia. There is no free fluid in the pelvis. There is no mesenteric edema. There is no ascites or free air. Appendix is medial and appears normal. There is no sign of a bowel obstruction. Lumbar vertebrae have normal alignment. There is no compression fracture. Disc spaces are normal. The bony pelvis is intact. Proximal femurs and hip joints are intact. IMPRESSION: Normal appendix. No acute abnormality of the abdomen and pelvis. No adverse change compared to the ol d exam.
[2021-09-23] MEDS ORDERED: HYDROmorphone 1 MG/ML 1 ML SYRINGE IM STA (22:46)
[2021-09-23 23:04] LABS: Appearance,Urine Clear (Clear); Bilirubin,Urine Negative (Negative); Blood,Urine Negative (Negative); Color,Urine Light Yellow; Glucose,Urine (UA) Negative (Negative); Ketones,Urine Negative (Negative); Leukocyte Esterase,Urine Small (Negative); Nitrite,Urine Negative (Negative); Protein,Urine Negative (Negative); RBC,Urine 1 /hpf (0-5); Specific Gravity,Urine 1.013 (1.001-1.035); Squamous Epithelial Cell,Urine 7 /hpf (0-4); Urobilinogen,Urine <2.0 mg/dL (<2.0); WBC,Urine 4 /hpf (0-5)
[2021-09-23 23:37] VITALS: RESP 16
[2021-09-23 23:38] VITALS: BP 124/76; PULSE 88
== END 2021-09-23 23:42 | disposition home or self-care (01) ==
LOC: EC 20:21
DX: R10.32 Left lower quadrant pain (principal); K21.9 Gastro-esophageal reflux disease without esophagitis; R19.7 Diarrhea, unspecified; Z79.890 Hormone replacement therapy
CPT/HCPCS: 99284 ×2; 96372 ×2; 81001; 74176; J1170

== ENCOUNTER → 2021-10-23 | Outpatient (CLI) | payer OTHER | END | disposition home or self-care (01) | LOC: LABWHC1 09:51 | PROVIDERS: ATTEND Psychiatry & Neurology Neurology | DX: G40.802 Other epilepsy, not intractable, without status epilepticus (principal) | CPT/HCPCS: 36415; 80164 ==

== ENCOUNTER → 2021-10-30 | Outpatient (CLI) | payer BC ==
--- NOTE | 2021-10-30 09:44 | FL ---
EXAMINATION TYPE: FL UGI DATE OF EXAM: 10/30/2021 CLINICAL HISTORY: Status post gastric sleeve Contrast: 2 OZ THIN BARIUM USED. 44 SEC FLUORO TIME. The patient ingested contrast without difficulty or delay. Noted are postsurgical changes of gastric sleeve. There is no evidence for leak or obstruction. Contrast is noted within the duodenum. T here is evidence of moderate reflux during the course of the study. IMPRESSION: Moderate reflux without reflux esophagitis at this time.
== END | disposition home or self-care (01) ==
LOC: RADUSWWP 09:03
PROVIDERS: ATTEND Surgery
DX: K21.9 Gastro-esophageal reflux disease without esophagitis (principal); R63.5 Abnormal weight gain; Z90.3 Acquired absence of stomach [part of]; Z98.84 Bariatric surgery status
CPT/HCPCS: 74240

== ENCOUNTER 2021-11-02 20:39 | Emergency (ER) | payer BC, OTHER ==
[2021-11-02 20:51] VITALS: TEMP 97.8
[2021-11-02] MEDS ORDERED: oxyCODONE-APAP 7.5-325MG 1 EACH TAB PO STA ×2 (21:46→22:53)
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
[2021-11-02 22:10] LABS: Basophils % (A) 0 %; Eosinophils # (A) 0.4 k/uL (0-0.7); Eosinophils % (A) 5 %; HCT 33.4 % (34.0-46.0); HGB 9.8 gm/dL (11.4-16.0); Hypochromasia Marked; Lymphocytes # (A) 1.9 k/uL (1.0-4.8); Lymphocytes % (A) 26 %; MCH 24.2 pg (25.0-35.0); MCHC 29.2 g/dL (31.0-37.0); MCV 82.8 fL (80.0-100.0); Mean Platelet Volume 7.3; Monocytes # (A) 0.4 k/uL (0-1.0); Monocytes % (A) 6 %; Neutrophils # (A) 4.2 k/uL (1.3-7.7); Neutrophils % (A) 60 %; Platelet Count 425 k/uL (150-450); RBC 4.04 m/uL (3.80-5.40); RDW 15.2 % (11.5-15.5)
[2021-11-02 22:19] LABS: ALT 16 U/L (4-34); AST 19 U/L (14-36); African American GFR (CKD) >90 (>60 ml/min/1.73 sqM); Albumin 3.9 g/dL (3.5-5.0); Alkaline Phosphatase 57 U/L (38-126); Anion Gap 5 mmol/L; Blood Urea Nitrogen 18 mg/dL (7-17); Calcium 9.2 mg/dL (8.4-10.2); Carbon Dioxide 26 mmol/L (22-30); Chloride 107 mmol/L (98-107); Glucose 97 mg/dL (74-99); Non-African American GFR(CKD) >90 (>60 ml/min/1.73 sqM); Potassium 4.6 mmol/L (3.5-5.1); Sodium 138 mmol/L (137-145); Total Bilirubin 0.2 mg/dL (0.2-1.3); Total Protein 6.6 g/dL (6.3-8.2)
[2021-11-02 22:24] LABS: Valproic Acid (Depakene) 37.6 ug/mL
[2021-11-02] MEDS ORDERED: DIVALPROEX 500 MG TABLET.DR PO STA (23:56)
[2021-11-03 00:41] VITALS: BP 142/97; PULSE 72; RESP 16
[2021-11-03] MEDS ORDERED: ORPHENADRINE 30 MG/ML 2 ML VIAL IM STA (00:50)
== END 2021-11-03 01:10 | disposition home or self-care (01) ==
LOC: EC 20:39
DX: G40.409 Other generalized epilepsy and epileptic syndromes, not intractable, without status epilepticus (principal); K21.9 Gastro-esophageal reflux disease without esophagitis; Z79.899 Other long term (current) drug therapy
CPT/HCPCS: 36415; 80164; 80053; 85025; 99284; 96372; J2360

== ENCOUNTER → 2021-11-03 | Outpatient (CLI) | payer OTHER | END | disposition home or self-care (01) | LOC: LABWHC1 15:29 | PROVIDERS: ATTEND Surgery | DX: Z53.9 Procedure and treatment not carried out, unspecified reason (principal) ==

== ENCOUNTER 2021-11-18 16:01 | Emergency (ER) | payer OTHER ==
[2021-11-18 16:09] LABS: Glucose,Whole Blood 112 mg/dL (75-99)
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
[2021-11-18 17:16] LABS: Anisocytosis Slight; HCT 32.5 % (34.0-46.0); HGB 9.3 gm/dL (11.4-16.0); Hypochromasia Marked; MCH 23.4 pg (25.0-35.0); MCHC 28.7 g/dL (31.0-37.0); MCV 81.5 fL (80.0-100.0); Mean Platelet Volume 7.2; Platelet Count 322 k/uL (150-450); RBC 3.98 m/uL (3.80-5.40); RDW 16.1 % (11.5-15.5); WBC 6.2 k/uL (3.8-10.6)
[2021-11-18 17:23] LABS: ALT 18 U/L (4-34); AST 24 U/L (14-36); African American GFR (CKD) >90 (>60 ml/min/1.73 sqM); Albumin 3.6 g/dL (3.5-5.0); Alkaline Phosphatase 70 U/L (38-126); Anion Gap 6 mmol/L; Blood Urea Nitrogen 11 mg/dL (7-17); Calcium 8.4 mg/dL (8.4-10.2); Carbon Dioxide 22 mmol/L (22-30); Chloride 108 mmol/L (98-107); Glucose 89 mg/dL (74-99); Magnesium 2.1 mg/dL (1.6-2.3); Non-African American GFR(CKD) >90 (>60 ml/min/1.73 sqM); Potassium 4.4 mmol/L (3.5-5.1); Sodium 136 mmol/L (137-145); Total Bilirubin 0.3 mg/dL (0.2-1.3); Total Protein 6.2 g/dL (6.3-8.2)
[2021-11-18] MEDS ORDERED: MIDAZOLAM 1 MG/ML 5 ML VIAL IV STA (17:36)
[2021-11-18 17:50] VITALS: RESP 18
[2021-11-18 17:58] LABS: Eosinophils # (M) 0.12 k/uL (0-0.7); Lymphocytes # (M) 1.43 k/uL (1.0-4.8); Monocytes # (M) 0.62 k/uL (0-1.0); Neutrophils # (M) 4.03 k/uL (1.3-7.7); Neutrophils % (M) 65 %; Nucleated Red Blood Cells 0 /100 WBC (0-0); Total Cells Counted 100
[2021-11-18 18:08] LABS: Lithium 0.9 mmol/L
[2021-11-18 18:17] LABS: Valproic Acid (Depakene) 26.6 ug/mL
[2021-11-18] MEDS ORDERED: MORPHINE SULFATE 2 MG/ML SYRINGE IVP ONE (18:22)
[2021-11-18 18:45] LABS: Appearance,Urine Cloudy (Clear); Bacteria,Urine Few /hpf; Bilirubin,Urine Negative (Negative); Blood,Urine Negative (Negative); Color,Urine Light Yellow; Glucose,Urine (UA) Negative (Negative); Hyaline Casts,Urine 1 /lpf (0-2); Ketones,Urine Negative (Negative); Leukocyte Esterase,Urine Negative (Negative); Mucus,Urine Rare /hpf; Nitrite,Urine Negative (Negative); PH, Urine 7.5 (5.0-8.0); Protein,Urine Negative (Negative); RBC,Urine 1 /hpf (0-5); Squamous Epithelial Cell,Urine 10 /hpf (0-4); Urobilinogen,Urine <2.0 mg/dL (<2.0); WBC,Urine 3 /hpf (0-5)
[2021-11-18 18:53] VITALS: BP 127/84; PULSE 97
[2021-11-18 18:54] VITALS: TEMP 97.8
[2021-11-18 18:59] LABS: Amphetamine Screen,Urine Not Detected (NotDetected); Barbiturate Screen,Urine Detected (NotDetected); Benzodiazepines Screen,Urine Detected (NotDetected); Cocaine Screen,Urine Not Detected (NotDetected); Methadone Screen, Urine Not Detected (NotDetected); Opiate Screen,Urine Detected (NotDetected); Oxycodone Screen, Urine Detected (NotDetected); Phencyclidine Screen,Urine Not Detected (NotDetected); Tricyclic Antidepressant,Urine Detected (NotDetected); Urn Cannabinoid Scrn Not Detected (NotDetected)
== END 2021-11-18 18:58 | disposition home or self-care (01) ==
LOC: EC 16:01
DX: G40.909 Epilepsy, unspecified, not intractable, without status epilepticus (principal); K21.9 Gastro-esophageal reflux disease without esophagitis; Z79.83 Long term (current) use of bisphosphonates
CPT/HCPCS: 36415; 93005; 80164; 80053; 80175; 80178; 83735; 85025; 81001; 81025; 80306; 96374; 99285; J2270

== ENCOUNTER 2021-11-20 17:06 | Emergency (ER) | payer OTHER ==
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
[2021-11-20 17:28] LABS: Anisocytosis Slight; HCT 31.6 % (34.0-46.0); HGB 9.1 gm/dL (11.4-16.0); Hypochromasia Marked; MCH 23.7 pg (25.0-35.0); MCV 81.9 fL (80.0-100.0); Mean Platelet Volume 6.6; Platelet Count 378 k/uL (150-450); RBC 3.85 m/uL (3.80-5.40); RDW 16.2 % (11.5-15.5); WBC 5.9 k/uL (3.8-10.6)
[2021-11-20 17:36] LABS: ALT 14 U/L (4-34); AST 22 U/L (14-36); African American GFR (CKD) >90 (>60 ml/min/1.73 sqM); Albumin 3.9 g/dL (3.5-5.0); Alkaline Phosphatase 60 U/L (38-126); Anion Gap 6 mmol/L; Blood Urea Nitrogen 15 mg/dL (7-17); Calcium 8.9 mg/dL (8.4-10.2); Carbon Dioxide 24 mmol/L (22-30); Chloride 107 mmol/L (98-107); Glucose 85 mg/dL (74-99); Magnesium 1.9 mg/dL (1.6-2.3); Non-African American GFR(CKD) 88 (>60 ml/min/1.73 sqM); Potassium 4.9 mmol/L (3.5-5.1); Sodium 137 mmol/L (137-145); Total Bilirubin 0.3 mg/dL (0.2-1.3); Total Protein 6.6 g/dL (6.3-8.2)
[2021-11-20 18:17] LABS: Eosinophils # (M) 0.06 k/uL (0-0.7); Lymphocytes # (M) 1.77 k/uL (1.0-4.8); Monocytes # (M) 0.47 k/uL (0-1.0); Neutrophils % (M) 61 %; Nucleated Red Blood Cells 0 /100 WBC (0-0); Total Cells Counted 100
[2021-11-20] MEDS: KETOROLAC 15 MG/ML 1 ML VIAL IVP STA ×2 (18:50→18:52)
[2021-11-20] MEDS ORDERED: ACETAMINOPHEN TAB 500 MG TAB PO STA (18:52)
[2021-11-20 19:01] VITALS: BP 128/78; PULSE 78; RESP 16; TEMP 98.2
== END 2021-11-20 19:00 | disposition home or self-care (01) ==
LOC: EC 17:06
DX: R56.9 Unspecified convulsions (principal); D53.9 Nutritional anemia, unspecified; K21.9 Gastro-esophageal reflux disease without esophagitis; Z79.899 Other long term (current) drug therapy
CPT/HCPCS: 36415; 80053; 83735; 85025; 93005; 99284

== ENCOUNTER 2021-11-27 09:37 | Emergency (ER) | payer OTHER ==
[2021-11-27 10:10] VITALS: TEMP 97.9
[2021-11-27] MEDS ORDERED: SODIUM CHLORIDE 0.9% 1,000 ML IV STA (10:35)
[2021-11-27] MEDS ORDERED: HYDROmorphone 0.5 MG/0.5 ML SYRINGE IVP STA ×2 (10:35→16:18)
[2021-11-27] MEDS ORDERED: LORazepam 1 MG TAB PO STA (10:58)
[2021-11-27] MEDS ORDERED: LORazepam 0.5 MG TAB PO STA (11:02)
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
--- NOTE | 2021-11-27 11:53 | US ---
EXAMINATION TYPE: US transvaginal plus Doppler DATE OF EXAM: 11/27/2021 COMPARISON: 08/31/2021 CLINICAL HISTORY: 31-year-old female Pelvic pain, hx of endometriosis . Uterus removed 2019. Right s abdoul pain per patient. TECHNIQUE: Transvaginal (TV). Color Doppler and spectral waveform analysis of the ovarian arteries a nd veins. Date of LMP: N/A FINDINGS: EXAM MEASUREMENTS: Right Ovary: Questionably visualized 2.4 x 1.8 x 1.6 cm Order Processing Specialist notes:Limited visualization due to patient pain and hard breathing 1. Uterus: Surgically absent 2. Endometrium: Surgically absent 3. Right Ovary: Possible right ovary seen vs right adnexal cyst measuring 2.0 x 1.5 x 1.4 4. Left Ovary: Obscured by overlying bowel gas Spectral, color and waveform doppler imaging shows good arterial and venous flow within the right o vary; there is no evidence for ovarian torsion. 5. Bilateral Adnexa: Mild free fluid in right adnexa 6. Posterior cul-de-sac: no free fluid seen IMPRESSION: There is small amount of right adnexal free fluid within adjacent 2.0 cm right ovarian cyst versus pe ritoneal inclusion cyst. Uterus is absent. Unable to visualize the left ovary.
[2021-11-27 12:10] LABS: Appearance,Urine Clear (Clear); Bilirubin,Urine Negative (Negative); Blood,Urine Negative (Negative); Color,Urine Light Yellow; Glucose,Urine (UA) Negative (Negative); Ketones,Urine Negative (Negative); Leukocyte Esterase,Urine Negative (Negative); Nitrite,Urine Negative (Negative); PH, Urine 6.5 (5.0-8.0); Protein,Urine Negative (Negative); Specific Gravity,Urine 1.017 (1.001-1.035); Urobilinogen,Urine <2.0 mg/dL (<2.0)
[2021-11-27 13:29] LABS: Anisocytosis Slight; Basophils % (A) 0 %; Eosinophils # (A) 0.2 k/uL (0-0.7); Eosinophils % (A) 4 %; HCT 30.6 % (34.0-46.0); HGB 8.7 gm/dL (11.4-16.0); Hypochromasia Marked; Lymphocytes # (A) 0.9 k/uL (1.0-4.8); Lymphocytes % (A) 20 %; MCH 23.5 pg (25.0-35.0); MCHC 28.5 g/dL (31.0-37.0); MCV 82.6 fL (80.0-100.0); Mean Platelet Volume 6.9; Monocytes # (A) 0.3 k/uL (0-1.0); Monocytes % (A) 6 %; Neutrophils % (A) 67 %; Platelet Count 388 k/uL (150-450); RBC 3.71 m/uL (3.80-5.40); RDW 16.7 % (11.5-15.5); WBC 4.5 k/uL (3.8-10.6)
[2021-11-27] MEDS ORDERED: LORazepam 2 MG/ML INJ IV STA (14:03)
[2021-11-27 14:18] LABS: ALT 233 U/L (4-34); AST 248 U/L (14-36); African American GFR (CKD) >90 (>60 ml/min/1.73 sqM); Albumin 3.5 g/dL (3.5-5.0); Alkaline Phosphatase 108 U/L (38-126); Anion Gap 4 mmol/L; Blood Urea Nitrogen 13 mg/dL (7-17); C Reactive Protein 0.8 mg/dL (<1.0); Calcium 8.2 mg/dL (8.4-10.2); Carbon Dioxide 23 mmol/L (22-30); Chloride 111 mmol/L (98-107); Glucose 88 mg/dL (74-99); Non-African American GFR(CKD) >90 (>60 ml/min/1.73 sqM); Potassium 5.2 mmol/L (3.5-5.1); Sodium 138 mmol/L (137-145); Total Bilirubin 0.2 mg/dL (0.2-1.3); Total Protein 5.8 g/dL (6.3-8.2)
[2021-11-27 14:40] LABS: Erythrocyte Sedimentation Rate 8 mm/hr (0-20)
[2021-11-27] MEDS ORDERED: MORPHINE SULFATE 2 MG/ML SYRINGE IM STA (15:05)
[2021-11-27 16:39] VITALS: BP 127/69; PULSE 100; RESP 12
== END 2021-11-27 17:29 | disposition home or self-care (01) ==
LOC: EC 09:37
DX: N80.9 Endometriosis, unspecified (principal); K21.9 Gastro-esophageal reflux disease without esophagitis; Z79.83 Long term (current) use of bisphosphonates; Z88.6 Allergy status to analgesic agent
CPT/HCPCS: 36415; 80053; 85652; 85025; 86140; 81003; 93976; 76830; 99284; 96374; 96375; 96372; 96361; 96376; J2060; J2270; J1170

== ENCOUNTER 2021-12-02 12:19 | Emergency (ER) | payer OTHER ==
[2021-12-02 12:42] VITALS: RESP 18; TEMP 98
[2021-12-02] MEDS ORDERED: oxyCODONE-APAP 10-325MG 1 EACH TAB PO STA (15:19)
[2021-12-02] MEDS ORDERED: MORPHINE SULFATE 2 MG/ML SYRINGE IM STA (16:05)
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
--- NOTE | 2021-12-02 17:16 | US ---
EXAMINATION TYPE: US transvaginal DATE OF EXAM: 12/02/2021 COMPARISON: Transvaginal (2021. CLINICAL HISTORY: r/o torsion. right pelvic pain. Uterus removed. TECHNIQUE: Transvaginal (TV). ER patient Date of LMP: Unknown EXAM MEASUREMENTS: 1. Uterus: Surgically absent 2. Endometrium: Surgically absent 3. Right Ovary: Obscured by overlying bowel gas 4. Left Ovary: Obscured by overlying bowel gas 5. Bilateral Adnexa: no free fluid 6. Posterior cul-de-sac: at vaginal cuff/posterior cul de sac, possible cyst lesion seen = 1.5 x 1. 9 x 1.3 cm vs fluid collection IMPRESSION: 1. Nonvisualization of the ovaries due to bowel gas. 2. Redemonstration of fluid in the cul-de-sac which could represent a peritoneal inclusion cyst.
[2021-12-02 17:47] VITALS: BP 132/78; PULSE 80
== END 2021-12-02 17:47 | disposition home or self-care (01) ==
LOC: EC 12:19
DX: N80.9 Endometriosis, unspecified (principal); Z88.6 Allergy status to analgesic agent; Z79.899 Other long term (current) drug therapy
CPT/HCPCS: 99284; 96372; 76830; J2270

== ENCOUNTER 2021-12-29 21:11 | Emergency (ER) | payer OTHER ==
[2021-12-29 21:19] VITALS: TEMP 97.9
[2021-12-29] MEDS ORDERED: HYDROmorphone 1 MG/ML 1 ML SYRINGE IM STA ×2 (22:02→22:32)
[2021-12-29 22:58] LABS: Appearance,Urine Clear (Clear); Bilirubin,Urine Negative (Negative); Blood,Urine Negative (Negative); Color,Urine Light Yellow; Glucose,Urine (UA) Negative (Negative); Ketones,Urine Negative (Negative); Leukocyte Esterase,Urine Negative (Negative); Nitrite,Urine Negative (Negative); PH, Urine 6.5 (5.0-8.0); Protein,Urine Negative (Negative); Specific Gravity,Urine 1.014 (1.001-1.035); Urobilinogen,Urine <2.0 mg/dL (<2.0)
[2021-12-29] MEDS ORDERED: DEXAMETHASONE SOD PHOSPHATE 10 MG/ML 1 ML VIAL IM STA (23:11)
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
[2021-12-29 23:49] VITALS: BP 142/84; PULSE 75; RESP 18
== END 2021-12-29 23:48 | disposition home or self-care (01) ==
LOC: EC 21:11
DX: G89.29 Other chronic pain (principal); R10.2 Pelvic and perineal pain; K21.9 Gastro-esophageal reflux disease without esophagitis; Z79.83 Long term (current) use of bisphosphonates; Z88.6 Allergy status to analgesic agent
CPT/HCPCS: 81003; 81025; 99284; 96372; J1100; J1170

== ENCOUNTER 2022-01-11 22:16 | Emergency (ER) | payer OTHER ==
[2022-01-11] MEDS ORDERED: SODIUM CHLORIDE 0.9% 1,000 ML IV STA (23:03)
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
[2022-01-11 23:52] LABS: Anisocytosis Slight; Basophils % (A) 0 %; Eosinophils # (A) 0.2 k/uL (0-0.7); Eosinophils % (A) 3 %; HCT 32.5 % (34.0-46.0); HGB 9.8 gm/dL (11.4-16.0); Hypochromasia Marked; Lymphocytes # (A) 1.3 k/uL (1.0-4.8); Lymphocytes % (A) 24 %; MCH 26.7 pg (25.0-35.0); MCHC 30.2 g/dL (31.0-37.0); Mean Platelet Volume 7.1; Monocytes # (A) 0.3 k/uL (0-1.0); Monocytes % (A) 6 %; Neutrophils # (A) 3.6 k/uL (1.3-7.7); Neutrophils % (A) 65 %; Platelet Count 316 k/uL (150-450); RBC 3.67 m/uL (3.80-5.40); RDW 19.8 % (11.5-15.5); WBC 5.6 k/uL (3.8-10.6)
--- NOTE | 2022-01-12 00:04 | CT ---
EXAMINATION TYPE: CT abdomen pelvis wo con DATE OF EXAM: 01/11/2022 COMPARISON: 08/13/2021 and 09/23/2021 HISTORY: epigastric pain CT DLP: 1812 mGycm Automated exposure control for dose reduction was used. There is minimal subsegmental atelectasis at the lung bases. Heart size is normal. No pericardial eff usion. No pleural effusion. Liver spleen appear intact. There are clips from gastric bariatric surgery. No a drenal mass. No pancreatic mass. There are clips from cholecystectomy. The bile ducts are nondilated. Kidneys have normal size and contour. No hydronephrosis. Ureters are not dilated. Bladder distends sm oothly. No inguinal hernia. No free fluid in the pelvis. No site of a pelvic mass. Lumbar vertebra have normal spacing and alignment. No compression fracture. There is hysterectomy. Ap pendix not definitely seen. No sign of thickened appendix.There is some fat stranding around the cecu m. Patient has had recent surgery and this could be postsurgical changes. There is tiny amount of flu id in the left paracolic gutter in the upper pelvis. No ascites or free air. No evidence of a bowel obstruction. No mesenteric edema. IMPRESSION: There is some mild fat stranding around the cecum. There is small amount of fluid in the left paracol ic gutter. Patient had recent surgery and this could be some postsurgical changes. Appendix has maddie l appearance on previous exam but not seen on today's exam.
[2022-01-12 00:06] LABS: ALT 24 U/L (4-34); AST 16 U/L (14-36); African American GFR (CKD) >90 (>60 ml/min/1.73 sqM); Albumin 3.6 g/dL (3.5-5.0); Alkaline Phosphatase 94 U/L (38-126); Amylase 41 U/L (30-110); Anion Gap 4 mmol/L; Blood Urea Nitrogen 11 mg/dL (7-17); Calcium 8.7 mg/dL (8.4-10.2); Carbon Dioxide 26 mmol/L (22-30); Chloride 107 mmol/L (98-107); Glucose 103 mg/dL (74-99); Lipase 112 U/L (23-300); Non-African American GFR(CKD) >90 (>60 ml/min/1.73 sqM); Potassium 3.8 mmol/L (3.5-5.1); Sodium 137 mmol/L (137-145); Total Bilirubin <0.1 mg/dL (0.2-1.3); Total Protein 5.9 g/dL (6.3-8.2)
[2022-01-12 00:07] LABS: MCV 88.5 fL (80.0-100.0)
[2022-01-12] MEDS ORDERED: MORPHINE SULFATE 4 MG/ML SYRINGE IVP STA (00:32)
[2022-01-12] MEDS ORDERED: PROCHLORPERAZINE INJ 10 MG/2 ML VIAL IVP STA (00:32)
[2022-01-12 02:21] VITALS: BP 124/89; PULSE 78; RESP 16; TEMP 98.2
== END 2022-01-12 02:20 | disposition home or self-care (01) ==
LOC: EC 22:16
DX: G89.18 Other acute postprocedural pain (principal); R10.9 Unspecified abdominal pain; K21.9 Gastro-esophageal reflux disease without esophagitis; Z88.6 Allergy status to analgesic agent; Z90.49 Acquired absence of other specified parts of digestive tract; Z79.899 Other long term (current) drug therapy
CPT/HCPCS: 36415; 80053; 82150; 83605; 83690; 85025; 74176; 99284; 96374; 96375; 96361; J2270; J0780

== ENCOUNTER 2022-01-12 18:07 | Emergency (ER) | payer OTHER ==
[2022-01-12 18:28] VITALS: BP 132/87; PULSE 95; RESP 16; TEMP 98.5
[2022-01-12] MEDS ORDERED: HYDROmorphone 1 MG/ML 1 ML SYRINGE IM STA (18:34)
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
== END 2022-01-12 19:10 | disposition home or self-care (01) ==
LOC: EC 18:07
DX: G89.18 Other acute postprocedural pain (principal); R10.9 Unspecified abdominal pain; K21.9 Gastro-esophageal reflux disease without esophagitis; Z79.83 Long term (current) use of bisphosphonates; Z88.6 Allergy status to analgesic agent
CPT/HCPCS: 99284; 96372; J1170

== ENCOUNTER 2022-01-24 21:44 | Emergency (ER) | payer OTHER ==
[2022-01-24 22:13] VITALS: BP 137/88; PULSE 119; RESP 22; TEMP 97.8
== END 2022-01-24 22:42 | disposition left against medical advice (07) ==
LOC: EC 21:44
DX: Z53.21 Procedure and treatment not carried out due to patient leaving prior to being seen by health care provider (principal)
CPT/HCPCS: 93005; 99499

== ENCOUNTER 2022-02-07 16:19 | Emergency (ER) | payer OTHER ==
[2022-02-07] MEDS ORDERED: diphenhydrAMINE 50 MG/ML 1 ML VIAL IM STA (17:47)
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
[2022-02-07] MEDS ORDERED: ACETAMINOPHEN TAB 500 MG TAB PO STA (17:57)
[2022-02-07] MEDS ORDERED: MORPHINE SULFATE 4 MG/ML SYRINGE IM STA (18:39)
[2022-02-07 19:11] LABS: Appearance,Urine Cloudy (Clear); Bacteria,Urine Moderate /hpf; Bilirubin,Urine Negative (Negative); Blood,Urine Negative (Negative); Color,Urine Yellow; Glucose,Urine (UA) Negative (Negative); Ketones,Urine Negative (Negative); Leukocyte Esterase,Urine Negative (Negative); Mucus,Urine Rare /hpf; Nitrite,Urine Negative (Negative); PH, Urine 6.5 (5.0-8.0); Protein,Urine Negative (Negative); RBC,Urine 2 /hpf (0-5); Squamous Epithelial Cell,Urine 9 /hpf (0-4); Urobilinogen,Urine <2.0 mg/dL (<2.0); WBC,Urine 7 /hpf (0-5)
[2022-02-07 20:53] LABS: African American GFR (CKD) >90 (>60 ml/min/1.73 sqM); Anion Gap 5 mmol/L; Blood Urea Nitrogen 14 mg/dL (7-17); Calcium 9.3 mg/dL (8.4-10.2); Carbon Dioxide 23 mmol/L (22-30); Chloride 109 mmol/L (98-107); Glucose 94 mg/dL (74-99); Non-African American GFR(CKD) >90 (>60 ml/min/1.73 sqM); Potassium 4.3 mmol/L (3.5-5.1); Sodium 137 mmol/L (137-145)
[2022-02-07 20:55] VITALS: BP 137/93; PULSE 94; RESP 18; TEMP 98.3
== END 2022-02-07 21:05 | disposition home or self-care (01) ==
LOC: EC 16:19
DX: R51.9 Headache, unspecified (principal); Z20.822 Contact with and (suspected) exposure to COVID-19; K21.9 Gastro-esophageal reflux disease without esophagitis; G40.909 Epilepsy, unspecified, not intractable, without status epilepticus; F41.9 Anxiety disorder, unspecified; Z79.899 Other long term (current) drug therapy
CPT/HCPCS: 36415; 80048; 81001; 81025; 87502; 87635; 99283; 96372; J2270

== ENCOUNTER 2022-02-11 20:02 | Emergency (ER) | payer OTHER ==
[2022-02-11 20:08] VITALS: RESP 22; TEMP 98.3
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
[2022-02-11] MEDS ORDERED: diazePAM 5 MG TAB PO STA (20:51)
[2022-02-11] MEDS ORDERED: ONDANSETRON 4 MG TAB PO STA (20:51)
[2022-02-11] MEDS ORDERED: HYDROcodone/APAP 5-325MG 1 EACH TAB PO STA (20:51)
[2022-02-11] MEDS ORDERED: diphenhydrAMINE 50 MG CAP PO STA (20:51)
[2022-02-11 21:00] VITALS: BP 116/80; PULSE 100
== END 2022-02-11 21:00 | disposition home or self-care (01) ==
LOC: EC 20:02
DX: G40.419 Other generalized epilepsy and epileptic syndromes, intractable, without status epilepticus (principal); K21.9 Gastro-esophageal reflux disease without esophagitis; F41.9 Anxiety disorder, unspecified; Z88.6 Allergy status to analgesic agent; Z79.899 Other long term (current) drug therapy
CPT/HCPCS: 93005; 99285

== ENCOUNTER 2022-03-10 16:25 | Emergency (ER) | payer OTHER ==
[2022-03-10 16:30] VITALS: RESP 18
[2022-03-10] MEDS ORDERED: SODIUM CHLORIDE 0.9% 1,000 ML IV STA (17:00)
[2022-03-10] MEDS ORDERED: MORPHINE SULFATE 4 MG/ML SYRINGE IVP STA (17:27)
[2022-03-10 17:40] LABS: Appearance,Urine Cloudy (Clear); Bacteria,Urine Occasional /hpf; Bilirubin,Urine Negative (Negative); Blood,Urine Negative (Negative); Color,Urine Yellow; Glucose,Urine (UA) Negative (Negative); Hyaline Casts,Urine 8 /lpf (0-2); Ketones,Urine Negative (Negative); Leukocyte Esterase,Urine Negative (Negative); Mucus,Urine Few /hpf; Nitrite,Urine Negative (Negative); PH, Urine 6.5 (5.0-8.0); Protein,Urine 1+ (Negative); RBC,Urine 2 /hpf (0-5); Specific Gravity,Urine 1.025 (1.001-1.035); Squamous Epithelial Cell,Urine 5 /hpf (0-4); WBC,Urine 5 /hpf (0-5)
[2022-03-10 18:00] LABS: Calcium 9.4 mg/dL (8.4-10.2); Lithium 1.2 mmol/L; Total Bilirubin 0.4 mg/dL (0.2-1.3)
[2022-03-10 18:04] LABS: Albumin 4.2 g/dL (3.5-5.0); Basophils % (A) 1 %; Eosinophils # (A) 0.1 k/uL (0-0.7); Eosinophils % (A) 3 %; HCT 40.3 % (34.0-46.0); HGB 12.3 gm/dL (11.4-16.0); Hypochromasia Moderate; Lymphocytes # (A) 1.4 k/uL (1.0-4.8); Lymphocytes % (A) 26 %; MCH 29.4 pg (25.0-35.0); MCHC 30.5 g/dL (31.0-37.0); Magnesium 1.9 mg/dL (1.6-2.3); Mean Platelet Volume 7.8; Monocytes # (A) 0.3 k/uL (0-1.0); Monocytes % (A) 6 %; Neutrophils # (A) 3.4 k/uL (1.3-7.7); Neutrophils % (A) 64 %; Potassium 4.5 mmol/L (3.5-5.1); RBC 4.18 m/uL (3.80-5.40); RDW 15.4 % (11.5-15.5); Total Protein 6.5 g/dL (6.3-8.2); WBC 5.4 k/uL (3.8-10.6)
[2022-03-10 18:07] LABS: MCV 96.3 fL (80.0-100.0); Platelet Count 121 k/uL (150-450)
[2022-03-10] MEDS ORDERED: LORazepam 1 MG TAB PO STA (19:01)
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
--- NOTE | 2022-03-10 19:23 | XR ---
EXAMINATION TYPE: XR chest 2V DATE OF EXAM: 03/10/2022 COMPARISON: 04/14/2021 HISTORY: Cough TECHNIQUE: FINDINGS: Heart and mediastinum are normal. Lungs are clear. Diaphragm is normal. Bony thorax is inta ct. There is axillary neurostimulator. IMPRESSION: No active cardiomegaly disease. There is clearing of the mild atelectasis compared to old exam
[2022-03-10] MEDS ORDERED: HYDROmorphone 1 MG/ML 1 ML SYRINGE IVP STA (19:38)
[2022-03-10 19:49] VITALS: BP 124/79; PULSE 80; TEMP 97.8
== END 2022-03-10 20:07 | disposition home or self-care (01) ==
LOC: EC 16:25
DX: G40.509 Epileptic seizures related to external causes, not intractable, without status epilepticus (principal); F41.9 Anxiety disorder, unspecified; K21.9 Gastro-esophageal reflux disease without esophagitis; Z88.6 Allergy status to analgesic agent; Z79.83 Long term (current) use of bisphosphonates
CPT/HCPCS: 96361 ×2; 96374 ×2; 96375 ×2; 99285 ×2; 36415; 80053; 80178; 83735; 85025; 81001; 81025; 71046; J2270; J1170; 93005; 99284

== ENCOUNTER 2022-03-24 20:56 | Emergency (ER) | payer OTHER ==
[2022-03-24 21:27] VITALS: TEMP 98.6
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
[2022-03-24 23:49] VITALS: BP 135/88; PULSE 84; RESP 16
[2022-03-25] MEDS ORDERED: IOPAMIDOL CONTRAST (ORAL USE) VIAL PO PRN (00:31)
[2022-03-25] MEDS ORDERED: PANTOPRAZOLE 40 MG/10 ML VIAL IVP STA (00:31)
[2022-03-25] MEDS ORDERED: SODIUM CHLORIDE 0.9% 1,000 ML IV STA (00:31)
[2022-03-25] MEDS ORDERED: HYDROmorphone 1 MG/ML 1 ML SYRINGE IVP STA ×2 (00:31→03:38)
[2022-03-25] MEDS ORDERED: ONDANSETRON 4 MG/2 ML VIAL IVP STA (00:31)
[2022-03-25 01:29] LABS: Basophils % (A) 0 %; Eosinophils # (A) 0.3 k/uL (0-0.7); Eosinophils % (A) 4 %; HCT 37.8 % (34.0-46.0); HGB 11.7 gm/dL (11.4-16.0); Lymphocytes # (A) 1.5 k/uL (1.0-4.8); Lymphocytes % (A) 20 %; MCH 29.6 pg (25.0-35.0); MCV 95.6 fL (80.0-100.0); Mean Platelet Volume 7.2; Monocytes # (A) 0.4 k/uL (0-1.0); Monocytes % (A) 5 %; Neutrophils # (A) 5.3 k/uL (1.3-7.7); Neutrophils % (A) 69 %; RBC 3.96 m/uL (3.80-5.40); RDW 14.1 % (11.5-15.5); WBC 7.7 k/uL (3.8-10.6)
[2022-03-25 01:30] LABS: ALT 53 U/L (4-34); AST 25 U/L (14-36); African American GFR (CKD) >90 (>60 ml/min/1.73 sqM); Albumin 3.8 g/dL (3.5-5.0); Alkaline Phosphatase 113 U/L (38-126); Amylase 33 U/L (30-110); Anion Gap 12 mmol/L; Blood Urea Nitrogen 10 mg/dL (7-17); Calcium 9.1 mg/dL (8.4-10.2); Carbon Dioxide 20 mmol/L (22-30); Chloride 105 mmol/L (98-107); Glucose 94 mg/dL (74-99); Lipase 64 U/L (23-300); Non-African American GFR(CKD) >90 (>60 ml/min/1.73 sqM); Potassium 3.8 mmol/L (3.5-5.1); Sodium 137 mmol/L (137-145); Total Bilirubin 0.3 mg/dL (0.2-1.3); Total Protein 5.9 g/dL (6.3-8.2)
[2022-03-25 01:35] LABS: Platelet Count 262 k/uL (150-450)
--- NOTE | 2022-03-25 02:00 | CT ---
EXAMINATION TYPE: CT abdomen pelvis w con DATE OF EXAM: 03/25/2022 COMPARISON: 01/11/2022 HISTORY: bariatric study. abdominal pain 3 days after gastric sleve sx. CT DLP: 2537.3 mGycm Automated exposure control for dose reduction was used. CONTRAST: Performed with IV Contrast, patient injected with 100ml mL of Isovue 300. Images obtained from the diaphragm to the floor the pelvis with oral and IV contrast. There is some mild atelectasis at the lung bases. No pleural effusion. No pericardial effusion. Heart size is normal. Liver spleen pancreas appear intact. There are clips from cholecystectomy. The stomach is intact. The bile ducts are not dilated. There is no adrenal mass. Kidneys show satisfactory contrast opacification. There is no hydronephrosi s. There is 2 mm calculus anterior left kidney. No retroperitoneal adenopathy. Bladder distends mingo hly. No inguinal hernia. No free fluid in the pelvis. No pelvic mass. There is no mesenteric edema. No ascites or free air. No sign of a bowel obstruction. Appendix not se en. No sign of thickened appendix. There is intestinal contrast material extending to the rectum. Jose Miguel endix not seen. No sign of thickened appendix. The lumbar vertebrae have normal alignment. No compression fracture. Posterior elements are intact. T he bony pelvis is intact. Hip joints are intact. IMPRESSION: No acute abnormality of the abdomen and pelvis. Nonobstructing left renal calculus. There is mild sub segmental atelectasis at the lung bases which is slightly increased compared to old exam.
== END 2022-03-25 04:03 | disposition other institution (70) ==
LOC: EC 20:56
DX: G89.18 Other acute postprocedural pain (principal); R10.9 Unspecified abdominal pain; K21.9 Gastro-esophageal reflux disease without esophagitis; Z79.83 Long term (current) use of bisphosphonates; Z88.8 Allergy status to other drugs, medicaments and biological substances
CPT/HCPCS: 36415; 80053; 82150; 83605; 83690; 85025; 74177; 99284; 96374; 96375; 96376; 96361; J2405; J1170; C9113; Q9967 ×2

== ENCOUNTER 2022-04-10 22:39 | Emergency (ER) | payer OTHER ==
[2022-04-10] MEDS ORDERED: ONDANSETRON 4 MG/2 ML VIAL IVP STA (23:12)
[2022-04-10] MEDS ORDERED: MORPHINE SULFATE 4 MG/ML SYRINGE IV STA (23:12)
[2022-04-10] MEDS ORDERED: IOPAMIDOL CONTRAST (ORAL USE) VIAL PO PRN (23:12)
[2022-04-10] MEDS ORDERED: SODIUM CHLORIDE 0.9% 1,000 ML IV STA (23:12)
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
[2022-04-11] MEDS ORDERED: ONDANSETRON ODT 4 MG TAB PO STA (00:32)
[2022-04-11] MEDS ORDERED: MORPHINE SULFATE 4 MG/ML SYRINGE IM STA (00:32)
[2022-04-11] MEDS ORDERED: ONDANSETRON 4 MG/2 ML VIAL IVP STA (00:52)
[2022-04-11] MEDS ORDERED: MORPHINE SULFATE 4 MG/ML SYRINGE IV STA (00:52)
--- NOTE | 2022-04-11 00:59 | CT ---
EXAMINATION TYPE: CT abdomen pelvis wo con DATE OF EXAM: 04/11/2022 COMPARISON: 03/25/2022 HISTORY: vomiting CT DLP: 1442.2 mGycm Automated exposure control for dose reduction was used. Images obtained from the diaphragm to the floor the pelvis with oral contrast only. Lung bases are clear of infiltrate. No pleural effusion. Heart size is normal. No pericardial effusio n. Liver and spleen are intact. There is apparent previous gastric bariatric surgery. There are clips fr om cholecystectomy. The bile ducts are nondilated. There is no evidence of pancreatic mass. There is no adrenal mass. Kidneys show normal size and contour. There is 3 mm calculus interpolar lef t kidney. No hydronephrosis. Ureters are not dilated. No retroperitoneal adenopathy. The bladder dist ends smoothly. No inguinal hernia. No free fluid in the pelvis. No pelvic mass. There is hysterectomy . There is no mesenteric edema. No ascites or free air. No sign of a bowel obstruction. The lumbar vertebrae have normal spacing and alignment. Posterior elements are intact. No compression fracture. The bony pelvis is intact. IMPRESSION: Gastric bariatric bypass surgery. No acute abnormality in the abdomen and pelvis. Appendix not seen. There is clearing of the mild atelectasis at the lung bases compared to old exam.
--- NOTE | 2022-04-11 01:12 | XR ---
EXAMINATION TYPE: XR chest 1V portable DATE OF EXAM: 04/11/2022 COMPARISON: 03/10/2022 HISTORY: Abdominal pain TECHNIQUE: Single view FINDINGS: Heart and mediastinum are normal. Lungs are clear. Diaphragm is normal. Bony thorax is inta ct. There is left axillary pacemaker. No pleural effusion. IMPRESSION: No active cardiopulmonary disease. Inspiration decreased compared to old exam.
[2022-04-11 01:58] LABS: Basophils % (A) 0 %; Eosinophils # (A) 0.2 k/uL (0-0.7); Eosinophils % (A) 3 %; HCT 43.2 % (34.0-46.0); HGB 13.5 gm/dL (11.4-16.0); Hypochromasia Slight; Lymphocytes # (A) 1.2 k/uL (1.0-4.8); Lymphocytes % (A) 16 %; MCH 30.6 pg (25.0-35.0); MCHC 31.3 g/dL (31.0-37.0); MCV 97.6 fL (80.0-100.0); Mean Platelet Volume 8.1; Monocytes # (A) 0.3 k/uL (0-1.0); Monocytes % (A) 4 %; Neutrophils # (A) 5.6 k/uL (1.3-7.7); Neutrophils % (A) 74 %; Platelet Count 291 k/uL (150-450); RBC 4.42 m/uL (3.80-5.40); RDW 13.3 % (11.5-15.5); WBC 7.5 k/uL (3.8-10.6)
[2022-04-11 02:17] LABS: Appearance,Urine Clear (Clear); Bilirubin,Urine Negative (Negative); Blood,Urine Negative (Negative); Color,Urine Yellow; Glucose,Urine (UA) Negative (Negative); Ketones,Urine Negative (Negative); Leukocyte Esterase,Urine Negative (Negative); Nitrite,Urine Negative (Negative); PH, Urine 7.5 (5.0-8.0); Protein,Urine Trace (Negative); Specific Gravity,Urine 1.019 (1.001-1.035); Urobilinogen,Urine <2.0 mg/dL (<2.0)
[2022-04-11] MEDS ORDERED: ONDANSETRON 4 MG ODT STARTER PACK 2 TAB BTL PO STA (02:55)
[2022-04-11 03:07] VITALS: BP 122/79; PULSE 83; RESP 18; TEMP 98.1
== END 2022-04-11 03:05 | disposition home or self-care (01) ==
LOC: EC 22:39
DX: R11.2 Nausea with vomiting, unspecified (principal); G89.29 Other chronic pain; R10.9 Unspecified abdominal pain; K21.9 Gastro-esophageal reflux disease without esophagitis; Z86.69 Personal history of other diseases of the nervous system and sense organs; Z98.84 Bariatric surgery status; Z79.899 Other long term (current) drug therapy; Z88.6 Allergy status to analgesic agent
CPT/HCPCS: 99284 ×2; 96374 ×2; 96375 ×2; 96361 ×2; 36415; 93005; 85025; 81003; 81025; 71045; 74176; J2270; J2405; Q9967

== ENCOUNTER 2022-04-21 20:12 | Emergency (ER) | payer OTHER ==
[2022-04-21] MEDS ORDERED: HYDROcodone/APAP 7.5-325MG 1 EACH TAB PO ONE (21:06)
[2022-04-21] MEDS ORDERED: ONDANSETRON 4 MG/2 ML VIAL IVP STA (21:06)
[2022-04-21] MEDS ORDERED: ONDANSETRON 4 MG/2 ML VIAL IM STA (21:32)
[2022-04-21 21:52] LABS: Basophils % (A) 0 %; Eosinophils # (A) 0.4 k/uL (0-0.7); Eosinophils % (A) 5 %; HCT 41.9 % (34.0-46.0); Hypochromasia Marked; Lymphocytes # (A) 1.2 k/uL (1.0-4.8); Lymphocytes % (A) 15 %; MCH 30.5 pg (25.0-35.0); MCV 98.4 fL (80.0-100.0); Mean Platelet Volume 7.2; Monocytes # (A) 0.3 k/uL (0-1.0); Monocytes % (A) 4 %; Neutrophils # (A) 5.8 k/uL (1.3-7.7); Neutrophils % (A) 74 %; Platelet Count 245 k/uL (150-450); RBC 4.26 m/uL (3.80-5.40); RDW 13.1 % (11.5-15.5); WBC 7.9 k/uL (3.8-10.6)
[2022-04-21 22:05] LABS: African American GFR (CKD) >90 (>60 ml/min/1.73 sqM); Anion Gap 11 mmol/L; Blood Urea Nitrogen 11 mg/dL (7-17); Calcium 9.3 mg/dL (8.4-10.2); Carbon Dioxide 23 mmol/L (22-30); Chloride 107 mmol/L (98-107); Glucose 95 mg/dL (74-99); Non-African American GFR(CKD) >90 (>60 ml/min/1.73 sqM); Sodium 141 mmol/L (137-145)
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
[2022-04-21 23:22] VITALS: BP 146/80; PULSE 92; RESP 16; TEMP 97.8
== END 2022-04-21 22:45 | disposition home or self-care (01) ==
LOC: EC 20:12
DX: G40.909 Epilepsy, unspecified, not intractable, without status epilepticus (principal); K21.9 Gastro-esophageal reflux disease without esophagitis; Z88.8 Allergy status to other drugs, medicaments and biological substances; Z79.899 Other long term (current) drug therapy
CPT/HCPCS: 99284; 96372; 36415; 80048; 85025; J2405

== ENCOUNTER 2022-05-27 15:11 | Emergency (ER) | payer OTHER ==
[2022-05-27 15:15] VITALS: TEMP 98.6
[2022-05-27] MEDS ORDERED: SODIUM CHLORIDE 0.9% 1,000 ML IV STA (15:41)
[2022-05-27] MEDS ORDERED: HYDROmorphone 0.5 MG/0.5 ML SYRINGE IVP STA (15:42)
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
[2022-05-27 16:03] LABS: Appearance,Urine Clear (Clear); Basophils % (A) 0 %; Bilirubin,Urine Negative (Negative); Blood,Urine Negative (Negative); Color,Urine Light Yellow; Eosinophils # (A) 0.2 k/uL (0-0.7); Eosinophils % (A) 3 %; Glucose,Urine (UA) Negative (Negative); HCT 38.2 % (34.0-46.0); HGB 12.2 gm/dL (11.4-16.0); Hypochromasia Slight; Ketones,Urine Negative (Negative); Leukocyte Esterase,Urine Negative (Negative); Lymphocytes # (A) 1.4 k/uL (1.0-4.8); Lymphocytes % (A) 19 %; MCH 31.1 pg (25.0-35.0); MCV 97.2 fL (80.0-100.0); Mean Platelet Volume 7.6; Monocytes # (A) 0.4 k/uL (0-1.0); Monocytes % (A) 5 %; Neutrophils # (A) 5.4 k/uL (1.3-7.7); Neutrophils % (A) 71 %; Nitrite,Urine Negative (Negative); PH, Urine 6.5 (5.0-8.0); Platelet Count 258 k/uL (150-450); Protein,Urine Negative (Negative); RBC 3.92 m/uL (3.80-5.40); RDW 12.6 % (11.5-15.5); Specific Gravity,Urine 1.017 (1.001-1.035); Urobilinogen,Urine <2.0 mg/dL (<2.0); WBC 7.6 k/uL (3.8-10.6)
[2022-05-27 16:14] LABS: ALT 30 U/L (4-34); AST 26 U/L (14-36); African American GFR (CKD) >90 (>60 ml/min/1.73 sqM); Alkaline Phosphatase 103 U/L (38-126); Anion Gap 9 mmol/L; Blood Urea Nitrogen 11 mg/dL (7-17); Calcium 8.6 mg/dL (8.4-10.2); Carbon Dioxide 22 mmol/L (22-30); Chloride 109 mmol/L (98-107); Creatine Kinase 44 U/L (30-135); Glucose 69 mg/dL (74-99); Magnesium 2.2 mg/dL (1.6-2.3); Non-African American GFR(CKD) >90 (>60 ml/min/1.73 sqM); Potassium 4.2 mmol/L (3.5-5.1); Sodium 140 mmol/L (137-145); Total Bilirubin 0.2 mg/dL (0.2-1.3); Total Protein 6.2 g/dL (6.3-8.2)
[2022-05-27 16:15] LABS: Amphetamine Screen,Urine Not Detected (NotDetected); Barbiturate Screen,Urine Detected (NotDetected); Benzodiazepines Screen,Urine Detected (NotDetected); Cocaine Screen,Urine Not Detected (NotDetected); Methadone Screen, Urine Not Detected (NotDetected); Opiate Screen,Urine Not Detected (NotDetected); Oxycodone Screen, Urine Not Detected (NotDetected); Phencyclidine Screen,Urine Detected (NotDetected); Tricyclic Antidepressant,Urine Detected (NotDetected); Urn Cannabinoid Scrn Not Detected (NotDetected)
[2022-05-27] MEDS ORDERED: HYDROmorphone 1 MG/ML 1 ML SYRINGE IVP STA (16:39)
[2022-05-27 17:20] VITALS: RESP 18
[2022-05-27] MEDS ORDERED: ACETAMINOPHEN TAB 500 MG TAB PO STA (18:57)
[2022-05-27 19:00] VITALS: BP 128/85; PULSE 87
== END 2022-05-27 19:13 | disposition home or self-care (01) ==
LOC: EC 15:11
DX: R56.9 Unspecified convulsions (principal); K21.9 Gastro-esophageal reflux disease without esophagitis; F41.9 Anxiety disorder, unspecified; Z88.6 Allergy status to analgesic agent; Z79.899 Other long term (current) drug therapy
CPT/HCPCS: 36415; 80053; 82550; 83735; 85025; 81003; 80306; 99284; 96374; 96375; 96361; J1170 ×2

== ENCOUNTER 2022-05-30 14:01 | Emergency (ER) | payer OTHER ==
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
[2022-05-30] MEDS ORDERED: MORPHINE SULFATE 4 MG/ML SYRINGE IVP STA (15:55)
[2022-05-30 16:43] LABS: ALT 42 U/L (4-34); AST 43 U/L (14-36); African American GFR (CKD) >90 (>60 ml/min/1.73 sqM); Alkaline Phosphatase 92 U/L (38-126); Anion Gap 6 mmol/L; Blood Urea Nitrogen 14 mg/dL (7-17); Calcium 8.4 mg/dL (8.4-10.2); Carbon Dioxide 23 mmol/L (22-30); Chloride 109 mmol/L (98-107); Creatine Kinase 43 U/L (30-135); Glucose 87 mg/dL (74-99); Magnesium 2.1 mg/dL (1.6-2.3); Non-African American GFR(CKD) >90 (>60 ml/min/1.73 sqM); Sodium 138 mmol/L (137-145); Total Bilirubin 0.5 mg/dL (0.2-1.3); Total Protein 6.4 g/dL (6.3-8.2)
[2022-05-30 16:44] LABS: Basophils % (A) 0 %; Eosinophils # (A) 0.3 k/uL (0-0.7); Eosinophils % (A) 4 %; HCT 38.5 % (34.0-46.0); HGB 12.5 gm/dL (11.4-16.0); Hypochromasia Slight; Lymphocytes # (A) 1.7 k/uL (1.0-4.8); Lymphocytes % (A) 21 %; MCH 31.2 pg (25.0-35.0); MCHC 32.4 g/dL (31.0-37.0); MCV 96.5 fL (80.0-100.0); Mean Platelet Volume 7.9; Monocytes # (A) 0.4 k/uL (0-1.0); Monocytes % (A) 5 %; Neutrophils # (A) 5.4 k/uL (1.3-7.7); Neutrophils % (A) 69 %; Platelet Count 263 k/uL (150-450); RBC 3.99 m/uL (3.80-5.40); RDW 12.9 % (11.5-15.5); WBC 7.9 k/uL (3.8-10.6)
[2022-05-30 16:53] VITALS: RESP 18
[2022-05-30 17:06] LABS: Potassium 4.7 mmol/L (3.5-5.1)
[2022-05-30 17:57] LABS: Appearance,Urine Clear (Clear); Bilirubin,Urine Negative (Negative); Blood,Urine Negative (Negative); Color,Urine Light Yellow; Glucose,Urine (UA) Negative (Negative); Ketones,Urine Negative (Negative); Leukocyte Esterase,Urine Negative (Negative); Nitrite,Urine Negative (Negative); Protein,Urine Negative (Negative); Specific Gravity,Urine 1.018 (1.001-1.035); Urobilinogen,Urine <2.0 mg/dL (<2.0)
[2022-05-30] MEDS ORDERED: oxyCODONE-APAP 10-325MG 1 EACH TAB PO PRN (18:10)
[2022-05-30 18:26] VITALS: BP 119/76; PULSE 85
== END 2022-05-30 18:40 | disposition home or self-care (01) ==
LOC: EC 14:01
DX: G40.909 Epilepsy, unspecified, not intractable, without status epilepticus (principal); K21.9 Gastro-esophageal reflux disease without esophagitis; F41.9 Anxiety disorder, unspecified; Z79.899 Other long term (current) drug therapy; Z79.83 Long term (current) use of bisphosphonates; Z88.6 Allergy status to analgesic agent
CPT/HCPCS: 36415; 80053; 80175; 82550; 80178; 83735; 85025; 81003; 84146; 99284; 96374; J2270

== ENCOUNTER 2022-06-03 20:56 | Emergency (ER) | payer OTHER ==
[2022-06-03 21:22] VITALS: BP 139/90; PULSE 110; RESP 18; TEMP 97.6
[2022-06-03] MEDS ORDERED: SODIUM CHLORIDE 0.9% 1,000 ML IV STA (21:31)
[2022-06-03] MEDS ORDERED: MORPHINE SULFATE 4 MG/ML SYRINGE IV STA (21:31)
[2022-06-03] MEDS ORDERED: ONDANSETRON 4 MG/2 ML VIAL IVP STA (21:31)
[2022-06-03] MEDS ORDERED: IOPAMIDOL CONTRAST (ORAL USE) VIAL PO PRN (21:33)
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
--- NOTE | 2022-06-03 22:20 | XR ---
EXAMINATION TYPE: XR chest 1V portable DATE OF EXAM: 06/03/2022 COMPARISON: 04/11/2022 HISTORY: Pain TECHNIQUE: Single view FINDINGS: Heart and mediastinum are normal. Lungs are clear. Diaphragm is normal. Bony thorax is inta ct IMPRESSION: No cardiopulmonary disease. No change.
[2022-06-03 22:47] LABS: Appearance,Urine Clear (Clear); Bacteria,Urine Occasional /hpf; Bilirubin,Urine Negative (Negative); Blood,Urine Negative (Negative); Color,Urine Yellow; Glucose,Urine (UA) Negative (Negative); Ketones,Urine Negative (Negative); Leukocyte Esterase,Urine Negative (Negative); Mucus,Urine Rare /hpf; Nitrite,Urine Negative (Negative); Protein,Urine 1+ (Negative); RBC,Urine 1 /hpf (0-5); Specific Gravity,Urine 1.035 (1.001-1.035); Squamous Epithelial Cell,Urine 1 /hpf (0-4); Urobilinogen,Urine <2.0 mg/dL (<2.0); WBC,Urine 2 /hpf (0-5)
[2022-06-03 23:32] LABS: Basophils % (A) 0 %; Eosinophils # (A) 0.3 k/uL (0-0.7); Eosinophils % (A) 4 %; HCT 36.1 % (34.0-46.0); HGB 11.9 gm/dL (11.4-16.0); Lymphocytes # (A) 1.3 k/uL (1.0-4.8); Lymphocytes % (A) 19 %; MCH 31.5 pg (25.0-35.0); MCHC 32.9 g/dL (31.0-37.0); MCV 95.8 fL (80.0-100.0); Mean Platelet Volume 7.7; Monocytes # (A) 0.4 k/uL (0-1.0); Monocytes % (A) 6 %; Neutrophils # (A) 4.8 k/uL (1.3-7.7); Neutrophils % (A) 69 %; Platelet Count 239 k/uL (150-450); RBC 3.77 m/uL (3.80-5.40); RDW 12.8 % (11.5-15.5)
[2022-06-03 23:40] LABS: ALT 36 U/L (4-34); AST 25 U/L (14-36); African American GFR (CKD) >90 (>60 ml/min/1.73 sqM); Albumin 3.7 g/dL (3.5-5.0); Alkaline Phosphatase 124 U/L (38-126); Anion Gap 5 mmol/L; Blood Urea Nitrogen 13 mg/dL (7-17); Calcium 8.3 mg/dL (8.4-10.2); Carbon Dioxide 25 mmol/L (22-30); Chloride 109 mmol/L (98-107); Glucose 98 mg/dL (74-99); Lipase 102 U/L (23-300); Non-African American GFR(CKD) >90 (>60 ml/min/1.73 sqM); Potassium 4.3 mmol/L (3.5-5.1); Sodium 139 mmol/L (137-145); Total Bilirubin 0.1 mg/dL (0.2-1.3); Total Protein 5.7 g/dL (6.3-8.2)
[2022-06-04] MEDS ORDERED: MORPHINE SULFATE 4 MG/ML SYRINGE IV STA (00:09)
--- NOTE | 2022-06-04 00:25 | CT ---
EXAMINATION TYPE: CT abdomen pelvis wo/w con DATE OF EXAM: 06/04/2022 COMPARISON: 04/10/2022 HISTORY: Lower/mid abdomen pain x 4 hours, nausea. CT DLP: 4103 mGycm Automated exposure control for dose reduction was used. CONTRAST: Performed with IV Contrast, patient injected with 100ml mL of Isovue 300. Images obtained from the diaphragm to the floor the pelvis without and with the oral and IV contrast. Lung bases are clear of consolidation nor pleural effusion. Heart size is normal. No pericardial effu arlin. No evidence of obstructing renal calculus. There is a 3 mm calculus anterior left kidney. Liver spleen and stomach pancreas appear intact. The bile ducts are not dilated. There are clips from cholecystectomy. There is no adrenal mass. Kidneys show satisfactory contrast opacification. There i s no hydronephrosis. Ureters are not dilated. No retroperitoneal adenopathy. The bladder distends smo othly. No inguinal hernia. No free fluid in the pelvis. No pelvic mass. There is no mesenteric edema. There is no ascites or free air. There is no sign of a bowel obstructio n. The lumbar vertebrae have normal alignment. No compression fracture. The bony pelvis is intact. The h ip joints are intact. No evidence of mesenteric edema. No ascites or free air. No sign of a bowel obs truction. Appendix not seen. Delayed images show normal renal excretion. There are clips from gastric bariatric surgery. IMPRESSION: Nonobstructing left renal calculus. No acute abnormality in the abdomen pelvis. No adverse change com pared to old exam.
[2022-06-04] MEDS ORDERED: oxyCODONE-APAP 10-325MG 1 EACH TAB PO STA (01:53)
== END 2022-06-04 02:10 | disposition home or self-care (01) ==
LOC: EC 20:56
DX: N20.0 Calculus of kidney (principal); K21.9 Gastro-esophageal reflux disease without esophagitis; F41.9 Anxiety disorder, unspecified; Z88.6 Allergy status to analgesic agent; Z90.49 Acquired absence of other specified parts of digestive tract; Z79.83 Long term (current) use of bisphosphonates; Z79.899 Other long term (current) drug therapy
CPT/HCPCS: 36415; 80053; 83605; 83690; 85025; 81001; 81025; 71045; 74178; 99284; 96374; 96375; 96376; 96361 ×2; J2270 ×2; J2405; Q9967 ×2

== ENCOUNTER 2022-07-12 15:03 | Observation (INO) | payer OTHER ==
[2022-07-12 15:22] VITALS: TEMP 97.4
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
[2022-07-12 16:51] LABS: Basophils % (A) 0 %; Eosinophils # (A) 0.3 k/uL (0-0.7); Eosinophils % (A) 6 %; HCT 37.5 % (34.0-46.0); HGB 12.3 gm/dL (11.4-16.0); Lymphocytes # (A) 1.3 k/uL (1.0-4.8); Lymphocytes % (A) 22 %; MCH 30.9 pg (25.0-35.0); MCHC 32.7 g/dL (31.0-37.0); MCV 94.6 fL (80.0-100.0); Mean Platelet Volume 7.1; Monocytes # (A) 0.3 k/uL (0-1.0); Monocytes % (A) 5 %; Neutrophils # (A) 3.8 k/uL (1.3-7.7); Neutrophils % (A) 65 %; Platelet Count 244 k/uL (150-450); RBC 3.97 m/uL (3.80-5.40); RDW 13.2 % (11.5-15.5); WBC 5.9 k/uL (3.8-10.6)
[2022-07-12 17:10] LABS: ALT 43 U/L (4-34); AST 37 U/L (14-36); African American GFR (CKD) >90 (>60 ml/min/1.73 sqM); Albumin 3.7 g/dL (3.5-5.0); Alkaline Phosphatase 105 U/L (38-126); Anion Gap 3 mmol/L; Blood Urea Nitrogen 9 mg/dL (7-17); Calcium 8.1 mg/dL (8.4-10.2); Carbon Dioxide 25 mmol/L (22-30); Chloride 111 mmol/L (98-107); Creatine Kinase 71 U/L (30-135); Glucose 88 mg/dL (74-99); Non-African American GFR(CKD) >90 (>60 ml/min/1.73 sqM); Potassium 4.5 mmol/L (3.5-5.1); Sodium 139 mmol/L (137-145); Total Bilirubin 0.4 mg/dL (0.2-1.3)
[2022-07-12] MEDS ORDERED: MORPHINE SULFATE 4 MG/ML SYRINGE IVP STA (17:28)
[2022-07-12] MEDS ORDERED: ACETAMINOPHEN TAB 325 MG TAB PO PRN (18:07)
[2022-07-12] MEDS ORDERED: NALOXONE 0.4 MG/ML 1 ML VIAL IV PRN (18:07)
[2022-07-12] MEDS ORDERED: LORazepam 2 MG/ML INJ IV STA (18:08)
--- NOTE | 2022-07-12 18:08 | ED ---
Medical Decision Making - Medical Decision Making I told patient she is being discharged. Cold minutes later received report from nurse that patient was having active seizure. I did arrive at the bedside at approximately 5:55 PM. Patient was having the cerebral posturing however we are able to flex her arms at the shoulder and states still. Patient did not have any nystagmus or eye twitching. She was resisting me when I was trying to open up her eyelids. Has a high risk of revisit to the emergency room. She will be admitted with consultation to neurology. Case discussed with Dr. Carlton Johnson was went except patient's care for further care. Patient 4 mg of IV Ativan with improvement of posturing. - Lab Data Result diagrams: 07/12/22 16:39 07/12/22 16:39 Lab Results 07/12/22 07/12/22 07/12/22 Range/Units 16:39 16:39 16:39 WBC 5.9 (3.8-10.6) k/uL RBC 3.97 (3.80-5.40) m/uL Hgb 12.3 (11.4-16.0) gm/dL Hct 37.5 (34.0-46.0) % MCV 94.6 (80.0-100.0) fL MCH 30.9 (25.0-35.0) pg MCHC 32.7 (31.0-37.0) g/dL RDW 13.2 (11.5-15.5) % Plt Count 244 (150-450) k/uL MPV 7.1 Neutrophils % 65 % Lymphocytes % 22 % Monocytes % 5 % Eosinophils % 6 % Basophils % 0 % Neutrophils # 3.8 (1.3-7.7) k/uL Lymphocytes # 1.3 (1.0-4.8) k/uL Monocytes # 0.3 (0-1.0) k/uL Eosinophils # 0.3 (0-0.7) k/uL Basophils # 0.0 (0-0.2) k/uL Sodium 139 (137-145) mmol/L Potassium 4.5 (3.5-5.1) mmol/L Chloride 111 H (98-107) mmol/L Carbon Dioxide 25 (22-30) mmol/L Anion Gap 3 mmol/L BUN 9 (7-17) mg/dL Creatinine 0.63 (0.52-1.04) mg/dL Est GFR (CKD-EPI)AfAm >90 (>60 ml/min/1.73 sqM) Est GFR (CKD-EPI)NonAf >90 (>60 ml/min/1.73 sqM) Glucose 88 (74-99) mg/dL Plasma Lactic Acid Roney 1.0 (0.7-2.0) mmol/L Calcium 8.1 L (8.4-10.2) mg/dL Total Bilirubin 0.4 (0.2-1.3) mg/dL AST 37 H (14-36) U/L ALT 43 H (4-34) U/L Alkaline Phosphatase 105 (38-126) U/L Creatine Kinase 71 (30-135) U/L Total Protein 6.0 L (6.3-8.2) g/dL Albumin 3.7 (3.5-5.0) g/dL Disposition Clinical Impression: Pseudoseizure Disposition[facility] Condition: Fair Referrals: Carlton Johnson MD [Primary Care Provider] - 1-2 days Decision Time: 18:07
[2022-07-12] MEDS: SODIUM CHLORIDE 0.9% 1,000 ML IV SCH (20:27)
[2022-07-12] MEDS ORDERED: hydrOXYzine pamoate 25 MG CAP PO PRN (21:50)
[2022-07-12] MEDS ORDERED: QUEtiapine 400 MG TAB PO SCH (22:00)
[2022-07-12] MEDS ORDERED: DOXAZOSIN 2 MG TAB PO SCH (22:00)
[2022-07-12] MEDS: busPIRone HCl 5 MG TAB PO SCH (23:24)
[2022-07-12] MEDS: LITHIUM CARBONATE 300 MG CAP PO SCH (23:24)
[2022-07-12] MEDS: lamoTRIgine 100 MG TAB PO SCH (23:25)
[2022-07-13] MEDS: NON FORMULARY DRUG (Brivaracetam [Briviact] 100 MG Tablet) PO SCH ×2 (01:15→09:28)
[2022-07-13] MEDS: SODIUM CHLORIDE 0.9% 1,000 ML IV SCH ×2 (02:46→10:00)
[2022-07-13 04:19] VITALS: RESP 18
[2022-07-13 06:50] VITALS: BP 113/83; PULSE 73
[2022-07-13] MEDS ORDERED: PANTOPRAZOLE 40 MG TABLET PO SCH (07:30)
[2022-07-13] MEDS ORDERED: NON FORMULARY DRUG (Clobazam [Clobazam] 20 MG Tablet) PO SCH (09:00)
[2022-07-13] MEDS: LITHIUM CARBONATE 300 MG CAP PO SCH (09:54)
[2022-07-13] MEDS: lamoTRIgine 100 MG TAB PO SCH (09:55)
[2022-07-13] MEDS: busPIRone HCl 5 MG TAB PO SCH (09:55)
== END 2022-07-13 10:43 | disposition left against medical advice (07) ==
LOC: EC 15:03 → 3SCARD 18:08
PROVIDERS: ADMIT Family Medicine; ATTEND Family Medicine
DX: G40.909 Epilepsy, unspecified, not intractable, without status epilepticus (principal); Z53.29 Procedure and treatment not carried out because of patient's decision for other reasons; G47.00 Insomnia, unspecified; N80.9 Endometriosis, unspecified; K59.00 Constipation, unspecified; R19.7 Diarrhea, unspecified; K21.9 Gastro-esophageal reflux disease without esophagitis; F41.9 Anxiety disorder, unspecified; Z79.899 Other long term (current) drug therapy; Z88.5 Allergy status to narcotic agent; Z96.82 Presence of neurostimulator; Z90.49 Acquired absence of other specified parts of digestive tract; Z98.84 Bariatric surgery status; Z87.09 Personal history of other diseases of the respiratory system; Z87.19 Personal history of other diseases of the digestive system; Z86.2 Personal history of diseases of the blood and blood-forming organs and certain disorders involving the immune mechanism; Z90.711 Acquired absence of uterus with remaining cervical stump; Z90.721 Acquired absence of ovaries, unilateral; Z86.018 Personal history of other benign neoplasm; Z90.79 Acquired absence of other genital organ(s); Z87.828 Personal history of other (healed) physical injury and trauma; Z98.890 Other specified postprocedural states; Z82.49 Family history of ischemic heart disease and other diseases of the circulatory system; Z80.49 Family history of malignant neoplasm of other genital organs; Z80.0 Family history of malignant neoplasm of digestive organs; Z84.1 Family history of disorders of kidney and ureter; Z83.49 Family history of other endocrine, nutritional and metabolic diseases
CPT/HCPCS: 96374; 96375; 99285; 36415; 93005; 80053; 82550; 83605; 85025; G0378 ×2; J2060; J2270

== ENCOUNTER 2022-07-24 16:02 | Emergency (ER) | payer OTHER ==
[2022-07-24 16:14] VITALS: BP 143/100; PULSE 100; RESP 18; TEMP 98.5
[2022-07-24 16:51] LABS: ALT 70 U/L (4-34); AST 67 U/L (14-36); African American GFR (CKD) >90 (>60 ml/min/1.73 sqM); Albumin 4.1 g/dL (3.5-5.0); Alkaline Phosphatase 188 U/L (38-126); Anion Gap 7 mmol/L; Blood Urea Nitrogen 10 mg/dL (7-17); Calcium 8.8 mg/dL (8.4-10.2); Carbon Dioxide 23 mmol/L (22-30); Chloride 111 mmol/L (98-107); Glucose 95 mg/dL (74-99); Magnesium 2.3 mg/dL (1.6-2.3); Non-African American GFR(CKD) >90 (>60 ml/min/1.73 sqM); Potassium 4.1 mmol/L (3.5-5.1); Sodium 141 mmol/L (137-145); Total Bilirubin 0.4 mg/dL (0.2-1.3); Total Protein 6.7 g/dL (6.3-8.2)
[2022-07-24 17:03] LABS: Basophils # (A) 0.1 k/uL (0-0.2); Basophils % (A) 1 %; Eosinophils # (A) 0.1 k/uL (0-0.7); Eosinophils % (A) 2 %; HCT 42.7 % (34.0-46.0); HGB 14.1 gm/dL (11.4-16.0); Lymphocytes # (A) 2.6 k/uL (1.0-4.8); Lymphocytes % (A) 44 %; MCH 30.3 pg (25.0-35.0); Mean Platelet Volume 7.5; Monocytes # (A) 0.3 k/uL (0-1.0); Monocytes % (A) 5 %; Neutrophils # (A) 2.6 k/uL (1.3-7.7); Platelet Count 270 k/uL (150-450); RBC 4.65 m/uL (3.80-5.40)
[2022-07-24] MEDS ORDERED: ACETAMINOPHEN TAB 500 MG TAB PO STA (17:14)
[2022-07-24 17:21] LABS: Band Neutrophils % 1 %; Neutrophils % (M) 35 %; Nucleated Red Blood Cells 0 /100 WBC (0-0); Poikilocytosis (M) Present; Total Cells Counted 100
[2022-07-24] MEDS ORDERED: SODIUM CHLORIDE 0.9% 1,000 ML IV STA (17:30)
[2022-07-24] MEDS ORDERED: CYCLOBENZAPRINE 5 MG TAB PO STA (18:24)
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
== END 2022-07-24 19:19 | disposition left against medical advice (07) ==
LOC: EC 16:02
DX: R56.9 Unspecified convulsions (principal); Z76.5 Malingerer [conscious simulation]; K21.9 Gastro-esophageal reflux disease without esophagitis; F41.9 Anxiety disorder, unspecified; Z79.899 Other long term (current) drug therapy; Z88.6 Allergy status to analgesic agent; Z53.29 Procedure and treatment not carried out because of patient's decision for other reasons
CPT/HCPCS: 36415; 80053; 80175; 80178; 83605; 83735; 85025; 93005; 99284

== ENCOUNTER → 2022-08-02 | Outpatient (CLI) | payer OTHER ==
[2022-08-02 15:00] LABS: Basophils # (A) 0.03 X 10*3/uL (0.00-0.10); Basophils % (A) 0.6 %; Eosinophils # (A) 0.19 X 10*3/uL (0.04-0.35); Eosinophils % (A) 3.6 %; HCT 39.5 % (37.2-46.3); HGB 12.3 g/dL (12.0-15.0); Immature Grans, Automated 0.4 %; Lymphocytes # (A) 2.11 X 10*3/uL (0.90-5.00); Lymphocytes % (A) 39.4 %; MCH 30.1 pg (27.0-32.0); MCHC 31.1 g/dL (32.0-37.0); MCV 96.8 fL (80.0-97.0); Mean Platelet Volume 9.4 fL (9.5-12.2); Monocytes # (A) 0.48 X 10*3/uL (0.20-1.00); NRBC Per 100 WBC 0 /100 WBCS (0.0-0.0); Neutrophils # (A) 2.52 X 10*3/uL (1.80-7.70); Platelet Count 257 X 10*3/uL (140-440); RBC 4.08 X 10*6/uL (4.10-5.20); RDW 13.8 % (11.5-14.5); WBC 5.35 X 10*3/uL (4.50-10.00)
[2022-08-02 16:26] LABS: % Iron Saturation 41.98 (12.00-45.00)
== END | disposition home or self-care (01) ==
LOC: LABWHC1 10:21
PROVIDERS: ATTEND Psychiatry & Neurology Neurology
DX: D64.9 Anemia, unspecified (principal)
CPT/HCPCS: 36415; 82728; 83540; 83550; 85025

== ENCOUNTER 2022-09-17 19:17 | Observation (INO) | payer OTHER ==
[2022-09-17] MEDS ORDERED: LORazepam 2 MG/ML INJ IV STA (20:19)
[2022-09-17] MEDS ORDERED: SODIUM CHLORIDE 0.9% 1,000 ML IV STA (20:19)
[2022-09-17] MEDS ORDERED: ACETAMINOPHEN TAB 500 MG TAB PO STA (20:20)
[2022-09-17 20:53] LABS: Basophils % (A) 1 %; Eosinophils # (A) 0.2 k/uL (0-0.7); Eosinophils % (A) 4 %; HCT 39.9 % (34.0-46.0); HGB 12.6 gm/dL (11.4-16.0); Lymphocytes # (A) 1.3 k/uL (1.0-4.8); Lymphocytes % (A) 27 %; MCH 31.2 pg (25.0-35.0); MCHC 31.7 g/dL (31.0-37.0); MCV 98.7 fL (80.0-100.0); Mean Platelet Volume 7.2; Monocytes # (A) 0.2 k/uL (0-1.0); Monocytes % (A) 5 %; Neutrophils # (A) 3.1 k/uL (1.3-7.7); Neutrophils % (A) 62 %; Platelet Count 258 k/uL (150-450); RBC 4.05 m/uL (3.80-5.40); RDW 13.4 % (11.5-15.5)
[2022-09-17 20:59] LABS: ALT 58 U/L (4-34); AST 41 U/L (14-36); African American GFR (CKD) >90 (>60 ml/min/1.73 sqM); Albumin 3.9 g/dL (3.5-5.0); Alkaline Phosphatase 138 U/L (38-126); Anion Gap 6 mmol/L; Blood Urea Nitrogen 10 mg/dL (7-17); Calcium 8.5 mg/dL (8.4-10.2); Carbon Dioxide 22 mmol/L (22-30); Chloride 109 mmol/L (98-107); Glucose 113 mg/dL (74-99); Magnesium 2.1 mg/dL (1.6-2.3); Non-African American GFR(CKD) >90 (>60 ml/min/1.73 sqM); Phosphorus 3.2 mg/dL (2.5-4.5); Sodium 137 mmol/L (137-145); Total Bilirubin 0.2 mg/dL (0.2-1.3); Total Protein 6.2 g/dL (6.3-8.2)
[2022-09-17] MEDS ORDERED: ACETAMINOPHEN TAB 325 MG TAB PO PRN (21:36)
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
[2022-09-17] MEDS ORDERED: LORATADINE 10 MG TAB PO PRN (22:42)
[2022-09-17] MEDS ORDERED: polyethylene glycoL 3350 17 GM POWD.PACK PO PRN (22:42)
[2022-09-17] MEDS ORDERED: ONDANSETRON 4 MG TAB PO PRN (22:42)
[2022-09-17] MEDS: lamoTRIgine 100 MG TAB PO SCH (22:57)
[2022-09-17] MEDS: busPIRone HCl 5 MG TAB PO SCH (22:57)
[2022-09-17] MEDS: LITHIUM CARBONATE 300 MG CAP PO SCH (22:57)
[2022-09-17] MEDS: QUEtiapine 400 MG TAB PO SCH (23:22)
[2022-09-17] MEDS: DOXAZOSIN 2 MG TAB PO SCH (23:22)
[2022-09-18] MEDS: LORazepam 2 MG/ML INJ IV PRN ×2 (04:24→10:33)
[2022-09-18] MEDS: HYDROcodone/APAP 7.5-325MG 1 EACH TAB PO PRN ×3 (04:33→22:28)
[2022-09-18 04:42] LABS: Glucose,Whole Blood 98 mg/dL (70-110)
[2022-09-18] MEDS: METOCLOPRAMIDE 5 MG TAB PO SCH ×3 (06:13→17:55)
[2022-09-18] MEDS: PANTOPRAZOLE 40 MG TABLET PO SCH (06:13)
[2022-09-18] MEDS: lamoTRIgine 100 MG TAB PO SCH ×2 (08:53→20:31)
[2022-09-18] MEDS: diazePAM 5 MG TAB PO SCH ×2 (08:53→20:31)
[2022-09-18] MEDS: busPIRone HCl 5 MG TAB PO SCH ×3 (08:53→20:31)
[2022-09-18] MEDS: LITHIUM CARBONATE 300 MG CAP PO SCH ×2 (08:53→20:31)
[2022-09-18] MEDS: ENOXAPARIN 40 MG/0.4 ML SYRINGE SQ SCH (08:53)
[2022-09-18] MEDS ORDERED: MORPHINE SULFATE 2 MG/ML SYRINGE IVP STA (09:06)
[2022-09-18] MEDS: BUTALB/APAP/CAFF 50-325-40MG TAB PO PRN (10:47)
[2022-09-18] MEDS ORDERED: levETIRAcetam IV 1,000 MG in SALINE 1 100ML.BAG IVPB STA (13:43)
[2022-09-18] MEDS ORDERED: LORazepam 2 MG/ML INJ IV PRN (13:47)
[2022-09-18] MEDS ORDERED: LORazepam 2 MG/ML INJ IV STA (13:48)
[2022-09-18] MEDS: MAGNESIUM OXIDE 400 MG TAB PO SCH ×2 (15:22→20:31)
[2022-09-18] MEDS: DOXAZOSIN 2 MG TAB PO SCH (20:31)
[2022-09-18] MEDS: methocarbamoL 500 MG TAB PO SCH (20:31)
[2022-09-18] MEDS: QUEtiapine 400 MG TAB PO SCH (20:31)
[2022-09-18] MEDS ORDERED: QUEtiapine 400 MG TAB PO SCH (21:00)
[2022-09-19] MEDS: PANTOPRAZOLE 40 MG TABLET PO SCH (06:34)
[2022-09-19] MEDS: METOCLOPRAMIDE 5 MG TAB PO SCH ×3 (06:34→18:19)
[2022-09-19] MEDS: HYDROcodone/APAP 7.5-325MG 1 EACH TAB PO PRN ×2 (06:37→16:13)
[2022-09-19] MEDS: LORazepam 2 MG/ML INJ IV PRN ×2 (07:18→12:22)
[2022-09-19] MEDS: busPIRone HCl 5 MG TAB PO SCH ×3 (07:51→21:16)
[2022-09-19] MEDS: lamoTRIgine 100 MG TAB PO SCH ×2 (07:52→21:14)
[2022-09-19] MEDS: ENOXAPARIN 40 MG/0.4 ML SYRINGE SQ SCH (07:52)
[2022-09-19] MEDS: MAGNESIUM OXIDE 400 MG TAB PO SCH ×3 (07:52→21:16)
[2022-09-19] MEDS: LITHIUM CARBONATE 300 MG CAP PO SCH ×2 (07:52→21:15)
[2022-09-19] MEDS: diazePAM 5 MG TAB PO SCH ×2 (08:02→21:14)
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
[2022-09-19] MEDS ORDERED: ESTRADIOL TRANSDERM SCH (09:00)
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
[2022-09-19] MEDS: BACLOFEN 10 MG TAB PO PRN (11:15)
--- NOTE | 2022-09-19 16:57 | P.PN ---
Subjective Progress Note Date: 09/19/22 H&P Date: 09/18/22 Chief Complaint: seizures Caroline Newton is a 32 yo F with PMH of seizure disorder, VNS in place, pseudoseizures, bipolar disorder who presented to the ED with increasing seizures over the past few weeks. She complains she has been having multiple seizures a day which she describes as 2-4 minutes of becoming stiff and nonresponsive although she remains alert and able to hear and see fully. She complains of significant generalized myalgias and malaise after her seizures. She states her VNS has been constantly going off and she complains of buzzzing and L sided ear pressure from this. She has been regularly following with neurology and most recently saw them about 3 weeks ago. At that time her breviact was stopped and she also had seroquel stopped earlier last month. She has had multiple recent imaging scans and was transferred to [facility] for continous EEG about 6 weeks ago after breakthrough seizures at that time, this is when she was started on breviact. On presentation vitals stable, labs remarkable for mildly elevated LFTs. 09/19/22 seizure precautions maintained. 2 seizures reported last night and one this morning. Patient did receive Seroquel last night, has since been discontinued. Complains of body stiffness, achiness especially in her back and upper neck, worsened after seizures. Discussed using muscle relaxants, not opioids. Evaluated by neurology last night with recommendations noted and appreciated. Denies any chest pain, palpitations or shortness of breath. Objective - Vital Signs Vital signs: Vital Signs Temp 97.8 F 09/19/22 15:00 Pulse 92 09/19/22 15:00 Resp 18 09/19/22 15:00 BP 140/94 09/19/22 15:00 Pulse Ox 97 09/19/22 15:00 FiO2 Intake & Output 09/18/22 09/19/22 09/19/22 18:59 06:59 18:59 Intake Total 362 1540 118 Balance 362 1540 118 Intake: Intake, IV Titration 1000 Amount Sodium Chloride 0.9% 1, 1000 000 ml @ 100 mls/hr IV . Q10H STA Rx#:[id number] Oral 362 540 118 Other: Voiding Method Toilet Toilet Toilet # Voids 2 3 - Exam Gen: morbidly obese, sitting up in bed, NAD HEENT: NC/AT, mmm. TMs normal Neck: supple, no JVD CV: RRR, no murmur Lungs: Normal effort, clear throughout Abd: soft, nontender, non distended. BS+ Neuro: AAOx3, no focal deficits Skin: warm and dry - Labs CBC & Chem 7: 09/17/22 20:29 09/17/22 20:29 Assessment and Plan Assessment: Epilepsy with status vs pseudoseizure. Breakthrough seizures as per neurology secondary to patient's stopping Briviact. 2. Bipolar disorder 3. RLS 4. Morbid obesity, BMI 46.9 5. GERD Plan: Continue current medication regime ,monitoring and symptomatic treatment. Baclofen added to med regimen for body discomfort post seizures. Maintain seizure precautions.Following closely with neurology, continues on Keppra, Lamictal. Discharge planning in progress pending final DC recommendations and clearance per neurology. The impression and plan of care has been dictated as directed. : I performed a history and examination of this patient, discussed the same with the dictator. I agree with the dictator's note ,documented as a scribe. Any additional findings or plans will be noted.
[2022-09-19] MEDS ORDERED: MORPHINE SULFATE 2 MG/ML SYRINGE IVP STA (19:17)
[2022-09-19] MEDS: DOXAZOSIN 2 MG TAB PO SCH (21:14)
[2022-09-19] MEDS: levETIRAcetam IV 1,500 MG in SALINE 1 100ML.BAG IVPB SCH (21:15)
[2022-09-19] MEDS: methocarbamoL 500 MG TAB PO SCH (21:15)
[2022-09-19] MEDS: lamoTRIgine 25 MG TAB PO SCH (21:15)
--- NOTE | 2022-09-19 21:18 | P.PN ---
Subjective Progress Note Date: 09/19/22 Patient was seen for a follow-up. Nurse reported at 12:40 PM that the patient had a seizure, which was going on for 20 minutes. Patient was given 1 mg of Ativan when it started. She was stiff when this started but then she was relaxed after Ativan. She was not opening her eyes or responding to her name. By 1:08 PM, patient was awake and responding normally. Patient had a few more seizures. A stat prolonged EEG was recommended. According to preliminary report from Dr. Callahan, was normal. Patient had 1 typical seizure in which she tensed up, was staring, not responding, with some trembling of the left shoulder. No epileptiform activity was seen during this ictal event, or rest of the study. Suspected nonepileptic seizures. Patient states that she can hear what's going on around, could hear the nurses but could not move. Patient states that 90% of the time with her seizures, she can hear what is going on around her. She believes she had 4 seizures today. She states that she cannot control the seizures. She states this she tried 3 times, her whole-body hurts. She is asking for pain medication. And she believes that either morphine or Dilaudid works. The patient became emotional stating that she has no periods due to her endometriosis and she is on estrogen patch. Objective - Vital Signs Vital signs: Vital Signs Temp 97.8 F 09/19/22 15:00 Pulse 92 09/19/22 15:00 Resp 18 09/19/22 15:00 BP 140/94 09/19/22 15:00 Pulse Ox 97 09/19/22 15:00 FiO2 Intake & Output 09/19/22 09/19/22 09/20/22 06:59 18:59 06:59 Intake Total 1540 236 Balance 1540 236 Intake: Intake, IV Titration 1000 Amount Sodium Chloride 0.9% 1, 1000 000 ml @ 100 mls/hr IV . Q10H STA Rx#:[id number] Oral 540 236 Other: Voiding Method Toilet Toilet # Voids 3 - Exam Mental status, speech and language functions are perfectly normal. Cranial nerves, strength is normal. - Labs CBC & Chem 7: 09/17/22 20:29 09/17/22 20:29 Assessment and Plan Assessment: * Breakthrough seizure, likely due to stopping Briviact 2 weeks ago. Her seizures were well controlled on Lamictal 200 mg twice a day and Briviact 100 mg twice a day. Her neurologist recommended her to stop Briviact, and patient has developed breakthrough seizures since stopping this medication. Patient is having increased frequency seizures, suspected nonepileptic seizures. * Seizure disorder for last 6 years. Patient states she has epileptic and none pileptic seizures. * History of venous placement * History of bariatric surgery 2016. Plan: * Patient needs to go back on her previous medication Briviact. Patient's has not brought her home bottle of Briviact. Patient will receive a higher dose of Keppra tonight of 1500 mg. Patient was mentioned that have her bring her home medication Briviact, and once it is verified by the pharmacy, should be resumed at 100 mg twice a day. At that point, Keppra will be discontinued. * Increase Lamictal to 225 mg twice a day. She was previously taking Lamictal 200 mg twice a day. * Prolonged EEG for 1.25 hours was performed today. One seizure was captured. According to preliminary report from Dr. Callahan, was normal. * We will check prolactin level, CPK, as she is complaining of body hurting from tensing up" from seizure". Patient requesting pain medication. She will be given morphine 2 mg IV push 1 dose only. * If remains seizure free overnight, patient will be clear for discharge in the morning. * Recommend patient follow up with her neurologist within 1 week to discuss her seizure medications.
[2022-09-20] MEDS: HYDROcodone/APAP 7.5-325MG 1 EACH TAB PO PRN ×3 (00:28→16:39)
[2022-09-20 03:35] LABS: Prolactin 80.2 ng/mL (2.800-29.200)
[2022-09-20] MEDS: PANTOPRAZOLE 40 MG TABLET PO SCH (06:21)
[2022-09-20] MEDS: METOCLOPRAMIDE 5 MG TAB PO SCH ×3 (06:21→18:37)
[2022-09-20] MEDS: BUTALB/APAP/CAFF 50-325-40MG TAB PO PRN (06:25)
[2022-09-20] MEDS: MAGNESIUM OXIDE 400 MG TAB PO SCH ×3 (09:37→21:18)
[2022-09-20] MEDS: ENOXAPARIN 40 MG/0.4 ML SYRINGE SQ SCH (09:37)
[2022-09-20] MEDS: LITHIUM CARBONATE 300 MG CAP PO SCH ×2 (09:37→21:17)
[2022-09-20] MEDS: lamoTRIgine 100 MG TAB PO SCH ×2 (09:37→21:17)
[2022-09-20] MEDS: busPIRone HCl 5 MG TAB PO SCH ×3 (09:37→21:18)
[2022-09-20] MEDS: lamoTRIgine 25 MG TAB PO SCH ×2 (09:39→21:17)
[2022-09-20] MEDS: levETIRAcetam IV 1,500 MG in SALINE 1 100ML.BAG IVPB SCH (09:40)
[2022-09-20] MEDS: diazePAM 5 MG TAB PO SCH ×2 (09:50→21:16)
[2022-09-20] MEDS: LORazepam 2 MG/ML INJ IV PRN ×2 (12:03→17:08)
[2022-09-20] MEDS ORDERED: BRIVARACETAM 100 MG PO PRN (12:33)
--- NOTE | 2022-09-20 13:20 | P.PN ---
Subjective Progress Note Date: 09/20/22 Patient was seen for a follow-up. Patient states she had a bad night because she had 4 seizures including one early this morning. Patient's nurse reported that while having seizure, her arms were lifted up and when they dropped, she avoided her face and brought it fell behind her head. Nurse was suspecting nonepileptic seizure, which she has a diagnosis of also. Patient states that she was admitted to [facility] in May 2022. We tried to obtain those records, but apparently this in the records from 09/22/2021 admission. She was admitted from [facility] and discharged on 09/22/2021. Her admitting diagnosis was seizures, seizure-like activity, breakthrough seizure. Discharge diagnosis was history of epilepsy, pseudoseizures/psychogenic nonepileptic seizures, anxiety/depression, insomnia, chronic pain, pain seeking behavior. It was reported in the discharge summary that patient had multiple episodes in the hospital, all of them deemed to be pseudoseizures. She was seen by neurology and psychiatry. Neurology increased the dose of Lamictal. EEG was negative. Psychiatry assessed the patient recommended follow-up outpatient. At that time patient was taking Onfi 20 mg twice a day Depakote to her 50 mg 3 times a day, lithium Seroquel Ambien. Prolonged EEG performed from 09/21/2021 at 3:11 PM and ended on 09/22/2021 at 9:10 AM. Background was normal. Frequent left temporal slowing of high amplitude theta intermixed with moderate to high amplitude sharp waves with maximal field potential at T3 and a spread to T5 and F7. These waveforms were seen predominantly in the first portion of the test but they did not occur later on. Careful review of persist spike detection programs revealed no ictal pattern. Summary of the abnormal findings was frequent left temporal slowing of high amplitude theta intermixed with moderate to high amplitude sharp waves with maximal field potential at F7 and T3. These findings indicate presence of potentially epileptogenic left hemispheric cerebral dysfunction involving the frontal and temporal lobe. There is no electrical graphic seizure in this segment. This was read by Dr. Joanne Zabala MD Patient has an appointment with her neurologist Betsy José on 09/26/2022. Prolonged EEG performed yesterday according to preliminary report from Dr. Callahan, was normal. Patient had 1 typical seizure in which she tensed up, was staring, not responding, with some trembling of the left shoulder. No epileptiform activity was seen during this ictal event, or rest of the study. Suspected nonepileptic seizures. Patient states that she can hear what's going on around, could hear the nurses but could not move. Patient states that 90% of the time with her seizures, she can hear what is going on around her. She believes she had 4 seizures today. She states that she cannot control the seizures. She states this she tried 3 times, her whole-body hurts. She is asking for pain medication. And she believes that either morphine or Dilaudid works. Patient mentions today that she has history of complete hysterectomy due to severe endometriosis. Objective - Vital Signs Vital signs: Vital Signs Temp 97.5 F L 09/20/22 08:54 Pulse 105 H 09/20/22 08:54 Resp 18 09/20/22 08:54 BP 150/84 09/20/22 08:54 Pulse Ox 97 09/20/22 08:54 FiO2 Intake & Output 09/19/22 09/20/22 09/20/22 18:59 06:59 18:59 Intake Total 236 118 Balance 236 118 Intake: Oral 236 118 Other: Voiding Method Toilet Toilet # Voids 3 1 - Exam Mental status, speech and language functions are perfectly normal. Cranial nerves, strength is normal. No ataxia. Patient is sitting comfortably in the bed, appears somewhat stressed. (Yesterday when I had entered the room, patient was sitting in the bed, watching some movie on her I-pad) - Labs CBC & Chem 7: 09/17/22 20:29 09/17/22 20:29 Labs: Abnormal Lab Results - Last 24 Hours (Table) 09/19/22 Range/Units 20:04 Prolactin 80.200 H (2.800-29.200) ng/mL Assessment and Plan Assessment: * Breakthrough seizure, likely due to stopping Briviact 2 weeks ago. Her seizures were well controlled on Lamictal 200 mg twice a day and Briviact 100 mg twice a day. Her neurologist recommended her to stop Briviact, and patient has developed breakthrough seizures since stopping this medication. Patient is having increased frequency seizures, need to go back on Briviact. With her previous history of confirmed nonepileptic seizures, it is very difficult to assess if any particular seizure is epileptic or nonepileptic in nature. It appears that previous admissions to the hospital for recurrent seizures were felt nonepileptic, and her current seizures semiology is the same as described (in outside records), and those were considered nonepileptic. * Seizure disorder for last 6 years. Patient has been diagnosed with mixed seizure disorder. She has epileptic and nonepileptic seizures. * History of VNS placement * History of bariatric surgery 2015. * Anxiety depression * Obesity * History of endometriosis Plan: * Patient's today has brought her home bottle of Briviact. Patient has resumed Briviact 100 mg twice a day. Keppra did not work despite high dose 1500 mg twice a day. We will stop Keppra. * Increase Lamictal to 225 mg twice a day. She was previously taking Lamictal 200 mg twice a day prior to arrival to the hospital. * Prolonged EEG for 1.25 hours was performed today. One seizure was captured. According to preliminary report from Dr. Callahan, was normal. Awaiting official prolonged EEG report. * Prolactin level 80.20, which is elevated, CPK is normal 31. * Discussed with Dr Johnson. Patient's elevated prolactin level is of unclear cause. It can happen after a seizure, but can also be related to her hormonal disturbance as she has amenorrhea, or could be related to her previously used psych medications. MRI was considered, but she has VNS, cannot have it. * Patient is complaining of body hurting from tensing up" from seizure". Patient states that Neurontin makes her palpitations. She states she has previously tried Lyrica and Cymbalta did not work. She states morphine worked and she slept very well after it. We will give another dose of morphine 2 mg IV push 1 dose only. * If remains seizure free overnight, patient will be clear for discharge in the morning. * Recommend patient follow up with her neurologist and pain specialist within 1 week to discuss her seizure medications. She has an appointment on 09/26/2022. Patient was recommended to follow with [facility] ep ilepsy department or visit [facility] for second opinion evaluation.
[2022-09-20] MEDS ORDERED: MORPHINE SULFATE 2 MG/ML SYRINGE IVP STA (13:27)
[2022-09-20] MEDS: DOXAZOSIN 2 MG TAB PO SCH (21:16)
[2022-09-20] MEDS: methocarbamoL 500 MG TAB PO SCH (21:17)
--- NOTE | 2022-09-20 22:15 | EEG ---
ELECTROENCEPHALOGRAM REPORT ELECTROENCEPHALOGRAM (EEG) REPORT: TECHNIQUE: This is a report from a 2.5-hour prolonged inpatient digital EEG performed using the 10/20 international electrode placement system. HISTORY: Epileptic seizures, nonepileptic seizures. CURRENT MEDICATIONS: 1. Tylenol. 2. Fioricet. 3. Lioresal. 4. BuSpar. 5. Valium. 6. Cardura. 7. Lamictal. 8. Keppra. 9. Laona. 10.Claritin, and others. FINDINGS: Recording start time: 09/19/2022 at 1439. Recording end time: 09/19/2022 at 1606. EVENTS: During this segment of the patient's long-term video EEG recording, no clinical or electrographic seizures were recorded. Please note that the following events were noted by the special systems technician. On 09/19/2022 at 14:50:19, just after photic stimulation, the patient's head is shaking [id number]. At 14:51:55, the patient is not responding and there is low amplitude left shoulder twitching. The patient is not responding at 14:52:53 and 14:54:20. At 15:00:00, the patient feels funny and lightheaded. These events are not associated with epileptiform activity. ADDITIONAL EVENTS: At 15:00:30, the patient feels like she is in a bubble and at 15:03:43, she does not feel right. At 15:04:30, the patient feels like she is in water. These events are not associated with epileptiform activity. Please note that an excess of beta frequency activity was noted. This is not epileptiform in nature and may in part be due to medication effect. BACKGROUND: The background activity consists of 8-9 hertz rhythmic waveforms symmetrically distributed throughout both posterior quadrants. ACTIVATION: Hyperventilation: Not performed. Photic stimulation: Symmetric driving seen. Sleep: Drowsy. ABNORMALITIES: None. IMPRESSION: Normal 2.5-hour video EEG. No clinical or electrographic seizures were recorded. No epileptiform activity was present. Numerous symptoms/episodes were recorded as described above that were not associated with epileptiform activity. These findings were discussed in preliminary format with the consulting neurologist on 09/19/2022 at 1730. MMODL / IJN: [id number] /
[2022-09-20] MEDS ORDERED: traZODone HCL 50 MG TAB PO SCH (23:15)
[2022-09-21] MEDS: HYDROcodone/APAP 7.5-325MG 1 EACH TAB PO PRN ×2 (00:51→09:03)
[2022-09-21] MEDS: METOCLOPRAMIDE 5 MG TAB PO SCH (06:42)
[2022-09-21] MEDS: PANTOPRAZOLE 40 MG TABLET PO SCH (06:42)
[2022-09-21] MEDS: BACLOFEN 10 MG TAB PO PRN (06:46)
[2022-09-21 06:50] VITALS: TEMP 98.3
--- NOTE | 2022-09-21 08:19 | P.PN ---
Subjective Progress Note Date: 09/20/22 Caroline Newton is a 32 yo F with PMH of seizure disorder, VNS in place, pseudoseizures, bipolar disorder who presented to the ED with increasing seizures over the past few weeks. She complains she has been having multiple seizures a day which she describes as 2-4 minutes of becoming stiff and nonresponsive although she remains alert and able to hear and see fully. She complains of significant generalized myalgias and malaise after her seizures. She states her VNS has been constantly going off and she complains of buzzzing and L sided ear pressure from this. She has been regularly following with [facility] and most recently saw them about 3 weeks ago. At that time her breviact was stopped and she also had seroquel stopped earlier last month. She has had multiple recent imaging scans and was transferred to [facility] for continous EEG about 6 weeks ago after breakthrough seizures at that time, this is when she was started on breviact. On presentation vitals stable, labs remarkable for mildly elevated LFTs. 09/19/22 seizure precautions maintained. 2 seizures reported last night and one this morning. Patient did receive Seroquel last night, has since been discontinued. Complains of body stiffness, achiness especially in her back and upper neck, worsened after seizures. Discussed using muscle relaxants, not opioids. Evaluated by neurology last night with recommendations noted and appreciated. Denies any chest pain, palpitations or shortness of breath. 09/20/2022. She has continued to experience seizures she describes as body stiffening and muscle aches with preserved hearing and vision. Neurology following. Her prolactin is elevated to 80 but she cannot have an MRI due to VNS. She last had a pituitary MRI in 2019 which was a normal study, this was done as she had previously been noted with elevated prolactin in 2019 up to 45. Objective - Vital Signs Vital signs: Vital Signs Temp 98.3 F 09/21/22 02:00 Pulse 90 09/21/22 02:00 Resp 18 09/21/22 02:00 BP 104/60 09/21/22 02:00 Pulse Ox 98 09/21/22 02:00 FiO2 Intake & Output 09/20/22 09/21/22 09/21/22 18:59 06:59 18:59 Intake Total 118 Balance 118 Intake: Oral 118 Other: Voiding Method Toilet # Voids 2 - Exam Gen: obese, NAD CV: RRR Lungs; CTAB Neuro: AAOx3 - Labs CBC & Chem 7: 09/17/22 20:29 09/17/22 20:29 Assessment and Plan Plan: Continue with current management, breviact, neurology following. Discharge plannin in progress
[2022-09-21 08:30] VITALS: PULSE 79; RESP 16
[2022-09-21 08:31] VITALS: BP 112/77
[2022-09-21] MEDS: lamoTRIgine 25 MG TAB PO SCH (09:01)
[2022-09-21] MEDS: LITHIUM CARBONATE 300 MG CAP PO SCH (09:01)
[2022-09-21] MEDS: busPIRone HCl 5 MG TAB PO SCH (09:02)
[2022-09-21] MEDS: MAGNESIUM OXIDE 400 MG TAB PO SCH (09:02)
[2022-09-21] MEDS: lamoTRIgine 100 MG TAB PO SCH (09:02)
[2022-09-21] MEDS: ENOXAPARIN 40 MG/0.4 ML SYRINGE SQ SCH (09:04)
[2022-09-21] MEDS: diazePAM 5 MG TAB PO SCH (09:37)
--- NOTE | 2022-09-30 23:34 | P.PN ---
Subjective Progress Note Date: 09/21/22 09/21/2022: Patient was walking in the room holding onto the IV pole. Patient has not had any seizure for last 24 hours. She states that she is feeling and breathing better. No new concerns. 09/20/2022: Patient was seen for a follow-up. Patient states she had a bad night because she had 4 seizures including one early this morning. Patient's nurse reported that while having seizure, her arms were lifted up and when they dropped, she avoided her face and brought it fell behind her head. Nurse was suspecting nonepileptic seizure, which she has a diagnosis of also. Patient states that she was admitted to [facility] in May 2022. We tried to obtain those records, but apparently this in the records from 09/22/2021 admission. She was admitted from 2021 and discharged on 09/22/2021. Her admitting diagnosis was seizures, seizure-like activity, breakthrough seizure. Discharge diagnosis was history of epilepsy, pseudoseizures/psychogenic nonepileptic seizures, anxiety/depression, insomnia, chronic pain, pain seeking behavior. It was reported in the discharge summary that patient had multiple episodes in the hospital, all of them deemed to be pseudoseizures. She was seen by neurology and psychiatry. Neurology increased the dose of Lamictal. EEG was negative. Psychiatry assessed the patient recommended follow-up outpatient. At that time patient was taking Onfi 20 mg twice a day Depakote to her 50 mg 3 times a day, lithium Seroquel Ambien. Prolonged EEG performed from 09/21/2021 at 3:11 PM and ended on 09/22/2021 at 9:10 AM. Background was normal. Frequent left temporal slowing of high ampl itude theta intermixed with moderate to high amplitude sharp waves with maximal field potential at T3 and a spread to T5 and F7. These waveforms were seen predominantly in the first portion of the test but they did not occur later on. Careful review of persist spike detection programs revealed no ictal pattern. Summary of the abnormal findings was frequent left temporal slowing of high amplitude theta intermixed with moderate to high amplitude sharp waves with maximal field potential at F7 and T3. These findings indicate presence of potentially epileptogenic left hemispheric cerebral dysfunction involving the frontal and temporal lobe. There is no electrical graphic seizure in this segm ent. This was read by Dr. Joanne Zabala MD Patient has an appointment with her neurologist Betsy José on 09/26/2022. Prolonged EEG performed yesterday according to preliminary report from Dr. Callahan, was normal. Patient had 1 typical seizure in which she tensed up, was staring, not responding, with some trembling of the left shoulder. No epileptiform activity was seen during this ictal event, or rest of the study. Suspected nonepileptic seizures. Patient states that she can hear what's going on around, could hear the nurses but could not move. Patient states that 90% of the time with her seizures, she can hear what is going on around her. She believes she had 4 seizures today. She states that she cannot control the seizures. She states this she tried 3 times, her whole-body hurts. She is asking for pain medication. And she believes that either morphine or Dilaudid works. Patient mentions today that she has history of complete hysterectomy due to severe endometriosis. Objective - Vital Signs Vital signs: Vital Signs Temp 98.3 F 09/21/22 07:00 Pulse 79 09/21/22 07:00 Resp 16 09/21/22 07:00 BP 112/77 09/21/22 07:00 Pulse Ox 98 09/21/22 07:00 FiO2 - Exam Mental status, speech and language functions are perfectly normal. Cranial nerves, facial strength is normal. No ataxia. - Labs CBC & Chem 7: 09/17/22 20:29 09/17/22 20:29 Assessment and Plan Assessment: * Breakthrough seizure, likely due to stopping Briviact 2 weeks ago. Her seizures were well controlled on Lamictal 200 mg twice a day and Briviact 100 mg twice a day. Her neurologist recommended her to stop Briviact, and patient has developed breakthrough seizures since stopping this medication. Patient is having increased frequency seizures, need to go back on Briviact. With her previous history of confirmed nonepileptic seizures, it is very difficult to assess if any particular seizure is epileptic or nonepileptic in nature. It appears that previous admissions to the hospital for recurrent seizures were felt nonepileptic, and her current seizures semiology is the same as described (in outside records), and those were considered nonepileptic. * Seizure disorder for last 6 years. Patient has been diagnosed with mixed seizure disorder. She has epileptic and nonepileptic seizures. * History of VNS placement * History of bariatric surgery 2016. * Anxiety depression * Obesity * History of endometriosis Plan: * Patient has resumed Briviact 100 mg twice a day. Keppra did not work despite high dose 1500 mg twice a day. We will stop Keppra. * Increase Lamictal to 225 mg twice a day. She was previously taking Lamictal 200 mg twice a day prior to arrival to the hospital. * Prolonged EEG for 1.25 hours performed 09/20/2022 was normal 2.5 hour video EEG. No clinical or electrographic seizures were recorded. No epileptiform activity was present. Numerous symptoms/episodes were recorded and were not associated with epileptiform activity. One of this event was her typical seizure consisting of unresponsiveness, stiffening of the arms, and some tremoring of the left shoulder. No epileptiform activity was seen during this ictal event, suggestive of nonepileptic seizure. * Prolactin level 80.20, which is elevated, CPK is normal 31. * Discussed with Dr Johnson. Patient's elevated prolactin level is of unclear cause. It can happen after a seizure, but can also be related to her hormonal disturbance as she has amenorrhea, or could be related to her previously used psych medications. MRI was considered, but she has VNS, cannot have it. * Patient is complaining of body hurting from tensing up" from seizure". Patient states that Neurontin makes her palpitations. She states she has previously tried Lyrica and Cymbalta did not work. She states morphine worked and she slept very well after it. Patient does have some pain medication seeking behavior. * As patient is seizure-free for last 24 hours, clear for discharge. * Recommend patient follow up with her neurologist and pain specialist within 1 week to discuss her seizure medications. She has an appointment on 09/26/2022. Patient was recommended to follow with [facility] epilepsy department or visit [facility] for second opinion evaluation.
== END 2022-09-21 12:57 | disposition home or self-care (01) ==
LOC: EC 19:17 → 6NMEDSUR 21:36
PROVIDERS: ADMIT Family Medicine; ATTEND Family Medicine
DX: G40.901 Epilepsy, unspecified, not intractable, with status epilepticus (principal); K21.9 Gastro-esophageal reflux disease without esophagitis; R79.89 Other specified abnormal findings of blood chemistry; F31.9 Bipolar disorder, unspecified; F41.9 Anxiety disorder, unspecified; G25.81 Restless legs syndrome; G89.29 Other chronic pain; M79.10 Myalgia, unspecified site; E22.1 Hyperprolactinemia; G47.00 Insomnia, unspecified; R00.0 Tachycardia, unspecified; D24.2 Benign neoplasm of left breast; D24.1 Benign neoplasm of right breast; E66.01 Morbid (severe) obesity due to excess calories; Z68.42 Body mass index [BMI] 45.0-49.9, adult; Z79.899 Other long term (current) drug therapy; Z88.5 Allergy status to narcotic agent; Z88.6 Allergy status to analgesic agent; Z96.82 Presence of neurostimulator; Z87.19 Personal history of other diseases of the digestive system; Z98.84 Bariatric surgery status; Z90.49 Acquired absence of other specified parts of digestive tract; Z90.79 Acquired absence of other genital organ(s); Z90.711 Acquired absence of uterus with remaining cervical stump; Z87.828 Personal history of other (healed) physical injury and trauma; Z79.890 Hormone replacement therapy; Z90.710 Acquired absence of both cervix and uterus; Z87.42 Personal history of other diseases of the female genital tract; Z80.49 Family history of malignant neoplasm of other genital organs; Z80.0 Family history of malignant neoplasm of digestive organs; Z82.49 Family history of ischemic heart disease and other diseases of the circulatory system; Z83.49 Family history of other endocrine, nutritional and metabolic diseases; Z84.1 Family history of disorders of kidney and ureter
CPT/HCPCS: 96376 ×3; 96372 ×3; 96375; 96374; 99285; 36415; 95813; 80053; 82550; 83735; 84100; 85025; 84146; G0378 ×5; J2060 ×4; J1650 ×3; J2270 ×3; J1953 ×3

== ENCOUNTER 2022-09-30 06:04 | Emergency (ER) | payer OTHER ==
[2022-09-30 06:11] VITALS: RESP 18; TEMP 98.1
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
--- NOTE | 2022-09-30 06:34 | XR ---
EXAMINATION TYPE: XR chest 2V DATE OF EXAM: 09/30/2022 COMPARISON: 09/23/2022 HISTORY: Chest pain TECHNIQUE: FINDINGS: Heart and mediastinum are normal. Lungs are clear. Diaphragm is normal. Bony thorax appears normal. IMPRESSION: Normal chest. No change.
[2022-09-30 06:35] VITALS: BP 134/87; PULSE 88
[2022-09-30] MEDS ORDERED: oxyCODONE-APAP 10-325MG 1 EACH TAB PO STA (06:45)
== END 2022-09-30 06:55 | disposition home or self-care (01) ==
LOC: EC 06:04
DX: U07.1 COVID-19 (principal); K21.9 Gastro-esophageal reflux disease without esophagitis; F41.9 Anxiety disorder, unspecified; Z88.6 Allergy status to analgesic agent; Z88.8 Allergy status to other drugs, medicaments and biological substances; Z79.899 Other long term (current) drug therapy
CPT/HCPCS: 71046; 99285

== ENCOUNTER 2022-10-28 13:01 | Emergency (ER) | payer OTHER ==
[2022-10-28 13:08] VITALS: TEMP 97.5
[2022-10-28] MEDS ORDERED: SODIUM CHLORIDE 0.9% 1,000 ML IV STA (13:10)
[2022-10-28] MEDS ORDERED: ONDANSETRON 4 MG/2 ML VIAL IVP STA (13:50)
[2022-10-28] MEDS ORDERED: ACETAMINOPHEN IV (For NPO) 1,000 MG in EMPTY BAG 1 BAG IVPB STA (13:51)
[2022-10-28 13:58] LABS: Basophils % (A) 0 %; Eosinophils % (A) 0 %; HCT 41.3 % (34.0-46.0); HGB 13.2 gm/dL (11.4-16.0); Lymphocytes # (A) 1.5 k/uL (1.0-4.8); Lymphocytes % (A) 14 %; MCH 30.8 pg (25.0-35.0); Mean Platelet Volume 6.8; Monocytes # (A) 0.4 k/uL (0-1.0); Monocytes % (A) 4 %; Neutrophils # (A) 8.2 k/uL (1.3-7.7); Neutrophils % (A) 80 %; Platelet Count 369 k/uL (150-450); RDW 13.3 % (11.5-15.5); WBC 10.3 k/uL (3.8-10.6)
[2022-10-28 14:12] LABS: ALT 41 U/L (4-34); AST 31 U/L (14-36); African American GFR (CKD) >90 (>60 ml/min/1.73 sqM); Albumin 4.3 g/dL (3.5-5.0); Alkaline Phosphatase 132 U/L (38-126); Anion Gap 9 mmol/L; Blood Urea Nitrogen 15 mg/dL (7-17); Calcium 9.5 mg/dL (8.4-10.2); Carbon Dioxide 21 mmol/L (22-30); Chloride 111 mmol/L (98-107); Glucose 87 mg/dL (74-99); Lipase 199 U/L (23-300); Non-African American GFR(CKD) >90 (>60 ml/min/1.73 sqM); Potassium 4.1 mmol/L (3.5-5.1); Sodium 141 mmol/L (137-145); Total Bilirubin 0.2 mg/dL (0.2-1.3); Total Protein 6.9 g/dL (6.3-8.2)
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
[2022-10-28 16:01] LABS: Amorphous Sediment,Urine Rare /hpf; Appearance,Urine Clear (Clear); Bacteria,Urine Rare /hpf; Bilirubin,Urine Negative (Negative); Blood,Urine Negative (Negative); Color,Urine Yellow; Glucose,Urine (UA) Negative (Negative); Ketones,Urine Trace (Negative); Leukocyte Esterase,Urine Trace (Negative); Mucus,Urine Few /hpf; Nitrite,Urine Negative (Negative); Protein,Urine 1+ (Negative); Squamous Epithelial Cell,Urine 2 /hpf (0-4); Urobilinogen,Urine <2.0 mg/dL (<2.0); WBC,Urine 1 /hpf (0-5)
[2022-10-28 16:04] VITALS: BP 130/85; PULSE 100; RESP 18
== END 2022-10-28 16:05 | disposition left against medical advice (07) ==
LOC: EC 13:01
DX: R10.9 Unspecified abdominal pain (principal); R11.2 Nausea with vomiting, unspecified; F41.9 Anxiety disorder, unspecified; K21.9 Gastro-esophageal reflux disease without esophagitis; Z79.899 Other long term (current) drug therapy; Z88.5 Allergy status to narcotic agent; Z88.6 Allergy status to analgesic agent; Z88.8 Allergy status to other drugs, medicaments and biological substances; Z90.49 Acquired absence of other specified parts of digestive tract
CPT/HCPCS: 36415; 80053; 83605; 83690; 85025; 81001; 81025; 99284; 96374; 96361; J2405

== ENCOUNTER 2022-12-18 13:02 | Emergency (ER) | payer OTHER ==
[2022-12-18] MEDS ORDERED: SODIUM CHLORIDE 0.9% 500 ML 500 ML IV STA (13:12)
[2022-12-18 13:18] VITALS: BP 129/87; PULSE 95; RESP 18; TEMP 98
[2022-12-18] MEDS ORDERED: ORPHENADRINE 30 MG/ML 2 ML VIAL IVP STA (13:32)
[2022-12-18] MEDS ORDERED: HYDROcodone/APAP 10-325MG 1 EACH TAB PO ONE (13:32)
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
[2022-12-18 14:23] LABS: Basophils % (A) 0 %; Eosinophils # (A) 0.3 k/uL (0-0.7); Eosinophils % (A) 5 %; HCT 39.6 % (34.0-46.0); HGB 12.4 gm/dL (11.4-16.0); Lymphocytes # (A) 1.3 k/uL (1.0-4.8); Lymphocytes % (A) 22 %; MCH 30.1 pg (25.0-35.0); MCHC 31.4 g/dL (31.0-37.0); Monocytes # (A) 0.3 k/uL (0-1.0); Monocytes % (A) 4 %; Neutrophils # (A) 4.2 k/uL (1.3-7.7); Neutrophils % (A) 67 %; Platelet Count 312 k/uL (150-450); RBC 4.13 m/uL (3.80-5.40); RDW 13.2 % (11.5-15.5); WBC 6.2 k/uL (3.8-10.6)
--- NOTE | 2022-12-18 14:42 | XR ---
EXAMINATION TYPE: XR thoracic spine 3 views DATE OF EXAM: 12/18/2022 COMPARISON: NONE HISTORY: 32-year-old female seizure, back pain TECHNIQUE: 3 views FINDINGS: 12 rib-bearing thoracic vertebral bodies. All pedicles are visualized. Cholecystectomy clips. Mild de generative disc disease midthoracic spine with disc space narrowing and mild endplate spondylosis. Ve rtebral body heights are preserved and alignment is maintained. IMPRESSION: Mild degenerative disc disease midthoracic spine. No vertebral compression collapse or malalignment.
[2022-12-18 14:44] LABS: ALT 27 U/L (4-34); AST 27 U/L (14-36); African American GFR (CKD) >90 (>60 ml/min/1.73 sqM); Albumin 3.7 g/dL (3.5-5.0); Alkaline Phosphatase 146 U/L (38-126); Anion Gap 11 mmol/L; Blood Urea Nitrogen 11 mg/dL (7-17); Calcium 8.8 mg/dL (8.4-10.2); Carbon Dioxide 23 mmol/L (22-30); Chloride 106 mmol/L (98-107); Glucose 95 mg/dL (74-99); Lithium 0.4 mmol/L; Magnesium 2.2 mg/dL (1.6-2.3); Non-African American GFR(CKD) >90 (>60 ml/min/1.73 sqM); Potassium 3.8 mmol/L (3.5-5.1); Sodium 140 mmol/L (137-145); Total Bilirubin 0.2 mg/dL (0.2-1.3); Total Protein 6.1 g/dL (6.3-8.2)
== END 2022-12-18 15:32 | disposition home or self-care (01) ==
LOC: EC 13:02
DX: G40.909 Epilepsy, unspecified, not intractable, without status epilepticus (principal); M54.9 Dorsalgia, unspecified; K21.9 Gastro-esophageal reflux disease without esophagitis; F41.9 Anxiety disorder, unspecified; Z88.5 Allergy status to narcotic agent; Z88.6 Allergy status to analgesic agent; Z88.8 Allergy status to other drugs, medicaments and biological substances; Z79.899 Other long term (current) drug therapy
CPT/HCPCS: 36415; 80053; 80175; 80178; 83735; 85025; 72070; 99285; 96374; J2360

== ENCOUNTER 2022-12-28 22:39 | Emergency (ER) | payer OTHER ==
[2022-12-28 22:50] VITALS: RESP 16; TEMP 97.6
[2022-12-28] MEDS ORDERED: MORPHINE SULFATE 4 MG/ML SYRINGE IV STA (23:04)
[2022-12-28] MEDS ORDERED: LORazepam 2 MG/ML INJ IV STA (23:04)
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
[2022-12-29 00:39] VITALS: BP 137/98; PULSE 95
== END 2022-12-29 01:01 | disposition home or self-care (01) ==
LOC: EC 22:39
DX: G40.909 Epilepsy, unspecified, not intractable, without status epilepticus (principal); K21.9 Gastro-esophageal reflux disease without esophagitis; F41.9 Anxiety disorder, unspecified; Z79.899 Other long term (current) drug therapy; Z88.5 Allergy status to narcotic agent; Z88.6 Allergy status to analgesic agent
CPT/HCPCS: 36415; 80178; 99284; 96374; 96375; J2060; J2270

== ENCOUNTER 2023-01-04 11:28 | Day surgery (SDC) | payer BC, OTHER ==
[2023-01-03 08:49] VITALS: BMI 47.6
[~2023-01-04 11:28] MED LIST changes: -LIDOCAINE 1% (10MG/ML) FOR IV START INTRADERMA PRN
[2023-01-04 12:51] VITALS: TEMP 96.7
[2023-01-04] MEDS ORDERED: ONDANSETRON 4 MG/2 ML VIAL IVP ONE (13:57)
[2023-01-04] MEDS ORDERED: ONDANSETRON 4 MG/2 ML VIAL ONE (13:59)
[2023-01-04] MEDS ORDERED: PROPOFOL 10 MG/ML 20 ML VIAL IV ONE (14:00)
--- NOTE | 2023-01-04 14:17 | P.PCN ---
Date of Procedure: 01/04/23 Procedure(s) Performed: BRIEF HISTORY: Patient is a 32-year-old, pleasant, white female scheduled for an upper endoscopy as a part of evaluation of heartburn and throat burning for the last 5 months duration. She is currently on Protonix 40 mg twice daily as well as Reglan 10 mg 3 times daily with no help.. PROCEDURE PERFORMED: Esophagogastroduodenoscopy with biopsy. PREOPERATIVE DIAGNOSIS: GERD/chronic throat irritation IV sedation per anesthesia. PROCEDURE: After informed consent was obtained, the patient was brought into the endoscopy unit. IV sedation was administered by Anesthesia under continuous monitoring. Initially the Olympus GIF-140 video endoscope was inserted into the mouth. Esophagus intubated without any difficulty. It was gradually advanced into the stomach . The gastric pouch appeared normal. There was evidence of previous gastric bypass surgery with Patrick-en-Y anastomosis. The anastomosis appeared normal. The afferent and efferent loop appeared normal. The scope at this time was withdrawn to the gastric pouch was carefully examined. The mucosa appeared normal.. The GE junction was located at 39 cm from the incisors. The esophagus appeared normal. There were no erosions or ulcerations seen, biopsies were done from the mid and distal esophagus and the patient tolerated the procedure well. IMPRESSION: 1. Evidence of gastric bypass surgery with normal Patrick-en-Y anastomosis. 2. Normal-appearing gastric pouch and esophagus with no evidence of esophagitis . RECOMMENDATIONS: The findings of this examination were discussed with the patient family. She was advised to follow with the biopsy results. Recommend starting her on Carafate 1 g 4 times daily and advised to stop metoclopramide for now. Continue with Protonix 40 mg twice daily..
[2023-01-04] MEDS ORDERED: MORPHINE SULFATE 2 MG/ML SYRINGE IVP ONE (14:36)
[2023-01-04 14:42] VITALS: RESP 16
[2023-01-04] MEDS ORDERED: MORPHINE SULFATE 4 MG/ML SYRINGE IV ONE (14:48)
[2023-01-04 15:24] VITALS: BP 112/72; PULSE 84
== END 2023-01-04 15:32 | disposition home or self-care (01) ==
LOC: ORWHC2ENDO 11:28
PROVIDERS: ATTEND Internal Medicine Gastroenterology
DX: K21.00 Gastro-esophageal reflux disease with esophagitis, without bleeding (principal); M19.90 Unspecified osteoarthritis, unspecified site; Z88.8 Allergy status to other drugs, medicaments and biological substances; Z88.6 Allergy status to analgesic agent
CPT/HCPCS: 88305; 88312; 43239; J2270; J2405; J2704

== ENCOUNTER 2023-01-26 16:32 | Emergency (ER) | payer BC, OTHER ==
[2023-01-26 16:41] VITALS: TEMP 98.3
[2023-01-26] MEDS ORDERED: SODIUM CHLORIDE 0.9% 1,000 ML IV STA (16:51)
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
--- NOTE | 2023-01-26 17:25 | XR ---
EXAMINATION TYPE: XR ankle complete RT DATE OF EXAM: 01/26/2023 COMPARISON: NONE HISTORY: 32-year-old female with pain after fall TECHNIQUE: 3 views FINDINGS: Mild circumferential soft tissue swelling. Ankle mortise is congruent. No acute fracture, s ubluxation, or dislocation. Small plantar heel spur. Dorsal hindfoot soft tissue swelling also noted. IMPRESSION: Mild circumferential soft tissue swelling at the ankle as well as dorsal soft tissue swelling at the hindfoot. No acute osseous abnormality seen. Small plantar heel spur.
[2023-01-26 18:33] LABS: Basophils % (A) 0 %; Eosinophils # (A) 0.6 k/uL (0-0.7); Eosinophils % (A) 4 %; HGB 12.7 gm/dL (11.4-16.0); Hypochromasia Slight; Lymphocytes # (A) 1.4 k/uL (1.0-4.8); Lymphocytes % (A) 11 %; MCH 30.2 pg (25.0-35.0); MCHC 30.9 g/dL (31.0-37.0); MCV 97.7 fL (80.0-100.0); Mean Platelet Volume 7.2; Monocytes # (A) 0.6 k/uL (0-1.0); Monocytes % (A) 4 %; Neutrophils # (A) 10.1 k/uL (1.3-7.7); Neutrophils % (A) 79 %; Platelet Count 364 k/uL (150-450); RDW 12.9 % (11.5-15.5); WBC 12.8 k/uL (3.8-10.6)
[2023-01-26] MEDS ORDERED: ACETAMINOPHEN TAB 325 MG TAB PO STA (18:40)
[2023-01-26] MEDS ORDERED: ORPHENADRINE 30 MG/ML 2 ML VIAL IVP STA (18:40)
[2023-01-26 18:50] VITALS: PULSE 86
[2023-01-26 18:56] LABS: Appearance,Urine Clear (Clear); Bilirubin,Urine Negative (Negative); Blood,Urine Negative (Negative); Color,Urine Light Yellow; Glucose,Urine (UA) Negative (Negative); Ketones,Urine Negative (Negative); Leukocyte Esterase,Urine Negative (Negative); Nitrite,Urine Negative (Negative); Protein,Urine Negative (Negative); Specific Gravity,Urine 1.014 (1.001-1.035); Urobilinogen,Urine <2.0 mg/dL (<2.0)
[2023-01-26 19:03] LABS: ALT 32 U/L (4-34); AST 27 U/L (14-36); African American GFR (CKD) >90 (>60 ml/min/1.73 sqM); Albumin 4.1 g/dL (3.5-5.0); Alcohol <10 mg/dL; Alkaline Phosphatase 116 U/L (38-126); Anion Gap 9 mmol/L; Blood Urea Nitrogen 12 mg/dL (7-17); Calcium 8.8 mg/dL (8.4-10.2); Carbon Dioxide 24 mmol/L (22-30); Chloride 105 mmol/L (98-107); Glucose 84 mg/dL (74-99); Lithium 0.7 mmol/L; Magnesium 2.6 mg/dL (1.6-2.3); Non-African American GFR(CKD) >90 (>60 ml/min/1.73 sqM); Potassium 4.8 mmol/L (3.5-5.1); Sodium 138 mmol/L (137-145); Total Bilirubin 0.3 mg/dL (0.2-1.3); Total Protein 6.8 g/dL (6.3-8.2)
[2023-01-26] MEDS ORDERED: Acetaminophen-Codeine 300-30mg TAB PO STA (20:23)
[2023-01-26 20:32] VITALS: BP 135/86; RESP 20
== END 2023-01-26 20:32 | disposition home or self-care (01) ==
LOC: EC 16:32
DX: R56.9 Unspecified convulsions (principal); F41.9 Anxiety disorder, unspecified; K21.9 Gastro-esophageal reflux disease without esophagitis; M19.90 Unspecified osteoarthritis, unspecified site; Z79.899 Other long term (current) drug therapy; Z88.5 Allergy status to narcotic agent; Z88.6 Allergy status to analgesic agent; Z88.8 Allergy status to other drugs, medicaments and biological substances; Z90.49 Acquired absence of other specified parts of digestive tract
CPT/HCPCS: 36415; 93005; 80053; 80175; 80178; 83735; 85025; 81003; 80320; 73610; 99284; 96374; 96361 ×2; J2360

== ENCOUNTER 2023-03-14 18:47 | Emergency (ER) | payer BC, OTHER ==
[2023-03-14 18:53] VITALS: TEMP 98.1
[2023-03-14] MEDS ORDERED: SODIUM CHLORIDE 0.9% 1,000 ML IV STA (18:55)
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
[2023-03-14 20:12] LABS: Basophils % (A) 0 %; Eosinophils # (A) 0.4 k/uL (0-0.7); Eosinophils % (A) 4 %; HCT 41.9 % (34.0-46.0); HGB 13.1 gm/dL (11.4-16.0); Lymphocytes # (A) 1.6 k/uL (1.0-4.8); Lymphocytes % (A) 19 %; MCHC 31.4 g/dL (31.0-37.0); MCV 95.6 fL (80.0-100.0); Mean Platelet Volume 7.7; Monocytes # (A) 0.4 k/uL (0-1.0); Monocytes % (A) 5 %; Neutrophils # (A) 5.9 k/uL (1.3-7.7); Neutrophils % (A) 70 %; Platelet Count 307 k/uL (150-450); RBC 4.39 m/uL (3.80-5.40); RDW 13.2 % (11.5-15.5); WBC 8.5 k/uL (3.8-10.6)
[2023-03-14 20:20] LABS: ALT 45 U/L (4-34); AST 42 U/L (14-36); African American GFR (CKD) >90 (>60 ml/min/1.73 sqM); Albumin 4.1 g/dL (3.5-5.0); Alkaline Phosphatase 91 U/L (38-126); Anion Gap 6 mmol/L; Blood Urea Nitrogen 12 mg/dL (7-17); Calcium 8.9 mg/dL (8.4-10.2); Carbon Dioxide 25 mmol/L (22-30); Chloride 108 mmol/L (98-107); Glucose 81 mg/dL (74-99); Lithium 0.5 mmol/L; Magnesium 2.2 mg/dL (1.6-2.3); Non-African American GFR(CKD) >90 (>60 ml/min/1.73 sqM); Potassium 4.9 mmol/L (3.5-5.1); Sodium 139 mmol/L (137-145); Total Bilirubin 0.5 mg/dL (0.2-1.3)
[2023-03-14 21:02] VITALS: RESP 18
[2023-03-14 21:13] LABS: Appearance,Urine Clear (Clear); Bilirubin,Urine Negative (Negative); Blood,Urine Negative (Negative); Color,Urine Colorless; Glucose,Urine (UA) Negative (Negative); Ketones,Urine Negative (Negative); Leukocyte Esterase,Urine Negative (Negative); Nitrite,Urine Negative (Negative); PH, Urine 6.5 (5.0-8.0); Protein,Urine Negative (Negative); Specific Gravity,Urine 1.013 (1.001-1.035); Urobilinogen,Urine <2.0 mg/dL (<2.0)
[2023-03-14] MEDS ORDERED: HYDROmorphone 1 MG/ML 1 ML SYRINGE IVP STA (21:18)
--- NOTE | 2023-03-14 21:19 | XR ---
EXAMINATION TYPE: XR ankle complete RT DATE OF EXAM: 03/14/2023 COMPARISON: Right ankle radiograph 01/26/2023 HISTORY: Pain TECHNIQUE: Frontal, lateral and oblique images of the right ankle are obtained. FINDINGS: There is no acute fracture/dislocation evident. The joint spaces appear within normal martins its. Small plantar calcaneal enthesophyte. Mild soft tissue swelling of the ankle. IMPRESSION: 1. No acute fracture or dislocation. 2. Mild soft tissue swelling the ankle.
[2023-03-14 21:23] LABS: Amphetamine Screen,Urine Not Detected (NotDetected); Barbiturate Screen,Urine Detected (NotDetected); Benzodiazepines Screen,Urine Detected (NotDetected); Cocaine Screen,Urine Not Detected (NotDetected); Methadone Screen, Urine Not Detected (NotDetected); Opiate Screen,Urine Detected (NotDetected); Oxycodone Screen, Urine Not Detected (NotDetected); Phencyclidine Screen,Urine Not Detected (NotDetected); Tricyclic Antidepressant,Urine Not Detected (NotDetected); Urn Cannabinoid Scrn Not Detected (NotDetected)
[2023-03-14 21:27] VITALS: BP 119/69; PULSE 84
== END 2023-03-14 21:48 | disposition home or self-care (01) ==
LOC: EC 18:47
DX: G40.909 Epilepsy, unspecified, not intractable, without status epilepticus (principal); M25.571 Pain in right ankle and joints of right foot; K21.9 Gastro-esophageal reflux disease without esophagitis; M19.90 Unspecified osteoarthritis, unspecified site; F41.9 Anxiety disorder, unspecified; Z88.8 Allergy status to other drugs, medicaments and biological substances; Z88.5 Allergy status to narcotic agent; Z79.899 Other long term (current) drug therapy
CPT/HCPCS: 36415; 93005; 80053; 80175; 80178; 83735; 85025; 81003; 80306; 73610; 99285; 96374; 96361 ×3; J1170

== ENCOUNTER 2023-05-10 18:43 | Emergency (ER) | payer BC, OTHER ==
[2023-05-10 18:55] VITALS: TEMP 99.4
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
[2023-05-10] MEDS ORDERED: SODIUM CHLORIDE 0.9% 1,000 ML IV STA (20:41)
[2023-05-10 21:06] LABS: Color,Urine YELLOW
[2023-05-10 21:07] LABS: Appearance,Urine Clear (Clear); Bilirubin,Urine Negative (Negative); Blood,Urine Negative (Negative); Glucose,Urine (UA) Negative (Negative); Ketones,Urine Negative (Negative); PH, Urine 7.5 (5.0-8.0); Protein,Urine Negative (Negative); Specific Gravity,Urine 1.015 (1.001-1.035)
[2023-05-10 21:08] LABS: Leukocyte Esterase,Urine Negative (Negative); Nitrite,Urine Negative (Negative); Urobilinogen,Urine <2.0 mg/dL (<2.0)
[2023-05-10] MEDS ORDERED: HYDROmorphone 0.5 MG/0.5 ML SYRINGE IVP STA (22:56)
[2023-05-10] MEDS ORDERED: ONDANSETRON 4 MG/2 ML VIAL IVP STA (22:56)
[2023-05-11 00:04] LABS: HCT 38.7 % (34.0-46.0); HGB 12.1 gm/dL (11.4-16.0); Hypochromasia Moderate; MCH 29.7 pg (25.0-35.0); MCHC 31.4 g/dL (31.0-37.0); MCV 94.6 fL (80.0-100.0); Mean Platelet Volume 7.9; Platelet Count 330 k/uL (150-450); RBC 4.09 m/uL (3.80-5.40)
[2023-05-11 01:09] LABS: Eosinophils # (M) 0.09 k/uL (0-0.7); Lymphocytes # (M) 2.52 k/uL (1.0-4.8); Monocytes # (M) 0.63 k/uL (0-1.0); Neutrophils # (M) 5.76 k/uL (1.3-7.7); Neutrophils % (M) 64 %; Nucleated Red Blood Cells 0 /100 WBC (0-0); Total Cells Counted 100
--- NOTE | 2023-05-11 01:26 | CT ---
EXAM: CT Abdomen and Pelvis Without Intravenous Contrast CLINICAL HISTORY: Abd pain vomiting TECHNIQUE: Axial computed tomography images of the abdomen and pelvis without intravenous contrast. CTDI is 27.8 mGy and DLP is 1648 mGy-cm. This CT exam was performed using one or more of the following dose reduction techniques: automated exposure control, adjustment of the mA and/or kV according to patient size, and/or use of iterative reconstruction technique. COMPARISON: 06/03/2022. FINDINGS: Lung bases: Unremarkable. No mass. No consolidation. ABDOMEN: Liver: Unremarkable. Gallbladder and bile ducts: Post cholecystectomy. No ductal dilation. Pancreas: Unremarkable. No ductal dilation. Spleen: Unremarkable. No splenomegaly. Adrenals: Unremarkable. No mass. Kidneys and ureters: No obstructive uropathy. Punctate nonobstructing left renal calcification, unchanged. No obstructing renal or ureteral calculus. Stomach and bowel: Status post gastric bypass. No obstruction or ileus. Abundant stool throughout the colon. No evidence for diverticulitis. PELVIS: Appendix: No findings to suggest acute appendicitis. Bladder: Unremarkable. No stones. Reproductive: Unremarkable as visualized. ABDOMEN and PELVIS: Intraperitoneal space: No free air. No free fluid. Bones/joints: No acute fracture. Soft tissues: Unremarkable. Vasculature: Unremarkable. No abdominal aortic aneurysm. Lymph nodes: Unremarkable. No enlarged lymph nodes. IMPRESSION: Postsurgical changes of the stomach and small bowel compatible gastric bypass. No bowel obstruction or ileus. Otherwise no change from 06/03/2022.
[2023-05-11] MEDS ORDERED: ACETAMINOPHEN TAB 500 MG TAB PO STA (01:34)
[2023-05-11 02:10] VITALS: BP 135/87; PULSE 83; RESP 20
== END 2023-05-11 02:05 | disposition home or self-care (01) ==
LOC: EC 18:43
DX: R10.9 Unspecified abdominal pain (principal); K21.9 Gastro-esophageal reflux disease without esophagitis; F41.9 Anxiety disorder, unspecified; Z79.899 Other long term (current) drug therapy; Z90.89 Acquired absence of other organs; Z88.8 Allergy status to other drugs, medicaments and biological substances; Z88.5 Allergy status to narcotic agent; Z88.6 Allergy status to analgesic agent
CPT/HCPCS: 36415; 85025; 81003; 74176; 99284; 96374; 96375; J2405; J1170; 80053; 82150; 83690

== ENCOUNTER 2023-06-10 11:15 | Day surgery (SDC) | payer BC, OTHER ==
[2023-06-04 15:14] VITALS: BMI 46.4
[~2023-06-10 11:15] MED LIST changes: +LIDOCAINE 1% (10MG/ML) FOR IV START INTRADERMA PRN
[2023-06-10 11:58] VITALS: TEMP 98
[2023-06-10] MEDS ORDERED: LIDOCAINE 1% INJ 10MG/ML (20 ML MDV) ONE (13:04)
[2023-06-10] MEDS ORDERED: PROPOFOL 10 MG/ML 20 ML VIAL IV ONE (13:04)
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
--- NOTE | 2023-06-10 13:12 | P.OP ---
Date of Procedure: 06/10/23 Preoperative Diagnosis: GERD Dysphagia Postoperative Diagnosis: Mild esophagitis Procedure(s) Performed: EGD Anesthesia: MAC Surgeon: Cali Jha Pathology: other (Esophagus) Condition: stable Disposition: PACU Description of Procedure: Patient's placed on the endoscopy table in the lateral position. She received IV sedation. The gastroscope placed oropharynx passed in the esophagus. Patient previous Patrick-en-Y gastric bypass. The gastrectomy loss was just below the GE junction. There was no obstruction of the Patrick limb. Scope withdrawn. The gastro-jejunal anastomosis visualized. There is no inflation. There is no evidence of obstruction. The distal esophagus was examined. A biopsies performed. There is minimal inflammatory changes in the esophagus. The scope was withdrawn for patient.
[2023-06-10] MEDS ORDERED: fentaNYL (PF) 50 MCG/ML 2 ML AMP IVP ONE (13:25)
[2023-06-10] MEDS ORDERED: fentaNYL (PF) 50 MCG/ML 2 ML AMP ONE (13:25)
[2023-06-10 13:59] VITALS: BP 125/82; PULSE 70; RESP 20
== END 2023-06-10 14:05 | disposition home or self-care (01) ==
LOC: ORWHC2ENDO 11:15
PROVIDERS: ATTEND Surgery
DX: K21.00 Gastro-esophageal reflux disease with esophagitis, without bleeding (principal); M19.90 Unspecified osteoarthritis, unspecified site; G40.909 Epilepsy, unspecified, not intractable, without status epilepticus; Z98.84 Bariatric surgery status; Z90.49 Acquired absence of other specified parts of digestive tract; E66.01 Morbid (severe) obesity due to excess calories; Z68.42 Body mass index [BMI] 45.0-49.9, adult; Z82.49 Family history of ischemic heart disease and other diseases of the circulatory system; Z79.890 Hormone replacement therapy; Z88.6 Allergy status to analgesic agent
CPT/HCPCS: 43239; J2001; J3010; J2704; 88305

== ENCOUNTER 2023-06-23 09:03 | Emergency (ER) | payer BC, OTHER ==
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
--- NOTE | 2023-06-23 10:46 | US ---
EXAMINATION TYPE: US venous doppler duplex LE RT DATE OF EXAM: 06/23/2023 9:52 AM COMPARISON: NONE CLINICAL INDICATION: Female, 33 years old with history of Right leg pain; Right leg pain for 2 weeks, worse at rest SIDE PERFORMED: Right TECHNIQUE: The lower extremity deep venous system is examined utilizing real time linear array sonog amna with graded compression, doppler sonography and color-flow sonography. VESSELS IMAGED: Common Femoral Vein Deep Femoral Vein Greater Saphenous Vein * Femoral Vein Popliteal Vein Small Saphenous Vein * Proximal Calf Veins (* superficial vessels) Right Leg: No evidence of DVT IMPRESSION: Grayscale, color doppler, spectral doppler imaging performed of the deep veins of the lo wer extremities. There is normal flow, compressibility, vascular waveforms.
[2023-06-23 12:08] VITALS: BP 132/90
[2023-06-23] MEDS ORDERED: HYDROmorphone 1 MG/ML 1 ML SYRINGE IM STA (12:09)
[2023-06-23 12:33] VITALS: PULSE 80; RESP 20; TEMP 98.2
== END 2023-06-23 12:21 | disposition home or self-care (01) ==
LOC: EC 09:03
DX: M79.604 Pain in right leg (principal); G47.00 Insomnia, unspecified; K21.9 Gastro-esophageal reflux disease without esophagitis; M19.90 Unspecified osteoarthritis, unspecified site; F41.9 Anxiety disorder, unspecified; Z79.899 Other long term (current) drug therapy; Z79.1 Long term (current) use of non-steroidal anti-inflammatories (NSAID); Z88.6 Allergy status to analgesic agent; Z88.8 Allergy status to other drugs, medicaments and biological substances
CPT/HCPCS: 93971; 99283; 96372; J1170

== ENCOUNTER 2023-06-24 15:31 | Emergency (ER) | payer BC, OTHER ==
[2023-06-24 15:42] VITALS: RESP 18; TEMP 97
[2023-06-24] MEDS ORDERED: SODIUM CHLORIDE 0.9% 500 ML 500 ML IV STA (16:57)
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
[2023-06-24 17:13] LABS: Basophils % (A) 0 %; Eosinophils # (A) 0.4 k/uL (0-0.7); Eosinophils % (A) 4 %; HCT 41.8 % (34.0-46.0); HGB 13.1 gm/dL (11.4-16.0); Hypochromasia Moderate; Lymphocytes # (A) 1.8 k/uL (1.0-4.8); Lymphocytes % (A) 22 %; MCH 29.1 pg (25.0-35.0); MCHC 31.3 g/dL (31.0-37.0); MCV 92.8 fL (80.0-100.0); Mean Platelet Volume 7.6; Monocytes # (A) 0.3 k/uL (0-1.0); Monocytes % (A) 3 %; Neutrophils # (A) 5.7 k/uL (1.3-7.7); Neutrophils % (A) 69 %; Platelet Count 330 k/uL (150-450); RDW 14.4 % (11.5-15.5); WBC 8.3 k/uL (3.8-10.6)
[2023-06-24 17:56] LABS: ALT 43 U/L (4-34); AST 41 U/L (14-36); Acetaminophen <10.0 ug/mL; African American GFR (CKD) >90 (>60 ml/min/1.73 sqM); Albumin 4.2 g/dL (3.5-5.0); Alkaline Phosphatase 117 U/L (38-126); Anion Gap 15 mmol/L; Blood Urea Nitrogen 10 mg/dL (7-17); Carbamazepine (Tegretol) <3.0 ug/mL; Carbon Dioxide 17 mmol/L (22-30); Chloride 107 mmol/L (98-107); Glucose 111 mg/dL (74-99); Lithium 0.7 mmol/L; Magnesium 2.4 mg/dL (1.6-2.3); Non-African American GFR(CKD) >90 (>60 ml/min/1.73 sqM); Phenytoin (Dilantin) <3.0 ug/mL; Potassium 4.9 mmol/L (3.5-5.1); Salicylate <1.0 mg/dL; Sodium 139 mmol/L (137-145); Total Bilirubin 0.4 mg/dL (0.2-1.3); Total Protein 6.8 g/dL (6.3-8.2)
[2023-06-24 17:58] LABS: Valproic Acid (Depakene) <10.0 ug/mL
[2023-06-24] MEDS ORDERED: PROCHLORPERAZINE INJ 10 MG/2 ML VIAL IVP STA (18:19)
[2023-06-24] MEDS ORDERED: diphenhydrAMINE 50 MG/ML 1 ML VIAL IVP STA (18:19)
[2023-06-24] MEDS ORDERED: HYDROmorphone 1 MG/ML 1 ML SYRINGE IVP STA (18:19)
[2023-06-24 19:51] VITALS: BP 126/87; PULSE 93
== END 2023-06-24 19:29 | disposition home or self-care (01) ==
LOC: EC 15:31
DX: G40.419 Other generalized epilepsy and epileptic syndromes, intractable, without status epilepticus (principal); K21.9 Gastro-esophageal reflux disease without esophagitis; M19.90 Unspecified osteoarthritis, unspecified site; F41.9 Anxiety disorder, unspecified; Z79.899 Other long term (current) drug therapy; Z88.6 Allergy status to analgesic agent; Z88.8 Allergy status to other drugs, medicaments and biological substances; Z88.5 Allergy status to narcotic agent
CPT/HCPCS: 36415; 93005; 80156; 80164; 80053; 80185; 80178; 83735; 85025; 80143; 80179; 99285; 96374; 96375 ×2; J1200; J0780; J1170

== ENCOUNTER 2023-07-02 16:42 | Emergency (ER) | payer BC, OTHER ==
[2023-07-02 17:42] VITALS: BP 134/82; PULSE 108; RESP 18; TEMP 98
[2023-07-02] MEDS ORDERED: ONDANSETRON 4 MG/2 ML VIAL IVP STA (19:03)
[2023-07-02] MEDS ORDERED: SODIUM CHLORIDE 0.9% 1,000 ML IV STA (19:03)
[2023-07-02] MEDS ORDERED: HYDROmorphone 1 MG/ML 1 ML SYRINGE IVP STA (19:04)
--- NOTE | 2023-07-02 19:42 | CT ---
EXAMINATION TYPE: CT abdomen pelvis wo con CT DLP: 1642.2 mGycm, Automated exposure control for dose reduction was used. DATE OF EXAM: 07/02/2023 7:16 PM COMPARISON: 05/10/2023. CLINICAL INDICATION:Female, 33 years old with history of abdominal pain; abdominal pain TECHNIQUE: Axial CT of the CT abdomen pelvis wo con;Sagittal and coronal reformats were created on a separate workstation. Contrast used: None, (none if empty) Oral contrast used: without Oral Contrast (none if empty) FINDINGS: LOWER CHEST: Postsurgical changes to the bilateral breasts with collections present. On the right me asuring 10.1 x 3.0 cm and on the left measuring up to 10.0 x 3.1 cm. ABDOMEN LIVER: Unremarkable GALLBLADDER AND BILE DUCTS: The gallbladder surgically absent. PANCREAS: Unremarkable. SPLEEN: Unremarkable. ADRENAL GLANDS: Unremarkable. KIDNEYS AND URETERS: Left nonobstructing 4 mm calculus. No right renal calculi. No hydronephrosis. PELVIS BLADDER: Unremarkable REPRODUCTIVE: Unremarkable. ABDOMEN & PELVIS STOMACH AND BOWEL: No evidence of bowel obstruction. Postsurgical changes of gastric lumen. Postsurgi jose changes of left abdomen small bowel sutures identified. PERITONEUM/RETROPERITONEUM: No evidence of pneumoperitoneum or free fluid. VASCULATURE: No evidence of aortic aneurysm. MUSCULOSKELETAL: No acute osseous abnormalities LYMPH NODES: No gross evidence for lymphadenopathy. SOFT TISSUE/ABDOMINAL WALL: Fat-containing umbilical hernia. IMPRESSION: 1. No evidence for acute abdominal process. Postsurgical changes to the gastric lumen and left abdom inal small bowel. 2. Nonobstructing left renal calculus. 3. Bilateral breasts suspected seromas. Correlate with history of breast surgery.
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
[2023-07-02] MEDS ORDERED: LIDOCAINE 4% PATCH TOPICAL ONE (21:31)
== END 2023-07-02 22:08 | disposition home or self-care (01) ==
LOC: EC 16:42
DX: G40.909 Epilepsy, unspecified, not intractable, without status epilepticus (principal); R10.9 Unspecified abdominal pain; R55 Syncope and collapse; K21.9 Gastro-esophageal reflux disease without esophagitis; F41.9 Anxiety disorder, unspecified; M19.90 Unspecified osteoarthritis, unspecified site; Z79.899 Other long term (current) drug therapy; Z88.6 Allergy status to analgesic agent; Z88.5 Allergy status to narcotic agent; Z88.8 Allergy status to other drugs, medicaments and biological substances
CPT/HCPCS: 74176; 99284; 96374; 96375; J2405; J1170

== ENCOUNTER → 2023-07-04 | Outpatient (CLI) | payer BC, OTHER ==
--- NOTE | 2023-07-04 11:54 | US ---
EXAMINATION TYPE: US extremity nonvasc complete RT, MSK right ankle DATE OF EXAM: 07/04/2023 Comparison: Correlation radiograph dated 312 Clinical History: 33-year-old female [id number] POSTERIOR TIBIAL TENDON Findings: Posterior ankle: The Achilles tendon is intact and within normal contour and fibrillar pattern. There is nonspecific trace fluid in the retrocalcaneal bursa at its insertion. Anterior ankle: No anterior tibiotalar joint effusion is seen. The anterior extensor tendons appear u nremarkable. No tenosynovial fluid. Medial ankle for assessment of the posterior tibial tendon: There is mild to moderate tenosynovial fl uid seen along the length of the tendon but no underlying tear is identified. Lateral ankle: There is trace tenosynovial fluid along the inframalleolar peroneus brevis. Both peron eal longus and peroneus brevis tendons appear intact. Impression: 1. Note that the ligamentous structures were not evaluated as this would require scanning at a [facility] which routinely performs MSK ultrasound. 2. Achilles tendon is normal and intact. 3. There is mild to moderate tenosynovitis along the posterior tibial tendon. The tendon itself appea rs intact. 4. Trace tenosynovial fluid along the inframalleolar peroneal brevis. The peroneal tendons are otherw ise intact.
== END | disposition home or self-care (01) ==
LOC: RADUSWWP 10:00
PROVIDERS: ATTEND Podiatrist Foot & Ankle Surgery
DX: M76.821 Posterior tibial tendinitis, right leg (principal); M65.9 Synovitis and tenosynovitis, unspecified

== ENCOUNTER 2023-07-10 21:47 | Emergency (ER) | payer BC, OTHER ==
[2023-07-10] MEDS ORDERED: SODIUM CHLORIDE 0.9% 1,000 ML IV STA (22:27)
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
[2023-07-10 23:16] LABS: Basophils % (A) 0 %; Eosinophils % (A) 0 %; HCT 38.8 % (34.0-46.0); HGB 12.5 gm/dL (11.4-16.0); Hypochromasia Slight; Lymphocytes # (A) 0.7 k/uL (1.0-4.8); Lymphocytes % (A) 7 %; MCHC 32.1 g/dL (31.0-37.0); MCV 90.4 fL (80.0-100.0); Mean Platelet Volume 7.4; Monocytes # (A) 0.3 k/uL (0-1.0); Monocytes % (A) 3 %; Neutrophils # (A) 9.4 k/uL (1.3-7.7); Neutrophils % (A) 89 %; Platelet Count 322 k/uL (150-450); RBC 4.29 m/uL (3.80-5.40); RDW 14.8 % (11.5-15.5); WBC 10.6 k/uL (3.8-10.6)
[2023-07-10 23:17] LABS: Appearance,Urine Clear (Clear); Bilirubin,Urine Negative (Negative); Blood,Urine Negative (Negative); Color,Urine Colorless; Glucose,Urine (UA) 2+ (Negative); Ketones,Urine Negative (Negative); Leukocyte Esterase,Urine Negative (Negative); Nitrite,Urine Negative (Negative); PH, Urine 6.5 (5.0-8.0); Protein,Urine Negative (Negative); Specific Gravity,Urine 1.005 (1.001-1.035); Urobilinogen,Urine <2.0 mg/dL (<2.0)
[2023-07-10 23:25] LABS: ALT 37 U/L (4-34); AST 30 U/L (14-36); African American GFR (CKD) >90 (>60 ml/min/1.73 sqM); Albumin 3.9 g/dL (3.5-5.0); Alkaline Phosphatase 114 U/L (38-126); Anion Gap 10 mmol/L; Blood Urea Nitrogen 9 mg/dL (7-17); Calcium 9.2 mg/dL (8.4-10.2); Carbon Dioxide 17 mmol/L (22-30); Chloride 112 mmol/L (98-107); Glucose 119 mg/dL (74-99); Magnesium 2.3 mg/dL (1.6-2.3); Non-African American GFR(CKD) >90 (>60 ml/min/1.73 sqM); Potassium 4.3 mmol/L (3.5-5.1); Sodium 139 mmol/L (137-145); Total Bilirubin 0.3 mg/dL (0.2-1.3); Total Protein 6.4 g/dL (6.3-8.2)
[2023-07-10 23:27] LABS: INR 0.9 (<1.2); Prothrombin Time 10.5 sec (10.0-12.5)
[2023-07-10 23:29] LABS: Amphetamine Screen,Urine Not Detected (NotDetected); Barbiturate Screen,Urine Detected (NotDetected); Benzodiazepines Screen,Urine Detected (NotDetected); Cocaine Screen,Urine Not Detected (NotDetected); Methadone Screen, Urine Not Detected (NotDetected); Opiate Screen,Urine Not Detected (NotDetected); Oxycodone Screen, Urine Not Detected (NotDetected); Phencyclidine Screen,Urine Not Detected (NotDetected); Tricyclic Antidepressant,Urine Detected (NotDetected); Urn Cannabinoid Scrn Not Detected (NotDetected)
--- NOTE | 2023-07-10 23:39 | XR ---
EXAM: XR Chest, 2 Views CLINICAL HISTORY: ITS.REASON XR Reason: dysrhythmia TECHNIQUE: Frontal and lateral views of the chest. COMPARISON: No relevant prior studies available. FINDINGS: Lungs: Unremarkable. No consolidation. Pleural space: Unremarkable. No pneumothorax. Heart: Unremarkable. No cardiomegaly. Mediastinum: Unremarkable. Normal mediastinal contour. Bones/joints: Unremarkable. No acute fracture. Generator device and lead in the left neck soft-tissues. IMPRESSION: No focal infiltrate.
[2023-07-11] MEDS ORDERED: TEMAZEPAM 7.5 MG CAP PO STA (00:10)
[2023-07-11] MEDS ORDERED: LIDOCAINE 4% PATCH TOPICAL ONE (00:15)
[2023-07-11] MEDS ORDERED: diphenhydrAMINE 50 MG/ML 1 ML VIAL IVP STA ×2 (00:16→03:53)
[2023-07-11] MEDS ORDERED: HYDROmorphone 1 MG/ML 1 ML SYRINGE IVP STA ×3 (00:16→03:08)
[2023-07-11 01:32] VITALS: BP 138/95; PULSE 89; RESP 18; TEMP 98
[2023-07-11] MEDS ORDERED: ORPHENADRINE 30 MG/ML 2 ML VIAL IVP STA (03:53)
== END 2023-07-11 04:33 | disposition home or self-care (01) ==
LOC: EC 21:47
DX: R00.0 Tachycardia, unspecified (principal); R00.2 Palpitations; M54.6 Pain in thoracic spine; K21.9 Gastro-esophageal reflux disease without esophagitis; G40.909 Epilepsy, unspecified, not intractable, without status epilepticus; F41.9 Anxiety disorder, unspecified; Z20.822 Contact with and (suspected) exposure to COVID-19; Z79.899 Other long term (current) drug therapy; Z88.6 Allergy status to analgesic agent; Z88.5 Allergy status to narcotic agent; Z88.8 Allergy status to other drugs, medicaments and biological substances
CPT/HCPCS: 36415; 93005; 85379; 80053; 83735; 84484; 85025; 85610; 81003; 81025; 80306; 87636; 71046; 99285; 96374; 96375 ×2; 96376 ×2; 96361; J1200; J2360; J1170

== ENCOUNTER 2023-07-15 13:42 | Emergency (ER) | payer BC, OTHER ==
[2023-07-15] MEDS ORDERED: SODIUM CHLORIDE 0.9% 1,000 ML IV STA (14:00)
[2023-07-15] MEDS ORDERED: IOPAMIDOL CONTRAST (ORAL USE) VIAL PO PRN (14:00)
[2023-07-15] MEDS ORDERED: PANTOPRAZOLE 40 MG/10 ML VIAL IVP STA (14:00)
[2023-07-15] MEDS ORDERED: ONDANSETRON 4 MG/2 ML VIAL IVP STA (14:00)
[2023-07-15] MEDS ORDERED: HYDROmorphone 1 MG/ML 1 ML SYRINGE IVP STA (14:01)
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
[2023-07-15 14:13] VITALS: RESP 18
[2023-07-15 14:42] LABS: Basophils % (A) 0 %; Eosinophils # (A) 0.3 k/uL (0-0.7); Eosinophils % (A) 4 %; HCT 38.9 % (34.0-46.0); HGB 12.2 gm/dL (11.4-16.0); Hypochromasia Slight; Lymphocytes # (A) 1.8 k/uL (1.0-4.8); Lymphocytes % (A) 25 %; MCH 28.7 pg (25.0-35.0); MCHC 31.3 g/dL (31.0-37.0); MCV 91.6 fL (80.0-100.0); Mean Platelet Volume 7.2; Monocytes # (A) 0.3 k/uL (0-1.0); Monocytes % (A) 4 %; Neutrophils # (A) 4.8 k/uL (1.3-7.7); Neutrophils % (A) 64 %; Platelet Count 382 k/uL (150-450); RBC 4.25 m/uL (3.80-5.40); RDW 14.8 % (11.5-15.5); WBC 7.4 k/uL (3.8-10.6)
[2023-07-15 14:58] LABS: ALT 33 U/L (4-34); AST 27 U/L (14-36); African American GFR (CKD) >90 (>60 ml/min/1.73 sqM); Albumin 3.7 g/dL (3.5-5.0); Alkaline Phosphatase 136 U/L (38-126); Amylase 53 U/L (30-110); Anion Gap 11 mmol/L; Blood Urea Nitrogen 11 mg/dL (7-17); Calcium 8.6 mg/dL (8.4-10.2); Carbon Dioxide 19 mmol/L (22-30); Chloride 109 mmol/L (98-107); Glucose 105 mg/dL (74-99); Lipase 105 U/L (23-300); Non-African American GFR(CKD) >90 (>60 ml/min/1.73 sqM); Potassium 4.2 mmol/L (3.5-5.1); Sodium 139 mmol/L (137-145); Total Bilirubin 0.4 mg/dL (0.2-1.3); Total Protein 6.2 g/dL (6.3-8.2)
[2023-07-15 15:06] LABS: INR 0.9 (<1.2); Partial Thromboplastin Time 23.5 sec (22.0-30.0); Prothrombin Time 10.3 sec (10.0-12.5)
--- NOTE | 2023-07-15 15:42 | CT ---
EXAMINATION TYPE: CT abdomen pelvis w con CT DLP: 2254.8 mGycm, Automated exposure control for dose reduction was used. DATE OF EXAM: 07/15/2023 3:31 PM COMPARISON: CT abdomen pelvis most recent from 07/02/2023. CLINICAL INDICATION:Female, 33 years old with history of Bariatric protocol, abdominal; unable to hol d food down, nausea and vomiting x 4 days TECHNIQUE: Axial CT abdomen pelvis w con;Sagittal and coronal reformats were created on a separate w orkstation. Contrast used:100 ml mL of Isovue 300 with IV Contrast, (none if empty) Oral contrast used: with Oral Contrast (none if empty) FINDINGS: LOWER CHEST: Bilateral breast fluid collections. ABDOMEN LIVER: Unremarkable GALLBLADDER AND BILE DUCTS: . The gallbladder surgically absent. PANCREAS: Unremarkable. SPLEEN: Unremarkable. ADRENAL GLANDS: Unremarkable. KIDNEYS AND URETERS: No evidence for hydronephrosis. No obstructing left 4 mm thickness. No right alena al calculi. PELVIS BLADDER: Unremarkable REPRODUCTIVE: The uterus is surgically absent. There is ABDOMEN & PELVIS STOMACH AND BOWEL: Postsurgical changes to the stomach and small bowel. No evidence of bowel obstruct ion. PERITONEUM/RETROPERITONEUM: No evidence of pneumoperitoneum or free fluid. VASCULATURE: No evidence of aortic aneurysm. MUSCULOSKELETAL: No acute osseous abnormalities LYMPH NODES: No gross evidence for lymphadenopathy. SOFT TISSUE/ABDOMINAL WALL: Unremarkable IMPRESSION: Postsurgical changes to the stomach and small bowel. No evidence for obstruction. No definitive acute abdominal process.
[2023-07-15] MEDS ORDERED: diphenhydrAMINE 50 MG/ML 1 ML VIAL IVP STA (15:51)
[2023-07-15] MEDS ORDERED: CYCLOBENZAPRINE 10 MG TAB PO STA (15:52)
[2023-07-15] MEDS ORDERED: FAMOTIDINE 20 MG/2 ML VIAL IV STA (16:07)
[2023-07-15 16:15] VITALS: BP 138/87; PULSE 98; TEMP 97.5
== END 2023-07-15 16:20 | disposition home or self-care (01) ==
LOC: EC 13:42
DX: R10.11 Right upper quadrant pain (principal); F41.9 Anxiety disorder, unspecified; K21.9 Gastro-esophageal reflux disease without esophagitis; M19.90 Unspecified osteoarthritis, unspecified site; Z79.899 Other long term (current) drug therapy; Z88.5 Allergy status to narcotic agent; Z88.6 Allergy status to analgesic agent; Z88.8 Allergy status to other drugs, medicaments and biological substances; Z90.49 Acquired absence of other specified parts of digestive tract
CPT/HCPCS: 36415; 80053; 82150; 83690; 85025; 85610; 85730; 74177; 99284; 96374; 96375 ×4; 96361; J1200; J2405; J3490; J1170; C9113; Q9967

== ENCOUNTER 2023-08-10 22:17 | Emergency (ER) | payer BC, OTHER ==
[2023-08-10 22:25] VITALS: RESP 18; TEMP 98.2
[2023-08-10] MEDS: SODIUM CHLORIDE 0.9% 1,000 ML IV ONE (22:45)
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
[2023-08-10 23:06] LABS: Basophils % (A) 0 %; Eosinophils # (A) 0.3 k/uL (0-0.7); Eosinophils % (A) 4 %; HCT 37.8 % (34.0-46.0); HGB 11.8 gm/dL (11.4-16.0); Hypochromasia Moderate; Lymphocytes % (A) 26 %; MCH 29.3 pg (25.0-35.0); MCHC 31.1 g/dL (31.0-37.0); MCV 94.2 fL (80.0-100.0); Mean Platelet Volume 7.5; Monocytes # (A) 0.3 k/uL (0-1.0); Monocytes % (A) 4 %; Neutrophils # (A) 4.7 k/uL (1.3-7.7); Neutrophils % (A) 63 %; Platelet Count 294 k/uL (150-450); RBC 4.01 m/uL (3.80-5.40); RDW 14.8 % (11.5-15.5); WBC 7.6 k/uL (3.8-10.6)
[2023-08-10 23:24] LABS: ALT 33 U/L (4-34); AST 28 U/L (14-36); African American GFR (CKD) >90 (>60 ml/min/1.73 sqM); Albumin 3.5 g/dL (3.5-5.0); Alkaline Phosphatase 135 U/L (38-126); Anion Gap 6 mmol/L; Blood Urea Nitrogen 10 mg/dL (7-17); Calcium 8.4 mg/dL (8.4-10.2); Carbon Dioxide 23 mmol/L (22-30); Chloride 108 mmol/L (98-107); Glucose 91 mg/dL (74-99); Magnesium 2.4 mg/dL (1.6-2.3); Non-African American GFR(CKD) >90 (>60 ml/min/1.73 sqM); Potassium 4.5 mmol/L (3.5-5.1); Sodium 137 mmol/L (137-145); Total Bilirubin 0.2 mg/dL (0.2-1.3); Total Protein 6.1 g/dL (6.3-8.2)
[2023-08-11 00:43] VITALS: BP 122/79; PULSE 90
== END 2023-08-11 00:21 | disposition home or self-care (01) ==
LOC: EC 22:17
DX: G40.409 Other generalized epilepsy and epileptic syndromes, not intractable, without status epilepticus (principal); S01.512A Laceration without foreign body of oral cavity, initial encounter; R00.0 Tachycardia, unspecified; K21.9 Gastro-esophageal reflux disease without esophagitis; F41.9 Anxiety disorder, unspecified; Z79.899 Other long term (current) drug therapy; Z88.6 Allergy status to analgesic agent; Z88.5 Allergy status to narcotic agent; Z88.8 Allergy status to other drugs, medicaments and biological substances; X58.XXXA Exposure to other specified factors, initial encounter
CPT/HCPCS: 99284; 96374; 36415; 93005; 80053; 83605; 83735; 85025; J3360

== ENCOUNTER 2023-08-15 16:19 | Emergency (ER) | payer BC ==
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
[2023-08-15] MEDS: diazePAM 5 MG TAB PO STA (18:09)
[2023-08-15] MEDS: LIDOCAINE 4% PATCH TOPICAL ONE (18:42)
[2023-08-15 19:11] VITALS: BP 147/94; PULSE 79; RESP 18; TEMP 98.7
== END 2023-08-15 19:04 | disposition home or self-care (01) ==
LOC: EC 16:19
DX: G40.409 Other generalized epilepsy and epileptic syndromes, not intractable, without status epilepticus (principal); K21.9 Gastro-esophageal reflux disease without esophagitis; M19.90 Unspecified osteoarthritis, unspecified site; F41.9 Anxiety disorder, unspecified; Z79.899 Other long term (current) drug therapy; Z88.5 Allergy status to narcotic agent; Z88.6 Allergy status to analgesic agent; Z88.8 Allergy status to other drugs, medicaments and biological substances; Z90.49 Acquired absence of other specified parts of digestive tract
CPT/HCPCS: 99284

== ENCOUNTER 2023-08-22 05:59 | Emergency (ER) | payer BC, OTHER ==
[2023-08-22 07:18] VITALS: TEMP 97.6
[2023-08-22] MEDS: SODIUM CHLORIDE 0.9% 1,000 ML IV STA (07:44)
[2023-08-22 07:59] LABS: ALT 126 U/L (4-34); AST 72 U/L (14-36); African American GFR (CKD) >90 (>60 ml/min/1.73 sqM); Albumin 4.3 g/dL (3.5-5.0); Alkaline Phosphatase 144 U/L (38-126); Anion Gap 10 mmol/L; Blood Urea Nitrogen 11 mg/dL (7-17); Calcium 9.3 mg/dL (8.4-10.2); Carbon Dioxide 22 mmol/L (22-30); Chloride 110 mmol/L (98-107); Glucose 91 mg/dL (74-99); Lipase 346 U/L (23-300); Non-African American GFR(CKD) >90 (>60 ml/min/1.73 sqM); Sodium 142 mmol/L (137-145); Total Bilirubin 0.5 mg/dL (0.2-1.3); Total Protein 7.2 g/dL (6.3-8.2)
--- NOTE | 2023-08-22 08:04 | XR ---
EXAMINATION TYPE: XR KUB DATE OF EXAM: 08/22/2023 7:59 AM CLINICAL INDICATION:Female, 33 years old with history of abdominal pain; [facility] COMPARISON: 09/02/2022.. TECHNIQUE: One radiographic view of the abdomen was obtained. FINDINGS: The bowel gas pattern is nonspecific without dilated loops of small or large bowel. There i s no evidence for organomegaly or pneumoperitoneum. The osseous structures are intact. No abnormal calcifications are present. Fecal material and gas are demonstrated throughout the colon and rectum. Right upper quadrant cholecystectomy clips. IMPRESSION: Nonspecific bowel gas pattern without radiographic evidence for acute process.
[2023-08-22 08:09] LABS: Potassium 4.6 mmol/L (3.5-5.1)
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
[2023-08-22] MEDS: HYDROmorphone 0.5 MG/0.5 ML SYRINGE IVP STA (08:42)
[2023-08-22] MEDS: METOCLOPRAMIDE 5 MG/ML 2 ML VIAL IVP STA (08:43)
[2023-08-22] MEDS: diphenhydrAMINE 50 MG/ML 1 ML VIAL IVP STA (08:43)
[2023-08-22 09:02] LABS: Appearance,Urine Cloudy (Clear); Bacteria,Urine Rare /hpf; Bilirubin,Urine Negative (Negative); Blood,Urine Negative (Negative); Color,Urine Yellow; Glucose,Urine (UA) Negative (Negative); Ketones,Urine Negative (Negative); Leukocyte Esterase,Urine Negative (Negative); Mucus,Urine Few /hpf; Nitrite,Urine Negative (Negative); Protein,Urine Trace (Negative); RBC,Urine <1 /hpf (0-5); Specific Gravity,Urine 1.019 (1.001-1.035); Squamous Epithelial Cell,Urine 3 /hpf (0-4); Triple Phosphate Crystal,Urine Occasional /hpf; Urobilinogen,Urine <2.0 mg/dL (<2.0); WBC,Urine 2 /hpf (0-5)
[2023-08-22 09:52] LABS: Basophils % (A) 0 %; Eosinophils # (A) 0.2 k/uL (0-0.7); Eosinophils % (A) 2 %; HCT 41.9 % (34.0-46.0); Hypochromasia Marked; Lymphocytes # (A) 2.2 k/uL (1.0-4.8); Lymphocytes % (A) 18 %; MCH 29.1 pg (25.0-35.0); Mean Platelet Volume 7.2; Monocytes # (A) 0.6 k/uL (0-1.0); Monocytes % (A) 5 %; Neutrophils # (A) 9.1 k/uL (1.3-7.7); Neutrophils % (A) 73 %; Platelet Count 414 k/uL (150-450); RBC 4.45 m/uL (3.80-5.40); RDW 14.5 % (11.5-15.5); WBC 12.4 k/uL (3.8-10.6)
[2023-08-22 09:54] LABS: Lithium 0.9 mmol/L
[2023-08-22] MEDS: MORPHINE SULFATE 2 MG/ML SYRINGE IVP ONE (10:42)
[2023-08-22 11:01] VITALS: BP 148/90; PULSE 68; RESP 16
== END 2023-08-22 10:49 | disposition home or self-care (01) ==
LOC: EC 05:59
DX: R10.9 Unspecified abdominal pain (principal); R74.01 Elevation of levels of liver transaminase levels; R74.8 Abnormal levels of other serum enzymes; K21.9 Gastro-esophageal reflux disease without esophagitis; M19.90 Unspecified osteoarthritis, unspecified site; G40.909 Epilepsy, unspecified, not intractable, without status epilepticus; F41.9 Anxiety disorder, unspecified; Z79.899 Other long term (current) drug therapy; Z88.5 Allergy status to narcotic agent; Z88.6 Allergy status to analgesic agent; Z88.8 Allergy status to other drugs, medicaments and biological substances; Z90.49 Acquired absence of other specified parts of digestive tract; Z98.84 Bariatric surgery status
CPT/HCPCS: 99284; 96374; 96375 ×4; 96361; 36415; 80053; 83690; 80178; 85025; 81001; 81025; 74018; J1200; J2765; J3360; J2270; J1170

== ENCOUNTER 2023-09-26 15:18 | Emergency (ER) | payer BC, OTHER ==
[2023-09-26 15:53] VITALS: RESP 18
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
--- NOTE | 2023-09-26 16:55 | XR ---
EXAMINATION TYPE: XR tibia fibula 2 views RT, XR foot limited 2 views RT DATE OF EXAM: 09/26/2023 COMPARISON: 03/14/2023 HISTORY: 33-year-old female reconstructive surgery to the foot on Saturday complaining of pain after fa ll FINDINGS: Tibia/fibula: Moderate generalized soft tissue swelling. No acute fracture is seen. Punctate densities below the la teral malleolus remain unchanged. Foot: Prominent soft tissue swelling is present throughout. There are osteotomies of the anterior and mid c alcaneus with lateral plate and screw fusion demonstrated. Mild degenerative change first MTP joint w ith bunion formation. No additional acute fracture is clearly identified on these 2 views. Moderate s ized plantar heel spur. IMPRESSION: 1. Tibia/fibula: Mild soft tissue swelling. No acute osseous body seen. 2. Foot: Recent unhealed osteotomies with internal fixation of the calcaneus. Diffuse soft tissue swe lling. Moderate-sized plantar heel spur. No acute fracture clearly seen.
[2023-09-26] MEDS: ACETAMINOPHEN TAB 325 MG TAB PO STA (17:31)
[2023-09-26] MEDS: MORPHINE SULFATE 4 MG/ML SYRINGE IM STA (17:32)
[2023-09-26] MEDS: HYDROmorphone 1 MG/ML 1 ML SYRINGE IM STA (18:41)
[2023-09-26 19:32] VITALS: BP 110/78; PULSE 92; TEMP 98
== END 2023-09-26 18:50 | disposition home or self-care (01) ==
LOC: EC 15:18
DX: G89.18 Other acute postprocedural pain (principal); M79.671 Pain in right foot; Z88.6 Allergy status to analgesic agent; Z88.5 Allergy status to narcotic agent; Z88.8 Allergy status to other drugs, medicaments and biological substances
CPT/HCPCS: 73590; 73620; 99284; 96372 ×2; J2270; J1170

== ENCOUNTER 2023-09-30 09:53 | Emergency (ER) | payer BC, OTHER ==
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
[2023-09-30] MEDS: HYDROmorphone 1 MG/ML 1 ML SYRINGE IM STA (10:18)
--- NOTE | 2023-09-30 11:07 | US ---
EXAMINATION TYPE: US venous doppler duplex LE RT DATE OF EXAM: 09/30/2023 10:50 AM COMPARISON: 07/04/2023 CLINICAL INDICATION: Female, 33 years old with history of pain; Pt states pain right leg s/p surgery to right lower tendons/ Pt has cast to right lower leg SIDE PERFORMED: Right TECHNIQUE: The lower extremity deep venous system is examined utilizing real time linear array sonog amna with graded compression, doppler sonography and color-flow sonography. VESSELS IMAGED: Common Femoral Vein Deep Femoral Vein Greater Saphenous Vein * Femoral Vein Popliteal Vein Small Saphenous Vein * Proximal Calf Veins (* superficial vessels) Right Leg: Negative for DVT IMPRESSION: Grayscale, color doppler, spectral doppler imaging performed of the deep veins of the lo wer extremities. There is normal flow, compressibility, vascular waveforms.
[2023-09-30] MEDS: HYDROcodone/APAP 10-325MG 1 EACH TAB PO ONE (11:27)
[2023-09-30 11:44] VITALS: BP 139/79; PULSE 82; RESP 16; TEMP 97.3
== END 2023-09-30 11:35 | disposition home or self-care (01) ==
LOC: EC 09:53
DX: M79.604 Pain in right leg (principal); Z88.6 Allergy status to analgesic agent; Z88.5 Allergy status to narcotic agent; Z88.8 Allergy status to other drugs, medicaments and biological substances
CPT/HCPCS: 93971; 99284; 96372; J1170

== ENCOUNTER 2023-10-01 10:16 | Emergency (ER) | payer BC ==
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
[2023-10-01] MEDS: MORPHINE SULFATE 2 MG/ML SYRINGE IM ONE (11:01)
[2023-10-01 11:56] VITALS: BP 122/78; PULSE 89; RESP 20; TEMP 98.2
== END 2023-10-01 11:42 | disposition home or self-care (01) ==
LOC: EC 10:16
DX: M25.571 Pain in right ankle and joints of right foot (principal); Z88.6 Allergy status to analgesic agent; Z88.5 Allergy status to narcotic agent; Z88.8 Allergy status to other drugs, medicaments and biological substances
CPT/HCPCS: 99283; 96372; J2270

== ENCOUNTER 2023-10-03 19:56 | Emergency (ER) | payer BC ==
[2023-10-03] MEDS: HYDROcodone/APAP 7.5-325MG 1 EACH TAB PO ONE (20:36)
[2023-10-03] MEDS: ONDANSETRON ODT 4 MG TAB PO STA (20:36)
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
--- NOTE | 2023-10-03 21:49 | XR ---
PROCEDURE: XR ankle complete RT - 3V DATE AND TIME: 10/03/2023 9:42 PM CLINICAL INDICATION: [facility]; fall, recent surgery TECHNIQUE: Department protocol COMPARISON: 09/26/2023 FINDINGS/IMPRESSION: 3 views were obtained. Orthopedic hardware is intact without periprosthesis lucencies. The current anatomic positioning and alignment of the calcaneus is documented.
[2023-10-03 22:14] VITALS: RESP 16
[2023-10-03] MEDS ORDERED: ACETAMINOPHEN TAB 325 MG TAB PO STA (22:37)
[2023-10-03 22:49] VITALS: BP 129/84; PULSE 77; TEMP 97.8
== END 2023-10-03 22:40 | disposition home or self-care (01) ==
LOC: EC 19:56
DX: G89.18 Other acute postprocedural pain (principal); M79.671 Pain in right foot; Z88.6 Allergy status to analgesic agent; Z88.8 Allergy status to other drugs, medicaments and biological substances; Z88.5 Allergy status to narcotic agent
CPT/HCPCS: 99284

== ENCOUNTER → 2023-10-03 | Outpatient (CLI) | payer BC | END | disposition home or self-care (01) | LOC: LABWHC1 07:30 | PROVIDERS: ATTEND Family Medicine | DX: M79.7 Fibromyalgia (principal); R79.89 Other specified abnormal findings of blood chemistry; E66.01 Morbid (severe) obesity due to excess calories | CPT/HCPCS: 36415; 82306; 82607; 82746 ==

== ENCOUNTER 2023-10-09 04:30 | Emergency (ER) | payer BC, OTHER ==
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
[2023-10-09 05:16] LABS: Basophils % (A) 0 %; Eosinophils # (A) 0.3 k/uL (0-0.7); Eosinophils % (A) 5 %; HCT 34.2 % (34.0-46.0); HGB 10.1 gm/dL (11.4-16.0); Hypochromasia Marked; Lymphocytes # (A) 1.4 k/uL (1.0-4.8); Lymphocytes % (A) 22 %; MCH 27.4 pg (25.0-35.0); MCHC 29.6 g/dL (31.0-37.0); MCV 92.8 fL (80.0-100.0); Mean Platelet Volume 7.5; Monocytes # (A) 0.3 k/uL (0-1.0); Monocytes % (A) 5 %; Neutrophils # (A) 4.4 k/uL (1.3-7.7); Neutrophils % (A) 65 %; Platelet Count 382 k/uL (150-450); RBC 3.69 m/uL (3.80-5.40); RDW 15.7 % (11.5-15.5); WBC 6.7 k/uL (3.8-10.6)
[2023-10-09 05:26] LABS: ALT 22 U/L (4-34); AST 26 U/L (14-36); African American GFR (CKD) >90 (>60 ml/min/1.73 sqM); Albumin 2.9 g/dL (3.5-5.0); Alkaline Phosphatase 125 U/L (38-126); Anion Gap 4 mmol/L; Blood Urea Nitrogen 11 mg/dL (7-17); Calcium 8.2 mg/dL (8.4-10.2); Carbon Dioxide 22 mmol/L (22-30); Chloride 113 mmol/L (98-107); Glucose 88 mg/dL (74-99); Magnesium 2.2 mg/dL (1.6-2.3); Non-African American GFR(CKD) >90 (>60 ml/min/1.73 sqM); Potassium 4.4 mmol/L (3.5-5.1); Sodium 139 mmol/L (137-145); Total Bilirubin 0.3 mg/dL (0.2-1.3); Total Protein 5.3 g/dL (6.3-8.2)
--- NOTE | 2023-10-09 07:24 | CT ---
EXAMINATION TYPE: CT brain monty wo con DATE OF EXAM: 10/09/2023 COMPARISON: None HISTORY: SEIZURE CT DLP: 1415.1 mGycm, Automated exposure control for dose reduction was used. CONTRAST: Patient injected with 0 mL of Isovue 300. CT of the brain is performed utilizing 3 mm thick sections through the posterior fossa and 3 mm thick sections through the remaining calvarium. Study is performed within 24 hours of arrival to the hospital. No abnormal hyperdensity is present to suggest an acute intracranial hemorrhage. No mass lesion is evident. No acute infarcts are evident. Ventricles and sulci are appropriate for the patient age. No acute fractures evident. Paranasal sinuses and mastoid air cells within the [id number] are clear. IMPRESSIONS: 1. No acute intracranial process. CT cervical spine. COMPARISON: None CT of the cervical spine is performed in the axial plane at 2 mm thick sections. Reconstructed image s in the coronal, and sagittal plane are reviewed on the computer. No acute fractures are evident. Vertebral body alignment is normal. Disc heights are preserved. Vertebral body heights are preserved. No spinal canal stenosis is evident. No neural foraminal stenosis is evident. IMPRESSION: 1. No acute osseous abnormality cervical spine
[2023-10-09] MEDS: MORPHINE SULFATE 4 MG/ML SYRINGE IV STA (08:09)
[2023-10-09 08:25] VITALS: BP 138/94; PULSE 73; RESP 20; TEMP 98.3
== END 2023-10-09 08:20 | disposition home or self-care (01) ==
LOC: EC 04:30
DX: R41.82 Altered mental status, unspecified (principal); G40.909 Epilepsy, unspecified, not intractable, without status epilepticus; Z88.6 Allergy status to analgesic agent; Z88.5 Allergy status to narcotic agent; Z88.8 Allergy status to other drugs, medicaments and biological substances
CPT/HCPCS: 99285 ×2; 96374 ×2; 36415; 93005; 80053; 83735; 85025; 72125; 70450; J2270

== ENCOUNTER 2023-10-13 19:05 | Emergency (ER) | payer BC, OTHER ==
[2023-10-13 19:26] VITALS: RESP 18; TEMP 98.1
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
--- NOTE | 2023-10-13 19:38 | XR ---
EXAMINATION TYPE: XR foot complete RT DATE OF EXAM: 10/13/2023 COMPARISON: 09/26/2023 HISTORY: Postop fall pain TECHNIQUE: 3 view right foot FINDINGS: Prominent soft tissue swelling over the dorsum of foot. Mild diffuse soft tissue swelling i s at the hindfoot. Postsurgical repair of the calcaneus is evident. No new acute fractures are eviden t. Plantar calcaneal heel spur is present. IMPRESSION: 1. Soft tissue swelling throughout the foot especially noted along the dorsum of the foot. 2. Postsurgical changes. No new fractures identified.
[2023-10-13] MEDS: diphenhydrAMINE 25 MG CAP PO STA (20:22)
[2023-10-13] MEDS: KETOROLAC 15 MG/ML 1 ML VIAL IM STA (20:23)
[2023-10-13] MEDS: diphenhydrAMINE 50 MG/ML 1 ML VIAL IM STA (20:30)
[2023-10-13 21:08] VITALS: BP 138/95; PULSE 85
== END 2023-10-13 21:39 | disposition home or self-care (01) ==
LOC: EC 19:05
DX: G89.18 Other acute postprocedural pain (principal); M79.671 Pain in right foot; Z88.6 Allergy status to analgesic agent; Z88.5 Allergy status to narcotic agent; Z88.8 Allergy status to other drugs, medicaments and biological substances
CPT/HCPCS: 73630; 99283; 96372 ×2; J1200; J1885

== ENCOUNTER 2023-10-20 04:02 | Emergency (ER) | payer BC, OTHER ==
[2023-10-20 04:21] VITALS: RESP 18; TEMP 98.4
--- NOTE | 2023-10-20 04:59 | XR ---
EXAMINATION TYPE: XR foot complete RT DATE OF EXAM: 10/20/2023 CLINICAL HISTORY: fall injury with pain TECHNIQUE: Frontal, lateral, and oblique images of the right foot are obtained. COMPARISON: Prior right foot x-ray October 13, 2023 FINDINGS: There is no acute fracture/dislocation evident in the right foot. Surgical change through comminuted fractures of the calcaneus is redemonstrated. Bony projection dorsal aspect of the navicul ar bone is redemonstrated. Mild to moderate soft tissue swelling is improved from prior. Flexion of t he toes is again seen. IMPRESSION: There is no acute fracture or dislocation in the right foot.
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
[2023-10-20] MEDS: HYDROcodone/APAP 7.5-325MG 1 EACH TAB PO ONE (05:44)
[2023-10-20 05:45] VITALS: BP 154/93; PULSE 95
[2023-10-20] MEDS: MORPHINE SULFATE 4 MG/ML SYRINGE IM STA (05:45)
== END 2023-10-20 05:48 | disposition home or self-care (01) ==
LOC: EC 04:02
DX: S93.601A Unspecified sprain of right foot, initial encounter (principal); Z88.6 Allergy status to analgesic agent; Z88.8 Allergy status to other drugs, medicaments and biological substances; Z88.5 Allergy status to narcotic agent; X50.0XXA Overexertion from strenuous movement or load, initial encounter
CPT/HCPCS: 73630; 99283; 96372; J2270

== ENCOUNTER 2023-11-24 17:42 | Emergency (ER) | payer BC, OTHER ==
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
[2023-11-24 18:14] VITALS: BP 133/82; PULSE 105; RESP 15; TEMP 97.7
== END 2023-11-24 21:54 | disposition home or self-care (01) ==
LOC: EC 17:42
DX: G89.29 Other chronic pain (principal); R10.32 Left lower quadrant pain; Z88.5 Allergy status to narcotic agent; Z88.6 Allergy status to analgesic agent; Z88.8 Allergy status to other drugs, medicaments and biological substances
CPT/HCPCS: 99283

== ENCOUNTER 2023-11-26 11:32 | Emergency (ER) | payer BC, OTHER ==
[2023-11-26 12:11] VITALS: TEMP 97.6
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
--- NOTE | 2023-11-26 13:38 | US ---
EXAMINATION TYPE: US venous doppler duplex LE RT DATE OF EXAM: 11/26/2023 1:22 PM COMPARISON: NONE CLINICAL INDICATION: Female, 33 years old with history of Swollen leg and calf tenderness; pain SIDE PERFORMED: Right TECHNIQUE: The lower extremity deep venous system is examined utilizing real time linear array sonog amna with graded compression, doppler sonography and color-flow sonography. VESSELS IMAGED: Common Femoral Vein Deep Femoral Vein Greater Saphenous Vein * Femoral Vein Popliteal Vein Small Saphenous Vein * Proximal Calf Veins (* superficial vessels) Right Leg: Negative for DVT IMPRESSION: Grayscale, color doppler, spectral doppler imaging performed of the deep veins of the lo wer extremities. There is normal flow, compressibility, vascular waveforms.
--- NOTE | 2023-11-26 14:35 | XR ---
EXAMINATION TYPE: XR ankle complete RT DATE OF EXAM: 11/26/2023 COMPARISON: 10/13/2023 HISTORY: Pain TECHNIQUE: Frontal, lateral and oblique images of the right ankle are obtained. COMPARISON: None. FINDINGS: There is previous plate and screw fracture fixation of the os calcis. Dorsal component demo nstrates nonunion with widening of the adjacent osseous surfaces of 3.5 mm versus previous of 1.5 mm. Soft tissue swelling suggested. No acute fracture seen with certainty. Ankle mortise is intact. IMPRESSION: As above
[2023-11-26 15:48] VITALS: BP 124/76; PULSE 72; RESP 18
== END 2023-11-26 15:02 | disposition home or self-care (01) ==
LOC: EC 11:32
DX: M25.571 Pain in right ankle and joints of right foot (principal); Z88.5 Allergy status to narcotic agent; Z88.6 Allergy status to analgesic agent; Z88.8 Allergy status to other drugs, medicaments and biological substances; Z90.49 Acquired absence of other specified parts of digestive tract
CPT/HCPCS: 99284

== ENCOUNTER 2023-12-16 21:52 | Emergency (ER) | payer BC, OTHER ==
[2023-12-16 21:58] VITALS: TEMP 97.9
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
[2023-12-16] MEDS: MORPHINE SULFATE 4 MG/ML SYRINGE IVP STA (23:40)
[2023-12-16] MEDS: ONDANSETRON 4 MG/2 ML VIAL IVP STA (23:40)
[2023-12-16] MEDS: PANTOPRAZOLE 40 MG/10 ML VIAL IVP STA (23:41)
[2023-12-16] MEDS: SODIUM CHLORIDE 0.9% 1,000 ML IV STA (23:41)
[2023-12-17] MEDS: diphenhydrAMINE 50 MG/ML 1 ML VIAL IVP STA (00:08)
[2023-12-17 00:25] LABS: ALT 36 U/L (4-34); African American GFR (CKD) >90 (>60 ml/min/1.73 sqM); Albumin 3.7 g/dL (3.5-5.0); Amylase 60 U/L (30-110); Anion Gap 7 mmol/L; Blood Urea Nitrogen 14 mg/dL (7-17); Calcium 8.7 mg/dL (8.4-10.2); Carbon Dioxide 18 mmol/L (22-30); Chloride 113 mmol/L (98-107); Glucose 77 mg/dL (74-99); Lipase 285 U/L (23-300); Non-African American GFR(CKD) >90 (>60 ml/min/1.73 sqM); Sodium 138 mmol/L (137-145); Total Bilirubin 0.7 mg/dL (0.2-1.3); Total Protein 6.1 g/dL (6.3-8.2)
[2023-12-17 00:32] LABS: Basophils % (A) 0 %; Eosinophils # (A) 0.3 k/uL (0-0.7); Eosinophils % (A) 3 %; HCT 34.6 % (34.0-46.0); HGB 10.4 gm/dL (11.4-16.0); Hypochromasia Marked; Lymphocytes # (A) 2.2 k/uL (1.0-4.8); Lymphocytes % (A) 21 %; MCH 27.2 pg (25.0-35.0); MCV 90.7 fL (80.0-100.0); Mean Platelet Volume 8.7; Monocytes # (A) 0.5 k/uL (0-1.0); Monocytes % (A) 5 %; Neutrophils # (A) 6.8 k/uL (1.3-7.7); Neutrophils % (A) 68 %; Platelet Count 280 k/uL (150-450); RBC 3.81 m/uL (3.80-5.40); RDW 14.7 % (11.5-15.5); WBC 10.1 k/uL (3.8-10.6)
[2023-12-17 00:33] LABS: AST 38 U/L (14-36); Alkaline Phosphatase 117 U/L (38-126); Potassium 4.4 mmol/L (3.5-5.1)
[2023-12-17 00:51] LABS: HCG,Qualitative Serum Not Detected
[2023-12-17] MEDS: MORPHINE SULFATE 2 MG/ML SYRINGE IVP STA (01:00)
[2023-12-17] MEDS: ONDANSETRON 4 MG ODT STARTER PACK 2 TAB BTL PO STA (01:00)
[2023-12-17 01:53] LABS: Appearance,Urine Clear (Clear); Bilirubin,Urine Negative (Negative); Blood,Urine Negative (Negative); Color,Urine Light Yellow; Glucose,Urine (UA) Negative (Negative); Ketones,Urine Negative (Negative); Leukocyte Esterase,Urine Negative (Negative); Nitrite,Urine Negative (Negative); PH, Urine 6.5 (5.0-8.0); Protein,Urine Trace (Negative); Specific Gravity,Urine 1.028 (1.001-1.035); Urobilinogen,Urine <2.0 mg/dL (<2.0)
[2023-12-17 02:34] VITALS: BP 127/84; PULSE 77; RESP 18
== END 2023-12-17 02:41 | disposition home or self-care (01) ==
LOC: EC 21:52
DX: G89.29 Other chronic pain (principal); R10.9 Unspecified abdominal pain; R11.10 Vomiting, unspecified; Z88.5 Allergy status to narcotic agent; Z88.6 Allergy status to analgesic agent; Z88.8 Allergy status to other drugs, medicaments and biological substances
CPT/HCPCS: 80053; 82150; 83690; 85025; 84703; 99284; 96374; 96375 ×3; 96361 ×2; 96376; J2270; J2405; C9113; 36415; 81003

== ENCOUNTER 2024-01-11 19:13 | Emergency (ER) | payer BC, OTHER ==
[2024-01-11 19:34] VITALS: RESP 18; TEMP 98
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
[2024-01-11] MEDS: HYDROmorphone 1 MG/ML 1 ML SYRINGE IM STA (20:30)
--- NOTE | 2024-01-11 21:01 | XR ---
EXAMINATION TYPE: XR ankle limited RT DATE OF EXAM: 01/11/2024 8:13 PM CLINICAL INDICATION:Female, 33 years old with history of pain; rolled ankle COMPARISON: 11/26/2023 TECHNIQUE: The right ankle is imaged in frontal and lateral projections. Limited study. FINDINGS: There is previous plate and screw fixation again noted of the calcaneus, transfixing a craniocaudal f racture in near-anatomic alignment. There is slight interval remodeling and ill definition along the fracture line, however fracture remains clearly visible. No new acute fracture can be identified. Ank le mortise is preserved. Talar dome is intact. Distal tibia and fibula appear intact and normally ali gned on these views. There is mild/moderate degenerative change in the midfoot and a moderate-sized plantar calcaneal spur is again noted. Soft tissue swelling about the ankle suggested, without evidence of radiopaque forei gn body. IMPRESSION: 1. No acute abnormality demonstrated. 2. Redemonstration of plate and screw fixation of calcaneus fracture which shows minimal remodeling/ progression of healing since the prior study. Fracture remains clearly visible. 3. Soft tissue swelling about the ankle.
--- NOTE | 2024-01-11 21:12 | XR ---
EXAMINATION TYPE: XR pelvis AP view DATE OF EXAM: 01/11/2024 8:27 PM CLINICAL INDICATION:Female, 33 years old with history of pain; [facility] COMPARISON: None TECHNIQUE: The pelvis was examined in a single projection, obtained over 2 cassettes. FINDINGS: There is no evidence of fracture or dislocation. There is no soft tissue abnormality. No abnormal ca lcifications are present. Hips appear symmetric without significant degenerative change. IMPRESSION: No acute fracture or dislocation identified, on this single view of the pelvis.
[2024-01-11 21:22] VITALS: BP 137/93; PULSE 84
[2024-01-11 21:25] LABS: Appearance,Urine Clear (Clear); Bilirubin,Urine Negative (Negative); Blood,Urine Negative (Negative); Color,Urine Colorless; Glucose,Urine (UA) Negative (Negative); Ketones,Urine Negative (Negative); Leukocyte Esterase,Urine Negative (Negative); Nitrite,Urine Negative (Negative); PH, Urine 6.5 (5.0-8.0); Protein,Urine Negative (Negative); Urobilinogen,Urine <2.0 mg/dL (<2.0)
== END 2024-01-11 21:22 | disposition home or self-care (01) ==
LOC: EC 19:13
DX: S82.891A Other fracture of right lower leg, initial encounter for closed fracture (principal); R10.9 Unspecified abdominal pain; G89.29 Other chronic pain; Z88.5 Allergy status to narcotic agent; Z88.6 Allergy status to analgesic agent; W18.30XA Fall on same level, unspecified, initial encounter; Y93.A6 Activity, grass drills
CPT/HCPCS: 81003; 72170; 73600; 99284; 96372; J1170

== ENCOUNTER 2024-01-12 13:03 | Emergency (ER) | payer BC, OTHER ==
[2024-01-12 13:14] VITALS: RESP 18
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
[2024-01-12 13:40] VITALS: TEMP 98.6
[2024-01-12] MEDS: SODIUM CHLORIDE 0.9% 1,000 ML IV STA (13:54)
[2024-01-12] MEDS: ACETAMINOPHEN TAB 500 MG TAB PO STA (13:54)
--- NOTE | 2024-01-12 14:12 | XR ---
EXAMINATION TYPE: XR chest 2V DATE OF EXAM: 01/12/2024 COMPARISON: 07/10/2023 HISTORY: 33-year-old female with chest pain TECHNIQUE: PA and lateral views FINDINGS: Heart normal size. Aorta and pulmonary vasculature within normal limits. Generator device projecting at the left mid lung. Stimulator lead extending to the left base of the neck. No consolidation or ple ural effusion. IMPRESSION: No acute cardiopulmonary process.
[2024-01-12] MEDS: HYDROcodone/APAP 5-325MG 1 EACH TAB PO STA (14:21)
[2024-01-12 14:23] LABS: ALT 30 U/L (4-34); AST 52 U/L (14-36); African American GFR (CKD) >90 (>60 ml/min/1.73 sqM); Alkaline Phosphatase 73 U/L (38-126); Anion Gap 6 mmol/L; Blood Urea Nitrogen 9 mg/dL (7-17); Calcium 8.6 mg/dL (8.4-10.2); Carbon Dioxide 20 mmol/L (22-30); Chloride 114 mmol/L (98-107); Glucose 84 mg/dL (74-99); Lipase 229 U/L (23-300); Magnesium 2.2 mg/dL (1.6-2.3); Non-African American GFR(CKD) >90 (>60 ml/min/1.73 sqM); Sodium 140 mmol/L (137-145); Total Bilirubin 1.2 mg/dL (0.2-1.3); Total Protein 6.6 g/dL (6.3-8.2)
[2024-01-12 14:57] LABS: Potassium 5.1 mmol/L (3.5-5.1)
[2024-01-12] MEDS: KETOROLAC 15 MG/ML 1 ML VIAL IVP STA (15:20)
[2024-01-12] MEDS: diphenhydrAMINE 50 MG/ML 1 ML VIAL IVP STA (15:21)
[2024-01-12 15:46] LABS: Appearance,Urine Clear (Clear); Bilirubin,Urine Negative (Negative); Blood,Urine Negative (Negative); Color,Urine Colorless; Glucose,Urine (UA) Negative (Negative); Ketones,Urine Negative (Negative); Leukocyte Esterase,Urine Negative (Negative); Nitrite,Urine Negative (Negative); PH, Urine 6.5 (5.0-8.0); Protein,Urine Negative (Negative); Specific Gravity,Urine 1.011 (1.001-1.035); Urobilinogen,Urine <2.0 mg/dL (<2.0)
[2024-01-12 16:14] LABS: Basophils # (A) 0.1 k/uL (0-0.2); Basophils % (A) 1 %; Eosinophils # (A) 0.3 k/uL (0-0.7); Eosinophils % (A) 3 %; HCT 42.9 % (34.0-46.0); HGB 11.6 gm/dL (11.4-16.0); Hypochromasia Marked; Lymphocytes # (A) 1.7 k/uL (1.0-4.8); Lymphocytes % (A) 20 %; MCH 26.1 pg (25.0-35.0); MCHC 27.1 g/dL (31.0-37.0); Mean Platelet Volume 7.7; Monocytes # (A) 0.4 k/uL (0-1.0); Monocytes % (A) 5 %; Neutrophils # (A) 5.9 k/uL (1.3-7.7); Neutrophils % (A) 69 %; Platelet Count 310 k/uL (150-450); RBC 4.44 m/uL (3.80-5.40); RDW 14.6 % (11.5-15.5); WBC 8.5 k/uL (3.8-10.6)
[2024-01-12 16:24] LABS: MCV 96.5 fL (80.0-100.0)
[2024-01-12] MEDS: LORazepam 2 MG/ML INJ IV STA (16:57)
[2024-01-12 17:39] VITALS: BP 136/78; PULSE 92
== END 2024-01-12 17:38 | disposition home or self-care (01) ==
LOC: EC 13:03
DX: R07.9 Chest pain, unspecified (principal); Z65.8 Other specified problems related to psychosocial circumstances; Z88.5 Allergy status to narcotic agent; Z88.6 Allergy status to analgesic agent; Z88.8 Allergy status to other drugs, medicaments and biological substances; Z11.52 Encounter for screening for COVID-19; Z90.49 Acquired absence of other specified parts of digestive tract
CPT/HCPCS: 36415; 93005; 85379; 80053; 83690; 83735; 84484; 85025; 81003; 87636; 71046; 99285; 96374; 96375 ×2; J2060; J1200; J1885

== ENCOUNTER 2024-02-08 19:55 | Emergency (ER) | payer BC, OTHER ==
[2024-02-08] MEDS: SODIUM CHLORIDE 0.9% 1,000 ML IV STA (22:00)
[2024-02-08] MEDS: ONDANSETRON 4 MG/2 ML VIAL IVP STA (22:01)
[2024-02-08] MEDS: MORPHINE SULFATE 4 MG/ML SYRINGE IVP STA (22:05)
--- NOTE | 2024-02-08 22:05 | XR ---
EXAMINATION TYPE: XR KUB DATE OF EXAM: 02/08/2024 9:20 PM CLINICAL INDICATION:Female, 33 years old with history of abdominal pain; [facility] COMPARISON: Abdomen radiograph 08/22/2023 TECHNIQUE: One radiographic view of the abdomen was obtained. FINDINGS: The bowel gas pattern is nonspecific without dilated loops of small or large bowel. There i s no evidence for organomegaly or pneumoperitoneum. The osseous structures are intact. No abnormal calcifications are present. Fecal material and gas are demonstrated throughout the colon and rectum. IMPRESSION: Nonspecific bowel gas pattern without radiographic evidence for acute process.
[2024-02-08 23:45] LABS: Appearance,Urine Cloudy (Clear); Bacteria,Urine Many /hpf; Bilirubin,Urine Negative (Negative); Blood,Urine Negative (Negative); Color,Urine Colorless; Glucose,Urine (UA) Negative (Negative); Ketones,Urine Negative (Negative); Leukocyte Esterase,Urine Negative (Negative); Mucus,Urine Rare /hpf; Nitrite,Urine Negative (Negative); Protein,Urine Negative (Negative); RBC,Urine 3 /hpf (0-5); Specific Gravity,Urine 1.013 (1.001-1.035); Squamous Epithelial Cell,Urine 4 /hpf (0-4); Urobilinogen,Urine <2.0 mg/dL (<2.0); WBC,Urine 4 /hpf (0-5)
[2024-02-08 23:46] LABS: ALT 23 U/L (4-34); AST 20 U/L (14-36); African American GFR (CKD) >90 (>60 ml/min/1.73 sqM); Albumin 3.5 g/dL (3.5-5.0); Alkaline Phosphatase 88 U/L (38-126); Amylase 49 U/L (30-110); Anion Gap 7 mmol/L; Blood Urea Nitrogen 11 mg/dL (7-17); Calcium 8.4 mg/dL (8.4-10.2); Carbon Dioxide 20 mmol/L (22-30); Chloride 114 mmol/L (98-107); Glucose 83 mg/dL (74-99); Lipase 210 U/L (23-300); Non-African American GFR(CKD) >90 (>60 ml/min/1.73 sqM); Potassium 4.5 mmol/L (3.5-5.1); Sodium 141 mmol/L (137-145); Total Bilirubin 0.2 mg/dL (0.2-1.3); Total Protein 5.8 g/dL (6.3-8.2)
[2024-02-08 23:51] LABS: Basophils % (A) 0 %; Eosinophils # (A) 0.4 k/uL (0-0.7); Eosinophils % (A) 4 %; HCT 35.4 % (34.0-46.0); HGB 10.9 gm/dL (11.4-16.0); Hypochromasia Marked; Lymphocytes # (A) 2.4 k/uL (1.0-4.8); Lymphocytes % (A) 22 %; MCH 26.9 pg (25.0-35.0); MCHC 30.7 g/dL (31.0-37.0); Mean Platelet Volume 7.8; Monocytes # (A) 0.6 k/uL (0-1.0); Monocytes % (A) 5 %; Neutrophils # (A) 7.2 k/uL (1.3-7.7); Neutrophils % (A) 67 %; Platelet Count 395 k/uL (150-450); RBC 4.04 m/uL (3.80-5.40); RDW 15.3 % (11.5-15.5); WBC 10.8 k/uL (3.8-10.6)
[2024-02-08 23:53] LABS: MCV 87.7 fL (80.0-100.0)
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
[2024-02-09] MEDS: HYDROmorphone 0.5 MG/0.5 ML SYRINGE IVP STA (00:46)
[2024-02-09 01:01] VITALS: BP 127/83; PULSE 87; RESP 17; TEMP 97.9
== END 2024-02-09 01:01 | disposition home or self-care (01) ==
LOC: EC 19:55
DX: R10.31 Right lower quadrant pain (principal); Z88.5 Allergy status to narcotic agent; Z88.6 Allergy status to analgesic agent; Z88.8 Allergy status to other drugs, medicaments and biological substances; Z98.84 Bariatric surgery status
CPT/HCPCS: 99284; 96374; 96375 ×2; 36415; 80053; 82150; 83605; 83690; 85025; 81001; 74018; J2270; J2405; J1170

== ENCOUNTER 2024-02-10 15:32 | Emergency (ER) | payer BC ==
[2024-02-10 15:40] VITALS: TEMP 98
[2024-02-10 17:56] LABS: Appearance,Urine Cloudy (Clear); Bacteria,Urine Many /hpf; Bilirubin,Urine Negative (Negative); Blood,Urine Negative (Negative); Color,Urine Colorless; Glucose,Urine (UA) Negative (Negative); Ketones,Urine Negative (Negative); Leukocyte Esterase,Urine Negative (Negative); Mucus,Urine Rare /hpf; Nitrite,Urine Negative (Negative); Protein,Urine Negative (Negative); RBC,Urine 3 /hpf (0-5); Specific Gravity,Urine 1.016 (1.001-1.035); Squamous Epithelial Cell,Urine 6 /hpf (0-4); Urobilinogen,Urine <2.0 mg/dL (<2.0); WBC,Urine 5 /hpf (0-5)
--- NOTE | 2024-02-10 18:08 | XR ---
EXAMINATION TYPE: XR KUB DATE OF EXAM: 02/10/2024 5:44 PM CLINICAL INDICATION:Female, 33 years old with history of abd pain; [facility] COMPARISON: 02/08/2024. TECHNIQUE: One radiographic view of the abdomen was obtained. FINDINGS: There is a moderate stool burden, otherwise, the bowel gas pattern is nonspecific without d ilated loops of small or large bowel. . Fecal material and gas are demonstrated throughout the colon and rectum. There is no evidence for organomegaly or pneumoperitoneum. The osseous structures are intact. No ab normal calcifications are present. Right upper quadrant cholecystectomy clips. In the chest. Cardiac conduction device. IMPRESSION: Moderate stool burden, otherwise Nonspecific bowel gas pattern without radiographic evidence for acut e process.
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
[2024-02-10 18:17] LABS: Basophils % (A) 0 %; Eosinophils # (A) 0.2 k/uL (0-0.7); Eosinophils % (A) 2 %; HCT 38.7 % (34.0-46.0); HGB 11.4 gm/dL (11.4-16.0); Hypochromasia Marked; Lymphocytes # (A) 1.7 k/uL (1.0-4.8); Lymphocytes % (A) 17 %; MCH 25.8 pg (25.0-35.0); MCHC 29.5 g/dL (31.0-37.0); MCV 87.2 fL (80.0-100.0); Mean Platelet Volume 7.1; Monocytes # (A) 0.4 k/uL (0-1.0); Monocytes % (A) 4 %; Neutrophils # (A) 7.4 k/uL (1.3-7.7); Neutrophils % (A) 74 %; Platelet Count 432 k/uL (150-450); RBC 4.43 m/uL (3.80-5.40)
[2024-02-10 18:19] VITALS: BP 144/81
[2024-02-10 18:37] LABS: ALT 29 U/L (4-34); African American GFR (CKD) >90 (>60 ml/min/1.73 sqM); Albumin 4.2 g/dL (3.5-5.0); Anion Gap 8 mmol/L; Blood Urea Nitrogen 11 mg/dL (7-17); Calcium 8.6 mg/dL (8.4-10.2); Carbon Dioxide 20 mmol/L (22-30); Chloride 113 mmol/L (98-107); Creatine Kinase 219 U/L (30-135); Glucose 84 mg/dL (74-99); Non-African American GFR(CKD) >90 (>60 ml/min/1.73 sqM); Sodium 141 mmol/L (137-145); Total Protein 6.7 g/dL (6.3-8.2)
[2024-02-10 18:55] LABS: AST 49 U/L (14-36); Alkaline Phosphatase 91 U/L (38-126); Potassium 5.3 mmol/L (3.5-5.1); Total Bilirubin 0.6 mg/dL (0.2-1.3)
[2024-02-10] MEDS: cefTRIAXone IN SWFI 1,000 MG/10 ML SYRINGE IVP STA (19:41)
[2024-02-10] MEDS: HYDROcodone/APAP 10-325MG 1 EACH TAB PO ONE (19:44)
[2024-02-10 19:48] VITALS: PULSE 82; RESP 16
== END 2024-02-10 19:50 | disposition home or self-care (01) ==
LOC: EC 15:32
DX: N39.0 Urinary tract infection, site not specified (principal); R56.9 Unspecified convulsions; Z88.5 Allergy status to narcotic agent; Z88.6 Allergy status to analgesic agent; Z88.8 Allergy status to other drugs, medicaments and biological substances; Z90.49 Acquired absence of other specified parts of digestive tract
CPT/HCPCS: 36415; 93005; 80053; 82550; 83605; 83735; 85025; 81001; 81025; 74018; 99285; 96374; J0696

== ENCOUNTER 2024-02-16 16:00 | Emergency (ER) | payer BC, MEDICARE ==
[2024-02-16 16:17] VITALS: RESP 16
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
[2024-02-16] MEDS: HYDROmorphone 1 MG/ML 1 ML SYRINGE IM STA (16:58)
[2024-02-16] MEDS: GLYCERIN ADULT SUPPOSITORY 1 EACH RECTAL STA (18:57)
[2024-02-16] MEDS: SENNOSIDES-DOCUSATE SODIUM 1 EACH TAB PO STA (18:57)
[2024-02-16 19:03] VITALS: BP 120/80; PULSE 76; TEMP 98
== END 2024-02-16 19:02 | disposition home or self-care (01) ==
LOC: EC 16:00
DX: R10.84 Generalized abdominal pain (principal); G40.909 Epilepsy, unspecified, not intractable, without status epilepticus; Z88.5 Allergy status to narcotic agent; Z88.6 Allergy status to analgesic agent; Z88.8 Allergy status to other drugs, medicaments and biological substances; Z90.49 Acquired absence of other specified parts of digestive tract
CPT/HCPCS: 99284; 96372; J1170; 96374

== ENCOUNTER 2024-02-23 18:00 | Emergency (ER) | payer BC, MEDICARE ==
[2024-02-23] MEDS ORDERED: HYDROmorphone 1 MG/ML 1 ML SYRINGE ONE (19:32)
== END 2024-02-23 19:37 | disposition home or self-care (01) ==
LOC: EC 18:00
DX: T85.840A Pain due to nervous system prosthetic devices, implants and grafts, initial encounter (principal)

== ENCOUNTER 2024-02-27 09:00 | Day surgery (SDC) | payer BC, MEDICARE ==
[~2024-02-27 09:00] MED LIST changes: +LACTATED RINGERS 1,000 ML BAG ONE; -LACTATED RINGERS 1,000 ML IV SCH; -LIDOCAINE 1% (10MG/ML) FOR IV START INTRADERMA PRN
[2024-02-27] MEDS ORDERED: PROPOFOL 10 MG/ML 20 ML VIAL IV ONE (09:34)
[2024-02-27] MEDS ORDERED: LIDOCAINE 1% INJ 10MG/ML (20 ML MDV) ONE (09:34)
[2024-02-27] MEDS ORDERED: HYDROcodone/APAP 5-325MG 1 EACH TAB ONE (10:07)
--- NOTE | 2024-04-17 13:37 | OP ---
OPERATIVE REPORT DATE OF SERVICE : 02/27/2024 PREOPERATIVE DIAGNOSIS: Constipation. POSTOPERATIVE DIAGNOSIS: Normal colon. WRAPPER LAYER AND EXAMINER SOFT WORK: None. ANESTHESIA: MAC. DESCRIPTION OF PROCEDURE: The patient was placed on the endoscopy table in the lateral position. She received IV sedation. Digital rectal exam was performed. This revealed no abnormalities. Flexible colonoscope was then placed into the anus and passed throughout the colon. The patient lost her IV access during the procedure. The cecum was not visualized. Another IV was unable to be started. At this point, the scope was withdrawn. The visualized right colon, transverse colon, descending colon, and sigmoid colon appeared normal. The scope was brought back to the rectum, this appeared normal. The scope was withdrawn from the patient. There was no evidence of any obstruction to explain her constipation. Her constipation was likely functional. MMODL / IJN: [id number] /
== END 2024-02-27 10:31 ==
LOC: ORWHC2ENDO 09:00
PROVIDERS: ATTEND Surgery
DX: K59.00 Constipation, unspecified (principal); R56.9 Unspecified convulsions; Z79.899 Other long term (current) drug therapy; Z88.6 Allergy status to analgesic agent
CPT/HCPCS: 45378

== ENCOUNTER 2024-03-12 10:18 | Emergency (ER) | payer BC ==
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
[2024-03-12] MEDS: diphenhydrAMINE 50 MG/ML 1 ML VIAL IVP STA (11:49)
[2024-03-12] MEDS: KETOROLAC 15 MG/ML 1 ML VIAL IVP STA (11:56)
[2024-03-12] MEDS: droPERidol 5 MG/2 ML VIAL IVP ONE (12:04)
[2024-03-12 13:41] VITALS: BP 138/83; PULSE 68; RESP 18; TEMP 97.9
== END 2024-03-12 13:38 | disposition home or self-care (01) ==
LOC: EC 10:18
CPT/HCPCS: 96374; 96375; 99284

== ENCOUNTER 2024-03-15 14:05 | Emergency (ER) | payer BC, MEDICARE ==
[2024-03-15 14:16] VITALS: TEMP 97.9
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
[2024-03-15] MEDS: SODIUM CHLORIDE 0.9% 1,000 ML IV STA (16:12)
[2024-03-15] MEDS: ONDANSETRON 4 MG/2 ML VIAL IVP STA (16:14)
[2024-03-15] MEDS: PANTOPRAZOLE 40 MG/10 ML VIAL IVP STA (16:14)
[2024-03-15] MEDS: MORPHINE SULFATE 2 MG/ML SYRINGE IVP ONE ×2 (16:14→17:52)
--- NOTE | 2024-03-15 16:15 | XR ---
EXAMINATION TYPE: XR chest 2V DATE OF EXAM: 03/15/2024 4:04 PM CLINICAL INDICATION: Female, 33 years old with history of LUQ pain, hx of pleurisy; [facility] COMPARISON: Chest radiographs from 01/12/2024 TECHNIQUE: XR chest 2V Frontal view of the chest. FINDINGS: Lungs/Pleura: There is no evidence of pleural effusion, focal consolidation, or pneumothorax. Pulmonary vascularity: Unremarkable. Heart/mediastinum: Cardiomediastinal silhouette is unremarkable. Musculoskeletal: No acute osseous pathology. Other findings: None. Conduction device with leads terminating over the neck region. IMPRESSION: No acute cardiopulmonary disease/process.
[2024-03-15 16:18] LABS: Basophils % (A) 0 %; Eosinophils # (A) 0.2 k/uL (0-0.7); Eosinophils % (A) 2 %; HCT 36.3 % (34.0-46.0); HGB 11.1 gm/dL (11.4-16.0); Hypochromasia Marked; Lymphocytes # (A) 1.3 k/uL (1.0-4.8); Lymphocytes % (A) 19 %; MCH 25.9 pg (25.0-35.0); MCHC 30.5 g/dL (31.0-37.0); Mean Platelet Volume 6.7; Monocytes # (A) 0.3 k/uL (0-1.0); Monocytes % (A) 5 %; Neutrophils # (A) 4.6 k/uL (1.3-7.7); Neutrophils % (A) 71 %; Platelet Count 400 k/uL (150-450); RBC 4.27 m/uL (3.80-5.40); RDW 15.4 % (11.5-15.5); WBC 6.5 k/uL (3.8-10.6)
[2024-03-15 16:25] LABS: ALT 32 U/L (4-34); AST 31 U/L (14-36); African American GFR (CKD) >90 (>60 ml/min/1.73 sqM); Albumin 4.1 g/dL (3.5-5.0); Alkaline Phosphatase 111 U/L (38-126); Anion Gap 5 mmol/L; Blood Urea Nitrogen 12 mg/dL (7-17); Calcium 9.4 mg/dL (8.4-10.2); Carbon Dioxide 25 mmol/L (22-30); Chloride 109 mmol/L (98-107); Glucose 81 mg/dL (74-99); Lipase 257 U/L (23-300); Non-African American GFR(CKD) >90 (>60 ml/min/1.73 sqM); Potassium 4.3 mmol/L (3.5-5.1); Sodium 139 mmol/L (137-145); Total Bilirubin 0.5 mg/dL (0.2-1.3); Total Protein 6.5 g/dL (6.3-8.2)
[2024-03-15 16:51] LABS: Appearance,Urine Clear (Clear); Bilirubin,Urine Negative (Negative); Blood,Urine Negative (Negative); Color,Urine Yellow; Glucose,Urine (UA) Negative (Negative); Ketones,Urine Negative (Negative); Leukocyte Esterase,Urine Negative (Negative); Nitrite,Urine Negative (Negative); Protein,Urine Trace (Negative); Specific Gravity,Urine 1.032 (1.001-1.035); Urobilinogen,Urine <2.0 mg/dL (<2.0)
[2024-03-15] MEDS: METOCLOPRAMIDE 5 MG/ML 2 ML VIAL IVP STA (17:51)
[2024-03-15 18:06] VITALS: BP 125/91; PULSE 96; RESP 18
== END 2024-03-15 18:06 | disposition home or self-care (01) ==
LOC: EC 14:05
DX: K29.70 Gastritis, unspecified, without bleeding (principal); Z88.5 Allergy status to narcotic agent; Z88.6 Allergy status to analgesic agent; Z88.8 Allergy status to other drugs, medicaments and biological substances
CPT/HCPCS: 36415; 80053; 83605; 83690; 85025; 81003; 71046; 99284; 96374; 96375; 96376; 96361; J2765; J2405; J2270; J2470

== ENCOUNTER 2024-03-18 11:08 | Emergency (ER) | payer BC, MEDICARE ==
[2024-03-18 11:11] VITALS: RESP 16; TEMP 97.4
[2024-03-18] MEDS: ACETAMINOPHEN IV (For NPO) 1,000 MG in EMPTY BAG 1 BAG IVPB STA (11:48)
[2024-03-18 11:52] LABS: Basophils % (A) 1 %; Eosinophils # (A) 0.2 k/uL (0-0.7); Eosinophils % (A) 3 %; HCT 38.7 % (34.0-46.0); HGB 11.7 gm/dL (11.4-16.0); Hypochromasia Marked; Lymphocytes # (A) 1.3 k/uL (1.0-4.8); Lymphocytes % (A) 20 %; MCH 25.9 pg (25.0-35.0); MCHC 30.3 g/dL (31.0-37.0); MCV 85.4 fL (80.0-100.0); Mean Platelet Volume 6.8; Monocytes # (A) 0.3 k/uL (0-1.0); Monocytes % (A) 5 %; Neutrophils # (A) 4.5 k/uL (1.3-7.7); Neutrophils % (A) 70 %; Platelet Count 413 k/uL (150-450); RBC 4.53 m/uL (3.80-5.40); RDW 15.5 % (11.5-15.5); WBC 6.4 k/uL (3.8-10.6)
[2024-03-18] MEDS: diphenhydrAMINE 50 MG/ML 1 ML VIAL IVP STA (12:05)
[2024-03-18] MEDS: MAG HYDROX/AL HYDROX/SIMETH 30 ML, HYOSCYAMINE ELIXIR 10 ML PO STA (12:06)
[2024-03-18] MEDS: KETOROLAC 15 MG/ML 1 ML VIAL IVP STA (12:06)
[2024-03-18] MEDS: PANTOPRAZOLE 40 MG/10 ML VIAL IVP STA (12:06)
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
--- NOTE | 2024-03-18 12:09 | XR ---
EXAMINATION TYPE: XR KUB DATE OF EXAM: 03/18/2024 COMPARISON: 02/16/2024, 02/10/2024 HISTORY: Abdominal pain TECHNIQUE: Single upright KUB image of the abdomen is obtained FINDINGS: Small bowel demonstrates no evidence for dilatation or air fluid levels. Gas and fecal material is seen in non-distended colon. No convincing evidence for pneumoperitoneum. No unusual calcifications. Cholecystectomy clips in the right upper quadrant. Postsurgical changes i n the left upper quadrant related to the stomach with suture material identified. The lung bases are clear. The osseous structures are intact. IMPRESSION: Overall nonobstructive bowel gas pattern without radiographic evidence for an acute process.
[2024-03-18] MEDS: SODIUM CHLORIDE 0.9% 1,000 ML IV STA (12:12)
[2024-03-18 12:16] LABS: ALT 34 U/L (4-34); AST 29 U/L (14-36); African American GFR (CKD) >90 (>60 ml/min/1.73 sqM); Albumin 4.3 g/dL (3.5-5.0); Alkaline Phosphatase 113 U/L (38-126); Amylase 64 U/L (30-110); Anion Gap 6 mmol/L; Blood Urea Nitrogen 13 mg/dL (7-17); Calcium 9.4 mg/dL (8.4-10.2); Carbon Dioxide 24 mmol/L (22-30); Chloride 108 mmol/L (98-107); Glucose 78 mg/dL (74-99); Lipase 321 U/L (23-300); Non-African American GFR(CKD) 84 (>60 ml/min/1.73 sqM); Potassium 4.9 mmol/L (3.5-5.1); Sodium 138 mmol/L (137-145); Total Bilirubin 0.6 mg/dL (0.2-1.3); Total Protein 6.7 g/dL (6.3-8.2)
[2024-03-18] MEDS: MORPHINE SULFATE 4 MG/ML SYRINGE IVP STA (13:08)
[2024-03-18] MEDS: droPERidol 5 MG/2 ML VIAL IVP ONE (13:09)
[2024-03-18 13:32] VITALS: BP 120/83; PULSE 85
== END 2024-03-18 13:31 | disposition home or self-care (01) ==
LOC: EC 11:08
DX: R10.9 Unspecified abdominal pain
CPT/HCPCS: 36415; 74018; 80053; 82150; 83605; 83690; 84484; 85025; 93005; 96361; 96374; 96375; 99284

== ENCOUNTER 2024-03-24 15:24 | Emergency (ER) | payer BC, MEDICARE ==
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
[2024-03-24] MEDS: PROCHLORPERAZINE SUPPOSITORY 25 MG SUPP RECTAL STA (16:37)
[2024-03-24] MEDS: HYDROmorphone 1 MG/ML 1 ML SYRINGE IM STA (16:38)
[2024-03-24] MEDS: droPERidol 5 MG/2 ML VIAL IM ONE (16:40)
[2024-03-24] MEDS: diphenhydrAMINE 25 MG CAP PO STA (17:04)
[2024-03-24 17:07] VITALS: BP 115/80; PULSE 93; RESP 18; TEMP 98
== END 2024-03-24 17:19 | disposition home or self-care (01) ==
LOC: EC 15:24
DX: K92.0 Hematemesis
CPT/HCPCS: 96372; 99284

== ENCOUNTER 2024-03-26 07:50 | Day surgery (SDC) | payer BC, MEDICARE ==
[2024-03-25 10:41] VITALS: BMI 41.6
[2024-03-26 08:46] VITALS: TEMP 98.1
[2024-03-26] MEDS: LACTATED RINGERS 1,000 ML IV SCH (09:15)
[2024-03-26] MEDS: IV FLUID CONTINUATION 1,000 ML IV ONE (09:15)
[2024-03-26] MEDS ORDERED: LIDOCAINE 1% INJ 10MG/ML (20 ML MDV) ONE (10:07)
[2024-03-26] MEDS ORDERED: PROPOFOL 10 MG/ML 20 ML VIAL IV ONE (10:07)
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
--- NOTE | 2024-03-26 10:20 | P.OP ---
Date of Procedure: 03/26/24 Preoperative Diagnosis: left upper quadrant pain Postoperative Diagnosis: normal EGD status post Patrick-en-Y gastric bypass Procedure(s) Performed: EGD Anesthesia: MAC Surgeon: Cali Jha Pathology: none sent Condition: stable Disposition: PACU Description of Procedure: the patient's placed on the endoscopy table in the lateral position. She received IV sedation. The gastro-/oropharynx passed in the esophagus and stomach. Patient previous gastric bypass. The gastrojejunostomy was without evidence of scarring or stenosis. The scope was easily passed into the jejunum. Scope was withdrawn. The gastric pouch appeared small. The GE junction was at 40 cm. The distal esophagus appeared normal. Proximal esophagus appeared normal. Scope withdrawn for patient.
[2024-03-26 10:28] VITALS: RESP 16
[2024-03-26 10:48] VITALS: BP 106/74; PULSE 71
== END 2024-03-26 11:32 | disposition home or self-care (01) ==
LOC: ORWHC2ENDO 07:50
PROVIDERS: ATTEND Surgery
DX: R10.12 Left upper quadrant pain (principal); K21.9 Gastro-esophageal reflux disease without esophagitis; M19.90 Unspecified osteoarthritis, unspecified site; G40.89 Other seizures; Z98.84 Bariatric surgery status; Z90.49 Acquired absence of other specified parts of digestive tract; Z90.710 Acquired absence of both cervix and uterus; Z90.721 Acquired absence of ovaries, unilateral; Z83.49 Family history of other endocrine, nutritional and metabolic diseases; Z87.19 Personal history of other diseases of the digestive system; Z80.49 Family history of malignant neoplasm of other genital organs; Z83.2 Family history of diseases of the blood and blood-forming organs and certain disorders involving the immune mechanism; Z80.0 Family history of malignant neoplasm of digestive organs; Z79.890 Hormone replacement therapy; Z88.5 Allergy status to narcotic agent; Z88.6 Allergy status to analgesic agent; Z79.899 Other long term (current) drug therapy
CPT/HCPCS: 43235; J2001; J2704

== ENCOUNTER 2024-04-07 18:59 | Emergency (ER) | payer BC, MEDICARE ==
[2024-04-07 19:08] VITALS: TEMP 97.6
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
[2024-04-07] MEDS: ONDANSETRON 4 MG/2 ML VIAL IVP STA (21:48)
[2024-04-07] MEDS: SODIUM CHLORIDE 0.9% 1,000 ML IV STA (21:48)
[2024-04-07] MEDS: CLINDAMYCIN 150 MG CAP PO STA (21:51)
[2024-04-07] MEDS: ACETAMINOPHEN TAB 500 MG TAB PO STA (21:51)
[2024-04-07 22:04] VITALS: BP 124/78; PULSE 92; RESP 18
== END 2024-04-07 22:05 | disposition home or self-care (01) ==
LOC: EC 18:59
CPT/HCPCS: 99283

== ENCOUNTER 2024-04-15 18:13 | Emergency (ER) | payer BC, MEDICARE ==
[2024-04-15 18:34] VITALS: RESP 20
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
[2024-04-15] MEDS: HYDROmorphone 1 MG/ML 1 ML SYRINGE IM STA (19:20)
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
[2024-04-15] MEDS: hydrOXYzine HCL 25 MG TAB PO STA (21:18)
[2024-04-15 21:24] VITALS: BP 118/81; PULSE 91; TEMP 98.1
== END 2024-04-15 21:24 | disposition home or self-care (01) ==
LOC: EC 18:13
CPT/HCPCS: 71046; 99284

== ENCOUNTER 2024-04-22 12:57 | Emergency (ER) | payer BC, MEDICARE ==
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
[2024-04-22 14:12] VITALS: BP 114/74; PULSE 104; RESP 15; TEMP 97.8
== END 2024-04-22 14:59 | disposition home or self-care (01) ==
LOC: EC 12:57
CPT/HCPCS: 93005; 99284

== ENCOUNTER 2024-04-22 23:50 | Emergency (ER) | payer BC, MEDICARE ==
[2024-04-22 23:57] LABS: Glucose,Whole Blood 130 mg/dL (70-110)
[2024-04-22 23:58] VITALS: TEMP 98.4
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
[2024-04-23 01:05] LABS: Anisocytosis Slight; Basophils % (A) 0 %; Eosinophils # (A) 0.2 k/uL (0-0.7); Eosinophils % (A) 3 %; HCT 36.5 % (34.0-46.0); HGB 11.3 gm/dL (11.4-16.0); Hypochromasia Moderate; Lymphocytes # (A) 1.1 k/uL (1.0-4.8); Lymphocytes % (A) 13 %; MCH 26.9 pg (25.0-35.0); MCHC 30.8 g/dL (31.0-37.0); MCV 87.1 fL (80.0-100.0); Mean Platelet Volume 7.3; Monocytes # (A) 0.4 k/uL (0-1.0); Monocytes % (A) 5 %; Neutrophils # (A) 6.4 k/uL (1.3-7.7); Neutrophils % (A) 78 %; Platelet Count 350 k/uL (150-450); RBC 4.19 m/uL (3.80-5.40); RDW 16.1 % (11.5-15.5); WBC 8.3 k/uL (3.8-10.6)
[2024-04-23] MEDS: SODIUM CHLORIDE 0.9% 1,000 ML IV STA (01:07)
[2024-04-23 01:55] LABS: ALT 67 U/L (4-34); AST 42 U/L (14-36); African American GFR (CKD) >90 (>60 ml/min/1.73 sqM); Alkaline Phosphatase 96 U/L (38-126); Anion Gap 4 mmol/L; Blood Urea Nitrogen 12 mg/dL (7-17); Calcium 9.6 mg/dL (8.4-10.2); Carbon Dioxide 23 mmol/L (22-30); Chloride 116 mmol/L (98-107); Glucose 102 mg/dL (74-99); Non-African American GFR(CKD) >90 (>60 ml/min/1.73 sqM); Potassium 4.5 mmol/L (3.5-5.1); Sodium 143 mmol/L (137-145); Total Bilirubin 0.4 mg/dL (0.2-1.3); Total Protein 6.4 g/dL (6.3-8.2)
--- NOTE | 2024-04-23 02:44 | CT ---
EXAM: CT Head Without Intravenous Contrast CLINICAL HISTORY: ITS.REASON CT Reason: fall, ams TECHNIQUE: Axial computed tomography images of the head/brain without intravenous contrast. CTDI is 45.2 mGy and DLP is 1017 mGy-cm. This CT exam was performed using one or more of the following dose reduction techniques: automated exposure control, adjustment of the mA and/or kV according to patient size, and/or use of iterative reconstruction technique. COMPARISON: No relevant prior studies available. FINDINGS: Brain: No hemorrhage or mass effect. Ventricles: No hydrocephalus. Bones/joints: Unremarkable. Soft tissues: Unremarkable. Sinuses: No air fluid level. Mastoid air cells: Clear. IMPRESSION: No acute hemorrhage, hydrocephalus, or mass effect. EXAM: CT Cervical Spine Without Intravenous Contrast CLINICAL HISTORY: ITS.REASON CT Reason: fall, ams TECHNIQUE: Axial computed tomography images of the cervical spine without intravenous contrast. CTDI is 13.4 mGy and DLP is 328.6 mGy-cm. This CT exam was performed using one or more of the following dose reduction techniques: automated exposure control, adjustment of the mA and/or kV according to patient size, and/or use of iterative reconstruction technique. COMPARISON: No relevant prior studies available. FINDINGS: Vertebrae: No acute fracture. Discs/spinal canal/neural foramina: minimal degenerative changes. Soft tissues: No prevertebral swelling. IMPRESSION: No acute fracture or subluxation.
--- NOTE | 2024-04-23 03:16 | XR ---
EXAM: XR Pelvis, 1 or 2 Views CLINICAL HISTORY: ITS.REASON XR Reason: fall, ams TECHNIQUE: Frontal view of the pelvis. COMPARISON: No relevant prior studies available. FINDINGS: Bones/joints: No acute fracture. No dislocation. Soft tissues: Unremarkable. IMPRESSION: No acute findings.
--- NOTE | 2024-04-23 03:16 | XR ---
EXAM: XR Chest, 1 View CLINICAL HISTORY: ITS.REASON XR Reason: fall, ams TECHNIQUE: Frontal view of the chest. COMPARISON: No relevant prior studies available. FINDINGS: Lungs: No consolidation or mass. Pleural space: No acute findings. Heart: cardiomegaly. Bones/joints: No acute findings. IMPRESSION: No acute cardiopulmonary process.
[2024-04-23] MEDS: LORazepam 2 MG/ML INJ IV STA (04:05)
[2024-04-23] MEDS: diphenhydrAMINE 50 MG/ML 1 ML VIAL IVP STA (04:26)
[2024-04-23] MEDS: KETOROLAC 15 MG/ML 1 ML VIAL IVP STA (05:24)
[2024-04-23 05:31] VITALS: BP 147/98; PULSE 93; RESP 16
== END 2024-04-23 05:37 | disposition home or self-care (01) ==
LOC: EC 23:50
CPT/HCPCS: 36415; 70450; 71045; 72125; 72170; 80053; 85025; 93005; 96361; 96374; 96375; 99285

== ENCOUNTER → 2024-05-07 | Outpatient (CLI) | payer BC, MEDICARE ==
[2024-05-07 20:12] LABS: HCT 43.9 % (37.2-46.3); MCH 26.6 pg (27.0-32.0); MCHC 29.6 g/dL (32.0-37.0); MCV 89.8 FL (80.0-97.0); Mean Platelet Volume 9.9 FL (9.5-12.2); NRBC Per 100 WBC 0 X 10*3/uL (0.00-0.01); Platelet Count 349 X 10*3/uL (140-440); RBC 4.89 X 10*6/uL (4.10-5.20); RDW 16.4 % (11.5-14.5); WBC 11.97 X 10*3/uL (4.50-10.00)
[2024-05-07 20:33] LABS: ALT 20 U/L (8-44); AST 26 U/L (13-35); Albumin 4.4 g/dL (3.8-4.9); Albumin/Globulin Ratio 1.69 Ratio (1.60-3.17); Alkaline Phosphatase 145 U/L (41-126); BUN/Creat Ratio 8.38 Ratio (12.00-20.00); Blood Urea Nitrogen 6.7 mg/dL (9.0-27.0); C Reactive Protein <0.30 mg/dL (0.00-0.80); Calcium 9.8 mg/dL (8.7-10.3); Carbon Dioxide 20.2 mmol/L (21.6-31.8); Chloride 106 mmol/L (96-109); Globulin 2.6 g/dL (1.6-3.3); Glucose 78 mg/dL (70-110); Potassium 4.6 mmol/L (3.5-5.5); Sodium 140 mmol/L (135-145); Total Bilirubin 0.3 mg/dL (0.3-1.2)
[2024-05-07 20:38] LABS: Erythrocyte Sedimentation Rate 7 mm/Hr (0-20)
== END | disposition home or self-care (01) ==
LOC: LABWHC1 14:33
PROVIDERS: ATTEND Family Medicine
CPT/HCPCS: 36415; 80053; 83036; 84443; 85027; 85652; 86140

== ENCOUNTER 2024-05-08 17:38 | Emergency (ER) | payer BC, MEDICARE ==
[2024-05-08 17:46] VITALS: RESP 18
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
[2024-05-08] MEDS: clonazePAM 0.5 MG TAB PO STA (19:55)
[2024-05-08 19:56] VITALS: BP 124/89; PULSE 99; TEMP 98.4
== END 2024-05-08 20:01 | disposition home or self-care (01) ==
LOC: EC 17:38
CPT/HCPCS: 99283

== ENCOUNTER 2024-05-09 01:30 | Emergency (ER) | payer MEDICARE, BC ==
[2024-05-09 01:34] VITALS: TEMP 98
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
[2024-05-09] MEDS: HALOPERIDOL LACTATE 5 MG/ML 1 ML VIAL IM STA (03:44)
[2024-05-09 03:46] VITALS: BP 116/98; PULSE 90; RESP 17
[2024-05-09] MEDS: LORazepam 2 MG/ML INJ IM STA (03:47)
== END 2024-05-09 05:07 | disposition left against medical advice (07) ==
LOC: EC 01:30
DX: G47.00 Insomnia, unspecified (principal); Z88.6 Allergy status to analgesic agent; Z88.8 Allergy status to other drugs, medicaments and biological substances; Z88.5 Allergy status to narcotic agent
CPT/HCPCS: 99283; 96372 ×2; J2060; J1630

== ENCOUNTER 2024-05-09 14:45 | Emergency (ER) | payer MEDICARE, BC ==
[2024-05-09 15:18] VITALS: RESP 16; TEMP 973
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
[2024-05-09 16:26] LABS: Anisocytosis Slight; Basophils % (A) 0 %; Eosinophils # (A) 0.3 k/uL (0-0.7); Eosinophils % (A) 3 %; HCT 41.4 % (34.0-46.0); HGB 12.6 gm/dL (11.4-16.0); Hypochromasia Marked; Lymphocytes # (A) 1.5 k/uL (1.0-4.8); Lymphocytes % (A) 18 %; MCH 26.5 pg (25.0-35.0); MCHC 30.5 g/dL (31.0-37.0); MCV 86.7 fL (80.0-100.0); Mean Platelet Volume 6.9; Monocytes # (A) 0.3 k/uL (0-1.0); Monocytes % (A) 4 %; Neutrophils # (A) 6.2 k/uL (1.3-7.7); Neutrophils % (A) 73 %; Platelet Count 346 k/uL (150-450); RBC 4.78 m/uL (3.80-5.40); WBC 8.5 k/uL (3.8-10.6)
[2024-05-09] MEDS: MORPHINE SULFATE 4 MG/ML SYRINGE IVP PRN (16:37)
[2024-05-09 16:41] LABS: African American GFR (CKD) >90 (>60 ml/min/1.73 sqM); Anion Gap 9 mmol/L; Blood Urea Nitrogen 9 mg/dL (7-17); Calcium 9.7 mg/dL (8.4-10.2); Carbon Dioxide 22 mmol/L (22-30); Chloride 110 mmol/L (98-107); Glucose 92 mg/dL (74-99); Non-African American GFR(CKD) 81 (>60 ml/min/1.73 sqM); Sodium 141 mmol/L (137-145)
[2024-05-09 16:42] LABS: Magnesium 2.1 mg/dL (1.6-2.3); Potassium 4.9 mmol/L (3.5-5.1)
[2024-05-09] MEDS: LORazepam 2 MG/ML INJ IV STA (17:20)
[2024-05-09] MEDS: HYDROmorphone 0.5 MG/0.5 ML SYRINGE IVP STA (17:22)
[2024-05-09 17:26] VITALS: BP 131/83; PULSE 80
== END 2024-05-09 17:38 | disposition home or self-care (01) ==
LOC: EC 14:45
CPT/HCPCS: 36415; 80048; 83605; 83735; 85025; 93005; 96374; 96375; 99284

== ENCOUNTER 2024-05-12 16:18 | Emergency (ER) | payer MEDICARE, BC ==
[2024-05-12 16:23] VITALS: BP 134/80; PULSE 120; RESP 18; TEMP 98.4
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
[2024-05-12] MEDS: ACETAMINOPHEN TAB 500 MG TAB PO STA (17:36)
[2024-05-12 18:21] LABS: African American GFR (CKD) >90 (>60 ml/min/1.73 sqM); Anion Gap 5 mmol/L; Blood Urea Nitrogen 10 mg/dL (7-17); Calcium 9.1 mg/dL (8.4-10.2); Carbon Dioxide 22 mmol/L (22-30); Chloride 114 mmol/L (98-107); Glucose 86 mg/dL (74-99); Magnesium 2.3 mg/dL (1.6-2.3); Non-African American GFR(CKD) >90 (>60 ml/min/1.73 sqM); Sodium 141 mmol/L (137-145); Total Bilirubin 0.6 mg/dL (0.2-1.3); Total Protein 6.7 g/dL (6.3-8.2)
[2024-05-12 18:22] LABS: ALT 44 U/L (4-34); AST 42 U/L (14-36); Alkaline Phosphatase 98 U/L (38-126); Potassium 4.9 mmol/L (3.5-5.1)
[2024-05-12 18:23] LABS: Basophils % (A) 0 %; Eosinophils # (A) 0.2 k/uL (0-0.7); Eosinophils % (A) 3 %; HCT 37.2 % (34.0-46.0); HGB 11.6 gm/dL (11.4-16.0); Hypochromasia Marked; Lymphocytes # (A) 1.2 k/uL (1.0-4.8); Lymphocytes % (A) 18 %; MCH 26.9 pg (25.0-35.0); MCHC 31.1 g/dL (31.0-37.0); MCV 86.4 fL (80.0-100.0); Mean Platelet Volume 7.7; Monocytes # (A) 0.3 k/uL (0-1.0); Monocytes % (A) 5 %; Neutrophils # (A) 4.9 k/uL (1.3-7.7); Neutrophils % (A) 72 %; Platelet Count 323 k/uL (150-450); RBC 4.31 m/uL (3.80-5.40); WBC 6.8 k/uL (3.8-10.6)
== END 2024-05-12 18:29 | disposition left against medical advice (07) ==
LOC: EC 16:18
CPT/HCPCS: 36415; 80053; 83735; 85025; 93005; 99284

== ENCOUNTER 2024-05-16 10:54 | Emergency (ER) | payer MEDICARE, BC ==
[2024-05-16 10:58] VITALS: TEMP 98.4
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
[2024-05-16 12:32] VITALS: BP 130/91; PULSE 102; RESP 20
--- NOTE | 2024-05-16 12:51 | CT ---
EXAMINATION TYPE: CT brain cspine wo con DATE OF EXAM: 05/16/2024 12:19 PM COMPARISON: 04/23/2024. CLINICAL INDICATION: Female, 33 years old with history of fall, head injury; fall, head injury x 5 da ys ago pain TECHNIQUE: Brain: Multiple axial CT images of the brain were obtained without IV contrast. Cspine: Axial CT images from the skull base to the inferior aspect of T2 we obtained without intraven ous contrast. Coronal and sagittal reformatted images were also reviewed. . CT DLP: 1431.4 mGycm, Automated exposure control for dose reduction was used. FINDINGS: Brain: Extra-axial spaces: No abnormal extra-axial fluid collections. Ventricular system: Within normal limits Cerebral parenchyma: No acute intraparenchymal hemorrhage or mass effect. The sutton-white junction is well differentiated. Cerebellum: Unremarkable. Mass effect: No evidence of midline shift. Intracranial vasculature: unremarkable Soft tissues: Normal. Calvarium/osseous structures: No depressed skull fracture. Paranasal sinuses and mastoid air cells: Clear. Visualized orbits: Orbital contents are intact. Cervical spine: Fracture: None. Osseous structures: Unremarkable Vertebral alignment: Within normal limits. Spinal canal/Neural Foramina: No evidence of significant spinal canal narrowing. No evidence for sign ificant neural foraminal stenosis. Neck soft tissues: Prevertebral soft tissues are within normal limits. Other: The airway is patent. The lung apices are clear. Metallic lead in the left shoulder. IMPRESSION: 1. No acute intracranial process. 2. No evidence of cervical spine fracture. [facility], , 05/16/2024 12:49 PM
== END 2024-05-16 12:52 | disposition left against medical advice (07) ==
LOC: EC 10:54
DX: S09.90XA Unspecified injury of head, initial encounter (principal); Z88.5 Allergy status to narcotic agent; Z88.6 Allergy status to analgesic agent; Z88.8 Allergy status to other drugs, medicaments and biological substances; Z53.29 Procedure and treatment not carried out because of patient's decision for other reasons; W22.03XA Walked into furniture, initial encounter
CPT/HCPCS: 70450; 72125; 99284

== ENCOUNTER 2024-06-12 22:08 | Emergency (ER) | payer MEDICARE, BC ==
[2024-06-12 22:15] VITALS: BP 122/79; PULSE 105; RESP 20; TEMP 97.8
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
[2024-06-12 23:55] LABS: Basophils % (A) 0 %; Eosinophils # (A) 0.2 k/uL (0-0.7); Eosinophils % (A) 2 %; HCT 34.4 % (34.0-46.0); HGB 10.8 gm/dL (11.4-16.0); Hypochromasia Marked; Lymphocytes # (A) 2.1 k/uL (1.0-4.8); Lymphocytes % (A) 18 %; MCH 26.4 pg (25.0-35.0); MCHC 31.5 g/dL (31.0-37.0); MCV 83.9 fL (80.0-100.0); Mean Platelet Volume 7.5; Monocytes # (A) 0.4 k/uL (0-1.0); Monocytes % (A) 4 %; Neutrophils # (A) 8.5 k/uL (1.3-7.7); Neutrophils % (A) 74 %; Platelet Count 311 k/uL (150-450); WBC 11.5 k/uL (3.8-10.6)
[2024-06-13 00:01] LABS: Appearance,Urine Cloudy (Clear); Bacteria,Urine Rare /hpf; Bilirubin,Urine Negative (Negative); Blood,Urine Negative (Negative); Budding Yeast,Urine Rare /hpf; Color,Urine Colorless; Glucose,Urine (UA) Negative (Negative); Ketones,Urine Negative (Negative); Leukocyte Esterase,Urine Negative (Negative); Mucus,Urine Rare /hpf; Nitrite,Urine Negative (Negative); Protein,Urine Negative (Negative); RBC,Urine <1 /hpf (0-5); Specific Gravity,Urine 1.014 (1.001-1.035); Squamous Epithelial Cell,Urine 2 /hpf (0-4); Urobilinogen,Urine <2.0 mg/dL (<2.0); WBC,Urine <1 /hpf (0-5)
[2024-06-13] MEDS: HYDROcodone/APAP 10-325MG 1 EACH TAB PO ONE (00:08)
--- NOTE | 2024-06-13 00:47 | XR ---
EXAM: XR Abdomen, 1 View CLINICAL HISTORY: ITS.REASON XR Reason: abdominal pain TECHNIQUE: Frontal view of the abdomen/pelvis. COMPARISON: August 31, 2021 FINDINGS: Intraperitoneal space: No free air. Gastrointestinal tract: Unremarkable. No dilation. Organs: Postoperative changes prior cholecystectomy. Bones/joints: Unremarkable. No acute fracture. IMPRESSION: No acute findings in the abdomen/pelvis.
[2024-06-13] MEDS: DICYCLOMINE 10 MG/ML 2 ML AMP IM STA (02:51)
[2024-06-13 03:57] LABS: ALT 20 U/L (4-34); AST 20 U/L (14-36); African American GFR (CKD) >90 (>60 ml/min/1.73 sqM); Albumin 3.7 g/dL (3.5-5.0); Alkaline Phosphatase 97 U/L (38-126); Amylase 46 U/L (30-110); Anion Gap 3 mmol/L; Blood Urea Nitrogen 20 mg/dL (7-17); Calcium 8.8 mg/dL (8.4-10.2); Carbon Dioxide 25 mmol/L (22-30); Chloride 111 mmol/L (98-107); Glucose 76 mg/dL (74-99); Lipase 170 U/L (23-300); Non-African American GFR(CKD) >90 (>60 ml/min/1.73 sqM); Potassium 3.9 mmol/L (3.5-5.1); Sodium 139 mmol/L (137-145); Total Bilirubin 0.3 mg/dL (0.2-1.3); Total Protein 6.1 g/dL (6.3-8.2)
== END 2024-06-13 04:13 | disposition home or self-care (01) ==
LOC: EC 22:08
DX: R10.12 Left upper quadrant pain (principal); Z88.8 Allergy status to other drugs, medicaments and biological substances; Z88.6 Allergy status to analgesic agent
CPT/HCPCS: 36415; 74018; 80053; 81001; 82150; 83605; 83690; 85025; 99284

== ENCOUNTER 2024-06-14 03:40 | Emergency (ER) | payer MEDICARE, BC ==
[2024-06-14 03:50] VITALS: RESP 16
[2024-06-14 04:09] LABS: Glucose,Whole Blood 73 mg/dL (70-110)
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
[2024-06-14] MEDS: ACETAMINOPHEN TAB 500 MG TAB PO STA (04:34)
[2024-06-14 05:34] LABS: Glucose,Whole Blood 92 mg/dL (70-110)
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
--- NOTE | 2024-06-14 05:56 | XR ---
EXAM: XR Thoracic Spine, 2 Views CLINICAL HISTORY: pt fell, describing left lower thor. Pain TECHNIQUE: Frontal and lateral views of the thoracic spine. COMPARISON: 12/18/22 FINDINGS: Vertebrae: Unremarkable. No fracture. Normal alignment. Disc spaces: No acute findings. No significant narrowing. Soft tissues: Cholecystectomy clips. Other findings: Partial gastrectomy sutures. IMPRESSION: No acute findings or substantial change.
--- NOTE | 2024-06-14 05:56 | XR ---
EXAM: XR Lumbosacral Spine, 2 or 3 Views CLINICAL HISTORY: pt fell, describing left lower thor. Pain TECHNIQUE: Frontal and lateral views of the lumbar spine and sacrum. COMPARISON: 08/30/2022 FINDINGS: Vertebrae: Unremarkable. No fracture. Normal alignment. Disc spaces: No acute findings. No significant narrowing. Soft tissues: Cholecystectomy clips. Other findings: Other findings: Partial gastrectomy sutures. IMPRESSION: No acute findings in the lumbar spine.
[2024-06-14] MEDS: diphenhydrAMINE 50 MG/ML 1 ML VIAL IM STA (06:29)
[2024-06-14] MEDS: KETOROLAC 15 MG/ML 1 ML VIAL IM STA (06:29)
[2024-06-14 06:46] VITALS: BP 118/82; PULSE 86; TEMP 98
== END 2024-06-14 06:38 | disposition left against medical advice (07) ==
LOC: EC 03:40
DX: G40.909 Epilepsy, unspecified, not intractable, without status epilepticus (principal); R51.9 Headache, unspecified; Z76.5 Malingerer [conscious simulation]; Z53.29 Procedure and treatment not carried out because of patient's decision for other reasons; Z88.5 Allergy status to narcotic agent; Z88.6 Allergy status to analgesic agent; Z88.8 Allergy status to other drugs, medicaments and biological substances
CPT/HCPCS: 99285; 96372 ×2; 36415; 93005; 72070; 72100; 70450; J1200; J1885

== ENCOUNTER 2024-07-08 18:01 | Emergency (ER) | payer BC, MEDICARE ==
[2024-07-08 18:26] VITALS: RESP 18
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
--- NOTE | 2024-07-08 19:18 | CT ---
EXAMINATION TYPE: CT brain wo con DATE OF EXAM: 07/08/2024 7:09 PM COMPARISON: Previous study 06/14/2024. CLINICAL INDICATION: Female, 34 years old with history of syncope, Syncope, history of seizures TECHNIQUE: Brain: Axial CT images of the brain were obtained with coronal and sagittal reformats created and rev iewed. Contrast used: None. Oral contrast used: None. CT DLP: 1096.4 mGycm, Automated exposure control for dose reduction was used. FINDINGS: Brain: Extra-axial spaces: No abnormal extra-axial fluid collections. Ventricular system: Within normal limits Cerebral parenchyma: No acute intraparenchymal hemorrhage or mass effect. The sutton-white junction is well differentiated. Cerebellum: Unremarkable. Mass effect: No evidence of midline shift. Intracranial vasculature: unremarkable Soft tissues: Normal. Calvarium/osseous structures: No depressed skull fracture. Paranasal sinuses and mastoid air cells: Mild scattered paranasal sinus disease. Visualized orbits: Orbital contents are intact. IMPRESSION: No acute intracranial process. [facility], , 07/08/2024 7:15 PM
[2024-07-08] MEDS: HYDROcodone/APAP 5-325MG 1 EACH TAB PO STA (19:23)
--- NOTE | 2024-07-08 20:47 | XR ---
EXAMINATION TYPE: XR shoulder complete LT DATE OF EXAM: 07/08/2024 8:41 PM COMPARISON: None. CLINICAL INDICATION: Female, 34 years old with history of fall; [facility] TECHNIQUE: XR shoulder complete LT; examined in AP, internally rotated and scapular Y projections. FINDINGS: No evidence of acute osseous pathology, joint dislocation, or soft tissue swelling. The remaining po rtions of the visualized chest are unremarkable. IMPRESSION: No acute osseous pathology. [facility], , 07/08/2024 8:45 PM
--- NOTE | 2024-07-08 20:47 | XR ---
EXAMINATION TYPE: XR ankle complete LT DATE OF EXAM: 07/08/2024 8:41 PM COMPARISON: None. CLINICAL INDICATION: Female, 34 years old with history of fall; [facility] TECHNIQUE: XR ankle complete LT; ankle is imaged in frontal, lateral and oblique projections. FINDINGS: There is no evidence of acute osseous pathology. These affect formation along the plantar calcaneal s urface. Mid foot degenerative changes noted on lateral view. No evidence of subluxation or dislocatio n. Kager's fat pad is intact. No radiopaque foreign bodies are identified. IMPRESSION: Left ankle subcutaneous swelling without acute fracture or dislocation. [facility], , 07/08/2024 8:45 PM
[2024-07-08 21:37] LABS: Basophils % (A) 0 %; Eosinophils # (A) 0.3 k/uL (0-0.7); Eosinophils % (A) 4 %; HCT 36.2 % (34.0-46.0); Hypochromasia Marked; Lymphocytes # (A) 2.1 k/uL (1.0-4.8); Lymphocytes % (A) 32 %; MCH 25.8 pg (25.0-35.0); MCHC 30.4 g/dL (31.0-37.0); MCV 85.1 fL (80.0-100.0); Mean Platelet Volume 7.3; Monocytes # (A) 0.4 k/uL (0-1.0); Monocytes % (A) 6 %; Neutrophils # (A) 3.5 k/uL (1.3-7.7); Neutrophils % (A) 55 %; Platelet Count 290 k/uL (150-450); RBC 4.26 m/uL (3.80-5.40); WBC 6.4 k/uL (3.8-10.6)
[2024-07-08 21:49] LABS: ALT 24 U/L (4-34); AST 21 U/L (14-36); African American GFR (CKD) 90 (>60 ml/min/1.73 sqM); Albumin 3.7 g/dL (3.5-5.0); Alkaline Phosphatase 115 U/L (38-126); Anion Gap 2 mmol/L; Blood Urea Nitrogen 13 mg/dL (7-17); Calcium 8.8 mg/dL (8.4-10.2); Carbon Dioxide 27 mmol/L (22-30); Chloride 110 mmol/L (98-107); Glucose 75 mg/dL (74-99); Lithium 0.9 mmol/L; Magnesium 2.5 mg/dL (1.6-2.3); Non-African American GFR(CKD) 78 (>60 ml/min/1.73 sqM); Potassium 4.4 mmol/L (3.5-5.1); Sodium 139 mmol/L (137-145); Total Bilirubin 0.1 mg/dL (0.2-1.3); Total Protein 5.7 g/dL (6.3-8.2)
[2024-07-08 21:50] LABS: Partial Thromboplastin Time 23.3 sec (22.0-30.0); Prothrombin Time 11.2 sec (10.0-12.5)
[2024-07-08 22:18] VITALS: BP 112/74; PULSE 78; TEMP 98.4
== END 2024-07-08 22:18 | disposition home or self-care (01) ==
LOC: EC 18:01
DX: S09.90XA Unspecified injury of head, initial encounter (principal); M25.512 Pain in left shoulder; M25.572 Pain in left ankle and joints of left foot; Z88.6 Allergy status to analgesic agent; Z88.1 Allergy status to other antibiotic agents; Z88.8 Allergy status to other drugs, medicaments and biological substances; W18.30XA Fall on same level, unspecified, initial encounter; Y92.39 Other specified sports and athletic area as the place of occurrence of the external cause
CPT/HCPCS: 36415; 70450; 80053; 80178; 83735; 84484; 85025; 85610; 85730; 93005; 99285

== ENCOUNTER 2024-07-20 18:33 | Emergency (ER) | payer BC, MEDICARE ==
[2024-07-20 19:32] VITALS: RESP 18; TEMP 98.2
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
[2024-07-20] MEDS: ONDANSETRON 4 MG/2 ML VIAL IVP STA (21:11)
[2024-07-20] MEDS: SODIUM CHLORIDE 0.9% 1,000 ML IV STA (21:11)
[2024-07-20] MEDS: FAMOTIDINE 20 MG/2 ML VIAL IV STA (21:11)
[2024-07-20 21:26] LABS: Anisocytosis Slight; Basophils % (A) 0 %; Eosinophils # (A) 0.2 k/uL (0-0.7); Eosinophils % (A) 2 %; HCT 38.8 % (34.0-46.0); HGB 11.8 gm/dL (11.4-16.0); Hypochromasia Marked; Lymphocytes # (A) 1.6 k/uL (1.0-4.8); Lymphocytes % (A) 18 %; MCH 25.5 pg (25.0-35.0); MCHC 30.4 g/dL (31.0-37.0); MCV 83.7 fL (80.0-100.0); Mean Platelet Volume 7.2; Monocytes # (A) 0.3 k/uL (0-1.0); Monocytes % (A) 3 %; Neutrophils # (A) 6.9 k/uL (1.3-7.7); Neutrophils % (A) 75 %; Platelet Count 297 k/uL (150-450); RBC 4.63 m/uL (3.80-5.40); RDW 16.4 % (11.5-15.5); WBC 9.3 k/uL (3.8-10.6)
[2024-07-20 21:51] LABS: ALT 25 U/L (4-34); AST 20 U/L (14-36); African American GFR (CKD) >90 (>60 ml/min/1.73 sqM); Albumin 4.3 g/dL (3.5-5.0); Alkaline Phosphatase 134 U/L (38-126); Anion Gap 10 mmol/L; Blood Urea Nitrogen 17 mg/dL (7-17); Calcium 9.3 mg/dL (8.4-10.2); Carbon Dioxide 23 mmol/L (22-30); Chloride 105 mmol/L (98-107); Glucose 85 mg/dL (74-99); Lipase 287 U/L (23-300); Non-African American GFR(CKD) >90 (>60 ml/min/1.73 sqM); Potassium 4.7 mmol/L (3.5-5.1); Sodium 138 mmol/L (137-145); Total Bilirubin 0.1 mg/dL (0.2-1.3); Total Protein 6.7 g/dL (6.3-8.2)
[2024-07-20] MEDS: MORPHINE SULFATE 4 MG/ML SYRINGE IVP STA (22:54)
[2024-07-20] MEDS: diphenhydrAMINE 50 MG/ML 1 ML VIAL IVP STA (23:02)
[2024-07-20 23:16] VITALS: BP 134/93; PULSE 83
== END 2024-07-20 23:21 | disposition home or self-care (01) ==
LOC: EC 18:33
DX: R10.9 Unspecified abdominal pain (principal); Z88.5 Allergy status to narcotic agent; Z88.6 Allergy status to analgesic agent; Z88.8 Allergy status to other drugs, medicaments and biological substances
CPT/HCPCS: 36415; 80053; 83690; 85025; 99284; 96374; 96375; 96361; J2270; J1200; J2405; J3490

== ENCOUNTER 2024-07-24 12:48 | Emergency (ER) | payer BC, MEDICARE ==
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
[2024-07-24] MEDS: ACETAMINOPHEN TAB 500 MG TAB PO STA (13:27)
[2024-07-24] MEDS: LORazepam 2 MG/ML INJ IV STA (13:27)
[2024-07-24 13:43] LABS: Anisocytosis Slight; Basophils % (A) 0 %; Eosinophils # (A) 0.3 k/uL (0-0.7); Eosinophils % (A) 4 %; HCT 35.8 % (34.0-46.0); HGB 11.2 gm/dL (11.4-16.0); Hypochromasia Moderate; Lymphocytes # (A) 2.3 k/uL (1.0-4.8); Lymphocytes % (A) 39 %; MCH 26.1 pg (25.0-35.0); MCHC 31.2 g/dL (31.0-37.0); MCV 83.6 fL (80.0-100.0); Mean Platelet Volume 9.3; Monocytes # (A) 0.3 k/uL (0-1.0); Monocytes % (A) 4 %; Neutrophils % (A) 50 %; Platelet Count 324 k/uL (150-450); RBC 4.28 m/uL (3.80-5.40)
[2024-07-24 13:54] LABS: ALT 22 U/L (4-34); AST 25 U/L (14-36); African American GFR (CKD) >90 (>60 ml/min/1.73 sqM); Albumin 4.1 g/dL (3.5-5.0); Alkaline Phosphatase 112 U/L (38-126); Anion Gap 8 mmol/L; Blood Urea Nitrogen 9 mg/dL (7-17); Calcium 9.2 mg/dL (8.4-10.2); Carbon Dioxide 24 mmol/L (22-30); Chloride 106 mmol/L (98-107); Glucose 75 mg/dL (74-99); Magnesium 2.1 mg/dL (1.6-2.3); Non-African American GFR(CKD) 84 (>60 ml/min/1.73 sqM); Potassium 4.4 mmol/L (3.5-5.1); Sodium 138 mmol/L (137-145); Total Bilirubin 0.1 mg/dL (0.2-1.3); Total Protein 6.4 g/dL (6.3-8.2)
[2024-07-24] MEDS: KETOROLAC 15 MG/ML 1 ML VIAL IVP STA (14:22)
[2024-07-24] MEDS: diphenhydrAMINE 50 MG/ML 1 ML VIAL IVP STA (14:22)
[2024-07-24 15:58] VITALS: BP 124/86; PULSE 78; RESP 16; TEMP 98.7
== END 2024-07-24 15:58 | disposition home or self-care (01) ==
LOC: EC 12:48
DX: R56.9 Unspecified convulsions (principal); Z88.6 Allergy status to analgesic agent; Z88.8 Allergy status to other drugs, medicaments and biological substances
CPT/HCPCS: 36415; 80053; 83605; 83735; 85025; 99284; 96374; 96375 ×2; J2060; J1200; J1885

== ENCOUNTER 2024-07-31 15:12 | Emergency (ER) | payer BC, MEDICARE ==
[2024-07-31 15:40] VITALS: RESP 18
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
[2024-07-31] MEDS: ONDANSETRON 4 MG/2 ML VIAL IVP STA (16:08)
[2024-07-31] MEDS: SODIUM CHLORIDE 0.9% 1,000 ML IV STA (16:09)
[2024-07-31] MEDS: ONDANSETRON ODT 4 MG TAB PO STA (16:16)
[2024-07-31] MEDS: droPERidol 2.5 MG/ML VIAL IM ONE (16:17)
[2024-07-31] MEDS: HYDROmorphone 1 MG/ML 1 ML SYRINGE IM STA (16:18)
[2024-07-31] MEDS ORDERED: diphenhydrAMINE 50 MG CAP PO STA (17:09)
[2024-07-31] MEDS: diphenhydrAMINE 50 MG/ML 1 ML VIAL IM STA (17:16)
[2024-07-31 17:21] VITALS: BP 115/81; PULSE 90; TEMP 97.9
== END 2024-07-31 17:21 | disposition home or self-care (01) ==
LOC: EC 15:12
DX: K08.89 Other specified disorders of teeth and supporting structures (principal); Z88.6 Allergy status to analgesic agent; Z88.5 Allergy status to narcotic agent; Z88.8 Allergy status to other drugs, medicaments and biological substances
CPT/HCPCS: 99283; 96372 ×2; J1200; J1171

== ENCOUNTER 2024-08-01 17:25 | Emergency (ER) | payer BC, MEDICARE ==
[2024-08-01 17:29] VITALS: BP 133/82; PULSE 78; RESP 20; TEMP 97.5
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
[2024-08-01] MEDS: ACETAMINOPHEN TAB 325 MG TAB PO STA (17:53)
--- NOTE | 2024-08-01 18:11 | XR ---
EXAMINATION TYPE: XR ankle complete RT DATE OF EXAM: 08/01/2024 5:54 PM COMPARISON: 01/11/2024 CLINICAL INDICATION: Female, 34 years old with history of right ankle injury; PHH, pain TECHNIQUE: XR ankle complete RT; frontal, lateral and oblique projections. FINDINGS: There is no evidence of acute osseous pathology. No evidence of subluxation or dislocation. Kager's fat pad is intact. No radiopaque foreign bodies are identified. Fixation hardware in the calcaneus ap pears intact. There remains lucency to prior fracture site. IMPRESSION: 1. No evidence of acute fracture. 2. Subcutaneous swelling around the ankle likely secondary to underlying soft tissue injury. 3. Remote injury to the calcaneus with hardware in place. Hardware appears intact. [facility], , 08/01/2024 6:09 PM
== END 2024-08-01 19:04 | disposition home or self-care (01) ==
LOC: EC 17:25
DX: S93.401A Sprain of unspecified ligament of right ankle, initial encounter (principal); Z88.5 Allergy status to narcotic agent; Z88.6 Allergy status to analgesic agent; Z91.011 Allergy to milk products; Z88.8 Allergy status to other drugs, medicaments and biological substances; W00.0XXA Fall on same level due to ice and snow, initial encounter; Y93.01 Activity, walking, marching and hiking
CPT/HCPCS: 99283

== ENCOUNTER 2024-08-10 14:37 | Emergency (ER) | payer BC, MEDICARE ==
[2024-08-10 14:46] VITALS: RESP 18
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
[2024-08-10 15:23] LABS: Anisocytosis Slight; Basophils % (A) 0 %; Eosinophils # (A) 0.1 k/uL (0-0.7); Eosinophils % (A) 2 %; HCT 38.3 % (34.0-46.0); HGB 11.5 gm/dL (11.4-16.0); Hypochromasia Marked; Lymphocytes # (A) 1.7 k/uL (1.0-4.8); Lymphocytes % (A) 22 %; MCH 25.3 pg (25.0-35.0); MCHC 30.1 g/dL (31.0-37.0); Mean Platelet Volume 6.7; Monocytes # (A) 0.3 k/uL (0-1.0); Monocytes % (A) 4 %; Neutrophils # (A) 5.4 k/uL (1.3-7.7); Neutrophils % (A) 70 %; Platelet Count 374 k/uL (150-450); RBC 4.56 m/uL (3.80-5.40); RDW 17.1 % (11.5-15.5); WBC 7.7 k/uL (3.8-10.6)
[2024-08-10 15:34] LABS: ALT 33 U/L (4-34); AST 34 U/L (14-36); African American GFR (CKD) >90 (>60 ml/min/1.73 sqM); Albumin 4.2 g/dL (3.5-5.0); Alkaline Phosphatase 131 U/L (38-126); Anion Gap 8 mmol/L; Blood Urea Nitrogen 14 mg/dL (7-17); Calcium 9.7 mg/dL (8.4-10.2); Carbon Dioxide 29 mmol/L (22-30); Chloride 102 mmol/L (98-107); Glucose 79 mg/dL (74-99); Magnesium 2.1 mg/dL (1.6-2.3); Non-African American GFR(CKD) >90 (>60 ml/min/1.73 sqM); Potassium 4.5 mmol/L (3.5-5.1); Sodium 139 mmol/L (137-145); Total Bilirubin 0.3 mg/dL (0.2-1.3); Total Protein 6.8 g/dL (6.3-8.2)
[2024-08-10] MEDS: diphenhydrAMINE 50 MG/ML 1 ML VIAL IM STA (16:03)
[2024-08-10] MEDS: METOCLOPRAMIDE 5 MG/ML 2 ML VIAL IVP STA (16:03)
[2024-08-10] MEDS: levETIRAcetam IV 500 MG/5 ML VIAL IVP STA (16:04)
[2024-08-10] MEDS: SODIUM CHLORIDE 0.9% 500 ML 500 ML IV STA (16:04)
[2024-08-10] MEDS: HYDROmorphone 1 MG/ML 1 ML SYRINGE IVP STA (16:08)
[2024-08-10 16:48] LABS: Appearance,Urine Clear (Clear); Bilirubin,Urine Negative (Negative); Blood,Urine Negative (Negative); Color,Urine Colorless; Glucose,Urine (UA) Negative (Negative); Ketones,Urine Negative (Negative); Leukocyte Esterase,Urine Negative (Negative); Nitrite,Urine Negative (Negative); Protein,Urine Negative (Negative); Urobilinogen,Urine <2.0 mg/dL (<2.0)
[2024-08-10] MEDS: ACETAMINOPHEN TAB 325 MG TAB PO STA (18:11)
[2024-08-10] MEDS: FAMOTIDINE 20 MG/2 ML VIAL IV STA (18:12)
[2024-08-10] MEDS: diphenhydrAMINE 50 MG/ML 1 ML VIAL IVP STA (18:12)
[2024-08-10] MEDS: KETOROLAC 15 MG/ML 1 ML VIAL IVP STA (18:12)
[2024-08-10 18:41] VITALS: BP 126/80; PULSE 90; TEMP 98.1
== END 2024-08-10 18:43 | disposition home or self-care (01) ==
LOC: EC 14:37
DX: G40.909 Epilepsy, unspecified, not intractable, without status epilepticus (principal); M62.830 Muscle spasm of back; R00.0 Tachycardia, unspecified; Z88.5 Allergy status to narcotic agent; Z88.6 Allergy status to analgesic agent; Z91.011 Allergy to milk products
CPT/HCPCS: 36415; 93005; 80053; 83735; 85025; 81003; 81025; 99284; 96374; 96375; 96372; 96361; J1200; J2765; J3490; J1171; J1953; J1885

== ENCOUNTER 2024-08-11 15:52 | Emergency (ER) | payer BC, MEDICARE ==
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
[2024-08-11 17:50] LABS: Anisocytosis Slight; Basophils % (A) 0 %; Eosinophils % (A) 3 %; HCT 36.4 % (34.0-46.0); HGB 11.2 gm/dL (11.4-16.0); Hypochromasia Marked; Lymphocytes % (A) 19 %; MCH 25.9 pg (25.0-35.0); MCHC 30.9 g/dL (31.0-37.0); MCV 83.6 fL (80.0-100.0); Mean Platelet Volume 6.6; Monocytes % (A) 4 %; Neutrophils % (A) 73 %; Platelet Count 408 k/uL (150-450); RBC 4.35 m/uL (3.80-5.40); RDW 17.4 % (11.5-15.5); WBC 8.6 k/uL (3.8-10.6)
[2024-08-11 17:51] LABS: Eosinophils # (A) 0.3 k/uL (0-0.7); Lymphocytes # (A) 1.6 k/uL (1.0-4.8); Monocytes # (A) 0.3 k/uL (0-1.0); Neutrophils # (A) 6.3 k/uL (1.3-7.7)
[2024-08-11 17:59] LABS: African American GFR (CKD) >90 (>60 ml/min/1.73 sqM); Anion Gap 10 mmol/L; Blood Urea Nitrogen 12 mg/dL (7-17); Calcium 9.7 mg/dL (8.4-10.2); Carbon Dioxide 23 mmol/L (22-30); Chloride 105 mmol/L (98-107); Glucose 83 mg/dL (74-99); Non-African American GFR(CKD) >90 (>60 ml/min/1.73 sqM); Potassium 4.6 mmol/L (3.5-5.1); Sodium 138 mmol/L (137-145)
[2024-08-11 18:08] VITALS: BP 133/88; PULSE 87; RESP 16; TEMP 98.4
[2024-08-11] MEDS: HYDROmorphone 1 MG/ML 1 ML SYRINGE IVP STA (18:09)
[2024-08-11] MEDS: LORazepam 2 MG/ML INJ IV STA (18:12)
== END 2024-08-11 18:15 | disposition home or self-care (01) ==
LOC: EC 15:52
DX: G40.909 Epilepsy, unspecified, not intractable, without status epilepticus (principal); Z88.5 Allergy status to narcotic agent; Z88.6 Allergy status to analgesic agent; Z88.8 Allergy status to other drugs, medicaments and biological substances; Z91.011 Allergy to milk products
CPT/HCPCS: 36415; 80048; 85025; 99284; 96374; 96375; J2060; J1171

== ENCOUNTER 2024-09-05 09:23 | Emergency (ER) | payer BC, MEDICARE ==
[2024-09-05 09:43] VITALS: RESP 18
[2024-09-05] MEDS: HYDROmorphone 1 MG/ML 1 ML SYRINGE IM STA (10:08)
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
--- NOTE | 2024-09-05 11:15 | XR ---
EXAMINATION TYPE: XR foot complete LT DATE OF EXAM: 09/05/2024 10:29 AM COMPARISON: 03/24/2012 CLINICAL INDICATION: Female, 34 years old with history of pain, inversion, pain TECHNIQUE: 3 view(s) obtained. FINDINGS: Calcaneal heel repair is evident. Plantar calcaneal heel spur is present. No acute fracture or dislocation. Mild hallux valgus deformity is present first digit. Joint spaces a re preserved. Soft tissues appear normal. Follow up exams can be performed 7-10 days from acute trauma for continued pain. IMPRESSION: 1. No acute osseous abnormality left foot. 2. Old calcaneal heel repair. 3. Mild hallux valgus deformity first digit [facility], , 09/05/2024 11:13 AM
--- NOTE | 2024-09-05 11:18 | XR ---
EXAMINATION TYPE: XR ankle complete LT DATE OF EXAM: 09/05/2024 10:29 AM COMPARISON: 08/30/2024 CLINICAL INDICATION: Female, 34 years old with history of pain, inversion, pain, fall in shower TECHNIQUE: 3 view(s) obtained. FINDINGS: Ankle mortise is intact. There is persistent soft tissue swelling over the medial malleolus, slightly improved over the interval. No acute fracture or dislocation evident. Prior calcaneal heel fracture repair evident. Follow up exams can be performed 7-10 days from acute trauma for continued pain. IMPRESSION: 1. Soft tissue swelling medial malleolus. 2. No acute osseous abnormality. [facility], , 09/05/2024 11:16 AM
[2024-09-05 12:05] VITALS: BP 122/77; PULSE 90; TEMP 98
== END 2024-09-05 12:05 | disposition home or self-care (01) ==
LOC: EC 09:23
DX: S93.602A Unspecified sprain of left foot, initial encounter (principal); Z88.5 Allergy status to narcotic agent; Z88.6 Allergy status to analgesic agent; Z91.011 Allergy to milk products; Z88.8 Allergy status to other drugs, medicaments and biological substances; X50.0XXA Overexertion from strenuous movement or load, initial encounter
CPT/HCPCS: 73610; 73630; 99283; J1171

== ENCOUNTER 2024-09-28 13:32 | Emergency (ER) | payer BC, MEDICARE ==
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
[2024-09-28 14:08] VITALS: RESP 17; TEMP 97.5
--- NOTE | 2024-09-28 14:44 | XR ---
EXAMINATION TYPE: XR chest 2V DATE OF EXAM: 09/28/2024 2:23 PM COMPARISON: Chest radiographs from 04/23/2024 CLINICAL INDICATION: Female, 34 years old with history of Confusion; [facility] TECHNIQUE: XR chest 2V Frontal and lateral views of the chest. FINDINGS: Lungs/Pleura: There is no evidence of pleural effusion, focal consolidation, or pneumothorax. Pulmonary vascularity: Unremarkable. Heart/mediastinum: Cardiomediastinal silhouette is unremarkable. Musculoskeletal: No acute osseous pathology. Other findings: Stimulator device with leads terminating in the neck. IMPRESSION: No acute cardiopulmonary disease/process. [facility], , 09/28/2024 2:41 PM
[2024-09-28 15:15] LABS: ALT 29 U/L (4-34); AST 25 U/L (14-36); African American GFR (CKD) >90 (>60 ml/min/1.73 sqM); Albumin 3.8 g/dL (3.5-5.0); Alkaline Phosphatase 106 U/L (38-126); Anion Gap 9 mmol/L; Blood Urea Nitrogen 12 mg/dL (7-17); Calcium 9.2 mg/dL (8.4-10.2); Carbon Dioxide 23 mmol/L (22-30); Chloride 106 mmol/L (98-107); Glucose 81 mg/dL (74-99); Non-African American GFR(CKD) >90 (>60 ml/min/1.73 sqM); Potassium 4.3 mmol/L (3.5-5.1); Sodium 138 mmol/L (137-145); Total Bilirubin 0.4 mg/dL (0.2-1.3); Total Protein 6.1 g/dL (6.3-8.2)
[2024-09-28 15:16] LABS: Basophils % (A) 0 %; Eosinophils # (A) 0.3 k/uL (0-0.7); Eosinophils % (A) 5 %; HCT 40.1 % (34.0-46.0); HGB 11.5 gm/dL (11.4-16.0); Hypochromasia Marked; Lymphocytes # (A) 1.6 k/uL (1.0-4.8); Lymphocytes % (A) 30 %; MCH 25.5 pg (25.0-35.0); MCHC 28.6 g/dL (31.0-37.0); MCV 89.1 fL (80.0-100.0); Mean Platelet Volume 7.4; Monocytes # (A) 0.3 k/uL (0-1.0); Monocytes % (A) 5 %; Neutrophils # (A) 3.1 k/uL (1.3-7.7); Neutrophils % (A) 57 %; RDW 15.5 % (11.5-15.5); WBC 5.4 k/uL (3.8-10.6)
[2024-09-28 15:57] LABS: Platelet Count 337 k/uL (150-450)
[2024-09-28 17:49] LABS: Appearance,Urine Clear (Clear); Bilirubin,Urine Negative (Negative); Blood,Urine Negative (Negative); Color,Urine Yellow; Glucose,Urine (UA) Negative (Negative); Hyaline Casts,Urine 3 /lpf (0-2); Ketones,Urine Negative (Negative); Leukocyte Esterase,Urine Negative (Negative); Mucus,Urine Many /hpf; Nitrite,Urine Negative (Negative); Protein,Urine 1+ (Negative); RBC,Urine <1 /hpf (0-5); Specific Gravity,Urine 1.036 (1.001-1.035); Squamous Epithelial Cell,Urine 2 /hpf (0-4); Urobilinogen,Urine <2.0 mg/dL (<2.0); WBC,Urine 2 /hpf (0-5)
[2024-09-28 17:55] LABS: Amphetamine Screen,Urine Not Detected (NotDetected); Barbiturate Screen,Urine Detected (NotDetected); Benzodiazepines Screen,Urine Detected (NotDetected); Cocaine Screen,Urine Not Detected (NotDetected); Methadone Screen, Urine Not Detected (NotDetected); Opiate Screen,Urine Detected (NotDetected); Oxycodone Screen, Urine Detected (NotDetected); Phencyclidine Screen,Urine Not Detected (NotDetected); Tricyclic Antidepressant,Urine Detected (NotDetected); Urn Cannabinoid Scrn Detected (NotDetected)
[2024-09-28] MEDS: diphenhydrAMINE 50 MG/ML 1 ML VIAL IVP STA (20:30)
[2024-09-28] MEDS: KETOROLAC 15 MG/ML 1 ML VIAL IVP STA (20:31)
[2024-09-28 20:32] VITALS: BP 132/76; PULSE 78
== END 2024-09-28 20:32 | disposition home or self-care (01) ==
LOC: EC 13:32
DX: M79.10 Myalgia, unspecified site (principal); Z88.5 Allergy status to narcotic agent; Z88.6 Allergy status to analgesic agent; Z88.8 Allergy status to other drugs, medicaments and biological substances; Z91.011 Allergy to milk products
CPT/HCPCS: 36415; 93005; 80053; 85025; 81001; 80306; 71046; 99285; 96374; 96375; J1200; J1885

== ENCOUNTER 2024-10-01 20:41 | Emergency (ER) | payer BC, MEDICARE ==
[2024-10-01 21:00] VITALS: TEMP 98.3
[2024-10-01] MEDS: HYDROcodone/APAP 5-325MG 1 EACH TAB PO STA (21:48)
[2024-10-01 23:11] VITALS: BP 124/86; PULSE 94; RESP 16
--- NOTE | 2024-10-02 00:21 | CT ---
EXAM: CT Cervical Spine Without Intravenous Contrast CLINICAL HISTORY: ITS.REASON CT Reason: fall injury TECHNIQUE: Axial computed tomography images of the cervical spine without intravenous contrast. CTDI is 13.6 mGy and DLP is 697.4 mGy-cm. This CT exam was performed using one or more of the following dose reduction techniques: automated exposure control, adjustment of the mA and/or kV according to patient size, and/or use of iterative reconstruction technique. COMPARISON: No relevant prior studies available. FINDINGS: Vertebrae: Unremarkable. No acute fracture. Discs/spinal canal/neural foramina: No acute findings. No spinal canal stenosis. Soft tissues: Unremarkable. IMPRESSION: No evidence of acute cervical spine pathology. EXAM: CT Thoracic Spine Without Intravenous Contrast CLINICAL HISTORY: ITS.REASON CT Reason: fall injury TECHNIQUE: Axial computed tomography images of the thoracic spine without intravenous contrast. CTDI is 13.6 mGy and DLP is 697.4 mGy-cm. This CT exam was performed using one or more of the following dose reduction techniques: automated exposure control, adjustment of the mA and/or kV according to patient size, and/or use of iterative reconstruction technique. COMPARISON: No relevant prior studies available. FINDINGS: Vertebrae: Unremarkable. No acute fracture. Discs/spinal canal/neural foramina: No acute findings. No spinal canal stenosis. Soft tissues: Left nephrolithiasis. IMPRESSION: No evidence of acute thoracic spine pathology.
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
== END 2024-10-01 23:19 | disposition home or self-care (01) ==
LOC: EC 20:41
DX: S16.1XXA Strain of muscle, fascia and tendon at neck level, initial encounter (principal); Z91.011 Allergy to milk products; Z88.6 Allergy status to analgesic agent; Z88.8 Allergy status to other drugs, medicaments and biological substances; W10.8XXA Fall (on) (from) other stairs and steps, initial encounter; Y92.009 Unspecified place in unspecified non-institutional (private) residence as the place of occurrence of the external cause
CPT/HCPCS: 72125; 72128; 99284; 99285

== ENCOUNTER 2024-10-03 00:30 | Emergency (ER) | payer BC, MEDICARE ==
[2024-10-03 00:41] VITALS: TEMP 97.6
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
[2024-10-03] MEDS: SODIUM CHLORIDE 0.9% 1,000 ML IV STA (01:45)
[2024-10-03] MEDS: ACETAMINOPHEN TAB 500 MG TAB PO STA (01:46)
[2024-10-03] MEDS: diphenhydrAMINE 50 MG/ML 1 ML VIAL IVP STA ×2 (01:47→02:36)
[2024-10-03 02:01] LABS: Basophils % (A) 0 %; Eosinophils # (A) 0.2 k/uL (0-0.7); Eosinophils % (A) 3 %; HCT 33.6 % (34.0-46.0); HGB 10.3 gm/dL (11.4-16.0); Hypochromasia Marked; Lymphocytes % (A) 32 %; MCH 26.2 pg (25.0-35.0); MCHC 30.7 g/dL (31.0-37.0); MCV 85.3 fL (80.0-100.0); Mean Platelet Volume 6.8; Monocytes # (A) 0.3 k/uL (0-1.0); Monocytes % (A) 5 %; Neutrophils # (A) 3.4 k/uL (1.3-7.7); Neutrophils % (A) 55 %; Platelet Count 304 k/uL (150-450); RBC 3.94 m/uL (3.80-5.40); RDW 15.3 % (11.5-15.5); WBC 6.2 k/uL (3.8-10.6)
[2024-10-03] MEDS: KETOROLAC 15 MG/ML 1 ML VIAL IVP STA (02:37)
[2024-10-03 02:39] LABS: ALT 40 U/L (4-34); AST 34 U/L (14-36); African American GFR (CKD) >90 (>60 ml/min/1.73 sqM); Albumin 3.2 g/dL (3.5-5.0); Alkaline Phosphatase 95 U/L (38-126); Anion Gap 10 mmol/L; Blood Urea Nitrogen 6 mg/dL (7-17); Calcium 9.2 mg/dL (8.4-10.2); Carbon Dioxide 20 mmol/L (22-30); Chloride 109 mmol/L (98-107); Glucose 107 mg/dL (74-99); Magnesium 1.7 mg/dL (1.6-2.3); Non-African American GFR(CKD) >90 (>60 ml/min/1.73 sqM); Potassium 3.4 mmol/L (3.5-5.1); Sodium 139 mmol/L (137-145); Total Bilirubin 0.3 mg/dL (0.2-1.3); Total Protein 5.4 g/dL (6.3-8.2)
[2024-10-03] MEDS: POTASSIUM CHLORIDE ER 20 MEQ TAB.ER PO STA (02:45)
[2024-10-03 03:14] VITALS: BP 113/77; PULSE 101; RESP 17
== END 2024-10-03 03:14 | disposition home or self-care (01) ==
LOC: EC 00:30
DX: E87.6 Hypokalemia (principal); M62.838 Other muscle spasm; Z88.5 Allergy status to narcotic agent; Z88.6 Allergy status to analgesic agent; Z91.011 Allergy to milk products
CPT/HCPCS: 36415; 80053; 83735; 85025; 99283; 96374; 96375; 96376; 96361; J1200; J1885

== ENCOUNTER 2024-10-25 13:23 | Emergency (ER) | payer BC, MEDICARE ==
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
[2024-10-25 14:14] LABS: Basophils # (A) 0.03 10*3/uL (0.00-0.10); Basophils % (A) 0.5 %; Eosinophils # (A) 0.35 10*3/uL (0.04-0.35); Eosinophils % (A) 6.2 %; HGB 10.8 g/dL (12.0-15.0); Lymphocytes # (A) 1.23 10*3/uL (0.90-5.00); Lymphocytes % (A) 21.6 %; MCH 25.4 pg (27.0-32.0); MCV 84.5 fL (80.0-97.0); Mean Platelet Volume 8.4 fL (9.5-12.2); Monocytes # (A) 0.38 10*3/uL (0.20-1.00); Monocytes % (A) 6.7 %; Neutrophils # (A) 3.68 10*3/uL (1.80-7.70); Neutrophils % (A) 64.6 %; Platelet Count 329 10*3/uL (140-440); RBC 4.26 10*6/uL (4.10-5.20); RDW 15.2 % (11.5-14.5); WBC 5.69 10*3/uL (4.50-10.00)
[2024-10-25 14:24] LABS: ALT 39 U/L (4-34); AST 32 U/L (14-36); African American GFR (CKD) >90 (>60 ml/min/1.73 sqM); Albumin 3.7 g/dL (3.5-5.0); Alkaline Phosphatase 144 U/L (38-126); Anion Gap 7 mmol/L; Blood Urea Nitrogen 12 mg/dL (7-17); Calcium 9.6 mg/dL (8.4-10.2); Carbon Dioxide 27 mmol/L (22-30); Chloride 103 mmol/L (98-107); Glucose 84 mg/dL (74-99); Lipase 71 U/L (23-300); Non-African American GFR(CKD) >90 (>60 ml/min/1.73 sqM); Potassium 4.6 mmol/L (3.5-5.1); Sodium 137 mmol/L (137-145); Total Bilirubin 0.5 mg/dL (0.2-1.3); Total Protein 6.2 g/dL (6.3-8.2)
[2024-10-25 14:42] VITALS: BP 138/77; PULSE 98; RESP 18; TEMP 98.2
[2024-10-25] MEDS: droPERidol 5 MG/2 ML VIAL IVP ONE (14:55)
== END 2024-10-25 15:12 | disposition home or self-care (01) ==
LOC: EC 13:23
DX: R11.10 Vomiting, unspecified (principal); Z91.011 Allergy to milk products; Z88.6 Allergy status to analgesic agent; Z88.8 Allergy status to other drugs, medicaments and biological substances
CPT/HCPCS: 36415; 93005; 80053; 83690; 85025; 99284; 96374; J1790

== ENCOUNTER 2024-10-26 09:18 | Emergency (ER) | payer BC, MEDICARE ==
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
[2024-10-26 10:30] LABS: Basophils # (A) 0.05 10*3/uL (0.00-0.10); Basophils % (A) 0.7 %; Eosinophils # (A) 0.24 10*3/uL (0.04-0.35); Eosinophils % (A) 3.4 %; HCT 38.6 % (37.2-46.3); HGB 12.1 g/dL (12.0-15.0); Lymphocytes # (A) 0.96 10*3/uL (0.90-5.00); Lymphocytes % (A) 13.4 %; MCH 25.7 pg (27.0-32.0); MCHC 31.3 g/dL (32.0-37.0); Mean Platelet Volume 9.8 fL (9.5-12.2); Monocytes # (A) 0.35 10*3/uL (0.20-1.00); Monocytes % (A) 4.9 %; Neutrophils # (A) 5.51 10*3/uL (1.80-7.70); Platelet Count 366 10*3/uL (140-440); RBC 4.71 10*6/uL (4.10-5.20); RDW 15.1 % (11.5-14.5); WBC 7.15 10*3/uL (4.50-10.00)
[2024-10-26 10:37] LABS: ALT 37 U/L (4-34); African American GFR (CKD) >90 (>60 ml/min/1.73 sqM); Amylase 36 U/L (30-110); Anion Gap 8 mmol/L; Blood Urea Nitrogen 16 mg/dL (7-17); Calcium 9.5 mg/dL (8.4-10.2); Carbon Dioxide 23 mmol/L (22-30); Chloride 106 mmol/L (98-107); Glucose 83 mg/dL (74-99); Lipase 93 U/L (23-300); Non-African American GFR(CKD) >90 (>60 ml/min/1.73 sqM); Sodium 137 mmol/L (137-145); Total Bilirubin 0.9 mg/dL (0.2-1.3); Total Protein 6.8 g/dL (6.3-8.2)
--- NOTE | 2024-10-26 10:37 | XR ---
EXAMINATION TYPE: XR KUB DATE OF EXAM: 10/26/2024 10:25 AM COMPARISON: 06/12/2024 CLINICAL INDICATION: Female, 34 years old with history of abdominal pain; PHH, pain TECHNIQUE: One radiographic view of the abdomen was obtained. FINDINGS: Lung bases are clear. No evidence for free intraperitoneal air. Moderate to large stool bur den throughout. No dilated small bowel loops. No air-fluid levels. Cholecystectomy clips. IMPRESSION: Moderate to large stool burden. Correlate for constipation. Nonobstructive bowel gas pattern. No free air. [facility], Workstation: [email or web address], 10/26/2024 10:35 AM
[2024-10-26 10:38] LABS: AST 51 U/L (14-36); Alkaline Phosphatase 138 U/L (38-126); Potassium 5.4 mmol/L (3.5-5.1)
[2024-10-26 10:39] LABS: Prothrombin Time 10.8 sec (10.0-12.5)
[2024-10-26 10:46] LABS: Partial Thromboplastin Time 19.3 sec (22.0-30.0)
[2024-10-26] MEDS: FAMOTIDINE 20 MG/2 ML VIAL IV STA (11:15)
[2024-10-26] MEDS: ONDANSETRON 4 MG/2 ML VIAL IVP STA (11:16)
--- NOTE | 2024-10-26 11:32 | US ---
EXAMINATION TYPE: US abdomen limited DATE OF EXAM: 10/26/2024 COMPARISON: 06/09/2019 CLINICAL INDICATION: Female, 34 years old with history of pain; RUQ pain. Cholecystectomy TECHNIQUE: Grayscale and color Doppler imaging of the right upper quadrant was performed. FINDINGS: EXAM MEASUREMENTS: Liver Length: 12.8 cm Gallbladder: Surgically absent CBD: 0.34 cm Right Kidney: 8.2 x 5.3 x 4.7 cm [employer]PERVISOR NOTES:limited due to bowel gas and body habitus Pancreas: tail obscured by overlying bowel gas Liver: Slightly echogenic. No focal lesion seen. Gallbladder: Surgically absent Evidence for sonographic Lang's sign: No CBD: wnl Right Kidney: inf pole limited due to bowel gas. No hydronephrosis. IMPRESSION: 1. Exam limitations as above. There may be at least mild fatty infiltration of the liver. 2. Status post cholecystectomy. No biliary ductal dilatation. [facility], Workstation: [email or web address], 10/26/2024 11:30 AM
[2024-10-26] MEDS: bisacodyL 10 MG SUPP RECTAL STA (12:18)
[2024-10-26] MEDS: LACTULOSE 20 GM/30 ML CUP PO ONE (12:18)
[2024-10-26] MEDS: KETOROLAC 15 MG/ML 1 ML VIAL IVP STA (12:18)
[2024-10-26] MEDS: diphenhydrAMINE 50 MG/ML 1 ML VIAL IVP STA (12:18)
[2024-10-26 12:38] VITALS: BP 133/97; PULSE 98; RESP 17; TEMP 97.7
== END 2024-10-26 12:35 | disposition home or self-care (01) ==
LOC: EC 09:18
DX: G89.29 Other chronic pain (principal); R10.9 Unspecified abdominal pain; Z88.6 Allergy status to analgesic agent; Z88.5 Allergy status to narcotic agent; Z91.011 Allergy to milk products; Z88.8 Allergy status to other drugs, medicaments and biological substances
CPT/HCPCS: 36415; 80053; 82150; 83690; 85025; 85610; 85730; 74018; 76705; 99284; 96374; 96375; J1200; J2405; J1885

== ENCOUNTER 2024-10-28 16:27 | Emergency (ER) | payer BC, MEDICARE ==
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
[2024-10-28] MEDS: ONDANSETRON 4 MG/2 ML VIAL IVP STA (20:13)
[2024-10-28] MEDS: FAMOTIDINE 20 MG/2 ML VIAL IV STA (20:14)
[2024-10-28] MEDS: FAMOTIDINE 20 MG TAB PO STA (20:18)
[2024-10-28] MEDS: ONDANSETRON 4 MG/2 ML VIAL IM STA (20:18)
[2024-10-28 20:19] LABS: Basophils # (A) 0.04 10*3/uL (0.00-0.10); Basophils % (A) 0.6 %; Eosinophils # (A) 0.26 10*3/uL (0.04-0.35); Eosinophils % (A) 4.1 %; HCT 33.6 % (37.2-46.3); HGB 10.2 g/dL (12.0-15.0); Lymphocytes # (A) 1.78 10*3/uL (0.90-5.00); Lymphocytes % (A) 28.2 %; MCH 25.6 pg (27.0-32.0); MCHC 30.4 g/dL (32.0-37.0); MCV 84.4 fL (80.0-97.0); Mean Platelet Volume 9.4 fL (9.5-12.2); Monocytes # (A) 0.43 10*3/uL (0.20-1.00); Monocytes % (A) 6.8 %; Neutrophils # (A) 3.78 10*3/uL (1.80-7.70); Platelet Count 334 10*3/uL (140-440); RBC 3.98 10*6/uL (4.10-5.20); RDW 15.7 % (11.5-14.5); WBC 6.31 10*3/uL (4.50-10.00)
[2024-10-28 20:36] LABS: ALT 31 U/L (4-34); African American GFR (CKD) >90 (>60 ml/min/1.73 sqM); Amylase 39 U/L (30-110); Anion Gap 7 mmol/L; Blood Urea Nitrogen 8 mg/dL (7-17); Calcium 9.1 mg/dL (8.4-10.2); Carbon Dioxide 21 mmol/L (22-30); Chloride 107 mmol/L (98-107); Glucose 80 mg/dL (74-99); Lipase 138 U/L (23-300); Non-African American GFR(CKD) >90 (>60 ml/min/1.73 sqM); Sodium 135 mmol/L (137-145)
[2024-10-28 20:41] LABS: AST 49 U/L (14-36); Albumin 3.7 g/dL (3.5-5.0); Alkaline Phosphatase 149 U/L (38-126); Potassium 4.9 mmol/L (3.5-5.1); Prothrombin Time 10.9 sec (10.0-12.5); Total Bilirubin 0.8 mg/dL (0.2-1.3); Total Protein 6.2 g/dL (6.3-8.2)
[2024-10-28 20:44] LABS: Partial Thromboplastin Time 21.4 sec (22.0-30.0)
[2024-10-28] MEDS: diphenhydrAMINE 50 MG/ML 1 ML VIAL IVP STA (21:11)
[2024-10-28 21:17] VITALS: BP 131/96; TEMP 97.8
[2024-10-28] MEDS: SODIUM CHLORIDE 0.9% 1,000 ML IV ONE (21:17)
[2024-10-28 21:45] VITALS: PULSE 90; RESP 20
== END 2024-10-28 21:45 | disposition home or self-care (01) ==
LOC: EC 16:27
DX: G89.29 Other chronic pain (principal); R10.9 Unspecified abdominal pain; R11.10 Vomiting, unspecified; Z88.6 Allergy status to analgesic agent; Z88.5 Allergy status to narcotic agent; Z91.011 Allergy to milk products; Z88.8 Allergy status to other drugs, medicaments and biological substances
CPT/HCPCS: 80053; 82150; 83690; 85025; 85610; 85730; 99284; 96374; 96375 ×2; J1200; J2405; J1308; 36415

== ENCOUNTER 2024-10-31 03:37 | Emergency (ER) | payer BC, MEDICARE ==
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
[2024-10-31 05:14] LABS: Basophils # (A) 0.04 10*3/uL (0.00-0.10); Basophils % (A) 0.4 %; Eosinophils # (A) 0.34 10*3/uL (0.04-0.35); Eosinophils % (A) 3.6 %; HCT 37.9 % (37.2-46.3); HGB 11.4 g/dL (12.0-15.0); Lymphocytes # (A) 1.29 10*3/uL (0.90-5.00); Lymphocytes % (A) 13.6 %; MCH 25.7 pg (27.0-32.0); MCHC 30.1 g/dL (32.0-37.0); MCV 85.6 fL (80.0-97.0); Mean Platelet Volume 9.3 fL (9.5-12.2); Monocytes # (A) 0.49 10*3/uL (0.20-1.00); Monocytes % (A) 5.2 %; Neutrophils # (A) 7.27 10*3/uL (1.80-7.70); Neutrophils % (A) 76.9 %; Platelet Count 366 10*3/uL (140-440); RBC 4.43 10*6/uL (4.10-5.20); RDW 15.8 % (11.5-14.5); WBC 9.46 10*3/uL (4.50-10.00)
[2024-10-31] MEDS: DICYCLOMINE 10 MG CAP PO STA (05:14)
[2024-10-31] MEDS: FAMOTIDINE 20 MG TAB PO STA (05:14)
[2024-10-31] MEDS: MAG HYDROX/AL HYDROX/SIMETH 30 ML CUP PO STA (05:15)
[2024-10-31] MEDS: LIDOCAINE VISCOUS 2% 15 ML CUP PO ONE (05:18)
--- NOTE | 2024-10-31 06:39 | CT ---
EXAMINATION TYPE: CT abdomen pelvis wo con DATE OF EXAM: 10/31/2024 COMPARISON: 07/02/2023 CLINICAL INDICATION: Female, 34 years old with history of states has mass in RLQ causing her pain; PH H, TECHNIQUE: CT scan of the abdomen and pelvis is performed without oral or IV contrast. CT DLP: mGycm CT CTDI: mGy Automated exposure control for dose reduction was used. FINDINGS: Within the limitations of a non-contrast study, the following observations are made. The lungs are clear. There are postsurgical changes of bariatric surgery. There is surgical absence of the gallbladder. There is no biliary ductal dilatation. There is no organomegaly of the liver, pancreas, spleen or adrenal glands. There is a stable 4.4 mm nonobstructing left renal calcification. There are no right renal calcificat ions. There is no hydronephrosis. The caliber of the abdominal aorta is normal and there is no retroperitoneal adenopathy or hemorrhage . The bowel loops are normal in caliber is no evidence of obstruction. No inflammatory changes are iden tified in the mesentery and there is no free intraperitoneal air or fluid. There are anastomotic sutu res in the descending colon. There is no pelvic mass, free fluid, abscess or adenopathy. There is surgical absence of the uterus. The osseous structures and soft tissues are unremarkable. IMPRESSION: 1. Stable 4.4 mm nonobstructing left renal calculus. 2. Multiple postsurgical changes as described above. 3. No acute changes within the abdomen or pelvis. [facility], , 10/31/2024 6:37 AM
[2024-10-31 06:56] VITALS: BP 114/85; PULSE 92; RESP 14; TEMP 97.7
[2024-10-31] MEDS: KETOROLAC 15 MG/ML 1 ML VIAL IM STA (07:10)
[2024-10-31] MEDS: diphenhydrAMINE 50 MG/ML 1 ML VIAL IM STA (07:11)
[2024-10-31 07:14] LABS: ALT 26 U/L (4-34); AST 22 U/L (14-36); African American GFR (CKD) >90 (>60 ml/min/1.73 sqM); Albumin 3.6 g/dL (3.5-5.0); Alkaline Phosphatase 102 U/L (38-126); Anion Gap 6 mmol/L; Blood Urea Nitrogen 14 mg/dL (7-17); Calcium 9.2 mg/dL (8.4-10.2); Carbon Dioxide 25 mmol/L (22-30); Chloride 109 mmol/L (98-107); Glucose 70 mg/dL (74-99); Lipase 213 U/L (23-300); Non-African American GFR(CKD) >90 (>60 ml/min/1.73 sqM); Potassium 4.9 mmol/L (3.5-5.1); Sodium 140 mmol/L (137-145); Total Bilirubin 0.4 mg/dL (0.2-1.3); Total Protein 6.1 g/dL (6.3-8.2)
== END 2024-10-31 07:27 | disposition left against medical advice (07) ==
LOC: EC 03:37
DX: G89.29 Other chronic pain (principal); R10.31 Right lower quadrant pain; K21.9 Gastro-esophageal reflux disease without esophagitis; G40.909 Epilepsy, unspecified, not intractable, without status epilepticus; Z53.29 Procedure and treatment not carried out because of patient's decision for other reasons; Z88.5 Allergy status to narcotic agent; Z88.6 Allergy status to analgesic agent; Z91.011 Allergy to milk products; Z88.8 Allergy status to other drugs, medicaments and biological substances
CPT/HCPCS: 36415; 74176; 80053; 83690; 85025; 99284

== ENCOUNTER 2024-11-04 18:08 | Emergency (ER) | payer BC, MEDICARE ==
[2024-11-04 18:13] VITALS: RESP 18; TEMP 97.7
[2024-11-04] MEDS: SODIUM CHLORIDE 0.9% 1,000 ML IV STA (20:14)
[2024-11-04 20:25] LABS: Basophils # (A) 0.02 10*3/uL (0.00-0.10); Basophils % (A) 0.3 %; HCT 33.8 % (37.2-46.3); HGB 10.3 g/dL (12.0-15.0); Lymphocytes # (A) 1.38 10*3/uL (0.90-5.00); Lymphocytes % (A) 22.8 %; MCH 25.7 pg (27.0-32.0); MCHC 30.5 g/dL (32.0-37.0); MCV 84.3 fL (80.0-97.0); Mean Platelet Volume 9.4 fL (9.5-12.2); Monocytes # (A) 0.61 10*3/uL (0.20-1.00); Monocytes % (A) 10.1 %; Neutrophils # (A) 3.71 10*3/uL (1.80-7.70); Neutrophils % (A) 61.5 %; Platelet Count 375 10*3/uL (140-440); RBC 4.01 10*6/uL (4.10-5.20); RDW 15.1 % (11.5-14.5); WBC 6.04 10*3/uL (4.50-10.00)
[2024-11-04 20:34] LABS: HCG,Qualitative Serum Not Detected
[2024-11-04 20:36] LABS: ALT 24 U/L (4-34); AST 22 U/L (14-36); African American GFR (CKD) >90 (>60 ml/min/1.73 sqM); Albumin 3.5 g/dL (3.5-5.0); Alkaline Phosphatase 106 U/L (38-126); Anion Gap 8 mmol/L; Blood Urea Nitrogen 11 mg/dL (7-17); Calcium 9.2 mg/dL (8.4-10.2); Carbon Dioxide 24 mmol/L (22-30); Chloride 105 mmol/L (98-107); Glucose 86 mg/dL (74-99); Lithium 0.8 mmol/L; Non-African American GFR(CKD) >90 (>60 ml/min/1.73 sqM); Potassium 4.6 mmol/L (3.5-5.1); Sodium 137 mmol/L (137-145); Total Bilirubin 0.3 mg/dL (0.2-1.3); Total Protein 5.8 g/dL (6.3-8.2)
[2024-11-04 21:04] LABS: Appearance,Urine Clear (Clear); Bilirubin,Urine Negative (Negative); Blood,Urine Negative (Negative); Color,Urine Colorless; Glucose,Urine (UA) Negative (Negative); Ketones,Urine Negative (Negative); Leukocyte Esterase,Urine Negative (Negative); Nitrite,Urine Negative (Negative); PH, Urine 6.5 (5.0-8.0); Protein,Urine Negative (Negative); Specific Gravity,Urine 1.016 (1.001-1.035); Urobilinogen,Urine <2.0 mg/dL (<2.0)
[2024-11-04 21:20] LABS: Amphetamine Screen,Urine Not Detected (NotDetected); Barbiturate Screen,Urine Detected (NotDetected); Benzodiazepines Screen,Urine Detected (NotDetected); Cocaine Screen,Urine Not Detected (NotDetected); Methadone Screen, Urine Not Detected (NotDetected); Opiate Screen,Urine Not Detected (NotDetected); Oxycodone Screen, Urine Not Detected (NotDetected); Phencyclidine Screen,Urine Not Detected (NotDetected); Tricyclic Antidepressant,Urine Detected (NotDetected); Urn Cannabinoid Scrn Detected (NotDetected)
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
[2024-11-04] MEDS: Acetaminophen-Codeine 300-30mg TAB PO STA (22:40)
[2024-11-04 22:44] VITALS: BP 112/68; PULSE 103
[2024-11-04] MEDS: HYDROcodone/APAP 5-325MG 1 EACH TAB PO STA (23:02)
[2024-11-04] MEDS: diphenhydrAMINE 25 MG CAP PO STA (23:03)
[2024-11-04] MEDS: MECLIZINE 12.5 MG TAB PO STA (23:09)
[2024-11-06 12:38] LABS: Lamotrigine (Lamictal) 1.8 ug/mL (2.0-15.0)
== END 2024-11-04 23:17 | disposition home or self-care (01) ==
LOC: EC 18:08
DX: G40.909 Epilepsy, unspecified, not intractable, without status epilepticus (principal); Z79.899 Other long term (current) drug therapy; Z88.6 Allergy status to analgesic agent; Z88.5 Allergy status to narcotic agent; Z88.8 Allergy status to other drugs, medicaments and biological substances; Z91.011 Allergy to milk products
CPT/HCPCS: 36415; 80053; 80171; 80175; 80178; 80306; 81003; 83605; 83735; 84703; 85025; 93005; 96360; 99284

== ENCOUNTER 2024-11-11 13:39 | Emergency (ER) | payer BC, MEDICARE ==
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
[2024-11-11] MEDS: ACETAMINOPHEN TAB 500 MG TAB PO STA (15:59)
[2024-11-11] MEDS: SODIUM CHLORIDE 0.9% 1,000 ML IV STA (16:00)
[2024-11-11 16:18] LABS: Basophils # (A) 0.03 10*3/uL (0.00-0.10); Basophils % (A) 0.3 %; Eosinophils # (A) 0.13 10*3/uL (0.04-0.35); Eosinophils % (A) 1.4 %; HCT 36.5 % (37.2-46.3); HGB 11.2 g/dL (12.0-15.0); Lymphocytes # (A) 1.31 10*3/uL (0.90-5.00); Lymphocytes % (A) 14.1 %; MCH 25.7 pg (27.0-32.0); MCHC 30.7 g/dL (32.0-37.0); MCV 83.7 fL (80.0-97.0); Mean Platelet Volume 8.7 fL (9.5-12.2); Monocytes # (A) 0.51 10*3/uL (0.20-1.00); Monocytes % (A) 5.5 %; Neutrophils # (A) 7.32 10*3/uL (1.80-7.70); Neutrophils % (A) 78.5 %; Platelet Count 508 10*3/uL (140-440); RBC 4.36 10*6/uL (4.10-5.20); WBC 9.32 10*3/uL (4.50-10.00)
[2024-11-11 16:34] LABS: Amorphous Sediment,Urine Rare /hpf; Appearance,Urine Cloudy (Clear); Bacteria,Urine Rare /hpf; Bilirubin,Urine Negative (Negative); Blood,Urine Negative (Negative); Color,Urine Colorless; Glucose,Urine (UA) Negative (Negative); Ketones,Urine Negative (Negative); Leukocyte Esterase,Urine Trace (Negative); Mucus,Urine Rare /hpf; Nitrite,Urine Negative (Negative); PH, Urine 7.5 (5.0-8.0); Protein,Urine Negative (Negative); RBC,Urine 1 /hpf (0-5); Specific Gravity,Urine 1.018 (1.001-1.035); Squamous Epithelial Cell,Urine 6 /hpf (0-4); Urobilinogen,Urine <2.0 mg/dL (<2.0); WBC,Urine 4 /hpf (0-5)
[2024-11-11 16:36] LABS: ALT 18 U/L (4-34); AST 20 U/L (14-36); African American GFR (CKD) >90 (>60 ml/min/1.73 sqM); Albumin 4.2 g/dL (3.5-5.0); Alkaline Phosphatase 118 U/L (38-126); Anion Gap 9 mmol/L; Blood Urea Nitrogen 3 mg/dL (7-17); Calcium 9.5 mg/dL (8.4-10.2); Carbon Dioxide 26 mmol/L (22-30); Chloride 104 mmol/L (98-107); Glucose 94 mg/dL (74-99); Lipase 133 U/L (23-300); Non-African American GFR(CKD) >90 (>60 ml/min/1.73 sqM); Potassium 4.4 mmol/L (3.5-5.1); Sodium 139 mmol/L (137-145); Total Bilirubin 0.5 mg/dL (0.2-1.3); Total Protein 6.6 g/dL (6.3-8.2)
[2024-11-11 17:04] VITALS: BP 152/83; PULSE 89; RESP 20; TEMP 98.1
== END 2024-11-11 16:59 | disposition home or self-care (01) ==
LOC: EC 13:39
DX: R10.13 Epigastric pain (principal); R10.11 Right upper quadrant pain; Z88.6 Allergy status to analgesic agent; Z88.5 Allergy status to narcotic agent; Z91.011 Allergy to milk products; Z88.8 Allergy status to other drugs, medicaments and biological substances
CPT/HCPCS: 36415; 80053; 81001; 81025; 83605; 83690; 85025; 96360; 99284

== ENCOUNTER 2024-11-16 18:51 | Emergency (ER) | payer BC, MEDICARE ==
[2024-11-16 18:58] VITALS: TEMP 98.4
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
[2024-11-16 19:44] LABS: Glucose,Whole Blood 92 mg/dL (70-110)
[2024-11-16 20:10] LABS: Appearance,Urine Cloudy (Clear); Bacteria,Urine Rare /hpf; Bilirubin,Urine Negative (Negative); Blood,Urine Negative (Negative); Color,Urine Light Yellow; Glucose,Urine (UA) Negative (Negative); Ketones,Urine Negative (Negative); Leukocyte Esterase,Urine Negative (Negative); Mucus,Urine Rare /hpf; Nitrite,Urine Negative (Negative); PH, Urine 6.5 (5.0-8.0); Protein,Urine Negative (Negative); RBC,Urine 1 /hpf (0-5); Specific Gravity,Urine 1.024 (1.001-1.035); Squamous Epithelial Cell,Urine 1 /hpf (0-4); Urobilinogen,Urine <2.0 mg/dL (<2.0); WBC,Urine 2 /hpf (0-5)
[2024-11-16] MEDS: LIDOCAINE VISCOUS 2% 15 ML CUP PO ONE (21:09)
[2024-11-16 21:58] VITALS: BP 130/89; PULSE 112; RESP 18
[2024-11-16] MEDS: ONDANSETRON 4 MG/2 ML VIAL IVP STA (22:29)
[2024-11-16] MEDS: PANTOPRAZOLE 40 MG/10 ML VIAL IVP STA (22:29)
[2024-11-16] MEDS: FAMOTIDINE 20 MG/2 ML VIAL IV STA (22:30)
[2024-11-16] MEDS: SODIUM CHLORIDE 0.9% 1,000 ML IV ONE (22:30)
--- NOTE | 2024-11-16 22:31 | XR ---
EXAMINATION TYPE: XR KUB DATE OF EXAM: 11/16/2024 8:49 PM COMPARISON: 10/26/2024 CLINICAL INDICATION: Female, 34 years old with history of abdominal pain, TECHNIQUE: XR KUB view(s) obtained. FINDINGS: There is a normal bowel gas pattern. Fecal debris is in the ascending colon. No free air is evident. No differential air-fluid levels are present Psoas margins are normal. No organomegaly is present. IMPRESSION: 1. No acute abdominal changes identified [facility], Workstation: [id number], 11/16/2024 10:29 PM
[2024-11-16] MEDS: HYDROmorphone 1 MG/ML 1 ML SYRINGE IM STA (22:36)
== END 2024-11-16 22:42 | disposition home or self-care (01) ==
LOC: EC 18:51
DX: R10.11 Right upper quadrant pain (principal); Z91.011 Allergy to milk products; Z88.6 Allergy status to analgesic agent; Z88.8 Allergy status to other drugs, medicaments and biological substances
CPT/HCPCS: 36415; 81001; 81025; 74018; 99284; 96372 ×2; J3360; J1171

== ENCOUNTER 2024-11-21 11:35 | Emergency (ER) | payer BC, MEDICARE ==
[2024-11-21 11:39] VITALS: TEMP 97.3
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
[2024-11-21 12:32] LABS: Basophils # (A) 0.04 10*3/uL (0.00-0.10); Basophils % (A) 0.8 %; Eosinophils # (A) 0.27 10*3/uL (0.04-0.35); Eosinophils % (A) 5.2 %; HCT 33.8 % (37.2-46.3); HGB 10.2 g/dL (12.0-15.0); Lymphocytes # (A) 1.12 10*3/uL (0.90-5.00); Lymphocytes % (A) 21.5 %; MCH 25.6 pg (27.0-32.0); MCHC 30.2 g/dL (32.0-37.0); MCV 84.7 fL (80.0-97.0); Mean Platelet Volume 9.4 fL (9.5-12.2); Monocytes # (A) 0.36 10*3/uL (0.20-1.00); Monocytes % (A) 6.9 %; Neutrophils # (A) 3.41 10*3/uL (1.80-7.70); Neutrophils % (A) 65.2 %; Platelet Count 289 10*3/uL (140-440); RBC 3.99 10*6/uL (4.10-5.20); RDW 15.9 % (11.5-14.5); WBC 5.22 10*3/uL (4.50-10.00)
[2024-11-21 12:47] LABS: ALT 18 U/L (4-34); AST 26 U/L (14-36); African American GFR (CKD) >90 (>60 ml/min/1.73 sqM); Albumin 3.4 g/dL (3.5-5.0); Alkaline Phosphatase 78 U/L (38-126); Anion Gap 7 mmol/L; Blood Urea Nitrogen 14 mg/dL (7-17); Calcium 9.3 mg/dL (8.4-10.2); Carbon Dioxide 24 mmol/L (22-30); Chloride 107 mmol/L (98-107); Glucose 75 mg/dL (74-99); Lithium 0.6 mmol/L; Non-African American GFR(CKD) >90 (>60 ml/min/1.73 sqM); Potassium 4.7 mmol/L (3.5-5.1); Sodium 138 mmol/L (137-145); Total Bilirubin 0.4 mg/dL (0.2-1.3); Total Protein 5.6 g/dL (6.3-8.2)
[2024-11-21] MEDS: levETIRAcetam IV 500 MG/5 ML VIAL IVP STA (13:13)
[2024-11-21 13:15] VITALS: RESP 16
[2024-11-21] MEDS: CYCLOBENZAPRINE 5 MG TAB PO STA (14:02)
[2024-11-21 14:11] VITALS: BP 130/68; PULSE 68
[2024-11-23 09:19] LABS: Levetiracetam (Keppra) 7.5 ug/mL (3.0-60.0)
[2024-11-23 09:26] LABS: Lamotrigine (Lamictal) 1.7 ug/mL (2.0-15.0)
== END 2024-11-21 14:10 | disposition home or self-care (01) ==
LOC: EC 11:35
DX: G40.909 Epilepsy, unspecified, not intractable, without status epilepticus (principal); Z88.5 Allergy status to narcotic agent; Z88.6 Allergy status to analgesic agent; Z88.8 Allergy status to other drugs, medicaments and biological substances; Z91.011 Allergy to milk products
CPT/HCPCS: 36415; 93005; 80053; 80175; 80177; 80178; 83735; 85025; 99284; 96374; J1953

== ENCOUNTER 2024-11-28 10:49 | Emergency (ER) | payer BC, MEDICARE ==
[2024-11-28 10:53] VITALS: RESP 18
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
--- NOTE | 2024-11-28 11:21 | XR ---
EXAMINATION TYPE: XR chest 1V portable DATE OF EXAM: 11/28/2024 COMPARISON: 04/23/2024 CLINICAL INDICATION: Female, 34 years old with history of Short of breath; TECHNIQUE: Single frontal view of the chest is obtained. FINDINGS: There is no focal air space opacity, pleural effusion, or pneumothorax seen. The cardiac silhouette size is within normal limits. The osseous structures are intact. IMPRESSION: No acute process. [facility], , 11/28/2024 11:18 AM
[2024-11-28] MEDS ORDERED: FUROSEMIDE 10 MG/ML 4 ML VIAL IV SCH (11:30)
[2024-11-28 11:42] VITALS: BP 123/83; PULSE 96; TEMP 98
[2024-11-28] MEDS ORDERED: NITROGLYCERIN OINT 1 INCH/GM PACKET TOPICAL SCH (12:00)
== END 2024-11-28 12:13 | disposition home or self-care (01) ==
LOC: EC 10:49
DX: S50.02XA Contusion of left elbow, initial encounter (principal); S50.01XA Contusion of right elbow, initial encounter; S20.212A Contusion of left front wall of thorax, initial encounter; Z88.6 Allergy status to analgesic agent; Z91.011 Allergy to milk products; Z88.8 Allergy status to other drugs, medicaments and biological substances; M25.562 Pain in left knee; M25.561 Pain in right knee; W01.0XXA Fall on same level from slipping, tripping and stumbling without subsequent striking against object, initial encounter
CPT/HCPCS: 71045; 99283

== ENCOUNTER 2025-01-17 18:53 | Emergency (ER) | payer BC, MEDICARE ==
[2025-01-17 19:02] VITALS: TEMP 98.2
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
--- NOTE | 2025-01-17 19:56 | XR ---
EXAMINATION TYPE: XR KUB DATE OF EXAM: 01/17/2025 7:51 PM COMPARISON: None. CLINICAL INDICATION: Female, 34 years old with history of constipation, TECHNIQUE: Single view of the abdomen. FINDINGS: Small bowel demonstrates no evidence for dilatation or air fluid levels. Cholecystectomy clips noted in place. Gas and fecal material is seen in non-distended colon. No convincing evidence for pneumoperitoneum. No unusual calcifications. The lung bases are clear. The osseous structures are intact. IMPRESSION: 1. Overall nonobstructive bowel gas pattern. [facility], , 01/17/2025 7:53 PM
[2025-01-17] MEDS: ONDANSETRON 4 MG/2 ML VIAL IVP STA (20:32)
[2025-01-17] MEDS: SODIUM CHLORIDE 0.9% 1,000 ML IV STA (20:32)
[2025-01-17] MEDS: diphenhydrAMINE 50 MG/ML 1 ML VIAL IVP STA (20:47)
[2025-01-17 20:52] LABS: Basophils # (A) 0.05 10*3/uL (0.00-0.10); Basophils % (A) 0.7 %; Eosinophils # (A) 0.27 10*3/uL (0.04-0.35); Eosinophils % (A) 3.9 %; HCT 37.6 % (37.2-46.3); HGB 11.4 g/dL (12.0-15.0); Lymphocytes # (A) 1.66 10*3/uL (0.90-5.00); Lymphocytes % (A) 23.8 %; MCH 26.5 pg (27.0-32.0); MCHC 30.3 g/dL (32.0-37.0); MCV 87.2 fL (80.0-97.0); Monocytes # (A) 0.42 10*3/uL (0.20-1.00); Monocytes % (A) 6.0 %; Neutrophils # (A) 4.57 10*3/uL (1.80-7.70); Neutrophils % (A) 65.5 %; Platelet Count 353 10*3/uL (140-440); RBC 4.31 10*6/uL (4.10-5.20); RDW 16.6 % (11.5-14.5); WBC 6.98 10*3/uL (4.50-10.00)
[2025-01-17 20:56] LABS: ALT 28 U/L (4-34); AST 26 U/L (14-36); African American GFR (CKD) >90 (>60 ml/min/1.73 sqM); Albumin 4.1 g/dL (3.5-5.0); Alkaline Phosphatase 96 U/L (38-126); Anion Gap 7 mmol/L; Blood Urea Nitrogen 10 mg/dL (7-17); Calcium 9.4 mg/dL (8.4-10.2); Carbon Dioxide 27 mmol/L (22-30); Chloride 107 mmol/L (98-107); Glucose 87 mg/dL (74-99); Non-African American GFR(CKD) >90 (>60 ml/min/1.73 sqM); Potassium 4.7 mmol/L (3.5-5.1); Sodium 141 mmol/L (137-145); Total Protein 6.4 g/dL (6.3-8.2)
[2025-01-17] MEDS: MAGNESIUM CITRATE 296 ML BOTTLE PO ONE (21:24)
[2025-01-17 21:41] VITALS: BP 136/73; PULSE 64; RESP 16
== END 2025-01-17 21:42 | disposition home or self-care (01) ==
LOC: EC 18:53
DX: K59.00 Constipation, unspecified (principal); Z88.5 Allergy status to narcotic agent; Z88.6 Allergy status to analgesic agent; Z91.011 Allergy to milk products; Z88.8 Allergy status to other drugs, medicaments and biological substances
CPT/HCPCS: 36415; 80053; 83605; 85025; 74018; 99284; 96374; 96375; 96361; J1200; J2405

== ENCOUNTER 2025-01-23 13:00 | Emergency (ER) | payer BC, MEDICARE ==
[2025-01-23 13:06] VITALS: TEMP 97.5
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
[2025-01-23 13:44] LABS: Basophils # (A) 0.03 10*3/uL (0.00-0.10); Basophils % (A) 0.5 %; Eosinophils # (A) 0.12 10*3/uL (0.04-0.35); Eosinophils % (A) 1.9 %; HCT 37.3 % (37.2-46.3); HGB 11.6 g/dL (12.0-15.0); Lymphocytes # (A) 1.19 10*3/uL (0.90-5.00); Lymphocytes % (A) 18.8 %; MCH 26.7 pg (27.0-32.0); MCHC 31.1 g/dL (32.0-37.0); MCV 85.9 fL (80.0-97.0); Monocytes # (A) 0.41 10*3/uL (0.20-1.00); Monocytes % (A) 6.5 %; Neutrophils # (A) 4.57 10*3/uL (1.80-7.70); Neutrophils % (A) 72.0 %; Platelet Count 359 10*3/uL (140-440); RBC 4.34 10*6/uL (4.10-5.20); RDW 16.2 % (11.5-14.5); WBC 6.34 10*3/uL (4.50-10.00)
[2025-01-23 14:03] LABS: Bilirubin,Urine Negative (Negative); Blood,Urine Negative (Negative); Color,Urine Light Yellow; Glucose,Urine (UA) Negative (Negative); Ketones,Urine Negative (Negative); Leukocyte Esterase,Urine Negative (Negative); Nitrite,Urine Negative (Negative); PH, Urine 6.0 (5.0-8.0); Protein,Urine Negative (Negative); Specific Gravity,Urine 1.024 (1.001-1.035); Urobilinogen,Urine <2.0 mg/dL (<2.0)
[2025-01-23] MEDS: ONDANSETRON 4 MG/2 ML VIAL IVP STA (14:29)
[2025-01-23] MEDS: LACTATED RINGERS 1,000 ML IV ONE (14:30)
--- NOTE | 2025-01-23 14:30 | XR ---
EXAMINATION TYPE: XR KUB DATE OF EXAM: 01/23/2025 COMPARISON: AP radiograph 01/17/2025, CT abdomen and pelvis 10/31/2024 HISTORY: Vomiting and constipation TECHNIQUE: Single supine KUB image of the abdomen is obtained FINDINGS: Small bowel demonstrates no evidence for dilatation or air fluid levels. Gas and fecal material is seen in non-distended colon. No convincing evidence for pneumoperitoneum. No unusual calcifications. Cholecystectomy clips in the right upper quadrant. Suture material identified within the left upper q uadrant corresponding to Patrick-en-Y gastric bypass. The lung bases are clear. Cervical stimulator device giacomo pack overlies the left chest. The osseous structures are intact. IMPRESSION: Overall nonobstructive bowel gas pattern. Mild colonic stool burden. [facility], , 01/23/2025 2:28 PM
[2025-01-23] MEDS: HYDROcodone/APAP 5-325MG 1 EACH TAB PO STA (14:51)
[2025-01-23 15:10] LABS: ALT 33 U/L (4-34); AST 26 U/L (14-36); African American GFR (CKD) >90 (>60 ml/min/1.73 sqM); Albumin 4.0 g/dL (3.5-5.0); Alkaline Phosphatase 106 U/L (38-126); Anion Gap 11 mmol/L; Blood Urea Nitrogen 6 mg/dL (7-17); Calcium 9.7 mg/dL (8.4-10.2); Carbon Dioxide 20 mmol/L (22-30); Chloride 107 mmol/L (98-107); Glucose 81 mg/dL (74-99); Non-African American GFR(CKD) >90 (>60 ml/min/1.73 sqM); Potassium 4.3 mmol/L (3.5-5.1); Sodium 138 mmol/L (137-145); Total Protein 6.4 g/dL (6.3-8.2)
[2025-01-23 15:32] VITALS: BP 128/86; PULSE 83; RESP 17
== END 2025-01-23 15:32 | disposition home or self-care (01) ==
LOC: EC 13:00
DX: R10.13 Epigastric pain (principal); R11.2 Nausea with vomiting, unspecified; G89.29 Other chronic pain; Z88.5 Allergy status to narcotic agent; Z88.6 Allergy status to analgesic agent; Z91.011 Allergy to milk products; Z88.8 Allergy status to other drugs, medicaments and biological substances
CPT/HCPCS: 36415; 80053; 85025; 81003; 74018; 99284; 96374; 96361; J2405

== ENCOUNTER 2025-02-11 09:33 | Emergency (ER) | payer BC, MEDICARE ==
[2025-02-11 09:38] VITALS: TEMP 97.6
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
[2025-02-11] MEDS: HYDROcodone/APAP 10-325MG 1 EACH TAB PO ONE (10:35)
[2025-02-11 10:58] LABS: ALT 43 U/L (4-34); AST 31 U/L (14-36); African American GFR (CKD) >90 (>60 ml/min/1.73 sqM); Albumin 3.9 g/dL (3.5-5.0); Alkaline Phosphatase 91 U/L (38-126); Anion Gap 6 mmol/L; Blood Urea Nitrogen 6 mg/dL (7-17); Calcium 9.4 mg/dL (8.4-10.2); Carbon Dioxide 27 mmol/L (22-30); Chloride 105 mmol/L (98-107); Glucose 80 mg/dL (74-99); Lipase 196 U/L (23-300); Non-African American GFR(CKD) >90 (>60 ml/min/1.73 sqM); Potassium 4.9 mmol/L (3.5-5.1); Sodium 138 mmol/L (137-145); Total Protein 6.3 g/dL (6.3-8.2)
[2025-02-11 11:05] LABS: Bilirubin,Urine Negative (Negative); Blood,Urine Negative (Negative); Color,Urine Colorless; Glucose,Urine (UA) Negative (Negative); Ketones,Urine Negative (Negative); Leukocyte Esterase,Urine Negative (Negative); Nitrite,Urine Negative (Negative); PH, Urine 7.5 (5.0-8.0); Protein,Urine Negative (Negative); Specific Gravity,Urine 1.008 (1.001-1.035); Urobilinogen,Urine <2.0 mg/dL (<2.0)
--- NOTE | 2025-02-11 11:19 | CT ---
EXAMINATION TYPE: CT abdomen pelvis wo con DATE OF EXAM: 02/11/2025 11:02 AM COMPARISON: 10/31/2024 CLINICAL INDICATION: Female, 34 years old with history of R flank/lower ab pain, hx recent kidney sto ne, rigbt flank/lower abd pain, recent kidney stone TECHNIQUE: Axial images with sagittal coronal reformats. Examination of the solid and hollow viscera is limited given the lack of contrast. CT DLP: 650.4 mGycm, Automated exposure control for dose reduction was used. FINDINGS: LUNG BASES: No evidence for nodule. No evidence for infiltrate. LIVER/GB: The gallbladder is surgically absent. No space-occupying hepatic lesion. PANCREAS: No pancreatic mass identified. No inflammatory process seen. SPLEEN: No evidence for splenomegaly. No intrasplenic lesions seen. ADRENALS: No adrenal nodules identified. No evidence for thickening. KIDNEYS: No evidence for renal mass. 3 mm nonobstructing calculus mid pole left kidney. No additional calculi seen. No hydronephrosis. BOWEL: Appendix has a normal appearance. No evidence of bowel obstruction. No inflammatory process. Lymph nodes: No evidence for adenopathy greater than 1 cm. Abdominal aorta: Atheromatous changes seen. No evidence for aneurysm. Genital organs: No significant abnormality. Other: No significant abnormality. IMPRESSION: No acute process seen to account for patient's symptoms. [facility], , 02/11/2025 11:16 AM
[2025-02-11 11:24] LABS: Basophils # (A) 0.03 10*3/uL (0.00-0.10); Basophils % (A) 0.4 %; Eosinophils # (A) 0.21 10*3/uL (0.04-0.35); Eosinophils % (A) 2.6 %; HCT 36.3 % (37.2-46.3); HGB 11.3 g/dL (12.0-15.0); Lymphocytes # (A) 1.26 10*3/uL (0.90-5.00); Lymphocytes % (A) 15.8 %; MCH 27.6 pg (27.0-32.0); MCHC 31.1 g/dL (32.0-37.0); MCV 88.5 fL (80.0-97.0); Monocytes # (A) 0.52 10*3/uL (0.20-1.00); Monocytes % (A) 6.5 %; Neutrophils # (A) 5.94 10*3/uL (1.80-7.70); Neutrophils % (A) 74.3 %; Platelet Count 348 10*3/uL (140-440); RBC 4.10 10*6/uL (4.10-5.20); RDW 16.3 % (11.5-14.5); WBC 7.99 10*3/uL (4.50-10.00)
[2025-02-11] MEDS: levETIRAcetam IV 500 MG/5 ML VIAL IVP STA (11:24)
[2025-02-11] MEDS: LIDOCAINE 4% PATCH TOPICAL ONE (12:12)
[2025-02-11 12:23] VITALS: BP 120/68; PULSE 90; RESP 16
== END 2025-02-11 12:23 | disposition home or self-care (01) ==
LOC: EC 09:33
DX: R10.31 Right lower quadrant pain (principal); Z88.5 Allergy status to narcotic agent; Z88.6 Allergy status to analgesic agent; Z91.011 Allergy to milk products; Z88.8 Allergy status to other drugs, medicaments and biological substances
CPT/HCPCS: 36415; 93005; 80053; 83605; 83690; 85025; 81003; 81025; 74176; 99285; 96374; J1953